=== PATIENT | male | born 1955 | race Two or more races ===

== ENCOUNTER 2016-07-30 01:27 | Inpatient (IN) | payer OTHER ==
[2016-07-30] VITALS (27 sets, daily range): BP systolic 75–140; BP diastolic 45–80
[~2016-07-30] VITALS: Ht 172.7 cm; Wt 68.0 kg
[~2016-07-30 01:27] MED LIST: ACIDOPHILUS1 EAC4 GT; ALBUTEROL2.5 MG/3 M INH; AMANTADINE100 M2 ORAL; AMANTADINE50 MG/5 ML GT; ARTIFICIAL TEAR15 M7 BOTH EYES; ARTIFICIAL TEAR15 ML BOTH EYES; ASCORBIC ACID500 MG GT; ASPIR 8181 MG ORAL; ATROVENT HFA12.9 GM HHN; BISACODYL5 MG ORAL; BISACODYL5 MG RECTAL; COLACE100 MG GT; COLISTIN150 MG INH; DOCUSATE SODIU250 MG GT; DULCOLAX10 MG RC; DUONEB 0.5-3(2.53 ML HHN; FAMOTIDINE20 MG GT; FOLIC ACID1 MG GT; HUMALOG100 UNIT/4 SUBQ; HYDRALAZINE HCL10 MG GT; IMODIUM2 MG GT; INSULIN; INVANZ1 GM IVPB; LACTINEX CHEWA1 EACH GT; LOVENOX10 M4 SUBQ; MEROPENEM500 MG IV; METFORMIN HCL500 M1 GT; MIDODRINE HCL10 MG GT; MILK OF MA400 MG/51 GT; MILK OF MA400 MG/51 ORAL; MIRALAX17 G2 GT; MIRALAX17 GM ORAL; MULTI-DELYN237 ML GT; MYLANTA30 M1 GT; NORCO 10-325 T1 EACH GT; NORCO 10/3251 EA ORAL; NORVASC5 MG GT; NOVOLOG100 UNITS1 SUBQ; OMEPRAZOLE20 M3 GT; OSTERA TABLET1 EACH GT; PERIDEX 0.12% O16 OZ MT; POTASSIUM CHLO20 ME3 GT; PREDNISONE20 MG GT; RESTORIL15 MG ORAL; SIMVASTATIN40 MG GT; TRAMADOL HCL50 MG GT; TYLENOL EXTRA500 MG GT; TYLENOL325 MG GT; TYLENOL650 MG/20. ORAL; UTI-STAT L3875 MG/31 GT; VANCOMYCIN1 GM/2502 IVPB; VANCOMYCIN250 MG/5 M ORAL; VITAMIN B-1100 MG GT; VITAMIN C500 M1 GT; VITAMIN C500 M1 ORAL; VITAMIN D1000 UNI1 GT; ZANTAC150 MG GT; ZINC SULFATE220 M1 GT; ZOVIRAX400 MG ORAL
[2016-07-30] MEDS ORDERED: LORAZEPAM2 MG ORAL (01:40)
[2016-07-30] MEDS ORDERED: ASPIR 8181 MG ORAL (01:40)
[2016-07-30] MEDS ORDERED: POTASSIUM30 MEQ/22. GT (01:40)
[2016-07-30] MEDS ORDERED: SIMVASTATIN40 MG ORAL (01:40)
[2016-07-30] MEDS ORDERED: ZOFRAN4 M3 ORAL (01:40)
[2016-07-30] MEDS ORDERED: NS 1000ml 1,600 ML IVLG ONE (01:45)
[2016-07-30] MEDS ORDERED: Aztreonam Inj 1 GM in NS 55 ML IV ONE (01:45)
[2016-07-30 02:10] LABS: MEAN CORPUSCULAR HEMOGLOBIN 27.8 PG (27.0-31.0); MEAN CORPUSCULAR HGB CONC 31.9 G/DL (32.0-36.0); MEAN CORPUSCULAR VOLUME 87 FL (80-99); MEAN PLATELET VOLUME 10.2 FL (6.5-10.1); PLATELET COUNT 319 K/UL (150-450); RED BLOOD COUNT 4.39 M/UL (4.70-6.10); RED CELL DISTRIBUTION WIDTH 14.2 % (11.6-14.8)
[2016-07-30 02:16] LABS: WHITE BLOOD COUNT 32.2 K/UL (4.8-10.8)
[2016-07-30 02:17] LABS: INR 1.5 (0.9-1.1); PROTHROMBIN TIME 15.7 SEC (9.30-11.50)
[2016-07-30 02:23] LABS: ALANINE AMINOTRANSFERASE 28 U/L (3-41); ALBUMIN/GLOBULIN RATIO 0.6 (1.0-2.7); ANION GAP 22 (5-15); ASPARTATE AMINO TRANSFERASE 42 U/L (5-40); CALCIUM 8.7 mg/dL (8.6-10.2); CARBON DIOXIDE 20 mEQ/L (20-30); CHLORIDE 93 mEQ/L (98-107); CREATININE 0.9 mg/dL (0.7-1.2); GLOMERULAR FILTRATION RATE > 60 mL/min (>60); HEMOLYSIS 3; LIPASE 24 U/L (< 60); POTASSIUM 2.8 mEQ/L (3.4-4.9); SODIUM 135 mEQ/L (135-145); TOTAL PROTEIN 7.2 g/dL (6.6-8.7)
[2016-07-30 02:28] LABS: REFLEX LACTIC ACID YES OR NO YES
[2016-07-30 02:38] LABS: TROPONIN I < 0.30 ng/mL (<=0.30)
[2016-07-30 03:14] LABS: APPEARANCE,URINE CLEAR; KETONES,URINE NEGATIVE (NEGATIVE); LEUKOCYTE ESTERASE ,URINE 1+ (NEGATIVE); NITRITE,URINE NEGATIVE (NEGATIVE); PH,URINE 7 (4.5-8.0); PROTEIN,URINE NEGATIVE (NEGATIVE); UROBILINOGEN,URINE NORMAL MG/DL (0.0-1.0)
[2016-07-30 03:20] LABS: BACTERIA,URINE MODERATE /HPF; CALCIUM OXALATE CRYSTALS,UR MODERATE /LPF; SQUAMOUS EPITHELIAL CELL,UR MODERATE /LPF (NONE/OCC)
[2016-07-30 03:25] LABS: BAND NEUTROPHILS % (MANUAL) 29 % (0-8); LYMPHOCYTES % (MANUAL) 11 % (20-45); NEUTROPHILS % (MANUAL) 58 % (45-75); TOTAL CELLS COUNTED 100
[2016-07-30 03:26] LABS: BASOPHILS % (MANUAL) 0 % (0-2); EOSINOPHILS % (MANUAL) 0 % (0-3); PLATELET ESTIMATE ADEQUATE; PLATELET MORPHOLOGY NORMAL
[2016-07-30] MEDS ORDERED: DOPamine 400mg/250ml 250 ML IV SCH (03:45)
[2016-07-30 04:07] LABS: CKMB 1.4 ng/mL (< 6.7)
--- NOTE | 2016-07-30 04:10 | Emergency Room Report ---
History of Present Illness General Chief Complaint: Fever Source: Medical Record, EMS Present Illness HPI Patient presents from nursing facility with complaints of cough And abnormal workup In route they received a phone call that the patient had become more hypotensive and appeared to be in respiratory distress Patient has multiple comorbidities, is on a tracheostomy and vent dependent At this time the patient is not verbal History of present illness is significantly limited No reports of any vomiting or diarrhea patient appears to have reports of abnormal chest x-ray in the file Unknown regarding fever Unknown regarding vomiting or diarrhea Allergies: Coded Allergies: OXYTETRACYCLINE (Unverified Allergy, Unknown, 09/05/13) PENICILLINS (Unverified Allergy, Unknown, 09/05/13) Uncoded Allergies: PLASTIC TAPE (Allergy, Mild, ITCHINESS, 08/08/15) Patient History Limited by: medical condition Past Medical History: see triage record Pertinent Family History: unable to obtain Reviewed Nursing Documentation: PMH: Agreed, PSxH: Agreed Nursing Documentation-PMH Past Medical History: No History, Except For Hx Hypertension: Yes Hx COPD: Yes - Trach, Vent dependent Hx Diabetes: Yes - DM2, foot ulcers Hx Cancer: No Hx Gastrointestinal Problems: Yes - GERD Hx Dialysis: No - ESRD Hx Transient Ischemic Attacks: Yes Hx Dementia: Yes Hx Parkinson's Disease: Yes Review of Systems All Other Systems: negative except mentioned in HPI Physical Exam Vital Signs Date Time Temp Pulse Resp B/P Pulse Ox O2 Delivery O2 Flow Rate FiO2 07/30/16 01:13 100.0 113 12 65/43 92 Mechanical Ventilator 07/30/16 01:30 60 Sp02 EP Interpretation: reviewed, abnormal - 92% is a low oxygenation, on 100% FiO2 the patient is saturating at 98% which is normal General Appearance: mild distress Head: normocephalic, atraumatic Eyes: bilateral eye PERRL ENT: dry mucus membranes Neck: supple, other - Tracheostomy in place no crepitus Respiratory: crackles - Crackles diffusely mild retractions are noted, Cardiovascular #1: tachycardia Gastrointestinal: soft, no mass, other - Feeding tube in place Musculoskeletal: other - Patient is contracted, muscle exam is difficult to obtain Neurologic: other - Patient is responsive to physical stimuli otherwise nonverbal not following commands, Skin: other - Rash in both inguinal areas, also he rash noted Lymphatic: no adenopathy Procedures Central Line Central Line : Consent: Emergent Central Line Lumen: triple Maximal Sterile Barrier Tech: yes cap, yes mask, yes sterile gown, yes sterile gloves, yes large sterile sheet, yes hand hygiene, yes chlorhexidine prep Central Line Postion: femoral (R) Anesthesia: Lidocaine cc's of anesthesia: 2 Complications: none Central Line Post Position: sutured Attempts: One Patient Tolerated: Well Complications: None Medical Decision Making Diagnostic Impression: Primary Impression: Severe sepsis Additional Impressions: UTI (urinary tract infection) Pneumonia ER Course Patient has findings of fever, hypotension and high white blood cell count meeting criteria for severe sepsis Aggressive IV hydration with antibiotic coverage is performed Patient required central line placement please refer to her know that At this time patient remains critical chest x-ray does show significant infiltrate on the left side And patient admitted in critical condition to the ICU Admitting physician was notified upon arrival Labs Test 07/30/16 01:50 07/30/16 02:58 07/30/16 03:10 White Blood Count 32.2 K/UL (4.8-10.8) Red Blood Count 4.39 M/UL (4.70-6.10) Hemoglobin 12.2 G/DL (14.2-18.0) Hematocrit 38.3 % (42.0-52.0) Mean Corpuscular Volume 87 FL (80-99) Mean Corpuscular Hemoglobin 27.8 PG (27.0-31.0) Mean Corpuscular Hemoglobin Concent 31.9 G/DL (32.0-36.0) Red Cell Distribution Width 14.2 % (11.6-14.8) Platelet Count 319 K/UL (150-450) Mean Platelet Volume 10.2 FL (6.5-10.1) Neutrophils (%) (Auto) % (45.0-75.0) Lymphocytes (%) (Auto) % (20.0-45.0) Monocytes (%) (Auto) % (1.0-10.0) Eosinophils (%) (Auto) % (0.0-3.0) Basophils (%) (Auto) % (0.0-2.0) Differential Total Cells Counted 100 Neutrophils % (Manual) 58 % (45-75) Lymphocytes % (Manual) 11 % (20-45) Monocytes % (Manual) 2 % (1-10) Eosinophils % (Manual) 0 % (0-3) Basophils % (Manual) 0 % (0-2) Band Neutrophils 29 % (0-8) Platelet Estimate Adequate Platelet Morphology Normal Red Blood Cell Morphology Normal Prothrombin Time 15.7 SEC (9.30-11.50) Prothromb Time International Ratio 1.5 (0.9-1.1) Activated Partial Thromboplast Time 34 SEC (23-33) Sodium Level 135 mEQ/L (135-145) Potassium Level 2.8 mEQ/L (3.4-4.9) Chloride Level 93 mEQ/L (98-107) Carbon Dioxide Level 20 mEQ/L (20-30) Anion Gap 22 (5-15) Blood Urea Nitrogen 16 mg/dL (7-23) Creatinine 0.9 mg/dL (0.7-1.2) Estimat Glomerular Filtration Rate > 60 mL/min (>60) Glucose Level 137 mg/dL (74-106) Lactic Acid Level 5.00 mmol/L (0.66-2.22) 3.40 mmol/L (0.66-2.22) Calcium Level 8.7 mg/dL (8.6-10.2) Total Bilirubin 0.6 mg/dL (0.0-1.2) Aspartate Amino Transf (AST/SGOT) 42 U/L (5-40) Alanine Aminotransferase (ALT/SGPT) 28 U/L (3-41) Alkaline Phosphatase 415 U/L (40-129) Total Creatine Kinase 39 U/L (38-174) Creatine Kinase MB 1.4 ng/mL (< 6.7) Creatine Kinase MB Relative Index 3.5 Troponin I < 0.30 ng/mL (<=0.30) Pro-B-Type Natriuretic Peptide 1187 pg/mL (0-125) Total Protein 7.2 g/dL (6.6-8.7) Albumin 2.9 g/dL (3.5-5.2) Globulin 4.3 g/dL Albumin/Globulin Ratio 0.6 (1.0-2.7) Lipase 24 U/L (< 60) Urine Color Pale yellow Urine Appearance Clear Urine pH 7 (4.5-8.0) Urine Specific [place] 1.005 (1.005-1.035) Urine Protein Negative (NEGATIVE) Urine Glucose (UA) Negative (NEGATIVE) Urine Ketones Negative (NEGATIVE) Urine Occult Blood 2+ (NEGATIVE) Urine Nitrite Negative (NEGATIVE) Urine Bilirubin Negative (NEGATIVE) Urine Urobilinogen Normal MG/DL (0.0-1.0) Urine Leukocyte Esterase 1+ (NEGATIVE) Urine RBC 2-4 /HPF (0 - 0) Urine WBC 2-4 /HPF (0 - 0) Urine Squamous Epithelial Cells Moderate /LPF (NONE/OCC) Urine Calcium Oxalate Crystals Moderate /LPF (NONE) Urine Bacteria Moderate /HPF (NONE) Rhythm Strip Diag. Results EP Interpretation: yes Rate: 88 Rhythm: NSR, no PVC's, no ectopy Chest X-Ray Diagnostic Results EP Interpretation: Yes Findings: no pneumothorax, other - Left-sided infiltrate, heart size normal Number of Views: 1 Last Vital Signs Date Time Temp Pulse Resp B/P Pulse Ox O2 Delivery O2 Flow Rate FiO2 07/30/16 03:45 92/55 07/30/16 02:43 100.0 89 19 99 Mechanical Ventilator 60 Status: improved Disposition: ADMITTED INPATIENT Condition: Critical Referrals: ESTEFANY RUBI (PCP) KAVITA BARNES D.O. July 30, 2016 04:10
[2016-07-30] MEDS ORDERED: Vancomycin 1 GM in D5W 275 ML IVPB SCH ×2 (06:45→10:45)
[2016-07-30] MEDS ORDERED: Albuterol ud Inhalation HHN PRN (07:30)
[2016-07-30] MEDS ORDERED: Vancomycin 750mg/D5W 275ml IVPB ONE ×2 (08:00)
[2016-07-30 08:04] LABS: MEAN CORPUSCULAR HEMOGLOBIN 28.3 PG (27.0-31.0); MEAN CORPUSCULAR HGB CONC 32.3 G/DL (32.0-36.0); MEAN CORPUSCULAR VOLUME 88 FL (80-99); MEAN PLATELET VOLUME 8.2 FL (6.5-10.1); PLATELET COUNT 245 K/UL (150-450); RED BLOOD COUNT 3.87 M/UL (4.70-6.10)
[2016-07-30 08:08] LABS: WHITE BLOOD COUNT 29.4 K/UL (4.8-10.8)
[2016-07-30 08:16] LABS: ALANINE AMINOTRANSFERASE 23 U/L (3-41); ALBUMIN/GLOBULIN RATIO 0.7 (1.0-2.7); ANION GAP 16 (5-15); ASPARTATE AMINO TRANSFERASE 36 U/L (5-40); CALCIUM 7.5 mg/dL (8.6-10.2); CARBON DIOXIDE 20 mEQ/L (20-30); CHLORIDE 107 mEQ/L (98-107); CREATININE 0.7 mg/dL (0.7-1.2); GLOMERULAR FILTRATION RATE > 60 mL/min (>60); HEMOLYSIS 15; POTASSIUM 2.9 mEQ/L (3.4-4.9); SODIUM 143 mEQ/L (135-145); TOTAL PROTEIN 5.7 g/dL (6.6-8.7)
[2016-07-30 08:23] LABS: THYROID STIMULATING HORMONE 0.601 uIU/mL (0.300-4.500)
[2016-07-30] MEDS ORDERED: Amantadine 100mg cap ORAL ONE (08:30)
[2016-07-30] MEDS: KCl 10% 40mEq/30ml liquid GT SCH (08:45)
[2016-07-30] MEDS: Midodrine 10mg tab GT SCH ×3 (08:45→17:34)
[2016-07-30] MEDS: D5 1/2NS 1,000 ML IV SCH ×2 (08:52→17:47)
[2016-07-30] MEDS ORDERED: Aspirin Baby 81mg ORAL SCH (09:00)
[2016-07-30] MEDS ORDERED: Docusate 100mg cap ORAL SCH (09:00)
[2016-07-30] MEDS ORDERED: Aspirin Baby 81mg GT SCH (09:22)
[2016-07-30] MEDS: Docusate 100mg/10ml Liq GT SCH (09:30)
[2016-07-30] MEDS ORDERED: LORazepam 1mg tab GT ONE (09:30)
[2016-07-30] MEDS ORDERED: Milk of Magnesia 30ml Ud GT ONE (09:30)
[2016-07-30] MEDS ORDERED: LORazepam 1mg tab ORAL PRN (10:15)
[2016-07-30 10:22] LABS: BAND NEUTROPHILS % (MANUAL) 13 % (0-8); BASOPHILS % (MANUAL) 0 % (0-2); EOSINOPHILS % (MANUAL) 0 % (0-3); LYMPHOCYTES % (MANUAL) 5 % (20-45); NEUTROPHILS % (MANUAL) 79 % (45-75); PLATELET ESTIMATE ADEQUATE; PLATELET MORPHOLOGY NORMAL; TOTAL CELLS COUNTED 100
[2016-07-30] MEDS: Thiamine 100mg tab GT SCH (10:37)
[2016-07-30] MEDS ORDERED: Amikacin Rx to dose MISC PRN (10:45)
--- NOTE | 2016-07-30 10:53 | Pulmonolgy Critical Care Note ---
Critical Care - Asmt/Plan Problems: (1) Respiratory failure, acute and chronic (2) Pneumonia (3) Feeding by G-tube (4) Tracheostomy in place (5) History of CVA (cerebrovascular accident) Respiratory: monitor respiratory rate, adjust FIO2, CXR Cardiac: continue to monitor HR/BP Renal: F/U I&O Infectious Disease: check cultures, continue antibiotics Gastrointestinal: continue feedings/current rate Endocrine: monitor blood sugar, continue sliding scale insulin Hematologic: monitor H/H, transfuse if hgb<8.5 Neurologic: PRN Ativan, PRN Morphine, keep patient comfortable Affect: PRN ativan Prophylaxis: Protonix, Heparin Notes Reviewed: pinion and wheel truer, cardio, renal Discussed with: nurses, consultants, showcase trimmershopping centre manager - Objective Last 24 Hour Vital Signs Date Time Temp Pulse Resp B/P Pulse Ox O2 Delivery O2 Flow Rate FiO2 07/30/16 10:15 76 14 96/68 99 Endotracheal Tube 40 07/30/16 10:00 74 15 95/66 99 Endotracheal Tube 40 07/30/16 09:45 72 14 95/66 99 Endotracheal Tube 40 07/30/16 09:30 74 14 93/60 98 Endotracheal Tube 40 07/30/16 09:15 76 13 76/54 96 Endotracheal Tube 40 07/30/16 09:00 79 45 87/58 98 Endotracheal Tube 40 07/30/16 08:45 80 14 90/45 97 Endotracheal Tube 40 07/30/16 08:38 97.4 87 25 110/65 100 Mechanical Ventilator 40 07/30/16 08:30 84 20 88/60 98 Endotracheal Tube 40 07/30/16 08:30 91 18 40 07/30/16 08:15 97.1 92 20 95/57 Endotracheal Tube 40 07/30/16 08:00 40 07/30/16 08:00 83 07/30/16 06:38 88 17 40 07/30/16 05:13 90 27 40 07/30/16 05:07 97.4 87 18 107/64 100 Mechanical Ventilator 40 07/30/16 03:45 92/55 07/30/16 03:45 92/55 07/30/16 03:30 75/53 07/30/16 03:30 92 30 60 07/30/16 02:43 100.0 89 19 88/56 99 Mechanical Ventilator 60 07/30/16 01:46 112 34 35 5/10/17 01:30 100.0 101 22 76/55 95 Mechanical Ventilator 60 07/30/16 01:30 60 07/30/16 01:13 100.0 113 12 65/43 92 Mechanical Ventilator Status: awake Condition: critical Neck: full ROM Lungs: clear Heart: HR/BP stable, HR/BP unstable, regular Abdomen: non-tender, feeding tube Extremities: no C/C/E, edema Accucheck: 120 Critical Care - Subjective ROS Limited/Unobtainable: Yes ICU Day: 1 Intubation Day: 1 Interval Events: 61 year old male with hx of chronic trach/vent/peg presented from nursing facility with complaints of cough and fever. His cxr showed LLL infiltrate. His wbc was high as well. FI02: 40 Vent Support Breath Rate: 12 Vent Support Mode: AC Vent Tidal Volume: 600 Sputum Amount: Scant PIP: 34 I&O: Intake and Output 07/29/16 07/30/16 19:00 07:00 Intake Total 1655 ml Balance 1655 ml Intake Oral 0 ml IV Total 1655 ml CXR: LLL infiltrate Labs: Laboratory Tests Test 07/30/16 01:50 07/30/16 02:58 07/30/16 03:10 07/30/16 05:00 White Blood Count 32.2 K/UL (4.8-10.8) *H Red Blood Count 4.39 M/UL (4.70-6.10) L Hemoglobin 12.2 G/DL (14.2-18.0) L Hematocrit 38.3 % (42.0-52.0) L Mean Corpuscular Volume 87 FL (80-99) Mean Corpuscular Hemoglobin 27.8 PG (27.0-31.0) Mean Corpuscular Hemoglobin Concent 31.9 G/DL (32.0-36.0) L Red Cell Distribution Width 14.2 % (11.6-14.8) Platelet Count 319 K/UL (150-450) Mean Platelet Volume 10.2 FL (6.5-10.1) H Neutrophils (%) (Auto) % (45.0-75.0) Lymphocytes (%) (Auto) % (20.0-45.0) Monocytes (%) (Auto) % (1.0-10.0) Eosinophils (%) (Auto) % (0.0-3.0) Basophils (%) (Auto) % (0.0-2.0) Differential Total Cells Counted 100 Neutrophils % (Manual) 58 % (45-75) Lymphocytes % (Manual) 11 % (20-45) L Monocytes % (Manual) 2 % (1-10) Eosinophils % (Manual) 0 % (0-3) Basophils % (Manual) 0 % (0-2) Band Neutrophils 29 % (0-8) H Platelet Estimate Adequate Platelet Morphology Normal Red Blood Cell Morphology Normal Prothrombin Time 15.7 SEC (9.30-11.50) H Prothromb Time International Ratio 1.5 (0.9-1.1) H Activated Partial Thromboplast Time 34 SEC (23-33) H Sodium Level 135 mEQ/L (135-145) Potassium Level 2.8 mEQ/L (3.4-4.9) L Chloride Level 93 mEQ/L (98-107) L Carbon Dioxide Level 20 mEQ/L (20-30) Anion Gap 22 (5-15) H Blood Urea Nitrogen 16 mg/dL (7-23) Creatinine 0.9 mg/dL (0.7-1.2) Estimat Glomerular Filtration Rate > 60 mL/min (>60) Glucose Level 137 mg/dL (74-106) H Lactic Acid Level 5.00 mmol/L (0.66-2.22) H 3.40 mmol/L (0.66-2.22) H 1.90 mmol/L (0.66-2.22) Calcium Level 8.7 mg/dL (8.6-10.2) Total Bilirubin 0.6 mg/dL (0.0-1.2) Aspartate Amino Transf (AST/SGOT) 42 U/L (5-40) H Alanine Aminotransferase (ALT/SGPT) 28 U/L (3-41) Alkaline Phosphatase 415 U/L (40-129) H Total Creatine Kinase 39 U/L (38-174) Creatine Kinase MB 1.4 ng/mL (< 6.7) Creatine Kinase MB Relative Index 3.5 Troponin I < 0.30 ng/mL (<=0.30) Pro-B-Type Natriuretic Peptide 1187 pg/mL (0-125) H Total Protein 7.2 g/dL (6.6-8.7) Albumin 2.9 g/dL (3.5-5.2) L Globulin 4.3 g/dL Albumin/Globulin Ratio 0.6 (1.0-2.7) L Lipase 24 U/L (< 60) Urine Color Pale yellow Urine Appearance Clear Urine pH 7 (4.5-8.0) Urine Specific [place] 1.005 (1.005-1.035) Urine Protein Negative (NEGATIVE) Urine Glucose (UA) Negative (NEGATIVE) Urine Ketones Negative (NEGATIVE) Urine Occult Blood 2+ (NEGATIVE) H Urine Nitrite Negative (NEGATIVE) Urine Bilirubin Negative (NEGATIVE) Urine Urobilinogen Normal MG/DL (0.0-1.0) Urine Leukocyte Esterase 1+ (NEGATIVE) H Urine RBC 2-4 /HPF (0 - 0) H Urine WBC 2-4 /HPF (0 - 0) Urine Squamous Epithelial Cells Moderate /LPF (NONE/OCC) H Urine Calcium Oxalate Crystals Moderate /LPF (NONE) Urine Bacteria Moderate /HPF (NONE) H Test 07/30/16 06:31 07/30/16 07:58 White Blood Count 29.4 K/UL (4.8-10.8) *H Red Blood Count 3.87 M/UL (4.70-6.10) L Hemoglobin 11.0 G/DL (14.2-18.0) L Hematocrit 33.9 % (42.0-52.0) L Mean Corpuscular Volume 88 FL (80-99) Mean Corpuscular Hemoglobin 28.3 PG (27.0-31.0) Mean Corpuscular Hemoglobin Concent 32.3 G/DL (32.0-36.0) Red Cell Distribution Width 14.0 % (11.6-14.8) Platelet Count 245 K/UL (150-450) Mean Platelet Volume 8.2 FL (6.5-10.1) Neutrophils (%) (Auto) % (45.0-75.0) Lymphocytes (%) (Auto) % (20.0-45.0) Monocytes (%) (Auto) % (1.0-10.0) Eosinophils (%) (Auto) % (0.0-3.0) Basophils (%) (Auto) % (0.0-2.0) Differential Total Cells Counted 100 Neutrophils % (Manual) 79 % (45-75) H Lymphocytes % (Manual) 5 % (20-45) L Monocytes % (Manual) 3 % (1-10) Eosinophils % (Manual) 0 % (0-3) Basophils % (Manual) 0 % (0-2) Band Neutrophils 13 % (0-8) H Platelet Estimate Adequate Platelet Morphology Normal Red Blood Cell Morphology Normal Sodium Level 143 mEQ/L (135-145) Potassium Level 2.9 mEQ/L (3.4-4.9) L Chloride Level 107 mEQ/L (98-107) Carbon Dioxide Level 20 mEQ/L (20-30) Anion Gap 16 (5-15) H Blood Urea Nitrogen 14 mg/dL (7-23) Creatinine 0.7 mg/dL (0.7-1.2) Estimat Glomerular Filtration Rate > 60 mL/min (>60) Glucose Level 116 mg/dL (74-106) H Calcium Level 7.5 mg/dL (8.6-10.2) L Total Bilirubin 0.4 mg/dL (0.0-1.2) Aspartate Amino Transf (AST/SGOT) 36 U/L (5-40) Alanine Aminotransferase (ALT/SGPT) 23 U/L (3-41) Alkaline Phosphatase 337 U/L (40-129) H Total Protein 5.7 g/dL (6.6-8.7) L Albumin 2.4 g/dL (3.5-5.2) L Globulin 3.3 g/dL Albumin/Globulin Ratio 0.7 (1.0-2.7) L Thyroid Stimulating Hormone (TSH) 0.601 uIU/mL (0.300-4.500) Free Thyroxine 1.31 ng/dL (0.86-1.85) ALBANIA CRAMER July 30, 2016 10:53
--- NOTE | 2016-07-30 11:11 | Diagnostic Imaging Report ---
Indication: Chest Pain Comparison: 11/18/15 A single view chest radiograph was obtained. Findings: There is infiltrate at the left lung base. Heart is normal in size. Lung volumes are low. Tracheostomy noted. Dilated bowel noted within the upper abdomen which was noted previously also. Impression: Suspicion of pneumonia at the left lung base
[2016-07-30] MEDS: Pantoprazole Inj IVP SCH (11:33)
[2016-07-30] MEDS ORDERED: Amikacin 1,000 MG in NS 110 ML IV SCH (13:00)
[2016-07-30] MEDS: DOPamine 400mg/250ml 250 ML IV SCH (13:30)
[2016-07-30] MEDS: Aztreonam Inj 1 GM in NS 55 ML IVPB SCH ×2 (15:01→22:44)
--- NOTE | 2016-07-30 16:37 | Wound Care Consultation ---
Wound Assessment Wound Assessment #1: Wound Present on Admission: Yes New Wound: No Status Change of Wound: No Wound Location Body Site Modif: mid Wound Type: pressure ulcer Abhishek Test: Does not Abhishek Pressure Ulcer Stage: deep tissue injury - and full thickness scar tissue Wound Thickness: Full Thickness Wound Length: 6.5 Wound Width: 6.5 Wound Depth: utd Percent of Wound [place]/Red: 40 Percent of Wound Purple/Maroon: 60 Wound Drainage Amount: None Wound Drainage Odor: None/Absent Tissue Surrounding Wound: Erythemic Wound General Appearance: Reddened Wound Assessment #2: Wound Number: #2 Wound Present on Admission: Yes New Wound: No Status Change of Wound: No Wound Location Body Site: perineal area Wound Type: chemical burn Abhishek Test: Does not Abhishek Percent of Wound [place]/Red: 100 Wound Drainage Amount: None Wound Drainage Odor: None/Absent Tissue Surrounding Wound: Erythemic Wound General Appearance: Reddened Wound Comment #1 Sacral DTI with full thickness scar tissue pressure ulcer #2 Perineal chemical burn Recommendation -Keep clean and dry -Turn and reposition -Local wound care per protocol for DTI and chemical burn -Optimize nutrition -Offload both heels -Heel protector on both heels -Low air loss overlay mattress -Assess and f/u accordingly for any changes SCOOBY FIORE RN July 30, 2016 16:37
--- NOTE | 2016-07-30 17:08 | Cardiology Report ---
APPROVED REPORT EKG Measurement Heart [id number] Normal sinus rhythm Inferior infarct, age undetermined Abnormal ECG
[2016-07-30] MEDS: Vancomycin 1 GM in D5W 275 ML IVPB SCH (17:34)
[2016-07-30] MEDS ORDERED: Vancomycin 500mg/D5W 110ml IVPB SCH ×2 (20:00)
[2016-07-30] MEDS: Heparin 5000 units/ml inj SUBQ SCH (21:14)
--- NOTE | 2016-07-30 22:13 | Consultation ---
MARCELLA MA M.D. July 30, 2016 22:13
--- NOTE | 2016-07-30 22:39 | History and Physical Report ---
DATE OF ADMISSION: 07/30/2016 This is one of several admissions to [facility] of this 61-year-old patient because of sepsis. HISTORY OF PRESENT ILLNESS: The patient is a resident of an extended care facility subacute unit where he has been in stable condition over the last several months. He is known to have several chronic medical syndromes that will be described in the following paragraph, but has been stable on his current medications. He developed fever, tachycardia, congestion, and malaise and was treated with ceftriaxone 1 g IV piggyback q.24 hours. His condition deteriorated. He was transferred to [facility] emergency room where he was found to have in addition to fever, a left lower lobe pneumonia and 32,000 WBC and the patient was admitted. PAST MEDICAL HISTORY: Several years ago, the patient had cerebral hemorrhage following which he developed respiratory failure. He had to be intubated and placed on mechanical ventilation. He failed to be weaned, underwent tracheostomy and gastrostomy, and sent to [facility] where he has been in the last several years. MEDICATIONS: The patient is on heparin sodium 5000 units subcutaneously and clotrimazole cream to the groin area. He is on pantoprazole 40 mg IV push q.24 hours. He is on lorazepam 2 mg b.i.d. to q.i.d. p.r.n. for agitation. He is on multiple motility disorder laxatives that includes magnesium hydroxide, docusate sodium, Dulcolax, Fleet enema, and polyethylene glycol. He is on thiamine 100 mg daily, aspirin 81 mg daily, midodrine 10 mg t.i.d. p.r.n., potassium chloride 40 mg via G-tube daily, amantadine 100 mg daily, and albuterol sulfate ipratropium bromide inhalation therapy every four hours, and ondansetron 4 mg IV push q.4 hours p.r.n. for nausea and vomiting. ALLERGIES: The patient is allergic to tetracycline, penicillin, and plastic tape. SOCIAL HISTORY: He is . He was born in [place]. He has been in [place] for many years. 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 HABITS: The patient does not smoke, drink, or use illicit drugs. FAMILY HISTORY: Noncontributory. REVIEW OF SYSTEMS: The patient is not able to give any information regarding his state of health. PHYSICAL EXAMINATION: VITAL SIGNS: Blood pressure was 98/56, pulse was 89, respiration rate 19, and temperature was 100 degrees. HEENT: Eyes were normal. Pupils were round, equal, and reactive to light. Sclerae was white. Conjunctiva was pale. Extraocular movement could not be assessed. Temporal arteries were palpable bilaterally. There was bilateral temporal wasting. Visual donaldson to confrontation. Neglect sign could not be assessed. ENT, mucous membranes were not dehydrated. Auditory canals were clear and tympanic membranes could not be visualized. Nasal cavity was not congested. Nasal septum was intact. Soft palate. Pharynx and uvula could not be visualized. Tongue was dry, midline, and normally papillated. NECK: Supple. There was no goiter. No mass. No lymphadenopathy. There was no jugular venous distention. No bruits. Carotid upstroke was 2+. LUNGS: Reveals bilateral rhonchi at both bases, more on the left than on the right. HEART: PMI was in the fourth left intercostal space in midclavicular line. There was normal S1 and normal S2. There was no murmur. No arrhythmia. No S3. No S4. No pericardial rub. ABDOMEN: Soft and nontender without organomegaly. There were no masses palpable. Normal bowel sounds without bruits. There was no guarding. No rebound tenderness. No ascites. No hernia. No CVA tenderness. Liver span was 8 cm, smooth, and nontender. EXTREMITIES: No cyanosis, no clubbing, and no edema. Extremities were warm. NEUROLOGIC: Reflexes in biceps, triceps, and brachioradialis were present. Patellar retinaculum were present. Plantar were in extension bilaterally. Cranial nerves from II through XII were symmetric and equal. Cerebellar function, there was no tremor. No nystagmus. Extrapyramidal rigidity was difficult to assess because of the patient contraction and stiffness. Sensory exam to pinprick, cotton touch, position, and motor strength could not be assessed as well because of the patient's clinical status. LABORATORY DATA: Hemoglobin is 12.2, hematocrit 38.3 with MCV of 87, WBC of 32.2, and platelets of 319,000. His BUN and creatinine is 14 and 0.7 respectively. Sodium is 143, potassium 3.9, chloride 107, and CO2 is 20. His lactic acid was 1.9. SGOT and SGPT were normal. Alkaline phosphatase was 337. Albumin was 2.4. Total protein is 5.7. Troponin was undetected. TSH and T4 were normal. His urinalysis showed negative nitrite and 1+ leukocyte esterase. Urine RBC was 2 to 4 per high-power field. Urine WBC was 2 to 4. Bacteria were moderate. Chest x-ray showed left lower lobe infiltrate. IMPRESSION AND PLAN: The patient's condition deteriorated and the patient was transferred to the intensive care unit. Because of drop in blood pressure, he was placed on dopamine drip. Pulmonary domestic travel consultant has seen the patient already. The patient was placed on vancomycin 1 g IV piggyback q.12, aztreonam 1 g IV piggyback q.8, amikacin 5 mg/kg q.24 hours, and levofloxacin 750 mg IV piggyback q.24 hours. Repeat laboratory tests will be done in the morning. Boris Arevalo M.D. DR: CAMILLE JOB#: [id number] CC:
--- NOTE | 2016-07-30 23:42 | Consultation ---
Consult Note Assessment/Plan ID Dic # [id number] ASSESSMENT: 61 y/o male with: // Leukocytosis // Low grade fever // Hx of Pneumotosis intestinalis // HCAP / VAP // Sacral decubitis ulcer POA, not grossly infected // Severe sepsis // Elevated AlkPh ( Chronic ) // Chronic VDRF s/p trach, PEG // Hx of CT evidence of prior granulomatous disease // MDRO colonized // Negative HIV, hepatitis panel // PCN, TCA allergies - tolerated carbapenems // Full Code PLAN: - continue empiric IV Vanco , Cefepime, Amikacin d# 2 - f/u cultures, ( Bl, Ur ,Sp ) - monitor CBC - monitor CMP - C Diff - vent support, trach care, aspiration precautions - contact isolation thank you MARCELLA MA M.D. July 30, 2016 23:42
[2016-07-31] VITALS (24 sets, daily range): BP systolic 103–156; BP diastolic 69–92
--- NOTE | 2016-07-31 03:48 | Consultation ---
DATE OF CONSULTATION: INFECTIOUS DISEASES CONSULTATION CONSULTING PHYSICIAN: Avni Castillo M.D. REFERRING PHYSICIAN: Sagar Rudd M.D. REASON FOR CONSULTATION: Evaluation of the patient for sepsis and antibiotic management. HISTORY OF PRESENT ILLNESS: The patient is a 61-year-old male with multiple medical problems, who has been admitted to this medical center due to sepsis, cough, probable pneumonia, and respiratory distress. The patient currently has been admitted in the ICU, and Infectious Disease consultation has been requested for further evaluation of the patient and antibiotic management. PAST MEDICAL HISTORY: Significant for: 1. History of pneumatosis intestinalis. 2. History of recurrent UTI. 3. History of multiple drug-resistant organism bacteremia. 4. Sacral decubitus. 5. Transaminitis. 6. History of ventilator-dependent respiratory failure. 7. Status post PEG and trach placements. ALLERGIES: Penicillin and plastic tape. MEDICATIONS: Vancomycin, , and amikacin. FAMILY HISTORY: Not contributory. REVIEW OF SYSTEMS: Unobtainable. PHYSICAL EXAMINATION: VITAL SIGNS: Temperature 98, blood pressure 140/80, pulse 82, respiratory rate 18, and T-max 100. HEENT: Mild pale conjunctiva. No icterus. NECK: No lymphadenopathy. CHEST: Coarse breathing sounds. HEART: S1 and S2. ABDOMEN: Soft. EXTREMITIES: No cyanosis at this time. NEUROLOGIC: Nonverbal. LABORATORY AND DIAGNOSTIC DATA: White blood cells 29, hemoglobin 11, and platelets 245,000. UA, 2 to 4 white blood cells. Blood type is from the last year negative. HIV test as of two years ago negative. BUN 4 and creatinine 0.6. ALT and AST are unremarkable. Alkaline phosphatase 337 (chronic). Chest x-, left lung base pneumonia. ASSESSMENT: The patient is a 61-year-old male with multiple medical problems, who has been admitted to this medical center for sepsis, possible left lung infiltrate, and ventilator associated pneumonia. The patient has elevated white blood cells possibility of . PLAN: 1. We will continue the patient on IV vancomycin, cefepime, and amikacin on day #1. 2. Monitor CBC. 3. Monitor BNP. 4. Monitor cultures (sputum, urine, and blood). 5. Stool for C. diff. 6. Monitor chest x-ray. 7. Continue ventilator support. Based on the patient's clinical course and labs, we will do further recommendations. Thank you, Dr. Rudd, for this consultation. I will follow the patient with you during this hospitalization. Avni Castillo M.D. DR: THOMAS JOB#: [id number] CC:
[2016-07-31 04:54] LABS: BASOPHILS % (AUTO) 0.5 % (0.0-2.0); LYMPHOCYTES % (AUTO) 17.1 % (20.0-45.0); MEAN CORPUSCULAR VOLUME 88 FL (80-99); MEAN PLATELET VOLUME 9.2 FL (6.5-10.1); MONOCYTES % (AUTO) 5.5 % (1.0-10.0); PLATELET COUNT 257 K/UL (150-450); RED BLOOD COUNT 3.92 M/UL (4.70-6.10); RED CELL DISTRIBUTION WIDTH 14.2 % (11.6-14.8); WHITE BLOOD COUNT 13.6 K/UL (4.8-10.8)
[2016-07-31 05:37] LABS: ALANINE AMINOTRANSFERASE 23 U/L (3-41); ALBUMIN/GLOBULIN RATIO 0.6 (1.0-2.7); ANION GAP 14 (5-15); ASPARTATE AMINO TRANSFERASE 29 U/L (5-40); CALCIUM 8.8 mg/dL (8.6-10.2); CARBON DIOXIDE 25 mEQ/L (20-30); CHLORIDE 102 mEQ/L (98-107); CREATININE 0.6 mg/dL (0.7-1.2); GLOMERULAR FILTRATION RATE > 60 mL/min (>60); HEMOLYSIS 2; MAGNESIUM 1.8 mg/dL (1.7-2.5); PHOSPHORUS 2.1 mg/dL (2.5-4.8); SODIUM 141 mEQ/L (135-145); TOTAL PROTEIN 6.4 g/dL (6.6-8.7)
[2016-07-31] MEDS: D5 1/2NS 1,000 ML IV SCH (05:50)
[2016-07-31] MEDS: Vancomycin 1 GM in D5W 275 ML IVPB SCH (05:50)
[2016-07-31] MEDS: Aztreonam Inj 1 GM in NS 55 ML IVPB SCH ×3 (05:50→22:01)
[2016-07-31] MEDS: Midodrine 10mg tab GT SCH ×3 (08:50→17:56)
[2016-07-31] MEDS: Pantoprazole Inj IVP SCH (08:50)
[2016-07-31] MEDS: Thiamine 100mg tab GT SCH (08:50)
[2016-07-31] MEDS: KCl 10% 40mEq/30ml liquid GT SCH (08:50)
[2016-07-31] MEDS: Docusate 100mg/10ml Liq GT SCH (08:52)
[2016-07-31] MEDS: Heparin 5000 units/ml inj SUBQ SCH ×2 (08:53→21:07)
[2016-07-31] MEDS ORDERED: Tubing IV Secondary IV ONE (09:30)
[2016-07-31] MEDS ORDERED: D5 1/2NS 1000ml IV ONE (09:30)
[2016-07-31 09:59] LABS: ABG ALLEN TEST POSITIVE; ABG BASE EXCESS 0.06
--- NOTE | 2016-07-31 10:10 | Pulmonolgy Critical Care Note ---
Critical Care - Asmt/Plan Problems: (1) Respiratory failure, acute and chronic (2) Pneumonia (3) Feeding by G-tube (4) Tracheostomy in place (5) History of CVA (cerebrovascular accident) Respiratory: monitor respiratory rate, adjust FIO2, CXR Cardiac: continue to monitor HR/BP Renal: F/U I&O, decrease IV fluid, check electrolytes, other - K and phos supplement Infectious Disease: check cultures, continue antibiotics Gastrointestinal: continue feedings/current rate Endocrine: monitor blood sugar, start insulin drip, continue sliding scale insulin Hematologic: monitor H/H, transfuse if hgb<8.5 Neurologic: PRN Ativan, PRN Morphine Affect: PRN ativan Prophylaxis: Protonix Disposition: keep in ICU Notes Reviewed: bushing and broach operator, cardio, renal Discussed with: nurses, consultants, clinical case managerfood concession manager - Objective Last 24 Hour Vital Signs Date Time Temp Pulse Resp B/P Pulse Ox O2 Delivery O2 Flow Rate FiO2 07/31/16 10:00 73 14 138/82 96 Mechanical Ventilator 40 07/31/16 09:00 80 18 123/80 97 Mechanical Ventilator 40 07/31/16 08:54 84 20 40 07/31/16 08:00 98.8 85 20 130/79 97 Mechanical Ventilator 40 07/31/16 08:00 68 07/31/16 08:00 40 07/31/16 07:02 79 18 40 07/31/16 07:00 79 17 116/75 97 Mechanical Ventilator 40 07/31/16 06:00 70 17 103/69 97 Mechanical Ventilator 40 07/31/16 05:10 76 18 40 07/31/16 05:00 68 14 114/71 97 Mechanical Ventilator 40 07/31/16 04:00 83 07/31/16 04:00 99.0 83 22 131/83 96 Mechanical Ventilator 40 07/31/16 04:00 40 07/31/16 03:07 70 13 40 07/31/16 03:00 79 22 122/74 99 Mechanical Ventilator 40 07/31/16 02:00 74 14 126/79 97 Mechanical Ventilator 40 07/31/16 01:00 76 15 120/78 96 Mechanical Ventilator 40 07/31/16 00:55 77 14 40 07/31/16 00:00 40 07/31/16 00:00 73 07/31/16 00:00 98.9 73 13 128/77 98 Mechanical Ventilator 40 07/30/16 23:00 74 14 124/76 97 Mechanical Ventilator 40 07/30/16 22:40 77 15 40 07/30/16 22:00 77 20 107/72 98 Mechanical Ventilator 40 07/30/16 21:00 69 13 132/74 98 Mechanical Ventilator 40 07/30/16 20:47 84 21 40 07/30/16 20:00 68 07/30/16 20:00 40 07/30/16 20:00 98.7 68 13 121/78 98 Mechanical Ventilator 40 07/30/16 19:00 84 13 140/80 96 Endotracheal Tube 40 07/30/16 19:00 82 17 40 07/30/16 18:00 66 13 116/71 98 Endotracheal Tube 40 07/30/16 17:06 82 25 40 07/30/16 17:00 73 15 116/71 98 Endotracheal Tube 40 07/30/16 16:05 78 14 40 07/30/16 16:00 96 07/30/16 16:00 98.2 76 14 93/65 95 Endotracheal Tube 40 07/30/16 16:00 40 07/30/16 15:00 93 19 139/73 94 Endotracheal Tube 40 07/30/16 14:00 71 15 92/62 99 Endotracheal Tube 40 07/30/16 13:30 95/66 07/30/16 13:04 70 14 40 07/30/16 13:00 72 16 94/68 99 Endotracheal Tube 40 07/30/16 12:00 71 07/30/16 12:00 40 07/30/16 12:00 97.3 76 15 94/67 99 Endotracheal Tube 40 07/30/16 11:00 71 17 104/69 99 Endotracheal Tube 40 07/30/16 10:35 85 20 40 07/30/16 10:15 76 14 96/68 99 Endotracheal Tube 40 Status: obtunded Condition: critical HEENT: atraumatic Neck: full ROM Lungs: rales, rhonchi Heart: HR/BP stable Abdomen: soft, non-tender, feeding tube Extremities: no C/C/E, edema Micro: Microbiology Date/Time Source Procedure Growth Status 07/30/16 01:50 Blood Blood Culture - Preliminary NO GROWTH AFTER 24 HOURS Resulted 07/30/16 01:35 Blood Blood Culture - Preliminary NO GROWTH AFTER 24 HOURS Resulted Accucheck: 120 Critical Care - Subjective ROS Limited/Unobtainable: Yes ICU Day: 3 Condition: critical, improving EKG Rhythm: Sinus Rhythm FI02: 40 Vent Support Breath Rate: 12 Vent Support Mode: AC Vent Tidal Volume: 600 Sputum Amount: Moderate PIP: 20 Fluids: d5 1/2 ns 100 cc.hour Tube Feeding Amount: 55 I&O: Intake and Output 07/30/16 07/31/16 19:00 07:00 Intake Total 1714 ml 1995 ml Output Total 660 ml 500 ml Balance 1054 ml 1495 ml Free Water 100 ml 100 ml IV Total 1444 ml 1310 ml Tube Feeding 80 ml 585 ml Other 90 ml Output Urine Total 660 ml 500 ml # Bowel Movements 3 CXR: LLL infiltrate Labs: Laboratory Tests Test 07/31/16 01:00 07/31/16 04:00 07/31/16 09:45 Random Amikacin Level 2.2 ug/mL White Blood Count 13.6 K/UL (4.8-10.8) #H Red Blood Count 3.92 M/UL (4.70-6.10) L Hemoglobin 11.0 G/DL (14.2-18.0) L Hematocrit 34.3 % (42.0-52.0) L Mean Corpuscular Volume 88 FL (80-99) Mean Corpuscular Hemoglobin 28.0 PG (27.0-31.0) Mean Corpuscular Hemoglobin Concent 32.0 G/DL (32.0-36.0) Red Cell Distribution Width 14.2 % (11.6-14.8) Platelet Count 257 K/UL (150-450) Mean Platelet Volume 9.2 FL (6.5-10.1) Neutrophils (%) (Auto) 75.0 % (45.0-75.0) Lymphocytes (%) (Auto) 17.1 % (20.0-45.0) L Monocytes (%) (Auto) 5.5 % (1.0-10.0) Eosinophils (%) (Auto) 2.0 % (0.0-3.0) Basophils (%) (Auto) 0.5 % (0.0-2.0) Sodium Level 141 mEQ/L (135-145) Potassium Level 3.0 mEQ/L (3.4-4.9) L Chloride Level 102 mEQ/L (98-107) Carbon Dioxide Level 25 mEQ/L (20-30) Anion Gap 14 (5-15) Blood Urea Nitrogen 10 mg/dL (7-23) Creatinine 0.6 mg/dL (0.7-1.2) L Estimat Glomerular Filtration Rate > 60 mL/min (>60) Glucose Level 125 mg/dL (74-106) H Calcium Level 8.8 mg/dL (8.6-10.2) Phosphorus Level 2.1 mg/dL (2.5-4.8) L Magnesium Level 1.8 mg/dL (1.7-2.5) Total Bilirubin 0.4 mg/dL (0.0-1.2) Aspartate Amino Transf (AST/SGOT) 29 U/L (5-40) Alanine Aminotransferase (ALT/SGPT) 23 U/L (3-41) Alkaline Phosphatase 328 U/L (40-129) H Total Protein 6.4 g/dL (6.6-8.7) L Albumin 2.6 g/dL (3.5-5.2) L Globulin 3.8 g/dL Albumin/Globulin Ratio 0.6 (1.0-2.7) L Arterial Blood pH 7.470 (7.350-7.450) Arterial Blood Partial Pressure CO2 34.0 mmHg (35.0-45.0) L Arterial Blood Partial Pressure O2 80.0 mmHg (75.0-100.0) Arterial Blood HCO3 24.0 mmol/L (22.0-26.0) Arterial Blood Oxygen Saturation 96.0 % (92.0-98.0) Arterial Blood Base Excess 0.06 Melvin Test Positive [place] CRAMER July 31, 2016 10:10
[2016-07-31] MEDS ORDERED: Sodium Phosphate 30 MM in NS 275 ML IV ONE (11:30)
--- NOTE | 2016-07-31 12:48 | Infectious Diseases Prog Note ---
Assessment/Plan Assessment/Plan ASSESSMENT: 61 y/o male with: // Leukocytosis improving // Low grade feve, SP r // Hx of Pneumotosis intestinalis // HCAP / VAP // Sacral decubitis ulcer POA, not grossly infected // Severe sepsis , off of pressors // Elevated AlkPh ( Chronic ) // Chronic VDRF s/p trach, PEG // Hx of CT evidence of prior granulomatous disease // MDRO colonized // Negative HIV, hepatitis panel // PCN, TCA allergies - tolerated carbapenems // Full Code PLAN: - continue empiric IV Vanco , Azactam , Levaquin , DC Amikacin d# 2 - f/u cultures, ( Bl, Ur ,Sp ) - monitor CBC - monitor CMP - C Diff : P - vent support, trach care, aspiration precautions - contact isolation Subjective Allergies: Coded Allergies: OXYTETRACYCLINE (Unverified Allergy, Unknown, 09/05/13) PENICILLINS (Unverified Allergy, Unknown, 09/05/13) Uncoded Allergies: PLASTIC TAPE (Allergy, Mild, ITCHINESS, 08/08/15) Subjective non verbal Objective Vital Signs Last 24 Hour Vital Signs Date Time Temp Pulse Resp B/P Pulse Ox O2 Delivery O2 Flow Rate FiO2 07/31/16 12:00 98.1 68 16 141/87 96 Mechanical Ventilator 40 07/31/16 12:00 84 07/31/16 12:00 40 07/31/16 11:00 79 19 147/87 98 Mechanical Ventilator 40 07/31/16 10:40 95 28 40 07/31/16 10:00 73 14 138/82 96 Mechanical Ventilator 40 07/31/16 09:00 80 18 123/80 97 Mechanical Ventilator 40 07/31/16 08:54 84 20 40 07/31/16 08:00 98.8 85 20 130/79 97 Mechanical Ventilator 40 07/31/16 08:00 68 07/31/16 08:00 40 07/31/16 07:02 79 18 40 07/31/16 07:00 79 17 116/75 97 Mechanical Ventilator 40 07/31/16 06:00 70 17 103/69 97 Mechanical Ventilator 40 07/31/16 05:10 76 18 40 07/31/16 05:00 68 14 114/71 97 Mechanical Ventilator 40 07/31/16 04:00 83 07/31/16 04:00 99.0 83 22 131/83 96 Mechanical Ventilator 40 07/31/16 04:00 40 07/31/16 03:07 70 13 40 07/31/16 03:00 79 22 122/74 99 Mechanical Ventilator 40 07/31/16 02:00 74 14 126/79 97 Mechanical Ventilator 40 07/31/16 01:00 76 15 120/78 96 Mechanical Ventilator 40 07/31/16 00:55 77 14 40 07/31/16 00:00 40 07/31/16 00:00 73 07/31/16 00:00 98.9 73 13 128/77 98 Mechanical Ventilator 40 07/30/16 23:00 74 14 124/76 97 Mechanical Ventilator 40 07/30/16 22:40 77 15 40 07/30/16 22:00 77 20 107/72 98 Mechanical Ventilator 40 07/30/16 21:00 69 13 132/74 98 Mechanical Ventilator 40 07/30/16 20:47 84 21 40 07/30/16 20:00 68 07/30/16 20:00 40 07/30/16 20:00 98.7 68 13 121/78 98 Mechanical Ventilator 40 07/30/16 19:00 84 13 140/80 96 Endotracheal Tube 40 07/30/16 19:00 82 17 40 07/30/16 18:00 66 13 116/71 98 Endotracheal Tube 40 07/30/16 17:06 82 25 40 07/30/16 17:00 73 15 116/71 98 Endotracheal Tube 40 07/30/16 16:05 78 14 40 07/30/16 16:00 96 07/30/16 16:00 98.2 76 14 93/65 95 Endotracheal Tube 40 07/30/16 16:00 40 07/30/16 15:00 93 19 139/73 94 Endotracheal Tube 40 07/30/16 14:00 71 15 92/62 99 Endotracheal Tube 40 07/30/16 13:30 95/66 07/30/16 13:04 70 14 40 07/30/16 13:00 72 16 94/68 99 Endotracheal Tube 40 Height (Feet): 5 Height (Inches): 8.00 Weight (Pounds): 150 HEENT: anicteric Respiratory/Chest: no respiratory distress Cardiovascular: regular rhythm Abdomen: no organomegaly Microbiology Date/Time Source Procedure Growth Status 07/30/16 01:50 Blood Blood Culture - Preliminary NO GROWTH AFTER 24 HOURS Resulted 07/30/16 01:35 Blood Blood Culture - Preliminary NO GROWTH AFTER 24 HOURS Resulted 07/30/16 11:00 Sputum Gram Stain - Final Resulted 07/30/16 11:00 Sputum Sputum Culture Pending Resulted 07/30/16 02:58 Urine,Clean Catch Urine Culture - Preliminary Resulted Laboratory Tests Test 07/31/16 01:00 07/31/16 04:00 07/31/16 09:45 Random Amikacin Level 2.2 ug/mL White Blood Count 13.6 K/UL (4.8-10.8) #H Red Blood Count 3.92 M/UL (4.70-6.10) L Hemoglobin 11.0 G/DL (14.2-18.0) L Hematocrit 34.3 % (42.0-52.0) L Mean Corpuscular Volume 88 FL (80-99) Mean Corpuscular Hemoglobin 28.0 PG (27.0-31.0) Mean Corpuscular Hemoglobin Concent 32.0 G/DL (32.0-36.0) Red Cell Distribution Width 14.2 % (11.6-14.8) Platelet Count 257 K/UL (150-450) Mean Platelet Volume 9.2 FL (6.5-10.1) Neutrophils (%) (Auto) 75.0 % (45.0-75.0) Lymphocytes (%) (Auto) 17.1 % (20.0-45.0) L Monocytes (%) (Auto) 5.5 % (1.0-10.0) Eosinophils (%) (Auto) 2.0 % (0.0-3.0) Basophils (%) (Auto) 0.5 % (0.0-2.0) Sodium Level 141 mEQ/L (135-145) Potassium Level 3.0 mEQ/L (3.4-4.9) L Chloride Level 102 mEQ/L (98-107) Carbon Dioxide Level 25 mEQ/L (20-30) Anion Gap 14 (5-15) Blood Urea Nitrogen 10 mg/dL (7-23) Creatinine 0.6 mg/dL (0.7-1.2) L Estimat Glomerular Filtration Rate > 60 mL/min (>60) Glucose Level 125 mg/dL (74-106) H Calcium Level 8.8 mg/dL (8.6-10.2) Phosphorus Level 2.1 mg/dL (2.5-4.8) L Magnesium Level 1.8 mg/dL (1.7-2.5) Total Bilirubin 0.4 mg/dL (0.0-1.2) Aspartate Amino Transf (AST/SGOT) 29 U/L (5-40) Alanine Aminotransferase (ALT/SGPT) 23 U/L (3-41) Alkaline Phosphatase 328 U/L (40-129) H Total Protein 6.4 g/dL (6.6-8.7) L Albumin 2.6 g/dL (3.5-5.2) L Globulin 3.8 g/dL Albumin/Globulin Ratio 0.6 (1.0-2.7) L Arterial Blood pH 7.470 (7.350-7.450) Arterial Blood Partial Pressure CO2 34.0 mmHg (35.0-45.0) L Arterial Blood Partial Pressure O2 80.0 mmHg (75.0-100.0) Arterial Blood HCO3 24.0 mmol/L (22.0-26.0) Arterial Blood Oxygen Saturation 96.0 % (92.0-98.0) Arterial Blood Base Excess 0.06 Melvin Test Positive Current Medications Medications (Trade) Dose Ordered Sig/Sima Route PRN Reason Start Time Stop Time Status Last Admin Dose Admin Albuterol Sulfate (Proventil) 2.5 mg Q3H PRN HHN Shortness of Breath 07/30/16 07:30 08/04/16 07:29 Amikacin Protocol 1 ea 1 ea DAILY PRN MISC Per rx protocol 07/30/16 10:45 08/29/16 10:44 Amikacin Sulfate 1000 mg/Sodium Chloride 114 ml @ 220 mls/hr Q24H IV 07/30/16 13:00 08/06/16 12:59 07/30/16 13:40 Aztreonam 1 gm/ Sodium Chloride 55 ml @ 110 mls/hr EVERY 8 HOURS IVPB 07/30/16 14:00 08/06/16 13:59 07/31/16 05:50 Clotrimazole 1 applic 1 applic EVERY 12 HOURS TOPIC 07/30/16 21:00 08/29/16 20:59 07/31/16 08:52 Docusate Sodium (Colace) 100 mg DAILY GT 07/30/16 09:30 08/29/16 09:29 Dopamine HCl/ Dextrose (DOPamine 400mg/ 250ml) 250 ml @ 0 mls/hr Q24H IV 07/30/16 13:30 08/29/16 13:29 Heparin Sodium (Porcine) (Heparin 5000 units/ml) 5,000 units EVERY 12 HOURS SUBQ 07/30/16 21:00 08/29/16 20:59 07/31/16 08:53 Levofloxacin (Levaquin) 100 ml @ 100 mls/hr Q24H IVPB 07/30/16 12:00 08/06/16 11:59 07/31/16 11:42 Lorazepam (Ativan) 2 mg QIDPRN PRN ORAL For Anxiety 07/30/16 10:15 08/06/16 10:14 Midodrine (Pro-Amatine) 10 mg THREE TIMES A DAY GT 07/30/16 09:00 08/29/16 08:59 07/31/16 08:50 Ondansetron HCl (Zofran) 4 mg Q6H PRN IVP Nausea & Vomiting 07/30/16 07:30 08/29/16 07:29 Pantoprazole (Protonix) 40 mg DAILY IVP 07/30/16 11:30 08/29/16 11:29 07/31/16 08:50 Potassium Chloride (KCl 10% 40mEq Oral solution) 40 meq DAILY GT 07/30/16 09:00 08/29/16 08:59 07/31/16 08:50 Potassium Chloride (KCl 20mEq/100ml Premix) 100 ml @ 50 mls/hr ONCE ONCE IVPB 07/31/16 11:00 07/31/16 12:59 07/31/16 10:27 Sodium Phosphate 30 mm/Sodium Chloride 285 ml @ 47.5 mls/hr ONCE ONCE IV 07/31/16 11:30 07/31/16 17:29 07/31/16 11:42 Vancomycin HCl 1 ea 1 ea DAILY PRN MISC . 07/30/16 10:45 08/29/16 10:44 Vancomycin HCl 1 gm/Dextrose 275 ml @ 183.333 mls/hr Q12HR@0600,1800 IVPB 07/30/16 18:00 08/04/16 17:59 07/31/16 05:50 MARCELLA MA M.D. July 31, 2016 12:48
[2016-07-31] MEDS: DOPamine 400mg/250ml 250 ML IV SCH (13:20)
--- NOTE | 2016-07-31 14:15 | Diagnostic Imaging Report ---
Indication: Dyspnea Comparison: 1017 A single view chest radiograph was obtained. Findings: Basilar densities again demonstrated, particularly on the left side. Small effusions may be present. Heart size remains normal. Tracheostomy again noted. Impression: Infiltrate suspected at the left lung base. Possible small bilateral pleural effusions.
[2016-07-31] MEDS: Vancomycin 1.25 GM in D5W 275 ML IVPB SCH (21:05)
[2016-08-01] VITALS (25 sets, daily range): BP systolic 111–144; BP diastolic 79–96
--- NOTE | 2016-08-01 05:08 | Progress Note ---
DATE: 07/31/2016 SUBJECTIVE: The patient is awake. Eyes are open. There is no eye contact. obtunded. His respiratory rate 20 to 25. PHYSICAL EXAMINATION: VITAL SIGNS: Blood pressure 141/91, pulse 98, respiration now 24, and temperature 98.6 degrees. Repeat temperature was 99.3 degrees. HEENT: Eyes were normal. ENT, mucous membranes were moist and intact. NECK: Supple. No JVD without lymph nodes. Tracheostomy site is clean. LUNGS: Clear without rhonchi, rales, or wheezing. Secretions are small, thin, and hilton. HEART: Normal sounds with regular beats. There is no S3, S4, or pericardial rub. ABDOMEN: Soft and nontender with normal bowel sounds. Gastrostomy site is clean. EXTREMITIES: Warm without cyanosis, clubbing, or edema. LABORATORY AND DIAGNOSTIC DATA: His hemoglobin is 11.0, hematocrit 34.3, MCV 88, WBC 13.6, and platelet 257,000. His WBC yesterday was 29.4000. His BUN and creatinine is 10 and 0.6 respectively. Sodium is 141, potassium 3.0, chloride 102, CO2 25, and glucose 125. His calcium is 8.8. His alkaline phosphatase is 329. His BNP 1041. His albumin is 2.3. His total protein is 6.4. His glucose is 125. Chest x-ray suspect left lower lobe infiltrate and small bilateral pleural effusion. IMPRESSION: The patient has been off Levophed now for more than 14 hours. He has a low-grade fever, but hemodynamically stable. Stool for C. diff negative. Sputum culture is pending. Urine culture was not available and blood cultures are negative as well. The patient currently is on vancomycin mg IV piggyback q.12 hours. He is on aztreonam 1 g IV piggyback q.8 hours. His amikacin sulfate 1 g IV piggyback q.24 hours has been discontinued. levofloxacin 500 mg IV piggyback q. 24 hours. Repeat laboratory tests will be done in the a.m. Boris Arevalo M.D. DR: Merlin JOB#: [id number] CC:
[2016-08-01 05:31] LABS: BASOPHILS % (AUTO) 0.7 % (0.0-2.0); EOSINOPHILS % (AUTO) 3.1 % (0.0-3.0); LYMPHOCYTES % (AUTO) 18.7 % (20.0-45.0); MEAN CORPUSCULAR HEMOGLOBIN 28.5 PG (27.0-31.0); MEAN CORPUSCULAR HGB CONC 33.3 G/DL (32.0-36.0); MEAN CORPUSCULAR VOLUME 86 FL (80-99); MEAN PLATELET VOLUME 9.5 FL (6.5-10.1); MONOCYTES % (AUTO) 6.1 % (1.0-10.0); NEUTROPHILS % (AUTO) 71.4 % (45.0-75.0); PLATELET COUNT 275 K/UL (150-450); RED BLOOD COUNT 4.04 M/UL (4.70-6.10); RED CELL DISTRIBUTION WIDTH 13.9 % (11.6-14.8)
[2016-08-01 05:49] LABS: ALANINE AMINOTRANSFERASE 35 U/L (3-41); ALBUMIN/GLOBULIN RATIO 0.6 (1.0-2.7); ANION GAP 15 (5-15); ASPARTATE AMINO TRANSFERASE 56 U/L (5-40); CALCIUM 8.9 mg/dL (8.6-10.2); CARBON DIOXIDE 26 mEQ/L (20-30); CHLORIDE 100 mEQ/L (98-107); CREATININE 0.6 mg/dL (0.7-1.2); GLOMERULAR FILTRATION RATE > 60 mL/min (>60); HEMOLYSIS 1; MAGNESIUM 1.8 mg/dL (1.7-2.5); PHOSPHORUS 3.8 mg/dL (2.5-4.8); SODIUM 141 mEQ/L (135-145); TOTAL PROTEIN 7.2 g/dL (6.6-8.7)
[2016-08-01] MEDS: Aztreonam Inj 1 GM in NS 55 ML IVPB SCH ×3 (05:57→22:28)
[2016-08-01] MEDS: KCl 10% 40mEq/30ml liquid GT SCH (08:50)
[2016-08-01] MEDS: Pantoprazole Inj IVP SCH (08:50)
[2016-08-01] MEDS: Midodrine 10mg tab GT SCH ×3 (08:51→18:00)
[2016-08-01] MEDS: Vancomycin 1.25 GM in D5W 275 ML IVPB SCH ×2 (08:51→21:00)
[2016-08-01] MEDS: Docusate 100mg/10ml Liq GT SCH (08:51)
[2016-08-01] MEDS: Heparin 5000 units/ml inj SUBQ SCH ×2 (08:56→21:02)
--- NOTE | 2016-08-01 10:34 | Pulmonolgy Critical Care Note ---
Critical Care - Asmt/Plan Problems: (1) Respiratory failure, acute and chronic (2) Pneumonia (3) Feeding by G-tube (4) Tracheostomy in place (5) History of CVA (cerebrovascular accident) Respiratory: monitor respiratory rate, adjust FIO2, CXR Cardiac: continue to monitor HR/BP Renal: F/U I&O, keep IV fluid, check electrolytes Infectious Disease: check cultures Gastrointestinal: continue feedings/current rate Endocrine: monitor blood sugar, check TSH, continue sliding scale insulin Hematologic: transfuse if hgb<8.5 Neurologic: PRN Ativan, PRN Morphine, keep patient comfortable Affect: PRN ativan Prophylaxis: Protonix Notes Reviewed: metal machine operator, cardio Discussed with: nurses, consultants, major case detectivecredit risk manager - Objective Last 24 Hour Vital Signs Date Time Temp Pulse Resp B/P Pulse Ox O2 Delivery O2 Flow Rate FiO2 08/01/16 09:05 98 23 40 08/01/16 09:00 91 20 143/85 97 Mechanical Ventilator 40 08/01/16 08:00 90 08/01/16 08:00 40 08/01/16 08:00 99.2 88 17 126/86 97 Mechanical Ventilator 40 08/01/16 07:05 88 18 40 08/01/16 07:00 90 17 124/84 98 Mechanical Ventilator 40 08/01/16 06:00 88 17 123/85 98 Mechanical Ventilator 40 08/01/16 05:22 89 15 40 08/01/16 05:00 99 19 124/82 100 Mechanical Ventilator 40 08/01/16 04:00 89 08/01/16 04:00 40 08/01/16 04:00 98.8 89 22 135/91 97 Mechanical Ventilator 40 08/01/16 03:00 88 19 142/92 98 Mechanical Ventilator 40 08/01/16 02:38 89 23 40 08/01/16 02:00 88 19 144/90 98 Mechanical Ventilator 40 08/01/16 01:29 90 19 40 08/01/16 01:00 90 19 141/92 95 Mechanical Ventilator 40 08/01/16 00:00 92 08/01/16 00:00 40 08/01/16 00:00 98.9 92 22 144/93 97 Mechanical Ventilator 40 07/31/16 23:00 98 24 141/91 97 Mechanical Ventilator 40 07/31/16 22:39 92 23 40 07/31/16 22:00 88 21 156/92 98 Mechanical Ventilator 40 07/31/16 21:00 98.8 87 22 146/89 98 Mechanical Ventilator 40 07/31/16 20:46 88 22 40 07/31/16 20:00 40 07/31/16 20:00 99.3 90 19 139/90 97 Mechanical Ventilator 40 07/31/16 20:00 90 07/31/16 19:19 88 22 40 07/31/16 19:00 88 22 142/92 97 Mechanical Ventilator 40 07/31/16 18:00 88 22 145/87 97 Mechanical Ventilator 40 07/31/16 17:00 87 18 143/86 97 Mechanical Ventilator 40 07/31/16 16:44 90 21 40 07/31/16 16:00 40 07/31/16 16:00 98.8 84 19 146/84 97 Mechanical Ventilator 40 07/31/16 16:00 84 07/31/16 15:03 84 18 40 07/31/16 15:00 83 18 143/86 96 Mechanical Ventilator 40 07/31/16 14:00 83 19 133/83 96 Mechanical Ventilator 40 07/31/16 13:20 146/85 07/31/16 13:01 77 15 40 07/31/16 13:00 77 17 146/85 96 Mechanical Ventilator 40 07/31/16 12:00 98.1 68 16 141/87 96 Mechanical Ventilator 40 07/31/16 12:00 84 07/31/16 12:00 40 07/31/16 11:00 79 19 147/87 98 Mechanical Ventilator 40 07/31/16 10:40 95 28 40 Status: awake Condition: critical HEENT: atraumatic Neck: full ROM Lungs: chest wall tender Heart: HR/BP stable, HR/BP unstable Abdomen: soft, non-tender Extremities: edema Decubiti: location Micro: Microbiology Date/Time Source Procedure Growth Status 07/30/16 01:50 Blood Blood Culture - Preliminary NO GROWTH AFTER 48 HOURS Resulted 07/30/16 01:35 Blood Blood Culture - Preliminary NO GROWTH AFTER 48 HOURS Resulted 07/30/16 11:00 Sputum Gram Stain - Final Resulted 07/30/16 11:00 Sputum Sputum Culture Pending Resulted 07/30/16 02:00 Nasal Nares MRSA Culture - Final NO METHICILLIN RESISTANT STAPH AUREUS... Complete 07/30/16 19:00 Stool Clostridium difficile Toxin Assay - Final Complete 07/30/16 02:58 Urine,Clean Catch Urine Culture - Final Mixed Urogenital Contaminants Complete 07/30/16 02:00 Rectum VRE Culture - Final Enterococcus Faecalis - Vre Complete Accucheck: 120 Critical Care - Subjective ROS Limited/Unobtainable: Yes ICU Day: 3 Condition: critical EKG Rhythm: Sinus Rhythm FI02: 40 Vent Support Breath Rate: 12 Vent Support Mode: AC Vent Tidal Volume: 600 Sputum Amount: Moderate PIP: 22 Tube Feeding Amount: 55 I&O: Intake and Output 07/31/16 08/01/16 19:00 07:00 Intake Total 1730.0 ml 1045.000 ml Output Total 75 ml 1615 ml Balance 1655.0 ml -570.000 ml Free Water 200 ml IV Total 845.0 ml 385.000 ml Tube Feeding 660 ml 660 ml Other 25 ml Output Urine Total 75 ml 1615 ml # Voids 1 # Bowel Movements 2 1 CXR: bilateral infiltrate Labs: Laboratory Tests Test 07/31/16 16:52 08/01/16 04:00 Vancomycin Level Trough 13.0 ug/mL (5.0-12.0) H White Blood Count 12.0 K/UL (4.8-10.8) H Red Blood Count 4.04 M/UL (4.70-6.10) L Hemoglobin 11.5 G/DL (14.2-18.0) L Hematocrit 34.6 % (42.0-52.0) L Mean Corpuscular Volume 86 FL (80-99) Mean Corpuscular Hemoglobin 28.5 PG (27.0-31.0) Mean Corpuscular Hemoglobin Concent 33.3 G/DL (32.0-36.0) Red Cell Distribution Width 13.9 % (11.6-14.8) Platelet Count 275 K/UL (150-450) Mean Platelet Volume 9.5 FL (6.5-10.1) Neutrophils (%) (Auto) 71.4 % (45.0-75.0) Lymphocytes (%) (Auto) 18.7 % (20.0-45.0) L Monocytes (%) (Auto) 6.1 % (1.0-10.0) Eosinophils (%) (Auto) 3.1 % (0.0-3.0) H Basophils (%) (Auto) 0.7 % (0.0-2.0) Sodium Level 141 mEQ/L (135-145) Potassium Level 3.0 mEQ/L (3.4-4.9) L Chloride Level 100 mEQ/L (98-107) Carbon Dioxide Level 26 mEQ/L (20-30) Anion Gap 15 (5-15) Blood Urea Nitrogen 9 mg/dL (7-23) Creatinine 0.6 mg/dL (0.7-1.2) L Estimat Glomerular Filtration Rate > 60 mL/min (>60) Glucose Level 122 mg/dL (74-106) H Calcium Level 8.9 mg/dL (8.6-10.2) Phosphorus Level 3.8 mg/dL (2.5-4.8) Magnesium Level 1.8 mg/dL (1.7-2.5) Total Bilirubin 0.3 mg/dL (0.0-1.2) Aspartate Amino Transf (AST/SGOT) 56 U/L (5-40) H Alanine Aminotransferase (ALT/SGPT) 35 U/L (3-41) Alkaline Phosphatase 393 U/L (40-129) H Total Protein 7.2 g/dL (6.6-8.7) Albumin 2.9 g/dL (3.5-5.2) L Globulin 4.3 g/dL Albumin/Globulin Ratio 0.6 (1.0-2.7) L [place] CRAMER August 01, 2016 10:34
[2016-08-01] MEDS ORDERED: KCl 10% 40mEq/30ml liquid NG ONE (11:00)
[2016-08-01] MEDS: DOPamine 400mg/250ml 250 ML IV SCH (13:30)
--- NOTE | 2016-08-01 14:18 | Infectious Diseases Prog Note ---
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 Possible small bilateral pleural effusions. // Diarrhea - negative C.difficile - h/o pneumotosis intestinalis // Sacral decubitis ulcer POA, not grossly infected // Severe sepsis SP - off pressors // Leukocytosis - improving // Low grade fever - resolved // Elevated AlkPh ( Chronic ) // Chronic VDRF s/p trach, PEG // Hx of CT evidence of prior granulomatous disease // MDRO colonized // Negative HIV, hepatitis panel // PCN, TCA allergies - tolerated carbapenems // Full Code PLAN: - continue empiric IV Vanco, levaquin, Azactam d# 3 / 5-7 ( 07/31 SP Amikacin d# 2 - f/u cultures, ( Bl, Ur ,Sp ) - monitor CBC - monitor CMP - vent support, trach care, aspiration precautions - contact isolation Subjective Allergies: Coded Allergies: OXYTETRACYCLINE (Unverified Allergy, Unknown, 09/05/13) PENICILLINS (Unverified Allergy, Unknown, 09/05/13) Uncoded Allergies: PLASTIC TAPE (Allergy, Mild, ITCHINESS, 08/08/15) Subjective fevers resolved diarrhea improved Objective Vital Signs Last 24 Hour Vital Signs Date Time Temp Pulse Resp B/P Pulse Ox O2 Delivery O2 Flow Rate FiO2 08/01/16 13:30 118/80 08/01/16 13:00 95 20 118/80 97 Mechanical Ventilator 40 08/01/16 12:00 40 08/01/16 12:00 99.4 94 19 111/79 98 Mechanical Ventilator 40 08/01/16 12:00 92 08/01/16 11:00 93 20 119/84 95 Mechanical Ventilator 40 08/01/16 10:53 95 22 40 08/01/16 10:00 84 21 124/83 97 Mechanical Ventilator 40 08/01/16 09:05 98 23 40 08/01/16 09:00 91 20 143/85 97 Mechanical Ventilator 40 08/01/16 08:00 90 08/01/16 08:00 40 08/01/16 08:00 99.2 88 17 126/86 97 Mechanical Ventilator 40 08/01/16 07:05 88 18 40 08/01/16 07:00 90 17 124/84 98 Mechanical Ventilator 40 08/01/16 06:00 88 17 123/85 98 Mechanical Ventilator 40 08/01/16 05:22 89 15 40 08/01/16 05:00 99 19 124/82 100 Mechanical Ventilator 40 08/01/16 04:00 89 08/01/16 04:00 40 08/01/16 04:00 98.8 89 22 135/91 97 Mechanical Ventilator 40 08/01/16 03:00 88 19 142/92 98 Mechanical Ventilator 40 08/01/16 02:38 89 23 40 08/01/16 02:00 88 19 144/90 98 Mechanical Ventilator 40 08/01/16 01:29 90 19 40 08/01/16 01:00 90 19 141/92 95 Mechanical Ventilator 40 08/01/16 00:00 92 08/01/16 00:00 40 08/01/16 00:00 98.9 92 22 144/93 97 Mechanical Ventilator 40 07/31/16 23:00 98 24 141/91 97 Mechanical Ventilator 40 07/31/16 22:39 92 23 40 07/31/16 22:00 88 21 156/92 98 Mechanical Ventilator 40 07/31/16 21:00 98.8 87 22 146/89 98 Mechanical Ventilator 40 07/31/16 20:46 88 22 40 07/31/16 20:00 40 07/31/16 20:00 99.3 90 19 139/90 97 Mechanical Ventilator 40 07/31/16 20:00 90 07/31/16 19:19 88 22 40 07/31/16 19:00 88 22 142/92 97 Mechanical Ventilator 40 07/31/16 18:00 88 22 145/87 97 Mechanical Ventilator 40 07/31/16 17:00 87 18 143/86 97 Mechanical Ventilator 40 07/31/16 16:44 90 21 40 07/31/16 16:00 40 07/31/16 16:00 98.8 84 19 146/84 97 Mechanical Ventilator 40 07/31/16 16:00 84 07/31/16 15:03 84 18 40 07/31/16 15:00 83 18 143/86 96 Mechanical Ventilator 40 Height (Feet): 5 Height (Inches): 8.00 Weight (Pounds): 150 General Appearance: no acute distress Respiratory/Chest: no respiratory distress Cardiovascular: normal rate, regular rhythm Abdomen: normal bowel sounds, soft, non tender, non distended Microbiology Date/Time Source Procedure Growth Status 07/30/16 01:50 Blood Blood Culture - Preliminary NO GROWTH AFTER 48 HOURS Resulted 07/30/16 01:35 Blood Blood Culture - Preliminary NO GROWTH AFTER 48 HOURS Resulted 07/30/16 11:00 Sputum Gram Stain - Final Resulted 07/30/16 11:00 Sputum Sputum Culture Pending Resulted 07/30/16 02:00 Nasal Nares MRSA Culture - Final NO METHICILLIN RESISTANT STAPH AUREUS... Complete 07/30/16 19:00 Stool Clostridium difficile Toxin Assay - Final Complete 07/30/16 02:58 Urine,Clean Catch Urine Culture - Final Mixed Urogenital Contaminants Complete 07/30/16 02:00 Rectum VRE Culture - Final Enterococcus Faecalis - Vre Complete Laboratory Tests Test 07/31/16 16:52 08/01/16 04:00 Vancomycin Level Trough 13.0 ug/mL (5.0-12.0) H White Blood Count 12.0 K/UL (4.8-10.8) H Red Blood Count 4.04 M/UL (4.70-6.10) L Hemoglobin 11.5 G/DL (14.2-18.0) L Hematocrit 34.6 % (42.0-52.0) L Mean Corpuscular Volume 86 FL (80-99) Mean Corpuscular Hemoglobin 28.5 PG (27.0-31.0) Mean Corpuscular Hemoglobin Concent 33.3 G/DL (32.0-36.0) Red Cell Distribution Width 13.9 % (11.6-14.8) Platelet Count 275 K/UL (150-450) Mean Platelet Volume 9.5 FL (6.5-10.1) Neutrophils (%) (Auto) 71.4 % (45.0-75.0) Lymphocytes (%) (Auto) 18.7 % (20.0-45.0) L Monocytes (%) (Auto) 6.1 % (1.0-10.0) Eosinophils (%) (Auto) 3.1 % (0.0-3.0) H Basophils (%) (Auto) 0.7 % (0.0-2.0) Sodium Level 141 mEQ/L (135-145) Potassium Level 3.0 mEQ/L (3.4-4.9) L Chloride Level 100 mEQ/L (98-107) Carbon Dioxide Level 26 mEQ/L (20-30) Anion Gap 15 (5-15) Blood Urea Nitrogen 9 mg/dL (7-23) Creatinine 0.6 mg/dL (0.7-1.2) L Estimat Glomerular Filtration Rate > 60 mL/min (>60) Glucose Level 122 mg/dL (74-106) H Calcium Level 8.9 mg/dL (8.6-10.2) Phosphorus Level 3.8 mg/dL (2.5-4.8) Magnesium Level 1.8 mg/dL (1.7-2.5) Total Bilirubin 0.3 mg/dL (0.0-1.2) Aspartate Amino Transf (AST/SGOT) 56 U/L (5-40) H Alanine Aminotransferase (ALT/SGPT) 35 U/L (3-41) Alkaline Phosphatase 393 U/L (40-129) H Total Protein 7.2 g/dL (6.6-8.7) Albumin 2.9 g/dL (3.5-5.2) L Globulin 4.3 g/dL Albumin/Globulin Ratio 0.6 (1.0-2.7) L Current Medications Medications (Trade) Dose Ordered Sig/Sima Route PRN Reason Start Time Stop Time Status Last Admin Dose Admin Albuterol Sulfate (Proventil) 2.5 mg Q3H PRN HHN Shortness of Breath 07/30/16 07:30 08/04/16 07:29 Aztreonam 1 gm/ Sodium Chloride 55 ml @ 110 mls/hr EVERY 8 HOURS IVPB 07/30/16 14:00 08/06/16 13:59 08/01/16 05:57 Clotrimazole 1 applic 1 applic EVERY 12 HOURS TOPIC 07/30/16 21:00 08/29/16 20:59 08/01/16 08:51 Docusate Sodium (Colace) 100 mg DAILY GT 07/30/16 09:30 08/29/16 09:29 Dopamine HCl/ Dextrose (DOPamine 400mg/ 250ml) 250 ml @ 0 mls/hr Q24H IV 07/30/16 13:30 08/29/16 13:29 Heparin Sodium (Porcine) (Heparin 5000 units/ml) 5,000 units EVERY 12 HOURS SUBQ 07/30/16 21:00 08/29/16 20:59 08/01/16 08:56 Levofloxacin 100 ml @ 100 mls/hr Q24H IVPB 07/30/16 12:00 08/06/16 11:59 08/01/16 12:27 Lorazepam (Ativan) 2 mg QIDPRN PRN ORAL For Anxiety 07/30/16 10:15 08/06/16 10:14 Midodrine (Pro-Amatine) 10 mg THREE TIMES A DAY GT 07/30/16 09:00 08/29/16 08:59 07/31/16 08:50 Ondansetron HCl (Zofran) 4 mg Q6H PRN IVP Nausea & Vomiting 07/30/16 07:30 08/29/16 07:29 Pantoprazole (Protonix) 40 mg DAILY IVP 07/30/16 11:30 08/29/16 11:29 08/01/16 08:50 Potassium Chloride (KCl 10% 40mEq Oral solution) 40 meq DAILY GT 07/30/16 09:00 08/29/16 08:59 08/01/16 08:50 Vancomycin HCl 1 ea 1 ea DAILY PRN MISC . 07/30/16 10:45 08/29/16 10:44 Vancomycin HCl/ Dextrose (Vancomycin/D5W) 275 ml @ 183.333 mls/hr Q12HR IVPB 07/31/16 21:00 08/05/16 20:59 08/01/16 08:51 NALINI LUNA August 01, 2016 14:18
[2016-08-01] MEDS ORDERED: NS 275ml ONE (19:03)
[2016-08-01] MEDS ORDERED: Tubing IV Secondary IV ONE (19:03)
--- NOTE | 2016-08-02 00:59 | Progress Note ---
DATE: 08/01/2016 SUBJECTIVE: The patient is awake, eyes are open, no eye contact. flexed elbow and wrist express any acute distress. PHYSICAL EXAMINATION: VITAL SIGNS: Blood pressure 137/82, his pulse is 94, respirations were 18, and temperature is 99.4. HEENT: Eyes were normal. ENT, mucous membranes were moist and intact. NECK: Supple with no JVD without lymph nodes. Tracheostomy site is clean. LUNGS: Clear without rhonchi, rales, or wheezing. Secretions are small, thin, and [place]. HEART: Normal sounds with regular beats. There is no S3, S4, or pericardial rub. There is no tachycardia at rest. However, the heart rate is persistently in between 90 and 100. ABDOMEN: Soft and nontender with normal bowel sounds. Gastrostomy site is clean. EXTREMITIES: Warm without cyanosis, clubbing, or edema. LABORATORY AND DIAGNOSTIC DATA: Hemoglobin 11.5, hematocrit is 34.6, MCV of 86, WBC of 12.0, and platelets 275,000. WBC was 13.6 yesterday. His BUN and creatinine is 9 and 0.6 respectively. Sodium is 141, potassium 3.0 chloride 100, CO2 is 26. His calcium is 8.9, phosphorus 3.8, and magnesium is 1.8. SGOT is 56, SGPT is 35, and alkaline phosphatase is 393. His albumin is 2.9. His total protein is 7.2. increased over the last 48 hours as well his total protein. There are no imaging studies available at the time of this dictation. IMPRESSION: The patient's condition has improved off Levophed. He does have low-grade fever and leukocytosis and borderline tachycardia. PLAN: The patient will be transferred to the [facility] unit. Repeat laboratory tests will be done in the a.m. Currently, the patient received already 40 mEq of KCl via G-tube. He is on vancomycin mg IV piggyback q.12 hours. He is on mg IV piggyback q.8 hours. He is on levofloxacin 500 mg IV piggyback every 24 hours. Repeat laboratory tests will be done in the a.m. Boris Arevalo M.D. DR: KAUSHIK JOB#: [id number] CC:
[2016-08-02] MEDS ORDERED: Albuterol ud Inhalation HHN PRN (01:30)
[2016-08-02 04:00] VITALS: BP 125/84
[2016-08-02] MEDS: Aztreonam Inj 1 GM in NS 55 ML IVPB SCH ×3 (05:17→21:55)
[2016-08-02 06:29] LABS: APPEARANCE,URINE CLEAR; KETONES,URINE NEGATIVE (NEGATIVE); LEUKOCYTE ESTERASE ,URINE NEGATIVE (NEGATIVE); NITRITE,URINE NEGATIVE (NEGATIVE); PH,URINE 7 (4.5-8.0); PROTEIN,URINE NEGATIVE (NEGATIVE); UROBILINOGEN,URINE NORMAL MG/DL (0.0-1.0)
[2016-08-02 06:33] LABS: ALANINE AMINOTRANSFERASE 34 U/L (3-41); ALBUMIN/GLOBULIN RATIO 0.6 (1.0-2.7); ANION GAP 13 (5-15); ASPARTATE AMINO TRANSFERASE 49 U/L (5-40); CALCIUM 8.7 mg/dL (8.6-10.2); CARBON DIOXIDE 26 mEQ/L (20-30); CHLORIDE 96 mEQ/L (98-107); CREATININE 0.5 mg/dL (0.7-1.2); GLOMERULAR FILTRATION RATE > 60 mL/min (>60); HEMOLYSIS 0; POTASSIUM 3.4 mEQ/L (3.4-4.9); SODIUM 135 mEQ/L (135-145); TOTAL PROTEIN 7.3 g/dL (6.6-8.7)
[2016-08-02 08:00] VITALS: BP 137/95
[2016-08-02] MEDS ORDERED: Pantoprazole Inj IVP SCH (09:00)
[2016-08-02 09:36] LABS: BACTERIA,URINE OCCASIONAL /HPF; RBC,URINE 0 /HPF (0 - 0); SQUAMOUS EPITHELIAL CELL,UR OCCASIONAL /LPF (NONE/OCC); WBC,URINE 0-2 /HPF (0 - 0)
[2016-08-02 09:43] LABS: BASOPHILS % (AUTO) 0.6 % (0.0-2.0); EOSINOPHILS % (AUTO) 2.7 % (0.0-3.0); MEAN CORPUSCULAR HEMOGLOBIN 27.6 PG (27.0-31.0); MEAN CORPUSCULAR VOLUME 86 FL (80-99); MEAN PLATELET VOLUME 8.4 FL (6.5-10.1); NEUTROPHILS % (AUTO) 64.8 % (45.0-75.0); PLATELET COUNT 298 K/UL (150-450); RED BLOOD COUNT 4.26 M/UL (4.70-6.10); RED CELL DISTRIBUTION WIDTH 13.9 % (11.6-14.8); WHITE BLOOD COUNT 10.4 K/UL (4.8-10.8)
[2016-08-02] MEDS: Vancomycin 1.25 GM in D5W 275 ML IVPB SCH ×2 (10:10→21:51)
[2016-08-02] MEDS: KCl 10% 40mEq/30ml liquid GT SCH (10:10)
[2016-08-02] MEDS: Midodrine 10mg tab GT SCH ×3 (10:11→18:37)
[2016-08-02] MEDS: Docusate 100mg/10ml Liq GT SCH (10:11)
[2016-08-02] MEDS ORDERED: LORazepam 1mg tab ORAL PRN (10:15)
[2016-08-02] MEDS: Heparin 5000 units/ml inj SUBQ SCH ×2 (10:21→21:53)
[2016-08-02 12:00] VITALS: BP 119/75
--- NOTE | 2016-08-02 12:57 | Pulmonology Progress Note ---
Assessment/Plan Problems: (1) Respiratory failure, acute and chronic (2) Severe sepsis (3) Fever (4) Pneumonia (5) Pleural effusion (6) Feeding by G-tube (7) History of CVA (cerebrovascular accident) Respiratory: monitor respiratory rate, adjust FIO2 Cardiac: continue to monitor HR/BP Renal: F/U I&O, keep IV fluid Infectious Disease: check cultures Gastrointestinal: continue feedings/current rate, hold feedings Endocrine: monitor blood sugar Hematologic: monitor H/H Neurologic: PRN Ativan, PRN Morphine Affect: PRN ativan Prophylaxis: Protonix, Heparin Notes Reviewed: centerpuncher, cardio Discussed with: nurses, consultants, case supervisor Subjective ROS Limited/Unobtainable: No Constitutional: Reports: no symptoms HEENT: Repors: no symptoms Respiratory: Reports: no symptoms Allergies: Coded Allergies: OXYTETRACYCLINE (Unverified Allergy, Unknown, 09/05/13) PENICILLINS (Unverified Allergy, Unknown, 09/05/13) Uncoded Allergies: PLASTIC TAPE (Allergy, Mild, ITCHINESS, 08/08/15) Objective Last 24 Hour Vital Signs Date Time Temp Pulse Resp B/P Pulse Ox O2 Delivery O2 Flow Rate FiO2 08/02/16 10:11 82 18 40 08/02/16 08:56 81 18 40 08/02/16 08:00 40 08/02/16 08:00 93 08/02/16 08:00 98.4 81 16 137/95 96 Mechanical Ventilator 40 08/02/16 07:24 80 19 40 08/02/16 05:11 82 17 40 08/02/16 04:00 97.5 86 19 125/84 94 Trach Collar 08/02/16 04:00 40 08/02/16 03:35 86 08/02/16 02:58 89 18 40 08/02/16 01:04 82 17 40 08/02/16 00:00 84 08/02/16 00:00 40 08/01/16 23:11 89 18 40 08/01/16 23:00 98.1 91 17 136/88 98 Mechanical Ventilator 40 08/01/16 22:00 98.1 102 17 130/88 98 Mechanical Ventilator 40 08/01/16 21:28 94 19 40 08/01/16 21:27 98.1 92 17 134/90 98 Mechanical Ventilator 40 08/01/16 21:00 98.0 94 22 135/88 98 Mechanical Ventilator 40 08/01/16 20:00 90 08/01/16 20:00 98.0 96 22 135/85 98 Mechanical Ventilator 40 08/01/16 20:00 40 08/01/16 19:00 96 22 139/96 98 Mechanical Ventilator 40 08/01/16 18:44 95 19 40 08/01/16 18:00 90 21 138/92 99 Mechanical Ventilator 40 08/01/16 17:20 92 19 40 08/01/16 17:00 92 21 143/91 98 Mechanical Ventilator 40 08/01/16 16:00 40 08/01/16 16:00 92 08/01/16 16:00 99.5 95 20 133/89 97 Mechanical Ventilator 40 08/01/16 15:20 94 17 40 08/01/16 15:00 94 18 127/82 97 Mechanical Ventilator 40 08/01/16 14:00 93 19 120/84 98 Mechanical Ventilator 40 08/01/16 13:30 118/80 08/01/16 13:20 96 20 40 08/01/16 13:00 95 20 118/80 97 Mechanical Ventilator 40 Intake and Output 08/01/16 08/02/16 19:00 07:00 Intake Total 1265.00 ml 550 ml Output Total 985 ml 1310 ml Balance 280.00 ml -760 ml Free Water 200 ml IV Total 430.00 ml Tube Feeding 605 ml 550 ml Other 30 ml Output Urine Total 985 ml 1310 ml # Bowel Movements 2 General Appearance: cachetic HEENT: normocephalic, atraumatic Respiratory/Chest: chest wall non-tender, normal breath sounds Cardiovascular: normal peripheral pulses, normal rate Abdomen: normal bowel sounds, no organomegaly Genitourinary: normal external genitalia Extremities: no clubbing Neurologic/Psychiatric: title camera operator II-XII grossly normal, no motor/sensory deficits Lymphatic: no neck adenopathy Microbiology Date/Time Source Procedure Growth Status 07/30/16 19:00 Stool Clostridium difficile Toxin Assay - Final Complete Laboratory Tests 08/02/16 04:00: White Blood Count 10.4, Red Blood Count 4.26L, Hemoglobin 11.8L, Hematocrit 36.8L, Mean Corpuscular Volume 86, Mean Corpuscular Hemoglobin 27.6, Mean Corpuscular Hemoglobin Concent 32.0, Red Cell Distribution Width 13.9, Platelet Count 298, Mean Platelet Volume 8.4, Neutrophils (%) (Auto) 64.8, Lymphocytes (% ) (Auto) 25.0, Monocytes (%) (Auto) 7.0, Eosinophils (%) (Auto) 2.7, Basophils ( %) (Auto) 0.6, Urine Color Yellow, Urine Appearance Clear, Urine pH 7, Urine Specific [place] 1.010, Urine Protein Negative, Urine Glucose (UA) Negative, Urine Ketones Negative, Urine Occult Blood Negative, Urine Nitrite Negative, Urine Bilirubin Negative, Urine Urobilinogen Normal, Urine Leukocyte Esterase Negative, Urine RBC 0, Urine WBC 0-2, Urine Squamous Epithelial Cells Occasional , Urine Bacteria Occasional, Sodium Level 135, Potassium Level 3.4, Chloride Level 96L, Carbon Dioxide Level 26, Anion Gap 13, Blood Urea Nitrogen 12, Creatinine 0.5L, Estimat Glomerular Filtration Rate > 60, Glucose Level 117H, Calcium Level 8.7, Total Bilirubin 0.4, Aspartate Amino Transf (AST/SGOT) 49H, Alanine Aminotransferase (ALT/SGPT) 34, Alkaline Phosphatase 404H, Total Protein 7.3, Albumin 3.0L, Globulin 4.3, Albumin/Globulin Ratio 0.6L Current Medications Medications (Trade) Dose Ordered Sig/Sima Route PRN Reason Start Time Stop Time Status Last Admin Dose Admin Albuterol Sulfate (Proventil) 2.5 mg Q3H PRN HHN Shortness of Breath 08/02/16 01:30 08/07/16 01:29 Aztreonam 1 gm/ Sodium Chloride 55 ml @ 110 mls/hr EVERY 8 HOURS IVPB 08/02/16 06:00 08/06/16 13:59 08/02/16 05:17 Clotrimazole (Lotrimin) 1 applic EVERY 12 HOURS TOPIC 08/02/16 09:00 09/01/16 08:59 08/02/16 09:00 Docusate Sodium (Colace) 100 mg DAILY GT 08/02/16 09:00 09/01/16 08:59 08/02/16 10:11 Heparin Sodium (Porcine) (Heparin 5000 units/ml) 5,000 units EVERY 12 HOURS SUBQ 08/02/16 09:00 09/01/16 08:59 08/02/16 10:21 Levofloxacin 100 ml @ 100 mls/hr Q24H IVPB 08/02/16 12:00 08/06/16 11:59 08/02/16 12:34 Lorazepam (Ativan) 2 mg QIDPRN PRN ORAL For Anxiety 08/02/16 10:15 08/09/16 10:14 Midodrine (Pro-Amatine) 10 mg THREE TIMES A DAY GT 08/02/16 09:00 09/01/16 08:59 08/02/16 10:11 Ondansetron HCl (Zofran) 4 mg Q6H PRN IVP Nausea & Vomiting 08/02/16 01:30 09/01/16 01:29 Pantoprazole (Protonix) 40 mg DAILY IVP 08/02/16 09:00 09/01/16 08:59 08/02/16 10:11 Potassium Chloride (KCl 10% 40mEq Oral solution) 40 meq DAILY GT 08/02/16 09:00 09/01/16 08:59 08/02/16 10:10 Vancomycin HCl (Vanco rx to dose) 1 ea DAILY PRN MISC . 08/02/16 09:00 09/01/16 08:59 Vancomycin HCl/ Dextrose (Vancomycin/D5W) 275 ml @ 183.333 mls/hr Q12HR IVPB 08/02/16 09:00 08/05/16 20:59 08/02/16 10:10 ALBANIA CRAMER August 02, 2016 12:57
[2016-08-02 16:00] VITALS: BP 138/91
--- NOTE | 2016-08-02 19:35 | Infectious Diseases Prog Note ---
Assessment/Plan Assessment/Plan ASSESSMENT: 61 y/o male with: // Probable recurrent HCAP / VAP - SCx GNR - CXR 08/01: Infiltrate suspected at the left lung base. Possible small bilateral pleural effusions. // Diarrhea - negative C.difficile - h/o pneumotosis intestinalis // Sacral decubitis ulcer POA, not grossly infected // Severe sepsis SP - off pressors // Leukocytosis - resolved // Low grade fever - resolved // Elevated AlkPh ( Chronic ) // Chronic VDRF s/p trach, PEG // Hx of CT evidence of prior granulomatous disease // MDRO colonized // Negative HIV, hepatitis panel // PCN, TCA allergies - tolerated carbapenems // Full Code PLAN: - continue empiric IV Vanco, levaquin, Azactam d# 4 / 5-7 ( 07/31 SP Amikacin d# 2 - f/u cultures, ( Bl, Ur ,Sp ) - monitor CBC - monitor CMP - vent support, trach care, aspiration precautions - contact isolation Subjective Allergies: Coded Allergies: OXYTETRACYCLINE (Unverified Allergy, Unknown, 09/05/13) PENICILLINS (Unverified Allergy, Unknown, 09/05/13) Uncoded Allergies: PLASTIC TAPE (Allergy, Mild, ITCHINESS, 08/08/15) Subjective fevers resolved diarrhea improved Objective Vital Signs Last 24 Hour Vital Signs Date Time Temp Pulse Resp B/P Pulse Ox O2 Delivery O2 Flow Rate FiO2 08/02/16 19:23 80 19 40 08/02/16 16:31 87 19 40 08/02/16 16:00 40 08/02/16 16:00 97.9 71 16 138/91 95 Mechanical Ventilator 40 08/02/16 16:00 72 08/02/16 15:12 86 17 40 08/02/16 12:48 81 20 40 08/02/16 12:00 97.9 65 18 119/75 96 Mechanical Ventilator 40 08/02/16 12:00 40 08/02/16 12:00 75 08/02/16 10:11 82 18 40 08/02/16 08:56 81 18 40 08/02/16 08:00 40 08/02/16 08:00 93 08/02/16 08:00 98.4 81 16 137/95 96 Mechanical Ventilator 40 08/02/16 07:24 80 19 40 08/02/16 05:11 82 17 40 08/02/16 04:00 97.5 86 19 125/84 94 Trach Collar 08/02/16 04:00 40 08/02/16 03:35 86 08/02/16 02:58 89 18 40 08/02/16 01:04 82 17 40 08/02/16 00:00 84 08/02/16 00:00 40 08/01/16 23:11 89 18 40 08/01/16 23:00 98.1 91 17 136/88 98 Mechanical Ventilator 40 08/01/16 22:00 98.1 102 17 130/88 98 Mechanical Ventilator 40 08/01/16 21:28 94 19 40 08/01/16 21:27 98.1 92 17 134/90 98 Mechanical Ventilator 40 08/01/16 21:00 98.0 94 22 135/88 98 Mechanical Ventilator 40 08/01/16 20:00 90 08/01/16 20:00 98.0 96 22 135/85 98 Mechanical Ventilator 40 08/01/16 20:00 40 Height (Feet): 5 Height (Inches): 8.00 Weight (Pounds): 150 General Appearance: no acute distress Respiratory/Chest: no respiratory distress Cardiovascular: normal rate, regular rhythm Abdomen: normal bowel sounds, soft, non tender, non distended Laboratory Tests Test 08/02/16 04:00 White Blood Count 10.4 K/UL (4.8-10.8) Red Blood Count 4.26 M/UL (4.70-6.10) L Hemoglobin 11.8 G/DL (14.2-18.0) L Hematocrit 36.8 % (42.0-52.0) L Mean Corpuscular Volume 86 FL (80-99) Mean Corpuscular Hemoglobin 27.6 PG (27.0-31.0) Mean Corpuscular Hemoglobin Concent 32.0 G/DL (32.0-36.0) Red Cell Distribution Width 13.9 % (11.6-14.8) Platelet Count 298 K/UL (150-450) Mean Platelet Volume 8.4 FL (6.5-10.1) Neutrophils (%) (Auto) 64.8 % (45.0-75.0) Lymphocytes (%) (Auto) 25.0 % (20.0-45.0) Monocytes (%) (Auto) 7.0 % (1.0-10.0) Eosinophils (%) (Auto) 2.7 % (0.0-3.0) Basophils (%) (Auto) 0.6 % (0.0-2.0) Urine Color Yellow Urine Appearance Clear Urine pH 7 (4.5-8.0) Urine Specific [place] 1.010 (1.005-1.035) Urine Protein Negative (NEGATIVE) Urine Glucose (UA) Negative (NEGATIVE) Urine Ketones Negative (NEGATIVE) Urine Occult Blood Negative (NEGATIVE) Urine Nitrite Negative (NEGATIVE) Urine Bilirubin Negative (NEGATIVE) Urine Urobilinogen Normal MG/DL (0.0-1.0) Urine Leukocyte Esterase Negative (NEGATIVE) Urine RBC 0 /HPF (0 - 0) Urine WBC 0-2 /HPF (0 - 0) Urine Squamous Epithelial Cells Occasional /LPF Urine Bacteria Occasional /HPF (NONE) Sodium Level 135 mEQ/L (135-145) Potassium Level 3.4 mEQ/L (3.4-4.9) Chloride Level 96 mEQ/L (98-107) L Carbon Dioxide Level 26 mEQ/L (20-30) Anion Gap 13 (5-15) Blood Urea Nitrogen 12 mg/dL (7-23) Creatinine 0.5 mg/dL (0.7-1.2) L Estimat Glomerular Filtration Rate > 60 mL/min (>60) Glucose Level 117 mg/dL (74-106) H Calcium Level 8.7 mg/dL (8.6-10.2) Total Bilirubin 0.4 mg/dL (0.0-1.2) Aspartate Amino Transf (AST/SGOT) 49 U/L (5-40) H Alanine Aminotransferase (ALT/SGPT) 34 U/L (3-41) Alkaline Phosphatase 404 U/L (40-129) H Total Protein 7.3 g/dL (6.6-8.7) Albumin 3.0 g/dL (3.5-5.2) L Globulin 4.3 g/dL Albumin/Globulin Ratio 0.6 (1.0-2.7) L Current Medications Medications (Trade) Dose Ordered Sig/Sima Route PRN Reason Start Time Stop Time Status Last Admin Dose Admin Albuterol Sulfate (Proventil) 2.5 mg Q3H PRN HHN Shortness of Breath 5/13/17 01:30 08/07/16 01:29 Aztreonam 1 gm/ Sodium Chloride 55 ml @ 110 mls/hr EVERY 8 HOURS IVPB 08/02/16 06:00 08/06/16 13:59 08/02/16 14:00 Clotrimazole (Lotrimin) 1 applic EVERY 12 HOURS TOPIC 08/02/16 09:00 09/01/16 08:59 08/02/16 09:00 Docusate Sodium (Colace) 100 mg DAILY GT 08/02/16 09:00 09/01/16 08:59 08/02/16 10:11 Heparin Sodium (Porcine) (Heparin 5000 units/ml) 5,000 units EVERY 12 HOURS SUBQ 08/02/16 09:00 09/01/16 08:59 08/02/16 10:21 Lansoprazole (Prevacid) 30 mg DAILY GT 08/03/16 09:00 09/02/16 08:59 Levofloxacin 100 ml @ 100 mls/hr Q24H IVPB 08/02/16 12:00 08/06/16 11:59 08/02/16 12:34 Lorazepam (Ativan) 2 mg QIDPRN PRN ORAL For Anxiety 08/02/16 10:15 08/09/16 10:14 Midodrine (Pro-Amatine) 10 mg THREE TIMES A DAY GT 08/02/16 09:00 09/01/16 08:59 08/02/16 18:37 Ondansetron HCl (Zofran) 4 mg Q6H PRN IVP Nausea & Vomiting 08/02/16 01:30 09/01/16 01:29 Potassium Chloride (KCl 10% 40mEq Oral solution) 40 meq DAILY GT 08/02/16 09:00 09/01/16 08:59 08/02/16 10:10 Vancomycin HCl (Vanco rx to dose) 1 ea DAILY PRN MISC . 08/02/16 09:00 09/01/16 08:59 Vancomycin HCl/ Dextrose (Vancomycin/D5W) 275 ml @ 183.333 mls/hr Q12HR IVPB 08/02/16 09:00 08/05/16 20:59 08/02/16 10:10 NALINI LUNA August 02, 2016 19:35
[2016-08-02 20:00] VITALS: BP 129/90
--- NOTE | 2016-08-02 21:59 | Progress Note ---
DATE: 08/02/2016 SUBJECTIVE: The patient is awake. Eyes open. Afebrile. Hemodynamically stable. He was transferred from the intensive care unit to cardiac observation unit. PHYSICAL EXAMINATION: VITAL SIGNS: Blood pressure 119/75, pulse 65, respirations 18, and temperature 97.9 degrees. HEENT: Eyes were normal. ENT, mucous membranes were moist and intact. NECK: Supple with no JVD without lymph nodes. Tracheostomy site is clean. LUNGS: Clear without rhonchi, rales, or wheezing. Secretions are small, thin, and pale yellow. HEART: Normal sounds with regular beats. There is no S3, S4, or pericardial rub. ABDOMEN: Soft and nontender with normal bowel sounds. Gastrostomy site is clean. EXTREMITIES: Warm without cyanosis, clubbing, or edema. LABORATORY DATA: Hemoglobin 11.8, hematocrit 36.8 with MCV of 86, WBC of 10.4, and platelet is 298,000. His BUN and creatinine is 12 and 0.5 respectively. Sodium is 135, potassium 3.4, chloride 96, and CO2 26. SGOT is 49 and SGPT 34. Alkaline phosphatase is 44. Albumin is 3.0. Total protein is 7.3. Imaging study was taken today. IMPRESSION: The patient has gram-negative rods. Sputum culture Enterococcus . Chest x-ray showed left lower lobe infiltrate with bilateral pleural effusion. Repeat laboratory tests will be done in the a.m. Repeat chest x-ray be done in the morning. We will continue with current IV antibiotics that include levofloxacin 750 mg IV piggyback every 24 hours, vancomycin mg IV piggyback q.12 hours, and aztreonam 1 g IV piggyback q.8 hours. Boris Arevalo M.D. DR: Merlin JOB#: [id number] CC:
[2016-08-03] VITALS: BP 151/81
[2016-08-03 04:00] VITALS: BP 110/68
[2016-08-03] MEDS: Aztreonam Inj 1 GM in NS 55 ML IVPB SCH ×2 (06:37→13:39)
[2016-08-03 08:00] VITALS: BP 121/84
[2016-08-03] MEDS: Vancomycin 1.25 GM in D5W 275 ML IVPB SCH (09:12)
[2016-08-03 09:13] LABS: ALANINE AMINOTRANSFERASE 39 U/L (3-41); ALBUMIN/GLOBULIN RATIO 0.7 (1.0-2.7); ANION GAP 14 (5-15); ASPARTATE AMINO TRANSFERASE 64 U/L (5-40); CALCIUM 9.1 mg/dL (8.6-10.2); CARBON DIOXIDE 25 mEQ/L (20-30); CHLORIDE 99 mEQ/L (98-107); CREATININE 0.6 mg/dL (0.7-1.2); GLOMERULAR FILTRATION RATE > 60 mL/min (>60); HEMOLYSIS 3; POTASSIUM 3.7 mEQ/L (3.4-4.9); SODIUM 138 mEQ/L (135-145); TOTAL PROTEIN 7.6 g/dL (6.6-8.7)
[2016-08-03 09:22] LABS: BASOPHILS % (AUTO) 1.1 % (0.0-2.0); EOSINOPHILS % (AUTO) 3.6 % (0.0-3.0); LYMPHOCYTES % (AUTO) 19.1 % (20.0-45.0); MEAN CORPUSCULAR HEMOGLOBIN 27.4 PG (27.0-31.0); MEAN CORPUSCULAR HGB CONC 31.8 G/DL (32.0-36.0); MEAN CORPUSCULAR VOLUME 86 FL (80-99); MEAN PLATELET VOLUME 9.5 FL (6.5-10.1); MONOCYTES % (AUTO) 8.7 % (1.0-10.0); NEUTROPHILS % (AUTO) 67.6 % (45.0-75.0); PLATELET COUNT 301 K/UL (150-450); RED BLOOD COUNT 4.49 M/UL (4.70-6.10); RED CELL DISTRIBUTION WIDTH 14.4 % (11.6-14.8); WHITE BLOOD COUNT 11.6 K/UL (4.8-10.8)
[2016-08-03] MEDS: Docusate 100mg/10ml Liq GT SCH (10:19)
[2016-08-03] MEDS: Midodrine 10mg tab GT SCH ×3 (10:20→18:05)
[2016-08-03] MEDS: KCl 10% 40mEq/30ml liquid GT SCH (10:20)
[2016-08-03] MEDS: Heparin 5000 units/ml inj SUBQ SCH ×2 (10:27→20:54)
--- NOTE | 2016-08-03 10:41 | Diagnostic Imaging Report ---
Indication: Dyspnea Technique: XRAY CHEST 1 V Comparison: 08/02/16 Findings: Tracheostomy is unchanged. Cardiomediastinal silhouette is stable. Mild bilateral interstitial prominence persists. Linear and hazy opacities of the lung bases are again noted with slight improved aeration in the right base. There is gaseous distention in the upper abdomen. Impression: Slight improved aeration in the right base with persistent linear and hazy atelectasis/infiltrate in the lung bases. Gaseous distention in the upper abdomen. Further evaluation recommended as indicated.
[2016-08-03 12:00] VITALS: BP 98/66
--- NOTE | 2016-08-03 12:57 | Pulmonology Progress Note ---
Assessment/Plan Problems: (1) Respiratory failure, acute and chronic (2) Severe sepsis (3) Fever (4) Pneumonia (5) Pleural effusion (6) Feeding by G-tube (7) History of CVA (cerebrovascular accident) Assessment/Plan improving wbc decreasing tolerating feeding - continue empiric IV Vanco, levaquin, Azactam d# 5 / 5-7 check labs, including AST in am dc to skilled nursing if labs become better. dvt prophylaxis Subjective ROS Limited/Unobtainable: No Constitutional: Reports: no symptoms HEENT: Repors: no symptoms Respiratory: Reports: no symptoms Allergies: Coded Allergies: OXYTETRACYCLINE (Unverified Allergy, Unknown, 09/05/13) PENICILLINS (Unverified Allergy, Unknown, 09/05/13) Uncoded Allergies: PLASTIC TAPE (Allergy, Mild, ITCHINESS, 08/08/15) Objective Last 24 Hour Vital Signs Date Time Temp Pulse Resp B/P Pulse Ox O2 Delivery O2 Flow Rate FiO2 08/03/16 10:49 78 12 40 08/03/16 08:33 79 12 40 08/03/16 08:00 40 08/03/16 08:00 97.5 69 12 121/84 97 Mechanical Ventilator 40 08/03/16 06:42 77 12 40 08/03/16 05:19 82 12 40 08/03/16 04:00 40 08/03/16 04:00 97.5 73 20 110/68 96 Mechanical Ventilator 08/03/16 04:00 73 08/03/16 03:28 73 12 40 08/03/16 01:42 88 19 40 08/03/16 00:00 98.2 85 20 151/81 98 Mechanical Ventilator 08/03/16 00:00 76 08/03/16 00:00 40 08/02/16 23:21 100 20 40 08/02/16 21:08 99 20 40 08/02/16 21:00 40 08/02/16 20:00 97.4 81 20 129/90 93 Mechanical Ventilator 08/02/16 20:00 72 08/02/16 19:23 80 19 40 08/02/16 16:31 87 19 40 08/02/16 16:00 40 08/02/16 16:00 97.9 71 16 138/91 95 Mechanical Ventilator 40 08/02/16 16:00 72 08/02/16 15:12 86 17 40 Intake and Output 08/02/16 08/03/16 19:00 07:00 Intake Total 1636.666 ml 979.333 ml Output Total 750 ml 620 ml Balance 886.666 ml 359.333 ml Free Water 400 ml 60 ml IV Total 521.666 ml 314.333 ml Tube Feeding 715 ml 605 ml Output Urine Total 750 ml 620 ml # Voids 2 # Bowel Movements 2 General Appearance: WD/WN Respiratory/Chest: chest wall non-tender, normal breath sounds Cardiovascular: normal peripheral pulses, normal rate Abdomen: normal bowel sounds, no organomegaly, no scars Genitourinary: normal external genitalia Skin: no rash, no ulcers Neurologic/Psychiatric: smasher II-XII grossly normal Laboratory Tests 08/03/16 07:20: White Blood Count 11.6H, Red Blood Count 4.49L, Hemoglobin 12.3L, Hematocrit 38.6L, Mean Corpuscular Volume 86, Mean Corpuscular Hemoglobin 27.4, Mean Corpuscular Hemoglobin Concent 31.8L, Red Cell Distribution Width 14.4, Platelet Count 301, Mean Platelet Volume 9.5, Neutrophils (%) (Auto) 67.6, Lymphocytes (%) (Auto) 19.1L, Monocytes (%) (Auto) 8.7, Eosinophils (%) (Auto) 3.6H, Basophils (%) (Auto) 1.1, Sodium Level 138, Potassium Level 3.7, Chloride Level 99, Carbon Dioxide Level 25, Anion Gap 14, Blood Urea Nitrogen 17, Creatinine 0.6L, Estimat Glomerular Filtration Rate > 60, Glucose Level 112H, Calcium Level 9.1, Total Bilirubin 0.3, Aspartate Amino Transf (AST/SGOT) 64H, Alanine Aminotransferase (ALT/SGPT) 39, Alkaline Phosphatase 409H, Total Protein 7.6, Albumin 3.3L, Globulin 4.3, Albumin/Globulin Ratio 0.7L Current Medications Medications (Trade) Dose Ordered Sig/Sima Route PRN Reason Start Time Stop Time Status Last Admin Dose Admin Albuterol Sulfate (Proventil) 2.5 mg Q3H PRN HHN Shortness of Breath 08/02/16 01:30 08/07/16 01:29 Aztreonam 1 gm/ Sodium Chloride 55 ml @ 110 mls/hr EVERY 8 HOURS IVPB 08/02/16 06:00 08/06/16 13:59 08/03/16 06:37 Clotrimazole (Lotrimin) 1 applic EVERY 12 HOURS TOPIC 08/02/16 09:00 09/01/16 08:59 08/03/16 09:00 Docusate Sodium (Colace) 100 mg DAILY GT 08/02/16 09:00 09/01/16 08:59 08/03/16 10:19 Heparin Sodium (Porcine) (Heparin 5000 units/ml) 5,000 units EVERY 12 HOURS SUBQ 08/02/16 09:00 09/01/16 08:59 08/03/16 10:27 Lansoprazole (Prevacid) 30 mg DAILY GT 08/03/16 09:00 09/02/16 08:59 08/03/16 10:20 Levofloxacin 100 ml @ 100 mls/hr Q24H IVPB 08/02/16 12:00 08/06/16 11:59 08/03/16 12:35 Lorazepam (Ativan) 2 mg QIDPRN PRN ORAL For Anxiety 08/02/16 10:15 08/09/16 10:14 Midodrine (Pro-Amatine) 10 mg THREE TIMES A DAY GT 08/02/16 09:00 09/01/16 08:59 08/03/16 10:20 Ondansetron HCl (Zofran) 4 mg Q6H PRN IVP Nausea & Vomiting 08/02/16 01:30 09/01/16 01:29 Potassium Chloride (KCl 10% 40mEq Oral solution) 40 meq DAILY GT 08/02/16 09:00 09/01/16 08:59 08/03/16 10:20 Vancomycin HCl (Vanco rx to dose) 1 ea DAILY PRN MISC . 08/02/16 09:00 09/01/16 08:59 Vancomycin HCl/ Dextrose (Vancomycin/D5W) 275 ml @ 183.333 mls/hr Q12HR IVPB 08/02/16 09:00 08/05/16 20:59 08/03/16 09:12 ALBANIA CRAMER August 03, 2016 12:57
[2016-08-03 16:00] VITALS: BP 102/67
--- NOTE | 2016-08-03 18:22 | Infectious Diseases Prog Note ---
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 // Diarrhea - negative C.difficile - h/o pneumotosis intestinalis // Sacral decubitis ulcer POA, not grossly infected // Severe sepsis SP - off pressors // Leukocytosis - recurrent, mild // Low grade fever - resolved // Elevated AlkPh ( Chronic ) // Chronic VDRF s/p trach, PEG // Hx of CT evidence of prior granulomatous disease // MDRO colonized // Negative HIV, hepatitis panel // PCN, TCA allergies - tolerated carbapenems // Full Code PLAN: - change IV Vanco, levaquin, Azactam d# 5 to invanz d# 1 / 5-7 based on cultures ( 07/31 SP Amikacin d# 2 ) - f/u cultures, ( Bl, Ur ,Sp ) - monitor CBC - monitor CMP - vent support, trach care, aspiration precautions - contact isolation Subjective Allergies: Coded Allergies: OXYTETRACYCLINE (Unverified Allergy, Unknown, 09/05/13) PENICILLINS (Unverified Allergy, Unknown, 09/05/13) Uncoded Allergies: PLASTIC TAPE (Allergy, Mild, ITCHINESS, 08/08/15) Subjective fevers resolved cultures noted Objective Vital Signs Last 24 Hour Vital Signs Date Time Temp Pulse Resp B/P Pulse Ox O2 Delivery O2 Flow Rate FiO2 08/03/16 16:55 83 13 40 08/03/16 16:00 89 08/03/16 16:00 40 08/03/16 14:31 86 20 40 08/03/16 12:58 94 19 40 08/03/16 12:00 96 08/03/16 12:00 98.2 94 26 98/66 98 Mechanical Ventilator 40 08/03/16 12:00 40 08/03/16 10:49 78 12 40 08/03/16 08:33 79 12 40 08/03/16 08:00 40 08/03/16 08:00 78 08/03/16 08:00 97.5 69 12 121/84 97 Mechanical Ventilator 40 08/03/16 06:42 77 12 40 5/14/17 05:19 82 12 40 08/03/16 04:00 40 08/03/16 04:00 97.5 73 20 110/68 96 Mechanical Ventilator 08/03/16 04:00 73 08/03/16 03:28 73 12 40 08/03/16 01:42 88 19 40 08/03/16 00:00 98.2 85 20 151/81 98 Mechanical Ventilator 08/03/16 00:00 76 08/03/16 00:00 40 08/02/16 23:21 100 20 40 08/02/16 21:08 99 20 40 08/02/16 21:00 40 08/02/16 20:00 97.4 81 20 129/90 93 Mechanical Ventilator 08/02/16 20:00 72 08/02/16 19:23 80 19 40 Height (Feet): 5 Height (Inches): 8.00 Weight (Pounds): 150 General Appearance: no acute distress HEENT: status post trach Respiratory/Chest: decreased breath sounds Cardiovascular: normal rate, regular rhythm Abdomen: normal bowel sounds, soft, non tender, non distended Laboratory Tests Test 08/03/16 07:20 White Blood Count 11.6 K/UL (4.8-10.8) H Red Blood Count 4.49 M/UL (4.70-6.10) L Hemoglobin 12.3 G/DL (14.2-18.0) L Hematocrit 38.6 % (42.0-52.0) L Mean Corpuscular Volume 86 FL (80-99) Mean Corpuscular Hemoglobin 27.4 PG (27.0-31.0) Mean Corpuscular Hemoglobin Concent 31.8 G/DL (32.0-36.0) L Red Cell Distribution Width 14.4 % (11.6-14.8) Platelet Count 301 K/UL (150-450) Mean Platelet Volume 9.5 FL (6.5-10.1) Neutrophils (%) (Auto) 67.6 % (45.0-75.0) Lymphocytes (%) (Auto) 19.1 % (20.0-45.0) L Monocytes (%) (Auto) 8.7 % (1.0-10.0) Eosinophils (%) (Auto) 3.6 % (0.0-3.0) H Basophils (%) (Auto) 1.1 % (0.0-2.0) Sodium Level 138 mEQ/L (135-145) Potassium Level 3.7 mEQ/L (3.4-4.9) Chloride Level 99 mEQ/L (98-107) Carbon Dioxide Level 25 mEQ/L (20-30) Anion Gap 14 (5-15) Blood Urea Nitrogen 17 mg/dL (7-23) Creatinine 0.6 mg/dL (0.7-1.2) L Estimat Glomerular Filtration Rate > 60 mL/min (>60) Glucose Level 112 mg/dL (74-106) H Calcium Level 9.1 mg/dL (8.6-10.2) Total Bilirubin 0.3 mg/dL (0.0-1.2) Aspartate Amino Transf (AST/SGOT) 64 U/L (5-40) H Alanine Aminotransferase (ALT/SGPT) 39 U/L (3-41) Alkaline Phosphatase 409 U/L (40-129) H Total Protein 7.6 g/dL (6.6-8.7) Albumin 3.3 g/dL (3.5-5.2) L Globulin 4.3 g/dL Albumin/Globulin Ratio 0.7 (1.0-2.7) L Current Medications Medications (Trade) Dose Ordered Sig/Sima Route PRN Reason Start Time Stop Time Status Last Admin Dose Admin Albuterol Sulfate (Proventil) 2.5 mg Q3H PRN HHN Shortness of Breath 08/02/16 01:30 08/07/16 01:29 Aztreonam 1 gm/ Sodium Chloride 55 ml @ 110 mls/hr EVERY 8 HOURS IVPB 08/02/16 06:00 08/06/16 13:59 08/03/16 13:39 Clotrimazole (Lotrimin) 1 applic EVERY 12 HOURS TOPIC 08/02/16 09:00 09/01/16 08:59 08/03/16 09:00 Docusate Sodium (Colace) 100 mg DAILY GT 08/02/16 09:00 09/01/16 08:59 08/03/16 10:19 Heparin Sodium (Porcine) (Heparin 5000 units/ml) 5,000 units EVERY 12 HOURS SUBQ 08/02/16 09:00 09/01/16 08:59 08/03/16 10:27 Lansoprazole (Prevacid) 30 mg DAILY GT 08/03/16 09:00 09/02/16 08:59 08/03/16 10:20 Levofloxacin 100 ml @ 100 mls/hr Q24H IVPB 08/02/16 12:00 08/06/16 11:59 08/03/16 12:35 Lorazepam (Ativan) 2 mg QIDPRN PRN ORAL For Anxiety 08/02/16 10:15 08/09/16 10:14 Midodrine (Pro-Amatine) 10 mg THREE TIMES A DAY GT 08/02/16 09:00 09/01/16 08:59 08/03/16 18:05 Ondansetron HCl (Zofran) 4 mg Q6H PRN IVP Nausea & Vomiting 08/02/16 01:30 09/01/16 01:29 Potassium Chloride (KCl 10% 40mEq Oral solution) 40 meq DAILY GT 08/02/16 09:00 09/01/16 08:59 08/03/16 10:20 Vancomycin HCl (Vanco rx to dose) 1 ea DAILY PRN MISC . 08/02/16 09:00 09/01/16 08:59 Vancomycin HCl/ Dextrose (Vancomycin/D5W) 275 ml @ 183.333 mls/hr Q12HR IVPB 08/02/16 09:00 08/05/16 20:59 08/03/16 09:12 NALINI LUNA August 03, 2016 18:22
[2016-08-03 20:00] VITALS: BP 116/70
[2016-08-03] MEDS ORDERED: Ertapenem 1 GM in NS 55 ML IVPB SCH (20:00)
[2016-08-04] VITALS: BP 119/81
--- NOTE | 2016-08-04 00:19 | Progress Note ---
DATE: 08/03/2016 SUBJECTIVE: The patient is awake, alert, afebrile, and hemodynamically stable. PHYSICAL EXAMINATION: VITAL SIGNS: Blood pressure 121/84, pulse 69, respirations 12, and temperature 97.5. HEENT: Eyes are normal. ENT, mucous membranes are moist and intact. NECK: Supple. No JVD. Without lymph nodes. Tracheostomy site is clean. LUNGS: Clear without rhonchi, rales, or wheezes. Secretions are small, thin, and clayton. HEART: Normal sounds with regular beats. There is no S3, S4, or pericardial rub. ABDOMEN: Soft and nontender with normal bowel sounds. Gastrostomy site is clean. EXTREMITIES: Warm without cyanosis, clubbing, or edema. severe flexion contractions of elbow, wrists, hips, and knees. LABORATORY AND DIAGNOSTIC DATA: His hemoglobin is 12.3 and hematocrit is 38.6 with MCV of 86, WBC of 11.6, and platelets of 301,000. His BUN and creatinine are 17 and 0.6 respectively. His sodium is 138, potassium 3.7, chloride 99, and CO2 is 25. SGOT has progressively increased from 29 from 07/31/2016 to 64 on 08/03/2016. The same can be said of the alkaline phosphatase. His albumin is 3.3 and total protein is 7.6. The patient will require, as a result of it, an abdominal and pelvic ultrasound as multiple liver function tests are increasing a suspicion of possible obstruction of common bile duct. He is now . His BUN and creatinine are 17 and 0.6. Chest x-ray done today revealed slight improvement in right lower lobe pneumonia, consistent with atelectasis and gaseous distention in the upper abdomen indicating right upper quadrant pathology that needs to be elaborated by abdominal ultrasound. IMPRESSION AND PLAN: The patient is progressively improving with right lower lobe pneumonia and bilateral opacities. There is no mention of pleural effusions in this x-ray. Therefore, I am not being imperative of this as well . The case will be discussed with the customer relations specialist. Repeat laboratory tests will be done in the a.m. Assa Irina, M.D. DR: XAVIER JOB#: [id number] CC:
[2016-08-04 04:00] VITALS: BP 98/66
[2016-08-04 05:51] LABS: BASOPHILS % (AUTO) 0.8 % (0.0-2.0); EOSINOPHILS % (AUTO) 2.5 % (0.0-3.0); LYMPHOCYTES % (AUTO) 17.9 % (20.0-45.0); MEAN CORPUSCULAR HEMOGLOBIN 28.2 PG (27.0-31.0); MEAN CORPUSCULAR HGB CONC 32.7 G/DL (32.0-36.0); MEAN CORPUSCULAR VOLUME 86 FL (80-99); MEAN PLATELET VOLUME 8.7 FL (6.5-10.1); MONOCYTES % (AUTO) 7.2 % (1.0-10.0); NEUTROPHILS % (AUTO) 71.6 % (45.0-75.0); PLATELET COUNT 307 K/UL (150-450); RED BLOOD COUNT 4.37 M/UL (4.70-6.10); RED CELL DISTRIBUTION WIDTH 14.6 % (11.6-14.8); WHITE BLOOD COUNT 16.1 K/UL (4.8-10.8)
[2016-08-04 06:10] LABS: ALANINE AMINOTRANSFERASE 36 U/L (3-41); ALBUMIN/GLOBULIN RATIO 0.7 (1.0-2.7); ANION GAP 15 (5-15); ASPARTATE AMINO TRANSFERASE 46 U/L (5-40); CARBON DIOXIDE 24 mEQ/L (20-30); CHLORIDE 100 mEQ/L (98-107); CREATININE 0.7 mg/dL (0.7-1.2); GLOMERULAR FILTRATION RATE > 60 mL/min (>60); HEMOLYSIS 1; POTASSIUM 3.3 mEQ/L (3.4-4.9); SODIUM 139 mEQ/L (135-145); TOTAL PROTEIN 7.7 g/dL (6.6-8.7)
[2016-08-04 08:00] VITALS: BP 100/68
--- NOTE | 2016-08-04 08:48 | Diagnostic Imaging Report ---
Indications: DYSPNEA Technique: Portable AP chest Findings: Comparison: 07/31/16 Bilateral interstitial infiltrates, patchy consolidative opacities in the lung bases, right and possible left pleural effusions, left retrocardiac opacification persists, unchanged. Gaseous distention of bowel in the upper abdomen has increased. No other change. IMPRESSION: Stable bilateral congestive changes Stable bibasal atelectasis. Superimposed pneumonia not excludable, unchanged Increase in gaseous distention of bowel may represent worsening ileus or developing obstruction
[2016-08-04] MEDS: KCl 10% 40mEq/30ml liquid GT SCH (09:09)
[2016-08-04] MEDS: Docusate 100mg/10ml Liq GT SCH (09:09)
[2016-08-04] MEDS: Midodrine 10mg tab GT SCH ×3 (09:09→18:00)
[2016-08-04] MEDS: Heparin 5000 units/ml inj SUBQ SCH (09:10)
[2016-08-04] MEDS ORDERED: NS 275ml ONE (10:07)
--- NOTE | 2016-08-04 10:17 | Infectious Diseases Prog Note ---
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 // Diarrhea - negative C.difficile - h/o pneumotosis intestinalis // Sacral decubitis ulcer POA, not grossly infected // Severe sepsis SP - off pressors // Leukocytosis - increased // Low grade fever - resolved // Elevated AlkPh ( Chronic ) // Chronic VDRF s/p trach, PEG // Hx of CT evidence of prior granulomatous disease // MDRO colonized // Negative HIV, hepatitis panel // PCN, TCA allergies - tolerated carbapenems // Full Code PLAN: - cont Invanz d# 2 / 5-7 ( 07/31 SP Amikacin d# 2 ) - f/u cultures, ( Bl, Ur ) - monitor CBC - monitor CMP - vent support, trach care, aspiration precautions - contact isolation Subjective Allergies: Coded Allergies: OXYTETRACYCLINE (Unverified Allergy, Unknown, 09/05/13) PENICILLINS (Unverified Allergy, Unknown, 09/05/13) Uncoded Allergies: PLASTIC TAPE (Allergy, Mild, ITCHINESS, 08/08/15) Subjective afebrile Objective Vital Signs Last 24 Hour Vital Signs Date Time Temp Pulse Resp B/P Pulse Ox O2 Delivery O2 Flow Rate FiO2 08/04/16 08:52 89 22 40 08/04/16 08:00 99.1 86 15 100/68 95 Mechanical Ventilator 40 08/04/16 08:00 40 08/04/16 07:06 95 18 40 08/04/16 07:01 89 08/04/16 05:30 83 12 40 08/04/16 04:00 40 08/04/16 04:00 97.9 83 20 98/66 95 Room Air 08/04/16 02:48 87 15 40 08/04/16 01:06 88 21 40 08/04/16 00:00 40 08/04/16 00:00 76 08/04/16 00:00 99.0 85 20 119/81 96 Room Air 08/03/16 22:36 78 15 40 08/03/16 20:47 71 14 40 08/03/16 20:00 98.0 72 18 116/70 96 Room Air 08/03/16 20:00 40 08/03/16 20:00 74 08/03/16 18:57 69 16 40 08/03/16 16:55 83 13 40 08/03/16 16:00 89 08/03/16 16:00 98.1 87 18 102/67 96 Mechanical Ventilator 40 08/03/16 16:00 40 08/03/16 14:31 86 20 40 08/03/16 12:58 94 19 40 08/03/16 12:00 96 08/03/16 12:00 98.2 94 26 98/66 98 Mechanical Ventilator 40 08/03/16 12:00 40 08/03/16 10:49 78 12 40 Height (Feet): 5 Height (Inches): 8.00 Weight (Pounds): 150 HEENT: anicteric Respiratory/Chest: respiratory distress Cardiovascular: regularly irregular Abdomen: no organomegaly Laboratory Tests Test 08/04/16 04:00 White Blood Count 16.1 K/UL (4.8-10.8) H Red Blood Count 4.37 M/UL (4.70-6.10) L Hemoglobin 12.3 G/DL (14.2-18.0) L Hematocrit 37.7 % (42.0-52.0) L Mean Corpuscular Volume 86 FL (80-99) Mean Corpuscular Hemoglobin 28.2 PG (27.0-31.0) Mean Corpuscular Hemoglobin Concent 32.7 G/DL (32.0-36.0) Red Cell Distribution Width 14.6 % (11.6-14.8) Platelet Count 307 K/UL (150-450) Mean Platelet Volume 8.7 FL (6.5-10.1) Neutrophils (%) (Auto) 71.6 % (45.0-75.0) Lymphocytes (%) (Auto) 17.9 % (20.0-45.0) L Monocytes (%) (Auto) 7.2 % (1.0-10.0) Eosinophils (%) (Auto) 2.5 % (0.0-3.0) Basophils (%) (Auto) 0.8 % (0.0-2.0) Sodium Level 139 mEQ/L (135-145) Potassium Level 3.3 mEQ/L (3.4-4.9) L Chloride Level 100 mEQ/L (98-107) Carbon Dioxide Level 24 mEQ/L (20-30) Anion Gap 15 (5-15) Blood Urea Nitrogen 16 mg/dL (7-23) Creatinine 0.7 mg/dL (0.7-1.2) Estimat Glomerular Filtration Rate > 60 mL/min (>60) Glucose Level 89 mg/dL (74-106) Calcium Level 9.0 mg/dL (8.6-10.2) Total Bilirubin 0.4 mg/dL (0.0-1.2) Aspartate Amino Transf (AST/SGOT) 46 U/L (5-40) H Alanine Aminotransferase (ALT/SGPT) 36 U/L (3-41) Alkaline Phosphatase 405 U/L (40-129) H Total Protein 7.7 g/dL (6.6-8.7) Albumin 3.2 g/dL (3.5-5.2) L Globulin 4.5 g/dL Albumin/Globulin Ratio 0.7 (1.0-2.7) L Current Medications Medications (Trade) Dose Ordered Sig/Sima Route PRN Reason Start Time Stop Time Status Last Admin Dose Admin Albuterol Sulfate (Proventil) 2.5 mg Q3H PRN HHN Shortness of Breath 08/02/16 01:30 08/07/16 01:29 Clotrimazole (Lotrimin) 1 applic EVERY 12 HOURS TOPIC 08/02/16 09:00 09/01/16 08:59 08/04/16 09:09 Docusate Sodium (Colace) 100 mg DAILY GT 08/02/16 09:00 09/01/16 08:59 08/04/16 09:09 Ertapenem/Sodium Chloride (INVanz/Sodium Chloride) 55 ml @ 110 mls/hr Q24H IVPB 08/03/16 20:00 08/08/16 19:59 08/03/16 20:52 Heparin Sodium (Porcine) (Heparin 5000 units/ml) 5,000 units EVERY 12 HOURS SUBQ 08/02/16 09:00 09/01/16 08:59 08/04/16 09:10 Lansoprazole 30 mg 30 mg DAILY GT 08/03/16 09:00 09/02/16 08:59 08/04/16 09:09 Lorazepam (Ativan) 2 mg QIDPRN PRN ORAL For Anxiety 08/02/16 10:15 08/09/16 10:14 Midodrine (Pro-Amatine) 10 mg THREE TIMES A DAY GT 08/02/16 09:00 09/01/16 08:59 08/04/16 09:09 Ondansetron HCl (Zofran) 4 mg Q6H PRN IVP Nausea & Vomiting 08/02/16 01:30 09/01/16 01:29 Potassium Chloride (KCl 10% 40mEq Oral solution) 40 meq DAILY GT 08/02/16 09:00 09/01/16 08:59 08/04/16 09:09 MARCELLA MA M.D. August 04, 2016 10:17
[2016-08-04 12:00] VITALS: BP 96/70
--- NOTE | 2016-08-04 12:47 | Pulmonology Progress Note ---
Assessment/Plan Problems: (1) Respiratory failure, acute and chronic (2) Severe sepsis (3) Fever (4) Pneumonia (5) Pleural effusion (6) Feeding by G-tube (7) History of CVA (cerebrovascular accident) Assessment/Plan improving wbc went back up tolerating feeding - continue empiric IV Vanco, levaquin, Azactam \ check labs, including AST in [facility] dc to [facility] if labs become better. dvt prophylaxis Subjective ROS Limited/Unobtainable: No Interval Events: looks comfortable HEENT: Repors: no symptoms Respiratory: Reports: other Allergies: Coded Allergies: OXYTETRACYCLINE (Unverified Allergy, Unknown, 09/05/13) PENICILLINS (Unverified Allergy, Unknown, 09/05/13) Uncoded Allergies: PLASTIC TAPE (Allergy, Mild, ITCHINESS, 08/08/15) All Systems: reviewed and negative except above Objective Last 24 Hour Vital Signs Date Time Temp Pulse Resp B/P Pulse Ox O2 Delivery O2 Flow Rate FiO2 08/04/16 12:00 99.0 81 12 96/70 96 Mechanical Ventilator 40 08/04/16 12:00 40 08/04/16 12:00 87 08/04/16 11:01 70 12 40 08/04/16 08:52 89 22 40 08/04/16 08:00 99.1 86 15 100/68 95 Mechanical Ventilator 40 08/04/16 08:00 40 08/04/16 08:00 78 08/04/16 07:06 95 18 40 08/04/16 07:01 89 08/04/16 05:30 83 12 40 08/04/16 04:00 40 08/04/16 04:00 97.9 83 20 98/66 95 Room Air 08/04/16 02:48 87 15 40 08/04/16 01:06 88 21 40 08/04/16 00:00 40 08/04/16 00:00 76 08/04/16 00:00 99.0 85 20 119/81 96 Room Air 08/03/16 22:36 78 15 40 08/03/16 20:47 71 14 40 08/03/16 20:00 98.0 72 18 116/70 96 Room Air 08/03/16 20:00 40 08/03/16 20:00 74 08/03/16 18:57 69 16 40 08/03/16 16:55 83 13 40 08/03/16 16:00 89 08/03/16 16:00 98.1 87 18 102/67 96 Mechanical Ventilator 40 08/03/16 16:00 40 08/03/16 14:31 86 20 40 08/03/16 12:58 94 19 40 Intake and Output 08/03/16 08/04/16 19:00 07:00 Intake Total 1536.666 ml 280 ml Output Total 650 ml Balance 886.666 ml 280 ml Free Water 300 ml 60 ml IV Total 521.666 ml Tube Feeding 715 ml 220 ml Output Urine Total 650 ml # Bowel Movements 5 General Appearance: WD/WN HEENT: normocephalic, atraumatic Respiratory/Chest: chest wall non-tender, lungs clear Cardiovascular: normal peripheral pulses, normal rate, regular rhythm Abdomen: normal bowel sounds, soft, non tender Genitourinary: normal external genitalia Extremities: no cyanosis Skin: no rash Neurologic/Psychiatric: 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 normal Lymphatic: no neck adenopathy Laboratory Tests 08/04/16 04:00: White Blood Count 16.1H, Red Blood Count 4.37L, Hemoglobin 12.3L, Hematocrit 37.7L, Mean Corpuscular Volume 86, Mean Corpuscular Hemoglobin 28.2, Mean Corpuscular Hemoglobin Concent 32.7, Red Cell Distribution Width 14.6, Platelet Count 307, Mean Platelet Volume 8.7, Neutrophils (%) (Auto) 71.6, Lymphocytes (% ) (Auto) 17.9L, Monocytes (%) (Auto) 7.2, Eosinophils (%) (Auto) 2.5, Basophils (%) (Auto) 0.8, Sodium Level 139, Potassium Level 3.3L, Chloride Level 100, Carbon Dioxide Level 24, Anion Gap 15, Blood Urea Nitrogen 16, Creatinine 0.7, Estimat Glomerular Filtration Rate > 60, Glucose Level 89, Calcium Level 9.0, Total Bilirubin 0.4, Aspartate Amino Transf (AST/SGOT) 46H, Alanine Aminotransferase (ALT/SGPT) 36, Alkaline Phosphatase 405H, Total Protein 7.7, Albumin 3.2L, Globulin 4.5, Albumin/Globulin Ratio 0.7L Current Medications Medications (Trade) Dose Ordered Sig/Sima Route PRN Reason Start Time Stop Time Status Last Admin Dose Admin Albuterol Sulfate (Proventil) 2.5 mg Q3H PRN HHN Shortness of Breath 08/02/16 01:30 08/07/16 01:29 Clotrimazole (Lotrimin) 1 applic EVERY 12 HOURS TOPIC 08/02/16 09:00 09/01/16 08:59 08/04/16 09:09 Docusate Sodium (Colace) 100 mg DAILY GT 08/02/16 09:00 09/01/16 08:59 08/04/16 09:09 Ertapenem/Sodium Chloride (INVanz/Sodium Chloride) 55 ml @ 110 mls/hr Q24H IVPB 08/03/16 20:00 08/08/16 19:59 08/03/16 20:52 Heparin Sodium (Porcine) (Heparin 5000 units/ml) 5,000 units EVERY 12 HOURS SUBQ 08/02/16 09:00 09/01/16 08:59 08/04/16 09:10 Lansoprazole 30 mg 30 mg DAILY GT 08/03/16 09:00 09/02/16 08:59 08/04/16 09:09 Lorazepam (Ativan) 2 mg QIDPRN PRN ORAL For Anxiety 08/02/16 10:15 08/09/16 10:14 Midodrine (Pro-Amatine) 10 mg THREE TIMES A DAY GT 08/02/16 09:00 09/01/16 08:59 08/04/16 09:09 Ondansetron HCl (Zofran) 4 mg Q6H PRN IVP Nausea & Vomiting 08/02/16 01:30 09/01/16 01:29 Potassium Chloride (KCl 10% 40mEq Oral solution) 40 meq DAILY GT 08/02/16 09:00 09/01/16 08:59 08/04/16 09:09 ALBANIA CRAMER August 04, 2016 12:47
--- NOTE | 2016-08-04 13:01 | Diagnostic Imaging Report ---
Indication:Abdominal pain Technique: Grayscale and duplex Doppler imaging of the abdomen performed. Comparison: None Findings: The study is very limited because of body habitus and bowel gas. Portions of anatomy are obscured including portions of the liver, the pancreas, aorta, kidneys. Gallstones are present. Sonographic Morris's is negative per technologist. CBD is 3 m. There is no obvious abnormality of the spleen which appears normal in size. Impression: Cholelithiasis. Very limited exam as discussed
[2016-08-04] MEDS ORDERED: KCl 10% 40mEq/30ml liquid NG ONE (13:30)
[2016-08-04] MEDS ORDERED: LORazepam 1mg tab GT PRN (15:58)
[2016-08-04 16:00] VITALS: BP 100/68
--- NOTE | 2016-08-05 11:04 | Discharge Summary ---
Discharge Summary Hospital Course Date of Admission July 30, 2016 at 02:00 Date of Discharge August 04, 2016 at 19:20 Admitting Diagnosis SEVERE SEPSIS KIZZY Mike is a 61 year old male who was admitted on July 30, 2016 at 02:00 for Severe Sepsis Hospital Course dc summary #[id number] Discharge Discharge Disposition Patient was discharged to SNF/Subacute Facility(03) Discharge Diagnoses: Discharge Instructions Discharge Instructions Special Instructions I have been assigned to complete a D/C Summary on this account. I was not involved in the patient management Taylor Bernard NP ([place]) August 05, 2016 11:04
--- NOTE | 2016-08-06 07:02 | Discharge Summary 2 SIG ---
DATE OF ADMISSION: 07/30/2016 DATE OF DISCHARGE: 08/04/2016 REASON FOR ADMISSION: The patient is a 61-year-old male, chronically ventilator-dependent with tracheostomy, history of the cerebral hemorrhage, dysphagia, G-tube, who presented with respiratory distress and hypotension. The patient by himself was unable to provide any information. Workup in the emergency room revealed low-grade fever of 100, tachycardia 113, blood pressure 65/43, lactic acid 5, WBC 32.2, and potassium 2.8. Chest x-ray revealed left base infiltrate. Urinalysis revealed moderate bacteria, but no pyuria and no nitrates. Central line was placed. The patient was admitted to ICU for further management. ADMITTING DIAGNOSES: 1. Severe sepsis. 2. Urinary tract infection. 3. Pneumonia. 4. Acute on chronic respiratory failure. 5. Ventilator-dependent respiratory failure, tracheostomy status. 6. History of cerebral hemorrhage. 7. Hypokalemia. HOSPITAL STAY: The patient was initially admitted to the ICU and required short time pressors. Shortly, he was able to be weaned off the pressor. Blood pressure was stable. Septic workup was initiated in the emergency room. Fluid resuscitation provided. The patient was pancultured and started on empiric antibiotics. ID consult was requested. Antibiotic regimen was optimized as per ID, based on sensitivity. Blood culture were negative. Urine culture revealed mixed urogenital contaminants. Sputum culture revealed Klebsiella ESBL, Morganella, and Proteus. Stool for C. difficile was negative. Abdominal ultrasound revealed cholelithiasis. Ventilator and tracheostomy care was provided. Ventilator settings were optimized based on ABG readings. Patient on 40% FiO2 with stable pulse oximetry. Strict aspiration precaution were maintained. The patient was able to tolerate G-tube feeding. Potassium was replaced and stable. Blood pressure was stable. Still with leukocytosis, but no fever. Continue antibiotics at the group home facility as per ID recommendation. Sacral decubitus present on admission not grossly infected. Wound care nurse evaluation was requested. Wound care was provided as per the wound care nurse recommendation. The patient was stable for transfer back to the subacute facility. DISCHARGE DIAGNOSES: 1. Severe sepsis. 2. Pneumonia. 3. Acute on chronic respiratory failure. 4. Ventilator associated pneumonia/Healthcare associated pneumonia. 5. Klebsiella, Morganella and Proteus pneumonia. 6. History of cerebral hemorrhage. 7. Dysphagia, gastrostomy tube. 8. Hypokalemia. 9. Sacral decubitus, present on admission. Of note, DISCHARGE MEDICATIONS: A list of medication was sent to the group home facility. Per ID, he needs Invanz for three to five more days in subacute facility. 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 The patient was discharged to subacute group home facility. Boris Arevalo M.D. I have been assigned to dictate discharge summary on this account and I was not involved in the patient's management. Taylor UriosteguiBellevue HospitalIzaiah N.PSammie DR: CARLOTTA JOB#: [id number] CC: ANI
== END 2016-08-04 19:20 | DRG 720 ==
LOC: EDBD 01:27 → EMR 01:43 → ICU 02:00 → EDBEDREQ 03:20 → 2W 08-01 21:34
PROC: 5A1955Z Respiratory Ventilation, Greater than 96 Consecutive Hours (ICD-10-PCS; principal; 2016-07-30)
DX: A41.9 Sepsis, unspecified organism (principal); J96.20 Acute and chronic respiratory failure, unspecified whether with hypoxia or hypercapnia; Z99.11 Dependence on respirator [ventilator] status; J15.0 Pneumonia due to Klebsiella pneumoniae; J15.6 Pneumonia due to other Gram-negative bacteria; Z43.0 Encounter for attention to tracheostomy; R13.10 Dysphagia, unspecified; L89.150 Pressure ulcer of sacral region, unstageable; R65.20 Severe sepsis without septic shock; N39.0 Urinary tract infection, site not specified; Z43.1 Encounter for attention to gastrostomy; B96.4 Proteus (mirabilis) (morganii) as the cause of diseases classified elsewhere; Z16.12 Extended spectrum beta lactamase (ESBL) resistance; E87.6 Hypokalemia; Z88.0 Allergy status to penicillin; Z86.73 Personal history of transient ischemic attack (TIA), and cerebral infarction without residual deficits
CPT/HCPCS: 36415; 36600; 71010; 76700; 80053; 80150; 80202; 81001; 81003; 82550; 82553; 82803; 82962; 83605; 83690; 83735; 83880; 84100; 84439; 84443; 84484; 85007; 85025; 85610; 85730; 87040; 87070; 87081; 87086; 87181; 87205; 87324; 93005; 94002; 94003; J8499

== ENCOUNTER 2016-10-05 09:54 | Inpatient (IN) | payer OTHER ==
[2016-10-05] VITALS (7 sets, daily range): BP systolic 92–113; BP diastolic 57–80
[~2016-10-05] VITALS: Ht 175.3 cm; Wt 66.5 kg
[~2016-10-05 09:54] MED LIST changes: +LORAZEPAM2 MG GT; -PERIDEX 0.12% O16 OZ MT; +PERIDEX 0.12% O16 OZ ORAL; +POTASSIUM30 MEQ/22. GT; +SIMVASTATIN40 MG ORAL; +ZOFRAN4 M3 ORAL
[2016-10-05] MEDS ORDERED: HEPARIN SO5000 UNIT2 SUBQ (10:52)
[2016-10-05] MEDS ORDERED: UTI-STAT L3875 MG/31 GT (10:54)
[2016-10-05] MEDS ORDERED: VITAMIN C500 M1 GT (10:54)
[2016-10-05] MEDS ORDERED: Vancomycin 1.5gm/D5W 250ml 250 ML IVPB ONE (11:30)
[2016-10-05] MEDS ORDERED: Acetaminophen 650mg/20.3ml GT ONE (11:30)
[2016-10-05] MEDS ORDERED: Clindamycin 900mg 50 ML IVPB ONE (11:30)
[2016-10-05] MEDS ORDERED: Pantoprazole Inj IVP ONE (11:45)
[2016-10-05] MEDS ORDERED: Pantoprazole 80 MG in NS 250 ML IV ONE (11:45)
[2016-10-05 12:11] LABS: MEAN CORPUSCULAR HEMOGLOBIN 28.5 PG (27.0-31.0); MEAN CORPUSCULAR HGB CONC 31.7 G/DL (32.0-36.0); MEAN CORPUSCULAR VOLUME 90 FL (80-99); MEAN PLATELET VOLUME 10.2 FL (6.5-10.1); PLATELET COUNT 277 K/UL (150-450); RED BLOOD COUNT 5.86 M/UL (4.70-6.10); RED CELL DISTRIBUTION WIDTH 14.1 % (11.6-14.8); WHITE BLOOD COUNT 21.5 K/UL (4.8-10.8)
[2016-10-05 12:23] LABS: INR 1.2 (0.9-1.1); PROTHROMBIN TIME 12.4 SEC (9.30-11.50)
[2016-10-05 12:28] LABS: TROPONIN I < 0.30 ng/mL (<=0.30)
[2016-10-05 12:32] LABS: ALANINE AMINOTRANSFERASE 60 U/L (3-41); ALBUMIN/GLOBULIN RATIO 0.7 (1.0-2.7); ANION GAP 17 (5-15); ASPARTATE AMINO TRANSFERASE 59 U/L (5-40); CARBON DIOXIDE 23 mEQ/L (20-30); CHLORIDE 93 mEQ/L (98-107); CREATININE 0.7 mg/dL (0.7-1.2); GLOMERULAR FILTRATION RATE > 60 mL/min (>60); HEMOLYSIS 115; LIPASE 43 U/L (< 60); POTASSIUM 3.7 mEQ/L (3.4-4.9); SODIUM 133 mEQ/L (135-145); TOTAL PROTEIN 8.4 g/dL (6.6-8.7)
[2016-10-05 12:35] LABS: REFLEX LACTIC ACID YES OR NO YES
[2016-10-05 12:36] LABS: ANISOCYTOSIS 1+; BAND NEUTROPHILS % (MANUAL) 3 % (0-8); BASOPHILS % (MANUAL) 0 % (0-2); EOSINOPHILS % (MANUAL) 0 % (0-3); LYMPHOCYTES % (MANUAL) 5 % (20-45); NEUTROPHILS % (MANUAL) 84 % (45-75); PLATELET ESTIMATE ADEQUATE; PLATELET MORPHOLOGY NORMAL; TOTAL CELLS COUNTED 100
[2016-10-05] MEDS ORDERED: Miralax 17gm pkt ORAL PRN (13:30)
[2016-10-05] MEDS ORDERED: Nitroglycerin Subl 0.4mg tab (Bottle Of 25) SL PRN (13:30)
[2016-10-05] MEDS ORDERED: Morphine Sulfate 2mg/ml Inj IVP PRN (13:30)
[2016-10-05] MEDS ORDERED: Mylanta II UD 30ml ORAL PRN (13:30)
[2016-10-05] MEDS: Midodrine 10mg tab GT SCH ×2 (16:12→22:33)
--- NOTE | 2016-10-05 16:30 | Emergency Room Report ---
History of Present Illness General Chief Complaint: Vomiting Source: Medical Record Present Illness HPI [id number] sent from SNF with alleged coffee-ground emesis today. No other info from SNF, EMS, family members Patient aphasic, trach/vent Allergies: Coded Allergies: OXYTETRACYCLINE (Unverified Allergy, Unknown, 09/05/13) PENICILLINS (Unverified Allergy, Unknown, 09/05/13) Uncoded Allergies: PLASTIC TAPE (Allergy, Mild, ITCHINESS, 08/08/15) Patient History Past Medical History: see triage record, old chart reviewed Past Surgical History: unable to obtain Pertinent Family History: unable to obtain Social History: Denies: alcohol use, drug use, smoking Immunizations: UTD Reviewed Nursing Documentation: PMH: Agreed, PSxH: Agreed Nursing Documentation-PMH Past Medical History: No History, Except For Hx Hypertension: Yes Hx COPD: Yes - Trach, Vent dependent Hx Diabetes: Yes - DM2, foot ulcers Hx Cancer: No Hx Gastrointestinal Problems: Yes - GERD Hx Dialysis: No - ESRD Hx Transient Ischemic Attacks: Yes Hx Dementia: Yes Hx Parkinson's Disease: Yes Review of Systems All Other Systems: limited - patient aphasic Physical Exam Vital Signs Date Time Temp Pulse Resp B/P Pulse Ox O2 Delivery O2 Flow Rate FiO2 10/05/16 09:50 100.4 120 16 113/80 97 Mechanical Ventilator 40 10/05/16 10:00 5.0 Sp02 EP Interpretation: reviewed, abnormal General Appearance: normal inspection, well appearing, no apparent distress, mild distress, obese, other - Bilateral upper extremity contractures Head: normocephalic Eyes: bilateral eye EOMI, bilateral eye PERRL ENT: normal ENT inspection, normal pharynx Neck: normal inspection, full range of motion, supple, no bony tend Respiratory: normal inspection, lungs clear, normal breath sounds, no respiratory distress, no retraction, no wheezing Cardiovascular #1: regular rate, rhythm, no edema Gastrointestinal: normal inspection, normal bowel sounds, soft, no hernia, distended Genitourinary: no CVA tenderness Musculoskeletal: normal inspection, back normal, normal range of motion, Milton' s Sign negative Neurologic: normal inspection, alert, responsive, shoes hand sewer III-XII nml as tested, speech normal Psychiatric: normal inspection, judgement/insight normal, mood/affect normal Skin: normal inspection, normal color, no rash Medical Decision Making Diagnostic Impression: Primary Impression: Sepsis Qualified Codes: A41.9 - Sepsis, unspecified organism Additional Impressions: Coffee ground emesis Abdominal distension Peritonitis ER Course Coffee-ground emesis - Likely from obstruction from volvulus - Associated sepsis, elevated Lactate, shock liver - Empiric Abx given - CTAP: Read as gas in colon 7-8cm dilated. No SBO. no free air. No pneumotosis intestinalis. However, clinically very distended and with elevated leuks, lactate Concern for peritoneal abdomen, ischemic bowel. ?sigmoid volvulus GenSurg consulted, Dr Barrett 445pm. Endorsed to Dr Rudd for tele admigt at 4pm EKG Diagnostic Results Rate: normal Rhythm: NSR ST Segments: no acute changes ASA given to the pt in ED: No Rhythm Strip Diag. Results EP Interpretation: yes Rate: 80 Rhythm: NSR, no PVC's, no ectopy Last Vital Signs Date Time Temp Pulse Resp B/P Pulse Ox O2 Delivery O2 Flow Rate FiO2 10/05/16 16:00 93 24 111/72 97 T-piece 5.0 40 10/05/16 14:15 98.6 Status: improved Disposition: ADMITTED INPATIENT Condition: Critical Referrals: ESTEFANY RUBI (PCP) KADEEM PRIETO M.D. Oct 05, 2016 16:30
[2016-10-05] MEDS: D5 1/2NS 1,000 ML IV SCH (20:38)
[2016-10-05] MEDS: Heparin 5000 units/ml inj SUBQ SCH (20:57)
[2016-10-05] MEDS ORDERED: Piperacillin/Tazobactam 3.375 GM in NS 110 ML IVPB SCH (21:30)
[2016-10-05] MEDS: Aztreonam 1gm in D5W 55ml IVPB SCH (22:33)
[2016-10-06] VITALS (8 sets, daily range): BP systolic 88–141; BP diastolic 54–74
--- NOTE | 2016-10-06 03:15 | Consultation ---
DATE OF CONSULTATION: 10/05/2016 SURGICAL CONSULTATION REASON FOR CONSULTATION: Abdominal distention and sigmoid volvulus. HISTORY OF PRESENT ILLNESS: This is a 61-year-old male, who is a resident of an extended care facility, who was admitted with abdominal distention as well as coffee-ground emesis. The patient is ventilator dependent and has a tracheostomy and gastrostomy tube. PAST MEDICAL HISTORY: Significant for a cerebral hemorrhage followed by respiratory failure. He required mechanical ventilation and had to undergo a tracheostomy. He also underwent a gastrostomy tube because of inability to swallow. MEDICATIONS: Include pantoprazole 40 mg per day, lorazepam 2 mg b.i.d. for agitation. He is on multiple colonic laxatives including magnesium hydroxide, docusate sodium, Dulcolax, and polyethylene glycol. He is also on thiamine 100 mg daily, aspirin 81 mg daily, midodrine 100 mg t.i.d., potassium chloride 40 mEq via G-tube, amantadine 100 mg daily, albuterol sulfate, ipratropium bromide inhalation therapy every four hours. ALLERGIES: To tetracycline and penicillin. SOCIAL HISTORY: Tobacco, none. Alcohol, none. FAMILY HISTORY: Noncontributory. REVIEW OF SYSTEMS: Unobtainable. PHYSICAL EXAMINATION: GENERAL: Reveals a bedridden and pale male with abdominal distention. HEENT: Normocephalic. Pupils are equal and reactive to light. There was no scleral icterus. NECK: Supple without adenopathy. LUNGS: Clear. HEART: Showed a regular rhythm. ABDOMEN: Abdomen was distended. There is a gastrostomy tube in place. EXTREMITIES: Showed flexion contractures in both lower extremities. LABORATORY AND DIAGNOSTIC STUDIES: CBC showed a white blood count of 21,500, hemoglobin 15.7 grams percent, hematocrit 52.7%, and platelet count 277,000. Serum electrolytes showed a sodium of 133, potassium 3.7, chloride 93, bicarbonate 23, BUN 21, creatinine 0.7, glucose 152. Total bilirubin 0.8, SGOT elevated to 60, SGPT elevated to 69, alkaline phosphatase 453. Lipase normal at 43. Prothrombin time 12.4 seconds with an INR of 1.2 and PTT [address] scan of the abdomen and pelvis showed gaseous distention of the colon with a sigmoid distended to 8 cm in caliber. A transverse colon was also distended to 7 cm. The right colon was normal in caliber. There was no cecal distention there was no small bowel obstruction. There was no pneumatosis intestinalis or portal venous gas. A CT scan also showed cholelithiasis. The patient underwent placement of a rectal tube in the emergency room. There was some decompression of the colon. A KUB showed the rectal tube in the pelvis. There was still some persistent dilatation of the proximal sigmoid and transverse colon. IMPRESSION: Sigmoid volvulus. PLAN: The patient should be seen by the crossband layer for a possible decompressive colonoscopy. Neptali Barrett M.D. DR: Colleen JOB#: [id number] CC:
[2016-10-06 05:23] LABS: BASOPHILS % (AUTO) 0.8 % (0.0-2.0); EOSINOPHILS % (AUTO) 2.9 % (0.0-3.0); LYMPHOCYTES % (AUTO) 17.5 % (20.0-45.0); MEAN CORPUSCULAR HEMOGLOBIN 30.2 PG (27.0-31.0); MEAN CORPUSCULAR HGB CONC 33.5 G/DL (32.0-36.0); MEAN CORPUSCULAR VOLUME 90 FL (80-99); MEAN PLATELET VOLUME 11.2 FL (6.5-10.1); NEUTROPHILS % (AUTO) 72.8 % (45.0-75.0); PLATELET COUNT 215 K/UL (150-450); WHITE BLOOD COUNT 11.9 K/UL (4.8-10.8)
[2016-10-06] MEDS: Aztreonam 1gm in D5W 55ml IVPB SCH ×2 (05:39→15:43)
[2016-10-06] MEDS: Midodrine 10mg tab GT SCH ×3 (05:39→21:42)
[2016-10-06] MEDS: D5 1/2NS 1,000 ML IV SCH ×3 (06:13→21:50)
[2016-10-06 06:17] LABS: ALANINE AMINOTRANSFERASE 37 U/L (3-41); ALBUMIN/GLOBULIN RATIO 0.7 (1.0-2.7); AMYLASE 42 U/L (10-110); ANION GAP 13 (5-15); ASPARTATE AMINO TRANSFERASE 29 U/L (5-40); CALCIUM 8.6 mg/dL (8.6-10.2); CARBON DIOXIDE 23 mEQ/L (20-30); CHLORIDE 103 mEQ/L (98-107); CREATININE 0.6 mg/dL (0.7-1.2); GLOMERULAR FILTRATION RATE > 60 mL/min (>60); HEMOLYSIS 32; LIPASE 36 U/L (< 60); SODIUM 139 mEQ/L (135-145); TOTAL PROTEIN 6.4 g/dL (6.6-8.7)
[2016-10-06 06:24] LABS: POTASSIUM 2.7 mEQ/L (3.4-4.9)
--- NOTE | 2016-10-06 09:18 | Diagnostic Imaging Report ---
Indication: Abdominal pain Technique: Continuous helical transaxial imaging of the abdomen and pelvis was obtained from the lung bases to the pubic symphysis during intravenous contrast administration. Coronal 2-D reformats were also obtained. Study obtained in a Siemens sensation [address] Total Dose length Product (DLP): [address] Dose Index Volume (CTDIvol): 19 mGy Comparison: None Findings: There is basilar consolidation with air bronchograms bilaterally. There is breathing motion artifact present. The right hemidiaphragm is elevated. There is interposition of the hepatic flexure between the diaphragm and liver. Hiatal hernia noted. Gastrostomy noted. The gallbladder is contracted and densely calcified. In addition there may be intraluminal stones. There is a suggestion of small stones within both kidneys at the level of the calyces. There is no hydronephrosis demonstrated. There are small stones within the urinary bladder. The appendix is normal. Arterial vascular calcifications are present. Spleen and pancreas are unremarkable. There is moderate distention of aerated:. There is a complex stool within the rectal vault. Please correlate clinically for diarrhea and gastroenteritis. Bones are osteopenic. There is an anterolisthesis of L5 on S1 and bilateral pars interarticularis defects at L5. There is a focus of metal artifact just anterior to the sacrococcygeal junction and posterior to the rectum. This might be in the rectum are possibly in the wall or just outside of it. There is moderate streak artifact associated with the metal focus. Impression: Posterior basilar consolidation. Pneumonia suspected. Please correlate clinically. Multiple urinary tract stones including nonobstructive calyceal stones and multiple bladder stones. Contracted porcelain gallbladder. Gallstones may be present as well. Distention of the rectum with liquefied stool. Correlate for diarrhea. Atherosclerotic disease. L5 spondylolysis. Grade 1 spondylolisthesis L5 on S1. Interposition of the hepatic flexure between the diaphragm and liver. This is a normal variant. Gastrostomy. [facility] has communicated the preliminary results to the Emergency Department. Their findings are largely concordant with this report. The CT scanner at [facility] is accredited by the [employer] and the scans are performed using dose optimization techniques as appropriate to a performed exam including Automatic Exposure control.
[2016-10-06] MEDS: Pantoprazole Inj IVP SCH (09:21)
[2016-10-06] MEDS: Heparin 5000 units/ml inj SUBQ SCH ×2 (09:23→21:44)
--- NOTE | 2016-10-06 10:30 | History and Physical ---
History of Present Illness General Date patient seen: Oct 06, 2016 Reason for Hospitalization: Vomiting Present Illness HPI 61-year-old male, with hx of cerebral hemorrhage followed by respiratory failure on mechanical ventilation s/p tracheostomy resident of an extended care facility, who was admitted with abdominal distention as well as coffee-ground emesis. He had a CT abdomen already showing Volvolus, surgery and GI consult are called already. Allergies: Coded Allergies: OXYTETRACYCLINE (Unverified Allergy, Unknown, 09/05/13) PENICILLINS (Unverified Allergy, Unknown, 09/05/13) Uncoded Allergies: PLASTIC TAPE (Allergy, Mild, ITCHINESS, 08/08/15) Medication History Scheduled Acetaminophen (Tylenol), 650 MG GT DAILY, (Reported) Acidophilus/Bulgaricus (Lactinex Chewable Tablet), 1 EACH GT TID, (Reported) Albuterol Sulfate* (Albuterol Sulfate Hhn*), 3 ML INH Q6H, (Reported) Amantadine Hcl* (Amantadine*), 100 MG ORAL DAILY, (Reported) Ascorbic Acid* (Vitamin C*), 500 MG ORAL DAILY, (Reported) Ascorbic Acid* (Vitamin C*), 500 MG GT DAILY, (Reported) Aspirin* (Aspir 81*), 81 MG ORAL DAILY, (Reported) Aspirin* (Aspir 81*), 81 MG ORAL DAILY, (Reported) Bisacodyl* (Dulcolax*), 10 MG ORAL DAILY, (Reported) Bisacodyl* (Dulcolax*), 10 MG RECTAL ONCE, (Reported) Chlorhexidine Gluconate (Chlorhexidine Gluconate), 15 ML ORAL TWICE A DAY, ( Reported) Cholecalciferol (Vitamin D3)* (Vitamin D*), 5,000 UNIT GT DAILY, (Reported) Cran/Vitc/Mannose/Inulin/Brom (Uti-Stat Liquid), 30 ML GT BID, (Reported) Cran/Vitc/Mannose/Inulin/Brom (Uti-Stat Liquid), 30 ML GT TWICE A DAY, (Reported ) Dextran 70/Hypromellose (Artificial Tears Eye Drops), 1 DROP BOTH EYES BID, ( Reported) Docusate Sodium* (Docusate Sodium*), 100 MG GT TWICE A DAY, (Reported) Docusate Sodium* (Colace*), 100 MG GT TWICE A DAY, (Reported) Enoxaparin* (Lovenox*), 40 MG SUBQ DAILY, (Reported) Famotidine (Famotidine), 20 MG GT DAILY, (Reported) Folic Acid* (Folic Acid*), 1 MG GT DAILY, (Reported) Heparin Sod (Porcine) (Heparin Sodium*), 5,000 UNITS SUBQ EVERY 12 HOURS, ( Reported) Ipratropium [place] (Atrovent Hfa), 0.5 MG HHN Q6HR, (Reported) Magnesium Hydroxide* (Milk Of Magnesia*), 30 ML ORAL DAILY, (Reported) Midodrine* (Proamatine*), 10 MG GT Q8HR, (Reported) Multivitamin Liquid* (Multi-Delyn*), 5 ML GT DAILY, (Reported) Omeprazole (Omeprazole), 20 MG GT DAILY, (Reported) Polyethylene Glycol 3350* (Miralax*), 17 GM GT DAILY, (Reported) Potassium Chloride (Potassium Chloride), 40 MEQ GT DAILY, (Reported) Simvastatin (Zocor), 40 MG GT BEDTIME, (Reported) Simvastatin (Zocor), 40 MG ORAL BEDTIME, (Reported) Thiamine Hcl* (Vitamin B-1*), 100 MG GT DAILY, (Reported) Zinc Sulfate (Zinc Sulfate*), 220 MG GT DAILY, (Reported) Scheduled PRN Acetaminophen (Acetaminophen), 650 MG ORAL Q4HR PRN for Prn Headache/Temp > 101, (Reported) Acetaminophen (Tylenol), 325 MG GT Q6H PRN for For Pain, (Reported) Acetaminophen* (Tylenol Extra Strength*), 650 MG GT Q6H PRN for Mild Pain/Temp > 100.5, (Reported) Albuterol Sulfate* (Albuterol Sulfate Hhn*), 3 ML INH Q3HR PRN for Shortness of Breath, (Reported) Hydrocodone Bit/Acetaminophen 10-325* ([place] 10-325*), 1 TAB GT Q12HR PRN for For Pain, (Reported) Hydrocodone/Acetaminophen (Hydrocodon-Acetaminophn 10-325), 1 TAB ORAL EVERY 12 HOURS PRN for For Pain, (Reported) Lorazepam* (Lorazepam*), 0.5 MG GT Q6HR PRN for For Anxiety, (Reported) Magnesium Hydroxide* (Milk Of Magnesia*), 30 ML GT DAILY PRN for Constipation, ( Reported) Ondansetron* (Zofran*), 4 MG ORAL Q6H PRN for Nausea & Vomiting, (Reported) Tramadol Hcl* (Ultram*), 50 MG GT Q12HR PRN for For Pain, (Reported) Miscellaneous Medications Al Hydroxide/mg Hydroxide (Mag-Al Liquid), 30 ML GT, (Reported) Insulin Lispro (Humalog), 0 SUBQ, (Reported) Patient History Healthcare decision maker Resuscitation status Full Code Advanced Directive on File Past Medical/Surgical History Past Medical/Surgical History: (1) Tracheostomy in place (2) senior living resident (3) Chronic respiratory failure (4) History of CVA (cerebrovascular accident) (5) Feeding by G-tube Review of Systems All Other Systems: negative except mentioned in HPI Physical Exam General Appearance: WD/WN Lines, tubes and drains: trach, gtube HEENT: normocephalic, atraumatic Neck: non-tender, normal alignment Respiratory/Chest: chest wall non-tender, lungs clear, normal breath sounds Cardiovascular/Chest: normal peripheral pulses, regular rhythm Abdomen: normal bowel sounds, non tender, distended Genitourinary/Rectal: normal genital exam Extremities: normal range of motion Last 24 Hour Vital Signs Date Time Temp Pulse Resp B/P Pulse Ox O2 Delivery O2 Flow Rate FiO2 10/06/16 08:53 79 18 40 10/06/16 08:00 98.4 72 18 92/59 96 Mechanical Ventilator 40 10/06/16 08:00 76 10/06/16 08:00 40 10/06/16 07:09 78 14 40 10/06/16 05:05 76 12 40 10/06/16 04:00 40 10/06/16 04:00 98.5 76 18 89/54 98 Mechanical Ventilator 40 10/06/16 04:00 76 10/06/16 03:05 83 16 40 10/06/16 01:15 81 16 40 10/06/16 00:00 98.4 80 18 88/59 98 Mechanical Ventilator 40 10/06/16 00:00 69 10/06/16 00:00 40 10/05/16 23:18 70 12 40 10/05/16 21:08 83 21 40 10/05/16 20:30 97.5 75 16 92/59 97 Mechanical Ventilator 40 10/05/16 20:30 75 10/05/16 20:30 40 10/05/16 20:15 40 10/05/16 19:30 98.9 77 13 95/57 97 Mechanical Ventilator 40 10/05/16 18:37 74 13 40 10/05/16 18:00 77 18 95/57 97 Mechanical Ventilator 40 10/05/16 17:30 98.9 93 16 102/66 97 Mechanical Ventilator 40 10/05/16 17:10 79 14 40 10/05/16 16:00 93 20 111/72 97 Mechanical Ventilator 97 10/05/16 15:20 93 22 40 10/05/16 14:15 98 18 106/58 97 Mechanical Ventilator 40 10/05/16 12:56 101.1 10/05/16 12:50 115 17 40 10/05/16 11:00 117 17 40 10/05/16 11:00 117 17 Mechanical Ventilator 40 Intake and Output 10/05/16 10/06/16 19:00 07:00 Intake Total 300 ml 912 ml Output Total 30 ml 1050 ml Balance 270 ml -138 ml Intake IV Total 300 ml 812 ml Other 100 ml Output Urine Total 700 ml Stool Total 350 ml Emesis 30 ml # Bowel Movements 4 Laboratory Tests Test 10/05/16 11:15 10/05/16 16:50 10/06/16 04:25 White Blood Count 21.5 K/UL (4.8-10.8) H 11.9 K/UL (4.8-10.8) H Red Blood Count 5.86 M/UL (4.70-6.10) 4.20 M/UL (4.70-6.10) L Hemoglobin 16.7 G/DL (14.2-18.0) 12.7 G/DL (14.2-18.0) L Hematocrit 52.7 % (42.0-52.0) H 37.9 % (42.0-52.0) L Mean Corpuscular Volume 90 FL (80-99) 90 FL (80-99) Mean Corpuscular Hemoglobin 28.5 PG (27.0-31.0) 30.2 PG (27.0-31.0) Mean Corpuscular Hemoglobin Concent 31.7 G/DL (32.0-36.0) L 33.5 G/DL (32.0-36.0) Red Cell Distribution Width 14.1 % (11.6-14.8) 14.0 % (11.6-14.8) Platelet Count 277 K/UL (150-450) 215 K/UL (150-450) Mean Platelet Volume 10.2 FL (6.5-10.1) H 11.2 FL (6.5-10.1) H Neutrophils (%) (Auto) % (45.0-75.0) 72.8 % (45.0-75.0) Lymphocytes (%) (Auto) % (20.0-45.0) 17.5 % (20.0-45.0) L Monocytes (%) (Auto) % (1.0-10.0) 6.0 % (1.0-10.0) Eosinophils (%) (Auto) % (0.0-3.0) 2.9 % (0.0-3.0) Basophils (%) (Auto) % (0.0-2.0) 0.8 % (0.0-2.0) Differential Total Cells Counted 100 Neutrophils % (Manual) 84 % (45-75) H Lymphocytes % (Manual) 5 % (20-45) L Monocytes % (Manual) 8 % (1-10) Eosinophils % (Manual) 0 % (0-3) Basophils % (Manual) 0 % (0-2) Band Neutrophils 3 % (0-8) Platelet Estimate Adequate Platelet Morphology Normal Anisocytosis 1+ Prothrombin Time 12.4 SEC (9.30-11.50) H Prothromb Time International Ratio 1.2 (0.9-1.1) H Activated Partial Thromboplast Time 28 SEC (23-33) 34 SEC (23-33) H Sodium Level 133 mEQ/L (135-145) L 139 mEQ/L (135-145) Potassium Level 3.7 mEQ/L (3.4-4.9) 2.7 mEQ/L (3.4-4.9) *L Chloride Level 93 mEQ/L (98-107) L 103 mEQ/L (98-107) Carbon Dioxide Level 23 mEQ/L (20-30) 23 mEQ/L (20-30) Anion Gap 17 (5-15) H 13 (5-15) Blood Urea Nitrogen 21 mg/dL (7-23) 14 mg/dL (7-23) Creatinine 0.7 mg/dL (0.7-1.2) 0.6 mg/dL (0.7-1.2) L Estimat Glomerular Filtration Rate > 60 mL/min (>60) > 60 mL/min (>60) Glucose Level 152 mg/dL (74-106) H 133 mg/dL (74-106) H Lactic Acid Level 3.20 mmol/L (0.66-2.22) H 1.70 mmol/L (0.66-2.22) Calcium Level 10.0 mg/dL (8.6-10.2) 8.6 mg/dL (8.6-10.2) Total Bilirubin 0.8 mg/dL (0.0-1.2) 0.5 mg/dL (0.0-1.2) Aspartate Amino Transf (AST/SGOT) 59 U/L (5-40) H 29 U/L (5-40) Alanine Aminotransferase (ALT/SGPT) 60 U/L (3-41) H 37 U/L (3-41) Alkaline Phosphatase 453 U/L (40-129) H 317 U/L (40-129) H Total Creatine Kinase 53 U/L (38-174) Creatine Kinase MB 2.0 ng/mL (< 6.7) Creatine Kinase MB Relative Index 3.7 Troponin I < 0.30 ng/mL (<=0.30) Total Protein 8.4 g/dL (6.6-8.7) 6.4 g/dL (6.6-8.7) L Albumin 3.5 g/dL (3.5-5.2) 2.8 g/dL (3.5-5.2) L Globulin 4.9 g/dL 3.6 g/dL Albumin/Globulin Ratio 0.7 (1.0-2.7) L 0.7 (1.0-2.7) L Lipase 43 U/L (< 60) 36 U/L (< 60) Amylase Level 42 U/L (10-110) Height (Feet): 5 Height (Inches): 9.00 Weight (Pounds): 146 Medications Current Medications Medications (Trade) Dose Ordered Sig/Sima Route PRN Reason Start Time Stop Time Status Last Admin Dose Admin Acetaminophen (Tylenol) 650 mg Q4H PRN ORAL fever 10/05/16 13:30 11/04/16 13:29 Al Hydroxide/Mg Hydroxide (Mylanta II) 30 ml Q6H PRN ORAL dyspepsia 10/05/16 13:30 11/04/16 13:29 Aztreonam 1 gm/ Dextrose 55 ml @ 110 mls/hr Q8HR IVPB 10/05/16 23:00 10/12/16 22:59 10/06/16 05:39 Dextrose (Dextrose 50%) STAT PRN IV Hypoglycemia 10/05/16 13:30 11/04/16 13:29 Dextrose/Sodium Chloride (D5 0.45% NS) 1,000 ml @ 75 mls/hr [id number] IV 10/05/16 15:45 11/04/16 15:44 10/06/16 06:13 Diphenhydramine HCl (Benadryl) 25 mg Q6H PRN ORAL Itching/Pruritis 10/05/16 13:30 11/04/16 13:29 Heparin Sodium (Porcine) (Heparin 5000 units/ml) 5,000 units EVERY 12 HOURS SUBQ 10/05/16 21:00 11/04/16 20:59 10/06/16 09:23 Midodrine 10 mg 10 mg Q8HR GT 10/05/16 15:45 11/04/16 15:44 10/06/16 05:39 Morphine Sulfate (Morphine Sulfate) 2 mg Q4H PRN IVP severe Pain (Pain Scale 7-10) 10/05/16 13:30 10/12/16 13:29 Nitroglycerin (Ntg) 0.4 mg Q5M X 3 DOSES PRN SL Prn Chest Pain 10/05/16 13:30 11/04/16 13:29 Ondansetron HCl (Zofran) 4 mg Q6H PRN IVP Nausea & Vomiting 10/05/16 13:30 11/04/16 13:29 Pantoprazole 40 mg 40 mg DAILY IVP 10/06/16 09:00 11/05/16 08:59 10/06/16 09:21 Polyethylene Glycol (Miralax) 17 gm HSPRN PRN ORAL Constipation 10/05/16 13:30 11/04/16 13:29 Potassium Chloride (KCl 10mEq/100ml Premix) 100 ml @ 100 mls/hr Q1H IVPB 10/06/16 09:00 10/06/16 12:59 10/06/16 10:14 Temazepam (Restoril) 15 mg HSPRN PRN ORAL Insomnia 10/05/16 13:30 10/12/16 13:29 Assessment/Plan Problem List: (1) Respiratory failure, acute and chronic ICD Codes: J96.20 - Respiratory failure, acute and chronic SNOMED: 30447931 (2) Coffee ground emesis ICD Codes: K92.0 - Hematemesis SNOMED: 036077123, 25803507 (3) Severe sepsis ICD Codes: A41.9 - Sepsis, unspecified organism; R65.20 - Severe sepsis without septic shock SNOMED: 67572001 (4) senior living resident ICD Codes: Z59.3 - Problems related to living in residential institution SNOMED: 782101136 (5) History of CVA (cerebrovascular accident) ICD Codes: Z86.73 - History of CVA (cerebrovascular accident) SNOMED: 044654200 (6) Feeding by G-tube ICD Codes: Z93.1 - Feeding by G-tube SNOMED: 661315449 Assessment/Plan NPO IV fluids titrate vent setting GI /surgery evaluation mims culture IV antibiotics check electrolytes dvt prophylaxis. ALBAN[place] CRAMER Oct 06, 2016 10:30
[2016-10-06] MEDS ORDERED: KCl 10% 20 mEq/15ml liquid NG ONE (10:45)
--- NOTE | 2016-10-06 12:07 | Consultation ---
Consult Note Consult Note ID DIC # [id number] MARCELLA MA M.D. Oct 06, 2016 12:07
--- NOTE | 2016-10-06 12:15 | Consultation ---
DATE OF CONSULTATION: 10/06/2016 CHIEF COMPLAINT: Coffee-grounds emesis. HISTORY OF PRESENT ILLNESS: Most of the history per chart. The patient is on a vent and PEG, unable to give any history. Lives in a half-way, was transferred with possible coffee-ground emesis and sepsis. PAST MEDICAL HISTORY: 1. Dysphagia. 2. Status post G-tube placement. 3. Chronic respiratory failure, on the trach and vent. 4. History of diabetes. 5. Anemia. 6. Parkinson disease. 7. Hypertension. 8. Pneumonia. 9. Kidney stones. PAST SURGICAL HISTORY: Tracheostomy. ALLERGIES: 1. Oxytetracyclines. 2. Penicillin. 3. Plastic . FAMILY HISTORY: Noncontributory. SOCIAL HISTORY: Currently lives in the half-way. No recent history of tobacco, alcohol, or illicit drug abuse. REVIEW OF SYSTEMS: Unable to obtain. PHYSICAL EXAMINATION: VITAL SIGNS: Temperature 98.4 degrees, pulse 72, respirations 18, and blood pressure is 92/59. HEENT: Normocephalic and atraumatic. Sclerae anicteric. NECK: Supple. No lymphadenopathy. CARDIOVASCULAR: Tachy. Regular rate. Plus S1 and S2. LUNGS: Decreased breath sounds bilaterally, especially right compared to left. ABDOMEN: Soft. G-tube in place. Bowel sounds are hypoactive. Abdomen is mildly distended. Mildly tympanic to percussion. No rebound. No guarding. No peritoneal signs. EXTREMITIES: No cyanosis. No clubbing. No edema. LABORATORY DATA: Sodium 139, potassium 3.7, BUN is 14, and creatinine 0.6. White count 11.9, hemoglobin 12.7, hematocrit 37.9, and platelets are 215,000. ASSESSMENT AND PLAN: This is a 61-year-old male with history of anemia and dysphagia. I reviewed the CT scan with the radiologist. There is no obvious ileus. Colon mildly distended throughout maybe minimum colonic ileus but there is no obvious . Plan to resume tube feeding. Given the stable H and H, continue on PPI twice a day. DVT prophylaxis. Bowel regimen. The patient currently has a rectal tube. We will monitor. I want to thank, Dr. Rudd, for this kind referral. Gaurav Quintin Rosas DR: DES JOB#: [id number] CC: Sagar Rudd M.D.; Fax#: [phone]
--- NOTE | 2016-10-06 12:16 | Diagnostic Imaging Report ---
Indication: Abdominal pain Comparison: None Single view of the abdomen obtained There is a catheter projected over the pelvis. Bowel gas pattern is nonspecific as visualized. There is contrast within portions of large and small bowel. There is contrast in the bladder. Impression: Catheter projected over the pelvis presumably a rectal tube.
--- NOTE | 2016-10-06 12:42 | Diagnostic Imaging Report ---
Indication: Dyspnea Comparison: 08/03/16 A single view chest radiograph was obtained. Findings: Left perihilar infiltrate suspected. Heart size is normal. Aorta is moderately enlarged. Tracheostomy and generalized osteopenia noted. Dilated bowel noted in the visualized upper abdomen. Impression: Left perihilar infiltrate suspected. Please correlate clinically.
--- NOTE | 2016-10-06 13:52 | Wound Care Consultation ---
Wound Assessment Wound Assessment #1: Wound Number: #1 Wound Present on Admission: Yes New Wound: No Status Change of Wound: No Wound Location Body Site Modif: left Wound Location Body Site: ischial tuberosity Wound Type: pressure ulcer Abhishek Test: Does not Abhishek Pressure Ulcer Stage: deep tissue injury - suspected Wound Thickness: Full Thickness Wound Length: 7.0 Wound Width: 5.0 Wound Depth: utd Percent of Wound Harcourt/Red: 50 Percent of Wound Purple/Maroon: 50 Wound Drainage Amount: None Wound Drainage Odor: None/Absent Tissue Surrounding Wound: Intact - erythemic Wound General Appearance: Reddened Wound Assessment #2: Wound Number: #2 Wound Present on Admission: Yes New Wound: No Status Change of Wound: No Wound Location Body Site Modif: mid Wound Location Body Site: sacral Wound Type: pressure ulcer Abhishek Test: Does not Abhishek Pressure Ulcer Stage: IV/unstageable - unstageable. Wound Thickness: Full Thickness Wound Length: 2.0 Wound Width: 2.0 Wound Depth: utd Percent of Wound Harcourt/Red: 10 Percent of Wound Bed Yellow/Wh: 90 Other Colors Identified: noted marroon deep tissue injury to surrounding sacral 10.0 cm x 8.0cmxdti Wound Drainage Description: Serosanguineous Wound Drainage Amount: Moderate Wound Drainage Odor: None/Absent Tissue Surrounding Wound: Macerated Wound General Appearance: Reddened, Necrotic Wound Comment #1 Left ischial tuberosity suspected deep tissue injury. #2 Mid Sacral unstageable pressure ulcer. #3 Mid sacral deep tissue injury noted to surrounding unstageable pressure ulcer. Recommendation. - Local wound care as ordered. - Apply low air loss p200 mattress. -Keep clean and dry. -Optimize nutrition. - Turn and reposition. - Heel protectors. -Avoid shear and friction. -Assess and notify MD for any change of condition noted to skin. ZHANG HUFFMAN Oct 06, 2016 13:52
[2016-10-06] MEDS: metroNIDAZOLE 500mg 100 ML IVPB SCH ×2 (13:57→21:42)
[2016-10-06] MEDS: Vancomycin 1250mg/D5W 250ml IVPB SCH (13:57)
[2016-10-06] MEDS ORDERED: D5 1/2NS 1000ml IV ONE (14:41)
[2016-10-06] MEDS ORDERED: Tubing IV Secondary IV ONE (14:41)
--- NOTE | 2016-10-06 17:45 | Consultation ---
DATE OF CONSULTATION: INFECTIOUS DISEASE CONSULTATION CONSULTING PHYSICIAN: Avni Castillo M.D. REFERRING PHYSICIAN: Sagar Rudd M.D. REASON FOR CONSULTATION: Evaluation of the patient for sepsis, leukocytosis, and antibiotic management. HISTORY OF PRESENT ILLNESS: The patient is a 61-year-old male with multiple medical problem, who is known to our service from prior admission, who came to the hospital due to coffee-ground emesis and the patient was found to have leukocytosis. Infectious Disease consultation has been requested for further evaluation of the patient's antibiotic management. PAST MEDICAL HISTORY: 1. History of recurrent ventilatory associated pneumonia due to ESBL Klebsiella, Proteus mirabilis, and Morganella. 2. History of sacral decubitus (not infected). 3. History of chronically elevated alkaline phosphatase. 4. Ventilatory-dependent respiratory failure. 5. History of trach and PEG placement. 6. History of COPD. 7. History of esophagitis. 8. Diabetes. 9. Anxiety. 10. Anemia. MEDICATIONS: IV aztreonam. ALLERGIES: Penicillin. FAMILY HISTORY: Not available. REVIEW OF SYSTEMS: Unobtainable. PHYSICAL EXAMINATION: VITAL SIGNS: Temperature 98.4 degrees, pulse 86, respiratory rate 18, and T-max 101.1. HEENT: Mild pale conjunctivae. No icterus. Head, normocephalic. NECK: No lymphadenopathy. Trachea in place. CHEST: Coarse breathing sounds. HEART: S1 and S2. ABDOMEN: Soft. PEG tube in place. EXTREMITIES: No cyanosis. NEUROLOGIC: Nonverbal. LABORATORY AND DIAGNOSTIC DATA: White blood cells 11.1, hemoglobin 12, and platelets 215,000. UA is unremarkable. BUN 14 and creatinine 0.6. ALT and AST unremarkable. Alkaline phosphatase 317. Blood culture is growing gram-positive cocci in 1 out of two sets. CT scan of the abdomen possible basilar pneumonia in bilateral lungs. stones. ASSESSMENT: The patient is a 61-year-old male with multiple medical problems who has: 1. Leukocytosis. 2. Fever. 3. Aspiration pneumonia. 4. Positive blood culture, gram-positive cocci ? contaminant. PLAN: 1. We will continue the patient on Azactam, add Flagyl, and IV vancomycin. 2. Monitor CBC. 3. Monitor BMP. 4. Monitor cultures (sputum and blood). 5. Monitor chest x-ray. 6. Monitor repeat blood culture. 7. Based on the patient's labs, we will do further recommendation. Thank you, Dr. Rudd, for allowing me to participate in the care of this patient. I will follow the patient with you during this hospitalization. Avni Castillo M.D. DR: DILIP JOB#: [id number] CC:
[2016-10-07] MEDS: Aztreonam 1gm in D5W 55ml IVPB SCH ×4 (02:07→23:31)
[2016-10-07] MEDS: Vancomycin 1250mg/D5W 250ml IVPB SCH ×2 (02:08→15:38)
[2016-10-07 03:37] VITALS: BP 130/76
[2016-10-07] MEDS: metroNIDAZOLE 500mg 100 ML IVPB SCH ×3 (05:04→21:20)
[2016-10-07] MEDS: Midodrine 10mg tab GT SCH ×3 (05:05→21:20)
[2016-10-07 05:37] LABS: BASOPHILS % (AUTO) 0.9 % (0.0-2.0); EOSINOPHILS % (AUTO) 3.6 % (0.0-3.0); LYMPHOCYTES % (AUTO) 20.7 % (20.0-45.0); MEAN CORPUSCULAR HGB CONC 34.2 G/DL (32.0-36.0); MEAN CORPUSCULAR VOLUME 91 FL (80-99); MEAN PLATELET VOLUME 10.3 FL (6.5-10.1); MONOCYTES % (AUTO) 7.4 % (1.0-10.0); NEUTROPHILS % (AUTO) 67.4 % (45.0-75.0); PLATELET COUNT 222 K/UL (150-450); RED BLOOD COUNT 4.44 M/UL (4.70-6.10); RED CELL DISTRIBUTION WIDTH 14.2 % (11.6-14.8); WHITE BLOOD COUNT 10.3 K/UL (4.8-10.8)
[2016-10-07 06:07] LABS: ALANINE AMINOTRANSFERASE 40 U/L (3-41); ALBUMIN/GLOBULIN RATIO 0.6 (1.0-2.7); ANION GAP 18 (5-15); ASPARTATE AMINO TRANSFERASE 43 U/L (5-40); CALCIUM 9.1 mg/dL (8.6-10.2); CARBON DIOXIDE 21 mEQ/L (20-30); CHLORIDE 101 mEQ/L (98-107); CREATININE 0.5 mg/dL (0.7-1.2); GLOMERULAR FILTRATION RATE > 60 mL/min (>60); HEMOLYSIS 11; MAGNESIUM 1.6 mg/dL (1.7-2.5); PHOSPHORUS 2.5 mg/dL (2.5-4.8); SODIUM 140 mEQ/L (135-145); TOTAL PROTEIN 7.1 g/dL (6.6-8.7)
[2016-10-07 08:00] VITALS: BP 138/74
[2016-10-07] MEDS: Pantoprazole Inj IVP SCH (09:05)
[2016-10-07] MEDS: Heparin 5000 units/ml inj SUBQ SCH ×2 (09:21→21:23)
[2016-10-07 10:00] LABS: ABG ALLEN TEST POSITIVE; ABG BASE EXCESS 0; ABG PCO2 36.9 mmHg (35.0-45.0)
[2016-10-07 12:00] VITALS: BP 131/69
[2016-10-07] MEDS: D5 1/2NS 1,000 ML IV SCH (12:13)
--- NOTE | 2016-10-07 12:22 | Infectious Diseases Prog Note ---
Assessment/Plan Assessment/Plan ASSESSMENT: The patient is a 61-year-old male with multiple medical problems who has: Leukocytosis improving Fever improving Aspiration pneumonia CT scan : abdomen possible basilar pneumonia in bilateral lungs Positive blood culture, CoNs 1/2 : contaminant History of chronically elevated alkaline phosphatase History of recurrent ventilatory associated pneumonia due to ESBL Klebsiella, Proteus mirabilis, and Morganella History of sacral decubitus (not infected) Ventilatory-dependent respiratory failure History of trach and PEG placement History of COPD History of esophagitis Diabetes Anxiety Anemia PLAN: cont patient on Azactam, add Flagyl, and IV vancomycin d# 2 / 7 Monitor CBC Monitor BMP. Monitor cultures (sputum and blood) Monitor chest x-ray Subjective Constitutional: Denies: anorexia, chills, drenching sweats, fatigue, fever, no symptoms, other Allergies: Coded Allergies: OXYTETRACYCLINE (Unverified Allergy, Unknown, 09/05/13) PENICILLINS (Unverified Allergy, Unknown, 09/05/13) Uncoded Allergies: PLASTIC TAPE (Allergy, Mild, ITCHINESS, 08/08/15) Objective Vital Signs Last 24 Hour Vital Signs Date Time Temp Pulse Resp B/P Pulse Ox O2 Delivery O2 Flow Rate FiO2 10/07/16 11:25 92 25 40 10/07/16 09:25 85 27 40 10/07/16 08:00 81 10/07/16 08:00 40 10/07/16 08:00 99.2 83 19 138/74 96 Mechanical Ventilator 40 10/07/16 07:25 98 25 40 10/07/16 05:12 89 18 40 10/07/16 04:00 40 10/07/16 04:00 81 10/07/16 03:37 98.1 82 16 130/76 96 Mechanical Ventilator 10/07/16 02:56 90 16 40 10/07/16 01:17 72 17 40 10/07/16 00:00 40 10/07/16 00:00 85 10/06/16 23:09 77 16 40 10/06/16 23:03 97.7 79 16 141/71 96 Mechanical Ventilator 10/06/16 21:10 80 16 40 10/06/16 20:00 72 10/06/16 20:00 40 10/06/16 19:30 96.3 80 18 121/71 98 Mechanical Ventilator 7/17/17 17:06 86 17 40 10/06/16 16:14 40 10/06/16 16:13 89 10/06/16 16:00 97.5 78 19 130/74 97 Mechanical Ventilator 5.0 40 10/06/16 15:07 90 20 40 10/06/16 12:46 96 22 40 Height (Feet): 5 Height (Inches): 9.00 Weight (Pounds): 146 HEENT: anicteric Respiratory/Chest: no respiratory distress Cardiovascular: regularly irregular Abdomen: no organomegaly, distended Microbiology Date/Time Source Procedure Growth Status 10/05/16 11:45 Blood Blood Culture - Preliminary Staphylococcus Sp Coag Neg Resulted 10/05/16 11:35 Blood Blood Culture - Preliminary NO GROWTH AFTER 24 HOURS Resulted 10/06/16 14:20 Stool Clostridium difficile Toxin Assay - Final Complete Laboratory Tests Test 10/07/16 04:00 10/07/16 09:30 White Blood Count 10.3 K/UL (4.8-10.8) Red Blood Count 4.44 M/UL (4.70-6.10) L Hemoglobin 13.8 G/DL (14.2-18.0) L Hematocrit 40.2 % (42.0-52.0) L Mean Corpuscular Volume 91 FL (80-99) Mean Corpuscular Hemoglobin 31.0 PG (27.0-31.0) Mean Corpuscular Hemoglobin Concent 34.2 G/DL (32.0-36.0) Red Cell Distribution Width 14.2 % (11.6-14.8) Platelet Count 222 K/UL (150-450) Mean Platelet Volume 10.3 FL (6.5-10.1) H Neutrophils (%) (Auto) 67.4 % (45.0-75.0) Lymphocytes (%) (Auto) 20.7 % (20.0-45.0) Monocytes (%) (Auto) 7.4 % (1.0-10.0) Eosinophils (%) (Auto) 3.6 % (0.0-3.0) H Basophils (%) (Auto) 0.9 % (0.0-2.0) Sodium Level 140 mEQ/L (135-145) Potassium Level 3.0 mEQ/L (3.4-4.9) L Chloride Level 101 mEQ/L (98-107) Carbon Dioxide Level 21 mEQ/L (20-30) Anion Gap 18 (5-15) H Blood Urea Nitrogen 9 mg/dL (7-23) Creatinine 0.5 mg/dL (0.7-1.2) L Estimat Glomerular Filtration Rate > 60 mL/min (>60) Glucose Level 128 mg/dL (74-106) H Calcium Level 9.1 mg/dL (8.6-10.2) Phosphorus Level 2.5 mg/dL (2.5-4.8) Magnesium Level 1.6 mg/dL (1.7-2.5) L Total Bilirubin 0.4 mg/dL (0.0-1.2) Aspartate Amino Transf (AST/SGOT) 43 U/L (5-40) H Alanine Aminotransferase (ALT/SGPT) 40 U/L (3-41) Alkaline Phosphatase 419 U/L (40-129) H Total Protein 7.1 g/dL (6.6-8.7) Albumin 2.9 g/dL (3.5-5.2) L Globulin 4.2 g/dL Albumin/Globulin Ratio 0.6 (1.0-2.7) L Arterial Blood pH 7.430 (7.350-7.450) Arterial Blood Partial Pressure CO2 36.9 mmHg (35.0-45.0) Arterial Blood Partial Pressure O2 72.9 mmHg (75.0-100.0) L Arterial Blood HCO3 23.9 mmol/L (22.0-26.0) Arterial Blood Oxygen Saturation 94.6 % (92.0-98.0) Arterial Blood Base Excess 0 Melvin Test Positive Current Medications Medications (Trade) Dose Ordered Sig/Sima Route PRN Reason Start Time Stop Time Status Last Admin Dose Admin Acetaminophen (Tylenol) 650 mg Q4H PRN ORAL fever 10/05/16 13:30 11/04/16 13:29 Al Hydroxide/Mg Hydroxide (Mylanta II) 30 ml Q6H PRN ORAL dyspepsia 10/05/16 13:30 11/04/16 13:29 Aztreonam/Dextrose (Azactam/D5W) 55 ml @ 110 mls/hr Q8HR@0000,0800,1600 IVPB 10/06/16 16:00 10/13/16 15:59 10/07/16 08:00 Dextrose (Dextrose 50%) STAT PRN IV Hypoglycemia 10/05/16 13:30 11/04/16 13:29 Dextrose/Sodium Chloride (D5 0.45% NS) 1,000 ml @ 75 mls/hr [id number] IV 10/05/16 15:45 11/04/16 15:44 10/06/16 21:50 Diphenhydramine HCl (Benadryl) 25 mg Q6H PRN ORAL Itching/Pruritis 10/05/16 13:30 11/04/16 13:29 Heparin Sodium (Porcine) (Heparin 5000 units/ml) 5,000 units EVERY 12 HOURS SUBQ 10/05/16 21:00 11/04/16 20:59 10/07/16 09:21 Metronidazole 100 ml @ 100 mls/hr Q8HR IVPB 10/06/16 14:00 10/13/16 13:59 10/07/16 05:04 Midodrine 10 mg 10 mg Q8HR GT 10/05/16 15:45 11/04/16 15:44 10/07/16 05:05 Morphine Sulfate (Morphine Sulfate) 2 mg Q4H PRN IVP severe Pain (Pain Scale 7-10) 10/05/16 13:30 10/12/16 13:29 Nitroglycerin (Ntg) 0.4 mg Q5M X 3 DOSES PRN SL Prn Chest Pain 10/05/16 13:30 11/04/16 13:29 Ondansetron HCl (Zofran) 4 mg Q6H PRN IVP Nausea & Vomiting 10/05/16 13:30 11/04/16 13:29 Pantoprazole (Protonix) 40 mg DAILY IVP 10/06/16 09:00 11/05/16 08:59 10/07/16 09:05 Polyethylene Glycol (Miralax) 17 gm HSPRN PRN ORAL Constipation 10/05/16 13:30 11/04/16 13:29 Temazepam (Restoril) 15 mg HSPRN PRN ORAL Insomnia 10/05/16 13:30 10/12/16 13:29 Vancomycin HCl 1 ea 1 ea DAILY PRN MISC Per rx protocol 10/06/16 12:15 11/05/16 12:14 Vancomycin HCl/ Dextrose 250 ml @ 166.667 mls/hr Q12HR@0200,1400 IVPB 10/06/16 14:00 10/11/16 13:59 10/07/16 02:08 MARCELLA MA M.D. Oct 07, 2016 12:21
--- NOTE | 2016-10-07 12:53 | Diagnostic Imaging Report ---
Indication: Dyspnea Comparison: 10/05/16 A single view chest radiograph was obtained. Findings: Bilateral basilar infiltrates suspected. Please correlate clinically. Similar findings noted previously. Lung volumes remain low. In addition there is a hazy opacity silhouetting out the left hemidiaphragm. This is probably a small pleural effusion. Some degree of interstitial edema is not excluded. Heart size remains normal. There is a tracheostomy present. Impression: No significant change. Suspected basilar infiltrates and a small left pleural effusion.
[2016-10-07 16:00] VITALS: BP 147/85
--- NOTE | 2016-10-07 16:04 | General Progress Note ---
Progress Note Progress Note Surgery: No acute events. doing okay. Afebrile HD stable, leukocytosis resolved. Exam benign. No acute surgical intervention necessary feeds as tolerated will follow. Jimmy Tang Oct 07, 2016 16:04
--- NOTE | 2016-10-07 16:13 | GI Progress Note ---
Assessment/Plan Problems: (1) Feeding by G-tube ICD Codes: Z93.1 - Feeding by G-tube SNOMED: 650806478 (2) GI bleed ICD Codes: K92.2 - Gastrointestinal hemorrhage, unspecified SNOMED: 92282510 (3) Coffee ground emesis ICD Codes: K92.0 - Hematemesis SNOMED: 363214756, 11871975 (4) Abdominal distension ICD Codes: R14.0 - Abdominal distension (gaseous) SNOMED: 56256539 (5) Malfunction of gastrostomy tube ICD Codes: K94.23 - Gastrostomy malfunction SNOMED: 432179675 Status: stable Status Narrative Discussed with Dr. Rosas. Assessment/Plan APCT reviewed >> no obvious ileus resume GTF's per dietary prn blood transfusion ppi BID bowel regime >> on rectal tube fu labs Subjective Subjective limited Objective Last 24 Hour Vital Signs Date Time Temp Pulse Resp B/P Pulse Ox O2 Delivery O2 Flow Rate FiO2 10/07/16 14:40 87 21 40 10/07/16 12:39 84 17 40 10/07/16 12:00 10/07/16 12:00 40 10/07/16 12:00 98.5 81 19 131/69 97 Mechanical Ventilator 40 10/07/16 12:00 81 10/07/16 11:25 92 25 40 10/07/16 09:25 85 27 40 10/07/16 08:00 81 10/07/16 08:00 40 10/07/16 08:00 99.2 83 19 138/74 96 Mechanical Ventilator 40 10/07/16 07:25 98 25 40 10/07/16 05:12 89 18 40 10/07/16 04:00 40 10/07/16 04:00 81 10/07/16 03:37 98.1 82 16 130/76 96 Mechanical Ventilator 10/07/16 02:56 90 16 40 10/07/16 01:17 72 17 40 10/07/16 00:00 40 10/07/16 00:00 85 10/06/16 23:09 77 16 40 10/06/16 23:03 97.7 79 16 141/71 96 Mechanical Ventilator 10/06/16 21:10 80 16 40 10/06/16 20:00 72 10/06/16 20:00 40 10/06/16 19:30 96.3 80 18 121/71 98 Mechanical Ventilator 10/06/16 17:06 86 17 40 10/06/16 16:14 40 10/06/16 16:13 89 Intake and Output 10/06/16 10/07/16 19:00 07:00 Intake Total 1381.7 ml 2007.877 ml Output Total 950 ml 2200 ml Balance 431.7 ml -192.123 ml Intake Free Water 130 ml 160 ml IV Total 1146.7 ml 1487.877 ml Tube Feeding 105 ml 360 ml Output Urine Total 700 ml 2100 ml Stool Total 250 ml 100 ml # Bowel Movements 3 Laboratory Tests Test 10/07/16 04:00 10/07/16 09:30 White Blood Count 10.3 K/UL (4.8-10.8) Red Blood Count 4.44 M/UL (4.70-6.10) L Hemoglobin 13.8 G/DL (14.2-18.0) L Hematocrit 40.2 % (42.0-52.0) L Mean Corpuscular Volume 91 FL (80-99) Mean Corpuscular Hemoglobin 31.0 PG (27.0-31.0) Mean Corpuscular Hemoglobin Concent 34.2 G/DL (32.0-36.0) Red Cell Distribution Width 14.2 % (11.6-14.8) Platelet Count 222 K/UL (150-450) Mean Platelet Volume 10.3 FL (6.5-10.1) H Neutrophils (%) (Auto) 67.4 % (45.0-75.0) Lymphocytes (%) (Auto) 20.7 % (20.0-45.0) Monocytes (%) (Auto) 7.4 % (1.0-10.0) Eosinophils (%) (Auto) 3.6 % (0.0-3.0) H Basophils (%) (Auto) 0.9 % (0.0-2.0) Sodium Level 140 mEQ/L (135-145) Potassium Level 3.0 mEQ/L (3.4-4.9) L Chloride Level 101 mEQ/L (98-107) Carbon Dioxide Level 21 mEQ/L (20-30) Anion Gap 18 (5-15) H Blood Urea Nitrogen 9 mg/dL (7-23) Creatinine 0.5 mg/dL (0.7-1.2) L Estimat Glomerular Filtration Rate > 60 mL/min (>60) Glucose Level 128 mg/dL (74-106) H Calcium Level 9.1 mg/dL (8.6-10.2) Phosphorus Level 2.5 mg/dL (2.5-4.8) Magnesium Level 1.6 mg/dL (1.7-2.5) L Total Bilirubin 0.4 mg/dL (0.0-1.2) Aspartate Amino Transf (AST/SGOT) 43 U/L (5-40) H Alanine Aminotransferase (ALT/SGPT) 40 U/L (3-41) Alkaline Phosphatase 419 U/L (40-129) H Total Protein 7.1 g/dL (6.6-8.7) Albumin 2.9 g/dL (3.5-5.2) L Globulin 4.2 g/dL Albumin/Globulin Ratio 0.6 (1.0-2.7) L Arterial Blood pH 7.430 (7.350-7.450) Arterial Blood Partial Pressure CO2 36.9 mmHg (35.0-45.0) Arterial Blood Partial Pressure O2 72.9 mmHg (75.0-100.0) L Arterial Blood HCO3 23.9 mmol/L (22.0-26.0) Arterial Blood Oxygen Saturation 94.6 % (92.0-98.0) Arterial Blood Base Excess 0 Melvin Test Positive Height (Feet): 5 Height (Inches): 9.00 Weight (Pounds): 146 General Appearance: no apparent distress, alert Cardiovascular: normal rate Respiratory/Chest: other - mech vent Abdominal Exam: GT site - c/d/i Katina Garcia NRenato Oct 07, 2016 16:13
[2016-10-07 20:00] VITALS: BP 137/75
[2016-10-08] VITALS: BP 146/77
[2016-10-08] MEDS: Vancomycin 1250mg/D5W 250ml IVPB SCH ×2 (01:38→14:24)
[2016-10-08 02:06] LABS: BASOPHILS % (AUTO) 1.4 % (0.0-2.0); EOSINOPHILS % (AUTO) 4.7 % (0.0-3.0); LYMPHOCYTES % (AUTO) 23.8 % (20.0-45.0); MEAN CORPUSCULAR HEMOGLOBIN 30.8 PG (27.0-31.0); MEAN CORPUSCULAR HGB CONC 34.1 G/DL (32.0-36.0); MEAN CORPUSCULAR VOLUME 90 FL (80-99); MEAN PLATELET VOLUME 9.7 FL (6.5-10.1); MONOCYTES % (AUTO) 7.8 % (1.0-10.0); NEUTROPHILS % (AUTO) 62.3 % (45.0-75.0); PLATELET COUNT 234 K/UL (150-450)
[2016-10-08 02:30] LABS: ANION GAP 29 (5-15); CALCIUM 9.2 mg/dL (8.6-10.2); CARBON DIOXIDE 13 mEQ/L (20-30); CHLORIDE 99 mEQ/L (98-107); CREATININE 0.6 mg/dL (0.7-1.2); GLOMERULAR FILTRATION RATE > 60 mL/min (>60); HEMOLYSIS 41; MAGNESIUM 1.7 mg/dL (1.7-2.5); PHOSPHORUS 2.9 mg/dL (2.5-4.8); POTASSIUM 3.4 mEQ/L (3.4-4.9); SODIUM 141 mEQ/L (135-145)
[2016-10-08 04:00] VITALS: BP 148/84
[2016-10-08] MEDS: Midodrine 10mg tab GT SCH ×3 (05:13→21:30)
[2016-10-08] MEDS: metroNIDAZOLE 500mg 100 ML IVPB SCH ×3 (05:13→21:30)
[2016-10-08] MEDS: D5 1/2NS 1,000 ML IV SCH ×2 (05:19→21:30)
[2016-10-08 08:00] VITALS: BP 144/75
[2016-10-08] MEDS: Aztreonam 1gm in D5W 55ml IVPB SCH ×3 (08:31→23:52)
[2016-10-08] MEDS: Heparin 5000 units/ml inj SUBQ SCH ×2 (08:31→20:34)
[2016-10-08] MEDS: Pantoprazole Inj IVP SCH (08:32)
--- NOTE | 2016-10-08 08:40 | Cardiology Report ---
APPROVED REPORT EKG Measurement Heart [id number] Sinus tachycardia Otherwise normal ECG
--- NOTE | 2016-10-08 11:08 | GI Progress Note ---
Assessment/Plan Problems: (1) Feeding by G-tube ICD Codes: Z93.1 - Feeding by G-tube SNOMED: 113125889 (2) GI bleed ICD Codes: K92.2 - Gastrointestinal hemorrhage, unspecified SNOMED: 80793745 (3) Coffee ground emesis ICD Codes: K92.0 - Hematemesis SNOMED: 795218649, 81435753 (4) Abdominal distension ICD Codes: R14.0 - Abdominal distension (gaseous) SNOMED: 24667415 (5) Malfunction of gastrostomy tube ICD Codes: K94.23 - Gastrostomy malfunction SNOMED: 073669113 Status: unchanged Status Narrative Discussed with Dr. Rosas. Assessment/Plan APCT reviewed >> no obvious ileus resume GTF's per dietary prn blood transfusion ppi BID bowel regime >> on rectal tube fu labs Subjective Subjective limited Objective Last 24 Hour Vital Signs Date Time Temp Pulse Resp B/P Pulse Ox O2 Delivery O2 Flow Rate FiO2 10/08/16 09:29 95 28 40 10/08/16 08:00 40 10/08/16 08:00 71 10/08/16 08:00 98.9 72 18 144/75 97 Mechanical Ventilator 40 10/08/16 07:29 74 20 40 10/08/16 05:03 75 18 40 10/08/16 04:00 99.0 74 17 148/84 98 Mechanical Ventilator 40 10/08/16 04:00 40 10/08/16 04:00 72 10/08/16 02:46 74 17 40 10/08/16 01:11 75 20 40 10/08/16 00:00 40 10/08/16 00:00 98.9 71 21 146/77 97 Mechanical Ventilator 40 10/08/16 00:00 68 10/07/16 23:00 68 19 40 10/07/16 20:46 71 18 40 10/07/16 20:00 75 10/07/16 20:00 98.8 75 21 137/75 97 Mechanical Ventilator 40 10/07/16 20:00 40 10/07/16 19:14 80 17 40 10/07/16 16:42 73 15 40 10/07/16 16:00 40 10/07/16 16:00 98.6 78 19 147/85 97 Mechanical Ventilator 40 10/07/16 16:00 68 10/07/16 14:40 87 21 40 10/07/16 12:39 84 17 40 10/07/16 12:00 10/07/16 12:00 40 10/07/16 12:00 98.5 81 19 131/69 97 Mechanical Ventilator 40 10/07/16 12:00 81 10/07/16 11:25 92 25 40 Intake and Output 10/07/16 10/08/16 19:00 07:00 Intake Total 2071.667 ml 2765.511 ml Output Total 2500 ml Balance 2071.667 ml 265.511 ml Intake Free Water 350 ml 150 ml IV Total 1231.667 ml 1945.511 ml Tube Feeding 490 ml 670 ml Output Urine Total 2500 ml Laboratory Tests Test 10/08/16 01:25 White Blood Count 9.0 K/UL (4.8-10.8) Red Blood Count 4.50 M/UL (4.70-6.10) L Hemoglobin 13.9 G/DL (14.2-18.0) L Hematocrit 40.7 % (42.0-52.0) L Mean Corpuscular Volume 90 FL (80-99) Mean Corpuscular Hemoglobin 30.8 PG (27.0-31.0) Mean Corpuscular Hemoglobin Concent 34.1 G/DL (32.0-36.0) Red Cell Distribution Width 14.0 % (11.6-14.8) Platelet Count 234 K/UL (150-450) Mean Platelet Volume 9.7 FL (6.5-10.1) Neutrophils (%) (Auto) 62.3 % (45.0-75.0) Lymphocytes (%) (Auto) 23.8 % (20.0-45.0) Monocytes (%) (Auto) 7.8 % (1.0-10.0) Eosinophils (%) (Auto) 4.7 % (0.0-3.0) H Basophils (%) (Auto) 1.4 % (0.0-2.0) Sodium Level 141 mEQ/L (135-145) Potassium Level 3.4 mEQ/L (3.4-4.9) Chloride Level 99 mEQ/L (98-107) Carbon Dioxide Level 13 mEQ/L (20-30) L Anion Gap 29 (5-15) H Blood Urea Nitrogen 10 mg/dL (7-23) Creatinine 0.6 mg/dL (0.7-1.2) L Estimat Glomerular Filtration Rate > 60 mL/min (>60) Glucose Level 106 mg/dL (74-106) Calcium Level 9.2 mg/dL (8.6-10.2) Phosphorus Level 2.9 mg/dL (2.5-4.8) Magnesium Level 1.7 mg/dL (1.7-2.5) Vancomycin Level Trough 15.0 ug/mL (5.0-12.0) H Height (Feet): 5 Height (Inches): 9.00 Weight (Pounds): 146 General Appearance: no apparent distress Cardiovascular: normal rate Respiratory/Chest: other - mech vent Abdominal Exam: GT site - c/d/i Katina Garcia N.P. Oct 08, 2016 11:08
--- NOTE | 2016-10-08 11:15 | Pulmonolgy Critical Care Note ---
Critical Care - Asmt/Plan Problems: (1) GI bleed (2) Pneumonia (3) Sepsis (4) Chronic respiratory failure (5) Tracheostomy in place (6) History of CVA (cerebrovascular accident) Respiratory: monitor respiratory rate, adjust FIO2, CXR Cardiac: continue to monitor HR/BP Renal: F/U I&O, keep IV fluid, check electrolytes Infectious Disease: check cultures Gastrointestinal: hold feedings Endocrine: monitor blood sugar, check HgA1C, continue sliding scale insulin Hematologic: monitor H/H, transfuse if hgb<8.5 Neurologic: PRN Ativan, keep patient comfortable Affect: PRN ativan Prophylaxis: Protonix Notes Reviewed: business systems lead, cardio, renal Discussed with: nurses, consultants, case management associatecardiac cath lab manager - Objective Last 24 Hour Vital Signs Date Time Temp Pulse Resp B/P Pulse Ox O2 Delivery O2 Flow Rate FiO2 10/08/16 09:29 95 28 40 10/08/16 08:00 40 10/08/16 08:00 71 10/08/16 08:00 98.9 72 18 144/75 97 Mechanical Ventilator 40 10/08/16 07:29 74 20 40 10/08/16 05:03 75 18 40 10/08/16 04:00 99.0 74 17 148/84 98 Mechanical Ventilator 40 10/08/16 04:00 40 10/08/16 04:00 72 10/08/16 02:46 74 17 40 10/08/16 01:11 75 20 40 10/08/16 00:00 40 10/08/16 00:00 98.9 71 21 146/77 97 Mechanical Ventilator 40 10/08/16 00:00 68 10/07/16 23:00 68 19 40 10/07/16 20:46 71 18 40 10/07/16 20:00 75 10/07/16 20:00 98.8 75 21 137/75 97 Mechanical Ventilator 40 10/07/16 20:00 40 10/07/16 19:14 80 17 40 10/07/16 16:42 73 15 40 10/07/16 16:00 40 10/07/16 16:00 98.6 78 19 147/85 97 Mechanical Ventilator 40 10/07/16 16:00 68 10/07/16 14:40 87 21 40 10/07/16 12:39 84 17 40 10/07/16 12:00 10/07/16 12:00 40 10/07/16 12:00 98.5 81 19 131/69 97 Mechanical Ventilator 40 10/07/16 12:00 81 10/07/16 11:25 92 25 40 Status: somnolent Condition: critical HEENT: atraumatic Neck: full ROM Lungs: chest wall tender Heart: HR/BP stable, HR/BP unstable Abdomen: soft, non-tender, feeding tube Extremities: edema Decubiti: stage Micro: Microbiology Date/Time Source Procedure Growth Status 10/06/16 19:40 Blood Blood Culture - Preliminary NO GROWTH AFTER 24 HOURS Resulted 10/06/16 19:25 Blood Blood Culture - Preliminary NO GROWTH AFTER 24 HOURS Resulted 10/05/16 11:45 Blood Blood Culture - Final Staphylococcus Sp Coag Neg Complete 10/05/16 11:35 Blood Blood Culture - Preliminary NO GROWTH AFTER 48 HOURS Resulted 10/06/16 13:00 Sputum Gram Stain - Final Resulted 10/06/16 13:00 Sputum Sputum Culture - Preliminary Resulted 10/06/16 14:20 Stool Clostridium difficile Toxin Assay - Final Complete Accucheck: 120 Critical Care - Subjective ROS Limited/Unobtainable: Yes ICU Day: 2 Intubation Day: chronic trach Interval Events: late note for 10/07 Condition: critical, improving FI02: 40 Vent Support Breath Rate: 12 Vent Support Mode: AC Vent Tidal Volume: 600 Sputum Amount: Small PIP: 15 I&O: Intake and Output 10/07/16 10/08/16 19:00 07:00 Intake Total 2071.667 ml 2765.511 ml Output Total 2500 ml Balance 2071.667 ml 265.511 ml Intake Free Water 350 ml 150 ml IV Total 1231.667 ml 1945.511 ml Tube Feeding 490 ml 670 ml Output Urine Total 2500 ml CXR: LLL infiltrate AL[place] CRAMER Oct 08, 2016 11:15
--- NOTE | 2016-10-08 11:20 | Pulmonology Progress Note ---
Assessment/Plan Problems: (1) Respiratory failure, acute and chronic (2) Coffee ground emesis (3) Severe sepsis (4) alf resident (5) History of CVA (cerebrovascular accident) (6) Feeding by G-tube Respiratory: monitor respiratory rate, adjust FIO2, CXR Cardiac: continue to monitor HR/BP Renal: decrease IV fluid, check electrolytes Infectious Disease: check cultures, continue antibiotics Gastrointestinal: continue feedings/current rate Endocrine: monitor blood sugar, check TSH Neurologic: PRN Ativan, PRN Morphine Prophylaxis: Protonix Notes Reviewed: cardio, renal, ID Discussed with: nurses, consultants Subjective ROS Limited/Unobtainable: No Constitutional: Reports: no symptoms HEENT: Repors: no symptoms Allergies: Coded Allergies: OXYTETRACYCLINE (Unverified Allergy, Unknown, 09/05/13) PENICILLINS (Unverified Allergy, Unknown, 09/05/13) Uncoded Allergies: PLASTIC TAPE (Allergy, Mild, ITCHINESS, 08/08/15) Objective Last 24 Hour Vital Signs Date Time Temp Pulse Resp B/P Pulse Ox O2 Delivery O2 Flow Rate FiO2 10/08/16 09:29 95 28 40 10/08/16 08:00 40 10/08/16 08:00 71 10/08/16 08:00 98.9 72 18 144/75 97 Mechanical Ventilator 40 10/08/16 07:29 74 20 40 10/08/16 05:03 75 18 40 10/08/16 04:00 99.0 74 17 148/84 98 Mechanical Ventilator 40 10/08/16 04:00 40 10/08/16 04:00 72 10/08/16 02:46 74 17 40 10/08/16 01:11 75 20 40 10/08/16 00:00 40 10/08/16 00:00 98.9 71 21 146/77 97 Mechanical Ventilator 40 10/08/16 00:00 68 10/07/16 23:00 68 19 40 10/07/16 20:46 71 18 40 10/07/16 20:00 75 10/07/16 20:00 98.8 75 21 137/75 97 Mechanical Ventilator 40 10/07/16 20:00 40 10/07/16 19:14 80 17 40 10/07/16 16:42 73 15 40 10/07/16 16:00 40 10/07/16 16:00 98.6 78 19 147/85 97 Mechanical Ventilator 40 10/07/16 16:00 68 10/07/16 14:40 87 21 40 10/07/16 12:39 84 17 40 10/07/16 12:00 10/07/16 12:00 40 10/07/16 12:00 98.5 81 19 131/69 97 Mechanical Ventilator 40 10/07/16 12:00 81 10/07/16 11:25 92 25 40 Intake and Output 10/07/16 10/08/16 19:00 07:00 Intake Total 2071.667 ml 2765.511 ml Output Total 2500 ml Balance 2071.667 ml 265.511 ml Intake Free Water 350 ml 150 ml IV Total 1231.667 ml 1945.511 ml Tube Feeding 490 ml 670 ml Output Urine Total 2500 ml General Appearance: WD/WN HEENT: normocephalic, atraumatic Respiratory/Chest: chest wall non-tender, lungs clear Cardiovascular: normal peripheral pulses, normal rate Abdomen: normal bowel sounds, soft, non tender Genitourinary: normal external genitalia Extremities: no cyanosis, no clubbing Skin: no rash Neurologic/Psychiatric: molded rubber goods cutter II-XII grossly normal, no motor/sensory deficits Lymphatic: no neck adenopathy Microbiology Date/Time Source Procedure Growth Status 10/06/16 19:40 Blood Blood Culture - Preliminary NO GROWTH AFTER 24 HOURS Resulted 10/06/16 19:25 Blood Blood Culture - Preliminary NO GROWTH AFTER 24 HOURS Resulted 10/05/16 11:45 Blood Blood Culture - Final Staphylococcus Sp Coag Neg Complete 10/05/16 11:35 Blood Blood Culture - Preliminary NO GROWTH AFTER 48 HOURS Resulted 10/06/16 13:00 Sputum Gram Stain - Final Resulted 10/06/16 13:00 Sputum Sputum Culture - Preliminary Resulted 10/06/16 14:20 Stool Clostridium difficile Toxin Assay - Final Complete Laboratory Tests 10/08/16 01:25: White Blood Count 9.0, Red Blood Count 4.50L, Hemoglobin 13.9L, Hematocrit 40.7L , Mean Corpuscular Volume 90, Mean Corpuscular Hemoglobin 30.8, Mean Corpuscular Hemoglobin Concent 34.1, Red Cell Distribution Width 14.0, Platelet Count 234, Mean Platelet Volume 9.7, Neutrophils (%) (Auto) 62.3, Lymphocytes (% ) (Auto) 23.8, Monocytes (%) (Auto) 7.8, Eosinophils (%) (Auto) 4.7H, Basophils (%) (Auto) 1.4, Sodium Level 141, Potassium Level 3.4, Chloride Level 99, Carbon Dioxide Level 13L, Anion Gap 29H, Blood Urea Nitrogen 10, Creatinine 0.6L , Estimat Glomerular Filtration Rate > 60, Glucose Level 106, Calcium Level 9.2 , Phosphorus Level 2.9, Magnesium Level 1.7, Vancomycin Level Trough 15.0H Current Medications Medications (Trade) Dose Ordered Sig/Sima Route PRN Reason Start Time Stop Time Status Last Admin Dose Admin Acetaminophen (Tylenol) 650 mg Q4H PRN ORAL fever 10/05/16 13:30 11/04/16 13:29 Al Hydroxide/Mg Hydroxide (Mylanta II) 30 ml Q6H PRN ORAL dyspepsia 10/05/16 13:30 11/04/16 13:29 Aztreonam/Dextrose (Azactam/D5W) 55 ml @ 110 mls/hr Q8HR@0000,0800,1600 IVPB 10/06/16 16:00 10/13/16 15:59 10/08/16 08:31 Dextrose (Dextrose 50%) STAT PRN IV Hypoglycemia 10/05/16 13:30 11/04/16 13:29 Dextrose/Sodium Chloride (D5 0.45% NS) 1,000 ml @ 75 mls/hr [id number] IV 10/05/16 15:45 11/04/16 15:44 10/08/16 05:19 Diphenhydramine HCl (Benadryl) 25 mg Q6H PRN ORAL Itching/Pruritis 10/05/16 13:30 11/04/16 13:29 Heparin Sodium (Porcine) (Heparin 5000 units/ml) 5,000 units EVERY 12 HOURS SUBQ 10/05/16 21:00 11/04/16 20:59 10/08/16 08:31 Metronidazole 100 ml @ 100 mls/hr Q8HR IVPB 10/06/16 14:00 10/13/16 13:59 10/08/16 05:13 Midodrine 10 mg 10 mg Q8HR GT 10/05/16 15:45 11/04/16 15:44 10/08/16 05:13 Morphine Sulfate (Morphine Sulfate) 2 mg Q4H PRN IVP severe Pain (Pain Scale 7-10) 10/05/16 13:30 10/12/16 13:29 Nitroglycerin (Ntg) 0.4 mg Q5M X 3 DOSES PRN SL Prn Chest Pain 10/05/16 13:30 11/04/16 13:29 Ondansetron HCl (Zofran) 4 mg Q6H PRN IVP Nausea & Vomiting 10/05/16 13:30 11/04/16 13:29 Pantoprazole (Protonix) 40 mg DAILY IVP 10/06/16 09:00 11/05/16 08:59 10/08/16 08:32 Polyethylene Glycol (Miralax) 17 gm HSPRN PRN ORAL Constipation 10/05/16 13:30 11/04/16 13:29 Temazepam (Restoril) 15 mg HSPRN PRN ORAL Insomnia 10/05/16 13:30 10/12/16 13:29 Vancomycin HCl 1 ea 1 ea DAILY PRN MISC Per rx protocol 10/06/16 12:15 11/05/16 12:14 Vancomycin HCl/ Dextrose 250 ml @ 166.667 mls/hr Q12HR@0200,1400 IVPB 10/06/16 14:00 10/11/16 13:59 10/08/16 01:38 ALBAN[place] CRAMER Oct 08, 2016 11:20
[2016-10-08 12:00] VITALS: BP 133/82
[2016-10-08] MEDS ORDERED: Miralax 17gm pkt GT PRN (14:20)
[2016-10-08] MEDS ORDERED: Mylanta II UD 30ml GT PRN (14:20)
[2016-10-08 16:00] VITALS: BP 134/86
--- NOTE | 2016-10-08 17:29 | Infectious Diseases Prog Note ---
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 Monitor cultures (sputum and blood) Monitor chest x-ray Subjective Allergies: Coded Allergies: OXYTETRACYCLINE (Unverified Allergy, Unknown, 09/05/13) PENICILLINS (Unverified Allergy, Unknown, 09/05/13) Uncoded Allergies: PLASTIC TAPE (Allergy, Mild, ITCHINESS, 08/08/15) Subjective afebrile Objective Vital Signs Last 24 Hour Vital Signs Date Time Temp Pulse Resp B/P Pulse Ox O2 Delivery O2 Flow Rate FiO2 10/08/16 17:00 63 15 40 10/08/16 16:00 98.6 79 13 134/86 98 Mechanical Ventilator 40 10/08/16 16:00 40 10/08/16 15:08 84 20 40 10/08/16 12:43 76 23 40 10/08/16 12:00 98.7 79 21 133/82 100 Mechanical Ventilator 40 10/08/16 12:00 73 10/08/16 12:00 40 10/08/16 11:26 76 20 40 10/08/16 09:29 95 28 40 10/08/16 08:00 40 10/08/16 08:00 71 10/08/16 08:00 98.9 72 18 144/75 97 Mechanical Ventilator 40 10/08/16 07:29 74 20 40 10/08/16 05:03 75 18 40 10/08/16 04:00 99.0 74 17 148/84 98 Mechanical Ventilator 40 10/08/16 04:00 40 10/08/16 04:00 72 10/08/16 02:46 74 17 40 10/08/16 01:11 75 20 40 10/08/16 00:00 40 10/08/16 00:00 98.9 71 21 146/77 97 Mechanical Ventilator 40 10/08/16 00:00 68 10/07/16 23:00 68 19 40 10/07/16 20:46 71 18 40 10/07/16 20:00 75 10/07/16 20:00 98.8 75 21 137/75 97 Mechanical Ventilator 40 10/07/16 20:00 40 10/07/16 19:14 80 17 40 Height (Feet): 5 Height (Inches): 9.00 Weight (Pounds): 146 HEENT: mucous membranes moist Respiratory/Chest: no respiratory distress Cardiovascular: regularly irregular Abdomen: no organomegaly Microbiology Date/Time Source Procedure Growth Status 10/06/16 19:40 Blood Blood Culture - Preliminary NO GROWTH AFTER 24 HOURS Resulted 10/06/16 19:25 Blood Blood Culture - Preliminary NO GROWTH AFTER 24 HOURS Resulted 10/06/16 13:00 Sputum Gram Stain - Final Resulted 10/06/16 13:00 Sputum Sputum Culture - Preliminary Resulted 10/06/16 14:20 Stool Clostridium difficile Toxin Assay - Final Complete Laboratory Tests Test 10/08/16 01:25 White Blood Count 9.0 K/UL (4.8-10.8) Red Blood Count 4.50 M/UL (4.70-6.10) L Hemoglobin 13.9 G/DL (14.2-18.0) L Hematocrit 40.7 % (42.0-52.0) L Mean Corpuscular Volume 90 FL (80-99) Mean Corpuscular Hemoglobin 30.8 PG (27.0-31.0) Mean Corpuscular Hemoglobin Concent 34.1 G/DL (32.0-36.0) Red Cell Distribution Width 14.0 % (11.6-14.8) Platelet Count 234 K/UL (150-450) Mean Platelet Volume 9.7 FL (6.5-10.1) Neutrophils (%) (Auto) 62.3 % (45.0-75.0) Lymphocytes (%) (Auto) 23.8 % (20.0-45.0) Monocytes (%) (Auto) 7.8 % (1.0-10.0) Eosinophils (%) (Auto) 4.7 % (0.0-3.0) H Basophils (%) (Auto) 1.4 % (0.0-2.0) Sodium Level 141 mEQ/L (135-145) Potassium Level 3.4 mEQ/L (3.4-4.9) Chloride Level 99 mEQ/L (98-107) Carbon Dioxide Level 13 mEQ/L (20-30) L Anion Gap 29 (5-15) H Blood Urea Nitrogen 10 mg/dL (7-23) Creatinine 0.6 mg/dL (0.7-1.2) L Estimat Glomerular Filtration Rate > 60 mL/min (>60) Glucose Level 106 mg/dL (74-106) Calcium Level 9.2 mg/dL (8.6-10.2) Phosphorus Level 2.9 mg/dL (2.5-4.8) Magnesium Level 1.7 mg/dL (1.7-2.5) Vancomycin Level Trough 15.0 ug/mL (5.0-12.0) H Current Medications Medications (Trade) Dose Ordered Sig/Sima Route PRN Reason Start Time Stop Time Status Last Admin Dose Admin Acetaminophen (Tylenol) 650 mg Q4H PRN ORAL fever 10/05/16 13:30 11/04/16 13:29 Al Hydroxide/Mg Hydroxide (Mylanta II) 30 ml Q6H PRN GT dyspepsia 10/08/16 14:20 11/04/16 13:29 Aztreonam/Dextrose (Azactam/D5W) 55 ml @ 110 mls/hr Q8HR@0000,0800,1600 IVPB 10/06/16 16:00 10/13/16 15:59 10/08/16 16:12 Dextrose (Dextrose 50%) STAT PRN IV Hypoglycemia 10/05/16 13:30 11/04/16 13:29 Dextrose/Sodium Chloride (D5 0.45% NS) 1,000 ml @ 75 mls/hr [id number] IV 10/05/16 15:45 11/04/16 15:44 10/08/16 05:19 Diphenhydramine HCl (Benadryl) 25 mg Q6H PRN ORAL Itching/Pruritis 10/05/16 13:30 11/04/16 13:29 Heparin Sodium (Porcine) (Heparin 5000 units/ml) 5,000 units EVERY 12 HOURS SUBQ 10/05/16 21:00 11/04/16 20:59 10/08/16 08:31 Metronidazole 100 ml @ 100 mls/hr Q8HR IVPB 10/06/16 14:00 10/13/16 13:59 10/08/16 14:24 Midodrine 10 mg 10 mg Q8HR GT 10/05/16 15:45 11/04/16 15:44 10/08/16 14:24 Morphine Sulfate (Morphine Sulfate) 2 mg Q4H PRN IVP severe Pain (Pain Scale 7-10) 10/05/16 13:30 10/12/16 13:29 Nitroglycerin (Ntg) 0.4 mg Q5M X 3 DOSES PRN SL Prn Chest Pain 10/05/16 13:30 11/04/16 13:29 Ondansetron HCl (Zofran) 4 mg Q6H PRN IVP Nausea & Vomiting 10/05/16 13:30 11/04/16 13:29 Pantoprazole (Protonix) 40 mg DAILY IVP 10/06/16 09:00 11/05/16 08:59 10/08/16 08:32 Polyethylene Glycol (Miralax) 17 gm HSPRN PRN GT Constipation 10/08/16 14:20 11/04/16 13:29 Temazepam (Restoril) 15 mg HSPRN PRN GT Insomnia 10/08/16 14:21 10/12/16 13:29 Vancomycin HCl 1 ea 1 ea DAILY PRN MISC Per rx protocol 10/06/16 12:15 11/05/16 12:14 Vancomycin HCl/ Dextrose 250 ml @ 166.667 mls/hr Q12HR@0200,1400 IVPB 10/06/16 14:00 10/11/16 13:59 10/08/16 14:24 MARCELLA MA M.D. Oct 08, 2016 17:29
[2016-10-08 20:07] VITALS: BP 133/75
[2016-10-09 00:31] VITALS: BP 126/73
[2016-10-09 04:00] VITALS: BP 128/75
[2016-10-09] MEDS: Midodrine 10mg tab GT SCH ×3 (05:30→22:00)
[2016-10-09] MEDS: metroNIDAZOLE 500mg 100 ML IVPB SCH ×3 (05:30→22:00)
[2016-10-09 08:00] VITALS: BP 146/74
[2016-10-09] MEDS: Aztreonam 1gm in D5W 55ml IVPB SCH ×2 (08:42→16:20)
[2016-10-09] MEDS: Pantoprazole Inj IVP SCH (08:43)
[2016-10-09] MEDS: Heparin 5000 units/ml inj SUBQ SCH ×2 (08:44→21:14)
[2016-10-09 09:19] LABS: MEAN CORPUSCULAR HEMOGLOBIN 29.6 PG (27.0-31.0); MEAN CORPUSCULAR HGB CONC 33.4 G/DL (32.0-36.0); MEAN CORPUSCULAR VOLUME 88 FL (80-99); MEAN PLATELET VOLUME 9.1 FL (6.5-10.1); PLATELET COUNT 240 K/UL (150-450); RED BLOOD COUNT 4.88 M/UL (4.70-6.10); RED CELL DISTRIBUTION WIDTH 14.4 % (11.6-14.8); WHITE BLOOD COUNT 18.1 K/UL (4.8-10.8)
[2016-10-09 09:32] LABS: CRP QUANT 3.8 mg/dL (< 0.5); MAGNESIUM 1.8 mg/dL (1.7-2.5); PHOSPHORUS 2.9 mg/dL (2.5-4.8)
[2016-10-09 09:33] LABS: ALANINE AMINOTRANSFERASE 37 U/L (3-41); ALBUMIN/GLOBULIN RATIO 1.1 (1.0-2.7); ANION GAP 12 (5-15); ASPARTATE AMINO TRANSFERASE 38 U/L (5-40); CALCIUM 8.5 mg/dL (8.6-10.2); CARBON DIOXIDE 24 mEQ/L (20-30); CHLORIDE 103 mEQ/L (98-107); CREATININE 0.6 mg/dL (0.7-1.2); GLOMERULAR FILTRATION RATE > 60 mL/min (>60); HEMOLYSIS 18; POTASSIUM 3.1 mEQ/L (3.4-4.9); SODIUM 139 mEQ/L (135-145); TOTAL PROTEIN 6.1 g/dL (6.6-8.7)
--- NOTE | 2016-10-09 10:51 | Pulmonology Progress Note ---
Assessment/Plan Problems: (1) Respiratory failure, acute and chronic (2) Coffee ground emesis (3) Severe sepsis (4) snf resident (5) History of CVA (cerebrovascular accident) (6) Feeding by G-tube Respiratory: monitor respiratory rate, adjust FIO2, CXR Cardiac: continue to monitor HR/BP Renal: F/U I&O Infectious Disease: check cultures Gastrointestinal: continue feedings/current rate Endocrine: monitor blood sugar, continue sliding scale insulin Hematologic: monitor H/H, transfuse if hgb<8.5 Neurologic: PRN Ativan, keep patient comfortable Affect: PRN ativan Prophylaxis: Protonix Notes Reviewed: cardio Discussed with: nurses, consultants, nurse outreach case manager Subjective Constitutional: Reports: no symptoms HEENT: Repors: no symptoms Respiratory: Reports: no symptoms Cardiovascular: Reports: no symptoms Gastrointestinal/Abdominal: Reports: no symptoms Allergies: Coded Allergies: OXYTETRACYCLINE (Unverified Allergy, Unknown, 09/05/13) PENICILLINS (Unverified Allergy, Unknown, 09/05/13) Uncoded Allergies: PLASTIC TAPE (Allergy, Mild, ITCHINESS, 08/08/15) Objective Last 24 Hour Vital Signs Date Time Temp Pulse Resp B/P Pulse Ox O2 Delivery O2 Flow Rate FiO2 10/09/16 09:06 79 18 40 10/09/16 08:00 98.6 86 20 146/74 99 Mechanical Ventilator 40 10/09/16 08:00 65 10/09/16 08:00 81 10/09/16 07:53 85 18 40 10/09/16 05:26 91 24 40 10/09/16 04:00 92 10/09/16 04:00 65 10/09/16 04:00 97.5 92 19 128/75 95 Mechanical Ventilator 65 10/09/16 03:00 89 20 65 10/09/16 01:12 95 20 65 10/09/16 00:31 98.1 83 18 126/73 Mechanical Ventilator 10/09/16 00:00 65 10/09/16 00:00 92 10/08/16 23:14 93 20 65 10/08/16 21:52 79 19 40 10/08/16 20:07 97.9 82 17 133/75 97 Mechanical Ventilator 10/08/16 20:00 85 10/08/16 20:00 40 10/08/16 19:00 83 24 40 10/08/16 17:00 63 15 40 10/08/16 16:00 74 10/08/16 16:00 98.6 79 13 134/86 98 Mechanical Ventilator 40 10/08/16 16:00 40 10/08/16 15:08 84 20 40 10/08/16 12:43 76 23 40 10/08/16 12:00 98.7 79 21 133/82 100 Mechanical Ventilator 40 10/08/16 12:00 73 10/08/16 12:00 40 10/08/16 11:26 76 20 40 Intake and Output 10/08/16 10/09/16 19:00 07:00 Intake Total 2305.0 ml 2011.25 ml Output Total 1750 ml 1025 ml Balance 555.0 ml 986.25 ml Intake Free Water 300 ml 300 ml IV Total 1285.0 ml 941.25 ml Tube Feeding 720 ml 720 ml Other 50 ml Output Urine Total 1750 ml 850 ml Stool Total 175 ml # Bowel Movements 1 General Appearance: WD/WN, no acute distress HEENT: atraumatic Respiratory/Chest: chest wall non-tender, lungs clear Cardiovascular: normal peripheral pulses, regular rhythm Abdomen: normal bowel sounds, soft, non tender Genitourinary: normal external genitalia Extremities: no clubbing Skin: no rash, no ulcers Microbiology Date/Time Source Procedure Growth Status 10/06/16 19:40 Blood Blood Culture - Preliminary NO GROWTH AFTER 48 HOURS Resulted 10/06/16 19:25 Blood Blood Culture - Preliminary NO GROWTH AFTER 48 HOURS Resulted 10/06/16 13:00 Sputum Gram Stain - Final Resulted 10/06/16 13:00 Sputum Culture - Preliminary Gram Negative Bacillus 1 Gram Negative Bacillus 2 Gram Negative Bacillus 3 Usual Upper Respiratory Helen Resulted 10/06/16 14:20 Stool Clostridium difficile Toxin Assay - Final Complete Laboratory Tests 10/09/16 08:55: White Blood Count 18.1#H, Red Blood Count 4.88, Hemoglobin 14.4, Hematocrit 43.1 , Mean Corpuscular Volume 88, Mean Corpuscular Hemoglobin 29.6, Mean Corpuscular Hemoglobin Concent 33.4, Red Cell Distribution Width 14.4, Platelet Count 240, Mean Platelet Volume 9.1, Neutrophils (%) (Auto) , Lymphocytes (%) ( Auto) , Monocytes (%) (Auto) , Eosinophils (%) (Auto) , Basophils (%) (Auto) , Neutrophils % (Manual) [Pending], Lymphocytes % (Manual) [Pending], Platelet Estimate [Pending], Platelet Morphology [Pending], Erythrocyte Sedimentation Rate 54H, Sodium Level 139, Potassium Level 3.1L, Chloride Level 103, Carbon Dioxide Level 24, Anion Gap 12, Blood Urea Nitrogen 11, Creatinine 0.6L, Estimat Glomerular Filtration Rate > 60, Glucose Level 151H, Calcium Level 8.5L , Phosphorus Level 2.9, Magnesium Level 1.8, Total Bilirubin 0.3, Aspartate Amino Transf (AST/SGOT) 38, Alanine Aminotransferase (ALT/SGPT) 37, Alkaline Phosphatase 421H, C-Reactive Protein, Quantitative 3.8H, Total Protein 6.1L, Albumin 3.3L, Globulin 2.8, Albumin/Globulin Ratio 1.1 Current Medications Medications (Trade) Dose Ordered Sig/Sima Route PRN Reason Start Time Stop Time Status Last Admin Dose Admin Acetaminophen (Tylenol) 650 mg Q4H PRN ORAL fever 10/05/16 13:30 11/04/16 13:29 Al Hydroxide/Mg Hydroxide (Mylanta II) 30 ml Q6H PRN GT dyspepsia 10/08/16 14:20 11/04/16 13:29 Aztreonam/Dextrose (Azactam/D5W) 55 ml @ 110 mls/hr Q8HR@0000,0800,1600 IVPB 10/06/16 16:00 10/13/16 15:59 10/09/16 08:42 Dextrose (Dextrose 50%) STAT PRN IV Hypoglycemia 10/05/16 13:30 11/04/16 13:29 Dextrose/Sodium Chloride (D5 0.45% NS) 1,000 ml @ 75 mls/hr [id number] IV 10/05/16 15:45 11/04/16 15:44 10/08/16 21:30 Diphenhydramine HCl (Benadryl) 25 mg Q6H PRN ORAL Itching/Pruritis 10/05/16 13:30 11/04/16 13:29 Heparin Sodium (Porcine) (Heparin 5000 units/ml) 5,000 units EVERY 12 HOURS SUBQ 10/05/16 21:00 11/04/16 20:59 10/09/16 08:44 Metronidazole 100 ml @ 100 mls/hr Q8HR IVPB 10/06/16 14:00 10/13/16 13:59 10/09/16 05:30 Midodrine 10 mg 10 mg Q8HR GT 10/05/16 15:45 11/04/16 15:44 10/09/16 05:30 Morphine Sulfate (Morphine Sulfate) 2 mg Q4H PRN IVP severe Pain (Pain Scale 7-10) 10/05/16 13:30 10/12/16 13:29 Nitroglycerin (Ntg) 0.4 mg Q5M X 3 DOSES PRN SL Prn Chest Pain 10/05/16 13:30 11/04/16 13:29 Ondansetron HCl (Zofran) 4 mg Q6H PRN IVP Nausea & Vomiting 10/05/16 13:30 11/04/16 13:29 Pantoprazole 40 mg 40 mg DAILY IVP 10/06/16 09:00 11/05/16 08:59 10/09/16 08:43 Polyethylene Glycol (Miralax) 17 gm HSPRN PRN GT Constipation 10/08/16 14:20 11/04/16 13:29 Temazepam (Restoril) 15 mg HSPRN PRN GT Insomnia 10/08/16 14:21 10/12/16 13:29 AL[place] CRAMER Oct 09, 2016 10:51
[2016-10-09] MEDS ORDERED: KCl 10% 40mEq/30ml liquid NG ONE (11:00)
[2016-10-09 11:04] LABS: BAND NEUTROPHILS % (MANUAL) 1 % (0-8); BASOPHILS % (MANUAL) 0 % (0-2); EOSINOPHILS % (MANUAL) 4 % (0-3); LYMPHOCYTES % (MANUAL) 9 % (20-45); NEUTROPHILS % (MANUAL) 83 % (45-75); PLATELET ESTIMATE ADEQUATE; PLATELET MORPHOLOGY NORMAL; TOTAL CELLS COUNTED 100
[2016-10-09] MEDS ORDERED: D5 1/2NS 1000ml IV ONE (11:42)
[2016-10-09] MEDS ORDERED: Tubing IV Secondary IV ONE (11:42)
[2016-10-09] MEDS ORDERED: NS 275ml ONE (11:42)
--- NOTE | 2016-10-09 11:42 | GI Progress Note ---
Assessment/Plan Problems: (1) Feeding by G-tube ICD Codes: Z93.1 - Feeding by G-tube SNOMED: 646025637 (2) GI bleed ICD Codes: K92.2 - Gastrointestinal hemorrhage, unspecified SNOMED: 10684003 (3) Coffee ground emesis ICD Codes: K92.0 - Hematemesis SNOMED: 376148539, 25215644 (4) Abdominal distension ICD Codes: R14.0 - Abdominal distension (gaseous) SNOMED: 89496055 (5) Malfunction of gastrostomy tube ICD Codes: K94.23 - Gastrostomy malfunction SNOMED: 876923453 Status: unchanged Status Narrative Discussed with Dr. Rosas. Assessment/Plan APCT reviewed >> no obvious ileus resume GTF's per dietary prn blood transfusion ppi BID bowel regime >> on rectal tube fu labs Subjective Subjective limited Objective Last 24 Hour Vital Signs Date Time Temp Pulse Resp B/P Pulse Ox O2 Delivery O2 Flow Rate FiO2 10/09/16 09:06 79 18 40 10/09/16 08:00 98.6 86 20 146/74 99 Mechanical Ventilator 40 10/09/16 08:00 65 10/09/16 08:00 81 10/09/16 07:53 85 18 40 10/09/16 05:26 91 24 40 10/09/16 04:00 92 10/09/16 04:00 65 10/09/16 04:00 97.5 92 19 128/75 95 Mechanical Ventilator 65 10/09/16 03:00 89 20 65 10/09/16 01:12 95 20 65 10/09/16 00:31 98.1 83 18 126/73 Mechanical Ventilator 10/09/16 00:00 65 10/09/16 00:00 92 10/08/16 23:14 93 20 65 10/08/16 21:52 79 19 40 10/08/16 20:07 97.9 82 17 133/75 97 Mechanical Ventilator 10/08/16 20:00 85 10/08/16 20:00 40 10/08/16 19:00 83 24 40 10/08/16 17:00 63 15 40 10/08/16 16:00 74 10/08/16 16:00 98.6 79 13 134/86 98 Mechanical Ventilator 40 10/08/16 16:00 40 10/08/16 15:08 84 20 40 10/08/16 12:43 76 23 40 10/08/16 12:00 98.7 79 21 133/82 100 Mechanical Ventilator 40 10/08/16 12:00 73 10/08/16 12:00 40 Intake and Output 10/08/16 10/09/16 19:00 07:00 Intake Total 2305.0 ml 2011.25 ml Output Total 1750 ml 1025 ml Balance 555.0 ml 986.25 ml Intake Free Water 300 ml 300 ml IV Total 1285.0 ml 941.25 ml Tube Feeding 720 ml 720 ml Other 50 ml Output Urine Total 1750 ml 850 ml Stool Total 175 ml # Bowel Movements 1 Laboratory Tests Test 10/09/16 08:55 White Blood Count 18.1 K/UL (4.8-10.8) #H Red Blood Count 4.88 M/UL (4.70-6.10) Hemoglobin 14.4 G/DL (14.2-18.0) Hematocrit 43.1 % (42.0-52.0) Mean Corpuscular Volume 88 FL (80-99) Mean Corpuscular Hemoglobin 29.6 PG (27.0-31.0) Mean Corpuscular Hemoglobin Concent 33.4 G/DL (32.0-36.0) Red Cell Distribution Width 14.4 % (11.6-14.8) Platelet Count 240 K/UL (150-450) Mean Platelet Volume 9.1 FL (6.5-10.1) Neutrophils (%) (Auto) % (45.0-75.0) Lymphocytes (%) (Auto) % (20.0-45.0) Monocytes (%) (Auto) % (1.0-10.0) Eosinophils (%) (Auto) % (0.0-3.0) Basophils (%) (Auto) % (0.0-2.0) Differential Total Cells Counted 100 Neutrophils % (Manual) 83 % (45-75) H Lymphocytes % (Manual) 9 % (20-45) L Monocytes % (Manual) 3 % (1-10) Eosinophils % (Manual) 4 % (0-3) H Basophils % (Manual) 0 % (0-2) Band Neutrophils 1 % (0-8) Platelet Estimate Adequate Platelet Morphology Normal Red Blood Cell Morphology Normal Erythrocyte Sedimentation Rate 54 MM/HR (0-20) H Sodium Level 139 mEQ/L (135-145) Potassium Level 3.1 mEQ/L (3.4-4.9) L Chloride Level 103 mEQ/L (98-107) Carbon Dioxide Level 24 mEQ/L (20-30) Anion Gap 12 (5-15) Blood Urea Nitrogen 11 mg/dL (7-23) Creatinine 0.6 mg/dL (0.7-1.2) L Estimat Glomerular Filtration Rate > 60 mL/min (>60) Glucose Level 151 mg/dL (74-106) H Calcium Level 8.5 mg/dL (8.6-10.2) L Phosphorus Level 2.9 mg/dL (2.5-4.8) Magnesium Level 1.8 mg/dL (1.7-2.5) Total Bilirubin 0.3 mg/dL (0.0-1.2) Aspartate Amino Transf (AST/SGOT) 38 U/L (5-40) Alanine Aminotransferase (ALT/SGPT) 37 U/L (3-41) Alkaline Phosphatase 421 U/L (40-129) H C-Reactive Protein, Quantitative 3.8 mg/dL (< 0.5) H Total Protein 6.1 g/dL (6.6-8.7) L Albumin 3.3 g/dL (3.5-5.2) L Globulin 2.8 g/dL Albumin/Globulin Ratio 1.1 (1.0-2.7) Height (Feet): 5 Height (Inches): 9.00 Weight (Pounds): 146 General Appearance: no apparent distress, alert Cardiovascular: normal rate Respiratory/Chest: normal breath sounds, other - mech vent Abdominal Exam: GT site - c/d/i Katina Garcia N.P. Oct 09, 2016 11:42
[2016-10-09 12:00] VITALS: BP 109/61
--- NOTE | 2016-10-09 12:14 | Infectious Diseases Prog Note ---
Assessment/Plan Assessment/Plan ASSESSMENT: The patient is a 61-year-old male with multiple medical problems who has: Leukocytosis ? 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 Monitor cultures (sputum and blood) Monitor chest x-ray Subjective Allergies: Coded Allergies: OXYTETRACYCLINE (Unverified Allergy, Unknown, 09/05/13) PENICILLINS (Unverified Allergy, Unknown, 09/05/13) Uncoded Allergies: PLASTIC TAPE (Allergy, Mild, ITCHINESS, 08/08/15) Subjective afebrile WBC increased Objective Vital Signs Last 24 Hour Vital Signs Date Time Temp Pulse Resp B/P Pulse Ox O2 Delivery O2 Flow Rate FiO2 10/09/16 12:00 65 10/09/16 11:55 80 17 40 10/09/16 08:00 98.6 86 20 146/74 99 Mechanical Ventilator 40 10/09/16 08:00 65 10/09/16 08:00 81 10/09/16 07:53 85 18 40 10/09/16 05:26 91 24 40 10/09/16 04:00 92 10/09/16 04:00 65 10/09/16 04:00 97.5 92 19 128/75 95 Mechanical Ventilator 65 10/09/16 03:00 89 20 65 10/09/16 01:12 95 20 65 10/09/16 00:31 98.1 83 18 126/73 Mechanical Ventilator 10/09/16 00:00 65 10/09/16 00:00 92 10/08/16 23:14 93 20 65 10/08/16 21:52 79 19 40 10/08/16 20:07 97.9 82 17 133/75 97 Mechanical Ventilator 10/08/16 20:00 85 10/08/16 20:00 40 10/08/16 19:00 83 24 40 10/08/16 17:00 63 15 40 10/08/16 16:00 74 10/08/16 16:00 98.6 79 13 134/86 98 Mechanical Ventilator 40 10/08/16 16:00 40 10/08/16 15:08 84 20 40 10/08/16 12:43 76 23 40 Height (Feet): 5 Height (Inches): 9.00 Weight (Pounds): 146 HEENT: atraumatic Respiratory/Chest: no respiratory distress Cardiovascular: regularly irregular Abdomen: non distended Microbiology Date/Time Source Procedure Growth Status 10/06/16 19:40 Blood Blood Culture - Preliminary NO GROWTH AFTER 48 HOURS Resulted 10/06/16 19:25 Blood Blood Culture - Preliminary NO GROWTH AFTER 48 HOURS Resulted 10/06/16 13:00 Sputum Gram Stain - Final Resulted 10/06/16 13:00 Sputum Culture - Preliminary Gram Negative Bacillus 1 Gram Negative Bacillus 2 Gram Negative Bacillus 3 Usual Upper Respiratory Helen Resulted 10/06/16 14:20 Stool Clostridium difficile Toxin Assay - Final Complete Laboratory Tests Test 10/09/16 08:55 White Blood Count 18.1 K/UL (4.8-10.8) #H Red Blood Count 4.88 M/UL (4.70-6.10) Hemoglobin 14.4 G/DL (14.2-18.0) Hematocrit 43.1 % (42.0-52.0) Mean Corpuscular Volume 88 FL (80-99) Mean Corpuscular Hemoglobin 29.6 PG (27.0-31.0) Mean Corpuscular Hemoglobin Concent 33.4 G/DL (32.0-36.0) Red Cell Distribution Width 14.4 % (11.6-14.8) Platelet Count 240 K/UL (150-450) Mean Platelet Volume 9.1 FL (6.5-10.1) Neutrophils (%) (Auto) % (45.0-75.0) Lymphocytes (%) (Auto) % (20.0-45.0) Monocytes (%) (Auto) % (1.0-10.0) Eosinophils (%) (Auto) % (0.0-3.0) Basophils (%) (Auto) % (0.0-2.0) Differential Total Cells Counted 100 Neutrophils % (Manual) 83 % (45-75) H Lymphocytes % (Manual) 9 % (20-45) L Monocytes % (Manual) 3 % (1-10) Eosinophils % (Manual) 4 % (0-3) H Basophils % (Manual) 0 % (0-2) Band Neutrophils 1 % (0-8) Platelet Estimate Adequate Platelet Morphology Normal Red Blood Cell Morphology Normal Erythrocyte Sedimentation Rate 54 MM/HR (0-20) H Sodium Level 139 mEQ/L (135-145) Potassium Level 3.1 mEQ/L (3.4-4.9) L Chloride Level 103 mEQ/L (98-107) Carbon Dioxide Level 24 mEQ/L (20-30) Anion Gap 12 (5-15) Blood Urea Nitrogen 11 mg/dL (7-23) Creatinine 0.6 mg/dL (0.7-1.2) L Estimat Glomerular Filtration Rate > 60 mL/min (>60) Glucose Level 151 mg/dL (74-106) H Calcium Level 8.5 mg/dL (8.6-10.2) L Phosphorus Level 2.9 mg/dL (2.5-4.8) Magnesium Level 1.8 mg/dL (1.7-2.5) Total Bilirubin 0.3 mg/dL (0.0-1.2) Aspartate Amino Transf (AST/SGOT) 38 U/L (5-40) Alanine Aminotransferase (ALT/SGPT) 37 U/L (3-41) Alkaline Phosphatase 421 U/L (40-129) H C-Reactive Protein, Quantitative 3.8 mg/dL (< 0.5) H Total Protein 6.1 g/dL (6.6-8.7) L Albumin 3.3 g/dL (3.5-5.2) L Globulin 2.8 g/dL Albumin/Globulin Ratio 1.1 (1.0-2.7) Current Medications Medications (Trade) Dose Ordered Sig/Sima Route PRN Reason Start Time Stop Time Status Last Admin Dose Admin Acetaminophen (Tylenol) 650 mg Q4H PRN ORAL fever 10/05/16 13:30 11/04/16 13:29 Al Hydroxide/Mg Hydroxide (Mylanta II) 30 ml Q6H PRN GT dyspepsia 10/08/16 14:20 11/04/16 13:29 Aztreonam/Dextrose (Azactam/D5W) 55 ml @ 110 mls/hr Q8HR@0000,0800,1600 IVPB 10/06/16 16:00 10/13/16 15:59 10/09/16 08:42 Dextrose (Dextrose 50%) STAT PRN IV Hypoglycemia 10/05/16 13:30 11/04/16 13:29 Dextrose/Sodium Chloride (D5 0.45% NS) 1,000 ml @ 75 mls/hr [id number] IV 10/05/16 15:45 11/04/16 15:44 10/08/16 21:30 Diphenhydramine HCl (Benadryl) 25 mg Q6H PRN ORAL Itching/Pruritis 10/05/16 13:30 11/04/16 13:29 Heparin Sodium (Porcine) (Heparin 5000 units/ml) 5,000 units EVERY 12 HOURS SUBQ 10/05/16 21:00 11/04/16 20:59 10/09/16 08:44 Metronidazole 100 ml @ 100 mls/hr Q8HR IVPB 10/06/16 14:00 10/13/16 13:59 10/09/16 05:30 Midodrine 10 mg 10 mg Q8HR GT 10/05/16 15:45 11/04/16 15:44 10/09/16 05:30 Morphine Sulfate (Morphine Sulfate) 2 mg Q4H PRN IVP severe Pain (Pain Scale 7-10) 10/05/16 13:30 10/12/16 13:29 Nitroglycerin (Ntg) 0.4 mg Q5M X 3 DOSES PRN SL Prn Chest Pain 10/05/16 13:30 11/04/16 13:29 Ondansetron HCl (Zofran) 4 mg Q6H PRN IVP Nausea & Vomiting 10/05/16 13:30 11/04/16 13:29 Pantoprazole 40 mg 40 mg DAILY IVP 10/06/16 09:00 11/05/16 08:59 10/09/16 08:43 Polyethylene Glycol (Miralax) 17 gm HSPRN PRN GT Constipation 10/08/16 14:20 11/04/16 13:29 Temazepam (Restoril) 15 mg HSPRN PRN GT Insomnia 10/08/16 14:21 10/12/16 13:29 MARCELLA MA M.D. Oct 09, 2016 12:14
[2016-10-09 12:31] LABS: MEAN CORPUSCULAR HEMOGLOBIN 29.4 PG (27.0-31.0); MEAN CORPUSCULAR HGB CONC 32.7 G/DL (32.0-36.0); MEAN CORPUSCULAR VOLUME 90 FL (80-99); PLATELET COUNT 264 K/UL (150-450); RED BLOOD COUNT 4.47 M/UL (4.70-6.10); RED CELL DISTRIBUTION WIDTH 14.1 % (11.6-14.8); WHITE BLOOD COUNT 18.8 K/UL (4.8-10.8)
[2016-10-09 13:36] LABS: BAND NEUTROPHILS % (MANUAL) 1 % (0-8); EOSINOPHILS % (MANUAL) 2 % (0-3); LYMPHOCYTES % (MANUAL) 16 % (20-45); NEUTROPHILS % (MANUAL) 75 % (45-75); TOTAL CELLS COUNTED 100
[2016-10-09 13:37] LABS: BASOPHILS % (MANUAL) 0 % (0-2); PLATELET ESTIMATE ADEQUATE; PLATELET MORPHOLOGY NORMAL
--- NOTE | 2016-10-09 13:38 | Diagnostic Imaging Report ---
Indication: DYSPNEA Technique: One view of the chest Comparison: 10/07/2016 Findings: There is decrease infiltrate at the left lung base. There is some residual bilateral basilar atelectasis and possible mild interstitial congestion. Tracheostomy remains. New or increased pleural effusion on the right. There is suggestion of decreased pleural fluid on the left. A calcified granuloma is seen in the left mid to lower lung. Impression: Improved left basilar infiltrate and pleural fluid, over 2 days New or increased small right pleural effusion Mild interstitial congestion
[2016-10-09] MEDS: D5 1/2NS 1,000 ML IV SCH (14:08)
[2016-10-09 16:00] VITALS: BP 110/69
[2016-10-09 20:00] VITALS: BP 132/78
[2016-10-10] VITALS: BP 132/78
[2016-10-10] MEDS: D5 1/2NS 1,000 ML IV SCH (03:00)
[2016-10-10 04:00] VITALS: BP 142/78
[2016-10-10] MEDS: Midodrine 10mg tab GT SCH (05:58)
[2016-10-10] MEDS: metroNIDAZOLE 500mg 100 ML IVPB SCH (06:00)
[2016-10-10 06:36] LABS: EOSINOPHILS % (AUTO) 8.4 % (0.0-3.0); LYMPHOCYTES % (AUTO) 25.8 % (20.0-45.0); MEAN CORPUSCULAR HEMOGLOBIN 30.9 PG (27.0-31.0); MEAN CORPUSCULAR HGB CONC 34.2 G/DL (32.0-36.0); MEAN CORPUSCULAR VOLUME 90 FL (80-99); MEAN PLATELET VOLUME 9.3 FL (6.5-10.1); MONOCYTES % (AUTO) 7.6 % (1.0-10.0); NEUTROPHILS % (AUTO) 57.2 % (45.0-75.0); PLATELET COUNT 241 K/UL (150-450); RED BLOOD COUNT 4.56 M/UL (4.70-6.10); RED CELL DISTRIBUTION WIDTH 14.6 % (11.6-14.8)
[2016-10-10 07:01] LABS: ALANINE AMINOTRANSFERASE 29 U/L (3-41); ALBUMIN/GLOBULIN RATIO 0.8 (1.0-2.7); ANION GAP 11 (5-15); ASPARTATE AMINO TRANSFERASE 27 U/L (5-40); CALCIUM 8.9 mg/dL (8.6-10.2); CARBON DIOXIDE 25 mEQ/L (20-30); CHLORIDE 103 mEQ/L (98-107); CREATININE 0.5 mg/dL (0.7-1.2); CRP QUANT 5.5 mg/dL (< 0.5); GLOMERULAR FILTRATION RATE > 60 mL/min (>60); HEMOLYSIS 5; MAGNESIUM 1.9 mg/dL (1.7-2.5); PHOSPHORUS 2.6 mg/dL (2.5-4.8); POTASSIUM 3.2 mEQ/L (3.4-4.9); SODIUM 139 mEQ/L (135-145); TOTAL PROTEIN 6.7 g/dL (6.6-8.7)
[2016-10-10 08:00] VITALS: BP 125/83
[2016-10-10] MEDS ORDERED: KCl 10% 40mEq/30ml liquid GT ONE (08:00)
[2016-10-10] MEDS: Aztreonam 1gm in D5W 55ml IVPB SCH ×3 (08:03)
[2016-10-10] MEDS: Pantoprazole Inj IVP SCH (08:03)
[2016-10-10] MEDS: Heparin 5000 units/ml inj SUBQ SCH (08:04)
[2016-10-10 08:11] LABS: ERYTHROCYTE SEDIMENTATION RATE 58 MM/HR (0-20)
[2016-10-10] MEDS ORDERED: AZACTAM1 GM IJ (11:29)
--- NOTE | 2016-10-10 11:31 | Pulmonology Progress Note ---
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 Discussed with: nurses, consultants, wrapper caser Subjective ROS Limited/Unobtainable: No Constitutional: Reports: no symptoms HEENT: Repors: no symptoms Respiratory: Reports: no symptoms Allergies: Coded Allergies: OXYTETRACYCLINE (Unverified Allergy, Unknown, 09/05/13) PENICILLINS (Unverified Allergy, Unknown, 09/05/13) Uncoded Allergies: PLASTIC TAPE (Allergy, Mild, ITCHINESS, 08/08/15) Objective Last 24 Hour Vital Signs Date Time Temp Pulse Resp B/P Pulse Ox O2 Delivery O2 Flow Rate FiO2 10/10/16 11:04 81 23 Mechanical Ventilator 40 10/10/16 11:04 81 23 40 10/10/16 08:36 81 24 40 10/10/16 08:00 97.7 74 20 125/83 99 Mechanical Ventilator 40 10/10/16 08:00 40 10/10/16 08:00 68 10/10/16 07:20 69 16 40 10/10/16 05:20 78 13 40 10/10/16 04:00 74 10/10/16 04:00 40 10/10/16 04:00 98.6 79 20 142/78 99 Mechanical Ventilator 40 10/10/16 03:05 71 17 40 10/10/16 01:02 69 16 40 10/10/16 00:00 68 10/10/16 00:00 98.4 84 27 132/78 99 Mechanical Ventilator 40 10/10/16 00:00 40 10/09/16 23:01 69 19 40 10/09/16 21:11 75 18 40 10/09/16 20:00 98.4 84 27 132/78 99 Mechanical Ventilator 40 10/09/16 20:00 40 10/09/16 20:00 76 10/09/16 19:11 75 18 40 10/09/16 16:46 81 25 40 10/09/16 16:01 65 10/09/16 16:00 78 10/09/16 16:00 98.2 75 18 110/69 99 Mechanical Ventilator 10/09/16 15:30 79 20 40 10/09/16 13:13 94 23 40 10/09/16 12:00 83 10/09/16 12:00 65 10/09/16 12:00 98.2 82 25 109/61 100 Mechanical Ventilator 40 10/09/16 11:55 80 17 40 Intake and Output 10/09/16 10/10/16 19:00 07:00 Intake Total 1830 ml 2100 ml Output Total 800 ml 1200 ml Balance 1030 ml 900 ml Intake Free Water 300 ml 300 ml IV Total 810 ml 1080 ml Tube Feeding 720 ml 720 ml Output Urine Total 750 ml 800 ml Stool Total 50 ml 400 ml General Appearance: WD/WN HEENT: normocephalic, atraumatic Respiratory/Chest: chest wall non-tender, lungs clear Cardiovascular: normal peripheral pulses, normal rate Abdomen: normal bowel sounds, no organomegaly Extremities: no cyanosis, no clubbing Skin: no rash Neurologic/Psychiatric: supervisor 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 II-XII grossly normal, abnormal gait Laboratory Tests 10/09/16 12:00: White Blood Count 18.8H, Red Blood Count 4.47L, Hemoglobin 13.2L, Hematocrit 40.3L, Mean Corpuscular Volume 90, Mean Corpuscular Hemoglobin 29.4, Mean Corpuscular Hemoglobin Concent 32.7, Red Cell Distribution Width 14.1, Platelet Count 264, Mean Platelet Volume 9.0, Neutrophils (%) (Auto) , Lymphocytes (%) ( Auto) , Monocytes (%) (Auto) , Eosinophils (%) (Auto) , Basophils (%) (Auto) , Differential Total Cells Counted 100, Neutrophils % (Manual) 75, Lymphocytes % ( Manual) 16L, Monocytes % (Manual) 6, Eosinophils % (Manual) 2, Basophils % ( Manual) 0, Band Neutrophils 1, Platelet Estimate Adequate, Platelet Morphology Normal, Red Blood Cell Morphology Normal 10/10/16 05:50: White Blood Count 9.0#, Red Blood Count 4.56L, Hemoglobin 14.1L, Hematocrit 41.2L, Mean Corpuscular Volume 90, Mean Corpuscular Hemoglobin 30.9, Mean Corpuscular Hemoglobin Concent 34.2, Red Cell Distribution Width 14.6, Platelet Count 241, Mean Platelet Volume 9.3, Neutrophils (%) (Auto) 57.2, Lymphocytes (% ) (Auto) 25.8, Monocytes (%) (Auto) 7.6, Eosinophils (%) (Auto) 8.4H, Basophils (%) (Auto) 1.0, Erythrocyte Sedimentation Rate 58H, Sodium Level 139, Potassium Level 3.2L, Chloride Level 103, Carbon Dioxide Level 25, Anion Gap 11, Blood Urea Nitrogen 11, Creatinine 0.5L, Estimat Glomerular Filtration Rate > 60, Glucose Level 127H, Calcium Level 8.9, Phosphorus Level 2.6, Magnesium Level 1.9 , Total Bilirubin 0.3, Aspartate Amino Transf (AST/SGOT) 27, Alanine Aminotransferase (ALT/SGPT) 29, Alkaline Phosphatase 357H, C-Reactive Protein, Quantitative 5.5H, Total Protein 6.7, Albumin 3.1L, Globulin 3.6, Albumin/ Globulin Ratio 0.8L Current Medications Medications (Trade) Dose Ordered Sig/Sima Route PRN Reason Start Time Stop Time Status Last Admin Dose Admin Acetaminophen (Tylenol) 650 mg Q4H PRN ORAL fever 10/05/16 13:30 11/04/16 13:29 Al Hydroxide/Mg Hydroxide (Mylanta II) 30 ml Q6H PRN GT dyspepsia 10/08/16 14:20 11/04/16 13:29 Aztreonam/Dextrose (Azactam/D5W) 55 ml @ 110 mls/hr Q8HR@0000,0800,1600 IVPB 10/06/16 16:00 10/13/16 15:59 10/10/16 08:03 Dextrose (Dextrose 50%) STAT PRN IV Hypoglycemia 10/05/16 13:30 11/04/16 13:29 Dextrose/Sodium Chloride (D5 0.45% NS) 1,000 ml @ 75 mls/hr [id number] IV 10/05/16 15:45 11/04/16 15:44 10/10/16 03:00 Diphenhydramine HCl (Benadryl) 25 mg Q6H PRN ORAL Itching/Pruritis 10/05/16 13:30 11/04/16 13:29 Heparin Sodium (Porcine) (Heparin 5000 units/ml) 5,000 units EVERY 12 HOURS SUBQ 10/05/16 21:00 11/04/16 20:59 10/10/16 08:04 Metronidazole 100 ml @ 100 mls/hr Q8HR IVPB 10/06/16 14:00 10/13/16 13:59 10/10/16 06:00 Midodrine 10 mg 10 mg Q8HR GT 10/05/16 15:45 11/04/16 15:44 10/10/16 05:58 Morphine Sulfate (Morphine Sulfate) 2 mg Q4H PRN IVP severe Pain (Pain Scale 7-10) 10/05/16 13:30 10/12/16 13:29 Nitroglycerin (Ntg) 0.4 mg Q5M X 3 DOSES PRN SL Prn Chest Pain 10/05/16 13:30 11/04/16 13:29 Ondansetron HCl (Zofran) 4 mg Q6H PRN IVP Nausea & Vomiting 10/05/16 13:30 11/04/16 13:29 Pantoprazole 40 mg 40 mg DAILY IVP 10/06/16 09:00 11/05/16 08:59 10/10/16 08:03 Polyethylene Glycol (Miralax) 17 gm HSPRN PRN GT Constipation 10/08/16 14:20 11/04/16 13:29 Temazepam (Restoril) 15 mg HSPRN PRN GT Insomnia 10/08/16 14:21 10/12/16 13:29 [place] CRAMER Oct 10, 2016 11:31
[2016-10-10 12:00] VITALS: BP 116/80
[2016-10-10] MEDS ORDERED: D5 1/2NS 1000ml IV ONE (12:59)
--- NOTE | 2016-10-10 13:50 | GI Progress Note ---
Assessment/Plan Problems: (1) Feeding by G-tube ICD Codes: Z93.1 - Feeding by G-tube SNOMED: 205603982 (2) GI bleed ICD Codes: K92.2 - Gastrointestinal hemorrhage, unspecified SNOMED: 57036929 (3) Coffee ground emesis ICD Codes: K92.0 - Hematemesis SNOMED: 922011852, 30674805 (4) Abdominal distension ICD Codes: R14.0 - Abdominal distension (gaseous) SNOMED: 47823913 (5) Malfunction of gastrostomy tube ICD Codes: K94.23 - Gastrostomy malfunction SNOMED: 959595130 Status: stable, unchanged Status Narrative Discussed with Dr. Rosas. Assessment/Plan APCT reviewed >> no obvious ileus resume GTF's per dietary prn blood transfusion ppi BID bowel regime >> on rectal tube fu labs Subjective Subjective limited Objective Last 24 Hour Vital Signs Date Time Temp Pulse Resp B/P Pulse Ox O2 Delivery O2 Flow Rate FiO2 10/10/16 12:00 98.1 71 18 116/80 96 Mechanical Ventilator 40 10/10/16 12:00 75 10/10/16 12:00 40 10/10/16 11:04 81 23 Mechanical Ventilator 40 10/10/16 11:04 81 23 40 10/10/16 08:36 81 24 40 10/10/16 08:00 97.7 74 20 125/83 99 Mechanical Ventilator 40 10/10/16 08:00 40 10/10/16 08:00 68 10/10/16 07:20 69 16 40 10/10/16 05:20 78 13 40 10/10/16 04:00 74 10/10/16 04:00 40 10/10/16 04:00 98.6 79 20 142/78 99 Mechanical Ventilator 40 10/10/16 03:05 71 17 40 10/10/16 01:02 69 16 40 10/10/16 00:00 68 10/10/16 00:00 98.4 84 27 132/78 99 Mechanical Ventilator 40 10/10/16 00:00 40 10/09/16 23:01 69 19 40 10/09/16 21:11 75 18 40 10/09/16 20:00 98.4 84 27 132/78 99 Mechanical Ventilator 40 10/09/16 20:00 40 10/09/16 20:00 76 10/09/16 19:11 75 18 40 10/09/16 16:46 81 25 40 10/09/16 16:01 65 10/09/16 16:00 78 10/09/16 16:00 98.2 75 18 110/69 99 Mechanical Ventilator 10/09/16 15:30 79 20 40 Intake and Output 10/09/16 10/10/16 19:00 07:00 Intake Total 1830 ml 2100 ml Output Total 800 ml 1200 ml Balance 1030 ml 900 ml Intake Free Water 300 ml 300 ml IV Total 810 ml 1080 ml Tube Feeding 720 ml 720 ml Output Urine Total 750 ml 800 ml Stool Total 50 ml 400 ml Laboratory Tests Test 10/10/16 05:50 White Blood Count 9.0 K/UL (4.8-10.8) # Red Blood Count 4.56 M/UL (4.70-6.10) L Hemoglobin 14.1 G/DL (14.2-18.0) L Hematocrit 41.2 % (42.0-52.0) L Mean Corpuscular Volume 90 FL (80-99) Mean Corpuscular Hemoglobin 30.9 PG (27.0-31.0) Mean Corpuscular Hemoglobin Concent 34.2 G/DL (32.0-36.0) Red Cell Distribution Width 14.6 % (11.6-14.8) Platelet Count 241 K/UL (150-450) Mean Platelet Volume 9.3 FL (6.5-10.1) Neutrophils (%) (Auto) 57.2 % (45.0-75.0) Lymphocytes (%) (Auto) 25.8 % (20.0-45.0) Monocytes (%) (Auto) 7.6 % (1.0-10.0) Eosinophils (%) (Auto) 8.4 % (0.0-3.0) H Basophils (%) (Auto) 1.0 % (0.0-2.0) Erythrocyte Sedimentation Rate 58 MM/HR (0-20) H Sodium Level 139 mEQ/L (135-145) Potassium Level 3.2 mEQ/L (3.4-4.9) L Chloride Level 103 mEQ/L (98-107) Carbon Dioxide Level 25 mEQ/L (20-30) Anion Gap 11 (5-15) Blood Urea Nitrogen 11 mg/dL (7-23) Creatinine 0.5 mg/dL (0.7-1.2) L Estimat Glomerular Filtration Rate > 60 mL/min (>60) Glucose Level 127 mg/dL (74-106) H Calcium Level 8.9 mg/dL (8.6-10.2) Phosphorus Level 2.6 mg/dL (2.5-4.8) Magnesium Level 1.9 mg/dL (1.7-2.5) Total Bilirubin 0.3 mg/dL (0.0-1.2) Aspartate Amino Transf (AST/SGOT) 27 U/L (5-40) Alanine Aminotransferase (ALT/SGPT) 29 U/L (3-41) Alkaline Phosphatase 357 U/L (40-129) H C-Reactive Protein, Quantitative 5.5 mg/dL (< 0.5) H Total Protein 6.7 g/dL (6.6-8.7) Albumin 3.1 g/dL (3.5-5.2) L Globulin 3.6 g/dL Albumin/Globulin Ratio 0.8 (1.0-2.7) L Height (Feet): 5 Height (Inches): 9.00 Weight (Pounds): 146 General Appearance: no apparent distress, alert Cardiovascular: normal rate Respiratory/Chest: normal breath sounds, no respiratory distress, other - mech vent Abdominal Exam: GT site - c/d/i Katina Garcia N.P. Oct 10, 2016 13:50
--- NOTE | 2016-10-13 09:24 | Discharge Summary ---
Discharge Summary Hospital Course Date of Admission Oct 05, 2016 at 12:24 Date of Discharge Oct 10, 2016 at 13:00 Admitting Diagnosis UPPER GI BLEED KIZZY Mike is a 61 year old male who was admitted on Oct 05, 2016 at 12:24 for Upper Gi Bleed Hospital Course dc summary #[id number] Discharge Medications New Medications: Aztreonam (Azactam) 1 Gm Vial 1 GM IJ EVERY 8 HOURS for 3 Days, VIAL Continued Medications: Acetaminophen (Tylenol) 325 Mg Tab 650 MG GT DAILY, #30 TAB 0 Refills Albuterol Sulfate* (Albuterol Sulfate Hhn*) 2.5 Mg/3 Ml Vial.neb 3 ML INH Q6H for Shortness of Breath, #30 EA 0 Refills Enoxaparin* (Lovenox*) 40 Mg/0.4 Ml Inj 40 MG SUBQ DAILY Famotidine (Famotidine) 20 Mg Tablet 20 MG GT DAILY, #30 TAB 0 Refills Hydrocodone Bit/Acetaminophen 10-325* ([place] 10-325*) 1 Each Tablet 1 TAB GT Q12HR PRN for For Pain, #10 TAB 0 Refills PRN PAIN Insulin Lispro (Humalog) 100 Unit/1 Ml Cartridge 0 SUBQ, #1 UNITS 0 Refills Midodrine* (Proamatine*) 10 Mg Tablet 10 MG GT Q8HR, TAB Ondansetron* (Zofran*) 4 Mg Tablet 4 MG ORAL Q6H PRN for Nausea & Vomiting, TAB Discharge Condition Upon Discharge: stable Discharge Disposition Patient was discharged to SNF/Subacute Facility(03) Discharge Diagnoses: Discharge Instructions Discharge Instructions Special Instructions I have been assigned to complete a D/C Summary on this account. I was not involved in the patient management Taylor Bernard NP ([place]) Oct 13, 2016 09:24
--- NOTE | 2016-10-13 23:46 | Discharge Summary 2 SIG ---
DATE OF ADMISSION: 10/05/2016 DATE OF DISCHARGE: 10/10/2016 REASON FOR ADMISSION: The patient is a 61-year-old male with a history of cerebral hemorrhage following by respiratory failure on mechanical ventilation status post tracheostomy, percutaneous endoscopic gastrostomy, renal failure, and dementia, presented to the emergency department with abdominal distention and coffee-ground emesis. CT of the abdomen shows possible sigmoid volvulus. Surgery and GI consult requested immediately. WBC 21.5. Elevated AST and ALT. Lipase stable. Lactic acid 3.2. Troponin negative. The patient was admitted for further management. The patient was febrile with highest temperature in the ER of 101.1. Chest x-ray revealed left perihilar infiltrate and CT of the abdomen and pelvis in addition to possible volvulus revealed findings suspicious for pneumonia. ADMITTING DIAGNOSES: 1. Severe sepsis. 2. Acute on chronic ventilator-dependent respiratory failure tracheostomy. 3. Aspiration pneumonia. 4. Abdominal distention, possible sigmoid volvulus. 5. Upper gastrointestinal bleeding. 6. Dysphagia gastrostomy tube. 7. Elevated liver function tests likely shock liver. HOSPITAL STAY: The patient was admitted to [facility]. Ventilator support and pulmonary toilet was provided. ABG was stable on current setting. Settings kept as is. Surgeon and GI consult requested immediately. Per surgeon who has seen and evaluated the patient and reviewed personally CT of the abdomen. CT of the abdomen and pelvis revealed gaseous distention of the colon with sigmoid distended to 8 cm in caliber. Transverse colon was also distended to 7 cm. The right colon was normal in caliber. There was no cecal distention. There was no small bowel obstruction. There was no pneumatosis intestinalis or portal venous gas. CT of the scan also revealed cholelithiasis. The patient underwent placement of rectal tube in the emergency department with some decompression of colon. KUB confirmed placement of rectal tube. There was still persistent dilatation of the proximal sigmoid and transverse colon. Per surgeon, recommended GI evaluation with colonoscopy for possible decompressive colonoscopy. GI seen and evaluated the patient. GI specialist personally revealed a CT of the abdomen and pelvis. There was no obvious ileus. Colon mildly distended throughout may be minimum colonic ileus, but no obvious volvulus. He slowly resumed tube feeding with continued rectal tube. Bowel regimen was provided. GI specialist closely followed. The patient was able to tolerate tube feeding. Feeding increased to desire trait. Rectal tube was later discontinued. The patient had bowel movement. PPI provided. The patient's LFTs were trending down. Electrolytes replaced as needed. Hemoglobin and hematocrit were closely monitored. Surgery closely followed. Per surgeon who has seen the patient the next day, there was no acute event. The patient was afebrile and hemodynamically stable. Leukocytosis resolved and abdomen was benign. Surgeon concluded no acute surgical interventions were necessary and continue tube feeding. Hemoglobin and hematocrit were closely monitored. They were stable. No need for transfusion. ID closely followed. Blood culture revealed Staph coag-negative likely contamination. The patient was treated empirically for aspiration pneumonia. Sputum was not collected. Final chest x-ray prior to discharge revealed improved left base infiltrate. Leukocytosis resolved. ABG stable on current setting. Strict aspiration precautions were maintained. The patient was able to tolerate G-tube feeding. DVT and GI prophylaxis provided. Leukocytosis resolved. Electrolytes replaced and stable. Potassium was replaced prior to discharge one additional time. Magnesium stable. LFT down to normal. The patient was stable to be discharged back to halfway facility subacute unit. DISCHARGE DIAGNOSES: 1. Upper gastrointestinal bleeding. 2. Abdominal distention possible sigmoid volvulus. 3. Severe sepsis. 4. Acute on chronic ventilator-dependent respiratory failure likely due to aspiration pneumonia. 5. Aspiration pneumonia. 6. Tracheostomy status. 7. Dysphagia gastrostomy tube. 8. Elevated transaminitis, resolved. 9. Hypokalemia. 10. Shock liver. 11. Elevated liver function test. DISCHARGE MEDICATIONS: See medication reconciliation list. DISCHARGE INSTRUCTIONS: The patient was discharged to subacute halfway facility. FOLLOWUP: Follow up with medical doctor and operations liaison at the facility. Sagar Rudd M.D. I have been assigned to dictate discharge summary on this account and I was not involved in the patient's management. Taylor Bernard (vanchtein) NRenato DR: [place] JOB#: [id number] CC:
== END 2016-10-10 13:00 | DRG 720 ==
LOC: EDBD 09:54 → EDBEDREQ 10:05 → EMR 10:18 → EDBEDREQ 11:30 → 2E 12:24 → EDBEDREQ 18:25 → ICU 19:02 → 2W 10-06 15:12
PROC: 5A1955Z Respiratory Ventilation, Greater than 96 Consecutive Hours (ICD-10-PCS; principal; 2016-10-05)
DX: A41.9 Sepsis, unspecified organism (principal); J96.20 Acute and chronic respiratory failure, unspecified whether with hypoxia or hypercapnia; K72.00 Acute and subacute hepatic failure without coma; J69.0 Pneumonitis due to inhalation of food and vomit; K56.2 Volvulus; Z99.11 Dependence on respirator [ventilator] status; L89.150 Pressure ulcer of sacral region, unstageable; Z43.0 Encounter for attention to tracheostomy; K92.2 Gastrointestinal hemorrhage, unspecified; R13.10 Dysphagia, unspecified; Z86.73 Personal history of transient ischemic attack (TIA), and cerebral infarction without residual deficits; Z43.1 Encounter for attention to gastrostomy; Z88.0 Allergy status to penicillin; Z88.8 Allergy status to other drugs, medicaments and biological substances; I69.198 Other sequelae of nontraumatic intracerebral hemorrhage; E11.9 Type 2 diabetes mellitus without complications; F41.9 Anxiety disorder, unspecified; R65.20 Severe sepsis without septic shock; R14.0 Abdominal distension (gaseous); E87.6 Hypokalemia; F03.90 Unspecified dementia, unspecified severity, without behavioral disturbance, psychotic disturbance, mood disturbance, and anxiety
CPT/HCPCS: 36415; 36600; 71010; 74000; 74177; 80048; 80053; 80202; 82150; 82550; 82553; 82803; 82962; 83605; 83690; 83735; 84100; 84484; 85007; 85025; 85610; 85651; 85730; 86140; 86850; 86900; 86901; 87040; 87070; 87181; 87205; 87324; 93005; 94002; 94003; 94664; J2405; S0077

== ENCOUNTER 2016-12-10 11:19 | Emergency (ER) | payer OTHER ==
[~2016-12-10] VITALS: Ht 177.8 cm; Wt 81.6 kg
[~2016-12-10 11:19] MED LIST changes: +AZACTAM1 GM IJ; +HEPARIN SO5000 UNIT2 SUBQ
[2016-12-10 11:41] VITALS: BP 106/76
[2016-12-10 12:57] VITALS: BP 98/50
--- NOTE | 2016-12-10 13:14 | Diagnostic Imaging Report ---
Indication: TUBE PLCMT Technique: Supine view of the abdomen after injection of water-soluble contrast into gastrostomy Comparison: 10/05/2016 Findings: Contrast opacifies the stomach. No contrast extravasation is demonstrated. The bowel gas pattern is unremarkable. As previously, the sigmoid is somewhat distended by gas. Impression: Satisfactory position of gastrostomy tube
--- NOTE | 2016-12-10 13:47 | Emergency Room Report ---
History of Present Illness General Chief Complaint: Malfunctioning Gastric Tube Source: Patient Present Illness HPI Patient is a 61-year-old male who presented after a accidentally removing his G- tube. The patient a Brooks catheter subsequently placed. Patient noted be tracheostomy vent dependent. Per EMS patient was not noted be having any fever. The patient had prior history of allergies to tape Allergies: Coded Allergies: OXYTETRACYCLINE (Unverified Allergy, Unknown, 09/05/13) PENICILLINS (Unverified Allergy, Unknown, 09/05/13) Uncoded Allergies: PLASTIC TAPE (Allergy, Mild, ITCHINESS, 08/08/15) MEDICAL TAPE (Allergy, Unknown, 12/10/16) Patient History Past Medical History: see triage record Reviewed Nursing Documentation: PMH: Agreed, PSxH: Agreed Nursing Documentation-PMH Hx Cardiac Problems: Yes Hx Hypertension: Yes Hx COPD: Yes Hx Diabetes: Yes Hx Cancer: No Hx Gastrointestinal Problems: Yes Hx Dialysis: No - ESRD Hx Neurological Problems: Yes - anoxic brain Hx Cerebrovascular Accident: Yes Hx Transient Ischemic Attacks: Yes Hx Dementia: Yes Hx Parkinson's Disease: Yes Hx Memory Loss: Yes Hx Concentration Difficulty: Yes Hx Speech Problem: Yes Hx Dysphasia: Yes Review of Systems All Other Systems: limited - by mental status Physical Exam Vital Signs Date Time Temp Pulse Resp B/P (MAP) Pulse Ox O2 Delivery O2 Flow Rate FiO2 12/10/16 11:19 97.0 102 12 106/76 98 Trach Collar 5.0 12/10/16 11:35 40 Sp02 EP Interpretation: reviewed, normal General Appearance: no apparent distress, Chronically Ill Head: atraumatic ENT: normal ENT inspection, hearing grossly normal, normal voice Neck: normal inspection, full range of motion, supple, no bony tend Respiratory: normal inspection, no respiratory distress, no retraction, no wheezing Cardiovascular #1: regular rate, rhythm, no edema Gastrointestinal: normal inspection, normal bowel sounds, non tender, soft, no guarding, no hernia Genitourinary: no CVA tenderness Musculoskeletal: normal inspection, back normal, normal range of motion Neurologic: normal inspection, alert, responsive, speech normal Psychiatric: normal inspection, judgement/insight normal, mood/affect normal Skin: no rash, other - slight erythema to abdominal wall, no discharge from gtube stoma Medical Decision Making Diagnostic Impression: Primary Impression: Malfunction of percutaneous endoscopic gastrostomy (PEG) tube ER Course Patient presented for G-tube replacement. Gastrostomy tube was replaced with sterile technique. Post procedure x-ray showed adequate gastrostomy tube placement. Patient tolerated well without complications. The patient was discharged back to senior care. The patient G-tube site appears to be mildly erythematous which is likely due to tape allergy Patient was return for fever persistent vomiting, other concerns.The patient was sent home via ambulance Last Vital Signs Date Time Temp Pulse Resp B/P (MAP) Pulse Ox O2 Delivery O2 Flow Rate FiO2 12/10/16 12:57 98.0 90 13 98/50 33 Mechanical Ventilator 5.0 40 Status: improved Disposition: XFER SNF Condition: Stable Referrals: ESTEFANY RUBI (PCP) Patient Instructions: Gastrostomy Tube Home Guide, Adult Margarito Fitzgerald Dec 10, 2016 13:47
[2016-12-10 15:49] VITALS: BP 100/71
== END 2016-12-10 15:50 ==
LOC: EDUNIT# 11:19 → EDBD 11:19 → EMR 11:35
DX: K94.23 Gastrostomy malfunction (principal); Z99.11 Dependence on respirator [ventilator] status; Z88.0 Allergy status to penicillin; Z86.79 Personal history of other diseases of the circulatory system; I10 Essential (primary) hypertension; J44.9 Chronic obstructive pulmonary disease, unspecified; E11.9 Type 2 diabetes mellitus without complications; I12.0 Hypertensive chronic kidney disease with stage 5 chronic kidney disease or end stage renal disease; N18.6 End stage renal disease; G93.1 Anoxic brain damage, not elsewhere classified; Z86.73 Personal history of transient ischemic attack (TIA), and cerebral infarction without residual deficits; G20 Parkinson's disease; F02.80 Dementia in other diseases classified elsewhere, unspecified severity, without behavioral disturbance, psychotic disturbance, mood disturbance, and anxiety; R41.3 Other amnesia; R47.02 Dysphasia
CPT/HCPCS: 43760; 74000; 94002; 94003; 99284; Q9963

== ENCOUNTER 2017-01-21 10:34 | Inpatient (IN) | payer OTHER ==
[2017-01-21] VITALS (7 sets, daily range): BP systolic 9–143; BP diastolic 70–97
[~2017-01-21] VITALS: Ht 162.6 cm; Wt 71.7 kg
[2017-01-21] MEDS ORDERED: AMANTADINE100 M2 GT (10:43)
[2017-01-21] MEDS ORDERED: COUMADIN5 MG GT (10:43)
[2017-01-21] MEDS ORDERED: DOCUSATE SODIU100 MG GT (10:43)
[2017-01-21] MEDS ORDERED: ATORVASTATIN CA20 MG GT (10:43)
[2017-01-21] MEDS ORDERED: Pantoprazole Inj IVP ONE (10:45)
--- NOTE | 2017-01-21 11:43 | Emergency Room Report ---
History of Present Illness General Chief Complaint: Gastrointestinal Bleed Source: Medical Record, EMS Present Illness HPI 61-year-old male coming from the longterm, history of respiratory failure, ventilator dependent, tracheostomy, diabetes, COPD, PEG tube, bedbound, nonverbal, full code, presenting with coffee-ground emesis. Nursing stated that he had a few episodes of coffee-ground emesis, blood pressure was normal. Patient noted to be on Coumadin for history of DVTs. Patient last admitted and discharged in March for coffee-ground emesis, at that time patient was noted to have ileus. Per notes, there was a possibility of sigmoid volvulus, however imaging was reviewed by gastroenterology and noted that it is just ileus, patient had a rectal tube placed, and slowly improved At that admission there is no endoscopy or colonoscopy performed Allergies: Coded Allergies: OXYTETRACYCLINE (Unverified Allergy, Unknown, 09/05/13) PENICILLINS (Unverified Allergy, Unknown, 09/05/13) Uncoded Allergies: PLASTIC TAPE (Allergy, Mild, ITCHINESS, 08/08/15) MEDICAL TAPE (Allergy, Unknown, 12/10/16) Patient History Past Medical History: see triage record Past Surgical History: unable to obtain Pertinent Family History: unable to obtain Reviewed Nursing Documentation: PMH: Agreed, PSxH: Agreed Nursing Documentation-PMH Past Medical History: No History, Except For Hx Cardiac Problems: Yes Hx Hypertension: Yes Hx COPD: Yes Hx Diabetes: Yes Hx Cancer: No Hx Gastrointestinal Problems: Yes Hx Dialysis: No - ESRD Hx Neurological Problems: Yes - anoxic brain Hx Cerebrovascular Accident: Yes Hx Transient Ischemic Attacks: Yes Hx Dementia: Yes Hx Parkinson's Disease: Yes Hx Memory Loss: Yes Hx Concentration Difficulty: Yes Hx Speech Problem: Yes Hx Dysphasia: Yes Review of Systems All Other Systems: limited - nonverbal Physical Exam Vital Signs Date Time Temp Pulse Resp B/P (MAP) Pulse Ox O2 Delivery O2 Flow Rate FiO2 01/21/17 10:31 97.7 114 12 116/82 98 Mechanical Ventilator 40 Sp02 EP Interpretation: reviewed, abnormal - vented General Appearance: other - Thin, chronically ill-appearing male, eyes open however not responsive Head: normocephalic, atraumatic Eyes: bilateral eye normal inspection, bilateral eye PERRL, bilateral eye EOMI ENT: normal pharynx, moist mucus membranes, other - +trached Neck: normal inspection, full range of motion Respiratory: other - trached, mech vent sounds bl, chest symmetrical Cardiovascular #1: normal inspection, regular rate, rhythm, no edema, normal capillary refill Cardiovascular #2: 2+ radial (R), 2+ radial (L) Gastrointestinal: other - peg tube, mild distension, no grimace to deep palpation Musculoskeletal: other - contracted lower ext Neurologic: other - nonverbal Skin: normal inspection, normal color, no rash, warm/dry, well hydrated, normal turgor Procedures Critical Care Time Critical Care Time 40 minutes of CC time 61-year-old male, coffee-ground emesis, on Coumadin VS: Normal Patient is trach tube to ventilator PLAN: IV access, labs, lactate, Blood/Urine Cx, Abx, Protonix Anticipate admission to [facility] CC time also includes review of labs, review of EMR, discussion with family and paperwork from SNF, d/w hospitalist CC could include dosing of pressors, additional Abx CC time does not include procedures Medical Decision Making Diagnostic Impression: Primary Impression: Coffee ground emesis Additional Impressions: Respiratory failure Tracheostomy dependence ER Course 61-year-old male, bedbound nonverbal, on Coumadin, episode of coffee-ground emesis DDX: Upper GI bleed,, gastric ulcer gastritis, AV malformation No history of alcohol abuse reported by Snf nurse for worry of esophageal varices Plan: Obtain labs, ua, EKG, CXR, type and screen, coags, Protonix ER course: Patient has been monitored during ED stay, HD stable No further episodes of coffee-ground emesis in the emergency room protonix given INR 2.0 CT performed as had dilated loops of bowel on CXR CT abdo pelvis performed - no mech obstruction +UTI, IV abx given Disposition: Patient is to be admitted to [facility] D/W hospitalist Dr Rudd who has accepted patient for admission Please note that this Emergency Department Report was dictated using [employer] technology software, occasionally this can lead to erroneous entry secondary to interpretation by the dictation equipment. EKG Diagnostic Results EP Interpretation: Yes Rate: Tachycardic Rhythm: NSR ST Segments: No acute changes ASA given to patient: No Rhythm Strip EP Interpretation: Yes Rate: 100 Rhythm: NSR, no PVCs, no ectopy Chest X-ray CXR: Ordered: Yes 1 view Indication: Shortness of breath EP interpretation: Yes Interpretation: Dilated loops of bowel Impression: Dilated loops of bowel Electronically signed by Terrence Solano MD Laboratory Tests Test 01/21/17 12:05 01/21/17 12:30 Urine Color Yellow Urine Appearance Slightly cloudy Urine pH 6 (4.5-8.0) Urine Specific [place] 1.020 (1.005-1.035) Urine Protein 1+ (NEGATIVE) H Urine Glucose (UA) Negative (NEGATIVE) Urine Ketones Negative (NEGATIVE) Urine Occult Blood 4+ (NEGATIVE) H Urine Nitrite Positive (NEGATIVE) H Urine Bilirubin Negative (NEGATIVE) Urine Urobilinogen Normal MG/DL (0.0-1.0) Urine Leukocyte Esterase 2+ (NEGATIVE) H Urine RBC 0-2 /HPF (0 - 0) H Urine WBC 2-4 /HPF (0 - 0) Urine Squamous Epithelial Cells Occasional /LPF Urine Bacteria Moderate /HPF (NONE) H White Blood Count 13.4 K/UL (4.8-10.8) H Red Blood Count 5.10 M/UL (4.70-6.10) Hemoglobin 15.6 G/DL (14.2-18.0) Hematocrit 46.6 % (42.0-52.0) Mean Corpuscular Volume 91 FL (80-99) Mean Corpuscular Hemoglobin 30.7 PG (27.0-31.0) Mean Corpuscular Hemoglobin Concent 33.5 G/DL (32.0-36.0) Red Cell Distribution Width 12.9 % (11.6-14.8) Platelet Count 265 K/UL (150-450) Mean Platelet Volume 11.6 FL (6.5-10.1) H Neutrophils (%) (Auto) 80.0 % (45.0-75.0) H Lymphocytes (%) (Auto) 12.6 % (20.0-45.0) L Monocytes (%) (Auto) 5.5 % (1.0-10.0) Eosinophils (%) (Auto) 1.3 % (0.0-3.0) Basophils (%) (Auto) 0.7 % (0.0-2.0) Prothrombin Time 20.7 SEC (9.30-11.50) H Prothrombin Time INR 2.0 (0.9-1.1) H PTT 41 SEC (23-33) H Sodium Level 142 MMOL/L (136-145) Potassium Level 4.1 MMOL/L (3.5-5.1) Chloride Level 106 MMOL/L (98-107) Carbon Dioxide Level 26 MMOL/L (21-32) Anion Gap 10 mmol/L (5-15) Blood Urea Nitrogen 21 mg/dL (7-18) H Creatinine 0.7 MG/DL (0.55-1.30) Estimate Glomerular Filtration Rate > 60 mL/min (>60) Glucose Level 124 MG/DL (74-106) H Lactic Acid Level 1.30 mmol/L (0.66-2.22) Calcium Level 10.0 MG/DL (8.5-10.1) Iron Level Pending Unsaturated Iron Binding Pending Total Bilirubin 0.7 MG/DL (0.2-1.0) Aspartate Amino Transferase (AST) 73 U/L (15-37) H Alanine Aminotransferase (ALT) 90 U/L (12-78) H Alkaline Phosphatase 711 U/L (46-116) H Total Creatine Kinase 51 U/L (26-308) Creatine Kinase MB 1.1 NG/ML (0.0-3.6) Creatine Kinase MB Relative Index 2.1 Troponin I 0.000 ng/mL (0.000-0.056) Pro-B-Type Natriuretic Peptide 239 pg/mL (0-125) H Total Protein 8.6 G/DL (6.4-8.2) H Albumin 3.0 G/DL (3.4-5.0) L Globulin 5.6 g/dL Albumin/Globulin Ratio 0.5 (1.0-2.7) L Lipase 334 U/L (73-393) CT/MRI/US Diagnostic Results CT/MRI/US Diagnostic Results : Imaging Test Ordered: CT abdo pelvis Impression Impression: Gaseous distention of the transverse colon and sigmoid. No evident obstructive lesion related to these. Distention is slightly decreased from the previous study. Suspect functional in nature, baseline for this patient Gastric distention, uncertain significance as no downstream gastric obstruction is evident Previously demonstrated rectal wall foreign body is no longer evident Bilateral basilar pulmonary atelectasis and/or consolidation Gastrostomy, position satisfactory and -- unchanged . Cholelithiasis, also previously described Nonobstructive bilateral intrarenal calculi Multiple bladder calculi, larger and/or more numerous than on the previous exam Minimal retrosacral decubitus changes Subcentimeter low-attenuation left renal lesions, too small to characterize, most likely small benign simple cortical cysts. No further followup necessary Other findings as noted, including small sliding type hiatal hernia, tiny fat-containing the level hernia, left hepatic lobe granulomatous calcification, prostatic calcifications, bilateral L5 spondylolysis and associated spondylolisthesis Last Vital Signs Date Time Temp Pulse Resp B/P (MAP) Pulse Ox O2 Delivery O2 Flow Rate FiO2 01/21/17 10:54 103 12 Mechanical Ventilator 01/21/17 10:49 40 01/21/17 10:41 98.5 100 Disposition: ADMITTED INPATIENT Condition: Critical Referrals: ESTEFANY RUBI (PCP) Terrence Solano M.D. Jan 21, 2017 11:43
--- NOTE | 2017-01-21 11:47 | Diagnostic Imaging Report ---
Indication: SOB Technique: One view of the chest Comparison: 10/09/2016 Findings: There is elevation right hemidiaphragm and some atelectasis at the right lung base. The lungs and pleural spaces are otherwise clear. Previously demonstrated basilar consolidation and congestion are no longer evident. Previously demonstrated calcified granuloma in the left lower lung is unchanged. There is a tracheostomy. There is a gastrostomy. Considerable gas is seen in the colon. Impression: Bibasilar atelectasis. No definite acute pulmonary process otherwise Considerable colon gas, nonspecific Other findings as noted
[2017-01-21] MEDS ORDERED: Albuterol/Ipratropium 3ml neb HHN PRN (12:45)
[2017-01-21] MEDS ORDERED: Miralax 17gm pkt ORAL PRN (12:45)
[2017-01-21] MEDS ORDERED: LORazepam Inj 2mg/ml 1ml IV PRN (12:45)
[2017-01-21] MEDS ORDERED: Morphine Sulfate 4mg/ml Inj IVP PRN (12:45)
[2017-01-21 12:50] LABS: BASOPHILS % (AUTO) 0.7 % (0.0-2.0); EOSINOPHILS % (AUTO) 1.3 % (0.0-3.0); HEMATOCRIT 46.6 % (42.0-52.0); HEMOGLOBIN 15.6 G/DL (14.2-18.0); LYMPHOCYTES % (AUTO) 12.6 % (20.0-45.0); MEAN CORPUSCULAR VOLUME 91 FL (80-99); MONOCYTES % (AUTO) 5.5 % (1.0-10.0); PLATELET COUNT 265 K/UL (150-450); RED CELL DISTRIBUTION WIDTH 12.9 % (11.6-14.8); WHITE BLOOD COUNT 13.4 K/UL (4.8-10.8)
[2017-01-21 12:51] LABS: BILIRUBIN, URINE NEGATIVE (NEGATIVE); GLUCOSE, URINE (UA) NEGATIVE (NEGATIVE); KETONES,URINE NEGATIVE (NEGATIVE); LEUKOCYTE ESTERASE ,URINE 2+ (NEGATIVE); NITRITE,URINE POSITIVE (NEGATIVE); PH,URINE 6 (4.5-8.0); PROTEIN,URINE 1+ (NEGATIVE); UROBILINOGEN,URINE NORMAL MG/DL (0.0-1.0)
[2017-01-21 12:53] LABS: APPEARANCE,URINE SLIGHTLY CLOUDY; COLOR,URINE YELLOW
[2017-01-21] MEDS ORDERED: Aztreonam Inj 2 GM in NS 110 ML IVPB ONE (13:15)
[2017-01-21] MEDS ORDERED: Cefepime HCl 2 GM in D5W 110 ML IVPB ONE (13:15)
[2017-01-21] MEDS ORDERED: Vancomycin 1.5gm/D5W 250ml 250 ML IVPB ONE (13:15)
[2017-01-21 13:38] LABS: % IRON SATURATION 36 % (15-50); IRON 86 ug/dL (50-175); TOTAL IRON BINDING CAPACITY 240 ug/dL (250-450)
[2017-01-21 13:49] LABS: ALANINE AMINOTRANSFERASE 90 U/L (12-78); ALBUMIN/GLOBULIN RATIO 0.5 (1.0-2.7); ALKALINE PHOSPHATASE 711 U/L (46-116); ANION GAP 10 mmol/L (5-15); ASPARTATE AMINO TRANSFERASE 73 U/L (15-37); BILIRUBIN,TOTAL 0.7 MG/DL (0.2-1.0); BLOOD UREA NITROGEN 21 mg/dL (7-18); CARBON DIOXIDE 26 MMOL/L (21-32); CHLORIDE 106 MMOL/L (98-107); CKMB 1.1 NG/ML (0.0-3.6); CREATINE KINASE 51 U/L (26-308); CREATININE 0.7 MG/DL (0.55-1.30); POTASSIUM 4.1 MMOL/L (3.5-5.1); SODIUM 142 MMOL/L (136-145)
--- NOTE | 2017-01-21 15:20 | Diagnostic Imaging Report ---
Clinical Indication: 61-year-old male from senior care, history of coffee-ground emesis, abdominal pain Technique: Patient given oral contrast. IV administration nonionic contrast. Venous phase spiral acquisition obtained through the abdomen and pelvis. Multiplanar reconstructions were generated. Total dose length product 970 mGycm. CTDIvol(s) 16 mGy. Dose reduction achieved using automated exposure control Comparison: 10/05/2016 Findings: Again demonstrated is dilatation of the sigmoid colon, with tapering to normal caliber distally but no evidence of stricture or or other obstructive process. A metallic foreign body in or near the rectal wall seen previously is not evident on this exam. The transverse colon is also dilated, tapers gradually to normal caliber at the level of the proximal descending colon, without evidence of obstructive mass or stricture. The degree of distention of the sigmoid and the transverse colon is slightly decreased from the prior exam normal caliber ascending colon. Normal appendix. Contrast is seen throughout the entirety of the small bowel, and a small amount of contrast does reach the cecum. No small bowel distention or small bowel wall thickening. Again demonstrated is a gastrostomy tube, appearing in good position. The stomach is distended, more so than on the prior exam, but no gastric obstructing lesion is demonstrated. Small hiatal hernia demonstrated, and there is some slight distention of the distal esophagus. Hepatic colonic interposition is again noted. No free or loculated intraperitoneal air or fluid is evident. There is a tiny fat-containing umbilical hernia. Some edema of the presacral fat is again demonstrated, appears unchanged. Again demonstrated are numerous gallstones within the gallbladder, which is nondistended. A calcification is seen within the left hepatic lobe. No other focal hepatic abnormalities. There is prominence of the central intrahepatic bile ducts, unchanged. No extrahepatic biliary ductal dilatation is, although the common bile duct is upper limits of normal in caliber. The pancreas is unremarkable. The spleen is unremarkable. The adrenals are unremarkable. The right kidney again demonstrates a 7 mm nonobstructive calculus in the upper pole collecting system. The left kidney demonstrates a 2 mm upper pole collecting system calculus. Both of these were evident previously. The right kidney demonstrates an interpolar region subcentimeter low-attenuation lesion which is too small to characterize. Left kidney demonstrates 2 tiny similar lesions. No evidence of ureteral calculus, hydronephrosis, or hydroureter. Multiple calculi are seen layering dependently in the bladder. These appear larger and/or more numerous than on the previous study. The prostate is somewhat prominent, contains calcifications. The included lung bases demonstrate considerable lower lobe atelectatic change and possibly some consolidation. This is less extensive than seen previously, however. Granulomatous calcification is seen at the left lung base. The bones demonstrate degenerative spondylosis changes. There are bilateral L5 pars defects and resultant grade 1 spondylolisthesis of L5 on S1. These findings are unchanged. Slight decubitus changes are seen in the retro-sacral subcutaneous soft tissue, manifested by slight skin thickening and thickening of the subcutaneous fat. No pearl ulceration or bony abnormalities demonstrated. Impression: Gaseous distention of the transverse colon and sigmoid. No evident obstructive lesion related to these. Distention is slightly decreased from the previous study. Suspect functional in nature, baseline for this patient Gastric distention, uncertain significance as no downstream gastric obstruction is evident Previously demonstrated rectal wall foreign body is no longer evident Bilateral basilar pulmonary atelectasis and/or consolidation Gastrostomy, position satisfactory and -- unchanged . Cholelithiasis, also previously described Nonobstructive bilateral intrarenal calculi Multiple bladder calculi, larger and/or more numerous than on the previous exam Minimal retrosacral decubitus changes Subcentimeter low-attenuation left renal lesions, too small to characterize, most likely small benign simple cortical cysts. No further followup necessary Other findings as noted, including small sliding type hiatal hernia, tiny fat-containing the level hernia, left hepatic lobe granulomatous calcification, prostatic calcifications, bilateral L5 spondylolysis and associated spondylolisthesis The CT scanner at [facility] is accredited by the [employer] [place] and the scans are performed using protocols designed to limit radiation exposure to as low as reasonably achievable to attain images of sufficient resolution adequate for diagnostic evaluation.
--- NOTE | 2017-01-21 16:59 | History and Physical ---
History of Present Illness General Date patient seen: Jan 21, 2017 Reason for Hospitalization: Acute Gastrointestinal Bleed Present Illness HPI Patient is a 62 yo gentleman with pmhx respiratory failure status post tracheostomy and chronic ventilatory dependence, HTN, dyslipidemia, half-way resident who presents to [facility] after the patients nurses reported the presence of copious amounts of blood per stool. The patient is being admitted to the hospital and a full gastroenterological examination and specialist evaluation is pending. Allergies: Coded Allergies: OXYTETRACYCLINE (Unverified Allergy, Unknown, 09/05/13) PENICILLINS (Unverified Allergy, Unknown, 09/05/13) Uncoded Allergies: PLASTIC TAPE (Allergy, Mild, ITCHINESS, 08/08/15) MEDICAL TAPE (Allergy, Unknown, 12/10/16) Medication History Scheduled Acetaminophen (Tylenol), 650 MG GT DAILY, (Reported) Acidophilus/Bulgaricus (Lactinex Chewable Tablet), 1 EACH GT TID, (Reported) Albuterol Sulfate* (Albuterol Sulfate Hhn*), 3 ML INH Q6H, (Reported) Amantadine Hcl* (Amantadine*), 100 MG ORAL DAILY, (Reported) Amantadine Hcl* (Amantadine*), 100 MG GT DAILY, (Reported) Ascorbic Acid* (Vitamin C*), 500 MG ORAL DAILY, (Reported) Ascorbic Acid* (Vitamin C*), 500 MG GT DAILY, (Reported) Aspirin* (Aspir 81*), 81 MG ORAL DAILY, (Reported) Aspirin* (Aspir 81*), 81 MG ORAL DAILY, (Reported) Atorvastatin Calcium* (Atorvastatin Calcium*), 10 MG GT BEDTIME, (Reported) Aztreonam (Azactam), 1 GM IJ EVERY 8 HOURS Bisacodyl* (Dulcolax*), 10 MG ORAL DAILY, (Reported) Bisacodyl* (Dulcolax*), 10 MG RECTAL ONCE, (Reported) Chlorhexidine Gluconate (Chlorhexidine Gluconate), 15 ML ORAL TWICE A DAY, ( Reported) Cholecalciferol (Vitamin D3)* (Vitamin D*), 5,000 UNIT GT DAILY, (Reported) Cran/Vitc/Mannose/Inulin/Brom (Uti-Stat Liquid), 30 ML GT BID, (Reported) Cran/Vitc/Mannose/Inulin/Brom (Uti-Stat Liquid), 30 ML GT TWICE A DAY, (Reported ) Dextran 70/Hypromellose (Artificial Tears Eye Drops), 1 DROP BOTH EYES BID, ( Reported) Docusate Sodium* (Docusate Sodium*), 100 MG GT TWICE A DAY, (Reported) Docusate Sodium* (Colace*), 100 MG GT TWICE A DAY, (Reported) Docusate Sodium* (Docusate Sodium*), 100 MG GT DAILY, (Reported) Enoxaparin* (Lovenox*), 40 MG SUBQ DAILY, (Reported) Famotidine (Famotidine), 20 MG GT DAILY, (Reported) Fluconazole* (Diflucan*), 200 MG ORAL DAILY@1800 Folic Acid* (Folic Acid*), 1 MG GT DAILY, (Reported) Heparin Sod (Porcine) (Heparin Sodium*), 5,000 UNITS SUBQ EVERY 12 HOURS, ( Reported) Ipratropium [place] (Atrovent Hfa), 0.5 MG HHN Q6HR, (Reported) Linezolid* (Zyvox*), 600 MG ORAL Q12HR Magnesium Hydroxide* (Milk Of Magnesia*), 30 ML ORAL DAILY, (Reported) Midodrine (Midodrine HCl), 10 MG GT Q8HR Multivitamin Liquid* (Multi-Delyn*), 5 ML GT DAILY, (Reported) Omeprazole (Omeprazole), 20 MG GT DAILY, (Reported) Polyethylene Glycol 3350* (Miralax*), 17 GM GT DAILY, (Reported) Potassium Chloride (Potassium Chloride), 40 MEQ GT DAILY, (Reported) Simvastatin (Zocor), 40 MG GT BEDTIME, (Reported) Simvastatin (Zocor), 40 MG ORAL BEDTIME, (Reported) Thiamine Hcl* (Vitamin B-1*), 100 MG GT DAILY, (Reported) Warfarin Sod* (Coumadin*), 5 MG GT DAILY, (Reported) Zinc Sulfate (Zinc Sulfate*), 220 MG GT DAILY, (Reported) Scheduled PRN Acetaminophen (Acetaminophen), 650 MG ORAL Q4HR PRN for Prn Headache/Temp > 101, (Reported) Acetaminophen (Tylenol), 325 MG GT Q6H PRN for For Pain, (Reported) Acetaminophen* (Tylenol Extra Strength*), 650 MG GT Q6H PRN for Mild Pain/Temp > 100.5, (Reported) Albuterol Sulfate* (Albuterol Sulfate Hhn*), 3 ML INH Q3HR PRN for Shortness of Breath, (Reported) Hydrocodone Bit/Acetaminophen 10-325* ([place] 10-325*), 1 TAB GT Q12HR PRN for For Pain, (Reported) Hydrocodone/Acetaminophen (Hydrocodon-Acetaminophn 10-325), 1 TAB ORAL EVERY 12 HOURS PRN for For Pain, (Reported) Lorazepam* (Lorazepam*), 0.5 MG GT Q6HR PRN for For Anxiety, (Reported) Magnesium Hydroxide* (Milk Of Magnesia*), 30 ML GT DAILY PRN for Constipation, ( Reported) Ondansetron* (Zofran*), 4 MG ORAL Q6H PRN for Nausea & Vomiting, (Reported) Tramadol Hcl* (Ultram*), 50 MG GT Q12HR PRN for For Pain, (Reported) Miscellaneous Medications Al Hydroxide/mg Hydroxide (Mag-Al Liquid), 30 ML GT, (Reported) Insulin Lispro (Humalog), 0 SUBQ, (Reported) Discontinued Medications Midodrine* (Proamatine*), 10 MG GT Q8HR, (Reported) Discontinued Reason: Medication dose changed Patient History Healthcare decision maker Resuscitation status Advanced Directive on File Past Medical/Surgical History Past Medical/Surgical History: (1) Collapse of right lung (2) Free intraperitoneal air (3) Hematuria (4) Fever (5) Sepsis (6) Hiatal hernia (7) Cholelithiasis (8) Pleural effusion (9) Pneumonia (10) Hematuria (11) Intractable abdominal pain (12) Sepsis (13) Hematuria (14) Bowel obstruction (15) Acute and chronic respiratory failure (16) Alkaline phosphatase elevation (17) Elevated LFTs (18) Malfunction of percutaneous endoscopic gastrostomy (PEG) tube (19) Hydronephrosis (20) UTI (urinary tract infection) (21) Obstructive uropathy (22) Pneumonia (23) Gram-negative bacteremia (24) Sepsis (25) Septic shock (26) Severe sepsis (27) Malfunction of gastrostomy tube (28) Hemoptysis (29) Respiratory failure, acute and chronic (30) Abdominal distension (31) Hypokalemia (32) Chronic respiratory failure (33) Feeding by G-tube (34) GI bleed (35) Diarrhea (36) Gastrointestinal hemorrhage (37) Vomiting (38) Fever (39) Fungemia (40) Pneumonia (41) Pneumonia (42) Pleural effusion (43) History of CVA (cerebrovascular accident) (44) Sepsis (45) Chronic respiratory failure Review of Systems Constitutional: Reports: malaise, weakness Gastrointestinal: Reports: melena Physical Exam General Appearance: moderate distress Lines, tubes and drains: peripheral, trach HEENT: normocephalic, atraumatic, PERRL, status post trach Neck: non-tender, normal alignment, supple Respiratory/Chest: chest wall non-tender, accessory muscle use, rhonchi - bilaterally Breasts: no masses Cardiovascular/Chest: normal peripheral pulses, normal rate, regular rhythm, no JVD Abdomen: normal bowel sounds, non tender, soft, no organomegaly, feeding tube Genitourinary/Rectal: normal genital exam, normal rectal exam Extremities: no calf tenderness, normal capillary refill, trace edema Skin Exam: normal pigmentation, warm/dry Neurologic: unresponsiveness Musculoskeletal: atrophy Last 24 Hour Vital Signs Date Time Temp Pulse Resp B/P (MAP) Pulse Ox O2 Delivery O2 Flow Rate FiO2 01/21/17 14:51 101 18 40 01/21/17 14:44 98.0 108 24 118/91 100 Mechanical Ventilator 40 01/21/17 13:10 97.6 95 15 132/97 100 Mechanical Ventilator 40 01/21/17 12:18 104 15 40 01/21/17 12:00 89 15 134/93 100 Mechanical Ventilator 40 01/21/17 10:54 103 12 Mechanical Ventilator 01/21/17 10:49 104 12 40 01/21/17 10:41 98.5 105 14 119/89 100 Mechanical Ventilator 40 01/21/17 10:41 40 01/21/17 10:31 97.7 114 12 116/82 98 Mechanical Ventilator 40 Laboratory Tests Test 01/21/17 12:05 01/21/17 12:30 Urine Color Yellow Urine Appearance Slightly cloudy Urine pH 6 (4.5-8.0) Urine Specific [place] 1.020 (1.005-1.035) Urine Protein 1+ (NEGATIVE) H Urine Glucose (UA) Negative (NEGATIVE) Urine Ketones Negative (NEGATIVE) Urine Occult Blood 4+ (NEGATIVE) H Urine Nitrite Positive (NEGATIVE) H Urine Bilirubin Negative (NEGATIVE) Urine Urobilinogen Normal MG/DL (0.0-1.0) Urine Leukocyte Esterase 2+ (NEGATIVE) H Urine RBC 0-2 /HPF (0 - 0) H Urine WBC 2-4 /HPF (0 - 0) Urine Squamous Epithelial Cells Occasional /LPF Urine Bacteria Moderate /HPF (NONE) H White Blood Count 13.4 K/UL (4.8-10.8) H Red Blood Count 5.10 M/UL (4.70-6.10) Hemoglobin 15.6 G/DL (14.2-18.0) Hematocrit 46.6 % (42.0-52.0) Mean Corpuscular Volume 91 FL (80-99) Mean Corpuscular Hemoglobin 30.7 PG (27.0-31.0) Mean Corpuscular Hemoglobin Concent 33.5 G/DL (32.0-36.0) Red Cell Distribution Width 12.9 % (11.6-14.8) Platelet Count 265 K/UL (150-450) Mean Platelet Volume 11.6 FL (6.5-10.1) H Neutrophils (%) (Auto) 80.0 % (45.0-75.0) H Lymphocytes (%) (Auto) 12.6 % (20.0-45.0) L Monocytes (%) (Auto) 5.5 % (1.0-10.0) Eosinophils (%) (Auto) 1.3 % (0.0-3.0) Basophils (%) (Auto) 0.7 % (0.0-2.0) Prothrombin Time 20.7 SEC (9.30-11.50) H Prothromb Time International Ratio 2.0 (0.9-1.1) H Activated Partial Thromboplast Time 41 SEC (23-33) H Sodium Level 142 MMOL/L (136-145) Potassium Level 4.1 MMOL/L (3.5-5.1) Chloride Level 106 MMOL/L (98-107) Carbon Dioxide Level 26 MMOL/L (21-32) Anion Gap 10 mmol/L (5-15) Blood Urea Nitrogen 21 mg/dL (7-18) H Creatinine 0.7 MG/DL (0.55-1.30) Estimat Glomerular Filtration Rate > 60 mL/min (>60) Glucose Level 124 MG/DL (74-106) H Lactic Acid Level 1.30 mmol/L (0.66-2.22) Calcium Level 10.0 MG/DL (8.5-10.1) Iron Level 86 ug/dL (50-175) Total Iron Binding Capacity 240 ug/dL (250-450) L Percent Iron Saturation 36 % (15-50) Unsaturated Iron Binding 154 ug/dL (112-346) Total Bilirubin 0.7 MG/DL (0.2-1.0) Aspartate Amino Transf (AST/SGOT) 73 U/L (15-37) H Alanine Aminotransferase (ALT/SGPT) 90 U/L (12-78) H Alkaline Phosphatase 711 U/L (46-116) H Total Creatine Kinase 51 U/L (26-308) Creatine Kinase MB 1.1 NG/ML (0.0-3.6) Creatine Kinase MB Relative Index 2.1 Troponin I 0.000 ng/mL (0.000-0.056) Pro-B-Type Natriuretic Peptide 239 pg/mL (0-125) H Total Protein 8.6 G/DL (6.4-8.2) H Albumin 3.0 G/DL (3.4-5.0) L Globulin 5.6 g/dL Albumin/Globulin Ratio 0.5 (1.0-2.7) L Lipase 334 U/L (73-393) Height (Feet): 5 Height (Inches): 6.00 Weight (Pounds): 160 Medications Current Medications Medications (Trade) Dose Ordered Sig/Sima Route PRN Reason Start Time Stop Time Status Last Admin Dose Admin Acetaminophen (Tylenol) 650 mg Q4H PRN ORAL FEVER 01/21/17 12:45 02/20/17 12:44 Albuterol/ Ipratropium (Albuterol/ Ipratropium) 3 ml EVERY 4 HOURS PRN HHN Shortness of Breath 01/21/17 12:45 01/26/17 12:44 Dextrose (Dextrose 50%) STAT PRN IV Hypoglycemia 01/21/17 12:45 02/20/17 12:44 Lorazepam (Ativan 2mg/ml 1ml) 2 mg EVERY 2 HOURS PRN IV For Anxiety 01/21/17 12:45 01/28/17 12:44 Morphine Sulfate (Morphine Sulfate) 4 mg EVERY 4 HOURS PRN IVP Severe Pain (Pain Scale 7-10) 01/21/17 12:45 01/28/17 12:44 Ondansetron HCl (Zofran) 4 mg Q6H PRN IVP Nausea & Vomiting 01/21/17 12:45 02/20/17 12:44 Polyethylene Glycol (Miralax) 17 gm DAILYPRN PRN ORAL Constipation 01/21/17 12:45 02/20/17 12:44 Sodium Chloride 1,000 ml @ 75 mls/hr [id number] IV 01/21/17 15:00 02/20/17 14:59 Vancomycin HCl 1 gm/Dextrose 275 ml @ 183.3 mls/ hr Q12H IVPB 01/22/17 05:00 01/27/17 04:59 Assessment/Plan Status: stable, progressing Assessment/Plan Acute melena Acute GI bleed Sepsis Chronic respiratory failure Feeding by G-tube [facility] resident Tracheostomy in place Plan Monitor respiratory rate, adjust FIO2, CXR F/U I&O, keep IV fluid, check electrolytes Check cultures, continue antibiotics Hold feedings, abdominal imaging Monitor blood sugar, continue sliding scale insulin Monitor H/H, transfuse if hgb<8.5 PRN Ativan, PRN Morphine, keep patient comfortable PRN ativan Admit to [place] [facility] Jan 21, 2017 16:59
[2017-01-22] VITALS: BP 123/87
[2017-01-22 04:00] VITALS: BP 98/71
[2017-01-22] MEDS: Vancomycin 1 GM in D5W 275 ML IVPB SCH ×2 (04:39→16:26)
[2017-01-22 05:02] LABS: BASOPHILS % (AUTO) 1.3 % (0.0-2.0); EOSINOPHILS % (AUTO) 3.2 % (0.0-3.0); HEMATOCRIT 37.6 % (42.0-52.0); HEMOGLOBIN 12.8 G/DL (14.2-18.0); LYMPHOCYTES % (AUTO) 19.6 % (20.0-45.0); MEAN CORPUSCULAR VOLUME 90 FL (80-99); MONOCYTES % (AUTO) 10.1 % (1.0-10.0); NEUTROPHILS % (AUTO) 65.8 % (45.0-75.0); PLATELET COUNT 246 K/UL (150-450); RED BLOOD COUNT 4.17 M/UL (4.70-6.10); RED CELL DISTRIBUTION WIDTH 12.9 % (11.6-14.8); WHITE BLOOD COUNT 8.8 K/UL (4.8-10.8)
[2017-01-22 05:14] LABS: ALBUMIN 2.8 G/DL (3.4-5.0); ANION GAP 7 mmol/L (5-15); BLOOD UREA NITROGEN 21 mg/dL (7-18); CALCIUM 9.3 MG/DL (8.5-10.1); CARBON DIOXIDE 26 MMOL/L (21-32); CHLORIDE 102 MMOL/L (98-107); CREATININE 0.7 MG/DL (0.55-1.30); PHOSPHORUS 2.9 MG/DL (2.5-4.9); POTASSIUM 3.5 MMOL/L (3.5-5.1); SODIUM 135 MMOL/L (136-145)
[2017-01-22] MEDS ORDERED: Heparin 2000 units/Ns 1000ml INJ ONE (07:30)
[2017-01-22] MEDS ORDERED: Lidocaine 1% Plain 30 ml INJ ONE (07:30)
[2017-01-22 08:00] VITALS: BP 130/89
--- NOTE | 2017-01-22 10:48 | GI Initial Consult Note ---
History of Present Illness General Date patient seen: Jan 22, 2017 Time patient seen: 10:28 Reason for Hospitalization: Gastrointestinal Bleed Referring physician: ALBANIA MARTEL Reason for Consultation: UGIB Present Illness HPI 61-year-old male coming from the skilled nursing, history of respiratory failure, ventilator dependent, tracheostomy, diabetes, COPD, PEG tube, bedbound, nonverbal, full code, presenting with coffee-ground emesis. Nursing stated that he had a few episodes of coffee-ground emesis, blood pressure was normal. Patient noted to be on Coumadin for history of DVTs. Patient last admitted and discharged in March for coffee-ground emesis, at that time patient was noted to have ileus. Per notes, there was a possibility of sigmoid volvulus, however imaging was reviewed by gastroenterology and noted that it is just ileus, patient had a rectal tube placed, and slowly improved At that admission there is no endoscopy or colonoscopy performed. GI consulted for GI bleed. HPI as noted above. ROS limited, patient seen on floor, awake alert NAD currently trach to vent with GT present, c/d/i. He presents today with reports of coffee ground emesis. Note patient is on Coumadin for hx of DVT. Labs show INR elevation, mild anemia, transaminitis with elevated alkaline phos and hypoalbuminemia. Hx of EGD/PEG [address] AP shows gaseous distention of the transverse colon and sigmoid. No evident obstructive lesion related to these. Distention is slightly decreased from the previous study. Suspect functional in nature, baseline for this patient. Gastric distention, uncertain significance as no downstream gastric obstruction is evident. Endoscopy Procedure Note Indication for Procedure: dysphagia Procedures Performed: EGD, PEG LISA OCONNELL- Apr 26, 2014 10:28 Home Meds Active Scripts Aztreonam (AZACTAM) 1 Gm Vial, 1 GM IJ EVERY 8 HOURS for 3 Days, VIAL Prov:ALBANIA CRAMER 10/10/16 Reported Medications Warfarin Sod* (COUMADIN*) 5 Mg Tablet, 5 MG GT DAILY, TAB 01/21/17 Docusate Sodium* (DOCUSATE SODIUM*) 100 Mg Capsule, 100 MG GT DAILY, CAP 01/21/17 Atorvastatin Calcium* (ATORVASTATIN CALCIUM*) 20 Mg Tablet, 10 MG GT BEDTIME, TAB 01/21/17 Amantadine Hcl* (AMANTADINE*) 100 Mg Tablet, 100 MG GT DAILY, TAB 01/21/17 Ascorbic Acid* (VITAMIN C*) 500 Mg Tablet, 500 MG GT DAILY, #30 TAB 0 Refills 10/05/16 Cran/Vitc/Mannose/Inulin/Brom (UTI-STAT LIQUID) 3,875 Mg/30 Ml Liquid, 30 ML GT TWICE A DAY, ML 10/05/16 Heparin Sod (Porcine) (HEPARIN SODIUM*) 5 000/1 Ml Vial, 5000 UNITS SUBQ EVERY 12 HOURS, VIAL 10/05/16 Ondansetron* (ZOFRAN*) 4 Mg Tablet, 4 MG ORAL Q6H Y for Nausea & Vomiting, TAB 07/30/16 Simvastatin (ZOCOR) 40 Mg Tablet, 40 MG ORAL BEDTIME, TAB 07/30/16 Potassium Chloride (Potassium Chloride) 20 Meq/15 Ml Liquid, 40 MEQ GT DAILY, ML 07/30/16 Lorazepam* (LORAZEPAM*) 2 Mg Tablet, 0.5 MG GT Q6HR Y for For Anxiety, TAB 07/30/16 Aspirin* (ASPIR 81*) 81 Mg Tablet.dr, 81 MG ORAL DAILY, TAB 07/30/16 Midodrine* (PROAMATINE*) 10 Mg Tablet, 10 MG GT Q8HR, TAB 10/27/15 Enoxaparin* (LOVENOX*) 40 Mg/0.4 Ml Inj, 40 MG SUBQ DAILY 10/27/15 Famotidine (FAMOTIDINE) 20 Mg Tablet, 20 MG GT DAILY, #30 TAB 0 Refills 10/27/15 Aspirin* (ASPIR 81*) 81 Mg Tablet.dr, 81 MG ORAL DAILY, TAB 10/27/15 Acetaminophen* (TYLENOL EXTRA STRENGTH*) 500 Mg Tablet, 650 MG GT Q6H Y for Mild Pain/Temp > 100.5, TAB 0 Refills 09/06/15 Hydrocodone Bit/Acetaminophen 10-325* (NORCO 10-325*) 1 Each Tablet, 1 TAB GT Q12HR Y for For Pain, #10 TAB 0 Refills PRN PAIN 09/06/15 Magnesium Hydroxide* (MILK OF MAGNESIA*) 400 Mg/5 Ml Oral.susp, 30 ML GT DAILY Y for Constipation, ML 09/06/15 Bisacodyl* (DULCOLAX*) 5 Mg Tablet.dr, 10 MG RECTAL ONCE, #4 TAB 0 Refills 09/06/15 Docusate Sodium* (COLACE*) 100 Mg Capsule, 100 MG GT TWICE A DAY, CAP 09/06/15 Acetaminophen (Tylenol) 325 Mg Tab, 325 MG GT Q6H Y for For Pain, #30 TAB 0 Refills 08/07/15 Hydrocodone/Acetaminophen (Hydrocodon-Acetaminophn 10-325) 1 Ea Tab, 1 TAB ORAL EVERY 12 HOURS Y for For Pain, #30 TAB 0 Refills 08/07/15 Al Hydroxide/mg Hydroxide (Mag-Al Liquid) 30 Ml Susp, 30 ML GT 08/07/15 Multivitamin Liquid* (MULTI-DELYN*) 237 Ml Liquid, 5 ML GT DAILY, ML 08/07/15 Magnesium Hydroxide* (MILK OF MAGNESIA*) 400 Mg/5 Ml Oral.susp, 30 ML ORAL DAILY , ML 08/07/15 Bisacodyl* (DULCOLAX*) 5 Mg Tablet.dr, 10 MG ORAL DAILY, #10 TAB 0 Refills 08/07/15 Chlorhexidine Gluconate (Chlorhexidine Gluconate) 16 Oz Soln, 15 ML ORAL TWICE A DAY, ML 08/07/15 Ipratropium [place] (ATROVENT HFA) 12.9 Gm Hfa.aer.ad, 0.5 MG HHN Q6HR 11/06/14 Insulin Lispro (HUMALOG) 100 Unit/1 Ml Cartridge, 0 SUBQ, #1 UNITS 0 Refills 08/25/14 Ascorbic Acid* (VITAMIN C*) 500 Mg Tablet, 500 MG ORAL DAILY, #30 TAB 0 Refills 08/25/14 Cholecalciferol (Vitamin D3)* (VITAMIN D*) 1,000 Unit Tablet, 5000 UNIT GT DAILY , #30 TAB 08/25/14 Cran/Vitc/Mannose/Inulin/Brom (UTI-STAT LIQUID) 3,875 Mg/30 Ml Liquid, 30 ML GT BID, ML 08/25/14 Acetaminophen (Acetaminophen) 650 Mg/20.3 Ml Soln, 650 MG ORAL Q4HR Y for Prn Headache/Temp > 101, ML 0 Refills 08/25/14 Acetaminophen (Tylenol) 325 Mg Tab, 650 MG GT DAILY, #30 TAB 0 Refills 08/25/14 Polyethylene Glycol 3350* (MIRALAX*) 17 Gm Powd.pack, 17 GM GT DAILY, PACKET 08/25/14 Acidophilus/Bulgaricus (LACTINEX CHEWABLE TABLET) 1 Each Tab.chew, 1 EACH GT TID , TAB 08/25/14 Docusate Sodium* (DOCUSATE SODIUM*) 250 Mg Capsule, 100 MG GT TWICE A DAY, CAP 08/25/14 Dextran 70/Hypromellose (ARTIFICIAL TEARS EYE DROPS) 15 Ml Drops, 1 DROP BOTH EYES BID, ML 08/25/14 Amantadine Hcl* (AMANTADINE*) 100 Mg Tablet, 100 MG ORAL DAILY, TAB 08/25/14 Albuterol Sulfate* (ALBUTEROL SULFATE HHN*) 2.5 Mg/3 Ml Vial.neb, 3 ML INH Q3HR Y for Shortness of Breath, EA 08/25/14 Albuterol Sulfate* (ALBUTEROL SULFATE HHN*) 2.5 Mg/3 Ml Vial.neb, 3 ML INH Q6H for Shortness of Breath, #30 EA 0 Refills 08/25/14 Tramadol Hcl* (ULTRAM*) 50 Mg Tablet, 50 MG GT Q12HR Y for For Pain, #30 TAB 0 Refills 04/21/14 Simvastatin (ZOCOR) 40 Mg Tablet, 40 MG GT BEDTIME, TAB 04/21/14 Omeprazole (OMEPRAZOLE) 20 Mg Tablet.dr, 20 MG GT DAILY, TAB 04/21/14 Folic Acid* (FOLIC ACID*) 1 Mg Tablet, 1 MG GT DAILY, TAB 09/05/13 Thiamine Hcl* (VITAMIN B-1*) 100 Mg Tablet, 100 MG GT DAILY, TAB 0 Refills 09/05/13 Zinc Sulfate (ZINC SULFATE*) 220 Mg Capsule, 220 MG GT DAILY, CAP 0 Refills 09/05/13 Med list reviewed/reconciled: Yes Allergies: Coded Allergies: OXYTETRACYCLINE (Unverified Allergy, Unknown, 09/05/13) PENICILLINS (Unverified Allergy, Unknown, 09/05/13) Uncoded Allergies: PLASTIC TAPE (Allergy, Mild, ITCHINESS, 08/08/15) MEDICAL TAPE (Allergy, Unknown, 12/10/16) Patient History Limited by: medical condition History Provided By: Medical Record PMH Narrative Past Medical History: see triage record Past Surgical History: unable to obtain Pertinent Family History: unable to obtain Reviewed Nursing Documentation: PMH: Agreed, PSxH: Agreed Nursing Documentation-PMH Past Medical History: No History, Except For Hx Cardiac Problems: Yes Hx Hypertension: Yes Hx COPD: Yes Hx Diabetes: Yes Hx Cancer: No Hx Gastrointestinal Problems: Yes Hx Dialysis: No - ESRD Hx Neurological Problems: Yes - anoxic brain Hx Cerebrovascular Accident: Yes Hx Transient Ischemic Attacks: Yes Hx Dementia: Yes Hx Parkinson's Disease: Yes Hx Memory Loss: Yes Hx Concentration Difficulty: Yes Hx Speech Problem: Yes Hx Dysphasia: Yes Social History: Denies: smoking, alcohol use, drug use, other Review of Systems All Other Systems: limited Physical Exam Vital Signs Date Time Temp Pulse Resp B/P (MAP) Pulse Ox O2 Delivery O2 Flow Rate FiO2 01/21/17 10:31 97.7 114 12 116/82 98 Mechanical Ventilator 40 Sp02 EP Interpretation: reviewed Labs Laboratory Tests Test 01/21/17 12:05 01/21/17 12:30 01/22/17 03:11 01/22/17 08:10 Urine Color Yellow Urine Appearance Slightly cloudy Urine pH 6 (4.5-8.0) Urine Specific [place] 1.020 (1.005-1.035) Urine Protein 1+ (NEGATIVE) H Urine Glucose (UA) Negative (NEGATIVE) Urine Ketones Negative (NEGATIVE) Urine Occult Blood 4+ (NEGATIVE) H Urine Nitrite Positive (NEGATIVE) H Urine Bilirubin Negative (NEGATIVE) Urine Urobilinogen Normal MG/DL (0.0-1.0) Urine Leukocyte Esterase 2+ (NEGATIVE) H Urine RBC 0-2 /HPF (0 - 0) H Urine WBC 2-4 /HPF (0 - 0) Urine Squamous Epithelial Cells Occasional /LPF Urine Bacteria Moderate /HPF (NONE) H White Blood Count 13.4 K/UL (4.8-10.8) H 8.8 K/UL (4.8-10.8) Red Blood Count 5.10 M/UL (4.70-6.10) 4.17 M/UL (4.70-6.10) L Hemoglobin 15.6 G/DL (14.2-18.0) 12.8 G/DL (14.2-18.0) L Hematocrit 46.6 % (42.0-52.0) 37.6 % (42.0-52.0) L Mean Corpuscular Volume 91 FL (80-99) 90 FL (80-99) Mean Corpuscular Hemoglobin 30.7 PG (27.0-31.0) 30.7 PG (27.0-31.0) Mean Corpuscular Hemoglobin Concent 33.5 G/DL (32.0-36.0) 34.0 G/DL (32.0-36.0) Red Cell Distribution Width 12.9 % (11.6-14.8) 12.9 % (11.6-14.8) Platelet Count 265 K/UL (150-450) 246 K/UL (150-450) Mean Platelet Volume 11.6 FL (6.5-10.1) H 11.3 FL (6.5-10.1) H Neutrophils (%) (Auto) 80.0 % (45.0-75.0) H 65.8 % (45.0-75.0) Lymphocytes (%) (Auto) 12.6 % (20.0-45.0) L 19.6 % (20.0-45.0) L Monocytes (%) (Auto) 5.5 % (1.0-10.0) 10.1 % (1.0-10.0) H Eosinophils (%) (Auto) 1.3 % (0.0-3.0) 3.2 % (0.0-3.0) H Basophils (%) (Auto) 0.7 % (0.0-2.0) 1.3 % (0.0-2.0) Prothrombin Time 20.7 SEC (9.30-11.50) H Prothromb Time International Ratio 2.0 (0.9-1.1) H Activated Partial Thromboplast Time 41 SEC (23-33) H Sodium Level 142 MMOL/L (136-145) 135 MMOL/L (136-145) L Potassium Level 4.1 MMOL/L (3.5-5.1) 3.5 MMOL/L (3.5-5.1) Chloride Level 106 MMOL/L (98-107) 102 MMOL/L (98-107) Carbon Dioxide Level 26 MMOL/L (21-32) 26 MMOL/L (21-32) Anion Gap 10 mmol/L (5-15) 7 mmol/L (5-15) Blood Urea Nitrogen 21 mg/dL (7-18) H 21 mg/dL (7-18) H Creatinine 0.7 MG/DL (0.55-1.30) 0.7 MG/DL (0.55-1.30) Estimat Glomerular Filtration Rate > 60 mL/min (>60) > 60 mL/min (>60) Glucose Level 124 MG/DL (74-106) H 113 MG/DL (74-106) H Lactic Acid Level 1.30 mmol/L (0.66-2.22) Calcium Level 10.0 MG/DL (8.5-10.1) 9.3 MG/DL (8.5-10.1) Iron Level 86 ug/dL (50-175) Total Iron Binding Capacity 240 ug/dL (250-450) L Percent Iron Saturation 36 % (15-50) Unsaturated Iron Binding 154 ug/dL (112-346) Total Bilirubin 0.7 MG/DL (0.2-1.0) Aspartate Amino Transf (AST/SGOT) 73 U/L (15-37) H Alanine Aminotransferase (ALT/SGPT) 90 U/L (12-78) H Alkaline Phosphatase 711 U/L (46-116) H Total Creatine Kinase 51 U/L (26-308) Creatine Kinase MB 1.1 NG/ML (0.0-3.6) Creatine Kinase MB Relative Index 2.1 Troponin I 0.000 ng/mL (0.000-0.056) Pro-B-Type Natriuretic Peptide 239 pg/mL (0-125) H Total Protein 8.6 G/DL (6.4-8.2) H Albumin 3.0 G/DL (3.4-5.0) L 2.8 G/DL (3.4-5.0) L Globulin 5.6 g/dL Albumin/Globulin Ratio 0.5 (1.0-2.7) L Lipase 334 U/L (73-393) Phosphorus Level 2.9 MG/DL (2.5-4.9) Stool Occult Blood Pending General Appearance: no apparent distress Head: normocephalic EENT: PERRL/EOMI Neck: supple Respiratory: other - trach to vent Cardiovascular: normal rate Gastrointestinal: non tender, soft Genitourinary: no CVA tenderness Neurologic: alert Skin: normal inspection, normal color, no rash, warm/dry Lymphatic: normal inspection, no adenopathy Current Medications Current Medications Medications (Trade) Dose Ordered Sig/Sima Route PRN Reason Start Time Stop Time Status Last Admin Dose Admin Acetaminophen (Tylenol) 650 mg Q4H PRN ORAL FEVER 01/21/17 12:45 02/20/17 12:44 Albuterol/ Ipratropium (Albuterol/ Ipratropium) 3 ml EVERY 4 HOURS PRN HHN Shortness of Breath 01/21/17 12:45 01/26/17 12:44 Chlorhexidine Gluconate (Paulina-Hex 2%) 1 applic DAILY@2000 TOPIC 01/22/17 20:00 02/21/17 19:59 Dextrose (Dextrose 50%) STAT PRN IV Hypoglycemia 01/21/17 12:45 02/20/17 12:44 Lorazepam (Ativan 2mg/ml 1ml) 2 mg EVERY 2 HOURS PRN IV For Anxiety 01/21/17 12:45 01/28/17 12:44 Morphine Sulfate (Morphine Sulfate) 4 mg EVERY 4 HOURS PRN IVP Severe Pain (Pain Scale 7-10) 01/21/17 12:45 01/28/17 12:44 Ondansetron HCl (Zofran) 4 mg Q6H PRN IVP Nausea & Vomiting 01/21/17 12:45 02/20/17 12:44 Polyethylene Glycol (Miralax) 17 gm DAILYPRN PRN ORAL Constipation 01/21/17 12:45 02/20/17 12:44 Sodium Chloride 1,000 ml @ 75 mls/hr [id number] IV 01/21/17 15:00 02/20/17 14:59 01/21/17 17:55 Vancomycin HCl 1 gm/Dextrose 275 ml @ 183.3 mls/ hr Q12H IVPB 01/22/17 05:00 01/27/17 04:59 01/22/17 04:39 GI: Plan Problems: (1) History of CVA (cerebrovascular accident) (2) Tracheostomy dependence (3) Coffee ground emesis (4) Feeding by G-tube (5) Vomiting (6) GI bleed Plan CT AP reviewed >> see full report. - Gaseous distention of the transverse colon and sigmoid. No evident obstructive lesion related to these. Distention is slightly decreased from the previous study. Suspect functional in nature, baseline for this patient. - Gastric distention, uncertain significance as no downstream gastric obstruction is evident - Previously demonstrated rectal wall foreign body is no longer evident OB stool positive EGD scheduled tomorrow >> Coumadin must be held min 48 hours prior any GI procedures. - CLD, NPO @ [place] + IVFs - hold all blood thinners will consider colonic decompression > GoLytely 1L flush ppi monitor H&H, prn transfusion fu cdiff fu labs Discussed with Dr. Oconnell. Thank you for this patient referral, we will follow. Katina Garcia N.P. Jan 22, 2017 10:48
[2017-01-22 12:00] VITALS: BP 133/79
--- NOTE | 2017-01-22 14:03 | Consultation ---
Consult Note Consult Note ASSESSMENT: The patient is a 61-year-old male with multiple medical problems who has: Leukocytosis ? Etio repeat CBC :P Fever iSP Aspiration pneumonia Scx : GNR x 3 Cxray : Suspected basilar infiltrates and a small left pleural effusion CT scan : abdomen possible basilar pneumonia in bilateral lungs Positive blood culture, CoNs 03/26 : contaminant History of chronically elevated alkaline phosphatase History of recurrent ventilatory associated pneumonia due to ESBL Klebsiella, Proteus mirabilis, and Morganella History of sacral decubitus (not infected) Ventilatory-dependent respiratory failure History of trach and PEG placement History of COPD History of esophagitis Diabetes Anxiety Anemia PLAN: cont patient on Azactam, add Flagy d# 4 / 7 10/08 SP IV vancomycin d# 3 Monitor CBC repeat CBC :P Monitor BMP. Monitor cultures (sputum and blood) Monitor chest x-ray MARCELLA MA M.D. Jan 22, 2017 14:03
--- NOTE | 2017-01-22 14:09 | Consultation ---
Consult Note Consult Note ID DIC # [id number] MARCELLA MA M.D. Jan 22, 2017 14:09
--- NOTE | 2017-01-22 14:09 | Consultation ---
Consult Note Consult Note ID DIC # [id number] MARCELLA MA M.D. Jan 22, 2017 14:09
--- NOTE | 2017-01-22 14:09 | Consultation ---
Consult Note Consult Note ID DIC # [id number] MARCELLA MA M.D. Jan 22, 2017 14:09
--- NOTE | 2017-01-22 14:12 | Pulmonology Progress Note ---
Assessment/Plan Problems: (1) GI bleed (2) Sepsis (3) Chronic respiratory failure (4) Feeding by G-tube (5) [facility] resident (6) Tracheostomy in place Respiratory: monitor respiratory rate, adjust FIO2, CXR Renal: F/U I&O, keep IV fluid, check electrolytes Infectious Disease: check cultures, continue antibiotics Gastrointestinal: hold feedings, abdominal imaging Endocrine: monitor blood sugar, continue sliding scale insulin Hematologic: monitor H/H, transfuse if hgb<8.5 Neurologic: PRN Ativan, PRN Morphine, keep patient comfortable Affect: PRN ativan Notes Reviewed: carpenter rough, renal Discussed with: nurses, consultants, case investigator Subjective ROS Limited/Unobtainable: No Constitutional: Reports: no symptoms HEENT: Repors: no symptoms Allergies: Coded Allergies: OXYTETRACYCLINE (Unverified Allergy, Unknown, 09/05/13) PENICILLINS (Unverified Allergy, Unknown, 09/05/13) Uncoded Allergies: PLASTIC TAPE (Allergy, Mild, ITCHINESS, 08/08/15) MEDICAL TAPE (Allergy, Unknown, 12/10/16) Objective Last 24 Hour Vital Signs Date Time Temp Pulse Resp B/P (MAP) Pulse Ox O2 Delivery O2 Flow Rate FiO2 01/22/17 12:33 81 14 35 01/22/17 12:00 92 01/22/17 12:00 97.5 91 16 133/79 99 Mechanical Ventilator 35 01/22/17 12:00 35 01/22/17 11:31 78 14 35 01/22/17 08:33 81 14 35 01/22/17 08:00 96.8 83 16 130/89 99 Mechanical Ventilator 35 01/22/17 08:00 35 01/22/17 08:00 110 01/22/17 06:41 88 22 35 01/22/17 05:15 108 19 40 01/22/17 04:00 40 01/22/17 04:00 102 01/22/17 04:00 97.7 88 14 98/71 99 Mechanical Ventilator 40 01/22/17 03:25 102 14 40 01/22/17 01:01 92 14 40 01/22/17 00:00 40 01/22/17 00:00 97.2 88 16 123/87 100 Mechanical Ventilator 40 01/22/17 00:00 106 01/21/17 22:58 104 14 40 01/21/17 20:56 90 14 40 01/21/17 20:00 40 01/21/17 20:00 97.7 102 22 143/95 100 Mechanical Ventilator 40 01/21/17 20:00 88 01/21/17 19:06 92 20 40 01/21/17 18:00 98.2 85 19 122/70 100 Mechanical Ventilator 40 01/21/17 17:47 94 12 40 01/21/17 16:45 98.5 105 17 118/91 100 Mechanical Ventilator 40 01/21/17 16:45 105 17 118/91 100 Mechanical Ventilator 40 01/21/17 14:51 101 18 40 01/21/17 14:44 98.0 108 24 118/91 100 Mechanical Ventilator 40 Intake and Output 01/22/17 01/23/17 19:00 07:00 Intake Total 375 ml Balance 375 ml Intake IV Total 375 ml General Appearance: WD/WN HEENT: normocephalic, atraumatic Respiratory/Chest: chest wall non-tender, lungs clear Cardiovascular: normal peripheral pulses, normal rate Abdomen: normal bowel sounds, soft, non tender Extremities: no clubbing Neurologic/Psychiatric: grade tamper II-XII grossly normal, abnormal gait Microbiology Date/Time Source Procedure Growth Status 01/22/17 04:00 Sputum Gram Stain - Final Resulted 01/22/17 04:00 Sputum Sputum Culture Pending Resulted 01/21/17 12:05 Urine,Clean Catch Urine Culture - Preliminary Gram Negative Bacillus 1 Resulted Laboratory Tests 01/22/17 03:11: White Blood Count 8.8, Red Blood Count 4.17L, Hemoglobin 12.8L, Hematocrit 37.6L , Mean Corpuscular Volume 90, Mean Corpuscular Hemoglobin 30.7, Mean Corpuscular Hemoglobin Concent 34.0, Red Cell Distribution Width 12.9, Platelet Count 246, Mean Platelet Volume 11.3H, Neutrophils (%) (Auto) 65.8, Lymphocytes (%) (Auto) 19.6L, Monocytes (%) (Auto) 10.1H, Eosinophils (%) (Auto) 3.2H, Basophils (%) (Auto) 1.3, Sodium Level 135L, Potassium Level 3.5, Chloride Level 102, Carbon Dioxide Level 26, Anion Gap 7, Blood Urea Nitrogen 21H, Creatinine 0.7, Estimat Glomerular Filtration Rate > 60, Glucose Level 113H, Calcium Level 9.3, Phosphorus Level 2.9, Albumin 2.8L 01/22/17 08:10: Stool Occult Blood Positive Current Medications Medications (Trade) Dose Ordered Sig/Sima Route PRN Reason Start Time Stop Time Status Last Admin Dose Admin Acetaminophen (Tylenol) 650 mg Q4H PRN ORAL FEVER 01/21/17 12:45 02/20/17 12:44 Albuterol/ Ipratropium (Albuterol/ Ipratropium) 3 ml EVERY 4 HOURS PRN HHN Shortness of Breath 01/21/17 12:45 01/26/17 12:44 Chlorhexidine Gluconate (Paulina-Hex 2%) 1 applic DAILY@2000 TOPIC 01/22/17 20:00 02/21/17 19:59 Dextrose (Dextrose 50%) STAT PRN IV Hypoglycemia 01/21/17 12:45 02/20/17 12:44 Lorazepam (Ativan 2mg/ml 1ml) 2 mg EVERY 2 HOURS PRN IV For Anxiety 01/21/17 12:45 01/28/17 12:44 Morphine Sulfate (Morphine Sulfate) 4 mg EVERY 4 HOURS PRN IVP Severe Pain (Pain Scale 7-10) 01/21/17 12:45 01/28/17 12:44 Ondansetron HCl (Zofran) 4 mg Q6H PRN IVP Nausea & Vomiting 01/21/17 12:45 02/20/17 12:44 Polyethylene Glycol (Miralax) 17 gm DAILYPRN PRN ORAL Constipation 01/21/17 12:45 02/20/17 12:44 Sodium Chloride 1,000 ml @ 75 mls/hr [id number] IV 01/21/17 15:00 02/20/17 14:59 01/22/17 12:00 Vancomycin HCl 1 gm/Dextrose 275 ml @ 183.3 mls/ hr Q12H IVPB 01/22/17 05:00 01/27/17 04:59 01/22/17 04:39 ALBANIA CRAMER Jan 22, 2017 14:12
--- NOTE | 2017-01-22 14:12 | Pulmonology Progress Note ---
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, 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 Discussed with: nurses, consultants, protective services case worker Subjective ROS Limited/Unobtainable: No Constitutional: Reports: no symptoms HEENT: Repors: no symptoms Allergies: Coded Allergies: OXYTETRACYCLINE (Unverified Allergy, Unknown, 09/05/13) PENICILLINS (Unverified Allergy, Unknown, 09/05/13) Uncoded Allergies: PLASTIC TAPE (Allergy, Mild, ITCHINESS, 08/08/15) MEDICAL TAPE (Allergy, Unknown, 12/10/16) Objective Last 24 Hour Vital Signs Date Time Temp Pulse Resp B/P (MAP) Pulse Ox O2 Delivery O2 Flow Rate FiO2 01/22/17 12:33 81 14 35 01/22/17 12:00 92 01/22/17 12:00 97.5 91 16 133/79 99 Mechanical Ventilator 35 01/22/17 12:00 35 01/22/17 11:31 78 14 35 01/22/17 08:33 81 14 35 01/22/17 08:00 96.8 83 16 130/89 99 Mechanical Ventilator 35 01/22/17 08:00 35 01/22/17 08:00 110 01/22/17 06:41 88 22 35 01/22/17 05:15 108 19 40 01/22/17 04:00 40 01/22/17 04:00 102 01/22/17 04:00 97.7 88 14 98/71 99 Mechanical Ventilator 40 01/22/17 03:25 102 14 40 01/22/17 01:01 92 14 40 01/22/17 00:00 40 01/22/17 00:00 97.2 88 16 123/87 100 Mechanical Ventilator 40 01/22/17 00:00 106 01/21/17 22:58 104 14 40 01/21/17 20:56 90 14 40 01/21/17 20:00 40 01/21/17 20:00 97.7 102 22 143/95 100 Mechanical Ventilator 40 01/21/17 20:00 88 01/21/17 19:06 92 20 40 01/21/17 18:00 98.2 85 19 122/70 100 Mechanical Ventilator 40 01/21/17 17:47 94 12 40 01/21/17 16:45 98.5 105 17 118/91 100 Mechanical Ventilator 40 01/21/17 16:45 105 17 118/91 100 Mechanical Ventilator 40 01/21/17 14:51 101 18 40 01/21/17 14:44 98.0 108 24 118/91 100 Mechanical Ventilator 40 Intake and Output 01/22/17 01/23/17 19:00 07:00 Intake Total 375 ml Balance 375 ml Intake IV Total 375 ml General Appearance: WD/WN HEENT: normocephalic, atraumatic Respiratory/Chest: chest wall non-tender, lungs clear Cardiovascular: normal peripheral pulses, normal rate Abdomen: normal bowel sounds, soft, non tender Extremities: no clubbing 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, abnormal gait Microbiology Date/Time Source Procedure Growth Status 01/22/17 04:00 Sputum Gram Stain - Final Resulted 01/22/17 04:00 Sputum Sputum Culture Pending Resulted 01/21/17 12:05 Urine,Clean Catch Urine Culture - Preliminary Gram Negative Bacillus 1 Resulted Laboratory Tests 01/22/17 03:11: White Blood Count 8.8, Red Blood Count 4.17L, Hemoglobin 12.8L, Hematocrit 37.6L , Mean Corpuscular Volume 90, Mean Corpuscular Hemoglobin 30.7, Mean Corpuscular Hemoglobin Concent 34.0, Red Cell Distribution Width 12.9, Platelet Count 246, Mean Platelet Volume 11.3H, Neutrophils (%) (Auto) 65.8, Lymphocytes (%) (Auto) 19.6L, Monocytes (%) (Auto) 10.1H, Eosinophils (%) (Auto) 3.2H, Basophils (%) (Auto) 1.3, Sodium Level 135L, Potassium Level 3.5, Chloride Level 102, Carbon Dioxide Level 26, Anion Gap 7, Blood Urea Nitrogen 21H, Creatinine 0.7, Estimat Glomerular Filtration Rate > 60, Glucose Level 113H, Calcium Level 9.3, Phosphorus Level 2.9, Albumin 2.8L 01/22/17 08:10: Stool Occult Blood Positive Current Medications Medications (Trade) Dose Ordered Sig/Sima Route PRN Reason Start Time Stop Time Status Last Admin Dose Admin Acetaminophen (Tylenol) 650 mg Q4H PRN ORAL FEVER 01/21/17 12:45 02/20/17 12:44 Albuterol/ Ipratropium (Albuterol/ Ipratropium) 3 ml EVERY 4 HOURS PRN HHN Shortness of Breath 01/21/17 12:45 01/26/17 12:44 Chlorhexidine Gluconate (Paulina-Hex 2%) 1 applic DAILY@2000 TOPIC 01/22/17 20:00 02/21/17 19:59 Dextrose (Dextrose 50%) STAT PRN IV Hypoglycemia 01/21/17 12:45 02/20/17 12:44 Lorazepam (Ativan 2mg/ml 1ml) 2 mg EVERY 2 HOURS PRN IV For Anxiety 01/21/17 12:45 01/28/17 12:44 Morphine Sulfate (Morphine Sulfate) 4 mg EVERY 4 HOURS PRN IVP Severe Pain (Pain Scale 7-10) 01/21/17 12:45 01/28/17 12:44 Ondansetron HCl (Zofran) 4 mg Q6H PRN IVP Nausea & Vomiting 01/21/17 12:45 02/20/17 12:44 Polyethylene Glycol (Miralax) 17 gm DAILYPRN PRN ORAL Constipation 01/21/17 12:45 02/20/17 12:44 Sodium Chloride 1,000 ml @ 75 mls/hr [id number] IV 01/21/17 15:00 02/20/17 14:59 01/22/17 12:00 Vancomycin HCl 1 gm/Dextrose 275 ml @ 183.3 mls/ hr Q12H IVPB 01/22/17 05:00 01/27/17 04:59 01/22/17 04:39 ALBANIA CRAMER Jan 22, 2017 14:12
--- NOTE | 2017-01-22 14:12 | Pulmonology Progress Note ---
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, 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 Discussed with: nurses, consultants, case loader operator Subjective ROS Limited/Unobtainable: No Constitutional: Reports: no symptoms HEENT: Repors: no symptoms Allergies: Coded Allergies: OXYTETRACYCLINE (Unverified Allergy, Unknown, 09/05/13) PENICILLINS (Unverified Allergy, Unknown, 09/05/13) Uncoded Allergies: PLASTIC TAPE (Allergy, Mild, ITCHINESS, 08/08/15) MEDICAL TAPE (Allergy, Unknown, 12/10/16) Objective Last 24 Hour Vital Signs Date Time Temp Pulse Resp B/P (MAP) Pulse Ox O2 Delivery O2 Flow Rate FiO2 01/22/17 12:33 81 14 35 01/22/17 12:00 92 01/22/17 12:00 97.5 91 16 133/79 99 Mechanical Ventilator 35 01/22/17 12:00 35 01/22/17 11:31 78 14 35 01/22/17 08:33 81 14 35 01/22/17 08:00 96.8 83 16 130/89 99 Mechanical Ventilator 35 01/22/17 08:00 35 01/22/17 08:00 110 01/22/17 06:41 88 22 35 01/22/17 05:15 108 19 40 01/22/17 04:00 40 01/22/17 04:00 102 01/22/17 04:00 97.7 88 14 98/71 99 Mechanical Ventilator 40 01/22/17 03:25 102 14 40 01/22/17 01:01 92 14 40 01/22/17 00:00 40 01/22/17 00:00 97.2 88 16 123/87 100 Mechanical Ventilator 40 01/22/17 00:00 106 01/21/17 22:58 104 14 40 01/21/17 20:56 90 14 40 01/21/17 20:00 40 01/21/17 20:00 97.7 102 22 143/95 100 Mechanical Ventilator 40 01/21/17 20:00 88 01/21/17 19:06 92 20 40 01/21/17 18:00 98.2 85 19 122/70 100 Mechanical Ventilator 40 01/21/17 17:47 94 12 40 01/21/17 16:45 98.5 105 17 118/91 100 Mechanical Ventilator 40 01/21/17 16:45 105 17 118/91 100 Mechanical Ventilator 40 01/21/17 14:51 101 18 40 01/21/17 14:44 98.0 108 24 118/91 100 Mechanical Ventilator 40 Intake and Output 01/22/17 01/23/17 19:00 07:00 Intake Total 375 ml Balance 375 ml Intake IV Total 375 ml General Appearance: WD/WN HEENT: normocephalic, atraumatic Respiratory/Chest: chest wall non-tender, lungs clear Cardiovascular: normal peripheral pulses, normal rate Abdomen: normal bowel sounds, soft, non tender Extremities: no clubbing 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 normal, abnormal gait Microbiology Date/Time Source Procedure Growth Status 01/22/17 04:00 Sputum Gram Stain - Final Resulted 01/22/17 04:00 Sputum Sputum Culture Pending Resulted 01/21/17 12:05 Urine,Clean Catch Urine Culture - Preliminary Gram Negative Bacillus 1 Resulted Laboratory Tests 01/22/17 03:11: White Blood Count 8.8, Red Blood Count 4.17L, Hemoglobin 12.8L, Hematocrit 37.6L , Mean Corpuscular Volume 90, Mean Corpuscular Hemoglobin 30.7, Mean Corpuscular Hemoglobin Concent 34.0, Red Cell Distribution Width 12.9, Platelet Count 246, Mean Platelet Volume 11.3H, Neutrophils (%) (Auto) 65.8, Lymphocytes (%) (Auto) 19.6L, Monocytes (%) (Auto) 10.1H, Eosinophils (%) (Auto) 3.2H, Basophils (%) (Auto) 1.3, Sodium Level 135L, Potassium Level 3.5, Chloride Level 102, Carbon Dioxide Level 26, Anion Gap 7, Blood Urea Nitrogen 21H, Creatinine 0.7, Estimat Glomerular Filtration Rate > 60, Glucose Level 113H, Calcium Level 9.3, Phosphorus Level 2.9, Albumin 2.8L 01/22/17 08:10: Stool Occult Blood Positive Current Medications Medications (Trade) Dose Ordered Sig/Sima Route PRN Reason Start Time Stop Time Status Last Admin Dose Admin Acetaminophen (Tylenol) 650 mg Q4H PRN ORAL FEVER 01/21/17 12:45 02/20/17 12:44 Albuterol/ Ipratropium (Albuterol/ Ipratropium) 3 ml EVERY 4 HOURS PRN HHN Shortness of Breath 01/21/17 12:45 01/26/17 12:44 Chlorhexidine Gluconate (Paulina-Hex 2%) 1 applic DAILY@2000 TOPIC 01/22/17 20:00 02/21/17 19:59 Dextrose (Dextrose 50%) STAT PRN IV Hypoglycemia 01/21/17 12:45 02/20/17 12:44 Lorazepam (Ativan 2mg/ml 1ml) 2 mg EVERY 2 HOURS PRN IV For Anxiety 01/21/17 12:45 01/28/17 12:44 Morphine Sulfate (Morphine Sulfate) 4 mg EVERY 4 HOURS PRN IVP Severe Pain (Pain Scale 7-10) 01/21/17 12:45 01/28/17 12:44 Ondansetron HCl (Zofran) 4 mg Q6H PRN IVP Nausea & Vomiting 01/21/17 12:45 02/20/17 12:44 Polyethylene Glycol (Miralax) 17 gm DAILYPRN PRN ORAL Constipation 01/21/17 12:45 02/20/17 12:44 Sodium Chloride 1,000 ml @ 75 mls/hr [id number] IV 01/21/17 15:00 02/20/17 14:59 01/22/17 12:00 Vancomycin HCl 1 gm/Dextrose 275 ml @ 183.3 mls/ hr Q12H IVPB 01/22/17 05:00 01/27/17 04:59 01/22/17 04:39 ALBANIA CRAMER Jan 22, 2017 14:12
--- NOTE | 2017-01-22 15:33 | Diagnostic Imaging Report ---
Indications: Needs long-term IV access Technique: Procedure performed at bedside. Procedural timeout performed. Ultrasound confirms patent compressible right basilic vein. Total sterile technique, including sterile probe cover and sterile gel, sterile gloves, hand hygiene, hat, mask,, sterile gown, large sterile drape, and preparation with 2% chlorhexidine utilized. Local anesthesia with 1% lidocaine. Under real-time ultrasound guidance, puncture basilic vein using 21-gauge needle, passage 0.018 guidewire, exchange for 5 Chinese peel-away sheath. 5 Chinese Bard dual-lumen power PICC cut to 39 cm. It was inserted through the peel-away sheath. Peel-away sheath and guidewire removed. Catheter fixed to the skin. Both catheter ports aspirated and flushed. Patient tolerated procedure well, without immediate complication. Followup chest x-ray obtained, documents catheter tip position at the high right atrium Impression: Successful bedside placement of right arm PICC under sonographic guidance, as described above.
--- NOTE | 2017-01-22 15:33 | Diagnostic Imaging Report ---
Indications: Needs long-term IV access Technique: Procedure performed at bedside. Procedural timeout performed. Ultrasound confirms patent compressible right basilic vein. Total sterile technique, including sterile probe cover and sterile gel, sterile gloves, hand hygiene, hat, mask,, sterile gown, large sterile drape, and preparation with 2% chlorhexidine utilized. Local anesthesia with 1% lidocaine. Under real-time ultrasound guidance, puncture basilic vein using 21-gauge needle, passage 0.018 guidewire, exchange for 5 [place] peel-away sheath. 5 [place] Bard dual-lumen power PICC cut to 39 cm. It was inserted through the peel-away sheath. Peel-away sheath and guidewire removed. Catheter fixed to the skin. Both catheter ports aspirated and flushed. Patient tolerated procedure well, without immediate complication. Followup chest x-ray obtained, documents catheter tip position at the high right atrium Impression: Successful bedside placement of right arm PICC under sonographic guidance, as described above.
[2017-01-22 16:00] VITALS: BP 144/93
[2017-01-22] MEDS: Aztreonam 1gm/D5W 55ml IVPB SCH ×2 (18:12)
[2017-01-22 20:00] VITALS: BP 142/93
[2017-01-22] MEDS: Miralax 17gm pkt GT SCH (20:42)
[2017-01-22] MEDS: Dyna-Hex 2% Top Sol 2oz TOPIC SCH (20:42)
[2017-01-23] VITALS: BP 151/97
--- NOTE | 2017-01-23 00:30 | Consultation ---
DATE OF CONSULTATION: 01/22/2017 INFECTIOUS DISEASES CONSULTATION CONSULTING PHYSICIAN: Avni Castillo MD REFERRING PHYSICIAN: Sagar Rudd MD REASON FOR CONSULTATION: Evaluation of the patient for possible sepsis, pneumonia, and antibiotic management. HISTORY OF PRESENT ILLNESS: The patient is a 61-year-old male with multiple medical problems, who was admitted to this medical center due to coffee-ground emesis. The patient was found to have leukocytosis and this has improved. The patient is still on IV antibiotics for possible sepsis and urinary tract infection. Infectious Disease consultation is requested for further followup on the treatment. PAST MEDICAL HISTORY: 1. History of aspiration pneumonia. 2. History of chronically elevated alkaline phosphatase. 3. Sacral decubitus. 4. Ventilator-dependent respiratory failure. 5. History of trach and PEG placement. 6. COPD. 7. Esophagitis. 8. Diabetes. 9. Anxiety. 10. Anemia. ALLERGIES: Penicillin. FAMILY HISTORY: Noncontributory. REVIEW OF SYSTEMS: Unobtainable. PHYSICAL EXAMINATION: VITAL SIGNS: Temperature 132/79, pulse 86, respiratory rate 18, and temperature 97.5. HEENT: No pale conjunctivae. No icterus. NECK: No lymphadenopathy. CHEST: Coarse breathing sounds. HEART: S1 and S2. ABDOMEN: Soft. PEG tube in place. EXTREMITIES: Contracted. NEUROLOGIC: Nonverbal. LABORATORY AND DIAGNOSTIC DATA: White blood cells 13.4, hemoglobin 13.6, platelets 265. UA unremarkable. BUN 7 and creatinine 0.6. AST 73, ALT 90, alkaline phosphatase 711. Urine culture is growing gram-negative rods. Sputum culture is pending. CT of the abdomen, no areas of obstruction or abscess, cholelithiasis, bilateral intrarenal calculi. ASSESSMENT: The patient is a 61-year-old male with: 1. Possible sepsis. 2. Leukocytosis due to gastrointestinal bleed, acute stress, also possible urinary tract infection. 3. Chest x-ray. There is no evidence of infiltrate or pneumonia, unremarkable. 4. Rule out bacteremia. PLAN: 1. We will hold vancomycin and start the the patient on IV cefepime and then we will start the patient on Azactam. 2. Monitor CBC. 3. Monitor BMP. 4. Monitor cultures (sputum, urine, and blood). 5. Monitor chest x-ray. 6. Continue vent support. 7. Based on the patient's clinical course and labs, we will do further recommendation. Thank you, Dr. Rudd, for allowing me to participate in the care of this patient. I will follow the patient with you during this hospitalization. Avni Castillo M.D. DR: Maricarmen JOB#: [id number] CC:
[2017-01-23 04:00] VITALS: BP 134/91
[2017-01-23 06:14] LABS: BASOPHILS % (AUTO) 1.2 % (0.0-2.0); EOSINOPHILS % (AUTO) 5.6 % (0.0-3.0); HEMATOCRIT 41.2 % (42.0-52.0); HEMOGLOBIN 13.4 G/DL (14.2-18.0); LYMPHOCYTES % (AUTO) 22.3 % (20.0-45.0); MEAN CORPUSCULAR VOLUME 90 FL (80-99); MONOCYTES % (AUTO) 9.1 % (1.0-10.0); NEUTROPHILS % (AUTO) 61.9 % (45.0-75.0); PLATELET COUNT 255 K/UL (150-450); RED BLOOD COUNT 4.56 M/UL (4.70-6.10); RED CELL DISTRIBUTION WIDTH 12.8 % (11.6-14.8); WHITE BLOOD COUNT 7.9 K/UL (4.8-10.8)
[2017-01-23] MEDS: Aztreonam 1gm/D5W 55ml IVPB SCH ×6 (06:23→21:25)
[2017-01-23 06:31] LABS: INR 1.6 (0.9-1.1)
[2017-01-23] MEDS: Vancomycin 1 GM in D5W 275 ML IVPB SCH ×2 (06:59→17:35)
[2017-01-23 07:43] LABS: ALANINE AMINOTRANSFERASE 72 U/L (12-78); ALBUMIN 2.8 G/DL (3.4-5.0); ALBUMIN/GLOBULIN RATIO 0.6 (1.0-2.7); ALKALINE PHOSPHATASE 537 U/L (46-116); ANION GAP 15 mmol/L (5-15); ASPARTATE AMINO TRANSFERASE 66 U/L (15-37); BILIRUBIN,TOTAL 0.7 MG/DL (0.2-1.0); BLOOD UREA NITROGEN 12 mg/dL (7-18); CALCIUM 9.4 MG/DL (8.5-10.1); CARBON DIOXIDE 20 MMOL/L (21-32); CHLORIDE 104 MMOL/L (98-107); CREATININE 0.6 MG/DL (0.55-1.30); PHOSPHORUS 3.4 MG/DL (2.5-4.9); POTASSIUM 3.1 MMOL/L (3.5-5.1); SODIUM 139 MMOL/L (136-145)
[2017-01-23 08:00] VITALS: BP 144/91
--- NOTE | 2017-01-23 11:42 | Anethesia Preoperative Eval ---
Anesthesia Pre-op PMH/ROS General Date of Evaluation: Jan 23, 2017 Time of Evaluation: 11:37 Anesthesiologist: ely ASA Score: ASA 4 Mallampati Score Class I : Soft palate, uvula, fauces, pillars visible Class II: Soft palate, uvula, fauces visible Class III: Soft palate, base of uvula visible Class IV: Only hard plate visible Mallampati Classification: Class II Surgeon: nati Diagnosis: ugib Surgical Procedure: egd Anesthesia History: none Family History: no anesthesia problems Allergies: Coded Allergies: OXYTETRACYCLINE (Unverified Allergy, Unknown, 09/05/13) PENICILLINS (Unverified Allergy, Unknown, 09/05/13) Uncoded Allergies: PLASTIC TAPE (Allergy, Mild, ITCHINESS, 08/08/15) MEDICAL TAPE (Allergy, Unknown, 12/10/16) Medications: see eMAR Past Medical History Cardiovascular: Reports: HTN Pulmonary: Reports: COPD Gastrointestinal/Genitourinary: Reports: GERD, ESRD Neurologic/Psychiatric: Reports: dementia, CVA Hematology/Immune: Reports: anemia Anesthesia Pre-op Phys. Exam Physician Exam Last Vital Signs Date Time Temp Pulse Resp B/P (MAP) Pulse Ox O2 Delivery O2 Flow Rate FiO2 01/23/17 10:57 89 14 35 01/23/17 08:00 98.3 144/91 97 Mechanical Ventilator Constitutional: NAD Neurologic: other Respiratory: other - tracheostomy on mechanical ventilator Gastrointestinal: other - peg Airway Exam Mallampati Score: Class II MO: limited Neck: tracheostomy TMD: 2fb ROM: limited - contractures Anesthesia Pre-op A/P Labs Hematology Test 01/23/17 04:00 White Blood Count 7.9 K/UL (4.8-10.8) Red Blood Count 4.56 M/UL (4.70-6.10) L Hemoglobin 13.4 G/DL (14.2-18.0) L Hematocrit 41.2 % (42.0-52.0) L Mean Corpuscular Volume 90 FL (80-99) Mean Corpuscular Hemoglobin 29.3 PG (27.0-31.0) Mean Corpuscular Hemoglobin Concent 32.4 G/DL (32.0-36.0) Red Cell Distribution Width 12.8 % (11.6-14.8) Platelet Count 255 K/UL (150-450) Mean Platelet Volume 10.7 FL (6.5-10.1) H Neutrophils (%) (Auto) 61.9 % (45.0-75.0) Lymphocytes (%) (Auto) 22.3 % (20.0-45.0) Monocytes (%) (Auto) 9.1 % (1.0-10.0) Eosinophils (%) (Auto) 5.6 % (0.0-3.0) H Basophils (%) (Auto) 1.2 % (0.0-2.0) Coagulation Test 01/23/17 04:00 Prothrombin Time 16.6 SEC (9.30-11.50) H Prothromb Time International Ratio 1.6 (0.9-1.1) H Activated Partial Thromboplast Time 38 SEC (23-33) H Chemistry Test 01/23/17 04:00 Sodium Level 139 MMOL/L (136-145) Potassium Level 3.1 MMOL/L (3.5-5.1) L Chloride Level 104 MMOL/L (98-107) Carbon Dioxide Level 20 MMOL/L (21-32) L Anion Gap 15 mmol/L (5-15) Blood Urea Nitrogen 12 mg/dL (7-18) Creatinine 0.6 MG/DL (0.55-1.30) Estimat Glomerular Filtration Rate > 60 mL/min (>60) Glucose Level 99 MG/DL (74-106) Calcium Level 9.4 MG/DL (8.5-10.1) Phosphorus Level 3.4 MG/DL (2.5-4.9) Magnesium Level 1.9 MG/DL (1.8-2.4) Total Bilirubin 0.7 MG/DL (0.2-1.0) Aspartate Amino Transf (AST/SGOT) 66 U/L (15-37) H Alanine Aminotransferase (ALT/SGPT) 72 U/L (12-78) Alkaline Phosphatase 537 U/L (46-116) H Total Protein 7.8 G/DL (6.4-8.2) Albumin 2.8 G/DL (3.4-5.0) L Globulin 5.0 g/dL Albumin/Globulin Ratio 0.6 (1.0-2.7) L Risk Assessment & Plan Assessment: asa4 Plan: mac Status Change Before Surgery: No Pre-Antibiotics Drug: MASSIMO Escudero Jan 23, 2017 11:42
--- NOTE | 2017-01-23 11:54 | Pre-Procedure Note/Attestation ---
Pre-Procedure Note/Attestation Complete Prior to Procedure Planned Procedure: not applicable Procedure Narrative: egd Indications for Procedure Pre-Operative Diagnosis: GIB Attestation I attest that I discussed the nature of the procedure; its benefits; risks and complications; and alternatives (and the risks and benefits of such alternatives ), prior to the procedure, with the patient (or the patient's legal patient portal representative). I attest that, if there was a reasonable possibility of needing a blood transfusion, the patient (or the patient's legal patient portal representative) was given the [facility] standardized written summary, pursuant to the Rodriguez Norma Blood Safety Act ([place] Health and Safety Code # 1645, as amended). I attest that I re-evaluated the patient just prior to the surgery and that there has been no change in the patient's H&P, except as documented below: LISA OCONNELL Jan 23, 2017 11:54
--- NOTE | 2017-01-23 11:54 | Pre-Procedure Note/Attestation ---
Pre-Procedure Note/Attestation Complete Prior to Procedure Planned Procedure: not applicable Procedure Narrative: egd Indications for Procedure Pre-Operative Diagnosis: GIB Attestation I attest that I discussed the nature of the procedure; its benefits; risks and complications; and alternatives (and the risks and benefits of such alternatives ), prior to the procedure, with the patient (or the patient's legal equal opportunity representative). I attest that, if there was a reasonable possibility of needing a blood transfusion, the patient (or the patient's legal equal opportunity representative) was given the [facility] standardized written summary, pursuant to the Rodriguez Norma Blood Safety Act ([place] Health and Safety Code # 1645, as amended). I attest that I re-evaluated the patient just prior to the surgery and that there has been no change in the patient's H&P, except as documented below: LISA OCONNELL Jan 23, 2017 11:54
--- NOTE | 2017-01-23 11:54 | Pre-Procedure Note/Attestation ---
Pre-Procedure Note/Attestation Complete Prior to Procedure Planned Procedure: not applicable Procedure Narrative: egd Indications for Procedure Pre-Operative Diagnosis: GIB Attestation I attest that I discussed the nature of the procedure; its benefits; risks and complications; and alternatives (and the risks and benefits of such alternatives ), prior to the procedure, with the patient (or the patient's legal service support representative). I attest that, if there was a reasonable possibility of needing a blood transfusion, the patient (or the patient's legal service support representative) was given the [facility] standardized written summary, pursuant to the Rodriguez Norma Blood Safety Act ([place] Health and Safety Code # 1645, as amended). I attest that I re-evaluated the patient just prior to the surgery and that there has been no change in the patient's H&P, except as documented below: LISA OCONNELL Jan 23, 2017 11:54
[2017-01-23 12:00] VITALS: BP 152/96
[2017-01-23] MEDS ORDERED: Lidocaine 1% MPF 10mg/ml 5ml ONE (12:00)
[2017-01-23] MEDS ORDERED: Propofol 200mg/20ml IV ONE (12:00)
--- NOTE | 2017-01-23 12:13 | Infectious Diseases Prog Note ---
Assessment/Plan Assessment/Plan ASSESSMENT: The patient is a 61-year-old male with: UTI Providencia Possible sepsis. Leukocytosis due to gastrointestinal bleed, acute stress, also possible urinary tract infection. doubt PNA SCx: GNR ( colonizer ) Chest x-ray. There is no evidence of infiltrate or pneumonia, unremarkable. blood Cx : CoNS and GPC ? contaminant History of aspiration pneumonia History of chronically elevated alkaline phosphatase PICC 01/22 Sacral decubitus. Ventilator-dependent respiratory failure. History of trach and PEG placement. COPD. Esophagitis, Hx Diabetes. Anxiety. Anemia. PLAN: pt on IV Azactam and IV Vanco D# 2 Monitor CBC. Monitor BMP. Monitor cultures (sputum, and blood). repeat blood Cx P Monitor chest x-ray. Continue vent support. EGD : P Subjective Constitutional: Denies: no symptoms, fever, chills, fatigue, anorexia, drenching sweats, other Allergies: Coded Allergies: OXYTETRACYCLINE (Unverified Allergy, Unknown, 09/05/13) PENICILLINS (Unverified Allergy, Unknown, 09/05/13) Uncoded Allergies: PLASTIC TAPE (Allergy, Mild, ITCHINESS, 08/08/15) MEDICAL TAPE (Allergy, Unknown, 12/10/16) Objective Vital Signs Last 24 Hour Vital Signs Date Time Temp Pulse Resp B/P (MAP) Pulse Ox O2 Delivery O2 Flow Rate FiO2 01/23/17 10:57 89 14 35 01/23/17 09:09 95 15 35 01/23/17 08:00 98.3 99 14 144/91 97 Mechanical Ventilator 35 01/23/17 08:00 99 01/23/17 08:00 35 01/23/17 07:21 96 17 35 01/23/17 05:14 95 14 35 01/23/17 04:00 35 01/23/17 04:00 99 01/23/17 04:00 98.3 103 14 134/91 97 Mechanical Ventilator 35 01/23/17 02:48 95 14 35 01/23/17 00:46 99 17 35 01/23/17 00:00 95 01/23/17 00:00 35 01/23/17 00:00 98.2 98 14 151/97 98 Mechanical Ventilator 35 01/22/17 23:35 98 15 35 01/22/17 22:47 89 01/22/17 21:00 93 16 35 01/22/17 20:00 98.8 90 14 142/93 99 Mechanical Ventilator 35 01/22/17 20:00 35 01/22/17 20:00 92 01/22/17 19:45 97 16 35 01/22/17 16:43 84 22 35 01/22/17 16:00 97.7 89 16 144/93 99 Mechanical Ventilator 35 01/22/17 16:00 92 01/22/17 16:00 35 01/22/17 14:42 92 14 35 01/22/17 12:33 81 14 35 Height (Feet): 5 Height (Inches): 4.00 Weight (Pounds): 158 HEENT: anicteric Respiratory/Chest: no accessory muscle use Cardiovascular: regularly irregular Abdomen: no organomegaly Microbiology Date/Time Source Procedure Growth Status 01/21/17 12:30 Blood Blood Culture - Preliminary Staphylococcus Sp Coag Neg Resulted 01/21/17 12:20 Blood Blood Culture - Preliminary Resulted 01/22/17 04:00 Sputum Gram Stain - Final Resulted 01/22/17 04:00 Sputum Culture - Preliminary Gram Negative Bacillus 1 Resulted 01/21/17 11:25 Nasal Nares MRSA Culture - Final NO METHICILLIN RESISTANT STAPH AUREUS... Complete 01/22/17 08:10 Stool Clostridium difficile Toxin Assay - Final Complete 01/21/17 12:05 Urine,Clean Catch Urine Culture - Final Providencia Stuartii Complete 01/21/17 11:25 Rectum VRE Culture - Final Enterococcus Faecalis - Vre Complete Laboratory Tests Test 01/23/17 04:00 White Blood Count 7.9 K/UL (4.8-10.8) Red Blood Count 4.56 M/UL (4.70-6.10) L Hemoglobin 13.4 G/DL (14.2-18.0) L Hematocrit 41.2 % (42.0-52.0) L Mean Corpuscular Volume 90 FL (80-99) Mean Corpuscular Hemoglobin 29.3 PG (27.0-31.0) Mean Corpuscular Hemoglobin Concent 32.4 G/DL (32.0-36.0) Red Cell Distribution Width 12.8 % (11.6-14.8) Platelet Count 255 K/UL (150-450) Mean Platelet Volume 10.7 FL (6.5-10.1) H Neutrophils (%) (Auto) 61.9 % (45.0-75.0) Lymphocytes (%) (Auto) 22.3 % (20.0-45.0) Monocytes (%) (Auto) 9.1 % (1.0-10.0) Eosinophils (%) (Auto) 5.6 % (0.0-3.0) H Basophils (%) (Auto) 1.2 % (0.0-2.0) Prothrombin Time 16.6 SEC (9.30-11.50) H Prothromb Time International Ratio 1.6 (0.9-1.1) H Activated Partial Thromboplast Time 38 SEC (23-33) H Sodium Level 139 MMOL/L (136-145) Potassium Level 3.1 MMOL/L (3.5-5.1) L Chloride Level 104 MMOL/L (98-107) Carbon Dioxide Level 20 MMOL/L (21-32) L Anion Gap 15 mmol/L (5-15) Blood Urea Nitrogen 12 mg/dL (7-18) Creatinine 0.6 MG/DL (0.55-1.30) Estimat Glomerular Filtration Rate > 60 mL/min (>60) Glucose Level 99 MG/DL (74-106) Calcium Level 9.4 MG/DL (8.5-10.1) Phosphorus Level 3.4 MG/DL (2.5-4.9) Magnesium Level 1.9 MG/DL (1.8-2.4) Total Bilirubin 0.7 MG/DL (0.2-1.0) Aspartate Amino Transf (AST/SGOT) 66 U/L (15-37) H Alanine Aminotransferase (ALT/SGPT) 72 U/L (12-78) Alkaline Phosphatase 537 U/L (46-116) H Total Protein 7.8 G/DL (6.4-8.2) Albumin 2.8 G/DL (3.4-5.0) L Globulin 5.0 g/dL Albumin/Globulin Ratio 0.6 (1.0-2.7) L Vancomycin Level Trough 12.3 ug/mL (5.0-12.0) H Current Medications Medications (Trade) Dose Ordered Sig/Sima Route PRN Reason Start Time Stop Time Status Last Admin Dose Admin Acetaminophen (Tylenol) 650 mg Q4H PRN ORAL FEVER 01/21/17 12:45 02/20/17 12:44 Albuterol/ Ipratropium (Albuterol/ Ipratropium) 3 ml EVERY 4 HOURS PRN HHN Shortness of Breath 01/21/17 12:45 01/26/17 12:44 Aztreonam 1 gm/ Dextrose 55 ml @ 110 mls/hr EVERY 8 HOURS IVPB 01/22/17 18:00 01/29/17 17:59 01/23/17 06:23 Chlorhexidine Gluconate (Paulina-Hex 2%) 1 applic DAILY@2000 TOPIC 01/22/17 20:00 02/21/17 19:59 01/22/17 20:42 Dextrose (Dextrose 50%) STAT PRN IV Hypoglycemia 01/21/17 12:45 02/20/17 12:44 Lorazepam (Ativan 2mg/ml 1ml) 2 mg EVERY 2 HOURS PRN IV For Anxiety 01/21/17 12:45 01/28/17 12:44 Morphine Sulfate (Morphine Sulfate) 4 mg EVERY 4 HOURS PRN IVP Severe Pain (Pain Scale 7-10) 01/21/17 12:45 01/28/17 12:44 Ondansetron HCl (Zofran) 4 mg Q6H PRN IVP Nausea & Vomiting 01/21/17 12:45 02/20/17 12:44 Polyethylene Glycol (Miralax) 17 gm BEDTIME GT 01/22/17 21:00 02/21/17 20:59 Polyethylene Glycol (Miralax) 17 gm DAILYPRN PRN ORAL Constipation 01/21/17 12:45 02/20/17 12:44 Potassium Chloride 100 ml @ 50 mls/hr Q2H IVPB 01/23/17 11:15 01/23/17 15:14 01/23/17 11:13 Sodium Chloride 1,000 ml @ 75 mls/hr [id number] IV 01/21/17 15:00 02/20/17 14:59 01/23/17 01:42 Vancomycin HCl (Vanco rx to dose) 1 ea DAILY PRN MISC . 01/22/17 16:15 02/21/17 16:14 Vancomycin HCl 1 gm/Dextrose 275 ml @ 183.3 mls/ hr Q12H IVPB 01/22/17 05:00 11/7/17 04:59 01/23/17 06:59 MARCELLA MA M.D. Jan 23, 2017 12:13
--- NOTE | 2017-01-23 12:29 | Endoscopy Procedure Note ---
Endoscopy Procedure Note Indication for Procedure: gib Procedures Performed: EGD Operative Findings/Diagnosis: gastritis Specimen: yes Pt Tolerated Procedure Well: Yes Estimated Blood Loss: none Anesthesiologist: denys Anesthesia: MAC Implant(s) used?: No 50 yrs or older w/o bx or poly: Not Applicable 10yrs. F/U not recommended: Not Applicable LISA OCONNELL Jan 23, 2017 12:29
--- NOTE | 2017-01-23 12:29 | Diagnostic Imaging Report ---
APPROVED REPORT CPT Code: 30137 Present Symptoms Shortness of breath Comments: Technically difficult study (patient has BLE contractures of the hip and knee). Risk Factors Bed Rest BILATERAL: Imaging reveals a patent deep venous system bilaterally. There is no evidence of thrombus within the femoral, popliteal or tibial segments. The greater saphenous veins are also within normal limits. Doppler indicates normal spontaneous flow within these segments.
--- NOTE | 2017-01-23 12:29 | Diagnostic Imaging Report ---
APPROVED REPORT CPT Code: 79840 Present Symptoms Shortness of breath Comments: Technically difficult study (patient has BLE contractures of the hip and knee). Risk Factors Bed Rest BILATERAL: Imaging reveals a patent deep venous system bilaterally. There is no evidence of thrombus within the femoral, popliteal or tibial segments. The greater saphenous veins are also within normal limits. Doppler indicates normal spontaneous flow within these segments.
--- NOTE | 2017-01-23 12:29 | Diagnostic Imaging Report ---
APPROVED REPORT CPT Code: 43642 Present Symptoms Shortness of breath Comments: Technically difficult study (patient has BLE contractures of the hip and knee). Risk Factors Bed Rest BILATERAL: Imaging reveals a patent deep venous system bilaterally. There is no evidence of thrombus within the femoral, popliteal or tibial segments. The greater saphenous veins are also within normal limits. Doppler indicates normal spontaneous flow within these segments.
--- NOTE | 2017-01-23 13:28 | Pulmonology Progress Note ---
Assessment/Plan Problems: (1) GI bleed (2) Sepsis (3) Chronic respiratory failure (4) Feeding by G-tube (5) jail resident (6) Tracheostomy in place Respiratory: monitor respiratory rate Cardiac: continue to monitor HR/BP Renal: F/U I&O, keep IV fluid Infectious Disease: continue antibiotics Gastrointestinal: continue feedings/current rate, hold feedings Endocrine: monitor blood sugar, check HgA1C, continue sliding scale insulin Hematologic: transfuse if hgb<8.5 Neurologic: PRN Ativan, PRN Morphine, keep patient comfortable Affect: PRN ativan Time Spent (Minutes): 40 Notes Reviewed: emergency medicine, cardio Discussed with: nurses, consultants, mattress spring encaser Subjective ROS Limited/Unobtainable: No Constitutional: Reports: no symptoms HEENT: Repors: no symptoms Respiratory: Reports: no symptoms Allergies: Coded Allergies: OXYTETRACYCLINE (Unverified Allergy, Unknown, 09/05/13) PENICILLINS (Unverified Allergy, Unknown, 09/05/13) Uncoded Allergies: PLASTIC TAPE (Allergy, Mild, ITCHINESS, 08/08/15) MEDICAL TAPE (Allergy, Unknown, 12/10/16) Objective Last 24 Hour Vital Signs Date Time Temp Pulse Resp B/P (MAP) Pulse Ox O2 Delivery O2 Flow Rate FiO2 01/23/17 12:00 35 01/23/17 12:00 97.7 98 14 152/96 97 Mechanical Ventilator 35 01/23/17 12:00 94 01/23/17 10:57 89 14 35 01/23/17 09:09 95 15 35 01/23/17 08:00 98.3 99 14 144/91 97 Mechanical Ventilator 35 01/23/17 08:00 99 01/23/17 08:00 35 01/23/17 07:21 96 17 35 01/23/17 05:14 95 14 35 01/23/17 04:00 35 01/23/17 04:00 99 01/23/17 04:00 98.3 103 14 134/91 97 Mechanical Ventilator 35 01/23/17 02:48 95 14 35 01/23/17 00:46 99 17 35 01/23/17 00:00 95 01/23/17 00:00 35 01/23/17 00:00 98.2 98 14 151/97 98 Mechanical Ventilator 35 01/22/17 23:35 98 15 35 01/22/17 22:47 89 01/22/17 21:00 93 16 35 01/22/17 20:00 98.8 90 14 142/93 99 Mechanical Ventilator 35 01/22/17 20:00 35 01/22/17 20:00 92 01/22/17 19:45 97 16 35 01/22/17 16:43 84 22 35 01/22/17 16:00 97.7 89 16 144/93 99 Mechanical Ventilator 35 01/22/17 16:00 92 01/22/17 16:00 35 01/22/17 14:42 92 14 35 Intake and Output 01/23/17 01/24/17 19:00 07:00 Intake Total 566.7 ml Balance 566.7 ml Intake IV Total 566.7 ml # Bowel Movements 2 General Appearance: WD/WN HEENT: normocephalic, atraumatic, anicteric, mucous membranes moist Respiratory/Chest: chest wall non-tender, normal breath sounds Cardiovascular: normal peripheral pulses Abdomen: normal bowel sounds, soft, non tender Extremities: no cyanosis Neurologic/Psychiatric: financial developer II-XII grossly normal, no motor/sensory deficits Lymphatic: no neck adenopathy Microbiology Date/Time Source Procedure Growth Status 01/21/17 12:30 Blood Blood Culture - Preliminary Staphylococcus Sp Coag Neg Resulted 01/21/17 12:20 Blood Blood Culture - Preliminary Resulted 01/22/17 04:00 Sputum Gram Stain - Final Resulted 01/22/17 04:00 Sputum Culture - Preliminary Gram Negative Bacillus 1 Resulted 01/21/17 11:25 Nasal Nares MRSA Culture - Final NO METHICILLIN RESISTANT STAPH AUREUS... Complete 01/22/17 08:10 Stool Clostridium difficile Toxin Assay - Final Complete 01/21/17 12:05 Urine,Clean Catch Urine Culture - Final Providencia Stuartii Complete 01/21/17 11:25 Rectum VRE Culture - Final Enterococcus Faecalis - Vre Complete Laboratory Tests 01/23/17 04:00: White Blood Count 7.9, Red Blood Count 4.56L, Hemoglobin 13.4L, Hematocrit 41.2L , Mean Corpuscular Volume 90, Mean Corpuscular Hemoglobin 29.3, Mean Corpuscular Hemoglobin Concent 32.4, Red Cell Distribution Width 12.8, Platelet Count 255, Mean Platelet Volume 10.7H, Neutrophils (%) (Auto) 61.9, Lymphocytes (%) (Auto) 22.3, Monocytes (%) (Auto) 9.1, Eosinophils (%) (Auto) 5.6H, Basophils (%) (Auto) 1.2, Prothrombin Time 16.6H, Prothromb Time International Ratio 1.6H, Activated Partial Thromboplast Time 38H, Sodium Level 139, Potassium Level 3.1L, Chloride Level 104, Carbon Dioxide Level 20L, Anion Gap 15 , Blood Urea Nitrogen 12, Creatinine 0.6, Estimat Glomerular Filtration Rate > 60, Glucose Level 99, Calcium Level 9.4, Phosphorus Level 3.4, Magnesium Level 1.9, Total Bilirubin 0.7, Aspartate Amino Transf (AST/SGOT) 66H, Alanine Aminotransferase (ALT/SGPT) 72, Alkaline Phosphatase 537H, Total Protein 7.8, Albumin 2.8L, Globulin 5.0, Albumin/Globulin Ratio 0.6L, Vancomycin Level Trough 12.3H Current Medications Medications (Trade) Dose Ordered Sig/Sima Route PRN Reason Start Time Stop Time Status Last Admin Dose Admin Acetaminophen (Tylenol) 650 mg Q4H PRN ORAL FEVER 01/21/17 12:45 02/20/17 12:44 Albuterol/ Ipratropium (Albuterol/ Ipratropium) 3 ml EVERY 4 HOURS PRN HHN Shortness of Breath 01/21/17 12:45 01/26/17 12:44 Aztreonam 1 gm/ Dextrose 55 ml @ 110 mls/hr EVERY 8 HOURS IVPB 01/22/17 18:00 01/29/17 17:59 01/23/17 06:23 Chlorhexidine Gluconate (Paulina-Hex 2%) 1 applic DAILY@2000 TOPIC 01/22/17 20:00 02/21/17 19:59 01/22/17 20:42 Dextrose (Dextrose 50%) STAT PRN IV Hypoglycemia 01/21/17 12:45 02/20/17 12:44 Lorazepam (Ativan 2mg/ml 1ml) 2 mg EVERY 2 HOURS PRN IV For Anxiety 01/21/17 12:45 01/28/17 12:44 Morphine Sulfate (Morphine Sulfate) 4 mg EVERY 4 HOURS PRN IVP Severe Pain (Pain Scale 7-10) 01/21/17 12:45 01/28/17 12:44 Ondansetron HCl (Zofran) 4 mg Q6H PRN IVP Nausea & Vomiting 01/21/17 12:45 02/20/17 12:44 Polyethylene Glycol (Miralax) 17 gm BEDTIME GT 01/22/17 21:00 02/21/17 20:59 Polyethylene Glycol (Miralax) 17 gm DAILYPRN PRN ORAL Constipation 01/21/17 12:45 02/20/17 12:44 Potassium Chloride 100 ml @ 50 mls/hr Q2H IVPB 01/23/17 11:15 01/23/17 15:14 01/23/17 12:47 Sodium Chloride 1,000 ml @ 75 mls/hr [id number] IV 01/21/17 15:00 02/20/17 14:59 01/23/17 01:42 Vancomycin HCl (Vanco rx to dose) 1 ea DAILY PRN MISC . 01/22/17 16:15 02/21/17 16:14 Vancomycin HCl 1 gm/Dextrose 275 ml @ 183.3 mls/ hr Q12H IVPB 01/22/17 05:00 01/27/17 04:59 01/23/17 06:59 ALBANIA CRAMER Jan 23, 2017 13:28
--- NOTE | 2017-01-23 13:28 | Pulmonology Progress Note ---
Assessment/Plan Problems: (1) GI bleed (2) Sepsis (3) Chronic respiratory failure (4) Feeding by G-tube (5) group home resident (6) Tracheostomy in place Respiratory: monitor respiratory rate Cardiac: continue to monitor HR/BP Renal: F/U I&O, keep IV fluid Infectious Disease: continue antibiotics Gastrointestinal: continue feedings/current rate, hold feedings Endocrine: monitor blood sugar, check HgA1C, continue sliding scale insulin Hematologic: transfuse if hgb<8.5 Neurologic: PRN Ativan, PRN Morphine, keep patient comfortable Affect: PRN ativan Time Spent (Minutes): 40 Notes Reviewed: fence erector, cardio Discussed with: nurses, consultants, caseworker protective services Subjective ROS Limited/Unobtainable: No Constitutional: Reports: no symptoms HEENT: Repors: no symptoms Respiratory: Reports: no symptoms Allergies: Coded Allergies: OXYTETRACYCLINE (Unverified Allergy, Unknown, 09/05/13) PENICILLINS (Unverified Allergy, Unknown, 09/05/13) Uncoded Allergies: PLASTIC TAPE (Allergy, Mild, ITCHINESS, 08/08/15) MEDICAL TAPE (Allergy, Unknown, 12/10/16) Objective Last 24 Hour Vital Signs Date Time Temp Pulse Resp B/P (MAP) Pulse Ox O2 Delivery O2 Flow Rate FiO2 01/23/17 12:00 35 01/23/17 12:00 97.7 98 14 152/96 97 Mechanical Ventilator 35 01/23/17 12:00 94 01/23/17 10:57 89 14 35 01/23/17 09:09 95 15 35 01/23/17 08:00 98.3 99 14 144/91 97 Mechanical Ventilator 35 01/23/17 08:00 99 01/23/17 08:00 35 01/23/17 07:21 96 17 35 01/23/17 05:14 95 14 35 01/23/17 04:00 35 01/23/17 04:00 99 01/23/17 04:00 98.3 103 14 134/91 97 Mechanical Ventilator 35 01/23/17 02:48 95 14 35 01/23/17 00:46 99 17 35 01/23/17 00:00 95 01/23/17 00:00 35 01/23/17 00:00 98.2 98 14 151/97 98 Mechanical Ventilator 35 01/22/17 23:35 98 15 35 01/22/17 22:47 89 01/22/17 21:00 93 16 35 01/22/17 20:00 98.8 90 14 142/93 99 Mechanical Ventilator 35 01/22/17 20:00 35 01/22/17 20:00 92 01/22/17 19:45 97 16 35 01/22/17 16:43 84 22 35 01/22/17 16:00 97.7 89 16 144/93 99 Mechanical Ventilator 35 01/22/17 16:00 92 01/22/17 16:00 35 01/22/17 14:42 92 14 35 Intake and Output 01/23/17 01/24/17 19:00 07:00 Intake Total 566.7 ml Balance 566.7 ml Intake IV Total 566.7 ml # Bowel Movements 2 General Appearance: WD/WN HEENT: normocephalic, atraumatic, anicteric, mucous membranes moist Respiratory/Chest: chest wall non-tender, normal breath sounds Cardiovascular: normal peripheral pulses Abdomen: normal bowel sounds, soft, non tender Extremities: no cyanosis Neurologic/Psychiatric: medical hospital 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 Complete 01/22/17 08:10 Stool Clostridium difficile Toxin Assay - Final Complete 01/21/17 12:05 Urine,Clean Catch Urine Culture - Final Providencia Stuartii Complete 01/21/17 11:25 Rectum VRE Culture - Final Enterococcus Faecalis - Vre Complete Laboratory Tests 01/23/17 04:00: White Blood Count 7.9, Red Blood Count 4.56L, Hemoglobin 13.4L, Hematocrit 41.2L , Mean Corpuscular Volume 90, Mean Corpuscular Hemoglobin 29.3, Mean Corpuscular Hemoglobin Concent 32.4, Red Cell Distribution Width 12.8, Platelet Count 255, Mean Platelet Volume 10.7H, Neutrophils (%) (Auto) 61.9, Lymphocytes (%) (Auto) 22.3, Monocytes (%) (Auto) 9.1, Eosinophils (%) (Auto) 5.6H, Basophils (%) (Auto) 1.2, Prothrombin Time 16.6H, Prothromb Time International Ratio 1.6H, Activated Partial Thromboplast Time 38H, Sodium Level 139, Potassium Level 3.1L, Chloride Level 104, Carbon Dioxide Level 20L, Anion Gap 15 , Blood Urea Nitrogen 12, Creatinine 0.6, Estimat Glomerular Filtration Rate > 60, Glucose Level 99, Calcium Level 9.4, Phosphorus Level 3.4, Magnesium Level 1.9, Total Bilirubin 0.7, Aspartate Amino Transf (AST/SGOT) 66H, Alanine Aminotransferase (ALT/SGPT) 72, Alkaline Phosphatase 537H, Total Protein 7.8, Albumin 2.8L, Globulin 5.0, Albumin/Globulin Ratio 0.6L, Vancomycin Level Trough 12.3H Current Medications Medications (Trade) Dose Ordered Sig/Sima Route PRN Reason Start Time Stop Time Status Last Admin Dose Admin Acetaminophen (Tylenol) 650 mg Q4H PRN ORAL FEVER 01/21/17 12:45 02/20/17 12:44 Albuterol/ Ipratropium (Albuterol/ Ipratropium) 3 ml EVERY 4 HOURS PRN HHN Shortness of Breath 01/21/17 12:45 01/26/17 12:44 Aztreonam 1 gm/ Dextrose 55 ml @ 110 mls/hr EVERY 8 HOURS IVPB 01/22/17 18:00 01/29/17 17:59 01/23/17 06:23 Chlorhexidine Gluconate (Paulina-Hex 2%) 1 applic DAILY@2000 TOPIC 01/22/17 20:00 02/21/17 19:59 01/22/17 20:42 Dextrose (Dextrose 50%) STAT PRN IV Hypoglycemia 01/21/17 12:45 02/20/17 12:44 Lorazepam (Ativan 2mg/ml 1ml) 2 mg EVERY 2 HOURS PRN IV For Anxiety 01/21/17 12:45 01/28/17 12:44 Morphine Sulfate (Morphine Sulfate) 4 mg EVERY 4 HOURS PRN IVP Severe Pain (Pain Scale 7-10) 01/21/17 12:45 01/28/17 12:44 Ondansetron HCl (Zofran) 4 mg Q6H PRN IVP Nausea & Vomiting 01/21/17 12:45 02/20/17 12:44 Polyethylene Glycol (Miralax) 17 gm BEDTIME GT 01/22/17 21:00 02/21/17 20:59 Polyethylene Glycol (Miralax) 17 gm DAILYPRN PRN ORAL Constipation 01/21/17 12:45 02/20/17 12:44 Potassium Chloride 100 ml @ 50 mls/hr Q2H IVPB 01/23/17 11:15 01/23/17 15:14 01/23/17 12:47 Sodium Chloride 1,000 ml @ 75 mls/hr [id number] IV 01/21/17 15:00 02/20/17 14:59 01/23/17 01:42 Vancomycin HCl (Vanco rx to dose) 1 ea DAILY PRN MISC . 01/22/17 16:15 02/21/17 16:14 Vancomycin HCl 1 gm/Dextrose 275 ml @ 183.3 mls/ hr Q12H IVPB 01/22/17 05:00 01/27/17 04:59 01/23/17 06:59 ALBANIA CRAMER Jan 23, 2017 13:28
--- NOTE | 2017-01-23 13:28 | Pulmonology Progress Note ---
Assessment/Plan Problems: (1) GI bleed (2) Sepsis (3) Chronic respiratory failure (4) Feeding by G-tube (5) [facility] resident (6) Tracheostomy in place Respiratory: monitor respiratory rate Cardiac: continue to monitor HR/BP Renal: F/U I&O, keep IV fluid Infectious Disease: continue antibiotics Gastrointestinal: continue feedings/current rate, hold feedings Endocrine: monitor blood sugar, check HgA1C, continue sliding scale insulin Hematologic: transfuse if hgb<8.5 Neurologic: PRN Ativan, PRN Morphine, keep patient comfortable Affect: PRN ativan Time Spent (Minutes): 40 Notes Reviewed: coremaker pipe, cardio Discussed with: nurses, consultants, case management rn Subjective ROS Limited/Unobtainable: No Constitutional: Reports: no symptoms HEENT: Repors: no symptoms Respiratory: Reports: no symptoms Allergies: Coded Allergies: OXYTETRACYCLINE (Unverified Allergy, Unknown, 09/05/13) PENICILLINS (Unverified Allergy, Unknown, 09/05/13) Uncoded Allergies: PLASTIC TAPE (Allergy, Mild, ITCHINESS, 08/08/15) MEDICAL TAPE (Allergy, Unknown, 12/10/16) Objective Last 24 Hour Vital Signs Date Time Temp Pulse Resp B/P (MAP) Pulse Ox O2 Delivery O2 Flow Rate FiO2 01/23/17 12:00 35 01/23/17 12:00 97.7 98 14 152/96 97 Mechanical Ventilator 35 01/23/17 12:00 94 01/23/17 10:57 89 14 35 01/23/17 09:09 95 15 35 01/23/17 08:00 98.3 99 14 144/91 97 Mechanical Ventilator 35 01/23/17 08:00 99 01/23/17 08:00 35 01/23/17 07:21 96 17 35 01/23/17 05:14 95 14 35 01/23/17 04:00 35 01/23/17 04:00 99 01/23/17 04:00 98.3 103 14 134/91 97 Mechanical Ventilator 35 01/23/17 02:48 95 14 35 01/23/17 00:46 99 17 35 01/23/17 00:00 95 01/23/17 00:00 35 01/23/17 00:00 98.2 98 14 151/97 98 Mechanical Ventilator 35 01/22/17 23:35 98 15 35 01/22/17 22:47 89 01/22/17 21:00 93 16 35 01/22/17 20:00 98.8 90 14 142/93 99 Mechanical Ventilator 35 01/22/17 20:00 35 01/22/17 20:00 92 01/22/17 19:45 97 16 35 01/22/17 16:43 84 22 35 01/22/17 16:00 97.7 89 16 144/93 99 Mechanical Ventilator 35 01/22/17 16:00 92 01/22/17 16:00 35 01/22/17 14:42 92 14 35 Intake and Output 01/23/17 01/24/17 19:00 07:00 Intake Total 566.7 ml Balance 566.7 ml Intake IV Total 566.7 ml # Bowel Movements 2 General Appearance: WD/WN HEENT: normocephalic, atraumatic, anicteric, mucous membranes moist Respiratory/Chest: chest wall non-tender, normal breath sounds Cardiovascular: normal peripheral pulses Abdomen: normal bowel sounds, soft, non tender Extremities: no cyanosis 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 Complete 01/22/17 08:10 Stool Clostridium difficile Toxin Assay - Final Complete 01/21/17 12:05 Urine,Clean Catch Urine Culture - Final Providencia Stuartii Complete 01/21/17 11:25 Rectum VRE Culture - Final Enterococcus Faecalis - Vre Complete Laboratory Tests 01/23/17 04:00: White Blood Count 7.9, Red Blood Count 4.56L, Hemoglobin 13.4L, Hematocrit 41.2L , Mean Corpuscular Volume 90, Mean Corpuscular Hemoglobin 29.3, Mean Corpuscular Hemoglobin Concent 32.4, Red Cell Distribution Width 12.8, Platelet Count 255, Mean Platelet Volume 10.7H, Neutrophils (%) (Auto) 61.9, Lymphocytes (%) (Auto) 22.3, Monocytes (%) (Auto) 9.1, Eosinophils (%) (Auto) 5.6H, Basophils (%) (Auto) 1.2, Prothrombin Time 16.6H, Prothromb Time International Ratio 1.6H, Activated Partial Thromboplast Time 38H, Sodium Level 139, Potassium Level 3.1L, Chloride Level 104, Carbon Dioxide Level 20L, Anion Gap 15 , Blood Urea Nitrogen 12, Creatinine 0.6, Estimat Glomerular Filtration Rate > 60, Glucose Level 99, Calcium Level 9.4, Phosphorus Level 3.4, Magnesium Level 1.9, Total Bilirubin 0.7, Aspartate Amino Transf (AST/SGOT) 66H, Alanine Aminotransferase (ALT/SGPT) 72, Alkaline Phosphatase 537H, Total Protein 7.8, Albumin 2.8L, Globulin 5.0, Albumin/Globulin Ratio 0.6L, Vancomycin Level Trough 12.3H Current Medications Medications (Trade) Dose Ordered Sig/Sima Route PRN Reason Start Time Stop Time Status Last Admin Dose Admin Acetaminophen (Tylenol) 650 mg Q4H PRN ORAL FEVER 01/21/17 12:45 02/20/17 12:44 Albuterol/ Ipratropium (Albuterol/ Ipratropium) 3 ml EVERY 4 HOURS PRN HHN Shortness of Breath 01/21/17 12:45 01/26/17 12:44 Aztreonam 1 gm/ Dextrose 55 ml @ 110 mls/hr EVERY 8 HOURS IVPB 01/22/17 18:00 01/29/17 17:59 01/23/17 06:23 Chlorhexidine Gluconate (Paulina-Hex 2%) 1 applic DAILY@2000 TOPIC 01/22/17 20:00 02/21/17 19:59 01/22/17 20:42 Dextrose (Dextrose 50%) STAT PRN IV Hypoglycemia 01/21/17 12:45 02/20/17 12:44 Lorazepam (Ativan 2mg/ml 1ml) 2 mg EVERY 2 HOURS PRN IV For Anxiety 01/21/17 12:45 01/28/17 12:44 Morphine Sulfate (Morphine Sulfate) 4 mg EVERY 4 HOURS PRN IVP Severe Pain (Pain Scale 7-10) 01/21/17 12:45 01/28/17 12:44 Ondansetron HCl (Zofran) 4 mg Q6H PRN IVP Nausea & Vomiting 01/21/17 12:45 02/20/17 12:44 Polyethylene Glycol (Miralax) 17 gm BEDTIME GT 01/22/17 21:00 02/21/17 20:59 Polyethylene Glycol (Miralax) 17 gm DAILYPRN PRN ORAL Constipation 01/21/17 12:45 02/20/17 12:44 Potassium Chloride 100 ml @ 50 mls/hr Q2H IVPB 01/23/17 11:15 01/23/17 15:14 01/23/17 12:47 Sodium Chloride 1,000 ml @ 75 mls/hr [id number] IV 01/21/17 15:00 02/20/17 14:59 01/23/17 01:42 Vancomycin HCl (Vanco rx to dose) 1 ea DAILY PRN MISC . 01/22/17 16:15 02/21/17 16:14 Vancomycin HCl 1 gm/Dextrose 275 ml @ 183.3 mls/ hr Q12H IVPB 01/22/17 05:00 01/27/17 04:59 01/23/17 06:59 ALBANIA CRAMER Jan 23, 2017 13:28
--- NOTE | 2017-01-23 13:32 | Cardiology Report ---
APPROVED REPORT EKG Measurement Heart [id number] 150P56 [id number] Sinus tachycardia Otherwise normal ECG
--- NOTE | 2017-01-23 13:32 | Cardiology Report ---
APPROVED REPORT EKG Measurement Heart [id number] 150P56 [id number] Sinus tachycardia Otherwise normal ECG
--- NOTE | 2017-01-23 13:32 | Cardiology Report ---
APPROVED REPORT EKG Measurement Heart [id number] PA 150P56 [id number] Sinus tachycardia Otherwise normal ECG
[2017-01-23] MEDS ORDERED: 1/2 NS 1000ml IV ONE (15:27)
[2017-01-23] MEDS ORDERED: Tubing IV Secondary IV ONE (15:27)
[2017-01-23 16:00] VITALS: BP 140/90
--- NOTE | 2017-01-23 17:14 | Diagnostic Imaging Report ---
Indication: Abdominal pain Technique: Cantor-scale and duplex images of the upper abdomen were obtained Comparison: 08/04/2016, reference also to abdomen pelvis CT 01/21/2017 Findings: Exam is limited due to bowel gas Gallbladder demonstrates multiple gallstones Common bile duct measures 5 mm in diameter. No intrahepatic biliary ductal dilatation. Liver demonstrates normal echogenicity, no focal abnormality. It is somewhat enlarged . Note that the left lobe is not well visualized Portal vein and hepatic veins are patent. Pancreas is obscured by bowel gas. The spleen is enlarged, measuring 13.8 cm long axis dimension Left kidney measures 11.3 cm in length. Right kidney measures 11.6 cm length. Both kidneys demonstrate normal echogenicity. There is no hydronephrosis. A calcification is seen in the left kidney. Right renal calcifications seen on recent CT scan is not visible sonographically. Abdominal aorta is obscured by bowel gas . A gastrostomy tube is noted Impression: Cholelithiasis, also previously described. Negative for dilated ducts Hepatosplenomegaly Limited exam, as described Gastrostomy Nonobstructive left renal calculi, also seen on recent CT. Note that the right renal calcification seen on recent CT are not visible on this exam
[2017-01-23 20:00] VITALS: BP 152/95
[2017-01-23] MEDS: Dyna-Hex 2% Top Sol 2oz TOPIC SCH (21:24)
[2017-01-23] MEDS: Miralax 17gm pkt GT SCH (21:24)
[2017-01-24] VITALS: BP 154/94
--- NOTE | 2017-01-24 | Procedure Note ---
DATE OF PROCEDURE: 01/23/2017 SURGEON: Gaurav Rosas M.D. PROCEDURE: Upper endoscopy with biopsy. ANESTHESIA: Per Dr. Boston. INSTRUMENT: Olympus adult flexible upper endoscope. INDICATION: GI bleeding. The procedure, risks, benefits, and possible consequences, including hemorrhage, aspiration, perforation and infection, and alternative treatments, were explained to the patient/legal guardian by Dr. Gaurav Rosas and the patient/legal guardian understood and accepted these risks. DESCRIPTION OF PROCEDURE: After informed consent was obtained and the patient was adequately sedated, Olympus upper endoscope was advanced from mouth into the second portion of the duodenum and retroflexion was performed in the stomach. GE junction was found to be at about 38 cm from the incisors. The patient had minimal distal esophagitis. He does not have any obvious bleeding at this time. The stomach revealed diffuse atrophic gastritis. Random biopsy from body and antrum was obtained to rule out H. pylori infection. Then, the G-tube was pushed in to look at under the G-tube looking for source of bleeding. There was no obvious ulceration or any other problem under the G-tube. There is no active upper GI bleeding at this time. The patient tolerated the procedure well without any complication. SUMMARY OF FINDINGS: 1. Minimum distal esophagitis. 2. Gastritis, status post biopsy. RECOMMENDATIONS: 1. Resume tube feedings. 2. Monitor labs. 3. Transfuse as needed. 4. Colonoscopy only if needed. I want to thank, Dr. Rudd, for this kind referral. Gaurav Rosas M.D. DR: ROSA JOB#: [id number] CC: Sagar Rudd M.D.; Fax#: [phone]
[2017-01-24 04:00] VITALS: BP 147/97
[2017-01-24 04:45] LABS: BASOPHILS % (AUTO) 1.6 % (0.0-2.0); EOSINOPHILS % (AUTO) 4.1 % (0.0-3.0); HEMATOCRIT 38.4 % (42.0-52.0); HEMOGLOBIN 12.9 G/DL (14.2-18.0); LYMPHOCYTES % (AUTO) 21.1 % (20.0-45.0); MEAN CORPUSCULAR VOLUME 89 FL (80-99); MONOCYTES % (AUTO) 12.1 % (1.0-10.0); NEUTROPHILS % (AUTO) 61.1 % (45.0-75.0); PLATELET COUNT 248 K/UL (150-450); RED BLOOD COUNT 4.32 M/UL (4.70-6.10); RED CELL DISTRIBUTION WIDTH 12.3 % (11.6-14.8); WHITE BLOOD COUNT 8.5 K/UL (4.8-10.8)
[2017-01-24] MEDS: Vancomycin 1 GM in D5W 275 ML IVPB SCH (05:00)
[2017-01-24 05:17] LABS: ALANINE AMINOTRANSFERASE 64 U/L (12-78); ALBUMIN 2.8 G/DL (3.4-5.0); ALBUMIN/GLOBULIN RATIO 0.6 (1.0-2.7); ALKALINE PHOSPHATASE 523 U/L (46-116); ANION GAP 10 mmol/L (5-15); ASPARTATE AMINO TRANSFERASE 51 U/L (15-37); BILIRUBIN,TOTAL 0.5 MG/DL (0.2-1.0); BLOOD UREA NITROGEN 9 mg/dL (7-18); CALCIUM 9.2 MG/DL (8.5-10.1); CARBON DIOXIDE 25 MMOL/L (21-32); CHLORIDE 105 MMOL/L (98-107); CREATININE 0.6 MG/DL (0.55-1.30); SODIUM 140 MMOL/L (136-145)
[2017-01-24 05:30] LABS: POTASSIUM 2.6 MMOL/L (3.5-5.1)
[2017-01-24] MEDS: Aztreonam 1gm/D5W 55ml IVPB SCH ×6 (06:04→21:27)
[2017-01-24 06:17] LABS: PHOSPHORUS 3.5 MG/DL (2.5-4.9)
--- NOTE | 2017-01-24 07:55 | Immediate Post-Op Evaluation ---
Immediate Post-Op Evalulation Immediate Post-Op Evalulation Procedure: egd Date of Evaluation: Jan 23, 2017 Time of Evaluation: 12:47 IV Fluids: 15ml 0.9ns Blood Products: none Estimated Blood Loss: negligible Blood Pressure Systolic: 109 Blood Pressure Diastolic: 79 Pulse Rate: 106 Respiratory Rate: 14 O2 Sat by Pulse Oximetry: 99 Temperature (Fahrenheit): 97.7 Pain Score (1-10): 0 Nausea: No Vomiting: No Complications none Patient Status: awake, reacts, ventilated Hydration Status: adequate Drug: MASSIMO Escudero Jan 24, 2017 07:55
[2017-01-24 08:00] VITALS: BP 159/97
--- NOTE | 2017-01-24 08:11 | 48 Hour Post Anesthesia Eval ---
Post Anesthesia Evaluation Procedure: egd Date of Evaluation: Jan 23, 2017 Time of Evaluation: 12:50 Blood Pressure Systolic: 110 0: 77 Pulse Rate: 104 Respiratory Rate: 14 Temperature (Fahrenheit): 97.7 O2 Sat by Pulse Oximetry: 99 Airway: other - vt600,ac14,fio2 0.35, Nausea: No Vomiting: No Pain Intensity: 0 Hydration Status: adequate Cardiopulmonary Status: stable Mental Status/LOC: patient returned to baseline Post-Anesthesia Complications: none Follow-up care needed: N/A MASSIMO BRAXTON Jan 24, 2017 08:11
[2017-01-24] MEDS: Pantoprazole Inj IVP SCH (08:40)
[2017-01-24 12:00] VITALS: BP 132/90
--- NOTE | 2017-01-24 13:58 | Infectious Diseases Prog Note ---
Assessment/Plan Assessment/Plan ASSESSMENT: The patient is a 61-year-old male with: UTI Providencia Possible sepsis Leukocytosis due to gastrointestinal bleed, acute stress, also possible urinary tract infection. doubt PNA SCx: GNR and ACB ( colonizer ) Chest x-ray. There is no evidence of infiltrate or pneumonia, unremarkable. blood Cx : CoNS contaminant repeat blood cx :P History of aspiration pneumonia History of chronically elevated alkaline phosphatase PICC 01/22 Sacral decubitus. Ventilator-dependent respiratory failure. History of trach and PEG placement. COPD. Esophagitis, Hx EGD : . Minimum distal esophagitis. Gastritis, status post biopsy. 01/23 Diabetes. Anxiety. Anemia. PLAN: pt on IV Azactam and DC IV Vanco D# 3 Monitor CBC. Monitor BMP. Monitor cultures (sputum, and blood). Monitor chest x-ray. Continue vent support. Subjective Allergies: Coded Allergies: OXYTETRACYCLINE (Unverified Allergy, Unknown, 09/05/13) PENICILLINS (Unverified Allergy, Unknown, 09/05/13) Uncoded Allergies: PLASTIC TAPE (Allergy, Mild, ITCHINESS, 08/08/15) MEDICAL TAPE (Allergy, Unknown, 12/10/16) Subjective afebrile Objective Vital Signs Last 24 Hour Vital Signs Date Time Temp Pulse Resp B/P (MAP) Pulse Ox O2 Delivery O2 Flow Rate FiO2 01/24/17 13:20 78 14 35 01/24/17 12:20 81 01/24/17 12:00 35 01/24/17 12:00 97.5 90 14 132/90 96 Mechanical Ventilator 35 01/24/17 11:20 75 14 35 01/24/17 09:20 80 14 35 01/24/17 08:11 104 14 99 01/24/17 08:00 97.9 94 16 159/97 99 Mechanical Ventilator 99 01/24/17 08:00 35 01/24/17 08:00 74 01/24/17 07:55 106 14 99 01/24/17 07:24 76 14 35 01/24/17 05:18 79 14 35 01/24/17 04:00 35 01/24/17 04:00 98.2 84 17 147/97 100 Mechanical Ventilator 84 01/24/17 04:00 98.2 84 14 147/97 100 Mechanical Ventilator 84 01/24/17 03:51 86 01/24/17 02:48 89 17 35 01/24/17 01:03 91 18 35 01/24/17 00:00 97.3 89 17 154/94 98 Mechanical Ventilator 89 01/24/17 00:00 93 01/24/17 00:00 35 01/23/17 22:42 93 18 35 01/23/17 21:10 92 16 35 01/23/17 20:00 98.6 90 16 152/95 100 Mechanical Ventilator 90 01/23/17 20:00 92 01/23/17 20:00 35 01/23/17 18:55 91 17 35 01/23/17 17:17 91 14 35 01/23/17 16:00 98.1 99 14 140/90 97 Mechanical Ventilator 35 01/23/17 16:00 98 01/23/17 16:00 35 01/23/17 15:58 96 14 35 Height (Feet): 5 Height (Inches): 4.00 Weight (Pounds): 158 HEENT: anicteric Respiratory/Chest: no respiratory distress Cardiovascular: regularly irregular Abdomen: non distended Skin: no lesions Microbiology Date/Time Source Procedure Growth Status 01/22/17 04:00 Sputum Gram Stain - Final Resulted 01/22/17 04:00 Sputum Culture - Preliminary Acinetobacter Baumannii Complx Gram Negative Bacillus 2 Resulted 01/22/17 08:10 Stool Clostridium difficile Toxin Assay - Final Complete Laboratory Tests Test 01/24/17 04:00 White Blood Count 8.5 K/UL (4.8-10.8) Red Blood Count 4.32 M/UL (4.70-6.10) L Hemoglobin 12.9 G/DL (14.2-18.0) L Hematocrit 38.4 % (42.0-52.0) L Mean Corpuscular Volume 89 FL (80-99) Mean Corpuscular Hemoglobin 29.9 PG (27.0-31.0) Mean Corpuscular Hemoglobin Concent 33.6 G/DL (32.0-36.0) Red Cell Distribution Width 12.3 % (11.6-14.8) Platelet Count 248 K/UL (150-450) Mean Platelet Volume 10.9 FL (6.5-10.1) H Neutrophils (%) (Auto) 61.1 % (45.0-75.0) Lymphocytes (%) (Auto) 21.1 % (20.0-45.0) Monocytes (%) (Auto) 12.1 % (1.0-10.0) H Eosinophils (%) (Auto) 4.1 % (0.0-3.0) H Basophils (%) (Auto) 1.6 % (0.0-2.0) Sodium Level 140 MMOL/L (136-145) Potassium Level 2.6 MMOL/L (3.5-5.1) *L Chloride Level 105 MMOL/L (98-107) Carbon Dioxide Level 25 MMOL/L (21-32) Anion Gap 10 mmol/L (5-15) Blood Urea Nitrogen 9 mg/dL (7-18) Creatinine 0.6 MG/DL (0.55-1.30) Estimat Glomerular Filtration Rate > 60 mL/min (>60) Glucose Level 109 MG/DL (74-106) H Calcium Level 9.2 MG/DL (8.5-10.1) Phosphorus Level 3.5 MG/DL (2.5-4.9) Magnesium Level 1.6 MG/DL (1.8-2.4) L Total Bilirubin 0.5 MG/DL (0.2-1.0) Aspartate Amino Transf (AST/SGOT) 51 U/L (15-37) H Alanine Aminotransferase (ALT/SGPT) 64 U/L (12-78) Alkaline Phosphatase 523 U/L (46-116) H Total Protein 7.5 G/DL (6.4-8.2) Albumin 2.8 G/DL (3.4-5.0) L Globulin 4.7 g/dL Albumin/Globulin Ratio 0.6 (1.0-2.7) L Current Medications Medications (Trade) Dose Ordered Sig/Sima Route PRN Reason Start Time Stop Time Status Last Admin Dose Admin Acetaminophen (Tylenol) 650 mg Q4H PRN ORAL FEVER 01/21/17 12:45 02/20/17 12:44 Albuterol/ Ipratropium (Albuterol/ Ipratropium) 3 ml EVERY 4 HOURS PRN HHN Shortness of Breath 01/21/17 12:45 01/26/17 12:44 Aztreonam 1 gm/ Dextrose 55 ml @ 110 mls/hr EVERY 8 HOURS IVPB 01/22/17 18:00 11/9/17 17:59 01/24/17 06:04 Chlorhexidine Gluconate (Paulina-Hex 2%) 1 applic DAILY@2000 TOPIC 01/22/17 20:00 02/21/17 19:59 01/23/17 21:24 Dextrose (Dextrose 50%) STAT PRN IV Hypoglycemia 01/21/17 12:45 02/20/17 12:44 Lorazepam (Ativan 2mg/ml 1ml) 2 mg EVERY 2 HOURS PRN IV For Anxiety 01/21/17 12:45 01/28/17 12:44 Magnesium Sulfate 100 ml @ 100 mls/hr ONCE ONCE IVPB 01/24/17 15:00 01/24/17 15:59 Morphine Sulfate (Morphine Sulfate) 4 mg EVERY 4 HOURS PRN IVP Severe Pain (Pain Scale 7-10) 01/21/17 12:45 01/28/17 12:44 Ondansetron HCl (Zofran) 4 mg Q6H PRN IVP Nausea & Vomiting 01/21/17 12:45 02/20/17 12:44 Pantoprazole (Protonix) 40 mg DAILY IVP 01/24/17 09:00 02/23/17 08:59 01/24/17 08:40 Polyethylene Glycol (Miralax) 17 gm BEDTIME GT 01/22/17 21:00 02/21/17 20:59 01/23/17 21:24 Polyethylene Glycol (Miralax) 17 gm DAILYPRN PRN ORAL Constipation 01/21/17 12:45 02/20/17 12:44 Potassium Chloride 100 ml @ 50 mls/hr ONCE ONCE IVPB 01/24/17 12:30 01/24/17 14:29 01/24/17 12:58 Sodium Chloride 1,000 ml @ 75 mls/hr [id number] IV 01/21/17 15:00 02/20/17 14:59 01/24/17 09:01 Vancomycin HCl (Vanco rx to dose) 1 ea DAILY PRN MISC . 01/22/17 16:15 02/21/17 16:14 Vancomycin HCl 1 gm/Dextrose 275 ml @ 183.3 mls/ hr Q12H IVPB 01/22/17 05:00 01/27/17 04:59 01/24/17 05:00 MARCELLA MA M.D. Jan 24, 2017 13:58
--- NOTE | 2017-01-24 15:45 | General Progress Note ---
Assessment/Plan Assessment/Plan Assessment (1) History of CVA (cerebrovascular accident) (2) Tracheostomy dependence (3) Coffee ground emesis - gastritis and gerd (4) Feeding by G-tube (5) Vomiting (6) GI bleed Plan CT AP reviewed >> see full report. - Gaseous distention of the transverse colon and sigmoid. No evident obstructive lesion related to these. Distention is slightly decreased from the previous study. Suspect functional in nature, baseline for this patient. - Gastric distention, uncertain significance as no downstream gastric obstruction is evident - Previously demonstrated rectal wall foreign body is no longer evident OB stool positive will consider colonic decompression > GoLytely 1L flush ppi monitor H&H, prn transfusion fu cdiff fu labs Subjective Allergies: Coded Allergies: OXYTETRACYCLINE (Unverified Allergy, Unknown, 09/05/13) PENICILLINS (Unverified Allergy, Unknown, 09/05/13) Uncoded Allergies: PLASTIC TAPE (Allergy, Mild, ITCHINESS, 08/08/15) MEDICAL TAPE (Allergy, Unknown, 12/10/16) Subjective awake but not interactive s/p EGD --> gastritis, esophagitis Objective Last 24 Hour Vital Signs Date Time Temp Pulse Resp B/P (MAP) Pulse Ox O2 Delivery O2 Flow Rate FiO2 01/24/17 15:20 82 17 35 01/24/17 13:20 78 14 35 01/24/17 12:20 81 01/24/17 12:00 35 01/24/17 12:00 97.5 90 14 132/90 96 Mechanical Ventilator 35 01/24/17 11:20 75 14 35 01/24/17 09:20 80 14 35 01/24/17 08:11 104 14 99 01/24/17 08:00 97.9 94 16 159/97 99 Mechanical Ventilator 99 01/24/17 08:00 35 01/24/17 08:00 74 01/24/17 07:55 106 14 99 01/24/17 07:24 76 14 35 01/24/17 05:18 79 14 35 01/24/17 04:00 35 01/24/17 04:00 98.2 84 17 147/97 100 Mechanical Ventilator 84 01/24/17 04:00 98.2 84 14 147/97 100 Mechanical Ventilator 84 01/24/17 03:51 86 01/24/17 02:48 89 17 35 01/24/17 01:03 91 18 35 01/24/17 00:00 97.3 89 17 154/94 98 Mechanical Ventilator 89 01/24/17 00:00 93 01/24/17 00:00 35 01/23/17 22:42 93 18 35 01/23/17 21:10 92 16 35 01/23/17 20:00 98.6 90 16 152/95 100 Mechanical Ventilator 90 01/23/17 20:00 92 01/23/17 20:00 35 01/23/17 18:55 91 17 35 01/23/17 17:17 91 14 35 01/23/17 16:00 98.1 99 14 140/90 97 Mechanical Ventilator 35 01/23/17 16:00 98 01/23/17 16:00 35 01/23/17 15:58 96 14 35 Intake and Output 01/24/17 01/25/17 19:00 07:00 Intake Total 1168.333 ml Balance 1168.333 ml IV Total 988.333 ml Tube Feeding 180 ml Laboratory Tests 01/24/17 04:00: White Blood Count 8.5, Red Blood Count 4.32L, Hemoglobin 12.9L, Hematocrit 38.4L , Mean Corpuscular Volume 89, Mean Corpuscular Hemoglobin 29.9, Mean Corpuscular Hemoglobin Concent 33.6, Red Cell Distribution Width 12.3, Platelet Count 248, Mean Platelet Volume 10.9H, Neutrophils (%) (Auto) 61.1, Lymphocytes (%) (Auto) 21.1, Monocytes (%) (Auto) 12.1H, Eosinophils (%) (Auto) 4.1H, Basophils (%) (Auto) 1.6, Sodium Level 140, Potassium Level 2.6*L, Chloride Level 105, Carbon Dioxide Level 25, Anion Gap 10, Blood Urea Nitrogen 9, Creatinine 0.6, Estimat Glomerular Filtration Rate > 60, Glucose Level 109H, Calcium Level 9.2, Phosphorus Level 3.5, Magnesium Level 1.6L, Total Bilirubin 0.5, Aspartate Amino Transf (AST/SGOT) 51H, Alanine Aminotransferase (ALT/SGPT) 64, Alkaline Phosphatase 523H, Total Protein 7.5, Albumin 2.8L, Globulin 4.7, Albumin/Globulin Ratio 0.6L Height (Feet): 5 Height (Inches): 4.00 Weight (Pounds): 158 Objective Debilitated NCAT (+) trach coarse ronchi RR soft ND NT, (+) GT no edema contracted ANDRA MATHIS Jan 24, 2017 15:45
[2017-01-24 16:00] VITALS: BP 117/78
[2017-01-24] MEDS ORDERED: Albuterol/Ipratropium 3ml neb HHN PRN (16:45)
--- NOTE | 2017-01-24 16:51 | Pulmonology Progress Note ---
Assessment/Plan Assessment/Plan ASSESSMENT GI bleeding probably sepsis UTI with Providencia VDRF/trach dysphagia, G tube gastritis esophagitis COPD sacral decub POA chronically elevated alkaline phosphatase cholelithiasis mild anemia PLAN OF CARE PERCY abx ID follows urine cx + Providencia blood cx + SCON, contaminant as per ID, repeated blood cx pending sputum cx -colonized as per ID stool C dif negative vent trach care pulmonary oielt baseline ABG and titrate settings as needed fup with CXR GI follows s/p EGD with findings of gastritis, s/p biopsy, esophagitis fup with biopsy results TF resumed, monitor tolerance strict aspiration precautions, GI prophylaxis CT A/P noted abdominal US no dilated ducts , + cholelithiasis, + HSM monitor HH, stool OB+, iron panel with fei iron wound care as per wound nurse recommendation case discussed and evaluated by supervising physician Subjective Allergies: Coded Allergies: OXYTETRACYCLINE (Unverified Allergy, Unknown, 09/05/13) PENICILLINS (Unverified Allergy, Unknown, 09/05/13) Uncoded Allergies: PLASTIC TAPE (Allergy, Mild, ITCHINESS, 08/08/15) MEDICAL TAPE (Allergy, Unknown, 12/10/16) Subjective afebrile, no leukocytosis, no signs of respiratory distress on current settings Objective Last 24 Hour Vital Signs Date Time Temp Pulse Resp B/P (MAP) Pulse Ox O2 Delivery O2 Flow Rate FiO2 01/24/17 16:00 35 01/24/17 15:20 82 17 35 01/24/17 13:20 78 14 35 01/24/17 12:20 81 01/24/17 12:00 35 01/24/17 12:00 97.5 90 14 132/90 96 Mechanical Ventilator 35 01/24/17 11:20 75 14 35 01/24/17 09:20 80 14 35 01/24/17 08:11 104 14 99 01/24/17 08:00 97.9 94 16 159/97 99 Mechanical Ventilator 99 01/24/17 08:00 35 01/24/17 08:00 74 01/24/17 07:55 106 14 99 01/24/17 07:24 76 14 35 01/24/17 05:18 79 14 35 01/24/17 04:00 35 01/24/17 04:00 98.2 84 17 147/97 100 Mechanical Ventilator 84 01/24/17 04:00 98.2 84 14 147/97 100 Mechanical Ventilator 84 01/24/17 03:51 86 01/24/17 02:48 89 17 35 01/24/17 01:03 91 18 35 01/24/17 00:00 97.3 89 17 154/94 98 Mechanical Ventilator 89 01/24/17 00:00 93 01/24/17 00:00 35 01/23/17 22:42 93 18 35 01/23/17 21:10 92 16 35 01/23/17 20:00 98.6 90 16 152/95 100 Mechanical Ventilator 90 01/23/17 20:00 92 01/23/17 20:00 35 01/23/17 18:55 91 17 35 01/23/17 17:17 91 14 35 Intake and Output 01/24/17 01/25/17 19:00 07:00 Intake Total 1379.583 ml Balance 1379.583 ml IV Total 1199.583 ml Tube Feeding 180 ml General Appearance: other - bedridden, vent dependent male in NAD vent AC 600- 14-35% HEENT: normocephalic, atraumatic, status post trach - Portex #7, secretions scant, yellow, thick Respiratory/Chest: lungs clear Cardiovascular: normal rate, regular rhythm - SR on tele , other - RUE PICC intact Abdomen: normal bowel sounds, soft, non tender, other - G tube Extremities: no edema Neurologic/Psychiatric: abnormal gait - bedridden , other - spastic Musculoskeletal: atrophy - BLE Microbiology Date/Time Source Procedure Growth Status 01/22/17 04:00 Sputum Gram Stain - Final Resulted 01/22/17 04:00 Sputum Culture - Preliminary Acinetobacter Baumannii Complx Gram Negative Bacillus 2 Resulted 01/22/17 08:10 Stool Clostridium difficile Toxin Assay - Final Complete Laboratory Tests 01/24/17 04:00: White Blood Count 8.5, Red Blood Count 4.32L, Hemoglobin 12.9L, Hematocrit 38.4L , Mean Corpuscular Volume 89, Mean Corpuscular Hemoglobin 29.9, Mean Corpuscular Hemoglobin Concent 33.6, Red Cell Distribution Width 12.3, Platelet Count 248, Mean Platelet Volume 10.9H, Neutrophils (%) (Auto) 61.1, Lymphocytes (%) (Auto) 21.1, Monocytes (%) (Auto) 12.1H, Eosinophils (%) (Auto) 4.1H, Basophils (%) (Auto) 1.6, Sodium Level 140, Potassium Level 2.6*L, Chloride Level 105, Carbon Dioxide Level 25, Anion Gap 10, Blood Urea Nitrogen 9, Creatinine 0.6, Estimat Glomerular Filtration Rate > 60, Glucose Level 109H, Calcium Level 9.2, Phosphorus Level 3.5, Magnesium Level 1.6L, Total Bilirubin 0.5, Aspartate Amino Transf (AST/SGOT) 51H, Alanine Aminotransferase (ALT/SGPT) 64, Alkaline Phosphatase 523H, Total Protein 7.5, Albumin 2.8L, Globulin 4.7, Albumin/Globulin Ratio 0.6L Current Medications Medications (Trade) Dose Ordered Sig/Sima Route PRN Reason Start Time Stop Time Status Last Admin Dose Admin Acetaminophen (Tylenol) 650 mg Q4H PRN ORAL FEVER 01/21/17 12:45 02/20/17 12:44 Albuterol/ Ipratropium (Albuterol/ Ipratropium) 3 ml EVERY 4 HOURS PRN HHN Shortness of Breath 01/21/17 12:45 01/26/17 12:44 Aztreonam 1 gm/ Dextrose 55 ml @ 110 mls/hr EVERY 8 HOURS IVPB 01/22/17 18:00 01/29/17 17:59 01/24/17 14:01 Chlorhexidine Gluconate (Paulina-Hex 2%) 1 applic DAILY@2000 TOPIC 01/22/17 20:00 02/21/17 19:59 01/23/17 21:24 Dextrose (Dextrose 50%) STAT PRN IV Hypoglycemia 01/21/17 12:45 02/20/17 12:44 Lorazepam (Ativan 2mg/ml 1ml) 2 mg EVERY 2 HOURS PRN IV For Anxiety 01/21/17 12:45 01/28/17 12:44 Morphine Sulfate (Morphine Sulfate) 4 mg EVERY 4 HOURS PRN IVP Severe Pain (Pain Scale 7-10) 01/21/17 12:45 01/28/17 12:44 Ondansetron HCl (Zofran) 4 mg Q6H PRN IVP Nausea & Vomiting 01/21/17 12:45 02/20/17 12:44 Pantoprazole (Protonix) 40 mg DAILY IVP 01/24/17 09:00 02/23/17 08:59 01/24/17 08:40 Polyethylene Glycol (Miralax) 17 gm BEDTIME GT 01/22/17 21:00 02/21/17 20:59 01/23/17 21:24 Polyethylene Glycol (Miralax) 17 gm DAILYPRN PRN ORAL Constipation 01/21/17 12:45 02/20/17 12:44 Sodium Chloride 1,000 ml @ 75 mls/hr [id number] IV 01/21/17 15:00 02/20/17 14:59 01/24/17 09:01 Marco Antonio ([facility])Taylor NP Jan 24, 2017 16:51
[2017-01-24] MEDS ORDERED: Tubing IV Secondary IV ONE (17:43)
[2017-01-24] MEDS ORDERED: 1/2 NS 1000ml IV ONE (17:43)
[2017-01-24] MEDS ORDERED: NS 275ml ONE (17:43)
[2017-01-24 20:00] VITALS: BP 148/85
[2017-01-24] MEDS: Dyna-Hex 2% Top Sol 2oz TOPIC SCH (20:32)
[2017-01-24] MEDS: Miralax 17gm pkt GT SCH ×3 (20:32→21:00)
[2017-01-25] VITALS (7 sets, daily range): BP systolic 100–148; BP diastolic 64–90
[2017-01-25] MEDS: Aztreonam 1gm/D5W 55ml IVPB SCH ×6 (05:49→20:46)
--- NOTE | 2017-01-25 07:28 | Infectious Diseases Prog Note ---
Assessment/Plan Assessment/Plan A: Sepsis/ SIRS UTI VRE colonization VDRF Esophagitis Hypokalemia P: Continue Azactam Subjective ROS Limited/Unobtainable: Yes Allergies: Coded Allergies: OXYTETRACYCLINE (Unverified Allergy, Unknown, 09/05/13) PENICILLINS (Unverified Allergy, Unknown, 09/05/13) Uncoded Allergies: PLASTIC TAPE (Allergy, Mild, ITCHINESS, 08/08/15) MEDICAL TAPE (Allergy, Unknown, 12/10/16) Objective Vital Signs Last 24 Hour Vital Signs Date Time Temp Pulse Resp B/P (MAP) Pulse Ox O2 Delivery O2 Flow Rate FiO2 01/25/17 06:13 98.0 82 14 100/64 99 Mechanical Ventilator 35 01/25/17 05:25 90 23 35 01/25/17 04:00 82 01/25/17 04:00 98.8 106 22 148/85 99 Mechanical Ventilator 35 01/25/17 04:00 35 01/25/17 03:26 79 14 35 01/25/17 01:17 88 14 35 01/25/17 00:00 35 01/25/17 00:00 87 01/25/17 00:00 98.6 87 14 107/72 98 Mechanical Ventilator 35 01/24/17 23:30 88 14 35 01/24/17 21:30 91 16 35 01/24/17 20:00 98.8 106 22 148/85 99 Mechanical Ventilator 35 01/24/17 20:00 90 01/24/17 20:00 35 01/24/17 19:30 88 14 35 01/24/17 16:58 87 14 35 01/24/17 16:00 35 01/24/17 16:00 88 01/24/17 16:00 98.1 94 14 117/78 97 Mechanical Ventilator 35 01/24/17 15:20 82 17 35 01/24/17 13:20 78 14 35 01/24/17 12:20 81 01/24/17 12:00 35 01/24/17 12:00 97.5 90 14 132/90 96 Mechanical Ventilator 35 01/24/17 11:20 75 14 35 01/24/17 09:20 80 14 35 01/24/17 08:11 104 14 99 01/24/17 08:00 97.9 94 16 159/97 99 Mechanical Ventilator 99 01/24/17 08:00 35 01/24/17 08:00 74 01/24/17 07:55 106 14 99 Height (Feet): 5 Height (Inches): 4.00 Weight (Pounds): 158 HEENT: status post trach Respiratory/Chest: lungs clear, other - on ventilator Cardiovascular: normal rate Abdomen: soft, non tender, other - GT & rectal tube, diarrhea Extremities: other - Right arm PICC line Neurologic/Psychiatric: other - opens eyes only Microbiology Date/Time Source Procedure Growth Status 01/23/17 15:00 Blood Blood Culture - Preliminary NO GROWTH AFTER 24 HOURS Resulted 01/23/17 15:00 Blood Blood Culture - Preliminary NO GROWTH AFTER 24 HOURS Resulted 01/22/17 08:10 Stool Clostridium difficile Toxin Assay - Final Complete Current Medications Medications (Trade) Dose Ordered Sig/Sima Route PRN Reason Start Time Stop Time Status Last Admin Dose Admin Acetaminophen (Tylenol) 650 mg Q4H PRN ORAL FEVER 01/21/17 12:45 02/20/17 12:44 Albuterol/ Ipratropium (Albuterol/ Ipratropium) 3 ml Q4H PRN HHN Shortness of Breath 01/24/17 16:45 01/29/17 16:44 Aztreonam 1 gm/ Dextrose 55 ml @ 110 mls/hr EVERY 8 HOURS IVPB 01/22/17 18:00 01/29/17 17:59 01/25/17 05:49 Chlorhexidine Gluconate (Paulina-Hex 2%) 1 applic DAILY@2000 TOPIC 01/22/17 20:00 02/21/17 19:59 01/24/17 20:32 Dextrose (Dextrose 50%) STAT PRN IV Hypoglycemia 01/21/17 12:45 02/20/17 12:44 Lorazepam (Ativan 2mg/ml 1ml) 2 mg EVERY 2 HOURS PRN IV For Anxiety 01/21/17 12:45 01/28/17 12:44 Morphine Sulfate (Morphine Sulfate) 4 mg EVERY 4 HOURS PRN IVP Severe Pain (Pain Scale 7-10) 01/21/17 12:45 01/28/17 12:44 Ondansetron HCl (Zofran) 4 mg Q6H PRN IVP Nausea & Vomiting 01/21/17 12:45 02/20/17 12:44 Pantoprazole (Protonix) 40 mg DAILY IVP 01/24/17 09:00 02/23/17 08:59 01/24/17 08:40 Polyethylene Glycol (Miralax) 17 gm BEDTIME GT 01/22/17 21:00 02/21/17 20:59 01/23/17 21:24 Polyethylene Glycol (Miralax) 17 gm DAILYPRN PRN ORAL Constipation 01/21/17 12:45 02/20/17 12:44 Sodium Chloride 1,000 ml @ 75 mls/hr [id number] IV 01/21/17 15:00 02/20/17 14:59 01/24/17 23:00 GLORIA COVARRUBIAS Jan 25, 2017 07:28
--- NOTE | 2017-01-25 08:03 | Pulmonology Progress Note ---
Assessment/Plan Assessment/Plan ASSESSMENT GI bleeding probably sepsis UTI with Providencia VDRF/trach dysphagia, G tube gastritis esophagitis COPD sacral decub POA chronically elevated alkaline phosphatase cholelithiasis mild anemia e/lyte abnormalities ( hypo K, hypo mg0 PLAN OF CARE PERCY abx ID follows urine cx + Providencia blood cx + SCON, contaminant as per ID, repeated blood cx pending sputum cx -colonized as per ID stool C dif negative vent /trach care pulmonary toielt baseline ABG stable on current settings, keep as is and titrate settings as needed fup with CXR today GI follows s/p EGD with findings of gastritis, s/p biopsy, esophagitis fup with biopsy results TF resumed, monitor tolerance strict aspiration precautions, GI prophylaxis CT A/P noted abdominal US no dilated ducts , + cholelithiasis, + HSM monitor HH, stool OB+, iron panel with fei iron replace K, check level in am wound care as per wound nurse recommendation case discussed and evaluated by supervising physician Subjective Allergies: Coded Allergies: OXYTETRACYCLINE (Unverified Allergy, Unknown, 09/05/13) PENICILLINS (Unverified Allergy, Unknown, 09/05/13) Uncoded Allergies: PLASTIC TAPE (Allergy, Mild, ITCHINESS, 08/08/15) MEDICAL TAPE (Allergy, Unknown, 12/10/16) Subjective afebrile, no signs of respiratory distress on current settings HH at baseline, small trend down no evidence of bleeding K still low-3.2 Objective Last 24 Hour Vital Signs Date Time Temp Pulse Resp B/P (MAP) Pulse Ox O2 Delivery O2 Flow Rate FiO2 01/25/17 07:15 75 14 35 01/25/17 06:13 98.0 82 14 100/64 99 Mechanical Ventilator 35 01/25/17 05:25 90 23 35 01/25/17 04:00 82 01/25/17 04:00 98.8 106 22 148/85 99 Mechanical Ventilator 35 01/25/17 04:00 35 01/25/17 03:26 79 14 35 01/25/17 01:17 88 14 35 01/25/17 00:00 35 01/25/17 00:00 87 01/25/17 00:00 98.6 87 14 107/72 98 Mechanical Ventilator 35 01/24/17 23:30 88 14 35 01/24/17 21:30 91 16 35 01/24/17 20:00 98.8 106 22 148/85 99 Mechanical Ventilator 35 01/24/17 20:00 90 01/24/17 20:00 35 01/24/17 19:30 88 14 35 01/24/17 16:58 87 14 35 01/24/17 16:00 35 01/24/17 16:00 88 01/24/17 16:00 98.1 94 14 117/78 97 Mechanical Ventilator 35 01/24/17 15:20 82 17 35 01/24/17 13:20 78 14 35 01/24/17 12:20 81 01/24/17 12:00 35 01/24/17 12:00 97.5 90 14 132/90 96 Mechanical Ventilator 35 01/24/17 11:20 75 14 35 01/24/17 09:20 80 14 35 01/24/17 08:11 104 14 99 Objective General Appearance: other - bedridden, vent dependent male in NAD vent AC 600- 14-35% HEENT: normocephalic, atraumatic, status post trach - Portex #7, secretions scant, yellow, thick Respiratory/Chest: lungs clear Cardiovascular: normal rate, regular rhythm - SR on tele , RUE PICC intact Abdomen: normal bowel sounds, soft, non tender, G tube Extremities: no edema Neurologic/Psychiatric: abnormal gait - bedridden , spastic Musculoskeletal: atrophy - BLE Microbiology Date/Time Source Procedure Growth Status 01/23/17 15:00 Blood Blood Culture - Preliminary NO GROWTH AFTER 24 HOURS Resulted 01/23/17 15:00 Blood Blood Culture - Preliminary NO GROWTH AFTER 24 HOURS Resulted 01/22/17 08:10 Stool Clostridium difficile Toxin Assay - Final Complete Current Medications Medications (Trade) Dose Ordered Sig/Sima Route PRN Reason Start Time Stop Time Status Last Admin Dose Admin Acetaminophen (Tylenol) 650 mg Q4H PRN ORAL FEVER 01/21/17 12:45 02/20/17 12:44 Albuterol/ Ipratropium (Albuterol/ Ipratropium) 3 ml Q4H PRN HHN Shortness of Breath 01/24/17 16:45 01/29/17 16:44 Aztreonam 1 gm/ Dextrose 55 ml @ 110 mls/hr EVERY 8 HOURS IVPB 01/22/17 18:00 01/29/17 17:59 01/25/17 05:49 Chlorhexidine Gluconate (Paulina-Hex 2%) 1 applic DAILY@2000 TOPIC 01/22/17 20:00 02/21/17 19:59 01/24/17 20:32 Dextrose (Dextrose 50%) STAT PRN IV Hypoglycemia 01/21/17 12:45 02/20/17 12:44 Lorazepam (Ativan 2mg/ml 1ml) 2 mg EVERY 2 HOURS PRN IV For Anxiety 01/21/17 12:45 01/28/17 12:44 Morphine Sulfate (Morphine Sulfate) 4 mg EVERY 4 HOURS PRN IVP Severe Pain (Pain Scale 7-10) 01/21/17 12:45 01/28/17 12:44 Ondansetron HCl (Zofran) 4 mg Q6H PRN IVP Nausea & Vomiting 01/21/17 12:45 02/20/17 12:44 Pantoprazole (Protonix) 40 mg DAILY IVP 01/24/17 09:00 02/23/17 08:59 01/24/17 08:40 Polyethylene Glycol (Miralax) 17 gm BEDTIME GT 01/22/17 21:00 02/21/17 20:59 01/23/17 21:24 Polyethylene Glycol (Miralax) 17 gm DAILYPRN PRN ORAL Constipation 01/21/17 12:45 02/20/17 12:44 Sodium Chloride 1,000 ml @ 75 mls/hr [id number] IV 01/21/17 15:00 02/20/17 14:59 01/24/17 23:00 Taylor Bernard NP ([facility]) Jan 25, 2017 08:03
[2017-01-25 08:10] LABS: BASOPHILS % (AUTO) 1.4 % (0.0-2.0); EOSINOPHILS % (AUTO) 6.3 % (0.0-3.0); HEMATOCRIT 37.1 % (42.0-52.0); HEMOGLOBIN 11.9 G/DL (14.2-18.0); MEAN CORPUSCULAR VOLUME 90 FL (80-99); MONOCYTES % (AUTO) 10.7 % (1.0-10.0); NEUTROPHILS % (AUTO) 54.6 % (45.0-75.0); PLATELET COUNT 229 K/UL (150-450); RED BLOOD COUNT 4.11 M/UL (4.70-6.10); RED CELL DISTRIBUTION WIDTH 12.4 % (11.6-14.8); WHITE BLOOD COUNT 7.3 K/UL (4.8-10.8)
[2017-01-25 08:22] LABS: ANION GAP 8 mmol/L (5-15); BLOOD UREA NITROGEN 13 mg/dL (7-18); CALCIUM 8.8 MG/DL (8.5-10.1); CARBON DIOXIDE 26 MMOL/L (21-32); CHLORIDE 105 MMOL/L (98-107); CREATININE 0.6 MG/DL (0.55-1.30); POTASSIUM 3.2 MMOL/L (3.5-5.1); SODIUM 138 MMOL/L (136-145)
[2017-01-25] MEDS: Pantoprazole Inj IVP SCH (09:00)
[2017-01-25] MEDS ORDERED: KCl 10% 40mEq/30ml liquid GT ONE (10:30)
--- NOTE | 2017-01-25 11:09 | Diagnostic Imaging Report ---
Indication: SOB Technique: CHEST 1 VIEW Comparison:01/21/2017 Findings: Compared to previous study the left costophrenic angle has been cut off the film. The cardiomediastinal silhouette is unchanged. There is increasing opacification of the bases obscuring the diaphragms. Tracheostomy remains. Right arm PICC line is now in place with the tip in good position. Impression: Increasing basilar infiltrate or atelectasis. PICC line now in place. There are no other change.
[2017-01-25] MEDS ORDERED: Vancomycin 1250mg/D5W 250ml IVPB ONE ×2 (14:00→14:30)
--- NOTE | 2017-01-25 16:44 | General Progress Note ---
Assessment/Plan Assessment/Plan Assessment (1) History of CVA (cerebrovascular accident) (2) Tracheostomy dependence (3) Coffee ground emesis - gastritis and gerd (4) Feeding by G-tube (5) Vomiting (6) GI bleed Plan CT AP reviewed >> see full report. - Gaseous distention of the transverse colon and sigmoid. No evident obstructive lesion related to these. Distention is slightly decreased from the previous study. Suspect functional in nature, baseline for this patient. - Gastric distention, uncertain significance as no downstream gastric obstruction is evident - Previously demonstrated rectal wall foreign body is no longer evident OB stool positive will consider colonic decompression > GoLytely 1L flush ppi monitor H&H, prn transfusion fu cdiff fu labs Subjective Allergies: Coded Allergies: OXYTETRACYCLINE (Unverified Allergy, Unknown, 09/05/13) PENICILLINS (Unverified Allergy, Unknown, 09/05/13) Uncoded Allergies: PLASTIC TAPE (Allergy, Mild, ITCHINESS, 08/08/15) MEDICAL TAPE (Allergy, Unknown, 12/10/16) Subjective awake but not interactive s/p EGD --> gastritis, esophagitis Objective Last 24 Hour Vital Signs Date Time Temp Pulse Resp B/P (MAP) Pulse Ox O2 Delivery O2 Flow Rate FiO2 01/25/17 16:10 98.5 81 18 130/68 100 Mechanical Ventilator 35 01/25/17 15:19 78 01/25/17 15:19 35 01/25/17 14:58 69 14 35 01/25/17 13:01 75 14 35 01/25/17 12:00 98.8 75 15 126/76 99 Mechanical Ventilator 35 01/25/17 11:20 82 01/25/17 11:20 35 01/25/17 10:46 74 14 35 01/25/17 08:50 76 14 35 01/25/17 08:00 97.8 75 14 137/89 100 Mechanical Ventilator 35 01/25/17 08:00 35 01/25/17 08:00 87 01/25/17 07:15 75 14 35 01/25/17 06:13 98.0 82 14 100/64 99 Mechanical Ventilator 35 01/25/17 05:25 90 23 35 01/25/17 04:00 82 01/25/17 04:00 98.8 106 22 148/85 99 Mechanical Ventilator 35 01/25/17 04:00 35 11/5/17 03:26 79 14 35 01/25/17 01:17 88 14 35 01/25/17 00:00 35 01/25/17 00:00 87 01/25/17 00:00 98.6 87 14 107/72 98 Mechanical Ventilator 35 01/24/17 23:30 88 14 35 01/24/17 21:30 91 16 35 01/24/17 20:00 98.8 106 22 148/85 99 Mechanical Ventilator 35 01/24/17 20:00 90 01/24/17 20:00 35 01/24/17 19:30 88 14 35 01/24/17 16:58 87 14 35 Intake and Output 01/25/17 01/26/17 19:00 07:00 Intake Total 600 ml Balance 600 ml IV Total 600 ml Laboratory Tests 01/25/17 07:00: White Blood Count 7.3, Red Blood Count 4.11L, Hemoglobin 11.9L, Hematocrit 37.1L , Mean Corpuscular Volume 90, Mean Corpuscular Hemoglobin 29.0, Mean Corpuscular Hemoglobin Concent 32.2, Red Cell Distribution Width 12.4, Platelet Count 229, Mean Platelet Volume 10.4H, Neutrophils (%) (Auto) 54.6, Lymphocytes (%) (Auto) 27.0, Monocytes (%) (Auto) 10.7H, Eosinophils (%) (Auto) 6.3H, Basophils (%) (Auto) 1.4, Sodium Level 138, Potassium Level 3.2L, Chloride Level 105, Carbon Dioxide Level 26, Anion Gap 8, Blood Urea Nitrogen 13, Creatinine 0.6, Estimat Glomerular Filtration Rate > 60, Glucose Level 115H, Calcium Level 8.8 01/25/17 08:50: Arterial Blood pH 7.437, Arterial Blood Partial Pressure CO2 35.1, Arterial Blood Partial Pressure O2 125.7H, Arterial Blood HCO3 23.1, Arterial Blood Oxygen Saturation 98.4H, Arterial Blood Base Excess -0.6, Melvin Test Positive Height (Feet): 5 Height (Inches): 4.00 Weight (Pounds): 158 Objective Debilitated NCAT (+) trach coarse ronchi RR soft ND NT, (+) GT no edema contracted ANDRA MATHIS Jan 25, 2017 16:44
[2017-01-25] MEDS: Dyna-Hex 2% Top Sol 2oz TOPIC SCH (20:44)
[2017-01-25] MEDS: Miralax 17gm pkt GT SCH (20:45)
[2017-01-26] VITALS: BP 153/91
[2017-01-26] MEDS: Vancomycin 1gm/D5W 275ml IVPB SCH ×4 (02:50→14:16)
[2017-01-26 04:00] VITALS: BP 140/90
[2017-01-26 05:58] LABS: BASOPHILS % (AUTO) 1.6 % (0.0-2.0); EOSINOPHILS % (AUTO) 6.7 % (0.0-3.0); HEMATOCRIT 36.5 % (42.0-52.0); HEMOGLOBIN 12.4 G/DL (14.2-18.0); LYMPHOCYTES % (AUTO) 20.3 % (20.0-45.0); MEAN CORPUSCULAR VOLUME 90 FL (80-99); MONOCYTES % (AUTO) 11.8 % (1.0-10.0); NEUTROPHILS % (AUTO) 59.6 % (45.0-75.0); PLATELET COUNT 236 K/UL (150-450); RED BLOOD COUNT 4.04 M/UL (4.70-6.10); WHITE BLOOD COUNT 8.5 K/UL (4.8-10.8)
[2017-01-26 06:10] LABS: ANION GAP 7 mmol/L (5-15); BLOOD UREA NITROGEN 11 mg/dL (7-18); CALCIUM 8.8 MG/DL (8.5-10.1); CARBON DIOXIDE 27 MMOL/L (21-32); CHLORIDE 105 MMOL/L (98-107); CREATININE 0.6 MG/DL (0.55-1.30); POTASSIUM 3.4 MMOL/L (3.5-5.1); SODIUM 139 MMOL/L (136-145)
[2017-01-26] MEDS: Aztreonam 1gm/D5W 55ml IVPB SCH ×6 (06:27→22:44)
[2017-01-26 08:00] VITALS: BP 125/77
[2017-01-26] MEDS: Pantoprazole Inj IVP SCH (08:48)
[2017-01-26] MEDS ORDERED: Tubing IV Secondary IV ONE (10:34)
[2017-01-26] MEDS ORDERED: NS 275ml ONE (10:34)
[2017-01-26] MEDS ORDERED: 1/2 NS 1000ml IV ONE (10:34)
--- NOTE | 2017-01-26 10:38 | Infectious Diseases Prog Note ---
Assessment/Plan Assessment/Plan ASSESSMENT: The patient is a 61-year-old male with: UTI Providencia Possible sepsis Leukocytosis due to gastrointestinal bleed, acute stress, also possible urinary tract infection. doubt PNA SCx: GNR and ACB ( colonizer ) Chest x-ray. increasing basilar infiltrate or atelectasis. blood Cx : CoNS / History of aspiration pneumonia History of chronically elevated alkaline phosphatase PICC 01/22 Sacral decubitus. Ventilator-dependent respiratory failure. History of trach and PEG placement. COPD. Esophagitis, Hx EGD : . Minimum distal esophagitis. Gastritis, status post biopsy. 01/23 Diabetes. Anxiety. Anemia. PLAN: pt on IV Azactam d# and IV Vanco D# 5 / Monitor CBC. Monitor BMP. Monitor cultures ( blood). , repeat Monitor chest x-ray. Continue vent support. 2D Echo rjo VEg Subjective Allergies: Coded Allergies: OXYTETRACYCLINE (Unverified Allergy, Unknown, 09/05/13) PENICILLINS (Unverified Allergy, Unknown, 09/05/13) Uncoded Allergies: PLASTIC TAPE (Allergy, Mild, ITCHINESS, 08/08/15) MEDICAL TAPE (Allergy, Unknown, 12/10/16) Subjective afebrile no new acute event Objective Vital Signs Last 24 Hour Vital Signs Date Time Temp Pulse Resp B/P (MAP) Pulse Ox O2 Delivery O2 Flow Rate FiO2 01/26/17 08:31 81 14 35 01/26/17 08:00 98.0 85 14 125/77 98 Mechanical Ventilator 35 01/26/17 07:40 82 01/26/17 07:40 35 01/26/17 06:31 80 14 35 01/26/17 05:14 82 14 35 01/26/17 04:58 83 01/26/17 04:00 97.5 81 14 140/90 99 Mechanical Ventilator 35 01/26/17 04:00 35 01/26/17 03:30 82 15 35 01/26/17 01:30 77 14 35 01/26/17 00:00 35 01/26/17 00:00 81 01/26/17 00:00 97.9 84 14 153/91 96 Mechanical Ventilator 35 01/25/17 23:30 79 14 35 01/25/17 21:30 76 14 35 01/25/17 20:00 86 01/25/17 20:00 97.5 78 14 146/90 97 Mechanical Ventilator 35 01/25/17 20:00 35 01/25/17 19:30 82 15 35 01/25/17 16:54 76 14 35 01/25/17 16:10 98.5 81 18 130/68 100 Mechanical Ventilator 35 01/25/17 15:19 78 01/25/17 15:19 35 01/25/17 14:58 69 14 35 01/25/17 13:01 75 14 35 01/25/17 12:00 98.8 75 15 126/76 99 Mechanical Ventilator 35 01/25/17 11:20 82 01/25/17 11:20 35 01/25/17 10:46 74 14 35 Height (Feet): 5 Height (Inches): 4.00 Weight (Pounds): 158 HEENT: mucous membranes moist Respiratory/Chest: no respiratory distress Cardiovascular: regular rhythm Abdomen: non distended Microbiology Date/Time Source Procedure Growth Status 01/23/17 15:00 Blood Blood Culture - Preliminary Staphylococcus Sp Coag Neg Resulted 01/23/17 15:00 Blood Blood Culture - Preliminary NO GROWTH AFTER 48 HOURS Resulted Laboratory Tests Test 01/26/17 05:00 White Blood Count 8.5 K/UL (4.8-10.8) Red Blood Count 4.04 M/UL (4.70-6.10) L Hemoglobin 12.4 G/DL (14.2-18.0) L Hematocrit 36.5 % (42.0-52.0) L Mean Corpuscular Volume 90 FL (80-99) Mean Corpuscular Hemoglobin 30.7 PG (27.0-31.0) Mean Corpuscular Hemoglobin Concent 33.9 G/DL (32.0-36.0) Red Cell Distribution Width 13.0 % (11.6-14.8) Platelet Count 236 K/UL (150-450) Mean Platelet Volume 10.7 FL (6.5-10.1) H Neutrophils (%) (Auto) 59.6 % (45.0-75.0) Lymphocytes (%) (Auto) 20.3 % (20.0-45.0) Monocytes (%) (Auto) 11.8 % (1.0-10.0) H Eosinophils (%) (Auto) 6.7 % (0.0-3.0) H Basophils (%) (Auto) 1.6 % (0.0-2.0) Sodium Level 139 MMOL/L (136-145) Potassium Level 3.4 MMOL/L (3.5-5.1) L Chloride Level 105 MMOL/L (98-107) Carbon Dioxide Level 27 MMOL/L (21-32) Anion Gap 7 mmol/L (5-15) Blood Urea Nitrogen 11 mg/dL (7-18) Creatinine 0.6 MG/DL (0.55-1.30) Estimat Glomerular Filtration Rate > 60 mL/min (>60) Glucose Level 138 MG/DL (74-106) H Calcium Level 8.8 MG/DL (8.5-10.1) Magnesium Level 1.8 MG/DL (1.8-2.4) Current Medications Medications (Trade) Dose Ordered Sig/Sima Route PRN Reason Start Time Stop Time Status Last Admin Dose Admin Acetaminophen (Tylenol) 650 mg Q4H PRN ORAL FEVER 01/21/17 12:45 02/20/17 12:44 Albuterol/ Ipratropium (Albuterol/ Ipratropium) 3 ml Q4H PRN HHN Shortness of Breath 01/24/17 16:45 01/29/17 16:44 Aztreonam 1 gm/ Dextrose 55 ml @ 110 mls/hr EVERY 8 HOURS IVPB 01/22/17 18:00 01/29/17 17:59 01/26/17 06:27 Chlorhexidine Gluconate (Paulina-Hex 2%) 1 applic DAILY@2000 TOPIC 01/22/17 20:00 02/21/17 19:59 01/25/17 20:44 Dextrose (Dextrose 50%) STAT PRN IV Hypoglycemia 01/21/17 12:45 02/20/17 12:44 Lorazepam (Ativan 2mg/ml 1ml) 2 mg EVERY 2 HOURS PRN IV For Anxiety 01/21/17 12:45 01/28/17 12:44 Morphine Sulfate (Morphine Sulfate) 4 mg EVERY 4 HOURS PRN IVP Severe Pain (Pain Scale 7-10) 01/21/17 12:45 01/28/17 12:44 Ondansetron HCl (Zofran) 4 mg Q6H PRN IVP Nausea & Vomiting 01/21/17 12:45 02/20/17 12:44 Pantoprazole (Protonix) 40 mg DAILY IVP 01/24/17 09:00 02/23/17 08:59 01/26/17 08:48 Polyethylene Glycol (Miralax) 17 gm BEDTIME GT 01/22/17 21:00 02/21/17 20:59 01/25/17 20:45 Polyethylene Glycol (Miralax) 17 gm DAILYPRN PRN ORAL Constipation 01/21/17 12:45 02/20/17 12:44 Sodium Chloride 1,000 ml @ 75 mls/hr [id number] IV 01/21/17 15:00 02/20/17 14:59 01/26/17 02:07 Vancomycin HCl (Vanco rx to dose) 1 ea DAILY PRN MISC Per rx protocol 01/25/17 12:30 02/24/17 12:29 Vancomycin HCl 1 gm/Dextrose 275 ml @ 183.708 mls/hr Q12HR@0230,1430 IVPB 01/26/17 02:30 01/31/17 02:29 01/26/17 02:50 MARCELLA MA M.D. Jan 26, 2017 10:38
--- NOTE | 2017-01-26 11:20 | GI Progress Note ---
Assessment/Plan Problems: (1) Tracheostomy in place ICD Codes: Z93.0 - Tracheostomy in place SNOMED: 713687813 (2) History of CVA (cerebrovascular accident) ICD Codes: Z86.73 - History of CVA (cerebrovascular accident) SNOMED: 856193227 (3) Feeding by G-tube ICD Codes: Z93.1 - Feeding by G-tube SNOMED: 276205735 (4) GI bleed ICD Codes: K92.2 - Gastrointestinal hemorrhage, unspecified SNOMED: 46084411 (5) Vomiting ICD Codes: R11.10 - Vomiting, unspecified SNOMED: 651774775 (6) Coffee ground emesis ICD Codes: K92.0 - Hematemesis SNOMED: 873486375, 29283982 Status: unchanged Status Narrative Discussed with Dr. Rosas. Assessment/Plan CT AP reviewed >> see full report. - Gaseous distention of the transverse colon and sigmoid. No evident obstructive lesion related to these. Distention is slightly decreased from the previous study. Suspect functional in nature, baseline for this patient. - Gastric distention, uncertain significance as no downstream gastric obstruction is evident - Previously demonstrated rectal wall foreign body is no longer evident OB stool positive, stable H&H GTFs per dietary will consider colonic decompression if no BM > GoLytely 1L flush ppi monitor H&H, prn transfusion fu cdiff fu labs Subjective Subjective limited Objective Last 24 Hour Vital Signs Date Time Temp Pulse Resp B/P (MAP) Pulse Ox O2 Delivery O2 Flow Rate FiO2 01/26/17 10:56 75 15 Mechanical Ventilator 35 01/26/17 10:56 74 14 35 01/26/17 08:31 81 14 35 01/26/17 08:00 98.0 85 14 125/77 98 Mechanical Ventilator 35 01/26/17 07:40 82 01/26/17 07:40 35 01/26/17 06:31 80 14 35 01/26/17 05:14 82 14 35 01/26/17 04:58 83 01/26/17 04:00 97.5 81 14 140/90 99 Mechanical Ventilator 35 01/26/17 04:00 35 01/26/17 03:30 82 15 35 01/26/17 01:30 77 14 35 01/26/17 00:00 35 01/26/17 00:00 81 01/26/17 00:00 97.9 84 14 153/91 96 Mechanical Ventilator 35 01/25/17 23:30 79 14 35 01/25/17 21:30 76 14 35 01/25/17 20:00 86 01/25/17 20:00 97.5 78 14 146/90 97 Mechanical Ventilator 35 01/25/17 20:00 35 01/25/17 19:30 82 15 35 01/25/17 16:54 76 14 35 01/25/17 16:10 98.5 81 18 130/68 100 Mechanical Ventilator 35 01/25/17 15:19 78 01/25/17 15:19 35 01/25/17 14:58 69 14 35 01/25/17 13:01 75 14 35 01/25/17 12:00 98.8 75 15 126/76 99 Mechanical Ventilator 35 01/25/17 11:20 82 01/25/17 11:20 35 Laboratory Tests Test 01/26/17 05:00 White Blood Count 8.5 K/UL (4.8-10.8) Red Blood Count 4.04 M/UL (4.70-6.10) L Hemoglobin 12.4 G/DL (14.2-18.0) L Hematocrit 36.5 % (42.0-52.0) L Mean Corpuscular Volume 90 FL (80-99) Mean Corpuscular Hemoglobin 30.7 PG (27.0-31.0) Mean Corpuscular Hemoglobin Concent 33.9 G/DL (32.0-36.0) Red Cell Distribution Width 13.0 % (11.6-14.8) Platelet Count 236 K/UL (150-450) Mean Platelet Volume 10.7 FL (6.5-10.1) H Neutrophils (%) (Auto) 59.6 % (45.0-75.0) Lymphocytes (%) (Auto) 20.3 % (20.0-45.0) Monocytes (%) (Auto) 11.8 % (1.0-10.0) H Eosinophils (%) (Auto) 6.7 % (0.0-3.0) H Basophils (%) (Auto) 1.6 % (0.0-2.0) Sodium Level 139 MMOL/L (136-145) Potassium Level 3.4 MMOL/L (3.5-5.1) L Chloride Level 105 MMOL/L (98-107) Carbon Dioxide Level 27 MMOL/L (21-32) Anion Gap 7 mmol/L (5-15) Blood Urea Nitrogen 11 mg/dL (7-18) Creatinine 0.6 MG/DL (0.55-1.30) Estimat Glomerular Filtration Rate > 60 mL/min (>60) Glucose Level 138 MG/DL (74-106) H Calcium Level 8.8 MG/DL (8.5-10.1) Magnesium Level 1.8 MG/DL (1.8-2.4) Height (Feet): 5 Height (Inches): 4.00 Weight (Pounds): 158 General Appearance: no apparent distress, alert Cardiovascular: normal rate Respiratory/Chest: other - mech vent Abdominal Exam: GT site - c/d/i Katina Garcia N.P. Jan 26, 2017 11:20
--- NOTE | 2017-01-26 11:20 | GI Progress Note ---
Assessment/Plan Problems: (1) Tracheostomy in place ICD Codes: Z93.0 - Tracheostomy in place SNOMED: 064066904 (2) History of CVA (cerebrovascular accident) ICD Codes: Z86.73 - History of CVA (cerebrovascular accident) SNOMED: 348997371 (3) Feeding by G-tube ICD Codes: Z93.1 - Feeding by G-tube SNOMED: 195097190 (4) GI bleed ICD Codes: K92.2 - Gastrointestinal hemorrhage, unspecified SNOMED: 27730299 (5) Vomiting ICD Codes: R11.10 - Vomiting, unspecified SNOMED: 123530511 (6) Coffee ground emesis ICD Codes: K92.0 - Hematemesis SNOMED: 279933207, 38129162 Status: unchanged Status Narrative Discussed with Dr. Rosas. Assessment/Plan CT AP reviewed >> see full report. - Gaseous distention of the transverse colon and sigmoid. No evident obstructive lesion related to these. Distention is slightly decreased from the previous study. Suspect functional in nature, baseline for this patient. - Gastric distention, uncertain significance as no downstream gastric obstruction is evident - Previously demonstrated rectal wall foreign body is no longer evident OB stool positive, stable H&H GTFs per dietary will consider colonic decompression if no BM > GoLytely 1L flush ppi monitor H&H, prn transfusion fu cdiff fu labs Subjective Subjective limited Objective Last 24 Hour Vital Signs Date Time Temp Pulse Resp B/P (MAP) Pulse Ox O2 Delivery O2 Flow Rate FiO2 01/26/17 10:56 75 15 Mechanical Ventilator 35 01/26/17 10:56 74 14 35 01/26/17 08:31 81 14 35 01/26/17 08:00 98.0 85 14 125/77 98 Mechanical Ventilator 35 01/26/17 07:40 82 01/26/17 07:40 35 01/26/17 06:31 80 14 35 01/26/17 05:14 82 14 35 01/26/17 04:58 83 01/26/17 04:00 97.5 81 14 140/90 99 Mechanical Ventilator 35 01/26/17 04:00 35 01/26/17 03:30 82 15 35 01/26/17 01:30 77 14 35 01/26/17 00:00 35 01/26/17 00:00 81 01/26/17 00:00 97.9 84 14 153/91 96 Mechanical Ventilator 35 01/25/17 23:30 79 14 35 01/25/17 21:30 76 14 35 01/25/17 20:00 86 01/25/17 20:00 97.5 78 14 146/90 97 Mechanical Ventilator 35 01/25/17 20:00 35 01/25/17 19:30 82 15 35 01/25/17 16:54 76 14 35 01/25/17 16:10 98.5 81 18 130/68 100 Mechanical Ventilator 35 01/25/17 15:19 78 01/25/17 15:19 35 01/25/17 14:58 69 14 35 01/25/17 13:01 75 14 35 01/25/17 12:00 98.8 75 15 126/76 99 Mechanical Ventilator 35 01/25/17 11:20 82 01/25/17 11:20 35 Laboratory Tests Test 01/26/17 05:00 White Blood Count 8.5 K/UL (4.8-10.8) Red Blood Count 4.04 M/UL (4.70-6.10) L Hemoglobin 12.4 G/DL (14.2-18.0) L Hematocrit 36.5 % (42.0-52.0) L Mean Corpuscular Volume 90 FL (80-99) Mean Corpuscular Hemoglobin 30.7 PG (27.0-31.0) Mean Corpuscular Hemoglobin Concent 33.9 G/DL (32.0-36.0) Red Cell Distribution Width 13.0 % (11.6-14.8) Platelet Count 236 K/UL (150-450) Mean Platelet Volume 10.7 FL (6.5-10.1) H Neutrophils (%) (Auto) 59.6 % (45.0-75.0) Lymphocytes (%) (Auto) 20.3 % (20.0-45.0) Monocytes (%) (Auto) 11.8 % (1.0-10.0) H Eosinophils (%) (Auto) 6.7 % (0.0-3.0) H Basophils (%) (Auto) 1.6 % (0.0-2.0) Sodium Level 139 MMOL/L (136-145) Potassium Level 3.4 MMOL/L (3.5-5.1) L Chloride Level 105 MMOL/L (98-107) Carbon Dioxide Level 27 MMOL/L (21-32) Anion Gap 7 mmol/L (5-15) Blood Urea Nitrogen 11 mg/dL (7-18) Creatinine 0.6 MG/DL (0.55-1.30) Estimat Glomerular Filtration Rate > 60 mL/min (>60) Glucose Level 138 MG/DL (74-106) H Calcium Level 8.8 MG/DL (8.5-10.1) Magnesium Level 1.8 MG/DL (1.8-2.4) Height (Feet): 5 Height (Inches): 4.00 Weight (Pounds): 158 General Appearance: no apparent distress, alert Cardiovascular: normal rate Respiratory/Chest: other - mech vent Abdominal Exam: GT site - c/d/i Katina Garcia N.P. Jan 26, 2017 11:20
--- NOTE | 2017-01-26 11:20 | GI Progress Note ---
Assessment/Plan Problems: (1) Tracheostomy in place ICD Codes: Z93.0 - Tracheostomy in place SNOMED: 459926633 (2) History of CVA (cerebrovascular accident) ICD Codes: Z86.73 - History of CVA (cerebrovascular accident) SNOMED: 427708947 (3) Feeding by G-tube ICD Codes: Z93.1 - Feeding by G-tube SNOMED: 387062422 (4) GI bleed ICD Codes: K92.2 - Gastrointestinal hemorrhage, unspecified SNOMED: 74505854 (5) Vomiting ICD Codes: R11.10 - Vomiting, unspecified SNOMED: 284657862 (6) Coffee ground emesis ICD Codes: K92.0 - Hematemesis SNOMED: 491122882, 94617253 Status: unchanged Status Narrative Discussed with Dr. Rosas. Assessment/Plan CT AP reviewed >> see full report. - Gaseous distention of the transverse colon and sigmoid. No evident obstructive lesion related to these. Distention is slightly decreased from the previous study. Suspect functional in nature, baseline for this patient. - Gastric distention, uncertain significance as no downstream gastric obstruction is evident - Previously demonstrated rectal wall foreign body is no longer evident OB stool positive, stable H&H GTFs per dietary will consider colonic decompression if no BM > GoLytely 1L flush ppi monitor H&H, prn transfusion fu cdiff fu labs Subjective Subjective limited Objective Last 24 Hour Vital Signs Date Time Temp Pulse Resp B/P (MAP) Pulse Ox O2 Delivery O2 Flow Rate FiO2 01/26/17 10:56 75 15 Mechanical Ventilator 35 01/26/17 10:56 74 14 35 01/26/17 08:31 81 14 35 01/26/17 08:00 98.0 85 14 125/77 98 Mechanical Ventilator 35 01/26/17 07:40 82 01/26/17 07:40 35 01/26/17 06:31 80 14 35 01/26/17 05:14 82 14 35 01/26/17 04:58 83 01/26/17 04:00 97.5 81 14 140/90 99 Mechanical Ventilator 35 01/26/17 04:00 35 01/26/17 03:30 82 15 35 01/26/17 01:30 77 14 35 01/26/17 00:00 35 01/26/17 00:00 81 01/26/17 00:00 97.9 84 14 153/91 96 Mechanical Ventilator 35 01/25/17 23:30 79 14 35 01/25/17 21:30 76 14 35 01/25/17 20:00 86 01/25/17 20:00 97.5 78 14 146/90 97 Mechanical Ventilator 35 01/25/17 20:00 35 01/25/17 19:30 82 15 35 01/25/17 16:54 76 14 35 01/25/17 16:10 98.5 81 18 130/68 100 Mechanical Ventilator 35 01/25/17 15:19 78 01/25/17 15:19 35 01/25/17 14:58 69 14 35 01/25/17 13:01 75 14 35 01/25/17 12:00 98.8 75 15 126/76 99 Mechanical Ventilator 35 01/25/17 11:20 82 01/25/17 11:20 35 Laboratory Tests Test 01/26/17 05:00 White Blood Count 8.5 K/UL (4.8-10.8) Red Blood Count 4.04 M/UL (4.70-6.10) L Hemoglobin 12.4 G/DL (14.2-18.0) L Hematocrit 36.5 % (42.0-52.0) L Mean Corpuscular Volume 90 FL (80-99) Mean Corpuscular Hemoglobin 30.7 PG (27.0-31.0) Mean Corpuscular Hemoglobin Concent 33.9 G/DL (32.0-36.0) Red Cell Distribution Width 13.0 % (11.6-14.8) Platelet Count 236 K/UL (150-450) Mean Platelet Volume 10.7 FL (6.5-10.1) H Neutrophils (%) (Auto) 59.6 % (45.0-75.0) Lymphocytes (%) (Auto) 20.3 % (20.0-45.0) Monocytes (%) (Auto) 11.8 % (1.0-10.0) H Eosinophils (%) (Auto) 6.7 % (0.0-3.0) H Basophils (%) (Auto) 1.6 % (0.0-2.0) Sodium Level 139 MMOL/L (136-145) Potassium Level 3.4 MMOL/L (3.5-5.1) L Chloride Level 105 MMOL/L (98-107) Carbon Dioxide Level 27 MMOL/L (21-32) Anion Gap 7 mmol/L (5-15) Blood Urea Nitrogen 11 mg/dL (7-18) Creatinine 0.6 MG/DL (0.55-1.30) Estimat Glomerular Filtration Rate > 60 mL/min (>60) Glucose Level 138 MG/DL (74-106) H Calcium Level 8.8 MG/DL (8.5-10.1) Magnesium Level 1.8 MG/DL (1.8-2.4) Height (Feet): 5 Height (Inches): 4.00 Weight (Pounds): 158 General Appearance: no apparent distress, alert Cardiovascular: normal rate Respiratory/Chest: other - mech vent Abdominal Exam: GT site - c/d/i Katina Garcia N.P. Jan 26, 2017 11:20
[2017-01-26 12:00] VITALS: BP 115/78
--- NOTE | 2017-01-26 12:54 | Pulmonology Progress Note ---
Assessment/Plan Problems: (1) GI bleed (2) Sepsis (3) Chronic respiratory failure (4) Feeding by G-tube (5) detention resident (6) Tracheostomy in place Respiratory: monitor respiratory rate Cardiac: continue pressors, continue to monitor HR/BP Renal: F/U I&O Infectious Disease: check cultures, continue antibiotics Gastrointestinal: continue feedings/current rate Endocrine: check TSH Neurologic: PRN Morphine Prophylaxis: Protonix Notes Reviewed: sign language translator, renal Discussed with: nurses, rehabilitation caseworker Subjective ROS Limited/Unobtainable: No Constitutional: Reports: no symptoms HEENT: Repors: no symptoms Respiratory: Reports: no symptoms Allergies: Coded Allergies: OXYTETRACYCLINE (Unverified Allergy, Unknown, 09/05/13) PENICILLINS (Unverified Allergy, Unknown, 09/05/13) Uncoded Allergies: PLASTIC TAPE (Allergy, Mild, ITCHINESS, 08/08/15) MEDICAL TAPE (Allergy, Unknown, 12/10/16) Objective Last 24 Hour Vital Signs Date Time Temp Pulse Resp B/P (MAP) Pulse Ox O2 Delivery O2 Flow Rate FiO2 01/26/17 12:00 35 01/26/17 12:00 97.3 89 14 115/78 97 Mechanical Ventilator 35 01/26/17 10:56 75 15 Mechanical Ventilator 35 01/26/17 10:56 74 14 35 01/26/17 08:31 81 14 35 01/26/17 08:00 98.0 85 14 125/77 98 Mechanical Ventilator 35 01/26/17 07:40 82 01/26/17 07:40 35 01/26/17 06:31 80 14 35 01/26/17 05:14 82 14 35 01/26/17 04:58 83 01/26/17 04:00 97.5 81 14 140/90 99 Mechanical Ventilator 35 01/26/17 04:00 35 01/26/17 03:30 82 15 35 01/26/17 01:30 77 14 35 01/26/17 00:00 35 01/26/17 00:00 81 01/26/17 00:00 97.9 84 14 153/91 96 Mechanical Ventilator 35 01/25/17 23:30 79 14 35 01/25/17 21:30 76 14 35 01/25/17 20:00 86 01/25/17 20:00 97.5 78 14 146/90 97 Mechanical Ventilator 35 01/25/17 20:00 35 01/25/17 19:30 82 15 35 01/25/17 16:54 76 14 35 01/25/17 16:10 98.5 81 18 130/68 100 Mechanical Ventilator 35 01/25/17 15:19 78 01/25/17 15:19 35 01/25/17 14:58 69 14 35 01/25/17 13:01 75 14 35 General Appearance: WD/WN HEENT: normocephalic Respiratory/Chest: chest wall non-tender, lungs clear Cardiovascular: normal peripheral pulses, normal rate Abdomen: normal bowel sounds, soft, non tender Genitourinary: normal external genitalia Extremities: no cyanosis 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, abnormal gait Lymphatic: no neck adenopathy Microbiology Date/Time Source Procedure Growth Status 01/23/17 15:00 Blood Blood Culture - Preliminary Staphylococcus Sp Coag Neg Resulted 01/23/17 15:00 Blood Blood Culture - Preliminary NO GROWTH AFTER 48 HOURS Resulted Laboratory Tests 01/26/17 05:00: White Blood Count 8.5, Red Blood Count 4.04L, Hemoglobin 12.4L, Hematocrit 36.5L , Mean Corpuscular Volume 90, Mean Corpuscular Hemoglobin 30.7, Mean Corpuscular Hemoglobin Concent 33.9, Red Cell Distribution Width 13.0, Platelet Count 236, Mean Platelet Volume 10.7H, Neutrophils (%) (Auto) 59.6, Lymphocytes (%) (Auto) 20.3, Monocytes (%) (Auto) 11.8H, Eosinophils (%) (Auto) 6.7H, Basophils (%) (Auto) 1.6, Sodium Level 139, Potassium Level 3.4L, Chloride Level 105, Carbon Dioxide Level 27, Anion Gap 7, Blood Urea Nitrogen 11, Creatinine 0.6, Estimat Glomerular Filtration Rate > 60, Glucose Level 138H, Calcium Level 8.8, Magnesium Level 1.8 Current Medications Medications (Trade) Dose Ordered Sig/Sima Route PRN Reason Start Time Stop Time Status Last Admin Dose Admin Acetaminophen (Tylenol) 650 mg Q4H PRN ORAL FEVER 01/21/17 12:45 02/20/17 12:44 Albuterol/ Ipratropium (Albuterol/ Ipratropium) 3 ml Q4H PRN HHN Shortness of Breath 01/24/17 16:45 01/29/17 16:44 Aztreonam 1 gm/ Dextrose 55 ml @ 110 mls/hr EVERY 8 HOURS IVPB 01/22/17 18:00 01/29/17 17:59 01/26/17 06:27 Chlorhexidine Gluconate (Paulina-Hex 2%) 1 applic DAILY@2000 TOPIC 01/22/17 20:00 02/21/17 19:59 01/25/17 20:44 Dextrose (Dextrose 50%) STAT PRN IV Hypoglycemia 01/21/17 12:45 02/20/17 12:44 Lorazepam (Ativan 2mg/ml 1ml) 2 mg EVERY 2 HOURS PRN IV For Anxiety 01/21/17 12:45 01/28/17 12:44 Morphine Sulfate (Morphine Sulfate) 4 mg EVERY 4 HOURS PRN IVP Severe Pain (Pain Scale 7-10) 01/21/17 12:45 01/28/17 12:44 Ondansetron HCl (Zofran) 4 mg Q6H PRN IVP Nausea & Vomiting 01/21/17 12:45 02/20/17 12:44 Pantoprazole (Protonix) 40 mg DAILY IVP 01/24/17 09:00 02/23/17 08:59 01/26/17 08:48 Polyethylene Glycol (Miralax) 17 gm BEDTIME GT 01/22/17 21:00 02/21/17 20:59 01/25/17 20:45 Polyethylene Glycol (Miralax) 17 gm DAILYPRN PRN ORAL Constipation 01/21/17 12:45 02/20/17 12:44 Sodium Chloride 1,000 ml @ 75 mls/hr [id number] IV 01/21/17 15:00 02/20/17 14:59 01/26/17 02:07 Vancomycin HCl (Vanco rx to dose) 1 ea DAILY PRN MISC Per rx protocol 01/25/17 12:30 02/24/17 12:29 Vancomycin HCl 1 gm/Dextrose 275 ml @ 183.708 mls/hr Q12HR@0230,1430 IVPB 01/26/17 02:30 01/31/17 02:29 01/26/17 02:50 ALBANIA CRAMER Jan 26, 2017 12:54
--- NOTE | 2017-01-26 12:54 | Pulmonology Progress Note ---
Assessment/Plan Problems: (1) GI bleed (2) Sepsis (3) Chronic respiratory failure (4) Feeding by G-tube (5) jail resident (6) Tracheostomy in place Respiratory: monitor respiratory rate Cardiac: continue pressors, continue to monitor HR/BP Renal: F/U I&O Infectious Disease: check cultures, continue antibiotics Gastrointestinal: continue feedings/current rate Endocrine: check TSH Neurologic: PRN Morphine Prophylaxis: Protonix Notes Reviewed: endoscopy support specialist, renal Discussed with: nurses, behavioral health case manager Subjective ROS Limited/Unobtainable: No Constitutional: Reports: no symptoms HEENT: Repors: no symptoms Respiratory: Reports: no symptoms Allergies: Coded Allergies: OXYTETRACYCLINE (Unverified Allergy, Unknown, 09/05/13) PENICILLINS (Unverified Allergy, Unknown, 09/05/13) Uncoded Allergies: PLASTIC TAPE (Allergy, Mild, ITCHINESS, 08/08/15) MEDICAL TAPE (Allergy, Unknown, 12/10/16) Objective Last 24 Hour Vital Signs Date Time Temp Pulse Resp B/P (MAP) Pulse Ox O2 Delivery O2 Flow Rate FiO2 01/26/17 12:00 35 01/26/17 12:00 97.3 89 14 115/78 97 Mechanical Ventilator 35 01/26/17 10:56 75 15 Mechanical Ventilator 35 01/26/17 10:56 74 14 35 01/26/17 08:31 81 14 35 01/26/17 08:00 98.0 85 14 125/77 98 Mechanical Ventilator 35 01/26/17 07:40 82 01/26/17 07:40 35 01/26/17 06:31 80 14 35 01/26/17 05:14 82 14 35 01/26/17 04:58 83 01/26/17 04:00 97.5 81 14 140/90 99 Mechanical Ventilator 35 01/26/17 04:00 35 01/26/17 03:30 82 15 35 01/26/17 01:30 77 14 35 01/26/17 00:00 35 01/26/17 00:00 81 01/26/17 00:00 97.9 84 14 153/91 96 Mechanical Ventilator 35 01/25/17 23:30 79 14 35 01/25/17 21:30 76 14 35 01/25/17 20:00 86 01/25/17 20:00 97.5 78 14 146/90 97 Mechanical Ventilator 35 01/25/17 20:00 35 01/25/17 19:30 82 15 35 01/25/17 16:54 76 14 35 01/25/17 16:10 98.5 81 18 130/68 100 Mechanical Ventilator 35 01/25/17 15:19 78 01/25/17 15:19 35 01/25/17 14:58 69 14 35 01/25/17 13:01 75 14 35 General Appearance: WD/WN HEENT: normocephalic Respiratory/Chest: chest wall non-tender, lungs clear Cardiovascular: normal peripheral pulses, normal rate Abdomen: normal bowel sounds, soft, non tender Genitourinary: normal external genitalia Extremities: no cyanosis 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, abnormal gait Lymphatic: no neck adenopathy Microbiology Date/Time Source Procedure Growth Status 01/23/17 15:00 Blood Blood Culture - Preliminary Staphylococcus Sp Coag Neg Resulted 01/23/17 15:00 Blood Blood Culture - Preliminary NO GROWTH AFTER 48 HOURS Resulted Laboratory Tests 01/26/17 05:00: White Blood Count 8.5, Red Blood Count 4.04L, Hemoglobin 12.4L, Hematocrit 36.5L , Mean Corpuscular Volume 90, Mean Corpuscular Hemoglobin 30.7, Mean Corpuscular Hemoglobin Concent 33.9, Red Cell Distribution Width 13.0, Platelet Count 236, Mean Platelet Volume 10.7H, Neutrophils (%) (Auto) 59.6, Lymphocytes (%) (Auto) 20.3, Monocytes (%) (Auto) 11.8H, Eosinophils (%) (Auto) 6.7H, Basophils (%) (Auto) 1.6, Sodium Level 139, Potassium Level 3.4L, Chloride Level 105, Carbon Dioxide Level 27, Anion Gap 7, Blood Urea Nitrogen 11, Creatinine 0.6, Estimat Glomerular Filtration Rate > 60, Glucose Level 138H, Calcium Level 8.8, Magnesium Level 1.8 Current Medications Medications (Trade) Dose Ordered Sig/Sima Route PRN Reason Start Time Stop Time Status Last Admin Dose Admin Acetaminophen (Tylenol) 650 mg Q4H PRN ORAL FEVER 01/21/17 12:45 02/20/17 12:44 Albuterol/ Ipratropium (Albuterol/ Ipratropium) 3 ml Q4H PRN HHN Shortness of Breath 01/24/17 16:45 01/29/17 16:44 Aztreonam 1 gm/ Dextrose 55 ml @ 110 mls/hr EVERY 8 HOURS IVPB 01/22/17 18:00 01/29/17 17:59 01/26/17 06:27 Chlorhexidine Gluconate (Paulina-Hex 2%) 1 applic DAILY@2000 TOPIC 01/22/17 20:00 02/21/17 19:59 01/25/17 20:44 Dextrose (Dextrose 50%) STAT PRN IV Hypoglycemia 01/21/17 12:45 02/20/17 12:44 Lorazepam (Ativan 2mg/ml 1ml) 2 mg EVERY 2 HOURS PRN IV For Anxiety 01/21/17 12:45 01/28/17 12:44 Morphine Sulfate (Morphine Sulfate) 4 mg EVERY 4 HOURS PRN IVP Severe Pain (Pain Scale 7-10) 01/21/17 12:45 01/28/17 12:44 Ondansetron HCl (Zofran) 4 mg Q6H PRN IVP Nausea & Vomiting 01/21/17 12:45 02/20/17 12:44 Pantoprazole (Protonix) 40 mg DAILY IVP 01/24/17 09:00 02/23/17 08:59 01/26/17 08:48 Polyethylene Glycol (Miralax) 17 gm BEDTIME GT 01/22/17 21:00 02/21/17 20:59 01/25/17 20:45 Polyethylene Glycol (Miralax) 17 gm DAILYPRN PRN ORAL Constipation 01/21/17 12:45 02/20/17 12:44 Sodium Chloride 1,000 ml @ 75 mls/hr [id number] IV 01/21/17 15:00 02/20/17 14:59 01/26/17 02:07 Vancomycin HCl (Vanco rx to dose) 1 ea DAILY PRN MISC Per rx protocol 01/25/17 12:30 02/24/17 12:29 Vancomycin HCl 1 gm/Dextrose 275 ml @ 183.708 mls/hr Q12HR@0230,1430 IVPB 01/26/17 02:30 01/31/17 02:29 01/26/17 02:50 ALBAN[place] CRAMER Jan 26, 2017 12:54
--- NOTE | 2017-01-26 12:54 | Pulmonology Progress Note ---
Assessment/Plan Problems: (1) GI bleed (2) Sepsis (3) Chronic respiratory failure (4) Feeding by G-tube (5) longterm resident (6) Tracheostomy in place Respiratory: monitor respiratory rate Cardiac: continue pressors, continue to monitor HR/BP Renal: F/U I&O Infectious Disease: check cultures, continue antibiotics Gastrointestinal: continue feedings/current rate Endocrine: check TSH Neurologic: PRN Morphine Prophylaxis: Protonix Notes Reviewed: sprinkler fitter helper, renal Discussed with: nurses, casework supervisor Subjective ROS Limited/Unobtainable: No Constitutional: Reports: no symptoms HEENT: Repors: no symptoms Respiratory: Reports: no symptoms Allergies: Coded Allergies: OXYTETRACYCLINE (Unverified Allergy, Unknown, 09/05/13) PENICILLINS (Unverified Allergy, Unknown, 09/05/13) Uncoded Allergies: PLASTIC TAPE (Allergy, Mild, ITCHINESS, 08/08/15) MEDICAL TAPE (Allergy, Unknown, 12/10/16) Objective Last 24 Hour Vital Signs Date Time Temp Pulse Resp B/P (MAP) Pulse Ox O2 Delivery O2 Flow Rate FiO2 01/26/17 12:00 35 01/26/17 12:00 97.3 89 14 115/78 97 Mechanical Ventilator 35 01/26/17 10:56 75 15 Mechanical Ventilator 35 01/26/17 10:56 74 14 35 01/26/17 08:31 81 14 35 01/26/17 08:00 98.0 85 14 125/77 98 Mechanical Ventilator 35 01/26/17 07:40 82 01/26/17 07:40 35 01/26/17 06:31 80 14 35 01/26/17 05:14 82 14 35 01/26/17 04:58 83 01/26/17 04:00 97.5 81 14 140/90 99 Mechanical Ventilator 35 01/26/17 04:00 35 01/26/17 03:30 82 15 35 01/26/17 01:30 77 14 35 01/26/17 00:00 35 01/26/17 00:00 81 01/26/17 00:00 97.9 84 14 153/91 96 Mechanical Ventilator 35 01/25/17 23:30 79 14 35 01/25/17 21:30 76 14 35 01/25/17 20:00 86 01/25/17 20:00 97.5 78 14 146/90 97 Mechanical Ventilator 35 01/25/17 20:00 35 01/25/17 19:30 82 15 35 01/25/17 16:54 76 14 35 01/25/17 16:10 98.5 81 18 130/68 100 Mechanical Ventilator 35 01/25/17 15:19 78 01/25/17 15:19 35 01/25/17 14:58 69 14 35 01/25/17 13:01 75 14 35 General Appearance: WD/WN HEENT: normocephalic Respiratory/Chest: chest wall non-tender, lungs clear Cardiovascular: normal peripheral pulses, normal rate Abdomen: normal bowel sounds, soft, non tender Genitourinary: normal external genitalia Extremities: no cyanosis Neurologic/Psychiatric: proof sorter II-XII grossly normal, abnormal gait Lymphatic: no neck adenopathy Microbiology Date/Time Source Procedure Growth Status 01/23/17 15:00 Blood Blood Culture - Preliminary Staphylococcus Sp Coag Neg Resulted 01/23/17 15:00 Blood Blood Culture - Preliminary NO GROWTH AFTER 48 HOURS Resulted Laboratory Tests 01/26/17 05:00: White Blood Count 8.5, Red Blood Count 4.04L, Hemoglobin 12.4L, Hematocrit 36.5L , Mean Corpuscular Volume 90, Mean Corpuscular Hemoglobin 30.7, Mean Corpuscular Hemoglobin Concent 33.9, Red Cell Distribution Width 13.0, Platelet Count 236, Mean Platelet Volume 10.7H, Neutrophils (%) (Auto) 59.6, Lymphocytes (%) (Auto) 20.3, Monocytes (%) (Auto) 11.8H, Eosinophils (%) (Auto) 6.7H, Basophils (%) (Auto) 1.6, Sodium Level 139, Potassium Level 3.4L, Chloride Level 105, Carbon Dioxide Level 27, Anion Gap 7, Blood Urea Nitrogen 11, Creatinine 0.6, Estimat Glomerular Filtration Rate > 60, Glucose Level 138H, Calcium Level 8.8, Magnesium Level 1.8 Current Medications Medications (Trade) Dose Ordered Sig/Sima Route PRN Reason Start Time Stop Time Status Last Admin Dose Admin Acetaminophen (Tylenol) 650 mg Q4H PRN ORAL FEVER 01/21/17 12:45 02/20/17 12:44 Albuterol/ Ipratropium (Albuterol/ Ipratropium) 3 ml Q4H PRN HHN Shortness of Breath 01/24/17 16:45 01/29/17 16:44 Aztreonam 1 gm/ Dextrose 55 ml @ 110 mls/hr EVERY 8 HOURS IVPB 01/22/17 18:00 01/29/17 17:59 01/26/17 06:27 Chlorhexidine Gluconate (Paulina-Hex 2%) 1 applic DAILY@2000 TOPIC 01/22/17 20:00 02/21/17 19:59 01/25/17 20:44 Dextrose (Dextrose 50%) STAT PRN IV Hypoglycemia 01/21/17 12:45 02/20/17 12:44 Lorazepam (Ativan 2mg/ml 1ml) 2 mg EVERY 2 HOURS PRN IV For Anxiety 01/21/17 12:45 01/28/17 12:44 Morphine Sulfate (Morphine Sulfate) 4 mg EVERY 4 HOURS PRN IVP Severe Pain (Pain Scale 7-10) 01/21/17 12:45 01/28/17 12:44 Ondansetron HCl (Zofran) 4 mg Q6H PRN IVP Nausea & Vomiting 01/21/17 12:45 02/20/17 12:44 Pantoprazole (Protonix) 40 mg DAILY IVP 01/24/17 09:00 02/23/17 08:59 01/26/17 08:48 Polyethylene Glycol (Miralax) 17 gm BEDTIME GT 01/22/17 21:00 02/21/17 20:59 01/25/17 20:45 Polyethylene Glycol (Miralax) 17 gm DAILYPRN PRN ORAL Constipation 01/21/17 12:45 02/20/17 12:44 Sodium Chloride 1,000 ml @ 75 mls/hr [id number] IV 01/21/17 15:00 02/20/17 14:59 01/26/17 02:07 Vancomycin HCl (Vanco rx to dose) 1 ea DAILY PRN MISC Per rx protocol 01/25/17 12:30 02/24/17 12:29 Vancomycin HCl 1 gm/Dextrose 275 ml @ 183.708 mls/hr Q12HR@0230,1430 IVPB 01/26/17 02:30 01/31/17 02:29 01/26/17 02:50 ALBANIA CRAMER Jan 26, 2017 12:54
[2017-01-26 16:00] VITALS: BP 130/85
[2017-01-26] MEDS ORDERED: KCl 10% 40mEq/30ml liquid PEG ONE (17:00)
--- NOTE | 2017-01-26 19:30 | Cardiology Report ---
APPROVED REPORT EXAM: Two-dimensional and M-mode echocardiogram with Doppler and color Doppler. INDICATION Endocarditis Other Information Technically limited study due to poor acoustic windows Technically difficult and limited study due to very poor acoustical windows. Subcostal views only with G-Tube blocking scan area. Study quality precludes accurate assessment of regional wall motion. M-mode measurements of left ventricle not obtainable due to cardiac position (angle) Normal left ventricular chamber size, systolic function and wall motion to extent visualized. Left ventricular ejection fraction estimated to be grossly normal. Mild left atrial enlargement. Right cardiac chamber sizes are within normal limits.
[2017-01-26 20:00] VITALS: BP 138/88
[2017-01-26] MEDS: Dyna-Hex 2% Top Sol 2oz TOPIC SCH (22:43)
[2017-01-26] MEDS: Miralax 17gm pkt GT SCH (22:43)
[2017-01-27] VITALS: BP 140/89
[2017-01-27] MEDS: Vancomycin 1gm/D5W 275ml IVPB SCH ×4 (01:44→15:06)
[2017-01-27 02:26] LABS: BASOPHILS % (AUTO) 1.3 % (0.0-2.0); EOSINOPHILS % (AUTO) 7.7 % (0.0-3.0); HEMOGLOBIN 12.6 G/DL (14.2-18.0); LYMPHOCYTES % (AUTO) 26.5 % (20.0-45.0); MEAN CORPUSCULAR VOLUME 92 FL (80-99); MONOCYTES % (AUTO) 9.9 % (1.0-10.0); NEUTROPHILS % (AUTO) 54.6 % (45.0-75.0); PLATELET COUNT 242 K/UL (150-450); RED BLOOD COUNT 4.26 M/UL (4.70-6.10); WHITE BLOOD COUNT 7.8 K/UL (4.8-10.8)
[2017-01-27 03:03] LABS: ANION GAP 9 mmol/L (5-15); BLOOD UREA NITROGEN 12 mg/dL (7-18); CARBON DIOXIDE 26 MMOL/L (21-32); CHLORIDE 106 MMOL/L (98-107); CREATININE 0.6 MG/DL (0.55-1.30); POTASSIUM 3.7 MMOL/L (3.5-5.1); SODIUM 141 MMOL/L (136-145)
[2017-01-27 04:00] VITALS: BP 152/98
[2017-01-27] MEDS: Aztreonam 1gm/D5W 55ml IVPB SCH ×4 (05:50→13:15)
[2017-01-27 08:00] VITALS: BP 120/76
--- NOTE | 2017-01-27 08:18 | Pulmonology Progress Note ---
Assessment/Plan Problems: (1) GI bleed (2) Sepsis (3) Chronic respiratory failure (4) Feeding by G-tube (5) [facility] resident (6) Tracheostomy in place Respiratory: monitor respiratory rate, CXR Cardiac: continue to monitor HR/BP Renal: F/U I&O, keep IV fluid, check electrolytes Infectious Disease: check cultures Gastrointestinal: continue feedings/current rate Endocrine: monitor blood sugar, check HgA1C Hematologic: monitor H/H, transfuse if hgb<8.5 Neurologic: PRN Ativan, keep patient comfortable Affect: PRN ativan Prophylaxis: Protonix, Heparin Time Spent (Minutes): 40 Notes Reviewed: cardio Discussed with: nurses, consultants, field case manager Subjective ROS Limited/Unobtainable: No Constitutional: Reports: no symptoms HEENT: Repors: no symptoms Respiratory: Reports: no symptoms Allergies: Coded Allergies: OXYTETRACYCLINE (Unverified Allergy, Unknown, 09/05/13) PENICILLINS (Unverified Allergy, Unknown, 09/05/13) Uncoded Allergies: PLASTIC TAPE (Allergy, Mild, ITCHINESS, 08/08/15) MEDICAL TAPE (Allergy, Unknown, 12/10/16) Objective Last 24 Hour Vital Signs Date Time Temp Pulse Resp B/P (MAP) Pulse Ox O2 Delivery O2 Flow Rate FiO2 01/27/17 08:00 97.7 74 15 120/76 98 Mechanical Ventilator 35 01/27/17 08:00 35 01/27/17 07:24 67 14 35 01/27/17 05:25 77 15 35 01/27/17 04:00 97.5 78 14 152/98 96 Mechanical Ventilator 35 01/27/17 04:00 79 01/27/17 04:00 35 01/27/17 03:23 91 17 35 01/27/17 01:30 75 14 35 01/27/17 00:00 77 01/27/17 00:00 98.0 76 14 140/89 99 Mechanical Ventilator 35 01/27/17 00:00 35 01/26/17 23:17 75 14 35 01/26/17 21:30 80 14 35 01/26/17 20:00 35 01/26/17 20:00 98.4 74 14 138/88 99 Mechanical Ventilator 35 01/26/17 20:00 75 01/26/17 19:30 72 14 35 01/26/17 16:33 72 14 35 01/26/17 16:00 35 01/26/17 16:00 74 01/26/17 16:00 97.3 75 14 130/85 99 Mechanical Ventilator 35 01/26/17 14:46 79 14 35 01/26/17 12:41 76 14 35 01/26/17 12:00 35 01/26/17 12:00 78 01/26/17 12:00 97.3 89 14 115/78 97 Mechanical Ventilator 35 01/26/17 10:56 75 15 Mechanical Ventilator 35 01/26/17 10:56 74 14 35 01/26/17 08:31 81 14 35 General Appearance: WD/WN, cachetic HEENT: normocephalic, atraumatic, PERRL Respiratory/Chest: lungs clear Cardiovascular: normal peripheral pulses, normal rate Abdomen: normal bowel sounds, no organomegaly Genitourinary: normal external genitalia Extremities: no clubbing Neurologic/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: 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 normal Lymphatic: no neck adenopathy Laboratory Tests 01/27/17 02:00: White Blood Count 7.8, Red Blood Count 4.26L, Hemoglobin 12.6L, Hematocrit 39.0L , Mean Corpuscular Volume 92, Mean Corpuscular Hemoglobin 29.6, Mean Corpuscular Hemoglobin Concent 32.3, Red Cell Distribution Width 13.0, Platelet Count 242, Mean Platelet Volume 10.3H, Neutrophils (%) (Auto) 54.6, Lymphocytes (%) (Auto) 26.5, Monocytes (%) (Auto) 9.9, Eosinophils (%) (Auto) 7.7H, Basophils (%) (Auto) 1.3, Sodium Level 141, Potassium Level 3.7, Chloride Level 106, Carbon Dioxide Level 26, Anion Gap 9, Blood Urea Nitrogen 12, Creatinine 0.6, Estimat Glomerular Filtration Rate > 60, Glucose Level 128H, Calcium Level 9.0, Vancomycin Level Trough 14.4H Current Medications Medications (Trade) Dose Ordered Sig/Sima Route PRN Reason Start Time Stop Time Status Last Admin Dose Admin Acetaminophen (Tylenol) 650 mg Q4H PRN ORAL FEVER 01/21/17 12:45 02/20/17 12:44 Albuterol/ Ipratropium (Albuterol/ Ipratropium) 3 ml Q4H PRN HHN Shortness of Breath 01/24/17 16:45 01/29/17 16:44 Aztreonam 1 gm/ Dextrose 55 ml @ 110 mls/hr EVERY 8 HOURS IVPB 01/22/17 18:00 01/29/17 17:59 01/27/17 05:50 Chlorhexidine Gluconate (Paulina-Hex 2%) 1 applic DAILY@2000 TOPIC 01/22/17 20:00 02/21/17 19:59 01/26/17 22:43 Dextrose (Dextrose 50%) STAT PRN IV Hypoglycemia 01/21/17 12:45 02/20/17 12:44 Lorazepam (Ativan 2mg/ml 1ml) 2 mg EVERY 2 HOURS PRN IV For Anxiety 01/21/17 12:45 01/28/17 12:44 Morphine Sulfate (Morphine Sulfate) 4 mg EVERY 4 HOURS PRN IVP Severe Pain (Pain Scale 7-10) 01/21/17 12:45 01/28/17 12:44 Ondansetron HCl (Zofran) 4 mg Q6H PRN IVP Nausea & Vomiting 01/21/17 12:45 02/20/17 12:44 Pantoprazole (Protonix) 40 mg DAILY IVP 01/24/17 09:00 02/23/17 08:59 01/26/17 08:48 Polyethylene Glycol (Miralax) 17 gm BEDTIME GT 01/22/17 21:00 02/21/17 20:59 01/26/17 22:43 Polyethylene Glycol (Miralax) 17 gm DAILYPRN PRN ORAL Constipation 01/21/17 12:45 02/20/17 12:44 Sodium Chloride 1,000 ml @ 75 mls/hr [id number] IV 01/21/17 15:00 02/20/17 14:59 01/27/17 03:50 Vancomycin HCl (Vanco rx to dose) 1 ea DAILY PRN MISC Per rx protocol 01/25/17 12:30 02/24/17 12:29 Vancomycin HCl 1 gm/Dextrose 275 ml @ 183.708 mls/hr Q12HR@0230,1430 IVPB 01/26/17 02:30 01/31/17 02:29 01/27/17 01:44 ALB[place] CRAMER Jan 27, 2017 08:18
--- NOTE | 2017-01-27 08:18 | Pulmonology Progress Note ---
Assessment/Plan Problems: (1) GI bleed (2) Sepsis (3) Chronic respiratory failure (4) Feeding by G-tube (5) [facility] resident (6) Tracheostomy in place Respiratory: monitor respiratory rate, CXR Cardiac: continue to monitor HR/BP Renal: F/U I&O, keep IV fluid, check electrolytes Infectious Disease: check cultures Gastrointestinal: continue feedings/current rate Endocrine: monitor blood sugar, check HgA1C Hematologic: monitor H/H, transfuse if hgb<8.5 Neurologic: PRN Ativan, keep patient comfortable Affect: PRN ativan Prophylaxis: Protonix, Heparin Time Spent (Minutes): 40 Notes Reviewed: cardio Discussed with: nurses, consultants, rn case mgr Subjective ROS Limited/Unobtainable: No Constitutional: Reports: no symptoms HEENT: Repors: no symptoms Respiratory: Reports: no symptoms Allergies: Coded Allergies: OXYTETRACYCLINE (Unverified Allergy, Unknown, 09/05/13) PENICILLINS (Unverified Allergy, Unknown, 09/05/13) Uncoded Allergies: PLASTIC TAPE (Allergy, Mild, ITCHINESS, 08/08/15) MEDICAL TAPE (Allergy, Unknown, 12/10/16) Objective Last 24 Hour Vital Signs Date Time Temp Pulse Resp B/P (MAP) Pulse Ox O2 Delivery O2 Flow Rate FiO2 01/27/17 08:00 97.7 74 15 120/76 98 Mechanical Ventilator 35 01/27/17 08:00 35 01/27/17 07:24 67 14 35 01/27/17 05:25 77 15 35 01/27/17 04:00 97.5 78 14 152/98 96 Mechanical Ventilator 35 01/27/17 04:00 79 01/27/17 04:00 35 01/27/17 03:23 91 17 35 01/27/17 01:30 75 14 35 01/27/17 00:00 77 01/27/17 00:00 98.0 76 14 140/89 99 Mechanical Ventilator 35 01/27/17 00:00 35 01/26/17 23:17 75 14 35 01/26/17 21:30 80 14 35 01/26/17 20:00 35 01/26/17 20:00 98.4 74 14 138/88 99 Mechanical Ventilator 35 01/26/17 20:00 75 01/26/17 19:30 72 14 35 01/26/17 16:33 72 14 35 01/26/17 16:00 35 01/26/17 16:00 74 01/26/17 16:00 97.3 75 14 130/85 99 Mechanical Ventilator 35 01/26/17 14:46 79 14 35 01/26/17 12:41 76 14 35 01/26/17 12:00 35 01/26/17 12:00 78 01/26/17 12:00 97.3 89 14 115/78 97 Mechanical Ventilator 35 01/26/17 10:56 75 15 Mechanical Ventilator 35 01/26/17 10:56 74 14 35 01/26/17 08:31 81 14 35 General Appearance: WD/WN, cachetic HEENT: normocephalic, atraumatic, PERRL Respiratory/Chest: lungs clear Cardiovascular: normal peripheral pulses, normal rate Abdomen: normal bowel sounds, no organomegaly Genitourinary: normal external genitalia Extremities: no clubbing Neurologic/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 Lymphatic: no neck adenopathy Laboratory Tests 01/27/17 02:00: White Blood Count 7.8, Red Blood Count 4.26L, Hemoglobin 12.6L, Hematocrit 39.0L , Mean Corpuscular Volume 92, Mean Corpuscular Hemoglobin 29.6, Mean Corpuscular Hemoglobin Concent 32.3, Red Cell Distribution Width 13.0, Platelet Count 242, Mean Platelet Volume 10.3H, Neutrophils (%) (Auto) 54.6, Lymphocytes (%) (Auto) 26.5, Monocytes (%) (Auto) 9.9, Eosinophils (%) (Auto) 7.7H, Basophils (%) (Auto) 1.3, Sodium Level 141, Potassium Level 3.7, Chloride Level 106, Carbon Dioxide Level 26, Anion Gap 9, Blood Urea Nitrogen 12, Creatinine 0.6, Estimat Glomerular Filtration Rate > 60, Glucose Level 128H, Calcium Level 9.0, Vancomycin Level Trough 14.4H Current Medications Medications (Trade) Dose Ordered Sig/Sima Route PRN Reason Start Time Stop Time Status Last Admin Dose Admin Acetaminophen (Tylenol) 650 mg Q4H PRN ORAL FEVER 01/21/17 12:45 02/20/17 12:44 Albuterol/ Ipratropium (Albuterol/ Ipratropium) 3 ml Q4H PRN HHN Shortness of Breath 01/24/17 16:45 01/29/17 16:44 Aztreonam 1 gm/ Dextrose 55 ml @ 110 mls/hr EVERY 8 HOURS IVPB 01/22/17 18:00 01/29/17 17:59 01/27/17 05:50 Chlorhexidine Gluconate (Paulina-Hex 2%) 1 applic DAILY@2000 TOPIC 01/22/17 20:00 02/21/17 19:59 01/26/17 22:43 Dextrose (Dextrose 50%) STAT PRN IV Hypoglycemia 01/21/17 12:45 02/20/17 12:44 Lorazepam (Ativan 2mg/ml 1ml) 2 mg EVERY 2 HOURS PRN IV For Anxiety 01/21/17 12:45 01/28/17 12:44 Morphine Sulfate (Morphine Sulfate) 4 mg EVERY 4 HOURS PRN IVP Severe Pain (Pain Scale 7-10) 01/21/17 12:45 01/28/17 12:44 Ondansetron HCl (Zofran) 4 mg Q6H PRN IVP Nausea & Vomiting 01/21/17 12:45 02/20/17 12:44 Pantoprazole (Protonix) 40 mg DAILY IVP 01/24/17 09:00 02/23/17 08:59 01/26/17 08:48 Polyethylene Glycol (Miralax) 17 gm BEDTIME GT 01/22/17 21:00 02/21/17 20:59 01/26/17 22:43 Polyethylene Glycol (Miralax) 17 gm DAILYPRN PRN ORAL Constipation 01/21/17 12:45 02/20/17 12:44 Sodium Chloride 1,000 ml @ 75 mls/hr [id number] IV 01/21/17 15:00 02/20/17 14:59 01/27/17 03:50 Vancomycin HCl (Vanco rx to dose) 1 ea DAILY PRN MISC Per rx protocol 01/25/17 12:30 02/24/17 12:29 Vancomycin HCl 1 gm/Dextrose 275 ml @ 183.708 mls/hr Q12HR@0230,1430 IVPB 01/26/17 02:30 01/31/17 02:29 01/27/17 01:44 ALB[place] CRAMER Jan 27, 2017 08:18
[2017-01-27] MEDS: Pantoprazole Inj IVP SCH (09:04)
[2017-01-27] MEDS ORDERED: NS 275ml ONE (09:34)
[2017-01-27] MEDS ORDERED: 1/2 NS 1000ml IV ONE ×2 (09:34→17:59)
[2017-01-27 12:00] VITALS: BP 117/76
--- NOTE | 2017-01-27 12:41 | GI Progress Note ---
Assessment/Plan Problems: (1) Tracheostomy in place ICD Codes: Z93.0 - Tracheostomy in place SNOMED: 236229899 (2) History of CVA (cerebrovascular accident) ICD Codes: Z86.73 - History of CVA (cerebrovascular accident) SNOMED: 900240834 (3) Feeding by G-tube ICD Codes: Z93.1 - Feeding by G-tube SNOMED: 185068606 (4) GI bleed ICD Codes: K92.2 - Gastrointestinal hemorrhage, unspecified SNOMED: 64104957 (5) Vomiting ICD Codes: R11.10 - Vomiting, unspecified SNOMED: 035222454 (6) Coffee ground emesis ICD Codes: K92.0 - Hematemesis SNOMED: 123119721, 97507666 Status: unchanged Status Narrative Discussed with Dr. Rosas. Assessment/Plan CT AP reviewed >> see full report. - Gaseous distention of the transverse colon and sigmoid. No evident obstructive lesion related to these. Distention is slightly decreased from the previous study. Suspect functional in nature, baseline for this patient. - Gastric distention, uncertain significance as no downstream gastric obstruction is evident - Previously demonstrated rectal wall foreign body is no longer evident OB stool positive, stable H&H cdiff negative GTFs per dietary cont bowel regime ppi monitor H&H, prn transfusion fu labs Subjective Subjective limited Objective Last 24 Hour Vital Signs Date Time Temp Pulse Resp B/P (MAP) Pulse Ox O2 Delivery O2 Flow Rate FiO2 01/27/17 12:01 77 01/27/17 12:00 35 01/27/17 12:00 97.7 87 14 117/76 98 Mechanical Ventilator 35 01/27/17 11:12 85 14 35 01/27/17 09:23 86 14 35 01/27/17 08:00 97.7 74 15 120/76 98 Mechanical Ventilator 35 01/27/17 08:00 35 01/27/17 08:00 78 01/27/17 07:24 67 14 35 01/27/17 05:25 77 15 35 01/27/17 04:00 97.5 78 14 152/98 96 Mechanical Ventilator 35 01/27/17 04:00 79 01/27/17 04:00 35 01/27/17 03:23 91 17 35 01/27/17 01:30 75 14 35 01/27/17 00:00 77 01/27/17 00:00 98.0 76 14 140/89 99 Mechanical Ventilator 35 01/27/17 00:00 35 01/26/17 23:17 75 14 35 01/26/17 21:30 80 14 35 01/26/17 20:00 35 01/26/17 20:00 98.4 74 14 138/88 99 Mechanical Ventilator 35 01/26/17 20:00 75 01/26/17 19:30 72 14 35 01/26/17 16:33 72 14 35 01/26/17 16:00 35 01/26/17 16:00 74 01/26/17 16:00 97.3 75 14 130/85 99 Mechanical Ventilator 35 01/26/17 14:46 79 14 35 01/26/17 12:41 76 14 35 Intake and Output 01/27/17 01/28/17 19:00 07:00 Intake Total 735 ml Output Total 850 ml Balance -115 ml Intake Free Water 60 ml IV Total 375 ml Tube Feeding 300 ml Output Urine Total 750 ml Stool Total 100 ml Laboratory Tests Test 01/27/17 02:00 White Blood Count 7.8 K/UL (4.8-10.8) Red Blood Count 4.26 M/UL (4.70-6.10) L Hemoglobin 12.6 G/DL (14.2-18.0) L Hematocrit 39.0 % (42.0-52.0) L Mean Corpuscular Volume 92 FL (80-99) Mean Corpuscular Hemoglobin 29.6 PG (27.0-31.0) Mean Corpuscular Hemoglobin Concent 32.3 G/DL (32.0-36.0) Red Cell Distribution Width 13.0 % (11.6-14.8) Platelet Count 242 K/UL (150-450) Mean Platelet Volume 10.3 FL (6.5-10.1) H Neutrophils (%) (Auto) 54.6 % (45.0-75.0) Lymphocytes (%) (Auto) 26.5 % (20.0-45.0) Monocytes (%) (Auto) 9.9 % (1.0-10.0) Eosinophils (%) (Auto) 7.7 % (0.0-3.0) H Basophils (%) (Auto) 1.3 % (0.0-2.0) Sodium Level 141 MMOL/L (136-145) Potassium Level 3.7 MMOL/L (3.5-5.1) Chloride Level 106 MMOL/L (98-107) Carbon Dioxide Level 26 MMOL/L (21-32) Anion Gap 9 mmol/L (5-15) Blood Urea Nitrogen 12 mg/dL (7-18) Creatinine 0.6 MG/DL (0.55-1.30) Estimat Glomerular Filtration Rate > 60 mL/min (>60) Glucose Level 128 MG/DL (74-106) H Calcium Level 9.0 MG/DL (8.5-10.1) Vancomycin Level Trough 14.4 ug/mL (5.0-12.0) H Height (Feet): 5 Height (Inches): 4.00 Weight (Pounds): 158 General Appearance: no apparent distress Cardiovascular: normal rate Respiratory/Chest: normal breath sounds, no respiratory distress, other - mech vent Abdominal Exam: normal bowel sounds, non tender, soft, GT site - c/d/i Extremities: non-tender Katina Garcia N.P. Jan 27, 2017 12:41
--- NOTE | 2017-01-27 12:41 | GI Progress Note ---
Assessment/Plan Problems: (1) Tracheostomy in place ICD Codes: Z93.0 - Tracheostomy in place SNOMED: 462669880 (2) History of CVA (cerebrovascular accident) ICD Codes: Z86.73 - History of CVA (cerebrovascular accident) SNOMED: 230940250 (3) Feeding by G-tube ICD Codes: Z93.1 - Feeding by G-tube SNOMED: 871260882 (4) GI bleed ICD Codes: K92.2 - Gastrointestinal hemorrhage, unspecified SNOMED: 86205718 (5) Vomiting ICD Codes: R11.10 - Vomiting, unspecified SNOMED: 089493908 (6) Coffee ground emesis ICD Codes: K92.0 - Hematemesis SNOMED: 842613743, 82563817 Status: unchanged Status Narrative Discussed with Dr. Rosas. Assessment/Plan CT AP reviewed >> see full report. - Gaseous distention of the transverse colon and sigmoid. No evident obstructive lesion related to these. Distention is slightly decreased from the previous study. Suspect functional in nature, baseline for this patient. - Gastric distention, uncertain significance as no downstream gastric obstruction is evident - Previously demonstrated rectal wall foreign body is no longer evident OB stool positive, stable H&H cdiff negative GTFs per dietary cont bowel regime ppi monitor H&H, prn transfusion fu labs Subjective Subjective limited Objective Last 24 Hour Vital Signs Date Time Temp Pulse Resp B/P (MAP) Pulse Ox O2 Delivery O2 Flow Rate FiO2 01/27/17 12:01 77 01/27/17 12:00 35 01/27/17 12:00 97.7 87 14 117/76 98 Mechanical Ventilator 35 01/27/17 11:12 85 14 35 01/27/17 09:23 86 14 35 01/27/17 08:00 97.7 74 15 120/76 98 Mechanical Ventilator 35 01/27/17 08:00 35 01/27/17 08:00 78 01/27/17 07:24 67 14 35 01/27/17 05:25 77 15 35 01/27/17 04:00 97.5 78 14 152/98 96 Mechanical Ventilator 35 01/27/17 04:00 79 01/27/17 04:00 35 01/27/17 03:23 91 17 35 01/27/17 01:30 75 14 35 01/27/17 00:00 77 01/27/17 00:00 98.0 76 14 140/89 99 Mechanical Ventilator 35 01/27/17 00:00 35 01/26/17 23:17 75 14 35 01/26/17 21:30 80 14 35 01/26/17 20:00 35 01/26/17 20:00 98.4 74 14 138/88 99 Mechanical Ventilator 35 01/26/17 20:00 75 01/26/17 19:30 72 14 35 01/26/17 16:33 72 14 35 01/26/17 16:00 35 01/26/17 16:00 74 01/26/17 16:00 97.3 75 14 130/85 99 Mechanical Ventilator 35 01/26/17 14:46 79 14 35 01/26/17 12:41 76 14 35 Intake and Output 01/27/17 01/28/17 19:00 07:00 Intake Total 735 ml Output Total 850 ml Balance -115 ml Intake Free Water 60 ml IV Total 375 ml Tube Feeding 300 ml Output Urine Total 750 ml Stool Total 100 ml Laboratory Tests Test 01/27/17 02:00 White Blood Count 7.8 K/UL (4.8-10.8) Red Blood Count 4.26 M/UL (4.70-6.10) L Hemoglobin 12.6 G/DL (14.2-18.0) L Hematocrit 39.0 % (42.0-52.0) L Mean Corpuscular Volume 92 FL (80-99) Mean Corpuscular Hemoglobin 29.6 PG (27.0-31.0) Mean Corpuscular Hemoglobin Concent 32.3 G/DL (32.0-36.0) Red Cell Distribution Width 13.0 % (11.6-14.8) Platelet Count 242 K/UL (150-450) Mean Platelet Volume 10.3 FL (6.5-10.1) H Neutrophils (%) (Auto) 54.6 % (45.0-75.0) Lymphocytes (%) (Auto) 26.5 % (20.0-45.0) Monocytes (%) (Auto) 9.9 % (1.0-10.0) Eosinophils (%) (Auto) 7.7 % (0.0-3.0) H Basophils (%) (Auto) 1.3 % (0.0-2.0) Sodium Level 141 MMOL/L (136-145) Potassium Level 3.7 MMOL/L (3.5-5.1) Chloride Level 106 MMOL/L (98-107) Carbon Dioxide Level 26 MMOL/L (21-32) Anion Gap 9 mmol/L (5-15) Blood Urea Nitrogen 12 mg/dL (7-18) Creatinine 0.6 MG/DL (0.55-1.30) Estimat Glomerular Filtration Rate > 60 mL/min (>60) Glucose Level 128 MG/DL (74-106) H Calcium Level 9.0 MG/DL (8.5-10.1) Vancomycin Level Trough 14.4 ug/mL (5.0-12.0) H Height (Feet): 5 Height (Inches): 4.00 Weight (Pounds): 158 General Appearance: no apparent distress Cardiovascular: normal rate Respiratory/Chest: normal breath sounds, no respiratory distress, other - mech vent Abdominal Exam: normal bowel sounds, non tender, soft, GT site - c/d/i Extremities: non-tender Katina Garcia N.P. Jan 27, 2017 12:41
--- NOTE | 2017-01-27 12:41 | GI Progress Note ---
Assessment/Plan Problems: (1) Tracheostomy in place ICD Codes: Z93.0 - Tracheostomy in place SNOMED: 130523046 (2) History of CVA (cerebrovascular accident) ICD Codes: Z86.73 - History of CVA (cerebrovascular accident) SNOMED: 071021530 (3) Feeding by G-tube ICD Codes: Z93.1 - Feeding by G-tube SNOMED: 734012395 (4) GI bleed ICD Codes: K92.2 - Gastrointestinal hemorrhage, unspecified SNOMED: 87890538 (5) Vomiting ICD Codes: R11.10 - Vomiting, unspecified SNOMED: 902545166 (6) Coffee ground emesis ICD Codes: K92.0 - Hematemesis SNOMED: 331993305, 40769806 Status: unchanged Status Narrative Discussed with Dr. Rosas. Assessment/Plan CT AP reviewed >> see full report. - Gaseous distention of the transverse colon and sigmoid. No evident obstructive lesion related to these. Distention is slightly decreased from the previous study. Suspect functional in nature, baseline for this patient. - Gastric distention, uncertain significance as no downstream gastric obstruction is evident - Previously demonstrated rectal wall foreign body is no longer evident OB stool positive, stable H&H cdiff negative GTFs per dietary cont bowel regime ppi monitor H&H, prn transfusion fu labs Subjective Subjective limited Objective Last 24 Hour Vital Signs Date Time Temp Pulse Resp B/P (MAP) Pulse Ox O2 Delivery O2 Flow Rate FiO2 01/27/17 12:01 77 01/27/17 12:00 35 01/27/17 12:00 97.7 87 14 117/76 98 Mechanical Ventilator 35 01/27/17 11:12 85 14 35 01/27/17 09:23 86 14 35 01/27/17 08:00 97.7 74 15 120/76 98 Mechanical Ventilator 35 01/27/17 08:00 35 01/27/17 08:00 78 01/27/17 07:24 67 14 35 01/27/17 05:25 77 15 35 01/27/17 04:00 97.5 78 14 152/98 96 Mechanical Ventilator 35 01/27/17 04:00 79 01/27/17 04:00 35 01/27/17 03:23 91 17 35 01/27/17 01:30 75 14 35 01/27/17 00:00 77 01/27/17 00:00 98.0 76 14 140/89 99 Mechanical Ventilator 35 01/27/17 00:00 35 01/26/17 23:17 75 14 35 01/26/17 21:30 80 14 35 01/26/17 20:00 35 01/26/17 20:00 98.4 74 14 138/88 99 Mechanical Ventilator 35 01/26/17 20:00 75 01/26/17 19:30 72 14 35 01/26/17 16:33 72 14 35 01/26/17 16:00 35 01/26/17 16:00 74 01/26/17 16:00 97.3 75 14 130/85 99 Mechanical Ventilator 35 01/26/17 14:46 79 14 35 01/26/17 12:41 76 14 35 Intake and Output 01/27/17 01/28/17 19:00 07:00 Intake Total 735 ml Output Total 850 ml Balance -115 ml Intake Free Water 60 ml IV Total 375 ml Tube Feeding 300 ml Output Urine Total 750 ml Stool Total 100 ml Laboratory Tests Test 01/27/17 02:00 White Blood Count 7.8 K/UL (4.8-10.8) Red Blood Count 4.26 M/UL (4.70-6.10) L Hemoglobin 12.6 G/DL (14.2-18.0) L Hematocrit 39.0 % (42.0-52.0) L Mean Corpuscular Volume 92 FL (80-99) Mean Corpuscular Hemoglobin 29.6 PG (27.0-31.0) Mean Corpuscular Hemoglobin Concent 32.3 G/DL (32.0-36.0) Red Cell Distribution Width 13.0 % (11.6-14.8) Platelet Count 242 K/UL (150-450) Mean Platelet Volume 10.3 FL (6.5-10.1) H Neutrophils (%) (Auto) 54.6 % (45.0-75.0) Lymphocytes (%) (Auto) 26.5 % (20.0-45.0) Monocytes (%) (Auto) 9.9 % (1.0-10.0) Eosinophils (%) (Auto) 7.7 % (0.0-3.0) H Basophils (%) (Auto) 1.3 % (0.0-2.0) Sodium Level 141 MMOL/L (136-145) Potassium Level 3.7 MMOL/L (3.5-5.1) Chloride Level 106 MMOL/L (98-107) Carbon Dioxide Level 26 MMOL/L (21-32) Anion Gap 9 mmol/L (5-15) Blood Urea Nitrogen 12 mg/dL (7-18) Creatinine 0.6 MG/DL (0.55-1.30) Estimat Glomerular Filtration Rate > 60 mL/min (>60) Glucose Level 128 MG/DL (74-106) H Calcium Level 9.0 MG/DL (8.5-10.1) Vancomycin Level Trough 14.4 ug/mL (5.0-12.0) H Height (Feet): 5 Height (Inches): 4.00 Weight (Pounds): 158 General Appearance: no apparent distress Cardiovascular: normal rate Respiratory/Chest: normal breath sounds, no respiratory distress, other - mech vent Abdominal Exam: normal bowel sounds, non tender, soft, GT site - c/d/i Extremities: non-tender Katina Garcia N.P. Jan 27, 2017 12:41
[2017-01-27 16:00] VITALS: BP 115/86
--- NOTE | 2017-01-27 17:00 | Infectious Diseases Prog Note ---
Assessment/Plan Assessment/Plan ASSESSMENT: The patient is a 61-year-old male with: UTI Providencia Possible sepsis Leukocytosis due to gastrointestinal bleed, acute stress, also possible urinary tract infection. doubt PNA SCx: GNR and ACB ( colonizer ) Chest x-ray. increasing basilar infiltrate or atelectasis. blood Cx : CoNS 05/24 History of aspiration pneumonia History of chronically elevated alkaline phosphatase PICC 01/22 Sacral decubitus. Ventilator-dependent respiratory failure. History of trach and PEG placement. COPD. Esophagitis, Hx EGD : . Minimum distal esophagitis. Gastritis, status post biopsy. 01/23 Diabetes. Anxiety. Anemia. PLAN: pt on IV Azactam d# and IV Vanco D# Monitor CBC. Monitor BMP. Monitor cultures ( blood). , repeat Monitor chest x-ray. Continue vent support. 2D Echo limited no Veg, difficult to do HUONG , will cont pt on prolong AB Rx ( Dw PCP ) Subjective Constitutional: Denies: no symptoms, fever, chills, fatigue, anorexia, drenching sweats, other Allergies: Coded Allergies: OXYTETRACYCLINE (Unverified Allergy, Unknown, 09/05/13) PENICILLINS (Unverified Allergy, Unknown, 09/05/13) Uncoded Allergies: PLASTIC TAPE (Allergy, Mild, ITCHINESS, 08/08/15) MEDICAL TAPE (Allergy, Unknown, 12/10/16) Subjective + ve blood cx again Objective Vital Signs Last 24 Hour Vital Signs Date Time Temp Pulse Resp B/P (MAP) Pulse Ox O2 Delivery O2 Flow Rate FiO2 01/27/17 16:45 77 14 35 01/27/17 16:00 35 01/27/17 16:00 97.7 87 17 115/86 98 Mechanical Ventilator 35 01/27/17 14:33 64 14 35 01/27/17 13:06 81 14 35 01/27/17 12:01 77 01/27/17 12:00 35 01/27/17 12:00 97.7 87 14 117/76 98 Mechanical Ventilator 35 01/27/17 11:12 85 14 35 01/27/17 09:23 86 14 35 01/27/17 08:00 97.7 74 15 120/76 98 Mechanical Ventilator 35 01/27/17 08:00 35 01/27/17 08:00 78 01/27/17 07:24 67 14 35 01/27/17 05:25 77 15 35 01/27/17 04:00 97.5 78 14 152/98 96 Mechanical Ventilator 35 01/27/17 04:00 79 01/27/17 04:00 35 01/27/17 03:23 91 17 35 01/27/17 01:30 75 14 35 01/27/17 00:00 77 01/27/17 00:00 98.0 76 14 140/89 99 Mechanical Ventilator 35 01/27/17 00:00 35 01/26/17 23:17 75 14 35 01/26/17 21:30 80 14 35 01/26/17 20:00 35 01/26/17 20:00 98.4 74 14 138/88 99 Mechanical Ventilator 35 01/26/17 20:00 75 01/26/17 19:30 72 14 35 Height (Feet): 5 Height (Inches): 4.00 Weight (Pounds): 158 HEENT: anicteric Respiratory/Chest: normal breath sounds Cardiovascular: regular rhythm Abdomen: non distended Microbiology Date/Time Source Procedure Growth Status 01/26/17 12:15 Blood Blood Culture - Preliminary Resulted Laboratory Tests Test 01/27/17 02:00 White Blood Count 7.8 K/UL (4.8-10.8) Red Blood Count 4.26 M/UL (4.70-6.10) L Hemoglobin 12.6 G/DL (14.2-18.0) L Hematocrit 39.0 % (42.0-52.0) L Mean Corpuscular Volume 92 FL (80-99) Mean Corpuscular Hemoglobin 29.6 PG (27.0-31.0) Mean Corpuscular Hemoglobin Concent 32.3 G/DL (32.0-36.0) Red Cell Distribution Width 13.0 % (11.6-14.8) Platelet Count 242 K/UL (150-450) Mean Platelet Volume 10.3 FL (6.5-10.1) H Neutrophils (%) (Auto) 54.6 % (45.0-75.0) Lymphocytes (%) (Auto) 26.5 % (20.0-45.0) Monocytes (%) (Auto) 9.9 % (1.0-10.0) Eosinophils (%) (Auto) 7.7 % (0.0-3.0) H Basophils (%) (Auto) 1.3 % (0.0-2.0) Sodium Level 141 MMOL/L (136-145) Potassium Level 3.7 MMOL/L (3.5-5.1) Chloride Level 106 MMOL/L (98-107) Carbon Dioxide Level 26 MMOL/L (21-32) Anion Gap 9 mmol/L (5-15) Blood Urea Nitrogen 12 mg/dL (7-18) Creatinine 0.6 MG/DL (0.55-1.30) Estimat Glomerular Filtration Rate > 60 mL/min (>60) Glucose Level 128 MG/DL (74-106) H Calcium Level 9.0 MG/DL (8.5-10.1) Vancomycin Level Trough 14.4 ug/mL (5.0-12.0) H Current Medications Medications (Trade) Dose Ordered Sig/Sima Route PRN Reason Start Time Stop Time Status Last Admin Dose Admin Acetaminophen (Tylenol) 650 mg Q4H PRN ORAL FEVER 01/21/17 12:45 02/20/17 12:44 Albuterol/ Ipratropium (Albuterol/ Ipratropium) 3 ml Q4H PRN HHN Shortness of Breath 01/24/17 16:45 01/29/17 16:44 Aztreonam 1 gm/ Dextrose 55 ml @ 110 mls/hr EVERY 8 HOURS IVPB 01/22/17 18:00 01/29/17 17:59 01/27/17 13:15 Chlorhexidine Gluconate (Paulina-Hex 2%) 1 applic DAILY@1999 TOPIC 01/22/17 20:00 02/21/17 19:59 01/26/17 22:43 Dextrose (Dextrose 50%) STAT PRN IV Hypoglycemia 01/21/17 12:45 02/20/17 12:44 Lorazepam (Ativan 2mg/ml 1ml) 2 mg EVERY 2 HOURS PRN IV For Anxiety 01/21/17 12:45 01/28/17 12:44 Morphine Sulfate (Morphine Sulfate) 4 mg EVERY 4 HOURS PRN IVP Severe Pain (Pain Scale 7-10) 01/21/17 12:45 01/28/17 12:44 Ondansetron HCl (Zofran) 4 mg Q6H PRN IVP Nausea & Vomiting 01/21/17 12:45 02/20/17 12:44 Pantoprazole (Protonix) 40 mg DAILY IVP 01/24/17 09:00 02/23/17 08:59 01/27/17 09:04 Polyethylene Glycol (Miralax) 17 gm BEDTIME GT 01/22/17 21:00 02/21/17 20:59 01/26/17 22:43 Polyethylene Glycol (Miralax) 17 gm DAILYPRN PRN ORAL Constipation 01/21/17 12:45 02/20/17 12:44 Sodium Chloride 1,000 ml @ 75 mls/hr [id number] IV 01/21/17 15:00 02/20/17 14:59 01/27/17 03:50 Vancomycin HCl (Vanco rx to dose) 1 ea DAILY PRN MISC Per rx protocol 01/25/17 12:30 02/24/17 12:29 Vancomycin HCl 1 gm/Dextrose 275 ml @ 183.708 mls/hr Q12HR@0230,1430 IVPB 01/26/17 02:30 01/31/17 02:29 01/27/17 15:06 MARCELLA MA M.D. Jan 27, 2017 17:00
--- NOTE | 2017-01-29 15:06 | Discharge Summary ---
Discharge Summary Hospital Course Date of Admission Jan 21, 2017 at 11:56 Date of Discharge Jan 27, 2017 at 18:00 Admitting Diagnosis GI bleed KIZZY Mike is a 61 year old male who was admitted on Jan 21, 2017 at 11:56 for Gastro Intestinal Bleed Hospital Course [id number] Discharge Discharge Disposition Patient was discharged to [facility] Discharge Diagnoses: Marga Aldana NP Jan 29, 2017 15:06
--- NOTE | 2017-01-29 15:06 | Discharge Summary ---
Discharge Summary Hospital Course Date of Admission Jan 21, 2017 at 11:56 Date of Discharge Jan 27, 2017 at 18:00 Admitting Diagnosis GI bleed KIZZY Mike is a 61 year old male who was admitted on Jan 21, 2017 at 11:56 for Gastro Intestinal Bleed Hospital Course [id number] Discharge Discharge Disposition Patient was discharged to [facility] Discharge Diagnoses: Marga Aldana NP Jan 29, 2017 15:06
--- NOTE | 2017-01-29 15:06 | Discharge Summary ---
Discharge Summary Hospital Course Date of Admission Jan 21, 2017 at 11:56 Date of Discharge Jan 27, 2017 at 18:00 Admitting Diagnosis GI bleed KIZZY Mike is a 61 year old male who was admitted on Jan 21, 2017 at 11:56 for Gastro Intestinal Bleed Hospital Course [id number] Discharge Discharge Disposition Patient was discharged to [facility] Discharge Diagnoses: Marga Aldana NP Jan 29, 2017 15:06
--- NOTE | 2017-01-30 00:45 | Discharge Summary 2 SIG ---
DATE OF ADMISSION: 01/21/2017 DATE OF DISCHARGE: 01/27/2017 CONSULTANTS: 1. Avni Castillo M.D. 2. Gaurav Rosas M.D. BRIEF HOSPITAL COURSE: The patient is a 61-year-old male from retirement with history of respiratory failure with trach, PEG, and vent dependence, history of diabetes, bedbound, and nonverbal, presented to ED due to coffee-ground emesis. He has been on Coumadin for history of DVT. He was last admitted in March for coffee-grounds emesis and at that time was noted to have ileus. On evaluation at ED, INR was 2.0. There was no further episode of coffee-ground emesis in the emergency room. He was given proton pump inhibitor. Abdominal and pelvic CT showed gaseous distention of the transverse colon and sigmoid. No evident obstructive lesion. There was no downstream gastric obstruction evident. He had leukocytosis, possible aspiration pneumonia. Sputum culture showed growth of gram-negative rods. CT scan of the abdomen showed possible basilar pneumonia in bilateral lungs. Chest x-ray showed basilar infiltrates and small left pleural effusion. He was initially placed on vancomycin and was switched to Azactam and was given Flagyl. He was placed on NPO. Coumadin was stopped. On 01/23/2017, he underwent EGD with findings of gastritis and minimal distal esophagitis. Tube feeding was resumed. Urine culture showed growth of Providencia. Blood culture with coagulase negative Staph, possible contaminant. Echocardiogram showed no vegetations and unable to do transesophageal echocardiogram. The patient will need to continue with prolonged IV antibiotics. He had a PICC line inserted on 01/22/2017. Ultrasound of the kidney showed cholelithiasis. Gastric biopsy showed no H. pylori. No intestinal metaplasia or dysplasia. He was eventually discharged back to SNF to continue IV antibiotics. FINAL DIAGNOSES: 1. Urinary tract infection,with Providencia. 2. Possible sepsis. 3. Leukocytosis due to gastrointestinal bleed and stress. 4. Possible pneumonia. 5. Acute gastrointestinal bleed. 6. Feeding via gastrostomy tube. 7. Chronic respiratory failure, tracheostomy dependent. 8. Old cerebrovascular accident. 9. Gastritis. 10. Esophagitis. 11. Chronically elevated alkaline phosphatase. 12. Cholelithiasis. 13. Anemia. 14. Hypokalemia. 15. Hypomagnesemia. 16. Status post esophagogastroduodenoscopy by Dr. Rosas on 01/23/2017. 17. Sacral decubitus ulcer, present on admission. 18. Bedbound status/ functional quadriplegia. DISPOSITION: The patient was discharged to [facility]. DISCHARGE MEDICATIONS: Refer to medication list. Sagar Rudd M.D. I have been assigned to dictate discharge summary on this account and I was not involved in the patient's management. Marga Aldana N.P. DR: LUISANA JOB#: [id number] CC: ANI
== END 2017-01-27 18:00 | DRG 720 ==
LOC: EDBD 10:34 → EMR 11:10 → 2W 11:56 → EDBEDREQ 12:33 → 2W 01-24 16:38
PROC: 5A1955Z Respiratory Ventilation, Greater than 96 Consecutive Hours (ICD-10-PCS; principal; 2017-01-21)
PROC: 02HV33Z Insertion of Infusion Device into Superior Vena Cava, Percutaneous Approach (ICD-10-PCS; 2017-01-22)
PROC: B548ZZA Ultrasonography of Superior Vena Cava, Guidance (ICD-10-PCS; 2017-01-22)
PROC: 0DB68ZX Excision of Stomach, Via Natural or Artificial Opening Endoscopic, Diagnostic (ICD-10-PCS; 2017-01-23)
DX: A41.9 Sepsis, unspecified organism (principal); Z99.11 Dependence on respirator [ventilator] status; J96.10 Chronic respiratory failure, unspecified whether with hypoxia or hypercapnia; K92.0 Hematemesis; L89.159 Pressure ulcer of sacral region, unspecified stage; Z93.0 Tracheostomy status; J44.9 Chronic obstructive pulmonary disease, unspecified; Z93.1 Gastrostomy status; F41.9 Anxiety disorder, unspecified; D64.9 Anemia, unspecified; Z74.01 Bed confinement status; K20.9 Esophagitis, unspecified; K29.70 Gastritis, unspecified, without bleeding; Z86.73 Personal history of transient ischemic attack (TIA), and cerebral infarction without residual deficits
CPT/HCPCS: 36415; 36569; 36600; 71010; 74177; 76700; 76937; 80048; 80053; 80069; 80202; 81003; 82270; 82550; 82553; 82803; 82962; 83540; 83550; 83605; 83690; 83735; 83880; 84100; 84484; 85025; 85610; 85730; 86850; 86900; 86901; 87040; 87070; 87081; 87086; 87181; 87205; 87324; 93005; 93306; 93970; 94002; 94003; 94150; 94664

== ENCOUNTER 2017-02-27 21:51 | Inpatient (IN) | payer OTHER ==
[~2017-02-27] VITALS: Ht 167.6 cm; Wt 66.7 kg
[~2017-02-27 21:51] MED LIST changes: +AMANTADINE100 M2 GT; +ATORVASTATIN CA20 MG GT; +COUMADIN5 MG GT; +DOCUSATE SODIU100 MG GT
[2017-02-27 22:05] VITALS: BP 150/98
--- NOTE | 2017-02-27 22:06 | Emergency Room Report ---
History of Present Illness General Chief Complaint: Gastrointestinal Bleed Source: Medical Record Present Illness HPI 62-year-old male sent from [facility] for alleged episodes of coffee-ground emesis History otherwise limited, patient on vent/trach, nonverbal at baseline All information from review of EMR and [facility] notes recently admitted January 21- for similar issue Endoscopy showed gastritis, was on Coumadin for DVT Was also admitted in March for similar There were no episodes of coffee-ground emesis in the ER during that visit, nor are there any today He also had urinary tract infection, with Providencia, possible pneumonia Was discharged back to SNF for IV antibiotics Allergies: Coded Allergies: OXYTETRACYCLINE (Unverified Allergy, Unknown, 09/05/13) PENICILLINS (Unverified Allergy, Unknown, 09/05/13) Uncoded Allergies: PLASTIC TAPE (Allergy, Mild, ITCHINESS, 08/08/15) MEDICAL TAPE (Allergy, Unknown, 12/10/16) Patient History Past Medical History: see triage record, old chart reviewed, unable to obtain Past Surgical History: unable to obtain Pertinent Family History: unable to obtain Social History: Denies: smoking, alcohol use, drug use Immunizations: UTD Reviewed Nursing Documentation: PMH: Agreed, PSxH: Agreed Nursing Documentation-PMH Past Medical History: No History, Except For Hx Cardiac Problems: Yes - Anemia, Hypotension, hypokalemia, PVD Hx Hypertension: Yes Hx COPD: Yes - Resp. failure, Vent. dependent, Dysphagia, PNA Hx Diabetes: Yes - Type 2 Hx Cancer: No Hx Gastrointestinal Problems: Yes - GERD, GI bleed Hx Dialysis: No - ESRD Hx Neurological Problems: Yes - anoxic brain Hx Cerebrovascular Accident: Yes - TIA AND CERBRAL INFARCT Hx Transient Ischemic Attacks: Yes Hx Dementia: Yes Hx Parkinson's Disease: Yes Hx Seizures: No - Pressure ulcers right and left buttocks (2 on each side) Hx Memory Loss: Yes Hx Concentration Difficulty: Yes Hx Speech Problem: Yes Hx Dysphasia: Yes Review of Systems All Other Systems: limited - nonverbal Physical Exam Vital Signs Date Time Temp Pulse Resp B/P (MAP) Pulse Ox O2 Delivery O2 Flow Rate FiO2 02/27/17 21:55 97.9 114 16 150/98 97 Mechanical Ventilator Sp02 EP Interpretation: reviewed, normal General Appearance: normal inspection, well appearing, no apparent distress, alert, non-toxic Head: atraumatic Eyes: bilateral eye PERRL, bilateral eye EOMI ENT: normal ENT inspection, hearing grossly normal, normal voice Neck: normal inspection, full range of motion, supple, no bony tend, tracheotomy Respiratory: normal inspection, lungs clear, normal breath sounds, no respiratory distress, no retraction, no wheezing Cardiovascular #1: regular rate, rhythm, no edema Gastrointestinal: normal inspection, normal bowel sounds, non tender, soft, no guarding, no hernia Genitourinary: no CVA tenderness Musculoskeletal: normal inspection, back normal, normal range of motion, Milton' s Sign negative Neurologic: normal inspection, alert, responsive, gl accountant III-XII nml as tested, speech normal Psychiatric: normal inspection, judgement/insight normal, mood/affect normal Skin: normal inspection, normal color, no rash Medical Decision Making Diagnostic Impression: Primary Impression: Sepsis Qualified Codes: A41.9 - Sepsis, unspecified organism Additional Impressions: Abdominal distension Coffee ground emesis Hypokalemia Ileus Pneumonia Qualified Codes: J18.9 - Pneumonia, unspecified organism ER Course 62-year-old male with multiple medical problems No additional coffee-ground emesis here - H&H is stable. Acute elevation in leukocytosis, 18,000. Chest x-ray and abdomen CT showed continued bibasilar consolidation, possible source of infection, sepsis. Gave patient antibiotics that he was receiving on previous admission per ID reccomendation Blood Cx pending chest x-rays showed worsening gas bubble below right diaphragm so CT was done again, fluid and gas-distended colon likely ileus, unchanged from previous CT on last admission. No obstructutive process Also had hypoK which was repleted in ED, likely caused by ileus Endorsed to Dr Rudd for [facility] admission at 1130pm EKG Diagnostic Results Rate: tachycardiac Rhythm: NSR ST Segments: no acute changes ASA given to the pt in ED: No Rhythm Strip Diag. Results EP Interpretation: yes Rate: 100 Rhythm: NSR, no PVC's, no ectopy Last Vital Signs Date Time Temp Pulse Resp B/P (MAP) Pulse Ox O2 Delivery O2 Flow Rate FiO2 02/27/17 21:55 97.9 114 16 150/98 97 Mechanical Ventilator Status: improved - and a for an and Disposition: ADMITTED INPATIENT Condition: Serious KADEEM PRIETO M.D. Feb 27, 2017 22:06
[2017-02-27 22:33] LABS: HEMATOCRIT 36.6 % (42.0-52.0); HEMOGLOBIN 12.1 G/DL (14.2-18.0); MEAN CORPUSCULAR VOLUME 90 FL (80-99); PLATELET COUNT 284 K/UL (150-450); RED BLOOD COUNT 4.09 M/UL (4.70-6.10); RED CELL DISTRIBUTION WIDTH 12.7 % (11.6-14.8); WHITE BLOOD COUNT 18.8 K/UL (4.8-10.8)
[2017-02-27 22:35] LABS: BASOPHILS % (AUTO) 0.6 % (0.0-2.0); EOSINOPHILS % (AUTO) 0.7 % (0.0-3.0); LYMPHOCYTES % (AUTO) 3.8 % (20.0-45.0); MONOCYTES % (AUTO) 4.6 % (1.0-10.0); NEUTROPHILS % (AUTO) 90.3 % (45.0-75.0)
[2017-02-27 22:39] LABS: INR 1.4 (0.9-1.1)
[2017-02-27 22:42] LABS: ALANINE AMINOTRANSFERASE 46 U/L (12-78); ALBUMIN 2.6 G/DL (3.4-5.0); ALBUMIN/GLOBULIN RATIO 0.6 (1.0-2.7); ALKALINE PHOSPHATASE 497 U/L (46-116); ANION GAP 9 mmol/L (5-15); ASPARTATE AMINO TRANSFERASE 45 U/L (15-37); BILIRUBIN,TOTAL 0.5 MG/DL (0.2-1.0); BLOOD UREA NITROGEN 13 mg/dL (7-18); CALCIUM 9.3 MG/DL (8.5-10.1); CARBON DIOXIDE 27 MMOL/L (21-32); CHLORIDE 103 MMOL/L (98-107); CREATININE 0.8 MG/DL (0.55-1.30); SODIUM 138 MMOL/L (136-145)
[2017-02-27] MEDS ORDERED: Vancomycin 1 GM in D5W 275 ML IVPB STA (22:46)
[2017-02-27 22:51] LABS: POTASSIUM 2.3 MMOL/L (3.5-5.1)
[2017-02-27] MEDS ORDERED: Aztreonam Inj 1 GM in NS 55 ML IVPB ONE (23:00)
[2017-02-27] MEDS ORDERED: traMADol 50mg tab GT PRN (23:30)
[2017-02-27] MEDS ORDERED: Vancomycin 1gm inj IVPB ONE (23:40)
[2017-02-27] MEDS ORDERED: NS 275 ML ONE (23:42)
[2017-02-27] MEDS ORDERED: Albuterol/Ipratropium 3ml neb HHN PRN (23:45)
[2017-02-27] MEDS ORDERED: LORazepam Inj 2mg/ml 1ml IV PRN (23:45)
[2017-02-27] MEDS ORDERED: Miralax 17gm pkt ORAL PRN (23:45)
[2017-02-27] MEDS ORDERED: Morphine Sulfate 4mg/ml Inj IVP PRN (23:45)
[2017-02-28] VITALS (7 sets, daily range): BP systolic 130–156; BP diastolic 73–96
[2017-02-28 05:56] LABS: HEMATOCRIT 36.6 % (42.0-52.0); HEMOGLOBIN 12.2 G/DL (14.2-18.0); MEAN CORPUSCULAR VOLUME 89 FL (80-99); PLATELET COUNT 263 K/UL (150-450); RED BLOOD COUNT 4.11 M/UL (4.70-6.10); RED CELL DISTRIBUTION WIDTH 12.6 % (11.6-14.8); WHITE BLOOD COUNT 17.6 K/UL (4.8-10.8)
[2017-02-28] MEDS: Midodrine 10mg tab GT SCH ×3 (06:00→20:43)
[2017-02-28 06:40] LABS: % IRON SATURATION 21 % (15-50); IRON 54 ug/dL (50-175); TOTAL IRON BINDING CAPACITY 256 ug/dL (250-450)
[2017-02-28 06:41] LABS: ALBUMIN 1.6 G/DL (3.4-5.0); ANION GAP 8 mmol/L (5-15); BLOOD UREA NITROGEN 12 mg/dL (7-18); CALCIUM 8.7 MG/DL (8.5-10.1); CARBON DIOXIDE 24 MMOL/L (21-32); CHLORIDE 105 MMOL/L (98-107); CREATININE 0.4 MG/DL (0.55-1.30); POTASSIUM 4.9 MMOL/L (3.5-5.1); SODIUM 137 MMOL/L (136-145)
--- NOTE | 2017-02-28 09:47 | Diagnostic Imaging Report ---
Indication: Abdominal distention/pain Technique: CT scan of the abdomen and pelvis utilizing automated exposure control without intravenous or oral contrast. Axial, sagittal and coronal images were obtained. CT dose: Total DLP 1230 mGycm; CTDI vol 18.4 mGy Comparison: 09/06/15 Findings: Evaluation of the solid organs is limited without intravenous contrast material. Atelectasis/consolidations are noted in the bilateral lower lobes. There is a calcified granuloma in the left lower lobe. There is a 4 mm nodule in the right lower lobe series 5 image 28. There is a small hiatal hernia. The esophagus is mildly distended with fluid. Gallbladder is full stones. The adrenal glands, spleen and pancreas are unremarkable. Nonobstructive calculi are seen of the bilateral kidneys measuring up to 5 mm. There is no hydronephrosis or ureteral calculi. The appendix is normal. Gastrostomy is seen within the stomach. The small bowel loops are normal in caliber. The colon is markedly distended with air and fluid. Prostate calcifications are noted. There is calcification in the right posterior bladder measuring 1.9 cm. Degenerative changes of the spine are seen. There is anterolisthesis of L5 on S1 with L5 pars defects. Atherosclerotic changes are seen. Impression: Markedly distended colon with fluid and gas. Findings could represent nonspecific enteritis or may be functional/ileus. Clinical correlation recommended with followup/further evaluation as indicated. Cholelithiasis. Bilateral lower lobe atelectasis and consolidations. Aspiration or pneumonia not excluded. Nonobstructive renal calculi. No hydronephrosis. Gastrostomy within the stomach. Small hiatal hernia. Mild distention of the esophagus with fluid may suggest reflux. Calcified granuloma in the left lower lobe. Calcification in the right posterior bladder. Clinical correlation recommended. Other findings as above. The CT scanner at [facility] is accredited by the [employer] and the scans are performed using protocols designed to limit radiation exposure to as low as reasonably achievable to attain images of sufficient resolution adequate for diagnostic evaluation.
--- NOTE | 2017-02-28 09:48 | Diagnostic Imaging Report ---
Indication: Shortness of breath Technique: XRAY CHEST 1 V Comparison: 01/25/17 Findings: Cardiomediastinal silhouette is grossly stable. Atelectasis/consolidations are seen in the bilateral lower lobes. There is a calcified granuloma in the left lower lobe. Right PICC line and tracheostomy are present. There is diffuse gaseous distention of the colon. Impression: Bilateral lower lobe atelectasis/consolidations. Pneumonia or aspiration not excluded. Clinical correlation/followup recommended. Calcified granuloma in the left lower lobe. Right PICC line and tracheostomy. Gaseous distention of the colon.
[2017-02-28] MEDS: Ascorbic Acid 500mg tab GT SCH (09:50)
[2017-02-28] MEDS: Amantadine 100mg cap GT SCH (09:50)
--- NOTE | 2017-02-28 10:15 | Consultation ---
History of Present Illness General Date patient seen: Feb 28, 2017 Time patient seen: 09:44 Chief Complaint: Gastrointestinal Bleed Present Illness HPI 62 y/o M with with hx of DM2, GERD, PVD, COPD, Dementia, PNA, CVA/TIA with resultant anoxic brain injury and VDRF and dysphagia s/p GT, GIB, sacral decub ulcers, SNF resident presents to ED on 02/27 with episodes of coffee ground emesis at [facility]. No episodes here. Afebrile, leukocytosis up to 18, now improving. Of note, patient recently admitted here 01/21-01/27 for coffee ground emesis s/p EGD which showed gastritis and patient was on coumadin for DVT. Also was found to have UTI providence s/p 14 day of Aztreonam and persitent low grade CONS bacteremia with difficult TTE and treated empirically for endocarditis with plan for 6 weeks of IV Vancomycin , currently Allergies: Coded Allergies: OXYTETRACYCLINE (Unverified Allergy, Unknown, 09/05/13) PENICILLINS (Unverified Allergy, Unknown, 09/05/13) Uncoded Allergies: PLASTIC TAPE (Allergy, Mild, ITCHINESS, 08/08/15) MEDICAL TAPE (Allergy, Unknown, 12/10/16) Medication History Scheduled Acetaminophen (Tylenol), 650 MG GT DAILY, (Reported) Acidophilus/Bulgaricus (Lactinex Chewable Tablet), 1 EACH GT TID, (Reported) Albuterol Sulfate* (Albuterol Sulfate Hhn*), 3 ML INH Q6H, (Reported) Amantadine Hcl* (Amantadine*), 100 MG ORAL DAILY, (Reported) Amantadine Hcl* (Amantadine*), 100 MG GT DAILY, (Reported) Ascorbic Acid* (Vitamin C*), 500 MG ORAL DAILY, (Reported) Ascorbic Acid* (Vitamin C*), 500 MG GT DAILY, (Reported) Aspirin* (Aspir 81*), 81 MG ORAL DAILY, (Reported) Aspirin* (Aspir 81*), 81 MG ORAL DAILY, (Reported) Atorvastatin Calcium* (Atorvastatin Calcium*), 10 MG GT BEDTIME, (Reported) Aztreonam (Azactam), 1 GM IJ EVERY 8 HOURS Bisacodyl* (Dulcolax*), 10 MG ORAL DAILY, (Reported) Bisacodyl* (Dulcolax*), 10 MG RECTAL ONCE, (Reported) Chlorhexidine Gluconate (Chlorhexidine Gluconate), 15 ML ORAL TWICE A DAY, ( Reported) Cholecalciferol (Vitamin D3)* (Vitamin D*), 5,000 UNIT GT DAILY, (Reported) Cran/Vitc/Mannose/Inulin/Brom (Uti-Stat Liquid), 30 ML GT BID, (Reported) Cran/Vitc/Mannose/Inulin/Brom (Uti-Stat Liquid), 30 ML GT TWICE A DAY, (Reported ) Dextran 70/Hypromellose (Artificial Tears Eye Drops), 1 DROP BOTH EYES BID, ( Reported) Docusate Sodium* (Docusate Sodium*), 100 MG GT TWICE A DAY, (Reported) Docusate Sodium* (Colace*), 100 MG GT TWICE A DAY, (Reported) Docusate Sodium* (Docusate Sodium*), 100 MG GT DAILY, (Reported) Enoxaparin* (Lovenox*), 40 MG SUBQ DAILY, (Reported) Famotidine (Famotidine), 20 MG GT DAILY, (Reported) Folic Acid* (Folic Acid*), 1 MG GT DAILY, (Reported) Heparin Sod (Porcine) (Heparin Sodium*), 5,000 UNITS SUBQ EVERY 12 HOURS, ( Reported) Ipratropium [place] (Atrovent Hfa), 0.5 MG HHN Q6HR, (Reported) Magnesium Hydroxide* (Milk Of Magnesia*), 30 ML ORAL DAILY, (Reported) Midodrine* (Proamatine*), 10 MG GT Q8HR, (Reported) Multivitamin Liquid* (Multi-Delyn*), 5 ML GT DAILY, (Reported) Omeprazole (Omeprazole), 20 MG GT DAILY, (Reported) Polyethylene Glycol 3350* (Miralax*), 17 GM GT DAILY, (Reported) Potassium Chloride (Potassium Chloride), 40 MEQ GT DAILY, (Reported) Simvastatin (Zocor), 40 MG GT BEDTIME, (Reported) Simvastatin (Zocor), 40 MG ORAL BEDTIME, (Reported) Thiamine Hcl* (Vitamin B-1*), 100 MG GT DAILY, (Reported) Warfarin Sod* (Coumadin*), 5 MG GT DAILY, (Reported) Zinc Sulfate (Zinc Sulfate*), 220 MG GT DAILY, (Reported) Scheduled PRN Acetaminophen (Acetaminophen), 650 MG ORAL Q4HR PRN for Prn Headache/Temp > 101, (Reported) Acetaminophen (Tylenol), 325 MG GT Q6H PRN for For Pain, (Reported) Acetaminophen* (Tylenol Extra Strength*), 650 MG GT Q6H PRN for Mild Pain/Temp > 100.5, (Reported) Albuterol Sulfate* (Albuterol Sulfate Hhn*), 3 ML INH Q3HR PRN for Shortness of Breath, (Reported) Hydrocodone Bit/Acetaminophen 10-325* ([place] 10-325*), 1 TAB GT Q12HR PRN for For Pain, (Reported) Hydrocodone/Acetaminophen (Hydrocodon-Acetaminophn 10-325), 1 TAB ORAL EVERY 12 HOURS PRN for For Pain, (Reported) Lorazepam* (Lorazepam*), 0.5 MG GT Q6HR PRN for For Anxiety, (Reported) Magnesium Hydroxide* (Milk Of Magnesia*), 30 ML GT DAILY PRN for Constipation, ( Reported) Ondansetron* (Zofran*), 4 MG ORAL Q6H PRN for Nausea & Vomiting, (Reported) Tramadol Hcl* (Ultram*), 50 MG GT Q12HR PRN for For Pain, (Reported) Miscellaneous Medications Al Hydroxide/mg Hydroxide (Mag-Al Liquid), 30 ML GT, (Reported) Insulin Lispro (Humalog), 0 SUBQ, (Reported) Patient History Healthcare decision maker Resuscitation status Full Code Advanced Directive on File Yes Patient History Narrative PMhx: as above SHx: Denies: smoking, alcohol use, drug use Fhx: non contributory Review of Systems ROS Narrative unable to obtain Physical Exam Physical Exam Narrative General Appearance: normal inspection, well appearing, no apparent distress, alert, non-toxic HEENT: bilateral eye PERRL, bilateral eye EOMI normal ENT inspection, Neck: normal inspection, full range of motion, supple, no bony tend, tracheotomy Respiratory: normal inspection, lungs clear, normal breath sounds, no respiratory distress, no retraction, no wheezing Cardiovascular regular rate, rhythm, no edema Gastrointestinal: normal inspection, normal bowel sounds, non tender, soft, no guarding, no hernia Genitourinary: no CVA tenderness Musculoskeletal: normal inspection, back normal, normal range of motion Skin: normal inspection, normal color, no rash Last 24 Hour Vital Signs Date Time Temp Pulse Resp B/P (MAP) Pulse Ox O2 Delivery O2 Flow Rate FiO2 02/28/17 08:55 94 25 40 02/28/17 08:00 40 02/28/17 07:12 94 25 40 02/28/17 05:05 103 25 40 02/28/17 04:00 98.0 100 23 156/96 100 Mechanical Ventilator 40 02/28/17 04:00 40 02/28/17 03:55 101 02/28/17 03:38 90 02/28/17 03:21 96 14 40 02/28/17 01:45 111 02/28/17 01:20 97.9 86 17 140/74 100 Mechanical Ventilator 40 02/28/17 01:17 97.9 86 17 140/74 100 Mechanical Ventilator 40 02/28/17 00:30 98 14 40 02/28/17 00:05 97.9 101 17 144/73 100 Mechanical Ventilator 40 02/27/17 23:20 104 14 40 02/27/17 22:25 40 02/27/17 22:16 113 21 40 02/27/17 22:16 113 21 Mechanical Ventilator 40 02/27/17 22:05 97.9 114 16 150/98 97 Mechanical Ventilator 40 02/27/17 21:55 97.9 114 16 150/98 97 Mechanical Ventilator Laboratory Tests Test 02/27/17 22:10 02/28/17 01:30 02/28/17 04:35 White Blood Count 18.8 K/UL (4.8-10.8) H 17.6 K/UL (4.8-10.8) H Red Blood Count 4.09 M/UL (4.70-6.10) L 4.11 M/UL (4.70-6.10) L Hemoglobin 12.1 G/DL (14.2-18.0) L 12.2 G/DL (14.2-18.0) L Hematocrit 36.6 % (42.0-52.0) L 36.6 % (42.0-52.0) L Mean Corpuscular Volume 90 FL (80-99) 89 FL (80-99) Mean Corpuscular Hemoglobin 29.6 PG (27.0-31.0) 29.7 PG (27.0-31.0) Mean Corpuscular Hemoglobin Concent 33.1 G/DL (32.0-36.0) 33.3 G/DL (32.0-36.0) Red Cell Distribution Width 12.7 % (11.6-14.8) 12.6 % (11.6-14.8) Platelet Count 284 K/UL (150-450) 263 K/UL (150-450) Mean Platelet Volume 8.9 FL (6.5-10.1) 9.0 FL (6.5-10.1) Neutrophils (%) (Auto) 90.3 % (45.0-75.0) H % (45.0-75.0) Lymphocytes (%) (Auto) 3.8 % (20.0-45.0) L % (20.0-45.0) Monocytes (%) (Auto) 4.6 % (1.0-10.0) % (1.0-10.0) Eosinophils (%) (Auto) 0.7 % (0.0-3.0) % (0.0-3.0) Basophils (%) (Auto) 0.6 % (0.0-2.0) % (0.0-2.0) Prothrombin Time 14.7 SEC (9.30-11.50) H Prothromb Time International Ratio 1.4 (0.9-1.1) H Sodium Level 138 MMOL/L (136-145) 137 MMOL/L (136-145) Potassium Level 2.3 MMOL/L (3.5-5.1) *L 4.9 MMOL/L (3.5-5.1) # Chloride Level 103 MMOL/L (98-107) 105 MMOL/L (98-107) Carbon Dioxide Level 27 MMOL/L (21-32) 24 MMOL/L (21-32) Anion Gap 9 mmol/L (5-15) 8 mmol/L (5-15) Blood Urea Nitrogen 13 mg/dL (7-18) 12 mg/dL (7-18) Creatinine 0.8 MG/DL (0.55-1.30) 0.4 MG/DL (0.55-1.30) L Estimat Glomerular Filtration Rate > 60 mL/min (>60) > 60 mL/min (>60) Glucose Level 164 MG/DL (74-106) H 103 MG/DL (74-106) Calcium Level 9.3 MG/DL (8.5-10.1) 8.7 MG/DL (8.5-10.1) Total Bilirubin 0.5 MG/DL (0.2-1.0) Aspartate Amino Transf (AST/SGOT) 45 U/L (15-37) H Alanine Aminotransferase (ALT/SGPT) 46 U/L (12-78) Alkaline Phosphatase 497 U/L (46-116) H Total Protein 7.3 G/DL (6.4-8.2) Albumin 2.6 G/DL (3.4-5.0) L 1.6 G/DL (3.4-5.0) L Globulin 4.7 g/dL Albumin/Globulin Ratio 0.6 (1.0-2.7) L Stool Occult Blood Pending Neutrophils % (Manual) Pending Lymphocytes % (Manual) Pending Platelet Estimate Pending Platelet Morphology Pending Phosphorus Level 3.0 MG/DL (2.5-4.9) Iron Level 54 ug/dL (50-175) Total Iron Binding Capacity 256 ug/dL (250-450) Percent Iron Saturation 21 % (15-50) Unsaturated Iron Binding 202 ug/dL (112-346) Height (Feet): 5 Height (Inches): 6.00 Weight (Pounds): 147 Medications Current Medications Medications (Trade) Dose Ordered Sig/Sima Route PRN Reason Start Time Stop Time Status Last Admin Dose Admin Acetaminophen (Tylenol) 650 mg Q4H PRN ORAL FEVER 02/27/17 23:45 03/29/17 23:44 Albuterol/ Ipratropium (Albuterol/ Ipratropium) 3 ml EVERY 4 HOURS PRN HHN Shortness of Breath 02/27/17 23:45 03/04/17 23:44 Amantadine HCl (Symmetrel) 100 mg DAILY GT 02/28/17 09:00 03/30/17 08:59 Ascorbic Acid (Vitamin C) 500 mg DAILY GT 02/28/17 09:00 03/30/17 08:59 Atorvastatin Calcium (Lipitor) 10 mg BEDTIME GT 02/28/17 21:00 03/30/17 20:59 Chlorhexidine Gluconate (Paulina-Hex 2%) 1 applic DAILY@2000 TOPIC 02/28/17 20:00 03/30/17 19:59 Dextrose (Dextrose 50%) STAT PRN IV Hypoglycemia 02/27/17 23:45 03/29/17 23:44 Lorazepam (Ativan 2mg/ml 1ml) 2 mg EVERY 2 HOURS PRN IV For Anxiety 02/27/17 23:45 03/06/17 23:44 Midodrine (Pro-Amatine) 10 mg Q8HR GT 02/28/17 06:00 03/30/17 05:59 Morphine Sulfate (Morphine Sulfate) 4 mg EVERY 4 HOURS PRN IVP Severe Pain (Pain Scale 7-10) 02/27/17 23:45 03/06/17 23:44 Ondansetron HCl (Zofran) 4 mg Q6H PRN IVP Nausea & Vomiting 02/27/17 23:45 03/29/17 23:44 Pantoprazole (Protonix) 40 mg EVERY 12 HOURS ORAL 02/28/17 09:00 03/30/17 08:59 Sodium Chloride 1,000 ml @ 75 mls/hr [id number] IV 02/27/17 22:50 03/29/17 22:49 02/28/17 02:21 Tramadol HCl (Ultram) 50 mg Q12HR PRN GT For Pain 02/27/17 23:30 03/06/17 23:29 Vancomycin HCl 1 gm/Dextrose 275 ml @ 183.3 mls/ hr Q12H IVPB 02/28/17 11:00 03/05/17 10:59 Assessment/Plan Assessment/Plan Abx: IV Vancomycin ([employer]- ) IV Aztreonam 02/27 Assessment: Coffee ground emesis- r/o UGIB Leukocytosis- ?reactive to UGIB vs possible due to PNA or combination -CT abd/p -per my review- infiltrates/consolidation bibasilar (report pending) -CXR p, sp cx p -Bcx p -Afebrile Hypokalemia Recent persistent low grade CONS bacteremia- being treated for presumed endocarditis/endovascular source -Bcx 01/21 2/4 CONS, 3 + 1/4, 01/26, +14 -TTE very limited, no vegetations seen. HUONG could not be done Recent [place] UTI s/p 14d Aztreonam Hx of PNA - hx sp cx ACB ( colonizer ) Recent coffee ground emesis -EGD 01/2017: gastritis; on coumadin History of chronically elevated alkaline phosphatase PICC 01/22 CVA with anoxic brain injury Sacral decubitus. Ventilator-dependent respiratory failure. History of trach and PEG placement. COPD. Esophagitis, Hx EGD : . Minimum distal esophagitis. Gastritis, status post biopsy. 01/23 Diabetes. Anxiety. Anemia. Plan: -Continue IV Vancomycin per prior duration for possible endocarditis, #38/42 -Continue IV aztreonam #2 pending CXR, sputum cx, u/a for possible PNA, r/o UTI -f/u cx -Monitor CBC/BMP, temperatures -trach/peg care -aspiration precautions -wound care Thank you for this consultation. Will continue to follow along with you. Discussed with Nanci Singh M.D. Feb 28, 2017 10:15
[2017-02-28 11:42] LABS: APPEARANCE,URINE SLIGHTLY CLOUDY; BILIRUBIN, URINE NEGATIVE (NEGATIVE); GLUCOSE, URINE (UA) NEGATIVE (NEGATIVE); KETONES,URINE 1+ (NEGATIVE); LEUKOCYTE ESTERASE ,URINE 3+ (NEGATIVE); NITRITE,URINE NEGATIVE (NEGATIVE); PH,URINE 6 (4.5-8.0); PROTEIN,URINE 1+ (NEGATIVE); UROBILINOGEN,URINE NORMAL MG/DL (0.0-1.0)
[2017-02-28] MEDS: Aztreonam Inj 1 GM in D5W 55 ML IVPB SCH ×2 (11:43→22:00)
[2017-02-28 11:46] LABS: COLOR,URINE YELLOW
--- NOTE | 2017-02-28 11:46 | History and Physical ---
History of Present Illness General Date patient seen: Feb 28, 2017 Reason for Hospitalization: Gastrointestinal Bleed Present Illness HPI 62-year-old male with extensive PMHx of chronic respiratory failure, trach, peg , sent from [place] [facility] for alleged episodes of coffee-ground emesis History otherwise limited, patient on vent/trach, nonverbal at baseline. Pt is admitted to [facility] for GI bleeding Allergies: Coded Allergies: OXYTETRACYCLINE (Unverified Allergy, Unknown, 09/05/13) PENICILLINS (Unverified Allergy, Unknown, 09/05/13) Uncoded Allergies: PLASTIC TAPE (Allergy, Mild, ITCHINESS, 08/08/15) MEDICAL TAPE (Allergy, Unknown, 12/10/16) Medication History Scheduled Acetaminophen (Tylenol), 650 MG GT DAILY, (Reported) Acidophilus/Bulgaricus (Lactinex Chewable Tablet), 1 EACH GT TID, (Reported) Albuterol Sulfate* (Albuterol Sulfate Hhn*), 3 ML INH Q6H, (Reported) Amantadine Hcl* (Amantadine*), 100 MG ORAL DAILY, (Reported) Amantadine Hcl* (Amantadine*), 100 MG GT DAILY, (Reported) Ascorbic Acid* (Vitamin C*), 500 MG ORAL DAILY, (Reported) Ascorbic Acid* (Vitamin C*), 500 MG GT DAILY, (Reported) Aspirin* (Aspir 81*), 81 MG ORAL DAILY, (Reported) Aspirin* (Aspir 81*), 81 MG ORAL DAILY, (Reported) Atorvastatin Calcium* (Atorvastatin Calcium*), 10 MG GT BEDTIME, (Reported) Aztreonam (Azactam), 1 GM IJ EVERY 8 HOURS Bisacodyl* (Dulcolax*), 10 MG ORAL DAILY, (Reported) Bisacodyl* (Dulcolax*), 10 MG RECTAL ONCE, (Reported) Chlorhexidine Gluconate (Chlorhexidine Gluconate), 15 ML ORAL TWICE A DAY, ( Reported) Cholecalciferol (Vitamin D3)* (Vitamin D*), 5,000 UNIT GT DAILY, (Reported) Cran/Vitc/Mannose/Inulin/Brom (Uti-Stat Liquid), 30 ML GT BID, (Reported) Cran/Vitc/Mannose/Inulin/Brom (Uti-Stat Liquid), 30 ML GT TWICE A DAY, (Reported ) Dextran 70/Hypromellose (Artificial Tears Eye Drops), 1 DROP BOTH EYES BID, ( Reported) Docusate Sodium* (Docusate Sodium*), 100 MG GT TWICE A DAY, (Reported) Docusate Sodium* (Colace*), 100 MG GT TWICE A DAY, (Reported) Docusate Sodium* (Docusate Sodium*), 100 MG GT DAILY, (Reported) Enoxaparin* (Lovenox*), 40 MG SUBQ DAILY, (Reported) Famotidine (Famotidine), 20 MG GT DAILY, (Reported) Folic Acid* (Folic Acid*), 1 MG GT DAILY, (Reported) Heparin Sod (Porcine) (Heparin Sodium*), 5,000 UNITS SUBQ EVERY 12 HOURS, ( Reported) Ipratropium [place] (Atrovent Hfa), 0.5 MG HHN Q6HR, (Reported) Magnesium Hydroxide* (Milk Of Magnesia*), 30 ML ORAL DAILY, (Reported) Midodrine* (Proamatine*), 10 MG GT Q8HR, (Reported) Multivitamin Liquid* (Multi-Delyn*), 5 ML GT DAILY, (Reported) Omeprazole (Omeprazole), 20 MG GT DAILY, (Reported) Polyethylene Glycol 3350* (Miralax*), 17 GM GT DAILY, (Reported) Potassium Chloride (Potassium Chloride), 40 MEQ GT DAILY, (Reported) Simvastatin (Zocor), 40 MG GT BEDTIME, (Reported) Simvastatin (Zocor), 40 MG ORAL BEDTIME, (Reported) Thiamine Hcl* (Vitamin B-1*), 100 MG GT DAILY, (Reported) Warfarin Sod* (Coumadin*), 5 MG GT DAILY, (Reported) Zinc Sulfate (Zinc Sulfate*), 220 MG GT DAILY, (Reported) Scheduled PRN Acetaminophen (Acetaminophen), 650 MG ORAL Q4HR PRN for Prn Headache/Temp > 101, (Reported) Acetaminophen (Tylenol), 325 MG GT Q6H PRN for For Pain, (Reported) Acetaminophen* (Tylenol Extra Strength*), 650 MG GT Q6H PRN for Mild Pain/Temp > 100.5, (Reported) Albuterol Sulfate* (Albuterol Sulfate Hhn*), 3 ML INH Q3HR PRN for Shortness of Breath, (Reported) Hydrocodone Bit/Acetaminophen 10-325* ([place] 10-325*), 1 TAB GT Q12HR PRN for For Pain, (Reported) Hydrocodone/Acetaminophen (Hydrocodon-Acetaminophn 10-325), 1 TAB ORAL EVERY 12 HOURS PRN for For Pain, (Reported) Lorazepam* (Lorazepam*), 0.5 MG GT Q6HR PRN for For Anxiety, (Reported) Magnesium Hydroxide* (Milk Of Magnesia*), 30 ML GT DAILY PRN for Constipation, ( Reported) Ondansetron* (Zofran*), 4 MG ORAL Q6H PRN for Nausea & Vomiting, (Reported) Tramadol Hcl* (Ultram*), 50 MG GT Q12HR PRN for For Pain, (Reported) Miscellaneous Medications Al Hydroxide/mg Hydroxide (Mag-Al Liquid), 30 ML GT, (Reported) Insulin Lispro (Humalog), 0 SUBQ, (Reported) Patient History Healthcare decision maker Resuscitation status Full Code Advanced Directive on File Yes Past Medical/Surgical History Past Medical/Surgical History: (1) Chronic respiratory failure (2) Feeding by G-tube (3) History of CVA (cerebrovascular accident) (4) Tracheostomy in place Review of Systems All Other Systems: negative except mentioned in HPI Physical Exam General Appearance: cachetic Lines, tubes and drains: peripheral HEENT: normocephalic, atraumatic Neck: non-tender, normal alignment Respiratory/Chest: chest wall non-tender, lungs clear Cardiovascular/Chest: normal peripheral pulses, no gallop/murmur Abdomen: normal bowel sounds Genitourinary/Rectal: normal genital exam Last 24 Hour Vital Signs Date Time Temp Pulse Resp B/P (MAP) Pulse Ox O2 Delivery O2 Flow Rate FiO2 02/28/17 10:47 94 14 40 02/28/17 08:55 94 25 40 02/28/17 08:00 40 02/28/17 08:00 97.3 92 15 136/90 100 Mechanical Ventilator 40 02/28/17 08:00 92 02/28/17 07:12 94 25 40 02/28/17 05:05 103 25 40 02/28/17 04:00 98.0 100 23 156/96 100 Mechanical Ventilator 40 02/28/17 04:00 40 02/28/17 03:55 101 02/28/17 03:38 90 12/9/17 03:21 96 14 40 02/28/17 01:45 111 02/28/17 01:20 97.9 86 17 140/74 100 Mechanical Ventilator 40 02/28/17 01:17 97.9 86 17 140/74 100 Mechanical Ventilator 40 02/28/17 00:30 98 14 40 02/28/17 00:05 97.9 101 17 144/73 100 Mechanical Ventilator 40 02/27/17 23:20 104 14 40 02/27/17 22:25 40 02/27/17 22:16 113 21 40 02/27/17 22:16 113 21 Mechanical Ventilator 40 02/27/17 22:05 97.9 114 16 150/98 97 Mechanical Ventilator 40 02/27/17 21:55 97.9 114 16 150/98 97 Mechanical Ventilator Laboratory Tests Test 02/27/17 22:10 02/28/17 01:30 02/28/17 04:35 02/28/17 10:15 White Blood Count 18.8 K/UL (4.8-10.8) H 17.6 K/UL (4.8-10.8) H Red Blood Count 4.09 M/UL (4.70-6.10) L 4.11 M/UL (4.70-6.10) L Hemoglobin 12.1 G/DL (14.2-18.0) L 12.2 G/DL (14.2-18.0) L Hematocrit 36.6 % (42.0-52.0) L 36.6 % (42.0-52.0) L Mean Corpuscular Volume 90 FL (80-99) 89 FL (80-99) Mean Corpuscular Hemoglobin 29.6 PG (27.0-31.0) 29.7 PG (27.0-31.0) Mean Corpuscular Hemoglobin Concent 33.1 G/DL (32.0-36.0) 33.3 G/DL (32.0-36.0) Red Cell Distribution Width 12.7 % (11.6-14.8) 12.6 % (11.6-14.8) Platelet Count 284 K/UL (150-450) 263 K/UL (150-450) Mean Platelet Volume 8.9 FL (6.5-10.1) 9.0 FL (6.5-10.1) Neutrophils (%) (Auto) 90.3 % (45.0-75.0) H % (45.0-75.0) Lymphocytes (%) (Auto) 3.8 % (20.0-45.0) L % (20.0-45.0) Monocytes (%) (Auto) 4.6 % (1.0-10.0) % (1.0-10.0) Eosinophils (%) (Auto) 0.7 % (0.0-3.0) % (0.0-3.0) Basophils (%) (Auto) 0.6 % (0.0-2.0) % (0.0-2.0) Prothrombin Time 14.7 SEC (9.30-11.50) H Prothromb Time International Ratio 1.4 (0.9-1.1) H Sodium Level 138 MMOL/L (136-145) 137 MMOL/L (136-145) Potassium Level 2.3 MMOL/L (3.5-5.1) *L 4.9 MMOL/L (3.5-5.1) # Chloride Level 103 MMOL/L (98-107) 105 MMOL/L (98-107) Carbon Dioxide Level 27 MMOL/L (21-32) 24 MMOL/L (21-32) Anion Gap 9 mmol/L (5-15) 8 mmol/L (5-15) Blood Urea Nitrogen 13 mg/dL (7-18) 12 mg/dL (7-18) Creatinine 0.8 MG/DL (0.55-1.30) 0.4 MG/DL (0.55-1.30) L Estimat Glomerular Filtration Rate > 60 mL/min (>60) > 60 mL/min (>60) Glucose Level 164 MG/DL (74-106) H 103 MG/DL (74-106) Calcium Level 9.3 MG/DL (8.5-10.1) 8.7 MG/DL (8.5-10.1) Total Bilirubin 0.5 MG/DL (0.2-1.0) Aspartate Amino Transf (AST/SGOT) 45 U/L (15-37) H Alanine Aminotransferase (ALT/SGPT) 46 U/L (12-78) Alkaline Phosphatase 497 U/L (46-116) H Total Protein 7.3 G/DL (6.4-8.2) Albumin 2.6 G/DL (3.4-5.0) L 1.6 G/DL (3.4-5.0) L Globulin 4.7 g/dL Albumin/Globulin Ratio 0.6 (1.0-2.7) L Stool Occult Blood Pending Differential Total Cells Counted 100 Neutrophils % (Manual) 89 % (45-75) H Lymphocytes % (Manual) 6 % (20-45) L Monocytes % (Manual) 4 % (1-10) Eosinophils % (Manual) 0 % (0-3) Basophils % (Manual) 1 % (0-2) Band Neutrophils 0 % (0-8) Platelet Estimate Adequate Platelet Morphology Normal Red Blood Cell Morphology Normal Phosphorus Level 3.0 MG/DL (2.5-4.9) Iron Level 54 ug/dL (50-175) Total Iron Binding Capacity 256 ug/dL (250-450) Percent Iron Saturation 21 % (15-50) Unsaturated Iron Binding 202 ug/dL (112-346) Urine Color Pending Urine Appearance Pending Urine pH Pending Urine Specific [place] Pending Urine Protein Pending Urine Glucose (UA) Pending Urine Ketones Pending Urine Occult Blood Pending Urine Nitrite Pending Urine Bilirubin Pending Urine Urobilinogen Pending Urine Leukocyte Esterase Pending Height (Feet): 5 Height (Inches): 6.00 Weight (Pounds): 147 Medications Current Medications Medications (Trade) Dose Ordered Sig/Sima Route PRN Reason Start Time Stop Time Status Last Admin Dose Admin Acetaminophen (Tylenol) 650 mg Q4H PRN ORAL FEVER 02/27/17 23:45 03/29/17 23:44 Albuterol/ Ipratropium (Albuterol/ Ipratropium) 3 ml EVERY 4 HOURS PRN HHN Shortness of Breath 02/27/17 23:45 03/04/17 23:44 Amantadine HCl (Symmetrel) 100 mg DAILY GT 02/28/17 09:00 03/30/17 08:59 02/28/17 09:50 Ascorbic Acid (Vitamin C) 500 mg DAILY GT 02/28/17 09:00 03/30/17 08:59 02/28/17 09:50 Atorvastatin Calcium (Lipitor) 10 mg BEDTIME GT 02/28/17 21:00 03/30/17 20:59 Aztreonam 1 gm/ Dextrose 55 ml @ 110 mls/hr Q8HR IVPB 02/28/17 11:15 03/07/17 11:14 Chlorhexidine Gluconate (Paulina-Hex 2%) 1 applic DAILY@2000 TOPIC 02/28/17 20:00 03/30/17 19:59 Dextrose (Dextrose 50%) STAT PRN IV Hypoglycemia 02/27/17 23:45 03/29/17 23:44 Lorazepam (Ativan 2mg/ml 1ml) 2 mg EVERY 2 HOURS PRN IV For Anxiety 02/27/17 23:45 03/06/17 23:44 Midodrine (Pro-Amatine) 10 mg Q8HR GT 02/28/17 06:00 03/30/17 05:59 Morphine Sulfate (Morphine Sulfate) 4 mg EVERY 4 HOURS PRN IVP Severe Pain (Pain Scale 7-10) 02/27/17 23:45 03/06/17 23:44 Ondansetron HCl (Zofran) 4 mg Q6H PRN IVP Nausea & Vomiting 02/27/17 23:45 03/29/17 23:44 Pantoprazole (Protonix) 40 mg EVERY 12 HOURS ORAL 02/28/17 09:00 03/30/17 08:59 02/28/17 09:50 Sodium Chloride 1,000 ml @ 75 mls/hr [id number] IV 02/27/17 22:50 03/29/17 22:49 02/28/17 02:21 Tramadol HCl (Ultram) 50 mg Q12HR PRN GT For Pain 02/27/17 23:30 03/06/17 23:29 Vancomycin HCl (Vanco rx to dose) 1 ea DAILY PRN MISC . 02/28/17 10:30 03/30/17 10:29 Vancomycin HCl 1 gm/Dextrose 275 ml @ 183.3 mls/ hr Q12H IVPB 02/28/17 11:00 03/05/17 10:59 Assessment/Plan Problem List: (1) GI bleed ICD Codes: K92.2 - Gastrointestinal hemorrhage, unspecified SNOMED: 58579833 (2) Chronic respiratory failure ICD Codes: J96.10 - Chronic respiratory failure SNOMED: 48149054 (3) Sepsis ICD Codes: A41.9 - Sepsis SNOMED: 24275621 (4) History of CVA (cerebrovascular accident) ICD Codes: Z86.73 - History of CVA (cerebrovascular accident) SNOMED: 081448525 (5) Feeding by G-tube ICD Codes: Z93.1 - Feeding by G-tube SNOMED: 652232828 Assessment/Plan NPO GI evaluation protonix IV check h/h transfuse prn check cultures ID evaluation [place] CRAMER Feb 28, 2017 11:46
[2017-02-28] MEDS: Vancomycin 1 GM in D5W 275 ML IVPB SCH ×2 (12:16→23:00)
--- NOTE | 2017-02-28 19:30 | Consultation ---
DATE OF CONSULTATION: 02/28/2017 CONSULTING PHYSICIAN: Gaurav Rosas M.D. CHIEF COMPLAINT: Coffee-ground emesis. HISTORY OF PRESENT ILLNESS: Most of the history per chart. The patient is intubated. This is a 62-year-old patient admitted to the hospital with coffee-ground emesis, diarrhea, and abdominal distention. The patient is known to me from last admission. The patient has chronic abdominal distention from chronic ileus. The patient has dysphagia requiring G-tube placement. The patient is status post with trach, chronic vent, and currently hemoglobin is at 12. PAST MEDICAL HISTORY: 1. Respiratory failure. 2. CVA. 3. Tracheostomy. 4. Chronic colonic distention. 5. Dysphagia with G-tube. ALLERGIES: No known drug allergies. MEDICATIONS: Please see medication reconciliation list. SOCIAL HISTORY: The patient currently lives in a [facility]. No history of tobacco, alcohol, or drug abuse. FAMILY HISTORY: Noncontributory. REVIEW OF SYSTEMS: Unable to obtain. PHYSICAL EXAMINATION: VITAL SIGNS: Temperature is 98 degrees, pulse is 103, respirations 25, and blood pressure is 156/96. HEENT: Normocephalic and atraumatic. Sclerae anicteric. NECK: Supple. There is a trach in place. LUNGS: Decreased breath sounds bilaterally. CARDIOVASCULAR: Regular rate and rhythm. Plus S1 and S2. ABDOMEN: Soft and mildly distended. Mildly tympanic to percussion. G-tube is in place. No rebound. No guarding. No peritoneal sign. EXTREMITIES: No cyanosis. No clubbing. No edema. LABORATORY DATA: White count is 17.6, hemoglobin 12, hematocrit 36, and platelet count is 263,000. Chem-7, sodium 137, potassium 4.9, BUN is 12, and creatinine is 0.4. ASSESSMENT: A 62-year-old male, admitted to the hospital with coffee-ground emesis. Hemoglobin is stable at 12. The patient has had profound diarrhea suspicious for Clostridium difficile. PLAN: Hold the tube feeding for today. Discontinue MiraLAX. Start Protonix 40 mg p.o. per G-tube b.i.d. Abdominal x-ray for evaluation of chronic ileus. Send the stool for C. difficile and we will follow tomorrow. Gaurav Rosas M.D. DR: ELEANOR JOB#: [id number] CC:
[2017-02-28] MEDS: Dyna-Hex 2% Top Sol 2oz TOPIC SCH (20:19)
[2017-03-01] VITALS: BP 120/80
[2017-03-01 04:00] VITALS: BP 127/81
[2017-03-01] MEDS: Aztreonam Inj 1 GM in D5W 55 ML IVPB SCH ×3 (06:00→21:30)
[2017-03-01] MEDS: Midodrine 10mg tab GT SCH ×3 (06:00→21:36)
[2017-03-01 07:05] LABS: BASOPHILS % (AUTO) 1.1 % (0.0-2.0); EOSINOPHILS % (AUTO) 2.9 % (0.0-3.0); HEMATOCRIT 33.7 % (42.0-52.0); HEMOGLOBIN 11.6 G/DL (14.2-18.0); LYMPHOCYTES % (AUTO) 19.9 % (20.0-45.0); MEAN CORPUSCULAR VOLUME 88 FL (80-99); MONOCYTES % (AUTO) 8.1 % (1.0-10.0); PLATELET COUNT 251 K/UL (150-450); RED BLOOD COUNT 3.81 M/UL (4.70-6.10); RED CELL DISTRIBUTION WIDTH 12.8 % (11.6-14.8); WHITE BLOOD COUNT 9.1 K/UL (4.8-10.8)
[2017-03-01 07:10] LABS: ALANINE AMINOTRANSFERASE 27 U/L (12-78); ALBUMIN 2.4 G/DL (3.4-5.0); ALBUMIN/GLOBULIN RATIO 0.5 (1.0-2.7); ALKALINE PHOSPHATASE 407 U/L (46-116); ANION GAP 9 mmol/L (5-15); ASPARTATE AMINO TRANSFERASE 27 U/L (15-37); BILIRUBIN,TOTAL 0.5 MG/DL (0.2-1.0); BLOOD UREA NITROGEN 6 mg/dL (7-18); CALCIUM 8.6 MG/DL (8.5-10.1); CARBON DIOXIDE 26 MMOL/L (21-32); CHLORIDE 105 MMOL/L (98-107); CREATININE 0.7 MG/DL (0.55-1.30); SODIUM 140 MMOL/L (136-145)
[2017-03-01 07:18] LABS: POTASSIUM 2.2 MMOL/L (3.5-5.1)
[2017-03-01 08:00] VITALS: BP 140/89
--- NOTE | 2017-03-01 08:06 | General Progress Note ---
Assessment/Plan Problem List: (1) Diarrhea ICD Codes: R19.7 - Diarrhea, unspecified SNOMED: 21445830 (2) Tracheostomy in place ICD Codes: Z93.0 - Tracheostomy in place SNOMED: 717806225 (3) group home resident ICD Codes: Z59.3 - Problems related to living in residential institution SNOMED: 056160137 (4) Chronic respiratory failure ICD Codes: J96.10 - Chronic respiratory failure SNOMED: 73890476 (5) History of CVA (cerebrovascular accident) ICD Codes: Z86.73 - History of CVA (cerebrovascular accident) SNOMED: 321370168 (6) GI bleed ICD Codes: K92.2 - Gastrointestinal hemorrhage, unspecified SNOMED: 04271417 (7) Feeding by G-tube ICD Codes: Z93.1 - Feeding by G-tube SNOMED: 388300149 (8) Coffee ground emesis ICD Codes: K92.0 - Hematemesis SNOMED: 103624884, 65798975 Assessment/Plan ppi fu H&H fu stool C.diff start GTF hold EGD fo now Subjective ROS Limited/Unobtainable: No Allergies: Coded Allergies: OXYTETRACYCLINE (Unverified Allergy, Unknown, 09/05/13) PENICILLINS (Unverified Allergy, Unknown, 09/05/13) Uncoded Allergies: PLASTIC TAPE (Allergy, Mild, ITCHINESS, 08/08/15) MEDICAL TAPE (Allergy, Unknown, 12/10/16) Objective Last 24 Hour Vital Signs Date Time Temp Pulse Resp B/P (MAP) Pulse Ox O2 Delivery O2 Flow Rate FiO2 03/01/17 07:30 87 14 40 03/01/17 05:14 88 17 40 03/01/17 04:00 40 03/01/17 04:00 98.1 90 15 127/81 98 Mechanical Ventilator 40 03/01/17 04:00 85 03/01/17 03:15 84 14 40 03/01/17 00:55 85 14 40 03/01/17 00:00 97.9 90 16 120/80 92 Mechanical Ventilator 02/28/17 23:34 91 02/28/17 23:15 92 15 40 02/28/17 20:58 90 14 40 02/28/17 20:00 97.9 92 16 130/88 92 Mechanical Ventilator 02/28/17 20:00 40 02/28/17 19:23 92 02/28/17 19:11 91 14 40 02/28/17 16:52 95 15 40 02/28/17 16:00 40 02/28/17 16:00 98 02/28/17 16:00 98.6 99 21 136/94 99 Mechanical Ventilator 40 02/28/17 15:34 96 14 40 02/28/17 12:43 93 14 40 02/28/17 12:00 40 02/28/17 12:00 96 02/28/17 12:00 98.1 95 16 136/88 99 Mechanical Ventilator 40 02/28/17 10:47 94 14 40 02/28/17 08:55 94 25 40 Laboratory Tests 02/28/17 10:15: Urine Color Yellow, Urine Appearance Slightly cloudy, Urine pH 6, Urine Specific [place] 1.015, Urine Protein 1+H, Urine Glucose (UA) Negative, Urine Ketones 1+H, Urine Occult Blood 1+H, Urine Nitrite Negative, Urine Bilirubin Negative, Urine Urobilinogen Normal, Urine Leukocyte Esterase 3+H, Urine RBC 10- 15H, Urine WBC 40-60H, Urine Squamous Epithelial Cells Few, Urine Bacteria ModerateH 03/01/17 06:15: White Blood Count 9.1, Red Blood Count 3.81L, Hemoglobin 11.6L, Hematocrit 33.7L , Mean Corpuscular Volume 88, Mean Corpuscular Hemoglobin 30.5, Mean Corpuscular Hemoglobin Concent 34.5, Red Cell Distribution Width 12.8, Platelet Count 251, Mean Platelet Volume 9.6, Neutrophils (%) (Auto) 68.0, Lymphocytes (% ) (Auto) 19.9L, Monocytes (%) (Auto) 8.1, Eosinophils (%) (Auto) 2.9, Basophils (%) (Auto) 1.1, Sodium Level 140, Potassium Level 2.2#*L, Chloride Level 105, Carbon Dioxide Level 26, Anion Gap 9, Blood Urea Nitrogen 6L, Creatinine 0.7#, Estimat Glomerular Filtration Rate > 60, Glucose Level 134H, Calcium Level 8.6, Total Bilirubin 0.5, Aspartate Amino Transf (AST/SGOT) 27, Alanine Aminotransferase (ALT/SGPT) 27, Alkaline Phosphatase 407H, Total Protein 6.9, Albumin 2.4L, Globulin 4.5, Albumin/Globulin Ratio 0.5L Height (Feet): 5 Height (Inches): 6.00 Weight (Pounds): 147 General Appearance: lethargic EENT: normal ENT inspection Neck: supple Cardiovascular: normal rate Respiratory/Chest: decreased breath sounds Abdomen: normal bowel sounds, non tender, soft Extremities: non-tender LISA OCONNELL Mar 01, 2017 08:06
[2017-03-01] MEDS: Ascorbic Acid 500mg tab GT SCH (09:36)
[2017-03-01] MEDS: Amantadine 100mg cap GT SCH (09:37)
--- NOTE | 2017-03-01 10:27 | Diagnostic Imaging Report ---
Indication: Abdominal distention Technique: XRAY ABDOMEN 1VIEW/KUB Comparison: 12/10/2016. Findings: Gastrostomy tube is again seen in the left upper quadrant. There is gaseous distention of the colon. Air is noted throughout small bowel. Air is seen through the sigmoid colon. Osseous structures are unremarkable. Impression: Nonspecific gaseous distention of the colon. Air throughout the small bowel. These loops are not dilated. Gastrostomy tube.
--- NOTE | 2017-03-01 10:43 | Pulmonology Progress Note ---
Assessment/Plan Problems: (1) GI bleed (2) Chronic respiratory failure (3) Sepsis (4) History of CVA (cerebrovascular accident) (5) Feeding by G-tube Respiratory: adjust tidal volume, adjust FIO2 Cardiac: d/c cardiac monitor technician Renal: F/U I&O, keep IV fluid Infectious Disease: continue antibiotics Gastrointestinal: hold feedings Endocrine: check TSH Neurologic: PRN Ativan Discussed with: nurses, consultants Subjective Constitutional: Reports: no symptoms HEENT: Repors: no symptoms Respiratory: Reports: no symptoms Allergies: Coded Allergies: OXYTETRACYCLINE (Unverified Allergy, Unknown, 09/05/13) PENICILLINS (Unverified Allergy, Unknown, 09/05/13) Uncoded Allergies: PLASTIC TAPE (Allergy, Mild, ITCHINESS, 08/08/15) MEDICAL TAPE (Allergy, Unknown, 12/10/16) Objective Last 24 Hour Vital Signs Date Time Temp Pulse Resp B/P (MAP) Pulse Ox O2 Delivery O2 Flow Rate FiO2 03/01/17 08:57 84 14 40 03/01/17 08:00 40 03/01/17 08:00 80 03/01/17 08:00 97.7 86 14 140/89 99 Mechanical Ventilator 40 03/01/17 07:30 87 14 40 03/01/17 05:14 88 17 40 03/01/17 04:00 40 03/01/17 04:00 98.1 90 15 127/81 98 Mechanical Ventilator 40 03/01/17 04:00 85 03/01/17 03:15 84 14 40 03/01/17 00:55 85 14 40 03/01/17 00:00 97.9 90 16 120/80 92 Mechanical Ventilator 02/28/17 23:34 91 02/28/17 23:15 92 15 40 02/28/17 20:58 90 14 40 02/28/17 20:00 97.9 92 16 130/88 92 Mechanical Ventilator 02/28/17 20:00 40 02/28/17 19:23 92 02/28/17 19:11 91 14 40 02/28/17 16:52 95 15 40 02/28/17 16:00 40 02/28/17 16:00 98 02/28/17 16:00 98.6 99 21 136/94 99 Mechanical Ventilator 40 02/28/17 15:34 96 14 40 02/28/17 12:43 93 14 40 02/28/17 12:00 40 02/28/17 12:00 96 02/28/17 12:00 98.1 95 16 136/88 99 Mechanical Ventilator 40 02/28/17 10:47 94 14 40 Intake and Output 03/01/17 03/02/17 19:00 07:00 # Bowel Movements 1 Objective General Appearance: WD/WN HEENT: normocephalic, trach intact Respiratory/Chest: chest wall non-tender, lungs clear Cardiovascular: normal peripheral pulses, normal rate Genitourinary: normal external genitalia Extremities: no cyanosis Skin: no lesions Neurologic/Psychiatric: tiler II-XII grossly normal, abnormal gait Lymphatic: no neck adenopathy Microbiology Date/Time Source Procedure Growth Status 02/27/17 22:55 Blood Blood Culture - Preliminary Resulted 02/27/17 22:40 Blood Blood Culture - Preliminary Resulted Laboratory Tests 03/01/17 06:15: White Blood Count 9.1, Red Blood Count 3.81L, Hemoglobin 11.6L, Hematocrit 33.7L , Mean Corpuscular Volume 88, Mean Corpuscular Hemoglobin 30.5, Mean Corpuscular Hemoglobin Concent 34.5, Red Cell Distribution Width 12.8, Platelet Count 251, Mean Platelet Volume 9.6, Neutrophils (%) (Auto) 68.0, Lymphocytes (% ) (Auto) 19.9L, Monocytes (%) (Auto) 8.1, Eosinophils (%) (Auto) 2.9, Basophils (%) (Auto) 1.1, Sodium Level 140, Potassium Level 2.2#*L, Chloride Level 105, Carbon Dioxide Level 26, Anion Gap 9, Blood Urea Nitrogen 6L, Creatinine 0.7#, Estimat Glomerular Filtration Rate > 60, Glucose Level 134H, Calcium Level 8.6, Total Bilirubin 0.5, Aspartate Amino Transf (AST/SGOT) 27, Alanine Aminotransferase (ALT/SGPT) 27, Alkaline Phosphatase 407H, Total Protein 6.9, Albumin 2.4L, Globulin 4.5, Albumin/Globulin Ratio 0.5L Current Medications Medications (Trade) Dose Ordered Sig/Sima Route PRN Reason Start Time Stop Time Status Last Admin Dose Admin Acetaminophen (Tylenol) 650 mg Q4H PRN ORAL FEVER 02/27/17 23:45 03/29/17 23:44 Albuterol/ Ipratropium (Albuterol/ Ipratropium) 3 ml EVERY 4 HOURS PRN HHN Shortness of Breath 02/27/17 23:45 03/04/17 23:44 Amantadine HCl (Symmetrel) 100 mg DAILY GT 02/28/17 09:00 03/30/17 08:59 03/01/17 09:37 Ascorbic Acid (Vitamin C) 500 mg DAILY GT 02/28/17 09:00 03/30/17 08:59 03/01/17 09:36 Atorvastatin Calcium (Lipitor) 10 mg BEDTIME GT 02/28/17 21:00 03/30/17 20:59 02/28/17 20:43 Aztreonam 1 gm/ Dextrose 55 ml @ 110 mls/hr Q8HR IVPB 02/28/17 11:15 03/07/17 11:14 03/01/17 06:00 Chlorhexidine Gluconate (Paulina-Hex 2%) 1 applic DAILY@2000 TOPIC 02/28/17 20:00 03/30/17 19:59 02/28/17 20:19 Dextrose (Dextrose 50%) STAT PRN IV Hypoglycemia 02/27/17 23:45 03/29/17 23:44 Lansoprazole (Prevacid) 30 mg Q12HR GT 02/28/17 21:00 03/30/17 20:59 03/01/17 09:37 Lorazepam (Ativan 2mg/ml 1ml) 2 mg EVERY 2 HOURS PRN IV For Anxiety 02/27/17 23:45 03/06/17 23:44 Micafungin Sodium 100 mg/Sodium Chloride 110 ml @ 110 mls/hr Q24H IVPB 03/01/17 16:00 03/08/17 15:59 Midodrine (Pro-Amatine) 10 mg Q8HR GT 02/28/17 06:00 03/30/17 05:59 Morphine Sulfate (Morphine Sulfate) 4 mg EVERY 4 HOURS PRN IVP Severe Pain (Pain Scale 7-10) 02/27/17 23:45 03/06/17 23:44 Ondansetron HCl (Zofran) 4 mg Q6H PRN IVP Nausea & Vomiting 02/27/17 23:45 03/29/17 23:44 Potassium Chloride 100 ml @ 50 mls/hr ONCE ONCE IVPB 03/01/17 09:15 03/01/17 11:14 03/01/17 09:40 Potassium Chloride 100 ml @ 50 mls/hr ONCE ONCE IVPB 03/01/17 12:00 03/01/17 13:59 Potassium Chloride (K-Dur) 40 meq Q4H NG 03/01/17 10:45 03/01/17 18:46 UNV Tramadol HCl (Ultram) 50 mg Q12HR PRN GT For Pain 02/27/17 23:30 03/06/17 23:29 Vancomycin HCl (Vanco rx to dose) 1 ea DAILY PRN MISC . 02/28/17 10:30 03/30/17 10:29 Vancomycin HCl 1 gm/Dextrose 275 ml @ 183.3 mls/ hr Q12H IVPB 02/28/17 11:00 03/05/17 10:59 02/28/17 23:00 ALBANIA CRAMER Mar 01, 2017 10:43
[2017-03-01 12:00] VITALS: BP 144/91
[2017-03-01] MEDS: Vancomycin 1 GM in D5W 275 ML IVPB SCH (14:15)
--- NOTE | 2017-03-01 14:59 | Wound Care Consultation ---
Wound Assessment Wound Assessment #1: Wound Number: 1 Wound Present on Admission: Yes New Wound: No Status Change of Wound: No Wound Location Body Site: perineal area Wound Type: erosion Abhishek Test: Does not Abhishek Rashes: Shelli/Yeast Wound Thickness: Partial Thickness Percent of Wound [place]/Red: 100 Wound Drainage Amount: None Wound Drainage Odor: None/Absent Tissue Surrounding Wound: Erythemic Wound General Appearance: Reddened Wound Assessment #2: Wound Number: 2 Wound Present on Admission: Yes New Wound: No Status Change of Wound: No Wound Location Body Site Modif: mid Wound Location Body Site: coccyx Wound Type: pressure ulcer Abhishek Test: Does not Abhishek Pressure Ulcer Stage: II Wound Thickness: Partial Thickness Wound Length: 2.0 Wound Width: 1.5 Wound Depth: less than 0.1 Percent of Wound [place]/Red: 100 Wound Drainage Description: Serosanguineous Wound Drainage Amount: Moderate Wound Drainage Odor: None/Absent Tissue Surrounding Wound: extensive full thickness scar tissue up to sacral area L 4.0 x W 5.5 Wound General Appearance: Reddened, Draining Wound Assessment #3: Wound Number: 3 Wound Present on Admission: Yes New Wound: No Status Change of Wound: No Wound Location Body Site Modif: left Wound Location Body Site: buttocks Wound Type: pressure ulcer Abhishek Test: Does not Abhishek Pressure Ulcer Stage: Deep Tissue Injury - SDTI Wound Thickness: Full Thickness Wound Length: 2.5 Wound Width: 2.0 Wound Depth: utd Percent of Wound Purple/Maroon: 100 Wound Drainage Amount: None Wound Drainage Odor: None/Absent Tissue Surrounding Wound: Intact Wound General Appearance: Reddened - purple Wound Assessment #4: Wound Number: 4 Wound Present on Admission: Yes New Wound: No Status Change of Wound: No Wound Location Body Site Modif: lower Wound Location Body Site: back Wound Type: rash Abhishek Test: Does not Abhishek Rashes: Shelli/Yeast Percent of Wound [place]/Red: 100 Wound Drainage Amount: None Wound Drainage Odor: None/Absent Tissue Surrounding Wound: Erythemic Wound General Appearance: Reddened Wound Comment #1 Coccyx area stage II pressure ulcer #2 Perineal area erosion secondary to shelli rashes #3 Shelli Rashes on lower back area #4 Left buttock SDTI pressure ulcer #5 Sacrococcygeal full thickness scar tissue Recommendation -Local wound care per protocol -Keep clean and dry -Turn and reposition -Optimize nutrition -Offload both heels -Heel protector on both heels -Low air loss mattress -Assess and f/u accordingly for any changes SCOOBY FIORE RN Mar 01, 2017 14:59
[2017-03-01 16:00] VITALS: BP 135/90
[2017-03-01] MEDS: Micafungin 100 MG in NS 110 ML IVPB SCH (16:56)
[2017-03-01] MEDS: Vancomycin 750mg/NS 250ml IVPB SCH (18:36)
[2017-03-01 20:00] VITALS: BP 144/93
[2017-03-01] MEDS: Dyna-Hex 2% Top Sol 2oz TOPIC SCH (20:33)
[2017-03-02] VITALS: BP 142/92
[2017-03-02 04:00] VITALS: BP 139/90
[2017-03-02] MEDS: Midodrine 10mg tab GT SCH ×3 (05:00→21:47)
[2017-03-02] MEDS: Vancomycin 750mg/NS 250ml IVPB SCH ×2 (05:28→20:04)
[2017-03-02] MEDS: Aztreonam Inj 1 GM in D5W 55 ML IVPB SCH ×3 (07:08→21:47)
[2017-03-02 08:00] VITALS: BP 119/78
--- NOTE | 2017-03-02 08:15 | Consultation ---
DATE OF CONSULTATION: 03/01/2017 REASON FOR CONSULTATION: I was asked by Dr. Rudd to assist in 62-year-old patient upon his admission to [facility] because of upper gastrointestinal bleed and diarrhea. HISTORY OF PRESENT ILLNESS: The patient is a resident of an extended care facility subacute unit where he has been in relatively stable condition over the last several days. He also had a long history of chronic medical syndrome, but he has been stable on current medication. He developed vomiting several days prior to the present admission. He was placed NPO and was given intravenous fluid. The nausea and vomiting subsided and the patient resumed feeding. Few hours after the feeding was resumed, the patient developed multiple episodes of fresh red blood and coffee-ground material vomiting. He was then referred to [facility] ER and was admitted. PAST MEDICAL HISTORY: Several years ago, the patient had cardiac arrest, developed anoxic encephalopathy, respiratory failure, had to be intubated and placed on mechanical ventilation. He failed to be weaned and underwent tracheostomy and gastrostomy and referred to subacute unit. Medically, he is known to have in addition hyperlipidemia, hypervitaminosis D, of parkinsonism. ALLERGIES: No known drug allergies. MEDICATIONS: The patient currently is on pantoprazole 40 mg via G-tube daily. He is on aztreonam 1 g q.8. Because of the patient allergy, he is on vancomycin 1 g IV piggyback q.8. He is on ranitidine 100 mg daily, ascorbic acid 5 mg daily, midodrine 10 mg q.8 hours p.r.n. for blood pressure below 90. He is on ondansetron 4 mg IV push q.4 h. p.r.n. and morphine sulfate 4 mg IV push q.4 h. p.r.n. for pain. FAMILY HISTORY: Family history of his parents is unknown. He has one daughter in good health. SOCIAL HISTORY: He is . He was born in [place]. He lived in [place] most of his life. 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 HABITS: The patient did not smoke, drink, or use illicit drugs. REVIEW OF SYSTEMS: The patient is unable to give any information regarding state of health. PHYSICAL EXAMINATION: VITAL SIGNS: Blood pressure is 136/94, pulse 99, respirations 21, and temperature 98.6. HEENT: Eyes were normal. Pupils were round, equal, and reactive to light. Sclerae was white. Conjunctiva was pink. Extraocular movements were normal. Temporal arteries were palpable bilaterally. There was bilateral temporal wasting. Visual donaldson to confrontation. Neglect sign could not be assessed. ENT, mucous membranes were not dehydrated. Auditory canals were clear and tympanic membranes could not be visualized. Nasal cavity was not congested. Nasal septum was intact. Soft palate. Phalanx and uvula could not be visualized. Tongue was moist, midline, and normally papillated. NECK: Supple. There was no goiter. No mass. No lymphadenopathy. No jugular venous distention. No bruits. Carotid upstroke was 2+. Tracheostomy site is clean. LUNGS: Clear without rhonchi, rales, or wheezing. Secretions are small, thin, and pale yellow. HEART: Normal sounds with regular beats. There is no S3, S4, or pericardial rub. ABDOMEN: Soft and nontender without organomegaly. There are no masses palpable. Normal bowel sounds without bruits. There was no guarding. No rebound tenderness. No ascites. No hernia. No CVA tenderness. Liver span was 8 cm, mostly nontender. EXTREMITIES: No cyanosis, no clubbing, and no edema. Extremities were warm. NEUROLOGICAL: Reflexes in biceps, triceps, and brachioradialis were symmetric and equal. Patellar retinaculum were present. Plantars were in extension bilaterally. Cranial nerves II through XII were symmetric and equal. Cerebellar function, there was no tremor. No nystagmus. No extrapyramidal rigidity. is also seen. Flexion contraction of both wrists and moderate flexion contraction of lower extremities. LABORATORY AND DIAGNOSTIC DATA: His hemoglobin is 12.1, hematocrit 36.8 with MCV of 90, WBC of 18.8, and platelets is 284. His BUN and creatinine is 13 and 0.8 respectively. His sodium is 138, potassium 3.6, chloride 103, and CO2 is 27. SGOT was 45 and alkaline phosphatase is 490. Serum albumin is 2.3 and total protein was 7.3. Chest x-ray showed bilateral atelectasis of both lower lobes. CT scan of the abdomen and pelvis revealed markedly distended colon, the nature of this is not exactly clear. In addition, there is a gallbladder stone, bilateral lower lobe atelectasis, nonobstructive renal calculi without hydronephrosis. There is small hiatal hernia, calcified granuloma in the left lower lobe. ASSESSMENT AND PLAN: Multiple consultants were called to assist in the management of this case. The patient was started on vancomycin for sepsis. Gastroenterology will see the patient as well. The patient will be seen by the hay stacker as well. Boris Arevalo M.D. DR: CAMILLE JOB#: [id number] CC:
[2017-03-02 08:35] LABS: EOSINOPHILS % (AUTO) 4.8 % (0.0-3.0); HEMATOCRIT 38.6 % (42.0-52.0); HEMOGLOBIN 13.3 G/DL (14.2-18.0); LYMPHOCYTES % (AUTO) 19.5 % (20.0-45.0); MEAN CORPUSCULAR VOLUME 89 FL (80-99); MONOCYTES % (AUTO) 7.2 % (1.0-10.0); NEUTROPHILS % (AUTO) 67.4 % (45.0-75.0); PLATELET COUNT 291 K/UL (150-450); RED BLOOD COUNT 4.34 M/UL (4.70-6.10); RED CELL DISTRIBUTION WIDTH 12.7 % (11.6-14.8); WHITE BLOOD COUNT 9.9 K/UL (4.8-10.8)
[2017-03-02 09:13] LABS: ALANINE AMINOTRANSFERASE 29 U/L (12-78); ALBUMIN 2.5 G/DL (3.4-5.0); ALBUMIN/GLOBULIN RATIO 0.6 (1.0-2.7); ALKALINE PHOSPHATASE 421 U/L (46-116); ANION GAP 9 mmol/L (5-15); ASPARTATE AMINO TRANSFERASE 35 U/L (15-37); BILIRUBIN,TOTAL 0.5 MG/DL (0.2-1.0); BLOOD UREA NITROGEN 11 mg/dL (7-18); CALCIUM 8.7 MG/DL (8.5-10.1); CARBON DIOXIDE 25 MMOL/L (21-32); CHLORIDE 108 MMOL/L (98-107); CREATININE 0.8 MG/DL (0.55-1.30); PHOSPHORUS 3.1 MG/DL (2.5-4.9); POTASSIUM 2.6 MMOL/L (3.5-5.1); SODIUM 142 MMOL/L (136-145)
[2017-03-02] MEDS: Ascorbic Acid 500mg tab GT SCH (10:42)
[2017-03-02] MEDS: Amantadine 100mg cap GT SCH (10:43)
--- NOTE | 2017-03-02 10:43 | GI Progress Note ---
Assessment/Plan Problems: (1) Feeding by G-tube ICD Codes: Z93.1 - Feeding by G-tube SNOMED: 036235386 (2) Coffee ground emesis ICD Codes: K92.0 - Hematemesis SNOMED: 328024531, 76161213 (3) Ileus ICD Codes: K56.7 - Ileus, unspecified SNOMED: 545998976 (4) Vomiting ICD Codes: R11.10 - Vomiting, unspecified SNOMED: 862958073 (5) Gastrointestinal hemorrhage ICD Codes: K92.2 - Gastrointestinal hemorrhage, unspecified SNOMED: 57275616 Status: unchanged Status Narrative Discussed with Dr. Rosas. Assessment/Plan OB stool positive KUB reviewed >> negative for ileus hold EGD fo now ppi fu H&H fu stool C.diff start GTF Subjective Subjective limited Objective Last 24 Hour Vital Signs Date Time Temp Pulse Resp B/P (MAP) Pulse Ox O2 Delivery O2 Flow Rate FiO2 03/02/17 09:10 96 15 40 03/02/17 08:00 87 03/02/17 08:00 97.7 87 18 119/78 99 Mechanical Ventilator 40 03/02/17 07:29 100 17 40 03/02/17 05:12 82 15 40 03/02/17 04:07 89 14 40 03/02/17 04:00 98.6 89 16 139/90 100 Mechanical Ventilator 40 03/02/17 04:00 40 03/02/17 04:00 89 03/02/17 01:35 80 15 40 03/02/17 00:00 98.1 84 16 142/92 100 Mechanical Ventilator 40 03/01/17 23:52 83 03/01/17 21:39 84 16 40 03/01/17 20:00 98.5 95 16 144/93 99 Mechanical Ventilator 40 03/01/17 20:00 40 03/01/17 19:19 86 16 40 03/01/17 19:08 85 03/01/17 16:59 88 17 40 03/01/17 16:00 97.5 85 16 135/90 98 Mechanical Ventilator 40 03/01/17 16:00 40 03/01/17 15:53 83 03/01/17 15:05 88 17 40 03/01/17 13:03 85 16 40 03/01/17 12:00 97.9 84 16 144/91 100 Mechanical Ventilator 40 03/01/17 12:00 40 03/01/17 11:50 84 03/01/17 10:56 88 16 40 Intake and Output 03/02/17 03/03/17 19:00 07:00 Intake Total 83.333 ml Balance 83.333 ml IV Total 83.333 ml Laboratory Tests Test 03/01/17 12:25 03/02/17 07:45 Vancomycin Level Trough 19.7 ug/mL (5.0-12.0) H White Blood Count 9.9 K/UL (4.8-10.8) Red Blood Count 4.34 M/UL (4.70-6.10) L Hemoglobin 13.3 G/DL (14.2-18.0) L Hematocrit 38.6 % (42.0-52.0) L Mean Corpuscular Volume 89 FL (80-99) Mean Corpuscular Hemoglobin 30.6 PG (27.0-31.0) Mean Corpuscular Hemoglobin Concent 34.4 G/DL (32.0-36.0) Red Cell Distribution Width 12.7 % (11.6-14.8) Platelet Count 291 K/UL (150-450) Mean Platelet Volume 9.5 FL (6.5-10.1) Neutrophils (%) (Auto) 67.4 % (45.0-75.0) Lymphocytes (%) (Auto) 19.5 % (20.0-45.0) L Monocytes (%) (Auto) 7.2 % (1.0-10.0) Eosinophils (%) (Auto) 4.8 % (0.0-3.0) H Basophils (%) (Auto) 1.0 % (0.0-2.0) Sodium Level 142 MMOL/L (136-145) Potassium Level 2.6 MMOL/L (3.5-5.1) *L Chloride Level 108 MMOL/L (98-107) H Carbon Dioxide Level 25 MMOL/L (21-32) Anion Gap 9 mmol/L (5-15) Blood Urea Nitrogen 11 mg/dL (7-18) Creatinine 0.8 MG/DL (0.55-1.30) Estimat Glomerular Filtration Rate > 60 mL/min (>60) Glucose Level 138 MG/DL (74-106) H Calcium Level 8.7 MG/DL (8.5-10.1) Phosphorus Level 3.1 MG/DL (2.5-4.9) Magnesium Level 1.7 MG/DL (1.8-2.4) L Total Bilirubin 0.5 MG/DL (0.2-1.0) Aspartate Amino Transf (AST/SGOT) 35 U/L (15-37) Alanine Aminotransferase (ALT/SGPT) 29 U/L (12-78) Alkaline Phosphatase 421 U/L (46-116) H Total Protein 7.0 G/DL (6.4-8.2) Albumin 2.5 G/DL (3.4-5.0) L Globulin 4.5 g/dL Albumin/Globulin Ratio 0.6 (1.0-2.7) L Height (Feet): 5 Height (Inches): 6.00 Weight (Pounds): 147 General Appearance: no apparent distress Cardiovascular: normal rate Respiratory[facility]: [facility] Ab[facility] Exam: GT site - c/d/i Katina Garcia N.P. Mar 02, 2017 10:43
[2017-03-02 12:00] VITALS: BP 131/87
[2017-03-02] MEDS ORDERED: SODIUM CHLORIDE IVPB ONE (12:00)
[2017-03-02] MEDS ORDERED: POTASSIUM CHLORIDE IVPB ONE (12:00)
--- NOTE | 2017-03-02 12:12 | Pulmonology Progress Note ---
Assessment/Plan Problems: (1) GI bleed (2) Chronic respiratory failure (3) Sepsis (4) History of CVA (cerebrovascular accident) (5) Feeding by G-tube Assessment/Plan continue abx on Micafungin check h/h f/u GI recommendations Hem stool positiove tolerating diet K supplement dvt prophylaxis. Subjective ROS Limited/Unobtainable: No Constitutional: Reports: no symptoms HEENT: Repors: no symptoms Respiratory: Reports: no symptoms Allergies: Coded Allergies: OXYTETRACYCLINE (Unverified Allergy, Unknown, 09/05/13) PENICILLINS (Unverified Allergy, Unknown, 09/05/13) Uncoded Allergies: PLASTIC TAPE (Allergy, Mild, ITCHINESS, 08/08/15) MEDICAL TAPE (Allergy, Unknown, 12/10/16) Objective Last 24 Hour Vital Signs Date Time Temp Pulse Resp B/P (MAP) Pulse Ox O2 Delivery O2 Flow Rate FiO2 03/02/17 11:22 81 14 40 03/02/17 09:10 96 15 40 03/02/17 08:00 87 03/02/17 08:00 97.7 87 18 119/78 99 Mechanical Ventilator 40 03/02/17 08:00 40 03/02/17 07:29 100 17 40 03/02/17 05:12 82 15 40 03/02/17 04:07 89 14 40 03/02/17 04:00 98.6 89 16 139/90 100 Mechanical Ventilator 40 03/02/17 04:00 40 03/02/17 04:00 89 03/02/17 01:35 80 15 40 03/02/17 00:00 98.1 84 16 142/92 100 Mechanical Ventilator 40 03/01/17 23:52 83 03/01/17 21:39 84 16 40 03/01/17 20:00 98.5 95 16 144/93 99 Mechanical Ventilator 40 03/01/17 20:00 40 03/01/17 19:19 86 16 40 03/01/17 19:08 85 03/01/17 16:59 88 17 40 03/01/17 16:00 97.5 85 16 135/90 98 Mechanical Ventilator 40 03/01/17 16:00 40 03/01/17 15:53 83 03/01/17 15:05 88 17 40 03/01/17 13:03 85 16 40 Intake and Output 03/02/17 03/03/17 19:00 07:00 Intake Total 83.333 ml Balance 83.333 ml IV Total 83.333 ml # Bowel Movements 1 Objective General Appearance: WD/WN HEENT: normocephalic, trach intact Respiratory/Chest: chest wall non-tender, lungs clear Cardiovascular: normal peripheral pulses, normal rate Genitourinary: normal external genitalia Extremities: no cyanosis Skin: no lesions 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 Complete 02/28/17 10:15 Urine,Clean Catch Urine Culture - Preliminary Gram Negative Bacillus 1 Resulted 02/28/17 01:00 Rectum VRE Culture - Final Enterococcus Faecalis - Vre Complete Laboratory Tests 03/01/17 12:25: Vancomycin Level Trough 19.7H 03/02/17 07:45: White Blood Count 9.9, Red Blood Count 4.34L, Hemoglobin 13.3L, Hematocrit 38.6L , Mean Corpuscular Volume 89, Mean Corpuscular Hemoglobin 30.6, Mean Corpuscular Hemoglobin Concent 34.4, Red Cell Distribution Width 12.7, Platelet Count 291, Mean Platelet Volume 9.5, Neutrophils (%) (Auto) 67.4, Lymphocytes (% ) (Auto) 19.5L, Monocytes (%) (Auto) 7.2, Eosinophils (%) (Auto) 4.8H, Basophils (%) (Auto) 1.0, Sodium Level 142, Potassium Level 2.6*L, Chloride Level 108H, Carbon Dioxide Level 25, Anion Gap 9, Blood Urea Nitrogen 11, Creatinine 0.8, Estimat Glomerular Filtration Rate > 60, Glucose Level 138H, Calcium Level 8.7, Phosphorus Level 3.1, Magnesium Level 1.7L, Total Bilirubin 0.5, Aspartate Amino Transf (AST/SGOT) 35, Alanine Aminotransferase (ALT/SGPT) 29, Alkaline Phosphatase 421H, Total Protein 7.0, Albumin 2.5L, Globulin 4.5, Albumin/Globulin Ratio 0.6L Current Medications Medications (Trade) Dose Ordered Sig/Sima Route PRN Reason Start Time Stop Time Status Last Admin Dose Admin Acetaminophen (Tylenol) 650 mg Q4H PRN ORAL FEVER 02/27/17 23:45 03/29/17 23:44 Albuterol/ Ipratropium (Albuterol/ Ipratropium) 3 ml EVERY 4 HOURS PRN HHN Shortness of Breath 02/27/17 23:45 03/04/17 23:44 Amantadine HCl (Symmetrel) 100 mg DAILY GT 02/28/17 09:00 03/30/17 08:59 03/02/17 10:43 Ascorbic Acid (Vitamin C) 500 mg DAILY GT 02/28/17 09:00 03/30/17 08:59 03/02/17 10:42 Atorvastatin Calcium (Lipitor) 10 mg BEDTIME GT 02/28/17 21:00 03/30/17 20:59 03/01/17 20:34 Aztreonam 1 gm/ Dextrose 55 ml @ 110 mls/hr Q8HR IVPB 02/28/17 11:15 03/07/17 11:14 03/02/17 07:08 Clotrimazole (Lotrimin) 1 applic EVERY 12 HOURS TOPIC 03/01/17 21:00 03/31/17 20:59 03/02/17 10:43 Dextrose (Dextrose 50%) STAT PRN IV Hypoglycemia 02/27/17 23:45 03/29/17 23:44 Lansoprazole (Prevacid) 30 mg Q12HR GT 02/28/17 21:00 03/30/17 20:59 03/02/17 10:42 Lorazepam (Ativan 2mg/ml 1ml) 2 mg EVERY 2 HOURS PRN IV For Anxiety 02/27/17 23:45 03/06/17 23:44 Micafungin Sodium 100 mg/Sodium Chloride 110 ml @ 110 mls/hr Q24H IVPB 03/01/17 16:00 03/08/17 15:59 03/01/17 16:56 Midodrine (Pro-Amatine) 10 mg Q8HR GT 02/28/17 06:00 03/30/17 05:59 Morphine Sulfate (Morphine Sulfate) 4 mg EVERY 4 HOURS PRN IVP Severe Pain (Pain Scale 7-10) 02/27/17 23:45 03/06/17 23:44 Ondansetron HCl (Zofran) 4 mg Q6H PRN IVP Nausea & Vomiting 02/27/17 23:45 03/29/17 23:44 Potassium Chloride 60 meq/ Sodium Chloride 580 ml @ 96.667 mls/ hr ONCE ONCE IVPB 03/02/17 12:00 03/02/17 17:59 Tramadol HCl (Ultram) 50 mg Q12HR PRN GT For Pain 02/27/17 23:30 03/06/17 23:29 Vancomycin HCl (Vanco rx to dose) 1 ea DAILY PRN MISC . 02/28/17 10:30 03/30/17 10:29 Vancomycin/Sodium Chloride 250 ml @ 166.667 mls/hr Q12HR@0500,1700 IVPB 03/01/17 17:00 03/06/17 16:59 03/02/17 05:28 ALBANIA CRAMER Mar 02, 2017 12:12
--- NOTE | 2017-03-02 14:13 | Infectious Diseases Prog Note ---
Assessment/Plan Assessment/Plan Assessment: Fungemia Probable PICC( 01/22) infection Leukocytosis- , improved -CT abd/p -per my review- infiltrates/consolidation bibasilar (report pending) -Afebrile Recent persistent low grade CONS bacteremia- being treated for presumed endocarditis/endovascular source -Bcx 01/21 2/ CONS, 01/23 + 1/4, 01/26, +/4 -TTE very limited, no vegetations seen. HUONG could not be done Recent Providencia UTI s/p 14d Aztreonam Hx of PNA - hx sp cx ACB ( colonizer ) Recent coffee ground emesis -EGD 01/2017: gastritis; on coumadin History of chronically elevated alkaline phosphatase CVA with anoxic brain injury Sacral decubitus. Ventilator-dependent respiratory failure. History of trach and PEG placement. COPD. Esophagitis, Hx EGD : . Minimum distal esophagitis. Gastritis, status post biopsy. 01/23 Diabetes. Anxiety. Anemia. Plan: - Cont Mycamine d# 2 -Continue IV Vancomycin per prior duration for possible endocarditis, # 40 /42 -Continue IV aztreonam # 4 / 7 pending CXR, sputum cx, u/a for possible PNA, r /o UTI -f/u cx( b. Ur, Sp ) -Monitor CBC/BMP, temperatures -trach/peg care -aspiration precautions -wound care - PICC removal Subjective Constitutional: Denies: no symptoms, fever, chills, fatigue, anorexia, drenching sweats, other Allergies: Coded Allergies: OXYTETRACYCLINE (Unverified Allergy, Unknown, 09/05/13) PENICILLINS (Unverified Allergy, Unknown, 09/05/13) Uncoded Allergies: PLASTIC TAPE (Allergy, Mild, ITCHINESS, 08/08/15) MEDICAL TAPE (Allergy, Unknown, 12/10/16) Objective Vital Signs Last 24 Hour Vital Signs Date Time Temp Pulse Resp B/P (MAP) Pulse Ox O2 Delivery O2 Flow Rate FiO2 03/02/17 12:34 85 20 40 03/02/17 12:00 40 03/02/17 12:00 72 03/02/17 12:00 98.1 82 16 131/87 99 Mechanical Ventilator 40 03/02/17 11:22 81 14 40 03/02/17 09:10 96 15 40 03/02/17 08:00 87 12/11/17 08:00 97.7 87 18 119/78 99 Mechanical Ventilator 40 03/02/17 08:00 40 03/02/17 07:29 100 17 40 03/02/17 05:12 82 15 40 03/02/17 04:07 89 14 40 03/02/17 04:00 98.6 89 16 139/90 100 Mechanical Ventilator 40 03/02/17 04:00 40 03/02/17 04:00 89 03/02/17 01:35 80 15 40 03/02/17 00:00 98.1 84 16 142/92 100 Mechanical Ventilator 40 03/01/17 23:52 83 03/01/17 21:39 84 16 40 03/01/17 20:00 98.5 95 16 144/93 99 Mechanical Ventilator 40 03/01/17 20:00 40 03/01/17 19:19 86 16 40 03/01/17 19:08 85 03/01/17 16:59 88 17 40 03/01/17 16:00 97.5 85 16 135/90 98 Mechanical Ventilator 40 03/01/17 16:00 40 03/01/17 15:53 83 03/01/17 15:05 88 17 40 Height (Feet): 5 Height (Inches): 6.00 Weight (Pounds): 147 HEENT: anicteric Respiratory/Chest: no respiratory distress Cardiovascular: normal rate Abdomen: soft, non tender Skin: no rash Microbiology Date/Time Source Procedure Growth Status 02/27/17 22:55 Blood Blood Culture - Preliminary YEAST Resulted 02/27/17 22:40 Blood Blood Culture - Preliminary YEAST Resulted 02/28/17 01:00 Nasal Nares MRSA Culture - Final NO METHICILLIN RESISTANT STAPH AUREUS... Complete 02/28/17 10:15 Urine,Clean Catch Urine Culture - Preliminary Gram Negative Bacillus 1 Resulted 02/28/17 01:00 Rectum VRE Culture - Final Enterococcus Faecalis - Vre Complete Laboratory Tests Test 03/02/17 07:45 White Blood Count 9.9 K/UL (4.8-10.8) Red Blood Count 4.34 M/UL (4.70-6.10) L Hemoglobin 13.3 G/DL (14.2-18.0) L Hematocrit 38.6 % (42.0-52.0) L Mean Corpuscular Volume 89 FL (80-99) Mean Corpuscular Hemoglobin 30.6 PG (27.0-31.0) Mean Corpuscular Hemoglobin Concent 34.4 G/DL (32.0-36.0) Red Cell Distribution Width 12.7 % (11.6-14.8) Platelet Count 291 K/UL (150-450) Mean Platelet Volume 9.5 FL (6.5-10.1) Neutrophils (%) (Auto) 67.4 % (45.0-75.0) Lymphocytes (%) (Auto) 19.5 % (20.0-45.0) L Monocytes (%) (Auto) 7.2 % (1.0-10.0) Eosinophils (%) (Auto) 4.8 % (0.0-3.0) H Basophils (%) (Auto) 1.0 % (0.0-2.0) Sodium Level 142 MMOL/L (136-145) Potassium Level 2.6 MMOL/L (3.5-5.1) *L Chloride Level 108 MMOL/L (98-107) H Carbon Dioxide Level 25 MMOL/L (21-32) Anion Gap 9 mmol/L (5-15) Blood Urea Nitrogen 11 mg/dL (7-18) Creatinine 0.8 MG/DL (0.55-1.30) Estimat Glomerular Filtration Rate > 60 mL/min (>60) Glucose Level 138 MG/DL (74-106) H Calcium Level 8.7 MG/DL (8.5-10.1) Phosphorus Level 3.1 MG/DL (2.5-4.9) Magnesium Level 1.7 MG/DL (1.8-2.4) L Total Bilirubin 0.5 MG/DL (0.2-1.0) Aspartate Amino Transf (AST/SGOT) 35 U/L (15-37) Alanine Aminotransferase (ALT/SGPT) 29 U/L (12-78) Alkaline Phosphatase 421 U/L (46-116) H Total Protein 7.0 G/DL (6.4-8.2) Albumin 2.5 G/DL (3.4-5.0) L Globulin 4.5 g/dL Albumin/Globulin Ratio 0.6 (1.0-2.7) L Current Medications Medications (Trade) Dose Ordered Sig/Sima Route PRN Reason Start Time Stop Time Status Last Admin Dose Admin Acetaminophen (Tylenol) 650 mg Q4H PRN ORAL FEVER 02/27/17 23:45 03/29/17 23:44 Albuterol/ Ipratropium (Albuterol/ Ipratropium) 3 ml EVERY 4 HOURS PRN HHN Shortness of Breath 02/27/17 23:45 03/04/17 23:44 Amantadine HCl (Symmetrel) 100 mg DAILY GT 02/28/17 09:00 03/30/17 08:59 03/02/17 10:43 Ascorbic Acid (Vitamin C) 500 mg DAILY GT 02/28/17 09:00 03/30/17 08:59 03/02/17 10:42 Atorvastatin Calcium (Lipitor) 10 mg BEDTIME GT 02/28/17 21:00 03/30/17 20:59 03/01/17 20:34 Aztreonam 1 gm/ Dextrose 55 ml @ 110 mls/hr Q8HR IVPB 02/28/17 11:15 03/07/17 11:14 03/02/17 07:08 Clotrimazole (Lotrimin) 1 applic EVERY 12 HOURS TOPIC 03/01/17 21:00 03/31/17 20:59 03/02/17 10:43 Dextrose (Dextrose 50%) STAT PRN IV Hypoglycemia 02/27/17 23:45 03/29/17 23:44 Lansoprazole (Prevacid) 30 mg Q12HR GT 02/28/17 21:00 03/30/17 20:59 03/02/17 10:42 Lorazepam (Ativan 2mg/ml 1ml) 2 mg EVERY 2 HOURS PRN IV For Anxiety 02/27/17 23:45 03/06/17 23:44 Micafungin Sodium 100 mg/Sodium Chloride 110 ml @ 110 mls/hr Q24H IVPB 03/01/17 16:00 03/08/17 15:59 03/01/17 16:56 Midodrine (Pro-Amatine) 10 mg Q8HR GT 02/28/17 06:00 03/30/17 05:59 Morphine Sulfate (Morphine Sulfate) 4 mg EVERY 4 HOURS PRN IVP Severe Pain (Pain Scale 7-10) 02/27/17 23:45 03/06/17 23:44 Ondansetron HCl (Zofran) 4 mg Q6H PRN IVP Nausea & Vomiting 02/27/17 23:45 03/29/17 23:44 Potassium Chloride 60 meq/ Sodium Chloride 580 ml @ 96.667 mls/ hr ONCE ONCE IVPB 03/02/17 12:00 03/02/17 17:59 03/02/17 12:58 Tramadol HCl (Ultram) 50 mg Q12HR PRN GT For Pain 02/27/17 23:30 03/06/17 23:29 Vancomycin HCl (Vanco rx to dose) 1 ea DAILY PRN MISC . 02/28/17 10:30 03/30/17 10:29 Vancomycin/Sodium Chloride 250 ml @ 166.667 mls/hr Q12HR@0500,1700 IVPB 03/01/17 17:00 03/06/17 16:59 03/02/17 05:28 MARCELLA MA M.D. Mar 02, 2017 14:13
[2017-03-02] MEDS ORDERED: Heparin 2000 units/Ns 1000ml INJ ONE (15:30)
[2017-03-02] MEDS ORDERED: Lidocaine 1% Plain 30 ml INJ ONE (15:30)
[2017-03-02 16:00] VITALS: BP 135/89
[2017-03-02] MEDS ORDERED: NS 500ML ONE (17:47)
[2017-03-02] MEDS ORDERED: 1/2 NS 1000ml IV ONE (17:47)
[2017-03-02] MEDS: Micafungin 100 MG in NS 110 ML IVPB SCH (18:05)
[2017-03-02 20:00] VITALS: BP 140/99
[2017-03-02] MEDS: Dyna-Hex 2% Top Sol 2oz TOPIC SCH (20:00)
[2017-03-03] VITALS: BP 143/92
[2017-03-03 04:00] VITALS: BP 137/90
[2017-03-03 05:08] LABS: BASOPHILS % (AUTO) 0.7 % (0.0-2.0); EOSINOPHILS % (AUTO) 6.3 % (0.0-3.0); HEMATOCRIT 32.3 % (42.0-52.0); HEMOGLOBIN 11.5 G/DL (14.2-18.0); LYMPHOCYTES % (AUTO) 19.4 % (20.0-45.0); MEAN CORPUSCULAR VOLUME 89 FL (80-99); MONOCYTES % (AUTO) 7.5 % (1.0-10.0); NEUTROPHILS % (AUTO) 66.1 % (45.0-75.0); PLATELET COUNT 248 K/UL (150-450); RED BLOOD COUNT 3.63 M/UL (4.70-6.10); RED CELL DISTRIBUTION WIDTH 12.7 % (11.6-14.8); WHITE BLOOD COUNT 10.8 K/UL (4.8-10.8)
[2017-03-03] MEDS: Vancomycin 750mg/NS 250ml IVPB SCH ×2 (05:38→17:48)
[2017-03-03 05:44] LABS: ALANINE AMINOTRANSFERASE 27 U/L (12-78); ALBUMIN 2.3 G/DL (3.4-5.0); ALBUMIN/GLOBULIN RATIO 0.5 (1.0-2.7); ALKALINE PHOSPHATASE 394 U/L (46-116); ANION GAP 10 mmol/L (5-15); ASPARTATE AMINO TRANSFERASE 29 U/L (15-37); BILIRUBIN,TOTAL 0.4 MG/DL (0.2-1.0); BLOOD UREA NITROGEN 15 mg/dL (7-18); CALCIUM 8.7 MG/DL (8.5-10.1); CARBON DIOXIDE 24 MMOL/L (21-32); CHLORIDE 109 MMOL/L (98-107); CREATININE 0.7 MG/DL (0.55-1.30); PHOSPHORUS 2.2 MG/DL (2.5-4.9); POTASSIUM 2.8 MMOL/L (3.5-5.1); SODIUM 142 MMOL/L (136-145)
[2017-03-03] MEDS: Midodrine 10mg tab GT SCH ×3 (06:00→21:09)
[2017-03-03] MEDS: Aztreonam Inj 1 GM in D5W 55 ML IVPB SCH ×3 (06:33→21:18)
[2017-03-03 08:00] VITALS: BP 138/84
[2017-03-03] MEDS: Ascorbic Acid 500mg tab GT SCH (10:13)
[2017-03-03] MEDS: Amantadine 100mg cap GT SCH (10:13)
[2017-03-03 12:00] VITALS: BP 140/87
--- NOTE | 2017-03-03 12:28 | Pulmonology Progress Note ---
Assessment/Plan Problems: (1) GI bleed (2) Chronic respiratory failure (3) Sepsis (4) History of CVA (cerebrovascular accident) (5) Feeding by G-tube Assessment/Plan getting a picc line continue abx on Micafungin check h/h f/u GI recommendations Hem stool positive tolerating diet K supplement, Phos supplement dvt prophylaxis. Subjective ROS Limited/Unobtainable: No Constitutional: Reports: no symptoms Respiratory: Reports: no symptoms Allergies: Coded Allergies: OXYTETRACYCLINE (Unverified Allergy, Unknown, 09/05/13) PENICILLINS (Unverified Allergy, Unknown, 09/05/13) Uncoded Allergies: PLASTIC TAPE (Allergy, Mild, ITCHINESS, 08/08/15) MEDICAL TAPE (Allergy, Unknown, 12/10/16) Objective Last 24 Hour Vital Signs Date Time Temp Pulse Resp B/P (MAP) Pulse Ox O2 Delivery O2 Flow Rate FiO2 03/03/17 12:00 98.1 73 15 140/87 99 Mechanical Ventilator 40 03/03/17 12:00 40 03/03/17 12:00 69 03/03/17 10:45 84 16 50 03/03/17 09:10 77 16 50 03/03/17 08:00 40 03/03/17 08:00 99.7 73 16 138/84 97 Mechanical Ventilator 40 03/03/17 08:00 69 03/03/17 06:40 76 20 50 03/03/17 04:47 75 16 50 03/03/17 04:00 80 03/03/17 04:00 97.9 78 20 137/90 100 Mechanical Ventilator 40 03/03/17 04:00 77 15 50 03/03/17 04:00 40 03/03/17 00:57 77 16 40 03/03/17 00:00 81 03/03/17 00:00 98.1 81 20 143/92 100 Mechanical Ventilator 40 03/02/17 23:15 85 16 40 03/02/17 21:37 85 16 40 03/02/17 20:00 98.2 88 20 140/99 92 Mechanical Ventilator 03/02/17 20:00 40 03/02/17 19:39 90 16 40 03/02/17 19:08 85 03/02/17 16:59 81 17 40 03/02/17 16:00 78 03/02/17 16:00 98.2 79 16 135/89 99 Mechanical Ventilator 40 03/02/17 16:00 40 03/02/17 15:28 88 19 40 03/02/17 12:34 85 20 40 Intake and Output 03/03/17 03/04/17 19:00 07:00 # Bowel Movements 2 Objective General Appearance: WD/WN HEENT: normocephalic, trach intact Respiratory/Chest: chest wall non-tender, lungs clear Cardiovascular: normal peripheral pulses, normal rate Genitourinary: normal external genitalia Extremities: no cyanosis Skin: no lesions 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, abnormal gait Lymphatic: no neck adenopathy Microbiology Date/Time Source Procedure Growth Status 03/01/17 12:30 Blood Blood Culture - Preliminary NO GROWTH AFTER 24 HOURS Resulted 03/01/17 12:25 Blood Blood Culture - Preliminary NO GROWTH AFTER 24 HOURS Resulted Laboratory Tests 03/03/17 04:15: White Blood Count 10.8, Red Blood Count 3.63L, Hemoglobin 11.5L, Hematocrit 32.3L, Mean Corpuscular Volume 89, Mean Corpuscular Hemoglobin 31.7H, Mean Corpuscular Hemoglobin Concent 35.7, Red Cell Distribution Width 12.7, Platelet Count 248, Mean Platelet Volume 9.1, Neutrophils (%) (Auto) 66.1, Lymphocytes (% ) (Auto) 19.4L, Monocytes (%) (Auto) 7.5, Eosinophils (%) (Auto) 6.3H, Basophils (%) (Auto) 0.7, Erythrocyte Sedimentation Rate 70H, Sodium Level 142, Potassium Level 2.8L, Chloride Level 109H, Carbon Dioxide Level 24, Anion Gap 10 , Blood Urea Nitrogen 15, Creatinine 0.7, Estimat Glomerular Filtration Rate > 60, Glucose Level 140H, Calcium Level 8.7, Phosphorus Level 2.2L, Magnesium Level 1.7L, Total Bilirubin 0.4, Aspartate Amino Transf (AST/SGOT) 29, Alanine Aminotransferase (ALT/SGPT) 27, Alkaline Phosphatase 394H, Total Protein 6.6, Albumin 2.3L, Globulin 4.3, Albumin/Globulin Ratio 0.5L Current Medications Medications (Trade) Dose Ordered Sig/Sima Route PRN Reason Start Time Stop Time Status Last Admin Dose Admin Acetaminophen (Tylenol) 650 mg Q4H PRN ORAL FEVER 02/27/17 23:45 03/29/17 23:44 Albuterol/ Ipratropium (Albuterol/ Ipratropium) 3 ml EVERY 4 HOURS PRN HHN Shortness of Breath 02/27/17 23:45 03/04/17 23:44 Amantadine HCl (Symmetrel) 100 mg DAILY GT 02/28/17 09:00 03/30/17 08:59 03/03/17 10:13 Ascorbic Acid (Vitamin C) 500 mg DAILY GT 02/28/17 09:00 03/30/17 08:59 03/03/17 10:13 Atorvastatin Calcium (Lipitor) 10 mg BEDTIME GT 02/28/17 21:00 03/30/17 20:59 03/02/17 21:46 Aztreonam 1 gm/ Dextrose 55 ml @ 110 mls/hr Q8HR IVPB 02/28/17 11:15 03/07/17 11:14 03/03/17 06:33 Chlorhexidine Gluconate (Paulina-Hex 2%) 1 applic DAILY@1999 TOPIC 03/02/17 20:00 04/01/17 19:59 Clotrimazole (Lotrimin) 1 applic EVERY 12 HOURS TOPIC 03/01/17 21:00 03/31/17 20:59 03/03/17 10:15 Dextrose (Dextrose 50%) STAT PRN IV Hypoglycemia 02/27/17 23:45 03/29/17 23:44 Lansoprazole (Prevacid) 30 mg Q12HR GT 02/28/17 21:00 03/30/17 20:59 03/03/17 10:13 Lorazepam (Ativan 2mg/ml 1ml) 2 mg EVERY 2 HOURS PRN IV For Anxiety 02/27/17 23:45 03/06/17 23:44 Magnesium Sulfate 100 ml @ 100 mls/hr Q1H IVPB 03/03/17 12:00 03/03/17 13:59 UNV Micafungin Sodium 100 mg/Sodium Chloride 110 ml @ 110 mls/hr Q24H IVPB 03/01/17 16:00 03/08/17 15:59 03/02/17 18:05 Midodrine (Pro-Amatine) 10 mg Q8HR GT 02/28/17 06:00 03/30/17 05:59 Morphine Sulfate (Morphine Sulfate) 4 mg EVERY 4 HOURS PRN IVP Severe Pain (Pain Scale 7-10) 02/27/17 23:45 03/06/17 23:44 Ondansetron HCl (Zofran) 4 mg Q6H PRN IVP Nausea & Vomiting 02/27/17 23:45 03/29/17 23:44 Potassium Phosphate 30 mm/ Sodium Chloride 285 ml @ 47.5 mls/hr ONCE ONCE IVPB 03/03/17 12:00 03/03/17 17:59 UNV Potassium Chloride (K-Dur) 80 meq ONCE ONCE GT 03/03/17 12:00 03/03/17 12:01 UNV Tramadol HCl (Ultram) 50 mg Q12HR PRN GT For Pain 02/27/17 23:30 03/06/17 23:29 Vancomycin HCl (Vanco rx to dose) 1 ea DAILY PRN MISC . 02/28/17 10:30 03/30/17 10:29 Vancomycin/Sodium Chloride 250 ml @ 166.667 mls/hr Q12HR@0500,1700 IVPB 03/01/17 17:00 03/06/17 16:59 03/03/17 05:38 ALBANIA CRAMER Mar 03, 2017 12:28
[2017-03-03] MEDS ORDERED: Potassium Phosphate 30 MM in NS 275 ML IV ONE (14:00)
--- NOTE | 2017-03-03 14:10 | GI Progress Note ---
Assessment/Plan Problems: (1) Feeding by G-tube ICD Codes: Z93.1 - Feeding by G-tube SNOMED: 517572846 (2) Coffee ground emesis ICD Codes: K92.0 - Hematemesis SNOMED: 323151599, 25121149 (3) Ileus ICD Codes: K56.7 - Ileus, unspecified SNOMED: 009343660 (4) Vomiting ICD Codes: R11.10 - Vomiting, unspecified SNOMED: 139940464 (5) Gastrointestinal hemorrhage ICD Codes: K92.2 - Gastrointestinal hemorrhage, unspecified SNOMED: 31245947 Status: unchanged Status Narrative Discussed with Dr. Rosas. Assessment/Plan OB stool positive KUB reviewed >> negative for ileus hold EGD for now monitor H&H, prn transfusions ppi electrolyte correction fu stool C.diff GTFs per dietary fu labs Subjective Subjective limited Objective Last 24 Hour Vital Signs Date Time Temp Pulse Resp B/P (MAP) Pulse Ox O2 Delivery O2 Flow Rate FiO2 03/03/17 12:43 73 16 50 03/03/17 12:00 98.1 73 15 140/87 99 Mechanical Ventilator 40 03/03/17 12:00 40 03/03/17 12:00 69 03/03/17 10:45 84 16 50 03/03/17 09:10 77 16 50 03/03/17 08:00 40 03/03/17 08:00 99.7 73 16 138/84 97 Mechanical Ventilator 40 03/03/17 08:00 69 03/03/17 06:40 76 20 50 03/03/17 04:47 75 16 50 03/03/17 04:00 80 03/03/17 04:00 97.9 78 20 137/90 100 Mechanical Ventilator 40 03/03/17 04:00 77 15 50 03/03/17 04:00 40 03/03/17 00:57 77 16 40 03/03/17 00:00 81 03/03/17 00:00 98.1 81 20 143/92 100 Mechanical Ventilator 40 03/02/17 23:15 85 16 40 03/02/17 21:37 85 16 40 03/02/17 20:00 98.2 88 20 140/99 92 Mechanical Ventilator 03/02/17 20:00 40 03/02/17 19:39 90 16 40 03/02/17 19:08 85 03/02/17 16:59 81 17 40 03/02/17 16:00 78 03/02/17 16:00 98.2 79 16 135/89 99 Mechanical Ventilator 40 03/02/17 16:00 40 03/02/17 15:28 88 19 40 Intake and Output 03/03/17 03/04/17 19:00 07:00 # Bowel Movements 2 Laboratory Tests Test 03/03/17 04:15 White Blood Count 10.8 K/UL (4.8-10.8) Red Blood Count 3.63 M/UL (4.70-6.10) L Hemoglobin 11.5 G/DL (14.2-18.0) L Hematocrit 32.3 % (42.0-52.0) L Mean Corpuscular Volume 89 FL (80-99) Mean Corpuscular Hemoglobin 31.7 PG (27.0-31.0) H Mean Corpuscular Hemoglobin Concent 35.7 G/DL (32.0-36.0) Red Cell Distribution Width 12.7 % (11.6-14.8) Platelet Count 248 K/UL (150-450) Mean Platelet Volume 9.1 FL (6.5-10.1) Neutrophils (%) (Auto) 66.1 % (45.0-75.0) Lymphocytes (%) (Auto) 19.4 % (20.0-45.0) L Monocytes (%) (Auto) 7.5 % (1.0-10.0) Eosinophils (%) (Auto) 6.3 % (0.0-3.0) H Basophils (%) (Auto) 0.7 % (0.0-2.0) Erythrocyte Sedimentation Rate 70 MM/HR (0-20) H Sodium Level 142 MMOL/L (136-145) Potassium Level 2.8 MMOL/L (3.5-5.1) L Chloride Level 109 MMOL/L (98-107) H Carbon Dioxide Level 24 MMOL/L (21-32) Anion Gap 10 mmol/L (5-15) Blood Urea Nitrogen 15 mg/dL (7-18) Creatinine 0.7 MG/DL (0.55-1.30) Estimat Glomerular Filtration Rate > 60 mL/min (>60) Glucose Level 140 MG/DL (74-106) H Calcium Level 8.7 MG/DL (8.5-10.1) Phosphorus Level 2.2 MG/DL (2.5-4.9) L Magnesium Level 1.7 MG/DL (1.8-2.4) L Total Bilirubin 0.4 MG/DL (0.2-1.0) Aspartate Amino Transf (AST/SGOT) 29 U/L (15-37) Alanine Aminotransferase (ALT/SGPT) 27 U/L (12-78) Alkaline Phosphatase 394 U/L (46-116) H Total Protein 6.6 G/DL (6.4-8.2) Albumin 2.3 G/DL (3.4-5.0) L Globulin 4.3 g/dL Albumin/Globulin Ratio 0.5 (1.0-2.7) L Height (Feet): 5 Height (Inches): 6.00 Weight (Pounds): 147 General Appearance: no apparent distress Cardiovascular: normal rate Respiratory/Chest: normal breath sounds, no respiratory distress, other - mech vent Abdominal Exam: normal bowel sounds, non tender, soft, GT site - c/d/i Extremities: non-tender Katina Garcia N.P. Mar 03, 2017 14:10
--- NOTE | 2017-03-03 15:40 | Diagnostic Imaging Report ---
Indications: Needs long-term IV access Technique: Procedure performed at bedside. Procedural timeout performed. Ultrasound confirms patent compressible brachial vein. Total sterile technique, including sterile probe cover and sterile gel, sterile gloves, hand hygiene, hat, mask,, sterile gown, large sterile drape, and preparation with 2% chlorhexidine utilized. Local anesthesia with 1% lidocaine. Under real-time ultrasound guidance, puncture brachial vein using 21-gauge needle, passage 0.018 guidewire, exchange for 5 [place] peel-away sheath. 5 [place] Bard dual-lumen power PICC cut to 44 cm. It was inserted through the peel-away sheath. Peel-away sheath and guidewire removed. Catheter fixed to the skin. Both catheter ports aspirated and flushed. Patient tolerated procedure well, without immediate complication. Followup chest x-ray obtained, documents catheter tip position at the cavoatrial junction Impression: Successful bedside placement of left arm PICC under sonographic guidance, as described above.
[2017-03-03 16:00] VITALS: BP 138/88
[2017-03-03] MEDS ORDERED: Tubing IV Secondary IV ONE (16:17)
[2017-03-03] MEDS ORDERED: NS 500ML ONE (16:17)
[2017-03-03] MEDS: Micafungin 100 MG in NS 110 ML IVPB SCH (16:32)
--- NOTE | 2017-03-03 16:44 | Infectious Diseases Prog Note ---
Assessment/Plan Assessment/Plan Assessment: Fungemia Shelli tropicalis Probable PICC( 01/22) infection removed on 03/02 Leukocytosis- , improved -CT abd/p -per my review- infiltrates/consolidation bibasilar (report pending) -Afebrile Recent persistent low grade CONS bacteremia- being treated for presumed endocarditis/endovascular source -Bcx 01/21 2/4 CONS, 01/23 + 1/, 01/26, +/ -TTE very limited, no vegetations seen. HUONG could not be done Recent Providencia UTI s/p 14d Aztreonam Hx of PNA - hx sp cx ACB ( colonizer ) Recent coffee ground emesis -EGD 01/2017: gastritis; on coumadin History of chronically elevated alkaline phosphatase CVA with anoxic brain injury Sacral decubitus. Ventilator-dependent respiratory failure. History of trach and PEG placement. COPD. Esophagitis, Hx EGD : . Minimum distal esophagitis. Gastritis, status post biopsy. 01/23 Diabetes. Anxiety. Anemia. Plan: - Cont Mycamine d# 3 , change to Diflucan d# 1 -Continue IV Vancomycin per prior duration for possible endocarditis, # 41 /42 -Continue IV aztreonam # 5 / 7 pending CXR, sputum cx, u/a for possible PNA, r/o UTI -f/u cx( bl ) -Monitor CBC/BMP, temperatures -trach/peg care -aspiration precautions -wound care Subjective Allergies: Coded Allergies: OXYTETRACYCLINE (Unverified Allergy, Unknown, 09/05/13) PENICILLINS (Unverified Allergy, Unknown, 09/05/13) Uncoded Allergies: PLASTIC TAPE (Allergy, Mild, ITCHINESS, 08/08/15) MEDICAL TAPE (Allergy, Unknown, 12/10/16) Subjective afebrile , comfortable on vent Objective Vital Signs Last 24 Hour Vital Signs Date Time Temp Pulse Resp B/P (MAP) Pulse Ox O2 Delivery O2 Flow Rate FiO2 03/03/17 16:00 40 03/03/17 14:56 77 16 50 03/03/17 12:43 73 16 50 03/03/17 12:00 98.1 73 15 140/87 99 Mechanical Ventilator 40 03/03/17 12:00 40 03/03/17 12:00 69 03/03/17 10:45 84 16 50 03/03/17 09:10 77 16 50 03/03/17 08:00 40 03/03/17 08:00 99.7 73 16 138/84 97 Mechanical Ventilator 40 03/03/17 08:00 69 03/03/17 06:40 76 20 50 03/03/17 04:47 75 16 50 03/03/17 04:00 80 03/03/17 04:00 97.9 78 20 137/90 100 Mechanical Ventilator 40 03/03/17 04:00 77 15 50 03/03/17 04:00 40 03/03/17 00:57 77 16 40 03/03/17 00:00 81 03/03/17 00:00 98.1 81 20 143/92 100 Mechanical Ventilator 40 03/02/17 23:15 85 16 40 03/02/17 21:37 85 16 40 03/02/17 20:00 98.2 88 20 140/99 92 Mechanical Ventilator 03/02/17 20:00 40 03/02/17 19:39 90 16 40 03/02/17 19:08 85 03/02/17 16:59 81 17 40 Height (Feet): 5 Height (Inches): 6.00 Weight (Pounds): 147 HEENT: mucous membranes moist Respiratory/Chest: no accessory muscle use Cardiovascular: regularly irregular Abdomen: soft, non tender Microbiology Date/Time Source Procedure Growth Status 03/01/17 12:30 Blood Blood Culture - Preliminary NO GROWTH AFTER 24 HOURS Resulted 03/01/17 12:25 Blood Blood Culture - Preliminary NO GROWTH AFTER 24 HOURS Resulted Laboratory Tests Test 03/03/17 04:15 White Blood Count 10.8 K/UL (4.8-10.8) Red Blood Count 3.63 M/UL (4.70-6.10) L Hemoglobin 11.5 G/DL (14.2-18.0) L Hematocrit 32.3 % (42.0-52.0) L Mean Corpuscular Volume 89 FL (80-99) Mean Corpuscular Hemoglobin 31.7 PG (27.0-31.0) H Mean Corpuscular Hemoglobin Concent 35.7 G/DL (32.0-36.0) Red Cell Distribution Width 12.7 % (11.6-14.8) Platelet Count 248 K/UL (150-450) Mean Platelet Volume 9.1 FL (6.5-10.1) Neutrophils (%) (Auto) 66.1 % (45.0-75.0) Lymphocytes (%) (Auto) 19.4 % (20.0-45.0) L Monocytes (%) (Auto) 7.5 % (1.0-10.0) Eosinophils (%) (Auto) 6.3 % (0.0-3.0) H Basophils (%) (Auto) 0.7 % (0.0-2.0) Erythrocyte Sedimentation Rate 70 MM/HR (0-20) H Sodium Level 142 MMOL/L (136-145) Potassium Level 2.8 MMOL/L (3.5-5.1) L Chloride Level 109 MMOL/L (98-107) H Carbon Dioxide Level 24 MMOL/L (21-32) Anion Gap 10 mmol/L (5-15) Blood Urea Nitrogen 15 mg/dL (7-18) Creatinine 0.7 MG/DL (0.55-1.30) Estimat Glomerular Filtration Rate > 60 mL/min (>60) Glucose Level 140 MG/DL (74-106) H Calcium Level 8.7 MG/DL (8.5-10.1) Phosphorus Level 2.2 MG/DL (2.5-4.9) L Magnesium Level 1.7 MG/DL (1.8-2.4) L Total Bilirubin 0.4 MG/DL (0.2-1.0) Aspartate Amino Transf (AST/SGOT) 29 U/L (15-37) Alanine Aminotransferase (ALT/SGPT) 27 U/L (12-78) Alkaline Phosphatase 394 U/L (46-116) H Total Protein 6.6 G/DL (6.4-8.2) Albumin 2.3 G/DL (3.4-5.0) L Globulin 4.3 g/dL Albumin/Globulin Ratio 0.5 (1.0-2.7) L Current Medications Medications (Trade) Dose Ordered Sig/Sima Route PRN Reason Start Time Stop Time Status Last Admin Dose Admin Acetaminophen (Tylenol) 650 mg Q4H PRN ORAL FEVER 02/27/17 23:45 03/29/17 23:44 Albuterol/ Ipratropium (Albuterol/ Ipratropium) 3 ml EVERY 4 HOURS PRN HHN Shortness of Breath 02/27/17 23:45 03/04/17 23:44 Amantadine HCl (Symmetrel) 100 mg DAILY GT 02/28/17 09:00 03/30/17 08:59 03/03/17 10:13 Ascorbic Acid (Vitamin C) 500 mg DAILY GT 02/28/17 09:00 03/30/17 08:59 03/03/17 10:13 Atorvastatin Calcium (Lipitor) 10 mg BEDTIME GT 02/28/17 21:00 03/30/17 20:59 03/02/17 21:46 Aztreonam 1 gm/ Dextrose 55 ml @ 110 mls/hr Q8HR IVPB 02/28/17 11:15 03/07/17 11:14 03/03/17 15:55 Chlorhexidine Gluconate (Paulina-Hex 2%) 1 applic DAILY@1999 TOPIC 03/02/17 20:00 04/01/17 19:59 Clotrimazole (Lotrimin) 1 applic EVERY 12 HOURS TOPIC 03/01/17 21:00 03/31/17 20:59 03/03/17 10:15 Dextrose (Dextrose 50%) STAT PRN IV Hypoglycemia 02/27/17 23:45 03/29/17 23:44 Lansoprazole (Prevacid) 30 mg Q12HR GT 02/28/17 21:00 03/30/17 20:59 03/03/17 10:13 Lorazepam (Ativan 2mg/ml 1ml) 2 mg EVERY 2 HOURS PRN IV For Anxiety 02/27/17 23:45 03/06/17 23:44 Micafungin Sodium 100 mg/Sodium Chloride 110 ml @ 110 mls/hr Q24H IVPB 03/01/17 16:00 03/08/17 15:59 03/03/17 16:32 Midodrine (Pro-Amatine) 10 mg Q8HR GT 02/28/17 06:00 03/30/17 05:59 Morphine Sulfate (Morphine Sulfate) 4 mg EVERY 4 HOURS PRN IVP Severe Pain (Pain Scale 7-10) 02/27/17 23:45 03/06/17 23:44 Ondansetron HCl (Zofran) 4 mg Q6H PRN IVP Nausea & Vomiting 02/27/17 23:45 03/29/17 23:44 Potassium Phosphate 30 mm/ Sodium Chloride 285 ml @ 47.5 mls/hr ONCE ONCE IV 03/03/17 14:00 03/03/17 19:59 03/03/17 15:45 Tramadol HCl (Ultram) 50 mg Q12HR PRN GT For Pain 02/27/17 23:30 03/06/17 23:29 Vancomycin HCl (Vanco rx to dose) 1 ea DAILY PRN MISC . 02/28/17 10:30 03/30/17 10:29 Vancomycin/Sodium Chloride 250 ml @ 166.667 mls/hr Q12HR@0500,1700 IVPB 03/01/17 17:00 03/06/17 16:59 03/03/17 05:38 MARCELLA MA M.D. Mar 03, 2017 16:44
[2017-03-03 20:00] VITALS: BP 163/93
[2017-03-03] MEDS: Dyna-Hex 2% Top Sol 2oz TOPIC SCH (21:08)
[2017-03-04] VITALS: BP 154/88
[2017-03-04 04:00] VITALS: BP 133/87
[2017-03-04] MEDS: Vancomycin 750mg/NS 250ml IVPB SCH (05:17)
[2017-03-04 05:20] LABS: BASOPHILS % (AUTO) 0.5 % (0.0-2.0); HEMATOCRIT 33.4 % (42.0-52.0); HEMOGLOBIN 11.4 G/DL (14.2-18.0); LYMPHOCYTES % (AUTO) 12.1 % (20.0-45.0); MEAN CORPUSCULAR VOLUME 90 FL (80-99); MONOCYTES % (AUTO) 5.9 % (1.0-10.0); NEUTROPHILS % (AUTO) 77.6 % (45.0-75.0); PLATELET COUNT 245 K/UL (150-450); RED BLOOD COUNT 3.72 M/UL (4.70-6.10); RED CELL DISTRIBUTION WIDTH 13.2 % (11.6-14.8); WHITE BLOOD COUNT 14.1 K/UL (4.8-10.8)
[2017-03-04] MEDS: Midodrine 10mg tab GT SCH ×3 (05:57→21:49)
[2017-03-04] MEDS: Aztreonam Inj 1 GM in D5W 55 ML IVPB SCH ×3 (06:02→23:50)
[2017-03-04 06:04] LABS: ALANINE AMINOTRANSFERASE 30 U/L (12-78); ALBUMIN 2.5 G/DL (3.4-5.0); ALBUMIN/GLOBULIN RATIO 0.6 (1.0-2.7); ALKALINE PHOSPHATASE 399 U/L (46-116); ANION GAP 10 mmol/L (5-15); ASPARTATE AMINO TRANSFERASE 34 U/L (15-37); BILIRUBIN,TOTAL 0.3 MG/DL (0.2-1.0); BLOOD UREA NITROGEN 14 mg/dL (7-18); CALCIUM 8.5 MG/DL (8.5-10.1); CARBON DIOXIDE 26 MMOL/L (21-32); CHLORIDE 108 MMOL/L (98-107); CREATININE 0.7 MG/DL (0.55-1.30); PHOSPHORUS 2.7 MG/DL (2.5-4.9); POTASSIUM 3.2 MMOL/L (3.5-5.1); SODIUM 143 MMOL/L (136-145)
[2017-03-04 08:00] VITALS: BP 127/91
--- NOTE | 2017-03-04 08:30 | Progress Note ---
DATE: 03/02/2017 NOTE: POOR AUDIO QUALITY SUBJECTIVE: The patient is awake, obtunded, afebrile, and hemodynamically stable. PHYSICAL EXAMINATION: VITAL SIGNS: Blood pressure is 140/99, pulse is 92, respirations 20, and temperature is 98.2. HEENT: Eyes were normal. ENT, mucous membranes were moist and intact. NECK: Supple with no JVD without lymph nodes. Tracheostomy site is clean. LUNGS: Clear. There is bibasilar rhonchi at both bases and laterally. ABDOMEN: Soft and nontender with normal bowel sounds. Gastrostomy site is clean. EXTREMITIES: Warm without cyanosis, clubbing, or edema. LABORATORY AND DIAGNOSTIC DATA: Hemoglobin is 13.3, hematocrit 38.3 with MCV of 89, WBC of 9.9, and platelets 291,000. His BUN and creatinine is 11 and 0.8 respectively. His sodium is 142, potassium 2.3, chloride 108, and CO2 is 25. SGOT and SGPT are normal and alkaline phosphatase is 429. Albumin is 2.5 and total protein is 7. Abdominal ultrasound revealed nonspecific gas pattern dilated loop. IMPRESSION AND PLAN: The patient has complex history of infection. Recurrent leukocytosis with today. He had transthoracic echocardiogram transesophageal echocardiogram could not be done. He has sacral decubitus. The patient has been on aztreonam for seven days and is now also on vancomycin for endocarditis for the other days. The patient's leukocytosis has improved. Discontinue vancomycin, aztreonam, and micafungin. Repeat laboratory tests will be done in the a.m. Boris Arevalo M.D. DR: BIB JOB#: [id number] CC:
[2017-03-04] MEDS: Ascorbic Acid 500mg tab GT SCH (09:12)
[2017-03-04] MEDS: Amantadine 100mg cap GT SCH (09:12)
--- NOTE | 2017-03-04 10:24 | Infectious Diseases Prog Note ---
Assessment/Plan Assessment/Plan Assessment: Fungemia Shelli tropicalis Probable PICC( 01/22) infection removed on 03/02 Leukocytosis- , -CT abd/p -per my review- infiltrates/consolidation bibasilar (report pending) -Afebrile Recent persistent low grade CONS bacteremia- being treated for presumed endocarditis/endovascular source -Bcx 01/21 2/4 CONS, 01/23 + 1/, 01/26, +/ -TTE very limited, no vegetations seen. HUONG could not be done Recent Providencia UTI s/p 14d Aztreonam repeat UCx : VRE and Provid. Hx of PNA - hx sp cx ACB ( colonizer ) Recent coffee ground emesis -EGD 01/2017: gastritis; on coumadin History of chronically elevated alkaline phosphatase CVA with anoxic brain injury Sacral decubitus. Ventilator-dependent respiratory failure. History of trach and PEG placement. COPD. Esophagitis, Hx EGD : . Minimum distal esophagitis. Gastritis, status post biopsy. 01/23 Diabetes. Anxiety. Anemia. Plan: - Cont Diflucan d# 2/ , add Zyvox d# 1 - DC IV Vancomycin per prior duration for possible endocarditis, # 42 /42 -Continue IV aztreonam # 6 / 7 pending CXR, sputum cx, u/a for possible PNA, r /o UTI 03/03 SP Mycamine d# 3 -f/u cx( bl ) -Monitor CBC/BMP, temperatures -trach/peg care -aspiration precautions -wound care Subjective Allergies: Coded Allergies: OXYTETRACYCLINE (Unverified Allergy, Unknown, 09/05/13) PENICILLINS (Unverified Allergy, Unknown, 09/05/13) Uncoded Allergies: PLASTIC TAPE (Allergy, Mild, ITCHINESS, 08/08/15) MEDICAL TAPE (Allergy, Unknown, 12/10/16) Subjective leukocytosis Objective Vital Signs Last 24 Hour Vital Signs Date Time Temp Pulse Resp B/P (MAP) Pulse Ox O2 Delivery O2 Flow Rate FiO2 03/04/17 09:03 69 14 50 03/04/17 08:00 71 03/04/17 08:00 40 03/04/17 08:00 97.7 69 14 127/91 99 Mechanical Ventilator 40 03/04/17 07:10 68 14 50 03/04/17 05:36 71 14 50 03/04/17 04:00 99.1 76 15 133/87 99 Mechanical Ventilator 40 03/04/17 04:00 70 03/04/17 04:00 40 03/04/17 03:30 74 14 50 03/04/17 01:00 71 17 50 03/04/17 00:00 72 03/04/17 00:00 99.1 72 16 154/88 100 Mechanical Ventilator 40 03/03/17 23:21 72 17 50 03/03/17 21:41 75 16 50 03/03/17 20:00 98.2 71 20 163/93 100 Mechanical Ventilator 40 03/03/17 20:00 71 03/03/17 20:00 40 03/03/17 19:16 72 19 50 03/03/17 16:44 82 16 50 03/03/17 16:00 76 03/03/17 16:00 40 03/03/17 16:00 98.4 76 16 138/88 100 Mechanical Ventilator 40 03/03/17 14:56 77 16 50 03/03/17 12:43 73 16 50 03/03/17 12:00 98.1 73 15 140/87 99 Mechanical Ventilator 40 03/03/17 12:00 40 03/03/17 12:00 69 03/03/17 10:45 84 16 50 Height (Feet): 5 Height (Inches): 6.00 Weight (Pounds): 147 HEENT: mucous membranes moist Respiratory/Chest: no respiratory distress Microbiology Date/Time Source Procedure Growth Status 03/01/17 12:30 Blood Blood Culture - Preliminary NO GROWTH AFTER 48 HOURS Resulted 03/01/17 12:25 Blood Blood Culture - Preliminary NO GROWTH AFTER 48 HOURS Resulted Laboratory Tests Test 03/04/17 03:40 White Blood Count 14.1 K/UL (4.8-10.8) H Red Blood Count 3.72 M/UL (4.70-6.10) L Hemoglobin 11.4 G/DL (14.2-18.0) L Hematocrit 33.4 % (42.0-52.0) L Mean Corpuscular Volume 90 FL (80-99) Mean Corpuscular Hemoglobin 30.6 PG (27.0-31.0) Mean Corpuscular Hemoglobin Concent 34.0 G/DL (32.0-36.0) Red Cell Distribution Width 13.2 % (11.6-14.8) Platelet Count 245 K/UL (150-450) Mean Platelet Volume 10.3 FL (6.5-10.1) H Neutrophils (%) (Auto) 77.6 % (45.0-75.0) H Lymphocytes (%) (Auto) 12.1 % (20.0-45.0) L Monocytes (%) (Auto) 5.9 % (1.0-10.0) Eosinophils (%) (Auto) 4.0 % (0.0-3.0) H Basophils (%) (Auto) 0.5 % (0.0-2.0) Sodium Level 143 MMOL/L (136-145) Potassium Level 3.2 MMOL/L (3.5-5.1) L Chloride Level 108 MMOL/L (98-107) H Carbon Dioxide Level 26 MMOL/L (21-32) Anion Gap 10 mmol/L (5-15) Blood Urea Nitrogen 14 mg/dL (7-18) Creatinine 0.7 MG/DL (0.55-1.30) Estimat Glomerular Filtration Rate > 60 mL/min (>60) Glucose Level 130 MG/DL (74-106) H Calcium Level 8.5 MG/DL (8.5-10.1) Phosphorus Level 2.7 MG/DL (2.5-4.9) Magnesium Level 2.0 MG/DL (1.8-2.4) Total Bilirubin 0.3 MG/DL (0.2-1.0) Aspartate Amino Transf (AST/SGOT) 34 U/L (15-37) Alanine Aminotransferase (ALT/SGPT) 30 U/L (12-78) Alkaline Phosphatase 399 U/L (46-116) H Total Protein 6.8 G/DL (6.4-8.2) Albumin 2.5 G/DL (3.4-5.0) L Globulin 4.3 g/dL Albumin/Globulin Ratio 0.6 (1.0-2.7) L Current Medications Medications (Trade) Dose Ordered Sig/Sima Route PRN Reason Start Time Stop Time Status Last Admin Dose Admin Acetaminophen (Tylenol) 650 mg Q4H PRN ORAL FEVER 02/27/17 23:45 03/29/17 23:44 Albuterol/ Ipratropium (Albuterol/ Ipratropium) 3 ml EVERY 4 HOURS PRN HHN Shortness of Breath 02/27/17 23:45 03/04/17 23:44 Amantadine HCl (Symmetrel) 100 mg DAILY GT 02/28/17 09:00 03/30/17 08:59 03/04/17 09:12 Ascorbic Acid (Vitamin C) 500 mg DAILY GT 02/28/17 09:00 03/30/17 08:59 03/04/17 09:12 Atorvastatin Calcium (Lipitor) 10 mg BEDTIME GT 02/28/17 21:00 03/30/17 20:59 03/03/17 21:08 Aztreonam 1 gm/ Dextrose 55 ml @ 110 mls/hr Q8HR IVPB 02/28/17 11:15 03/07/17 11:14 03/04/17 06:02 Chlorhexidine Gluconate (Paulina-Hex 2%) 1 applic DAILY@1999 TOPIC 03/02/17 20:00 04/01/17 19:59 03/03/17 21:08 Clotrimazole (Lotrimin) 1 applic EVERY 12 HOURS TOPIC 03/01/17 21:00 03/31/17 20:59 03/04/17 09:11 Dextrose (Dextrose 50%) STAT PRN IV Hypoglycemia 02/27/17 23:45 03/29/17 23:44 Fluconazole/ Sodium Chloride 200 ml @ 100 mls/hr Q24H IV 03/03/17 18:00 03/10/17 17:59 03/03/17 17:50 Lansoprazole (Prevacid) 30 mg Q12HR GT 02/28/17 21:00 03/30/17 20:59 03/04/17 09:12 Lorazepam (Ativan 2mg/ml 1ml) 2 mg EVERY 2 HOURS PRN IV For Anxiety 02/27/17 23:45 03/06/17 23:44 Midodrine (Pro-Amatine) 10 mg Q8HR GT 02/28/17 06:00 03/30/17 05:59 Morphine Sulfate (Morphine Sulfate) 4 mg EVERY 4 HOURS PRN IVP Severe Pain (Pain Scale 7-10) 02/27/17 23:45 03/06/17 23:44 Ondansetron HCl (Zofran) 4 mg Q6H PRN IVP Nausea & Vomiting 02/27/17 23:45 03/29/17 23:44 Tramadol HCl (Ultram) 50 mg Q12HR PRN GT For Pain 02/27/17 23:30 03/06/17 23:29 Vancomycin HCl (Vanco rx to dose) 1 ea DAILY PRN MISC . 02/28/17 10:30 03/30/17 10:29 Vancomycin/Sodium Chloride 250 ml @ 166.667 mls/hr Q12HR@0500,1700 IVPB 03/01/17 17:00 03/06/17 16:59 03/04/17 05:17 MARCELLA MA M.D. Mar 04, 2017 10:24
--- NOTE | 2017-03-04 10:40 | GI Progress Note ---
Assessment/Plan Problems: (1) Feeding by G-tube ICD Codes: Z93.1 - Feeding by G-tube SNOMED: 950040293 (2) Coffee ground emesis ICD Codes: K92.0 - Hematemesis SNOMED: 582878157, 09520462 (3) Ileus ICD Codes: K56.7 - Ileus, unspecified SNOMED: 922344785 (4) Vomiting ICD Codes: R11.10 - Vomiting, unspecified SNOMED: 992315772 (5) Gastrointestinal hemorrhage ICD Codes: K92.2 - Gastrointestinal hemorrhage, unspecified SNOMED: 54965314 Status: stable Status Narrative Discussed with Dr. Rosas. Assessment/Plan OB stool positive KUB reviewed >> negative for ileus stable H&H hold EGD for now prn transfusions ppi electrolyte correction fu stool C.diff GTFs per dietary fu labs Subjective Subjective limited Objective Last 24 Hour Vital Signs Date Time Temp Pulse Resp B/P (MAP) Pulse Ox O2 Delivery O2 Flow Rate FiO2 03/04/17 09:03 69 14 50 03/04/17 08:00 71 03/04/17 08:00 40 03/04/17 08:00 97.7 69 14 127/91 99 Mechanical Ventilator 40 03/04/17 07:10 68 14 50 03/04/17 05:36 71 14 50 03/04/17 04:00 99.1 76 15 133/87 99 Mechanical Ventilator 40 03/04/17 04:00 70 03/04/17 04:00 40 03/04/17 03:30 74 14 50 03/04/17 01:00 71 17 50 03/04/17 00:00 72 03/04/17 00:00 99.1 72 16 154/88 100 Mechanical Ventilator 40 03/03/17 23:21 72 17 50 03/03/17 21:41 75 16 50 03/03/17 20:00 98.2 71 20 163/93 100 Mechanical Ventilator 40 03/03/17 20:00 71 03/03/17 20:00 40 03/03/17 19:16 72 19 50 03/03/17 16:44 82 16 50 03/03/17 16:00 76 03/03/17 16:00 40 03/03/17 16:00 98.4 76 16 138/88 100 Mechanical Ventilator 40 12/12/17 14:56 77 16 50 03/03/17 12:43 73 16 50 03/03/17 12:00 98.1 73 15 140/87 99 Mechanical Ventilator 40 03/03/17 12:00 40 03/03/17 12:00 69 03/03/17 10:45 84 16 50 Intake and Output 03/04/17 03/05/17 19:00 07:00 # Bowel Movements 1 Laboratory Tests Test 03/04/17 03:40 White Blood Count 14.1 K/UL (4.8-10.8) H Red Blood Count 3.72 M/UL (4.70-6.10) L Hemoglobin 11.4 G/DL (14.2-18.0) L Hematocrit 33.4 % (42.0-52.0) L Mean Corpuscular Volume 90 FL (80-99) Mean Corpuscular Hemoglobin 30.6 PG (27.0-31.0) Mean Corpuscular Hemoglobin Concent 34.0 G/DL (32.0-36.0) Red Cell Distribution Width 13.2 % (11.6-14.8) Platelet Count 245 K/UL (150-450) Mean Platelet Volume 10.3 FL (6.5-10.1) H Neutrophils (%) (Auto) 77.6 % (45.0-75.0) H Lymphocytes (%) (Auto) 12.1 % (20.0-45.0) L Monocytes (%) (Auto) 5.9 % (1.0-10.0) Eosinophils (%) (Auto) 4.0 % (0.0-3.0) H Basophils (%) (Auto) 0.5 % (0.0-2.0) Sodium Level 143 MMOL/L (136-145) Potassium Level 3.2 MMOL/L (3.5-5.1) L Chloride Level 108 MMOL/L (98-107) H Carbon Dioxide Level 26 MMOL/L (21-32) Anion Gap 10 mmol/L (5-15) Blood Urea Nitrogen 14 mg/dL (7-18) Creatinine 0.7 MG/DL (0.55-1.30) Estimat Glomerular Filtration Rate > 60 mL/min (>60) Glucose Level 130 MG/DL (74-106) H Calcium Level 8.5 MG/DL (8.5-10.1) Phosphorus Level 2.7 MG/DL (2.5-4.9) Magnesium Level 2.0 MG/DL (1.8-2.4) Total Bilirubin 0.3 MG/DL (0.2-1.0) Aspartate Amino Transf (AST/SGOT) 34 U/L (15-37) Alanine Aminotransferase (ALT/SGPT) 30 U/L (12-78) Alkaline Phosphatase 399 U/L (46-116) H Total Protein 6.8 G/DL (6.4-8.2) Albumin 2.5 G/DL (3.4-5.0) L Globulin 4.3 g/dL Albumin/Globulin Ratio 0.6 (1.0-2.7) L Height (Feet): 5 Height (Inches): 6.00 Weight (Pounds): 147 General Appearance: no apparent distress, lethargic Cardiovascular: normal rate Respiratory/Chest: no respiratory distress Abdominal Exam: soft, GT site - c/d/i Katina Garcia N.P. Mar 04, 2017 10:40
[2017-03-04] MEDS ORDERED: Potassium Chloride 40 MEQ in Sodium Chloride 500ML 550 ML IVPB ONE (10:45)
[2017-03-04 10:52] LABS: BASOPHILS % (AUTO) 0.6 % (0.0-2.0); EOSINOPHILS % (AUTO) 4.8 % (0.0-3.0); HEMATOCRIT 34.7 % (42.0-52.0); HEMOGLOBIN 10.8 G/DL (14.2-18.0); LYMPHOCYTES % (AUTO) 15.8 % (20.0-45.0); MEAN CORPUSCULAR VOLUME 91 FL (80-99); MONOCYTES % (AUTO) 4.9 % (1.0-10.0); NEUTROPHILS % (AUTO) 73.9 % (45.0-75.0); PLATELET COUNT 250 K/UL (150-450); RED BLOOD COUNT 3.83 M/UL (4.70-6.10); RED CELL DISTRIBUTION WIDTH 13.5 % (11.6-14.8); WHITE BLOOD COUNT 15.2 K/UL (4.8-10.8)
--- NOTE | 2017-03-04 11:58 | Pulmonology Progress Note ---
Assessment/Plan Problems: (1) GI bleed (2) Chronic respiratory failure (3) Sepsis (4) History of CVA (cerebrovascular accident) (5) Feeding by G-tube Assessment/Plan wbc still high continue abx on Micafungin check h/h f/u GI recommendations Hem stool positive tolerating diet K supplement, Phos supplement dvt prophylaxis. f/u ID recommendations Subjective ROS Limited/Unobtainable: No Constitutional: Reports: no symptoms HEENT: Repors: no symptoms Respiratory: Reports: no symptoms Allergies: Coded Allergies: OXYTETRACYCLINE (Unverified Allergy, Unknown, 09/05/13) PENICILLINS (Unverified Allergy, Unknown, 09/05/13) Uncoded Allergies: PLASTIC TAPE (Allergy, Mild, ITCHINESS, 08/08/15) MEDICAL TAPE (Allergy, Unknown, 12/10/16) Objective Last 24 Hour Vital Signs Date Time Temp Pulse Resp B/P (MAP) Pulse Ox O2 Delivery O2 Flow Rate FiO2 03/04/17 10:49 72 16 50 03/04/17 09:03 69 14 50 03/04/17 08:00 71 03/04/17 08:00 40 03/04/17 08:00 97.7 69 14 127/91 99 Mechanical Ventilator 40 03/04/17 07:10 68 14 50 03/04/17 05:36 71 14 50 03/04/17 04:00 99.1 76 15 133/87 99 Mechanical Ventilator 40 03/04/17 04:00 70 03/04/17 04:00 40 03/04/17 03:30 74 14 50 03/04/17 01:00 71 17 50 03/04/17 00:00 72 03/04/17 00:00 99.1 72 16 154/88 100 Mechanical Ventilator 40 03/03/17 23:21 72 17 50 03/03/17 21:41 75 16 50 03/03/17 20:00 98.2 71 20 163/93 100 Mechanical Ventilator 40 03/03/17 20:00 71 03/03/17 20:00 40 03/03/17 19:16 72 19 50 03/03/17 16:44 82 16 50 03/03/17 16:00 76 03/03/17 16:00 40 03/03/17 16:00 98.4 76 16 138/88 100 Mechanical Ventilator 40 03/03/17 14:56 77 16 50 03/03/17 12:43 73 16 50 03/03/17 12:00 98.1 73 15 140/87 99 Mechanical Ventilator 40 03/03/17 12:00 40 03/03/17 12:00 69 Intake and Output 03/04/17 03/05/17 19:00 07:00 # Bowel Movements 1 Objective General Appearance: WD/WN HEENT: normocephalic, trach intact Respiratory/Chest: chest wall non-tender, lungs clear Cardiovascular: normal peripheral pulses, normal rate Genitourinary: normal external genitalia Extremities: no cyanosis Skin: no lesions Neurologic/Psychiatric: 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 grossly normal, abnormal gait Lymphatic: no neck adenopathy Microbiology Date/Time Source Procedure Growth Status 03/01/17 12:30 Blood Blood Culture - Preliminary NO GROWTH AFTER 48 HOURS Resulted 03/01/17 12:25 Blood Blood Culture - Preliminary NO GROWTH AFTER 48 HOURS Resulted Laboratory Tests 03/04/17 03:40: White Blood Count 14.1H, Red Blood Count 3.72L, Hemoglobin 11.4L, Hematocrit 33.4L, Mean Corpuscular Volume 90, Mean Corpuscular Hemoglobin 30.6, Mean Corpuscular Hemoglobin Concent 34.0, Red Cell Distribution Width 13.2, Platelet Count 245, Mean Platelet Volume 10.3H, Neutrophils (%) (Auto) 77.6H, Lymphocytes (%) (Auto) 12.1L, Monocytes (%) (Auto) 5.9, Eosinophils (%) (Auto) 4.0H, Basophils (%) (Auto) 0.5, Sodium Level 143, Potassium Level 3.2L, Chloride Level 108H, Carbon Dioxide Level 26, Anion Gap 10, Blood Urea Nitrogen 14, Creatinine 0.7, Estimat Glomerular Filtration Rate > 60, Glucose Level 130H , Calcium Level 8.5, Phosphorus Level 2.7, Magnesium Level 2.0, Total Bilirubin 0.3, Aspartate Amino Transf (AST/SGOT) 34, Alanine Aminotransferase (ALT/SGPT) 30, Alkaline Phosphatase 399H, Total Protein 6.8, Albumin 2.5L, Globulin 4.3, Albumin/Globulin Ratio 0.6L 03/04/17 09:18: White Blood Count 15.2H, Red Blood Count 3.83L, Hemoglobin 10.8L, Hematocrit 34.7L, Mean Corpuscular Volume 91, Mean Corpuscular Hemoglobin 28.1, Mean Corpuscular Hemoglobin Concent 31.1L, Red Cell Distribution Width 13.5, Platelet Count 250, Mean Platelet Volume 8.8, Neutrophils (%) (Auto) 73.9, Lymphocytes (%) (Auto) 15.8L, Monocytes (%) (Auto) 4.9, Eosinophils (%) (Auto) 4.8H, Basophils (%) (Auto) 0.6 Current Medications Medications (Trade) Dose Ordered Sig/Sima Route PRN Reason Start Time Stop Time Status Last Admin Dose Admin Acetaminophen (Tylenol) 650 mg Q4H PRN ORAL FEVER 02/27/17 23:45 03/29/17 23:44 Albuterol/ Ipratropium (Albuterol/ Ipratropium) 3 ml EVERY 4 HOURS PRN HHN Shortness of Breath 02/27/17 23:45 03/04/17 23:44 Amantadine HCl (Symmetrel) 100 mg DAILY GT 02/28/17 09:00 03/30/17 08:59 03/04/17 09:12 Ascorbic Acid (Vitamin C) 500 mg DAILY GT 02/28/17 09:00 03/30/17 08:59 03/04/17 09:12 Atorvastatin Calcium (Lipitor) 10 mg BEDTIME GT 02/28/17 21:00 03/30/17 20:59 03/03/17 21:08 Aztreonam 1 gm/ Dextrose 55 ml @ 110 mls/hr Q8HR IVPB 02/28/17 11:15 03/07/17 11:14 03/04/17 06:02 Chlorhexidine Gluconate (Paulina-Hex 2%) 1 applic DAILY@2000 TOPIC 03/02/17 20:00 04/01/17 19:59 03/03/17 21:08 Clotrimazole (Lotrimin) 1 applic EVERY 12 HOURS TOPIC 03/01/17 21:00 03/31/17 20:59 03/04/17 09:11 Dextrose (Dextrose 50%) STAT PRN IV Hypoglycemia 02/27/17 23:45 03/29/17 23:44 Fluconazole/ Sodium Chloride 200 ml @ 100 mls/hr Q24H IV 03/03/17 18:00 03/10/17 17:59 03/03/17 17:50 Lansoprazole (Prevacid) 30 mg Q12HR GT 02/28/17 21:00 03/30/17 20:59 03/04/17 09:12 Linezolid 300 ml @ 300 mls/hr Q12HR IVPB 03/04/17 11:30 03/11/17 11:29 03/04/17 11:02 Lorazepam (Ativan 2mg/ml 1ml) 2 mg EVERY 2 HOURS PRN IV For Anxiety 02/27/17 23:45 03/06/17 23:44 Midodrine (Pro-Amatine) 10 mg Q8HR GT 02/28/17 06:00 03/30/17 05:59 Morphine Sulfate (Morphine Sulfate) 4 mg EVERY 4 HOURS PRN IVP Severe Pain (Pain Scale 7-10) 02/27/17 23:45 03/06/17 23:44 Ondansetron HCl (Zofran) 4 mg Q6H PRN IVP Nausea & Vomiting 02/27/17 23:45 03/29/17 23:44 Potassium Chloride 100 ml @ 50 mls/hr Q2H IVPB 03/04/17 11:00 03/04/17 14:59 03/04/17 11:02 [place] CRAMER Mar 04, 2017 11:58
[2017-03-04 12:00] VITALS: BP 145/98
[2017-03-04 16:00] VITALS: BP 140/97
[2017-03-04 20:00] VITALS: BP 144/94
[2017-03-04] MEDS: Dyna-Hex 2% Top Sol 2oz TOPIC SCH (21:49)
[2017-03-05] VITALS: BP 148/87
[2017-03-05 04:00] VITALS: BP 140/81
[2017-03-05 05:27] LABS: BASOPHILS % (AUTO) 0.8 % (0.0-2.0); EOSINOPHILS % (AUTO) 7.3 % (0.0-3.0); HEMATOCRIT 34.7 % (42.0-52.0); HEMOGLOBIN 11.6 G/DL (14.2-18.0); LYMPHOCYTES % (AUTO) 18.9 % (20.0-45.0); MEAN CORPUSCULAR VOLUME 90 FL (80-99); MONOCYTES % (AUTO) 6.7 % (1.0-10.0); NEUTROPHILS % (AUTO) 66.2 % (45.0-75.0); PLATELET COUNT 266 K/UL (150-450); RED BLOOD COUNT 3.85 M/UL (4.70-6.10); RED CELL DISTRIBUTION WIDTH 12.9 % (11.6-14.8); WHITE BLOOD COUNT 13.5 K/UL (4.8-10.8)
[2017-03-05] MEDS: Aztreonam Inj 1 GM in D5W 55 ML IVPB SCH (05:45)
[2017-03-05 06:00] LABS: ANION GAP 6 mmol/L (5-15); BLOOD UREA NITROGEN 16 mg/dL (7-18); CALCIUM 8.7 MG/DL (8.5-10.1); CARBON DIOXIDE 30 MMOL/L (21-32); CHLORIDE 104 MMOL/L (98-107); CREATININE 0.7 MG/DL (0.55-1.30); SODIUM 140 MMOL/L (136-145)
[2017-03-05] MEDS: Midodrine 10mg tab GT SCH ×3 (06:00→21:00)
[2017-03-05 08:00] VITALS: BP 120/73
[2017-03-05] MEDS: Amantadine 100mg cap GT SCH (09:34)
[2017-03-05] MEDS: Ascorbic Acid 500mg tab GT SCH (09:35)
--- NOTE | 2017-03-05 11:01 | Diagnostic Imaging Report ---
APPROVED REPORT CPT Code: 43605 Present Symptoms Comments: R/O DVT BILATERAL: Imaging reveals a patent deep venous system bilaterally. There is no evidence of thrombus within the femoral, popliteal or tibial segments. The greater saphenous veins are also within normal limits. Doppler indicates normal spontaneous flow within these segments.
--- NOTE | 2017-03-05 11:02 | Pulmonology Progress Note ---
Assessment/Plan Problems: (1) GI bleed (2) Chronic respiratory failure (3) Sepsis (4) History of CVA (cerebrovascular accident) (5) Feeding by G-tube Assessment/Plan still diarrhea, wbc still high continue abx on Micafungin check h/h f/u GI recommendations Hem stool positive tolerating diet K supplement, Phos supplement dvt prophylaxis. f/u ID recommendations Subjective ROS Limited/Unobtainable: Yes Constitutional: Reports: no symptoms HEENT: Repors: no symptoms Respiratory: Reports: no symptoms Allergies: Coded Allergies: OXYTETRACYCLINE (Unverified Allergy, Unknown, 09/05/13) PENICILLINS (Unverified Allergy, Unknown, 09/05/13) Uncoded Allergies: PLASTIC TAPE (Allergy, Mild, ITCHINESS, 08/08/15) MEDICAL TAPE (Allergy, Unknown, 12/10/16) Objective Last 24 Hour Vital Signs Date Time Temp Pulse Resp B/P (MAP) Pulse Ox O2 Delivery O2 Flow Rate FiO2 03/05/17 08:50 65 15 50 03/05/17 08:00 50 03/05/17 08:00 99.9 72 15 120/73 99 Mechanical Ventilator 50 03/05/17 07:30 65 03/05/17 07:10 70 15 50 03/05/17 04:45 81 15 50 03/05/17 04:00 85 03/05/17 04:00 40 03/05/17 04:00 98.7 86 21 140/81 98 Mechanical Ventilator 03/05/17 02:56 77 16 50 03/05/17 00:59 79 16 50 03/05/17 00:00 75 03/05/17 00:00 98.2 80 21 148/87 98 Mechanical Ventilator 03/05/17 00:00 40 03/04/17 23:13 73 16 Mechanical Ventilator 50 03/04/17 23:12 73 16 50 03/04/17 20:56 77 18 50 03/04/17 20:00 40 03/04/17 20:00 97.7 72 18 144/94 96 Mechanical Ventilator 03/04/17 20:00 70 03/04/17 18:54 69 18 50 03/04/17 17:00 73 16 50 03/04/17 16:00 71 03/04/17 16:00 98.4 72 20 140/97 93 Mechanical Ventilator 40 03/04/17 16:00 40 03/04/17 15:05 74 16 50 03/04/17 12:55 72 16 50 03/04/17 12:00 40 03/04/17 12:00 71 03/04/17 12:00 98.2 74 16 145/98 100 Mechanical Ventilator 40 Intake and Output 03/05/17 03/06/17 19:00 07:00 # Bowel Movements 1 Objective General Appearance: WD/WN HEENT: normocephalic, trach intact Respiratory/Chest: chest wall non-tender, lungs clear Cardiovascular: normal peripheral pulses, normal rate Genitourinary: normal external genitalia Extremities: no cyanosis Skin: no lesions 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 grossly normal, abnormal gait Lymphatic: no neck adenopathy Laboratory Tests 03/05/17 04:00: White Blood Count 13.5H, Red Blood Count 3.85L, Hemoglobin 11.6L, Hematocrit 34.7L, Mean Corpuscular Volume 90, Mean Corpuscular Hemoglobin 30.2, Mean Corpuscular Hemoglobin Concent 33.6, Red Cell Distribution Width 12.9, Platelet Count 266, Mean Platelet Volume 9.4, Neutrophils (%) (Auto) 66.2, Lymphocytes (% ) (Auto) 18.9L, Monocytes (%) (Auto) 6.7, Eosinophils (%) (Auto) 7.3H, Basophils (%) (Auto) 0.8, Sodium Level 140, Potassium Level 3.0L, Chloride Level 104, Carbon Dioxide Level 30, Anion Gap 6, Blood Urea Nitrogen 16, Creatinine 0.7, Estimat Glomerular Filtration Rate > 60, Glucose Level 119H, Calcium Level 8.7 Current Medications Medications (Trade) Dose Ordered Sig/Sima Route PRN Reason Start Time Stop Time Status Last Admin Dose Admin Acetaminophen (Tylenol) 650 mg Q4H PRN ORAL FEVER 02/27/17 23:45 03/29/17 23:44 Amantadine HCl (Symmetrel) 100 mg DAILY GT 02/28/17 09:00 03/30/17 08:59 03/05/17 09:34 Ascorbic Acid (Vitamin C) 500 mg DAILY GT 02/28/17 09:00 03/30/17 08:59 03/05/17 09:35 Atorvastatin Calcium (Lipitor) 10 mg BEDTIME GT 02/28/17 21:00 03/30/17 20:59 03/04/17 21:50 Aztreonam 1 gm/ Dextrose 55 ml @ 110 mls/hr Q8HR IVPB 02/28/17 11:15 03/07/17 11:14 03/05/17 05:45 Chlorhexidine Gluconate (Paulina-Hex 2%) 1 applic DAILY@2000 TOPIC 03/02/17 20:00 04/01/17 19:59 03/04/17 21:49 Clotrimazole (Lotrimin) 1 applic EVERY 12 HOURS TOPIC 03/01/17 21:00 03/31/17 20:59 03/05/17 09:35 Dextrose (Dextrose 50%) STAT PRN IV Hypoglycemia 02/27/17 23:45 03/29/17 23:44 Fluconazole/ Sodium Chloride 200 ml @ 100 mls/hr Q24H IV 03/03/17 18:00 03/10/17 17:59 03/04/17 17:09 Lansoprazole (Prevacid) 30 mg Q12HR GT 02/28/17 21:00 03/30/17 20:59 03/05/17 09:35 Linezolid 300 ml @ 300 mls/hr Q12HR IVPB 03/04/17 11:30 03/11/17 11:29 03/05/17 09:34 Lorazepam (Ativan 2mg/ml 1ml) 2 mg EVERY 2 HOURS PRN IV For Anxiety 02/27/17 23:45 03/06/17 23:44 Midodrine (Pro-Amatine) 10 mg Q8HR GT 02/28/17 06:00 03/30/17 05:59 03/04/17 21:49 Morphine Sulfate (Morphine Sulfate) 4 mg EVERY 4 HOURS PRN IVP Severe Pain (Pain Scale 7-10) 02/27/17 23:45 03/06/17 23:44 Ondansetron HCl (Zofran) 4 mg Q6H PRN IVP Nausea & Vomiting 02/27/17 23:45 03/29/17 23:44 ALBANIA CRAMER Mar 05, 2017 11:02
--- NOTE | 2017-03-05 11:04 | Cardiology Report ---
APPROVED REPORT EKG Measurement Heart [id number] [id number] Sinus tachycardia Inferior infarct, age undetermined Abnormal ECG
[2017-03-05 12:00] VITALS: BP 100/59
--- NOTE | 2017-03-05 12:00 | Progress Note ---
SUBJECTIVE: The patient is afebrile, hemodynamically stable. PHYSICAL EXAMINATION: VITAL SIGNS: Blood pressure 144/94, pulse 72, respirations were 18, and temperature 97.7. HEENT: Eyes were normal. ENT, mucous membranes were moist and intact. NECK: Supple with no JVD without lymph nodes. Tracheostomy site is clean. LUNGS: Clear without rhonchi, rales, or wheezing. Secretions are small, thin, and hilton. HEART: Normal sounds with regular heart beat. There is no S3, S4, or pericardial rub. ABDOMEN: Soft and nontender with normal bowel sounds. Gastrostomy site is clean. EXTREMITIES: Warm without cyanosis, clubbing, or edema. LABORATORY AND DIAGNOSTIC DATA: His hemoglobin is 10.8, hematocrit 34.7, MCV of , WBC of 15.2, and platelets are 215,000. WBC yesterday was 14.1 and 10.8 on 03/03/2017. His BUN and creatinine are 14 and 0.7 respectively. His sodium is 143, potassium 3.2, chloride 108, and CO2 is 26. SGOT and SGPT are normal. Alkaline phosphatase elevated to 400 level. Albumin is 2.5. Total protein is 6.8. No imaging study. ASSESSMENT AND PLAN: The patient of lower extremity antibiotic has been changed. He is now on linezolid 600 mg intravenous piggyback q.12 and fluconazole 200 mg intravenous piggyback q.24 hours. He is on clotrimazole cream q.12 hours for skin rash. His pain management is now morphine 4 mg push q.4 h as needed. Repeat laboratory tests will be done in the a.m. Boris Arevalo M.D. DR: KAUSHIK JOB#: [id number] CC:
--- NOTE | 2017-03-05 12:14 | GI Progress Note ---
Assessment/Plan Problems: (1) Feeding by G-tube ICD Codes: Z93.1 - Feeding by G-tube SNOMED: 096340711 (2) Coffee ground emesis ICD Codes: K92.0 - Hematemesis SNOMED: 039319042, 31459912 (3) Ileus ICD Codes: K56.7 - Ileus, unspecified SNOMED: 876862292 (4) Vomiting ICD Codes: R11.10 - Vomiting, unspecified SNOMED: 250443449 (5) Gastrointestinal hemorrhage ICD Codes: K92.2 - Gastrointestinal hemorrhage, unspecified SNOMED: 39067818 Status: unchanged Status Narrative Discussed with Dr. Rosas. Assessment/Plan OB stool positive KUB reviewed >> negative for ileus stable H&H hold EGD for now prn transfusions ppi electrolyte correction fu stool C.diff GTFs per dietary fu labs Subjective Subjective limited Objective Last 24 Hour Vital Signs Date Time Temp Pulse Resp B/P (MAP) Pulse Ox O2 Delivery O2 Flow Rate FiO2 03/05/17 10:45 65 15 50 03/05/17 08:50 65 15 50 03/05/17 08:00 50 03/05/17 08:00 99.9 72 15 120/73 99 Mechanical Ventilator 50 03/05/17 07:30 65 03/05/17 07:10 70 15 50 03/05/17 04:45 81 15 50 03/05/17 04:00 85 03/05/17 04:00 40 03/05/17 04:00 98.7 86 21 140/81 98 Mechanical Ventilator 03/05/17 02:56 77 16 50 03/05/17 00:59 79 16 50 03/05/17 00:00 75 03/05/17 00:00 98.2 80 21 148/87 98 Mechanical Ventilator 03/05/17 00:00 40 03/04/17 23:13 73 16 Mechanical Ventilator 50 03/04/17 23:12 73 16 50 03/04/17 20:56 77 18 50 03/04/17 20:00 40 03/04/17 20:00 97.7 72 18 144/94 96 Mechanical Ventilator 03/04/17 20:00 70 03/04/17 18:54 69 18 50 03/04/17 17:00 73 16 50 03/04/17 16:00 71 03/04/17 16:00 98.4 72 20 140/97 93 Mechanical Ventilator 40 03/04/17 16:00 40 03/04/17 15:05 74 16 50 03/04/17 12:55 72 16 50 Intake and Output 03/05/17 03/06/17 19:00 07:00 # Bowel Movements 1 Laboratory Tests Test 03/05/17 04:00 White Blood Count 13.5 K/UL (4.8-10.8) H Red Blood Count 3.85 M/UL (4.70-6.10) L Hemoglobin 11.6 G/DL (14.2-18.0) L Hematocrit 34.7 % (42.0-52.0) L Mean Corpuscular Volume 90 FL (80-99) Mean Corpuscular Hemoglobin 30.2 PG (27.0-31.0) Mean Corpuscular Hemoglobin Concent 33.6 G/DL (32.0-36.0) Red Cell Distribution Width 12.9 % (11.6-14.8) Platelet Count 266 K/UL (150-450) Mean Platelet Volume 9.4 FL (6.5-10.1) Neutrophils (%) (Auto) 66.2 % (45.0-75.0) Lymphocytes (%) (Auto) 18.9 % (20.0-45.0) L Monocytes (%) (Auto) 6.7 % (1.0-10.0) Eosinophils (%) (Auto) 7.3 % (0.0-3.0) H Basophils (%) (Auto) 0.8 % (0.0-2.0) Sodium Level 140 MMOL/L (136-145) Potassium Level 3.0 MMOL/L (3.5-5.1) L Chloride Level 104 MMOL/L (98-107) Carbon Dioxide Level 30 MMOL/L (21-32) Anion Gap 6 mmol/L (5-15) Blood Urea Nitrogen 16 mg/dL (7-18) Creatinine 0.7 MG/DL (0.55-1.30) Estimat Glomerular Filtration Rate > 60 mL/min (>60) Glucose Level 119 MG/DL (74-106) H Calcium Level 8.7 MG/DL (8.5-10.1) Height (Feet): 5 Height (Inches): 6.00 Weight (Pounds): 147 General Appearance: no apparent distress, alert Cardiovascular: normal rate Respiratory/Chest: normal breath sounds, no respiratory distress, other - mech vent Abdominal Exam: normal bowel sounds, non tender, soft, GT site - c/d/i Extremities: non-tender Katina Garcia N.P. Mar 05, 2017 12:13
--- NOTE | 2017-03-05 13:56 | Infectious Diseases Prog Note ---
Assessment/Plan Assessment/Plan Assessment: Fungemia Shelli tropicalis Probable PICC( 01/22) infection removed on 03/02 Leukocytosis- , improving -CT abd/p -per my review- infiltrates/consolidation bibasilar (report pending) -Afebrile Recent persistent low grade CONS bacteremia- being treated for presumed endocarditis/endovascular source -Bcx 01/21 2/4 CONS, 01/23 + /, 01/26, +03/26 -TTE very limited, no vegetations seen. HUONG could not be done Recent Providencia UTI s/p 14d Aztreonam repeat UCx : VRE and Provid. Hx of PNA - hx sp cx ACB ( colonizer ) Recent coffee ground emesis -EGD 01/2017: gastritis; on coumadin History of chronically elevated alkaline phosphatase CVA with anoxic brain injury Sacral decubitus. Ventilator-dependent respiratory failure. History of trach and PEG placement. COPD. Esophagitis, Hx EGD : . Minimum distal esophagitis. Gastritis, status post biopsy. 01/23 Diabetes. Anxiety. Anemia. Plan: - Cont Diflucan d# 3 / , add Zyvox d# 2 - DC IV Vancomycin per prior duration for possible endocarditis, # 42 /42 -Continue IV aztreonam # 6 / 7 pending CXR, sputum cx, u/a for possible PNA, r /o UTI 03/03 SP Mycamine d# 3 -f/u cx( bl ) -Monitor CBC/BMP, temperatures -trach/peg care -aspiration precautions -wound care Subjective Constitutional: Denies: no symptoms, fever, chills, fatigue, anorexia, drenching sweats, other Allergies: Coded Allergies: OXYTETRACYCLINE (Unverified Allergy, Unknown, 09/05/13) PENICILLINS (Unverified Allergy, Unknown, 09/05/13) Uncoded Allergies: PLASTIC TAPE (Allergy, Mild, ITCHINESS, 08/08/15) MEDICAL TAPE (Allergy, Unknown, 12/10/16) Subjective leukocytosis improving Objective Vital Signs Last 24 Hour Vital Signs Date Time Temp Pulse Resp B/P (MAP) Pulse Ox O2 Delivery O2 Flow Rate FiO2 03/05/17 13:03 64 15 50 03/05/17 12:00 50 03/05/17 12:00 99.1 68 18 100/59 99 Mechanical Ventilator 50 03/05/17 11:42 63 03/05/17 10:45 65 15 50 03/05/17 08:50 65 15 50 03/05/17 08:00 50 03/05/17 08:00 99.9 72 15 120/73 99 Mechanical Ventilator 50 03/05/17 07:30 65 03/05/17 07:10 70 15 50 03/05/17 04:45 81 15 50 03/05/17 04:00 85 03/05/17 04:00 40 03/05/17 04:00 98.7 86 21 140/81 98 Mechanical Ventilator 03/05/17 02:56 77 16 50 03/05/17 00:59 79 16 50 03/05/17 00:00 75 03/05/17 00:00 98.2 80 21 148/87 98 Mechanical Ventilator 03/05/17 00:00 40 03/04/17 23:13 73 16 Mechanical Ventilator 50 03/04/17 23:12 73 16 50 03/04/17 20:56 77 18 50 03/04/17 20:00 40 03/04/17 20:00 97.7 72 18 144/94 96 Mechanical Ventilator 03/04/17 20:00 70 03/04/17 18:54 69 18 50 03/04/17 17:00 73 16 50 03/04/17 16:00 71 03/04/17 16:00 98.4 72 20 140/97 93 Mechanical Ventilator 40 03/04/17 16:00 40 03/04/17 15:05 74 16 50 Height (Feet): 5 Height (Inches): 6.00 Weight (Pounds): 147 HEENT: mucous membranes moist Respiratory/Chest: normal breath sounds Cardiovascular: regular rhythm Abdomen: non distended Laboratory Tests Test 03/05/17 04:00 White Blood Count 13.5 K/UL (4.8-10.8) H Red Blood Count 3.85 M/UL (4.70-6.10) L Hemoglobin 11.6 G/DL (14.2-18.0) L Hematocrit 34.7 % (42.0-52.0) L Mean Corpuscular Volume 90 FL (80-99) Mean Corpuscular Hemoglobin 30.2 PG (27.0-31.0) Mean Corpuscular Hemoglobin Concent 33.6 G/DL (32.0-36.0) Red Cell Distribution Width 12.9 % (11.6-14.8) Platelet Count 266 K/UL (150-450) Mean Platelet Volume 9.4 FL (6.5-10.1) Neutrophils (%) (Auto) 66.2 % (45.0-75.0) Lymphocytes (%) (Auto) 18.9 % (20.0-45.0) L Monocytes (%) (Auto) 6.7 % (1.0-10.0) Eosinophils (%) (Auto) 7.3 % (0.0-3.0) H Basophils (%) (Auto) 0.8 % (0.0-2.0) Sodium Level 140 MMOL/L (136-145) Potassium Level 3.0 MMOL/L (3.5-5.1) L Chloride Level 104 MMOL/L (98-107) Carbon Dioxide Level 30 MMOL/L (21-32) Anion Gap 6 mmol/L (5-15) Blood Urea Nitrogen 16 mg/dL (7-18) Creatinine 0.7 MG/DL (0.55-1.30) Estimat Glomerular Filtration Rate > 60 mL/min (>60) Glucose Level 119 MG/DL (74-106) H Calcium Level 8.7 MG/DL (8.5-10.1) Current Medications Medications (Trade) Dose Ordered Sig/Sima Route PRN Reason Start Time Stop Time Status Last Admin Dose Admin Acetaminophen (Tylenol) 650 mg Q4H PRN ORAL FEVER 02/27/17 23:45 03/29/17 23:44 Amantadine HCl (Symmetrel) 100 mg DAILY GT 02/28/17 09:00 03/30/17 08:59 03/05/17 09:34 Ascorbic Acid (Vitamin C) 500 mg DAILY GT 02/28/17 09:00 03/30/17 08:59 03/05/17 09:35 Atorvastatin Calcium (Lipitor) 10 mg BEDTIME GT 02/28/17 21:00 03/30/17 20:59 03/04/17 21:50 Aztreonam 1 gm/ Dextrose 55 ml @ 110 mls/hr Q8HR IVPB 02/28/17 11:15 03/07/17 11:14 03/05/17 05:45 Chlorhexidine Gluconate (Paulina-Hex 2%) 1 applic DAILY@1999 TOPIC 03/02/17 20:00 04/01/17 19:59 03/04/17 21:49 Clotrimazole (Lotrimin) 1 applic EVERY 12 HOURS TOPIC 03/01/17 21:00 03/31/17 20:59 03/05/17 09:35 Dextrose (Dextrose 50%) STAT PRN IV Hypoglycemia 02/27/17 23:45 03/29/17 23:44 Fluconazole/ Sodium Chloride 200 ml @ 100 mls/hr Q24H IV 03/03/17 18:00 03/10/17 17:59 03/04/17 17:09 Lansoprazole (Prevacid) 30 mg Q12HR GT 02/28/17 21:00 03/30/17 20:59 03/05/17 09:35 Linezolid 300 ml @ 300 mls/hr Q12HR IVPB 03/04/17 11:30 03/11/17 11:29 03/05/17 09:34 Lorazepam (Ativan 2mg/ml 1ml) 2 mg EVERY 2 HOURS PRN IV For Anxiety 02/27/17 23:45 03/06/17 23:44 Midodrine (Pro-Amatine) 10 mg Q8HR GT 02/28/17 06:00 03/30/17 05:59 03/04/17 21:49 Morphine Sulfate (Morphine Sulfate) 4 mg EVERY 4 HOURS PRN IVP Severe Pain (Pain Scale 7-10) 02/27/17 23:45 03/06/17 23:44 Ondansetron HCl (Zofran) 4 mg Q6H PRN IVP Nausea & Vomiting 02/27/17 23:45 03/29/17 23:44 MARCELLA MA M.D. Mar 05, 2017 13:56
[2017-03-05 16:00] VITALS: BP 149/88
[2017-03-05] MEDS ORDERED: NS 500ML ONE (17:20)
[2017-03-05] MEDS ORDERED: Tubing IV Secondary IV ONE (17:20)
[2017-03-05 20:00] VITALS: BP 118/80
[2017-03-05] MEDS: Dyna-Hex 2% Top Sol 2oz TOPIC SCH (21:00)
[2017-03-06] VITALS (7 sets, daily range): BP systolic 101–150; BP diastolic 69–90
[2017-03-06] MEDS: Midodrine 10mg tab GT SCH ×3 (06:00→21:52)
[2017-03-06 06:13] LABS: BASOPHILS % (AUTO) 0.6 % (0.0-2.0); EOSINOPHILS % (AUTO) 5.2 % (0.0-3.0); HEMOGLOBIN 11.8 G/DL (14.2-18.0); MEAN CORPUSCULAR VOLUME 90 FL (80-99); MONOCYTES % (AUTO) 7.1 % (1.0-10.0); NEUTROPHILS % (AUTO) 72.1 % (45.0-75.0); PLATELET COUNT 289 K/UL (150-450); RED BLOOD COUNT 3.87 M/UL (4.70-6.10); RED CELL DISTRIBUTION WIDTH 13.4 % (11.6-14.8); WHITE BLOOD COUNT 15.2 K/UL (4.8-10.8)
[2017-03-06 06:42] LABS: ANION GAP 7 mmol/L (5-15); BLOOD UREA NITROGEN 15 mg/dL (7-18); CARBON DIOXIDE 28 MMOL/L (21-32); CHLORIDE 104 MMOL/L (98-107); CREATININE 0.7 MG/DL (0.55-1.30); POTASSIUM 3.3 MMOL/L (3.5-5.1); SODIUM 139 MMOL/L (136-145)
--- NOTE | 2017-03-06 07:42 | Pulmonology Progress Note ---
Assessment/Plan Assessment/Plan ASSESSMENT GI bleeding Sepsis with Shelli fungemia UTI with Providencia, VRE possible ileus probable enteritis possible endocarditis Dysphagia, G tube VDRF with tracheostomy status Hypokalemia diarrhea anemia Hx of CVA with anoxic encephalopathy coccyx decub ulcer st 2 POA PLAN OF CARE PERCY status vent support trach care pulmonary toilet baseline AG and titrate settings as needed Fup with CXR abx and antifungal, ID follows blood cx + Shelli, repeated negative, stool cx negative urine cxz + Providencia, VRE per ID fungemia likely due to PICC line infection ( left UE PICC dc and new RUE PICC inserted) continue Midodrine, BP remains stable with Midodrine Aspiration precautions, GT feeding, monitor tolerance CT A/P noted, possible ileus vs enteritis KUB noted, no ileus, GI follows a/emetic prn GI prophylaxis monitor HH , transfuse with goal to keep Hgb above 7.5, anemia w/up with stable iron stool OB + correct lytes as needed, monitor closely pain management stool for C dif negative rectal tube wound care as per wound nurse recommendations dc plan case discussed and evaluated by supervising physician Subjective Allergies: Coded Allergies: OXYTETRACYCLINE (Unverified Allergy, Unknown, 09/05/13) PENICILLINS (Unverified Allergy, Unknown, 09/05/13) Uncoded Allergies: PLASTIC TAPE (Allergy, Mild, ITCHINESS, 08/08/15) MEDICAL TAPE (Allergy, Unknown, 12/10/16) Subjective still with leukocytosis, afebrile stool C dif negative rectal tube inserted no episodes of hematemesis Objective Last 24 Hour Vital Signs Date Time Temp Pulse Resp B/P (MAP) Pulse Ox O2 Delivery O2 Flow Rate FiO2 03/06/17 06:51 80 20 50 03/06/17 05:19 80 14 50 03/06/17 04:00 74 03/06/17 04:00 98.8 80 16 125/90 100 Mechanical Ventilator 50 03/06/17 04:00 50 03/06/17 03:07 79 14 50 03/06/17 01:01 83 15 50 03/06/17 00:00 98.6 75 16 125/78 100 Mechanical Ventilator 50 03/06/17 00:00 50 03/06/17 00:00 75 03/05/17 22:35 71 16 50 03/05/17 21:23 78 16 50 03/05/17 20:00 50 03/05/17 20:00 99.2 76 16 118/80 100 Mechanical Ventilator 50 03/05/17 20:00 77 03/05/17 19:24 77 16 50 03/05/17 17:00 74 16 50 03/05/17 16:00 50 03/05/17 16:00 98.7 76 17 149/88 100 Mechanical Ventilator 50 03/05/17 16:00 72 03/05/17 15:10 72 16 50 03/05/17 13:03 64 15 50 03/05/17 12:00 50 03/05/17 12:00 99.1 68 18 100/59 99 Mechanical Ventilator 50 03/05/17 11:42 63 03/05/17 10:45 65 15 50 03/05/17 08:50 65 15 50 03/05/17 08:00 50 03/05/17 08:00 99.9 72 15 120/73 99 Mechanical Ventilator 50 General Appearance: no acute distress, other - bedridden, chronically ill poorly responsive male on vent AC 600-50-14 HEENT: normocephalic, atraumatic, anicteric, status post trach - Portex#7, secretions small, white, thin Respiratory/Chest: lungs clear Cardiovascular: normal rate, regular rhythm - SR on tele , other - LUE PICC Abdomen: other - G tube Extremities: no edema, pedal pulses normal Neurologic/Psychiatric: abnormal gait - bedridden , other - contracted , poorly responsive to tactile stimuli only Laboratory Tests 03/06/17 04:00: White Blood Count 15.2H, Red Blood Count 3.87L, Hemoglobin 11.8L, Hematocrit 35.0L, Mean Corpuscular Volume 90, Mean Corpuscular Hemoglobin 30.4, Mean Corpuscular Hemoglobin Concent 33.6, Red Cell Distribution Width 13.4, Platelet Count 289, Mean Platelet Volume 10.6H, Neutrophils (%) (Auto) 72.1, Lymphocytes (%) (Auto) 15.0L, Monocytes (%) (Auto) 7.1, Eosinophils (%) (Auto) 5.2H, Basophils (%) (Auto) 0.6, Erythrocyte Sedimentation Rate 53H, Sodium Level 139, Potassium Level 3.3L, Chloride Level 104, Carbon Dioxide Level 28, Anion Gap 7, Blood Urea Nitrogen 15, Creatinine 0.7, Estimat Glomerular Filtration Rate > 60 , Glucose Level 117H, Calcium Level 9.0 Current Medications Medications (Trade) Dose Ordered Sig/Sima Route PRN Reason Start Time Stop Time Status Last Admin Dose Admin Acetaminophen (Tylenol) 650 mg Q4H PRN ORAL FEVER 02/27/17 23:45 03/29/17 23:44 Amantadine HCl (Symmetrel) 100 mg DAILY GT 02/28/17 09:00 03/30/17 08:59 03/05/17 09:34 Ascorbic Acid (Vitamin C) 500 mg DAILY GT 02/28/17 09:00 03/30/17 08:59 03/05/17 09:35 Atorvastatin Calcium (Lipitor) 10 mg BEDTIME GT 02/28/17 21:00 03/30/17 20:59 03/05/17 21:01 Chlorhexidine Gluconate (Paulina-Hex 2%) 1 applic DAILY@2000 TOPIC 03/02/17 20:00 04/01/17 19:59 03/05/17 21:00 Clotrimazole (Lotrimin) 1 applic EVERY 12 HOURS TOPIC 03/01/17 21:00 03/31/17 20:59 03/05/17 21:03 Dextrose (Dextrose 50%) STAT PRN IV Hypoglycemia 02/27/17 23:45 03/29/17 23:44 Fluconazole/ Sodium Chloride 200 ml @ 100 mls/hr Q24H IV 03/03/17 18:00 03/10/17 17:59 03/05/17 17:53 Lansoprazole (Prevacid) 30 mg Q12HR GT 02/28/17 21:00 03/30/17 20:59 03/05/17 21:01 Linezolid 300 ml @ 300 mls/hr Q12HR IVPB 03/04/17 11:30 03/11/17 11:29 03/05/17 21:00 Lorazepam (Ativan 2mg/ml 1ml) 2 mg EVERY 2 HOURS PRN IV For Anxiety 02/27/17 23:45 03/06/17 23:44 Midodrine (Pro-Amatine) 10 mg Q8HR GT 02/28/17 06:00 03/30/17 05:59 03/05/17 21:00 Morphine Sulfate (Morphine Sulfate) 4 mg EVERY 4 HOURS PRN IVP Severe Pain (Pain Scale 7-10) 02/27/17 23:45 03/06/17 23:44 Ondansetron HCl (Zofran) 4 mg Q6H PRN IVP Nausea & Vomiting 02/27/17 23:45 03/29/17 23:44 Potassium Chloride 40 meq/ Sodium Chloride 570 ml @ 142.5 mls/ hr ONCE ONCE IVPB 03/06/17 08:00 03/06/17 11:59 Marco Antonio RiveraTaylor salmeron NP Mar 06, 2017 07:42
[2017-03-06] MEDS ORDERED: Potassium Chloride 40 MEQ in Sodium Chloride 500ML 550 ML IVPB ONE ×2 (08:00→11:30)
[2017-03-06] MEDS: Amantadine 100mg cap GT SCH (09:23)
[2017-03-06] MEDS: Ascorbic Acid 500mg tab GT SCH (09:23)
--- NOTE | 2017-03-06 10:30 | Infectious Diseases Prog Note ---
Assessment/Plan Assessment/Plan Assessment: Fungemia Shelli tropicalis Probable PICC( 01/22) infection removed on 03/02 Leukocytosis- , -CT abd/p -02/27 Bilateral lower lobe atelectasis and consolidation -Afebrile Recent persistent low grade CONS bacteremia- being treated for presumed endocarditis/endovascular source -Bcx 01/21 2/4 CONS, 01/23 + 1/4, 01/26, +1/4 -TTE very limited, no vegetations seen. HUONG could not be done Recent Providencia UTI s/p 14d Aztreonam repeat UCx : VRE and Provid. Hx of PNA - sp cx ACB Recent coffee ground emesis -EGD 01/2017: gastritis; on coumadin History of chronically elevated alkaline phosphatase CVA with anoxic brain injury Sacral decubitus. Ventilator-dependent respiratory failure. History of trach and PEG placement. COPD. Esophagitis, Hx EGD : . Minimum distal esophagitis. Gastritis, status post biopsy. 01/23 Diabetes. Anxiety. Anemia. Plan: - Cont Diflucan d# , add Zyvox d# 3 - SP IV aztreonam # 7 and IV Vancomycin for endocarditis # 42 / 42 03/03 SP Mycamine d# 3 -f/u cx( bl and Sp ) -Monitor CBC/BMP, temperatures -trach/peg care -aspiration precautions -wound care Subjective Constitutional: Denies: no symptoms, fever, chills, fatigue, anorexia, drenching sweats, other Allergies: Coded Allergies: OXYTETRACYCLINE (Unverified Allergy, Unknown, 09/05/13) PENICILLINS (Unverified Allergy, Unknown, 09/05/13) Uncoded Allergies: PLASTIC TAPE (Allergy, Mild, ITCHINESS, 08/08/15) MEDICAL TAPE (Allergy, Unknown, 12/10/16) Subjective afebrile Objective Vital Signs Last 24 Hour Vital Signs Date Time Temp Pulse Resp B/P (MAP) Pulse Ox O2 Delivery O2 Flow Rate FiO2 03/06/17 08:45 80 14 50 03/06/17 06:51 80 20 50 03/06/17 05:19 80 14 50 03/06/17 04:00 74 03/06/17 04:00 98.8 80 16 125/90 100 Mechanical Ventilator 50 03/06/17 04:00 50 03/06/17 03:07 79 14 50 03/06/17 01:01 83 15 50 03/06/17 00:00 98.6 75 16 125/78 100 Mechanical Ventilator 50 03/06/17 00:00 50 03/06/17 00:00 75 03/05/17 22:35 71 16 50 03/05/17 21:23 78 16 50 03/05/17 20:00 50 03/05/17 20:00 99.2 76 16 118/80 100 Mechanical Ventilator 50 03/05/17 20:00 77 03/05/17 19:24 77 16 50 03/05/17 17:00 74 16 50 03/05/17 16:00 50 03/05/17 16:00 98.7 76 17 149/88 100 Mechanical Ventilator 50 03/05/17 16:00 72 03/05/17 15:10 72 16 50 03/05/17 13:03 64 15 50 03/05/17 12:00 50 03/05/17 12:00 99.1 68 18 100/59 99 Mechanical Ventilator 50 03/05/17 11:42 63 03/05/17 10:45 65 15 50 Height (Feet): 5 Height (Inches): 6.00 Weight (Pounds): 147 HEENT: atraumatic Respiratory/Chest: no respiratory distress Cardiovascular: regularly irregular Abdomen: no organomegaly Extremities: no clubbing Microbiology Date/Time Source Procedure Growth Status 03/05/17 22:00 Stool Clostridium difficile Toxin Assay - Final Complete Laboratory Tests Test 03/06/17 04:00 White Blood Count 15.2 K/UL (4.8-10.8) H Red Blood Count 3.87 M/UL (4.70-6.10) L Hemoglobin 11.8 G/DL (14.2-18.0) L Hematocrit 35.0 % (42.0-52.0) L Mean Corpuscular Volume 90 FL (80-99) Mean Corpuscular Hemoglobin 30.4 PG (27.0-31.0) Mean Corpuscular Hemoglobin Concent 33.6 G/DL (32.0-36.0) Red Cell Distribution Width 13.4 % (11.6-14.8) Platelet Count 289 K/UL (150-450) Mean Platelet Volume 10.6 FL (6.5-10.1) H Neutrophils (%) (Auto) 72.1 % (45.0-75.0) Lymphocytes (%) (Auto) 15.0 % (20.0-45.0) L Monocytes (%) (Auto) 7.1 % (1.0-10.0) Eosinophils (%) (Auto) 5.2 % (0.0-3.0) H Basophils (%) (Auto) 0.6 % (0.0-2.0) Erythrocyte Sedimentation Rate 53 MM/HR (0-20) H Sodium Level 139 MMOL/L (136-145) Potassium Level 3.3 MMOL/L (3.5-5.1) L Chloride Level 104 MMOL/L (98-107) Carbon Dioxide Level 28 MMOL/L (21-32) Anion Gap 7 mmol/L (5-15) Blood Urea Nitrogen 15 mg/dL (7-18) Creatinine 0.7 MG/DL (0.55-1.30) Estimat Glomerular Filtration Rate > 60 mL/min (>60) Glucose Level 117 MG/DL (74-106) H Calcium Level 9.0 MG/DL (8.5-10.1) Current Medications Medications (Trade) Dose Ordered Sig/Sima Route PRN Reason Start Time Stop Time Status Last Admin Dose Admin Acetaminophen (Tylenol) 650 mg Q4H PRN ORAL FEVER 02/27/17 23:45 03/29/17 23:44 Amantadine HCl (Symmetrel) 100 mg DAILY GT 02/28/17 09:00 03/30/17 08:59 03/06/17 09:23 Ascorbic Acid (Vitamin C) 500 mg DAILY GT 02/28/17 09:00 03/30/17 08:59 03/06/17 09:23 Atorvastatin Calcium (Lipitor) 10 mg BEDTIME GT 02/28/17 21:00 03/30/17 20:59 03/05/17 21:01 Chlorhexidine Gluconate (Paulina-Hex 2%) 1 applic DAILY@1999 TOPIC 03/02/17 20:00 04/01/17 19:59 03/05/17 21:00 Clotrimazole (Lotrimin) 1 applic EVERY 12 HOURS TOPIC 03/01/17 21:00 03/31/17 20:59 03/06/17 09:24 Dextrose (Dextrose 50%) STAT PRN IV Hypoglycemia 02/27/17 23:45 03/29/17 23:44 Fluconazole/ Sodium Chloride 200 ml @ 100 mls/hr Q24H IV 03/03/17 18:00 03/10/17 17:59 03/05/17 17:53 Lansoprazole (Prevacid) 30 mg Q12HR GT 02/28/17 21:00 03/30/17 20:59 03/06/17 09:23 Linezolid 300 ml @ 300 mls/hr Q12HR IVPB 03/04/17 11:30 03/11/17 11:29 03/06/17 09:24 Lorazepam (Ativan 2mg/ml 1ml) 2 mg EVERY 2 HOURS PRN IV For Anxiety 02/27/17 23:45 03/06/17 23:44 Midodrine (Pro-Amatine) 10 mg Q8HR GT 02/28/17 06:00 03/30/17 05:59 03/05/17 21:00 Morphine Sulfate (Morphine Sulfate) 4 mg EVERY 4 HOURS PRN IVP Severe Pain (Pain Scale 7-10) 02/27/17 23:45 03/06/17 23:44 Ondansetron HCl (Zofran) 4 mg Q6H PRN IVP Nausea & Vomiting 02/27/17 23:45 03/29/17 23:44 Potassium Chloride 40 meq/ Sodium Chloride 570 ml @ 142.5 mls/ hr ONCE ONCE IVPB 03/06/17 08:00 03/06/17 11:59 MARCELLA MA M.D. Mar 06, 2017 10:30
--- NOTE | 2017-03-06 11:11 | GI Progress Note ---
Assessment/Plan Problems: (1) Feeding by G-tube ICD Codes: Z93.1 - Feeding by G-tube SNOMED: 143002682 (2) Coffee ground emesis ICD Codes: K92.0 - Hematemesis SNOMED: 805820770, 34388980 (3) Ileus ICD Codes: K56.7 - Ileus, unspecified SNOMED: 210243335 (4) Vomiting ICD Codes: R11.10 - Vomiting, unspecified SNOMED: 427986162 (5) Gastrointestinal hemorrhage ICD Codes: K92.2 - Gastrointestinal hemorrhage, unspecified SNOMED: 49441406 Status: stable, unchanged Status Narrative Discussed with Dr. Rosas. Assessment/Plan OB stool positive KUB reviewed >> negative for ileus stable H&H hold EGD for now, supportive care prn transfusions ppi electrolyte correction fu stool C.diff GTFs per dietary fu labs Subjective Subjective limited Objective Last 24 Hour Vital Signs Date Time Temp Pulse Resp B/P (MAP) Pulse Ox O2 Delivery O2 Flow Rate FiO2 03/06/17 10:51 64 14 50 03/06/17 08:45 70 14 50 03/06/17 06:51 80 20 50 03/06/17 05:19 80 14 50 03/06/17 04:00 74 03/06/17 04:00 98.8 80 16 125/90 100 Mechanical Ventilator 50 03/06/17 04:00 50 03/06/17 03:07 79 14 50 03/06/17 01:01 83 15 50 03/06/17 00:00 98.6 75 16 125/78 100 Mechanical Ventilator 50 03/06/17 00:00 50 03/06/17 00:00 75 03/05/17 22:35 71 16 50 03/05/17 21:23 78 16 50 03/05/17 20:00 50 03/05/17 20:00 99.2 76 16 118/80 100 Mechanical Ventilator 50 03/05/17 20:00 77 03/05/17 19:24 77 16 50 03/05/17 17:00 74 16 50 03/05/17 16:00 50 03/05/17 16:00 98.7 76 17 149/88 100 Mechanical Ventilator 50 03/05/17 16:00 72 03/05/17 15:10 72 16 50 03/05/17 13:03 64 15 50 03/05/17 12:00 50 03/05/17 12:00 99.1 68 18 100/59 99 Mechanical Ventilator 50 03/05/17 11:42 63 Laboratory Tests Test 03/06/17 04:00 03/06/17 10:42 White Blood Count 15.2 K/UL (4.8-10.8) H Red Blood Count 3.87 M/UL (4.70-6.10) L Hemoglobin 11.8 G/DL (14.2-18.0) L Hematocrit 35.0 % (42.0-52.0) L Mean Corpuscular Volume 90 FL (80-99) Mean Corpuscular Hemoglobin 30.4 PG (27.0-31.0) Mean Corpuscular Hemoglobin Concent 33.6 G/DL (32.0-36.0) Red Cell Distribution Width 13.4 % (11.6-14.8) Platelet Count 289 K/UL (150-450) Mean Platelet Volume 10.6 FL (6.5-10.1) H Neutrophils (%) (Auto) 72.1 % (45.0-75.0) Lymphocytes (%) (Auto) 15.0 % (20.0-45.0) L Monocytes (%) (Auto) 7.1 % (1.0-10.0) Eosinophils (%) (Auto) 5.2 % (0.0-3.0) H Basophils (%) (Auto) 0.6 % (0.0-2.0) Erythrocyte Sedimentation Rate 53 MM/HR (0-20) H Sodium Level 139 MMOL/L (136-145) Potassium Level 3.3 MMOL/L (3.5-5.1) L Chloride Level 104 MMOL/L (98-107) Carbon Dioxide Level 28 MMOL/L (21-32) Anion Gap 7 mmol/L (5-15) Blood Urea Nitrogen 15 mg/dL (7-18) Creatinine 0.7 MG/DL (0.55-1.30) Estimat Glomerular Filtration Rate > 60 mL/min (>60) Glucose Level 117 MG/DL (74-106) H Calcium Level 9.0 MG/DL (8.5-10.1) Arterial Blood pH 7.476 (7.350-7.450) Arterial Blood Partial Pressure CO2 34.0 mmHg (35.0-45.0) L Arterial Blood Partial Pressure O2 192.1 mmHg (75.0-100.0) H Arterial Blood HCO3 24.5 mmol/L (22.0-26.0) Arterial Blood Oxygen Saturation 99.1 % (92.0-98.0) H Arterial Blood Base Excess 1.4 Melvin Test Positive Microbiology Date/Time Source Procedure Growth Status 03/05/17 22:00 Stool Clostridium difficile Toxin Assay - Final Complete Height (Feet): 5 Height (Inches): 6.00 Weight (Pounds): 147 General Appearance: no apparent distress, alert Cardiovascular: normal rate Respiratory/Chest: normal breath sounds, no respiratory distress Abdominal Exam: normal bowel sounds, non tender, soft, GT site - c/d/i Extremities: non-tender Katina Garcia N.P. Mar 06, 2017 11:11
--- NOTE | 2017-03-06 11:31 | Progress Note ---
DATE: 03/05/2017 SUBJECTIVE: The patient has low-grade fever without tachycardia. PHYSICAL EXAMINATION: VITAL SIGNS: Blood pressure 118/80, pulse is 76, respirations were 16, and temperature 99.2. HEENT: Eyes were normal. ENT, mucous membranes were moist and intact. NECK: Supple with no JVD, without lymph nodes. Tracheostomy site is clean. LUNGS: Clear without rhonchi, rales, or wheezing. Secretions are small, thin, and hilton. HEART: Normal sounds with irregular beats. There is no tachycardia at rest. ABDOMEN: Soft and nontender with normal bowel sounds. Gastrostomy site is clean. EXTREMITIES: Warm without cyanosis, clubbing, or edema. LABORATORY AND DIAGNOSTIC DATA: His hemoglobin is 11.6, hematocrit 34.7, MCV of 90, WBC of 13.5, and platelet is 266,000. His BUN and creatinine are 16 and 0.7 respectively. Sodium was 140, potassium 3.0, chloride 104, and CO2 is 30. There is no imaging study available. His two blood cultures from 03/01/2017, are both negative. Urine SGOT. Wound culture was negative. Blood culture from 02/27/2017 was . IMPRESSION AND PLAN: The patient appeared to be hemodynamically stable, however, he is currently on linezolid 600 mg intravenous piggyback q.12 and fluconazole 200 mg intravenous piggyback q.24 hours and clotrimazole one application every 12 hours and . Repeat laboratory tests will be done in the morning. Boris Arevalo M.D. DR: XAVIER JOB#: [id number] CC:
--- NOTE | 2017-03-06 12:30 | Diagnostic Imaging Report ---
Indication: Reason For Exam: SOB Technique: One view of the chest Comparison: 03/03/2017 post PICC image Findings: Obscured right hemidiaphragm, right basilar atelectasis persists. Calcified granuloma in the left lower lung persists. Left arm PICC, tracheostomy remain. Findings are overall unchanged Impression: Possible right pleural effusion Right basilar atelectasis No significant recoverer 3 days
[2017-03-06] MEDS: Dyna-Hex 2% Top Sol 2oz TOPIC SCH (21:51)
[2017-03-07] VITALS: BP 102/76
[2017-03-07 04:00] VITALS: BP 109/70
[2017-03-07 05:21] LABS: BASOPHILS % (AUTO) 1.1 % (0.0-2.0); EOSINOPHILS % (AUTO) 4.8 % (0.0-3.0); HEMATOCRIT 34.3 % (42.0-52.0); HEMOGLOBIN 11.4 G/DL (14.2-18.0); LYMPHOCYTES % (AUTO) 19.2 % (20.0-45.0); MEAN CORPUSCULAR VOLUME 91 FL (80-99); MONOCYTES % (AUTO) 9.9 % (1.0-10.0); PLATELET COUNT 242 K/UL (150-450); RED BLOOD COUNT 3.77 M/UL (4.70-6.10); RED CELL DISTRIBUTION WIDTH 13.6 % (11.6-14.8); WHITE BLOOD COUNT 11.9 K/UL (4.8-10.8)
[2017-03-07 05:41] LABS: ANION GAP 8 mmol/L (5-15); BLOOD UREA NITROGEN 16 mg/dL (7-18); CALCIUM 9.1 MG/DL (8.5-10.1); CARBON DIOXIDE 27 MMOL/L (21-32); CHLORIDE 105 MMOL/L (98-107); CREATININE 0.6 MG/DL (0.55-1.30); POTASSIUM 3.1 MMOL/L (3.5-5.1); SODIUM 140 MMOL/L (136-145)
[2017-03-07] MEDS: Midodrine 10mg tab GT SCH ×3 (06:36→21:26)
[2017-03-07 08:00] VITALS: BP 126/76
[2017-03-07] MEDS: Ascorbic Acid 500mg tab GT SCH (08:47)
[2017-03-07] MEDS: Amantadine 100mg cap GT SCH (08:47)
--- NOTE | 2017-03-07 09:47 | Pulmonology Progress Note ---
Assessment/Plan Assessment/Plan ASSESSMENT upper GI bleeding -resolved Sepsis with Shelli fungemia UTI with Providencia, VRE possible endocarditis possible ileus probable enteritis Dysphagia, G tube VDRF with tracheostomy status Hypokalemia diarrhea anemia Hx of CVA with anoxic encephalopathy coccyx decub ulcer st 2 POA severe protein calorie malnutrition PLAN OF CARE PERCY status vent support trach care pulmonary toilet baseline ABG stable, titrate FiO2 to keep sat above 92% and titrate settings as needed Fup with CXR on Thursday abx and antifungal, ID follows blood cx + Shelli, repeated negative, stool cx negative, stool C dif negative Recent Providencia UTI s/p 14d Aztreonam repeat UCx : VRE and Provid. per ID fungemia likely due to PICC line infection ( left UE PICC dc and new RUE PICC inserted) TTE very limited, no vegetations seen. HUONG could not be done per ID being treated for presumed endocarditis continue Midodrine, BP remains stable with Midodrine Aspiration precautions, GT feeding, monitor tolerance CT A/P noted, possible ileus vs enteritis KUB noted, no ileus, GI follows a/emetic prn GI prophylaxis monitor HH , transfuse with goal to keep Hgb above 7.5, anemia w/up with stable iron stool OB + correct lytes as needed, monitor closely, replace K today pain management stool for C dif negative rectal tube dietary eval re TF change possibly contributing to diarrhea and low albumin with evidence of severe protein calorie malnutrition wound care as per wound nurse recommendations dc plan case discussed and evaluated by supervising physician Subjective Allergies: Coded Allergies: OXYTETRACYCLINE (Unverified Allergy, Unknown, 09/05/13) PENICILLINS (Unverified Allergy, Unknown, 09/05/13) Uncoded Allergies: PLASTIC TAPE (Allergy, Mild, ITCHINESS, 08/08/15) MEDICAL TAPE (Allergy, Unknown, 12/10/16) Subjective still with leukocytosis, but with trend down afebrile stool C dif negative still diarrhea K-3.1 no episodes of hematemesis, HH stable Objective Last 24 Hour Vital Signs Date Time Temp Pulse Resp B/P (MAP) Pulse Ox O2 Delivery O2 Flow Rate FiO2 03/07/17 08:57 67 17 35 03/07/17 08:00 99.2 67 14 126/76 100 Mechanical Ventilator 35 03/07/17 07:34 69 14 35 03/07/17 05:05 69 14 35 03/07/17 04:00 35 03/07/17 04:00 74 03/07/17 04:00 98.9 80 14 109/70 100 Mechanical Ventilator 35 03/07/17 03:02 75 14 35 03/07/17 00:44 75 14 35 03/07/17 00:00 35 03/07/17 00:00 99.0 70 14 102/76 100 Mechanical Ventilator 35 03/07/17 00:00 74 03/06/17 22:44 72 14 35 03/06/17 20:58 75 17 35 03/06/17 20:00 35 03/06/17 20:00 69 03/06/17 20:00 99.1 73 15 133/79 100 Mechanical Ventilator 35 03/06/17 19:04 89 14 35 03/06/17 17:19 76 40 03/06/17 17:10 64 14 50 03/06/17 16:00 98.2 63 17 150/80 100 Mechanical Ventilator 50 03/06/17 16:00 63 03/06/17 16:00 50 03/06/17 14:41 69 16 50 03/06/17 12:52 71 15 50 03/06/17 12:36 74 03/06/17 12:00 98.2 70 22 101/69 100 Mechanical Ventilator 50 03/06/17 12:00 50 03/06/17 10:51 64 14 50 Objective General Appearance: no acute distress, bedridden, chronically ill poorly responsive male on vent AC 600-50-14 HEENT: normocephalic, atraumatic, anicteric, status post trach - Portex#7, secretions small, white, thin Respiratory/Chest: lungs clear Cardiovascular: normal rate, regular rhythm - SR on tele , LUE PICC Abdomen: G tube Extremities: no edema, pedal pulses normal Neurologic/Psychiatric: abnormal gait - bedridden , contractedx4 , poorly responsive to tactile stimuli only Microbiology Date/Time Source Procedure Growth Status 03/05/17 22:00 Stool Clostridium difficile Toxin Assay - Final Complete Laboratory Tests 03/06/17 10:42: Arterial Blood pH 7.476H, Arterial Blood Partial Pressure CO2 34.0L, Arterial Blood Partial Pressure O2 192.1H, Arterial Blood HCO3 24.5, Arterial Blood Oxygen Saturation 99.1H, Arterial Blood Base Excess 1.4, Melvin Test Positive 03/07/17 04:00: White Blood Count 11.9H, Red Blood Count 3.77L, Hemoglobin 11.4L, Hematocrit 34.3L, Mean Corpuscular Volume 91, Mean Corpuscular Hemoglobin 30.2, Mean Corpuscular Hemoglobin Concent 33.3, Red Cell Distribution Width 13.6, Platelet Count 242, Mean Platelet Volume 10.7H, Neutrophils (%) (Auto) 65.0, Lymphocytes (%) (Auto) 19.2L, Monocytes (%) (Auto) 9.9, Eosinophils (%) (Auto) 4.8H, Basophils (%) (Auto) 1.1, Sodium Level 140, Potassium Level 3.1L, Chloride Level 105, Carbon Dioxide Level 27, Anion Gap 8, Blood Urea Nitrogen 16, Creatinine 0.6, Estimat Glomerular Filtration Rate > 60, Glucose Level 114H, Calcium Level 9.1 Current Medications Medications (Trade) Dose Ordered Sig/Sima Route PRN Reason Start Time Stop Time Status Last Admin Dose Admin Acetaminophen (Tylenol) 650 mg Q4H PRN ORAL FEVER 02/27/17 23:45 03/29/17 23:44 Amantadine HCl (Symmetrel) 100 mg DAILY GT 02/28/17 09:00 03/30/17 08:59 03/07/17 08:47 Ascorbic Acid (Vitamin C) 500 mg DAILY GT 02/28/17 09:00 03/30/17 08:59 03/07/17 08:47 Atorvastatin Calcium (Lipitor) 10 mg BEDTIME GT 02/28/17 21:00 03/30/17 20:59 03/06/17 21:51 Chlorhexidine Gluconate (Paulina-Hex 2%) 1 applic DAILY@1999 TOPIC 03/02/17 20:00 04/01/17 19:59 03/06/17 21:51 Clotrimazole (Lotrimin) 1 applic EVERY 12 HOURS TOPIC 03/01/17 21:00 03/31/17 20:59 03/07/17 08:48 Dextrose (Dextrose 50%) STAT PRN IV Hypoglycemia 02/27/17 23:45 03/29/17 23:44 Fluconazole/ Sodium Chloride 200 ml @ 100 mls/hr Q24H IV 03/03/17 18:00 03/10/17 17:59 03/06/17 18:26 Lansoprazole (Prevacid) 30 mg Q12HR GT 02/28/17 21:00 03/30/17 20:59 03/07/17 08:47 Linezolid 300 ml @ 300 mls/hr Q12HR IVPB 03/04/17 11:30 03/11/17 11:29 03/07/17 08:47 Midodrine (Pro-Amatine) 10 mg Q8HR GT 02/28/17 06:00 03/30/17 05:59 03/07/17 06:36 Ondansetron HCl (Zofran) 4 mg Q6H PRN IVP Nausea & Vomiting 02/27/17 23:45 03/29/17 23:44 Potassium Chloride (K-Dur) 40 meq ONCE ONCE NG 03/07/17 09:45 03/07/17 09:46 ELSI Bernard ([facility])Taylor NP Mar 07, 2017 09:47
[2017-03-07 12:00] VITALS: BP 120/83
--- NOTE | 2017-03-07 14:16 | Infectious Diseases Prog Note ---
Assessment/Plan Assessment/Plan Assessment: Fungemia Shelli tropicalis repeat Bc: 03/01 : Neg Probable PICC( 01/22) infection removed on 03/02 Leukocytosis- , mild -CT abd/p -02/27 Bilateral lower lobe atelectasis and consolidation Afebrile Recent persistent low grade CONS bacteremia- SP Rx for presumed endocarditis/ endovascular source -Bcx 01/21 2/4 CONS, 01/23 + 1/4, 01/26, +1/4 -TTE very limited, no vegetations seen. HUONG could not be done Recent Providencia UTI s/p 14d Aztreonam repeat UCx : VRE and Provid. Hx of PNA - sp cx ACB Recent coffee ground emesis -EGD 01/2017: gastritis; on coumadin History of chronically elevated alkaline phosphatase CVA with anoxic brain injury Sacral decubitus. Ventilator-dependent respiratory failure. History of trach and PEG placement. COPD. Esophagitis, Hx EGD : . Minimum distal esophagitis. Gastritis, status post biopsy. 01/23 Diabetes. Anxiety. Anemia. Plan: - Cont Diflucan d# / , add Zyvox d#4 ( VRE UTI ) - SP IV aztreonam # 7 and IV Vancomycin for endocarditis # 42 / 42 03/03 SP Mycamine d# 3 -f/u cx( bl ) repeat in AM -Monitor CBC/BMP, temperatures -trach/peg care -aspiration precautions -wound care Subjective Constitutional: Denies: no symptoms, fever, chills, fatigue, anorexia, drenching sweats, other Allergies: Coded Allergies: OXYTETRACYCLINE (Unverified Allergy, Unknown, 09/05/13) PENICILLINS (Unverified Allergy, Unknown, 09/05/13) Uncoded Allergies: PLASTIC TAPE (Allergy, Mild, ITCHINESS, 08/08/15) MEDICAL TAPE (Allergy, Unknown, 12/10/16) Subjective afebrile Objective Vital Signs Last 24 Hour Vital Signs Date Time Temp Pulse Resp B/P (MAP) Pulse Ox O2 Delivery O2 Flow Rate FiO2 03/07/17 12:55 63 14 35 03/07/17 10:49 62 14 35 03/07/17 08:57 67 17 35 03/07/17 08:00 35 03/07/17 08:00 99.2 67 14 126/76 100 Mechanical Ventilator 35 03/07/17 08:00 58 03/07/17 07:34 69 14 35 03/07/17 05:05 69 14 35 03/07/17 04:00 35 03/07/17 04:00 74 03/07/17 04:00 98.9 80 14 109/70 100 Mechanical Ventilator 35 03/07/17 03:02 75 14 35 03/07/17 00:44 75 14 35 03/07/17 00:00 35 03/07/17 00:00 99.0 70 14 102/76 100 Mechanical Ventilator 35 03/07/17 00:00 74 03/06/17 22:44 72 14 35 03/06/17 20:58 75 17 35 03/06/17 20:00 35 03/06/17 20:00 69 03/06/17 20:00 99.1 73 15 133/79 100 Mechanical Ventilator 35 03/06/17 19:04 89 14 35 03/06/17 17:19 76 40 03/06/17 17:10 64 14 50 03/06/17 16:00 98.2 63 17 150/80 100 Mechanical Ventilator 50 03/06/17 16:00 63 03/06/17 16:00 50 03/06/17 14:41 69 16 50 Height (Feet): 5 Height (Inches): 6.00 Weight (Pounds): 147 HEENT: anicteric Respiratory/Chest: normal breath sounds Cardiovascular: no gallop/murmur Genitourinary: normal external genitalia Microbiology Date/Time Source Procedure Growth Status 03/05/17 22:00 Stool Clostridium difficile Toxin Assay - Final Complete Laboratory Tests Test 03/07/17 04:00 White Blood Count 11.9 K/UL (4.8-10.8) H Red Blood Count 3.77 M/UL (4.70-6.10) L Hemoglobin 11.4 G/DL (14.2-18.0) L Hematocrit 34.3 % (42.0-52.0) L Mean Corpuscular Volume 91 FL (80-99) Mean Corpuscular Hemoglobin 30.2 PG (27.0-31.0) Mean Corpuscular Hemoglobin Concent 33.3 G/DL (32.0-36.0) Red Cell Distribution Width 13.6 % (11.6-14.8) Platelet Count 242 K/UL (150-450) Mean Platelet Volume 10.7 FL (6.5-10.1) H Neutrophils (%) (Auto) 65.0 % (45.0-75.0) Lymphocytes (%) (Auto) 19.2 % (20.0-45.0) L Monocytes (%) (Auto) 9.9 % (1.0-10.0) Eosinophils (%) (Auto) 4.8 % (0.0-3.0) H Basophils (%) (Auto) 1.1 % (0.0-2.0) Sodium Level 140 MMOL/L (136-145) Potassium Level 3.1 MMOL/L (3.5-5.1) L Chloride Level 105 MMOL/L (98-107) Carbon Dioxide Level 27 MMOL/L (21-32) Anion Gap 8 mmol/L (5-15) Blood Urea Nitrogen 16 mg/dL (7-18) Creatinine 0.6 MG/DL (0.55-1.30) Estimat Glomerular Filtration Rate > 60 mL/min (>60) Glucose Level 114 MG/DL (74-106) H Calcium Level 9.1 MG/DL (8.5-10.1) Current Medications Medications (Trade) Dose Ordered Sig/Sima Route PRN Reason Start Time Stop Time Status Last Admin Dose Admin Acetaminophen (Tylenol) 650 mg Q4H PRN ORAL FEVER 02/27/17 23:45 03/29/17 23:44 Amantadine HCl (Symmetrel) 100 mg DAILY GT 02/28/17 09:00 03/30/17 08:59 03/07/17 08:47 Ascorbic Acid (Vitamin C) 500 mg DAILY GT 02/28/17 09:00 03/30/17 08:59 03/07/17 08:47 Atorvastatin Calcium (Lipitor) 10 mg BEDTIME GT 02/28/17 21:00 03/30/17 20:59 03/06/17 21:51 Chlorhexidine Gluconate (Paulina-Hex 2%) 1 applic DAILY@1999 TOPIC 03/02/17 20:00 04/01/17 19:59 03/06/17 21:51 Clotrimazole (Lotrimin) 1 applic EVERY 12 HOURS TOPIC 03/01/17 21:00 03/31/17 20:59 03/07/17 08:48 Dextrose (Dextrose 50%) STAT PRN IV Hypoglycemia 02/27/17 23:45 03/29/17 23:44 Fluconazole/ Sodium Chloride 200 ml @ 100 mls/hr Q24H IV 03/03/17 18:00 03/10/17 17:59 03/06/17 18:26 Lansoprazole (Prevacid) 30 mg Q12HR GT 02/28/17 21:00 03/30/17 20:59 03/07/17 08:47 Linezolid 300 ml @ 300 mls/hr Q12HR IVPB 03/04/17 11:30 03/11/17 11:29 03/07/17 08:47 Midodrine (Pro-Amatine) 10 mg Q8HR GT 02/28/17 06:00 03/30/17 05:59 03/07/17 06:36 Ondansetron HCl (Zofran) 4 mg Q6H PRN IVP Nausea & Vomiting 02/27/17 23:45 03/29/17 23:44 MARCELLA MA M.D. Mar 07, 2017 14:16
[2017-03-07 16:00] VITALS: BP 153/83
[2017-03-07] MEDS ORDERED: Tubing IV Secondary IV ONE (16:19)
[2017-03-07] MEDS ORDERED: NS 500ML ONE (16:19)
--- NOTE | 2017-03-07 16:23 | General Progress Note ---
Assessment/Plan Assessment/Plan (1) Feeding by G-tube ICD Codes: Z93.1 - Feeding by G-tube SNOMED: 750697974 (2) Coffee ground emesis ICD Codes: K92.0 - Hematemesis SNOMED: 632904297, 50732258 (3) Ileus ICD Codes: K56.7 - Ileus, unspecified SNOMED: 326970953 (4) Vomiting ICD Codes: R11.10 - Vomiting, unspecified SNOMED: 142482623 (5) Gastrointestinal hemorrhage ICD Codes: K92.2 - Gastrointestinal hemorrhage, unspecified SNOMED: 97641582 Status: stable, unchanged Assessment/Plan OB stool positive KUB reviewed >> negative for ileus stable H&H hold EGD for now, supportive care prn transfusions ppi electrolyte correction fu stool C.diff GTFs per dietary fu labs Subjective Allergies: Coded Allergies: OXYTETRACYCLINE (Unverified Allergy, Unknown, 09/05/13) PENICILLINS (Unverified Allergy, Unknown, 09/05/13) Uncoded Allergies: PLASTIC TAPE (Allergy, Mild, ITCHINESS, 08/08/15) MEDICAL TAPE (Allergy, Unknown, 12/10/16) Subjective non communicative tolerating TF at 50 /hr Objective Last 24 Hour Vital Signs Date Time Temp Pulse Resp B/P (MAP) Pulse Ox O2 Delivery O2 Flow Rate FiO2 03/07/17 15:20 63 15 35 03/07/17 12:55 63 14 35 03/07/17 12:00 99.0 80 17 120/83 100 Mechanical Ventilator 35 03/07/17 12:00 35 03/07/17 12:00 79 03/07/17 10:49 62 14 35 03/07/17 08:57 67 17 35 03/07/17 08:00 35 03/07/17 08:00 99.2 67 14 126/76 100 Mechanical Ventilator 35 03/07/17 08:00 58 03/07/17 07:34 69 14 35 03/07/17 05:05 69 14 35 03/07/17 04:00 35 03/07/17 04:00 74 03/07/17 04:00 98.9 80 14 109/70 100 Mechanical Ventilator 35 03/07/17 03:02 75 14 35 03/07/17 00:44 75 14 35 03/07/17 00:00 35 03/07/17 00:00 99.0 70 14 102/76 100 Mechanical Ventilator 35 03/07/17 00:00 74 03/06/17 22:44 72 14 35 03/06/17 20:58 75 17 35 03/06/17 20:00 35 03/06/17 20:00 69 03/06/17 20:00 99.1 73 15 133/79 100 Mechanical Ventilator 35 03/06/17 19:04 89 14 35 03/06/17 17:19 76 40 03/06/17 17:10 64 14 50 Intake and Output 03/07/17 03/08/17 19:00 07:00 Intake Total 690 ml Balance 690 ml Free Water 100 ml Tube Feeding 350 ml Other 240 ml Laboratory Tests 03/07/17 04:00: White Blood Count 11.9H, Red Blood Count 3.77L, Hemoglobin 11.4L, Hematocrit 34.3L, Mean Corpuscular Volume 91, Mean Corpuscular Hemoglobin 30.2, Mean Corpuscular Hemoglobin Concent 33.3, Red Cell Distribution Width 13.6, Platelet Count 242, Mean Platelet Volume 10.7H, Neutrophils (%) (Auto) 65.0, Lymphocytes (%) (Auto) 19.2L, Monocytes (%) (Auto) 9.9, Eosinophils (%) (Auto) 4.8H, Basophils (%) (Auto) 1.1, Sodium Level 140, Potassium Level 3.1L, Chloride Level 105, Carbon Dioxide Level 27, Anion Gap 8, Blood Urea Nitrogen 16, Creatinine 0.6, Estimat Glomerular Filtration Rate > 60, Glucose Level 114H, Calcium Level 9.1 Height (Feet): 5 Height (Inches): 6.00 Weight (Pounds): 147 Objective Debilitated man NCAT (+) trach coarse BS RR soft NT ND , (+) PEG no edema (+) contracted ANDRA MATHIS Mar 07, 2017 16:23
[2017-03-07 20:00] VITALS: BP 141/84
[2017-03-07] MEDS: Dyna-Hex 2% Top Sol 2oz TOPIC SCH (21:25)
[2017-03-08] VITALS: BP 120/79
[2017-03-08 04:00] VITALS: BP 108/77
[2017-03-08 05:55] LABS: BASOPHILS % (AUTO) 1.2 % (0.0-2.0); EOSINOPHILS % (AUTO) 5.3 % (0.0-3.0); HEMATOCRIT 35.5 % (42.0-52.0); HEMOGLOBIN 11.7 G/DL (14.2-18.0); LYMPHOCYTES % (AUTO) 18.1 % (20.0-45.0); MEAN CORPUSCULAR VOLUME 91 FL (80-99); MONOCYTES % (AUTO) 8.2 % (1.0-10.0); NEUTROPHILS % (AUTO) 67.2 % (45.0-75.0); PLATELET COUNT 269 K/UL (150-450); RED BLOOD COUNT 3.92 M/UL (4.70-6.10); RED CELL DISTRIBUTION WIDTH 13.2 % (11.6-14.8); WHITE BLOOD COUNT 12.1 K/UL (4.8-10.8)
[2017-03-08] MEDS: Midodrine 10mg tab GT SCH ×3 (06:11→21:06)
[2017-03-08 06:25] LABS: ANION GAP 9 mmol/L (5-15); BLOOD UREA NITROGEN 15 mg/dL (7-18); CALCIUM 9.3 MG/DL (8.5-10.1); CARBON DIOXIDE 27 MMOL/L (21-32); CHLORIDE 103 MMOL/L (98-107); CREATININE 0.7 MG/DL (0.55-1.30); POTASSIUM 3.6 MMOL/L (3.5-5.1); SODIUM 139 MMOL/L (136-145)
[2017-03-08 08:00] VITALS: BP 120/80
--- NOTE | 2017-03-08 08:07 | Pulmonology Progress Note ---
Assessment/Plan Assessment/Plan ASSESSMENT upper GI bleeding- resolved Sepsis with Shelli fungemia UTI with Providencia, VRE possible endocarditis possible ileus probable enteritis Dysphagia, G tube VDRF with tracheostomy status Hypokalemia diarrhea anemia Hx of CVA with anoxic encephalopathy coccyx decub ulcer st 2 POA severe protein calorie malnutrition PLAN OF CARE PERCY status vent support trach care pulmonary toilet baseline ABG stable, titrate FiO2 to keep sat above 92% and titrate settings as needed Fup with CXR on Thursday abx and antifungal, ID follows blood cx + Shelli, repeated negative, stool cx negative, stool C dif negative Recent Providencia UTI s/p 14d Aztreonam repeat UCx : VRE and Provid. per ID fungemia likely due to PICC line infection ( left UE PICC dc and new RUE PICC inserted) TTE very limited, no vegetation seen. HUONG could not be done ; per ID being treated for presumed endocarditis continue Midodrine, BP remains stable with Midodrine Aspiration precautions, GT feeding, monitor tolerance CT A/P noted, possible ileus vs enteritis KUB noted, no ileus, GI follows a/emetic prn GI prophylaxis monitor HH , transfuse with goal to keep Hgb above 7.5, anemia w/up with stable iron stool OB + correct lytes as needed, monitor closely, replace K today pain management stool for C dif negative rectal tube dietary eval re TF change possibly contributing to diarrhea and low albumin with evidence of severe protein calorie malnutrition wound care as per wound nurse recommendations dc plan ID to specify duration of abx upon dc case discussed and evaluated by supervising physician Subjective Allergies: Coded Allergies: OXYTETRACYCLINE (Unverified Allergy, Unknown, 09/05/13) PENICILLINS (Unverified Allergy, Unknown, 09/05/13) Uncoded Allergies: PLASTIC TAPE (Allergy, Mild, ITCHINESS, 08/08/15) MEDICAL TAPE (Allergy, Unknown, 12/10/16) Subjective still with leukocytosis, afebrile stool C dif negative still diarrhea , but less K stable after replacement no epsilons of upper GI bleeding, no hematemesis, stable HH Objective Last 24 Hour Vital Signs Date Time Temp Pulse Resp B/P (MAP) Pulse Ox O2 Delivery O2 Flow Rate FiO2 03/08/17 06:50 70 15 35 03/08/17 05:24 81 15 35 03/08/17 04:00 35 03/08/17 04:00 98.9 77 14 108/77 100 Mechanical Ventilator 35 03/08/17 03:37 72 03/08/17 02:59 74 14 35 03/08/17 01:06 69 15 35 03/08/17 00:00 99.1 73 15 120/79 100 Mechanical Ventilator 35 03/08/17 00:00 72 03/08/17 00:00 35 03/07/17 22:40 69 15 35 03/07/17 21:19 70 15 35 03/07/17 20:00 35 03/07/17 20:00 98.1 67 14 141/84 99 Mechanical Ventilator 35 03/07/17 19:42 69 03/07/17 17:10 68 15 35 03/07/17 16:00 67 03/07/17 16:00 98.6 80 15 153/83 100 Mechanical Ventilator 35 03/07/17 16:00 35 03/07/17 15:20 63 15 35 03/07/17 12:55 63 14 35 03/07/17 12:00 99.0 80 17 120/83 100 Mechanical Ventilator 35 03/07/17 12:00 35 03/07/17 12:00 79 03/07/17 10:49 62 14 35 03/07/17 08:57 67 17 35 Intake and Output 03/08/17 03/09/17 19:00 07:00 Intake Total 50 ml Balance 50 ml Tube Feeding 50 ml Objective General Appearance: no acute distress, bedridden, chronically ill poorly responsive male on vent AC 600-50-14 HEENT: normocephalic, atraumatic, anicteric, status post trach - Portex#7, secretions small, white, thin Respiratory/Chest: lungs clear Cardiovascular: normal rate, regular rhythm - SR on tele , LUE PICC Abdomen: G tube, rectal tube, + BS abdomen soft Extremities: no edema, pedal pulses normal Neurologic/Psychiatric: abnormal gait - bedridden , contractedx4 , poorly responsive , open eyes spontaneously today Microbiology Date/Time Source Procedure Growth Status 03/05/17 22:00 Stool Clostridium difficile Toxin Assay - Final Complete Laboratory Tests 03/08/17 04:30: White Blood Count 12.1H, Red Blood Count 3.92L, Hemoglobin 11.7L, Hematocrit 35.5L, Mean Corpuscular Volume 91, Mean Corpuscular Hemoglobin 30.0, Mean Corpuscular Hemoglobin Concent 33.1, Red Cell Distribution Width 13.2, Platelet Count 269, Mean Platelet Volume 9.8, Neutrophils (%) (Auto) 67.2, Lymphocytes (% ) (Auto) 18.1L, Monocytes (%) (Auto) 8.2, Eosinophils (%) (Auto) 5.3H, Basophils (%) (Auto) 1.2, Sodium Level 139, Potassium Level 3.6, Chloride Level 103, Carbon Dioxide Level 27, Anion Gap 9, Blood Urea Nitrogen 15, Creatinine 0.7, Estimat Glomerular Filtration Rate > 60, Glucose Level 114H, Calcium Level 9.3, Magnesium Level 1.9 Current Medications Medications (Trade) Dose Ordered Sig/Sima Route PRN Reason Start Time Stop Time Status Last Admin Dose Admin Acetaminophen (Tylenol) 650 mg Q4H PRN ORAL FEVER 02/27/17 23:45 03/29/17 23:44 Amantadine HCl (Symmetrel) 100 mg DAILY GT 02/28/17 09:00 03/30/17 08:59 03/07/17 08:47 Ascorbic Acid (Vitamin C) 500 mg DAILY GT 02/28/17 09:00 03/30/17 08:59 03/07/17 08:47 Atorvastatin Calcium (Lipitor) 10 mg BEDTIME GT 02/28/17 21:00 03/30/17 20:59 03/07/17 21:25 Chlorhexidine Gluconate (Paulina-Hex 2%) 1 applic DAILY@1999 TOPIC 03/02/17 20:00 04/01/17 19:59 03/07/17 21:25 Clotrimazole (Lotrimin) 1 applic EVERY 12 HOURS TOPIC 03/01/17 21:00 03/31/17 20:59 03/07/17 21:26 Dextrose (Dextrose 50%) STAT PRN IV Hypoglycemia 02/27/17 23:45 03/29/17 23:44 Fluconazole/ Sodium Chloride 200 ml @ 100 mls/hr Q24H IV 03/03/17 18:00 03/10/17 17:59 03/07/17 18:14 Lansoprazole (Prevacid) 30 mg Q12HR GT 02/28/17 21:00 03/30/17 20:59 12/16/17 21:25 Linezolid 300 ml @ 300 mls/hr Q12HR IVPB 03/04/17 11:30 03/11/17 11:29 03/07/17 21:26 Midodrine (Pro-Amatine) 10 mg Q8HR GT 02/28/17 06:00 03/30/17 05:59 03/08/17 06:11 Ondansetron HCl (Zofran) 4 mg Q6H PRN IVP Nausea & Vomiting 02/27/17 23:45 03/29/17 23:44 Marco Antonio ([facility])Taylor NP Mar 08, 2017 08:07
[2017-03-08] MEDS: Ascorbic Acid 500mg tab GT SCH (08:19)
[2017-03-08] MEDS: Amantadine 100mg cap GT SCH (08:19)
[2017-03-08 12:00] VITALS: BP 121/85
--- NOTE | 2017-03-08 13:48 | General Progress Note ---
Assessment/Plan Assessment/Plan (1) Feeding by G-tube ICD Codes: Z93.1 - Feeding by G-tube SNOMED: 537856646 (2) Coffee ground emesis ICD Codes: K92.0 - Hematemesis SNOMED: 834442464, 58412386 (3) Ileus ICD Codes: K56.7 - Ileus, unspecified SNOMED: 269941912 (4) Vomiting ICD Codes: R11.10 - Vomiting, unspecified SNOMED: 819761675 (5) Gastrointestinal hemorrhage ICD Codes: K92.2 - Gastrointestinal hemorrhage, unspecified SNOMED: 29393217 Status: stable, unchanged Assessment/Plan OB stool positive KUB reviewed >> negative for ileus stable H&H hold EGD for now, supportive care prn transfusions ppi electrolyte correction fu stool C.diff GTFs per dietary fu labs Subjective Allergies: Coded Allergies: OXYTETRACYCLINE (Unverified Allergy, Unknown, 09/05/13) PENICILLINS (Unverified Allergy, Unknown, 09/05/13) Uncoded Allergies: PLASTIC TAPE (Allergy, Mild, ITCHINESS, 08/08/15) MEDICAL TAPE (Allergy, Unknown, 12/10/16) Subjective non communicative tolerating TF at 50 /hr Objective Last 24 Hour Vital Signs Date Time Temp Pulse Resp B/P (MAP) Pulse Ox O2 Delivery O2 Flow Rate FiO2 03/08/17 12:51 73 14 35 03/08/17 12:00 35 03/08/17 10:57 71 14 35 03/08/17 08:33 71 14 35 03/08/17 08:00 35 03/08/17 08:00 97.9 70 14 120/80 99 Mechanical Ventilator 35 03/08/17 08:00 70 03/08/17 06:50 70 15 35 03/08/17 05:24 81 15 35 03/08/17 04:00 35 03/08/17 04:00 98.9 77 14 108/77 100 Mechanical Ventilator 35 03/08/17 03:37 72 03/08/17 02:59 74 14 35 03/08/17 01:06 69 15 35 03/08/17 00:00 99.1 73 15 120/79 100 Mechanical Ventilator 35 03/08/17 00:00 72 03/08/17 00:00 35 03/07/17 22:40 69 15 35 03/07/17 21:19 70 15 35 03/07/17 20:00 35 03/07/17 20:00 98.1 67 14 141/84 99 Mechanical Ventilator 35 03/07/17 19:42 69 03/07/17 17:10 68 15 35 03/07/17 16:00 67 03/07/17 16:00 98.6 80 15 153/83 100 Mechanical Ventilator 35 03/07/17 16:00 35 03/07/17 15:20 63 15 35 Intake and Output 03/08/17 03/09/17 19:00 07:00 Intake Total 610 ml Balance 610 ml Free Water 30 ml IV Total 300 ml Tube Feeding 250 ml Other 30 ml Laboratory Tests 03/08/17 04:30: White Blood Count 12.1H, Red Blood Count 3.92L, Hemoglobin 11.7L, Hematocrit 35.5L, Mean Corpuscular Volume 91, Mean Corpuscular Hemoglobin 30.0, Mean Corpuscular Hemoglobin Concent 33.1, Red Cell Distribution Width 13.2, Platelet Count 269, Mean Platelet Volume 9.8, Neutrophils (%) (Auto) 67.2, Lymphocytes (% ) (Auto) 18.1L, Monocytes (%) (Auto) 8.2, Eosinophils (%) (Auto) 5.3H, Basophils (%) (Auto) 1.2, Sodium Level 139, Potassium Level 3.6, Chloride Level 103, Carbon Dioxide Level 27, Anion Gap 9, Blood Urea Nitrogen 15, Creatinine 0.7, Estimat Glomerular Filtration Rate > 60, Glucose Level 114H, Calcium Level 9.3, Magnesium Level 1.9 Height (Feet): 5 Height (Inches): 6.00 Weight (Pounds): 147 Objective Debilitated man NCAT (+) trach coarse BS RR soft NT ND , (+) PEG no edema (+) contracted ANDRA MATHIS Mar 08, 2017 13:48
[2017-03-08 16:00] VITALS: BP 117/84
[2017-03-08] MEDS: Fluconazole 100mg tab ORAL SCH (17:15)
[2017-03-08] MEDS ORDERED: NS 500ML ONE (17:32)
[2017-03-08] MEDS ORDERED: Tubing IV Secondary IV ONE (17:32)
[2017-03-08 20:00] VITALS: BP 110/77
[2017-03-08] MEDS: Dyna-Hex 2% Top Sol 2oz TOPIC SCH (20:56)
--- NOTE | 2017-03-08 22:30 | Wound Care Consultation ---
Wound Assessment Wound Assessment #1: Wound Present on Admission: Yes New Wound: No Status Change of Wound: No Wound Location Body Site: perineal area Wound Type: erosion - on scrotum area Abhishek Test: Does not Abhishek Wound Thickness: Partial Thickness Percent of Wound [place]/Red: 100 Wound Drainage Amount: None Wound Drainage Odor: None/Absent Tissue Surrounding Wound: Erythemic Wound General Appearance: Reddened Wound Assessment #2: Wound Number: 2 Wound Present on Admission: Yes New Wound: No Status Change of Wound: No Wound Location Body Site Modif: left Wound Location Body Site: buttocks Wound Type: pressure ulcer Abhishek Test: Does not Abhishek Pressure Ulcer Stage: Deep Tissue Injury - SDTI Wound Thickness: Full Thickness Wound Length: 2.5 Wound Width: 2.0 Wound Depth: utd Percent of Wound Purple/Maroon: 100 Wound Drainage Amount: None Wound Drainage Odor: None/Absent Tissue Surrounding Wound: Erythemic Wound General Appearance: Reddened - purple Wound Comment #1 Coccyx area stage II pressure ulcer. RESOLVED. #2 Perineal area erosion secondary to shelli rashes. Good progress noted. Will change treatment to skin barrier cream. #3 Shelli Rashes on lower back area. RESOLVED. #4 Left buttock SDTI pressure ulcer. Skin still intact. #5 Sacrococcygeal full thickness scar tissue. Skin still intact. Reassessed This Pt. Good progress noted. Will cont to monitor and follow treatment recommendations. Recommendation -Local wound care per protocol -Keep clean and dry -Turn and reposition -Optimize nutrition -Offload both heels -Heel protector on both heels -Low air loss mattress -Assess and f/u accordingly for any changes SCOOBY FIORE RN Mar 08, 2017 22:30
[2017-03-09 04:00] VITALS: BP 118/76
--- NOTE | 2017-03-09 04:15 | Progress Note ---
DATE: 03/07/2017 SUBJECTIVE: The patient is awake and alert, afebrile, hemodynamically stable. PHYSICAL EXAMINATION: VITAL SIGNS: Blood pressure 141/84, his pulse is 67, respirations 14, and temperature 98.1 degrees. HEENT: Eyes were normal. ENT, mucous membranes were moist and intact. NECK: Supple with no JVD without lymph nodes. Tracheostomy site is clean. LUNGS: Clear without rhonchi, rales, or wheezing. Secretions are small, thin, and [place]. HEART: Normal sounds with regular heart beat. There is no S3, S4, or pericardial rub. ABDOMEN: Soft and nontender with normal bowel sounds. Gastrostomy site is clean. EXTREMITIES: Warm without cyanosis, clubbing, or edema. LABORATORY AND DIAGNOSTIC DATA: His hemoglobin is 11.4, hematocrit 24.3 with MCV of 91, WBC of 11.9, and platelets is 242. His WBC was 15.2 yesterday. His BUN and creatinine are 15 and 0.6 respectively. His sodium is 140, potassium 3.1, chloride 105, and CO2 is 27. His chest x-ray showed no change for the last several days in right pleural effusion. His stool for C. diff is negative. His blood culture showed no growth after 5 days. IMPRESSION: The patient's general condition is improving. He is afebrile, hemodynamically stable without tachycardia, and possibly declining leukocytosis. We will continue to follow the patient. Urine grew Providencia stuartii and Enterococcus faecalis. His initial blood culture was positive for Shelli tropicalis on 2 different occasions. Currently, blood culture is negative. C. difficile is negative. The patient is afebrile and his WBC is declining. Repeat laboratory tests will be done in the morning. Boris Arevalo M.D. DR: Camila JOB#: [id number] CC:
[2017-03-09] MEDS: Midodrine 10mg tab GT SCH ×2 (05:46→14:16)
[2017-03-09 06:11] LABS: BASOPHILS % (AUTO) 1.3 % (0.0-2.0); EOSINOPHILS % (AUTO) 4.3 % (0.0-3.0); HEMATOCRIT 42.1 % (42.0-52.0); HEMOGLOBIN 13.8 G/DL (14.2-18.0); LYMPHOCYTES % (AUTO) 17.5 % (20.0-45.0); MEAN CORPUSCULAR VOLUME 90 FL (80-99); MONOCYTES % (AUTO) 5.9 % (1.0-10.0); PLATELET COUNT 318 K/UL (150-450); RED BLOOD COUNT 4.66 M/UL (4.70-6.10); RED CELL DISTRIBUTION WIDTH 13.4 % (11.6-14.8)
[2017-03-09 08:00] VITALS: BP 127/88
--- NOTE | 2017-03-09 08:12 | General Progress Note ---
Assessment/Plan Status: stable Assessment/Plan (1) Feeding by G-tube ICD Codes: Z93.1 - Feeding by G-tube SNOMED: 494662480 (2) Coffee ground emesis ICD Codes: K92.0 - Hematemesis SNOMED: 056293304, 72679218 (3) Ileus ICD Codes: K56.7 - Ileus, unspecified SNOMED: 377807082 (4) Vomiting ICD Codes: R11.10 - Vomiting, unspecified SNOMED: 011366007 (5) Gastrointestinal hemorrhage ICD Codes: K92.2 - Gastrointestinal hemorrhage, unspecified SNOMED: 63730692 Status: stable, unchanged Plan: DC pending GI clearance Subjective ROS Limited/Unobtainable: Yes Allergies: Coded Allergies: OXYTETRACYCLINE (Unverified Allergy, Unknown, 09/05/13) PENICILLINS (Unverified Allergy, Unknown, 09/05/13) Uncoded Allergies: PLASTIC TAPE (Allergy, Mild, ITCHINESS, 08/08/15) MEDICAL TAPE (Allergy, Unknown, 12/10/16) Objective Last 24 Hour Vital Signs Date Time Temp Pulse Resp B/P (MAP) Pulse Ox O2 Delivery O2 Flow Rate FiO2 03/09/17 08:00 35 03/09/17 07:28 92 17 35 03/09/17 05:28 94 14 35 03/09/17 04:00 98.7 89 16 118/76 100 Mechanical Ventilator 35 03/09/17 04:00 35 03/09/17 04:00 92 03/09/17 03:31 91 15 35 03/09/17 02:08 98.1 03/09/17 01:49 98.1 03/09/17 01:25 75 14 35 03/09/17 01:00 99.6 03/09/17 00:00 35 03/09/17 00:00 74 03/08/17 23:46 75 14 35 03/08/17 20:32 83 14 35 03/08/17 20:00 83 03/08/17 20:00 35 03/08/17 20:00 98.7 78 14 110/77 100 Mechanical Ventilator 35 03/08/17 19:35 79 14 35 03/08/17 17:05 76 14 35 03/08/17 16:00 98.2 76 14 117/84 100 Mechanical Ventilator 35 03/08/17 16:00 80 12/17/17 16:00 35 03/08/17 15:29 76 14 35 03/08/17 14:56 78 14 35 03/08/17 12:51 73 14 35 03/08/17 12:00 98.2 80 16 121/85 100 Mechanical Ventilator 35 03/08/17 12:00 77 03/08/17 12:00 35 03/08/17 10:57 71 14 35 03/08/17 08:33 71 14 35 Laboratory Tests 03/09/17 05:50: White Blood Count 13.0H, Red Blood Count 4.66L, Hemoglobin 13.8L, Hematocrit 42.1, Mean Corpuscular Volume 90, Mean Corpuscular Hemoglobin 29.6, Mean Corpuscular Hemoglobin Concent 32.8, Red Cell Distribution Width 13.4, Platelet Count 318, Mean Platelet Volume 10.5H, Neutrophils (%) (Auto) 71.0, Lymphocytes (%) (Auto) 17.5L, Monocytes (%) (Auto) 5.9, Eosinophils (%) (Auto) 4.3H, Basophils (%) (Auto) 1.3 Height (Feet): 5 Height (Inches): 6.00 Weight (Pounds): 147 General Appearance: no apparent distress EENT: other - not following the commands Neck: supple Cardiovascular: normal rate Respiratory/Chest: rhonchi - bilaterally Abdomen: soft Extremities: other - limtied eval. atrophied musculature Neurologic: disoriented Mirna Enamorado MD Mar 09, 2017 08:12
[2017-03-09] MEDS ORDERED: DIFLUCAN100 MG ORAL (08:13)
[2017-03-09] MEDS ORDERED: PRO-AMATINE10 MG GT (08:13)
[2017-03-09] MEDS ORDERED: ZYVOX600 MG ORAL (08:13)
[2017-03-09] MEDS: Ascorbic Acid 500mg tab GT SCH (09:13)
[2017-03-09] MEDS: Amantadine 100mg cap GT SCH (09:13)
--- NOTE | 2017-03-09 10:11 | Pulmonology Progress Note ---
Assessment/Plan Problems: (1) Fungemia (2) Chronic respiratory failure (3) Fever (4) Pneumonia (5) GI bleed (6) Diarrhea (7) History of CVA (cerebrovascular accident) Assessment/Plan -Optimize pulmonary hygiene/mobilize as tolerated -Continue ventilatory support/settings reviewed -Titrate down Fio2 to keep SaO2 > 90% -PRN HHN's -Abx and Flucon per ID -TF's as tolerated -F/U GI recs -DVT Px: SCD's -Dispo planning -FC Subjective ROS Limited/Unobtainable: Yes Interval Events: Tm 99.6 VSS, stable on vent, O2 needs stable, no sig secretions Allergies: Coded Allergies: OXYTETRACYCLINE (Unverified Allergy, Unknown, 09/05/13) PENICILLINS (Unverified Allergy, Unknown, 09/05/13) Uncoded Allergies: PLASTIC TAPE (Allergy, Mild, ITCHINESS, 08/08/15) MEDICAL TAPE (Allergy, Unknown, 12/10/16) Objective Last 24 Hour Vital Signs Date Time Temp Pulse Resp B/P (MAP) Pulse Ox O2 Delivery O2 Flow Rate FiO2 03/09/17 08:36 91 16 35 03/09/17 08:00 35 03/09/17 07:28 92 17 35 03/09/17 05:28 94 14 35 03/09/17 04:00 98.7 89 16 118/76 100 Mechanical Ventilator 35 03/09/17 04:00 35 03/09/17 04:00 92 03/09/17 03:31 91 15 35 03/09/17 02:08 98.1 03/09/17 01:49 98.1 03/09/17 01:25 75 14 35 03/09/17 01:00 99.6 03/09/17 00:00 35 03/09/17 00:00 74 03/08/17 23:46 75 14 35 03/08/17 20:32 83 14 35 03/08/17 20:00 83 03/08/17 20:00 35 03/08/17 20:00 98.7 78 14 110/77 100 Mechanical Ventilator 35 03/08/17 19:35 79 14 35 03/08/17 17:05 76 14 35 03/08/17 16:00 98.2 76 14 117/84 100 Mechanical Ventilator 35 03/08/17 16:00 80 03/08/17 16:00 35 03/08/17 15:29 76 14 35 03/08/17 14:56 78 14 35 03/08/17 12:51 73 14 35 03/08/17 12:00 98.2 80 16 121/85 100 Mechanical Ventilator 35 03/08/17 12:00 77 03/08/17 12:00 35 03/08/17 10:57 71 14 35 General Appearance: no acute distress HEENT: status post trach Respiratory/Chest: lungs clear Cardiovascular: normal peripheral pulses, normal rate, regular rhythm Abdomen: normal bowel sounds, soft, non tender, no organomegaly, other - GT Extremities: no cyanosis, no clubbing, no edema Laboratory Tests 03/09/17 05:50: White Blood Count 13.0H, Red Blood Count 4.66L, Hemoglobin 13.8L, Hematocrit 42.1, Mean Corpuscular Volume 90, Mean Corpuscular Hemoglobin 29.6, Mean Corpuscular Hemoglobin Concent 32.8, Red Cell Distribution Width 13.4, Platelet Count 318, Mean Platelet Volume 10.5H, Neutrophils (%) (Auto) 71.0, Lymphocytes (%) (Auto) 17.5L, Monocytes (%) (Auto) 5.9, Eosinophils (%) (Auto) 4.3H, Basophils (%) (Auto) 1.3 Current Medications Medications (Trade) Dose Ordered Sig/Sima Route PRN Reason Start Time Stop Time Status Last Admin Dose Admin Acetaminophen (Tylenol) 650 mg Q4H PRN ORAL FEVER 02/27/17 23:45 03/29/17 23:44 03/09/17 01:09 Amantadine HCl (Symmetrel) 100 mg DAILY GT 02/28/17 09:00 03/30/17 08:59 03/09/17 09:13 Ascorbic Acid (Vitamin C) 500 mg DAILY GT 02/28/17 09:00 03/30/17 08:59 03/09/17 09:13 Atorvastatin Calcium (Lipitor) 10 mg BEDTIME GT 02/28/17 21:00 03/30/17 20:59 03/08/17 20:56 Chlorhexidine Gluconate (Paulina-Hex 2%) 1 applic DAILY@1999 TOPIC 03/02/17 20:00 04/01/17 19:59 03/08/17 20:56 Dextrose (Dextrose 50%) STAT PRN IV Hypoglycemia 02/27/17 23:45 03/29/17 23:44 Fluconazole (Diflucan) 200 mg DAILY@1800 ORAL 03/08/17 18:00 03/10/17 17:59 03/08/17 17:15 Lansoprazole (Prevacid) 30 mg Q12HR GT 02/28/17 21:00 03/30/17 20:59 03/09/17 09:13 Linezolid (Zyvox) 600 mg Q12HR ORAL 03/08/17 21:00 03/13/17 20:59 03/09/17 09:13 Midodrine (Pro-Amatine) 10 mg Q8HR GT 02/28/17 06:00 03/30/17 05:59 03/09/17 05:46 Ondansetron HCl (Zofran) 4 mg Q6H PRN IVP Nausea & Vomiting 02/27/17 23:45 03/29/17 23:44 KARSTEN PIZANO M.D. Mar 09, 2017 10:11
--- NOTE | 2017-03-09 10:53 | Infectious Diseases Prog Note ---
Assessment/Plan Assessment/Plan Assessment: Fungemia Shelli tropicalis repeat Bc: 03/01 : Neg Probable PICC( 01/22) infection removed on 03/02 Leukocytosis- , mild -CT abd/p -02/27 Bilateral lower lobe atelectasis and consolidation Afebrile Recent persistent low grade CONS bacteremia- SP Rx for presumed endocarditis/ endovascular source -Bcx 01/21 2/4 CONS, 01/23 + 1/4, 01/26, +1/4 -TTE very limited, no vegetations seen. HUONG could not be done Recent Providencia UTI s/p 14d Aztreonam repeat UCx : VRE and Provid. Hx of PNA - sp cx ACB Recent coffee ground emesis -EGD 01/2017: gastritis; on coumadin History of chronically elevated alkaline phosphatase CVA with anoxic brain injury Sacral decubitus. Ventilator-dependent respiratory failure. History of trach and PEG placement. COPD. Esophagitis, Hx EGD : . Minimum distal esophagitis. Gastritis, status post biopsy. 01/23 Diabetes. Anxiety. Anemia. Plan: - Cont Diflucan d# / , add Zyvox d# / ( VRE UTI ) ,. ok to DC pt on oral AB Rx to complete the course - SP IV aztreonam # 7 and IV Vancomycin for endocarditis # 42 / 42 03/03 SP Mycamine d# 3 -f/u cx( bl ) -Monitor CBC/BMP, temperatures -trach/peg care -aspiration precautions -wound care Subjective Constitutional: Denies: no symptoms, fever, chills, fatigue, anorexia, drenching sweats, other Allergies: Coded Allergies: OXYTETRACYCLINE (Unverified Allergy, Unknown, 09/05/13) PENICILLINS (Unverified Allergy, Unknown, 09/05/13) Uncoded Allergies: PLASTIC TAPE (Allergy, Mild, ITCHINESS, 08/08/15) MEDICAL TAPE (Allergy, Unknown, 12/10/16) Subjective afebrile Objective Vital Signs Last 24 Hour Vital Signs Date Time Temp Pulse Resp B/P (MAP) Pulse Ox O2 Delivery O2 Flow Rate FiO2 03/09/17 10:32 92 16 35 03/09/17 08:36 91 16 35 03/09/17 08:00 35 03/09/17 08:00 94 03/09/17 07:28 92 17 35 12/18/17 05:28 94 14 35 03/09/17 04:00 98.7 89 16 118/76 100 Mechanical Ventilator 35 03/09/17 04:00 35 03/09/17 04:00 92 03/09/17 03:31 91 15 35 03/09/17 02:08 98.1 03/09/17 01:49 98.1 03/09/17 01:25 75 14 35 03/09/17 01:00 99.6 03/09/17 00:00 35 03/09/17 00:00 74 03/08/17 23:46 75 14 35 03/08/17 20:32 83 14 35 03/08/17 20:00 83 03/08/17 20:00 35 03/08/17 20:00 98.7 78 14 110/77 100 Mechanical Ventilator 35 03/08/17 19:35 79 14 35 03/08/17 17:05 76 14 35 03/08/17 16:00 98.2 76 14 117/84 100 Mechanical Ventilator 35 03/08/17 16:00 80 03/08/17 16:00 35 03/08/17 15:29 76 14 35 03/08/17 14:56 78 14 35 03/08/17 12:51 73 14 35 03/08/17 12:00 98.2 80 16 121/85 100 Mechanical Ventilator 35 03/08/17 12:00 77 03/08/17 12:00 35 03/08/17 10:57 71 14 35 Height (Feet): 5 Height (Inches): 6.00 Weight (Pounds): 147 HEENT: anicteric Respiratory/Chest: normal breath sounds Abdomen: non distended Laboratory Tests Test 03/09/17 05:50 White Blood Count 13.0 K/UL (4.8-10.8) H Red Blood Count 4.66 M/UL (4.70-6.10) L Hemoglobin 13.8 G/DL (14.2-18.0) L Hematocrit 42.1 % (42.0-52.0) Mean Corpuscular Volume 90 FL (80-99) Mean Corpuscular Hemoglobin 29.6 PG (27.0-31.0) Mean Corpuscular Hemoglobin Concent 32.8 G/DL (32.0-36.0) Red Cell Distribution Width 13.4 % (11.6-14.8) Platelet Count 318 K/UL (150-450) Mean Platelet Volume 10.5 FL (6.5-10.1) H Neutrophils (%) (Auto) 71.0 % (45.0-75.0) Lymphocytes (%) (Auto) 17.5 % (20.0-45.0) L Monocytes (%) (Auto) 5.9 % (1.0-10.0) Eosinophils (%) (Auto) 4.3 % (0.0-3.0) H Basophils (%) (Auto) 1.3 % (0.0-2.0) Current Medications Medications (Trade) Dose Ordered Sig/Sima Route PRN Reason Start Time Stop Time Status Last Admin Dose Admin Acetaminophen (Tylenol) 650 mg Q4H PRN ORAL FEVER 02/27/17 23:45 03/29/17 23:44 03/09/17 01:09 Amantadine HCl (Symmetrel) 100 mg DAILY GT 02/28/17 09:00 03/30/17 08:59 03/09/17 09:13 Ascorbic Acid (Vitamin C) 500 mg DAILY GT 02/28/17 09:00 03/30/17 08:59 03/09/17 09:13 Atorvastatin Calcium (Lipitor) 10 mg BEDTIME GT 02/28/17 21:00 03/30/17 20:59 03/08/17 20:56 Chlorhexidine Gluconate (Paulina-Hex 2%) 1 applic DAILY@2000 TOPIC 03/02/17 20:00 04/01/17 19:59 03/08/17 20:56 Dextrose (Dextrose 50%) STAT PRN IV Hypoglycemia 02/27/17 23:45 03/29/17 23:44 Fluconazole (Diflucan) 200 mg DAILY@1800 ORAL 03/08/17 18:00 03/10/17 17:59 03/08/17 17:15 Lansoprazole (Prevacid) 30 mg Q12HR GT 02/28/17 21:00 03/30/17 20:59 03/09/17 09:13 Linezolid (Zyvox) 600 mg Q12HR ORAL 03/08/17 21:00 03/13/17 20:59 03/09/17 09:13 Midodrine (Pro-Amatine) 10 mg Q8HR GT 02/28/17 06:00 03/30/17 05:59 03/09/17 05:46 Ondansetron HCl (Zofran) 4 mg Q6H PRN IVP Nausea & Vomiting 02/27/17 23:45 03/29/17 23:44 MARCELLA MA M.D. Mar 09, 2017 10:53
--- NOTE | 2017-03-09 11:28 | GI Progress Note ---
Assessment/Plan Problems: (1) Feeding by G-tube ICD Codes: Z93.1 - Feeding by G-tube SNOMED: 758376030 (2) Coffee ground emesis ICD Codes: K92.0 - Hematemesis SNOMED: 293568731, 40735518 (3) Ileus ICD Codes: K56.7 - Ileus, unspecified SNOMED: 040036114 (4) Vomiting ICD Codes: R11.10 - Vomiting, unspecified SNOMED: 152528546 (5) Gastrointestinal hemorrhage ICD Codes: K92.2 - Gastrointestinal hemorrhage, unspecified SNOMED: 23609641 Status: stable, unchanged Status Narrative Discussed with Dr. Rosas. Assessment/Plan OB stool positive KUB reviewed >> negative for ileus stable H&H defer EGD, supportive care prn transfusions ppi electrolyte correction fu stool C.diff GTFs per dietary fu labs Subjective Subjective limited Objective Last 24 Hour Vital Signs Date Time Temp Pulse Resp B/P (MAP) Pulse Ox O2 Delivery O2 Flow Rate FiO2 03/09/17 10:32 92 16 35 03/09/17 08:36 91 16 35 03/09/17 08:00 35 03/09/17 08:00 94 03/09/17 07:28 92 17 35 03/09/17 05:28 94 14 35 03/09/17 04:00 98.7 89 16 118/76 100 Mechanical Ventilator 35 03/09/17 04:00 35 03/09/17 04:00 92 03/09/17 03:31 91 15 35 03/09/17 02:08 98.1 03/09/17 01:49 98.1 03/09/17 01:25 75 14 35 03/09/17 01:00 99.6 03/09/17 00:00 35 03/09/17 00:00 74 03/08/17 23:46 75 14 35 03/08/17 20:32 83 14 35 03/08/17 20:00 83 03/08/17 20:00 35 03/08/17 20:00 98.7 78 14 110/77 100 Mechanical Ventilator 35 03/08/17 19:35 79 14 35 03/08/17 17:05 76 14 35 03/08/17 16:00 98.2 76 14 117/84 100 Mechanical Ventilator 35 03/08/17 16:00 80 03/08/17 16:00 35 03/08/17 15:29 76 14 35 03/08/17 14:56 78 14 35 03/08/17 12:51 73 14 35 03/08/17 12:00 98.2 80 16 121/85 100 Mechanical Ventilator 35 03/08/17 12:00 77 03/08/17 12:00 35 Laboratory Tests Test 03/09/17 05:50 White Blood Count 13.0 K/UL (4.8-10.8) H Red Blood Count 4.66 M/UL (4.70-6.10) L Hemoglobin 13.8 G/DL (14.2-18.0) L Hematocrit 42.1 % (42.0-52.0) Mean Corpuscular Volume 90 FL (80-99) Mean Corpuscular Hemoglobin 29.6 PG (27.0-31.0) Mean Corpuscular Hemoglobin Concent 32.8 G/DL (32.0-36.0) Red Cell Distribution Width 13.4 % (11.6-14.8) Platelet Count 318 K/UL (150-450) Mean Platelet Volume 10.5 FL (6.5-10.1) H Neutrophils (%) (Auto) 71.0 % (45.0-75.0) Lymphocytes (%) (Auto) 17.5 % (20.0-45.0) L Monocytes (%) (Auto) 5.9 % (1.0-10.0) Eosinophils (%) (Auto) 4.3 % (0.0-3.0) H Basophils (%) (Auto) 1.3 % (0.0-2.0) Height (Feet): 5 Height (Inches): 6.00 Weight (Pounds): 147 General Appearance: no apparent distress Cardiovascular: normal rate Respiratory/Chest: normal breath sounds, no respiratory distress, other - mech vent Abdominal Exam: normal bowel sounds, non tender, soft, GT site - c/d/i Extremities: non-tender Katina Garcia N.PSammie Mar 09, 2017 11:28
[2017-03-09 12:00] VITALS: BP 105/79
--- NOTE | 2017-03-09 14:13 | Diagnostic Imaging Report ---
Indication: Dyspnea Comparison: 03/06/2017 A single view chest radiograph was obtained. Findings: Tubes and lines are stable. Lung volumes are low. Heart size is normal. IMPRESSION: No acute disease
[2017-03-09 16:00] VITALS: BP 144/96
[2017-03-09] MEDS: Fluconazole 100mg tab ORAL SCH (18:11)
[2017-03-09 20:00] VITALS: BP 115/79
[2017-03-09] MEDS: Dyna-Hex 2% Top Sol 2oz TOPIC SCH (20:00)
[2017-03-09] MEDS ORDERED: NS 500ML ONE (21:29)
--- NOTE | 2017-03-11 08:02 | Discharge Summary ---
Discharge Summary Hospital Course Date of Admission Feb 27, 2017 at 22:50 Date of Discharge Mar 09, 2017 at 21:30 Admitting Diagnosis upper GI bleed KIZZY Mike is a 62 year old male who was admitted on Feb 27, 2017 at 22:50 for Upper Gi Bleed Hospital Course dc summary #[id number] Discharge Medications New Medications: Fluconazole* (Diflucan*) 100 Mg Tablet 200 MG ORAL DAILY@1800 for 7 Days, #7 TAB Linezolid* (Zyvox*) 600 Mg Tablet 600 MG ORAL Q12HR for 7 Days, #14 TAB Midodrine (Midodrine HCl) 10 Mg Tablet 10 MG GT Q8HR, #30 TAB Continued Medications: Acetaminophen (Acetaminophen) 650 Mg/20.3 Ml Soln 650 MG ORAL Q4HR PRN for Prn Headache/Temp > 101, ML 0 Refills Acidophilus/Bulgaricus (Lactinex Chewable Tablet) 1 Each Tab.chew 1 EACH GT TID, TAB Al Hydroxide/mg Hydroxide (Mag-Al Liquid) 30 Ml Susp 30 ML GT Albuterol Sulfate* (Albuterol Sulfate Hhn*) 2.5 Mg/3 Ml Vial.neb 3 ML INH Q6H for Shortness of Breath, #30 EA 0 Refills Amantadine Hcl* (Amantadine*) 100 Mg Tablet 100 MG GT DAILY, TAB Ascorbic Acid* (Vitamin C*) 500 Mg Tablet 500 MG GT DAILY, #30 TAB 0 Refills Aspirin* (Aspir 81*) 81 Mg Tablet. 81 MG ORAL DAILY, TAB Aspirin* (Aspir 81*) 81 Mg Tablet. 81 MG ORAL DAILY, TAB Atorvastatin Calcium* (Atorvastatin Calcium*) 20 Mg Tablet 10 MG GT BEDTIME, TAB Cran/Vitc/Mannose/Inulin/Brom (Uti-Stat Liquid) 3,875 Mg/30 Ml Liquid 30 ML GT BID, ML Dextran 70/Hypromellose (Artificial Tears Eye Drops) 15 Ml Drops 1 DROP BOTH EYES BID, ML Enoxaparin* (Lovenox*) 40 Mg/0.4 Ml Inj 40 MG SUBQ DAILY Folic Acid* (Folic Acid*) 1 Mg Tablet 1 MG GT DAILY, TAB Ipratropium [place] (Atrovent Hfa) 12.9 Gm Hfa.aer.ad 0.5 MG HHN Q6HR Magnesium Hydroxide* (Milk Of Magnesia*) 400 Mg/5 Ml Oral.susp 30 ML ORAL DAILY, ML Omeprazole (Omeprazole) 20 Mg Tablet.dr 20 MG GT DAILY, TAB Ondansetron* (Zofran*) 4 Mg Tablet 4 MG ORAL Q6H PRN for Nausea & Vomiting, TAB Polyethylene Glycol 3350* (Miralax*) 17 Gm Powd.pack 17 GM GT DAILY, PACKET Zinc Sulfate (Zinc Sulfate*) 220 Mg Capsule 220 MG GT DAILY, CAP 0 Refills Discontinued Medications: Midodrine* (Proamatine*) 10 Mg Tablet 10 MG GT Q8HR, TAB Discharge Condition Upon Discharge: stable Discharge Disposition Patient was discharged to SNF/Subacute Facility(03) Discharge Diagnoses: Marco Antonio ([facility])Taylor NP Mar 11, 2017 08:02
--- NOTE | 2017-03-12 04:15 | Discharge Summary 2 SIG ---
DATE OF ADMISSION: 02/27/2017 DATE OF DISCHARGE: 03/09/2017 REASON FOR ADMISSION: 62-year-old male with history of ventilator-dependent respiratory failure, tracheostomy, dysphagia, G-tube, history of CVA, bedridden, was sent from the snf facility for alleged episode of coffee-ground emesis. The patient had a recent admission in January for the similar issue. Endoscopy at that time revealed gastritis. The patient was on Coumadin for DVT which was stopped. The patient also had a recent episode of UTI with Providencia and possible pneumonia. Upon evaluation in emergency room, the patient was tachycardic with heart rate -114, pulse oximetry was stable on current ventilator settings , the patient was afebrile. Leukocytosis, WBC -18.8, mild anemia, hemoglobin -12.1, hematocrit -36.6. Potassium -2.3. AST slightly elevated- 45. Stable renal parameters. Chest x-ray revealed bilateral lower lobe atelectasis/consolidation, pneumonia or aspiration was not excluded. CT of the abdomen and pelvis revealed markedly distended colon with fluid and gas, possibly nonspecific enteritis or functional ileus; bilateral lower lobe atelectasis, and consolidation. Aspiration pneumonia was not excluded. The patient was admitted with diagnoses of sepsis, upper GI bleeding, hypokalemia, possible ileus, possible pneumonia. HOSPITAL COURSE: The patient admitted to [facility]. GI consult was requested. GI closely followed. Stool OB was positive. KUB revealed ileus. Bowel regimen instituted. Hemoglobin and hematocrit remained stable. Anemia workup revealed stable iron. GI deferred EGD at this time since stable hemoglobin and hematocrit and no further evidence of hematemesis Supportive care provided. Initially NPO, on the IV fluid. G-tube feeding slowly started as per dietary recommendation and increased to goal as recommended. Aspiration/reflux precautions were maintained. PPI provided. Stool for C. difficile was negative. Stool culture was negative. The patient initially started on empiric antibiotics. Blood culture initially revealed Shelli. Repeated blood cultures were negative. Stool culture was negative. Stool for C. difficile was negative. The patient with recent history of Providencia UTI, status post 14 days of aztreonam. Repeated urine culture revealed VRE and Providencia with small colony count of 30-40. Per infectious disease doctor, fungemia was likely due to the PICC line infection. Left upper extremity PICC was discontinued and new right upper extremity PICC line was inserted. 2D echo was limited but no vegetation was seen. The patient however was on vancomycin for possible endocarditis, as per ID recommendations. HUONG could not be done. Diarrhea subsided. Infectious diseases cleared for discharge on oral antibiotics, fluconazole and Zyvox for additional seven days. Supervisor Shipping Room closely followed. Ventilator support and pulmonary toilet provided as needed. Baseline ABG was stable on current settings. Settings were kept as is and FiO2 titrated as needed to keep saturation above 92%. Followup chest x-ray revealed no acute disease. Blood pressure was initially low, and was supported with midodrine. Midodrine to be continued at SNF. Blood pressure stable with Midodrine. The patient had diarrhea. Rectal tube was placed in. Diarrhea subsided. Electrolyte imbalances were corrected as needed. Hemoglobin and hematocrit closely monitored and remained stable. Wound care provided as per wound care nurse recommendation for coccyx decubitus stage II, present on admission. Dietary recommendation implemented regarding protein supplement due to the severe protein-calorie malnutrition. The patient was stable for discharge back to snf facility on oral antibiotics for additional seven days. FINAL DIAGNOSES: 1. Upper gastrointestinal bleeding, resolved. 2. Sepsis with Shelli fungemia. 3. Urinary tract infection with vancomycin-resistant Enterococcus and Providencia. 4. Possible endocarditis. 5. Possible ileus. 6. Probable enteritis. 7. Dysphagia, gastrostomy tube. 8. Ventilator-dependent respiratory failure with tracheostomy status. 9. Hypokalemia, resolved. 10. Diarrhea, improved. 11. Anemia, stable. 12. History of cerebrovascular accident with anoxic encephalopathy. 13. Coccyx decubitus ulcer stage II, present on admission. 14. Severe protein-calorie malnutrition. DISCHARGE MEDICATIONS: See medication reconciliation list. DISCHARGE INSTRUCTIONS: The patient was discharged to snf facility to subacute unit. Follow up with medical doctor and reduction furnace operator at the facility.[id number] the course of antibiotics. Closely monitor for any evidence if hematemesis. Sagar Rudd M.D. Taylor Bernard N.P. ([place]) DR: Evelio JOB#: [id number] CC: ANI
--- NOTE | 2017-03-24 18:19 | Physician Query ---
PLEASE COMPLETE THE QUESTION BEFORE SIGNING Dear Dr. ALBANIA CRAMER Date: 03/24/2016 Bioinformatics Engineer/CDS Name: MICHELLE LE CCS Exercise your independent professional judgment when responding to the query. Questions asked do not imply a particular answer is desired or expected. We greatly appreciate your clarification on this issue. CLINICAL DOCUMENTATION STATES: The patient initially started on empiric antibiotics. Blood culture initially revealed Shelli. Repeated blood cultures were negative. Stool culture was negative. Stool for C. difficile was negative. The patient with recent history of Providencia UTI, status post 14 days of aztreonam. Repeated urine culture revealed VRE and Providencia with small colony count of 30-40. Per infectious disease doctor, fungemia was likely due to the PICC line infection. Left upper extremity PICC was discontinued and new right upper extremity PICC line was inserted. CLINICAL FINDINGS SHOW: BLOOD CULTURE SHELLI TROPICALIS Please respond to the following question: Is there a causal relationship between the PICC LINE AND SEPSIS ? PHYSICIAN RESPONSE: [] YES [] NO Condition Present on admission [x] Yes [] No []Clinically Undeterminable Please also document in your Progress Notes and/or Discharge summary and indicate if the condition was present on admission. Quintin MCGOVERN
== END 2017-03-09 21:30 | DRG 721 ==
LOC: EDBD 21:51 → EMR 22:39 → 2W 22:50 → EDBEDREQ 23:42 → 2W 03-01 01:03
PROC: 5A1955Z Respiratory Ventilation, Greater than 96 Consecutive Hours (ICD-10-PCS; principal; 2017-02-27)
PROC: 02HV33Z Insertion of Infusion Device into Superior Vena Cava, Percutaneous Approach (ICD-10-PCS; 2017-03-03)
PROC: B548ZZA Ultrasonography of Superior Vena Cava, Guidance (ICD-10-PCS; 2017-03-03)
DX: T80.211A Bloodstream infection due to central venous catheter, initial encounter (principal); J18.9 Pneumonia, unspecified organism; E43 Unspecified severe protein-calorie malnutrition; G93.1 Anoxic brain damage, not elsewhere classified; K92.0 Hematemesis; B49 Unspecified mycosis; J96.10 Chronic respiratory failure, unspecified whether with hypoxia or hypercapnia; I38 Endocarditis, valve unspecified; L89.152 Pressure ulcer of sacral region, stage 2; Z93.0 Tracheostomy status; R13.10 Dysphagia, unspecified; Z93.1 Gastrostomy status; I69.998 Other sequelae following unspecified cerebrovascular disease; Z68.23 Body mass index [BMI] 23.0-23.9, adult; K56.7 Ileus, unspecified; E11.9 Type 2 diabetes mellitus without complications; J44.9 Chronic obstructive pulmonary disease, unspecified; E87.6 Hypokalemia; G20 Parkinson's disease; E78.5 Hyperlipidemia, unspecified; N39.0 Urinary tract infection, site not specified; D64.9 Anemia, unspecified; F41.9 Anxiety disorder, unspecified; B95.2 Enterococcus as the cause of diseases classified elsewhere; B96.89 Other specified bacterial agents as the cause of diseases classified elsewhere; K52.89 Other specified noninfective gastroenteritis and colitis
CPT/HCPCS: 36415; 36569; 36600; 71010; 74000; 74176; 76937; 80048; 80053; 80069; 80202; 81003; 82270; 82803; 83540; 83550; 83735; 84100; 85007; 85025; 85610; 85651; 86850; 86900; 86901; 87040; 87045; 87081; 87086; 87181; 87324; 93005; 93970; 94002; 94003; 94664; 97802; 99285; J8499

== ENCOUNTER 2018-05-15 17:48 | Inpatient (IN) | payer OTHER ==
[~2018-05-15] VITALS: Ht 167.6 cm; Wt 69.9 kg
[~2018-05-15 17:48] MED LIST changes: -AMANTADINE100 M2 ORAL; +ASPIR 8181 MG GT; +DIFLUCAN100 MG ORAL; +PERIDEX 0.12% O16 OZ GT; -PERIDEX 0.12% O16 OZ ORAL; +PRO-AMATINE10 MG GT; +ZYVOX600 MG ORAL
[2018-05-15 17:50] VITALS: BP 127/67
--- NOTE | 2018-05-15 17:50 | NUR ---
ED Nurse Note: PAtient biba from [facility] c/o coffee ground emesis. patient is diaphoretic and is contracted, patients rectal temperature was 97.0, Blood sugar was 102. Patient is awake however is not alert and oriented, patient is able to open eyes and withdraws from pain.
--- NOTE | 2018-05-15 18:00 | NUR ---
ED Nurse Note: Patient does have 3 wounds total one is located on the patient's right foot, that is about 3 inches in diameter, one is on the bottom of the patient's left foot, along with the big toe of the left foot. placed a dressing on wound.
--- NOTE | 2018-05-15 18:30 | NUR ---
[facility] called- is tube station attendant- left message to call us back.
--- NOTE | 2018-05-15 18:30 | Emergency Room Report ---
History of Present Illness General Chief Complaint: Gastrointestinal Bleed Source: EMS Present Illness HPI Patient presents to the emergency room with reports of coffee-ground emesis Patient does have a feeding tube in place Patient himself is chronically debilitated nonverbal History of present illness is significantly limited There was no reports of diarrhea Patient is responsive to some physical stimuli however significantly decreased GCS Allergies: Coded Allergies: OXYTETRACYCLINE (Unverified Allergy, Unknown, 09/05/13) PENICILLINS (Unverified Allergy, Unknown, 06/11/17) Tolerated one dose of Cefepime 06/07/17 Tolerated Cefdinir 06/10/17 Uncoded Allergies: PLASTIC TAPE (Allergy, Mild, ITCHINESS, 08/08/15) MEDICAL TAPE (Allergy, Unknown, 12/10/16) Patient History Limited by: medical condition Past Medical History: see triage record Pertinent Family History: none Reviewed Nursing Documentation: PMH: Agreed; PSxH: Agreed Nursing Documentation-PMH Past Medical History: No History, Except For Hx COPD: Yes - vent dependent/respiratory failure Hx Diabetes: Yes Hx Cancer: No Hx Gastrointestinal Problems: Yes - ABD hernia Hx Cerebrovascular Accident: Yes Hx Transient Ischemic Attacks: Yes Hx Dementia: Yes Hx Parkinson's Disease: Yes Hx Seizures: No - Pressure ulcers right and left buttocks (2 on each side) Hx Memory Loss: Yes Hx Concentration Difficulty: Yes Hx Speech Problem: Yes Hx Dysphasia: Yes Review of Systems All Other Systems: limited - Other than the ones mentioned in the history of present illness all others are reviewed however they do stay limited due to the patient's mental status Physical Exam Vital Signs Date Time Temp Pulse Resp B/P (MAP) Pulse Ox O2 Delivery O2 Flow Rate FiO2 05/15/18 17:35 103 15 118/76 100 Mechanical Ventilator 05/15/18 17:52 40 05/15/18 17:57 60.0 Sp02 EP Interpretation: reviewed, normal General Appearance: no apparent distress Head: normocephalic, atraumatic Eyes: bilateral eye PERRL ENT: dry mucus membranes Neck: supple, other - Tracheostomy in place no crepitus Respiratory: no retraction, no accessory muscle use, crackles - Bilaterally Cardiovascular #1: regular rate, rhythm Gastrointestinal: non tender, soft Musculoskeletal: other - Patient chronically debilitated, Contracted in upper and lower extremity Neurologic: responsive - To physical stimuli Skin: other - Multiple skin breakdowns Lymphatic: no adenopathy Medical Decision Making Diagnostic Impression: Primary Impression: Gastrointestinal hemorrhage ER Course Patient is a fairly complex patient with multiple differential to consideration including but not limited to cardiac cardiopulmonary and vascular emergencies Given the complaints acute gastrointestinal pathology also entertained At this time patient remains hemodynamically stable Acute intervention was not required however patient will require further EP H&H and GI consultation Labs Test 05/15/18 18:00 White Blood Count 12.5 K/UL (4.8-10.8) Red Blood Count 6.11 M/UL (4.70-6.10) Hemoglobin 17.4 G/DL (14.2-18.0) Hematocrit 53.2 % (42.0-52.0) Mean Corpuscular Volume 87 FL (80-99) Mean Corpuscular Hemoglobin 28.5 PG (27.0-31.0) Mean Corpuscular Hemoglobin Concent 32.7 G/DL (32.0-36.0) Red Cell Distribution Width 14.1 % (11.6-14.8) Platelet Count 259 K/UL (150-450) Mean Platelet Volume 11.2 FL (6.5-10.1) Neutrophils (%) (Auto) 64.9 % (45.0-75.0) Lymphocytes (%) (Auto) 21.4 % (20.0-45.0) Monocytes (%) (Auto) 5.2 % (1.0-10.0) Eosinophils (%) (Auto) 7.4 % (0.0-3.0) Basophils (%) (Auto) 1.1 % (0.0-2.0) Prothrombin Time 13.5 SEC (9.30-11.50) Prothromb Time International Ratio 1.3 (0.9-1.1) Activated Partial Thromboplast Time 38 SEC (23-33) Sodium Level 138 MMOL/L (136-145) Potassium Level 4.4 MMOL/L (3.5-5.1) Chloride Level 104 MMOL/L (98-107) Carbon Dioxide Level 27 MMOL/L (21-32) Anion Gap 7 mmol/L (5-15) Blood Urea Nitrogen 24 mg/dL (7-18) Creatinine 0.8 MG/DL (0.55-1.30) Estimat Glomerular Filtration Rate > 60 mL/min (>60) Glucose Level 109 MG/DL (74-106) Calcium Level 9.8 MG/DL (8.5-10.1) Total Bilirubin 0.6 MG/DL (0.2-1.0) Aspartate Amino Transf (AST/SGOT) 89 U/L (15-37) Alanine Aminotransferase (ALT/SGPT) 75 U/L (12-78) Alkaline Phosphatase 525 U/L (46-116) Total Creatine Kinase 174 U/L (26-308) Creatine Kinase MB 2.0 NG/ML (0.0-3.6) Creatine Kinase MB Relative Index 1.1 Troponin I 0.000 ng/mL (0.000-0.056) Total Protein 9.3 G/DL (6.4-8.2) Albumin 3.2 G/DL (3.4-5.0) Globulin 6.1 g/dL Albumin/Globulin Ratio 0.5 (1.0-2.7) Rhythm Strip Diag. Results EP Interpretation: yes Rate: 80 Rhythm: NSR, no PVC's, no ectopy Chest X-Ray Diagnostic Results Chest X-Ray Diagnostic Results : Chest X-Ray Ordered: Yes # of Views/Limited/Complete: 1 View Indication: Chest Pain EP Interpretation: Yes Interpretation: no consolidation, no pneumothorax, other - Bilateral atelectasis, mild congestion Impression: Other - Bilateral atelectasis, mild congestion Electronically Signed by: Jacob Garrett DO Last Vital Signs Date Time Temp Pulse Resp B/P (MAP) Pulse Ox O2 Delivery O2 Flow Rate FiO2 05/15/18 17:57 105 26 Mechanical Ventilator 60.0 40 05/15/18 17:35 118/76 100 Status: improved Disposition: ADMITTED INPATIENT Condition: Serious Jacob Garrett DO May 15, 2018 18:30
[2018-05-15 18:42] LABS: ANION GAP 7 mmol/L (5-15); BLOOD UREA NITROGEN 24 mg/dL (7-18); CALCIUM 9.8 MG/DL (8.5-10.1); CARBON DIOXIDE 27 MMOL/L (21-32); CHLORIDE 104 MMOL/L (98-107); CREATININE 0.8 MG/DL (0.55-1.30); POTASSIUM 4.4 MMOL/L (3.5-5.1); SODIUM 138 MMOL/L (136-145)
[2018-05-15 18:43] LABS: BASOPHILS % (AUTO) 1.1 % (0.0-2.0); EOSINOPHILS % (AUTO) 7.4 % (0.0-3.0); HEMATOCRIT 53.2 % (42.0-52.0); HEMOGLOBIN 17.4 G/DL (14.2-18.0); LYMPHOCYTES % (AUTO) 21.4 % (20.0-45.0); MEAN CORPUSCULAR VOLUME 87 FL (80-99); MONOCYTES % (AUTO) 5.2 % (1.0-10.0); NEUTROPHILS % (AUTO) 64.9 % (45.0-75.0); PLATELET COUNT 259 K/UL (150-450); RED BLOOD COUNT 6.11 M/UL (4.70-6.10); RED CELL DISTRIBUTION WIDTH 14.1 % (11.6-14.8); WHITE BLOOD COUNT 12.5 K/UL (4.8-10.8)
[2018-05-15 18:47] LABS: INR 1.3 (0.9-1.1)
--- NOTE | 2018-05-15 18:52 | Diagnostic Imaging Report ---
EXAM: XR Chest, 1 View CLINICAL HISTORY: CP TECHNIQUE: Frontal view of the chest. COMPARISON: No relevant prior studies available. FINDINGS: Lungs: Bibasilar opacities. Findings may be inflammatory or infectious. Pleural space: Unremarkable. No pneumothorax. Heart: Unremarkable. No cardiomegaly. Mediastinum: Unremarkable. Bones/joints: Unremarkable. Tubes, lines and devices: Tracheostomy cannula within the thoracic inlet. Upper abdomen: Dilated loops of gas-filled bowel within the upper abdomen, which are nonspecific. Findings may represent bowel obstruction or ileus. IMPRESSION: Bibasilar opacities. Findings may be inflammatory or infectious.
[2018-05-15 18:55] LABS: ALANINE AMINOTRANSFERASE 75 U/L (12-78); ALBUMIN 3.2 G/DL (3.4-5.0); ALBUMIN/GLOBULIN RATIO 0.5 (1.0-2.7); ALKALINE PHOSPHATASE 525 U/L (46-116); ASPARTATE AMINO TRANSFERASE 89 U/L (15-37); BILIRUBIN,TOTAL 0.6 MG/DL (0.2-1.0); CREATINE KINASE 174 U/L (26-308)
[2018-05-15] MEDS ORDERED: ATORVASTATIN CA20 MG GT (18:55)
[2018-05-15] MEDS ORDERED: KLONOPIN0.5 MG GT (18:55)
[2018-05-15] MEDS ORDERED: TYLENOL325 MG GT (18:59)
[2018-05-15] MEDS ORDERED: ALDACTAZIDE 251 EACH GT (18:59)
[2018-05-15] MEDS ORDERED: NORCO 10-325 T1 EACH GT (18:59)
[2018-05-15] MEDS ORDERED: VITAMIN C500 M7 GT (19:01)
[2018-05-15] MEDS ORDERED: ZOFRAN4 M1 GT (19:01)
[2018-05-15] MEDS ORDERED: FOLGARD TABLET1 EAC1 GT (19:01)
--- NOTE | 2018-05-15 19:09 | NUR ---
ED Nurse Note: report received from GEOVANNA Mora
[2018-05-15 19:50] VITALS: BP 114/78
[2018-05-15 20:57] VITALS: BP 118/73
--- NOTE | 2018-05-15 21:20 | NUR ---
ED Nurse Note: PT WAS TRANSFERRED TO OTHER UNIT WITH DAYCARE PROVIDER, ACCOMPANIED BY SINGH, RN, CAN, EMT., AND RT. PT VSS, PT IS BEING VENTILLATED DURING TRANSFER, ALL BELONGINGS TAKEN.
[2018-05-15 21:30] VITALS: BP 124/78
--- NOTE | 2018-05-15 21:30 | NUR ---
NURSE NOTES: Received report from Jazmín Sosa RN (Morgan). Patient arrived in unit at 2130. Patient is obtunded, arousable to shaking and light pain. Sinus rhythm on email campaign specialist. No s/s of acute distress noted at this time. Saturating well on trach-vent settings: Port[place] 7, AC 16, Vt 600, FiO2 40%, PEEP 5. GT in place, auscultated. Left forearm 20g IV saline lock, intact and patent. Bed locked in lowest position with side rails up x3. Call light left within reach. Will continue to monitor.
[2018-05-15] MEDS ORDERED: Mylanta II UD 30ml ORAL PRN (22:30)
[2018-05-15] MEDS ORDERED: Miralax 17gm pkt ORAL PRN (22:30)
[2018-05-15] MEDS ORDERED: HYDROcodone/Acetamin 10/325 tab GT PRN (22:30)
[2018-05-15] MEDS ORDERED: Nitroglycerin Subl 0.4mg tab SL PRN (22:30)
[2018-05-15] MEDS ORDERED: Morphine Sulfate 2mg/ml Inj(IV/IM USE ONLY) IVP PRN (22:30)
--- NOTE | 2018-05-15 22:30 | NUR ---
NURSE NOTES: New orders received from Dr. Blaire MD. Noted and carried out.
[2018-05-15] MEDS: D5 1/2NS 1,000 ML IV SCH (23:00)
[2018-05-16 04:00] VITALS: BP 114/65
--- NOTE | 2018-05-16 04:33 | NUR ---
RESPIRATORY NOTE: PT. REMAINED STABLE ON CMV WITH CURRENT SETTINGS. SXN'D PRN WITHOUT ADVERSE REACTIONS. VENT CIRCUIT SECURE AND OUT OF THE WAY. NO S/S OF RESPIRATORY DISTRESS NOTED AT THIS TIME.
[2018-05-16 04:50] LABS: BASOPHILS % (AUTO) 0.8 % (0.0-2.0); EOSINOPHILS % (AUTO) 5.8 % (0.0-3.0); HEMATOCRIT 46.8 % (42.0-52.0); HEMOGLOBIN 15.5 G/DL (14.2-18.0); LYMPHOCYTES % (AUTO) 21.3 % (20.0-45.0); MEAN CORPUSCULAR VOLUME 87 FL (80-99); MONOCYTES % (AUTO) 5.7 % (1.0-10.0); NEUTROPHILS % (AUTO) 66.4 % (45.0-75.0); PLATELET COUNT 259 K/UL (150-450); RED CELL DISTRIBUTION WIDTH 14.1 % (11.6-14.8); WHITE BLOOD COUNT 12.1 K/UL (4.8-10.8)
[2018-05-16 05:00] LABS: INR 1.3 (0.9-1.1)
[2018-05-16 05:06] LABS: ALANINE AMINOTRANSFERASE 67 U/L (12-78); ALBUMIN 3.1 G/DL (3.4-5.0); ALBUMIN/GLOBULIN RATIO 0.6 (1.0-2.7); ALKALINE PHOSPHATASE 467 U/L (46-116); ANION GAP 8 mmol/L (5-15); ASPARTATE AMINO TRANSFERASE 67 U/L (15-37); BILIRUBIN,TOTAL 0.7 MG/DL (0.2-1.0); BLOOD UREA NITROGEN 23 mg/dL (7-18); CALCIUM 9.5 MG/DL (8.5-10.1); CARBON DIOXIDE 27 MMOL/L (21-32); CHLORIDE 105 MMOL/L (98-107); CREATININE 0.9 MG/DL (0.55-1.30); POTASSIUM 3.3 MMOL/L (3.5-5.1); SODIUM 140 MMOL/L (136-145)
--- NOTE | 2018-05-16 05:36 | NUR ---
NURSE NOTES: Left message for Dr. Blaire MD regarding patient's potassium 3.3 and no urine output during my shift. Awaiting response. Patient remains without s/s of acute distress. Will continue to monitor.
--- NOTE | 2018-05-16 06:01 | NUR ---
NURSE NOTES: Patient had 200cc urine output from condom catheter. Still awaiting response from MD regarding potassium.
[2018-05-16] MEDS: Albuterol/Ipratropium 3ml neb HHN SCH ×2 (07:08→15:10)
--- NOTE | 2018-05-16 07:15 | NUR ---
HAND-OFF: Report given to Cortney Rios RN and Cortney Salinas RN.
--- NOTE | 2018-05-16 07:16 | NUR ---
NURSE NOTES: Pt received from Ros Rodriguez RN. Pt is obtunded. No cardiorespiratory distress noted. Pt is trach to vent. Portex 7 ac 14 TV 600 FiO2 35% Peep 5. Pt is currently NPO. Condom catheter noted draining urine. L 20g forearm IV noted running fluids at 75 cc/Hr. Skin alterations noted. GT noted clamped at the moment. Bed in lowest position. Side rails up x 3. Call light within reach. Will continue to monitor pt.
[2018-05-16 08:00] VITALS: BP 107/68
[2018-05-16 12:00] VITALS: BP 116/93
--- NOTE | 2018-05-16 13:39 | NUR ---
CASE MANAGEMENT: REVIEW 63/M BIBA FROM [facility] CC: COFFEE GROUND EMESIS SI: GI BLEED . T 97.0 HR 105 RR 26 BP 127/67 SAT 100% MECH VENT FIO2 40 WBC 12.5 H/H 17.4/53.2 BUN 24 ALK PHOS 525 IS: KCl IVF X1 PATIENT ADMITTED TO STEP DOWN UNIT 05/15/2018 DCP: PATIENT IS FROM [facility]
[2018-05-16] MEDS: D5 1/2NS 1,000 ML IV SCH (13:47)
[2018-05-16 16:00] VITALS: BP 111/69
--- NOTE | 2018-05-16 18:36 | Consultation ---
History of Present Illness General Date patient seen: May 16, 2018 Chief Complaint: Gastrointestinal Bleed Present Illness Allergies: Coded Allergies: OXYTETRACYCLINE (Unverified Allergy, Unknown, 09/05/13) PENICILLINS (Unverified Allergy, Unknown, 06/11/17) Tolerated one dose of Cefepime 06/07/17 Tolerated Cefdinir 06/10/17 Uncoded Allergies: PLASTIC TAPE (Allergy, Mild, ITCHINESS, 08/08/15) MEDICAL TAPE (Allergy, Unknown, 12/10/16) Medication History Scheduled Albuterol Sulfate* (Albuterol Sulfate Hhn*), 3 ML INH Q6H, (Reported) Amantadine Hcl* (Amantadine*), 100 MG GT DAILY, (Reported) Ascorbic Acid* (Vitamin C*), 500 MG ORAL DAILY, (Reported) Aspirin* (Aspir 81*), 81 MG GT DAILY, (Reported) Atorvastatin Calcium* (Atorvastatin Calcium*), 10 MG GT BEDTIME, (Reported) Bisacodyl* (Dulcolax*), 10 MG RECTAL ONCE, (Reported) Chlorhexidine Gluconate (Chlorhexidine Gluconate), 15 ML GT TWICE A DAY, ( Reported) Cholecalciferol (Vitamin D3)* (Vitamin D*), 5,000 UNIT GT DAILY, (Reported) Clonazepam* (Klonopin*), 0.5 MG GT DAILY, (Reported) Docusate Sodium* (Docusate Sodium*), 100 MG GT DAILY, (Reported) Folic Acid* (Folic Acid*), 1 MG GT DAILY, (Reported) Heparin Sod (Porcine) (Heparin Sodium*), 5,000 UNITS SUBQ EVERY 12 HOURS, ( Reported) Midodrine (Midodrine HCl), 10 MG GT Q8HR Multivitamin Liquid* (Multi-Delyn*), 5 ML GT DAILY, (Reported) Omeprazole (Omeprazole), 20 MG GT DAILY, (Reported) Polyethylene Glycol 3350* (Miralax*), 17 GM GT DAILY, (Reported) Potassium Chloride (Potassium Chloride), 40 MEQ GT DAILY, (Reported) Spironolact/Hydrochlorothiazid (Aldactazide 25-25 Tablet), 1 TAB GT DAILY, ( Reported) Warfarin Sod* (Coumadin*), 5 MG GT DAILY, (Reported) Zinc Sulfate (Zinc Sulfate*), 220 MG GT DAILY, (Reported) Scheduled PRN Acetaminophen (Acetaminophen), 650 MG ORAL Q4HR PRN for Prn Headache/Temp > 101, (Reported) Acetaminophen (Tylenol), 325 MG GT Q4HR PRN for fever, (Reported) Hydrocodone Bit/Acetaminophen 10-325* (Amanda 10-325*), 1 TAB GT Q12HR PRN for For Pain, (Reported) Hydrocodone/Acetaminophen (Hydrocodon-Acetaminophn 10-325), 1 TAB ORAL EVERY 12 HOURS PRN for For Pain, (Reported) Lorazepam* (Lorazepam*), 0.5 MG GT Q6HR PRN for For Anxiety, (Reported) Ondansetron (Zofran), 4 MG GT Q6H PRN for Nausea & Vomiting, (Reported) Miscellaneous Medications Ascorbate Calcium (Vitamin C), 500 MG GT, (Reported) Insulin Lispro (Humalog), 0 SUBQ, (Reported) Vit D3/Folic Acid/B2/B6/B12 (Folgard Tablet), 1 EACH GT, (Reported) Patient History Healthcare decision maker Resuscitation status Full Code Advanced Directive on File Physical Exam Last 24 Hour Vital Signs Date Time Temp Pulse Resp B/P (MAP) Pulse Ox O2 Delivery O2 Flow Rate FiO2 05/16/18 16:55 83 14 35 05/16/18 16:00 35 05/16/18 16:00 98.1 14 111/69 (83) 99 05/16/18 16:00 Mechanical Ventilator 35.0 05/16/18 16:00 87 05/16/18 15:11 35 05/16/18 15:11 81 14 81 Mechanical Ventilator 35 05/16/18 15:10 81 15 35 05/16/18 13:16 84 15 35 05/16/18 12:00 35 05/16/18 12:00 97.7 87 14 116/93 (101) 100 05/16/18 12:00 87 05/16/18 12:00 Mechanical Ventilator 35.0 05/16/18 11:05 88 15 35 05/16/18 08:45 86 15 35 05/16/18 08:00 97.2 83 14 107/68 (81) 100 05/16/18 08:00 35 05/16/18 08:00 Mechanical Ventilator 35.0 05/16/18 08:00 84 05/16/18 07:30 84 14 100 Mechanical Ventilator 35 05/16/18 07:08 35 05/16/18 07:08 96 15 35 05/16/18 07:08 96 14 99 Mechanical Ventilator 35 05/16/18 04:33 102 15 35 05/16/18 04:00 98.1 104 14 114/65 (81) 98 05/16/18 04:00 35 05/16/18 04:00 103 05/16/18 04:00 Mechanical Ventilator 35.0 05/16/18 02:57 102 12 35 05/16/18 00:50 104 13 35 05/16/18 00:00 35 05/16/18 00:00 Mechanical Ventilator 35.0 05/15/18 23:41 96 05/15/18 23:27 90 05/15/18 22:39 95 16 40 05/15/18 21:30 97.9 101 17 124/78 (93) 100 05/15/18 21:30 Mechanical Ventilator 40.0 05/15/18 21:20 97.1 91 14 118/73 100 Mechanical Ventilator 60.0 40 05/15/18 21:17 93 16 40 05/15/18 20:57 97.1 91 14 118/73 100 Mechanical Ventilator 40 05/15/18 19:50 97.0 94 16 114/78 100 Mechanical Ventilator 40 05/15/18 19:25 105 14 40 Intake and Output 05/15/18 05/16/18 19:00 07:00 Intake Total 0 ml 450 ml Output Total 250 ml Balance 0 ml 200 ml Intake Oral 0 ml IV Total 450 ml Output Urine Total 250 ml Laboratory Tests Test 05/16/18 04:20 White Blood Count 12.1 K/UL (4.8-10.8) H Red Blood Count 5.40 M/UL (4.70-6.10) Hemoglobin 15.5 G/DL (14.2-18.0) Hematocrit 46.8 % (42.0-52.0) Mean Corpuscular Volume 87 FL (80-99) Mean Corpuscular Hemoglobin 28.7 PG (27.0-31.0) Mean Corpuscular Hemoglobin Concent 33.1 G/DL (32.0-36.0) Red Cell Distribution Width 14.1 % (11.6-14.8) Platelet Count 259 K/UL (150-450) Mean Platelet Volume 9.7 FL (6.5-10.1) Neutrophils (%) (Auto) 66.4 % (45.0-75.0) Lymphocytes (%) (Auto) 21.3 % (20.0-45.0) Monocytes (%) (Auto) 5.7 % (1.0-10.0) Eosinophils (%) (Auto) 5.8 % (0.0-3.0) H Basophils (%) (Auto) 0.8 % (0.0-2.0) Prothrombin Time 13.8 SEC (9.30-11.50) H Prothromb Time International Ratio 1.3 (0.9-1.1) H Activated Partial Thromboplast Time 35 SEC (23-33) H Sodium Level 140 MMOL/L (136-145) Potassium Level 3.3 MMOL/L (3.5-5.1) L Chloride Level 105 MMOL/L (98-107) Carbon Dioxide Level 27 MMOL/L (21-32) Anion Gap 8 mmol/L (5-15) Blood Urea Nitrogen 23 mg/dL (7-18) H Creatinine 0.9 MG/DL (0.55-1.30) Estimat Glomerular Filtration Rate > 60 mL/min (>60) Glucose Level 144 MG/DL (74-106) H Calcium Level 9.5 MG/DL (8.5-10.1) Total Bilirubin 0.7 MG/DL (0.2-1.0) Aspartate Amino Transf (AST/SGOT) 67 U/L (15-37) H Alanine Aminotransferase (ALT/SGPT) 67 U/L (12-78) Alkaline Phosphatase 467 U/L (46-116) H Total Protein 8.6 G/DL (6.4-8.2) H Albumin 3.1 G/DL (3.4-5.0) L Globulin 5.5 g/dL Albumin/Globulin Ratio 0.6 (1.0-2.7) L Microbiology Date/Time Source Procedure Growth Status 05/15/18 21:00 Rectum Received Height (Feet): 5 Height (Inches): 8.00 Weight (Pounds): 130 Medications Current Medications Medications (Trade) Dose Ordered Sig/Sima Route PRN Reason Start Time Stop Time Status Last Admin Dose Admin Acetaminophen (Tylenol) 650 mg Q4H PRN ORAL fever 05/15/18 22:30 06/14/18 22:29 Acetaminophen/ Hydrocodone Bitart (Amanda 10325) 1 tab Q12HR PRN GT For Pain 05/15/18 22:30 05/22/18 22:29 Al Hydroxide/Mg Hydroxide (Mylanta II) 30 ml Q6H PRN ORAL dyspepsia 05/15/18 22:30 06/14/18 22:29 Albuterol/ Ipratropium (Albuterol/ Ipratropium) 3 ml Q8HRT HHN 05/16/18 07:00 05/21/18 06:59 05/16/18 15:10 Atorvastatin Calcium (Lipitor) 10 mg BEDTIME GT 05/16/18 21:00 06/15/18 20:59 Dextrose (Dextrose 50%) STAT PRN IV Hypoglycemia 05/15/18 22:30 06/14/18 22:29 Dextrose/Sodium Chloride 1,000 ml @ 75 mls/hr [id number] IV 05/15/18 22:19 06/14/18 22:18 05/16/18 13:47 Diphenhydramine HCl (Benadryl) 25 mg Q6H PRN ORAL Itching/Pruritis 05/15/18 22:30 06/14/18 22:29 Lansoprazole (Prevacid) 30 mg DAILY@1800 GT 05/16/18 18:00 06/15/18 17:59 05/16/18 18:33 Morphine Sulfate (Morphine Sulfate) 2 mg EVERY 4 HOURS PRN IVP severe Pain (Pain Scale 7-10) 05/15/18 22:30 05/22/18 22:29 Nitroglycerin (Ntg) 0.4 mg Q5M X 3 DOSES PRN SL Prn Chest Pain 05/15/18 22:30 06/14/18 22:29 Ondansetron HCl (Zofran) 4 mg Q6H PRN IVP Nausea & Vomiting 05/15/18 22:30 06/14/18 22:29 Polyethylene Glycol (Miralax) 17 gm HSPRN PRN ORAL Constipation 05/15/18 22:30 06/14/18 22:29 Assessment/Plan Assessment/Plan Hematology Consultation REQ : Boris Arevalo DOS: 05/16/18 RFC: Anemia and leukocytosis ID [id number] old male presents to the emergency room with reports of coffee-ground emesis Patient does have a feeding tube in place, I have seen him on prior admissions Patient himself is chronically debilitated nonverbal History of present illness is significantly limited There was no reports of diarrhea Patient is responsive to some physical stimuli however significantly decreased GCS P/w gi bleed and heme consulted Coded Allergies: OXYTETRACYCLINE (Unverified Allergy, Unknown, 09/05/13) PENICILLINS (Unverified Allergy, Unknown, 06/11/17) Tolerated one dose of Cefepime 06/07/17 Tolerated Cefdinir 06/10/17 Uncoded Allergies: PLASTIC TAPE (Allergy, Mild, ITCHINESS, 08/08/15) MEDICAL TAPE (Allergy, Unknown, 12/10/16) Limited by: medical condition Past Medical History: see triage record Pertinent Family History: none Reviewed Nursing Documentation: PMH: Agreed; PSxH: Agreed Past Medical History: No History, Except For Hx COPD: Yes - vent dependent/respiratory failure Hx Diabetes: Yes Hx Cancer: No Hx Gastrointestinal Problems: Yes - ABD hernia Hx Cerebrovascular Accident: Yes Hx Transient Ischemic Attacks: Yes Hx Dementia: Yes Hx Parkinson's Disease: Yes Hx Seizures: No - Pressure ulcers right and left buttocks (2 on each side) Hx Memory Loss: Yes Hx Concentration Difficulty: Yes Hx Speech Problem: Yes Hx Dysphasia: Yes ROS All Other Systems: limited - Other than the ones mentioned in the history of present illness all others are reviewed however they do stay limited due to the patient's mental status PE Vital Signs Date Time Temp Pulse Resp B/P (MAP) Pulse Ox O2 Delivery O2 Flow Rate FiO2 05/15/18 17:35 103 15 118/76 100 Mechanical Ventilator 05/15/18 17:52 40 05/15/18 17:57 60.0 Sp02 EP Interpretation: reviewed General Appearance: no apparent distress Head: normocephalic, atraumatic Eyes: bilateral eye PERRL ENT: dry mucus membranes Neck: supple, other - Tracheostomy in place no crepitus Respiratory: no retraction, no accessory muscle use, crackles - Bilaterally Cardiovascular: regular rate, rhythm Gastrointestinal: non tender, soft Musculoskeletal: other - Patient chronically debilitated, Contracted in upper and lower extremity Neurologic: responsive Skin: other - Multiple skin breakdowns Lymphatic: no adenopathy Assessment and recs # Anemia likely due to gastrointestinal hemorrhage --> at this time the h/h is stable --> obtain anemia panel as needed --> low threshold for gi eval --> Dr. Rudd on board, currently patient in sdu # Leukocytosis is likely related to reactive process from aneia --> trend as needed currently impriving --> low threshold for starting abx # Probable HCAP vs Asp PNA - CXR: Patchy bibasilar airspace opacities, left greater than right, most concerning for infiltrate/pneumonia. --> in the past received abx, low threshold for id eval, abx # SOB - cultures currently ngtd # Elevated LFts ==> trend, as per gi # HARDEEP, resolved # Chronic resp failure on trach/vent # Dysphagia s/p GT # Recent Fungemia Shelli tropicalis 02/2017, S/p Rx # Hx of persistent low grade CONS bacteremia 01/2017- SP Rx for presumed endocarditis/endovascular source --> Bcx 01/21 04/26 CONS, 01/23 + 03/26, 01/26, +03/26 --> TTE very limited, no vegetations seen. HUONG could not be done last admission Labs Test 05/15/18 18:00 White Blood Count 12.5 K/UL (4.8-10.8) Red Blood Count 6.11 M/UL (4.70-6.10) Hemoglobin 17.4 G/DL (14.2-18.0) Hematocrit 53.2 % (42.0-52.0) Mean Corpuscular Volume 87 FL (80-99) Mean Corpuscular Hemoglobin 28.5 PG (27.0-31.0) Mean Corpuscular Hemoglobin Concent 32.7 G/DL (32.0-36.0) Red Cell Distribution Width 14.1 % (11.6-14.8) Platelet Count 259 K/UL (150-450) Mean Platelet Volume 11.2 FL (6.5-10.1) Neutrophils (%) (Auto) 64.9 % (45.0-75.0) Lymphocytes (%) (Auto) 21.4 % (20.0-45.0) Monocytes (%) (Auto) 5.2 % (1.0-10.0) Eosinophils (%) (Auto) 7.4 % (0.0-3.0) Basophils (%) (Auto) 1.1 % (0.0-2.0) Prothrombin Time 13.5 SEC (9.30-11.50) Prothromb Time International Ratio 1.3 (0.9-1.1) Activated Partial Thromboplast Time 38 SEC (23-33) Sodium Level 138 MMOL/L (136-145) Potassium Level 4.4 MMOL/L (3.5-5.1) Chloride Level 104 MMOL/L (98-107) Carbon Dioxide Level 27 MMOL/L (21-32) Anion Gap 7 mmol/L (5-15) Blood Urea Nitrogen 24 mg/dL (7-18) Creatinine 0.8 MG/DL (0.55-1.30) Estimat Glomerular Filtration Rate > 60 mL/min (>60) Glucose Level 109 MG/DL (74-106) Calcium Level 9.8 MG/DL (8.5-10.1) Total Bilirubin 0.6 MG/DL (0.2-1.0) Aspartate Amino Transf (AST/SGOT) 89 U/L (15-37) Alanine Aminotransferase (ALT/SGPT) 75 U/L (12-78) Alkaline Phosphatase 525 U/L (46-116) Total Creatine Kinase 174 U/L (26-308) Creatine Kinase MB 2.0 NG/ML (0.0-3.6) Creatine Kinase MB Relative Index 1.1 Troponin I 0.000 ng/mL (0.000-0.056) Total Protein 9.3 G/DL (6.4-8.2) Albumin 3.2 G/DL (3.4-5.0) Globulin 6.1 g/dL Albumin/Globulin Ratio 0.5 (1.0-2.7) Alexi Bazan MD May 16, 2018 18:36
--- NOTE | 2018-05-16 19:00 | NUR ---
NURSE NOTES: Noted 50 cc condom catheter output. GEOVNANA Tatum performed bladder scan and noted 533 cc of retained urine. Dr. Rudd notified. Awaiting call back. Will endorse to anglesmith helper RN. Pt stable. Bed in lowest position. Call light within reach.
--- NOTE | 2018-05-16 19:37 | NUR ---
HAND-OFF: Report given to Gertrudis Green. Pt in stable condition. No cardiopulmonary distress noted. Pt cleaned and repositioned. Oral care performed. Bed in lowest position. Call light within reach. Side rails up x 3.
--- NOTE | 2018-05-16 19:40 | NUR ---
NURSE NOTES: Received Pt is sleeping on the bed and obtunded. Trach to Vent dependent setting with AC: 14, T: 600, P; 5, FiO2: 35% with SaO2 99-100%. Given tracheal and oral suction. Provided oral care. On rectal tubed and dark greenish color liquid BM noted. Iv site intact and no sign of infiltration noted. On running with D5W1/2NS @ 75cc/hr. Pt has g-tube and keep NPO as ordered. On Tele monitor with SR. No sign of active bleeding. Dressing os clean and dry on wound area. Changed position. On condom cath and still no urination noted. Didn't call back from and awaiting call back. Placed fall precaution. Will continue to care plan.
[2018-05-16] MEDS ORDERED: Phytonadione 10 mg/mL 1ml amp SUBQ SCH (19:45)
[2018-05-16 20:00] VITALS: BP 100/77
[2018-05-16 20:19] LABS: % IRON SATURATION 22 % (15-50); IRON 51 ug/dL (50-175); TOTAL IRON BINDING CAPACITY 233 ug/dL (250-450)
[2018-05-16 20:32] LABS: FERRITIN 63 NG/ML (8-388)
--- NOTE | 2018-05-16 21:30 | NUR ---
NURSE NOTES: Pt is sleeping on the bed. Noted 350cc urine output via condom cath. No bladder distension noted. Get call back from Dr. Rudd and new order received. Will continue to monitor any change of condition.
[2018-05-17] VITALS: BP 116/82
[2018-05-17] MEDS: Albuterol/Ipratropium 3ml neb HHN SCH ×4 (00:15→23:17)
[2018-05-17] MEDS: D5 1/2NS 1,000 ML IV SCH ×2 (02:26→15:30)
[2018-05-17 04:00] VITALS: BP 114/84
--- NOTE | 2018-05-17 07:05 | NUR ---
HAND-OFF: Report given to GEOVANNA fuller. Pt is sleeping on the bed and no sign of acute distress noted.
--- NOTE | 2018-05-17 07:06 | NUR ---
NURSE NOTES: RECEIVE PATIENT FROM Go ABEBE RN. PATIENT IS LYING IN BED, ABLE TO OPEN EYES. HOOKED TO STATION SUPERINTENDENT. TRACH TO VENT. PORTEX 7. VENT SETTINGS AC 14, TV 600, FIO2 35%, PEEP 5. NO SIGNS OF DISTRESS. WITH G TUBE, DRY AND INTACT. STILL ON NPO. NOTED SKIN ALTERATION. WITH ORDER TO INSERT RAMOS BUT CHIEF YEOMAN NURSE COULDN'T INSERT ONE. STILL ON CONDOM CATH. ABLE TO URINATE. RECTAL TUBE NOTED. IV ON L FA G20, RUNNING IVF D5 1/2 NS AT 75CC/HR. CALL LIGHT WITHIN REACH. BED AT LOWEST POSITION. WILL CONTINUE TO MONITOR.
[2018-05-17 08:00] VITALS: BP 110/79
[2018-05-17 08:33] LABS: BASOPHILS % (AUTO) 0.9 % (0.0-2.0); EOSINOPHILS % (AUTO) 6.8 % (0.0-3.0); HEMATOCRIT 41.6 % (42.0-52.0); HEMOGLOBIN 13.5 G/DL (14.2-18.0); LYMPHOCYTES % (AUTO) 20.2 % (20.0-45.0); MEAN CORPUSCULAR VOLUME 87 FL (80-99); MONOCYTES % (AUTO) 4.7 % (1.0-10.0); NEUTROPHILS % (AUTO) 67.3 % (45.0-75.0); PLATELET COUNT 213 K/UL (150-450); RED BLOOD COUNT 4.81 M/UL (4.70-6.10); RED CELL DISTRIBUTION WIDTH 13.8 % (11.6-14.8); WHITE BLOOD COUNT 12.7 K/UL (4.8-10.8)
[2018-05-17 08:53] LABS: ALANINE AMINOTRANSFERASE 53 U/L (12-78); ALBUMIN 2.6 G/DL (3.4-5.0); ALBUMIN/GLOBULIN RATIO 0.5 (1.0-2.7); ALKALINE PHOSPHATASE 392 U/L (46-116); ANION GAP 11 mmol/L (5-15); ASPARTATE AMINO TRANSFERASE 59 U/L (15-37); BILIRUBIN,TOTAL 0.6 MG/DL (0.2-1.0); BLOOD UREA NITROGEN 16 mg/dL (7-18); CALCIUM 8.8 MG/DL (8.5-10.1); CARBON DIOXIDE 23 MMOL/L (21-32); CHLORIDE 106 MMOL/L (98-107); CREATININE 0.8 MG/DL (0.55-1.30); SODIUM 140 MMOL/L (136-145)
--- NOTE | 2018-05-17 11:15 | NUR ---
RD ASSESSMENT & RECOMMENDATIONS SEE CARE ACTIVITY FOR COMPLETE ASSESSMENT DAILY ESTIMATED NEEDS: Needs based on Critical care, wound 64.5kg 22-30 kcals/kg [id number] total kcals 1.25-2 g protein/kg 86-138 g total protein 25-30 mL/kg 0395-1857 total fluid mLs NUTRITION DIAGNOSIS: 1) Swallowing difficulty R/T respiratory status as evidenced by pt vent dep via trach, PEG dep, NPO at thsi time. 2) Increased kcal/prot needs R/T wound healing as evidenced by pt admitted w/ lt great toe and lt heel wounds per photo, pending eval. CURRENT TF:NPO ENTERAL NUTRITION RECOMMENDATIONS: Glucerna 1.2 @55ml x24 hrs + Prosource x1 to provide 1320ml, 1584kcal, 79g prot + 11g prot, 1063ml free H20 - When medically appropriate, initiate TF of Glucerna 1.2 @ 25ml/hr x 6 hrs. - Advance 10ml q 4-6 hrs as tolerated to goal rate. - Ad Prosource 1 pack daily to meet est prot needs - HOB >30 degrees/ water flushes per MD ADDITIONAL RECOMMENDATIONS: 1) Per SNF: ht=65", hk=771krm (wt obtained on 04/27/18) -> Txr pt w/ bed w/ BEDSCALE, obtain calibrated bedscale wt 2) Wound healing: Darryl 1pkt BID, f/up w/ wound eval 3) Monitor lytes, replete as needed 4) Monitor BGs, need for accucheck s/ SSI- h/o DM
--- NOTE | 2018-05-17 11:24 | Pulmonolgy Critical Care Note ---
Critical Care - Asmt/Plan Problems: (1) Gastrointestinal hemorrhage (2) Sepsis (3) Chronic respiratory failure (4) Feeding by G-tube (5) History of CVA (cerebrovascular accident) Respiratory: monitor respiratory rate, adjust FIO2, CXR Cardiac: continue to monitor HR/BP Renal: F/U I&O, keep IV fluid Infectious Disease: check cultures, continue antibiotics Gastrointestinal: hold feedings Endocrine: monitor blood sugar Hematologic: monitor H/H Affect: PRN ativan Prophylaxis: Heparin Time Spent (Minutes): 40 Notes Reviewed: cardio, renal Discussed with: nurses, consultants, immigration case workermanager personnel selection - Objective Last 24 Hour Vital Signs Date Time Temp Pulse Resp B/P (MAP) Pulse Ox O2 Delivery O2 Flow Rate FiO2 05/17/18 11:14 92 14 35 05/17/18 09:20 107 16 35 05/17/18 08:00 99.5 102 15 110/79 (89) 99 05/17/18 08:00 35 05/17/18 08:00 Mechanical Ventilator 05/17/18 07:13 94 16 100 Mechanical Ventilator 35 05/17/18 07:10 96 16 35 05/17/18 07:08 96 16 97 Mechanical Ventilator 35 05/17/18 05:30 98 15 35 05/17/18 04:00 35 05/17/18 04:00 98.2 95 14 114/84 (94) 98 05/17/18 04:00 93 05/17/18 04:00 Mechanical Ventilator 05/17/18 03:30 82 16 35 05/17/18 01:29 86 15 35 05/17/18 00:00 83 05/17/18 00:00 97.9 84 14 116/82 (93) 99 05/17/18 00:00 35 05/17/18 00:00 Mechanical Ventilator 05/16/18 23:40 90 16 100 Mechanical Ventilator 35 05/16/18 23:30 88 16 99 Mechanical Ventilator 35 05/16/18 23:18 88 16 35 05/16/18 21:27 84 14 35 05/16/18 20:00 97.9 86 14 100/77 (85) 99 05/16/18 20:00 84 05/16/18 20:00 35 05/16/18 20:00 Mechanical Ventilator 05/16/18 19:30 85 14 35 05/16/18 16:55 83 14 35 05/16/18 16:00 35 05/16/18 16:00 98.1 14 111/69 (83) 99 05/16/18 16:00 Mechanical Ventilator 35.0 05/16/18 16:00 87 05/16/18 15:11 35 05/16/18 15:11 81 14 81 Mechanical Ventilator 35 05/16/18 15:10 81 15 35 05/16/18 13:16 84 15 35 05/16/18 12:00 35 05/16/18 12:00 97.7 87 14 116/93 (101) 100 05/16/18 12:00 87 05/16/18 12:00 Mechanical Ventilator 35.0 Status: obtunded Condition: critical HEENT: atraumatic Lungs: chest wall tender Heart: HR/BP unstable Abdomen: soft, active bowel sounds Extremities: no C/C/E Micro: Microbiology Date/Time Source Procedure Growth Status 05/16/18 16:00 Stool Clostridium difficile Toxin Assay - Final Complete 05/15/18 21:00 Rectum Received Critical Care - Subjective ROS Limited/Unobtainable: Yes Condition: critical EKG Rhythm: Sinus Rhythm FI02: 35 Vent Support Breath Rate: 14 Vent Support Mode: AC Vent Tidal Volume: 600 Sputum Amount: Small PEEP: 5.0 PIP: 22 I&O: Intake and Output 05/16/18 05/17/18 19:00 07:00 Intake Total 1291.2 ml 867 ml Output Total 100 ml 750 ml Balance 1191.2 ml 117 ml Free Water 100 ml IV Total 1191.2 ml 867 ml Output Urine Total 600 ml Stool Total 100 ml 150 ml # Bowel Movements 3 2 CXR: lawrence Labs: Laboratory Tests Test 05/16/18 19:35 05/17/18 08:05 Iron Level 51 ug/dL (50-175) Total Iron Binding Capacity 233 ug/dL (250-450) L Percent Iron Saturation 22 % (15-50) Unsaturated Iron Binding 182 ug/dL (112-346) Ferritin 63 NG/ML (8-388) White Blood Count 12.7 K/UL (4.8-10.8) H Red Blood Count 4.81 M/UL (4.70-6.10) Hemoglobin 13.5 G/DL (14.2-18.0) L Hematocrit 41.6 % (42.0-52.0) L Mean Corpuscular Volume 87 FL (80-99) Mean Corpuscular Hemoglobin 28.1 PG (27.0-31.0) Mean Corpuscular Hemoglobin Concent 32.5 G/DL (32.0-36.0) Red Cell Distribution Width 13.8 % (11.6-14.8) Platelet Count 213 K/UL (150-450) Mean Platelet Volume 9.5 FL (6.5-10.1) Neutrophils (%) (Auto) 67.3 % (45.0-75.0) Lymphocytes (%) (Auto) 20.2 % (20.0-45.0) Monocytes (%) (Auto) 4.7 % (1.0-10.0) Eosinophils (%) (Auto) 6.8 % (0.0-3.0) H Basophils (%) (Auto) 0.9 % (0.0-2.0) Sodium Level 140 MMOL/L (136-145) Potassium Level 3.0 MMOL/L (3.5-5.1) L Chloride Level 106 MMOL/L (98-107) Carbon Dioxide Level 23 MMOL/L (21-32) Anion Gap 11 mmol/L (5-15) Blood Urea Nitrogen 16 mg/dL (7-18) Creatinine 0.8 MG/DL (0.55-1.30) Estimat Glomerular Filtration Rate > 60 mL/min (>60) Glucose Level 132 MG/DL (74-106) H Calcium Level 8.8 MG/DL (8.5-10.1) Total Bilirubin 0.6 MG/DL (0.2-1.0) Aspartate Amino Transf (AST/SGOT) 59 U/L (15-37) H Alanine Aminotransferase (ALT/SGPT) 53 U/L (12-78) Alkaline Phosphatase 392 U/L (46-116) H Total Protein 7.7 G/DL (6.4-8.2) Albumin 2.6 G/DL (3.4-5.0) L Globulin 5.1 g/dL Albumin/Globulin Ratio 0.5 (1.0-2.7) L Sagar Rudd MD May 17, 2018 11:24
[2018-05-17 12:00] VITALS: BP 109/76
--- NOTE | 2018-05-17 13:32 | Consultation ---
History of Present Illness General Date patient seen: May 17, 2018 Chief Complaint: Gastrointestinal Bleed Present Illness HPI 63 y/o M with hx of chronic resp failure trach/vent dependant, TIA, HCAP MDR PsA , dysphagia s/p PEG, aspiration PNA, gastritis/coffee ground emesis, C. tropicalis fungemia 01/2017 (PICC line infection vs GI translocation), persistent CONS bacteremia (s/p 6 weeks IV abx 01/2017), sacral decubitus, COPD , Dm2, Anxiety, anemia presents to ED on 05/15 with coffee-ground emesis No report of diarrhea Last admitted here last year (05/2017) for HCAP/asp PNA. Sp cx MDR PsA 06/11/17 Assessment: Probable HCAP vs Asp PNA- -CXR: Patchy bibasilar airspace opacities, left greater than right, most concerning for infiltrate/pneumonia. Component of atelectasis may also be likely.Clinical correlation and follow-up exam recommended. -sp cx MDR PsA (S amikacin, gentamicin), K.pna (S cipro, bactrim, Zosyn; R Ceftazidiem), Group G Strep -influenza sc neg SOB Fever/leukocytosis, resolved -Bcx NTD Elevated LFts HARDEEP, resolved Chronic resp failure on trach/vent Dysphagia s/p GT Recent Fungemia Shelli tropicalis 02/2017, S/p Rx repeat Bc: 03/01 : Neg Probable PICC( 01/22) infection removed on 03/02 Hx of persistent low grade CONS bacteremia 01/2017- SP Rx for presumed endocarditis/endovascular source -Bcx 01/21 2/4 CONS, 01/23 + 1/, 01/26, +03/26 -TTE very limited, no vegetations seen. HUONG could not be done Hx of Providencia UTI -s/p 14d Aztreonam repeat UCx 02/2017 : VRE and Provid. Hx of PNA - sp cx ACB Recent coffee ground emesis 02/2017 -EGD 01/2017: gastritis; on coumadin History of chronically elevated alkaline phosphatase CVA with anoxic brain injury Sacral decubitus. Ventilator-dependent respiratory failure. History of trach and PEG placement. COPD. Esophagitis, Hx EGD : . Minimum distal esophagitis. Gastritis, status post biopsy. 01/23 Diabetes. Anxiety. Anemia. Plan: -Continue PO Cefdinir abx d#5/10 for Group G strep -Switch Aztreonam #5/10 to PO Cipro for K.pna -Continue INH Tobramycin #2/10 for MDR PsA -06/10 SP IV Vancomycin #4 -06/09 SP Tamiflu #2 -06/08 SP Cefepime x1 -f/u cx -Monitor CBC/CMP, temperatures -PEG/Trach care -aspiration precautions Thank you for this consultation. Will continue to follow along with you. Discussed with RN and insurance case manager Allergies: Coded Allergies: OXYTETRACYCLINE (Unverified Allergy, Unknown, 09/05/13) PENICILLINS (Unverified Allergy, Unknown, 06/11/17) Tolerated one dose of Cefepime 06/07/17 Tolerated Cefdinir 06/10/17 Uncoded Allergies: PLASTIC TAPE (Allergy, Mild, ITCHINESS, 08/08/15) MEDICAL TAPE (Allergy, Unknown, 12/10/16) Medication History Scheduled Albuterol Sulfate* (Albuterol Sulfate Hhn*), 3 ML INH Q6H, (Reported) Amantadine Hcl* (Amantadine*), 100 MG GT DAILY, (Reported) Ascorbic Acid* (Vitamin C*), 500 MG ORAL DAILY, (Reported) Aspirin* (Aspir 81*), 81 MG GT DAILY, (Reported) Atorvastatin Calcium* (Atorvastatin Calcium*), 10 MG GT BEDTIME, (Reported) Bisacodyl* (Dulcolax*), 10 MG RECTAL ONCE, (Reported) Chlorhexidine Gluconate (Chlorhexidine Gluconate), 15 ML GT TWICE A DAY, ( Reported) Cholecalciferol (Vitamin D3)* (Vitamin D*), 5,000 UNIT GT DAILY, (Reported) Clonazepam* (Klonopin*), 0.5 MG GT DAILY, (Reported) Docusate Sodium* (Docusate Sodium*), 100 MG GT DAILY, (Reported) Folic Acid* (Folic Acid*), 1 MG GT DAILY, (Reported) Heparin Sod (Porcine) (Heparin Sodium*), 5,000 UNITS SUBQ EVERY 12 HOURS, ( Reported) Midodrine (Midodrine HCl), 10 MG GT Q8HR Multivitamin Liquid* (Multi-Delyn*), 5 ML GT DAILY, (Reported) Omeprazole (Omeprazole), 20 MG GT DAILY, (Reported) Polyethylene Glycol 3350* (Miralax*), 17 GM GT DAILY, (Reported) Potassium Chloride (Potassium Chloride), 40 MEQ GT DAILY, (Reported) Spironolact/Hydrochlorothiazid (Aldactazide 25-25 Tablet), 1 TAB GT DAILY, ( Reported) Warfarin Sod* (Coumadin*), 5 MG GT DAILY, (Reported) Zinc Sulfate (Zinc Sulfate*), 220 MG GT DAILY, (Reported) Scheduled PRN Acetaminophen (Acetaminophen), 650 MG ORAL Q4HR PRN for Prn Headache/Temp > 101, (Reported) Acetaminophen (Tylenol), 325 MG GT Q4HR PRN for fever, (Reported) Hydrocodone Bit/Acetaminophen 10-325* (Floyd 10-325*), 1 TAB GT Q12HR PRN for For Pain, (Reported) Hydrocodone/Acetaminophen (Hydrocodon-Acetaminophn 10-325), 1 TAB ORAL EVERY 12 HOURS PRN for For Pain, (Reported) Lorazepam* (Lorazepam*), 0.5 MG GT Q6HR PRN for For Anxiety, (Reported) Ondansetron (Zofran), 4 MG GT Q6H PRN for Nausea & Vomiting, (Reported) Miscellaneous Medications Ascorbate Calcium (Vitamin C), 500 MG GT, (Reported) Insulin Lispro (Humalog), 0 SUBQ, (Reported) Vit D3/Folic Acid/B2/B6/B12 (Folgard Tablet), 1 EACH GT, (Reported) Patient History Healthcare decision maker Resuscitation status Full Code Advanced Directive on File No Patient History Narrative Pmhx: as above Shx: reviewed Fhx: non contributory Review of Systems All Other Systems: negative except mentioned in HPI Physical Exam Physical Exam Narrative Status: obtunded Condition: critical HEENT: atraumatic Lungs: chest wall tender Heart: HR/BP unstable Abdomen: soft, active bowel sounds Extremities: no C/C/E Last 24 Hour Vital Signs Date Time Temp Pulse Resp B/P (MAP) Pulse Ox O2 Delivery O2 Flow Rate FiO2 05/17/18 12:41 93 14 35 05/17/18 12:00 Mechanical Ventilator 05/17/18 11:14 92 14 35 05/17/18 09:20 107 16 35 05/17/18 08:00 99.5 102 15 110/79 (89) 99 05/17/18 08:00 35 05/17/18 08:00 Mechanical Ventilator 05/17/18 07:13 94 16 100 Mechanical Ventilator 35 05/17/18 07:10 96 16 35 05/17/18 07:08 96 16 97 Mechanical Ventilator 35 05/17/18 05:30 98 15 35 05/17/18 04:00 35 05/17/18 04:00 98.2 95 14 114/84 (94) 98 05/17/18 04:00 93 05/17/18 04:00 Mechanical Ventilator 05/17/18 03:30 82 16 35 05/17/18 01:29 86 15 35 05/17/18 00:00 83 05/17/18 00:00 97.9 84 14 116/82 (93) 99 05/17/18 00:00 35 05/17/18 00:00 Mechanical Ventilator 05/16/18 23:40 90 16 100 Mechanical Ventilator 35 05/16/18 23:30 88 16 99 Mechanical Ventilator 35 05/16/18 23:18 88 16 35 05/16/18 21:27 84 14 35 05/16/18 20:00 97.9 86 14 100/77 (85) 99 05/16/18 20:00 84 05/16/18 20:00 35 05/16/18 20:00 Mechanical Ventilator 05/16/18 19:30 85 14 35 05/16/18 16:55 83 14 35 05/16/18 16:00 35 05/16/18 16:00 98.1 14 111/69 (83) 99 05/16/18 16:00 Mechanical Ventilator 35.0 05/16/18 16:00 87 05/16/18 15:11 35 05/16/18 15:11 81 14 81 Mechanical Ventilator 35 05/16/18 15:10 81 15 35 05/16/18 13:16 84 15 35 Intake and Output 05/16/18 05/17/18 19:00 07:00 Intake Total 1291.2 ml 867 ml Output Total 100 ml 750 ml Balance 1191.2 ml 117 ml Free Water 100 ml IV Total 1191.2 ml 867 ml Output Urine Total 600 ml Stool Total 100 ml 150 ml # Bowel Movements 3 2 Laboratory Tests Test 05/16/18 19:35 05/17/18 08:05 Iron Level 51 ug/dL (50-175) Total Iron Binding Capacity 233 ug/dL (250-450) L Percent Iron Saturation 22 % (15-50) Unsaturated Iron Binding 182 ug/dL (112-346) Ferritin 63 NG/ML (8-388) White Blood Count 12.7 K/UL (4.8-10.8) H Red Blood Count 4.81 M/UL (4.70-6.10) Hemoglobin 13.5 G/DL (14.2-18.0) L Hematocrit 41.6 % (42.0-52.0) L Mean Corpuscular Volume 87 FL (80-99) Mean Corpuscular Hemoglobin 28.1 PG (27.0-31.0) Mean Corpuscular Hemoglobin Concent 32.5 G/DL (32.0-36.0) Red Cell Distribution Width 13.8 % (11.6-14.8) Platelet Count 213 K/UL (150-450) Mean Platelet Volume 9.5 FL (6.5-10.1) Neutrophils (%) (Auto) 67.3 % (45.0-75.0) Lymphocytes (%) (Auto) 20.2 % (20.0-45.0) Monocytes (%) (Auto) 4.7 % (1.0-10.0) Eosinophils (%) (Auto) 6.8 % (0.0-3.0) H Basophils (%) (Auto) 0.9 % (0.0-2.0) Sodium Level 140 MMOL/L (136-145) Potassium Level 3.0 MMOL/L (3.5-5.1) L Chloride Level 106 MMOL/L (98-107) Carbon Dioxide Level 23 MMOL/L (21-32) Anion Gap 11 mmol/L (5-15) Blood Urea Nitrogen 16 mg/dL (7-18) Creatinine 0.8 MG/DL (0.55-1.30) Estimat Glomerular Filtration Rate > 60 mL/min (>60) Glucose Level 132 MG/DL (74-106) H Calcium Level 8.8 MG/DL (8.5-10.1) Total Bilirubin 0.6 MG/DL (0.2-1.0) Aspartate Amino Transf (AST/SGOT) 59 U/L (15-37) H Alanine Aminotransferase (ALT/SGPT) 53 U/L (12-78) Alkaline Phosphatase 392 U/L (46-116) H Total Protein 7.7 G/DL (6.4-8.2) Albumin 2.6 G/DL (3.4-5.0) L Globulin 5.1 g/dL Albumin/Globulin Ratio 0.5 (1.0-2.7) L Microbiology Date/Time Source Procedure Growth Status 05/16/18 16:00 Stool Clostridium difficile Toxin Assay - Final Complete Height (Feet): 5 Height (Inches): 8.00 Weight (Pounds): 130 Medications Current Medications Medications (Trade) Dose Ordered Sig/Sima Route PRN Reason Start Time Stop Time Status Last Admin Dose Admin Acetaminophen (Tylenol) 650 mg Q4H PRN ORAL fever 05/15/18 22:30 06/14/18 22:29 Acetaminophen/ Hydrocodone Bitart (Floyd 10/325) 1 tab Q12HR PRN GT For Pain 05/15/18 22:30 05/22/18 22:29 Al Hydroxide/Mg Hydroxide (Mylanta II) 30 ml Q6H PRN ORAL dyspepsia 05/15/18 22:30 06/14/18 22:29 Albuterol/ Ipratropium (Albuterol/ Ipratropium) 3 ml Q8HRT HHN 05/16/18 07:00 05/21/18 06:59 05/17/18 07:08 Atorvastatin Calcium (Lipitor) 10 mg BEDTIME GT 05/16/18 21:00 06/15/18 20:59 05/16/18 20:46 Dextrose (Dextrose 50%) STAT PRN IV Hypoglycemia 05/15/18 22:30 06/14/18 22:29 Dextrose/Sodium Chloride 1,000 ml @ 75 mls/hr [id number] IV 05/15/18 22:19 06/14/18 22:18 05/17/18 02:26 Diphenhydramine HCl (Benadryl) 25 mg Q6H PRN ORAL Itching/Pruritis 05/15/18 22:30 06/14/18 22:29 Lansoprazole (Prevacid) 30 mg DAILY@1800 GT 05/16/18 18:00 06/15/18 17:59 05/16/18 18:33 Morphine Sulfate (Morphine Sulfate) 2 mg EVERY 4 HOURS PRN IVP severe Pain (Pain Scale 7-10) 05/15/18 22:30 05/22/18 22:29 Nitroglycerin (Ntg) 0.4 mg Q5M X 3 DOSES PRN SL Prn Chest Pain 05/15/18 22:30 06/14/18 22:29 Ondansetron HCl (Zofran) 4 mg Q6H PRN IVP Nausea & Vomiting 05/15/18 22:30 06/14/18 22:29 Polyethylene Glycol (Miralax) 17 gm HSPRN PRN ORAL Constipation 05/15/18 22:30 06/14/18 22:29 Assessment/Plan Assessment/Plan Abx: None Assessment: Recurrent coffee ground emesis -hx on 02/2017 -EGD 01/2017: gastritis; on coumadin Mild Leukocytosis- suspect reactive to above Afebrile r/o probable pNA -CXR: Bibasilar opacities. Findings may be inflammatory or infectious. hx Fungemia Shelli tropicalis 02/2017, S/p Rx repeat Bc: 03/01 : Neg Probable PICC( 01/22) infection removed on 03/02 Hx of HCAP -hx of MDR PsA (05/2017) - sp cx ACB Hx of UTI 02/2017 -ucx Providencia, VRE Hx of persistent low grade CONS bacteremia 01/2017- SP Rx for presumed endocarditis/endovascular source -Bcx 01/21 2/4 CONS, 01/23 + /, 01/26, +1/4 -TTE very limited, no vegetations seen. HUONG could not be done History of chronically elevated alkaline phosphatase CVA with anoxic brain injury Sacral decubitus. Ventilator-dependent respiratory failure. History of trach and PEG placement. COPD. Esophagitis, Hx EGD : . Minimum distal esophagitis. Gastritis, status post biopsy. 01/23 Diabetes. Anxiety. Anemia. Plan: -Continue to monitor off abx unless febrile, rising WBC, an/d or worsening rep status -f/u cx -Monitor CBC/CMP, temperatures Thank you for this consultation. Will continue to follow along with you. Discussed with Nanci Singh M.D. May 17, 2018 13:32
--- NOTE | 2018-05-17 14:04 | GI Initial Consult Note ---
History of Present Illness General Date patient seen: May 17, 2018 Time patient seen: 14:29 Reason for Hospitalization: Gastrointestinal Bleed Referring physician: ALBANIA MARTEL Reason for Consultation: GI BLEED Present Illness HPI Patient presents to the emergency room with reports of coffee-ground emesis Patient does have a feeding tube in place Patient himself is chronically debilitated nonverbal History of present illness is significantly limited There was no reports of diarrhea Patient is responsive to some physical stimuli however significantly decreased GCS GI consulted for reported coffee-ground emesis. ROS limited, patient nonverbal with tracheostomy. Patient is G-tube dependent.Patient has a history of endoscopic procedure back in January 2017, noted with gastritis. Labs reviewed ; presents today with a normocytic anemia, Mild leukocytosis and elevated AST and elevated alkaline phosphatase levels. Home Meds Active Scripts Midodrine (Midodrine HCl) 10 Mg Tablet, 10 MG GT Q8HR, #30 TAB Prov:Taylor Bernard [employer] 03/09/17 Reported Medications Ondansetron (Zofran) 4 Mg Tablet, 4 MG GT Q6H PRN for Nausea & Vomiting, TAB 05/15/18 Vit D3/Folic Acid/B2/B6/B12 (FOLGARD TABLET) 1 Each Tablet, 1 EACH GT, TAB 05/15/18 Ascorbate Calcium (VITAMIN C) 500 Mg Tablet, 500 MG GT, TAB 05/15/18 Acetaminophen (Tylenol) 325 Mg Tablet, 325 MG GT Q4HR PRN for fever, #30 TAB 0 Refills 05/15/18 Spironolact/Hydrochlorothiazid (ALDACTAZIDE 25-25 TABLET) 1 Each Tablet, 1 TAB GT DAILY for hypokalemia, TAB 05/15/18 Hydrocodone Bit/Acetaminophen 10-325* (NORCO 10-325*) 1 Each Tablet, 1 TAB GT Q12HR PRN for For Pain, TAB 0 Refills PRN PAIN 05/15/18 Clonazepam* (KLONOPIN*) 0.5 Mg Tablet, 0.5 MG GT DAILY, #15 TAB 0 Refills 05/15/18 Atorvastatin Calcium* (ATORVASTATIN CALCIUM*) 20 Mg Tablet, 10 MG GT BEDTIME, TAB 05/15/18 Warfarin Sod* (COUMADIN*) 5 Mg Tablet, 5 MG GT DAILY, TAB 01/21/17 Docusate Sodium* (DOCUSATE SODIUM*) 100 Mg Capsule, 100 MG GT DAILY, CAP 01/21/17 Heparin Sod (Porcine) (HEPARIN SODIUM*) 5 000/1 Ml Vial, 5000 UNITS SUBQ EVERY 12 HOURS, VIAL 10/05/16 Potassium Chloride (Potassium Chloride) 20 Meq/15 Ml Liquid, 40 MEQ GT DAILY, ML 07/30/16 Lorazepam* (LORAZEPAM*) 2 Mg Tablet, 0.5 MG GT Q6HR PRN for For Anxiety, TAB 07/30/16 Aspirin* (ASPIR 81*) 81 Mg Tablet.dr, 81 MG GT DAILY, TAB 10/27/15 Bisacodyl* (DULCOLAX*) 5 Mg Tablet.dr, 10 MG RECTAL ONCE, #4 TAB 0 Refills 09/06/15 Hydrocodone/Acetaminophen (Hydrocodon-Acetaminophn 10-325) 1 Ea Tab, 1 TAB ORAL EVERY 12 HOURS PRN for For Pain, #30 TAB 0 Refills 08/07/15 Multivitamin Liquid* (MULTI-DELYN*) 237 Ml Liquid, 5 ML GT DAILY, ML 08/07/15 Chlorhexidine Gluconate (Chlorhexidine Gluconate) 16 Oz Soln, 15 ML GT TWICE A DAY, ML 08/07/15 Insulin Lispro (HUMALOG) 100 Unit/1 Ml Cartridge, 0 SUBQ, #1 UNITS 0 Refills 08/25/14 Ascorbic Acid* (VITAMIN C*) 500 Mg Tablet, 500 MG ORAL DAILY, #30 TAB 0 Refills 08/25/14 Cholecalciferol (Vitamin D3)* (VITAMIN D*) 1,000 Unit Tablet, 5000 UNIT GT DAILY , #30 TAB 08/25/14 Acetaminophen (Acetaminophen) 650 Mg/20.3 Ml Soln, 650 MG ORAL Q4HR PRN for Prn Headache/Temp > 101, ML 0 Refills 08/25/14 Polyethylene Glycol 3350* (MIRALAX*) 17 Gm Powd.pack, 17 GM GT DAILY, PACKET 08/25/14 Amantadine Hcl* (AMANTADINE*) 100 Mg Tablet, 100 MG GT DAILY, TAB 08/25/14 Albuterol Sulfate* (ALBUTEROL SULFATE HHN*) 2.5 Mg/3 Ml Vial.neb, 3 ML INH Q6H for Shortness of Breath, #30 EA 0 Refills 08/25/14 Omeprazole (OMEPRAZOLE) 20 Mg Tablet.dr, 20 MG GT DAILY, TAB 04/21/14 Folic Acid* (FOLIC ACID*) 1 Mg Tablet, 1 MG GT DAILY, TAB 09/05/13 Zinc Sulfate (ZINC SULFATE*) 220 Mg Capsule, 220 MG GT DAILY, CAP 0 Refills 09/05/13 Med list reviewed/reconciled: Yes Allergies: Coded Allergies: OXYTETRACYCLINE (Unverified Allergy, Unknown, 09/05/13) PENICILLINS (Unverified Allergy, Unknown, 06/11/17) Tolerated one dose of Cefepime 06/07/17 Tolerated Cefdinir 06/10/17 Uncoded Allergies: PLASTIC TAPE (Allergy, Mild, ITCHINESS, 08/08/15) MEDICAL TAPE (Allergy, Unknown, 12/10/16) Patient History Limited by: medical condition History Provided By: Medical Record PMH Narrative Allergies: Coded Allergies: Limited by: medical condition Past Medical History: see triage record Pertinent Family History: none Reviewed Nursing Documentation: PMH: Agreed; PSxH: Agreed Nursing Documentation-PMH Past Medical History: No History, Except For Hx COPD: Yes - vent dependent/respiratory failure Hx Diabetes: Yes Hx Cancer: No Hx Gastrointestinal Problems: Yes - ABD hernia Hx Cerebrovascular Accident: Yes Hx Transient Ischemic Attacks: Yes Hx Dementia: Yes Hx Parkinson's Disease: Yes Hx Seizures: No - Pressure ulcers right and left buttocks (2 on each side) Hx Memory Loss: Yes Hx Concentration Difficulty: Yes Hx Speech Problem: Yes Hx Dysphasia: Yes Review of Systems All Other Systems: limited Physical Exam Vital Signs Date Time Temp Pulse Resp B/P (MAP) Pulse Ox O2 Delivery O2 Flow Rate FiO2 05/15/18 17:35 103 15 118/76 100 Mechanical Ventilator 05/15/18 17:50 97.0 05/15/18 17:52 40 05/15/18 17:57 60.0 Sp02 EP Interpretation: reviewed, normal Labs Laboratory Tests Test 05/16/18 19:35 05/17/18 08:05 Iron Level 51 ug/dL (50-175) Total Iron Binding Capacity 233 ug/dL (250-450) L Percent Iron Saturation 22 % (15-50) Unsaturated Iron Binding 182 ug/dL (112-346) Ferritin 63 NG/ML (8-388) White Blood Count 12.7 K/UL (4.8-10.8) H Red Blood Count 4.81 M/UL (4.70-6.10) Hemoglobin 13.5 G/DL (14.2-18.0) L Hematocrit 41.6 % (42.0-52.0) L Mean Corpuscular Volume 87 FL (80-99) Mean Corpuscular Hemoglobin 28.1 PG (27.0-31.0) Mean Corpuscular Hemoglobin Concent 32.5 G/DL (32.0-36.0) Red Cell Distribution Width 13.8 % (11.6-14.8) Platelet Count 213 K/UL (150-450) Mean Platelet Volume 9.5 FL (6.5-10.1) Neutrophils (%) (Auto) 67.3 % (45.0-75.0) Lymphocytes (%) (Auto) 20.2 % (20.0-45.0) Monocytes (%) (Auto) 4.7 % (1.0-10.0) Eosinophils (%) (Auto) 6.8 % (0.0-3.0) H Basophils (%) (Auto) 0.9 % (0.0-2.0) Sodium Level 140 MMOL/L (136-145) Potassium Level 3.0 MMOL/L (3.5-5.1) L Chloride Level 106 MMOL/L (98-107) Carbon Dioxide Level 23 MMOL/L (21-32) Anion Gap 11 mmol/L (5-15) Blood Urea Nitrogen 16 mg/dL (7-18) Creatinine 0.8 MG/DL (0.55-1.30) Estimat Glomerular Filtration Rate > 60 mL/min (>60) Glucose Level 132 MG/DL (74-106) H Calcium Level 8.8 MG/DL (8.5-10.1) Total Bilirubin 0.6 MG/DL (0.2-1.0) Aspartate Amino Transf (AST/SGOT) 59 U/L (15-37) H Alanine Aminotransferase (ALT/SGPT) 53 U/L (12-78) Alkaline Phosphatase 392 U/L (46-116) H Total Protein 7.7 G/DL (6.4-8.2) Albumin 2.6 G/DL (3.4-5.0) L Globulin 5.1 g/dL Albumin/Globulin Ratio 0.5 (1.0-2.7) L General Appearance: well appearing, no apparent distress, alert Head: normocephalic EENT: PERRL/EOMI, normal ENT inspection Neck: supple Respiratory: normal breath sounds, no respiratory distress, other - Mechanical ventilator Cardiovascular: normal rate Gastrointestinal: normal inspection, non tender, soft, normal bowel sounds, non -distended, gt Rectal: deferred Genitourinary: deferred Musculoskeletal: normal inspection, back normal Neurologic: normal inspection, alert, oriented x3, responsive Skin: normal inspection, normal color, no rash, warm/dry, palpation normal, well hydrated Lymphatic: normal inspection, no adenopathy Current Medications Current Medications Medications (Trade) Dose Ordered Sig/Sima Route PRN Reason Start Time Stop Time Status Last Admin Dose Admin Acetaminophen (Tylenol) 650 mg Q4H PRN ORAL fever 05/15/18 22:30 06/14/18 22:29 Acetaminophen/ Hydrocodone Bitart ([employer] 10/325) 1 tab Q12HR PRN GT For Pain 05/15/18 22:30 05/22/18 22:29 Al Hydroxide/Mg Hydroxide (Mylanta II) 30 ml Q6H PRN ORAL dyspepsia 05/15/18 22:30 06/14/18 22:29 Albuterol/ Ipratropium (Albuterol/ Ipratropium) 3 ml Q8HRT HHN 05/16/18 07:00 05/21/18 06:59 05/17/18 07:08 Atorvastatin Calcium (Lipitor) 10 mg BEDTIME GT 05/16/18 21:00 06/15/18 20:59 05/16/18 20:46 Dextrose (Dextrose 50%) STAT PRN IV Hypoglycemia 05/15/18 22:30 06/14/18 22:29 Dextrose/Sodium Chloride 1,000 ml @ 75 mls/hr [id number] IV 05/15/18 22:19 06/14/18 22:18 05/17/18 02:26 Diphenhydramine HCl (Benadryl) 25 mg Q6H PRN ORAL Itching/Pruritis 05/15/18 22:30 06/14/18 22:29 Lansoprazole (Prevacid) 30 mg DAILY@1800 GT 05/16/18 18:00 06/15/18 17:59 05/16/18 18:33 Morphine Sulfate (Morphine Sulfate) 2 mg EVERY 4 HOURS PRN IVP severe Pain (Pain Scale 7-10) 05/15/18 22:30 05/22/18 22:29 Nitroglycerin (Ntg) 0.4 mg Q5M X 3 DOSES PRN SL Prn Chest Pain 05/15/18 22:30 06/14/18 22:29 Ondansetron HCl (Zofran) 4 mg Q6H PRN IVP Nausea & Vomiting 05/15/18 22:30 06/14/18 22:29 Polyethylene Glycol (Miralax) 17 gm HSPRN PRN ORAL Constipation 05/15/18 22:30 06/14/18 22:29 GI: Plan Problems: (1) Coffee ground emesis (2) Upper GI bleed (3) Gastrointestinal hemorrhage (4) Tracheostomy in place (5) Feeding by G-tube (6) Malfunction of gastrostomy tube Plan EGD scheduled for Thursday. Maintain n.p.o. with IV fluids 500 cc gastric lavage anemia work up OB stool r/o GI bleed monitor H&H, prn transfusions bowel regime ppi BID fu labs, trend LFTs We will follow with additional recommendations postprocedure Discussed with Dr. Rosas. Thank you for this patient referral, we will follow. The patient was seen and examined at bedside and all new and available data was reviewed in the patients chart. I agree with the above findings, impression and plan. (Patient seen earlier today. Signature stamp does not reflect patient encounter time.). - MD Radha Stevens,[facility] [employer] May 17, 2018 14:04
[2018-05-17 16:00] VITALS: BP 96/73
--- NOTE | 2018-05-17 16:03 | NUR ---
NURSE NOTES:WOUND CARE NOTES:Pt presented on admission with multiple pressure injuries. Partial thickness wound noted to medial /dorsal L foot (L)3.7cm x (W)2.6cm. Base of wound moist -viable, edges adherent(+) maceration .No odor or exudate noted .Periwound skin is dry and intact. Blood filled blister noted to L 1st metatarsal .(L)1.8cm x (W)1.6cm. Non-blanchable erythema noted to sacrococcygeal area. Periwound skin is intact and dry .(L)2cm x (W)3cm. Non-blanchable erythema noted to lumbar area. Periwound without induration or elevation in skin temp. Recommendations: Apply Moisture Barrier to Sacrum .Cover with Optifoam drsg .Change every 3 days and prn. Apply Cavilon Skin Barrier to Lumabr area .Cover with Optifoam drsg .Change every 7 days and prn. Please follow-up with Podiatry for wound care orders for feet. KARLEE/RENETTA telles. Addendum: 05/17/18 at 1613 by Ian Koehler LVN Recommendations:Reposition at least every 2hours or as tolerated. Off-load heels with pillow.
--- NOTE | 2018-05-17 18:58 | NUR ---
NURSE NOTES: CONSENT TAKEN FROM THE FOR PROCEDURE. GASTRIC LAVAGE DONE. NOTED CLEAR OUTPUT. CALLED AND SPOKE WITH MAGGIE OF THE OUTPUT. ORDER MADE. NO SIGNS OF DISTRESS. WILL CONTINUE TO MONITOR.
--- NOTE | 2018-05-17 19:17 | NUR ---
HAND-OFF: Report given to Go [employer] RN.
--- NOTE | 2018-05-17 19:30 | NUR ---
NURSE NOTES: Received Pt is sleeping on the bed and obtunded. Trach to Vent dependent setting with AC: 14, T: 600, P; 5, FiO2: 35% with SaO2 99-100%. Given tracheal and oral suction. Provided oral care. On rectal tubed and dark greenish color liquid BM noted. pervious nurse given Imodium. IV site intact and no sign of infiltration noted. On running with D5W1/2NS @ 75cc/hr. Pt has g-tube and keep NPO as ordered. Tomorrow scheduled EGD. On Tele monitor with SR. No sign of active bleeding. Dressing is clean and dry on wound area. Changed position. On condom cath and urinated well. Changed position. Placed fall precaution. Will continue to care plan.
--- NOTE | 2018-05-17 19:34 | NUR ---
CASE MANAGEMENT: REVIEW SI: GI BLEED . T 99.5 HR 107 RR 14 BP 96/73 SAT 100% MECH VENT FIO2 35 WBC 12.7 K 3.0 AST 59 IS: K-DUR PO QD D5 1/2 IVF @75ML/HR LIPITOR GT QHS STEP DOWN STATUS DCP: PATIENT IS FROM [facility] PLAN: EGD SCHEDULED FOR THURSDAY
--- NOTE | 2018-05-17 19:39 | History & Physical ---
History and Physical History & Physicial Dictated for Int Med-Dr oliveira no. [id number] Samuel Caballero MD May 17, 2018 19:39
[2018-05-17 20:00] VITALS: BP 116/76
--- NOTE | 2018-05-17 23:12 | General Progress Note ---
Assessment/Plan Assessment/Plan Assessment and recs # Anemia likely due to gastrointestinal hemorrhage --> at this time the h/h is stable --> obtain anemia panel as needed --> low threshold for gi eval --> Dr. Rudd on board, currently patient in sdu # Leukocytosis is likely related to reactive process from aneia --> trend as needed currently impriving --> low threshold for starting abx # Probable HCAP vs Asp PNA - CXR: Patchy bibasilar airspace opacities, left greater than right, most concerning for infiltrate/pneumonia. --> in the past received abx, low threshold for id eval, abx # SOB - cultures currently ngtd # Elevated LFts ==> trend, as per gi # HARDEEP, resolved # Chronic resp failure on trach/vent # Dysphagia s/p GT # Recent Fungemia Shelli tropicalis 02/2017, S/p Rx # Hx of persistent low grade CONS bacteremia 01/2017- SP Rx for presumed endocarditis/endovascular source --> Bcx 01/21 04/26 CONS, 01/23 + 03/26, 01/26, +03/26 --> TTE very limited, no vegetations seen. HUONG could not be done last admission Subjective ROS Limited/Unobtainable: Yes Allergies: Coded Allergies: OXYTETRACYCLINE (Unverified Allergy, Unknown, 09/05/13) PENICILLINS (Unverified Allergy, Unknown, 06/11/17) Tolerated one dose of Cefepime 06/07/17 Tolerated Cefdinir 06/10/17 Uncoded Allergies: PLASTIC TAPE (Allergy, Mild, ITCHINESS, 08/08/15) MEDICAL TAPE (Allergy, Unknown, 12/10/16) Subjective 05/17: seen by bedside, Trach to Vent dependent, on g-tube, scheduled EGD tomorrow,no events, cbc reviewed. Objective Last 24 Hour Vital Signs Date Time Temp Pulse Resp B/P (MAP) Pulse Ox O2 Delivery O2 Flow Rate FiO2 05/17/18 20:47 77 14 35 05/17/18 20:00 Mechanical Ventilator 05/17/18 20:00 77 05/17/18 20:00 35 05/17/18 20:00 98.2 76 14 116/76 (89) 100 05/17/18 19:17 78 14 35 05/17/18 16:45 84 18 35 05/17/18 16:00 35 05/17/18 16:00 78 05/17/18 16:00 Mechanical Ventilator 05/17/18 16:00 98.6 78 14 96/73 (81) 100 05/17/18 15:29 90 14 100 Mechanical Ventilator 35 05/17/18 15:20 81 14 35 05/17/18 15:20 82 14 98 Mechanical Ventilator 35 05/17/18 12:41 93 14 35 05/17/18 12:00 35 05/17/18 12:00 Mechanical Ventilator 05/17/18 12:00 98.7 102 15 109/76 (87) 99 05/17/18 12:00 92 05/17/18 11:14 92 14 35 05/17/18 09:20 107 16 35 05/17/18 08:00 101 05/17/18 08:00 99.5 102 15 110/79 (89) 99 05/17/18 08:00 35 05/17/18 08:00 Mechanical Ventilator 05/17/18 07:13 94 16 100 Mechanical Ventilator 35 05/17/18 07:10 96 16 35 05/17/18 07:08 96 16 97 Mechanical Ventilator 35 05/17/18 05:30 98 15 35 05/17/18 04:00 35 05/17/18 04:00 98.2 95 14 114/84 (94) 98 05/17/18 04:00 93 05/17/18 04:00 Mechanical Ventilator 05/17/18 03:30 82 16 35 05/17/18 01:29 86 15 35 05/17/18 00:00 83 05/17/18 00:00 97.9 84 14 116/82 (93) 99 05/17/18 00:00 35 05/17/18 00:00 Mechanical Ventilator 05/16/18 23:40 90 16 100 Mechanical Ventilator 35 05/16/18 23:30 88 16 99 Mechanical Ventilator 35 05/16/18 23:18 88 16 35 Intake and Output 05/16/18 05/17/18 19:00 07:00 Intake Total 1291.2 ml 867 ml Output Total 100 ml 750 ml Balance 1191.2 ml 117 ml Free Water 100 ml IV Total 1191.2 ml 867 ml Output Urine Total 600 ml Stool Total 100 ml 150 ml # Bowel Movements 3 2 Laboratory Tests 05/17/18 08:05: White Blood Count 12.7H, Red Blood Count 4.81, Hemoglobin 13.5L, Hematocrit 41.6L, Mean Corpuscular Volume 87, Mean Corpuscular Hemoglobin 28.1, Mean Corpuscular Hemoglobin Concent 32.5, Red Cell Distribution Width 13.8, Platelet Count 213, Mean Platelet Volume 9.5, Neutrophils (%) (Auto) 67.3, Lymphocytes (% ) (Auto) 20.2, Monocytes (%) (Auto) 4.7, Eosinophils (%) (Auto) 6.8H, Basophils (%) (Auto) 0.9, Sodium Level 140, Potassium Level 3.0L, Chloride Level 106, Carbon Dioxide Level 23, Anion Gap 11, Blood Urea Nitrogen 16, Creatinine 0.8, Estimat Glomerular Filtration Rate > 60, Glucose Level 132H, Calcium Level 8.8, Total Bilirubin 0.6, Aspartate Amino Transf (AST/SGOT) 59H, Alanine Aminotransferase (ALT/SGPT) 53, Alkaline Phosphatase 392H, Total Protein 7.7, Albumin 2.6L, Globulin 5.1, Albumin/Globulin Ratio 0.5L Height (Feet): 5 Height (Inches): 8.00 Weight (Pounds): 130 Objective Sp02 EP Interpretation: reviewed General Appearance: no apparent distress Head: normocephalic, atraumatic Eyes: bilateral eye PERRL ENT: dry mucus membranes Neck: supple, other - Tracheostomy in place no crepitus Respiratory: no retraction, no accessory muscle use, crackles - Bilaterally Cardiovascular: regular rate, rhythm Gastrointestinal: non tender, soft Musculoskeletal: other - Patient chronically debilitated, Contracted in upper and lower extremity Neurologic: responsive Alexi Bazan MD May 17, 2018 23:12
[2018-05-18] VITALS: BP 127/87
[2018-05-18 04:00] VITALS: BP 127/87
[2018-05-18] MEDS: D5 1/2NS 1,000 ML IV SCH ×2 (04:27→16:59)
[2018-05-18 07:20] LABS: BASOPHILS % (AUTO) 0.3 % (0.0-2.0); EOSINOPHILS % (AUTO) 4.9 % (0.0-3.0); HEMOGLOBIN 12.8 G/DL (14.2-18.0); LYMPHOCYTES % (AUTO) 13.6 % (20.0-45.0); MEAN CORPUSCULAR VOLUME 87 FL (80-99); MONOCYTES % (AUTO) 4.2 % (1.0-10.0); PLATELET COUNT 181 K/UL (150-450); RED BLOOD COUNT 4.48 M/UL (4.70-6.10); RED CELL DISTRIBUTION WIDTH 13.7 % (11.6-14.8); WHITE BLOOD COUNT 14.2 K/UL (4.8-10.8)
--- NOTE | 2018-05-18 07:20 | NUR ---
NURSE NOTES: Received report from GEOVANNA Caba. Patient is resting in bed, in stable condition. No s/sx of SOB, breathing is even and unlabored. Vent settings are as ordered. Observed no presence of pain or discomfort at this time. Bed is in lowest position, brakes engaged. Call light is kept within easy reach. Will continue to monitor patient.
--- NOTE | 2018-05-18 07:40 | NUR ---
HAND-OFF: Report given to GEOVANNA Hagen. Pt is resting on the bed and no sign of acute distress noted. Tolerated well with curretn Vent setting.
[2018-05-18 07:43] LABS: ALANINE AMINOTRANSFERASE 54 U/L (12-78); ALBUMIN 2.5 G/DL (3.4-5.0); ALBUMIN/GLOBULIN RATIO 0.5 (1.0-2.7); ALKALINE PHOSPHATASE 409 U/L (46-116); ANION GAP 10 mmol/L (5-15); ASPARTATE AMINO TRANSFERASE 75 U/L (15-37); BILIRUBIN,TOTAL 0.7 MG/DL (0.2-1.0); BLOOD UREA NITROGEN 11 mg/dL (7-18); CALCIUM 8.7 MG/DL (8.5-10.1); CARBON DIOXIDE 22 MMOL/L (21-32); CHLORIDE 107 MMOL/L (98-107); CREATININE 0.7 MG/DL (0.55-1.30); POTASSIUM 3.7 MMOL/L (3.5-5.1); SODIUM 139 MMOL/L (136-145)
[2018-05-18] MEDS: Albuterol/Ipratropium 3ml neb HHN SCH ×3 (07:45→23:12)
[2018-05-18 08:00] VITALS: BP 97/69
[2018-05-18] MEDS ORDERED: fentaNYL 100 mcg/2 mL IV PRN (08:15)
[2018-05-18] MEDS ORDERED: Atropine Inj 1mg/10ml Syr IV PRN (08:15)
[2018-05-18] MEDS ORDERED: Midazolam 2mg/2ml Inj IVP PRN (08:15)
[2018-05-18] MEDS ORDERED: DiphenhydrAMINE 50mg/ml Inj IVP PRN (08:15)
--- NOTE | 2018-05-18 08:17 | Anethesia Preoperative Eval ---
Anesthesia Pre-op PMH/ROS General Date of Evaluation: May 19, 2018 Time of Evaluation: 07:24 Anesthesiologist: ely ASA Score: ASA 4 Mallampati Score Class I : Soft palate, uvula, fauces, pillars visible Class II: Soft palate, uvula, fauces visible Class III: Soft palate, base of uvula visible Class IV: Only hard plate visible Mallampati Classification: Class II Surgeon: nati Diagnosis: gi bleed Surgical Procedure: egd Anesthesia History: none Social History: smoking - former smoker Family History: no anesthesia problems Allergies: Coded Allergies: OXYTETRACYCLINE (Unverified Allergy, Unknown, 09/05/13) PENICILLINS (Unverified Allergy, Unknown, 06/11/17) Tolerated one dose of Cefepime 06/07/17 Tolerated Cefdinir 06/10/17 Uncoded Allergies: PLASTIC TAPE (Allergy, Mild, ITCHINESS, 08/08/15) MEDICAL TAPE (Allergy, Unknown, 12/10/16) Medications: see eMAR Patient NPO?: Yes Past Medical History Cardiovascular: Reports: HTN, other - pvd,pacemaker, hypercholesterolemia, Pulmonary: Reports: asthma, COPD, other - collapsed lung, respiratory failre, tracheostomy, ventilator dependent, hemoptysis Gastrointestinal/Genitourinary: Reports: ESRD - on hemodialysis, other - coffee ground emesis, cholelithiasis, malfunctioning g-tube, hematuria, obstructive uropathy, Neurologic/Psychiatric: Reports: CVA, depression/anxiety, TIA, other - dysphagia, parkinson's dz, seizures, Endocrine: Reports: DM Hematology/Immune: Reports: anemia, other Musculoskeletal/Integumentary: Reports: other - fibromyalgia, contracturs Anesthesia Pre-op Phys. Exam Physician Exam Last Vital Signs Date Time Temp Pulse Resp B/P (MAP) Pulse Ox O2 Delivery O2 Flow Rate FiO2 05/18/18 07:54 88 14 100 Mechanical Ventilator 35 05/18/18 04:00 98.6 127/87 (100) 05/16/18 16:00 35.0 Constitutional: NAD Neurologic: CN 2-12 intact Cardiovascular: other - tracheostomy Respiratory: other - tracheostomy Gastrointestinal: other - gtube Airway Exam Mallampati Score: Class II MO: limited Neck: tracheostomy TMD: 2fb ROM: limited Teeth: missing, broken Anesthesia Pre-op A/P Labs Hematology Test 05/18/18 04:50 White Blood Count 14.2 K/UL (4.8-10.8) H Red Blood Count 4.48 M/UL (4.70-6.10) L Hemoglobin 12.8 G/DL (14.2-18.0) L Hematocrit 39.0 % (42.0-52.0) L Mean Corpuscular Volume 87 FL (80-99) Mean Corpuscular Hemoglobin 28.6 PG (27.0-31.0) Mean Corpuscular Hemoglobin Concent 32.8 G/DL (32.0-36.0) Red Cell Distribution Width 13.7 % (11.6-14.8) Platelet Count 181 K/UL (150-450) Mean Platelet Volume 8.9 FL (6.5-10.1) Neutrophils (%) (Auto) 77.0 % (45.0-75.0) H Lymphocytes (%) (Auto) 13.6 % (20.0-45.0) L Monocytes (%) (Auto) 4.2 % (1.0-10.0) Eosinophils (%) (Auto) 4.9 % (0.0-3.0) H Basophils (%) (Auto) 0.3 % (0.0-2.0) Chemistry Test 05/18/18 04:50 Sodium Level 139 MMOL/L (136-145) Potassium Level 3.7 MMOL/L (3.5-5.1) Chloride Level 107 MMOL/L (98-107) Carbon Dioxide Level 22 MMOL/L (21-32) Anion Gap 10 mmol/L (5-15) Blood Urea Nitrogen 11 mg/dL (7-18) Creatinine 0.7 MG/DL (0.55-1.30) Estimat Glomerular Filtration Rate > 60 mL/min (>60) Glucose Level 101 MG/DL (74-106) Calcium Level 8.7 MG/DL (8.5-10.1) Total Bilirubin 0.7 MG/DL (0.2-1.0) Aspartate Amino Transf (AST/SGOT) 75 U/L (15-37) H Alanine Aminotransferase (ALT/SGPT) 54 U/L (12-78) Alkaline Phosphatase 409 U/L (46-116) H Pro-B-Type Natriuretic Peptide 267 pg/mL (0-125) H Total Protein 7.5 G/DL (6.4-8.2) Albumin 2.5 G/DL (3.4-5.0) L Globulin 5.0 g/dL Albumin/Globulin Ratio 0.5 (1.0-2.7) L Risk Assessment & Plan Assessment: asa4 Plan: mac Status Change Before Surgery: No Pre-Antibiotics Drug: Sangita Davenport MD May 18, 2018 08:17
--- NOTE | 2018-05-18 10:30 | Pulmonolgy Critical Care Note ---
Critical Care - Asmt/Plan Problems: (1) Gastrointestinal hemorrhage (2) Sepsis (3) Chronic respiratory failure (4) Feeding by G-tube (5) History of CVA (cerebrovascular accident) Respiratory: monitor respiratory rate, adjust FIO2, CXR Cardiac: continue to monitor HR/BP Renal: F/U I&O, keep IV fluid Infectious Disease: check cultures, continue antibiotics Gastrointestinal: hold feedings, other - for EGD on Thursday Endocrine: continue sliding scale insulin Hematologic: monitor H/H, transfuse if hgb<8.5 Neurologic: PRN Ativan, PRN Morphine, keep patient comfortable Affect: PRN ativan Disposition: keep in ICU Notes Reviewed: wig comber, ID, GI Discussed with: nurses, consultants, patient case coordinatorbiodiesel division manager - Objective Last 24 Hour Vital Signs Date Time Temp Pulse Resp B/P (MAP) Pulse Ox O2 Delivery O2 Flow Rate FiO2 05/18/18 09:00 72 14 35 05/18/18 08:00 99.9 86 14 97/69 (78) 99 05/18/18 08:00 35 05/18/18 08:00 Mechanical Ventilator 05/18/18 07:54 88 14 100 Mechanical Ventilator 35 05/18/18 07:44 82 14 99 Mechanical Ventilator 35 05/18/18 07:15 82 14 35 05/18/18 05:02 87 14 35 05/18/18 04:00 98.6 85 14 127/87 (100) 100 05/18/18 04:00 91 05/18/18 04:00 Mechanical Ventilator 05/18/18 04:00 35 05/18/18 02:55 88 14 35 05/18/18 01:02 85 14 35 05/18/18 00:00 Mechanical Ventilator 05/18/18 00:00 88 05/18/18 00:00 98.6 85 14 127/87 (100) 100 05/17/18 23:27 84 14 100 Mechanical Ventilator 35 05/17/18 23:17 81 14 100 Mechanical Ventilator 35 05/17/18 23:09 81 14 35 05/17/18 20:47 77 14 35 05/17/18 20:00 Mechanical Ventilator 05/17/18 20:00 77 05/17/18 20:00 35 05/17/18 20:00 98.2 76 14 116/76 (89) 100 05/17/18 19:17 78 14 35 05/17/18 16:45 84 18 35 05/17/18 16:00 35 05/17/18 16:00 78 05/17/18 16:00 Mechanical Ventilator 05/17/18 16:00 98.6 78 14 96/73 (81) 100 05/17/18 15:29 90 14 100 Mechanical Ventilator 35 05/17/18 15:20 81 14 35 05/17/18 15:20 82 14 98 Mechanical Ventilator 35 05/17/18 12:41 93 14 35 05/17/18 12:00 35 05/17/18 12:00 Mechanical Ventilator 05/17/18 12:00 98.7 102 15 109/76 (87) 99 05/17/18 12:00 92 05/17/18 11:14 92 14 35 Status: awake Condition: critical Neck: full ROM Lungs: clear Heart: HR/BP stable Abdomen: soft, non-tender, feeding tube Extremities: no C/C/E, edema Decubiti: location Micro: Microbiology Date/Time Source Procedure Growth Status 05/15/18 21:00 Nasal Nares MRSA Culture - Final NO METHICILLIN RESISTANT STAPH AUREUS... Complete 05/16/18 16:00 Stool Clostridium difficile Toxin Assay - Final Complete 05/16/18 07:00 Rectum VRE Culture - Final NO VANCOMYCIN RESISTANT ENTEROCOCCUS ... Complete 05/15/18 21:00 Rectum - Final NO CARBAPENEM-RESISTANT ENTEROBACTERI... Complete Critical Care - Subjective ROS Limited/Unobtainable: Yes Condition: critical EKG Rhythm: Sinus Rhythm FI02: 35 Vent Support Breath Rate: 14 Vent Support Mode: AC Vent Tidal Volume: 600 Sputum Amount: Moderate PEEP: 5.0 PIP: 19 I&O: Intake and Output 05/17/18 05/18/18 19:00 07:00 Intake Total 862.5 ml 865 ml Output Total 400 ml 700 ml Balance 462.5 ml 165 ml IV Total 862.5 ml 865 ml Output Urine Total 200 ml 500 ml Stool Total 200 ml 200 ml # Voids 2 CXR: RYAN Labs: Laboratory Tests Test 05/18/18 04:50 White Blood Count 14.2 K/UL (4.8-10.8) H Red Blood Count 4.48 M/UL (4.70-6.10) L Hemoglobin 12.8 G/DL (14.2-18.0) L Hematocrit 39.0 % (42.0-52.0) L Mean Corpuscular Volume 87 FL (80-99) Mean Corpuscular Hemoglobin 28.6 PG (27.0-31.0) Mean Corpuscular Hemoglobin Concent 32.8 G/DL (32.0-36.0) Red Cell Distribution Width 13.7 % (11.6-14.8) Platelet Count 181 K/UL (150-450) Mean Platelet Volume 8.9 FL (6.5-10.1) Neutrophils (%) (Auto) 77.0 % (45.0-75.0) H Lymphocytes (%) (Auto) 13.6 % (20.0-45.0) L Monocytes (%) (Auto) 4.2 % (1.0-10.0) Eosinophils (%) (Auto) 4.9 % (0.0-3.0) H Basophils (%) (Auto) 0.3 % (0.0-2.0) Sodium Level 139 MMOL/L (136-145) Potassium Level 3.7 MMOL/L (3.5-5.1) Chloride Level 107 MMOL/L (98-107) Carbon Dioxide Level 22 MMOL/L (21-32) Anion Gap 10 mmol/L (5-15) Blood Urea Nitrogen 11 mg/dL (7-18) Creatinine 0.7 MG/DL (0.55-1.30) Estimat Glomerular Filtration Rate > 60 mL/min (>60) Glucose Level 101 MG/DL (74-106) Calcium Level 8.7 MG/DL (8.5-10.1) Total Bilirubin 0.7 MG/DL (0.2-1.0) Aspartate Amino Transf (AST/SGOT) 75 U/L (15-37) H Alanine Aminotransferase (ALT/SGPT) 54 U/L (12-78) Alkaline Phosphatase 409 U/L (46-116) H Pro-B-Type Natriuretic Peptide 267 pg/mL (0-125) H Total Protein 7.5 G/DL (6.4-8.2) Albumin 2.5 G/DL (3.4-5.0) L Globulin 5.0 g/dL Albumin/Globulin Ratio 0.5 (1.0-2.7) L Sagar Rudd MD May 18, 2018 10:30
--- NOTE | 2018-05-18 10:56 | NUR ---
RADIOLOGY DEPT CHEST X-RAY DONE.-P.DYE
--- NOTE | 2018-05-18 11:20 | Diagnostic Imaging Report ---
Indication: Dyspnea Technique: One view of the chest Comparison: 05/15/2018 Findings: There is increasing left basilar opacity, likely reflecting increased pleural fluid, possibly with some underlying atelectasis or consolidation as well. Generalized mild interstitial congestive changes are stable. Tracheostomy remains Impression: Suspect increasing pleural and parenchymal disease at the left lung base, over 3 days Other stable findings as described
[2018-05-18 12:00] VITALS: BP 97/69
--- NOTE | 2018-05-18 12:47 | Infectious Diseases Prog Note ---
Assessment/Plan Assessment/Plan Abx: None Assessment: Recurrent coffee ground emesis -hx on 02/2017 -EGD 01/2017: gastritis; on coumadin Mild Leukocytosis- increasing Afebrile Probable Asp PNA -05/17 CXR: There is increasing left basilar opacity, likely reflecting increased pleural fluid, possibly with some underlying atelectasis or consolidation as well. -CXR: Bibasilar opacities. Findings may be inflammatory or infectious. 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 HUONG could not be done History of chronically elevated alkaline phosphatase CVA with anoxic brain injury Sacral decubitus. Ventilator-dependent respiratory failure. History of trach and PEG placement. COPD. Esophagitis, Hx EGD : . Minimum distal esophagitis. Gastritis, status post biopsy. 01/23 Diabetes. Anxiety. Anemia. Plan: -Start empiric Cefepime and Flagyl to cover for aspiration PNA -f/u cx -Monitor CBC/CMP, temperatures -sp cx Thank you for this consultation. Will continue to follow along with you. Discussed with RN. Subjective Allergies: Coded Allergies: OXYTETRACYCLINE (Unverified Allergy, Unknown, 09/05/13) PENICILLINS (Unverified Allergy, Unknown, 06/11/17) Tolerated one dose of Cefepime 06/07/17 Tolerated Cefdinir 06/10/17 Uncoded Allergies: PLASTIC TAPE (Allergy, Mild, ITCHINESS, 08/08/15) MEDICAL TAPE (Allergy, Unknown, 12/10/16) Subjective afebrile wbc increased Objective Vital Signs Last 24 Hour Vital Signs Date Time Temp Pulse Resp B/P (MAP) Pulse Ox O2 Delivery O2 Flow Rate FiO2 05/18/18 11:07 70 14 35 05/18/18 09:00 72 14 35 05/18/18 08:00 99.9 86 14 97/69 (78) 99 05/18/18 08:00 35 05/18/18 08:00 Mechanical Ventilator 05/18/18 07:54 88 14 100 Mechanical Ventilator 35 05/18/18 07:44 82 14 99 Mechanical Ventilator 35 05/18/18 07:40 80 05/18/18 07:15 82 14 35 05/18/18 05:02 87 14 35 05/18/18 04:00 98.6 85 14 127/87 (100) 100 05/18/18 04:00 91 05/18/18 04:00 Mechanical Ventilator 05/18/18 04:00 35 05/18/18 02:55 88 14 35 05/18/18 01:02 85 14 35 05/18/18 00:00 Mechanical Ventilator 05/18/18 00:00 88 05/18/18 00:00 98.6 85 14 127/87 (100) 100 05/17/18 23:27 84 14 100 Mechanical Ventilator 35 05/17/18 23:17 81 14 100 Mechanical Ventilator 35 05/17/18 23:09 81 14 35 05/17/18 20:47 77 14 35 05/17/18 20:00 Mechanical Ventilator 05/17/18 20:00 77 05/17/18 20:00 35 05/17/18 20:00 98.2 76 14 116/76 (89) 100 05/17/18 19:17 78 14 35 05/17/18 16:45 84 18 35 05/17/18 16:00 35 05/17/18 16:00 78 05/17/18 16:00 Mechanical Ventilator 05/17/18 16:00 98.6 78 14 96/73 (81) 100 05/17/18 15:29 90 14 100 Mechanical Ventilator 35 05/17/18 15:20 81 14 35 05/17/18 15:20 82 14 98 Mechanical Ventilator 35 Height (Feet): 5 Height (Inches): 6.00 Weight (Pounds): 152 Objective Status: obtunded Condition: critical HEENT: atraumatic Lungs: chest wall tender Heart: HR/BP unstable Abdomen: soft, active bowel sounds Extremities: no C/C/E Microbiology Date/Time Source Procedure Growth Status 05/15/18 21:00 Nasal Nares MRSA Culture - Final NO METHICILLIN RESISTANT STAPH AUREUS... Complete 05/16/18 16:00 Stool Clostridium difficile Toxin Assay - Final Complete 05/16/18 07:00 Rectum VRE Culture - Final NO VANCOMYCIN RESISTANT ENTEROCOCCUS ... Complete 05/15/18 21:00 Rectum - Final NO CARBAPENEM-RESISTANT ENTEROBACTERI... Complete Laboratory Tests Test 05/18/18 04:50 White Blood Count 14.2 K/UL (4.8-10.8) H Red Blood Count 4.48 M/UL (4.70-6.10) L Hemoglobin 12.8 G/DL (14.2-18.0) L Hematocrit 39.0 % (42.0-52.0) L Mean Corpuscular Volume 87 FL (80-99) Mean Corpuscular Hemoglobin 28.6 PG (27.0-31.0) Mean Corpuscular Hemoglobin Concent 32.8 G/DL (32.0-36.0) Red Cell Distribution Width 13.7 % (11.6-14.8) Platelet Count 181 K/UL (150-450) Mean Platelet Volume 8.9 FL (6.5-10.1) Neutrophils (%) (Auto) 77.0 % (45.0-75.0) H Lymphocytes (%) (Auto) 13.6 % (20.0-45.0) L Monocytes (%) (Auto) 4.2 % (1.0-10.0) Eosinophils (%) (Auto) 4.9 % (0.0-3.0) H Basophils (%) (Auto) 0.3 % (0.0-2.0) Sodium Level 139 MMOL/L (136-145) Potassium Level 3.7 MMOL/L (3.5-5.1) Chloride Level 107 MMOL/L (98-107) Carbon Dioxide Level 22 MMOL/L (21-32) Anion Gap 10 mmol/L (5-15) Blood Urea Nitrogen 11 mg/dL (7-18) Creatinine 0.7 MG/DL (0.55-1.30) Estimat Glomerular Filtration Rate > 60 mL/min (>60) Glucose Level 101 MG/DL (74-106) Calcium Level 8.7 MG/DL (8.5-10.1) Total Bilirubin 0.7 MG/DL (0.2-1.0) Aspartate Amino Transf (AST/SGOT) 75 U/L (15-37) H Alanine Aminotransferase (ALT/SGPT) 54 U/L (12-78) Alkaline Phosphatase 409 U/L (46-116) H Pro-B-Type Natriuretic Peptide 267 pg/mL (0-125) H Total Protein 7.5 G/DL (6.4-8.2) Albumin 2.5 G/DL (3.4-5.0) L Globulin 5.0 g/dL Albumin/Globulin Ratio 0.5 (1.0-2.7) L Current Medications Medications (Trade) Dose Ordered Sig/Sima Route PRN Reason Start Time Stop Time Status Last Admin Dose Admin Acetaminophen (Tylenol) 650 mg Q4H PRN ORAL fever 05/15/18 22:30 06/14/18 22:29 Acetaminophen/ Hydrocodone Bitart (Street 10/325) 1 tab Q12HR PRN GT For Pain 05/15/18 22:30 05/22/18 22:29 Al Hydroxide/Mg Hydroxide (Mylanta II) 30 ml Q6H PRN ORAL dyspepsia 05/15/18 22:30 06/14/18 22:29 Al Hydroxide/Mg Hydroxide (Mylanta) 15 ml Q1H PRN ORAL gi upset 05/18/18 08:15 05/18/18 14:00 Albuterol/ Ipratropium (Albuterol/ Ipratropium) 3 ml Q8HRT HHN 05/16/18 07:00 05/21/18 06:59 05/18/18 07:45 Atorvastatin Calcium (Lipitor) 10 mg BEDTIME GT 05/16/18 21:00 06/15/18 20:59 05/17/18 20:37 Atropine Sulfate (Atropine) 0.5 mg Q5M PRN IV bpm less than 45 05/18/18 08:15 05/18/18 14:00 Dextrose (Dextrose 50%) STAT PRN IV Hypoglycemia 05/15/18 22:30 06/14/18 22:29 Dextrose/Sodium Chloride 1,000 ml @ 75 mls/hr [id number] IV 05/15/18 22:19 06/14/18 22:18 05/18/18 04:27 Diphenhydramine HCl (Benadryl) 25 mg Q15M PRN IVP Itching 05/18/18 08:15 05/18/18 14:00 Diphenhydramine HCl (Benadryl) 25 mg Q6H PRN ORAL Itching/Pruritis 05/15/18 22:30 06/14/18 22:29 Fentanyl Citrate (Sublimaze 100 mcg/2 mL) 25 mcg Q10M PRN IV Moderate Pain (Pain Scale 4-6) 05/18/18 08:15 05/18/18 14:00 Hydralazine HCl (Apresoline) 5 mg Q30M PRN IV SBP>160 OR___/DBP>90 OR___ 05/18/18 08:15 05/18/18 14:00 Lansoprazole (Prevacid) 30 mg BID GT 05/17/18 18:00 06/15/18 17:59 05/18/18 08:03 Loperamide HCl (Imodium) 2 mg Q6H PRN GT Diarrhea 05/17/18 19:00 06/16/18 18:59 05/17/18 19:19 Midazolam HCl (Versed 2mg/2ml vial) 1 mg Q15M PRN IVP For Anxiety 05/18/18 08:15 05/18/18 14:00 Morphine Sulfate (Morphine Sulfate) 2 mg EVERY 4 HOURS PRN IVP severe Pain (Pain Scale 7-10) 05/15/18 22:30 05/22/18 22:29 Nitroglycerin (Ntg) 0.4 mg Q5M X 3 DOSES PRN SL Prn Chest Pain 05/15/18 22:30 06/14/18 22:29 Ondansetron HCl (Zofran) 4 mg Q1H PRN IVP Nausea & Vomiting 05/18/18 08:15 05/18/18 14:00 Ondansetron HCl (Zofran) 4 mg Q6H PRN IVP Nausea & Vomiting 05/15/18 22:30 06/14/18 22:29 Polyethylene Glycol (Miralax) 17 gm HSPRN PRN ORAL Constipation 05/15/18 22:30 06/14/18 22:29 Sodium Chloride 1,000 ml @ 10 mls/hr Q24H IVLG 05/18/18 08:04 05/18/18 14:00 Nanci Kline M.D. May 18, 2018 12:47
--- NOTE | 2018-05-18 13:25 | GI Progress Note ---
Assessment/Plan Problems: (1) Upper GI bleed ICD Codes: K92.2 - Gastrointestinal hemorrhage, unspecified SNOMED: 65963292 (2) Coffee ground emesis ICD Codes: K92.0 - Hematemesis SNOMED: 71031305 (3) Gastrointestinal hemorrhage ICD Codes: K92.2 - Gastrointestinal hemorrhage, unspecified SNOMED: 98925505 (4) Severe sepsis ICD Codes: A41.9 - Sepsis, unspecified organism; R65.20 - Severe sepsis without septic shock SNOMED: 30198359 (5) Feeding by G-tube ICD Codes: Z93.1 - Feeding by G-tube SNOMED: 846227356 Status: unchanged Status Narrative Discussed with Dr. Rosas. Assessment/Plan EGD rescheduled until tomorrow. - NPO @ MN. 500 cc gastric lavage evaluate for active UGIB, negative anemia work up OB stool r/o GI bleed monitor H&H, prn transfusions bowel regime ppi BID fu labs, trend LFTs We will follow with additional recommendations postprocedure The patient was seen and examined at bedside and all new and available data was reviewed in the patients chart. I agree with the above findings, impression and plan. (Patient seen earlier today. Signature stamp does not reflect patient encounter time.). - Gaurav Rosas MD Subjective Subjective limited Objective Last 24 Hour Vital Signs Date Time Temp Pulse Resp B/P (MAP) Pulse Ox O2 Delivery O2 Flow Rate FiO2 05/18/18 12:00 98.8 77 14 97/69 (78) 99 05/18/18 12:00 Mechanical Ventilator 05/18/18 12:00 35 05/18/18 11:07 70 14 35 05/18/18 09:00 72 14 35 05/18/18 08:00 99.9 86 14 97/69 (78) 99 05/18/18 08:00 35 05/18/18 08:00 Mechanical Ventilator 05/18/18 07:54 88 14 100 Mechanical Ventilator 35 05/18/18 07:44 82 14 99 Mechanical Ventilator 35 05/18/18 07:40 80 05/18/18 07:15 82 14 35 05/18/18 05:02 87 14 35 05/18/18 04:00 98.6 85 14 127/87 (100) 100 05/18/18 04:00 91 05/18/18 04:00 Mechanical Ventilator 05/18/18 04:00 35 05/18/18 02:55 88 14 35 05/18/18 01:02 85 14 35 05/18/18 00:00 Mechanical Ventilator 05/18/18 00:00 88 05/18/18 00:00 98.6 85 14 127/87 (100) 100 05/17/18 23:27 84 14 100 Mechanical Ventilator 35 05/17/18 23:17 81 14 100 Mechanical Ventilator 35 05/17/18 23:09 81 14 35 05/17/18 20:47 77 14 35 05/17/18 20:00 Mechanical Ventilator 05/17/18 20:00 77 05/17/18 20:00 35 05/17/18 20:00 98.2 76 14 116/76 (89) 100 05/17/18 19:17 78 14 35 05/17/18 16:45 84 18 35 05/17/18 16:00 35 05/17/18 16:00 78 05/17/18 16:00 Mechanical Ventilator 05/17/18 16:00 98.6 78 14 96/73 (81) 100 05/17/18 15:29 90 14 100 Mechanical Ventilator 35 05/17/18 15:20 81 14 35 05/17/18 15:20 82 14 98 Mechanical Ventilator 35 Intake and Output 05/17/18 05/18/18 19:00 07:00 Intake Total 862.5 ml 865 ml Output Total 400 ml 700 ml Balance 462.5 ml 165 ml IV Total 862.5 ml 865 ml Output Urine Total 200 ml 500 ml Stool Total 200 ml 200 ml # Voids 2 Laboratory Tests Test 05/18/18 04:50 White Blood Count 14.2 K/UL (4.8-10.8) H Red Blood Count 4.48 M/UL (4.70-6.10) L Hemoglobin 12.8 G/DL (14.2-18.0) L Hematocrit 39.0 % (42.0-52.0) L Mean Corpuscular Volume 87 FL (80-99) Mean Corpuscular Hemoglobin 28.6 PG (27.0-31.0) Mean Corpuscular Hemoglobin Concent 32.8 G/DL (32.0-36.0) Red Cell Distribution Width 13.7 % (11.6-14.8) Platelet Count 181 K/UL (150-450) Mean Platelet Volume 8.9 FL (6.5-10.1) Neutrophils (%) (Auto) 77.0 % (45.0-75.0) H Lymphocytes (%) (Auto) 13.6 % (20.0-45.0) L Monocytes (%) (Auto) 4.2 % (1.0-10.0) Eosinophils (%) (Auto) 4.9 % (0.0-3.0) H Basophils (%) (Auto) 0.3 % (0.0-2.0) Sodium Level 139 MMOL/L (136-145) Potassium Level 3.7 MMOL/L (3.5-5.1) Chloride Level 107 MMOL/L (98-107) Carbon Dioxide Level 22 MMOL/L (21-32) Anion Gap 10 mmol/L (5-15) Blood Urea Nitrogen 11 mg/dL (7-18) Creatinine 0.7 MG/DL (0.55-1.30) Estimat Glomerular Filtration Rate > 60 mL/min (>60) Glucose Level 101 MG/DL (74-106) Calcium Level 8.7 MG/DL (8.5-10.1) Total Bilirubin 0.7 MG/DL (0.2-1.0) Aspartate Amino Transf (AST/SGOT) 75 U/L (15-37) H Alanine Aminotransferase (ALT/SGPT) 54 U/L (12-78) Alkaline Phosphatase 409 U/L (46-116) H Pro-B-Type Natriuretic Peptide 267 pg/mL (0-125) H Total Protein 7.5 G/DL (6.4-8.2) Albumin 2.5 G/DL (3.4-5.0) L Globulin 5.0 g/dL Albumin/Globulin Ratio 0.5 (1.0-2.7) L Height (Feet): 5 Height (Inches): 6.00 Weight (Pounds): 152 General Appearance: no apparent distress Cardiovascular: normal rate Respiratory/Chest: normal breath sounds, no respiratory distress Abdominal Exam: normal bowel sounds, non tender, soft, GT site - c/d/i Extremities: non-tender Good Garcia PROGRESS[facility]ARE [facility]IT REGISTERED NURSE May 18, 2018 13:25
--- NOTE | 2018-05-18 14:00 | NUR ---
NURSE NOTES: Per CRYSTAL Evans, ordered to restart tube feeding, NPO at midnight; EGD has been rescheduled. Orders entered, noted, and carried out. Will continue to monitor patient.
[2018-05-18] MEDS: metroNIDAZOLE 500mg tab ORAL SCH ×2 (14:30→21:22)
[2018-05-18] MEDS: Cefepime HCl 1 GM in D5W 55 ML IVPB SCH (14:31)
[2018-05-18 16:00] VITALS: BP 97/70
--- NOTE | 2018-05-18 17:00 | NUR ---
NURSE NOTES: Dr. Scales called nurse station via telephone and ordered wound treatment. Per Dr. Scales ordered "Apply betadine on Left heel of foot, Right malleolus of right foot, and subcute of right foot." Orders entered, noted, and carried out. Will continue to monitor patient.
--- NOTE | 2018-05-18 17:22 | NUR ---
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 98.8 HR 77 RR 14 B/P 97/69 AC 14 TV 600 FIO2 35% PEEP 5 WBC 14.2 AST 75 ALK PHOS 409 BNP 237 CXR= INCREASING PLEURAL AND PARENCHYMAL DISEASE @ LEFT LUNG BASE IS: CEFEPIME IV FLAGYL IV IVF D5NS @ 75ML/HR ALB HHN STEP DOWN STATUS
--- NOTE | 2018-05-18 18:34 | NUR ---
NURSE NOTES: Per CRYSTAL Evans, ordered to continue4 Glucerna 1.2 and novolog sliding scale Q6hr in hospital. Order entered, noted, and carried out. Will continue to monitor patient.
--- NOTE | 2018-05-18 19:25 | NUR ---
HAND-OFF: Report given to GEOVANNA Sandoval.
--- NOTE | 2018-05-18 19:26 | Internal Med Progress Note ---
Subjective Date of Service: May 18, 2018 Physician Name Samuel Caballero Attending Physician Boris Arevalo MD Current Medications Medications (Trade) Dose Ordered Sig/Sima Route PRN Reason Start Time Stop Time Status Last Admin Dose Admin Acetaminophen (Tylenol) 650 mg Q4H PRN ORAL fever 05/15/18 22:30 06/14/18 22:29 Acetaminophen/ Hydrocodone Bitart ([place] 10/325) 1 tab Q12HR PRN GT For Pain 05/15/18 22:30 05/22/18 22:29 Al Hydroxide/Mg Hydroxide (Mylanta II) 30 ml Q6H PRN ORAL dyspepsia 05/15/18 22:30 06/14/18 22:29 Albuterol/ Ipratropium (Albuterol/ Ipratropium) 3 ml Q8HRT HHN 05/16/18 07:00 05/21/18 06:59 05/18/18 15:22 Atorvastatin Calcium (Lipitor) 10 mg BEDTIME GT 05/16/18 21:00 06/15/18 20:59 05/17/18 20:37 Cefepime HCl 1 gm/ Dextrose 55 ml @ 110 mls/hr Q12H IVPB 05/18/18 14:00 05/25/18 13:59 05/18/18 14:31 Dextrose (Dextrose 50%) 25 ml Q30M PRN IV Hypoglycemia 05/18/18 18:45 06/17/18 18:44 Dextrose (Dextrose 50%) 50 ml Q30M PRN IV Hypoglycemia 05/18/18 18:45 06/17/18 18:44 Dextrose/Sodium Chloride 1,000 ml @ 75 mls/hr [id number] IV 05/15/18 22:19 06/14/18 22:18 05/18/18 16:59 Diphenhydramine HCl (Benadryl) 25 mg Q6H PRN ORAL Itching/Pruritis 05/15/18 22:30 06/14/18 22:29 Insulin Aspart (NovoLOG) Q6HR SUBQ 05/19/18 00:00 06/18/18 00:00 Lansoprazole (Prevacid) 30 mg BID GT 05/17/18 18:00 06/15/18 17:59 05/18/18 17:56 Loperamide HCl (Imodium) 2 mg Q6H PRN GT Diarrhea 05/17/18 19:00 06/16/18 18:59 05/17/18 19:19 Metronidazole (Flagyl) 500 mg Q8HR ORAL 05/18/18 14:00 05/25/18 13:59 05/18/18 14:30 Morphine Sulfate (Morphine Sulfate) 2 mg EVERY 4 HOURS PRN IVP severe Pain (Pain Scale 7-10) 05/15/18 22:30 05/22/18 22:29 Nitroglycerin (Ntg) 0.4 mg Q5M X 3 DOSES PRN SL Prn Chest Pain 05/15/18 22:30 06/14/18 22:29 Ondansetron HCl (Zofran) 4 mg Q6H PRN IVP Nausea & Vomiting 05/15/18 22:30 06/14/18 22:29 Polyethylene Glycol (Miralax) 17 gm HSPRN PRN ORAL Constipation 05/15/18 22:30 06/14/18 22:29 Allergies: Coded Allergies: OXYTETRACYCLINE (Unverified Allergy, Unknown, 09/05/13) PENICILLINS (Unverified Allergy, Unknown, 06/11/17) Tolerated one dose of Cefepime 06/07/17 Tolerated Cefdinir 06/10/17 Uncoded Allergies: PLASTIC TAPE (Allergy, Mild, ITCHINESS, 08/08/15) MEDICAL TAPE (Allergy, Unknown, 12/10/16) ROS Limited/Unobtainable: Yes Subjective 63 YO M admitted with coffee grounds emesis. Now pneumonia. Cover for Int Yuri- DR Peña. PERCY Objective Last Vital Signs Date Time Temp Pulse Resp B/P (MAP) Pulse Ox O2 Delivery O2 Flow Rate FiO2 05/18/18 19:12 65 14 35 05/18/18 16:00 Mechanical Ventilator 05/18/18 16:00 99.0 97/70 (79) 99 05/16/18 16:00 35.0 General Appearance: WD/WN, no apparent distress, lethargic EENT: PERRL/EOMI, normal ENT inspection Neck: non-tender, normal alignment, supple, normal inspection Cardiovascular: normal peripheral pulses, normal rate, regular rhythm, no gallop/murmur, no JVD Respiratory/Chest: chest wall non-tender, respiratory distress, crackles/rales , rhonchi - bilaterally, expiratory wheezing Abdomen: normal bowel sounds, non tender, soft, no organomegaly, no mass Extremities: normal range of motion Edema: trace edema Neurologic: unresponsiveness Skin: normal pigmentation, warm/dry Laboratory Tests Test 05/18/18 04:50 White Blood Count 14.2 K/UL (4.8-10.8) H Red Blood Count 4.48 M/UL (4.70-6.10) L Hemoglobin 12.8 G/DL (14.2-18.0) L Hematocrit 39.0 % (42.0-52.0) L Mean Corpuscular Volume 87 FL (80-99) Mean Corpuscular Hemoglobin 28.6 PG (27.0-31.0) Mean Corpuscular Hemoglobin Concent 32.8 G/DL (32.0-36.0) Red Cell Distribution Width 13.7 % (11.6-14.8) Platelet Count 181 K/UL (150-450) Mean Platelet Volume 8.9 FL (6.5-10.1) Neutrophils (%) (Auto) 77.0 % (45.0-75.0) H Lymphocytes (%) (Auto) 13.6 % (20.0-45.0) L Monocytes (%) (Auto) 4.2 % (1.0-10.0) Eosinophils (%) (Auto) 4.9 % (0.0-3.0) H Basophils (%) (Auto) 0.3 % (0.0-2.0) Sodium Level 139 MMOL/L (136-145) Potassium Level 3.7 MMOL/L (3.5-5.1) Chloride Level 107 MMOL/L (98-107) Carbon Dioxide Level 22 MMOL/L (21-32) Anion Gap 10 mmol/L (5-15) Blood Urea Nitrogen 11 mg/dL (7-18) Creatinine 0.7 MG/DL (0.55-1.30) Estimat Glomerular Filtration Rate > 60 mL/min (>60) Glucose Level 101 MG/DL (74-106) Calcium Level 8.7 MG/DL (8.5-10.1) Total Bilirubin 0.7 MG/DL (0.2-1.0) Aspartate Amino Transf (AST/SGOT) 75 U/L (15-37) H Alanine Aminotransferase (ALT/SGPT) 54 U/L (12-78) Alkaline Phosphatase 409 U/L (46-116) H Pro-B-Type Natriuretic Peptide 267 pg/mL (0-125) H Total Protein 7.5 G/DL (6.4-8.2) Albumin 2.5 G/DL (3.4-5.0) L Globulin 5.0 g/dL Albumin/Globulin Ratio 0.5 (1.0-2.7) L Microbiology Date/Time Source Procedure Growth Status 05/15/18 21:00 Nasal Nares MRSA Culture - Final NO METHICILLIN RESISTANT STAPH AUREUS... Complete 05/16/18 16:00 Stool Clostridium difficile Toxin Assay - Final Complete 05/16/18 07:00 Rectum VRE Culture - Final NO VANCOMYCIN RESISTANT ENTEROCOCCUS ... Complete 05/15/18 21:00 Rectum - Final NO CARBAPENEM-RESISTANT ENTEROBACTERI... Complete Intake and Output 05/17/18 05/18/18 18:59 06:59 Intake Total 862.5 ml 865 ml Output Total 400 ml 700 ml Balance 462.5 ml 165 ml IV Total 862.5 ml 865 ml Output Urine Total 200 ml 500 ml Stool Total 200 ml 200 ml # Voids 2 Assessment/Plan Problem List: (1) Coffee ground emesis (2) Tracheostomy care (3) Ventilator dependence Assessment & Plan: Follow pulmonary recs (4) Gastrointestinal hemorrhage Assessment & Plan: Endoscopy scheduled for 05/19/18-see GI note (5) Chronic respiratory failure (6) Dysphagia (7) HTN (hypertension) (8) Cerebral vascular disease (9) Vegetative state (10) Feeding by G-tube (11) Pneumonia Assessment & Plan: Continue cefepime and flagyl for possible aspiration pneumonia. See ID note. Samuel Caballero MD May 18, 2018 19:26
--- NOTE | 2018-05-18 19:26 | NUR ---
NURSE NOTES: Received patient from GEOVANNA Hagen. Patient is obtunded. On trach Portex 7 to vent with settings of AC:14, TV:600, PEEP:5 FiO2:35% and showing no signs and symptoms of pain and/or distress. Patient will be NPO at midnight. Will continue plan of care.
--- NOTE | 2018-05-18 19:45 | Consultation ---
DATE OF CONSULTATION: 05/18/2018 CONSULTING PHYSICIAN: Boris Arevalo M.D. REASON FOR CONSULTATION: Bilateral foot ulceration. HISTORY OF PRESENT ILLNESS: This is a 63-year-old admitted to [facility] for gastrointestinal bleeding and possible sepsis. The patient is being followed and managed by Dr. Arevalo. The patient is bedbound and cannot relay history of present illness. PAST MEDICAL HISTORY: CVA, sepsis, diabetes, chronic obstructive pulmonary disease, contraction, gastrointestinal bleeding, peripheral vascular disease, and bilateral heel ulceration. PODIATRY EXAMINATION: VASCULAR: Dorsalis pedis and posterior tibial artery are nonpalpable. Capillary filling time was about 3 seconds. Both feet are warm to touch. NEUROLOGICAL: Cannot be assessed at this time due to the patient's bed-bound mental status. MUSCULOSKELETAL: Contraction is noted both at the hips and knees thus applying pressure on the heels bilaterally. Contracted digits are noted 2 through 5 bilaterally at the PIPJ consistent with hammertoes. Range of motion and muscle strength cannot be assessed at this time. DERMATOLOGICAL: Superficial skin abrasion and dermal layer contusion noted to the right sub fifth met head, stable. No sign of drainage, discharge, or purulence. No cellulitis noted. Attention was directed to the dorsal medial aspect of the right foot where is a superficial skin tear with erythema. No cellulitis, drainage, or discharge. Granulating healing tissue is noted. Attention was directed to the left heel where there is a dry black scab eschar distal to the plantar heel sub anterior calcaneal process area. The scalp was palpated and it is intact. There is no opening. No drainage, discharge, or purulence. No blistering. No cellulitis. No sign of infection is noted. ASSESSMENT AND PLAN: Diabetic patient with contraction to bilateral knees and hip presenting with bilateral foot ulceration. It is recommended to continue wound care orders, applying Betadine to the areas to keep it from infection. All operation sites noted to be stable. Ramses Scales D.P.M DR: BHARGAVI JOB#: [id number] CC:
[2018-05-18 20:00] VITALS: BP 102/74
--- NOTE | 2018-05-18 21:15 | General Progress Note ---
Assessment/Plan Assessment/Plan Assessment and recs # Anemia likely due to gastrointestinal hemorrhage --> at this time the h/h is stable --> anemia panel reviewed, pt has acd --> low threshold for gi eval --> Dr. Rudd on board, currently patient in sdu # Leukocytosis is likely related to reactive process from anmeia --> trend as needed currently impriving --> low threshold for starting abx # Probable HCAP vs Asp PNA - CXR: Patchy bibasilar airspace opacities, left greater than right, most concerning for infiltrate/pneumonia. --> in the past received abx, low threshold for id eval, abx # SOB - cultures currently ngtd # Elevated LFts ==> trend, as per gi # HARDEEP, resolved # Chronic resp failure on trach/vent # Dysphagia s/p GT # Recent Fungemia Shelli tropicalis 02/2017, S/p Rx # Hx of persistent low grade CONS bacteremia 01/2017- SP Rx for presumed endocarditis/endovascular source --> Bcx 01/21 04/26 CONS, 01/23 + 03/26, 01/26, +03/26 --> TTE very limited, no vegetations seen. HUONG could not be done last admission Subjective Constitutional: Denies: no symptoms, chills, diaphoresis, fever, malaise, weakness, other HEENT: Denies: no symptoms, eye pain, blurred vision, tearing, double vision, ear pain, ear discharge, nose pain, nose congestion, throat pain, throat swelling, mouth pain, mouth swelling, other Respiratory: Denies: no symptoms, cough, orthopnea, shortness of breath, SOB with excertion, SOB at rest, sputum, stridor, wheezing, other Gastrointestinal/Abdominal: Denies: no symptoms, abdomen distended, abdominal pain, black stools, tarry stools, blood in stool, constipated, diarrhea, difficulty swallowing, nausea, poor appetite, poor fluid intake, rectal bleeding , vomiting, other Genitourinary: Denies: no symptoms, burning, discharge, frequency, flank pain, hematuria, incontinence, pain, urgency, other Neurologic/Psychiatric: Denies: no symptoms, anxiety, depressed, emotional problems, headache, numbness, paresthesia, pre-existing deficit, seizure, tingling, tremors, weakness, other Endocrine: Denies: no symptoms, excessive sweating, flushing, intolerance to cold, intolerance to heat, increased hunger, increased thirst, increased urine, unexplained weight gain, unexplained weight loss, other Hematologic/Lymphatic: Denies: no symptoms, anemia, easy bleeding, easy bruising, other Allergies: Coded Allergies: OXYTETRACYCLINE (Unverified Allergy, Unknown, 09/05/13) PENICILLINS (Unverified Allergy, Unknown, 06/11/17) Tolerated one dose of Cefepime 06/07/17 Tolerated Cefdinir 06/10/17 Uncoded Allergies: PLASTIC TAPE (Allergy, Mild, ITCHINESS, 08/08/15) MEDICAL TAPE (Allergy, Unknown, 12/10/16) Subjective 05/17: seen by bedside, Trach to Vent dependent, on g-tube, scheduled EGD tomorrow,no events, cbc reviewed. 05/18: EGD rescheduled until tomorrow,wbc 14 Objective Last 24 Hour Vital Signs Date Time Temp Pulse Resp B/P (MAP) Pulse Ox O2 Delivery O2 Flow Rate FiO2 05/18/18 20:53 68 14 35 05/18/18 20:00 35 05/18/18 20:00 Mechanical Ventilator 05/18/18 20:00 98.7 64 14 102/74 (83) 100 05/18/18 19:12 65 14 35 05/18/18 17:20 80 16 35 05/18/18 16:00 66 05/18/18 16:00 Mechanical Ventilator 05/18/18 16:00 35 05/18/18 16:00 99.0 70 14 97/70 (79) 99 05/18/18 15:27 69 14 100 Mechanical Ventilator 35 05/18/18 15:17 76 16 99 Mechanical Ventilator 35 05/18/18 15:17 76 16 35 05/18/18 13:24 69 14 35 05/18/18 12:00 98.8 77 14 97/69 (78) 99 05/18/18 12:00 Mechanical Ventilator 05/18/18 12:00 35 05/18/18 11:40 71 05/18/18 11:07 70 14 35 05/18/18 09:00 72 14 35 05/18/18 08:00 99.9 86 14 97/69 (78) 99 05/18/18 08:00 35 05/18/18 08:00 Mechanical Ventilator 05/18/18 07:54 88 14 100 Mechanical Ventilator 35 05/18/18 07:44 82 14 99 Mechanical Ventilator 35 05/18/18 07:40 80 05/18/18 07:15 82 14 35 05/18/18 05:02 87 14 35 05/18/18 04:00 98.6 85 14 127/87 (100) 100 05/18/18 04:00 91 05/18/18 04:00 Mechanical Ventilator 05/18/18 04:00 35 05/18/18 02:55 88 14 35 05/18/18 01:02 85 14 35 05/18/18 00:00 Mechanical Ventilator 05/18/18 00:00 88 05/18/18 00:00 98.6 85 14 127/87 (100) 100 05/17/18 23:27 84 14 100 Mechanical Ventilator 35 05/17/18 23:17 81 14 100 Mechanical Ventilator 35 05/17/18 23:09 81 14 35 Intake and Output 05/17/18 05/18/18 18:59 06:59 Intake Total 862.5 ml 865 ml Output Total 400 ml 700 ml Balance 462.5 ml 165 ml IV Total 862.5 ml 865 ml Output Urine Total 200 ml 500 ml Stool Total 200 ml 200 ml # Voids 2 Laboratory Tests 05/18/18 04:50: White Blood Count 14.2H, Red Blood Count 4.48L, Hemoglobin 12.8L, Hematocrit 39.0L, Mean Corpuscular Volume 87, Mean Corpuscular Hemoglobin 28.6, Mean Corpuscular Hemoglobin Concent 32.8, Red Cell Distribution Width 13.7, Platelet Count 181, Mean Platelet Volume 8.9, Neutrophils (%) (Auto) 77.0H, Lymphocytes ( %) (Auto) 13.6L, Monocytes (%) (Auto) 4.2, Eosinophils (%) (Auto) 4.9H, Basophils (%) (Auto) 0.3, Sodium Level 139, Potassium Level 3.7, Chloride Level 107, Carbon Dioxide Level 22, Anion Gap 10, Blood Urea Nitrogen 11, Creatinine 0.7, Estimat Glomerular Filtration Rate > 60, Glucose Level 101, Calcium Level 8.7, Total Bilirubin 0.7, Aspartate Amino Transf (AST/SGOT) 75H, Alanine Aminotransferase (ALT/SGPT) 54, Alkaline Phosphatase 409H, Pro-B-Type Natriuretic Peptide 267H, Total Protein 7.5, Albumin 2.5L, Globulin 5.0, Albumin /Globulin Ratio 0.5L Height (Feet): 5 Height (Inches): 6.00 Weight (Pounds): 152 Objective Sp02 EP Interpretation: reviewed General Appearance: no apparent distress Head: normocephalic, atraumatic Eyes: bilateral eye PERRL ENT: dry mucus membranes Neck: supple, other - Tracheostomy in place no crepitus Respiratory: no retraction, no accessory muscle use, crackles - Bilaterally Cardiovascular: regular rate, rhythm Gastrointestinal: non tender, soft Musculoskeletal: other - Patient chronically debilitated, Contracted in upper and lower extremity Neurologic: responsive Alexi Bazan MD May 18, 2018 21:15
[2018-05-18] MEDS: NovoLOG Insulin Flexpen SUBQ SCH (23:17)
[2018-05-19] VITALS: BP 106/73
[2018-05-19] MEDS: Cefepime HCl 1 GM in D5W 55 ML IVPB SCH ×2 (01:28→15:42)
[2018-05-19 03:52] LABS: BILIRUBIN, URINE NEGATIVE (NEGATIVE); GLUCOSE, URINE (UA) NEGATIVE (NEGATIVE); KETONES,URINE NEGATIVE (NEGATIVE); LEUKOCYTE ESTERASE ,URINE 3+ (NEGATIVE); NITRITE,URINE NEGATIVE (NEGATIVE); PH,URINE 7 (4.5-8.0); PROTEIN,URINE 2+ (NEGATIVE); UROBILINOGEN,URINE 4 MG/DL (0.0-1.0)
[2018-05-19 04:00] VITALS: BP 115/82
[2018-05-19 04:40] LABS: APPEARANCE,URINE SLIGHTLY CLOUDY; COLOR,URINE YELLOW
[2018-05-19] MEDS: NovoLOG Insulin Flexpen SUBQ SCH ×4 (05:30→23:26)
[2018-05-19] MEDS: metroNIDAZOLE 500mg tab ORAL SCH (05:30)
[2018-05-19] MEDS: D5 1/2NS 1,000 ML IV SCH ×2 (06:00→21:08)
[2018-05-19 06:18] LABS: BASOPHILS % (AUTO) 1.3 % (0.0-2.0); EOSINOPHILS % (AUTO) 12.6 % (0.0-3.0); HEMATOCRIT 38.4 % (42.0-52.0); HEMOGLOBIN 12.6 G/DL (14.2-18.0); LYMPHOCYTES % (AUTO) 26.8 % (20.0-45.0); MEAN CORPUSCULAR VOLUME 87 FL (80-99); MONOCYTES % (AUTO) 7.4 % (1.0-10.0); PLATELET COUNT 170 K/UL (150-450); RED BLOOD COUNT 4.39 M/UL (4.70-6.10); RED CELL DISTRIBUTION WIDTH 13.8 % (11.6-14.8); WHITE BLOOD COUNT 7.9 K/UL (4.8-10.8)
[2018-05-19 06:28] LABS: INR 1.3 (0.9-1.1)
[2018-05-19 06:48] LABS: ALANINE AMINOTRANSFERASE 51 U/L (12-78); ALBUMIN 2.4 G/DL (3.4-5.0); ALBUMIN/GLOBULIN RATIO 0.5 (1.0-2.7); ALKALINE PHOSPHATASE 416 U/L (46-116); ANION GAP 11 mmol/L (5-15); ASPARTATE AMINO TRANSFERASE 63 U/L (15-37); BILIRUBIN,TOTAL 0.7 MG/DL (0.2-1.0); BLOOD UREA NITROGEN 8 mg/dL (7-18); CALCIUM 8.5 MG/DL (8.5-10.1); CARBON DIOXIDE 20 MMOL/L (21-32); CHLORIDE 109 MMOL/L (98-107); CREATININE 0.6 MG/DL (0.55-1.30); PHOSPHORUS 2.7 MG/DL (2.5-4.9); POTASSIUM 3.2 MMOL/L (3.5-5.1); SODIUM 140 MMOL/L (136-145)
--- NOTE | 2018-05-19 06:56 | NUR ---
NURSE NOTES: Informed Dr. Rudd regarding patients Potassium of 3.2 and Albumin of 2.4 this AM. Awaiting new orders or further instructions. Will endorse to incoming nurse.
[2018-05-19] MEDS: Albuterol/Ipratropium 3ml neb HHN SCH ×3 (07:06→22:49)
--- NOTE | 2018-05-19 07:27 | NUR ---
HAND-OFF: Report given to GEOVANNA Tatum. Patient is stable.
--- NOTE | 2018-05-19 07:28 | NUR ---
NURSE NOTES: RECEIVE PATIENT FROM Chet WICK RN. PATIENT IS LYING IN BED, ABLE TO OPEN EYES. HOOKED TO SENIOR PATROL AGENT. TRACH TO VENT. PORTEX 7. VENT SETTINGS AC 14, TV 600, FIO2 35%, PEEP 5. NO SIGNS OF DISTRESS. WITH G TUBE, DRY AND INTACT. NPO FOR PROCEDURE TODAY. NOTED SKIN ALTERATION. WITH ORDER TO INSERT ONCE RETAINING URINE. STILL ON CONDOM CATH. RECTAL TUBE NOTED. IV ON L FA G20, RUNNING IVF D5 1/2 NS AT 75CC/HR. CALL LIGHT WITHIN REACH. BED AT LOWEST POSITION. WILL CONTINUE TO MONITOR.
[2018-05-19 08:00] VITALS: BP 127/80
[2018-05-19] MEDS ORDERED: Propofol 200mg/20ml IV ONE (09:00)
[2018-05-19] MEDS ORDERED: Lidocaine 1% MPF 10mg/ml 5ml ONE (09:00)
--- NOTE | 2018-05-19 09:25 | Pre-Procedure Note/Attestation ---
Pre-Procedure Note/Attestation Complete Prior to Procedure Planned Procedure: not applicable Procedure Narrative: egd Indications for Procedure Pre-Operative Diagnosis: gib Attestation I attest that I discussed the nature of the procedure; its benefits; risks and complications; and alternatives (and the risks and benefits of such alternatives ), prior to the procedure, with the patient (or the patient's legal marketing sales representative). I attest that, if there was a reasonable possibility of needing a blood transfusion, the patient (or the patient's legal marketing sales representative) was given the [facility] standardized written summary, pursuant to the [place] Norma Blood Safety Act ([place] Health and Safety Code # 1645, as amended). I attest that I re-evaluated the patient just prior to the surgery and that there has been no change in the patient's H&P, except as documented below: Gaurav Rosas MD May 19, 2018 09:25
--- NOTE | 2018-05-19 09:25 | NUR ---
RADIOLOGY DEPT CHEST X-RAY DONE.-P.DYE
--- NOTE | 2018-05-19 09:39 | Endoscopy Procedure Note ---
Endoscopy Procedure Note General Indication for Procedure: gib Procedures Performed: EGD Operative Findings/Diagnosis: gastritis Specimen: yes Pt Tolerated Procedure Well: Yes Estimated Blood Loss: none Anesthesia Anesthesiologist: ely Anesthesia: MAC Inserted Devices Implant(s) used?: No GI Core Measures 50 yrs or older w/o bx or poly: Not Applicable 10yrs. F/U not recommended: Not Applicable Gaurav Rosas MD May 19, 2018 09:39
--- NOTE | 2018-05-19 10:25 | Immediate Post-Op Evaluation ---
Immediate Post-Op Evalulation Immediate Post-Op Evalulation Procedure: egd w/bx, gtube adjustment Date of Evaluation: May 19, 2018 Time of Evaluation: 09:52 IV Fluids: 150ml 0.9ns Blood Products: none Estimated Blood Loss: negligible Blood Pressure Systolic: 106 Blood Pressure Diastolic: 69 Pulse Rate: 69 Respiratory Rate: 14 O2 Sat by Pulse Oximetry: 99 Temperature (Fahrenheit): 97.7 Pain Score (1-10): 0 Nausea: No Vomiting: No Complications none Patient Status: awake, reacts, patent, ventilated Hydration Status: adequate Drug: Sangita Davenport MD May 19, 2018 10:24
--- NOTE | 2018-05-19 10:29 | 48 Hour Post Anesthesia Eval ---
Post Anesthesia Evaluation Procedure: egd w/bx, gtube adjustment Date of Evaluation: May 19, 2018 Time of Evaluation: 09:54 Blood Pressure Systolic: 107 0: 67 Pulse Rate: 68 Respiratory Rate: 14 Temperature (Fahrenheit): 97.7 O2 Sat by Pulse Oximetry: 100 Airway: patent Nausea: No Vomiting: No Pain Intensity: 0 Hydration Status: adequate Cardiopulmonary Status: stable Mental Status/LOC: patient returned to baseline Post-Anesthesia Complications: none Follow-up care needed: N/A Sangita Vigil MD May 19, 2018 10:29
--- NOTE | 2018-05-19 11:08 | Diagnostic Imaging Report ---
Indication: Dyspnea Comparison: 05/18/2018 A single view chest radiograph was obtained. Findings: Tracheostomy is again noted. Pulmonary vascularity and interstitium appear more prominent today. Basilar lung disease and parenchymal opacities noted unchanged. IMPRESSION: Slightly worsening interstitial edema. Persistent basilar parenchymal densities. Pneumonia and other possibilities suggested
--- NOTE | 2018-05-19 11:45 | Infectious Diseases Prog Note ---
Assessment/Plan Assessment/Plan Abx: None Assessment: Recurrent coffee ground emesis -hx on 02/2017 -EGD 01/2017: gastritis; on coumadin Mild Leukocytosis- SP Afebrile Probable Asp PNA -05/19 CXR: Slightly worsening interstitial edema.Persistent basilar parenchymal densities. Pneumonia and other possibilities suggested -05/17 CXR: There is increasing left basilar opacity, likely reflecting increased pleural fluid, possibly with some underlying atelectasis or consolidation as well. -CXR: Bibasilar opacities. Findings may be inflammatory or infectious. 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 HUONG could not be done History of chronically elevated alkaline phosphatase CVA with anoxic brain injury Sacral decubitus. Ventilator-dependent respiratory failure. History of trach and PEG placement. COPD. Esophagitis, Hx EGD : . Minimum distal esophagitis. Gastritis, status post biopsy. 01/23 Diabetes. Anxiety. Anemia. Plan: -Cont empiric Cefepime and Flagyl #2 to cover for aspiration PNA -f/u cx -Monitor CBC/CMP, temperatures Thank you for this consultation. Will continue to follow along with you. Discussed with RN. Subjective Allergies: Coded Allergies: OXYTETRACYCLINE (Unverified Allergy, Unknown, 09/05/13) PENICILLINS (Unverified Allergy, Unknown, 06/11/17) Tolerated one dose of Cefepime 06/07/17 Tolerated Cefdinir 06/10/17 Uncoded Allergies: PLASTIC TAPE (Allergy, Mild, ITCHINESS, 08/08/15) MEDICAL TAPE (Allergy, Unknown, 12/10/16) Subjective afebrile leukocytosis resolved Objective Vital Signs Last 24 Hour Vital Signs Date Time Temp Pulse Resp B/P (MAP) Pulse Ox O2 Delivery O2 Flow Rate FiO2 05/19/18 10:48 84 24 35 05/19/18 10:29 68 14 100 05/19/18 10:24 69 14 99 05/19/18 09:10 92 14 35 05/19/18 08:00 97.7 65 14 127/80 (96) 100 05/19/18 08:00 63 05/19/18 08:00 35 05/19/18 08:00 Mechanical Ventilator 05/19/18 07:22 62 14 100 Mechanical Ventilator 35 05/19/18 07:06 60 15 35 05/19/18 07:05 60 14 100 Mechanical Ventilator 35 05/19/18 05:08 62 14 35 05/19/18 04:00 35 05/19/18 04:00 98.4 59 14 115/82 (93) 100 05/19/18 04:00 Mechanical Ventilator 05/19/18 03:25 65 05/19/18 03:13 61 14 35 05/19/18 01:03 67 14 35 05/19/18 00:00 Mechanical Ventilator 05/19/18 00:00 98.6 67 14 106/73 (84) 99 05/18/18 23:30 67 05/18/18 23:26 70 14 100 Mechanical Ventilator 35 05/18/18 23:13 64 14 35 05/18/18 23:12 64 14 100 Mechanical Ventilator 35 05/18/18 20:53 68 14 35 05/18/18 20:10 66 05/18/18 20:00 35 05/18/18 20:00 Mechanical Ventilator 05/18/18 20:00 98.7 64 14 102/74 (83) 100 05/18/18 19:12 65 14 35 05/18/18 17:20 80 16 35 05/18/18 16:00 66 05/18/18 16:00 Mechanical Ventilator 05/18/18 16:00 35 05/18/18 16:00 99.0 70 14 97/70 (79) 99 05/18/18 15:27 69 14 100 Mechanical Ventilator 35 05/18/18 15:17 76 16 99 Mechanical Ventilator 35 05/18/18 15:17 76 16 35 05/18/18 13:24 69 14 35 05/18/18 12:00 98.8 77 14 97/69 (78) 99 2/26/19 12:00 Mechanical Ventilator 05/18/18 12:00 35 Height (Feet): 5 Height (Inches): 6.00 Weight (Pounds): 155 Objective Status: obtunded Condition: critical HEENT: atraumatic Lungs: chest wall tender Heart: HR/BP unstable Abdomen: soft, active bowel sounds Extremities: no C/C/E Microbiology Date/Time Source Procedure Growth Status 05/16/18 16:00 Stool Clostridium difficile Toxin Assay - Final Complete Laboratory Tests Test 05/19/18 00:11 05/19/18 04:20 Urine Color Yellow Urine Appearance Slightly cloudy Urine pH 7 (4.5-8.0) Urine Specific [place] 1.010 (1.005-1.035) Urine Protein 2+ (NEGATIVE) H Urine Glucose (UA) Negative (NEGATIVE) Urine Ketones Negative (NEGATIVE) Urine Blood 2+ (NEGATIVE) H Urine Nitrite Negative (NEGATIVE) Urine Bilirubin Negative (NEGATIVE) Urine Urobilinogen 4 MG/DL (0.0-1.0) H Urine Leukocyte Esterase 3+ (NEGATIVE) H Urine RBC 0-2 /HPF (0 - 0) H Urine WBC 40-60 /HPF (0 - 0) H Urine Squamous Epithelial Cells None /LPF (NONE/OCC) Urine Bacteria Many /HPF (NONE) H White Blood Count 7.9 K/UL (4.8-10.8) Red Blood Count 4.39 M/UL (4.70-6.10) L Hemoglobin 12.6 G/DL (14.2-18.0) L Hematocrit 38.4 % (42.0-52.0) L Mean Corpuscular Volume 87 FL (80-99) Mean Corpuscular Hemoglobin 28.7 PG (27.0-31.0) Mean Corpuscular Hemoglobin Concent 32.9 G/DL (32.0-36.0) Red Cell Distribution Width 13.8 % (11.6-14.8) Platelet Count 170 K/UL (150-450) Mean Platelet Volume 9.3 FL (6.5-10.1) Neutrophils (%) (Auto) 52.0 % (45.0-75.0) Lymphocytes (%) (Auto) 26.8 % (20.0-45.0) Monocytes (%) (Auto) 7.4 % (1.0-10.0) Eosinophils (%) (Auto) 12.6 % (0.0-3.0) H Basophils (%) (Auto) 1.3 % (0.0-2.0) Prothrombin Time 14.0 SEC (9.30-11.50) H Prothromb Time International Ratio 1.3 (0.9-1.1) H Activated Partial Thromboplast Time 35 SEC (23-33) H Sodium Level 140 MMOL/L (136-145) Potassium Level 3.2 MMOL/L (3.5-5.1) L Chloride Level 109 MMOL/L (98-107) H Carbon Dioxide Level 20 MMOL/L (21-32) L Anion Gap 11 mmol/L (5-15) Blood Urea Nitrogen 8 mg/dL (7-18) Creatinine 0.6 MG/DL (0.55-1.30) Estimat Glomerular Filtration Rate > 60 mL/min (>60) Glucose Level 102 MG/DL (74-106) Calcium Level 8.5 MG/DL (8.5-10.1) Phosphorus Level 2.7 MG/DL (2.5-4.9) Magnesium Level 1.8 MG/DL (1.8-2.4) Total Bilirubin 0.7 MG/DL (0.2-1.0) Aspartate Amino Transf (AST/SGOT) 63 U/L (15-37) H Alanine Aminotransferase (ALT/SGPT) 51 U/L (12-78) Alkaline Phosphatase 416 U/L (46-116) H Pro-B-Type Natriuretic Peptide 422 pg/mL (0-125) H Total Protein 7.3 G/DL (6.4-8.2) Albumin 2.4 G/DL (3.4-5.0) L Globulin 4.9 g/dL Albumin/Globulin Ratio 0.5 (1.0-2.7) L Current Medications Medications (Trade) Dose Ordered Sig/Sima Route PRN Reason Start Time Stop Time Status Last Admin Dose Admin Acetaminophen (Tylenol) 650 mg Q4H PRN ORAL fever 05/15/18 22:30 06/14/18 22:29 Acetaminophen/ Hydrocodone Bitart ([place] 10/325) 1 tab Q12HR PRN GT For Pain 05/15/18 22:30 05/22/18 22:29 Al Hydroxide/Mg Hydroxide (Mylanta II) 30 ml Q6H PRN ORAL dyspepsia 05/15/18 22:30 06/14/18 22:29 Albuterol/ Ipratropium (Albuterol/ Ipratropium) 3 ml Q8HRT HHN 05/16/18 07:00 05/21/18 06:59 05/19/18 07:06 Atorvastatin Calcium (Lipitor) 10 mg BEDTIME GT 05/16/18 21:00 06/15/18 20:59 05/18/18 21:22 Cefepime HCl 1 gm/ Dextrose 55 ml @ 110 mls/hr Q12H IVPB 05/18/18 14:00 05/25/18 13:59 05/19/18 01:28 Dextrose (Dextrose 50%) 25 ml Q30M PRN IV Hypoglycemia 05/18/18 18:45 06/17/18 18:44 Dextrose (Dextrose 50%) 50 ml Q30M PRN IV Hypoglycemia 05/18/18 18:45 06/17/18 18:44 Dextrose/Sodium Chloride 1,000 ml @ 75 mls/hr [id number] IV 05/15/18 22:19 06/14/18 22:18 05/19/18 06:00 Diphenhydramine HCl (Benadryl) 25 mg Q6H PRN ORAL Itching/Pruritis 05/15/18 22:30 06/14/18 22:29 Insulin Aspart (NovoLOG) Q6HR SUBQ 05/19/18 00:00 06/18/18 00:00 Lansoprazole (Prevacid) 30 mg BID GT 05/17/18 18:00 06/15/18 17:59 05/19/18 08:39 Loperamide HCl (Imodium) 2 mg Q6H PRN GT Diarrhea 05/17/18 19:00 06/16/18 18:59 05/17/18 19:19 Metronidazole (Flagyl) 500 mg Q8HR ORAL 05/18/18 14:00 05/25/18 13:59 05/18/18 21:22 Morphine Sulfate (Morphine Sulfate) 2 mg EVERY 4 HOURS PRN IVP severe Pain (Pain Scale 7-10) 05/15/18 22:30 05/22/18 22:29 Nitroglycerin (Ntg) 0.4 mg Q5M X 3 DOSES PRN SL Prn Chest Pain 05/15/18 22:30 06/14/18 22:29 Ondansetron HCl (Zofran) 4 mg Q6H PRN IVP Nausea & Vomiting 05/15/18 22:30 06/14/18 22:29 Polyethylene Glycol (Miralax) 17 gm HSPRN PRN ORAL Constipation 05/15/18 22:30 06/14/18 22:29 Potassium Chloride 100 ml @ 100 mls/hr Q1HR IVPB 05/19/18 11:00 05/19/18 13:59 05/19/18 11:04 Nanci Kline M.D. May 19, 2018 11:45
--- NOTE | 2018-05-19 11:47 | Pulmonolgy Critical Care Note ---
Critical Care - Asmt/Plan Problems: (1) Gastrointestinal hemorrhage (2) Sepsis (3) Chronic respiratory failure (4) Feeding by G-tube (5) History of CVA (cerebrovascular accident) Respiratory: monitor respiratory rate, adjust FIO2, CXR Cardiac: d/c site monitor Renal: F/U I&O, keep IV fluid Infectious Disease: check cultures, continue antibiotics Gastrointestinal: continue feedings/current rate, hold feedings Endocrine: check HgA1C, continue sliding scale insulin Hematologic: monitor H/H, transfuse if hgb<8.5 Neurologic: keep patient comfortable Prophylaxis: Protonix Notes Reviewed: powerhouse mechanic, renal Discussed with: nurses, behavioral health case managerequipment manager - Objective Last 24 Hour Vital Signs Date Time Temp Pulse Resp B/P (MAP) Pulse Ox O2 Delivery O2 Flow Rate FiO2 05/19/18 10:48 84 24 35 05/19/18 10:29 68 14 100 05/19/18 10:24 69 14 99 05/19/18 09:10 92 14 35 05/19/18 08:00 97.7 65 14 127/80 (96) 100 05/19/18 08:00 63 05/19/18 08:00 35 05/19/18 08:00 Mechanical Ventilator 05/19/18 07:22 62 14 100 Mechanical Ventilator 35 05/19/18 07:06 60 15 35 05/19/18 07:05 60 14 100 Mechanical Ventilator 35 05/19/18 05:08 62 14 35 05/19/18 04:00 35 05/19/18 04:00 98.4 59 14 115/82 (93) 100 05/19/18 04:00 Mechanical Ventilator 05/19/18 03:25 65 05/19/18 03:13 61 14 35 05/19/18 01:03 67 14 35 05/19/18 00:00 Mechanical Ventilator 05/19/18 00:00 98.6 67 14 106/73 (84) 99 05/18/18 23:30 67 05/18/18 23:26 70 14 100 Mechanical Ventilator 35 05/18/18 23:13 64 14 35 05/18/18 23:12 64 14 100 Mechanical Ventilator 35 05/18/18 20:53 68 14 35 05/18/18 20:10 66 05/18/18 20:00 35 05/18/18 20:00 Mechanical Ventilator 05/18/18 20:00 98.7 64 14 102/74 (83) 100 05/18/18 19:12 65 14 35 05/18/18 17:20 80 16 35 05/18/18 16:00 66 05/18/18 16:00 Mechanical Ventilator 05/18/18 16:00 35 05/18/18 16:00 99.0 70 14 97/70 (79) 99 05/18/18 15:27 69 14 100 Mechanical Ventilator 35 05/18/18 15:17 76 16 99 Mechanical Ventilator 35 05/18/18 15:17 76 16 35 05/18/18 13:24 69 14 35 05/18/18 12:00 98.8 77 14 97/69 (78) 99 05/18/18 12:00 Mechanical Ventilator 05/18/18 12:00 35 Status: awake Condition: critical HEENT: atraumatic Lungs: clear Heart: HR/BP stable, HR/BP unstable Abdomen: soft, active bowel sounds Extremities: edema Decubiti: location Micro: Microbiology Date/Time Source Procedure Growth Status 05/16/18 16:00 Stool Clostridium difficile Toxin Assay - Final Complete Accucheck: 87 Critical Care - Subjective ROS Limited/Unobtainable: Yes Condition: critical EKG Rhythm: Sinus Rhythm FI02: 35 Vent Support Breath Rate: 14 Vent Support Mode: AC Vent Tidal Volume: 600 Sputum Amount: Small PEEP: 5.0 PIP: 19 Fluids: d5 1/2 NS 75 cc/hour Tube Feeding Amount: 25 I&O: Intake and Output 05/18/18 05/19/18 19:00 07:00 Intake Total 1040 ml Output Total 300 ml 650 ml Balance -300 ml 390 ml IV Total 880 ml Tube Feeding 100 ml Other 60 ml Output Urine Total 300 ml 650 ml # Voids 1 CXR: RYAN Labs: Laboratory Tests Test 05/19/18 00:11 05/19/18 04:20 Urine Color Yellow Urine Appearance Slightly cloudy Urine pH 7 (4.5-8.0) Urine Specific [place] 1.010 (1.005-1.035) Urine Protein 2+ (NEGATIVE) H Urine Glucose (UA) Negative (NEGATIVE) Urine Ketones Negative (NEGATIVE) Urine Blood 2+ (NEGATIVE) H Urine Nitrite Negative (NEGATIVE) Urine Bilirubin Negative (NEGATIVE) Urine Urobilinogen 4 MG/DL (0.0-1.0) H Urine Leukocyte Esterase 3+ (NEGATIVE) H Urine RBC 0-2 /HPF (0 - 0) H Urine WBC 40-60 /HPF (0 - 0) H Urine Squamous Epithelial Cells None /LPF (NONE/OCC) Urine Bacteria Many /HPF (NONE) H White Blood Count 7.9 K/UL (4.8-10.8) Red Blood Count 4.39 M/UL (4.70-6.10) L Hemoglobin 12.6 G/DL (14.2-18.0) L Hematocrit 38.4 % (42.0-52.0) L Mean Corpuscular Volume 87 FL (80-99) Mean Corpuscular Hemoglobin 28.7 PG (27.0-31.0) Mean Corpuscular Hemoglobin Concent 32.9 G/DL (32.0-36.0) Red Cell Distribution Width 13.8 % (11.6-14.8) Platelet Count 170 K/UL (150-450) Mean Platelet Volume 9.3 FL (6.5-10.1) Neutrophils (%) (Auto) 52.0 % (45.0-75.0) Lymphocytes (%) (Auto) 26.8 % (20.0-45.0) Monocytes (%) (Auto) 7.4 % (1.0-10.0) Eosinophils (%) (Auto) 12.6 % (0.0-3.0) H Basophils (%) (Auto) 1.3 % (0.0-2.0) Prothrombin Time 14.0 SEC (9.30-11.50) H Prothromb Time International Ratio 1.3 (0.9-1.1) H Activated Partial Thromboplast Time 35 SEC (23-33) H Sodium Level 140 MMOL/L (136-145) Potassium Level 3.2 MMOL/L (3.5-5.1) L Chloride Level 109 MMOL/L (98-107) H Carbon Dioxide Level 20 MMOL/L (21-32) L Anion Gap 11 mmol/L (5-15) Blood Urea Nitrogen 8 mg/dL (7-18) Creatinine 0.6 MG/DL (0.55-1.30) Estimat Glomerular Filtration Rate > 60 mL/min (>60) Glucose Level 102 MG/DL (74-106) Calcium Level 8.5 MG/DL (8.5-10.1) Phosphorus Level 2.7 MG/DL (2.5-4.9) Magnesium Level 1.8 MG/DL (1.8-2.4) Total Bilirubin 0.7 MG/DL (0.2-1.0) Aspartate Amino Transf (AST/SGOT) 63 U/L (15-37) H Alanine Aminotransferase (ALT/SGPT) 51 U/L (12-78) Alkaline Phosphatase 416 U/L (46-116) H Pro-B-Type Natriuretic Peptide 422 pg/mL (0-125) H Total Protein 7.3 G/DL (6.4-8.2) Albumin 2.4 G/DL (3.4-5.0) L Globulin 4.9 g/dL Albumin/Globulin Ratio 0.5 (1.0-2.7) L Sagar Rudd MD May 19, 2018 11:47
[2018-05-19 12:00] VITALS: BP 103/69
--- NOTE | 2018-05-19 12:00 | NUR ---
NURSE NOTES: EGD DONE. VSS. TOLERATED PROCEDURE WELL. TUBE FEEDING STARTED. TOLERATED FEEDING. NO RESIDUAL NOTED. NO SIGNS OF DISTRESS. WILL CONTINUE TO MONITOR.
--- NOTE | 2018-05-19 13:09 | Internal Med Progress Note ---
Subjective Date of Service: May 19, 2018 Physician Name Samuel Caballero Attending Physician Boris Arevalo MD Current Medications Medications (Trade) Dose Ordered Sig/Sima Route PRN Reason Start Time Stop Time Status Last Admin Dose Admin Acetaminophen (Tylenol) 650 mg Q4H PRN ORAL fever 05/15/18 22:30 06/14/18 22:29 Acetaminophen/ Hydrocodone Bitart ([place] 10/325) 1 tab Q12HR PRN GT For Pain 05/15/18 22:30 05/22/18 22:29 Al Hydroxide/Mg Hydroxide (Mylanta II) 30 ml Q6H PRN ORAL dyspepsia 05/15/18 22:30 06/14/18 22:29 Albuterol/ Ipratropium (Albuterol/ Ipratropium) 3 ml Q8HRT HHN 05/16/18 07:00 05/21/18 06:59 05/19/18 07:06 Atorvastatin Calcium (Lipitor) 10 mg BEDTIME GT 05/16/18 21:00 06/15/18 20:59 05/18/18 21:22 Cefepime HCl 1 gm/ Dextrose 55 ml @ 110 mls/hr Q12H IVPB 05/18/18 14:00 05/25/18 13:59 05/19/18 01:28 Dextrose (Dextrose 50%) 25 ml Q30M PRN IV Hypoglycemia 05/18/18 18:45 06/17/18 18:44 Dextrose (Dextrose 50%) 50 ml Q30M PRN IV Hypoglycemia 05/18/18 18:45 06/17/18 18:44 Dextrose/Sodium Chloride 1,000 ml @ 75 mls/hr [id number] IV 05/15/18 22:19 06/14/18 22:18 05/19/18 06:00 Diphenhydramine HCl (Benadryl) 25 mg Q6H PRN ORAL Itching/Pruritis 05/15/18 22:30 06/14/18 22:29 Insulin Aspart (NovoLOG) Q6HR SUBQ 05/19/18 00:00 06/18/18 00:00 Lansoprazole (Prevacid) 30 mg BID GT 05/17/18 18:00 06/15/18 17:59 05/19/18 08:39 Loperamide HCl (Imodium) 2 mg Q6H PRN GT Diarrhea 05/17/18 19:00 06/16/18 18:59 05/17/18 19:19 Metronidazole 100 ml @ 100 mls/hr Q8HR IVPB 05/19/18 14:00 05/26/18 13:59 Morphine Sulfate (Morphine Sulfate) 2 mg EVERY 4 HOURS PRN IVP severe Pain (Pain Scale 7-10) 05/15/18 22:30 05/22/18 22:29 Nitroglycerin (Ntg) 0.4 mg Q5M X 3 DOSES PRN SL Prn Chest Pain 05/15/18 22:30 06/14/18 22:29 Ondansetron HCl (Zofran) 4 mg Q6H PRN IVP Nausea & Vomiting 05/15/18 22:30 06/14/18 22:29 Polyethylene Glycol (Miralax) 17 gm HSPRN PRN ORAL Constipation 05/15/18 22:30 06/14/18 22:29 Potassium Chloride 100 ml @ 100 mls/hr Q1HR IVPB 05/19/18 11:00 05/19/18 13:59 05/19/18 12:26 Allergies: Coded Allergies: OXYTETRACYCLINE (Unverified Allergy, Unknown, 09/05/13) PENICILLINS (Unverified Allergy, Unknown, 06/11/17) Tolerated one dose of Cefepime 06/07/17 Tolerated Cefdinir 06/10/17 Uncoded Allergies: PLASTIC TAPE (Allergy, Mild, ITCHINESS, 08/08/15) MEDICAL TAPE (Allergy, Unknown, 12/10/16) ROS Limited/Unobtainable: Yes Subjective 63 YO M admitted with coffee grounds emesis. Now pneumonia. Cover for Int Med- DR Peña. [place] Objective Last Vital Signs Date Time Temp Pulse Resp B/P (MAP) Pulse Ox O2 Delivery O2 Flow Rate FiO2 05/19/18 10:48 84 24 35 05/19/18 10:29 100 05/19/18 08:00 97.7 127/80 (96) 05/19/18 08:00 Mechanical Ventilator 05/16/18 16:00 35.0 Laboratory Tests Test 05/19/18 00:11 05/19/18 04:20 Urine Color Yellow Urine Appearance Slightly cloudy Urine pH 7 (4.5-8.0) Urine Specific [place] 1.010 (1.005-1.035) Urine Protein 2+ (NEGATIVE) H Urine Glucose (UA) Negative (NEGATIVE) Urine Ketones Negative (NEGATIVE) Urine Blood 2+ (NEGATIVE) H Urine Nitrite Negative (NEGATIVE) Urine Bilirubin Negative (NEGATIVE) Urine Urobilinogen 4 MG/DL (0.0-1.0) H Urine Leukocyte Esterase 3+ (NEGATIVE) H Urine RBC 0-2 /HPF (0 - 0) H Urine WBC 40-60 /HPF (0 - 0) H Urine Squamous Epithelial Cells None /LPF (NONE/OCC) Urine Bacteria Many /HPF (NONE) H White Blood Count 7.9 K/UL (4.8-10.8) Red Blood Count 4.39 M/UL (4.70-6.10) L Hemoglobin 12.6 G/DL (14.2-18.0) L Hematocrit 38.4 % (42.0-52.0) L Mean Corpuscular Volume 87 FL (80-99) Mean Corpuscular Hemoglobin 28.7 PG (27.0-31.0) Mean Corpuscular Hemoglobin Concent 32.9 G/DL (32.0-36.0) Red Cell Distribution Width 13.8 % (11.6-14.8) Platelet Count 170 K/UL (150-450) Mean Platelet Volume 9.3 FL (6.5-10.1) Neutrophils (%) (Auto) 52.0 % (45.0-75.0) Lymphocytes (%) (Auto) 26.8 % (20.0-45.0) Monocytes (%) (Auto) 7.4 % (1.0-10.0) Eosinophils (%) (Auto) 12.6 % (0.0-3.0) H Basophils (%) (Auto) 1.3 % (0.0-2.0) Prothrombin Time 14.0 SEC (9.30-11.50) H Prothromb Time International Ratio 1.3 (0.9-1.1) H Activated Partial Thromboplast Time 35 SEC (23-33) H Sodium Level 140 MMOL/L (136-145) Potassium Level 3.2 MMOL/L (3.5-5.1) L Chloride Level 109 MMOL/L (98-107) H Carbon Dioxide Level 20 MMOL/L (21-32) L Anion Gap 11 mmol/L (5-15) Blood Urea Nitrogen 8 mg/dL (7-18) Creatinine 0.6 MG/DL (0.55-1.30) Estimat Glomerular Filtration Rate > 60 mL/min (>60) Glucose Level 102 MG/DL (74-106) Calcium Level 8.5 MG/DL (8.5-10.1) Phosphorus Level 2.7 MG/DL (2.5-4.9) Magnesium Level 1.8 MG/DL (1.8-2.4) Total Bilirubin 0.7 MG/DL (0.2-1.0) Aspartate Amino Transf (AST/SGOT) 63 U/L (15-37) H Alanine Aminotransferase (ALT/SGPT) 51 U/L (12-78) Alkaline Phosphatase 416 U/L (46-116) H Pro-B-Type Natriuretic Peptide 422 pg/mL (0-125) H Total Protein 7.3 G/DL (6.4-8.2) Albumin 2.4 G/DL (3.4-5.0) L Globulin 4.9 g/dL Albumin/Globulin Ratio 0.5 (1.0-2.7) L Microbiology Date/Time Source Procedure Growth Status 05/16/18 16:00 Stool Clostridium difficile Toxin Assay - Final Complete Intake and Output 05/18/18 05/19/18 19:00 07:00 Intake Total 1040 ml Output Total 300 ml 650 ml Balance -300 ml 390 ml IV Total 880 ml Tube Feeding 100 ml Other 60 ml Output Urine Total 300 ml 650 ml # Voids 1 Objective General Appearance: WD/WN, no apparent distress, lethargic EENT: PERRL/EOMI, normal ENT inspection Neck: non-tender, normal alignment, supple, normal inspection Cardiovascular: normal peripheral pulses, normal rate, regular rhythm, no gallop/murmur, no JVD Respiratory/Chest: chest wall non-tender, respiratory distress, crackles/rales , rhonchi - bilaterally, expiratory wheezing Abdomen: normal bowel sounds, non tender, soft, no organomegaly, no mass Extremities: normal range of motion Edema: trace edema Neurologic: unresponsiveness Skin: normal pigmentation, warm/dry Assessment/Plan Problem List: (1) Coffee ground emesis Assessment & Plan: See GI note (2) Tracheostomy care (3) Ventilator dependence Assessment & Plan: Follow pulmonary recs (4) Gastrointestinal hemorrhage Assessment & Plan: Endoscopy scheduled for 05/19/18-see GI note (5) Chronic respiratory failure (6) Dysphagia (7) HTN (hypertension) (8) Cerebral vascular disease (9) Vegetative state (10) Feeding by G-tube (11) Pneumonia Assessment & Plan: Continue cefepime and flagyl for possible aspiration pneumonia. See ID note. Status: not improved Samuel aCballero MD May 19, 2018 13:09
--- NOTE | 2018-05-19 14:22 | NUR ---
RD ASSESSMENT & RECOMMENDATIONS SEE CARE ACTIVITY FOR COMPLETE ASSESSMENT DAILY ESTIMATED NEEDS: Needs based on Critical care, wound 64.5kg 22-30 kcals/kg 3345-6829 total kcals 1.25-2 g protein/kg 86-138 g total protein 25-30 mL/kg 3132-5562 total fluid mLs NUTRITION DIAGNOSIS: 1) Swallowing difficulty R/T respiratory status as evidenced by pt vent dep via trach, PEG dep, on TF. 2) Increased kcal/prot needs R/T wound healing as evidenced by pt admitted w/ multiple wounds, including partial thickness wound to medial /dorsal L foot, nonblanchable erythema to sacrococcygeal area and lumbar area, blood filled blister at L 1st metatarsal . CURRENT TF:Vital AF 1.2 @ 55ml/hr x 24 hrs ENTERAL NUTRITION RECOMMENDATIONS: Glucerna 1.2 @55ml x24 hrs + Prosource x1 to provide 1320ml, 1584kcal, 79g prot + 11g prot, 1063ml free H20 * Rec TF change to Glucerna 1.2: [employer] TF, h/o DM, elemental formula of Vital AF is not indicated. * Initiate Glucerna 1.2 @ 35ml/hr x 6 hrs, advance 10ml q 4-6 hrs as tolerated to goal rate. * Add Prosource 1 pack daily to meet est prot needs * HOB >30 degrees/ water flushes per MD ADDITIONAL RECOMMENDATIONS: 1) Per SNF: ht=65", db=729kab (wt obtained on 04/27/18) Rec to RECALIBRATE bedscale: w/ added P200 mattress 2) Wound healing: add Darryl 1pkt BID 3) Monitor lytes, replete as needed .
--- NOTE | 2018-05-19 15:45 | History and Physical Report ---
DATE OF ADMISSION: 05/17/2018 CHIEF COMPLAINT: The patient is a 63-year-old male who presents with chief complaint of coffee-ground emesis. HISTORY OF PRESENT ILLNESS: The patient is a resident of [facility]. The patient is in a persistent vegetative state and tracheostomy dependent. According to staff at [facility], the patient had coffee-grounds emesis on 05/15/2018. The patient was transported to [facility] emergency room for evaluation. The patient is admitted with gastrointestinal hemorrhage. REVIEW OF SYSTEMS: Unable to assess secondary to the patient's mental status. PAST MEDICAL HISTORY: Significant for: 1. Respiratory failure. 2. Chronic vent dependence. 3. Persistent vegetative state. PAST SURGICAL HISTORY: Significant for tracheostomy. CURRENT MEDICATIONS: 1. Tylenol 650 mg p.o. q.4 hours p.r.n. 2. Amantadine 100 mg per G-tube daily. 3. Vitamin C 500 mg per G-tube daily. 4. Aspirin 81 mg per G-tube daily. 5. Atorvastatin 20 mg per G-tube at bedtime. 6. Vitamin D 5000 units per G-tube daily. 7. Klonopin 0.5 mg per G-tube p.r.n. 8. Folic acid 1 mg per G-tube daily. 9. [place] 10/325 mg 1 tablet per G-tube twice daily p.r.n. 10. Lispro sliding scale. 11. Lorazepam 0.5 mg per G-tube q.6 hours p.r.n. 12. Midodrine 10 mg per G-tube q.8 hours. 13. Multivitamin per G-tube daily. 14. Omeprazole 20 mg per G-tube daily. 15. Zofran 4 mg per G-tube q.6 hours p.r.n. 16. Potassium chloride 40 mEq per G-tube daily. 17. Spironolactone/hydrochlorothiazide 25/25 per 1 tablet per G-tube daily. ALLERGIES: To surgical tape, oxytetracycline, penicillin. SOCIAL HISTORY: The patient is . The patient is a resident of [facility] as above. The patient denies tobacco or alcohol use. PHYSICAL EXAMINATION: VITAL SIGNS: Temperature 97.9, respirations 14, pulse 86, blood pressure 100/77. GENERAL: The patient is thin appearing, male, who is nonverbal. HEENT: Eyes, pupils equal and responsive to light and accommodation. Extraocular movements are intact. NECK: With tracheostomy in place. CHEST: Diffuse wheezes bilaterally with crackles on bilateral bases. ABDOMEN: Soft, nontender, nondistended. Positive bowel sounds. No evidence of hepatosplenomegaly. Currently, no rebound or guarding. CARDIOVASCULAR: Regular rhythm. Regular rate. S1 and S2 are normal without murmurs, rubs, or gallops. EXTREMITIES: Negative for clubbing, cyanosis, or edema. NEUROLOGICAL: Unable to assess. LABORATORY STUDIES: WBC 12.5, hemoglobin 17.5, hematocrit 53.2, platelets 259,000. Sodium 138, potassium 4.4, chloride 104, CO2 27, BUN 24, creatinine 0.8, glucose 109. Troponin 0.0. ASSESSMENT: This is a 63-year-old male. 1. Gastrointestinal hemorrhage. 2. Respiratory failure. 3. Chronic vent dependence. 4. Tracheostomy in situ. 5. Persistent vegetative state. 6. Hypertension. 7. Dysphagia. TREATMENT: 1. Gastrointestinal hemorrhage. A Gastroenterology consultation has been obtained with Dr. Gaurav Rosas. We will follow recommendations of Gastroenterology. 2. Respiratory failure/vent dependence. A Pulmonary consultation has been obtained with Dr. Sagar Rudd. 3. Tracheostomy care. 4. Persistent vegetative state. 5. Hypertension. Continue spironolactone/hydrochlorothiazide as above. 6. Dysphagia. The patient is status post G-tube placement. Samuel Caballero M.D. DR: IMANI JOB#: [id number] CC:
--- NOTE | 2018-05-19 15:45 | Procedure Note ---
DATE OF PROCEDURE: 05/19/2018 SURGEON: Gaurav Rosas M.D. PROCEDURE: Upper endoscopy with biopsy. ANESTHESIA: Per Dr. [place]. INSTRUMENT: Olympus adult flexible upper endoscope. INDICATION: GI bleeding. REASON FOR PROCEDURE: The procedure, risks, benefits, and possible consequences, including hemorrhage, aspiration, perforation and infection, and alternative treatments, were explained to the patient/legal guardian by Dr. Gaurav Rosas and the patient/legal guardian understood and accepted these risks. DESCRIPTION OF PROCEDURE: After informed consent was obtained and the patient was adequately sedated, the Olympus upper endoscope was advanced from mouth into the second portion of the duodenum and retroflexion was performed in the stomach. The patient has evidence of G-tube in place. We pushed the G-tube in to see if there is any source of ulceration or bleeding from the G-tube site, which was none. The patient had evidence of diffuse gastritis. Random biopsy from gastric biopsy was obtained to rule out H. pylori infection. There was no evidence of any active upper GI bleeding at this time. No evidence of any esophagitis or esophageal varices. No evidence of any gastric ulceration. No obvious duodenal ulceration. At this time, the upper endoscope was retrieved and the procedure was terminated. SUMMARY OF FINDINGS: Gastritis, otherwise normal upper endoscopic examination and no evidence of any acute upper GI bleeding at this time. PLAN: 1. Resume tube feeding. 2. Monitor H and H, transfuse as needed. 3. Continue to monitor H and H and if there is any signs or symptoms of GI bleeding, we will recommend colonoscopy. I want to thank, Dr. Boris Arevalo, for this kind referral. Gaurav Rosas M.D. DR: JB JOB#: [id number] CC: Linsey Arevalo M.D.; Fax#: [phone]
[2018-05-19] MEDS ORDERED: D5 1/2NS 1000ml IV ONE ×2 (15:51→18:13)
[2018-05-19] MEDS ORDERED: NS Irrig 1000ml ONE (15:51)
[2018-05-19] MEDS ORDERED: Sterile Water Irrig 1000ml IRRIG ONE (15:51)
[2018-05-19 16:00] VITALS: BP 108/78
--- NOTE | 2018-05-19 17:34 | NUR ---
CASE MANAGEMENT: REVIEW 05/19/2018 SI: ACUTE GI BLEED. T 97.9 HR 74 RR 20 B/P 103/69 SATS 100% ON MECH VENT FiO2 35 K 3.2 CL 109 CO2 20 AST 63 ALP 416 IS: K-DUR PO QD D5 1/2 IVF @75ML/HR LIPITOR GT QHS CEFEPIME IV Q12H FLAGYL IV Q8H STEP DOWN STATUS DCP: PATIENT IS FROM [facility] PLAN: EGD SUMMARY OF FINDINGS: Gastritis, otherwise normal upper endoscopic examination and no evidence of any acute upper GI bleeding at this time.
--- NOTE | 2018-05-19 18:00 | NUR ---
NURSE NOTES: PATIENT KEPT CLEAN AND DRY. NO SIGNS OF DISTRESS. WILL CONTINUE TO MONITOR.
[2018-05-19] MEDS ORDERED: Tubing IV Secondary IV ONE (18:13)
--- NOTE | 2018-05-19 19:20 | NUR ---
NURSE NOTES: Pt report received from Deepti AUSTIN. pt was found in room comfortably sleeping. No respiratory distress noted. Reported vent setting are; Portex 7, vent settings Ac 14, Tidal Vol 600, Fio2 35%, Peep 5. O2 percentage is 99%. Cardiac parameters is within normal limits. S1, S2 noted. G tube is patented (residual is noted) and flushing. Feeding pump was increased to 40ML/HR. condom cath is intact and draining. bed in in lowest position. bed alarm is active. will continue plan of care.
--- NOTE | 2018-05-19 19:23 | NUR ---
HAND-OFF: Report given to Chet Fuentes RN.
--- NOTE | 2018-05-19 19:55 | General Progress Note ---
Assessment/Plan Assessment/Plan Assessment and recs # Anemia likely due to gastrointestinal hemorrhage --> at this time the h/h is stable --> anemia panel reviewed, pt has acd --> low threshold for gi eval --> Dr. Rudd on board, currently patient in sdu # Leukocytosis is likely related to reactive process from anmeia --> trend as needed currently improving --> low threshold for starting abx # Probable HCAP vs Asp PNA - CXR: Patchy bibasilar airspace opacities, left greater than right, most concerning for infiltrate/pneumonia. --> in the past received abx, low threshold for id eval, abx # SOB - cultures currently ngtd # Elevated LFts ==> trend, as per gi # HARDEEP, resolved # Chronic resp failure on trach/vent # Dysphagia s/p GT # Recent Fungemia Shelli tropicalis 02/2017, S/p Rx # Hx of persistent low grade CONS bacteremia 01/2017- SP Rx for presumed endocarditis/endovascular source --> Bcx 01/21 04/26 CONS, 01/23 + 03/26, 01/26, +03/26 --> TTE very limited, no vegetations seen. HUONG could not be done last admission Subjective Constitutional: Denies: no symptoms, chills, diaphoresis, fever, malaise, weakness, other HEENT: Denies: no symptoms, eye pain, blurred vision, tearing, double vision, ear pain, ear discharge, nose pain, nose congestion, throat pain, throat swelling, mouth pain, mouth swelling, other Cardiovascular: Denies: no symptoms, chest pain, edema, irregular heart rate, lightheadedness, palpitations, syncope, other Respiratory: Denies: no symptoms, cough, orthopnea, shortness of breath, SOB with excertion, SOB at rest, sputum, stridor, wheezing, other Gastrointestinal/Abdominal: Denies: no symptoms, abdomen distended, abdominal pain, black stools, tarry stools, blood in stool, constipated, diarrhea, difficulty swallowing, nausea, poor appetite, poor fluid intake, rectal bleeding , vomiting, other Genitourinary: Denies: no symptoms, burning, discharge, frequency, flank pain, hematuria, incontinence, pain, urgency, other Neurologic/Psychiatric: Denies: no symptoms, anxiety, depressed, emotional problems, headache, numbness, paresthesia, pre-existing deficit, seizure, tingling, tremors, weakness, other Endocrine: Denies: no symptoms, excessive sweating, flushing, intolerance to cold, intolerance to heat, increased hunger, increased thirst, increased urine, unexplained weight gain, unexplained weight loss, other Hematologic/Lymphatic: Denies: no symptoms, anemia, easy bleeding, easy bruising, other Allergies: Coded Allergies: OXYTETRACYCLINE (Unverified Allergy, Unknown, 09/05/13) PENICILLINS (Unverified Allergy, Unknown, 06/11/17) Tolerated one dose of Cefepime 06/07/17 Tolerated Cefdinir 06/10/17 Uncoded Allergies: PLASTIC TAPE (Allergy, Mild, ITCHINESS, 08/08/15) MEDICAL TAPE (Allergy, Unknown, 12/10/16) Subjective 05/17: seen by bedside, Trach to Vent dependent, on g-tube, scheduled EGD tomorrow,no events, cbc reviewed. 05/18: EGD rescheduled until tomorrow,wbc 14 05/19: egd w/bx, gtube adjustment done today, no events Objective Last 24 Hour Vital Signs Date Time Temp Pulse Resp B/P (MAP) Pulse Ox O2 Delivery O2 Flow Rate FiO2 05/19/18 19:05 75 15 35 05/19/18 17:00 58 14 35 05/19/18 16:00 35 05/19/18 16:00 63 05/19/18 16:00 98.1 62 14 108/78 (88) 99 05/19/18 16:00 Mechanical Ventilator 05/19/18 15:33 67 14 100 Mechanical Ventilator 35 05/19/18 15:24 70 14 35 05/19/18 15:23 70 14 100 Mechanical Ventilator 35 05/19/18 13:15 65 14 35 05/19/18 12:00 35 05/19/18 12:00 97.9 74 20 103/69 (80) 100 05/19/18 12:00 Mechanical Ventilator 05/19/18 11:27 70 05/19/18 10:48 84 24 35 05/19/18 10:29 68 14 100 05/19/18 10:24 69 14 99 05/19/18 09:10 92 14 35 05/19/18 08:00 97.7 65 14 127/80 (96) 100 05/19/18 08:00 63 05/19/18 08:00 35 05/19/18 08:00 Mechanical Ventilator 05/19/18 07:22 62 14 100 Mechanical Ventilator 35 05/19/18 07:06 60 15 35 05/19/18 07:05 60 14 100 Mechanical Ventilator 35 05/19/18 05:08 62 14 35 05/19/18 04:00 35 05/19/18 04:00 98.4 59 14 115/82 (93) 100 05/19/18 04:00 Mechanical Ventilator 05/19/18 03:25 65 05/19/18 03:13 61 14 35 05/19/18 01:03 67 14 35 05/19/18 00:00 Mechanical Ventilator 05/19/18 00:00 98.6 67 14 106/73 (84) 99 05/18/18 23:30 67 05/18/18 23:26 70 14 100 Mechanical Ventilator 35 05/18/18 23:13 64 14 35 05/18/18 23:12 64 14 100 Mechanical Ventilator 35 05/18/18 20:53 68 14 35 05/18/18 20:10 66 05/18/18 20:00 35 05/18/18 20:00 Mechanical Ventilator 05/18/18 20:00 98.7 64 14 102/74 (83) 100 Intake and Output 05/18/18 05/19/18 18:59 06:59 Intake Total 75 ml 965 ml Output Total 300 ml 650 ml Balance -225 ml 315 ml IV Total 75 ml 805 ml Tube Feeding 100 ml Other 60 ml Output Urine Total 300 ml 650 ml # Voids 1 Laboratory Tests 05/19/18 00:11: Urine Color Yellow, Urine Appearance Slightly cloudy, Urine pH 7, Urine Specific [place] 1.010, Urine Protein 2+H, Urine Glucose (UA) Negative, Urine Ketones Negative, Urine Blood 2+H, Urine Nitrite Negative, Urine Bilirubin Negative, Urine Urobilinogen 4H, Urine Leukocyte Esterase 3+H, Urine RBC 0-2H, Urine WBC 40-60H, Urine Squamous Epithelial Cells None, Urine Bacteria ManyH 05/19/18 04:20: White Blood Count 7.9, Red Blood Count 4.39L, Hemoglobin 12.6L, Hematocrit 38.4L , Mean Corpuscular Volume 87, Mean Corpuscular Hemoglobin 28.7, Mean Corpuscular Hemoglobin Concent 32.9, Red Cell Distribution Width 13.8, Platelet Count 170, Mean Platelet Volume 9.3, Neutrophils (%) (Auto) 52.0, Lymphocytes (% ) (Auto) 26.8, Monocytes (%) (Auto) 7.4, Eosinophils (%) (Auto) 12.6H, Basophils (%) (Auto) 1.3, Prothrombin Time 14.0H, Prothromb Time International Ratio 1.3H, Activated Partial Thromboplast Time 35H, Sodium Level 140, Potassium Level 3.2L, Chloride Level 109H, Carbon Dioxide Level 20L, Anion Gap 11, Blood Urea Nitrogen 8, Creatinine 0.6, Estimat Glomerular Filtration Rate > 60, Glucose Level 102, Calcium Level 8.5, Phosphorus Level 2.7, Magnesium Level 1.8, Total Bilirubin 0.7, Aspartate Amino Transf (AST/SGOT) 63H, Alanine Aminotransferase (ALT/SGPT) 51, Alkaline Phosphatase 416H, Pro-B-Type Natriuretic Peptide 422H, Total Protein 7.3, Albumin 2.4L, Globulin 4.9, Albumin /Globulin Ratio 0.5L Height (Feet): 5 Height (Inches): 6.00 Weight (Pounds): 155 Objective Sp02 EP Interpretation: reviewed General Appearance: no apparent distress Head: normocephalic, atraumatic Eyes: bilateral eye PERRL ENT: dry mucus membranes Neck: supple, other - Tracheostomy in place no crepitus Respiratory: no retraction, no accessory muscle use, crackles - Bilaterally Cardiovascular: regular rate, rhythm Gastrointestinal: non tender, soft Musculoskeletal: other - Patient chronically debilitated, Contracted in upper and lower extremity Neurologic: responsive Alexi Bazan MD May 19, 2018 19:55
[2018-05-19 20:00] VITALS: BP 114/82
[2018-05-20] VITALS: BP 111/75
[2018-05-20] MEDS: Cefepime HCl 1 GM in D5W 55 ML IVPB SCH ×2 (01:58→14:00)
--- NOTE | 2018-05-20 03:00 | NUR ---
NURSE NOTES: Pt reassessment done at this time. Pt bed bath completed. no respiratory distress noted at this time. Feeding rate increased to 50mL/Hr. no residuals from GT noted.
[2018-05-20 04:00] VITALS: BP 135/85
[2018-05-20 04:58] LABS: EOSINOPHILS % (AUTO) 13.2 % (0.0-3.0); HEMATOCRIT 43.1 % (42.0-52.0); HEMOGLOBIN 14.2 G/DL (14.2-18.0); LYMPHOCYTES % (AUTO) 25.9 % (20.0-45.0); MEAN CORPUSCULAR VOLUME 87 FL (80-99); MONOCYTES % (AUTO) 7.9 % (1.0-10.0); PLATELET COUNT 184 K/UL (150-450); RED BLOOD COUNT 4.96 M/UL (4.70-6.10); RED CELL DISTRIBUTION WIDTH 13.6 % (11.6-14.8); WHITE BLOOD COUNT 6.9 K/UL (4.8-10.8)
[2018-05-20 05:09] LABS: INR 1.4 (0.9-1.1)
[2018-05-20 05:13] LABS: PHOSPHORUS 2.8 MG/DL (2.5-4.9)
[2018-05-20 05:25] LABS: ALANINE AMINOTRANSFERASE 55 U/L (12-78); ALBUMIN 2.6 G/DL (3.4-5.0); ALBUMIN/GLOBULIN RATIO 0.5 (1.0-2.7); ALKALINE PHOSPHATASE 475 U/L (46-116); ANION GAP 10 mmol/L (5-15); ASPARTATE AMINO TRANSFERASE 59 U/L (15-37); BILIRUBIN,TOTAL 0.5 MG/DL (0.2-1.0); BLOOD UREA NITROGEN 10 mg/dL (7-18); CARBON DIOXIDE 21 MMOL/L (21-32); CHLORIDE 108 MMOL/L (98-107); CREATININE 0.7 MG/DL (0.55-1.30); POTASSIUM 3.4 MMOL/L (3.5-5.1); SODIUM 139 MMOL/L (136-145)
[2018-05-20] MEDS: NovoLOG Insulin Flexpen SUBQ SCH ×3 (06:20→17:53)
[2018-05-20] MEDS: Albuterol/Ipratropium 3ml neb HHN SCH ×3 (06:51→22:58)
--- NOTE | 2018-05-20 07:16 | NUR ---
NURSE NOTES: Left message for Dr. Rudd regarding patient's Potassium this AM resulted back to 3.4. Awaiting call back.
--- NOTE | 2018-05-20 07:18 | NUR ---
HAND-OFF: Report given to GEOVANNA Tatum. Patient is stable.
--- NOTE | 2018-05-20 07:19 | NUR ---
NURSE NOTES: RECEIVE PATIENT FROM Chet WICK RN. PATIENT IS LYING IN BED, ABLE TO OPEN EYES. HOOKED TO CLINICAL SOCIAL WORK THERAPIST. TRACH TO VENT. PORTEX 7. VENT SETTINGS AC 14, TV 600, FIO2 35%, PEEP 5. NO SIGNS OF DISTRESS. WITH G TUBE, DRY AND INTACT. TUBE FEEDING VITAL AF 1.2 AT 55CC/HR. NOTED SKIN ALTERATION. RECTAL TUBE ON. STILL ON CONDOM CATH. RECTAL TUBE NOTED. IV ON L FA G20, RUNNING IVF D5 1/2 NS AT 75CC/HR. CALL LIGHT WITHIN REACH. BED AT LOWEST POSITION. WILL CONTINUE TO MONITOR.
[2018-05-20 08:00] VITALS: BP 136/92
[2018-05-20] MEDS: D5 1/2NS 1,000 ML IV SCH ×2 (08:36→21:21)
--- NOTE | 2018-05-20 09:58 | Pulmonolgy Critical Care Note ---
Critical Care - Asmt/Plan Problems: (1) Gastrointestinal hemorrhage (2) Sepsis (3) Chronic respiratory failure (4) Feeding by G-tube (5) History of CVA (cerebrovascular accident) Respiratory: monitor respiratory rate, adjust FIO2 Cardiac: continue to monitor HR/BP Renal: F/U I&O Infectious Disease: check cultures Gastrointestinal: continue feedings/current rate Endocrine: check TSH Neurologic: PRN Ativan Disposition: keep in ICU Notes Reviewed: curriculum director Discussed with: nurses, consultants Critical Care - Objective Last 24 Hour Vital Signs Date Time Temp Pulse Resp B/P (MAP) Pulse Ox O2 Delivery O2 Flow Rate FiO2 05/20/18 09:27 112 18 35 05/20/18 08:00 98.2 107 16 136/92 (107) 99 05/20/18 07:03 102 17 100 Mechanical Ventilator 35 05/20/18 06:51 101 17 35 05/20/18 06:51 101 17 99 Mechanical Ventilator 35 05/20/18 04:51 101 20 35 05/20/18 04:00 Mechanical Ventilator 05/20/18 04:00 98.8 101 20 135/85 (102) 97 05/20/18 04:00 35 05/20/18 03:38 83 05/20/18 03:15 76 16 35 05/20/18 01:26 68 14 35 05/20/18 00:00 Mechanical Ventilator 05/20/18 00:00 98.8 69 14 111/75 (87) 100 05/19/18 23:30 67 05/19/18 23:06 65 14 100 Mechanical Ventilator 35 05/19/18 22:49 60 14 100 Mechanical Ventilator 35 05/19/18 22:49 60 14 35 05/19/18 21:00 85 15 35 05/19/18 20:00 97.9 59 14 114/82 (93) 100 05/19/18 20:00 Mechanical Ventilator 05/19/18 20:00 35 05/19/18 19:05 75 15 35 05/19/18 19:01 59 05/19/18 17:00 58 14 35 05/19/18 16:00 35 05/19/18 16:00 63 05/19/18 16:00 98.1 62 14 108/78 (88) 99 05/19/18 16:00 Mechanical Ventilator 05/19/18 15:33 67 14 100 Mechanical Ventilator 35 05/19/18 15:24 70 14 35 05/19/18 15:23 70 14 100 Mechanical Ventilator 35 05/19/18 13:15 65 14 35 05/19/18 12:00 35 05/19/18 12:00 97.9 74 20 103/69 (80) 100 05/19/18 12:00 Mechanical Ventilator 05/19/18 11:27 70 05/19/18 10:48 84 24 35 05/19/18 10:29 68 14 100 05/19/18 10:24 69 14 99 Status: obtunded Condition: critical HEENT: atraumatic Heart: HR/BP stable Abdomen: soft, non-tender, active bowel sounds Extremities: no C/C/E Decubiti: location Micro: Microbiology Date/Time Source Procedure Growth Status 05/19/18 00:11 Urine,Clean Catch Urine Culture - Preliminary Gram Negative Bacillus 1 Resulted Accucheck: 125 Critical Care - Subjective ROS Limited/Unobtainable: Yes Condition: critical FI02: 35 Vent Support Breath Rate: 14 Vent Support Mode: AC Vent Tidal Volume: 600 Sputum Amount: Small PEEP: 5.0 PIP: 24 Tube Feeding Amount: 55 I&O: Intake and Output 05/19/18 05/20/18 19:00 07:00 Intake Total 1700 ml 1535 ml Output Total 250 ml 700 ml Balance 1450 ml 835 ml Free Water 100 ml IV Total 1500 ml 895 ml Tube Feeding 100 ml 540 ml Other 100 ml Output Urine Total 250 ml 650 ml Stool Total 50 ml Labs: Laboratory Tests Test 05/20/18 03:00 White Blood Count 6.9 K/UL (4.8-10.8) Red Blood Count 4.96 M/UL (4.70-6.10) Hemoglobin 14.2 G/DL (14.2-18.0) Hematocrit 43.1 % (42.0-52.0) Mean Corpuscular Volume 87 FL (80-99) Mean Corpuscular Hemoglobin 28.6 PG (27.0-31.0) Mean Corpuscular Hemoglobin Concent 32.9 G/DL (32.0-36.0) Red Cell Distribution Width 13.6 % (11.6-14.8) Platelet Count 184 K/UL (150-450) Mean Platelet Volume 9.7 FL (6.5-10.1) Neutrophils (%) (Auto) 52.0 % (45.0-75.0) Lymphocytes (%) (Auto) 25.9 % (20.0-45.0) Monocytes (%) (Auto) 7.9 % (1.0-10.0) Eosinophils (%) (Auto) 13.2 % (0.0-3.0) H Basophils (%) (Auto) 1.0 % (0.0-2.0) Prothrombin Time 14.2 SEC (9.30-11.50) H Prothromb Time International Ratio 1.4 (0.9-1.1) H Activated Partial Thromboplast Time 37 SEC (23-33) H Sodium Level 139 MMOL/L (136-145) Potassium Level 3.4 MMOL/L (3.5-5.1) L Chloride Level 108 MMOL/L (98-107) H Carbon Dioxide Level 21 MMOL/L (21-32) Anion Gap 10 mmol/L (5-15) Blood Urea Nitrogen 10 mg/dL (7-18) Creatinine 0.7 MG/DL (0.55-1.30) Estimat Glomerular Filtration Rate > 60 mL/min (>60) Glucose Level 100 MG/DL (74-106) Calcium Level 9.0 MG/DL (8.5-10.1) Phosphorus Level 2.8 MG/DL (2.5-4.9) Magnesium Level 2.0 MG/DL (1.8-2.4) Total Bilirubin 0.5 MG/DL (0.2-1.0) Aspartate Amino Transf (AST/SGOT) 59 U/L (15-37) H Alanine Aminotransferase (ALT/SGPT) 55 U/L (12-78) Alkaline Phosphatase 475 U/L (46-116) H Total Protein 7.8 G/DL (6.4-8.2) Albumin 2.6 G/DL (3.4-5.0) L Globulin 5.2 g/dL Albumin/Globulin Ratio 0.5 (1.0-2.7) L Sagar Rudd MD May 20, 2018 09:58
--- NOTE | 2018-05-20 11:21 | NUR ---
*-* INSURANCE *-* ALL CLINICALS,REVIEWS AND INTERQUAL HAVE BEEN FAAXED TO: JJ SANCHEZ: TOM [phone] [phone]....REVIEW/CLINICAL
[2018-05-20 12:00] VITALS: BP 129/94
--- NOTE | 2018-05-20 12:01 | GI Progress Note ---
Assessment/Plan Problems: (1) Upper GI bleed ICD Codes: K92.2 - Gastrointestinal hemorrhage, unspecified SNOMED: 27555443 (2) Coffee ground emesis ICD Codes: K92.0 - Hematemesis SNOMED: 56079932 (3) Gastrointestinal hemorrhage ICD Codes: K92.2 - Gastrointestinal hemorrhage, unspecified SNOMED: 32176916 (4) Severe sepsis ICD Codes: A41.9 - Sepsis, unspecified organism; R65.20 - Severe sepsis without septic shock SNOMED: 81162517 (5) Feeding by G-tube ICD Codes: Z93.1 - Feeding by G-tube SNOMED: 116434855 Status: stable Status Narrative Discussed with Dr. Rosas. Assessment/Plan SUMMARY OF FINDINGS: Gastritis, otherwise normal upper endoscopic examination and no evidence of any acute upper GI bleeding at this time. PLAN: 1. Resume tube feeding. 2. Monitor H and H, transfuse as needed. 3. Continue to monitor H and H and if there is any signs or symptoms of GI bleeding, we will recommend colonoscopy. monitor H&H, prn transfusions bowel regime ppi BID fu labs, trend LFTs The patient was seen and examined at bedside and all new and available data was reviewed in the patients chart. I agree with the above findings, impression and plan. (Patient seen earlier today. Signature stamp does not reflect patient encounter time.). - Gaurav Rosas MD Subjective Subjective limited Objective Last 24 Hour Vital Signs Date Time Temp Pulse Resp B/P (MAP) Pulse Ox O2 Delivery O2 Flow Rate FiO2 05/20/18 10:37 119 19 35 05/20/18 09:27 112 18 35 05/20/18 08:00 98.2 107 16 136/92 (107) 99 05/20/18 08:00 Mechanical Ventilator 05/20/18 08:00 108 05/20/18 08:00 35 05/20/18 07:03 102 17 100 Mechanical Ventilator 35 05/20/18 06:51 101 17 35 05/20/18 06:51 101 17 99 Mechanical Ventilator 35 05/20/18 04:51 101 20 35 05/20/18 04:00 Mechanical Ventilator 05/20/18 04:00 98.8 101 20 135/85 (102) 97 05/20/18 04:00 35 05/20/18 03:38 83 05/20/18 03:15 76 16 35 05/20/18 01:26 68 14 35 05/20/18 00:00 Mechanical Ventilator 05/20/18 00:00 98.8 69 14 111/75 (87) 100 05/19/18 23:30 67 05/19/18 23:06 65 14 100 Mechanical Ventilator 35 05/19/18 22:49 60 14 100 Mechanical Ventilator 35 05/19/18 22:49 60 14 35 05/19/18 21:00 85 15 35 05/19/18 20:00 97.9 59 14 114/82 (93) 100 05/19/18 20:00 Mechanical Ventilator 05/19/18 20:00 35 05/19/18 19:05 75 15 35 05/19/18 19:01 59 05/19/18 17:00 58 14 35 05/19/18 16:00 35 05/19/18 16:00 63 05/19/18 16:00 98.1 62 14 108/78 (88) 99 05/19/18 16:00 Mechanical Ventilator 05/19/18 15:33 67 14 100 Mechanical Ventilator 35 05/19/18 15:24 70 14 35 05/19/18 15:23 70 14 100 Mechanical Ventilator 35 05/19/18 13:15 65 14 35 Intake and Output 05/19/18 05/20/18 19:00 07:00 Intake Total 1700 ml 1535 ml Output Total 250 ml 700 ml Balance 1450 ml 835 ml Free Water 100 ml IV Total 1500 ml 895 ml Tube Feeding 100 ml 540 ml Other 100 ml Output Urine Total 250 ml 650 ml Stool Total 50 ml Laboratory Tests Test 05/20/18 03:00 White Blood Count 6.9 K/UL (4.8-10.8) Red Blood Count 4.96 M/UL (4.70-6.10) Hemoglobin 14.2 G/DL (14.2-18.0) Hematocrit 43.1 % (42.0-52.0) Mean Corpuscular Volume 87 FL (80-99) Mean Corpuscular Hemoglobin 28.6 PG (27.0-31.0) Mean Corpuscular Hemoglobin Concent 32.9 G/DL (32.0-36.0) Red Cell Distribution Width 13.6 % (11.6-14.8) Platelet Count 184 K/UL (150-450) Mean Platelet Volume 9.7 FL (6.5-10.1) Neutrophils (%) (Auto) 52.0 % (45.0-75.0) Lymphocytes (%) (Auto) 25.9 % (20.0-45.0) Monocytes (%) (Auto) 7.9 % (1.0-10.0) Eosinophils (%) (Auto) 13.2 % (0.0-3.0) H Basophils (%) (Auto) 1.0 % (0.0-2.0) Prothrombin Time 14.2 SEC (9.30-11.50) H Prothromb Time International Ratio 1.4 (0.9-1.1) H Activated Partial Thromboplast Time 37 SEC (23-33) H Sodium Level 139 MMOL/L (136-145) Potassium Level 3.4 MMOL/L (3.5-5.1) L Chloride Level 108 MMOL/L (98-107) H Carbon Dioxide Level 21 MMOL/L (21-32) Anion Gap 10 mmol/L (5-15) Blood Urea Nitrogen 10 mg/dL (7-18) Creatinine 0.7 MG/DL (0.55-1.30) Estimat Glomerular Filtration Rate > 60 mL/min (>60) Glucose Level 100 MG/DL (74-106) Calcium Level 9.0 MG/DL (8.5-10.1) Phosphorus Level 2.8 MG/DL (2.5-4.9) Magnesium Level 2.0 MG/DL (1.8-2.4) Total Bilirubin 0.5 MG/DL (0.2-1.0) Aspartate Amino Transf (AST/SGOT) 59 U/L (15-37) H Alanine Aminotransferase (ALT/SGPT) 55 U/L (12-78) Alkaline Phosphatase 475 U/L (46-116) H Total Protein 7.8 G/DL (6.4-8.2) Albumin 2.6 G/DL (3.4-5.0) L Globulin 5.2 g/dL Albumin/Globulin Ratio 0.5 (1.0-2.7) L Height (Feet): 5 Height (Inches): 6.00 Weight (Pounds): 154 General Appearance: WD/WN, no apparent distress, alert Cardiovascular: normal rate Respiratory/Chest: normal breath sounds, no respiratory distress Abdominal Exam: normal bowel sounds, non tender, soft, GT site - c/d/i Extremities: non-tender Good Garcia NP May 20, 2018 12:01
--- NOTE | 2018-05-20 13:36 | NUR ---
NURSE NOTES: INFORMED DR CRAMER RE INCREASED TEMP. ORDERED TO HOLD DC AND INFORM DR MA. DR MA MADE AWARE OF THE TEMP. AWAITING FOR CALL BACK. WILL CONTINUE TO MONITOR.
--- NOTE | 2018-05-20 14:02 | NUR ---
*-* DISCHARGE PLANNING *-* PATIENT HAS BEEN REFERRED TO THE FOLLOWING FACILITIES: 1. [facility]) p:[phone] f:[phone] 2. [facility] P:[phone] F:[phone] 3. [facility] P;[phone] F:[phone]
--- NOTE | 2018-05-20 14:36 | Infectious Diseases Prog Note ---
Assessment/Plan Assessment/Plan Abx: None Assessment: Recurrent coffee ground emesis -hx on 02/2017 -EGD 01/2017: gastritis; on coumadin Mild Leukocytosis- SP Afebrile Probable Asp PNA -05/19 CXR: Slightly worsening interstitial edema.Persistent basilar parenchymal densities. Pneumonia and other possibilities suggested -05/17 CXR: There is increasing left basilar opacity, likely reflecting increased pleural fluid, possibly with some underlying atelectasis or consolidation as well. -CXR: Bibasilar opacities. Findings may be inflammatory or infectious. -sp cx -r/o probable UTI -u/a wbc 40-60, nit neg, leuk +3; ucx >100K GNR hx Fungemia Shelli tropicalis 02/2017, S/p Rx repeat Bc: 03/01 : Neg Probable PICC( 01/22) infection removed on 03/02 Hx of HCAP -hx of MDR PsA (05/2017) - sp cx ACB Hx of UTI 02/2017 -ucx Providencia, VRE Hx of persistent low grade CONS bacteremia 01/2017- SP Rx for presumed endocarditis/endovascular source -Bcx 01/21 2 CONS, 01/23 + 03/26, 01/26, +03/26 -TTE very limited, no vegetations seen. HUONG could not be done History of chronically elevated alkaline phosphatase CVA with anoxic brain injury Sacral decubitus. Ventilator-dependent respiratory failure. History of trach and PEG placement. COPD. Esophagitis, Hx EGD : . Minimum distal esophagitis. Gastritis, status post biopsy. 01/23 Diabetes. Anxiety. Anemia. Plan: -Cont empiric Cefepime and Flagyl #3/7 to cover for aspiration PNA -can be discharge on above regimen -f/u pending cultures -f/u cx -Monitor CBC/CMP, temperatures Thank you for this consultation. Will continue to follow along with you. Discussed with RN. Subjective Allergies: Coded Allergies: OXYTETRACYCLINE (Unverified Allergy, Unknown, 09/05/13) PENICILLINS (Unverified Allergy, Unknown, 06/11/17) Tolerated one dose of Cefepime 06/07/17 Tolerated Cefdinir 06/10/17 Uncoded Allergies: PLASTIC TAPE (Allergy, Mild, ITCHINESS, 08/08/15) MEDICAL TAPE (Allergy, Unknown, 12/10/16) Subjective afebrile no leukocytosis Objective Vital Signs Last 24 Hour Vital Signs Date Time Temp Pulse Resp B/P (MAP) Pulse Ox O2 Delivery O2 Flow Rate FiO2 05/20/18 13:53 108 17 35 05/20/18 12:27 98.2 05/20/18 12:00 Mechanical Ventilator 05/20/18 12:00 112 05/20/18 12:00 35 05/20/18 12:00 99.5 111 16 129/94 (106) 99 05/20/18 10:37 119 19 35 05/20/18 09:27 112 18 35 05/20/18 08:00 98.2 107 16 136/92 (107) 99 05/20/18 08:00 Mechanical Ventilator 05/20/18 08:00 108 05/20/18 08:00 35 05/20/18 07:03 102 17 100 Mechanical Ventilator 35 05/20/18 06:51 101 17 35 05/20/18 06:51 101 17 99 Mechanical Ventilator 35 05/20/18 04:51 101 20 35 05/20/18 04:00 Mechanical Ventilator 05/20/18 04:00 98.8 101 20 135/85 (102) 97 05/20/18 04:00 35 05/20/18 03:38 83 05/20/18 03:15 76 16 35 05/20/18 01:26 68 14 35 05/20/18 00:00 Mechanical Ventilator 05/20/18 00:00 98.8 69 14 111/75 (87) 100 05/19/18 23:30 67 05/19/18 23:06 65 14 100 Mechanical Ventilator 35 05/19/18 22:49 60 14 100 Mechanical Ventilator 35 05/19/18 22:49 60 14 35 05/19/18 21:00 85 15 35 05/19/18 20:00 97.9 59 14 114/82 (93) 100 05/19/18 20:00 Mechanical Ventilator 05/19/18 20:00 35 05/19/18 19:05 75 15 35 05/19/18 19:01 59 05/19/18 17:00 58 14 35 05/19/18 16:00 35 05/19/18 16:00 63 05/19/18 16:00 98.1 62 14 108/78 (88) 99 05/19/18 16:00 Mechanical Ventilator 05/19/18 15:33 67 14 100 Mechanical Ventilator 35 05/19/18 15:24 70 14 35 05/19/18 15:23 70 14 100 Mechanical Ventilator 35 Height (Feet): 5 Height (Inches): 6.00 Weight (Pounds): 154 Objective Status: obtunded Condition: critical HEENT: atraumatic Lungs: chest wall tender Heart: HR/BP unstable Abdomen: soft, active bowel sounds Extremities: no C/C/E Microbiology Date/Time Source Procedure Growth Status 05/19/18 00:11 Urine,Clean Catch Urine Culture - Preliminary Gram Negative Bacillus 1 Resulted Laboratory Tests Test 05/20/18 03:00 White Blood Count 6.9 K/UL (4.8-10.8) Red Blood Count 4.96 M/UL (4.70-6.10) Hemoglobin 14.2 G/DL (14.2-18.0) Hematocrit 43.1 % (42.0-52.0) Mean Corpuscular Volume 87 FL (80-99) Mean Corpuscular Hemoglobin 28.6 PG (27.0-31.0) Mean Corpuscular Hemoglobin Concent 32.9 G/DL (32.0-36.0) Red Cell Distribution Width 13.6 % (11.6-14.8) Platelet Count 184 K/UL (150-450) Mean Platelet Volume 9.7 FL (6.5-10.1) Neutrophils (%) (Auto) 52.0 % (45.0-75.0) Lymphocytes (%) (Auto) 25.9 % (20.0-45.0) Monocytes (%) (Auto) 7.9 % (1.0-10.0) Eosinophils (%) (Auto) 13.2 % (0.0-3.0) H Basophils (%) (Auto) 1.0 % (0.0-2.0) Prothrombin Time 14.2 SEC (9.30-11.50) H Prothromb Time International Ratio 1.4 (0.9-1.1) H Activated Partial Thromboplast Time 37 SEC (23-33) H Sodium Level 139 MMOL/L (136-145) Potassium Level 3.4 MMOL/L (3.5-5.1) L Chloride Level 108 MMOL/L (98-107) H Carbon Dioxide Level 21 MMOL/L (21-32) Anion Gap 10 mmol/L (5-15) Blood Urea Nitrogen 10 mg/dL (7-18) Creatinine 0.7 MG/DL (0.55-1.30) Estimat Glomerular Filtration Rate > 60 mL/min (>60) Glucose Level 100 MG/DL (74-106) Calcium Level 9.0 MG/DL (8.5-10.1) Phosphorus Level 2.8 MG/DL (2.5-4.9) Magnesium Level 2.0 MG/DL (1.8-2.4) Total Bilirubin 0.5 MG/DL (0.2-1.0) Aspartate Amino Transf (AST/SGOT) 59 U/L (15-37) H Alanine Aminotransferase (ALT/SGPT) 55 U/L (12-78) Alkaline Phosphatase 475 U/L (46-116) H Total Protein 7.8 G/DL (6.4-8.2) Albumin 2.6 G/DL (3.4-5.0) L Globulin 5.2 g/dL Albumin/Globulin Ratio 0.5 (1.0-2.7) L Current Medications Medications (Trade) Dose Ordered Sig/Sima Route PRN Reason Start Time Stop Time Status Last Admin Dose Admin Acetaminophen (Tylenol) 650 mg Q4H PRN ORAL fever 05/15/18 22:30 06/14/18 22:29 05/20/18 11:57 Acetaminophen/ Hydrocodone Bitart ([place] 10/325) 1 tab Q12HR PRN GT For Pain 05/15/18 22:30 05/22/18 22:29 Al Hydroxide/Mg Hydroxide (Mylanta II) 30 ml Q6H PRN ORAL dyspepsia 05/15/18 22:30 06/14/18 22:29 Albuterol/ Ipratropium (Albuterol/ Ipratropium) 3 ml Q8HRT HHN 05/16/18 07:00 05/21/18 06:59 05/20/18 06:51 Atorvastatin Calcium (Lipitor) 10 mg BEDTIME GT 05/16/18 21:00 06/15/18 20:59 05/19/18 21:09 Cefepime HCl 1 gm/ Dextrose 55 ml @ 110 mls/hr Q12H IVPB 05/18/18 14:00 3/5/19 13:59 05/20/18 01:58 Dextrose (Dextrose 50%) 25 ml Q30M PRN IV Hypoglycemia 05/18/18 18:45 06/17/18 18:44 Dextrose (Dextrose 50%) 50 ml Q30M PRN IV Hypoglycemia 05/18/18 18:45 06/17/18 18:44 Dextrose/Sodium Chloride 1,000 ml @ 75 mls/hr [id number] IV 05/15/18 22:19 06/14/18 22:18 05/20/18 08:36 Diphenhydramine HCl (Benadryl) 25 mg Q6H PRN ORAL Itching/Pruritis 05/15/18 22:30 06/14/18 22:29 Insulin Aspart (NovoLOG) Q6HR SUBQ 05/19/18 00:00 06/18/18 00:00 05/20/18 11:56 Lansoprazole (Prevacid) 30 mg BID GT 05/17/18 18:00 06/15/18 17:59 05/20/18 08:35 Loperamide HCl (Imodium) 2 mg Q6H PRN GT Diarrhea 05/17/18 19:00 06/16/18 18:59 05/17/18 19:19 Metronidazole 100 ml @ 100 mls/hr Q8HR IVPB 05/19/18 14:00 05/26/18 13:59 05/20/18 13:23 Morphine Sulfate (Morphine Sulfate) 2 mg EVERY 4 HOURS PRN IVP severe Pain (Pain Scale 7-10) 05/15/18 22:30 05/22/18 22:29 Nitroglycerin (Ntg) 0.4 mg Q5M X 3 DOSES PRN SL Prn Chest Pain 05/15/18 22:30 06/14/18 22:29 Ondansetron HCl (Zofran) 4 mg Q6H PRN IVP Nausea & Vomiting 05/15/18 22:30 06/14/18 22:29 Polyethylene Glycol (Miralax) 17 gm HSPRN PRN ORAL Constipation 05/15/18 22:30 06/14/18 22:29 Nanci Kline M.D. May 20, 2018 14:36
--- NOTE | 2018-05-20 15:34 | NUR ---
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 98.1 HR 111 RR 16 B/P 129/94 AC 14 TV 600 FIO2 35% PEEP 5 IS: FLAGYL IV CEFAZOLIN IV ALB HHN STEP DOWN STATUS
[2018-05-20 16:00] VITALS: BP 117/75
--- NOTE | 2018-05-20 17:21 | Internal Med Progress Note ---
Subjective Date of Service: May 20, 2018 Physician Name Samuel Caballero Attending Physician Boris Arevalo MD Current Medications Medications (Trade) Dose Ordered Sig/Sima Route PRN Reason Start Time Stop Time Status Last Admin Dose Admin Acetaminophen (Tylenol) 650 mg Q4H PRN ORAL fever 05/15/18 22:30 06/14/18 22:29 05/20/18 11:57 Acetaminophen/ Hydrocodone Bitart ([place] 10/325) 1 tab Q12HR PRN GT For Pain 05/15/18 22:30 05/22/18 22:29 Al Hydroxide/Mg Hydroxide (Mylanta II) 30 ml Q6H PRN ORAL dyspepsia 05/15/18 22:30 06/14/18 22:29 Albuterol/ Ipratropium (Albuterol/ Ipratropium) 3 ml Q8HRT HHN 05/16/18 07:00 05/21/18 06:59 05/20/18 14:51 Atorvastatin Calcium (Lipitor) 10 mg BEDTIME GT 05/16/18 21:00 06/15/18 20:59 05/19/18 21:09 Cefepime HCl 1 gm/ Dextrose 55 ml @ 110 mls/hr Q12H IVPB 05/18/18 14:00 05/25/18 13:59 05/20/18 14:00 Dextrose (Dextrose 50%) 25 ml Q30M PRN IV Hypoglycemia 05/18/18 18:45 06/17/18 18:44 Dextrose (Dextrose 50%) 50 ml Q30M PRN IV Hypoglycemia 05/18/18 18:45 06/17/18 18:44 Dextrose/Sodium Chloride 1,000 ml @ 75 mls/hr [id number] IV 05/15/18 22:19 06/14/18 22:18 05/20/18 08:36 Diphenhydramine HCl (Benadryl) 25 mg Q6H PRN ORAL Itching/Pruritis 05/15/18 22:30 06/14/18 22:29 Insulin Aspart (NovoLOG) Q6HR SUBQ 05/19/18 00:00 06/18/18 00:00 05/20/18 11:56 Lansoprazole (Prevacid) 30 mg BID GT 05/17/18 18:00 06/15/18 17:59 05/20/18 08:35 Loperamide HCl (Imodium) 2 mg Q6H PRN GT Diarrhea 05/17/18 19:00 06/16/18 18:59 05/17/18 19:19 Metronidazole 100 ml @ 100 mls/hr Q8HR IVPB 05/19/18 14:00 05/26/18 13:59 05/20/18 13:23 Morphine Sulfate (Morphine Sulfate) 2 mg EVERY 4 HOURS PRN IVP severe Pain (Pain Scale 7-10) 05/15/18 22:30 05/22/18 22:29 Nitroglycerin (Ntg) 0.4 mg Q5M X 3 DOSES PRN SL Prn Chest Pain 05/15/18 22:30 06/14/18 22:29 Ondansetron HCl (Zofran) 4 mg Q6H PRN IVP Nausea & Vomiting 05/15/18 22:30 06/14/18 22:29 Polyethylene Glycol (Miralax) 17 gm HSPRN PRN ORAL Constipation 05/15/18 22:30 06/14/18 22:29 Allergies: Coded Allergies: OXYTETRACYCLINE (Unverified Allergy, Unknown, 09/05/13) PENICILLINS (Unverified Allergy, Unknown, 06/11/17) Tolerated one dose of Cefepime 06/07/17 Tolerated Cefdinir 06/10/17 Uncoded Allergies: PLASTIC TAPE (Allergy, Mild, ITCHINESS, 08/08/15) MEDICAL TAPE (Allergy, Unknown, 12/10/16) ROS Limited/Unobtainable: Yes Subjective 63 YO M admitted with coffee grounds emesis. Now pneumonia. Cover for Int Med- DR Peña. PERCY. Continues on [facility] vent. Objective Last Vital Signs Date Time Temp Pulse Resp B/P (MAP) Pulse Ox O2 Delivery O2 Flow Rate FiO2 05/20/18 17:02 99 18 35 05/20/18 16:00 Mechanical Ventilator 05/20/18 14:59 100 05/20/18 12:27 98.2 05/20/18 12:00 129/94 (106) 05/16/18 16:00 35.0 Laboratory Tests Test 05/20/18 03:00 White Blood Count 6.9 K/UL (4.8-10.8) Red Blood Count 4.96 M/UL (4.70-6.10) Hemoglobin 14.2 G/DL (14.2-18.0) Hematocrit 43.1 % (42.0-52.0) Mean Corpuscular Volume 87 FL (80-99) Mean Corpuscular Hemoglobin 28.6 PG (27.0-31.0) Mean Corpuscular Hemoglobin Concent 32.9 G/DL (32.0-36.0) Red Cell Distribution Width 13.6 % (11.6-14.8) Platelet Count 184 K/UL (150-450) Mean Platelet Volume 9.7 FL (6.5-10.1) Neutrophils (%) (Auto) 52.0 % (45.0-75.0) Lymphocytes (%) (Auto) 25.9 % (20.0-45.0) Monocytes (%) (Auto) 7.9 % (1.0-10.0) Eosinophils (%) (Auto) 13.2 % (0.0-3.0) H Basophils (%) (Auto) 1.0 % (0.0-2.0) Prothrombin Time 14.2 SEC (9.30-11.50) H Prothromb Time International Ratio 1.4 (0.9-1.1) H Activated Partial Thromboplast Time 37 SEC (23-33) H Sodium Level 139 MMOL/L (136-145) Potassium Level 3.4 MMOL/L (3.5-5.1) L Chloride Level 108 MMOL/L (98-107) H Carbon Dioxide Level 21 MMOL/L (21-32) Anion Gap 10 mmol/L (5-15) Blood Urea Nitrogen 10 mg/dL (7-18) Creatinine 0.7 MG/DL (0.55-1.30) Estimat Glomerular Filtration Rate > 60 mL/min (>60) Glucose Level 100 MG/DL (74-106) Calcium Level 9.0 MG/DL (8.5-10.1) Phosphorus Level 2.8 MG/DL (2.5-4.9) Magnesium Level 2.0 MG/DL (1.8-2.4) Total Bilirubin 0.5 MG/DL (0.2-1.0) Aspartate Amino Transf (AST/SGOT) 59 U/L (15-37) H Alanine Aminotransferase (ALT/SGPT) 55 U/L (12-78) Alkaline Phosphatase 475 U/L (46-116) H Total Protein 7.8 G/DL (6.4-8.2) Albumin 2.6 G/DL (3.4-5.0) L Globulin 5.2 g/dL Albumin/Globulin Ratio 0.5 (1.0-2.7) L Microbiology Date/Time Source Procedure Growth Status 05/19/18 00:11 Urine,Clean Catch Urine Culture - Preliminary Gram Negative Bacillus 1 Resulted Intake and Output 05/19/18 05/20/18 19:00 07:00 Intake Total 1700 ml 1535 ml Output Total 250 ml 700 ml Balance 1450 ml 835 ml Free Water 100 ml IV Total 1500 ml 895 ml Tube Feeding 100 ml 540 ml Other 100 ml Output Urine Total 250 ml 650 ml Stool Total 50 ml Objective General Appearance: WD/WN, no apparent distress, lethargic EENT: PERRL/EOMI, normal ENT inspection Neck: non-tender, normal alignment, supple, normal inspection Cardiovascular: normal peripheral pulses, normal rate, regular rhythm, no gallop/murmur, no JVD Respiratory/Chest: Mech vent; chest wall non-tender, respiratory distress, crackles/rales, rhonchi - bilaterally, expiratory wheezing Abdomen: normal bowel sounds, non tender, soft, no organomegaly, no mass Extremities: normal range of motion Edema: trace edema Neurologic: unresponsiveness Skin: normal pigmentation, warm/dry Assessment/Plan Problem List: (1) Coffee ground emesis Assessment & Plan: See GI note (2) Tracheostomy care (3) Ventilator dependence Assessment & Plan: Follow pulmonary recs (4) Gastrointestinal hemorrhage Assessment & Plan: Endoscopy scheduled for 05/19/18-see GI note (5) Chronic respiratory failure (6) Dysphagia (7) HTN (hypertension) (8) Cerebral vascular disease (9) Vegetative state (10) Feeding by G-tube (11) Pneumonia Assessment & Plan: Continue cefepime and flagyl for possible aspiration pneumonia. See ID note. Samuel Caballero MD May 20, 2018 17:21
--- NOTE | 2018-05-20 19:03 | NUR ---
RESPIRATORY NOTE: Received pt on AC 14, 600VT, 35%, PEEP +5. Pt is trach-dependent w/ a cuffed, Portex 7 tube. Pt asleep/disoriented. B/S del. rhonchi, sxn small to moderate amounts of thick, pale-yellow secretions. Vent plugged into red outlet, ambubag & spare trach kit at bedside. Pt in no apparent distress at this time. Will continue plan of care.
--- NOTE | 2018-05-20 19:10 | NUR ---
NURSE NOTES: Pt report given from Deepti AUSTIN. pt appears to be sleeping comfortably with no respiratory depression noted. vent settings are as per MD order. (portex 7, AC 14, TV 600, FIO2 35% PEEP 5) pt is SR. pt pupils are round and reactive to light and accommodating. pt is non verbal. vital signs are steady. Pt is able to open eyes with no physical contact. will continue plan of care.
--- NOTE | 2018-05-20 19:20 | NUR ---
HAND-OFF: Report given to Chet Fuentes RN.
[2018-05-20 20:00] VITALS: BP 117/82
--- NOTE | 2018-05-20 21:05 | General Progress Note ---
Assessment/Plan Assessment/Plan Assessment and recs # Anemia likely due to gastrointestinal hemorrhage --> at this time the h/h is stable --> anemia panel reviewed, pt has acd --> low threshold for gi eval --> Dr. Rudd on board, currently patient in sdu # Leukocytosis is likely related to reactive process from anmeia --> trend as needed currently improving --> low threshold for starting abx # Probable HCAP vs Asp PNA - CXR: Patchy bibasilar airspace opacities, left greater than right, most concerning for infiltrate/pneumonia. --> in the past received abx, low threshold for id eval, abx # SOB - cultures currently ngtd # Elevated LFts ==> trend, as per gi # HARDEEP, resolved # Chronic resp failure on trach/vent # Dysphagia s/p GT # Recent Fungemia Shelli tropicalis 02/2017, S/p Rx # Hx of persistent low grade CONS bacteremia 01/2017- SP Rx for presumed endocarditis/endovascular source --> Bcx 01/21 04/26 CONS, 01/23 + 03/26, 01/26, +03/26 --> TTE very limited, no vegetations seen. HUONG could not be done last admission Subjective ROS Limited/Unobtainable: Yes Allergies: Coded Allergies: OXYTETRACYCLINE (Unverified Allergy, Unknown, 09/05/13) PENICILLINS (Unverified Allergy, Unknown, 06/11/17) Tolerated one dose of Cefepime 06/07/17 Tolerated Cefdinir 06/10/17 Uncoded Allergies: PLASTIC TAPE (Allergy, Mild, ITCHINESS, 08/08/15) MEDICAL TAPE (Allergy, Unknown, 12/10/16) Subjective 05/17: seen by bedside, Trach to Vent dependent, on g-tube, scheduled EGD tomorrow,no events, cbc reviewed. 05/18: EGD rescheduled until tomorrow,wbc 14 05/19: egd w/bx, gtube adjustment done today, no events 05/20: Pt is seen by bedside, awake, comfortable, no acute distress. Objective Last 24 Hour Vital Signs Date Time Temp Pulse Resp B/P (MAP) Pulse Ox O2 Delivery O2 Flow Rate FiO2 05/20/18 20:46 89 14 35 05/20/18 19:02 95 15 Mechanical Ventilator 35 05/20/18 19:01 95 15 35 05/20/18 17:02 99 18 35 05/20/18 16:00 98.1 96 14 117/75 (89) 99 05/20/18 16:00 100 05/20/18 16:00 Mechanical Ventilator 05/20/18 16:00 35 05/20/18 14:59 104 16 100 Mechanical Ventilator 35 05/20/18 14:52 103 18 99 Mechanical Ventilator 35 05/20/18 14:51 104 19 35 05/20/18 13:53 108 17 35 05/20/18 12:27 98.2 05/20/18 12:00 Mechanical Ventilator 05/20/18 12:00 112 05/20/18 12:00 35 05/20/18 12:00 99.5 111 16 129/94 (106) 99 05/20/18 10:37 119 19 35 05/20/18 09:27 112 18 35 05/20/18 08:00 98.2 107 16 136/92 (107) 99 05/20/18 08:00 Mechanical Ventilator 05/20/18 08:00 108 05/20/18 08:00 35 05/20/18 07:03 102 17 100 Mechanical Ventilator 35 05/20/18 06:51 101 17 35 05/20/18 06:51 101 17 99 Mechanical Ventilator 35 05/20/18 04:51 101 20 35 05/20/18 04:00 Mechanical Ventilator 05/20/18 04:00 98.8 101 20 135/85 (102) 97 05/20/18 04:00 35 05/20/18 03:38 83 05/20/18 03:15 76 16 35 05/20/18 01:26 68 14 35 05/20/18 00:00 Mechanical Ventilator 05/20/18 00:00 98.8 69 14 111/75 (87) 100 05/19/18 23:30 67 05/19/18 23:06 65 14 100 Mechanical Ventilator 35 05/19/18 22:49 60 14 100 Mechanical Ventilator 35 05/19/18 22:49 60 14 35 Intake and Output 05/19/18 05/20/18 19:00 07:00 Intake Total 1700 ml 1535 ml Output Total 250 ml 700 ml Balance 1450 ml 835 ml Free Water 100 ml IV Total 1500 ml 895 ml Tube Feeding 100 ml 540 ml Other 100 ml Output Urine Total 250 ml 650 ml Stool Total 50 ml Laboratory Tests 05/20/18 03:00: White Blood Count 6.9, Red Blood Count 4.96, Hemoglobin 14.2, Hematocrit 43.1, Mean Corpuscular Volume 87, Mean Corpuscular Hemoglobin 28.6, Mean Corpuscular Hemoglobin Concent 32.9, Red Cell Distribution Width 13.6, Platelet Count 184, Mean Platelet Volume 9.7, Neutrophils (%) (Auto) 52.0, Lymphocytes (%) (Auto) 25.9, Monocytes (%) (Auto) 7.9, Eosinophils (%) (Auto) 13.2H, Basophils (%) ( Auto) 1.0, Prothrombin Time 14.2H, Prothromb Time International Ratio 1.4H, Activated Partial Thromboplast Time 37H, Sodium Level 139, Potassium Level 3.4L , Chloride Level 108H, Carbon Dioxide Level 21, Anion Gap 10, Blood Urea Nitrogen 10, Creatinine 0.7, Estimat Glomerular Filtration Rate > 60, Glucose Level 100, Calcium Level 9.0, Phosphorus Level 2.8, Magnesium Level 2.0, Total Bilirubin 0.5, Aspartate Amino Transf (AST/SGOT) 59H, Alanine Aminotransferase ( ALT/SGPT) 55, Alkaline Phosphatase 475H, Total Protein 7.8, Albumin 2.6L, Globulin 5.2, Albumin/Globulin Ratio 0.5L Height (Feet): 5 Height (Inches): 6.00 Weight (Pounds): 154 Objective Sp02 EP Interpretation: reviewed General Appearance: no apparent distress Head: normocephalic, atraumatic Eyes: bilateral eye PERRL ENT: dry mucus membranes Neck: supple, other - Tracheostomy in place no crepitus Respiratory: no retraction, no accessory muscle use, crackles - Bilaterally Cardiovascular: regular rate, rhythm Gastrointestinal: non tender, soft Musculoskeletal: other - Patient chronically debilitated, Contracted in upper and lower extremity Neurologic: responsive Alexi Bazan MD May 20, 2018 21:05
[2018-05-21] VITALS: BP 122/86
[2018-05-21] MEDS: NovoLOG Insulin Flexpen SUBQ SCH ×2 (00:10→06:03)
[2018-05-21] MEDS: Cefepime HCl 1 GM in D5W 55 ML IVPB SCH (01:08)
--- NOTE | 2018-05-21 02:15 | Progress Note ---
DATE: 05/20/2018 SUBJECTIVE: The patient was admitted five days ago because of acute respiratory failure. For the purpose of this visit, the patient was examined in detail. All progress notes since admission have been reviewed as well as laboratory tests and imaging studies and the case was discussed with the treatment team. PHYSICAL EXAMINATION: VITAL SIGNS: Blood pressure 117/75, pulse is 96, respirations of 14, and temperature 98.1. HEENT: Eyes were normal. ENT, mucous membranes were moist and intact. NECK: Supple with no JVD without lymph nodes. Tracheostomy site is clean. HEART: Normal sounds with regular beats. He has tachycardia at rest. ABDOMEN: Soft and nontender with normal bowel sounds. Gastrostomy site is clean. EXTREMITIES: Warm without cyanosis, clubbing, or edema. There is flexion contracture of elbows and wrists and is slightly on hips and knees. LABORATORY AND DIAGNOSTIC DATA: His hemoglobin is 14.2, hematocrit 43.1 with MCV of 87, WBC of 6.9, and platelets 184,000. His BUN and creatinine 10 and 0.7 respectively. Sodium is 139, potassium 3.4, chloride 106, and CO2 is 21. His phosphorus is 2.8. His magnesium is 2.0. His SGOT is 69 and SGPT is 59. His alkaline phosphatase is 475. His proBNP is 422. His albumin is 2.6 and total protein is 7.8. His chest x-ray, persistent infiltrate and worsening interstitial edema. IMPRESSION AND PLAN: The patient has respiratory failure, is ventilation dependent through tracheostomy and fed via gastrostomy tube. He is status post severe anoxic encephalopathy with cerebral hemorrhage with flexion contracture of the upper extremities. He has high blood pressure and diabetes mellitus. He is on cefepime I g IV piggyback q.12 h. Repeat laboratory tests will be done in the a.m. Boris Arevalo M.D. DR: ALYSSA JOB#: [id number] CC:
[2018-05-21 04:00] VITALS: BP 116/85
[2018-05-21 06:31] LABS: BASOPHILS % (AUTO) 0.8 % (0.0-2.0); EOSINOPHILS % (AUTO) 11.5 % (0.0-3.0); HEMATOCRIT 42.6 % (42.0-52.0); HEMOGLOBIN 14.1 G/DL (14.2-18.0); LYMPHOCYTES % (AUTO) 22.1 % (20.0-45.0); MEAN CORPUSCULAR VOLUME 88 FL (80-99); MONOCYTES % (AUTO) 6.7 % (1.0-10.0); PLATELET COUNT 193 K/UL (150-450); RED BLOOD COUNT 4.83 M/UL (4.70-6.10); WHITE BLOOD COUNT 7.7 K/UL (4.8-10.8)
[2018-05-21 06:40] LABS: INR 1.4 (0.9-1.1)
[2018-05-21] MEDS: Albuterol/Ipratropium 3ml neb HHN SCH (06:52)
--- NOTE | 2018-05-21 07:14 | NUR ---
NURSE NOTES: Received report GEOVANNA Sandoval/Heiu patient eyes close on ventilator,head elevated,observe aspiration precaution, breathing easy,on Special mattress P200,G tube feeding,IV fluids infusing,observe contact isolation,patient contracted,condom catheter Addendum: 05/21/18 at 1439 by Kostas JO RN G tube feeding Vital AF 1.2 at 55 ml/hr,IV D51/2 NS at 75 ml/hr
[2018-05-21 07:15] LABS: ALANINE AMINOTRANSFERASE 42 U/L (12-78); ALBUMIN 2.5 G/DL (3.4-5.0); ALBUMIN/GLOBULIN RATIO 0.5 (1.0-2.7); ALKALINE PHOSPHATASE 424 U/L (46-116); ANION GAP 11 mmol/L (5-15); ASPARTATE AMINO TRANSFERASE 43 U/L (15-37); BILIRUBIN,TOTAL 0.4 MG/DL (0.2-1.0); BLOOD UREA NITROGEN 11 mg/dL (7-18); CALCIUM 8.6 MG/DL (8.5-10.1); CARBON DIOXIDE 19 MMOL/L (21-32); CHLORIDE 109 MMOL/L (98-107); CREATININE 0.7 MG/DL (0.55-1.30); PHOSPHORUS 1.9 MG/DL (2.5-4.9); POTASSIUM 4.3 MMOL/L (3.5-5.1); SODIUM 139 MMOL/L (136-145)
--- NOTE | 2018-05-21 07:35 | NUR ---
HAND-OFF: Report given to Jacqueline AUSTIN.
[2018-05-21 08:30] VITALS: BP 104/81
--- NOTE | 2018-05-21 11:00 | NUR ---
NURSE NOTES: Patient for discharge,family notified by charge nurse Milana RN oral care skin care done,incontinent urine only cleaned apply skin moisture cream, change condom catheter,trache dressing done,G tube dressing done stoma dry,sacral dressing change for protection ,apply skin barrier cream-triad,cover with optifoam dressing,keep head elevated 30 degrees,aspiration precaution,temp 98.8-99 Dr. Kline has been aware OK to discharge,continue antibiotics
--- NOTE | 2018-05-21 11:16 | NUR ---
Social Service Note Follow up call placed to the following: [facility] [phone], declined acceptance [facility] [phone], declined acceptance [facility] [phone], no available beds Addendum: 05/21/18 at 1138 by TONYA CONRAD Patient accepted at [place] [phone], [facility] care to room [facility]A. Patient will dc [facility].
--- NOTE | 2018-05-21 11:38 | GI Progress Note ---
Assessment/Plan Problems: (1) Upper GI bleed ICD Codes: K92.2 - Gastrointestinal hemorrhage, unspecified SNOMED: 90730525 (2) Coffee ground emesis ICD Codes: K92.0 - Hematemesis SNOMED: 89812990 (3) Gastrointestinal hemorrhage ICD Codes: K92.2 - Gastrointestinal hemorrhage, unspecified SNOMED: 99548775 (4) Severe sepsis ICD Codes: A41.9 - Sepsis, unspecified organism; R65.20 - Severe sepsis without septic shock SNOMED: 48163470 (5) Feeding by G-tube ICD Codes: Z93.1 - Feeding by G-tube SNOMED: 987109268 Status: stable Status Narrative Discussed with Dr. Rosas. Assessment/Plan SUMMARY OF FINDINGS: Gastritis, otherwise normal upper endoscopic examination and no evidence of any acute upper GI bleeding at this time. PLAN: 1. Resume tube feeding. 2. Monitor H and H, transfuse as needed. 3. Continue to monitor H and H and if there is any signs or symptoms of GI bleeding, we will recommend colonoscopy. monitor H&H, prn transfusions bowel regime ppi BID fu labs, trend LFTs The patient was seen and examined at bedside and all new and available data was reviewed in the patients chart. I agree with the above findings, impression and plan. (Patient seen earlier today. Signature stamp does not reflect patient encounter time.). - Gaurav Rosas MD Subjective Subjective limited Objective Last 24 Hour Vital Signs Date Time Temp Pulse Resp B/P (MAP) Pulse Ox O2 Delivery O2 Flow Rate FiO2 05/21/18 09:10 96 17 35 05/21/18 08:30 98.8 89 16 104/81 (89) 100 05/21/18 08:00 35 05/21/18 08:00 Mechanical Ventilator 05/21/18 07:39 95 05/21/18 07:01 91 14 100 Mechanical Ventilator 35 05/21/18 06:53 88 14 100 Mechanical Ventilator 35 05/21/18 06:53 88 14 35 05/21/18 04:54 93 18 35 05/21/18 04:00 35 05/21/18 04:00 Mechanical Ventilator 05/21/18 04:00 98.7 91 14 116/85 (95) 99 05/21/18 03:40 92 18 35 05/21/18 03:37 91 05/21/18 01:05 89 16 35 05/21/18 00:00 Mechanical Ventilator 05/21/18 00:00 98.1 92 17 122/86 (98) 99 05/20/18 23:45 93 05/20/18 23:08 106 22 100 Mechanical Ventilator 35 05/20/18 22:58 104 23 98 Mechanical Ventilator 35 05/20/18 22:57 104 23 35 05/20/18 20:46 89 14 35 05/20/18 20:00 Mechanical Ventilator 05/20/18 20:00 98.8 98 20 117/82 (94) 99 05/20/18 20:00 35 05/20/18 19:02 90 05/20/18 19:02 95 15 Mechanical Ventilator 35 05/20/18 19:01 95 15 35 05/20/18 17:02 99 18 35 05/20/18 16:00 98.1 96 14 117/75 (89) 99 05/20/18 16:00 100 05/20/18 16:00 Mechanical Ventilator 05/20/18 16:00 35 05/20/18 14:59 104 16 100 Mechanical Ventilator 35 05/20/18 14:52 103 18 99 Mechanical Ventilator 35 05/20/18 14:51 104 19 35 05/20/18 13:53 108 17 35 05/20/18 12:27 98.2 05/20/18 12:00 Mechanical Ventilator 05/20/18 12:00 112 05/20/18 12:00 35 05/20/18 12:00 99.5 111 16 129/94 (106) 99 Intake and Output 05/20/18 05/21/18 19:00 07:00 Intake Total 1957.5 ml 1788.75 ml Output Total 2100 ml 500 ml Balance -142.5 ml 1288.75 ml Free Water 200 ml 100 ml IV Total 1097.5 ml 878.75 ml Tube Feeding 660 ml 660 ml Other 150 ml Output Urine Total 600 ml 500 ml Hemodialysis UF 1500 ml # Bowel Movements 2 2 Laboratory Tests Test 05/21/18 03:15 White Blood Count 7.7 K/UL (4.8-10.8) Red Blood Count 4.83 M/UL (4.70-6.10) Hemoglobin 14.1 G/DL (14.2-18.0) L Hematocrit 42.6 % (42.0-52.0) Mean Corpuscular Volume 88 FL (80-99) Mean Corpuscular Hemoglobin 29.3 PG (27.0-31.0) Mean Corpuscular Hemoglobin Concent 33.2 G/DL (32.0-36.0) Red Cell Distribution Width 14.0 % (11.6-14.8) Platelet Count 193 K/UL (150-450) Mean Platelet Volume 8.1 FL (6.5-10.1) Neutrophils (%) (Auto) 59.0 % (45.0-75.0) Lymphocytes (%) (Auto) 22.1 % (20.0-45.0) Monocytes (%) (Auto) 6.7 % (1.0-10.0) Eosinophils (%) (Auto) 11.5 % (0.0-3.0) H Basophils (%) (Auto) 0.8 % (0.0-2.0) Prothrombin Time 14.8 SEC (9.30-11.50) H Prothromb Time International Ratio 1.4 (0.9-1.1) H Activated Partial Thromboplast Time 32 SEC (23-33) Sodium Level 139 MMOL/L (136-145) Potassium Level 4.3 MMOL/L (3.5-5.1) Chloride Level 109 MMOL/L (98-107) H Carbon Dioxide Level 19 MMOL/L (21-32) L Anion Gap 11 mmol/L (5-15) Blood Urea Nitrogen 11 mg/dL (7-18) Creatinine 0.7 MG/DL (0.55-1.30) Estimat Glomerular Filtration Rate > 60 mL/min (>60) Glucose Level 128 MG/DL (74-106) H Calcium Level 8.6 MG/DL (8.5-10.1) Phosphorus Level 1.9 MG/DL (2.5-4.9) L Magnesium Level 1.8 MG/DL (1.8-2.4) Total Bilirubin 0.4 MG/DL (0.2-1.0) Aspartate Amino Transf (AST/SGOT) 43 U/L (15-37) H Alanine Aminotransferase (ALT/SGPT) 42 U/L (12-78) Alkaline Phosphatase 424 U/L (46-116) H Total Protein 7.7 G/DL (6.4-8.2) Albumin 2.5 G/DL (3.4-5.0) L Globulin 5.2 g/dL Albumin/Globulin Ratio 0.5 (1.0-2.7) L Height (Feet): 5 Height (Inches): 6.00 Weight (Pounds): 154 General Appearance: no apparent distress Cardiovascular: normal rate Respiratory/Chest: normal breath sounds, no respiratory distress, other - trach Abdominal Exam: normal bowel sounds, non tender, soft, GT site - c/d/i Extremities: non-tender Good Garcia NP May 21, 2018 11:37
--- NOTE | 2018-05-21 11:56 | NUR ---
NURSE NOTES: Report given to GEOVANNA kearns
[2018-05-21 12:18] VITALS: BP 104/80
--- NOTE | 2018-05-21 12:53 | NUR ---
*-* DISCHARGE PLANNED *-* PATIENT IS DISCHARGED BACK TO: [facility] ROOM# 15-A ALF T:[phone] FOR NURSE TO NURSE REPORT [facility] HAS BEEN ARRANGED FOR [facility] [facility] AT 1245 PER NICHO SET UP BY PÉREZ
--- NOTE | 2018-05-21 13:05 | NUR ---
NURSE NOTES: Picked up by ambulance ACLS with respiratory therapist,patient on ventilator,with G tube clamp,no distress,stable Addendum: 05/21/18 at 1440 by Kostas JO RN IV to heplock,dressing was changed site clear
[2018-05-21] MEDS ORDERED: Tubing IV Secondary IV ONE (13:29)
[2018-05-21] MEDS ORDERED: NS 275ml ONE (13:29)
--- NOTE | 2018-05-21 15:05 | Internal Med Progress Note ---
Subjective Physician Name Aron Peña Attending Physician Boris Arevalo MD Allergies: Coded Allergies: OXYTETRACYCLINE (Unverified Allergy, Unknown, 09/05/13) PENICILLINS (Unverified Allergy, Unknown, 06/11/17) Tolerated one dose of Cefepime 06/07/17 Tolerated Cefdinir 06/10/17 Uncoded Allergies: PLASTIC TAPE (Allergy, Mild, ITCHINESS, 08/08/15) MEDICAL TAPE (Allergy, Unknown, 12/10/16) Subjective on vent, not verbal Objective Last Vital Signs Date Time Temp Pulse Resp B/P (MAP) Pulse Ox O2 Delivery O2 Flow Rate FiO2 05/21/18 12:18 99.0 92 16 104/80 (88) 100 05/21/18 12:00 35 05/21/18 12:00 Mechanical Ventilator 05/16/18 16:00 35.0 Laboratory Tests Test 05/21/18 03:15 White Blood Count 7.7 K/UL (4.8-10.8) Red Blood Count 4.83 M/UL (4.70-6.10) Hemoglobin 14.1 G/DL (14.2-18.0) L Hematocrit 42.6 % (42.0-52.0) Mean Corpuscular Volume 88 FL (80-99) Mean Corpuscular Hemoglobin 29.3 PG (27.0-31.0) Mean Corpuscular Hemoglobin Concent 33.2 G/DL (32.0-36.0) Red Cell Distribution Width 14.0 % (11.6-14.8) Platelet Count 193 K/UL (150-450) Mean Platelet Volume 8.1 FL (6.5-10.1) Neutrophils (%) (Auto) 59.0 % (45.0-75.0) Lymphocytes (%) (Auto) 22.1 % (20.0-45.0) Monocytes (%) (Auto) 6.7 % (1.0-10.0) Eosinophils (%) (Auto) 11.5 % (0.0-3.0) H Basophils (%) (Auto) 0.8 % (0.0-2.0) Prothrombin Time 14.8 SEC (9.30-11.50) H Prothromb Time International Ratio 1.4 (0.9-1.1) H Activated Partial Thromboplast Time 32 SEC (23-33) Sodium Level 139 MMOL/L (136-145) Potassium Level 4.3 MMOL/L (3.5-5.1) Chloride Level 109 MMOL/L (98-107) H Carbon Dioxide Level 19 MMOL/L (21-32) L Anion Gap 11 mmol/L (5-15) Blood Urea Nitrogen 11 mg/dL (7-18) Creatinine 0.7 MG/DL (0.55-1.30) Estimat Glomerular Filtration Rate > 60 mL/min (>60) Glucose Level 128 MG/DL (74-106) H Calcium Level 8.6 MG/DL (8.5-10.1) Phosphorus Level 1.9 MG/DL (2.5-4.9) L Magnesium Level 1.8 MG/DL (1.8-2.4) Total Bilirubin 0.4 MG/DL (0.2-1.0) Aspartate Amino Transf (AST/SGOT) 43 U/L (15-37) H Alanine Aminotransferase (ALT/SGPT) 42 U/L (12-78) Alkaline Phosphatase 424 U/L (46-116) H Total Protein 7.7 G/DL (6.4-8.2) Albumin 2.5 G/DL (3.4-5.0) L Globulin 5.2 g/dL Albumin/Globulin Ratio 0.5 (1.0-2.7) L Microbiology Date/Time Source Procedure Growth Status 05/19/18 00:11 Urine,Clean Catch Urine Culture - Preliminary Escherichia Coli Gram Negative Bacillus 2 Resulted Intake and Output 05/20/18 05/21/18 19:00 07:00 Intake Total 1957.5 ml 1788.75 ml Output Total 2100 ml 500 ml Balance -142.5 ml 1288.75 ml Free Water 200 ml 100 ml IV Total 1097.5 ml 878.75 ml Tube Feeding 660 ml 660 ml Other 150 ml Output Urine Total 600 ml 500 ml Hemodialysis UF 1500 ml # Bowel Movements 2 2 Objective General: No acute distress, on Vent HEENT: NCAT, sclera anicteric, PERRL, Neck: Supple,Trach Lungs: mechanical breath sound, clear to auscultation bilaterally, no Wheeze or Rales. Heart: Regular rate and rhythm, normal S1/S2, no murmur Abdomen: soft, nontender, nondistended. PEG Extremities: No Cyanosis , clubbing or edema. Neuro: Limited due to his status, minimal movement. Assessment/Plan Assessment/Plan (1) Coffee ground emesis Assessment & Plan: See GI note (2) Tracheostomy care (3) Ventilator dependence Assessment & Plan: Follow pulmonary recs (4) Gastrointestinal hemorrhage Assessment & Plan: Endoscopy scheduled for 05/19/18-see GI note (5) Chronic respiratory failure (6) Dysphagia (7) HTN (hypertension) (8) Cerebral vascular disease (9) Vegetative state (10) Feeding by G-tube (11) Pneumonia Assessment & Plan: Continue cefepime and flagyl for possible aspiration pneumonia. Plan: DC to SNF today. Aron Peña MD May 21, 2018 15:05
--- NOTE | 2018-05-22 00:09 | General Progress Note ---
Assessment/Plan Assessment/Plan Assessment and recs # Anemia likely due to gastrointestinal hemorrhage --> at this time the h/h is stable --> anemia panel reviewed, pt has acd --> low threshold for gi eval --> Dr. Rudd on board, currently patient in sdu # Leukocytosis is likely related to reactive process from anmeia --> trend as needed currently improving --> low threshold for starting abx # Probable HCAP vs Asp PNA - CXR: Patchy bibasilar airspace opacities, left greater than right, most concerning for infiltrate/pneumonia. --> in the past received abx, low threshold for id eval, abx # SOB - cultures currently ngtd # Elevated LFts ==> trend, as per gi # HARDEEP, resolved # Chronic resp failure on trach/vent # Dysphagia s/p GT # Recent Fungemia Shelli tropicalis 02/2017, S/p Rx # Hx of persistent low grade CONS bacteremia 01/2017- SP Rx for presumed endocarditis/endovascular source --> Bcx 01/21 04/26 CONS, 01/23 + 03/26, 01/26, +03/26 --> TTE very limited, no vegetations seen. HUONG could not be done last admission Subjective ROS Limited/Unobtainable: Yes Allergies: Coded Allergies: OXYTETRACYCLINE (Unverified Allergy, Unknown, 09/05/13) PENICILLINS (Unverified Allergy, Unknown, 06/11/17) Tolerated one dose of Cefepime 06/07/17 Tolerated Cefdinir 06/10/17 Uncoded Allergies: PLASTIC TAPE (Allergy, Mild, ITCHINESS, 08/08/15) MEDICAL TAPE (Allergy, Unknown, 12/10/16) Subjective 05/17: seen by bedside, Trach to Vent dependent, on g-tube, scheduled EGD tomorrow,no events, cbc reviewed. 05/18: EGD rescheduled until tomorrow,wbc 14 05/19: egd w/bx, gtube adjustment done today, no events 05/20: Pt is seen by bedside, awake, comfortable, no acute distress. 05/21: seen by bedside, no acute distress. Objective Last 24 Hour Vital Signs Date Time Temp Pulse Resp B/P (MAP) Pulse Ox O2 Delivery O2 Flow Rate FiO2 05/21/18 12:18 99.0 92 16 104/80 (88) 100 05/21/18 12:00 35 05/21/18 12:00 Mechanical Ventilator 05/21/18 11:00 97 17 35 05/21/18 09:10 96 17 35 05/21/18 08:30 98.8 89 16 104/81 (89) 100 05/21/18 08:00 35 05/21/18 08:00 Mechanical Ventilator 05/21/18 07:39 95 05/21/18 07:01 91 14 100 Mechanical Ventilator 35 05/21/18 06:53 88 14 100 Mechanical Ventilator 35 05/21/18 06:53 88 14 35 05/21/18 04:54 93 18 35 05/21/18 04:00 35 05/21/18 04:00 Mechanical Ventilator 05/21/18 04:00 98.7 91 14 116/85 (95) 99 05/21/18 03:40 92 18 35 05/21/18 03:37 91 05/21/18 01:05 89 16 35 Intake and Output 05/21/18 05/22/18 19:00 07:00 Intake Total 100 ml Balance 100 ml IV Total 100 ml Laboratory Tests 05/21/18 03:15: White Blood Count 7.7, Red Blood Count 4.83, Hemoglobin 14.1L, Hematocrit 42.6, Mean Corpuscular Volume 88, Mean Corpuscular Hemoglobin 29.3, Mean Corpuscular Hemoglobin Concent 33.2, Red Cell Distribution Width 14.0, Platelet Count 193, Mean Platelet Volume 8.1, Neutrophils (%) (Auto) 59.0, Lymphocytes (%) (Auto) 22.1, Monocytes (%) (Auto) 6.7, Eosinophils (%) (Auto) 11.5H, Basophils (%) ( Auto) 0.8, Prothrombin Time 14.8H, Prothromb Time International Ratio 1.4H, Activated Partial Thromboplast Time 32, Sodium Level 139, Potassium Level 4.3, Chloride Level 109H, Carbon Dioxide Level 19L, Anion Gap 11, Blood Urea Nitrogen 11, Creatinine 0.7, Estimat Glomerular Filtration Rate > 60, Glucose Level 128H, Calcium Level 8.6, Phosphorus Level 1.9L, Magnesium Level 1.8, Total Bilirubin 0.4, Aspartate Amino Transf (AST/SGOT) 43H, Alanine Aminotransferase (ALT/SGPT) 42, Alkaline Phosphatase 424H, Total Protein 7.7, Albumin 2.5L, Globulin 5.2, Albumin/Globulin Ratio 0.5L Height (Feet): 5 Height (Inches): 6.00 Weight (Pounds): 154 Objective Sp02 EP Interpretation: reviewed General Appearance: no apparent distress Head: normocephalic, atraumatic Eyes: bilateral eye PERRL ENT: dry mucus membranes Neck: supple, other - Tracheostomy in place no crepitus Respiratory: on ventilator Cardiovascular: regular rate, rhythm Gastrointestinal: non tender, soft Musculoskeletal: other - Patient chronically debilitated, Contracted in upper and lower extremity Neurologic: responsive Alexi Bazan MD May 22, 2018 00:09
--- NOTE | 2018-05-22 20:14 | Cardiology Report ---
APPROVED REPORT EKG Measurement Heart [id number] Normal sinus rhythm Normal ECG
--- NOTE | 2018-05-24 12:45 | Discharge Summary ---
Discharge Summary Discharge Summary _ DATE OF ADMISSION: 05/15/2018 DATE OF DISCHARGE: 05/21/2018 DISCHARGED BY: Dr. Peña REASON FOR ADMISSION: 63 years old male with past medical history of ventilator dependent respiratory failure, tracheostomy status, dysphagia, G-tube, status post cerebral hemorrhage, seizure disorder, hypertension, COPD, diabetes mellitus, depression , was sent from the [facility] for evaluation due to episode of coffee-ground emesis. Upon evaluation in ED patient was afebrile , but tachycardic. Laboratory workup revealed leukocytosis Urinalysis revealed evidence of UTI. Chest x-ray revealed bibasilar opacities. Hemoglobin and hematocrit were stable. Patient was admitted for further workup and management. CONSULTANTS: pulmonary Dr. Rudd ID specialist Dr. Castillo GI specialist Dr. Rosas behavioral health professional/oncologist Dr. Bazan wrapping checker Dr. Scales [facility]SE: Patient was admitted to [facility]. GI specialist closely followed. Patient had a history of GI procedure in 2017 , which revealed gastritis. Patient was initially kept n.p.o. with IV fluids. 500 cc of gastric lavage was done. Anemia workup was initiated. Patient started on PPI twice a day. Patient subsequently undergone upper endoscopy with biopsy on 05/19 , which revealed gastritis , otherwise normal upper endoscopic examination. No evidence of any acute upper GI bleeding at this time. Biopsy of stomach revealed mild to moderate chronic gastritis. No evidence of Helicobacter infection. Tube feeding was resumed. Hemoglobin and hematocrit closely monitored with goal to keep hemoglobin above 7. GI recommended to monitor for any signs and symptoms of GI bleeding and if recurrence, recommended to consider colonoscopy. Hemoglobin and hematocrit remained stable, no further evidence of GI bleeding. Liver enzymes were closely monitored and trending down ID specialist followed. Stool for C. difficile was negative. Sputum Gram stain revealed many white blood cells, few gram-positive cocci and many gram-negative rods. Urine culture revealed E. coli and Providencia stuartii. Antibiotic provided as per ID specialist recommendation. Patient was followed-up with chest x-ray. Ventilator support and pulmonary toilet provided. Baseline ABG was done and setting titrated as needed. Per ID specialist, patient probably had aspiration pneumonia. Follow-up chest x-ray showed persistent basilar parenchymal density. Pneumonia and other possibilities were suggested. P Patient was on empiric antibiotic to cover for aspiration pneumonia. Patient was closely monitored Leukocytosis resolved, patient remained afebrile. Patient also had a history of persistent low-grade coagulase negative staph bacteremia. 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 TTE was very limited, no vegetation was seen. HUONG was unable to be done. Renal parameters and electrolytes were closely monitored. Electrolytes corrected as needed. Nephrotoxins were avoided. Acute kidney injury resolved. Personnel Specialist followed. Patient had anemia likely due to gastrointestinal hemorrhage. Anemia workup revealed evidence of anemia of chronic disease. Hemoglobin and hematocrit remained at baseline, no need for transfusion. Prior to discharge hemoglobin 14.1 hematocrit 42.6. Blood sugar was managed with sliding scale of insulin. Blood pressure was closely monitored remained stable. GI prophylaxis continue. Pain management was addressed Bowel regimen instituted. Supportive care provided. Upholsterer Inside seen and evaluated patient for bilateral diabetic foot ulcers. Wound care provided as per wrapping checker recommendation. Continue wound care at the [facility] facility. Patient clinically stabilized and was ready for transfer back to [facility] for continuation of care FINAL DIAGNOSES: Sepsis Probably aspiration pneumonia Probably UTI Chronic respiratory failure with ventilator dependency Tracheostomy status Upper GI bleeding GI hemorrhage Dysphagia , feeding by G-tube Anemia likely due to gastrointestinal hemorrhage s/p EGD with finding of gastritis Acute kidney injury- resolved Elevated LFT Cerebrovascular disease with history of history of cerebral hemorrhage Diabetes mellitus Hypertension Vegetative state Bilateral diabetic foot ulcer DISCHARGE MEDICATIONS: See Medication Reconciliation list. DISCHARGE INSTRUCTIONS: Patient was discharged to the [facility] facility. Follow up with medical doctor at the facility. I have been assigned to dictate discharge summary for this account. I was not involved in the patient's management. Taylor Bernard NP May 24, 2018 12:45
== END 2018-05-21 13:30 | DRG 720 ==
LOC: EDBD 17:48 → EMR 18:28 → EDBEDREQSVC 19:53 → 2W 20:00 → EDBEDREQ 20:12
PROC: 5A1955Z Respiratory Ventilation, Greater than 96 Consecutive Hours (ICD-10-PCS; principal; 2018-05-15)
PROC: 0DB68ZX Excision of Stomach, Via Natural or Artificial Opening Endoscopic, Diagnostic (ICD-10-PCS; 2018-05-19)
DX: A41.9 Sepsis, unspecified organism (principal); J69.0 Pneumonitis due to inhalation of food and vomit; G93.1 Anoxic brain damage, not elsewhere classified; Z99.11 Dependence on respirator [ventilator] status; R40.3 Persistent vegetative state; J96.10 Chronic respiratory failure, unspecified whether with hypoxia or hypercapnia; N17.9 Acute kidney failure, unspecified; Z43.0 Encounter for attention to tracheostomy; K92.2 Gastrointestinal hemorrhage, unspecified; R13.10 Dysphagia, unspecified; N39.0 Urinary tract infection, site not specified; B95.2 Enterococcus as the cause of diseases classified elsewhere; Z43.1 Encounter for attention to gastrostomy; D50.0 Iron deficiency anemia secondary to blood loss (chronic); I69.398 Other sequelae of cerebral infarction; R79.89 Other specified abnormal findings of blood chemistry; E11.621 Type 2 diabetes mellitus with foot ulcer; L97.529 Non-pressure chronic ulcer of other part of left foot with unspecified severity; L97.519 Non-pressure chronic ulcer of other part of right foot with unspecified severity; I10 Essential (primary) hypertension; K29.70 Gastritis, unspecified, without bleeding; Z88.0 Allergy status to penicillin; Z88.8 Allergy status to other drugs, medicaments and biological substances; J44.9 Chronic obstructive pulmonary disease, unspecified; M24.50 Contracture, unspecified joint
CPT/HCPCS: 36415; 71045; 80053; 81001; 82550; 82553; 82728; 82962; 83540; 83550; 83735; 83880; 84100; 84484; 85025; 85610; 85730; 87070; 87081; 87086; 87181; 87205; 87324; 93005; 94002; 94003; 94150; 94640; 94664; 99285; J1815; J7620; J8499

== ENCOUNTER 2019-01-22 01:43 | Inpatient (IN) | payer OTHER ==
[~2019-01-22] VITALS: Ht 167.6 cm; Wt 95.3 kg
[2019-01-22] VITALS (62 sets, daily range): BP systolic 63–112; BP diastolic 43–75
[~2019-01-22 01:43] MED LIST changes: +ALDACTAZIDE 251 EACH GT; +FOLGARD TABLET1 EAC1 GT; +KLONOPIN0.5 MG GT; +VITAMIN C500 M7 GT; +ZOFRAN4 M1 GT
--- NOTE | 2019-01-22 02:10 | NUR ---
ED Nurse Note: Patient was BIBA from [facility], due to SOB, and ALOC more then usual. Patient presented nonresponsive, BP 64/35, HR 115. Patient has tracheostomy, vent settings for this patient are: RR 16, Tidal vol 500, PEEP +5, FiO2 40%. Patient has preassure ulcers on his right AC, left foot, and sacral area, all pictures were taken and uploaded in to the computer.
[2019-01-22] MEDS ORDERED: Acetaminophen 650 MG SUPP RECTAL ONE (02:15)
[2019-01-22] MEDS ORDERED: Sodium Chloride 2,600 ML IVLG ONE (02:15)
--- NOTE | 2019-01-22 02:23 | Emergency Room Report ---
History of Present Illness General Chief Complaint: Altered Mental Status Source: Medical Record, EMS Present Illness HPI This is an unfortunate 63-year-old male prison patient who is trach and has a feeding tube. He is also very contracted. He has multiple medical problem. He presents with chief complaint of hypotension and respiratory distress. Onset was tonight. Per prison, he had a fever and then was hypotensive and in respiratory distress. 911 was called. EMS was bagging him. Unable get any history from him. EMS said at baseline is able to open his eyes but is not doing that per nursing staff. Allergies: Coded Allergies: OXYTETRACYCLINE (Unverified Allergy, Unknown, 09/05/13) PENICILLINS (Unverified Allergy, Unknown, 06/11/17) Tolerated one dose of Cefepime 06/07/17 Tolerated Cefdinir 06/10/17 Uncoded Allergies: PLASTIC TAPE (Allergy, Mild, ITCHINESS, 08/08/15) MEDICAL TAPE (Allergy, Unknown, 12/10/16) Patient History Past Medical History: see triage record, old chart reviewed Past Surgical History: other Pertinent Family History: none Social History: Denies: smoking Immunizations: other Reviewed Nursing Documentation: PMH: Agreed; PSxH: Agreed Nursing Documentation-PMH Past Medical History: No History, Except For Hx Cardiac Problems: Yes Hx COPD: Yes - vent dependent/respiratory failure Hx Diabetes: Yes Hx Cancer: No Hx Gastrointestinal Problems: Yes - ABD hernia Hx Cerebrovascular Accident: Yes Hx Transient Ischemic Attacks: Yes Hx Dementia: Yes Hx Parkinson's Disease: Yes Hx Seizures: No - Pressure ulcers right and left buttocks (2 on each side) Hx Memory Loss: Yes Hx Concentration Difficulty: Yes Hx Speech Problem: Yes Hx Dysphasia: Yes Review of Systems Constitutional: Reports: fever, weakness Respiratory: Reports: shortness of breath All Other Systems: limited - secondary to patient's condition Physical Exam Vital Signs Date Time Temp Pulse Resp B/P (MAP) Pulse Ox O2 Delivery O2 Flow Rate FiO2 01/22/19 01:45 130 24 72/51 (58) 100 Mechanical Ventilator 01/22/19 01:57 40 01/22/19 02:05 45.0 Vitals with hypotension Sp02 EP Interpretation: reviewed, normal General Appearance: severe distress, Chronically Ill Head: normocephalic, atraumatic Eyes: bilateral eye PERRL, bilateral eye EOMI ENT: dry mucus membranes Neck: other - Is chronically stiff, tracheotomy Respiratory: chest non-tender, respiratory distress, decreased breath sounds, accessory muscle use, rhonchi Cardiovascular #1: regular rate, rhythm, no murmur, tachycardia Gastrointestinal: normal bowel sounds, non tender, no mass, no organomegaly, no bruit, non-distended, other - G-tube Musculoskeletal: other - All 4 extremities severely contracted Neurologic: other - extremities contracted. grimace to pain Procedures Critical Care Time Critical Care Time Critical care is mandated in this patient who presented with septic shock from pneumonia. Patient require my urgent intervention to attenuate the risks of metabolic collapse which may lead to cardiovascular collapse and . Critical care time is 35 minutes excluding any reportable procedure. Critical care time included evaluation, multiple reevaluation, looking at old charts, interpreting laboratory and diagnostic data, discussing case with patient and family and consultants, and charting. Central Line Central Line : Consent: Emergent Central Line Lumen: triple Maximal Sterile Barrier Tech: yes cap, yes mask, yes sterile gown, yes sterile gloves, yes large sterile sheet, yes hand hygiene, yes chlorhexidine prep Central Line Postion: internal jugular (R) Complications: none Central Line Post Position: sutured, good blood return Attempts: One Patient Tolerated: Well Complications: None Progress Patient was very contracted. Because of blood pressure was very low, I placed a central line. A right IJ central line was placed using ultrasound as a guide. This was done under sterile condition with maximal active barrier. Triple-lumen placed without any difficulty. X-ray showed no pneumothorax. Medical Decision Making Diagnostic Impression: Primary Impression: Septic shock Additional Impressions: HCAP (healthcare-associated pneumonia) Respiratory failure, acute and chronic Qualified Codes: J96.21 - Acute and chronic respiratory failure with hypoxia Acute metabolic encephalopathy HARDEEP (acute kidney injury) Hyponatremia ER Course Patient presents with septic shock. This is clear from pneumonia. Possible aspiration pneumonia. He required a central line for IV access and possible pressors. With IV fluid and antibiotics, he is more awake. Opening his eyes. This appeared to be his baseline. He is very contracted. Unable to pass a Brooks because they seem to be stenosis just past the head of the penis. In the past he grew out multidrug-resistant Pseudomonas in the sputum. Sensitive to gentamicin. He also grew out E. coli in his urine which is sensitive to Levaquin. Also grew out over dementia and the urine is sensitive to imipenem. Antibiotics given to cover for these bugs. I discussed case with Dr. Arevalo who accepted pt for admission. Sepsis reevaluation: Vital signs showed decreased tachycardia. Blood pressure improved but still hypotensive General appearance: More awake. Opening eyes. Lungs: Good air movement from ventilator. Cardiovascular: HR improved. Abd: soft Ext: contracted Cap refill: less 2 sec. EKG Diagnostic Results Rate: tachycardiac Rhythm: NSR ST Segments: no acute changes Rhythm Strip Diag. Results EP Interpretation: yes Rate: 105 Rhythm: NSR, no PVC's, no ectopy Chest X-Ray Diagnostic Results Chest X-Ray Diagnostic Results : Chest X-Ray Ordered: Yes # of Views/Limited/Complete: 1 View Indication: Shortness of Breath EP Interpretation: Yes Interpretation: no effusion, no pneumothorax, other - TLC in good position. no ptx. b/l infiltrates Impression: Other - b/l infiltrates. TLC Electronically Signed by: Brooks Garcia MD Last Vital Signs Date Time Temp Pulse Resp B/P (MAP) Pulse Ox O2 Delivery O2 Flow Rate FiO2 01/22/19 02:05 80 16 100 Mechanical Ventilator 45.0 40 01/22/19 01:45 72/51 (58) Status: improved Disposition: ADMITTED INPATIENT Condition: Critical Referrals: Boris Arevalo MD (PCP) Brooks Garcia MD Jan 22, 2019 02:23
[2019-01-22 02:30] LABS: HEMATOCRIT 36.2 % (42.0-52.0); HEMOGLOBIN 12.6 G/DL (14.2-18.0); MEAN CORPUSCULAR VOLUME 86 FL (80-99); PLATELET COUNT 236 K/UL (150-450); RED BLOOD COUNT 4.22 M/UL (4.70-6.10); RED CELL DISTRIBUTION WIDTH 14.1 % (11.6-14.8)
[2019-01-22] MEDS ORDERED: Albuterol ud Inhalation HHN ONE (02:30)
[2019-01-22 02:38] LABS: ANION GAP 8 mmol/L (5-15); BLOOD UREA NITROGEN 79 mg/dL (7-18); CALCIUM 9.2 MG/DL (8.5-10.1); CARBON DIOXIDE 26 MMOL/L (21-32); CHLORIDE 93 MMOL/L (98-107); CREATININE 1.4 MG/DL (0.55-1.30); INR 1.2 (0.9-1.1); POTASSIUM 5.2 MMOL/L (3.5-5.1); SODIUM 127 MMOL/L (136-145)
--- NOTE | 2019-01-22 02:40 | NUR ---
ED Nurse Note: Interna jagular tripple lumen IV line was placed by Dr. Garcia, patient tolerated procedure well.
[2019-01-22 02:43] LABS: ALANINE AMINOTRANSFERASE 31 U/L (12-78); ALBUMIN 1.6 G/DL (3.4-5.0); ALBUMIN/GLOBULIN RATIO 0.3 (1.0-2.7); ALKALINE PHOSPHATASE 252 U/L (46-116); ASPARTATE AMINO TRANSFERASE 34 U/L (15-37); BILIRUBIN,TOTAL 0.4 MG/DL (0.2-1.0)
[2019-01-22 02:46] LABS: WHITE BLOOD COUNT 25.2 K/UL (4.8-10.8)
[2019-01-22] MEDS ORDERED: Meropenem 1 GM in NS 110 ML IV SCH (03:00)
--- NOTE | 2019-01-22 03:24 | NUR ---
ED Nurse Note: After all medications and fluids, patient become more responsive, open his eyes.
--- NOTE | 2019-01-22 03:26 | Diagnostic Imaging Report ---
EXAM: XR Chest, 1 View CLINICAL HISTORY: SOB TECHNIQUE: Frontal view of the chest. COMPARISON: 05 19 18 FINDINGS: Lungs: There appears to be some consolidation in the right lung base no evidence for effusions. There is some consolidation in the left lung base with blunting of the costophrenic angle. Pleural space: Unremarkable. No pneumothorax. Heart: Unremarkable. No cardiomegaly. Mediastinum: Unremarkable. Bones joints: Unremarkable. IMPRESSION: Bibasilar infiltrates
--- NOTE | 2019-01-22 03:45 | NUR ---
ED Nurse Note: Norepinephrine was started at rate 2 mcg/min which is 7.5 mL/hr.
--- NOTE | 2019-01-22 04:45 | NUR ---
ED Nurse Note: Patient was admited to ICU due to sepdid, ALOC, more than usual, SOB. Patient was transfered to the unit via gurney by ACLS protocol, pt has no belongings. Patient was transfered with Norepinephrine on running at rate 24 mcg/min. AAO x0, BP 112/62, other VSS at this time.
--- NOTE | 2019-01-22 05:15 | NUR ---
NURSE NOTES: Received patient with eyes closed. Sinus tach on the monitor with HR 115. trach to vent Portex 7 on AC 16, Vt 500, peep 5, fio2 40%. Right IJ TLC running Levophed at 18 mcg/min. Patient noted to have multiple wounds and contracted. Condom cath draining. Wound care provided at this time. Bed in lowest position, side rails upx3. Will Call MD Arevalo for admission orders.
[2019-01-22 05:30] LABS: APPEARANCE,URINE CLEAR; BILIRUBIN, URINE NEGATIVE (NEGATIVE); GLUCOSE, URINE (UA) NEGATIVE (NEGATIVE); KETONES,URINE NEGATIVE (NEGATIVE); LEUKOCYTE ESTERASE ,URINE 2+ (NEGATIVE); NITRITE,URINE NEGATIVE (NEGATIVE); PH,URINE 5 (4.5-8.0); PROTEIN,URINE 2+ (NEGATIVE); UROBILINOGEN,URINE NORMAL MG/DL (0.0-1.0)
--- NOTE | 2019-01-22 05:30 | NUR ---
NURSE NOTES: Dr Arevalo called back, new orders noted and carried out. Will continue to monitor.
[2019-01-22 05:44] LABS: COLOR,URINE YELLOW
[2019-01-22] MEDS ORDERED: HYDROcodone/Acetamin 10/325 tab ORAL PRN (06:15)
[2019-01-22] MEDS ORDERED: Acetaminophen 650mg/20.3ml GT PRN (06:15)
[2019-01-22] MEDS ORDERED: Docusate 100mg/10ml Liq NG PRN (06:15)
[2019-01-22] MEDS ORDERED: NovoLOG Insulin Flexpen SUBQ SCH (06:30)
[2019-01-22] MEDS ORDERED: Vancomycin 1.5gm/NS Premix IVPB ONE (07:30)
--- NOTE | 2019-01-22 07:30 | NUR ---
HAND-OFF: Report given to GEOVANNA Ordonez.
--- NOTE | 2019-01-22 07:30 | NUR ---
NURSE NOTES: Received report from GEOVANNA Zhong. Patient is obtunded. Portex 7 with vent setting AC 16, VT 500, Peep 5 adn FiO2 40%. Gtube intact and NPO. Condom cath intact and draining with yellow urine. Multiple wound noted. Right IJ TLC intact with dry blood and running with levophed 24mcg/min. Kept dry, clean, comfortable and HOB>30. Call light placed in easy reach. Will continue plan of care.
--- NOTE | 2019-01-22 07:59 | Pulmonolgy Critical Care Note ---
Critical Care - Asmt/Plan Problems: (1) Septic shock (2) HCAP (healthcare-associated pneumonia) (3) Chronic respiratory failure (4) Ventilator dependence (5) Vegetative state (6) HARDEEP (acute kidney injury) (7) History of CVA (cerebrovascular accident) (8) Feeding by G-tube (9) HTN (hypertension) (10) Cerebral vascular disease Respiratory: monitor respiratory rate, adjust FIO2, CXR Cardiac: continue to monitor HR/BP Renal: F/U I&O, check electrolytes Infectious Disease: check cultures Gastrointestinal: hold feedings Endocrine: monitor blood sugar Hematologic: transfuse if hgb<8.5 Neurologic: PRN Ativan, PRN Morphine, keep patient comfortable Affect: PRN ativan Prophylaxis: Protonix, Heparin Notes Reviewed: nylon winder, cardio Discussed with: nurses, consultants, rn case managementsystems development manager - Objective Last 24 Hour Vital Signs Date Time Temp Pulse Resp B/P (MAP) Pulse Ox O2 Delivery O2 Flow Rate FiO2 01/22/19 07:00 87/60 01/22/19 06:38 40 01/22/19 06:02 Mechanical Ventilator 01/22/19 05:20 90 22 40 01/22/19 04:45 99.8 105 16 112/62 100 Mechanical Ventilator 40 01/22/19 04:45 99.8 101 16 112/62 100 Mechanical Ventilator 45.0 40 01/22/19 04:40 112/62 01/22/19 04:35 99/56 01/22/19 04:30 107/67 01/22/19 04:25 88/58 01/22/19 04:20 88/59 01/22/19 04:15 87/67 01/22/19 04:10 85/65 01/22/19 04:05 89/60 01/22/19 04:00 85/55 01/22/19 03:55 83/51 01/22/19 03:50 99.8 101 24 82/51 100 Mechanical Ventilator 45.0 40 01/22/19 03:50 82/51 01/22/19 03:45 76/43 01/22/19 02:59 99.8 01/22/19 02:50 99.9 101 24 67/45 100 Mechanical Ventilator 45.0 40 01/22/19 02:42 114 26 40 01/22/19 02:35 116 26 100 Mechanical Ventilator 45.0 40 117 26 100 01/22/19 02:05 80 16 100 Mechanical Ventilator 45.0 40 01/22/19 01:57 78 16 40 01/22/19 01:50 109 24 Mechanical Ventilator 01/22/19 01:50 102.1 109 24 63/43 100 Mechanical Ventilator 01/22/19 01:45 130 24 72/51 (58) 100 Mechanical Ventilator Status: obtunded Condition: critical HEENT: atraumatic Neck: full ROM Lungs: clear Heart: HR/BP stable Abdomen: soft, non-tender Extremities: no C/C/E Micro: Microbiology Date/Time Source Procedure Growth Status 01/22/19 02:10 Rectum Received Critical Care - Subjective ROS Limited/Unobtainable: Yes Condition: critical EKG Rhythm: Sinus Rhythm FI02: 40 Vent Support Breath Rate: 16 Vent Support Mode: AC Vent Tidal Volume: 500 Sputum Amount: Small PEEP: 5.0 PIP: 22 I&O: Intake and Output 01/21/19 01/22/19 19:00 07:00 Intake Total 0 ml Output Total 200 ml Balance -200 ml Intake Oral 0 ml Output Urine Total 200 ml CXR: trach intact, LLL infiltrate Labs: Laboratory Tests Test 01/22/19 02:10 01/22/19 02:26 01/22/19 04:11 01/22/19 04:45 White Blood Count 25.2 K/UL (4.8-10.8) *H Red Blood Count 4.22 M/UL (4.70-6.10) L Hemoglobin 12.6 G/DL (14.2-18.0) L Hematocrit 36.2 % (42.0-52.0) L Mean Corpuscular Volume 86 FL (80-99) Mean Corpuscular Hemoglobin 29.9 PG (27.0-31.0) Mean Corpuscular Hemoglobin Concent 34.8 G/DL (32.0-36.0) Red Cell Distribution Width 14.1 % (11.6-14.8) Platelet Count 236 K/UL (150-450) Mean Platelet Volume 9.6 FL (6.5-10.1) Neutrophils (%) (Auto) % (45.0-75.0) Lymphocytes (%) (Auto) % (20.0-45.0) Monocytes (%) (Auto) % (1.0-10.0) Eosinophils (%) (Auto) % (0.0-3.0) Basophils (%) (Auto) % (0.0-2.0) Differential Total Cells Counted 100 Neutrophils % (Manual) 63 % (45-75) Lymphocytes % (Manual) 9 % (20-45) L Monocytes % (Manual) 14 % (1-10) H Eosinophils % (Manual) 2 % (0-3) Basophils % (Manual) 1 % (0-2) Band Neutrophils 11 % (0-8) H Platelet Estimate Adequate Platelet Morphology Normal Red Blood Cell Morphology Normal Prothrombin Time 13.0 SEC (9.30-11.50) H Prothromb Time International Ratio 1.2 (0.9-1.1) H Activated Partial Thromboplast Time 33 SEC (23-33) Sodium Level 127 MMOL/L (136-145) L Potassium Level 5.2 MMOL/L (3.5-5.1) H Chloride Level 93 MMOL/L (98-107) L Carbon Dioxide Level 26 MMOL/L (21-32) Anion Gap 8 mmol/L (5-15) Blood Urea Nitrogen 79 mg/dL (7-18) H Creatinine 1.4 MG/DL (0.55-1.30) H Estimat Glomerular Filtration Rate 51.5 mL/min (>60) Glucose Level 160 MG/DL (74-106) H Lactic Acid Level 3.30 mmol/L (0.4-2.0) H 2.70 mmol/L (0.66-2.22) H Calcium Level 9.2 MG/DL (8.5-10.1) Total Bilirubin 0.4 MG/DL (0.2-1.0) Aspartate Amino Transf (AST/SGOT) 34 U/L (15-37) Alanine Aminotransferase (ALT/SGPT) 31 U/L (12-78) Alkaline Phosphatase 252 U/L (46-116) H Troponin I 0.000 ng/mL (0.000-0.056) Total Protein 6.9 G/DL (6.4-8.2) Albumin 1.6 G/DL (3.4-5.0) L Globulin 5.3 g/dL Albumin/Globulin Ratio 0.3 (1.0-2.7) L Arterial Blood pH 7.453 (7.350-7.450) Arterial Blood Partial Pressure CO2 31.4 mmHg (35.0-45.0) L Arterial Blood Partial Pressure O2 92.2 mmHg (75.0-100.0) Arterial Blood HCO3 21.5 mmol/L (22.0-26.0) L Arterial Blood Oxygen Saturation 97.1 % (95-100) Arterial Blood Base Excess -1.6 (-2-2) Melvin Test Positive Urine Color Yellow Urine Appearance Clear Urine pH 5 (4.5-8.0) Urine Specific Preston 1.015 (1.005-1.035) Urine Protein 2+ (NEGATIVE) H Urine Glucose (UA) Negative (NEGATIVE) Urine Ketones Negative (NEGATIVE) Urine Blood 4+ (NEGATIVE) H Urine Nitrite Negative (NEGATIVE) Urine Bilirubin Negative (NEGATIVE) Urine Urobilinogen Normal MG/DL (0.0-1.0) Urine Leukocyte Esterase 2+ (NEGATIVE) H Urine RBC 5-10 /HPF (0 - 0) H Urine WBC 15-20 /HPF (0 - 0) H Urine Squamous Epithelial Cells Occasional /LPF Urine Bacteria Moderate /HPF (NONE) H Test 01/22/19 07:25 Arterial Blood pH 7.369 (7.350-7.450) Arterial Blood Partial Pressure CO2 34.0 mmHg (35.0-45.0) L Arterial Blood Partial Pressure O2 96.3 mmHg (75.0-100.0) Arterial Blood HCO3 19.2 mmol/L (22.0-26.0) L Arterial Blood Oxygen Saturation 97.1 % (95-100) Arterial Blood Base Excess -5.3 (-2-2) L Melvin Test Positive Sagar Rudd MD Jan 22, 2019 07:59
[2019-01-22] MEDS: NovoLOG Insulin Flexpen SUBQ SCH ×4 (08:02→20:58)
[2019-01-22] MEDS: Albuterol ud Inhalation HHN SCH ×3 (08:04→20:38)
--- NOTE | 2019-01-22 08:09 | NUR ---
RESPIRATORY NOTE: received pt on current vent settings. tracheostomy size portex 8, secured via trach tie/guard. pt in no apparent resp distress. morning ABG taken and resulted. alarms are set appropriately with ambu bag at bedside. will cont to monitor.
--- NOTE | 2019-01-22 08:20 | NUR ---
NURSE NOTES: Seen by Dr. Rudd and assessed patient.
[2019-01-22] MEDS: Vitamin D 1000 IU Tab GT SCH (09:03)
[2019-01-22] MEDS: Pantoprazole Inj IVP SCH ×2 (09:04→20:55)
[2019-01-22] MEDS: Heparin 5000 units/ml inj SUBQ SCH ×2 (09:05→20:57)
--- NOTE | 2019-01-22 09:10 | NUR ---
NURSE NOTES: Seen by Dr. Rivera and informed that unable to insert hernández catheter d/t obstruction of urethral and urinary retension 190ml per US renal. He said he will order flomax and he will review. Put condom cath on. Will continue plan of care.
[2019-01-22 09:23] LABS: CHOLESTEROL < 50 MG/DL (< 200); HDL CHOLESTEROL 8 MG/DL (40-60); TRIGLYCERIDES 107 MG/DL (30-150)
[2019-01-22 09:36] LABS: CREATINE KINASE 91 U/L (26-308)
--- NOTE | 2019-01-22 10:08 | Consultation ---
Consult Note Consult Note asked to eval for renal failure and electrolyte imbalance patient seen examined discussed with SEAM FINISHER: This is an unfortunate 63-year-old male half-way patient who is trach and has a feeding tube. He is also very contracted. He has multiple medical problem. He presents with chief complaint of hypotension and respiratory distress. Onset was tonight. Per half-way, he had a fever and then was hypotensive and in respiratory distress. 911 was called. EMS was bagging him. Unable get any history from him. EMS said at baseline is able to open his eyes but is not doing that per nursing staff. Allergies: OXYTETRACYCLINE (Unverified Allergy, Unknown, 09/05/13) PENICILLINS (Unverified Allergy, Unknown, 06/11/17) Tolerated one dose of Cefepime 06/07/17 Tolerated Cefdinir 06/10/17 Uncoded Allergies: PLASTIC TAPE (Allergy, Mild, ITCHINESS, 08/08/15) MEDICAL TAPE (Allergy, Unknown, 12/10/16) Past Medical History: No History, Except For Hx Cardiac Problems: Yes Hx COPD: Yes - vent dependent/respiratory failure Hx Diabetes: Yes Hx Gastrointestinal Problems: Yes - ABD hernia Hx Cerebrovascular Accident: Yes Hx Transient Ischemic Attacks: Yes Hx Dementia: Yes Hx Parkinson's Disease: Yes Hx Seizures: No - Pressure ulcers right and left buttocks (2 on each side) Hx Memory Loss: Yes Hx Concentration Difficulty: Yes Hx Speech Problem: Yes Hx Dysphasia: Yes . Assessment/Plan HARDEEP (acute kidney injury) HypoNatremia Septic shock Others: HCAP (healthcare-associated pneumonia) Chronic respiratory failure Ventilator dependence Vegetative state History of CVA (cerebrovascular accident) Feeding by G-tube HTN (hypertension) Cerebral vascular disease Plan: Hydrate monitor renal parameters Midodrine Antibiotics Avoid nephrotoxics Brooks could not be put in due to resistance start flomax per order Sergey Rivera MD Jan 22, 2019 10:08
[2019-01-22] MEDS: Tamsulosin 0.4mg cap ORAL SCH ×2 (10:12→17:20)
[2019-01-22] MEDS: D5NS 1,000 ML IV SCH ×2 (10:12→19:57)
[2019-01-22 10:21] LABS: APPEARANCE,URINE CLEAR; BILIRUBIN, URINE NEGATIVE (NEGATIVE); GLUCOSE, URINE (UA) NEGATIVE (NEGATIVE); KETONES,URINE NEGATIVE (NEGATIVE); LEUKOCYTE ESTERASE ,URINE 1+ (NEGATIVE); NITRITE,URINE NEGATIVE (NEGATIVE); PH,URINE 5 (4.5-8.0); PROTEIN,URINE 2+ (NEGATIVE); UROBILINOGEN,URINE NORMAL MG/DL (0.0-1.0)
[2019-01-22 10:33] LABS: COLOR,URINE YELLOW
[2019-01-22 10:49] LABS: HEMATOCRIT 40.2 % (42.0-52.0); MEAN CORPUSCULAR VOLUME 89 FL (80-99); PLATELET COUNT 232 K/UL (150-450); RED BLOOD COUNT 4.49 M/UL (4.70-6.10); RED CELL DISTRIBUTION WIDTH 14.7 % (11.6-14.8)
[2019-01-22 10:51] LABS: WHITE BLOOD COUNT 30.7 K/UL (4.8-10.8)
--- NOTE | 2019-01-22 10:54 | Consultation ---
History of Present Illness General Date patient seen: Jan 22, 2019 Chief Complaint: Altered Mental Status Reason for Consultation: Sepsis Present Illness HPI Mr. Mike is a 63 yo male who was sent to the ED on 01/21/19 for hypotension, fever and respiratory distress. He is not following at this time so hitory obtained from the charts. His baseline per reports is to open his eyes. In the ED he was Febrile to 102 and had leukocytosis. His CXR showed B/L Opacities. he was started on Broad spectrum abx and sent to the [facility]. ID was consulted for Sepsis PMHx/PSHx DM COPD CVA Dementia Parkinsons Cardiac issues Vent dependent with trach G tube SocHx Unable to obtain FamHx Unable to obtain Allergies: Coded Allergies: OXYTETRACYCLINE (Unverified Allergy, Unknown, 09/05/13) PENICILLINS (Unverified Allergy, Unknown, 06/11/17) Tolerated one dose of Cefepime 06/07/17 Tolerated Cefdinir 06/10/17 Uncoded Allergies: PLASTIC TAPE (Allergy, Mild, ITCHINESS, 08/08/15) MEDICAL TAPE (Allergy, Unknown, 12/10/16) Medication History Scheduled Albuterol Sulfate* (Albuterol Sulfate Hhn*), 3 ML INH Q6H, (Reported) Atorvastatin Calcium* (Atorvastatin Calcium*), 10 MG GT BEDTIME, (Reported) Cholecalciferol (Vitamin D3)* (Vitamin D*), 5,000 UNIT GT DAILY, (Reported) Docusate Sodium* (Docusate Sodium*), 100 MG GT DAILY, (Reported) Heparin Sod (Porcine) (Heparin Sodium*), 5,000 UNITS SUBQ EVERY 12 HOURS, ( Reported) Polyethylene Glycol 3350* (Miralax*), 17 GM GT DAILY, (Reported) Scheduled PRN Acetaminophen (Acetaminophen), 650 MG ORAL Q4HR PRN for Prn Headache/Temp > 101, (Reported) Hydrocodone/Acetaminophen (Hydrocodon-Acetaminophn 10-325), 1 TAB ORAL EVERY 12 HOURS PRN for For Pain, (Reported) Ondansetron (Zofran), 4 MG GT Q6H PRN for Nausea & Vomiting, (Reported) Miscellaneous Medications Insulin Lispro (Humalog), 0 SUBQ, (Reported) Vit D3/Folic Acid/B2/B6/B12 (Folgard Tablet), 1 EACH GT, (Reported) Discontinued Medications Acetaminophen (Tylenol), 325 MG GT Q4HR PRN for fever, (Reported) Discontinued Reason: Pt stopped taking med Amantadine Hcl* (Amantadine*), 100 MG GT DAILY, (Reported) Discontinued Reason: MD discontinued med Ascorbate Calcium (Vitamin C), 500 MG GT, (Reported) Discontinued Reason: MD discontinued med Ascorbic Acid* (Vitamin C*), 500 MG ORAL DAILY, (Reported) Discontinued Reason: MD discontinued med Aspirin* (Aspir 81*), 81 MG GT DAILY, (Reported) Discontinued Reason: MD discontinued med Bisacodyl* (Dulcolax*), 10 MG RECTAL ONCE, (Reported) Discontinued Reason: MD discontinued med Chlorhexidine Gluconate (Chlorhexidine Gluconate), 15 ML GT TWICE A DAY, ( Reported) Discontinued Reason: MD discontinued med Clonazepam* (Klonopin*), 0.5 MG GT DAILY, (Reported) Discontinued Reason: MD discontinued med Folic Acid* (Folic Acid*), 1 MG GT DAILY, (Reported) Discontinued Reason: MD discontinued med Hydrocodone Bit/Acetaminophen 10-325* ([place] 10-325*), 1 TAB GT Q12HR PRN for For Pain, (Reported) Discontinued Reason: Pt stopped taking med Lorazepam* (Lorazepam*), 0.5 MG GT Q6HR PRN for For Anxiety, (Reported) Discontinued Reason: MD discontinued med Midodrine (Midodrine HCl), 10 MG GT Q8HR Discontinued Reason: MD discontinued med Multivitamin Liquid* (Multi-Delyn*), 5 ML GT DAILY, (Reported) Discontinued Reason: MD discontinued med Omeprazole (Omeprazole), 20 MG GT DAILY, (Reported) Discontinued Reason: MD discontinued med Potassium Chloride (Potassium Chloride), 40 MEQ GT DAILY, (Reported) Discontinued Reason: MD discontinued med Spironolact/Hydrochlorothiazid (Aldactazide 25-25 Tablet), 1 TAB GT DAILY, ( Reported) Discontinued Reason: MD discontinued med Warfarin Sod* (Coumadin*), 5 MG GT DAILY, (Reported) Discontinued Reason: MD discontinued med Zinc Sulfate (Zinc Sulfate*), 220 MG GT DAILY, (Reported) Discontinued Reason: MD discontinued med Patient History Healthcare decision maker Chantel Mike - Resuscitation status Advanced Directive on File Review of Systems ROS Narrative Unable to obtain Physical Exam Last 24 Hour Vital Signs Date Time Temp Pulse Resp B/P (MAP) Pulse Ox O2 Delivery O2 Flow Rate FiO2 01/22/19 10:00 103 23 94/65 (75) 100 01/22/19 09:45 104 24 94/65 (75) 100 01/22/19 09:44 97/69 01/22/19 09:30 105 25 97/69 (78) 100 01/22/19 09:15 106 24 97/69 (78) 100 01/22/19 09:14 106 24 40 01/22/19 09:00 106 21 97/69 (78) 100 01/22/19 08:45 104 21 94/60 (71) 100 01/22/19 08:30 106 22 94/60 (71) 100 01/22/19 08:15 104 21 94/60 (71) 100 01/22/19 08:04 106 18 100 Mechanical Ventilator 40 106 16 40 01/22/19 08:00 106 01/22/19 08:00 98.2 106 19 94/60 (71) 100 01/22/19 08:00 Trach Collar 01/22/19 07:45 104 19 94/60 (71) 100 01/22/19 07:30 104 18 94/60 (71) 100 01/22/19 07:15 103 18 89/59 (69) 100 01/22/19 07:00 106 19 89/59 (69) 100 01/22/19 07:00 87/60 01/22/19 06:38 40 01/22/19 06:02 Mechanical Ventilator 01/22/19 05:20 90 22 40 01/22/19 04:45 99.8 105 16 112/62 100 Mechanical Ventilator 40 01/22/19 04:45 99.8 101 16 112/62 100 Mechanical Ventilator 45.0 40 01/22/19 04:40 112/62 01/22/19 04:35 99/56 01/22/19 04:30 107/67 01/22/19 04:25 88/58 01/22/19 04:20 88/59 01/22/19 04:15 87/67 01/22/19 04:10 85/65 01/22/19 04:05 89/60 01/22/19 04:00 85/55 01/22/19 03:55 83/51 01/22/19 03:50 99.8 101 24 82/51 100 Mechanical Ventilator 45.0 40 01/22/19 03:50 82/51 01/22/19 03:45 76/43 01/22/19 02:59 99.8 01/22/19 02:50 99.9 101 24 67/45 100 Mechanical Ventilator 45.0 40 01/22/19 02:42 114 26 40 01/22/19 02:35 116 26 100 Mechanical Ventilator 45.0 40 117 26 100 01/22/19 02:05 80 16 100 Mechanical Ventilator 45.0 40 01/22/19 01:57 78 16 40 01/22/19 01:50 109 24 Mechanical Ventilator 01/22/19 01:50 102.1 109 24 63/43 100 Mechanical Ventilator 01/22/19 01:45 130 24 72/51 (58) 100 Mechanical Ventilator Intake and Output 01/21/19 01/22/19 19:00 07:00 Intake Total 0 ml Output Total 200 ml Balance -200 ml Intake Oral 0 ml Output Urine Total 200 ml Laboratory Tests Test 01/22/19 02:10 01/22/19 02:26 01/22/19 04:11 01/22/19 04:45 White Blood Count 25.2 K/UL (4.8-10.8) *H Red Blood Count 4.22 M/UL (4.70-6.10) L Hemoglobin 12.6 G/DL (14.2-18.0) L Hematocrit 36.2 % (42.0-52.0) L Mean Corpuscular Volume 86 FL (80-99) Mean Corpuscular Hemoglobin 29.9 PG (27.0-31.0) Mean Corpuscular Hemoglobin Concent 34.8 G/DL (32.0-36.0) Red Cell Distribution Width 14.1 % (11.6-14.8) Platelet Count 236 K/UL (150-450) Mean Platelet Volume 9.6 FL (6.5-10.1) Neutrophils (%) (Auto) % (45.0-75.0) Lymphocytes (%) (Auto) % (20.0-45.0) Monocytes (%) (Auto) % (1.0-10.0) Eosinophils (%) (Auto) % (0.0-3.0) Basophils (%) (Auto) % (0.0-2.0) Differential Total Cells Counted 100 Neutrophils % (Manual) 63 % (45-75) Lymphocytes % (Manual) 9 % (20-45) L Monocytes % (Manual) 14 % (1-10) H Eosinophils % (Manual) 2 % (0-3) Basophils % (Manual) 1 % (0-2) Band Neutrophils 11 % (0-8) H Platelet Estimate Adequate Platelet Morphology Normal Red Blood Cell Morphology Normal Prothrombin Time 13.0 SEC (9.30-11.50) H Prothromb Time International Ratio 1.2 (0.9-1.1) H Activated Partial Thromboplast Time 33 SEC (23-33) Sodium Level 127 MMOL/L (136-145) L Potassium Level 5.2 MMOL/L (3.5-5.1) H Chloride Level 93 MMOL/L (98-107) L Carbon Dioxide Level 26 MMOL/L (21-32) Anion Gap 8 mmol/L (5-15) Blood Urea Nitrogen 79 mg/dL (7-18) H Creatinine 1.4 MG/DL (0.55-1.30) H Estimat Glomerular Filtration Rate 51.5 mL/min (>60) Glucose Level 160 MG/DL (74-106) H Osmolality 305 mOsm/kg (297-317) Lactic Acid Level 3.30 mmol/L (0.4-2.0) H 2.70 mmol/L (0.66-2.22) H Uric Acid 6.5 MG/DL (2.6-7.2) Calcium Level 9.2 MG/DL (8.5-10.1) Total Bilirubin 0.4 MG/DL (0.2-1.0) Aspartate Amino Transf (AST/SGOT) 34 U/L (15-37) Alanine Aminotransferase (ALT/SGPT) 31 U/L (12-78) Alkaline Phosphatase 252 U/L (46-116) H Total Creatine Kinase 91 U/L (26-308) Troponin I 0.000 ng/mL (0.000-0.056) Total Protein 6.9 G/DL (6.4-8.2) Albumin 1.6 G/DL (3.4-5.0) L Globulin 5.3 g/dL Albumin/Globulin Ratio 0.3 (1.0-2.7) L Triglycerides Level 107 MG/DL (30-150) Cholesterol Level < 50 MG/DL (< 200) LDL Cholesterol 14 mg/dL (<100) HDL Cholesterol 8 MG/DL (40-60) L Cholesterol/HDL Ratio 6.3 (3.3-4.4) H Thyroid Stimulating Hormone (TSH) 1.200 uiU/mL (0.358-3.740) Arterial Blood pH 7.453 (7.350-7.450) Arterial Blood Partial Pressure CO2 31.4 mmHg (35.0-45.0) L Arterial Blood Partial Pressure O2 92.2 mmHg (75.0-100.0) Arterial Blood HCO3 21.5 mmol/L (22.0-26.0) L Arterial Blood Oxygen Saturation 97.1 % (95-100) Arterial Blood Base Excess -1.6 (-2-2) Melvin Test Positive Urine Color Yellow Urine Appearance Clear Urine pH 5 (4.5-8.0) Urine Specific [place] 1.015 (1.005-1.035) Urine Protein 2+ (NEGATIVE) H Urine Glucose (UA) Negative (NEGATIVE) Urine Ketones Negative (NEGATIVE) Urine Blood 4+ (NEGATIVE) H Urine Nitrite Negative (NEGATIVE) Urine Bilirubin Negative (NEGATIVE) Urine Urobilinogen Normal MG/DL (0.0-1.0) Urine Leukocyte Esterase 2+ (NEGATIVE) H Urine RBC 5-10 /HPF (0 - 0) H Urine WBC 15-20 /HPF (0 - 0) H Urine Squamous Epithelial Cells Occasional /LPF Urine Bacteria Moderate /HPF (NONE) H Test 01/22/19 07:25 01/22/19 10:00 01/22/19 10:37 Arterial Blood pH 7.369 (7.350-7.450) Arterial Blood Partial Pressure CO2 34.0 mmHg (35.0-45.0) L Arterial Blood Partial Pressure O2 96.3 mmHg (75.0-100.0) Arterial Blood HCO3 19.2 mmol/L (22.0-26.0) L Arterial Blood Oxygen Saturation 97.1 % (95-100) Arterial Blood Base Excess -5.3 (-2-2) L Melvin Test Positive Urine Color Yellow Urine Appearance Clear Urine pH 5 (4.5-8.0) Urine Specific [place] 1.010 (1.005-1.035) Urine Protein 2+ (NEGATIVE) H Urine Glucose (UA) Negative (NEGATIVE) Urine Ketones Negative (NEGATIVE) Urine Blood 2+ (NEGATIVE) H Urine Nitrite Negative (NEGATIVE) Urine Bilirubin Negative (NEGATIVE) Urine Urobilinogen Normal MG/DL (0.0-1.0) Urine Leukocyte Esterase 1+ (NEGATIVE) H Urine RBC 5-10 /HPF (0 - 0) H Urine WBC 2-4 /HPF (0 - 0) Urine Squamous Epithelial Cells Occasional /LPF Urine Bacteria Few /HPF (NONE) Urine Osmolality 413 mOsm/kg (429-449) L Urine Random Sodium < 20 mmol/L (20-110) L White Blood Count Pending Red Blood Count Pending Hemoglobin Pending Hematocrit Pending Mean Corpuscular Volume Pending Mean Corpuscular Hemoglobin Pending Mean Corpuscular Hemoglobin Concent Pending Red Cell Distribution Width Pending Platelet Count Pending Mean Platelet Volume Pending Neutrophils (%) (Auto) Pending Lymphocytes (%) (Auto) Pending Monocytes (%) (Auto) Pending Eosinophils (%) (Auto) Pending Basophils (%) (Auto) Pending Sodium Level Pending Potassium Level Pending Chloride Level Pending Carbon Dioxide Level Pending Blood Urea Nitrogen Pending Creatinine Pending Estimat Glomerular Filtration Rate Pending Glucose Level Pending Hemoglobin A1c Pending Lactic Acid Level Pending Calcium Level Pending Magnesium Level Pending Total Bilirubin Pending Aspartate Amino Transf (AST/SGOT) Pending Alanine Aminotransferase (ALT/SGPT) Pending Alkaline Phosphatase Pending Total Protein Pending Albumin Pending Globulin Pending Microbiology Date/Time Source Procedure Growth Status 01/22/19 02:10 Rectum Received Height (Feet): 5 Height (Inches): 6.00 Weight (Pounds): 190 Medications Current Medications Medications (Trade) Dose Ordered Sig/Sima Route PRN Reason Start Time Stop Time Status Last Admin Dose Admin Acetaminophen (Tylenol) 650 mg Q4H PRN GT Mild Pain/Temp > 100.5 01/22/19 06:15 02/21/19 06:14 Acetaminophen/ Hydrocodone Bitart ([place] 10/325) 1 tab Q4H PRN ORAL For Pain 01/22/19 06:15 01/29/19 06:14 Albumin Human 500 ml @ 0 mls/hr Q0M IV 01/22/19 10:00 01/22/19 12:00 Albuterol Sulfate (Proventil) 2.5 mg Q6HRT HHN 01/22/19 07:00 01/27/19 06:59 01/22/19 08:04 Chlorhexidine Gluconate (Paulina-Hex 2%) 1 applic DAILY@2000 TOPIC 01/22/19 20:00 02/21/19 19:59 Dextrose (Dextrose 50%) 25 ml Q30M PRN IV Hypoglycemia 01/22/19 06:30 02/21/19 06:29 Dextrose (Dextrose 50%) 50 ml Q30M PRN IV Hypoglycemia 01/22/19 06:30 02/21/19 06:29 Dextrose/Sodium Chloride 1,000 ml @ 100 mls/hr Q10H IV 01/22/19 10:00 02/21/19 09:59 01/22/19 10:12 Docusate Sodium (Colace) 100 mg DAILY PRN NG constipation 01/22/19 06:15 02/21/19 06:14 Heparin Sodium (Porcine) (Heparin 5000 units/ml) 5,000 units EVERY 12 HOURS SUBQ 01/22/19 09:00 02/21/19 08:59 01/22/19 09:05 Insulin Aspart (NovoLOG) BEFORE MEALS AND HS SUBQ 01/22/19 07:30 02/21/19 07:29 01/22/19 08:02 Meropenem 1 gm/ Sodium Chloride 55 ml @ 110 mls/hr Q12HR@0300,1500 IVPB 01/22/19 15:00 01/23/19 23:59 Midodrine (Pro-Amatine) 2.5 mg THREE TIMES A DAY ORAL 01/22/19 13:00 02/21/19 12:59 Norepinephrine Bitartrate 4 mg/ Dextrose 250 ml @ 0 mls/hr Q24H IV 01/22/19 06:15 02/21/19 06:14 01/22/19 09:44 Pantoprazole (Protonix) 40 mg EVERY 12 HOURS IVP 01/22/19 09:00 02/21/19 08:59 01/22/19 09:04 Polyethylene Glycol (Miralax) 17 gm BEDTIME ORAL 01/22/19 21:00 02/21/19 20:59 Tamsulosin HCl (Flomax) 0.4 mg BID ORAL 01/22/19 10:00 02/21/19 09:59 01/22/19 10:12 Vancomycin HCl (Vanco rx to dose) 1 ea DAILY PRN MISC Per rx protocol 01/22/19 06:15 02/21/19 06:14 Vancomycin HCl 750 mg/Sodium Chloride 275 ml @ 183.333 mls/hr Q12HR@0800,2000 IVPB 01/22/19 20:00 01/27/19 19:59 Vitamin D (Vitamin D) 5,000 intlu DAILY GT 01/22/19 09:00 02/21/19 08:59 01/22/19 09:03 Objective Narrative Gen: On Vent, Trached HEENT: NCAT, MMM, PERRL NECK: supple, No LAD, No JVD LUNGS: Coarse B/L CARDS: RRR, S1, S2, No M/R/G, ABD: Soft, NT, ND, No R/G, + BS, No HSM, No Masses, G tube : Deferred Ext: No C/C/E, Pulses 2+ B/L (DP, Rad): NEURO: A/O x 0, Not following SKIN: Warm/dry, No rashes, Sacral uclers Assessment/Plan Assessment/Plan: 63 yo male who was sent to the ED on 01/21/19 for hypotension, fever and respiratory distress. Sepsis PNA vs other CXR B/L Opacities UA (+) Leukocytosis Fever DM COPD CVA Dementia Parkinsons Cardiac issues Vent dependent with trach G tube PLAN - Conitnue Vancomycin #1 and Meropenem #1 - f/u cultures - Monitor CBC and Temps - CXR in am Thank you for this consult. [facility] will continue to follow the patient with you during this hospitalization. Ramses Rodriguez MD Jan 22, 2019 10:54
--- NOTE | 2019-01-22 11:08 | NUR ---
NURSE NOTES: Seen by Dr. Rodriguez and notified WBC level.
[2019-01-22 11:18] LABS: ALANINE AMINOTRANSFERASE 30 U/L (12-78); ALBUMIN 1.4 G/DL (3.4-5.0); ALBUMIN/GLOBULIN RATIO 0.3 (1.0-2.7); ALKALINE PHOSPHATASE 226 U/L (46-116); ANION GAP 8 mmol/L (5-15); ASPARTATE AMINO TRANSFERASE 51 U/L (15-37); BILIRUBIN,TOTAL 0.8 MG/DL (0.2-1.0); BLOOD UREA NITROGEN 55 mg/dL (7-18); CARBON DIOXIDE 21 MMOL/L (21-32); CHLORIDE 101 MMOL/L (98-107); CREATININE 0.9 MG/DL (0.55-1.30); POTASSIUM 4.8 MMOL/L (3.5-5.1); SODIUM 130 MMOL/L (136-145)
--- NOTE | 2019-01-22 11:23 | NUR ---
CASE MANAGEMENT: REVIEW 63Y/MALE BIBA FROM [facility] CC: AMS SI: SEPSIS . PNA . RESP FAILURE . TRACH/VENT DEPENDENT T 102.1 HR 130 RR 24 BP 63/43 SAT 100% MECH VENT FIO2 40 WBC 30.7 H/H 12.6/36.2 IS: LEVOPHED IV ACETAMINOPHEN RECTAL X1 NS IVF BOLUS X1 ALBUTEROL HHN X1 LEVOFLOXACIN IV X1 PATIENT ADMITTED TO ICU 01/20/2019 DCP: PATIENT IS FROM [facility]
--- NOTE | 2019-01-22 12:05 | NUR ---
NURSE NOTES: Repositioned patient and provided oral care.
--- NOTE | 2019-01-22 12:25 | NUR ---
NURSE NOTES: Seen by Dr. Tang and assessed patient.
[2019-01-22] MEDS ORDERED: Levophed 4mg/4mL Inj IV ONE (12:59)
[2019-01-22] MEDS ORDERED: D5W 275ml ONE ×2 (13:49→16:21)
--- NOTE | 2019-01-22 14:20 | NUR ---
NURSE NOTES: Repositioned patient and provided oral care.
--- NOTE | 2019-01-22 14:46 | Consultation ---
History of Present Illness General Date patient seen: Jan 22, 2019 Reason for Hospitalization: Altered Mental Status Present Illness HPI This is a unfortunate 63 year old male care dependant with multiple medical comorbidities, trach dependant on vent, g tube dependant on feeds, who presented from care facility with hypotension, leukocytosis, lactic acidosis, abnormal labs, that has been admitted to the ICU for care and management. Patient with worsening lactic acidosis and leukocytosis on pressors. Patient last admitted in 04/2018 where he was noted to have DTI and wounds. Now presents with multiple large open wounds requiring care and management. Surgery called to evaluate and assist with care. patient seen, chart reviewed, patient examined. patient non verbal at baseline and does not follow commands. Allergies: Coded Allergies: OXYTETRACYCLINE (Unverified Allergy, Unknown, 09/05/13) PENICILLINS (Unverified Allergy, Unknown, 06/11/17) Tolerated one dose of Cefepime 06/07/17 Tolerated Cefdinir 06/10/17 Uncoded Allergies: PLASTIC TAPE (Allergy, Mild, ITCHINESS, 08/08/15) MEDICAL TAPE (Allergy, Unknown, 12/10/16) Medication History Scheduled Albuterol Sulfate* (Albuterol Sulfate Hhn*), 3 ML INH Q6H, (Reported) Atorvastatin Calcium* (Atorvastatin Calcium*), 10 MG GT BEDTIME, (Reported) Cholecalciferol (Vitamin D3)* (Vitamin D*), 5,000 UNIT GT DAILY, (Reported) Docusate Sodium* (Docusate Sodium*), 100 MG GT DAILY, (Reported) Heparin Sod (Porcine) (Heparin Sodium*), 5,000 UNITS SUBQ EVERY 12 HOURS, ( Reported) Polyethylene Glycol 3350* (Miralax*), 17 GM GT DAILY, (Reported) Scheduled PRN Acetaminophen (Acetaminophen), 650 MG ORAL Q4HR PRN for Prn Headache/Temp > 101, (Reported) Hydrocodone/Acetaminophen (Hydrocodon-Acetaminophn 10-325), 1 TAB ORAL EVERY 12 HOURS PRN for For Pain, (Reported) Ondansetron (Zofran), 4 MG GT Q6H PRN for Nausea & Vomiting, (Reported) Miscellaneous Medications Insulin Lispro (Humalog), 0 SUBQ, (Reported) Vit D3/Folic Acid/B2/B6/B12 (Folgard Tablet), 1 EACH GT, (Reported) Discontinued Medications Acetaminophen (Tylenol), 325 MG GT Q4HR PRN for fever, (Reported) Discontinued Reason: Pt stopped taking med Amantadine Hcl* (Amantadine*), 100 MG GT DAILY, (Reported) Discontinued Reason: MD discontinued med Ascorbate Calcium (Vitamin C), 500 MG GT, (Reported) Discontinued Reason: MD discontinued med Ascorbic Acid* (Vitamin C*), 500 MG ORAL DAILY, (Reported) Discontinued Reason: MD discontinued med Aspirin* (Aspir 81*), 81 MG GT DAILY, (Reported) Discontinued Reason: MD discontinued med Bisacodyl* (Dulcolax*), 10 MG RECTAL ONCE, (Reported) Discontinued Reason: MD discontinued med Chlorhexidine Gluconate (Chlorhexidine Gluconate), 15 ML GT TWICE A DAY, ( Reported) Discontinued Reason: MD discontinued med Clonazepam* (Klonopin*), 0.5 MG GT DAILY, (Reported) Discontinued Reason: MD discontinued med Folic Acid* (Folic Acid*), 1 MG GT DAILY, (Reported) Discontinued Reason: MD discontinued med Hydrocodone Bit/Acetaminophen 10-325* ([place] 10-325*), 1 TAB GT Q12HR PRN for For Pain, (Reported) Discontinued Reason: Pt stopped taking med Lorazepam* (Lorazepam*), 0.5 MG GT Q6HR PRN for For Anxiety, (Reported) Discontinued Reason: MD discontinued med Midodrine (Midodrine HCl), 10 MG GT Q8HR Discontinued Reason: MD discontinued med Multivitamin Liquid* (Multi-Delyn*), 5 ML GT DAILY, (Reported) Discontinued Reason: MD discontinued med Omeprazole (Omeprazole), 20 MG GT DAILY, (Reported) Discontinued Reason: MD discontinued med Potassium Chloride (Potassium Chloride), 40 MEQ GT DAILY, (Reported) Discontinued Reason: MD discontinued med Spironolact/Hydrochlorothiazid (Aldactazide 25-25 Tablet), 1 TAB GT DAILY, ( Reported) Discontinued Reason: MD discontinued med Warfarin Sod* (Coumadin*), 5 MG GT DAILY, (Reported) Discontinued Reason: MD discontinued med Zinc Sulfate (Zinc Sulfate*), 220 MG GT DAILY, (Reported) Discontinued Reason: MD discontinued med Patient History Limited by: medical condition History Provided By: Medical Record, PMD Healthcare decision maker Chantel Mike - Resuscitation status Advanced Directive on File Past Medical/Surgical History Past Medical/Surgical History: (1) Upper GI bleed (2) Coffee ground emesis (3) Tracheostomy care (4) Dysphagia (5) Hyponatremia (6) Respiratory failure, acute and chronic (7) HCAP (healthcare-associated pneumonia) (8) Acute metabolic encephalopathy (9) HARDEEP (acute kidney injury) (10) Vegetative state (11) Pneumonia (12) HTN (hypertension) (13) Ventilator dependence (14) Cerebral vascular disease (15) Pleural effusion (16) History of CVA (cerebrovascular accident) (17) Sepsis (18) Chronic respiratory failure (19) Cholelithiasis (20) Hemoptysis (21) Hematuria (22) Diarrhea (23) Bowel obstruction (24) Fungemia (25) Obstructive uropathy (26) Gram-negative bacteremia (27) Collapse of right lung (28) Malfunction of gastrostomy tube (29) Hypokalemia (30) Acute and chronic respiratory failure (31) Chronic respiratory failure (32) Feeding by G-tube (33) UTI (urinary tract infection) (34) Septic shock (35) Severe sepsis (36) Gastrointestinal hemorrhage Review of Systems Review of Symptoms cannot obtain given baseline medical condition and status Physical Exam Physical Exam General appearance: eyes open, non responsive and does not follow commands Head: Normocephalic, without obvious abnormality, atraumatic Eyes: conjunctivae/corneas clear. PERRL, EOM's intact. Fundi benign Throat: Lips, mucosa, and tongue normal. \ Neck: supple, symmetrical, trachea midline, no adenopathy, trach on vent Lungs: decreased breathsounds Heart: tachy hypo Abdomen: soft, feeding tube, feeds on hold. Bowel sounds decreased. No masses, no organomegaly Extremities: extremities with multiple wounds Pulses: decreased symmetric Skin: Skin with multiple wounds asbelow Neurologic: unresponsive Last 24 Hour Vital Signs Date Time Temp Pulse Resp B/P (MAP) Pulse Ox O2 Delivery O2 Flow Rate FiO2 01/22/19 13:35 114 27 100 Mechanical Ventilator 30 112 16 30 01/22/19 13:30 96/62 01/22/19 13:12 121/56 01/22/19 12:30 98/60 01/22/19 12:00 Trach Collar 01/22/19 12:00 94/67 01/22/19 12:00 106 01/22/19 11:30 98/69 01/22/19 11:03 106 23 30 01/22/19 11:00 107 24 98/70 (79) 01/22/19 11:00 103/71 01/22/19 11:00 30 01/22/19 10:45 106 24 94/67 (76) 01/22/19 10:30 105 23 100/66 (77) 96 01/22/19 10:30 94/67 01/22/19 10:15 103 23 96/64 (75) 100 01/22/19 10:00 103 23 94/65 (75) 100 01/22/19 10:00 96/64 01/22/19 09:45 104 24 94/65 (75) 100 01/22/19 09:44 97/69 01/22/19 09:43 94/65 01/22/19 09:30 105 25 97/69 (78) 100 01/22/19 09:30 94/65 01/22/19 09:15 106 24 97/69 (78) 100 01/22/19 09:14 106 24 40 01/22/19 09:00 106 21 97/69 (78) 100 01/22/19 09:00 95/66 01/22/19 08:45 104 21 94/60 (71) 100 01/22/19 08:30 106 22 94/60 (71) 100 01/22/19 08:30 97/69 01/22/19 08:15 104 21 94/60 (71) 100 01/22/19 08:04 106 18 100 Mechanical Ventilator 40 106 16 40 01/22/19 08:00 106 01/22/19 08:00 98.2 106 19 94/60 (71) 100 01/22/19 08:00 90/56 01/22/19 08:00 Trach Collar 01/22/19 07:45 104 19 94/60 (71) 100 01/22/19 07:30 104 18 94/60 (71) 100 01/22/19 07:30 94/60 01/22/19 07:15 103 18 89/59 (69) 100 01/22/19 07:00 106 19 89/59 (69) 100 01/22/19 07:00 87/60 01/22/19 06:38 40 01/22/19 06:02 Mechanical Ventilator 01/22/19 05:20 90 22 40 01/22/19 04:45 99.8 105 16 112/62 100 Mechanical Ventilator 40 01/22/19 04:45 99.8 101 16 112/62 100 Mechanical Ventilator 45.0 40 01/22/19 04:40 112/01/22/19 04:35 99/56 01/22/19 04:30 107/67 01/22/19 04:25 88/58 01/22/19 04:20 88/01/22/19 04:15 8701/22/19 04:10 85/01/22/19 04:05 01/22/19 04:00 85/01/22/19 03:55 83/51 01/22/19 03:50 99.8 101 24 82/51 100 Mechanical Ventilator 45.0 40 01/22/19 03:50 82/51 01/22/19 03:45 76/43 01/22/19 02:59 99.8 01/22/19 02:50 99.9 101 24 67/45 100 Mechanical Ventilator 45.0 40 01/22/19 02:42 114 26 40 01/22/19 02:35 116 26 100 Mechanical Ventilator 45.0 40 117 26 100 01/22/19 02:05 80 16 100 Mechanical Ventilator 45.0 40 01/22/19 01:57 78 16 40 01/22/19 01:50 109 24 Mechanical Ventilator 01/22/19 01:50 102.1 109 24 63/43 100 Mechanical Ventilator 01/22/19 01:45 130 24 72/51 (58) 100 Mechanical Ventilator Intake and Output 01/21/19 01/22/19 19:00 07:00 Intake Total 0 ml Output Total 200 ml Balance -200 ml Intake Oral 0 ml Output Urine Total 200 ml Laboratory Tests Test 01/22/19 02:10 01/22/19 02:26 01/22/19 04:11 01/22/19 04:45 White Blood Count 25.2 K/UL (4.8-10.8) *H Red Blood Count 4.22 M/UL (4.70-6.10) L Hemoglobin 12.6 G/DL (14.2-18.0) L Hematocrit 36.2 % (42.0-52.0) L Mean Corpuscular Volume 86 FL (80-99) Mean Corpuscular Hemoglobin 29.9 PG (27.0-31.0) Mean Corpuscular Hemoglobin Concent 34.8 G/DL (32.0-36.0) Red Cell Distribution Width 14.1 % (11.6-14.8) Platelet Count 236 K/UL (150-450) Mean Platelet Volume 9.6 FL (6.5-10.1) Neutrophils (%) (Auto) % (45.0-75.0) Lymphocytes (%) (Auto) % (20.0-45.0) Monocytes (%) (Auto) % (1.0-10.0) Eosinophils (%) (Auto) % (0.0-3.0) Basophils (%) (Auto) % (0.0-2.0) Differential Total Cells Counted 100 Neutrophils % (Manual) 63 % (45-75) Lymphocytes % (Manual) 9 % (20-45) L Monocytes % (Manual) 14 % (1-10) H Eosinophils % (Manual) 2 % (0-3) Basophils % (Manual) 1 % (0-2) Band Neutrophils 11 % (0-8) H Platelet Estimate Adequate Platelet Morphology Normal Red Blood Cell Morphology Normal Prothrombin Time 13.0 SEC (9.30-11.50) H Prothromb Time International Ratio 1.2 (0.9-1.1) H Activated Partial Thromboplast Time 33 SEC (23-33) Sodium Level 127 MMOL/L (136-145) L Potassium Level 5.2 MMOL/L (3.5-5.1) H Chloride Level 93 MMOL/L (98-107) L Carbon Dioxide Level 26 MMOL/L (21-32) Anion Gap 8 mmol/L (5-15) Blood Urea Nitrogen 79 mg/dL (7-18) H Creatinine 1.4 MG/DL (0.55-1.30) H Estimat Glomerular Filtration Rate 51.5 mL/min (>60) Glucose Level 160 MG/DL (74-106) H Osmolality 305 mOsm/kg (297-317) Lactic Acid Level 3.30 mmol/L (0.4-2.0) H 2.70 mmol/L (0.66-2.22) H Uric Acid 6.5 MG/DL (2.6-7.2) Calcium Level 9.2 MG/DL (8.5-10.1) Total Bilirubin 0.4 MG/DL (0.2-1.0) Aspartate Amino Transf (AST/SGOT) 34 U/L (15-37) Alanine Aminotransferase (ALT/SGPT) 31 U/L (12-78) Alkaline Phosphatase 252 U/L (46-116) H Total Creatine Kinase 91 U/L (26-308) Troponin I 0.000 ng/mL (0.000-0.056) Total Protein 6.9 G/DL (6.4-8.2) Albumin 1.6 G/DL (3.4-5.0) L Globulin 5.3 g/dL Albumin/Globulin Ratio 0.3 (1.0-2.7) L Triglycerides Level 107 MG/DL (30-150) Cholesterol Level < 50 MG/DL (< 200) LDL Cholesterol 14 mg/dL (<100) HDL Cholesterol 8 MG/DL (40-60) L Cholesterol/HDL Ratio 6.3 (3.3-4.4) H Thyroid Stimulating Hormone (TSH) 1.200 uiU/mL (0.358-3.740) Arterial Blood pH 7.453 (7.350-7.450) Arterial Blood Partial Pressure CO2 31.4 mmHg (35.0-45.0) L Arterial Blood Partial Pressure O2 92.2 mmHg (75.0-100.0) Arterial Blood HCO3 21.5 mmol/L (22.0-26.0) L Arterial Blood Oxygen Saturation 97.1 % (95-100) Arterial Blood Base Excess -1.6 (-2-2) Melvin Test Positive Urine Color Yellow Urine Appearance Clear Urine pH 5 (4.5-8.0) Urine Specific [place] 1.015 (1.005-1.035) Urine Protein 2+ (NEGATIVE) H Urine Glucose (UA) Negative (NEGATIVE) Urine Ketones Negative (NEGATIVE) Urine Blood 4+ (NEGATIVE) H Urine Nitrite Negative (NEGATIVE) Urine Bilirubin Negative (NEGATIVE) Urine Urobilinogen Normal MG/DL (0.0-1.0) Urine Leukocyte Esterase 2+ (NEGATIVE) H Urine RBC 5-10 /HPF (0 - 0) H Urine WBC 15-20 /HPF (0 - 0) H Urine Squamous Epithelial Cells Occasional /LPF Urine Bacteria Moderate /HPF (NONE) H Test 01/22/19 07:25 01/22/19 10:00 01/22/19 10:37 Arterial Blood pH 7.369 (7.350-7.450) Arterial Blood Partial Pressure CO2 34.0 mmHg (35.0-45.0) L Arterial Blood Partial Pressure O2 96.3 mmHg (75.0-100.0) Arterial Blood HCO3 19.2 mmol/L (22.0-26.0) L Arterial Blood Oxygen Saturation 97.1 % (95-100) Arterial Blood Base Excess -5.3 (-2-2) L Melvin Test Positive Urine Color Yellow Urine Appearance Clear Urine pH 5 (4.5-8.0) Urine Specific [place] 1.010 (1.005-1.035) Urine Protein 2+ (NEGATIVE) H Urine Glucose (UA) Negative (NEGATIVE) Urine Ketones Negative (NEGATIVE) Urine Blood 2+ (NEGATIVE) H Urine Nitrite Negative (NEGATIVE) Urine Bilirubin Negative (NEGATIVE) Urine Urobilinogen Normal MG/DL (0.0-1.0) Urine Leukocyte Esterase 1+ (NEGATIVE) H Urine RBC 5-10 /HPF (0 - 0) H Urine WBC 2-4 /HPF (0 - 0) Urine Squamous Epithelial Cells Occasional /LPF Urine Bacteria Few /HPF (NONE) Urine Osmolality 413 mOsm/kg (429-449) L Urine Random Sodium < 20 mmol/L (20-110) L White Blood Count 30.7 K/UL (4.8-10.8) *H Red Blood Count 4.49 M/UL (4.70-6.10) L Hemoglobin 13.0 G/DL (14.2-18.0) L Hematocrit 40.2 % (42.0-52.0) L Mean Corpuscular Volume 89 FL (80-99) Mean Corpuscular Hemoglobin 29.0 PG (27.0-31.0) Mean Corpuscular Hemoglobin Concent 32.3 G/DL (32.0-36.0) Red Cell Distribution Width 14.7 % (11.6-14.8) Platelet Count 232 K/UL (150-450) Mean Platelet Volume 8.4 FL (6.5-10.1) Neutrophils (%) (Auto) % (45.0-75.0) Lymphocytes (%) (Auto) % (20.0-45.0) Monocytes (%) (Auto) % (1.0-10.0) Eosinophils (%) (Auto) % (0.0-3.0) Basophils (%) (Auto) % (0.0-2.0) Differential Total Cells Counted 100 Neutrophils % (Manual) 66 % (45-75) Lymphocytes % (Manual) 10 % (20-45) L Monocytes % (Manual) 5 % (1-10) Eosinophils % (Manual) 1 % (0-3) Basophils % (Manual) 0 % (0-2) Band Neutrophils 18 % (0-8) H Platelet Estimate Adequate Platelet Morphology Normal Anisocytosis 1+ Sodium Level 130 MMOL/L (136-145) L Potassium Level 4.8 MMOL/L (3.5-5.1) Chloride Level 101 MMOL/L (98-107) Carbon Dioxide Level 21 MMOL/L (21-32) Anion Gap 8 mmol/L (5-15) Blood Urea Nitrogen 55 mg/dL (7-18) H Creatinine 0.9 MG/DL (0.55-1.30) Estimat Glomerular Filtration Rate > 60 mL/min (>60) Glucose Level 234 MG/DL (74-106) H Hemoglobin A1c 6.4 % (4.3-6.0) H Lactic Acid Level 3.80 mmol/L (0.4-2.0) H Calcium Level 8.0 MG/DL (8.5-10.1) L Magnesium Level 1.9 MG/DL (1.8-2.4) Total Bilirubin 0.8 MG/DL (0.2-1.0) Aspartate Amino Transf (AST/SGOT) 51 U/L (15-37) H Alanine Aminotransferase (ALT/SGPT) 30 U/L (12-78) Alkaline Phosphatase 226 U/L (46-116) H Total Protein 6.3 G/DL (6.4-8.2) L Albumin 1.4 G/DL (3.4-5.0) L Globulin 4.9 g/dL Albumin/Globulin Ratio 0.3 (1.0-2.7) L Microbiology Date/Time Source Procedure Growth Status 01/22/19 02:10 Rectum Received Height (Feet): 5 Height (Inches): 6.00 Weight (Pounds): 190 Medications Current Medications Medications (Trade) Dose Ordered Sig/Sima Route PRN Reason Start Time Stop Time Status Last Admin Dose Admin Acetaminophen (Tylenol) 650 mg Q4H PRN GT Mild Pain/Temp > 100.5 01/22/19 06:15 02/21/19 06:14 Acetaminophen/ Hydrocodone Bitart ([place] 10/325) 1 tab Q4H PRN ORAL For Pain 01/22/19 06:15 01/29/19 06:14 Albuterol Sulfate (Proventil) 2.5 mg Q6HRT HHN 01/22/19 07:00 01/27/19 06:59 01/22/19 13:56 Chlorhexidine Gluconate (Paulina-Hex 2%) 1 applic DAILY@2000 TOPIC 01/22/19 20:00 02/21/19 19:59 Dextrose (Dextrose 50%) 25 ml Q30M PRN IV Hypoglycemia 01/22/19 06:30 02/21/19 06:29 Dextrose (Dextrose 50%) 50 ml Q30M PRN IV Hypoglycemia 01/22/19 06:30 02/21/19 06:29 Dextrose/Sodium Chloride 1,000 ml @ 100 mls/hr Q10H IV 01/22/19 10:00 02/21/19 09:59 01/22/19 10:12 Docusate Sodium (Colace) 100 mg DAILY PRN NG constipation 01/22/19 06:15 02/21/19 06:14 Heparin Sodium (Porcine) (Heparin 5000 units/ml) 5,000 units EVERY 12 HOURS SUBQ 01/22/19 09:00 02/21/19 08:59 01/22/19 09:05 Insulin Aspart (NovoLOG) BEFORE MEALS AND HS SUBQ 01/22/19 07:30 02/21/19 07:29 01/22/19 11:30 Meropenem 1 gm/ Sodium Chloride 55 ml @ 110 mls/hr Q12HR@0300,1500 IVPB 01/22/19 15:00 01/23/19 23:59 Midodrine (Pro-Amatine) 2.5 mg THREE TIMES A DAY ORAL 01/22/19 13:00 02/21/19 12:59 01/22/19 12:19 Norepinephrine Bitartrate 4 mg/ Dextrose 250 ml @ 0 mls/hr Q24H IV 01/22/19 06:15 02/21/19 06:14 01/22/19 13:12 Pantoprazole (Protonix) 40 mg EVERY 12 HOURS IVP 01/22/19 09:00 02/21/19 08:59 01/22/19 09:04 Polyethylene Glycol (Miralax) 17 gm BEDTIME ORAL 01/22/19 21:00 02/21/19 20:59 Tamsulosin HCl (Flomax) 0.4 mg BID ORAL 01/22/19 10:00 02/21/19 09:59 01/22/19 10:12 Vancomycin HCl (Vanco rx to dose) 1 ea DAILY PRN MISC Per rx protocol 01/22/19 06:15 02/21/19 06:14 Vancomycin HCl 750 mg/Sodium Chloride 275 ml @ 183.333 mls/hr Q12HR@0800,2000 IVPB 01/22/19 20:00 01/27/19 19:59 Vitamin D (Vitamin D) 5,000 intlu DAILY GT 01/22/19 09:00 02/21/19 08:59 01/22/19 09:03 Assessment/Plan Problem List: (1) Decubitus skin ulcer Assessment & Plan: Patient presented with multiple decubitus skin ulcers requiring care and management last was admitted in 04/2018 and DTI but no open sacral wounds 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 no signs of active infection, granulation tissue, no necrotic tissue, no drainage. periwound intact with some maceration right great toe deep ulcer with necrotic center and exposed, no drainage, no signs of active infection DTI to medical aspect for 1st metatarsal head multiple scattered <1-2cm areas of partial thickness skin abrasions noted on legs no signs of active infection from wounds which are seemingly chronic. Treatment Plan Wash sacral and buttock wounds daily with NS, apply therahoney to wound bed and gauze, apply foam dressing. change daily and prn saturation Monitor for incontinence and change as per unit protocol Betadine great toe ulceration and apply foam dressing change q3 days apply skin protectant and foam dressings to skin abrasions off load heels with pillows turn every two hours air soft mattress to be ordered nutritional optimization. nutrition consult placed ICD Codes: L89.90 - Pressure ulcer of unspecified site, unspecified stage SNOMED: 981071219 (2) Septic shock Assessment & Plan: Leukocytosis worsening Lactic acidosis worsening on Pressors levophed 24 on IV fluids Hold tube feeds for now Rx as written ICU care and management will follow with recs thank you ICD Codes: A41.9 - Sepsis, unspecified organism; R65.21 - Severe sepsis with septic shock SNOMED: 79679351 (3) Feeding by G-tube Assessment & Plan: hold tube feeds for now will consider resuming once stabilized prognosis guarded ICD Codes: Z93.1 - Feeding by G-tube SNOMED: 113980644 (4) Vegetative state ICD Codes: R40.3 - Persistent vegetative state SNOMED: 73765155 Jimmy Tang Jan 22, 2019 14:45
[2019-01-22] MEDS: Meropenem 1 GM in NS 55 ML IVPB SCH (14:47)
--- NOTE | 2019-01-22 14:55 | NUR ---
NURSE NOTES: Condom cath was fell off. Put on new condom cath.
[2019-01-22] MEDS ORDERED: D5NS 1000ml IV ONE (16:21)
[2019-01-22] MEDS ORDERED: NS 275ml ONE (16:21)
[2019-01-22] MEDS ORDERED: Tubing IV Secondary IV ONE (16:21)
--- NOTE | 2019-01-22 16:45 | NUR ---
NURSE NOTES: Apply P200 mattress and provided bed bath. Liquid moderate BM noted, brown color with foul odor. Collected stool for c.diff. Will continue plan of care.
--- NOTE | 2019-01-22 18:30 | NUR ---
NURSE NOTES: Condom catheter was pulled out. Replace condom cath.
--- NOTE | 2019-01-22 19:18 | NUR ---
HAND-OFF: Report given to GEOVANNA Lopez. Endorsed plan of care.
--- NOTE | 2019-01-22 19:19 | NUR ---
NURSE NOTES: Endorsement received from GEOVANNA Arnold. Patient obtunded. Opens eyes to pain, does not track. Withdraws to pain. Portex 7.0. AC 16 500 PEEP 5 30%. GT clamped, patent and intact. Right IJ TLC. On D5 NS 100ml/hr, levophed 20mcg/min. Condom catheter on place. Bilateral upper and lower extremities contracted. Wound dressings dry and intact. Head of bed elevated. Bed locked and in low position. Bed alarm on. Call light within reach. On P200 mattress.
--- NOTE | 2019-01-22 19:40 | NUR ---
NURSE NOTES: Patient seen and examined by Dr. Arevalo. With new order for A1C tomorrow morning.
[2019-01-22] MEDS: Dyna-Hex 2% Top Sol 2oz TOPIC SCH (19:57)
[2019-01-22] MEDS: Vancomycin 750mg/NS 275ml IVPB SCH ×2 (19:57)
[2019-01-22] MEDS: Miralax 17gm pkt ORAL SCH (20:56)
[2019-01-22] MEDS: Norepinephrine Bitartrate 8 MG in D5W 500ml 492 ML IV SCH (20:58)
--- NOTE | 2019-01-22 22:00 | NUR ---
NURSE NOTES: Still sinus tach on the monitor. Afebrile.
[2019-01-23] VITALS (58 sets, daily range): BP systolic 86–124; BP diastolic 51–82
--- NOTE | 2019-01-23 | NUR ---
NURSE NOTES: Patient appears comfortable, no sign of pain or discomfort. Levophed currently at 14 mcg/min. called and updated of current status.
[2019-01-23] MEDS: Albuterol ud Inhalation HHN SCH ×4 (01:04→19:25)
--- NOTE | 2019-01-23 02:00 | NUR ---
NURSE NOTES: Patient with eyes closed. Afebrile. Repostioned.
[2019-01-23] MEDS: Meropenem 1 GM in NS 55 ML IVPB SCH ×2 (03:21→15:30)
--- NOTE | 2019-01-23 04:00 | NUR ---
NURSE NOTES: Patient continues to have diarrhea, brown in color. Rectal tube inserted.
--- NOTE | 2019-01-23 05:00 | NUR ---
NURSE NOTES: Bed bath, oral care, change of linens done. Change of dressings at sacral site done. Condom catheter replaced with urine pouch. Noted with coffee ground output from the GT. Aspirated [address] Rudd, awaiting for return call.
--- NOTE | 2019-01-23 05:15 | History and Physical Report ---
DATE OF ADMISSION: 01/22/2019 REASON FOR ADMISSION: This is one of several admissions to [facility] of this 63-year-old patient because of septic shock. HISTORY OF PRESENT ILLNESS: The patient is a resident of an extended care facility subacute unit where he has been in stable condition for the last several months. He is known to have several chronic medical syndrome that will be detailed in the following paragraphs, but he has been stable on his current medication. On the day of admission, he developed fever, tachycardia, and hypotension. He did not respond to conservative therapy, respiratory therapy and pressure support and oral medications . He was transferred to [facility] ER where he was found to be in septic shock. The patient was started on p.o. antibiotic and was admitted. PAST MEDICAL HISTORY: More than 10 years ago, the patient had intracerebral hemorrhage which put the patient in severe encephalopathy and Whit coma scale 6 associated with respiratory failure. He was placed on mechanical ventilation. underwent tracheostomy and gastrostomy and referred to subacute clinic medically in order to deformity. ALLERGIES: No known drug allergies. MEDICATIONS: The patient is on metformin 500 mg b.i.d., benazepril 5 mg daily, vitamin D 5000 daily, atorvastatin 10 mg daily, metoprolol 50 mg daily, aspirin 81 mg daily, multiple medications p.r.n. for motility disorder. He had decubiti in the toe evaluated by wound team as well as . FAMILY HISTORY: Noncontributory. SOCIAL HISTORY: He is . He was born in [place]. . The patient did not smoke. He did not use illicit drugs. REVIEW OF SYSTEMS: The patient is unable to give any information regarding his state of health. PHYSICAL EXAMINATION: VITAL SIGNS: His blood pressure now is 121/90, pulse is 125, respirations 29, and temperature is unavailable. HEENT: Eyes were normal. Pupils were round, equal, and reactive to light. Sclerae were white. Conjunctivae were pink. Extraocular movements could not be assessed. Temporal arteries were palpable bilaterally. There was bilateral temporal wasting. Visual donaldson to confrontation and neglect sign could not be assessed. ENT, mucous membranes were not dehydrated. Auditory canals were clear and tympanic membranes could not be visualized. Nasal cavity was not congested. Nasal septum was intact. Soft palate and uvula could not be visualized. Tongue was moist, midline, and normally papillated. NECK: Supple. There was no goiter. No mass. No lymphadenopathy. There was no JVD. No bruits. Carotid upstroke was 1+. Tracheostomy site is clean. LUNGS: There were bilateral rhonchi at both bases. The upper lobes were clear. HEART: PMI was in the fifth left intercostal space in midclavicular line and difficult to locate. There was sinus tachycardia on monitor. No S3, S4, or pericardial rub. ABDOMEN: Soft and nontender without organomegaly. There were no masses palpable. Normal bowel sounds without bruits. There was no guarding. No rebound tenderness. No ascites. No hernia. No CVA tenderness. Liver span was 8 cm, mostly nontender. EXTREMITIES: No cyanosis, no clubbing, and no edema. Extremities were warm. There was flexion contraction deformity of hip, knee, elbows, and wrists. NEUROLOGICAL: Reflexes in biceps, triceps, and brachioradialis were difficult to obtain. Patellar retinaculum were present. Plantars were in extension bilaterally. Cranial nerves from II through XII were symmetric and equal. Cerebellar function, there was no tremor. No nystagmus. No extrapyramidal rigidity. Sensory exam to pinprick, cotton touch, and position and motor strength could not be assessed because of the patient's coma. LABORATORY AND DIAGNOSTIC DATA: His hemoglobin 13.0, hematocrit 40.2 with MCV of 89, WBC of 30.7, and platelets of 272,000. His WBC in ER was 25.2. His bands were 18% neutrophils. His BUN and creatinine is 55 and 0.9 respectively. His sodium is 130, potassium 4.8, chloride 101, and CO2 is 21. His lactic acid was 6.5 on admission, repeat was 2.7 on admission, 3.8 at 10 a.m. and 3.9 at 4 p.m. SGOT was 51 and SGPT was 30. His glucose was 234. His INR is 1.2 and PTT was 33. His urinalysis show RBCs was 5 to 10, WBC was 24. He has 2+ blood and 2+ protein. Urine sodium was less than 20 and urine osmolality was 413. left pleural effusion, left lower lobe infiltrate, and possible elevation of the left hemidiaphragm. IMPRESSION: The patient is in septic shock. He is on 20 mcg/min of Levophed. Pulmonary consult, infectious disease consult, and nephrology consult were called to assist in the management of this case. The patient is now on meropenem and vancomycin. Repeat laboratory tests will be done in the a.m. Boris Arevalo M.D. DR: HEATHER JOB#: [id number] CC:
[2019-01-23] MEDS: D5NS 1,000 ML IV SCH ×2 (05:36→16:28)
[2019-01-23] MEDS: NovoLOG Insulin Flexpen SUBQ SCH ×4 (05:38→20:57)
[2019-01-23 06:32] LABS: HEMATOCRIT 35.3 % (42.0-52.0); HEMOGLOBIN 11.7 G/DL (14.2-18.0); MEAN CORPUSCULAR VOLUME 89 FL (80-99); PLATELET COUNT 224 K/UL (150-450); RED BLOOD COUNT 3.99 M/UL (4.70-6.10); RED CELL DISTRIBUTION WIDTH 14.2 % (11.6-14.8)
--- NOTE | 2019-01-23 06:51 | NUR ---
NURSE NOTES: SBP 86 mmHg. Levophed increased back to 4 mcg/min. Received new order from Dr. Rudd to connect Gtube to low intermittent suction, D/C heparin and inform Dr. Rosas. Noted and carried out.
[2019-01-23 07:01] LABS: WHITE BLOOD COUNT 25.3 K/UL (4.8-10.8)
--- NOTE | 2019-01-23 07:16 | NUR ---
HAND-OFF: WBC 25.3, MD not informed due to result in expected trend. Report given to GEOVANNA Arnold.
--- NOTE | 2019-01-23 07:17 | NUR ---
NURSE NOTES: Received report from GEOVANNA Lopez. Patient is obtunded. Portex 7 with vent setting AC 16, VT 500, Peep 5 and FiO2 30%. Rectal tube intact and draining brown liquid stool. Gtube intact and connected to suction with low intermittent, noted with coffee ground color drainage 300ml in canister. Right IJ TLC intact, clean and running with levophed 4mcg/min and D5NS 100ml/hr. No distress/SOB noted noted. Kept dry, clean, comfortable and HOB>30. Will continue plan of care.
[2019-01-23 07:23] LABS: AMMONIA 33 umol/L (11-32)
[2019-01-23 07:28] LABS: CREATINE KINASE 91 U/L (26-308); GAMMA GLUTAMYL TRANSPEPTIDASE 58 U/L (5-85)
--- NOTE | 2019-01-23 07:33 | NUR ---
RESPIRATORY NOTE: received pt on current vent settings, no resp distres but slightly tachypneic. elevated HR and spo2 100%. pt is trached with portex 7; secured via trach tie/guard. slight redness around stoma. no skin tears visible. alarms are set appropriately with ambu bag at bedside. will cont to monitor.
--- NOTE | 2019-01-23 07:46 | Pulmonolgy Critical Care Note ---
Critical Care - Asmt/Plan Problems: (1) Septic shock (2) HCAP (healthcare-associated pneumonia) (3) Chronic respiratory failure (4) Ventilator dependence (5) Vegetative state (6) HARDEEP (acute kidney injury) (7) History of CVA (cerebrovascular accident) (8) Feeding by G-tube (9) HTN (hypertension) (10) Cerebral vascular disease Respiratory: monitor respiratory rate, adjust FIO2, CXR Cardiac: continue to monitor HR/BP Renal: F/U I&O, keep IV fluid Infectious Disease: check cultures, continue antibiotics Gastrointestinal: hold feedings Endocrine: monitor blood sugar Hematologic: monitor H/H, transfuse if hgb<8.5 Neurologic: keep patient comfortable Prophylaxis: Protonix, Heparin Notes Reviewed: emergency services director, cardio, renal Discussed with: consultants, pillowcase sewerconsulting manager - Objective Last 24 Hour Vital Signs Date Time Temp Pulse Resp B/P (MAP) Pulse Ox O2 Delivery O2 Flow Rate FiO2 01/23/19 07:00 132 25 89/68 (75) 99 01/23/19 07:00 89/68 01/23/19 06:45 133 25 86/63 (71) 99 01/23/19 06:30 134 24 86/62 (70) 99 01/23/19 06:15 133 24 93/64 (74) 98 01/23/19 06:00 89/64 01/23/19 06:00 132 25 89/64 (72) 98 01/23/19 05:45 133 24 94/70 (78) 98 01/23/19 05:30 133 24 90/60 (70) 98 01/23/19 05:15 133 24 89/59 (69) 98 01/23/19 05:11 133 27 30 01/23/19 05:00 133 24 93/66 (75) 100 01/23/19 05:00 93/66 01/23/19 04:45 98.1 134 24 102/64 (77) 99 01/23/19 04:30 139 25 86/70 (75) 97 01/23/19 04:15 137 27 121/68 (85) 96 01/23/19 04:00 Mechanical Ventilator 01/23/19 04:00 30 01/23/19 04:00 136 26 109/59 (76) 100 01/23/19 04:00 109/59 01/23/19 04:00 132 01/23/19 03:45 137 25 121/63 (82) 100 01/23/19 03:30 135 25 124/79 (94) 100 01/23/19 03:15 132 27 120/64 (82) 100 01/23/19 03:01 132 28 30 01/23/19 03:00 132 26 102/80 (87) 100 01/23/19 03:00 102/80 01/23/19 02:45 133 26 102/72 (82) 100 01/23/19 02:30 131 26 105/74 (84) 100 01/23/19 02:15 131 25 103/68 (80) 100 01/23/19 02:00 105/63 01/23/19 02:00 132 27 105/63 (77) 100 01/23/19 01:45 131 27 97/66 (76) 100 01/23/19 01:30 129 27 110/62 (78) 100 01/23/19 01:15 130 25 112/61 (78) 100 01/23/19 01:14 130 26 101/71 (81) 100 01/23/19 01:04 129 26 100 Mechanical Ventilator 30 122 30 30 01/23/19 01:00 130 25 101/68 (79) 100 01/23/19 01:00 101/68 01/23/19 00:45 128 25 99/65 (76) 100 01/23/19 00:30 129 27 103/51 (68) 100 01/23/19 00:15 127 24 108/65 (79) 100 01/23/19 00:00 Trach Collar 01/23/19 00:00 126 01/23/19 00:00 30 01/23/19 00:00 103/61 01/23/19 00:00 98.2 129 26 103/61 (75) 100 01/22/19 23:45 128 25 105/63 (77) 100 01/22/19 23:30 127 25 101/67 (78) 100 01/22/19 23:29 128 28 30 01/22/19 23:15 127 25 100/66 (77) 100 01/22/19 23:00 105/65 01/22/19 23:00 126 25 105/65 (78) 100 01/22/19 22:45 126 25 110/55 (73) 100 01/22/19 22:30 126 25 105/66 (79) 100 01/22/19 22:15 126 25 112/67 (82) 100 01/22/19 22:00 96/64 01/22/19 22:00 127 25 96/64 (75) 100 01/22/19 21:45 126 24 97/55 (69) 100 01/22/19 21:30 126 26 98/59 (72) 100 01/22/19 21:15 126 24 99/61 (74) 100 01/22/19 21:11 126 26 30 01/22/19 21:00 125 26 98/66 (77) 100 01/22/19 21:00 98/66 01/22/19 20:58 110/72 01/22/19 20:45 122 22 110/72 (85) 100 01/22/19 20:30 124 27 104/65 (78) 100 01/22/19 20:15 124 28 105/70 (82) 100 01/22/19 20:00 124 28 109/69 (82) 100 01/22/19 20:00 Trach Collar 01/22/19 20:00 120 01/22/19 20:00 109/69 01/22/19 20:00 30 01/22/19 19:45 121 27 101/69 (80) 100 01/22/19 19:30 120 28 103/68 (80) 100 01/22/19 19:15 119 28 108/71 (83) 100 01/22/19 19:00 98.0 120 28 103/55 (71) 100 01/22/19 19:00 103/55 01/22/19 18:46 114/58 01/22/19 18:45 103/55 01/22/19 18:45 122 30 100 Mechanical Ventilator 30 122 30 30 01/22/19 18:30 114/58 01/22/19 18:00 97/59 01/22/19 17:30 95/62 01/22/19 17:28 121 28 30 01/22/19 17:00 96/53 01/22/19 16:30 102/72 01/22/19 16:00 30 01/22/19 16:00 116 01/22/19 16:00 90/64 11/2/19 16:00 Trach Collar 01/22/19 15:42 107/75 01/22/19 15:41 106/61 01/22/19 15:30 96/64 01/22/19 15:00 95/54 01/22/19 14:50 117 29 30 01/22/19 14:30 97/68 01/22/19 14:00 111/65 01/22/19 13:35 114 27 100 Mechanical Ventilator 30 112 16 30 01/22/19 13:30 96/62 01/22/19 13:12 121/56 01/22/19 12:30 98/60 01/22/19 12:00 Trach Collar 01/22/19 12:00 94/67 01/22/19 12:00 106 01/22/19 11:30 98/69 01/22/19 11:03 106 23 30 01/22/19 11:00 107 24 98/70 (79) 01/22/19 11:00 103/71 01/22/19 11:00 30 01/22/19 10:45 106 24 94/67 (76) 01/22/19 10:30 105 23 100/66 (77) 96 01/22/19 10:30 94/67 01/22/19 10:15 103 23 96/64 (75) 100 01/22/19 10:00 103 23 94/65 (75) 100 01/22/19 10:00 96/64 01/22/19 09:45 104 24 94/65 (75) 100 01/22/19 09:44 97/69 01/22/19 09:43 94/65 01/22/19 09:30 105 25 97/69 (78) 100 01/22/19 09:30 94/65 01/22/19 09:15 106 24 97/69 (78) 100 01/22/19 09:14 106 24 40 01/22/19 09:00 106 21 97/69 (78) 100 01/22/19 09:00 95/66 01/22/19 08:45 104 21 94/60 (71) 100 01/22/19 08:30 106 22 94/60 (71) 100 01/22/19 08:30 97/69 01/22/19 08:15 104 21 94/60 (71) 100 01/22/19 08:04 106 18 100 Mechanical Ventilator 40 106 16 40 01/22/19 08:00 106 01/22/19 08:00 98.2 106 19 94/60 (71) 100 01/22/19 08:00 90/56 01/22/19 08:00 Trach Collar Status: awake Condition: critical HEENT: atraumatic Neck: full ROM Lungs: chest wall tender Heart: HR/BP stable Abdomen: soft, active bowel sounds Extremities: no C/C/E, edema Decubiti: location Micro: Microbiology Date/Time Source Procedure Growth Status 01/22/19 02:10 Blood Blood Culture - Preliminary NO GROWTH AFTER 24 HOURS Resulted 01/22/19 02:00 Blood Blood Culture - Preliminary NO GROWTH AFTER 24 HOURS Resulted 01/22/19 02:10 Rectum Received Accucheck: 212 Critical Care - Subjective ROS Limited/Unobtainable: No Condition: critical EKG Rhythm: Sinus Rhythm FI02: 30 Vent Support Breath Rate: 16 Vent Support Mode: AC Vent Tidal Volume: 500 Sputum Amount: Scant PEEP: 5.0 PIP: 17 I&O: Intake and Output 01/22/19 01/23/19 19:00 07:00 Intake Total 4419.95 ml 1957.500 ml Output Total 1130 ml 1100 ml Balance 3289.95 ml 857.500 ml IV Total 4419.95 ml 1957.500 ml Output Urine Total 1130 ml 600 ml Stool Total 200 ml Gastric Drainage Total 300 ml # Bowel Movements 2 2 Labs: Laboratory Tests Test 01/22/19 10:00 01/22/19 10:37 01/22/19 16:40 01/22/19 21:03 Urine Color Yellow Urine Appearance Clear Urine pH 5 (4.5-8.0) Urine Specific [place] 1.010 (1.005-1.035) Urine Protein 2+ (NEGATIVE) H Urine Glucose (UA) Negative (NEGATIVE) Urine Ketones Negative (NEGATIVE) Urine Blood 2+ (NEGATIVE) H Urine Nitrite Negative (NEGATIVE) Urine Bilirubin Negative (NEGATIVE) Urine Urobilinogen Normal MG/DL (0.0-1.0) Urine Leukocyte Esterase 1+ (NEGATIVE) H Urine RBC 5-10 /HPF (0 - 0) H Urine WBC 2-4 /HPF (0 - 0) Urine Squamous Epithelial Cells Occasional /LPF Urine Bacteria Few /HPF (NONE) Urine Osmolality 413 mOsm/kg (429-449) L Urine Random Sodium < 20 mmol/L (20-110) L White Blood Count 30.7 K/UL (4.8-10.8) *H Red Blood Count 4.49 M/UL (4.70-6.10) L Hemoglobin 13.0 G/DL (14.2-18.0) L Hematocrit 40.2 % (42.0-52.0) L Mean Corpuscular Volume 89 FL (80-99) Mean Corpuscular Hemoglobin 29.0 PG (27.0-31.0) Mean Corpuscular Hemoglobin Concent 32.3 G/DL (32.0-36.0) Red Cell Distribution Width 14.7 % (11.6-14.8) Platelet Count 232 K/UL (150-450) Mean Platelet Volume 8.4 FL (6.5-10.1) Neutrophils (%) (Auto) % (45.0-75.0) Lymphocytes (%) (Auto) % (20.0-45.0) Monocytes (%) (Auto) % (1.0-10.0) Eosinophils (%) (Auto) % (0.0-3.0) Basophils (%) (Auto) % (0.0-2.0) Differential Total Cells Counted 100 Neutrophils % (Manual) 66 % (45-75) Lymphocytes % (Manual) 10 % (20-45) L Monocytes % (Manual) 5 % (1-10) Eosinophils % (Manual) 1 % (0-3) Basophils % (Manual) 0 % (0-2) Band Neutrophils 18 % (0-8) H Platelet Estimate Adequate Platelet Morphology Normal Anisocytosis 1+ Sodium Level 130 MMOL/L (136-145) L Potassium Level 4.8 MMOL/L (3.5-5.1) Chloride Level 101 MMOL/L (98-107) Carbon Dioxide Level 21 MMOL/L (21-32) Anion Gap 8 mmol/L (5-15) Blood Urea Nitrogen 55 mg/dL (7-18) H Creatinine 0.9 MG/DL (0.55-1.30) Estimat Glomerular Filtration Rate > 60 mL/min (>60) Glucose Level 234 MG/DL (74-106) H Hemoglobin A1c 6.4 % (4.3-6.0) H Lactic Acid Level 3.80 mmol/L (0.4-2.0) H 3.90 mmol/L (0.4-2.0) H 2.70 mmol/L (0.66-2.22) H Calcium Level 8.0 MG/DL (8.5-10.1) L Magnesium Level 1.9 MG/DL (1.8-2.4) Total Bilirubin 0.8 MG/DL (0.2-1.0) Aspartate Amino Transf (AST/SGOT) 51 U/L (15-37) H Alanine Aminotransferase (ALT/SGPT) 30 U/L (12-78) Alkaline Phosphatase 226 U/L (46-116) H Total Protein 6.3 G/DL (6.4-8.2) L Albumin 1.4 G/DL (3.4-5.0) L Globulin 4.9 g/dL Albumin/Globulin Ratio 0.3 (1.0-2.7) L Test 01/23/19 05:15 01/23/19 05:30 White Blood Count 25.3 K/UL (4.8-10.8) *H Red Blood Count 3.99 M/UL (4.70-6.10) L Hemoglobin 11.7 G/DL (14.2-18.0) L Hematocrit 35.3 % (42.0-52.0) L Mean Corpuscular Volume 89 FL (80-99) Mean Corpuscular Hemoglobin 29.3 PG (27.0-31.0) Mean Corpuscular Hemoglobin Concent 33.1 G/DL (32.0-36.0) Red Cell Distribution Width 14.2 % (11.6-14.8) Platelet Count 224 K/UL (150-450) Mean Platelet Volume 8.5 FL (6.5-10.1) Neutrophils (%) (Auto) % (45.0-75.0) Lymphocytes (%) (Auto) % (20.0-45.0) Monocytes (%) (Auto) % (1.0-10.0) Eosinophils (%) (Auto) % (0.0-3.0) Basophils (%) (Auto) % (0.0-2.0) Neutrophils % (Manual) Pending Lymphocytes % (Manual) Pending Platelet Estimate Pending Platelet Morphology Pending Sodium Level Pending Potassium Level Pending Chloride Level Pending Carbon Dioxide Level Pending Blood Urea Nitrogen Pending Creatinine Pending Estimat Glomerular Filtration Rate Pending Glucose Level Pending Calcium Level Pending Phosphorus Level Pending Magnesium Level Pending Total Bilirubin Pending Aspartate Amino Transf (AST/SGOT) Pending Alanine Aminotransferase (ALT/SGPT) Pending Alkaline Phosphatase Pending Total Protein Pending Albumin Pending Globulin Pending Hemoglobin A1c 5.3 % (4.3-6.0) Lactic Acid Level 0.90 mmol/L (0.4-2.0) Uric Acid 1.0 MG/DL (2.6-7.2) L Gamma Glutamyl Transpeptidase 58 U/L (5-85) Ammonia 33 umol/L (11-32) H Total Creatine Kinase 91 U/L (26-308) Troponin I 0.000 ng/mL (0.000-0.056) C-Reactive Protein, Quantitative > 70.0 mg/dL (0.00-0.90) H Pro-B-Type Natriuretic Peptide 110 pg/mL (0-125) Cortisol AM Sample Pending Sagar Rudd MD Jan 23, 2019 07:46
[2019-01-23 07:49] LABS: ALANINE AMINOTRANSFERASE 32 U/L (12-78); ALBUMIN 1.3 G/DL (3.4-5.0); ALBUMIN/GLOBULIN RATIO 0.3 (1.0-2.7); ALKALINE PHOSPHATASE 222 U/L (46-116); ANION GAP 11 mmol/L (5-15); ASPARTATE AMINO TRANSFERASE 46 U/L (15-37); BILIRUBIN,TOTAL 0.4 MG/DL (0.2-1.0); BLOOD UREA NITROGEN 29 mg/dL (7-18); CALCIUM 7.7 MG/DL (8.5-10.1); CARBON DIOXIDE 19 MMOL/L (21-32); CHLORIDE 102 MMOL/L (98-107); CREATININE 0.8 MG/DL (0.55-1.30); PHOSPHORUS 1.6 MG/DL (2.5-4.9); POTASSIUM 3.1 MMOL/L (3.5-5.1); SODIUM 132 MMOL/L (136-145)
[2019-01-23] MEDS: Vancomycin 750mg/NS 275ml IVPB SCH ×2 (08:16)
[2019-01-23] MEDS: Vitamin D 1000 IU Tab GT SCH (08:17)
[2019-01-23] MEDS: Tamsulosin 0.4mg cap ORAL SCH ×2 (08:17→17:22)
[2019-01-23] MEDS: Pantoprazole Inj IVP SCH ×2 (08:18→20:56)
--- NOTE | 2019-01-23 08:20 | NUR ---
NURSE NOTES: Provided oral care and repositioned patient.
--- NOTE | 2019-01-23 09:00 | NUR ---
NURSE NOTES: BP is stable. Titrate down levophed from 4mcg/min to 2mcg/min. Will continue to monitor.
--- NOTE | 2019-01-23 09:06 | NUR ---
RD ASSESSMENT & RECOMMENDATIONS SEE CARE ACTIVITY FOR COMPLETE ASSESSMENT DAILY ESTIMATED NEEDS: Needs based on Critical care, wound 68kg 22-30 kcals/kg 3467-7570 total kcals 1.25-2 g protein/kg 85-136 g total protein 25-30 mL/kg 1488-5206 total fluid mLs NUTRITION DIAGNOSIS: 1) Swallowing difficulty R/T respiratory status as evidenced by pt vent dep via trach, PEG dep, on TF. 2) Increased kcal/prot needs R/T wound healing as evidenced by pt admitted w/ multiple wounds, including open sacral wound, eval pending. ENTERAL NUTRITION RECOMMENDATIONS: Vital AF 1.2 @55ml x24 hrs to provide 1320ml, 1584kcal, 99g prot, 1071ml free H20 * As medically appropriate w/ hemodynamic stability, rec elemental formula of Vital for GI tolerance. * Initiate VITAL 1.2 @ 15ml/hr x 6 hrs, advance 10ml q 4-6 hrs as tolerated to goal rate. * HOB >30 degrees/ water flushes per MD ADDITIONAL RECOMMENDATIONS: 1) Maintain calibrated bed scale wts 2) Wound healing: add Darryl 1pkt BID w/ TF order Add Vit C 250mg daily (f/up w/ WC eval) 3) F/up w/ H&P 4) Lytes daily, replete as needed
--- NOTE | 2019-01-23 09:34 | NUR ---
NURSE NOTES: Lab called that pt is positive for c.diff. Called Dr. schmidt and new order carried out.
[2019-01-23] MEDS ORDERED: D5NS 1000ml IV ONE (09:55)
[2019-01-23] MEDS ORDERED: Tubing IV Secondary IV ONE (09:55)
[2019-01-23] MEDS ORDERED: NS 275ml ONE (09:55)
--- NOTE | 2019-01-23 10:02 | NUR ---
NURSE NOTES: Seen by Dr. Santamaria and informed coffee ground color drainage 300ml from Gtube since last night. No new order at this time. Will continue plan of care.
--- NOTE | 2019-01-23 10:34 | General Progress Note ---
Assessment/Plan Assessment/Plan: GI CONSULT ATSP for UGIB Full note dictated Will discuss with family - message left on VM Thank you Jimmy Toledo MD Subjective Allergies: Coded Allergies: OXYTETRACYCLINE (Unverified Allergy, Unknown, 09/05/13) PENICILLINS (Unverified Allergy, Unknown, 06/11/17) Tolerated one dose of Cefepime 06/07/17 Tolerated Cefdinir 06/10/17 Uncoded Allergies: PLASTIC TAPE (Allergy, Mild, ITCHINESS, 08/08/15) MEDICAL TAPE (Allergy, Unknown, 12/10/16) Objective Last 24 Hour Vital Signs Date Time Temp Pulse Resp B/P (MAP) Pulse Ox O2 Delivery O2 Flow Rate FiO2 01/23/19 09:00 133 24 95/65 (75) 100 01/23/19 08:42 132 28 30 01/23/19 08:30 137 22 100/63 (75) 99 01/23/19 08:00 Mechanical Ventilator 01/23/19 08:00 97.2 137 23 99/65 (76) 99 01/23/19 08:00 30 01/23/19 07:33 135 28 100 Mechanical Ventilator 30 131 30 30 01/23/19 07:30 135 26 94/68 (77) 99 01/23/19 07:00 132 25 89/68 (75) 99 01/23/19 07:00 89/68 01/23/19 06:45 133 25 86/63 (71) 99 01/23/19 06:30 134 24 86/62 (70) 99 01/23/19 06:15 133 24 93/64 (74) 98 01/23/19 06:00 89/64 01/23/19 06:00 132 25 89/64 (72) 98 01/23/19 05:45 133 24 94/70 (78) 98 01/23/19 05:30 133 24 90/60 (70) 98 01/23/19 05:15 133 24 89/59 (69) 98 01/23/19 05:11 133 27 30 01/23/19 05:00 133 24 93/66 (75) 100 01/23/19 05:00 93/66 01/23/19 04:45 98.1 134 24 102/64 (77) 99 01/23/19 04:30 139 25 86/70 (75) 97 01/23/19 04:15 137 27 121/68 (85) 96 01/23/19 04:00 Mechanical Ventilator 01/23/19 04:00 30 01/23/19 04:00 136 26 109/59 (76) 100 01/23/19 04:00 109/59 01/23/19 04:00 132 01/23/19 03:45 137 25 121/63 (82) 100 01/23/19 03:30 135 25 124/79 (94) 100 01/23/19 03:15 132 27 120/64 (82) 100 01/23/19 03:01 132 28 30 01/23/19 03:00 132 26 102/80 (87) 100 01/23/19 03:00 102/80 01/23/19 02:45 133 26 102/72 (82) 100 01/23/19 02:30 131 26 105/74 (84) 100 01/23/19 02:15 131 25 103/68 (80) 100 01/23/19 02:00 105/63 01/23/19 02:00 132 27 105/63 (77) 100 01/23/19 01:45 131 27 97/66 (76) 100 01/23/19 01:30 129 27 110/62 (78) 100 01/23/19 01:15 130 25 112/61 (78) 100 01/23/19 01:14 130 26 101/71 (81) 100 01/23/19 01:04 129 26 100 Mechanical Ventilator 30 122 30 30 01/23/19 01:00 130 25 101/68 (79) 100 01/23/19 01:00 101/68 01/23/19 00:45 128 25 99/65 (76) 100 01/23/19 00:30 129 27 103/51 (68) 100 01/23/19 00:15 127 24 108/65 (79) 100 01/23/19 00:00 Trach Collar 01/23/19 00:00 126 01/23/19 00:00 30 01/23/19 00:00 103/61 01/23/19 00:00 98.2 129 26 103/61 (75) 100 01/22/19 23:45 128 25 105/63 (77) 100 01/22/19 23:30 127 25 101/67 (78) 100 01/22/19 23:29 128 28 30 01/22/19 23:15 127 25 100/66 (77) 100 01/22/19 23:00 105/65 01/22/19 23:00 126 25 105/65 (78) 100 01/22/19 22:45 126 25 110/55 (73) 100 01/22/19 22:30 126 25 105/66 (79) 100 01/22/19 22:15 126 25 112/67 (82) 100 01/22/19 22:00 96/64 01/22/19 22:00 127 25 96/64 (75) 100 01/22/19 21:45 126 24 97/55 (69) 100 01/22/19 21:30 126 26 98/59 (72) 100 01/22/19 21:15 126 24 99/61 (74) 100 01/22/19 21:11 126 26 30 01/22/19 21:00 125 26 98/66 (77) 100 01/22/19 21:00 98/66 01/22/19 20:58 110/72 01/22/19 20:45 122 22 110/72 (85) 100 01/22/19 20:30 124 27 104/65 (78) 100 01/22/19 20:15 124 28 105/70 (82) 100 01/22/19 20:00 124 28 109/69 (82) 100 01/22/19 20:00 Trach Collar 01/22/19 20:00 120 01/22/19 20:00 109/69 01/22/19 20:00 30 01/22/19 19:45 121 27 101/69 (80) 100 01/22/19 19:30 120 28 103/68 (80) 100 01/22/19 19:15 119 28 108/71 (83) 100 01/22/19 19:00 98.0 120 28 103/55 (71) 100 01/22/19 19:00 103/55 01/22/19 18:46 114/58 01/22/19 18:45 103/55 01/22/19 18:45 122 30 100 Mechanical Ventilator 30 122 30 30 01/22/19 18:30 119 29 100 01/22/19 18:30 114/58 01/22/19 18:00 121 26 101/60 (74) 11/2/19 18:00 97/59 01/22/19 17:30 120 25 100/49 (66) 100 01/22/19 17:30 95/62 01/22/19 17:28 121 28 30 01/22/19 17:00 124 29 103/71 (82) 100 01/22/19 17:00 96/53 01/22/19 16:30 102/72 01/22/19 16:30 115 27 102/66 (78) 95 01/22/19 16:00 98.0 116 30 106/61 (76) 100 01/22/19 16:00 30 01/22/19 16:00 116 01/22/19 16:00 90/64 01/22/19 16:00 Trach Collar 01/22/19 15:42 107/75 01/22/19 15:41 106/61 01/22/19 15:30 115 31 107/75 (86) 100 01/22/19 15:30 96/64 01/22/19 15:00 95/54 01/22/19 15:00 116 29 110/63 (79) 100 01/22/19 14:50 117 29 30 01/22/19 14:30 97/68 01/22/19 14:30 115 28 98/53 (68) 100 01/22/19 14:00 111 28 94/66 (75) 01/22/19 14:00 111/65 01/22/19 13:35 114 27 100 Mechanical Ventilator 30 112 16 30 01/22/19 13:30 115 27 97/67 (77) 01/22/19 13:30 96/62 01/22/19 13:12 121/56 01/22/19 13:00 121 27 79/55 (63) 100 01/22/19 12:30 98/60 01/22/19 12:30 110 24 91/62 (72) 100 01/22/19 12:00 97.5 108 22 95/69 (78) 100 01/22/19 12:00 Trach Collar 01/22/19 12:00 94/67 01/22/19 12:00 106 01/22/19 11:30 98/69 01/22/19 11:30 107 23 100/72 (81) 100 11/2/19 11:03 106 23 30 01/22/19 11:00 107 24 98/70 (79) 01/22/19 11:00 103/71 01/22/19 11:00 30 01/22/19 10:45 106 24 94/67 (76) Intake and Output 01/22/19 01/23/19 19:00 07:00 Intake Total 4419.95 ml 1957.500 ml Output Total 1130 ml 1100 ml Balance 3289.95 ml 857.500 ml IV Total 4419.95 ml 1957.500 ml Output Urine Total 1130 ml 600 ml Stool Total 200 ml Gastric Drainage Total 300 ml # Bowel Movements 2 2 Laboratory Tests 01/22/19 10:37: White Blood Count 30.7*H, Red Blood Count 4.49L, Hemoglobin 13.0L, Hematocrit 40.2L, Mean Corpuscular Volume 89, Mean Corpuscular Hemoglobin 29.0, Mean Corpuscular Hemoglobin Concent 32.3, Red Cell Distribution Width 14.7, Platelet Count 232, Mean Platelet Volume 8.4, Neutrophils (%) (Auto) , Lymphocytes (%) ( Auto) , Monocytes (%) (Auto) , Eosinophils (%) (Auto) , Basophils (%) (Auto) , Differential Total Cells Counted 100, Neutrophils % (Manual) 66, Lymphocytes % ( Manual) 10L, Monocytes % (Manual) 5, Eosinophils % (Manual) 1, Basophils % ( Manual) 0, Band Neutrophils 18H, Platelet Estimate Adequate, Platelet Morphology Normal, Anisocytosis 1+, Sodium Level 130L, Potassium Level 4.8, Chloride Level 101, Carbon Dioxide Level 21, Anion Gap 8, Blood Urea Nitrogen 55H, Creatinine 0.9, Estimat Glomerular Filtration Rate > 60, Glucose Level 234H , Hemoglobin A1c 6.4H, Lactic Acid Level 3.80H, Calcium Level 8.0L, Magnesium Level 1.9, Total Bilirubin 0.8, Aspartate Amino Transf (AST/SGOT) 51H, Alanine Aminotransferase (ALT/SGPT) 30, Alkaline Phosphatase 226H, Total Protein 6.3L, Albumin 1.4L, Globulin 4.9, Albumin/Globulin Ratio 0.3L 01/22/19 16:40: Lactic Acid Level 3.90H 01/22/19 21:03: Lactic Acid Level 2.70H 01/23/19 05:15: White Blood Count 25.3*H, Red Blood Count 3.99L, Hemoglobin 11.7L, Hematocrit 35.3L, Mean Corpuscular Volume 89, Mean Corpuscular Hemoglobin 29.3, Mean Corpuscular Hemoglobin Concent 33.1, Red Cell Distribution Width 14.2, Platelet Count 224, Mean Platelet Volume 8.5, Neutrophils (%) (Auto) , Lymphocytes (%) ( Auto) , Monocytes (%) (Auto) , Eosinophils (%) (Auto) , Basophils (%) (Auto) , Differential Total Cells Counted 100, Neutrophils % (Manual) 72, Lymphocytes % ( Manual) 4L, Monocytes % (Manual) 6, Eosinophils % (Manual) 0, Basophils % ( Manual) 0, Band Neutrophils 18H, Platelet Estimate Adequate, Platelet Morphology Normal, Anisocytosis 1+, Sodium Level 132L, Potassium Level 3.1L, Chloride Level 102, Carbon Dioxide Level 19L, Anion Gap 11, Blood Urea Nitrogen 29H, Creatinine 0.8, Estimat Glomerular Filtration Rate > 60, Glucose Level 234H , Calcium Level 7.7L, Magnesium Level 1.6L, Total Bilirubin 0.4, Aspartate Amino Transf (AST/SGOT) 46H, Alanine Aminotransferase (ALT/SGPT) 32, Alkaline Phosphatase 222H, Total Protein 5.9L, Albumin 1.3L, Globulin 4.6, Albumin/ Globulin Ratio 0.3L, Phosphorus Level 1.6L 01/23/19 05:30: Hemoglobin A1c 5.3, Lactic Acid Level 0.90, Uric Acid 1.0L, Gamma Glutamyl Transpeptidase 58, Ammonia 33H, Total Creatine Kinase 91, Troponin I 0.000, C- Reactive Protein, Quantitative > 70.0H, Pro-B-Type Natriuretic Peptide 110, Cortisol AM Sample [Pending] 01/23/19 08:50: Arterial Blood pH 7.439, Arterial Blood Partial Pressure CO2 25.1L, Arterial Blood Partial Pressure O2 96.4, Arterial Blood HCO3 16.6*L, Arterial Blood Oxygen Saturation 97.6, Arterial Blood Base Excess -5.9L, Melvin Test Positive Height (Feet): 5 Height (Inches): 6.00 Weight (Pounds): 150 Jimmy Santamaria MD Jan 23, 2019 10:34
--- NOTE | 2019-01-23 11:00 | NUR ---
NURSE NOTES: BP 105/68 on the monitor. Hold levophed for now. Will closely monitor.
--- NOTE | 2019-01-23 11:31 | Diagnostic Imaging Report ---
RENAL ULTRASOUND - COMPLETE INDICATION: Elevated creatinine. TECHNIQUE: Multiplanar ultrasound examination of the abdomen with greyscale and doppler imaging. COMPARISON: CT abdomen pelvis dated 02/27/2017 FINDINGS: Limited examination due to difficulty with patient positioning and body habitus. Right kidney: The right kidney measures 10.7 cm. Echogenicity is increased. There is no hydronephrosis. Echogenic focus measuring 8 mm in the lower pole likely represents a nonobstructing calculus. Left kidney: The left kidney measures 11.5 cm. Left kidney is incompletely evaluated. Bladder: Brooks catheter in situ. There is approximately 190 cc of residual urine. Other findings: Visualized aorta is unremarkable. IMPRESSION: Limited examination. 1. Increased echogenicity of the right kidney, which can be seen in medical renal disease. 2. Nonobstructing right nephrolithiasis, which is seen on comparison CT from 2017. 3. Residual urine in bladder catheterized with Brooks. Clinical correlation is recommended.
--- NOTE | 2019-01-23 12:15 | NUR ---
NURSE NOTES: Notified Dr. Rodriguez for blood culture results. No new orders at this time.
--- NOTE | 2019-01-23 12:29 | Diagnostic Imaging Report ---
Indication: Reason For Exam: DYSPNEA Technique: Single AP view of the chest. Comparison: Chest radiograph dated 01/22/2019 Findings: The cardiomediastinal silhouette is unchanged. Redemonstration of bibasilar patchy airspace opacities. Unchanged pulmonary vascular congestion. No pneumothorax. Stable small left pleural effusion. Unchanged right approach central venous catheter and cannulated tracheostomy. IMPRESSION: No significant change from prior examination.
--- NOTE | 2019-01-23 12:50 | NUR ---
NURSE NOTES: Seen by Dr. Arevalo and assessed patient.
[2019-01-23] MEDS: Vancomycin oral 125mg/2.5ml GT SCH ×3 (13:16→20:56)
--- NOTE | 2019-01-23 13:20 | NUR ---
NURSE NOTES: Seen by Dr. Rivera with new orders for electrolytes.
--- NOTE | 2019-01-23 13:30 | Surgery Progress Note ---
Surgery Progress Note Subjective Additional Comments Patient seen and examined bedside. Off pressors. Tachycardic. Blood pressure improved. Labs as below. At bedside care plan discussed with Dr. Arevalo. I expressed to him the changes in finding as compared to April of this year. Objective Last 24 Hour Vital Signs Date Time Temp Pulse Resp B/P (MAP) Pulse Ox O2 Delivery O2 Flow Rate FiO2 01/23/19 13:07 130 26 100 Mechanical Ventilator 30 128 29 30 01/23/19 12:00 30 01/23/19 11:00 105/68 01/23/19 10:57 131 26 30 01/23/19 10:30 132 26 93/68 (76) 100 01/23/19 10:00 130 25 92/64 (73) 100 01/23/19 10:00 92/64 01/23/19 09:30 132 25 92/67 (75) 100 01/23/19 09:00 133 24 95/65 (75) 100 01/23/19 09:00 95/65 01/23/19 08:42 132 28 30 01/23/19 08:30 137 22 100/63 (75) 99 01/23/19 08:00 Mechanical Ventilator 01/23/19 08:00 135 01/23/19 08:00 97.2 137 23 99/65 (76) 99 01/23/19 08:00 99/65 01/23/19 08:00 30 01/23/19 07:33 135 28 100 Mechanical Ventilator 30 131 30 30 01/23/19 07:30 135 26 94/68 (77) 99 01/23/19 07:00 132 25 89/68 (75) 99 01/23/19 07:00 89/68 01/23/19 06:45 133 25 86/63 (71) 99 01/23/19 06:30 134 24 86/62 (70) 99 01/23/19 06:15 133 24 93/64 (74) 98 01/23/19 06:00 89/64 01/23/19 06:00 132 25 89/64 (72) 98 01/23/19 05:45 133 24 94/70 (78) 98 01/23/19 05:30 133 24 90/60 (70) 98 01/23/19 05:15 133 24 89/59 (69) 98 01/23/19 05:11 133 27 30 11/3/19 05:00 133 24 93/66 (75) 100 01/23/19 05:00 93/66 01/23/19 04:45 98.1 134 24 102/64 (77) 99 01/23/19 04:30 139 25 86/70 (75) 97 01/23/19 04:15 137 27 121/68 (85) 96 01/23/19 04:00 Mechanical Ventilator 01/23/19 04:00 30 01/23/19 04:00 136 26 109/59 (76) 100 01/23/19 04:00 109/59 01/23/19 04:00 132 01/23/19 03:45 137 25 121/63 (82) 100 01/23/19 03:30 135 25 124/79 (94) 100 01/23/19 03:15 132 27 120/64 (82) 100 01/23/19 03:01 132 28 30 01/23/19 03:00 132 26 102/80 (87) 100 01/23/19 03:00 102/80 01/23/19 02:45 133 26 102/72 (82) 100 01/23/19 02:30 131 26 105/74 (84) 100 01/23/19 02:15 131 25 103/68 (80) 100 01/23/19 02:00 105/63 01/23/19 02:00 132 27 105/63 (77) 100 01/23/19 01:45 131 27 97/66 (76) 100 01/23/19 01:30 129 27 110/62 (78) 100 01/23/19 01:15 130 25 112/61 (78) 100 01/23/19 01:14 130 26 101/71 (81) 100 01/23/19 01:04 129 26 100 Mechanical Ventilator 30 122 30 30 01/23/19 01:00 130 25 101/68 (79) 100 01/23/19 01:00 101/68 01/23/19 00:45 128 25 99/65 (76) 100 01/23/19 00:30 129 27 103/51 (68) 100 01/23/19 00:15 127 24 108/65 (79) 100 01/23/19 00:00 Trach Collar 01/23/19 00:00 126 01/23/19 00:00 30 01/23/19 00:00 103/61 01/23/19 00:00 98.2 129 26 103/61 (75) 100 01/22/19 23:45 128 25 105/63 (77) 100 01/22/19 23:30 127 25 101/67 (78) 100 01/22/19 23:29 128 28 30 01/22/19 23:15 127 25 100/66 (77) 100 01/22/19 23:00 105/65 01/22/19 23:00 126 25 105/65 (78) 100 01/22/19 22:45 126 25 110/55 (73) 100 01/22/19 22:30 126 25 105/66 (79) 100 01/22/19 22:15 126 25 112/67 (82) 100 01/22/19 22:00 96/64 01/22/19 22:00 127 25 96/64 (75) 100 01/22/19 21:45 126 24 97/55 (69) 100 01/22/19 21:30 126 26 98/59 (72) 100 01/22/19 21:15 126 24 99/61 (74) 100 01/22/19 21:11 126 26 30 01/22/19 21:00 125 26 98/66 (77) 100 01/22/19 21:00 98/66 01/22/19 20:58 110/72 01/22/19 20:45 122 22 110/72 (85) 100 01/22/19 20:30 124 27 104/65 (78) 100 01/22/19 20:15 124 28 105/70 (82) 100 01/22/19 20:00 124 28 109/69 (82) 100 01/22/19 20:00 Trach Collar 01/22/19 20:00 120 01/22/19 20:00 109/69 01/22/19 20:00 30 01/22/19 19:45 121 27 101/69 (80) 100 01/22/19 19:30 120 28 103/68 (80) 100 01/22/19 19:15 119 28 108/71 (83) 100 01/22/19 19:00 98.0 120 28 103/55 (71) 100 01/22/19 19:00 103/55 01/22/19 18:46 114/58 11/2/19 18:45 103/55 01/22/19 18:45 122 30 100 Mechanical Ventilator 30 122 30 30 01/22/19 18:30 119 29 100 01/22/19 18:30 114/58 01/22/19 18:00 121 26 101/60 (74) 01/22/19 18:00 97/59 01/22/19 17:30 120 25 100/49 (66) 100 01/22/19 17:30 95/62 01/22/19 17:28 121 28 30 01/22/19 17:00 124 29 103/71 (82) 100 01/22/19 17:00 96/53 01/22/19 16:30 102/72 01/22/19 16:30 115 27 102/66 (78) 95 01/22/19 16:00 98.0 116 30 106/61 (76) 100 01/22/19 16:00 30 01/22/19 16:00 116 01/22/19 16:00 90/64 01/22/19 16:00 Trach Collar 01/22/19 15:42 107/75 01/22/19 15:41 106/61 01/22/19 15:30 115 31 107/75 (86) 100 01/22/19 15:30 96/64 01/22/19 15:00 95/54 01/22/19 15:00 116 29 110/63 (79) 100 01/22/19 14:50 117 29 30 01/22/19 14:30 97/68 01/22/19 14:30 115 28 98/53 (68) 100 01/22/19 14:00 111 28 94/66 (75) 01/22/19 14:00 111/65 01/22/19 13:35 114 27 100 Mechanical Ventilator 30 112 16 30 01/22/19 13:30 115 27 97/67 (77) 01/22/19 13:30 96/62 I&O Intake and Output 01/22/19 01/23/19 19:00 07:00 Intake Total 4419.95 ml 1957.500 ml Output Total 1130 ml 1100 ml Balance 3289.95 ml 857.500 ml IV Total 4419.95 ml 1957.500 ml Output Urine Total 1130 ml 600 ml Stool Total 200 ml Gastric Drainage Total 300 ml # Bowel Movements 2 2 Dressing: saturated Wound: other Drains: other Cardiovascular: RSR Respiratory: decreased breath sounds Abdomen: soft, present bowel sounds, non-distended Extremities: edema, cyanosis, other Laboratory Tests Test 01/22/19 16:40 01/22/19 21:03 01/23/19 05:15 01/23/19 05:30 Lactic Acid Level 3.90 mmol/L (0.4-2.0) H 2.70 mmol/L (0.66-2.22) H 0.90 mmol/L (0.4-2.0) White Blood Count 25.3 K/UL (4.8-10.8) *H Red Blood Count 3.99 M/UL (4.70-6.10) L Hemoglobin 11.7 G/DL (14.2-18.0) L Hematocrit 35.3 % (42.0-52.0) L Mean Corpuscular Volume 89 FL (80-99) Mean Corpuscular Hemoglobin 29.3 PG (27.0-31.0) Mean Corpuscular Hemoglobin Concent 33.1 G/DL (32.0-36.0) Red Cell Distribution Width 14.2 % (11.6-14.8) Platelet Count 224 K/UL (150-450) Mean Platelet Volume 8.5 FL (6.5-10.1) Neutrophils (%) (Auto) % (45.0-75.0) Lymphocytes (%) (Auto) % (20.0-45.0) Monocytes (%) (Auto) % (1.0-10.0) Eosinophils (%) (Auto) % (0.0-3.0) Basophils (%) (Auto) % (0.0-2.0) Differential Total Cells Counted 100 Neutrophils % (Manual) 72 % (45-75) Lymphocytes % (Manual) 4 % (20-45) L Monocytes % (Manual) 6 % (1-10) Eosinophils % (Manual) 0 % (0-3) Basophils % (Manual) 0 % (0-2) Band Neutrophils 18 % (0-8) H Platelet Estimate Adequate Platelet Morphology Normal Anisocytosis 1+ Sodium Level 132 MMOL/L (136-145) L Potassium Level 3.1 MMOL/L (3.5-5.1) L Chloride Level 102 MMOL/L (98-107) Carbon Dioxide Level 19 MMOL/L (21-32) L Anion Gap 11 mmol/L (5-15) Blood Urea Nitrogen 29 mg/dL (7-18) H Creatinine 0.8 MG/DL (0.55-1.30) Estimat Glomerular Filtration Rate > 60 mL/min (>60) Glucose Level 234 MG/DL (74-106) H Calcium Level 7.7 MG/DL (8.5-10.1) L Phosphorus Level 1.6 MG/DL (2.5-4.9) L Magnesium Level 1.6 MG/DL (1.8-2.4) L Total Bilirubin 0.4 MG/DL (0.2-1.0) Aspartate Amino Transf (AST/SGOT) 46 U/L (15-37) H Alanine Aminotransferase (ALT/SGPT) 32 U/L (12-78) Alkaline Phosphatase 222 U/L (46-116) H Total Protein 5.9 G/DL (6.4-8.2) L Albumin 1.3 G/DL (3.4-5.0) L Globulin 4.6 g/dL Albumin/Globulin Ratio 0.3 (1.0-2.7) L Hemoglobin A1c 5.3 % (4.3-6.0) Uric Acid 1.0 MG/DL (2.6-7.2) L Gamma Glutamyl Transpeptidase 58 U/L (5-85) Ammonia 33 umol/L (11-32) H Total Creatine Kinase 91 U/L (26-308) Troponin I 0.000 ng/mL (0.000-0.056) C-Reactive Protein, Quantitative > 70.0 mg/dL (0.00-0.90) H Pro-B-Type Natriuretic Peptide 110 pg/mL (0-125) Cortisol AM Sample Pending Test 01/23/19 08:50 Arterial Blood pH 7.439 (7.350-7.450) Arterial Blood Partial Pressure CO2 25.1 mmHg (35.0-45.0) L Arterial Blood Partial Pressure O2 96.4 mmHg (75.0-100.0) Arterial Blood HCO3 16.6 mmol/L (22.0-26.0) *L Arterial Blood Oxygen Saturation 97.6 % (95-100) Arterial Blood Base Excess -5.9 (-2-2) L Melvin Test Positive Plan Problems: (1) Decubitus skin ulcer Assessment & Plan: Patient presented with multiple decubitus skin ulcers requiring care and management last was admitted in 04/2018 and DTI but no open sacral wounds 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 no signs of active infection, granulation tissue, no necrotic tissue, no drainage. periwound intact with some maceration right great toe deep ulcer with necrotic center and exposed, no drainage, no signs of active infection DTI to medical aspect for 1st metatarsal head multiple scattered <1-2cm areas of partial thickness skin abrasions noted on legs no signs of active infection from wounds which are seemingly chronic. Treatment Plan Wash sacral and buttock wounds daily with NS, apply therahoney to wound bed and gauze, apply foam dressing. change daily and prn saturation Monitor for incontinence and change as per unit protocol Betadine great toe ulceration and apply foam dressing change q3 days apply skin protectant and foam dressings to skin abrasions off load heels with pillows turn every two hours air soft mattress to be ordered nutritional optimization. nutrition consult placed (2) Septic shock Assessment & Plan: Leukocytosis trending down Lactic acidosis resolved off pressors on IV fluids Hold tube feeds for now Rx as written ICU care and management will follow with recs thank you (3) Feeding by G-tube Assessment & Plan: hold tube feeds for now will consider resuming once stabilized prognosis guarded (4) Vegetative state Jimmy Tang Jan 23, 2019 13:30
--- NOTE | 2019-01-23 13:33 | NUR ---
NURSE NOTES: Called Dr. Pierre. He said he will call back.
--- NOTE | 2019-01-23 13:53 | NUR ---
NURSE NOTES: Talked with Dr. Pierre and he will come to see him. Bladder scan done and noted 391ml. Will continue plan of care.
--- NOTE | 2019-01-23 15:12 | Nephrology Progress Note ---
Assessment/Plan Problem List: (1) HARDEEP (acute kidney injury) (2) Sepsis (3) Hyponatremia Assessment HARDEEP (acute kidney injury) HypoNatremia Septic shock Others: HCAP (healthcare-associated pneumonia) Chronic respiratory failure Ventilator dependence Vegetative state History of CVA (cerebrovascular accident) Feeding by G-tube HTN (hypertension) Cerebral vascular disease Plan Hydrate monitor renal parameters Midodrine Antibiotics Avoid nephrotoxics Brooks could not be put in due to resistance start flomax per order Objective Objective Last 24 Hour Vital Signs Date Time Temp Pulse Resp B/P (MAP) Pulse Ox O2 Delivery O2 Flow Rate FiO2 01/23/19 15:00 128 28 30 01/23/19 13:30 131 24 91/57 (68) 100 01/23/19 13:07 130 26 100 Mechanical Ventilator 30 128 29 30 01/23/19 13:00 129 26 103/68 (80) 100 01/23/19 12:30 130 28 95/60 (72) 100 01/23/19 12:00 30 01/23/19 12:00 Mechanical Ventilator 01/23/19 12:00 99.2 130 24 89/68 (75) 100 01/23/19 11:30 132 24 100/65 (77) 100 01/23/19 11:00 131 26 105/68 (80) 100 01/23/19 11:00 105/68 01/23/19 10:57 131 26 30 01/23/19 10:30 132 26 93/68 (76) 100 01/23/19 10:00 130 25 92/64 (73) 100 01/23/19 10:00 92/64 01/23/19 09:30 132 25 92/67 (75) 100 01/23/19 09:00 133 24 95/65 (75) 100 01/23/19 09:00 95/65 01/23/19 08:42 132 28 30 01/23/19 08:30 137 22 100/63 (75) 99 01/23/19 08:00 Mechanical Ventilator 01/23/19 08:00 135 01/23/19 08:00 97.2 137 23 99/65 (76) 99 01/23/19 08:00 99/65 01/23/19 08:00 30 01/23/19 07:33 135 28 100 Mechanical Ventilator 30 131 30 30 01/23/19 07:30 135 26 94/68 (77) 99 01/23/19 07:00 132 25 89/68 (75) 99 01/23/19 07:00 89/68 01/23/19 06:45 133 25 86/63 (71) 99 01/23/19 06:30 134 24 86/62 (70) 99 01/23/19 06:15 133 24 93/64 (74) 98 01/23/19 06:00 89/64 01/23/19 06:00 132 25 89/64 (72) 98 01/23/19 05:45 133 24 94/70 (78) 98 01/23/19 05:30 133 24 90/60 (70) 98 01/23/19 05:15 133 24 89/59 (69) 98 01/23/19 05:11 133 27 30 01/23/19 05:00 133 24 93/66 (75) 100 01/23/19 05:00 93/66 01/23/19 04:45 98.1 134 24 102/64 (77) 99 01/23/19 04:30 139 25 86/70 (75) 97 01/23/19 04:15 137 27 121/68 (85) 96 01/23/19 04:00 Mechanical Ventilator 01/23/19 04:00 30 01/23/19 04:00 136 26 109/59 (76) 100 01/23/19 04:00 109/59 01/23/19 04:00 132 01/23/19 03:45 137 25 121/63 (82) 100 01/23/19 03:30 135 25 124/79 (94) 100 01/23/19 03:15 132 27 120/64 (82) 100 01/23/19 03:01 132 28 30 01/23/19 03:00 132 26 102/80 (87) 100 01/23/19 03:00 102/80 01/23/19 02:45 133 26 102/72 (82) 100 01/23/19 02:30 131 26 105/74 (84) 100 01/23/19 02:15 131 25 103/68 (80) 100 01/23/19 02:00 105/63 01/23/19 02:00 132 27 105/63 (77) 100 01/23/19 01:45 131 27 97/66 (76) 100 01/23/19 01:30 129 27 110/62 (78) 100 01/23/19 01:15 130 25 112/61 (78) 100 01/23/19 01:14 130 26 101/71 (81) 100 01/23/19 01:04 129 26 100 Mechanical Ventilator 30 122 30 30 01/23/19 01:00 130 25 101/68 (79) 100 01/23/19 01:00 101/68 01/23/19 00:45 128 25 99/65 (76) 100 01/23/19 00:30 129 27 103/51 (68) 100 01/23/19 00:15 127 24 108/65 (79) 100 01/23/19 00:00 Trach Collar 01/23/19 00:00 126 01/23/19 00:00 30 01/23/19 00:00 103/61 01/23/19 00:00 98.2 129 26 103/61 (75) 100 01/22/19 23:45 128 25 105/63 (77) 100 01/22/19 23:30 127 25 101/67 (78) 100 01/22/19 23:29 128 28 30 01/22/19 23:15 127 25 100/66 (77) 100 01/22/19 23:00 105/65 01/22/19 23:00 126 25 105/65 (78) 100 01/22/19 22:45 126 25 110/55 (73) 100 01/22/19 22:30 126 25 105/66 (79) 100 01/22/19 22:15 126 25 112/67 (82) 100 01/22/19 22:00 96/64 01/22/19 22:00 127 25 96/64 (75) 100 01/22/19 21:45 126 24 97/55 (69) 100 01/22/19 21:30 126 26 98/59 (72) 100 01/22/19 21:15 126 24 99/61 (74) 100 01/22/19 21:11 126 26 30 01/22/19 21:00 125 26 98/66 (77) 100 01/22/19 21:00 98/66 01/22/19 20:58 110/72 01/22/19 20:45 122 22 110/72 (85) 100 01/22/19 20:30 124 27 104/65 (78) 100 01/22/19 20:15 124 28 105/70 (82) 100 01/22/19 20:00 124 28 109/69 (82) 100 01/22/19 20:00 Trach Collar 01/22/19 20:00 120 01/22/19 20:00 109/69 01/22/19 20:00 30 01/22/19 19:45 121 27 101/69 (80) 100 01/22/19 19:30 120 28 103/68 (80) 100 01/22/19 19:15 119 28 108/71 (83) 100 01/22/19 19:00 98.0 120 28 103/55 (71) 100 01/22/19 19:00 103/55 01/22/19 18:46 114/58 01/22/19 18:45 103/55 01/22/19 18:45 122 30 100 Mechanical Ventilator 30 122 30 30 01/22/19 18:30 119 29 100 01/22/19 18:30 114/58 01/22/19 18:00 121 26 101/60 (74) 01/22/19 18:00 97/59 01/22/19 17:30 120 25 100/49 (66) 100 01/22/19 17:30 95/62 01/22/19 17:28 121 28 30 01/22/19 17:00 124 29 103/71 (82) 100 01/22/19 17:00 96/53 01/22/19 16:30 102/72 01/22/19 16:30 115 27 102/66 (78) 95 01/22/19 16:00 98.0 116 30 106/61 (76) 100 01/22/19 16:00 30 01/22/19 16:00 116 01/22/19 16:00 90/64 01/22/19 16:00 Trach Collar 01/22/19 15:42 107/75 01/22/19 15:41 106/61 01/22/19 15:30 115 31 107/75 (86) 100 01/22/19 15:30 96/64 Intake and Output 01/22/19 01/23/19 19:00 07:00 Intake Total 4419.95 ml 1957.500 ml Output Total 1130 ml 1100 ml Balance 3289.95 ml 857.500 ml IV Total 4419.95 ml 1957.500 ml Output Urine Total 1130 ml 600 ml Stool Total 200 ml Gastric Drainage Total 300 ml # Bowel Movements 2 2 Laboratory Tests 01/22/19 16:40: Lactic Acid Level 3.90H 01/22/19 21:03: Lactic Acid Level 2.70H 01/23/19 05:15: White Blood Count 25.3*H, Red Blood Count 3.99L, Hemoglobin 11.7L, Hematocrit 35.3L, Mean Corpuscular Volume 89, Mean Corpuscular Hemoglobin 29.3, Mean Corpuscular Hemoglobin Concent 33.1, Red Cell Distribution Width 14.2, Platelet Count 224, Mean Platelet Volume 8.5, Neutrophils (%) (Auto) , Lymphocytes (%) ( Auto) , Monocytes (%) (Auto) , Eosinophils (%) (Auto) , Basophils (%) (Auto) , Differential Total Cells Counted 100, Neutrophils % (Manual) 72, Lymphocytes % ( Manual) 4L, Monocytes % (Manual) 6, Eosinophils % (Manual) 0, Basophils % ( Manual) 0, Band Neutrophils 18H, Platelet Estimate Adequate, Platelet Morphology Normal, Anisocytosis 1+, Sodium Level 132L, Potassium Level 3.1L, Chloride Level 102, Carbon Dioxide Level 19L, Anion Gap 11, Blood Urea Nitrogen 29H, Creatinine 0.8, Estimat Glomerular Filtration Rate > 60, Glucose Level 234H , Calcium Level 7.7L, Phosphorus Level 1.6L, Magnesium Level 1.6L, Total Bilirubin 0.4, Aspartate Amino Transf (AST/SGOT) 46H, Alanine Aminotransferase ( ALT/SGPT) 32, Alkaline Phosphatase 222H, Total Protein 5.9L, Albumin 1.3L, Globulin 4.6, Albumin/Globulin Ratio 0.3L 01/23/19 05:30: Lactic Acid Level 0.90, Hemoglobin A1c 5.3, Uric Acid 1.0L, Gamma Glutamyl Transpeptidase 58, Ammonia 33H, Total Creatine Kinase 91, Troponin I 0.000, C- Reactive Protein, Quantitative > 70.0H, Pro-B-Type Natriuretic Peptide 110, Cortisol AM Sample [Pending] 01/23/19 08:50: Arterial Blood pH 7.439, Arterial Blood Partial Pressure CO2 25.1L, Arterial Blood Partial Pressure O2 96.4, Arterial Blood HCO3 16.6*L, Arterial Blood Oxygen Saturation 97.6, Arterial Blood Base Excess -5.9L, Melvin Test Positive Height (Feet): 5 Height (Inches): 6.00 Weight (Pounds): 150 Sergey Rivera MD Jan 23, 2019 15:12
[2019-01-23] MEDS ORDERED: Potassium Phosphate 30 MM in NS 275 ML IV ONE (15:30)
--- NOTE | 2019-01-23 16:19 | NUR ---
NURSE NOTES: Dr. Pierre came and inserted hernández catheter 14Fr/10ml. Yellow color urine draining to urinary bag. Scant blood noted on meatal area. Will continue plan of care.
--- NOTE | 2019-01-23 18:00 | NUR ---
NURSE NOTES: Brooks patent and draining well with dark abhay color urine. VSS.
--- NOTE | 2019-01-23 18:15 | Consultation ---
DATE OF CONSULTATION: 01/23/2019 GASTROENTEROLOGY CONSULTATION REPORT CHIEF COMPLAINT: I was asked to see this patient by Dr. Boris Arevalo for evaluation of gastrointestinal bleeding. HISTORY OF PRESENT ILLNESS: The patient is a debilitated 63-year-old man, who is in the ICU with multiple medical problems. He was admitted with hypotension and respiratory distress. He has just been diagnosed with Clostridium difficile colitis and history of diarrhea and rectal tube and is being treated for that as well. This morning, the nurse aspirated about approximately 300 mL of what appeared to be coffee-ground material from the patient's gastrostomy tube. The patient was unable to provide any additional history. Most of the information is only available from the chart. The patient has a tracheostomy and gastrostomy and requires long-term around the clock care. He is nonverbal. PAST MEDICAL HISTORY: History of respiratory failure, status post tracheostomy, history of dysphagia status gastrostomy, history of hyponatremia, history of pneumonia, encephalopathy, renal failure, hypertension, decubitus ulcerations, cholelithiasis, and history of obstructive uropathy. FAMILY HISTORY: Unavailable. SOCIAL HISTORY: The patient is from a [facility] and requires [id number] care. There is no family at bedside. REVIEW OF SYSTEMS: Unobtainable. PHYSICAL EXAMINATION: GENERAL: Debilitated man, seen in the ICU with the nurse there by. HEENT: Normocephalic and atraumatic. Tracheostomy was in place. CHEST: Reveals coarse breath sounds. CARDIOVASCULAR: Revealed regular rate. ABDOMEN: Obese and soft with gastrostomy tube. EXTREMITIES: Revealed contracture deformities. LABORATORY DATA: Noted. ASSESSMENT: This patient has multiple medical problems and this morning he was found to have some coffee-ground drainage from his gastrostomy tube. However, his stools are normal brown color and they did not show melena. His hematocrit has not shown a significant drop compared to the prior measurements. He may require an endoscopy and would have to speak to the power of research attorney, but for the time being, he had lactic acidosis, abnormal liver tests, and significant leukocytosis, and needs to be optimized for the procedure. I would hold the feeding and continue antibiotics for the blood pressure support. The decision for endoscopy was made once the patient's parameters have been stabilized. Aim for hemoglobin greater than 7. RECOMMENDATIONS: 1. Hold tube feeding. 2. Proton pump inhibitor. 3. Elevate head of bed. 4. Serial CBC. 5. Follow laboratory parameters and exam. 6. Discussion with family. 7. Upper endoscopy this week. Thank you for asking me to participate in the care of this patient. Jimmy Santamaria M.D. DR: Jesus JOB#: [id number] CC: ANI
[2019-01-23] MEDS: Dyna-Hex 2% Top Sol 2oz TOPIC SCH (19:15)
--- NOTE | 2019-01-23 19:35 | NUR ---
HAND-OFF: Report given to GEOVANNA Lopez. Endorsed plan of care.
--- NOTE | 2019-01-23 19:36 | NUR ---
NURSE NOTES: Endorsement received from GEOVANNA Arnold. Opens eyes to light pain however, does not track. Non verbal. Withdraws to pain. Portex 7.0. AC 16 500 PEEP 5 30%. Right IJ TLC. On D5 NS 100ml/hr, and ongoing K phos bag 1 of 1. GT connected to low intermittent suction, noted with greenish output at the tubing. Brooks catheter connected to urimeter, secured with silk tape against the leg. With rectal tube draining per gravity. Bilateral upper and lower extremities contracted. Wound dressings dry and intact. Head of bed elevated. Bed locked and in low position. Bed alarm on. Call light within reach. On P200 mattress. On contact isolation for active C diff.
[2019-01-23] MEDS: Miralax 17gm pkt ORAL SCH (21:00)
--- NOTE | 2019-01-23 21:00 | NUR ---
NURSE NOTES: Vanco trough result still pending. Vancomycin not yet given at this time. Spoke with Pharmacist Carlie, as per her it's ok to give the due vancomycin per GT. Vancomycin given, intermittent suction turned off afterwards for 1 hour.
[2019-01-23] MEDS: Norepinephrine Bitartrate 8 MG in D5W 500ml 492 ML IV SCH (21:15)
[2019-01-23] MEDS: Vancomycin 1.25gm/NS Premix IVPB SCH (21:42)
--- NOTE | 2019-01-23 21:45 | Consultation ---
DATE OF CONSULTATION: 01/23/2019 CONSULTING PHYSICIAN: Jake Pierre M.D. REFERRING PHYSICIAN: Boris Arevalo M.D. REASON FOR CONSULTATION: Evaluation for difficult catheterization. HISTORY OF PRESENT ILLNESS: This is a 63-year-old male, resident of a alf, who was admitted because of altered mental status, and sepsis. He is currently in the intensive care unit. He has significant leukocytosis. He has been incontinent of urine, initial attempt to place a Brooks was unsuccessful. Urology evaluation requested. Most of the history was obtained from the chart. PAST MEDICAL HISTORY: Significant for history of COPD, diabetes, history of CVA, dementia. The patient is vent dependent. PAST SURGICAL HISTORY: He has had a trach and G-tube, other surgeries are unknown. MEDICATIONS: Current medication list in the hospital was reviewed. ALLERGIES: Multiple. Please refer to chart. SOCIAL HISTORY: Resident of a alf. REVIEW OF SYSTEMS: Unable to obtain. PHYSICAL EXAMINATION: GENERAL: An elderly male, trach, vent, nonverbal, contracted. VITAL SIGNS: Temperature is 99.2, blood pressure is 91/57, pulse 120, respirations 28. HEENT: Trach is in place. ABDOMEN: G-tube is in place. The patient is severely contracted. LABORATORY DATA: White count is 25.3, hemoglobin 11.7, and platelets are 224. His BUN is 29, creatinine 0.8, potassium 3.1. INR is 1.2. UA showed 2+ protein, 5 to 10 rbc's, 15-20 wbc's, moderate bacteria. Urine culture so far is pending. DIAGNOSTIC IMAGING STUDIES: The patient had a renal ultrasound, result is pending. He did have abdomen and pelvic CT scan back in 2017 and at that time there was mention of nonobstructive renal calculi. Procedure the bedside, I attempted to place a Brooks and there was resistance just proximal to the meatus and I believe he had a bad stricture. It was a tight stricture. I did pass a filiform and I was able to dilate the stricture with followers, but again it was very tight. I was not able to pass a 16-Mauritian Belpre tip catheter and the largest catheter I could pass was a 14-Mauritian and I was able to get into the bladder and it irrigated well. Urine was yellowish abhay. This was attached to the patient's leg. The patient did have some paraphimosis, which I also reduced. IMPRESSION: 1. Sepsis. 2. Incontinence. 3. Neurogenic bladder. 4. Proteinuria. 5. Hematuria. 6. Pyuria. 7. History of nephrolithiasis. 8. Urethral stricture. PLAN AND DISCUSSION: Again, the patient did have a severe tight distal urethral stricture which was dilated with filiform and followers. A A 14-Mauritian Brooks catheter has been placed. The catheter should remain indwelling. I have asked the nursing staff not to remove the catheter, which can be irrigated on a p.r.n. basis. He is to continue with antibiotics as ordered and will follow up on the results of the cultures and go from there. The patient is currently on Flomax also. Thank you for this consultation. Jake Pierre M.D. DR: Velasquez JOB#: [id number] CC: Boris Arevalo M.D.; Fax#: [phone] Ramses Rodriguez M.D. Jimmy Tang M.D. Sergey Rivera M.D.
--- NOTE | 2019-01-23 22:00 | Progress Note ---
DATE: 01/23/2019 SUBJECTIVE: The patient is awake, alert, afebrile, and hemodynamically improved. PHYSICAL EXAMINATION: VITAL SIGNS: Blood pressure is 93/68, pulse 130, respirations of 26, and temperature 97.2. HEENT: Eyes were normal. ENT, mucous membranes were moist and intact. NECK: Supple with no JVD without lymph nodes. Tracheostomy site is clean. LUNGS: Clear without rhonchi, rales, or wheezing. Secretions are small, thin, and hilton. HEART: Normal sounds with regular beats. There is no S3, S4, or pericardial rub. There is tachycardia at rest. Sinus tachycardia on monitor. ABDOMEN: Soft and nontender with normal bowel sounds. Gastrostomy site is clean. EXTREMITIES: Warm without cyanosis, clubbing, or edema. LABORATORY AND DIAGNOSTIC DATA: Hemoglobin is 11.7, hematocrit 35.3 with MCV of 89, WBC of 25.3, and platelets 224. His WBC was 30.7 yesterday. His BUN and creatinine are 29 and 0.8 respectively. His sodium is 132, potassium 3.1, chloride 102, CO2 19. His phosphorus is 1.6 and magnesium is 1.5. His alkaline phosphatase 222. Albumin is 1.3 and total protein is 5.9. Chest x-ray done today, results cardiomegaly, left pleural effusion. His lactic acid is 0.9, it was 3.9 yesterday. His troponin is undetected. His CRP is more than 70. ProBNP is 110. IMPRESSION: The patient improved since yesterday. In regard to his WBC, lactic acid, hemodynamics, the patient is now off pressor support. Repeat labs tests will be done in the morning. The patient has hypokalemia, hypophosphatemia, hypomagnesemia. All of them have been corrected by the manufacturing machine operator. Boris Arevalo M.D. DR: Day JOB#: [id number] CC:
--- NOTE | 2019-01-23 23:00 | NUR ---
NURSE NOTES: Oral care done. Patient afebrile. On GT connected to low intermittent suction.
[2019-01-24] VITALS (18 sets, daily range): BP systolic 93–118; BP diastolic 62–76
--- NOTE | 2019-01-24 01:00 | NUR ---
NURSE NOTES: Appears comfortable, no sign of pain. Maintains BP without any pressors.
[2019-01-24] MEDS: Albuterol ud Inhalation HHN SCH ×4 (01:22→19:00)
[2019-01-24] MEDS: Meropenem 1 GM in NS 55 ML IVPB SCH ×2 (02:30→17:30)
[2019-01-24] MEDS: D5NS 1,000 ML IV SCH ×2 (02:30→17:08)
--- NOTE | 2019-01-24 03:00 | NUR ---
NURSE NOTES: Patient asleep. Vital signs stable.
[2019-01-24 04:59] LABS: HEMATOCRIT 33.1 % (42.0-52.0); HEMOGLOBIN 10.9 G/DL (14.2-18.0); MEAN CORPUSCULAR VOLUME 88 FL (80-99); PLATELET COUNT 222 K/UL (150-450); RED BLOOD COUNT 3.75 M/UL (4.70-6.10); RED CELL DISTRIBUTION WIDTH 14.3 % (11.6-14.8)
--- NOTE | 2019-01-24 05:00 | NUR ---
NURSE NOTES: Bed bath, oral care, change of linens done.
[2019-01-24 05:11] LABS: WHITE BLOOD COUNT 31.8 K/UL (4.8-10.8)
[2019-01-24 05:29] LABS: ALANINE AMINOTRANSFERASE 33 U/L (12-78); ALBUMIN 1.1 G/DL (3.4-5.0); ALBUMIN/GLOBULIN RATIO 0.3 (1.0-2.7); ALKALINE PHOSPHATASE 241 U/L (46-116); ANION GAP 9 mmol/L (5-15); ASPARTATE AMINO TRANSFERASE 40 U/L (15-37); BILIRUBIN,TOTAL 0.5 MG/DL (0.2-1.0); BLOOD UREA NITROGEN 18 mg/dL (7-18); CALCIUM 7.7 MG/DL (8.5-10.1); CARBON DIOXIDE 20 MMOL/L (21-32); CHLORIDE 109 MMOL/L (98-107); CREATININE 0.7 MG/DL (0.55-1.30); PHOSPHORUS 1.6 MG/DL (2.5-4.9); POTASSIUM 2.8 MMOL/L (3.5-5.1); SODIUM 138 MMOL/L (136-145)
[2019-01-24] MEDS: NovoLOG Insulin Flexpen SUBQ SCH ×4 (05:59→20:33)
--- NOTE | 2019-01-24 06:36 | NUR ---
NURSE NOTES: Called Dr. Castillo for WBC of 31.8. Left a message, awaiting for return call.
--- NOTE | 2019-01-24 07:00 | NUR ---
RESPIRATORY NOTES: Received Patient on Vent settings ACVC RR 16, VT 500, Fio2 30% PEEP +5. Patient has Cuffed Portex 7 tracheostomy tube, secured with tracheostomy ties. Suctioned a small amount of dias, white, thin secretions. Patient lying on bed obtundent. Bilateral rhonchi heart throughout both lung donaldson. Vent plugged into red outlet. Alarms are on and audible. Will continue to monitor patient throughout the day.
--- NOTE | 2019-01-24 07:09 | NUR ---
HAND-OFF: Report given to GEOVANNA oRmeo.
--- NOTE | 2019-01-24 07:10 | NUR ---
NURSE NOTES: Late entry: PT and report received from GEOVANNA Lopez; PT received on trach to vent portex 7; ac 16; tv 500; peep 5; 30%; saturating at 100%; no S/S of respiratory distress noted; PT is obtunded, opens eyes no tracking during morning rounds; HR on monitor showed ST @ 113; PT NPO w/ intermittent suction; received with rectal tube and hernández intact and draining; PT has R-IJ TLC infusing D5 NS @ 100cc/hr; received without any pressors infusing. Reported from lab that PT blood culture showed gram(-) rods @ 01/23 and gram(+) cocci today. Will continue with plan of care for PT.
--- NOTE | 2019-01-24 07:30 | NUR ---
NURSE NOTES: Report received from GEOVANNA Khan. Opens eyes to light pain, does not track. Non verbal. Withdraws to pain. Portex 7.0. AC 16 500 PEEP 5 30%. Right IJ TLC. On D5 NS 50ml/hr. GT with tube feeding ongoing. Brooks catheter secured with silk tape against the leg. With rectal tube draining per gravity. Bilateral upper and lower extremities contracted. Wound dressings dry and intact. Head of bed elevated. Bed locked and in low position. Bed alarm on. Call light within reach. On P200 mattress. On contact isolation for active C .diff. Addendum: 01/24/19 at 2245 by CONCHA BURROWS RN RN NURSE NOTES: 1929 Report received from GEOVANNA Khan. Opens eyes to light pain, does not track. Non verbal. Withdraws to pain. Portex 7.0. AC 16 500 PEEP 5 30%. Right IJ TLC. On D5 NS 50ml/hr. GT with tube feeding ongoing. Brooks catheter secured with silk tape against the leg. With rectal tube draining per gravity. Bilateral upper and lower extremities contracted. Wound dressings dry and intact. Head of bed elevated. Bed locked and in low position. Bed alarm on. Call light within reach. On P200 mattress. On contact isolation for active C .diff.
[2019-01-24] MEDS: Pantoprazole Inj IVP SCH (08:26)
[2019-01-24] MEDS: Vancomycin oral 125mg/2.5ml GT SCH ×4 (08:26→20:33)
[2019-01-24] MEDS: Tamsulosin 0.4mg cap ORAL SCH ×2 (08:26→18:35)
[2019-01-24] MEDS: Vancomycin 1.25gm/NS Premix IVPB SCH (08:38)
[2019-01-24] MEDS ORDERED: Potassium Phosphate 30 MM in NS 275 ML IV ONE (09:30)
--- NOTE | 2019-01-24 09:50 | NUR ---
*-* NO INSURANCE INFORMATION IN THE BAR UNABLE TO SEND CLINICALS OR REVIEWS *-*
[2019-01-24] MEDS ORDERED: D5NS 1,000 ML IV SCH (10:00)
--- NOTE | 2019-01-24 10:30 | Urology Progress Note ---
Assessment/Plan Assessment/Plan: 1. Sepsis. 2. Incontinence. 3. Neurogenic bladder. 4. Proteinuria. 5. Hematuria. 6. Pyuria. 7. History of nephrolithiasis. 8. Urethral stricture. maintain hernández, do not remove hand irrigated and do PRN f/u on cx's abx as ordered Subjective Allergies: Coded Allergies: OXYTETRACYCLINE (Unverified Allergy, Unknown, 09/05/13) PENICILLINS (Unverified Allergy, Unknown, 06/11/17) Tolerated one dose of Cefepime 06/07/17 Tolerated Cefdinir 06/10/17 Uncoded Allergies: PLASTIC TAPE (Allergy, Mild, ITCHINESS, 08/08/15) MEDICAL TAPE (Allergy, Unknown, 12/10/16) Subjective all noted Objective Last 24 Hour Vital Signs Date Time Temp Pulse Resp B/P (MAP) Pulse Ox O2 Delivery O2 Flow Rate FiO2 01/24/19 08:00 112 20 93/68 (76) 100 01/24/19 08:00 30 01/24/19 07:09 119 35 30 01/24/19 07:00 98.3 113 21 96/70 (79) 100 01/24/19 06:00 114 23 102/72 (82) 100 01/24/19 05:06 115 29 30 01/24/19 05:00 116 23 100/65 (77) 100 01/24/19 04:00 Mechanical Ventilator 01/24/19 04:00 119 01/24/19 04:00 98.8 122 28 107/62 (77) 100 01/24/19 04:00 30 01/24/19 03:01 121 24 30 01/24/19 03:00 120 24 103/75 (84) 99 01/24/19 02:00 121 21 96/68 (77) 99 01/24/19 01:31 121 24 100 Mechanical Ventilator 30 01/24/19 01:21 122 29 100 Mechanical Ventilator 30 122 29 30 01/24/19 01:00 122 24 93/72 (79) 99 01/24/19 00:00 Mechanical Ventilator 01/24/19 00:00 30 01/24/19 00:00 98.7 124 23 103/69 (80) 100 01/24/19 00:00 123 01/23/19 23:07 125 26 30 01/23/19 23:00 126 21 105/70 (82) 100 01/23/19 22:00 127 24 97/73 (81) 99 01/23/19 21:15 106/76 01/23/19 21:08 127 31 30 01/23/19 21:00 128 22 106/76 (86) 100 01/23/19 20:00 127 24 99/82 (88) 100 01/23/19 20:00 30 01/23/19 20:00 127 01/23/19 20:00 Mechanical Ventilator 01/23/19 19:35 126 26 100 Mechanical Ventilator 30 01/23/19 19:25 125 31 100 Mechanical Ventilator 30 125 31 30 01/23/19 19:00 98.8 127 23 103/65 (78) 99 01/23/19 18:30 126 23 96/73 (81) 99 01/23/19 18:00 125 23 105/67 (80) 100 01/23/19 17:30 125 22 90/63 (72) 100 01/23/19 17:00 125 22 93/70 (78) 100 01/23/19 16:46 126 26 30 01/23/19 16:30 126 22 94/69 (77) 100 01/23/19 16:00 128 23 110/71 (84) 100 01/23/19 16:00 30 01/23/19 16:00 127 01/23/19 16:00 Mechanical Ventilator 01/23/19 15:30 127 25 111/76 (88) 100 01/23/19 15:00 128 28 30 01/23/19 15:00 128 25 99/67 (78) 100 01/23/19 14:30 127 27 101/67 (78) 100 01/23/19 14:00 128 26 98/64 (75) 100 01/23/19 13:30 131 24 91/57 (68) 100 01/23/19 13:07 130 26 100 Mechanical Ventilator 30 128 29 30 01/23/19 13:00 129 26 103/68 (80) 100 01/23/19 12:30 130 28 95/60 (72) 100 01/23/19 12:00 30 01/23/19 12:00 Mechanical Ventilator 01/23/19 12:00 130 01/23/19 12:00 99.2 130 24 89/68 (75) 100 01/23/19 11:30 132 24 100/65 (77) 100 01/23/19 11:00 131 26 105/68 (80) 100 01/23/19 11:00 105/68 01/23/19 10:57 131 26 30 Intake and Output 01/23/19 01/24/19 19:00 07:00 Intake Total 1991.200 ml 1355 ml Output Total 990 ml 745 ml Balance 1002.200 ml 610 ml IV Total 1991.200 ml 1355 ml Output Urine Total 840 ml 470 ml Stool Total 150 ml 200 ml Gastric Drainage Total 75 ml Microbiology Date/Time Source Procedure Growth Status 01/22/19 02:10 Blood Blood Culture - Preliminary Gram Negative Bacillus 1 Resulted 01/22/19 02:10 Nasal Nares MRSA Culture - Final NO METHICILLIN RESISTANT STAPH AUREUS... Complete 01/22/19 17:23 Stool Clostridium difficile Toxin Assay - Final Complete 01/22/19 04:45 Urine,Clean Catch Urine Culture - Preliminary Streptococcus Species Resulted 01/22/19 02:10 Rectum VRE Culture - Final Enterococcus Faecalis - Vre Complete Current Medications Medications (Trade) Dose Ordered Sig/Sima Route PRN Reason Start Time Stop Time Status Last Admin Dose Admin Acetaminophen (Tylenol) 650 mg Q4H PRN GT Mild Pain/Temp > 100.5 01/22/19 06:15 02/21/19 06:14 Acetaminophen/ Hydrocodone Bitart ([place] 10/325) 1 tab Q4H PRN ORAL For Pain 01/22/19 06:15 01/29/19 06:14 Albuterol Sulfate (Proventil) 2.5 mg Q6HRT HHN 01/22/19 07:00 01/27/19 06:59 01/24/19 01:22 Chlorhexidine Gluconate (Paulina-Hex 2%) 1 applic DAILY@2000 TOPIC 01/22/19 20:00 02/21/19 19:59 01/23/19 19:15 Dextrose (Dextrose 50%) 25 ml Q30M PRN IV Hypoglycemia 01/22/19 06:30 02/21/19 06:29 Dextrose (Dextrose 50%) 50 ml Q30M PRN IV Hypoglycemia 01/22/19 06:30 02/21/19 06:29 Dextrose/Sodium Chloride 1,000 ml @ 50 mls/hr Q20H IV 01/24/19 10:00 02/21/19 09:59 01/24/19 10:10 Docusate Sodium (Colace) 100 mg DAILY PRN NG constipation 01/22/19 06:15 02/21/19 06:14 Insulin Aspart (NovoLOG) BEFORE MEALS AND HS SUBQ 01/22/19 07:30 02/21/19 07:29 01/24/19 05:59 Meropenem 1 gm/ Sodium Chloride 55 ml @ 110 mls/hr Q12HR@0300,1500 IVPB 01/22/19 15:00 01/27/19 14:59 01/24/19 02:30 Midodrine (Pro-Amatine) 2.5 mg THREE TIMES A DAY ORAL 01/22/19 13:00 02/21/19 12:59 01/24/19 08:27 Norepinephrine Bitartrate 8 mg/ Dextrose 500 ml @ 0 mls/hr Q24H IV 01/22/19 21:30 02/21/19 21:29 01/22/19 20:58 Pantoprazole (Protonix) 40 mg EVERY 12 HOURS IVP 01/22/19 09:00 02/21/19 08:59 01/24/19 08:26 Polyethylene Glycol (Miralax) 17 gm BEDTIME ORAL 01/22/19 21:00 02/21/19 20:59 Potassium Phosphate 30 mm/ Sodium Chloride 285 ml @ 47.5 mls/hr ONCE ONCE IV 01/24/19 09:30 01/24/19 15:29 01/24/19 09:31 Potassium Chloride 100 ml @ 100 mls/hr Q1HR IVPB 01/24/19 08:00 01/24/19 13:59 01/24/19 09:32 Tamsulosin HCl (Flomax) 0.4 mg BID ORAL 01/22/19 10:00 02/21/19 09:59 01/24/19 08:26 Vancomycin HCl (Firvanq) 125 mg FOUR TIMES A DAY GT 01/23/19 13:00 02/02/19 09:01 01/24/19 08:26 Vancomycin HCl (Vanco rx to dose) 1 ea DAILY PRN MISC Per rx protocol 01/22/19 06:15 02/21/19 06:14 Vancomycin/Sodium Chloride 275 ml @ 183.333 mls/hr Q12HR IVPB 01/23/19 22:00 01/28/19 21:59 01/24/19 08:38 Laboratory Tests 01/23/19 19:25: Vancomycin Level Trough 10.5 01/24/19 04:00: White Blood Count 31.8*H, Red Blood Count 3.75L, Hemoglobin 10.9L, Hematocrit 33.1L, Mean Corpuscular Volume 88, Mean Corpuscular Hemoglobin 29.0, Mean Corpuscular Hemoglobin Concent 32.9, Red Cell Distribution Width 14.3, Platelet Count 222, Mean Platelet Volume 8.0, Neutrophils (%) (Auto) , Lymphocytes (%) ( Auto) , Monocytes (%) (Auto) , Eosinophils (%) (Auto) , Basophils (%) (Auto) , Differential Total Cells Counted 100, Neutrophils % (Manual) 88H, Lymphocytes % (Manual) 5L, Monocytes % (Manual) 6, Eosinophils % (Manual) 1, Basophils % ( Manual) 0, Band Neutrophils 0, Platelet Estimate Adequate, Platelet Morphology Normal, Sodium Level 138, Potassium Level 2.8L, Chloride Level 109H, Carbon Dioxide Level 20L, Anion Gap 9, Blood Urea Nitrogen 18, Creatinine 0.7, Estimat Glomerular Filtration Rate > 60, Glucose Level 225H, Calcium Level 7.7L, Phosphorus Level 1.6L, Magnesium Level 2.1, Total Bilirubin 0.5, Aspartate Amino Transf (AST/SGOT) 40H, Alanine Aminotransferase (ALT/SGPT) 33, Alkaline Phosphatase 241H, Total Protein 5.2L, Albumin 1.1L, Globulin 4.1, Albumin/ Globulin Ratio 0.3L Height (Feet): 5 Height (Inches): 6.00 Weight (Pounds): 150 Objective exam stable hernández indwelling, urine yellow/abhay no active bleeding at meatus renal u/s (01/23) noted Jake Pierre MD Jan 24, 2019 10:30
--- NOTE | 2019-01-24 10:30 | NUR ---
NURSE NOTES: Late entry: PT wound care done with wound care nurse, MD Clyde made rounds, updates given in regards to PT, feeding orders to be placed by .
--- NOTE | 2019-01-24 10:31 | Pulmonolgy Critical Care Note ---
Critical Care - Asmt/Plan Problems: (1) Septic shock (2) HCAP (healthcare-associated pneumonia) (3) Chronic respiratory failure (4) Ventilator dependence (5) Vegetative state (6) HARDEEP (acute kidney injury) (7) History of CVA (cerebrovascular accident) (8) Feeding by G-tube (9) HTN (hypertension) (10) Cerebral vascular disease Respiratory: monitor respiratory rate, adjust FIO2, CXR Cardiac: continue pressors, continue to monitor HR/BP Renal: F/U I&O, keep IV fluid, check electrolytes, other - Phos and K supplement Infectious Disease: check cultures Gastrointestinal: continue feedings/current rate Endocrine: monitor blood sugar Hematologic: monitor H/H, transfuse if hgb<8.5 Neurologic: PRN Morphine, keep patient comfortable Affect: PRN ativan Prophylaxis: Protonix Notes Reviewed: renal Discussed with: consultants Critical Care - Objective Last 24 Hour Vital Signs Date Time Temp Pulse Resp B/P (MAP) Pulse Ox O2 Delivery O2 Flow Rate FiO2 01/24/19 08:00 112 20 93/68 (76) 100 01/24/19 08:00 30 01/24/19 07:09 119 35 30 01/24/19 07:00 98.3 113 21 96/70 (79) 100 01/24/19 06:00 114 23 102/72 (82) 100 01/24/19 05:06 115 29 30 01/24/19 05:00 116 23 100/65 (77) 100 01/24/19 04:00 Mechanical Ventilator 01/24/19 04:00 119 01/24/19 04:00 98.8 122 28 107/62 (77) 100 01/24/19 04:00 30 01/24/19 03:01 121 24 30 01/24/19 03:00 120 24 103/75 (84) 99 01/24/19 02:00 121 21 96/68 (77) 99 01/24/19 01:31 121 24 100 Mechanical Ventilator 30 01/24/19 01:21 122 29 100 Mechanical Ventilator 30 122 29 30 01/24/19 01:00 122 24 93/72 (79) 99 01/24/19 00:00 Mechanical Ventilator 01/24/19 00:00 30 01/24/19 00:00 98.7 124 23 103/69 (80) 100 01/24/19 00:00 123 01/23/19 23:07 125 26 30 01/23/19 23:00 126 21 105/70 (82) 100 01/23/19 22:00 127 24 97/73 (81) 99 01/23/19 21:15 106/76 01/23/19 21:08 127 31 30 01/23/19 21:00 128 22 106/76 (86) 100 01/23/19 20:00 127 24 99/82 (88) 100 01/23/19 20:00 30 01/23/19 20:00 127 01/23/19 20:00 Mechanical Ventilator 01/23/19 19:35 126 26 100 Mechanical Ventilator 30 01/23/19 19:25 125 31 100 Mechanical Ventilator 30 125 31 30 01/23/19 19:00 98.8 127 23 103/65 (78) 99 01/23/19 18:30 126 23 96/73 (81) 99 01/23/19 18:00 125 23 105/67 (80) 100 01/23/19 17:30 125 22 90/63 (72) 100 01/23/19 17:00 125 22 93/70 (78) 100 01/23/19 16:46 126 26 30 01/23/19 16:30 126 22 94/69 (77) 100 01/23/19 16:00 128 23 110/71 (84) 100 01/23/19 16:00 30 01/23/19 16:00 127 01/23/19 16:00 Mechanical Ventilator 01/23/19 15:30 127 25 111/76 (88) 100 01/23/19 15:00 128 28 30 01/23/19 15:00 128 25 99/67 (78) 100 01/23/19 14:30 127 27 101/67 (78) 100 01/23/19 14:00 128 26 98/64 (75) 100 01/23/19 13:30 131 24 91/57 (68) 100 01/23/19 13:07 130 26 100 Mechanical Ventilator 30 128 29 30 01/23/19 13:00 129 26 103/68 (80) 100 01/23/19 12:30 130 28 95/60 (72) 100 01/23/19 12:00 30 01/23/19 12:00 Mechanical Ventilator 01/23/19 12:00 130 01/23/19 12:00 99.2 130 24 89/68 (75) 100 01/23/19 11:30 132 24 100/65 (77) 100 01/23/19 11:00 131 26 105/68 (80) 100 01/23/19 11:00 105/68 01/23/19 10:57 131 26 30 Status: obtunded Condition: critical, grave HEENT: atraumatic Neck: full ROM Lungs: rales, rhonchi Heart: HR/BP stable Abdomen: soft, active bowel sounds Extremities: no C/C/E Decubiti: location Micro: Microbiology Date/Time Source Procedure Growth Status 01/22/19 02:10 Blood Blood Culture - Preliminary Gram Negative Bacillus 1 Resulted 01/22/19 02:00 Blood Blood Culture - Preliminary Gram Negative Bacillus 1 Resulted 01/22/19 02:10 Nasal Nares MRSA Culture - Final NO METHICILLIN RESISTANT STAPH AUREUS... Complete 01/22/19 17:23 Stool Clostridium difficile Toxin Assay - Final Complete 01/22/19 04:45 Urine,Clean Catch Urine Culture - Preliminary Streptococcus Species Resulted 01/22/19 02:10 Rectum VRE Culture - Final Enterococcus Faecalis - Vre Complete Accucheck: 213 Critical Care - Subjective ROS Limited/Unobtainable: Yes Condition: critical EKG Rhythm: Sinus Rhythm FI02: 30 Vent Support Breath Rate: 16 Vent Support Mode: AC Vent Tidal Volume: 500 Sputum Amount: Small PEEP: 5.0 PIP: 20 I&O: Intake and Output 01/23/19 01/24/19 19:00 07:00 Intake Total 1992.200 ml 1355 ml Output Total 990 ml 745 ml Balance 1002.200 ml 610 ml IV Total 1992.200 ml 1355 ml Output Urine Total 840 ml 470 ml Stool Total 150 ml 200 ml Gastric Drainage Total 75 ml CXR: no change Labs: Laboratory Tests Test 01/23/19 19:25 01/24/19 04:00 Vancomycin Level Trough 10.5 ug/mL (5.0-12.0) White Blood Count 31.8 K/UL (4.8-10.8) *H Red Blood Count 3.75 M/UL (4.70-6.10) L Hemoglobin 10.9 G/DL (14.2-18.0) L Hematocrit 33.1 % (42.0-52.0) L Mean Corpuscular Volume 88 FL (80-99) Mean Corpuscular Hemoglobin 29.0 PG (27.0-31.0) Mean Corpuscular Hemoglobin Concent 32.9 G/DL (32.0-36.0) Red Cell Distribution Width 14.3 % (11.6-14.8) Platelet Count 222 K/UL (150-450) Mean Platelet Volume 8.0 FL (6.5-10.1) Neutrophils (%) (Auto) % (45.0-75.0) Lymphocytes (%) (Auto) % (20.0-45.0) Monocytes (%) (Auto) % (1.0-10.0) Eosinophils (%) (Auto) % (0.0-3.0) Basophils (%) (Auto) % (0.0-2.0) Differential Total Cells Counted 100 Neutrophils % (Manual) 88 % (45-75) H Lymphocytes % (Manual) 5 % (20-45) L Monocytes % (Manual) 6 % (1-10) Eosinophils % (Manual) 1 % (0-3) Basophils % (Manual) 0 % (0-2) Band Neutrophils 0 % (0-8) Platelet Estimate Adequate Platelet Morphology Normal Sodium Level 138 MMOL/L (136-145) Potassium Level 2.8 MMOL/L (3.5-5.1) L Chloride Level 109 MMOL/L (98-107) H Carbon Dioxide Level 20 MMOL/L (21-32) L Anion Gap 9 mmol/L (5-15) Blood Urea Nitrogen 18 mg/dL (7-18) Creatinine 0.7 MG/DL (0.55-1.30) Estimat Glomerular Filtration Rate > 60 mL/min (>60) Glucose Level 225 MG/DL (74-106) H Calcium Level 7.7 MG/DL (8.5-10.1) L Phosphorus Level 1.6 MG/DL (2.5-4.9) L Magnesium Level 2.1 MG/DL (1.8-2.4) Total Bilirubin 0.5 MG/DL (0.2-1.0) Aspartate Amino Transf (AST/SGOT) 40 U/L (15-37) H Alanine Aminotransferase (ALT/SGPT) 33 U/L (12-78) Alkaline Phosphatase 241 U/L (46-116) H Total Protein 5.2 G/DL (6.4-8.2) L Albumin 1.1 G/DL (3.4-5.0) L Globulin 4.1 g/dL Albumin/Globulin Ratio 0.3 (1.0-2.7) L Sagar Rudd MD Jan 24, 2019 10:31
--- NOTE | 2019-01-24 11:11 | Surgery Progress Note ---
Surgery Progress Note Subjective Additional Comments Patient seen and examined bedside. Has been off pressors for 24 hours. Leukocytosis worsening. Lactic acidosis is resolved. Electrolytes need to be replaced. Objective Last 24 Hour Vital Signs Date Time Temp Pulse Resp B/P (MAP) Pulse Ox O2 Delivery O2 Flow Rate FiO2 01/24/19 11:00 116 25 93/67 (76) 100 01/24/19 10:47 116 30 30 01/24/19 10:00 115 21 108/69 (82) 100 01/24/19 09:29 117 26 30 01/24/19 09:00 113 21 96/71 (79) 100 01/24/19 08:00 112 20 93/68 (76) 100 01/24/19 08:00 Mechanical Ventilator 01/24/19 08:00 30 01/24/19 07:09 119 35 30 01/24/19 07:00 98.3 113 21 96/70 (79) 100 01/24/19 06:00 114 23 102/72 (82) 100 01/24/19 05:06 115 29 30 01/24/19 05:00 116 23 100/65 (77) 100 01/24/19 04:00 Mechanical Ventilator 01/24/19 04:00 119 01/24/19 04:00 98.8 122 28 107/62 (77) 100 01/24/19 04:00 30 01/24/19 03:01 121 24 30 01/24/19 03:00 120 24 103/75 (84) 99 01/24/19 02:00 121 21 96/68 (77) 99 01/24/19 01:31 121 24 100 Mechanical Ventilator 30 01/24/19 01:21 122 29 100 Mechanical Ventilator 30 122 29 30 01/24/19 01:00 122 24 93/72 (79) 99 01/24/19 00:00 Mechanical Ventilator 01/24/19 00:00 30 01/24/19 00:00 98.7 124 23 103/69 (80) 100 01/24/19 00:00 123 01/23/19 23:07 125 26 30 01/23/19 23:00 126 21 105/70 (82) 100 01/23/19 22:00 127 24 97/73 (81) 99 01/23/19 21:15 106/76 01/23/19 21:08 127 31 30 01/23/19 21:00 128 22 106/76 (86) 100 01/23/19 20:00 127 24 99/82 (88) 100 01/23/19 20:00 30 01/23/19 20:00 127 01/23/19 20:00 Mechanical Ventilator 01/23/19 19:35 126 26 100 Mechanical Ventilator 30 01/23/19 19:25 125 31 100 Mechanical Ventilator 30 125 31 30 01/23/19 19:00 98.8 127 23 103/65 (78) 99 01/23/19 18:30 126 23 96/73 (81) 99 01/23/19 18:00 125 23 105/67 (80) 100 01/23/19 17:30 125 22 90/63 (72) 100 01/23/19 17:00 125 22 93/70 (78) 100 01/23/19 16:46 126 26 30 01/23/19 16:30 126 22 94/69 (77) 100 01/23/19 16:00 128 23 110/71 (84) 100 01/23/19 16:00 30 01/23/19 16:00 127 01/23/19 16:00 Mechanical Ventilator 01/23/19 15:30 127 25 111/76 (88) 100 01/23/19 15:00 128 28 30 01/23/19 15:00 128 25 99/67 (78) 100 01/23/19 14:30 127 27 101/67 (78) 100 01/23/19 14:00 128 26 98/64 (75) 100 01/23/19 13:30 131 24 91/57 (68) 100 01/23/19 13:07 130 26 100 Mechanical Ventilator 30 128 29 30 01/23/19 13:00 129 26 103/68 (80) 100 01/23/19 12:30 130 28 95/60 (72) 100 01/23/19 12:00 30 01/23/19 12:00 Mechanical Ventilator 01/23/19 12:00 130 01/23/19 12:00 99.2 130 24 89/68 (75) 100 01/23/19 11:30 132 24 100/65 (77) 100 I&O Intake and Output 01/23/19 01/24/19 19:00 07:00 Intake Total 1992.200 ml 1355 ml Output Total 990 ml 745 ml Balance 1002.200 ml 610 ml IV Total 1992.200 ml 1355 ml Output Urine Total 840 ml 470 ml Stool Total 150 ml 200 ml Gastric Drainage Total 75 ml Dressing: saturated Wound: other Drains: other Cardiovascular: RSR Respiratory: decreased breath sounds Abdomen: soft, present bowel sounds, non-distended Extremities: no cyanosis, other Laboratory Tests Test 01/23/19 19:25 01/24/19 04:00 Vancomycin Level Trough 10.5 ug/mL (5.0-12.0) White Blood Count 31.8 K/UL (4.8-10.8) *H Red Blood Count 3.75 M/UL (4.70-6.10) L Hemoglobin 10.9 G/DL (14.2-18.0) L Hematocrit 33.1 % (42.0-52.0) L Mean Corpuscular Volume 88 FL (80-99) Mean Corpuscular Hemoglobin 29.0 PG (27.0-31.0) Mean Corpuscular Hemoglobin Concent 32.9 G/DL (32.0-36.0) Red Cell Distribution Width 14.3 % (11.6-14.8) Platelet Count 222 K/UL (150-450) Mean Platelet Volume 8.0 FL (6.5-10.1) Neutrophils (%) (Auto) % (45.0-75.0) Lymphocytes (%) (Auto) % (20.0-45.0) Monocytes (%) (Auto) % (1.0-10.0) Eosinophils (%) (Auto) % (0.0-3.0) Basophils (%) (Auto) % (0.0-2.0) Differential Total Cells Counted 100 Neutrophils % (Manual) 88 % (45-75) H Lymphocytes % (Manual) 5 % (20-45) L Monocytes % (Manual) 6 % (1-10) Eosinophils % (Manual) 1 % (0-3) Basophils % (Manual) 0 % (0-2) Band Neutrophils 0 % (0-8) Platelet Estimate Adequate Platelet Morphology Normal Sodium Level 138 MMOL/L (136-145) Potassium Level 2.8 MMOL/L (3.5-5.1) L Chloride Level 109 MMOL/L (98-107) H Carbon Dioxide Level 20 MMOL/L (21-32) L Anion Gap 9 mmol/L (5-15) Blood Urea Nitrogen 18 mg/dL (7-18) Creatinine 0.7 MG/DL (0.55-1.30) Estimat Glomerular Filtration Rate > 60 mL/min (>60) Glucose Level 225 MG/DL (74-106) H Calcium Level 7.7 MG/DL (8.5-10.1) L Phosphorus Level 1.6 MG/DL (2.5-4.9) L Magnesium Level 2.1 MG/DL (1.8-2.4) Total Bilirubin 0.5 MG/DL (0.2-1.0) Aspartate Amino Transf (AST/SGOT) 40 U/L (15-37) H Alanine Aminotransferase (ALT/SGPT) 33 U/L (12-78) Alkaline Phosphatase 241 U/L (46-116) H Total Protein 5.2 G/DL (6.4-8.2) L Albumin 1.1 G/DL (3.4-5.0) L Globulin 4.1 g/dL Albumin/Globulin Ratio 0.3 (1.0-2.7) L Plan Problems: (1) Decubitus skin ulcer Assessment & Plan: Patient presented with multiple decubitus skin ulcers requiring care and management last was admitted in 04/2018 and DTI but no open sacral wounds 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 no signs of active infection, granulation tissue, no necrotic tissue, no drainage. periwound intact with some maceration right great toe deep ulcer with necrotic center and exposed, no drainage, no signs of active infection DTI to medical aspect for 1st metatarsal head multiple scattered <1-2cm areas of partial thickness skin abrasions noted on legs no signs of active infection from wounds which are seemingly chronic. Treatment Plan Wash sacral and buttock wounds daily with NS, apply therahoney to wound bed and gauze, apply foam dressing. change daily and prn saturation Monitor for incontinence and change as per unit protocol Betadine great toe ulceration and apply foam dressing change q3 days apply skin protectant and foam dressings to skin abrasions off load heels with pillows turn every two hours air soft mattress to be ordered nutritional optimization. nutrition consult placed (2) Septic shock Assessment & Plan: Leukocytosis Lactic acidosis resolved off pressors on IV fluids Start tube feeds needs nutritional supplementation Rx as written ICU care and management will follow with recs thank you (3) Feeding by G-tube Assessment & Plan: DAILY ESTIMATED NEEDS: Needs based on Critical care, wound 68kg 22-30 kcals/kg 5222-5593 total kcals 1.25-2 g protein/kg 85-136 g total protein 25-30 mL/kg 2556-7335 total fluid mLs NUTRITION DIAGNOSIS: 1) Swallowing difficulty R/T respiratory status as evidenced by pt vent dep via trach, PEG dep, on TF. 2) Increased kcal/prot needs R/T wound healing as evidenced by pt admitted w/ multiple wounds, including open sacral wound, eval pending. ENTERAL NUTRITION RECOMMENDATIONS: Vital AF 1.2 @55ml x24 hrs to provide 1320ml, 1584kcal, 99g prot, 1071ml free H20 * As medically appropriate w/ hemodynamic stability, rec elemental formula of Vital for GI tolerance. * Initiate VITAL 1.2 @ 15ml/hr x 6 hrs, advance 10ml q 4-6 hrs as tolerated to goal rate. * HOB >30 degrees/ water flushes per MD ADDITIONAL RECOMMENDATIONS: 1) Maintain calibrated bed scale wts 2) Wound healing: add Darryl 1pkt BID w/ TF order Add Vit C 250mg daily (f/up w/ WC eval) 3) F/up w/ H&P 4) Lytes daily, replete as needed (4) Vegetative state Jimmy Tang Jan 24, 2019 11:11
--- NOTE | 2019-01-24 12:17 | NUR ---
NURSE NOTES: Feeding started per MD Clyde order, GISELLA [place] made aware, Novolog given as prescribed; PT VS stable; no S/S of respiratory distress. Will continue to monitor.
--- NOTE | 2019-01-24 12:59 | NUR ---
NURSE NOTES: MD Blaire made rounds, made aware and reported that PT is too contracted to get venous duplex done, but was reported that in August 2017, results were negative and PT was not as contracted. MD Serafin made rounds, informed of updated blood culture results. CRYSTAL Evans made rounds, informed of PT feeding status, abnormal labs, informed him that electrolytes are being replaced per MD Nicole.
[2019-01-24] MEDS ORDERED: DAPTOmycin 500 MG in NS 55 ML IV ONE (13:00)
--- NOTE | 2019-01-24 13:05 | GI Progress Note ---
Assessment/Plan Problems: (1) Clostridium difficile diarrhea ICD Codes: A04.72 - Enterocolitis due to Clostridium difficile, not specified as recurrent SNOMED: 8108472021174 (2) Severe sepsis ICD Codes: A41.9 - Sepsis, unspecified organism; R65.20 - Severe sepsis without septic shock SNOMED: 40744924 (3) Feeding by G-tube ICD Codes: Z93.1 - Feeding by G-tube SNOMED: 643123770 (4) Diarrhea ICD Codes: R19.7 - Diarrhea, unspecified SNOMED: 15970643 (5) Upper GI bleed ICD Codes: K92.2 - Gastrointestinal hemorrhage, unspecified SNOMED: 62339210 Status: unchanged Status Narrative Discussed with Dr. Rosas. Assessment/Plan No plans for GI procedures at this time given sepsis. Monitor H&H, PRN transfusions Occult blood to rule out any GI bleed Hold PPI given C. difficile H2B Antibiotics per infectious diseases for C. difficile IV hydration plus electrolyte correction Start feeding at low rate, and advance to goal Follow labs The patient was seen and examined at bedside and all new and available data was reviewed in the patients chart. I agree with the above findings, impression and plan. (Patient seen earlier today. Signature stamp does not reflect patient encounter time.). - Gaurav Rosas MD Subjective Subjective limited Objective Last 24 Hour Vital Signs Date Time Temp Pulse Resp B/P (MAP) Pulse Ox O2 Delivery O2 Flow Rate FiO2 01/24/19 12:00 113 01/24/19 12:00 30 01/24/19 12:00 97.1 112 21 98/66 (77) 100 01/24/19 12:00 Mechanical Ventilator 01/24/19 11:00 116 25 93/67 (76) 100 01/24/19 10:47 116 30 30 01/24/19 10:00 115 21 108/69 (82) 100 01/24/19 09:29 117 26 30 01/24/19 09:00 113 21 96/71 (79) 100 01/24/19 08:00 112 20 93/68 (76) 100 01/24/19 08:00 Mechanical Ventilator 01/24/19 08:00 116 01/24/19 08:00 30 01/24/19 07:09 119 35 30 01/24/19 07:00 98.3 113 21 96/70 (79) 100 01/24/19 06:00 114 23 102/72 (82) 100 01/24/19 05:06 115 29 30 01/24/19 05:00 116 23 100/65 (77) 100 01/24/19 04:00 Mechanical Ventilator 01/24/19 04:00 119 01/24/19 04:00 98.8 122 28 107/62 (77) 100 01/24/19 04:00 30 01/24/19 03:01 121 24 30 01/24/19 03:00 120 24 103/75 (84) 99 01/24/19 02:00 121 21 96/68 (77) 99 01/24/19 01:31 121 24 100 Mechanical Ventilator 30 01/24/19 01:21 122 29 100 Mechanical Ventilator 30 122 29 30 01/24/19 01:00 122 24 93/72 (79) 99 01/24/19 00:00 Mechanical Ventilator 01/24/19 00:00 30 01/24/19 00:00 98.7 124 23 103/69 (80) 100 01/24/19 00:00 123 01/23/19 23:07 125 26 30 01/23/19 23:00 126 21 105/70 (82) 100 01/23/19 22:00 127 24 97/73 (81) 99 01/23/19 21:15 106/76 01/23/19 21:08 127 31 30 01/23/19 21:00 128 22 106/76 (86) 100 01/23/19 20:00 127 24 99/82 (88) 100 01/23/19 20:00 30 01/23/19 20:00 127 01/23/19 20:00 Mechanical Ventilator 01/23/19 19:35 126 26 100 Mechanical Ventilator 30 01/23/19 19:25 125 31 100 Mechanical Ventilator 30 125 31 30 01/23/19 19:00 98.8 127 23 103/65 (78) 99 01/23/19 18:30 126 23 96/73 (81) 99 01/23/19 18:00 125 23 105/67 (80) 100 01/23/19 17:30 125 22 90/63 (72) 100 01/23/19 17:00 125 22 93/70 (78) 100 11/3/19 16:46 126 26 30 01/23/19 16:30 126 22 94/69 (77) 100 01/23/19 16:00 128 23 110/71 (84) 100 01/23/19 16:00 30 01/23/19 16:00 127 01/23/19 16:00 Mechanical Ventilator 01/23/19 15:30 127 25 111/76 (88) 100 01/23/19 15:00 128 28 30 01/23/19 15:00 128 25 99/67 (78) 100 01/23/19 14:30 127 27 101/67 (78) 100 01/23/19 14:00 128 26 98/64 (75) 100 01/23/19 13:30 131 24 91/57 (68) 100 01/23/19 13:07 130 26 100 Mechanical Ventilator 30 128 29 30 Intake and Output 01/23/19 01/24/19 19:00 07:00 Intake Total 1992.200 ml 1355 ml Output Total 990 ml 745 ml Balance 1002.200 ml 610 ml IV Total 1991.200 ml 1355 ml Output Urine Total 840 ml 470 ml Stool Total 150 ml 200 ml Gastric Drainage Total 75 ml Laboratory Tests Test 01/23/19 19:25 01/24/19 04:00 Vancomycin Level Trough 10.5 ug/mL (5.0-12.0) White Blood Count 31.8 K/UL (4.8-10.8) *H Red Blood Count 3.75 M/UL (4.70-6.10) L Hemoglobin 10.9 G/DL (14.2-18.0) L Hematocrit 33.1 % (42.0-52.0) L Mean Corpuscular Volume 88 FL (80-99) Mean Corpuscular Hemoglobin 29.0 PG (27.0-31.0) Mean Corpuscular Hemoglobin Concent 32.9 G/DL (32.0-36.0) Red Cell Distribution Width 14.3 % (11.6-14.8) Platelet Count 222 K/UL (150-450) Mean Platelet Volume 8.0 FL (6.5-10.1) Neutrophils (%) (Auto) % (45.0-75.0) Lymphocytes (%) (Auto) % (20.0-45.0) Monocytes (%) (Auto) % (1.0-10.0) Eosinophils (%) (Auto) % (0.0-3.0) Basophils (%) (Auto) % (0.0-2.0) Differential Total Cells Counted 100 Neutrophils % (Manual) 88 % (45-75) H Lymphocytes % (Manual) 5 % (20-45) L Monocytes % (Manual) 6 % (1-10) Eosinophils % (Manual) 1 % (0-3) Basophils % (Manual) 0 % (0-2) Band Neutrophils 0 % (0-8) Platelet Estimate Adequate Platelet Morphology Normal Sodium Level 138 MMOL/L (136-145) Potassium Level 2.8 MMOL/L (3.5-5.1) L Chloride Level 109 MMOL/L (98-107) H Carbon Dioxide Level 20 MMOL/L (21-32) L Anion Gap 9 mmol/L (5-15) Blood Urea Nitrogen 18 mg/dL (7-18) Creatinine 0.7 MG/DL (0.55-1.30) Estimat Glomerular Filtration Rate > 60 mL/min (>60) Glucose Level 225 MG/DL (74-106) H Calcium Level 7.7 MG/DL (8.5-10.1) L Phosphorus Level 1.6 MG/DL (2.5-4.9) L Magnesium Level 2.1 MG/DL (1.8-2.4) Total Bilirubin 0.5 MG/DL (0.2-1.0) Aspartate Amino Transf (AST/SGOT) 40 U/L (15-37) H Alanine Aminotransferase (ALT/SGPT) 33 U/L (12-78) Alkaline Phosphatase 241 U/L (46-116) H Total Protein 5.2 G/DL (6.4-8.2) L Albumin 1.1 G/DL (3.4-5.0) L Globulin 4.1 g/dL Albumin/Globulin Ratio 0.3 (1.0-2.7) L Height (Feet): 5 Height (Inches): 6.00 Weight (Pounds): 150 General Appearance: no apparent distress Cardiovascular: normal rate Respiratory/Chest: normal breath sounds, no respiratory distress Abdominal Exam: normal bowel sounds, non tender, soft, GT site Extremities: non-tender Good Garcia [employer]EARCH PROFESSIONAL Jan 24, 2019 13:05
--- NOTE | 2019-01-24 14:27 | NUR ---
TRANSFER TO FLOOR: Patient transferred to [id number], per MD Blaire. Report given to GEOVANNA Khan & GISELLA Edmond. PT VS stable, Anjelica, RT present during transfer, no S/S of respiratory distress during transfer.
--- NOTE | 2019-01-24 14:31 | NUR ---
NURSE NOTES:WOUND CARE NOTES;Pt presented on admission with contractures, multiple pressure injuries .Pt noted to have 3 pressure injuries L elbow. Laterally L elbow -Full thickness pressure injury with 40% slough at base of wound,60% beefy red. Small amt sanguineous exudate noted(L)1.4cm x (W)2.1cm. Pressure injury L elbow (proximal) (L)0.5cm x (W)1cm . Scattered biofilm at base of wound , borders are macerated.(Inferior) (L)0.4cm x (W)0.5cm . Base of wound moist with Biofilm. Small amt serous exudate noted. (L)0.4cm x (W)0.5cm. Full thickness sacral pressure injury. Base of wound is pink- moist with scattered biofilm,(+) maceration along borders. Non-blanching erythema without induration periwound (L)11.2cm x (W)4.5cm x (D)0.4cm. Two additional pressure injuries noted to L and R sacrum. Partial thickness L sacral pressure injury. Base of wound is moist and viable. Edges are macerated with surrounding non-blanching erythema without induration or elevation in skin temp.(L)0.9cm x (W)1.3cm.R sacral partial thickness pressure injury. Base of wound is moist and viable. Edges flat and adherent to base of wound. Non-blanching erythema without induration or elevation in skin temp.(L)2cm x (W)1.5cm. Partial thickness pressure injury to outer R buttocks. base of wound moist and viable. Edges flat and adherent to base of wound. Non-blanching erythema periwound.(L)2.3cm x (W)2.5cm. Partial thickness pressure injury inferior but in close proximity R buttocks (L)2cm x (W)2cm . Base of wound is moist and viable. Surrounding non-blanching erythema without induration. Erythematous and indurated area noted to L groin. No elevation in skin temp noted. Scrotal sac is also erythematous. Non-blanching erythema with fluctuance R hallux. (L)1.6cm x (W)1.7cm. Pressure injury dorsal R foot . Base of wound moist with small amt of Biofilm.(+) maceration along borders.(L)1.5cm x (W)1.7cm. R 1st metatarsal necrotic with soft center with slough . Small amt seropurulent exudate noted. Marginal erythema along borders. (L)1.5cm x (W)1.5cm. Non-blanching erythema without induration or fluctuance lateral malleolus(L)2.5cm x (W)2.5cm. L heel is boggy with non-blanching erythema. R heel is boggy but pink and easily blanchable. Tx.plan: Cleanse Sacral wound with Saline. Apply Therahoney. Apply Triad Paste periwound. Cover with Optifoam drsg. Change every 3 days and prn. Apply Triad paste to pressure injuries R and L sacrum and R outer Buttocks. Cover wounds with Optifoam drsg. Change every 3 days and prn. Apply Triad paste to groin and scrotum with each incontinence care. Cleanse wounds L elbow with saline. Apply Therahoney to wounds. Cover with Optifoam drsg. Change every 3 days and prn. Apply Betadine to wounds dorsal R foot and R 1st metatarsal . Cover with Optifoam drsg. Change daily and prn. Apply Cavilon to R hallux, R and L malleoli and both heels. Cover each site with Optifoam drsgs. Change every 7 days and prn. APM/RENETTA Mattress overlay. Reposition at least every 2hours or as tolerated. Off-load heels with Pillow. Place pillow between knees.
--- NOTE | 2019-01-24 14:52 | Infectious Diseases Prog Note ---
Assessment/Plan Assessment/Plan 63 yo male who was sent to the ED on 01/21/19 for hypotension, fever and respiratory distress. Fever, SP Leukocytosis, fluctuating Gram negative Sepsis 01/22 BCx: GNR, GPC 01/22 CXR: bilateral opacities 01/22 UA positive. UCx streptococcus species 01/23 CXR: Redemonstration of bibasilar patchy airspace opacities. Unchanged pulmonary vascular congestion. No pneumothorax. Stable small left pleural effusion. 01/22 C diff positive VRE colonization DM COPD CVA Dementia Parkinsons Cardiac issues Vent dependent with trach G tube PLAN: - continue meropenem #3 - continue vancomycin PO #2 - DC vancomycin IV #2, start Daptomycin #1 pending culture result given history of VRE infection/colonization - f/u cultures - repeat blood cultures - Monitor CBC and Temps - CXR in am Thank you for this consult. [facility] will continue to follow the patient with you during this hospitalization. Subjective Allergies: Coded Allergies: OXYTETRACYCLINE (Unverified Allergy, Unknown, 09/05/13) PENICILLINS (Unverified Allergy, Unknown, 06/11/17) Tolerated one dose of Cefepime 06/07/17 Tolerated Cefdinir 06/10/17 Uncoded Allergies: PLASTIC TAPE (Allergy, Mild, ITCHINESS, 08/08/15) MEDICAL TAPE (Allergy, Unknown, 12/10/16) Subjective Afebrile FiO2 30% Leukocytosis worse Objective Vital Signs Last 24 Hour Vital Signs Date Time Temp Pulse Resp B/P (MAP) Pulse Ox O2 Delivery O2 Flow Rate FiO2 01/24/19 13:12 114 27 30 01/24/19 13:00 116 18 96/62 (73) 100 01/24/19 12:00 113 01/24/19 12:00 30 01/24/19 12:00 97.1 112 21 98/66 (77) 100 01/24/19 12:00 Mechanical Ventilator 01/24/19 11:00 116 25 93/67 (76) 100 01/24/19 10:47 116 30 30 01/24/19 10:00 115 21 108/69 (82) 100 01/24/19 09:29 117 26 30 01/24/19 09:00 113 21 96/71 (79) 100 01/24/19 08:00 112 20 93/68 (76) 100 01/24/19 08:00 Mechanical Ventilator 01/24/19 08:00 116 01/24/19 08:00 30 01/24/19 07:09 119 35 30 01/24/19 07:00 98.3 113 21 96/70 (79) 100 01/24/19 06:00 114 23 102/72 (82) 100 01/24/19 05:06 115 29 30 01/24/19 05:00 116 23 100/65 (77) 100 01/24/19 04:00 Mechanical Ventilator 01/24/19 04:00 119 01/24/19 04:00 98.8 122 28 107/62 (77) 100 01/24/19 04:00 30 01/24/19 03:01 121 24 30 01/24/19 03:00 120 24 103/75 (84) 99 01/24/19 02:00 121 21 96/68 (77) 99 01/24/19 01:31 121 24 100 Mechanical Ventilator 30 01/24/19 01:21 122 29 100 Mechanical Ventilator 30 122 29 30 01/24/19 01:00 122 24 93/72 (79) 99 01/24/19 00:00 Mechanical Ventilator 01/24/19 00:00 30 01/24/19 00:00 98.7 124 23 103/69 (80) 100 01/24/19 00:00 123 01/23/19 23:07 125 26 30 01/23/19 23:00 126 21 105/70 (82) 100 01/23/19 22:00 127 24 97/73 (81) 99 01/23/19 21:15 106/76 01/23/19 21:08 127 31 30 01/23/19 21:00 128 22 106/76 (86) 100 01/23/19 20:00 127 24 99/82 (88) 100 01/23/19 20:00 30 01/23/19 20:00 127 01/23/19 20:00 Mechanical Ventilator 01/23/19 19:35 126 26 100 Mechanical Ventilator 30 01/23/19 19:25 125 31 100 Mechanical Ventilator 30 125 31 30 01/23/19 19:00 98.8 127 23 103/65 (78) 99 01/23/19 18:30 126 23 96/73 (81) 99 01/23/19 18:00 125 23 105/67 (80) 100 01/23/19 17:30 125 22 90/63 (72) 100 01/23/19 17:00 125 22 93/70 (78) 100 01/23/19 16:46 126 26 30 01/23/19 16:30 126 22 94/69 (77) 100 01/23/19 16:00 128 23 110/71 (84) 100 01/23/19 16:00 30 01/23/19 16:00 127 01/23/19 16:00 Mechanical Ventilator 01/23/19 15:30 127 25 111/76 (88) 100 01/23/19 15:00 128 28 30 01/23/19 15:00 128 25 99/67 (78) 100 Height (Feet): 5 Height (Inches): 6.00 Weight (Pounds): 150 Objective Gen: NAD CV: RRR Resp: coarse. ventilatory sounds Abd: soft. Distended. Hypoactive BS+. G tube Ext: contracted Neuro: not alert Microbiology Date/Time Source Procedure Growth Status 01/22/19 02:10 Blood Blood Culture - Preliminary Gram Negative Bacillus 1 Resulted 01/22/19 02:00 Blood Blood Culture - Preliminary Gram Negative Bacillus 1 Resulted 01/22/19 02:10 Nasal Nares MRSA Culture - Final NO METHICILLIN RESISTANT STAPH AUREUS... Complete 01/22/19 17:23 Stool Clostridium difficile Toxin Assay - Final Complete 01/22/19 04:45 Urine,Clean Catch Urine Culture - Preliminary Streptococcus Species Resulted 01/22/19 02:10 Rectum VRE Culture - Final Enterococcus Faecalis - Vre Complete Laboratory Tests Test 01/23/19 19:25 01/24/19 04:00 Vancomycin Level Trough 10.5 ug/mL (5.0-12.0) White Blood Count 31.8 K/UL (4.8-10.8) *H Red Blood Count 3.75 M/UL (4.70-6.10) L Hemoglobin 10.9 G/DL (14.2-18.0) L Hematocrit 33.1 % (42.0-52.0) L Mean Corpuscular Volume 88 FL (80-99) Mean Corpuscular Hemoglobin 29.0 PG (27.0-31.0) Mean Corpuscular Hemoglobin Concent 32.9 G/DL (32.0-36.0) Red Cell Distribution Width 14.3 % (11.6-14.8) Platelet Count 222 K/UL (150-450) Mean Platelet Volume 8.0 FL (6.5-10.1) Neutrophils (%) (Auto) % (45.0-75.0) Lymphocytes (%) (Auto) % (20.0-45.0) Monocytes (%) (Auto) % (1.0-10.0) Eosinophils (%) (Auto) % (0.0-3.0) Basophils (%) (Auto) % (0.0-2.0) Differential Total Cells Counted 100 Neutrophils % (Manual) 88 % (45-75) H Lymphocytes % (Manual) 5 % (20-45) L Monocytes % (Manual) 6 % (1-10) Eosinophils % (Manual) 1 % (0-3) Basophils % (Manual) 0 % (0-2) Band Neutrophils 0 % (0-8) Platelet Estimate Adequate Platelet Morphology Normal Sodium Level 138 MMOL/L (136-145) Potassium Level 2.8 MMOL/L (3.5-5.1) L Chloride Level 109 MMOL/L (98-107) H Carbon Dioxide Level 20 MMOL/L (21-32) L Anion Gap 9 mmol/L (5-15) Blood Urea Nitrogen 18 mg/dL (7-18) Creatinine 0.7 MG/DL (0.55-1.30) Estimat Glomerular Filtration Rate > 60 mL/min (>60) Glucose Level 225 MG/DL (74-106) H Calcium Level 7.7 MG/DL (8.5-10.1) L Phosphorus Level 1.6 MG/DL (2.5-4.9) L Magnesium Level 2.1 MG/DL (1.8-2.4) Total Bilirubin 0.5 MG/DL (0.2-1.0) Aspartate Amino Transf (AST/SGOT) 40 U/L (15-37) H Alanine Aminotransferase (ALT/SGPT) 33 U/L (12-78) Alkaline Phosphatase 241 U/L (46-116) H Total Protein 5.2 G/DL (6.4-8.2) L Albumin 1.1 G/DL (3.4-5.0) L Globulin 4.1 g/dL Albumin/Globulin Ratio 0.3 (1.0-2.7) L Current Medications Medications (Trade) Dose Ordered Sig/Sima Route PRN Reason Start Time Stop Time Status Last Admin Dose Admin Acetaminophen (Tylenol) 650 mg Q4H PRN GT Mild Pain/Temp > 100.5 01/22/19 06:15 02/21/19 06:14 Acetaminophen/ Hydrocodone Bitart (Carleton 10) 1 tab Q4H PRN ORAL For Pain 01/22/19 06:15 01/29/19 06:14 Albuterol Sulfate (Proventil) 2.5 mg Q6HRT HHN 01/22/19 07:00 01/27/19 06:59 01/24/19 01:22 Ascorbic Acid (Vitamin C) 250 mg DAILY ORAL 01/25/19 09:00 02/24/19 08:59 Chlorhexidine Gluconate (Paulina-Hex 2%) 1 applic DAILY@2000 TOPIC 01/22/19 20:00 02/21/19 19:59 01/23/19 19:15 Daptomycin 400 mg/ Sodium Chloride 55 ml @ 100 mls/hr Q24H IV 01/24/19 16:00 01/31/19 15:59 Dextrose (Dextrose 50%) 25 ml Q30M PRN IV Hypoglycemia 01/22/19 06:30 02/21/19 06:29 Dextrose (Dextrose 50%) 50 ml Q30M PRN IV Hypoglycemia 01/22/19 06:30 02/21/19 06:29 Dextrose/Sodium Chloride 1,000 ml @ 50 mls/hr Q20H IV 01/24/19 10:00 02/21/19 09:59 01/24/19 10:10 Docusate Sodium (Colace) 100 mg DAILY PRN NG constipation 01/22/19 06:15 02/21/19 06:14 Famotidine (Pepcid I.v.) 20 mg Q12HR IVP 01/24/19 21:00 02/23/19 20:59 Insulin Aspart (NovoLOG) BEFORE MEALS AND HS SUBQ 01/22/19 07:30 02/21/19 07:29 01/24/19 12:07 Meropenem 1 gm/ Sodium Chloride 55 ml @ 110 mls/hr Q12HR@0300,1500 IVPB 01/22/19 15:00 01/27/19 14:59 01/24/19 02:30 Midodrine (Pro-Amatine) 2.5 mg THREE TIMES A DAY ORAL 01/22/19 13:00 02/21/19 12:59 01/24/19 13:23 Norepinephrine Bitartrate 8 mg/ Dextrose 500 ml @ 0 mls/hr Q24H IV 01/22/19 21:30 02/21/19 21:29 01/22/19 20:58 Polyethylene Glycol (Miralax) 17 gm BEDTIME ORAL 01/22/19 21:00 02/21/19 20:59 Potassium Phosphate 30 mm/ Sodium Chloride 285 ml @ 47.5 mls/hr ONCE ONCE IV 01/24/19 09:30 01/24/19 15:29 01/24/19 09:31 Tamsulosin HCl (Flomax) 0.4 mg BID ORAL 01/22/19 10:00 02/21/19 09:59 01/24/19 08:26 Vancomycin HCl (Firvanq) 125 mg FOUR TIMES A DAY GT 01/23/19 13:00 02/02/19 09:01 01/24/19 13:27 Mukesh Betancourt MD Jan 24, 2019 14:52
--- NOTE | 2019-01-24 15:00 | NUR ---
NURSE NOTES: RECEIVED PT VIA BED ESCORTED BY SHLOMO AUSTIN FROM ICU. 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 WILL CONT TO MONITOR..
--- NOTE | 2019-01-24 15:22 | Nephrology Progress Note ---
Assessment/Plan Problem List: (1) Hypokalemia (2) HARDEEP (acute kidney injury) (3) Sepsis (4) Hyponatremia Assessment HARDEEP (acute kidney injury) HypoNatremia Septic shock Others: HCAP (healthcare-associated pneumonia) Chronic respiratory failure Ventilator dependence Vegetative state History of CVA (cerebrovascular accident) Feeding by G-tube HTN (hypertension) Cerebral vascular disease Plan K Phos mag as needed Hydrate monitor renal parameters Midodrine Antibiotics Avoid nephrotoxics Brooks could not be put in due to resistance start flomax per order Subjective ROS Limited/Unobtainable: Yes Objective Objective Last 24 Hour Vital Signs Date Time Temp Pulse Resp B/P (MAP) Pulse Ox O2 Delivery O2 Flow Rate FiO2 01/24/19 15:02 115 28 30 01/24/19 14:00 111 19 98/65 (76) 100 01/24/19 13:12 114 27 30 01/24/19 13:00 116 18 96/62 (73) 100 01/24/19 12:00 113 01/24/19 12:00 30 01/24/19 12:00 97.1 112 21 98/66 (77) 100 01/24/19 12:00 Mechanical Ventilator 01/24/19 11:00 116 25 93/67 (76) 100 01/24/19 10:47 116 30 30 01/24/19 10:00 115 21 108/69 (82) 100 01/24/19 09:29 117 26 30 01/24/19 09:00 113 21 96/71 (79) 100 01/24/19 08:00 112 20 93/68 (76) 100 01/24/19 08:00 Mechanical Ventilator 01/24/19 08:00 116 01/24/19 08:00 30 01/24/19 07:09 119 35 30 01/24/19 07:00 98.3 113 21 96/70 (79) 100 01/24/19 06:00 114 23 102/72 (82) 100 01/24/19 05:06 115 29 30 01/24/19 05:00 116 23 100/65 (77) 100 01/24/19 04:00 Mechanical Ventilator 01/24/19 04:00 119 01/24/19 04:00 98.8 122 28 107/62 (77) 100 01/24/19 04:00 30 11/4/19 03:01 121 24 30 01/24/19 03:00 120 24 103/75 (84) 99 01/24/19 02:00 121 21 96/68 (77) 99 01/24/19 01:31 121 24 100 Mechanical Ventilator 30 01/24/19 01:21 122 29 100 Mechanical Ventilator 30 122 29 30 01/24/19 01:00 122 24 93/72 (79) 99 01/24/19 00:00 Mechanical Ventilator 01/24/19 00:00 30 01/24/19 00:00 98.7 124 23 103/69 (80) 100 01/24/19 00:00 123 01/23/19 23:07 125 26 30 01/23/19 23:00 126 21 105/70 (82) 100 01/23/19 22:00 127 24 97/73 (81) 99 01/23/19 21:15 106/76 01/23/19 21:08 127 31 30 01/23/19 21:00 128 22 106/76 (86) 100 01/23/19 20:00 127 24 99/82 (88) 100 01/23/19 20:00 30 01/23/19 20:00 127 01/23/19 20:00 Mechanical Ventilator 01/23/19 19:35 126 26 100 Mechanical Ventilator 30 01/23/19 19:25 125 31 100 Mechanical Ventilator 30 125 31 30 01/23/19 19:00 98.8 127 23 103/65 (78) 99 01/23/19 18:30 126 23 96/73 (81) 99 01/23/19 18:00 125 23 105/67 (80) 100 01/23/19 17:30 125 22 90/63 (72) 100 01/23/19 17:00 125 22 93/70 (78) 100 01/23/19 16:46 126 26 30 01/23/19 16:30 126 22 94/69 (77) 100 01/23/19 16:00 128 23 110/71 (84) 100 01/23/19 16:00 30 01/23/19 16:00 127 01/23/19 16:00 Mechanical Ventilator 01/23/19 15:30 127 25 111/76 (88) 100 Intake and Output 01/23/19 01/24/19 19:00 07:00 Intake Total 1992.200 ml 1355 ml Output Total 990 ml 745 ml Balance 1002.200 ml 610 ml IV Total 1992.200 ml 1355 ml Output Urine Total 840 ml 470 ml Stool Total 150 ml 200 ml Gastric Drainage Total 75 ml Laboratory Tests 01/23/19 19:25: Vancomycin Level Trough 10.5 01/24/19 04:00: White Blood Count 31.8*H, Red Blood Count 3.75L, Hemoglobin 10.9L, Hematocrit 33.1L, Mean Corpuscular Volume 88, Mean Corpuscular Hemoglobin 29.0, Mean Corpuscular Hemoglobin Concent 32.9, Red Cell Distribution Width 14.3, Platelet Count 222, Mean Platelet Volume 8.0, Neutrophils (%) (Auto) , Lymphocytes (%) ( Auto) , Monocytes (%) (Auto) , Eosinophils (%) (Auto) , Basophils (%) (Auto) , Differential Total Cells Counted 100, Neutrophils % (Manual) 88H, Lymphocytes % (Manual) 5L, Monocytes % (Manual) 6, Eosinophils % (Manual) 1, Basophils % ( Manual) 0, Band Neutrophils 0, Platelet Estimate Adequate, Platelet Morphology Normal, Sodium Level 138, Potassium Level 2.8L, Chloride Level 109H, Carbon Dioxide Level 20L, Anion Gap 9, Blood Urea Nitrogen 18, Creatinine 0.7, Estimat Glomerular Filtration Rate > 60, Glucose Level 225H, Calcium Level 7.7L, Phosphorus Level 1.6L, Magnesium Level 2.1, Total Bilirubin 0.5, Aspartate Amino Transf (AST/SGOT) 40H, Alanine Aminotransferase (ALT/SGPT) 33, Alkaline Phosphatase 241H, Total Protein 5.2L, Albumin 1.1L, Globulin 4.1, Albumin/ Globulin Ratio 0.3L Height (Feet): 5 Height (Inches): 6.00 Weight (Pounds): 150 General Appearance: no apparent distress EENT: other - vented Neck: other - trach Respiratory/Chest: decreased breath sounds Abdomen: distended Sergey Rivera MD Jan 24, 2019 15:22
[2019-01-24] MEDS ORDERED: Meropenem 1 GM in NS 55 ML IVPB SCH (15:31)
[2019-01-24] MEDS ORDERED: DAPTOmycin 400 MG in NS 55 ML IV SCH (16:00)
--- NOTE | 2019-01-24 16:19 | NUR ---
*-* INSURANCE *-* ALL AVAILABLE CLINICALS HAVE BEEN FAXED TO: Tanya Hyman CM or Ref# Yet #[phone]
[2019-01-24] MEDS: DAPTOmycin 400 MG in NS 55 ML IV SCH (17:16)
--- NOTE | 2019-01-24 19:25 | NUR ---
HAND-OFF: Report given to .CONCHA AUSTIN.
--- NOTE | 2019-01-24 19:31 | NUR ---
CASE MANAGEMENT: REVIEW SI: SEPSIS . PNA . RESP FAILURE . TRACH/VENT DEPENDENT T 98.0 HR 117 RR 28 BP 102/63 SAT 100% MECH VENT FIO2 30 WBC 31.8 H/H 10.9/33.1 IS: VANCO HCl GT 4X/DAY MIDODRINE GT TID MEROPENEM IV Q12HR D5 NS IVF @50ML/HR DAPTOMYCIN IV Q24HR STEP DOWN UNIT STATUS DCP: PATIENT IS FROM [facility]
[2019-01-24] MEDS: Acetaminophen 650mg/20.3ml GT PRN (20:31)
[2019-01-24] MEDS: Dyna-Hex 2% Top Sol 2oz TOPIC SCH (20:32)
[2019-01-24] MEDS: HYDROcodone/Acetamin 10/325 tab GT PRN (20:32)
[2019-01-24] MEDS: Miralax 17gm pkt GT SCH (20:36)
[2019-01-24] MEDS ORDERED: Norepinephrine Bitartrate 8 MG in D5W 500ml 492 ML IV SCH (21:30)
[2019-01-24] MEDS ORDERED: Metoprolol 25mg tab ORAL ONE (22:45)
[2019-01-25] VITALS: BP 107/57
[2019-01-25] MEDS: Acetaminophen 650mg/20.3ml GT PRN (00:43)
[2019-01-25] MEDS: Albuterol ud Inhalation HHN SCH ×5 (01:00→19:13)
[2019-01-25 04:00] VITALS: BP 103/56
[2019-01-25 05:24] LABS: HEMATOCRIT 36.8 % (42.0-52.0); HEMOGLOBIN 12.1 G/DL (14.2-18.0); MEAN CORPUSCULAR VOLUME 89 FL (80-99); PLATELET COUNT 282 K/UL (150-450); RED BLOOD COUNT 4.14 M/UL (4.70-6.10); RED CELL DISTRIBUTION WIDTH 14.4 % (11.6-14.8)
[2019-01-25 05:44] LABS: WHITE BLOOD COUNT 32.7 K/UL (4.8-10.8)
[2019-01-25 05:59] LABS: ALANINE AMINOTRANSFERASE 51 U/L (12-78); ALBUMIN 1.3 G/DL (3.4-5.0); ALBUMIN/GLOBULIN RATIO 0.3 (1.0-2.7); ALKALINE PHOSPHATASE 486 U/L (46-116); ANION GAP 11 mmol/L (5-15); ASPARTATE AMINO TRANSFERASE 83 U/L (15-37); BILIRUBIN,TOTAL 0.5 MG/DL (0.2-1.0); BLOOD UREA NITROGEN 20 mg/dL (7-18); CALCIUM 7.8 MG/DL (8.5-10.1); CARBON DIOXIDE 17 MMOL/L (21-32); CHLORIDE 111 MMOL/L (98-107); CREATININE 0.7 MG/DL (0.55-1.30); PHOSPHORUS 2.7 MG/DL (2.5-4.9); POTASSIUM 4.4 MMOL/L (3.5-5.1); SODIUM 139 MMOL/L (136-145)
[2019-01-25] MEDS: Meropenem 1 GM in NS 55 ML IVPB SCH ×2 (06:00→17:33)
[2019-01-25] MEDS: NovoLOG Insulin Flexpen SUBQ SCH ×4 (06:02→20:39)
--- NOTE | 2019-01-25 06:59 | NUR ---
RESPIRATORY NOTE: Patient received mechanically ventilated on PB 840 with current ordered vent settings. Patient has trach size 7.0 Portex cuffed that is secured with a trach tie and guard. Vent alarms are functional, audible, and the vent is connected to a red outlet. There is an ambu bag and spare trach available at the bedside. Will continue to monitor.
--- NOTE | 2019-01-25 07:14 | NUR ---
HAND-OFF: Report given to Radha AUSTIN. Patient in bed, stable at hand-off. Endorsed increased WBC's to RN. MD also aware.
--- NOTE | 2019-01-25 07:15 | NUR ---
NURSE NOTES: Received bedside report from Noemy Kelley RN. Pt. in bed, obtunded. No sign of distress. On mech. vent. with setting of AC16/VT500/Fi O2 of 30%/P5. HOB elevated at all times. On GTF Vital AF at 50cc/hr. cont. goal at 55cc/hr. F/C in placed patent/intact draining yellow colored urine. Rectal tube in placed patent/intact draining brownish liquid output. IV site right IJ in placed patent/intact running D5 NS at 50cc/hr. Bed in low position, locked. Call light within reach. Will cont. to monitor.
[2019-01-25 08:00] VITALS: BP 90/51
[2019-01-25] MEDS ORDERED: Docusate 100mg/10ml Liq NG PRN (09:00)
[2019-01-25] MEDS ORDERED: Metoprolol Succinate XL 25mg tab ORAL ONE (09:00)
[2019-01-25] MEDS ORDERED: Ascorbic Acid 500mg tab ORAL SCH (09:00)
[2019-01-25] MEDS ORDERED: Potassium Phosphate 30 MM in NS 275 ML IV ONE (09:30)
[2019-01-25] MEDS: Vancomycin oral 125mg/2.5ml GT SCH ×4 (09:34→20:35)
[2019-01-25] MEDS: Ascorbic Acid 500mg tab GT SCH (09:34)
[2019-01-25] MEDS: Tamsulosin 0.4mg cap ORAL SCH ×2 (09:34→18:22)
--- NOTE | 2019-01-25 10:30 | Progress Note ---
DATE: 01/24/2019 NOTE: "POOR AUDIO QUALITY" SUBJECTIVE: The patient is awake alert, afebrile, and hemodynamically stable. PHYSICAL EXAMINATION: VITAL SIGNS: Blood pressure is 118/76, pulse is 175, respirations 26, and temperature was 98. HEENT: Eyes were normal. ENT, mucous membranes were moist and intact. NECK: Supple with no JVD without lymph nodes. Tracheostomy site is clean. LUNGS: Clear without rhonchi, rales, or wheezing. Secretions are small, thin, and clayton. HEART: Normal sounds with regular heartbeat. There is tachycardia at rest. Sinus tachycardia on monitor with 170 to 160. ABDOMEN: Soft and nontender with normal bowel sounds. Gastrostomy site is clean. EXTREMITIES: Without cyanosis, clubbing, or edema. LABORATORY AND DIAGNOSTIC DATA: Hemoglobin is 10.9, hematocrit 33.1 with MCV of 88, WBC of 31,800, and platelet of 222,000. His BUN and creatinine is 18 and 0.7 respectively. His sodium is 138, potassium 2.8, chloride 109, and CO2 is 20. His calcium is 7.7. His phosphorus is 1.8 and magnesium 2.1. AST was 48, ALT was 37, albumin is 1.1, and total protein is 5.2. IMPRESSION: The patient has deterioration in his condition. His leukocytosis has increased from 25 to 31. His heart rate has increased from 100 to 110 to 130 to 160. Blood cultures are positive. Repeat laboratory tests will be done in the morning. Boris Arevalo M.D. DR: Lilibeth JOB#: [id number] CC:
--- NOTE | 2019-01-25 10:48 | Pulmonolgy Critical Care Note ---
Critical Care - Asmt/Plan Problems: (1) Septic shock (2) HCAP (healthcare-associated pneumonia) (3) Chronic respiratory failure (4) Ventilator dependence (5) Vegetative state (6) HARDEEP (acute kidney injury) (7) History of CVA (cerebrovascular accident) (8) Feeding by G-tube (9) HTN (hypertension) (10) Cerebral vascular disease Respiratory: monitor respiratory rate, adjust FIO2 Cardiac: continue pressors, continue to monitor HR/BP Renal: F/U I&O, keep IV fluid, check electrolytes Infectious Disease: check cultures Gastrointestinal: continue feedings/current rate Endocrine: monitor blood sugar, check HgA1C Neurologic: PRN Ativan, keep patient comfortable Prophylaxis: Protonix Time Spent (Minutes): 40 Notes Reviewed: forensic computer examiner, renal Discussed with: nurses, consultants, shelter case managerquality compliance manager - Objective Last 24 Hour Vital Signs Date Time Temp Pulse Resp B/P (MAP) Pulse Ox O2 Delivery O2 Flow Rate FiO2 01/25/19 09:02 125 28 30 01/25/19 08:00 99.1 100 24 90/51 (64) 100 01/25/19 06:55 130 24 30 01/25/19 04:44 134 30 30 01/25/19 04:00 98.2 125 26 103/56 (72) 100 01/25/19 04:00 Mechanical Ventilator 01/25/19 04:00 142 01/25/19 04:00 30 01/25/19 03:16 130 28 30 01/25/19 01:13 99.0 01/25/19 01:06 135 30 30 01/25/19 00:00 30 01/25/19 00:00 101.7 132 29 107/57 (74) 100 01/25/19 00:00 Mechanical Ventilator 01/25/19 00:00 148 01/24/19 23:11 145 118/76 01/24/19 22:48 120 31 30 01/24/19 21:04 117 28 30 01/24/19 20:00 129 01/24/19 20:00 Mechanical Ventilator 01/24/19 20:00 30 01/24/19 20:00 98.0 135 26 118/76 (90) 98 01/24/19 19:10 122 30 30 01/24/19 18:00 30 01/24/19 17:11 123 28 30 01/24/19 16:00 98.0 120 24 116/72 (87) 100 01/24/19 16:00 Mechanical Ventilator 01/24/19 16:00 117 01/24/19 15:02 115 28 30 01/24/19 15:00 97.8 117 20 102/63 (76) 100 01/24/19 14:00 111 19 98/65 (76) 100 01/24/19 13:12 114 27 30 01/24/19 13:00 116 18 96/62 (73) 100 01/24/19 12:00 113 01/24/19 12:00 30 01/24/19 12:00 97.1 112 21 98/66 (77) 100 01/24/19 12:00 Mechanical Ventilator 01/24/19 11:00 116 25 93/67 (76) 100 Status: awake Condition: critical HEENT: atraumatic Lungs: chest wall tender Heart: HR/BP unstable Abdomen: non-tender, active bowel sounds Extremities: no C/C/E Decubiti: location Micro: Microbiology Date/Time Source Procedure Growth Status 01/22/19 17:23 Stool Clostridium difficile Toxin Assay - Final Complete Accucheck: 202 Critical Care - Subjective ROS Limited/Unobtainable: Yes Condition: critical EKG Rhythm: Sinus Rhythm FI02: 30 Vent Support Breath Rate: 16 Vent Support Mode: AC Vent Tidal Volume: 500 Sputum Amount: Small PEEP: 5.0 PIP: 21 Tube Feeding Amount: 50 I&O: Intake and Output 01/24/19 01/25/19 19:00 07:00 Intake Total 1832.499 ml 1015 ml Output Total 585 ml 650 ml Balance 1247.499 ml 365 ml Free Water 150 ml IV Total 1487.499 ml 605 ml Tube Feeding 165 ml 410 ml Other 30 ml Output Urine Total 535 ml 250 ml Stool Total 50 ml 400 ml Labs: Laboratory Tests Test 01/25/19 04:00 White Blood Count 32.7 K/UL (4.8-10.8) *H Red Blood Count 4.14 M/UL (4.70-6.10) L Hemoglobin 12.1 G/DL (14.2-18.0) L Hematocrit 36.8 % (42.0-52.0) L Mean Corpuscular Volume 89 FL (80-99) Mean Corpuscular Hemoglobin 29.3 PG (27.0-31.0) Mean Corpuscular Hemoglobin Concent 32.9 G/DL (32.0-36.0) Red Cell Distribution Width 14.4 % (11.6-14.8) Platelet Count 282 K/UL (150-450) Mean Platelet Volume 7.4 FL (6.5-10.1) Neutrophils (%) (Auto) % (45.0-75.0) Lymphocytes (%) (Auto) % (20.0-45.0) Monocytes (%) (Auto) % (1.0-10.0) Eosinophils (%) (Auto) % (0.0-3.0) Basophils (%) (Auto) % (0.0-2.0) Differential Total Cells Counted 100 Neutrophils % (Manual) 84 % (45-75) H Lymphocytes % (Manual) 3 % (20-45) L Monocytes % (Manual) 7 % (1-10) Eosinophils % (Manual) 0 % (0-3) Basophils % (Manual) 0 % (0-2) Band Neutrophils 6 % (0-8) Platelet Estimate Adequate Platelet Morphology Normal Sodium Level 139 MMOL/L (136-145) Potassium Level 4.4 MMOL/L (3.5-5.1) # Chloride Level 111 MMOL/L (98-107) H Carbon Dioxide Level 17 MMOL/L (21-32) L Anion Gap 11 mmol/L (5-15) Blood Urea Nitrogen 20 mg/dL (7-18) H Creatinine 0.7 MG/DL (0.55-1.30) Estimat Glomerular Filtration Rate > 60 mL/min (>60) Glucose Level 247 MG/DL (74-106) H Calcium Level 7.8 MG/DL (8.5-10.1) L Phosphorus Level 2.7 MG/DL (2.5-4.9) Magnesium Level 1.8 MG/DL (1.8-2.4) Total Bilirubin 0.5 MG/DL (0.2-1.0) Aspartate Amino Transf (AST/SGOT) 83 U/L (15-37) H Alanine Aminotransferase (ALT/SGPT) 51 U/L (12-78) Alkaline Phosphatase 486 U/L (46-116) H Total Protein 6.0 G/DL (6.4-8.2) L Albumin 1.3 G/DL (3.4-5.0) L Globulin 4.7 g/dL Albumin/Globulin Ratio 0.3 (1.0-2.7) L Sagar Rudd MD Jan 25, 2019 10:48
--- NOTE | 2019-01-25 11:04 | NUR ---
*-* INSURANCE *-* UPDATED CLINICALS AND REVIEWS HAVE BEEN FAXED TO: Tanya Hyman CM or Ref# Layne #[phone] Addendum: 01/25/19 at 1112 by AICHA AZUL CM SPOKE TO COLTON BARBOUR COORDINATOR WHOM TRANSFERRED ME TO TAJ [employer]IN[employer] TO CALL AND LET ME KNOW IF CLINICALS HAVE BEEN RECEIVED.
[2019-01-25 12:00] VITALS: BP 99/64
[2019-01-25] MEDS: D5NS 1,000 ML IV SCH (12:33)
--- NOTE | 2019-01-25 12:56 | GI Progress Note ---
Assessment/Plan Problems: (1) Clostridium difficile diarrhea ICD Codes: A04.72 - Enterocolitis due to Clostridium difficile, not specified as recurrent SNOMED: 2917047816464 (2) Severe sepsis ICD Codes: A41.9 - Sepsis, unspecified organism; R65.20 - Severe sepsis without septic shock SNOMED: 77573308 (3) Feeding by G-tube ICD Codes: Z93.1 - Feeding by G-tube SNOMED: 868815236 (4) Diarrhea ICD Codes: R19.7 - Diarrhea, unspecified SNOMED: 78111480 (5) Upper GI bleed ICD Codes: K92.2 - Gastrointestinal hemorrhage, unspecified SNOMED: 45027279 Status: unchanged Status Narrative Discussed with Dr. Rosas Assessment/Plan No plans for GI procedures at this time given sepsis. Monitor H&H, PRN transfusions Occult blood to rule out any GI bleed Hold PPI given C. difficile H2B Antibiotics per infectious diseases for C. difficile IV hydration plus electrolyte correction Start feeding at low rate, and advance to goal Follow labs The patient was seen and examined at bedside and all new and available data was reviewed in the patients chart. I agree with the above findings, impression and plan. (Patient seen earlier today. Signature stamp does not reflect patient encounter time.). - Gaurav Rosas MD Subjective Subjective limited Objective Last 24 Hour Vital Signs Date Time Temp Pulse Resp B/P (MAP) Pulse Ox O2 Delivery O2 Flow Rate FiO2 01/25/19 11:26 119 30 30 01/25/19 09:02 125 28 30 01/25/19 08:00 30 01/25/19 08:00 99.1 100 24 90/51 (64) 100 01/25/19 08:00 Mechanical Ventilator 01/25/19 07:33 114 01/25/19 06:55 130 24 30 01/25/19 04:44 134 30 30 01/25/19 04:00 98.2 125 26 103/56 (72) 100 01/25/19 04:00 Mechanical Ventilator 01/25/19 04:00 142 01/25/19 04:00 30 01/25/19 03:16 130 28 30 01/25/19 01:13 99.0 01/25/19 01:06 135 30 30 01/25/19 00:00 30 01/25/19 00:00 101.7 132 29 107/57 (74) 100 01/25/19 00:00 Mechanical Ventilator 01/25/19 00:00 148 01/24/19 23:11 145 118/76 01/24/19 22:48 120 31 30 01/24/19 21:04 117 28 30 01/24/19 20:00 129 01/24/19 20:00 Mechanical Ventilator 01/24/19 20:00 30 01/24/19 20:00 98.0 135 26 118/76 (90) 98 01/24/19 19:10 122 30 30 01/24/19 18:00 30 01/24/19 17:11 123 28 30 01/24/19 16:00 98.0 120 24 116/72 (87) 100 01/24/19 16:00 Mechanical Ventilator 01/24/19 16:00 117 01/24/19 15:02 115 28 30 01/24/19 15:00 97.8 117 20 102/63 (76) 100 01/24/19 14:00 111 19 98/65 (76) 100 01/24/19 13:12 114 27 30 01/24/19 13:00 116 18 96/62 (73) 100 Intake and Output 01/24/19 01/25/19 19:00 07:00 Intake Total 1832.499 ml 1015 ml Output Total 585 ml 650 ml Balance 1247.499 ml 365 ml Free Water 150 ml IV Total 1487.499 ml 605 ml Tube Feeding 165 ml 410 ml Other 30 ml Output Urine Total 535 ml 250 ml Stool Total 50 ml 400 ml Laboratory Tests Test 01/25/19 04:00 White Blood Count 32.7 K/UL (4.8-10.8) *H Red Blood Count 4.14 M/UL (4.70-6.10) L Hemoglobin 12.1 G/DL (14.2-18.0) L Hematocrit 36.8 % (42.0-52.0) L Mean Corpuscular Volume 89 FL (80-99) Mean Corpuscular Hemoglobin 29.3 PG (27.0-31.0) Mean Corpuscular Hemoglobin Concent 32.9 G/DL (32.0-36.0) Red Cell Distribution Width 14.4 % (11.6-14.8) Platelet Count 282 K/UL (150-450) Mean Platelet Volume 7.4 FL (6.5-10.1) Neutrophils (%) (Auto) % (45.0-75.0) Lymphocytes (%) (Auto) % (20.0-45.0) Monocytes (%) (Auto) % (1.0-10.0) Eosinophils (%) (Auto) % (0.0-3.0) Basophils (%) (Auto) % (0.0-2.0) Differential Total Cells Counted 100 Neutrophils % (Manual) 84 % (45-75) H Lymphocytes % (Manual) 3 % (20-45) L Monocytes % (Manual) 7 % (1-10) Eosinophils % (Manual) 0 % (0-3) Basophils % (Manual) 0 % (0-2) Band Neutrophils 6 % (0-8) Platelet Estimate Adequate Platelet Morphology Normal Sodium Level 139 MMOL/L (136-145) Potassium Level 4.4 MMOL/L (3.5-5.1) # Chloride Level 111 MMOL/L (98-107) H Carbon Dioxide Level 17 MMOL/L (21-32) L Anion Gap 11 mmol/L (5-15) Blood Urea Nitrogen 20 mg/dL (7-18) H Creatinine 0.7 MG/DL (0.55-1.30) Estimat Glomerular Filtration Rate > 60 mL/min (>60) Glucose Level 247 MG/DL (74-106) H Calcium Level 7.8 MG/DL (8.5-10.1) L Phosphorus Level 2.7 MG/DL (2.5-4.9) Magnesium Level 1.8 MG/DL (1.8-2.4) Total Bilirubin 0.5 MG/DL (0.2-1.0) Aspartate Amino Transf (AST/SGOT) 83 U/L (15-37) H Alanine Aminotransferase (ALT/SGPT) 51 U/L (12-78) Alkaline Phosphatase 486 U/L (46-116) H Total Protein 6.0 G/DL (6.4-8.2) L Albumin 1.3 G/DL (3.4-5.0) L Globulin 4.7 g/dL Albumin/Globulin Ratio 0.3 (1.0-2.7) L Height (Feet): 5 Height (Inches): 6.00 Weight (Pounds): 153 General Appearance: no apparent distress Cardiovascular: normal rate Abdominal Exam: site Good Garcia NP Jan 25, 2019 12:56
--- NOTE | 2019-01-25 12:58 | Surgery Progress Note ---
Surgery Progress Note Subjective Additional Comments tube feeds on hold respiratory decline AC 16/500/100%/5 labs as below exam notd Objective Last 24 Hour Vital Signs Date Time Temp Pulse Resp B/P (MAP) Pulse Ox O2 Delivery O2 Flow Rate FiO2 01/25/19 11:26 119 30 30 01/25/19 09:02 125 28 30 01/25/19 08:00 30 01/25/19 08:00 99.1 100 24 90/51 (64) 100 01/25/19 08:00 Mechanical Ventilator 01/25/19 07:33 114 01/25/19 06:55 130 24 30 01/25/19 04:44 134 30 30 01/25/19 04:00 98.2 125 26 103/56 (72) 100 01/25/19 04:00 Mechanical Ventilator 01/25/19 04:00 142 01/25/19 04:00 30 01/25/19 03:16 130 28 30 01/25/19 01:13 99.0 01/25/19 01:06 135 30 30 01/25/19 00:00 30 01/25/19 00:00 101.7 132 29 107/57 (74) 100 01/25/19 00:00 Mechanical Ventilator 01/25/19 00:00 148 01/24/19 23:11 145 118/76 01/24/19 22:48 120 31 30 01/24/19 21:04 117 28 30 01/24/19 20:00 129 01/24/19 20:00 Mechanical Ventilator 01/24/19 20:00 30 01/24/19 20:00 98.0 135 26 118/76 (90) 98 01/24/19 19:10 122 30 30 01/24/19 18:00 30 01/24/19 17:11 123 28 30 01/24/19 16:00 98.0 120 24 116/72 (87) 100 01/24/19 16:00 Mechanical Ventilator 01/24/19 16:00 117 01/24/19 15:02 115 28 30 01/24/19 15:00 97.8 117 20 102/63 (76) 100 01/24/19 14:00 111 19 98/65 (76) 100 01/24/19 13:12 114 27 30 01/24/19 13:00 116 18 96/62 (73) 100 I&O Intake and Output 01/24/19 01/25/19 19:00 07:00 Intake Total 1832.499 ml 1015 ml Output Total 585 ml 650 ml Balance 1247.499 ml 365 ml Free Water 150 ml IV Total 1487.499 ml 605 ml Tube Feeding 165 ml 410 ml Other 30 ml Output Urine Total 535 ml 250 ml Stool Total 50 ml 400 ml Dressing: saturated Wound: other Drains: other Cardiovascular: RSR Respiratory: decreased breath sounds Abdomen: soft, non-tender, non-distended Extremities: no cyanosis, other Laboratory Tests Test 01/25/19 04:00 White Blood Count 32.7 K/UL (4.8-10.8) *H Red Blood Count 4.14 M/UL (4.70-6.10) L Hemoglobin 12.1 G/DL (14.2-18.0) L Hematocrit 36.8 % (42.0-52.0) L Mean Corpuscular Volume 89 FL (80-99) Mean Corpuscular Hemoglobin 29.3 PG (27.0-31.0) Mean Corpuscular Hemoglobin Concent 32.9 G/DL (32.0-36.0) Red Cell Distribution Width 14.4 % (11.6-14.8) Platelet Count 282 K/UL (150-450) Mean Platelet Volume 7.4 FL (6.5-10.1) Neutrophils (%) (Auto) % (45.0-75.0) Lymphocytes (%) (Auto) % (20.0-45.0) Monocytes (%) (Auto) % (1.0-10.0) Eosinophils (%) (Auto) % (0.0-3.0) Basophils (%) (Auto) % (0.0-2.0) Differential Total Cells Counted 100 Neutrophils % (Manual) 84 % (45-75) H Lymphocytes % (Manual) 3 % (20-45) L Monocytes % (Manual) 7 % (1-10) Eosinophils % (Manual) 0 % (0-3) Basophils % (Manual) 0 % (0-2) Band Neutrophils 6 % (0-8) Platelet Estimate Adequate Platelet Morphology Normal Sodium Level 139 MMOL/L (136-145) Potassium Level 4.4 MMOL/L (3.5-5.1) # Chloride Level 111 MMOL/L (98-107) H Carbon Dioxide Level 17 MMOL/L (21-32) L Anion Gap 11 mmol/L (5-15) Blood Urea Nitrogen 20 mg/dL (7-18) H Creatinine 0.7 MG/DL (0.55-1.30) Estimat Glomerular Filtration Rate > 60 mL/min (>60) Glucose Level 247 MG/DL (74-106) H Calcium Level 7.8 MG/DL (8.5-10.1) L Phosphorus Level 2.7 MG/DL (2.5-4.9) Magnesium Level 1.8 MG/DL (1.8-2.4) Total Bilirubin 0.5 MG/DL (0.2-1.0) Aspartate Amino Transf (AST/SGOT) 83 U/L (15-37) H Alanine Aminotransferase (ALT/SGPT) 51 U/L (12-78) Alkaline Phosphatase 486 U/L (46-116) H Total Protein 6.0 G/DL (6.4-8.2) L Albumin 1.3 G/DL (3.4-5.0) L Globulin 4.7 g/dL Albumin/Globulin Ratio 0.3 (1.0-2.7) L Plan Problems: (1) Decubitus skin ulcer Assessment & Plan: Pt presented on admission with contractures, multiple pressure injuries .Pt noted to have 3 pressure injuries L elbow. Laterally L elbow -Full thickness pressure injury with 40% slough at base of wound,60% beefy red. Small amt sanguineous exudate noted(L)1.4cm x (W)2.1cm. Pressure injury L elbow (proximal) (L)0.5cm x (W)1cm . Scattered biofilm at base of wound , borders are macerated.(Inferior) (L)0.4cm x (W)0.5cm . Base of wound moist with Biofilm. Small amt serous exudate noted. (L)0.4cm x (W)0.5cm. Full thickness sacral pressure injury. Base of wound is pink- moist with scattered biofilm,(+) maceration along borders. Non-blanching erythema without induration periwound (L)11.2cm x (W)4.5cm x (D)0.4cm. Two additional pressure injuries noted to L and R sacrum. Partial thickness L sacral pressure injury. Base of wound is moist and viable. Edges are macerated with surrounding non-blanching erythema without induration or elevation in skin temp.(L)0.9cm x (W)1.3cm.R sacral partial thickness pressure injury. Base of wound is moist and viable. Edges flat and adherent to base of wound. Non- blanching erythema without induration or elevation in skin temp.(L)2cm x (W) 1.5cm. Partial thickness pressure injury to outer R buttocks. base of wound moist and viable. Edges flat and adherent to base of wound. Non-blanching erythema periwound.(L)2.3cm x (W)2.5cm. Partial thickness pressure injury inferior but in close proximity R buttocks (L) 2cm x (W)2cm . Base of wound is moist and viable. Surrounding non-blanching erythema without induration. Erythematous and indurated area noted to L groin. No elevation in skin temp noted. Scrotal sac is also erythematous. Non-blanching erythema with fluctuance R hallux. (L)1.6cm x (W)1.7cm. Pressure injury dorsal R foot . Base of wound moist with small amt of Biofilm.(+ ) maceration along borders.(L)1.5cm x (W)1.7cm. R 1st metatarsal necrotic with soft center with slough . Small amt seropurulent exudate noted. Marginal erythema along borders. (L)1.5cm x (W)1.5cm. Non-blanching erythema without induration or fluctuance lateral malleolus(L) 2.5cm x (W)2.5cm. L heel is boggy with non-blanching erythema. R heel is boggy but pink and easily blanchable. Tx.plan: Cleanse Sacral wound with Saline. Apply Therahoney. Apply Triad Paste periwound. Cover with Optifoam drsg. Change every 3 days and prn. Apply Triad paste to pressure injuries R and L sacrum and R outer Buttocks. Cover wounds with Optifoam drsg. Change every 3 days and prn. Apply Triad paste to groin and scrotum with each incontinence care. Cleanse wounds L elbow with saline. Apply Therahoney to wounds. Cover with Optifoam drsg. Change every 3 days and prn. Apply Betadine to wounds dorsal R foot and R 1st metatarsal . Cover with Optifoam drsg. Change daily and prn. Apply Cavilon to R hallux, R and L malleoli and both heels. Cover each site with Optifoam drsgs. Change every 7 days and prn. APM/RENETTA Mattress overlay. Reposition at least every 2hours or as tolerated. Off-load heels with Pillow. Place pillow between knees. (2) Septic shock Assessment & Plan: Leukocytosis Lactic acidosis resolved off pressors on IV fluids Start tube feeds needs nutritional supplementation Rx as written ICU care and management will follow with recs thank you (3) Feeding by G-tube Assessment & Plan: DAILY ESTIMATED NEEDS: Needs based on Critical care, wound 68kg 22-30 kcals/kg 5146-0397 total kcals 1.25-2 g protein/kg 85-136 g total protein 25-30 mL/kg 7247-2623 total fluid mLs NUTRITION DIAGNOSIS: 1) Swallowing difficulty R/T respiratory status as evidenced by pt vent dep via trach, PEG dep, on TF. 2) Increased kcal/prot needs R/T wound healing as evidenced by pt admitted w/ multiple wounds, including open sacral wound, eval pending. ENTERAL NUTRITION RECOMMENDATIONS: Vital AF 1.2 @55ml x24 hrs to provide 1320ml, 1584kcal, 99g prot, 1071ml free H20 * As medically appropriate w/ hemodynamic stability, rec elemental formula of Vital for GI tolerance. * Initiate VITAL 1.2 @ 15ml/hr x 6 hrs, advance 10ml q 4-6 hrs as tolerated to goal rate. * HOB >30 degrees/ water flushes per MD ADDITIONAL RECOMMENDATIONS: 1) Maintain calibrated bed scale wts 2) Wound healing: add Darryl 1pkt BID w/ TF order Add Vit C 250mg daily (f/up w/ WC eval) 3) F/up w/ H&P 4) Lytes daily, replete as needed (4) Vegetative state Jimmy Tang Jan 25, 2019 12:58
--- NOTE | 2019-01-25 13:32 | Urology Progress Note ---
Assessment/Plan Status: unchanged Assessment/Plan: 1. Sepsis. 2. Incontinence. 3. Neurogenic bladder. 4. Proteinuria. 5. Hematuria. 6. Pyuria. 7. History of nephrolithiasis. 8. Urethral stricture. maintain hernández, do not remove hand irrigated and do PRN f/u on final blood cx abx as ordered, ID on case Subjective Allergies: Coded Allergies: OXYTETRACYCLINE (Unverified Allergy, Unknown, 09/05/13) PENICILLINS (Unverified Allergy, Unknown, 06/11/17) Tolerated one dose of Cefepime 06/07/17 Tolerated Cefdinir 06/10/17 Uncoded Allergies: PLASTIC TAPE (Allergy, Mild, ITCHINESS, 08/08/15) MEDICAL TAPE (Allergy, Unknown, 12/10/16) Subjective all noted Objective Last 24 Hour Vital Signs Date Time Temp Pulse Resp B/P (MAP) Pulse Ox O2 Delivery O2 Flow Rate FiO2 01/25/19 13:17 120 22 30 01/25/19 11:26 119 30 30 01/25/19 09:02 125 28 30 01/25/19 08:00 30 01/25/19 08:00 99.1 100 24 90/51 (64) 100 01/25/19 08:00 Mechanical Ventilator 01/25/19 07:33 114 01/25/19 06:55 130 24 30 01/25/19 04:44 134 30 30 01/25/19 04:00 98.2 125 26 103/56 (72) 100 01/25/19 04:00 Mechanical Ventilator 01/25/19 04:00 142 01/25/19 04:00 30 01/25/19 03:16 130 28 30 01/25/19 01:13 99.0 01/25/19 01:06 135 30 30 01/25/19 00:00 30 01/25/19 00:00 101.7 132 29 107/57 (74) 100 01/25/19 00:00 Mechanical Ventilator 01/25/19 00:00 148 01/24/19 23:11 145 118/76 01/24/19 22:48 120 31 30 01/24/19 21:04 117 28 30 01/24/19 20:00 129 01/24/19 20:00 Mechanical Ventilator 01/24/19 20:00 30 01/24/19 20:00 98.0 135 26 118/76 (90) 98 01/24/19 19:10 122 30 30 01/24/19 18:00 30 01/24/19 17:11 123 28 30 01/24/19 16:00 98.0 120 24 116/72 (87) 100 01/24/19 16:00 Mechanical Ventilator 01/24/19 16:00 117 01/24/19 15:02 115 28 30 01/24/19 15:00 97.8 117 20 102/63 (76) 100 01/24/19 14:00 111 19 98/65 (76) 100 Intake and Output 01/24/19 01/25/19 19:00 07:00 Intake Total 1832.499 ml 1015 ml Output Total 585 ml 650 ml Balance 1247.499 ml 365 ml Free Water 150 ml IV Total 1487.499 ml 605 ml Tube Feeding 165 ml 410 ml Other 30 ml Output Urine Total 535 ml 250 ml Stool Total 50 ml 400 ml Microbiology Date/Time Source Procedure Growth Status 01/22/19 02:10 Blood Blood Culture - Preliminary Klebsiella Pneumoniae Esbl Resulted 01/22/19 02:10 Nasal Nares MRSA Culture - Final NO METHICILLIN RESISTANT STAPH AUREUS... Complete 01/22/19 17:23 Stool Clostridium difficile Toxin Assay - Final Complete 01/22/19 04:45 Urine,Clean Catch Urine Culture - Final Enterococcus Faecalis - Vre Complete 01/22/19 02:10 Rectum - Final Escherichia Coli - Cre Complete Current Medications Medications (Trade) Dose Ordered Sig/Sima Route PRN Reason Start Time Stop Time Status Last Admin Dose Admin Acetaminophen (Tylenol) 650 mg Q4H PRN GT Mild Pain/Temp > 100.5 01/24/19 15:28 02/23/19 15:27 01/25/19 00:43 Acetaminophen/ Hydrocodone Bitart ([place] 10/325) 1 tab Q4H PRN GT For Pain 01/24/19 15:29 01/31/19 15:28 01/24/19 20:32 Albuterol Sulfate (Proventil) 2.5 mg Q6HRT HHN 01/24/19 19:00 01/27/19 06:59 Ascorbic Acid (Vitamin C) 250 mg DAILY GT 01/25/19 09:00 02/24/19 08:59 01/25/19 09:34 Chlorhexidine Gluconate (Paulina-Hex 2%) 1 applic DAILY@2000 TOPIC 01/24/19 20:00 02/21/19 19:59 01/24/19 20:32 Daptomycin 400 mg/ Sodium Chloride 55 ml @ 100 mls/hr Q24H IV 01/24/19 17:00 01/31/19 16:59 01/24/19 17:16 Dextrose (Dextrose 50%) 25 ml Q30M PRN IV Hypoglycemia 01/24/19 15:30 02/21/19 06:29 Dextrose (Dextrose 50%) 50 ml Q30M PRN IV Hypoglycemia 01/24/19 15:30 02/21/19 06:29 Dextrose/Sodium Chloride 1,000 ml @ 50 mls/hr Q20H IV 01/24/19 15:27 02/23/19 15:26 01/25/19 12:33 Docusate Sodium (Colace) 100 mg DAILYPRN PRN NG constipation 01/25/19 09:00 02/24/19 08:59 Famotidine (Pepcid I.v.) 20 mg Q12HR IVP 01/24/19 21:00 02/23/19 20:59 01/25/19 09:33 Insulin Aspart (NovoLOG) BEFORE MEALS AND HS SUBQ 01/24/19 16:30 02/21/19 07:29 01/25/19 12:31 Meropenem 1 gm/ Sodium Chloride 55 ml @ 110 mls/hr Q12H IVPB 01/24/19 17:00 01/29/19 16:59 01/25/19 06:00 Midodrine (Pro-Amatine) 2.5 mg THREE TIMES A DAY GT 01/24/19 18:00 02/21/19 12:59 01/25/19 09:34 Polyethylene Glycol (Miralax) 17 gm BEDTIME GT 01/24/19 21:00 02/21/19 20:59 Tamsulosin HCl (Flomax) 0.4 mg BID ORAL 01/24/19 18:00 02/21/19 09:59 01/25/19 09:34 Vancomycin HCl (Firvanq) 125 mg FOUR TIMES A DAY GT 01/24/19 18:00 02/02/19 09:01 01/25/19 09:34 Laboratory Tests 01/25/19 04:00: White Blood Count 32.7*H, Red Blood Count 4.14L, Hemoglobin 12.1L, Hematocrit 36.8L, Mean Corpuscular Volume 89, Mean Corpuscular Hemoglobin 29.3, Mean Corpuscular Hemoglobin Concent 32.9, Red Cell Distribution Width 14.4, Platelet Count 282, Mean Platelet Volume 7.4, Neutrophils (%) (Auto) , Lymphocytes (%) ( Auto) , Monocytes (%) (Auto) , Eosinophils (%) (Auto) , Basophils (%) (Auto) , Differential Total Cells Counted 100, Neutrophils % (Manual) 84H, Lymphocytes % (Manual) 3L, Monocytes % (Manual) 7, Eosinophils % (Manual) 0, Basophils % ( Manual) 0, Band Neutrophils 6, Platelet Estimate Adequate, Platelet Morphology Normal, Sodium Level 139, Potassium Level 4.4#, Chloride Level 111H, Carbon Dioxide Level 17L, Anion Gap 11, Blood Urea Nitrogen 20H, Creatinine 0.7, Estimat Glomerular Filtration Rate > 60, Glucose Level 247H, Calcium Level 7.8L , Phosphorus Level 2.7, Magnesium Level 1.8, Total Bilirubin 0.5, Aspartate Amino Transf (AST/SGOT) 83H, Alanine Aminotransferase (ALT/SGPT) 51, Alkaline Phosphatase 486H, Total Protein 6.0L, Albumin 1.3L, Globulin 4.7, Albumin/ Globulin Ratio 0.3L Height (Feet): 5 Height (Inches): 6.00 Weight (Pounds): 153 Objective exam stable hernández indwelling, urine yellow/abhay no active bleeding at meatus renal u/s (01/23) noted Jake Pierre MD Jan 25, 2019 13:32
--- NOTE | 2019-01-25 14:55 | Nephrology Progress Note ---
Assessment/Plan Problem List: (1) Hypokalemia (2) HARDEEP (acute kidney injury) (3) Sepsis (4) Hyponatremia Assessment HARDEEP (acute kidney injury) HypoNatremia Septic shock Others: HCAP (healthcare-associated pneumonia) Chronic respiratory failure Ventilator dependence Vegetative state History of CVA (cerebrovascular accident) Feeding by G-tube HTN (hypertension) Cerebral vascular disease Plan K Phos mag as needed Hydrate monitor renal parameters Midodrine Antibiotics Avoid nephrotoxics Brooks could not be put in due to resistance start flomax per order Subjective ROS Limited/Unobtainable: Yes Objective Objective Last 24 Hour Vital Signs Date Time Temp Pulse Resp B/P (MAP) Pulse Ox O2 Delivery O2 Flow Rate FiO2 01/25/19 13:17 120 22 30 01/25/19 12:00 98.1 58 24 99/64 (76) 98 01/25/19 11:26 119 30 30 01/25/19 09:02 125 28 30 01/25/19 08:00 30 01/25/19 08:00 99.1 100 24 90/51 (64) 100 01/25/19 08:00 Mechanical Ventilator 01/25/19 07:33 114 01/25/19 06:55 130 24 30 01/25/19 04:44 134 30 30 01/25/19 04:00 98.2 125 26 103/56 (72) 100 01/25/19 04:00 Mechanical Ventilator 01/25/19 04:00 142 01/25/19 04:00 30 01/25/19 03:16 130 28 30 01/25/19 01:13 99.0 01/25/19 01:06 135 30 30 01/25/19 00:00 30 01/25/19 00:00 101.7 132 29 107/57 (74) 100 01/25/19 00:00 Mechanical Ventilator 01/25/19 00:00 148 01/24/19 23:11 145 118/76 01/24/19 22:48 120 31 30 01/24/19 21:04 117 28 30 01/24/19 20:00 129 01/24/19 20:00 Mechanical Ventilator 01/24/19 20:00 30 01/24/19 20:00 98.0 135 26 118/76 (90) 98 01/24/19 19:10 122 30 30 01/24/19 18:00 30 01/24/19 17:11 123 28 30 01/24/19 16:00 98.0 120 24 116/72 (87) 100 01/24/19 16:00 Mechanical Ventilator 01/24/19 16:00 117 01/24/19 15:02 115 28 30 01/24/19 15:00 97.8 117 20 102/63 (76) 100 Intake and Output 01/24/19 01/25/19 19:00 07:00 Intake Total 1832.499 ml 1015 ml Output Total 585 ml 650 ml Balance 1247.499 ml 365 ml Free Water 150 ml IV Total 1487.499 ml 605 ml Tube Feeding 165 ml 410 ml Other 30 ml Output Urine Total 535 ml 250 ml Stool Total 50 ml 400 ml Laboratory Tests 01/25/19 04:00: White Blood Count 32.7*H, Red Blood Count 4.14L, Hemoglobin 12.1L, Hematocrit 36.8L, Mean Corpuscular Volume 89, Mean Corpuscular Hemoglobin 29.3, Mean Corpuscular Hemoglobin Concent 32.9, Red Cell Distribution Width 14.4, Platelet Count 282, Mean Platelet Volume 7.4, Neutrophils (%) (Auto) , Lymphocytes (%) ( Auto) , Monocytes (%) (Auto) , Eosinophils (%) (Auto) , Basophils (%) (Auto) , Differential Total Cells Counted 100, Neutrophils % (Manual) 84H, Lymphocytes % (Manual) 3L, Monocytes % (Manual) 7, Eosinophils % (Manual) 0, Basophils % ( Manual) 0, Band Neutrophils 6, Platelet Estimate Adequate, Platelet Morphology Normal, Sodium Level 139, Potassium Level 4.4#, Chloride Level 111H, Carbon Dioxide Level 17L, Anion Gap 11, Blood Urea Nitrogen 20H, Creatinine 0.7, Estimat Glomerular Filtration Rate > 60, Glucose Level 247H, Calcium Level 7.8L , Phosphorus Level 2.7, Magnesium Level 1.8, Total Bilirubin 0.5, Aspartate Amino Transf (AST/SGOT) 83H, Alanine Aminotransferase (ALT/SGPT) 51, Alkaline Phosphatase 486H, Total Protein 6.0L, Albumin 1.3L, Globulin 4.7, Albumin/ Globulin Ratio 0.3L Height (Feet): 5 Height (Inches): 6.00 Weight (Pounds): 153 General Appearance: no apparent distress EENT: other - trach-vent Cardiovascular: tachycardia Respiratory/Chest: decreased breath sounds Abdomen: distended Sergey Rivera MD Jan 25, 2019 14:55
--- NOTE | 2019-01-25 15:15 | Infectious Diseases Prog Note ---
Assessment/Plan Assessment/Plan 63 yo male who was sent to the ED on 01/21/19 for hypotension, fever and respiratory distress. Fever, SP Leukocytosis, fluctuating Gram negative Sepsis 01/22 BCx: ESBL K pneumoniae, GPC 01/22 CXR: bilateral opacities 01/22 UA positive. UCx VRE 01/23 CXR: Redemonstration of bibasilar patchy airspace opacities. Unchanged pulmonary vascular congestion. No pneumothorax. Stable small left pleural effusion. 01/24 Bcx: P 01/22 C diff positive VRE colonization DM COPD CVA Dementia Parkinsons Cardiac issues Vent dependent with trach G tube PLAN: - continue meropenem #4 - continue vancomycin PO #3 - Daptomycin #2 - 01/24 DC vancomycin IV #2 - f/u cultures - f/u repeat blood cultures - Monitor CBC and Temps Thank you for this consult. [facility] will continue to follow the patient with you during this hospitalization. Subjective Allergies: Coded Allergies: OXYTETRACYCLINE (Unverified Allergy, Unknown, 09/05/13) PENICILLINS (Unverified Allergy, Unknown, 06/11/17) Tolerated one dose of Cefepime 06/07/17 Tolerated Cefdinir 06/10/17 Uncoded Allergies: PLASTIC TAPE (Allergy, Mild, ITCHINESS, 08/08/15) MEDICAL TAPE (Allergy, Unknown, 12/10/16) Subjective Tmax 101.7 FiO2 65% Leukocytosis persistent Objective Vital Signs Last 24 Hour Vital Signs Date Time Temp Pulse Resp B/P (MAP) Pulse Ox O2 Delivery O2 Flow Rate FiO2 01/25/19 13:17 120 22 30 01/25/19 12:00 98.1 58 24 99/64 (76) 98 01/25/19 11:26 119 30 30 01/25/19 09:02 125 28 30 01/25/19 08:00 30 01/25/19 08:00 99.1 100 24 90/51 (64) 100 01/25/19 08:00 Mechanical Ventilator 01/25/19 07:33 114 01/25/19 06:55 130 24 30 01/25/19 04:44 134 30 30 01/25/19 04:00 98.2 125 26 103/56 (72) 100 01/25/19 04:00 Mechanical Ventilator 01/25/19 04:00 142 01/25/19 04:00 30 01/25/19 03:16 130 28 30 01/25/19 01:13 99.0 01/25/19 01:06 135 30 30 01/25/19 00:00 30 01/25/19 00:00 101.7 132 29 107/57 (74) 100 01/25/19 00:00 Mechanical Ventilator 01/25/19 00:00 148 01/24/19 23:11 145 118/76 01/24/19 22:48 120 31 30 01/24/19 21:04 117 28 30 01/24/19 20:00 129 01/24/19 20:00 Mechanical Ventilator 01/24/19 20:00 30 01/24/19 20:00 98.0 135 26 118/76 (90) 98 01/24/19 19:10 122 30 30 01/24/19 18:00 30 01/24/19 17:11 123 28 30 01/24/19 16:00 98.0 120 24 116/72 (87) 100 01/24/19 16:00 Mechanical Ventilator 01/24/19 16:00 117 Height (Feet): 5 Height (Inches): 6.00 Weight (Pounds): 153 Objective Gen: NAD CV: RRR Resp: coarse. ventilatory sounds Abd: soft. Distended. Hypoactive BS+. G tube Ext: contracted Neuro: not alert Microbiology Date/Time Source Procedure Growth Status 01/22/19 17:23 Stool Clostridium difficile Toxin Assay - Final Complete Laboratory Tests Test 01/25/19 04:00 White Blood Count 32.7 K/UL (4.8-10.8) *H Red Blood Count 4.14 M/UL (4.70-6.10) L Hemoglobin 12.1 G/DL (14.2-18.0) L Hematocrit 36.8 % (42.0-52.0) L Mean Corpuscular Volume 89 FL (80-99) Mean Corpuscular Hemoglobin 29.3 PG (27.0-31.0) Mean Corpuscular Hemoglobin Concent 32.9 G/DL (32.0-36.0) Red Cell Distribution Width 14.4 % (11.6-14.8) Platelet Count 282 K/UL (150-450) Mean Platelet Volume 7.4 FL (6.5-10.1) Neutrophils (%) (Auto) % (45.0-75.0) Lymphocytes (%) (Auto) % (20.0-45.0) Monocytes (%) (Auto) % (1.0-10.0) Eosinophils (%) (Auto) % (0.0-3.0) Basophils (%) (Auto) % (0.0-2.0) Differential Total Cells Counted 100 Neutrophils % (Manual) 84 % (45-75) H Lymphocytes % (Manual) 3 % (20-45) L Monocytes % (Manual) 7 % (1-10) Eosinophils % (Manual) 0 % (0-3) Basophils % (Manual) 0 % (0-2) Band Neutrophils 6 % (0-8) Platelet Estimate Adequate Platelet Morphology Normal Sodium Level 139 MMOL/L (136-145) Potassium Level 4.4 MMOL/L (3.5-5.1) # Chloride Level 111 MMOL/L (98-107) H Carbon Dioxide Level 17 MMOL/L (21-32) L Anion Gap 11 mmol/L (5-15) Blood Urea Nitrogen 20 mg/dL (7-18) H Creatinine 0.7 MG/DL (0.55-1.30) Estimat Glomerular Filtration Rate > 60 mL/min (>60) Glucose Level 247 MG/DL (74-106) H Calcium Level 7.8 MG/DL (8.5-10.1) L Phosphorus Level 2.7 MG/DL (2.5-4.9) Magnesium Level 1.8 MG/DL (1.8-2.4) Total Bilirubin 0.5 MG/DL (0.2-1.0) Aspartate Amino Transf (AST/SGOT) 83 U/L (15-37) H Alanine Aminotransferase (ALT/SGPT) 51 U/L (12-78) Alkaline Phosphatase 486 U/L (46-116) H Total Protein 6.0 G/DL (6.4-8.2) L Albumin 1.3 G/DL (3.4-5.0) L Globulin 4.7 g/dL Albumin/Globulin Ratio 0.3 (1.0-2.7) L Current Medications Medications (Trade) Dose Ordered Sig/Sima Route PRN Reason Start Time Stop Time Status Last Admin Dose Admin Acetaminophen (Tylenol) 650 mg Q4H PRN GT Mild Pain/Temp > 100.5 01/24/19 15:28 02/23/19 15:27 01/25/19 00:43 Acetaminophen/ Hydrocodone Bitart ([place] ) 1 tab Q4H PRN GT For Pain 01/24/19 15:29 01/31/19 15:28 01/24/19 20:32 Albuterol Sulfate (Proventil) 2.5 mg Q6HRT HHN 01/24/19 19:00 01/27/19 06:59 Ascorbic Acid (Vitamin C) 250 mg DAILY GT 01/25/19 09:00 02/24/19 08:59 01/25/19 09:34 Chlorhexidine Gluconate (Paulina-Hex 2%) 1 applic DAILY@2000 TOPIC 01/24/19 20:00 02/21/19 19:59 01/24/19 20:32 Daptomycin 400 mg/ Sodium Chloride 55 ml @ 100 mls/hr Q24H IV 01/24/19 17:00 01/31/19 16:59 01/24/19 17:16 Dextrose (Dextrose 50%) 25 ml Q30M PRN IV Hypoglycemia 01/24/19 15:30 02/21/19 06:29 Dextrose (Dextrose 50%) 50 ml Q30M PRN IV Hypoglycemia 01/24/19 15:30 02/21/19 06:29 Dextrose/Sodium Chloride 1,000 ml @ 50 mls/hr Q20H IV 01/24/19 15:27 02/23/19 15:26 01/25/19 12:33 Docusate Sodium (Colace) 100 mg DAILYPRN PRN NG constipation 01/25/19 09:00 02/24/19 08:59 Famotidine (Pepcid I.v.) 20 mg Q12HR IVP 01/24/19 21:00 02/23/19 20:59 01/25/19 09:33 Insulin Aspart (NovoLOG) BEFORE MEALS AND HS SUBQ 01/24/19 16:30 02/21/19 07:29 01/25/19 12:31 Meropenem 1 gm/ Sodium Chloride 55 ml @ 110 mls/hr Q12H IVPB 01/24/19 17:00 01/29/19 16:59 01/25/19 06:00 Midodrine (Pro-Amatine) 2.5 mg THREE TIMES A DAY GT 01/24/19 18:00 02/21/19 12:59 01/25/19 14:11 Polyethylene Glycol (Miralax) 17 gm BEDTIME GT 01/24/19 21:00 02/21/19 20:59 Tamsulosin HCl (Flomax) 0.4 mg BID ORAL 01/24/19 18:00 02/21/19 09:59 01/25/19 09:34 Vancomycin HCl (Firvanq) 125 mg FOUR TIMES A DAY GT 01/24/19 18:00 02/02/19 09:01 01/25/19 14:11 Mukesh Betancourt MD Jan 25, 2019 15:14
[2019-01-25 16:00] VITALS: BP 101/69
[2019-01-25] MEDS: DAPTOmycin 400 MG in NS 55 ML IV SCH (18:22)
--- NOTE | 2019-01-25 19:27 | NUR ---
HAND-OFF: Report given to Indy Hill. Pt. remain stable.
--- NOTE | 2019-01-25 19:38 | NUR ---
NURSE NOTES: Received patient from GEOVANNA Garcia. patient is observed in bed, obtunded, unable to make needs known. no s/sx of pain noted at this time. vent to trach settings are as follows: Portex: 7, AC: 16, TV: 500, FiO2: 30%, PEEP: 5. no s/sx of respiratory distress noted at this time. G-tube site is patent and intact, running Vital AF at 55 cc/hr. HOB elevated, no residual noted. Rectal tube and F/C patent and intact, draining well to gravity. skin alterations noted. IV site RIJ patent and intact, running D5NS at 50cc/hr. bed in lowest position and locked, padded siderails up X3, call light within reach. will continue to monitor.
[2019-01-25 20:00] VITALS: BP 105/76
[2019-01-25] MEDS: Dyna-Hex 2% Top Sol 2oz TOPIC SCH (20:34)
[2019-01-25] MEDS: Miralax 17gm pkt GT SCH (20:35)
[2019-01-25] MEDS ORDERED: Tubing IV Secondary IV ONE (22:31)
[2019-01-25] MEDS ORDERED: D5NS 1000ml IV ONE (22:31)
[2019-01-25] MEDS ORDERED: Sterile Water Irrig 1000ml IRRIG ONE (22:31)
[2019-01-25] MEDS ORDERED: Tubing IV Blood Pump IV ONE (22:31)
[2019-01-25] MEDS ORDERED: NS 275ml ONE (22:31)
[2019-01-26] VITALS: BP 110/74
[2019-01-26] MEDS: Albuterol ud Inhalation HHN SCH ×4 (01:00→19:06)
--- NOTE | 2019-01-26 03:15 | Progress Note ---
DATE: 01/25/2019 SUBJECTIVE: The patient is alert, afebrile, and hemodynamically stable. His eyes are open and no eye contact. His upper and lower extremities are contracted. PHYSICAL EXAMINATION: VITAL SIGNS: Blood pressure 105/76, pulse 117, respirations 29, and temperature 98.6. HEENT: Eyes were normal. ENT, mucous membranes were moist and intact. NECK: Supple with no JVD without lymph nodes. Tracheostomy site is clean. LUNGS: Clear without rhonchi, rales, or wheezing. Secretions are small, thin, and white. HEART: Normal sounds with regular beats. There is no S3, S4, or pericardial rub. ABDOMEN: Soft, nontender with normal bowel sounds. Gastrostomy site is clean. EXTREMITIES: Warm without cyanosis, clubbing, or edema. LABORATORY AND DIAGNOSTIC DATA: Hemoglobin is 12.9, hematocrit 38.9, MCV 89, WBC 32.7, and platelets . BUN and creatinine 20 and 0.7 respectively. His sodium is 139, potassium 4.4, chloride 111, CO2 is 17. His calcium is 7.8. His phosphorus is 2.7 and magnesium is 1.5. IMPRESSION: The patient has leukocytosis secondary to in this patient. The patient currently is on vancomycin p.o. and meropenem. Repeat laboratory tests will be done in the a.m. Boris Arevalo M.D. DR: AMY JOB#: [id number] CC:
[2019-01-26 04:00] VITALS: BP 113/58
[2019-01-26] MEDS: Meropenem 1 GM in NS 55 ML IVPB SCH ×2 (05:16→16:59)
[2019-01-26 05:34] LABS: ALANINE AMINOTRANSFERASE 62 U/L (12-78); ALBUMIN 1.1 G/DL (3.4-5.0); ALBUMIN/GLOBULIN RATIO 0.3 (1.0-2.7); ALKALINE PHOSPHATASE 490 U/L (46-116); ANION GAP 8 mmol/L (5-15); ASPARTATE AMINO TRANSFERASE 91 U/L (15-37); BILIRUBIN,TOTAL 0.4 MG/DL (0.2-1.0); BLOOD UREA NITROGEN 22 mg/dL (7-18); CALCIUM 7.4 MG/DL (8.5-10.1); CARBON DIOXIDE 22 MMOL/L (21-32); CHLORIDE 114 MMOL/L (98-107); CREATININE 0.6 MG/DL (0.55-1.30); PHOSPHORUS 1.8 MG/DL (2.5-4.9); POTASSIUM 3.3 MMOL/L (3.5-5.1); SODIUM 143 MMOL/L (136-145)
[2019-01-26 05:38] LABS: HEMATOCRIT 33.3 % (42.0-52.0); HEMOGLOBIN 10.9 G/DL (14.2-18.0); MEAN CORPUSCULAR VOLUME 89 FL (80-99); PLATELET COUNT 263 K/UL (150-450); RED BLOOD COUNT 3.75 M/UL (4.70-6.10); RED CELL DISTRIBUTION WIDTH 14.5 % (11.6-14.8)
[2019-01-26] MEDS: NovoLOG Insulin Flexpen SUBQ SCH ×4 (06:18→23:15)
[2019-01-26 06:36] LABS: WHITE BLOOD COUNT 27.5 K/UL (4.8-10.8)
--- NOTE | 2019-01-26 06:51 | NUR ---
NURSE NOTES: left message for Dr. Arevalo regarding abnormal labs. awaiting call back.
--- NOTE | 2019-01-26 07:24 | NUR ---
HAND-OFF: Report given to GEOVANNA Montemayor. patient is in stable condition.
--- NOTE | 2019-01-26 07:25 | NUR ---
NURSE NOTES: Received pt from GEOVANNA Antonio in stable condition with no cardiopulmonary distress noted. Pt is awake in bed, obtunded, trache to vent, Portex 7, AC 16 TV 500 FiO2 30% Peep 5. GT noted running Vital AF 1.2 at 55cc/hr. F/C noted draining yellow urine. Pt has a rectal tube draining dark brown/black liquid stool. Skin alterations noted. Pt has a RIJ running D5NS at 50 cc/hr. Side rails padded per seizure precaution and up x 2. Bed in lowest position, alarm on, call light within reach. Will continue to monitor pt. Dr. Bazan at bedside and is added as consult, he is aware of WBC count today. Left message for Dr. Rudd also about potassium, magnesium, and phos leve today. Per Dr. Rudd, Dr. Rivera will be in today to review labs and place orders. Addendum: 01/26/19 at 2 by Albina Salinas RN Late Entry: Dr Bazan informed that pt does not have pharmacological DVT prophylaxis pending OBS results (stool is black/brown).
[2019-01-26] MEDS: D5NS 1,000 ML IV SCH (07:26)
[2019-01-26 08:00] VITALS: BP 107/66
[2019-01-26] MEDS: Ascorbic Acid 500mg tab GT SCH (09:26)
[2019-01-26] MEDS: Tamsulosin 0.4mg cap ORAL SCH ×2 (09:27→17:01)
[2019-01-26] MEDS: Vancomycin oral 125mg/2.5ml GT SCH ×4 (09:27→21:01)
[2019-01-26] MEDS ORDERED: Potassium Phosphate 30 MM in NS 275 ML IV ONE (10:30)
--- NOTE | 2019-01-26 10:56 | Urology Progress Note ---
Assessment/Plan Status: unchanged Assessment/Plan: 1. Sepsis. 2. Incontinence. 3. Neurogenic bladder. 4. Proteinuria. 5. Hematuria. 6. Pyuria. 7. History of nephrolithiasis. 8. Urethral stricture. maintain hernández, do not remove switch to larger size hernández at some point hand irrigated and do PRN f/u on final blood cx abx as ordered, ID on case Subjective Allergies: Coded Allergies: OXYTETRACYCLINE (Unverified Allergy, Unknown, 09/05/13) PENICILLINS (Unverified Allergy, Unknown, 06/11/17) Tolerated one dose of Cefepime 06/07/17 Tolerated Cefdinir 06/10/17 Uncoded Allergies: PLASTIC TAPE (Allergy, Mild, ITCHINESS, 08/08/15) MEDICAL TAPE (Allergy, Unknown, 12/10/16) Subjective all noted Objective Last 24 Hour Vital Signs Date Time Temp Pulse Resp B/P (MAP) Pulse Ox O2 Delivery O2 Flow Rate FiO2 01/26/19 10:44 133 30 65 01/26/19 09:18 131 30 65 01/26/19 08:00 Mechanical Ventilator 01/26/19 08:00 98.8 124 31 107/66 (80) 100 01/26/19 08:00 30 01/26/19 08:00 123 01/26/19 06:52 103 32 65 01/26/19 05:00 114 32 30 01/26/19 04:00 98.2 125 33 113/58 (76) 100 01/26/19 04:00 Mechanical Ventilator 01/26/19 04:00 120 01/26/19 04:00 30 01/26/19 02:50 121 33 30 01/26/19 01:05 126 28 30 01/26/19 00:00 30 01/26/19 00:00 99.0 121 31 110/74 (86) 100 01/26/19 00:00 118 01/26/19 00:00 Mechanical Ventilator 01/25/19 23:00 118 26 30 01/25/19 21:01 122 21 30 01/25/19 20:00 Mechanical Ventilator 01/25/19 20:00 98.6 117 29 105/76 (86) 100 01/25/19 20:00 117 01/25/19 20:00 30 01/25/19 19:13 121 27 30 01/25/19 17:28 114 28 30 01/25/19 16:00 30 01/25/19 16:00 98.9 117 24 101/69 (80) 99 01/25/19 16:00 Mechanical Ventilator 01/25/19 16:00 114 01/25/19 15:30 114 01/25/19 15:29 112 26 30 01/25/19 13:17 120 22 30 01/25/19 12:00 30 01/25/19 12:00 98.1 58 24 99/64 (76) 98 01/25/19 12:00 Mechanical Ventilator 01/25/19 11:29 116 01/25/19 11:26 119 30 30 Intake and Output 01/25/19 01/26/19 19:00 07:00 Intake Total 1200 ml 1355 ml Output Total 550 ml 725 ml Balance 650 ml 630 ml Free Water 200 ml 100 ml IV Total 450 ml 655 ml Tube Feeding 550 ml 600 ml Output Urine Total 450 ml 525 ml Stool Total 100 ml 200 ml Microbiology Date/Time Source Procedure Growth Status 01/24/19 17:30 Blood Blood Culture - Preliminary NO GROWTH AFTER 24 HOURS Resulted 01/22/19 02:10 Nasal Nares MRSA Culture - Final NO METHICILLIN RESISTANT STAPH AUREUS... Complete 01/22/19 17:23 Stool Clostridium difficile Toxin Assay - Final Complete 01/22/19 04:45 Urine,Clean Catch Urine Culture - Final Enterococcus Faecalis - Vre Complete 01/22/19 02:10 Rectum - Final Escherichia Coli - Cre Complete Current Medications Medications (Trade) Dose Ordered Sig/Sima Route PRN Reason Start Time Stop Time Status Last Admin Dose Admin Acetaminophen (Tylenol) 650 mg Q4H PRN GT Mild Pain/Temp > 100.5 01/24/19 15:28 02/23/19 15:27 01/25/19 00:43 Acetaminophen/ Hydrocodone Bitart ([place] 10/325) 1 tab Q4H PRN GT For Pain 01/24/19 15:29 01/31/19 15:28 01/24/19 20:32 Albuterol Sulfate (Proventil) 2.5 mg Q6HRT HHN 01/24/19 19:00 01/27/19 06:59 01/26/19 06:52 Ascorbic Acid (Vitamin C) 250 mg DAILY GT 01/25/19 09:00 02/24/19 08:59 01/26/19 09:26 Chlorhexidine Gluconate (Paulina-Hex 2%) 1 applic DAILY@2000 TOPIC 01/24/19 20:00 02/21/19 19:59 01/25/19 20:34 Daptomycin 400 mg/ Sodium Chloride 55 ml @ 100 mls/hr Q24H IV 01/24/19 17:00 01/31/19 16:59 01/25/19 18:22 Dextrose (Dextrose 50%) 25 ml Q30M PRN IV Hypoglycemia 01/24/19 15:30 02/21/19 06:29 Dextrose (Dextrose 50%) 50 ml Q30M PRN IV Hypoglycemia 01/24/19 15:30 02/21/19 06:29 Dextrose/Sodium Chloride 1,000 ml @ 50 mls/hr Q20H IV 01/24/19 15:27 02/23/19 15:26 01/26/19 07:26 Docusate Sodium (Colace) 100 mg DAILYPRN PRN NG constipation 01/25/19 09:00 02/24/19 08:59 Famotidine (Pepcid I.v.) 20 mg Q12HR IVP 01/24/19 21:00 02/23/19 20:59 01/26/19 09:26 Insulin Aspart (NovoLOG) Q6HR SUBQ 01/26/19 12:00 02/21/19 07:29 Meropenem 1 gm/ Sodium Chloride 55 ml @ 110 mls/hr Q12H IVPB 01/24/19 17:00 01/29/19 16:59 01/26/19 05:16 Metronidazole 100 ml @ 100 mls/hr Q8HR IVPB 01/26/19 14:00 02/02/19 13:59 Midodrine (Pro-Amatine) 2.5 mg THREE TIMES A DAY GT 01/24/19 18:00 02/21/19 12:59 01/26/19 09:27 Polyethylene Glycol (Miralax) 17 gm BEDTIME GT 01/24/19 21:00 02/21/19 20:59 01/25/19 20:35 Potassium Phosphate 30 mm/ Sodium Chloride 285 ml @ 47.5 mls/hr ONCE ONCE IV 01/26/19 10:30 01/26/19 16:29 01/26/19 10:32 Tamsulosin HCl (Flomax) 0.4 mg BID ORAL 01/24/19 18:00 02/21/19 09:59 01/26/19 09:27 Vancomycin HCl (Firvanq) 125 mg FOUR TIMES A DAY GT 01/24/19 18:00 02/02/19 09:01 01/26/19 09:27 Laboratory Tests 01/26/19 04:20: White Blood Count 27.5*H, Red Blood Count 3.75L, Hemoglobin 10.9L, Hematocrit 33.3L, Mean Corpuscular Volume 89, Mean Corpuscular Hemoglobin 29.1, Mean Corpuscular Hemoglobin Concent 32.8, Red Cell Distribution Width 14.5, Platelet Count 263, Mean Platelet Volume 7.2, Neutrophils (%) (Auto) , Lymphocytes (%) ( Auto) , Monocytes (%) (Auto) , Eosinophils (%) (Auto) , Basophils (%) (Auto) , Differential Total Cells Counted 100, Neutrophils % (Manual) 76H, Lymphocytes % (Manual) 12L, Monocytes % (Manual) 4, Eosinophils % (Manual) 5H, Basophils % ( Manual) 0, Band Neutrophils 3, Platelet Estimate Adequate, Platelet Morphology Normal, Sodium Level 143, Potassium Level 3.3L, Chloride Level 114H, Carbon Dioxide Level 22, Anion Gap 8, Blood Urea Nitrogen 22H, Creatinine 0.6, Estimat Glomerular Filtration Rate > 60, Glucose Level 239H, Calcium Level 7.4L, Phosphorus Level 1.8L, Magnesium Level 1.5L, Total Bilirubin 0.4, Aspartate Amino Transf (AST/SGOT) 91H, Alanine Aminotransferase (ALT/SGPT) 62, Alkaline Phosphatase 490H, Total Protein 5.2L, Albumin 1.1L, Globulin 4.1, Albumin/ Globulin Ratio 0.3L Height (Feet): 5 Height (Inches): 6.00 Weight (Pounds): 154 Objective exam stable hernández indwelling, urine yellow/abhay no active bleeding at meatus renal u/s (01/23) noted Jake Pierre MD Jan 26, 2019 10:56
--- NOTE | 2019-01-26 11:44 | General Progress Note ---
Assessment/Plan Status: unchanged Assessment/Plan: (1) Clostridium difficile diarrhea ICD Codes: A04.72 - Enterocolitis due to Clostridium difficile, not specified as recurrent SNOMED: 2165371250318 (2) Severe sepsis ICD Codes: A41.9 - Sepsis, unspecified organism; R65.20 - Severe sepsis without septic shock SNOMED: 48581929 (3) Feeding by G-tube ICD Codes: Z93.1 - Feeding by G-tube SNOMED: 155440309 (4) Diarrhea ICD Codes: R19.7 - Diarrhea, unspecified SNOMED: 32171780 (5) Upper GI bleed ICD Codes: K92.2 - Gastrointestinal hemorrhage, unspecified SNOMED: 30769897 Assessment/Plan No plans for GI procedures at this time given sepsis. Monitor H&H, PRN transfusions Occult blood to rule out any GI bleed Hold PPI given C. difficile H2B Antibiotics per infectious diseases for C. difficile IV hydration plus electrolyte correction GTF Follow labs Subjective ROS Limited/Unobtainable: No Allergies: Coded Allergies: OXYTETRACYCLINE (Unverified Allergy, Unknown, 09/05/13) PENICILLINS (Unverified Allergy, Unknown, 06/11/17) Tolerated one dose of Cefepime 06/07/17 Tolerated Cefdinir 06/10/17 Uncoded Allergies: PLASTIC TAPE (Allergy, Mild, ITCHINESS, 08/08/15) MEDICAL TAPE (Allergy, Unknown, 12/10/16) Objective Last 24 Hour Vital Signs Date Time Temp Pulse Resp B/P (MAP) Pulse Ox O2 Delivery O2 Flow Rate FiO2 01/26/19 10:44 133 30 65 01/26/19 09:18 131 30 65 01/26/19 08:00 Mechanical Ventilator 01/26/19 08:00 98.8 124 31 107/66 (80) 100 01/26/19 08:00 30 01/26/19 08:00 123 01/26/19 06:52 103 32 65 01/26/19 05:00 114 32 30 01/26/19 04:00 98.2 125 33 113/58 (76) 100 01/26/19 04:00 Mechanical Ventilator 01/26/19 04:00 120 01/26/19 04:00 30 01/26/19 02:50 121 33 30 01/26/19 01:05 126 28 30 01/26/19 00:00 30 01/26/19 00:00 99.0 121 31 110/74 (86) 100 01/26/19 00:00 118 01/26/19 00:00 Mechanical Ventilator 01/25/19 23:00 118 26 30 01/25/19 21:01 122 21 30 01/25/19 20:00 Mechanical Ventilator 01/25/19 20:00 98.6 117 29 105/76 (86) 100 01/25/19 20:00 117 01/25/19 20:00 30 01/25/19 19:13 121 27 30 01/25/19 17:28 114 28 30 01/25/19 16:00 30 01/25/19 16:00 98.9 117 24 101/69 (80) 99 01/25/19 16:00 Mechanical Ventilator 01/25/19 16:00 114 01/25/19 15:30 114 01/25/19 15:29 112 26 30 01/25/19 13:17 120 22 30 01/25/19 12:00 30 01/25/19 12:00 98.1 58 24 99/64 (76) 98 01/25/19 12:00 Mechanical Ventilator Intake and Output 01/25/19 01/26/19 19:00 07:00 Intake Total 1200 ml 1355 ml Output Total 550 ml 725 ml Balance 650 ml 630 ml Free Water 200 ml 100 ml IV Total 450 ml 655 ml Tube Feeding 550 ml 600 ml Output Urine Total 450 ml 525 ml Stool Total 100 ml 200 ml Laboratory Tests 01/26/19 04:20: White Blood Count 27.5*H, Red Blood Count 3.75L, Hemoglobin 10.9L, Hematocrit 33.3L, Mean Corpuscular Volume 89, Mean Corpuscular Hemoglobin 29.1, Mean Corpuscular Hemoglobin Concent 32.8, Red Cell Distribution Width 14.5, Platelet Count 263, Mean Platelet Volume 7.2, Neutrophils (%) (Auto) , Lymphocytes (%) ( Auto) , Monocytes (%) (Auto) , Eosinophils (%) (Auto) , Basophils (%) (Auto) , Differential Total Cells Counted 100, Neutrophils % (Manual) 76H, Lymphocytes % (Manual) 12L, Monocytes % (Manual) 4, Eosinophils % (Manual) 5H, Basophils % ( Manual) 0, Band Neutrophils 3, Platelet Estimate Adequate, Platelet Morphology Normal, Sodium Level 143, Potassium Level 3.3L, Chloride Level 114H, Carbon Dioxide Level 22, Anion Gap 8, Blood Urea Nitrogen 22H, Creatinine 0.6, Estimat Glomerular Filtration Rate > 60, Glucose Level 239H, Calcium Level 7.4L, Phosphorus Level 1.8L, Magnesium Level 1.5L, Total Bilirubin 0.4, Aspartate Amino Transf (AST/SGOT) 91H, Alanine Aminotransferase (ALT/SGPT) 62, Alkaline Phosphatase 490H, Total Protein 5.2L, Albumin 1.1L, Globulin 4.1, Albumin/ Globulin Ratio 0.3L Height (Feet): 5 Height (Inches): 6.00 Weight (Pounds): 154 General Appearance: no apparent distress EENT: normal ENT inspection Neck: supple Cardiovascular: normal rate Respiratory/Chest: decreased breath sounds Abdomen: normal bowel sounds, non tender, soft Extremities: non-tender Gaurav Rosas MD Jan 26, 2019 11:43
[2019-01-26 12:00] VITALS: BP 109/76
--- NOTE | 2019-01-26 12:19 | Nephrology Progress Note ---
Assessment/Plan Problem List: (1) Hypokalemia (2) HARDEEP (acute kidney injury) (3) Sepsis (4) Hyponatremia Assessment HARDEEP (acute kidney injury) HypoNatremia Septic shock Others: HCAP (healthcare-associated pneumonia) Chronic respiratory failure Ventilator dependence Vegetative state History of CVA (cerebrovascular accident) Feeding by G-tube HTN (hypertension) Cerebral vascular disease Plan K Phos mag as needed Hydrate monitor renal parameters Midodrine Antibiotics Avoid nephrotoxics Brooks could not be put in due to resistance start flomax per order Subjective ROS Limited/Unobtainable: Yes Objective Objective Last 24 Hour Vital Signs Date Time Temp Pulse Resp B/P (MAP) Pulse Ox O2 Delivery O2 Flow Rate FiO2 01/26/19 12:00 30 01/26/19 12:00 Mechanical Ventilator 01/26/19 12:00 133 01/26/19 10:44 133 30 65 01/26/19 09:18 131 30 65 01/26/19 08:00 Mechanical Ventilator 01/26/19 08:00 98.8 124 31 107/66 (80) 100 01/26/19 08:00 30 01/26/19 08:00 123 01/26/19 06:52 103 32 65 01/26/19 05:00 114 32 30 01/26/19 04:00 98.2 125 33 113/58 (76) 100 01/26/19 04:00 Mechanical Ventilator 01/26/19 04:00 120 01/26/19 04:00 30 01/26/19 02:50 121 33 30 01/26/19 01:05 126 28 30 01/26/19 00:00 30 01/26/19 00:00 99.0 121 31 110/74 (86) 100 01/26/19 00:00 118 01/26/19 00:00 Mechanical Ventilator 01/25/19 23:00 118 26 30 01/25/19 21:01 122 21 30 01/25/19 20:00 Mechanical Ventilator 01/25/19 20:00 98.6 117 29 105/76 (86) 100 01/25/19 20:00 117 01/25/19 20:00 30 01/25/19 19:13 121 27 30 01/25/19 17:28 114 28 30 01/25/19 16:00 30 01/25/19 16:00 98.9 117 24 101/69 (80) 99 11/5/19 16:00 Mechanical Ventilator 01/25/19 16:00 114 01/25/19 15:30 114 01/25/19 15:29 112 26 30 01/25/19 13:17 120 22 30 Intake and Output 01/25/19 01/26/19 19:00 07:00 Intake Total 1200 ml 1355 ml Output Total 550 ml 725 ml Balance 650 ml 630 ml Free Water 200 ml 100 ml IV Total 450 ml 655 ml Tube Feeding 550 ml 600 ml Output Urine Total 450 ml 525 ml Stool Total 100 ml 200 ml Laboratory Tests 01/26/19 04:20: White Blood Count 27.5*H, Red Blood Count 3.75L, Hemoglobin 10.9L, Hematocrit 33.3L, Mean Corpuscular Volume 89, Mean Corpuscular Hemoglobin 29.1, Mean Corpuscular Hemoglobin Concent 32.8, Red Cell Distribution Width 14.5, Platelet Count 263, Mean Platelet Volume 7.2, Neutrophils (%) (Auto) , Lymphocytes (%) ( Auto) , Monocytes (%) (Auto) , Eosinophils (%) (Auto) , Basophils (%) (Auto) , Differential Total Cells Counted 100, Neutrophils % (Manual) 76H, Lymphocytes % (Manual) 12L, Monocytes % (Manual) 4, Eosinophils % (Manual) 5H, Basophils % ( Manual) 0, Band Neutrophils 3, Platelet Estimate Adequate, Platelet Morphology Normal, Sodium Level 143, Potassium Level 3.3L, Chloride Level 114H, Carbon Dioxide Level 22, Anion Gap 8, Blood Urea Nitrogen 22H, Creatinine 0.6, Estimat Glomerular Filtration Rate > 60, Glucose Level 239H, Calcium Level 7.4L, Phosphorus Level 1.8L, Magnesium Level 1.5L, Total Bilirubin 0.4, Aspartate Amino Transf (AST/SGOT) 91H, Alanine Aminotransferase (ALT/SGPT) 62, Alkaline Phosphatase 490H, Total Protein 5.2L, Albumin 1.1L, Globulin 4.1, Albumin/ Globulin Ratio 0.3L Height (Feet): 5 Height (Inches): 6.00 Weight (Pounds): 154 General Appearance: no apparent distress EENT: other - vented Cardiovascular: tachycardia Respiratory/Chest: decreased breath sounds Sergey Rivera MD Jan 26, 2019 12:19
[2019-01-26] MEDS: Acetaminophen 650mg/20.3ml GT PRN (12:24)
--- NOTE | 2019-01-26 13:00 | NUR ---
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 98.8 HR 133 RR 31 B/P 101/66 AC 16 TV 500 FIO2 30% PEEP 5 WBC 27.5 K 3.3 ALK PHOS 490 IS: FLAGYL IV K-PHOS IV DAPTOMYCIN IV MEROPENEM IV IVF D5NS @ 50ML/HR VANCO GT STEP DOWN STATUS
--- NOTE | 2019-01-26 13:12 | NUR ---
RD ASSESSMENT & RECOMMENDATIONS SEE CARE ACTIVITY FOR COMPLETE ASSESSMENT DAILY ESTIMATED NEEDS: Needs based on Critical care, wound 68kg 22-30 kcals/kg 7502-7819 total kcals 1.25-2 g protein/kg 85-136 g total protein 25-30 mL/kg 8056-5647 total fluid mLs NUTRITION DIAGNOSIS: 1) Swallowing difficulty R/T respiratory status as evidenced by pt vent dep via trach, PEG dep, on TF. 2) Increased kcal/prot needs R/T wound healing as evidenced by pt admitted w/ multiple wounds, including full thickness wounds @ lt elbow and sacrum, refer to WC eval. CURRENT TF:Vital AF 1.2 @55ml x24 hrs ENTERAL NUTRITION RECOMMENDATIONS: Vital AF 1.2 @55ml x24 hrs to provide 1320ml, 1584kcal, 99g prot, 1071ml free H20 * Maintain current TF * HOB >30 degrees/ water flushes per MD ADDITIONAL RECOMMENDATIONS: 1) Maintain calibrated bed scale wts 2) Wound healing: add Darryl 1pkt BID continue Vit C 3) Consider DC D5 IVF, increase water flushes instead -> BGs elev, mostly in the 200's 4) Lytes daily, replete as needed (low K, phos, mag) .
--- NOTE | 2019-01-26 13:42 | NUR ---
NURSE NOTES: Dr. Rogers at bedside currently assessing pt. I informed her of patient's current vital signs including HR, RR, and Temp (possible severe sepsis). Dr. Rogers is aware and reviewed pt's medications and states pt is "covered" as far as antibiotics- no new orders will be placed at this time.
--- NOTE | 2019-01-26 14:49 | Pulmonolgy Critical Care Note ---
Critical Care - Asmt/Plan Problems: (1) Septic shock (2) HCAP (healthcare-associated pneumonia) (3) Chronic respiratory failure (4) Ventilator dependence (5) Vegetative state (6) HARDEEP (acute kidney injury) (7) History of CVA (cerebrovascular accident) (8) Feeding by G-tube (9) HTN (hypertension) (10) Cerebral vascular disease Respiratory: monitor respiratory rate, adjust FIO2 Cardiac: continue to monitor HR/BP Renal: F/U I&O, check electrolytes Infectious Disease: check cultures Gastrointestinal: continue feedings/current rate Endocrine: monitor blood sugar, check HgA1C Hematologic: transfuse if hgb<8.5 Neurologic: PRN Ativan, keep patient comfortable Affect: PRN ativan Disposition: keep in ICU Notes Reviewed: audio technician, renal Discussed with: nurses, 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 - Objective Last 24 Hour Vital Signs Date Time Temp Pulse Resp B/P (MAP) Pulse Ox O2 Delivery O2 Flow Rate FiO2 01/26/19 13:04 134 30 100 Mechanical Ventilator 70.0 40 130 32 65 01/26/19 13:02 100.0 01/26/19 13:00 40 01/26/19 12:00 30 01/26/19 12:00 101.5 134 36 109/76 (87) 100 01/26/19 12:00 Mechanical Ventilator 01/26/19 12:00 133 01/26/19 10:44 133 30 65 01/26/19 09:18 131 30 65 01/26/19 08:00 Mechanical Ventilator 01/26/19 08:00 98.8 124 31 107/66 (80) 100 01/26/19 08:00 30 01/26/19 08:00 123 01/26/19 06:52 103 32 100 Mechanical Ventilator 70.0 65 130 30 65 01/26/19 05:00 114 32 30 01/26/19 04:00 98.2 125 33 113/58 (76) 100 01/26/19 04:00 Mechanical Ventilator 01/26/19 04:00 120 01/26/19 04:00 30 01/26/19 02:50 121 33 30 01/26/19 01:05 126 28 30 01/26/19 00:00 30 01/26/19 00:00 99.0 121 31 110/74 (86) 100 01/26/19 00:00 118 01/26/19 00:00 Mechanical Ventilator 01/25/19 23:00 118 26 30 01/25/19 21:01 122 21 30 01/25/19 20:00 Mechanical Ventilator 01/25/19 20:00 98.6 117 29 105/76 (86) 100 01/25/19 20:00 117 01/25/19 20:00 30 01/25/19 19:13 121 27 30 01/25/19 17:28 114 28 30 01/25/19 16:00 30 01/25/19 16:00 98.9 117 24 101/69 (80) 99 01/25/19 16:00 Mechanical Ventilator 01/25/19 16:00 114 01/25/19 15:30 114 01/25/19 15:29 112 26 30 Status: awake Condition: critical HEENT: atraumatic Neck: full ROM Lungs: chest wall tender Heart: HR/BP stable Abdomen: soft, active bowel sounds Extremities: edema Decubiti: location Micro: Microbiology Date/Time Source Procedure Growth Status 01/24/19 17:30 Blood Blood Culture - Preliminary NO GROWTH AFTER 24 HOURS Resulted 01/24/19 17:15 Blood Blood Culture - Preliminary NO GROWTH AFTER 24 HOURS Resulted Accucheck: 241 Critical Care - Subjective ROS Limited/Unobtainable: Yes Condition: critical EKG Rhythm: Sinus Rhythm FI02: 40 Vent Support Breath Rate: 16 Vent Support Mode: AC Vent Tidal Volume: 500 Sputum Amount: Small PEEP: 5.0 PIP: 24 Tube Feeding Amount: 55 I&O: Intake and Output 01/25/19 01/26/19 19:00 07:00 Intake Total 1200 ml 1355 ml Output Total 550 ml 725 ml Balance 650 ml 630 ml Free Water 200 ml 100 ml IV Total 450 ml 655 ml Tube Feeding 550 ml 600 ml Output Urine Total 450 ml 525 ml Stool Total 100 ml 200 ml Labs: Laboratory Tests Test 01/26/19 04:20 White Blood Count 27.5 K/UL (4.8-10.8) *H Red Blood Count 3.75 M/UL (4.70-6.10) L Hemoglobin 10.9 G/DL (14.2-18.0) L Hematocrit 33.3 % (42.0-52.0) L Mean Corpuscular Volume 89 FL (80-99) Mean Corpuscular Hemoglobin 29.1 PG (27.0-31.0) Mean Corpuscular Hemoglobin Concent 32.8 G/DL (32.0-36.0) Red Cell Distribution Width 14.5 % (11.6-14.8) Platelet Count 263 K/UL (150-450) Mean Platelet Volume 7.2 FL (6.5-10.1) Neutrophils (%) (Auto) % (45.0-75.0) Lymphocytes (%) (Auto) % (20.0-45.0) Monocytes (%) (Auto) % (1.0-10.0) Eosinophils (%) (Auto) % (0.0-3.0) Basophils (%) (Auto) % (0.0-2.0) Differential Total Cells Counted 100 Neutrophils % (Manual) 76 % (45-75) H Lymphocytes % (Manual) 12 % (20-45) L Monocytes % (Manual) 4 % (1-10) Eosinophils % (Manual) 5 % (0-3) H Basophils % (Manual) 0 % (0-2) Band Neutrophils 3 % (0-8) Platelet Estimate Adequate Platelet Morphology Normal Sodium Level 143 MMOL/L (136-145) Potassium Level 3.3 MMOL/L (3.5-5.1) L Chloride Level 114 MMOL/L (98-107) H Carbon Dioxide Level 22 MMOL/L (21-32) Anion Gap 8 mmol/L (5-15) Blood Urea Nitrogen 22 mg/dL (7-18) H Creatinine 0.6 MG/DL (0.55-1.30) Estimat Glomerular Filtration Rate > 60 mL/min (>60) Glucose Level 239 MG/DL (74-106) H Calcium Level 7.4 MG/DL (8.5-10.1) L Phosphorus Level 1.8 MG/DL (2.5-4.9) L Magnesium Level 1.5 MG/DL (1.8-2.4) L Total Bilirubin 0.4 MG/DL (0.2-1.0) Aspartate Amino Transf (AST/SGOT) 91 U/L (15-37) H Alanine Aminotransferase (ALT/SGPT) 62 U/L (12-78) Alkaline Phosphatase 490 U/L (46-116) H Total Protein 5.2 G/DL (6.4-8.2) L Albumin 1.1 G/DL (3.4-5.0) L Globulin 4.1 g/dL Albumin/Globulin Ratio 0.3 (1.0-2.7) L Sagar Rudd MD Jan 26, 2019 14:49
[2019-01-26] MEDS: HYDROcodone/Acetamin 10/325 tab GT PRN (15:06)
--- NOTE | 2019-01-26 15:20 | NUR ---
*-* INSURANCE *-* UPDATED CLINICALS AND REVIEWS HAVE BEEN FAXED TO: Tanya Hyman CM or Ref# Yet #[phone]
--- NOTE | 2019-01-26 15:22 | Infectious Diseases Prog Note ---
Assessment/Plan Assessment/Plan 63 yo male who was sent to the ED on 01/21/19 for hypotension, fever and respiratory distress. Fever, SP Leukocytosis, fluctuating Gram negative Sepsis 01/22 BCx: ESBL K pneumoniae, GBS, Staph species 01/22 CXR: bilateral opacities 01/22 UA positive. UCx VRE 01/23 CXR: Redemonstration of bibasilar patchy airspace opacities. Unchanged pulmonary vascular congestion. No pneumothorax. Stable small left pleural effusion. 01/24 Bcx: P 01/22 C diff positive VRE colonization DM COPD CVA Dementia Parkinsons Cardiac issues Vent dependent with trach G tube PLAN: - continue meropenem #5 - continue vancomycin PO #4 - Flagyl IV #1 - Daptomycin #3 - 01/24 DC vancomycin IV #2 - f/u cultures - f/u repeat blood cultures - Monitor CBC and Temps - TTE - KUB Thank you for this consult. [facility] will continue to follow the patient with you during this hospitalization. Subjective Allergies: Coded Allergies: OXYTETRACYCLINE (Unverified Allergy, Unknown, 09/05/13) PENICILLINS (Unverified Allergy, Unknown, 06/11/17) Tolerated one dose of Cefepime 06/07/17 Tolerated Cefdinir 06/10/17 Uncoded Allergies: PLASTIC TAPE (Allergy, Mild, ITCHINESS, 08/08/15) MEDICAL TAPE (Allergy, Unknown, 12/10/16) Subjective Tmax 101 Tachycardic to 130s FiO2 30% WBC better Objective Vital Signs Last 24 Hour Vital Signs Date Time Temp Pulse Resp B/P (MAP) Pulse Ox O2 Delivery O2 Flow Rate FiO2 01/26/19 14:59 136 30 40 01/26/19 13:04 134 30 100 Mechanical Ventilator 70.0 40 130 32 65 01/26/19 13:02 100.0 01/26/19 13:00 40 01/26/19 12:00 30 01/26/19 12:00 101.5 134 36 109/76 (87) 100 01/26/19 12:00 Mechanical Ventilator 01/26/19 12:00 133 01/26/19 10:44 133 30 65 01/26/19 09:18 131 30 65 01/26/19 08:00 Mechanical Ventilator 01/26/19 08:00 98.8 124 31 107/66 (80) 100 01/26/19 08:00 30 01/26/19 08:00 123 01/26/19 06:52 103 32 100 Mechanical Ventilator 70.0 65 130 30 65 01/26/19 05:00 114 32 30 01/26/19 04:00 98.2 125 33 113/58 (76) 100 01/26/19 04:00 Mechanical Ventilator 01/26/19 04:00 120 01/26/19 04:00 30 01/26/19 02:50 121 33 30 01/26/19 01:05 126 28 30 01/26/19 00:00 30 01/26/19 00:00 99.0 121 31 110/74 (86) 100 01/26/19 00:00 118 01/26/19 00:00 Mechanical Ventilator 01/25/19 23:00 118 26 30 01/25/19 21:01 122 21 30 01/25/19 20:00 Mechanical Ventilator 01/25/19 20:00 98.6 117 29 105/76 (86) 100 01/25/19 20:00 117 01/25/19 20:00 30 01/25/19 19:13 121 27 30 01/25/19 17:28 114 28 30 01/25/19 16:00 30 01/25/19 16:00 98.9 117 24 101/69 (80) 99 01/25/19 16:00 Mechanical Ventilator 01/25/19 16:00 114 01/25/19 15:30 114 01/25/19 15:29 112 26 30 Height (Feet): 5 Height (Inches): 6.00 Weight (Pounds): 154 Objective Gen: NAD CV: RRR Resp: coarse. ventilatory sounds Abd: soft. Distended. Hypoactive BS+. G tube Ext: contracted Neuro: not alert Microbiology Date/Time Source Procedure Growth Status 01/24/19 17:30 Blood Blood Culture - Preliminary NO GROWTH AFTER 24 HOURS Resulted 01/24/19 17:15 Blood Blood Culture - Preliminary NO GROWTH AFTER 24 HOURS Resulted Laboratory Tests Test 01/26/19 04:20 White Blood Count 27.5 K/UL (4.8-10.8) *H Red Blood Count 3.75 M/UL (4.70-6.10) L Hemoglobin 10.9 G/DL (14.2-18.0) L Hematocrit 33.3 % (42.0-52.0) L Mean Corpuscular Volume 89 FL (80-99) Mean Corpuscular Hemoglobin 29.1 PG (27.0-31.0) Mean Corpuscular Hemoglobin Concent 32.8 G/DL (32.0-36.0) Red Cell Distribution Width 14.5 % (11.6-14.8) Platelet Count 263 K/UL (150-450) Mean Platelet Volume 7.2 FL (6.5-10.1) Neutrophils (%) (Auto) % (45.0-75.0) Lymphocytes (%) (Auto) % (20.0-45.0) Monocytes (%) (Auto) % (1.0-10.0) Eosinophils (%) (Auto) % (0.0-3.0) Basophils (%) (Auto) % (0.0-2.0) Differential Total Cells Counted 100 Neutrophils % (Manual) 76 % (45-75) H Lymphocytes % (Manual) 12 % (20-45) L Monocytes % (Manual) 4 % (1-10) Eosinophils % (Manual) 5 % (0-3) H Basophils % (Manual) 0 % (0-2) Band Neutrophils 3 % (0-8) Platelet Estimate Adequate Platelet Morphology Normal Sodium Level 143 MMOL/L (136-145) Potassium Level 3.3 MMOL/L (3.5-5.1) L Chloride Level 114 MMOL/L (98-107) H Carbon Dioxide Level 22 MMOL/L (21-32) Anion Gap 8 mmol/L (5-15) Blood Urea Nitrogen 22 mg/dL (7-18) H Creatinine 0.6 MG/DL (0.55-1.30) Estimat Glomerular Filtration Rate > 60 mL/min (>60) Glucose Level 239 MG/DL (74-106) H Calcium Level 7.4 MG/DL (8.5-10.1) L Phosphorus Level 1.8 MG/DL (2.5-4.9) L Magnesium Level 1.5 MG/DL (1.8-2.4) L Total Bilirubin 0.4 MG/DL (0.2-1.0) Aspartate Amino Transf (AST/SGOT) 91 U/L (15-37) H Alanine Aminotransferase (ALT/SGPT) 62 U/L (12-78) Alkaline Phosphatase 490 U/L (46-116) H Total Protein 5.2 G/DL (6.4-8.2) L Albumin 1.1 G/DL (3.4-5.0) L Globulin 4.1 g/dL Albumin/Globulin Ratio 0.3 (1.0-2.7) L Current Medications Medications (Trade) Dose Ordered Sig/Sima Route PRN Reason Start Time Stop Time Status Last Admin Dose Admin Acetaminophen (Tylenol) 650 mg Q4H PRN GT Mild Pain/Temp > 100.5 01/24/19 15:28 02/23/19 15:27 01/26/19 12:24 Acetaminophen/ Hydrocodone Bitart ([place] 10) 1 tab Q4H PRN GT For Pain 01/24/19 15:29 01/31/19 15:28 01/26/19 15:06 Albuterol Sulfate (Proventil) 2.5 mg Q6HRT HHN 01/24/19 19:00 01/27/19 06:59 01/26/19 13:03 Ascorbic Acid (Vitamin C) 250 mg DAILY GT 01/25/19 09:00 02/24/19 08:59 01/26/19 09:26 Chlorhexidine Gluconate (Paulina-Hex 2%) 1 applic DAILY@2000 TOPIC 01/24/19 20:00 02/21/19 19:59 01/25/19 20:34 Daptomycin 400 mg/ Sodium Chloride 55 ml @ 100 mls/hr Q24H IV 01/24/19 17:00 01/31/19 16:59 01/25/19 18:22 Dextrose (Dextrose 50%) 25 ml Q30M PRN IV Hypoglycemia 01/24/19 15:30 02/21/19 06:29 Dextrose (Dextrose 50%) 50 ml Q30M PRN IV Hypoglycemia 01/24/19 15:30 02/21/19 06:29 Dextrose/Sodium Chloride 1,000 ml @ 50 mls/hr Q20H IV 01/24/19 15:27 02/23/19 15:26 01/26/19 07:26 Docusate Sodium (Colace) 100 mg DAILYPRN PRN NG constipation 01/25/19 09:00 02/24/19 08:59 Famotidine (Pepcid I.v.) 20 mg Q12HR IVP 01/24/19 21:00 02/23/19 20:59 01/26/19 09:26 Insulin Aspart (NovoLOG) Q6HR SUBQ 01/26/19 12:00 02/21/19 07:29 01/26/19 12:30 Meropenem 1 gm/ Sodium Chloride 55 ml @ 110 mls/hr Q12H IVPB 01/24/19 17:00 01/29/19 16:59 01/26/19 05:16 Metronidazole 100 ml @ 100 mls/hr Q8HR IVPB 01/26/19 14:00 02/02/19 13:59 01/26/19 13:02 Midodrine (Pro-Amatine) 2.5 mg THREE TIMES A DAY GT 01/24/19 18:00 02/21/19 12:59 01/26/19 12:24 Polyethylene Glycol (Miralax) 17 gm BEDTIME GT 01/24/19 21:00 02/21/19 20:59 01/25/19 20:35 Potassium Phosphate 30 mm/ Sodium Chloride 285 ml @ 47.5 mls/hr ONCE ONCE IV 01/26/19 10:30 01/26/19 16:29 01/26/19 10:32 Tamsulosin HCl (Flomax) 0.4 mg BID ORAL 01/24/19 18:00 02/21/19 09:59 01/26/19 09:27 Vancomycin HCl (Firvanq) 125 mg FOUR TIMES A DAY GT 01/24/19 18:00 02/02/19 09:01 01/26/19 12:23 Mukesh Betancourt MD Jan 26, 2019 15:21
--- NOTE | 2019-01-26 15:35 | NUR ---
NURSE NOTES: Left message for Dr. Rudd and Dr. Arevalo to calri IV fluid order (D5NS at 50cc/hr). I also informed them of pt's current vital signs and possible need to modify IVF and rate. Awaiting call back.
[2019-01-26 16:00] VITALS: BP 97/75
[2019-01-26] MEDS ORDERED: Morphine Sulfate 4mg/ml Inj (IV USE ONLY) IVP PRN (16:45)
[2019-01-26] MEDS: DAPTOmycin 400 MG in NS 55 ML IV SCH (16:59)
--- NOTE | 2019-01-26 17:05 | Surgery Progress Note ---
Surgery Progress Note Subjective Additional Comments no acute events ill appearing labs noted exam unchanged Objective Last 24 Hour Vital Signs Date Time Temp Pulse Resp B/P (MAP) Pulse Ox O2 Delivery O2 Flow Rate FiO2 01/26/19 16:00 Mechanical Ventilator 01/26/19 16:00 97.0 125 25 97/75 (82) 100 01/26/19 14:59 136 30 40 01/26/19 13:04 134 30 100 Mechanical Ventilator 70.0 40 130 32 65 01/26/19 13:02 100.0 01/26/19 13:00 40 01/26/19 12:00 30 01/26/19 12:00 101.5 134 36 109/76 (87) 100 01/26/19 12:00 Mechanical Ventilator 01/26/19 12:00 133 01/26/19 10:44 133 30 65 01/26/19 09:18 131 30 65 01/26/19 08:00 Mechanical Ventilator 01/26/19 08:00 98.8 124 31 107/66 (80) 100 01/26/19 08:00 30 01/26/19 08:00 123 01/26/19 06:52 103 32 100 Mechanical Ventilator 70.0 65 130 30 65 01/26/19 05:00 114 32 30 01/26/19 04:00 98.2 125 33 113/58 (76) 100 01/26/19 04:00 Mechanical Ventilator 01/26/19 04:00 120 01/26/19 04:00 30 01/26/19 02:50 121 33 30 01/26/19 01:05 126 28 30 01/26/19 00:00 30 01/26/19 00:00 99.0 121 31 110/74 (86) 100 01/26/19 00:00 118 01/26/19 00:00 Mechanical Ventilator 01/25/19 23:00 118 26 30 01/25/19 21:01 122 21 30 01/25/19 20:00 Mechanical Ventilator 01/25/19 20:00 98.6 117 29 105/76 (86) 100 01/25/19 20:00 117 01/25/19 20:00 30 01/25/19 19:13 121 27 30 01/25/19 17:28 114 28 30 I&O Intake and Output 01/25/19 01/26/19 19:00 07:00 Intake Total 1200 ml 1355 ml Output Total 550 ml 725 ml Balance 650 ml 630 ml Free Water 200 ml 100 ml IV Total 450 ml 655 ml Tube Feeding 550 ml 600 ml Output Urine Total 450 ml 525 ml Stool Total 100 ml 200 ml Dressing: saturated Wound: other Drains: other Cardiovascular: RSR Respiratory: decreased breath sounds Abdomen: soft, present bowel sounds, non-distended Extremities: no cyanosis Laboratory Tests Test 01/26/19 04:20 White Blood Count 27.5 K/UL (4.8-10.8) *H Red Blood Count 3.75 M/UL (4.70-6.10) L Hemoglobin 10.9 G/DL (14.2-18.0) L Hematocrit 33.3 % (42.0-52.0) L Mean Corpuscular Volume 89 FL (80-99) Mean Corpuscular Hemoglobin 29.1 PG (27.0-31.0) Mean Corpuscular Hemoglobin Concent 32.8 G/DL (32.0-36.0) Red Cell Distribution Width 14.5 % (11.6-14.8) Platelet Count 263 K/UL (150-450) Mean Platelet Volume 7.2 FL (6.5-10.1) Neutrophils (%) (Auto) % (45.0-75.0) Lymphocytes (%) (Auto) % (20.0-45.0) Monocytes (%) (Auto) % (1.0-10.0) Eosinophils (%) (Auto) % (0.0-3.0) Basophils (%) (Auto) % (0.0-2.0) Differential Total Cells Counted 100 Neutrophils % (Manual) 76 % (45-75) H Lymphocytes % (Manual) 12 % (20-45) L Monocytes % (Manual) 4 % (1-10) Eosinophils % (Manual) 5 % (0-3) H Basophils % (Manual) 0 % (0-2) Band Neutrophils 3 % (0-8) Platelet Estimate Adequate Platelet Morphology Normal Sodium Level 143 MMOL/L (136-145) Potassium Level 3.3 MMOL/L (3.5-5.1) L Chloride Level 114 MMOL/L (98-107) H Carbon Dioxide Level 22 MMOL/L (21-32) Anion Gap 8 mmol/L (5-15) Blood Urea Nitrogen 22 mg/dL (7-18) H Creatinine 0.6 MG/DL (0.55-1.30) Estimat Glomerular Filtration Rate > 60 mL/min (>60) Glucose Level 239 MG/DL (74-106) H Calcium Level 7.4 MG/DL (8.5-10.1) L Phosphorus Level 1.8 MG/DL (2.5-4.9) L Magnesium Level 1.5 MG/DL (1.8-2.4) L Total Bilirubin 0.4 MG/DL (0.2-1.0) Aspartate Amino Transf (AST/SGOT) 91 U/L (15-37) H Alanine Aminotransferase (ALT/SGPT) 62 U/L (12-78) Alkaline Phosphatase 490 U/L (46-116) H Total Protein 5.2 G/DL (6.4-8.2) L Albumin 1.1 G/DL (3.4-5.0) L Globulin 4.1 g/dL Albumin/Globulin Ratio 0.3 (1.0-2.7) L Plan Problems: (1) Decubitus skin ulcer Assessment & Plan: Pt presented on admission with contractures, multiple pressure injuries .Pt noted to have 3 pressure injuries L elbow. Laterally L elbow -Full thickness pressure injury with 40% slough at base of wound,60% beefy red. Small amt sanguineous exudate noted(L)1.4cm x (W)2.1cm. Pressure injury L elbow (proximal) (L)0.5cm x (W)1cm . Scattered biofilm at base of wound , borders are macerated.(Inferior) (L)0.4cm x (W)0.5cm . Base of wound moist with Biofilm. Small amt serous exudate noted. (L)0.4cm x (W)0.5cm. Full thickness sacral pressure injury. Base of wound is pink- moist with scattered biofilm,(+) maceration along borders. Non-blanching erythema without induration periwound (L)11.2cm x (W)4.5cm x (D)0.4cm. Two additional pressure injuries noted to L and R sacrum. Partial thickness L sacral pressure injury. Base of wound is moist and viable. Edges are macerated with surrounding non-blanching erythema without induration or elevation in skin temp.(L)0.9cm x (W)1.3cm.R sacral partial thickness pressure injury. Base of wound is moist and viable. Edges flat and adherent to base of wound. Non- blanching erythema without induration or elevation in skin temp.(L)2cm x (W) 1.5cm. Partial thickness pressure injury to outer R buttocks. base of wound moist and viable. Edges flat and adherent to base of wound. Non-blanching erythema periwound.(L)2.3cm x (W)2.5cm. Partial thickness pressure injury inferior but in close proximity R buttocks (L) 2cm x (W)2cm . Base of wound is moist and viable. Surrounding non-blanching erythema without induration. Erythematous and indurated area noted to L groin. No elevation in skin temp noted. Scrotal sac is also erythematous. Non-blanching erythema with fluctuance R hallux. (L)1.6cm x (W)1.7cm. Pressure injury dorsal R foot . Base of wound moist with small amt of Biofilm.(+ ) maceration along borders.(L)1.5cm x (W)1.7cm. R 1st metatarsal necrotic with soft center with slough . Small amt seropurulent exudate noted. Marginal erythema along borders. (L)1.5cm x (W)1.5cm. Non-blanching erythema without induration or fluctuance lateral malleolus(L) 2.5cm x (W)2.5cm. L heel is boggy with non-blanching erythema. R heel is boggy but pink and easily blanchable. Tx.plan: Cleanse Sacral wound with Saline. Apply Therahoney. Apply Triad Paste periwound. Cover with Optifoam drsg. Change every 3 days and prn. Apply Triad paste to pressure injuries R and L sacrum and R outer Buttocks. Cover wounds with Optifoam drsg. Change every 3 days and prn. Apply Triad paste to groin and scrotum with each incontinence care. Cleanse wounds L elbow with saline. Apply Therahoney to wounds. Cover with Optifoam drsg. Change every 3 days and prn. Apply Betadine to wounds dorsal R foot and R 1st metatarsal . Cover with Optifoam drsg. Change daily and prn. Apply Cavilon to R hallux, R and L malleoli and both heels. Cover each site with Optifoam drsgs. Change every 7 days and prn. APM/RENETTA Mattress overlay. Reposition at least every 2hours or as tolerated. Off-load heels with Pillow. Place pillow between knees. (2) Septic shock Assessment & Plan: Leukocytosis - improved Lactic acidosis resolved off pressors on IV fluids tube feeds needs nutritional supplementation Rx as written cont current care and management will follow with recs thank you (3) Feeding by G-tube Assessment & Plan: DAILY ESTIMATED NEEDS: Needs based on Critical care, wound 68kg 22-30 kcals/kg 0433-0689 total kcals 1.25-2 g protein/kg 85-136 g total protein 25-30 mL/kg 2854-3880 total fluid mLs NUTRITION DIAGNOSIS: 1) Swallowing difficulty R/T respiratory status as evidenced by pt vent dep via trach, PEG dep, on TF. 2) Increased kcal/prot needs R/T wound healing as evidenced by pt admitted w/ multiple wounds, including open sacral wound, eval pending. ENTERAL NUTRITION RECOMMENDATIONS: Vital AF 1.2 @55ml x24 hrs to provide 1320ml, 1584kcal, 99g prot, 1071ml free H20 * As medically appropriate w/ hemodynamic stability, rec elemental formula of Vital for GI tolerance. * Initiate VITAL 1.2 @ 15ml/hr x 6 hrs, advance 10ml q 4-6 hrs as tolerated to goal rate. * HOB >30 degrees/ water flushes per MD ADDITIONAL RECOMMENDATIONS: 1) Maintain calibrated bed scale wts 2) Wound healing: add Darryl 1pkt BID w/ TF order Add Vit C 250mg daily (f/up w/ WC eval) 3) F/up w/ H&P 4) Lytes daily, replete as needed (4) Vegetative state Jimmy Tang Jan 26, 2019 17:05
--- NOTE | 2019-01-26 19:16 | NUR ---
HAND-OFF: Report given to GEOVANNA Sandoval. Pt in stable condition.
--- NOTE | 2019-01-26 19:17 | NUR ---
NURSE NOTES: Received patient from GEOVANNA Montemayor. Will continue plan of care.
[2019-01-26 20:00] VITALS: BP 99/70
--- NOTE | 2019-01-26 20:23 | NUR ---
NURSE NOTES: Dr. Pierre came to see the patient. He states to make sure the hernández is not to be removed and it anchored to the patient incase of accidental pulling.
[2019-01-26] MEDS: Miralax 17gm pkt GT SCH (20:45)
[2019-01-26] MEDS: Dyna-Hex 2% Top Sol 2oz TOPIC SCH (21:01)
[2019-01-27] VITALS: BP 104/65
[2019-01-27] MEDS: Albuterol ud Inhalation HHN SCH (01:10)
[2019-01-27 04:00] VITALS: BP 105/69
[2019-01-27] MEDS: Meropenem 1 GM in NS 55 ML IVPB SCH ×2 (05:24→17:16)
[2019-01-27] MEDS: NovoLOG Insulin Flexpen SUBQ SCH ×4 (05:25→23:45)
[2019-01-27 05:29] LABS: HEMATOCRIT 33.5 % (42.0-52.0); HEMOGLOBIN 10.9 G/DL (14.2-18.0); MEAN CORPUSCULAR VOLUME 89 FL (80-99); PLATELET COUNT 272 K/UL (150-450); RED BLOOD COUNT 3.77 M/UL (4.70-6.10); RED CELL DISTRIBUTION WIDTH 14.1 % (11.6-14.8)
[2019-01-27 05:42] LABS: WHITE BLOOD COUNT 31.2 K/UL (4.8-10.8)
[2019-01-27 05:51] LABS: ANION GAP 9 mmol/L (5-15); BLOOD UREA NITROGEN 23 mg/dL (7-18); CALCIUM 7.3 MG/DL (8.5-10.1); CARBON DIOXIDE 20 MMOL/L (21-32); CHLORIDE 115 MMOL/L (98-107); CREATININE 0.5 MG/DL (0.55-1.30); POTASSIUM 3.6 MMOL/L (3.5-5.1); SODIUM 144 MMOL/L (136-145)
--- NOTE | 2019-01-27 06:15 | NUR ---
NURSE NOTES: Attempted to contact [facility] with Dr. Betancourt, Dr. Castillo or Dr. Rodriguez regarding WBC 31.2 as of this morning. No answer and unable to leave voice message for that there is no answering service or voice mail box provided. Will endorse to incoming nurse.
--- NOTE | 2019-01-27 07:01 | NUR ---
RESPIRATORY NOTE: Received pt on ordered vent settings. pt airway is patent and secured. suctioned pt prn. no resp distress noted. vent alarms are on and audible. vent is plugged into red outlet. will monitor pt progress.
--- NOTE | 2019-01-27 07:10 | NUR ---
NURSE NOTES: Received report from GEOVANNA Sandoval. Observed patient in bed, obtunded. On trach-vent with settings AC 16, TV 500%, FiO2 40%, PEEP 5. No acute resp. distress noted. GT intact and patent with feeding infusing at prescribed rate. HOB elevated. Right IJ central catheter intact and patent with IV fluids infusing at prescribed rate. Brooks catheter and rectal tube noted, intact and draining well to gravity. Safety precautions in place, bed locked, alarmed, and in lowest position, side rails up x3, and call light left within reach. Will continue plan of care and monitor patient.
--- NOTE | 2019-01-27 07:15 | NUR ---
HAND-OFF: Report given to GEOVANNA Hu.
[2019-01-27 08:00] VITALS: BP 111/69
[2019-01-27] MEDS: Tamsulosin 0.4mg cap ORAL SCH ×2 (08:28→17:23)
[2019-01-27] MEDS: Vancomycin oral 125mg/2.5ml GT SCH ×2 (08:28→13:00)
[2019-01-27] MEDS: Ascorbic Acid 500mg tab GT SCH (08:28)
[2019-01-27 08:43] LABS: ALANINE AMINOTRANSFERASE 63 U/L (12-78); ALBUMIN 1.2 G/DL (3.4-5.0); ALKALINE PHOSPHATASE 484 U/L (46-116); ASPARTATE AMINO TRANSFERASE 73 U/L (15-37); BILIRUBIN,DIRECT 0.2 MG/DL (0.0-0.3); BILIRUBIN,TOTAL 0.4 MG/DL (0.2-1.0); PHOSPHORUS 2.4 MG/DL (2.5-4.9)
--- NOTE | 2019-01-27 09:00 | Progress Note ---
DATE: 01/26/2019 SUBJECTIVE: The patient is afebrile but remained tachycardic. PHYSICAL EXAMINATION: VITAL SIGNS: Blood pressure is 99/70, pulse is 120, respirations 29, and temperature 98.2. HEENT: Eyes were normal. ENT, mucous membranes were moist and intact. NECK: Supple with no JVD without lymph nodes. Tracheostomy site is clean. LUNGS: Clear without rhonchi, rales, or wheezing. Secretions are small, thin, and clayton. HEART: Normal sounds with regular beats. There is no S3, S4, or pericardial rub. ABDOMEN: Soft and nontender with normal bowel sounds. Gastrostomy site is clean. EXTREMITIES: Warm without cyanosis, clubbing, or edema. LABORATORY AND DIAGNOSTIC DATA: His hemoglobin is 10.9, hematocrit 33.3, with MCV of 89, WBC of 27.5, and platelets 263,000. WBC was 32,700 31,000 on 01/24/2019. His BUN and creatinine are 22 and 0.6 respectively. His sodium is 143, potassium 3.3, chloride 114, and CO2 is 22. His phosphorus is 1.8 and magnesium . SGOT was 91 his albumin is 1.9, and total protein 5.2. IMPRESSION AND PLAN: The patient has multiple electrolyte abnormalities. He is hypokalemic, he will receive 40 mEq of KCl via G-tube. He is hypophosphatemic, he will receive 20 mmol IV over 2 hours. He is hypomagnesemic, he will receive 2 g of magnesium sulfate IV over 2 hours. Repeat laboratory tests will be done in the a.m. Boris Arevalo M.D. DR: Lilibeth JOB#: [id number] CC:
--- NOTE | 2019-01-27 10:44 | General Progress Note ---
Assessment/Plan Status: unchanged Assessment/Plan: (1) Clostridium difficile diarrhea ICD Codes: A04.72 - Enterocolitis due to Clostridium difficile, not specified as recurrent SNOMED: 3505686140598 (2) Severe sepsis ICD Codes: A41.9 - Sepsis, unspecified organism; R65.20 - Severe sepsis without septic shock SNOMED: 12965969 (3) Feeding by G-tube ICD Codes: Z93.1 - Feeding by G-tube SNOMED: 912647720 (4) Diarrhea ICD Codes: R19.7 - Diarrhea, unspecified SNOMED: 73276567 (5) Upper GI bleed ICD Codes: K92.2 - Gastrointestinal hemorrhage, unspecified SNOMED: 52379628 Assessment/Plan No plans for GI procedures at this time given sepsis. Monitor H&H, PRN transfusions Occult blood to rule out any GI bleed Hold PPI given C. difficile H2B Antibiotics per infectious diseases for C. difficile IV hydration plus electrolyte correction GTF Follow labs Subjective ROS Limited/Unobtainable: No Allergies: Coded Allergies: OXYTETRACYCLINE (Unverified Allergy, Unknown, 09/05/13) PENICILLINS (Unverified Allergy, Unknown, 06/11/17) Tolerated one dose of Cefepime 06/07/17 Tolerated Cefdinir 06/10/17 Uncoded Allergies: PLASTIC TAPE (Allergy, Mild, ITCHINESS, 08/08/15) MEDICAL TAPE (Allergy, Unknown, 12/10/16) Objective Last 24 Hour Vital Signs Date Time Temp Pulse Resp B/P (MAP) Pulse Ox O2 Delivery O2 Flow Rate FiO2 01/27/19 08:33 104 31 40 01/27/19 08:00 40 01/27/19 08:00 98.2 118 30 111/69 (83) 100 01/27/19 08:00 Mechanical Ventilator 01/27/19 07:44 116 01/27/19 07:01 118 28 100 Mechanical Ventilator 70.0 40 130 32 65 01/27/19 04:48 105 31 40 01/27/19 04:00 40 01/27/19 04:00 Mechanical Ventilator 01/27/19 04:00 98.8 123 24 105/69 (81) 100 01/27/19 03:42 120 01/27/19 03:00 104 31 40 01/27/19 02:15 110 29 100 Mechanical Ventilator 45.0 40 01/27/19 01:02 122 30 99 Mechanical Ventilator 40 122 27 40 01/27/19 00:00 Mechanical Ventilator 01/27/19 00:00 99.8 123 26 104/65 (78) 100 01/26/19 23:28 122 01/26/19 23:03 120 29 40 01/26/19 21:06 120 29 40 01/26/19 20:00 Mechanical Ventilator 01/26/19 20:00 98.2 121 24 99/70 (80) 100 01/26/19 20:00 40 01/26/19 19:07 119 25 100 Mechanical Ventilator 40 125 28 40 01/26/19 19:01 122 01/26/19 17:05 128 26 40 01/26/19 17:00 Mechanical Ventilator 01/26/19 16:00 Mechanical Ventilator 01/26/19 16:00 97.0 125 25 97/75 (82) 100 01/26/19 16:00 136 01/26/19 14:59 136 30 40 01/26/19 13:04 134 30 100 Mechanical Ventilator 70.0 40 130 32 65 01/26/19 13:02 100.0 01/26/19 13:00 40 01/26/19 12:00 30 01/26/19 12:00 101.5 134 36 109/76 (87) 100 01/26/19 12:00 Mechanical Ventilator 01/26/19 12:00 133 Intake and Output 01/26/19 01/27/19 18:59 06:59 Intake Total 1957.3 ml 2303.41 ml Output Total 800 ml 1000 ml Balance 1157.3 ml 1303.41 ml Free Water 200 ml 250 ml IV Total 1047.3 ml 1393.41 ml Tube Feeding 710 ml 660 ml Output Urine Total 600 ml 600 ml Stool Total 200 ml 400 ml Laboratory Tests 01/27/19 03:00: White Blood Count 31.2*H, Red Blood Count 3.77L, Hemoglobin 10.9L, Hematocrit 33.5L, Mean Corpuscular Volume 89, Mean Corpuscular Hemoglobin 28.9, Mean Corpuscular Hemoglobin Concent 32.5, Red Cell Distribution Width 14.1, Platelet Count 272, Mean Platelet Volume 7.1, Neutrophils (%) (Auto) , Lymphocytes (%) ( Auto) , Monocytes (%) (Auto) , Eosinophils (%) (Auto) , Basophils (%) (Auto) , Neutrophils % (Manual) [Pending], Lymphocytes % (Manual) [Pending], Platelet Estimate [Pending], Platelet Morphology [Pending], Sodium Level 144, Potassium Level 3.6, Chloride Level 115H, Carbon Dioxide Level 20L, Anion Gap 9, Blood Urea Nitrogen 23H, Creatinine 0.5L, Estimat Glomerular Filtration Rate > 60, Glucose Level 223H, Calcium Level 7.3L, Phosphorus Level 2.4L, Magnesium Level 1.5L, Total Bilirubin 0.4, Direct Bilirubin 0.2, Aspartate Amino Transf (AST/ SGOT) 73H, Alanine Aminotransferase (ALT/SGPT) 63, Alkaline Phosphatase 484H, Total Protein 5.3L, Albumin 1.2L Height (Feet): 5 Height (Inches): 6.00 Weight (Pounds): 154 General Appearance: no apparent distress EENT: normal ENT inspection Neck: supple Cardiovascular: normal rate Respiratory/Chest: decreased breath sounds Abdomen: normal bowel sounds, non tender, soft Extremities: non-tender Gaurav Rosas MD Jan 27, 2019 10:44
--- NOTE | 2019-01-27 10:49 | Pulmonolgy Critical Care Note ---
Critical Care - Asmt/Plan Problems: (1) Septic shock (2) HCAP (healthcare-associated pneumonia) (3) Chronic respiratory failure (4) Ventilator dependence (5) Vegetative state (6) HARDEEP (acute kidney injury) (7) History of CVA (cerebrovascular accident) (8) Feeding by G-tube (9) HTN (hypertension) (10) Cerebral vascular disease Respiratory: monitor respiratory rate Cardiac: start pressors, continue to monitor HR/BP Renal: F/U I&O, check electrolytes Infectious Disease: check cultures Gastrointestinal: continue feedings/current rate Endocrine: monitor blood sugar, check HgA1C Hematologic: monitor H/H, transfuse if hgb<8.5 Neurologic: keep patient comfortable Notes Reviewed: cardio, renal Discussed with: nurses, consultants, director of caseworkwealth management manager - Objective Last 24 Hour Vital Signs Date Time Temp Pulse Resp B/P (MAP) Pulse Ox O2 Delivery O2 Flow Rate FiO2 01/27/19 08:33 104 31 40 01/27/19 08:00 40 01/27/19 08:00 98.2 118 30 111/69 (83) 100 01/27/19 08:00 Mechanical Ventilator 01/27/19 07:44 116 01/27/19 07:01 118 28 100 Mechanical Ventilator 70.0 40 130 32 65 01/27/19 04:48 105 31 40 01/27/19 04:00 40 01/27/19 04:00 Mechanical Ventilator 01/27/19 04:00 98.8 123 24 105/69 (81) 100 01/27/19 03:42 120 01/27/19 03:00 104 31 40 01/27/19 02:15 110 29 100 Mechanical Ventilator 45.0 40 01/27/19 01:02 122 30 99 Mechanical Ventilator 40 122 27 40 01/27/19 00:00 Mechanical Ventilator 01/27/19 00:00 99.8 123 26 104/65 (78) 100 01/26/19 23:28 122 01/26/19 23:03 120 29 40 01/26/19 21:06 120 29 40 01/26/19 20:00 Mechanical Ventilator 01/26/19 20:00 98.2 121 24 99/70 (80) 100 01/26/19 20:00 40 01/26/19 19:07 119 25 100 Mechanical Ventilator 40 125 28 40 01/26/19 19:01 122 01/26/19 17:05 128 26 40 01/26/19 17:00 Mechanical Ventilator 01/26/19 16:00 Mechanical Ventilator 01/26/19 16:00 97.0 125 25 97/75 (82) 100 01/26/19 16:00 136 01/26/19 14:59 136 30 40 01/26/19 13:04 134 30 100 Mechanical Ventilator 70.0 40 130 32 65 01/26/19 13:02 100.0 01/26/19 13:00 40 01/26/19 12:00 30 01/26/19 12:00 101.5 134 36 109/76 (87) 100 01/26/19 12:00 Mechanical Ventilator 01/26/19 12:00 133 Status: obtunded Condition: critical Neck: full ROM Heart: HR/BP stable Abdomen: soft, active bowel sounds Extremities: edema Decubiti: stage Micro: Microbiology Date/Time Source Procedure Growth Status 01/24/19 17:30 Blood Blood Culture - Preliminary NO GROWTH AFTER 48 HOURS Resulted 01/24/19 17:15 Blood Blood Culture - Preliminary NO GROWTH AFTER 48 HOURS Resulted Accucheck: 261 Critical Care - Subjective ROS Limited/Unobtainable: Yes Condition: critical EKG Rhythm: Sinus Rhythm FI02: 40 Vent Support Breath Rate: 16 Vent Support Mode: AC Vent Tidal Volume: 500 Sputum Amount: Small PEEP: 5.0 PIP: 20 Tube Feeding Amount: 55 I&O: Intake and Output 01/26/19 01/27/19 18:59 06:59 Intake Total 1957.3 ml 2303.41 ml Output Total 800 ml 1000 ml Balance 1157.3 ml 1303.41 ml Free Water 200 ml 250 ml IV Total 1047.3 ml 1393.41 ml Tube Feeding 710 ml 660 ml Output Urine Total 600 ml 600 ml Stool Total 200 ml 400 ml Labs: Laboratory Tests Test 01/27/19 03:00 White Blood Count 31.2 K/UL (4.8-10.8) *H Red Blood Count 3.77 M/UL (4.70-6.10) L Hemoglobin 10.9 G/DL (14.2-18.0) L Hematocrit 33.5 % (42.0-52.0) L Mean Corpuscular Volume 89 FL (80-99) Mean Corpuscular Hemoglobin 28.9 PG (27.0-31.0) Mean Corpuscular Hemoglobin Concent 32.5 G/DL (32.0-36.0) Red Cell Distribution Width 14.1 % (11.6-14.8) Platelet Count 272 K/UL (150-450) Mean Platelet Volume 7.1 FL (6.5-10.1) Neutrophils (%) (Auto) % (45.0-75.0) Lymphocytes (%) (Auto) % (20.0-45.0) Monocytes (%) (Auto) % (1.0-10.0) Eosinophils (%) (Auto) % (0.0-3.0) Basophils (%) (Auto) % (0.0-2.0) Neutrophils % (Manual) Pending Lymphocytes % (Manual) Pending Platelet Estimate Pending Platelet Morphology Pending Sodium Level 144 MMOL/L (136-145) Potassium Level 3.6 MMOL/L (3.5-5.1) Chloride Level 115 MMOL/L (98-107) H Carbon Dioxide Level 20 MMOL/L (21-32) L Anion Gap 9 mmol/L (5-15) Blood Urea Nitrogen 23 mg/dL (7-18) H Creatinine 0.5 MG/DL (0.55-1.30) L Estimat Glomerular Filtration Rate > 60 mL/min (>60) Glucose Level 223 MG/DL (74-106) H Calcium Level 7.3 MG/DL (8.5-10.1) L Phosphorus Level 2.4 MG/DL (2.5-4.9) L Magnesium Level 1.5 MG/DL (1.8-2.4) L Total Bilirubin 0.4 MG/DL (0.2-1.0) Direct Bilirubin 0.2 MG/DL (0.0-0.3) Aspartate Amino Transf (AST/SGOT) 73 U/L (15-37) H Alanine Aminotransferase (ALT/SGPT) 63 U/L (12-78) Alkaline Phosphatase 484 U/L (46-116) H Total Protein 5.3 G/DL (6.4-8.2) L Albumin 1.2 G/DL (3.4-5.0) L Sagar Rudd MD Jan 27, 2019 10:49
--- NOTE | 2019-01-27 11:22 | Nephrology Progress Note ---
Assessment/Plan Problem List: (1) Hypokalemia (2) HARDEEP (acute kidney injury) (3) Sepsis (4) Hyponatremia Assessment HARDEEP (acute kidney injury) HypoNatremia Septic shock Others: HCAP (healthcare-associated pneumonia) Chronic respiratory failure Ventilator dependence Vegetative state History of CVA (cerebrovascular accident) Feeding by G-tube HTN (hypertension) Cerebral vascular disease Plan K Phos mag as needed Hydrate monitor renal parameters Midodrine Antibiotics Avoid nephrotoxics [place] could not be put in due to resistance start flomax per order Subjective ROS Limited/Unobtainable: Yes Objective Objective Last 24 Hour Vital Signs Date Time Temp Pulse Resp B/P (MAP) Pulse Ox O2 Delivery O2 Flow Rate FiO2 01/27/19 10:41 109 26 40 01/27/19 08:33 104 31 40 01/27/19 08:00 40 01/27/19 08:00 98.2 118 30 111/69 (83) 100 01/27/19 08:00 Mechanical Ventilator 01/27/19 07:44 116 01/27/19 07:01 118 28 100 Mechanical Ventilator 70.0 40 130 32 65 01/27/19 04:48 105 31 40 01/27/19 04:00 40 01/27/19 04:00 Mechanical Ventilator 01/27/19 04:00 98.8 123 24 105/69 (81) 100 01/27/19 03:42 120 01/27/19 03:00 104 31 40 01/27/19 02:15 110 29 100 Mechanical Ventilator 45.0 40 01/27/19 01:02 122 30 99 Mechanical Ventilator 40 122 27 40 01/27/19 00:00 Mechanical Ventilator 01/27/19 00:00 99.8 123 26 104/65 (78) 100 01/26/19 23:28 122 01/26/19 23:03 120 29 40 01/26/19 21:06 120 29 40 01/26/19 20:00 Mechanical Ventilator 01/26/19 20:00 98.2 121 24 99/70 (80) 100 01/26/19 20:00 40 01/26/19 19:07 119 25 100 Mechanical Ventilator 40 125 28 40 01/26/19 19:01 122 01/26/19 17:05 128 26 40 01/26/19 17:00 Mechanical Ventilator 01/26/19 16:00 Mechanical Ventilator 01/26/19 16:00 97.0 125 25 97/75 (82) 100 01/26/19 16:00 136 01/26/19 14:59 136 30 40 01/26/19 13:04 134 30 100 Mechanical Ventilator 70.0 40 130 32 65 01/26/19 13:02 100.0 01/26/19 13:00 40 01/26/19 12:00 30 01/26/19 12:00 101.5 134 36 109/76 (87) 100 01/26/19 12:00 Mechanical Ventilator 01/26/19 12:00 133 Intake and Output 01/26/19 01/27/19 19:00 07:00 Intake Total 2062.3 ml 2253.41 ml Output Total 800 ml 1000 ml Balance 1262.3 ml 1253.41 ml Free Water 250 ml 200 ml IV Total 1097.3 ml 1393.41 ml Tube Feeding 715 ml 660 ml Output Urine Total 600 ml 600 ml Stool Total 200 ml 400 ml Laboratory Tests 01/27/19 03:00: White Blood Count 31.2*H, Red Blood Count 3.77L, Hemoglobin 10.9L, Hematocrit 33.5L, Mean Corpuscular Volume 89, Mean Corpuscular Hemoglobin 28.9, Mean Corpuscular Hemoglobin Concent 32.5, Red Cell Distribution Width 14.1, Platelet Count 272, Mean Platelet Volume 7.1, Neutrophils (%) (Auto) , Lymphocytes (%) ( Auto) , Monocytes (%) (Auto) , Eosinophils (%) (Auto) , Basophils (%) (Auto) , Differential Total Cells Counted 100, Neutrophils % (Manual) 75, Lymphocytes % ( Manual) 13L, Monocytes % (Manual) 7, Eosinophils % (Manual) 2, Basophils % ( Manual) 0, Band Neutrophils 3, Platelet Estimate Adequate, Platelet Morphology Normal, Hypochromasia 1+, Anisocytosis 1+, Sodium Level 144, Potassium Level 3.6 , Chloride Level 115H, Carbon Dioxide Level 20L, Anion Gap 9, Blood Urea Nitrogen 23H, Creatinine 0.5L, Estimat Glomerular Filtration Rate > 60, Glucose Level 223H, Calcium Level 7.3L, Phosphorus Level 2.4L, Magnesium Level 1.5L, Total Bilirubin 0.4, Direct Bilirubin 0.2, Aspartate Amino Transf (AST/SGOT) 73H , Alanine Aminotransferase (ALT/SGPT) 63, Alkaline Phosphatase 484H, Total Protein 5.3L, Albumin 1.2L Height (Feet): 5 Height (Inches): 6.00 Weight (Pounds): 154 General Appearance: no apparent distress Cardiovascular: tachycardia Respiratory/Chest: decreased breath sounds Abdomen: distended Objective no change Sergey Rivera MD Jan 27, 2019 11:22
[2019-01-27 12:00] VITALS: BP 126/68
--- NOTE | 2019-01-27 12:00 | Diagnostic Imaging Report ---
Indication: Diarrhea, abdominal pain Technique: Supine view of the abdomen Comparison: 03/01/2017 Findings: There is a gastrostomy. Prominent gas is seen in the ascending and transverse colon, which are otherwise nondistended. Slight chronic gas is seen in one or 2 left upper quadrant small bowel loops. No pearl gaseous distention of large or small bowel. No masses or unusual calcifications. Overall bowel gas is diminished from the prior study Impression: Nonspecific bowel gas pattern. Gastrostomy No definite acute process
--- NOTE | 2019-01-27 12:15 | Urology Progress Note ---
Assessment/Plan Status: unchanged Assessment/Plan: 1. Sepsis. 2. Incontinence. 3. Neurogenic bladder. 4. Proteinuria. 5. Hematuria. 6. Pyuria. 7. History of nephrolithiasis. 8. Urethral stricture. maintain hernández, do not remove switch to larger size hernández at some point hand irrigated and do PRN f/u on final blood cx abx as ordered, ID on case Subjective Allergies: Coded Allergies: OXYTETRACYCLINE (Unverified Allergy, Unknown, 09/05/13) PENICILLINS (Unverified Allergy, Unknown, 06/11/17) Tolerated one dose of Cefepime 06/07/17 Tolerated Cefdinir 06/10/17 Uncoded Allergies: PLASTIC TAPE (Allergy, Mild, ITCHINESS, 08/08/15) MEDICAL TAPE (Allergy, Unknown, 12/10/16) Subjective all noted Objective Last 24 Hour Vital Signs Date Time Temp Pulse Resp B/P (MAP) Pulse Ox O2 Delivery O2 Flow Rate FiO2 01/27/19 10:41 109 26 40 01/27/19 08:33 104 31 40 01/27/19 08:00 40 01/27/19 08:00 98.2 118 30 111/69 (83) 100 01/27/19 08:00 Mechanical Ventilator 01/27/19 07:44 116 01/27/19 07:01 118 28 100 Mechanical Ventilator 70.0 40 130 32 65 01/27/19 04:48 105 31 40 01/27/19 04:00 40 01/27/19 04:00 Mechanical Ventilator 01/27/19 04:00 98.8 123 24 105/69 (81) 100 01/27/19 03:42 120 01/27/19 03:00 104 31 40 01/27/19 02:15 110 29 100 Mechanical Ventilator 45.0 40 01/27/19 01:02 122 30 99 Mechanical Ventilator 40 122 27 40 01/27/19 00:00 Mechanical Ventilator 01/27/19 00:00 99.8 123 26 104/65 (78) 100 01/26/19 23:28 122 01/26/19 23:03 120 29 40 01/26/19 21:06 120 29 40 01/26/19 20:00 Mechanical Ventilator 01/26/19 20:00 98.2 121 24 99/70 (80) 100 01/26/19 20:00 40 01/26/19 19:07 119 25 100 Mechanical Ventilator 40 125 28 40 01/26/19 19:01 122 01/26/19 17:05 128 26 40 01/26/19 17:00 Mechanical Ventilator 01/26/19 16:00 Mechanical Ventilator 01/26/19 16:00 97.0 125 25 97/75 (82) 100 01/26/19 16:00 136 01/26/19 14:59 136 30 40 01/26/19 13:04 134 30 100 Mechanical Ventilator 70.0 40 130 32 65 01/26/19 13:02 100.0 01/26/19 13:00 40 Intake and Output 01/26/19 01/27/19 19:00 07:00 Intake Total 2062.3 ml 2253.41 ml Output Total 800 ml 1000 ml Balance 1262.3 ml 1253.41 ml Free Water 250 ml 200 ml IV Total 1097.3 ml 1393.41 ml Tube Feeding 715 ml 660 ml Output Urine Total 600 ml 600 ml Stool Total 200 ml 400 ml Microbiology Date/Time Source Procedure Growth Status 01/24/19 17:30 Blood Blood Culture - Preliminary NO GROWTH AFTER 48 HOURS Resulted 01/22/19 02:10 Nasal Nares MRSA Culture - Final NO METHICILLIN RESISTANT STAPH AUREUS... Complete 01/22/19 17:23 Stool Clostridium difficile Toxin Assay - Final Complete 01/22/19 04:45 Urine,Clean Catch Urine Culture - Final Enterococcus Faecalis - Vre Complete 01/22/19 02:10 Rectum - Final Escherichia Coli - Cre Complete Current Medications Medications (Trade) Dose Ordered Sig/Sima Route PRN Reason Start Time Stop Time Status Last Admin Dose Admin Acetaminophen (Tylenol) 650 mg Q4H PRN GT Mild Pain/Temp > 100.5 01/24/19 15:28 02/23/19 15:27 01/26/19 12:24 Acetaminophen/ Hydrocodone Bitart ([place] 10/325) 1 tab Q4H PRN GT For Pain 01/24/19 15:29 01/31/19 15:28 01/26/19 15:06 Ascorbic Acid (Vitamin C) 250 mg DAILY GT 01/25/19 09:00 02/24/19 08:59 01/27/19 08:28 Chlorhexidine Gluconate (Paulina-Hex 2%) 1 applic DAILY@1999 TOPIC 01/24/19 20:00 02/21/19 19:59 01/26/19 21:01 Daptomycin 400 mg/ Sodium Chloride 55 ml @ 100 mls/hr Q24H IV 01/24/19 17:00 01/31/19 16:59 01/26/19 16:59 Dextrose (Dextrose 50%) 25 ml Q30M PRN IV Hypoglycemia 01/24/19 15:30 02/21/19 06:29 Dextrose (Dextrose 50%) 50 ml Q30M PRN IV Hypoglycemia 01/24/19 15:30 02/21/19 06:29 Docusate Sodium (Colace) 100 mg DAILYPRN PRN NG constipation 01/25/19 09:00 02/24/19 08:59 Famotidine (Pepcid I.v.) 20 mg Q12HR IVP 01/24/19 21:00 02/23/19 20:59 01/27/19 08:28 Insulin Aspart (NovoLOG) Q6HR SUBQ 01/26/19 12:00 02/21/19 07:29 01/27/19 11:59 Magnesium Sulfate 100 ml @ 100 mls/hr Q1H IVPB 01/27/19 11:30 01/27/19 15:29 01/27/19 11:45 Meropenem 1 gm/ Sodium Chloride 55 ml @ 110 mls/hr Q12H IVPB 01/24/19 17:00 01/29/19 16:59 01/27/19 05:24 Metronidazole 100 ml @ 100 mls/hr Q8HR IVPB 01/26/19 14:00 02/02/19 13:59 01/27/19 05:24 Midodrine (Pro-Amatine) 2.5 mg THREE TIMES A DAY GT 01/24/19 18:00 02/21/19 12:59 01/27/19 08:28 Morphine Sulfate (Morphine Sulfate) 4 mg Q6H PRN IVP Severe Pain (Pain Scale 7-10) 01/26/19 16:45 02/02/19 16:44 Polyethylene Glycol (Miralax) 17 gm BEDTIME GT 01/24/19 21:00 02/21/19 20:59 01/25/19 20:35 Sodium Chloride 1,000 ml @ 100 mls/hr Q10H IV 01/26/19 17:00 02/25/19 16:59 01/27/19 02:37 Tamsulosin HCl (Flomax) 0.4 mg BID ORAL 01/24/19 18:00 02/21/19 09:59 01/27/19 08:28 Vancomycin HCl (Firvanq) 125 mg FOUR TIMES A DAY GT 01/24/19 18:00 02/02/19 09:01 01/27/19 08:28 Laboratory Tests 01/27/19 03:00: White Blood Count 31.2*H, Red Blood Count 3.77L, Hemoglobin 10.9L, Hematocrit 33.5L, Mean Corpuscular Volume 89, Mean Corpuscular Hemoglobin 28.9, Mean Corpuscular Hemoglobin Concent 32.5, Red Cell Distribution Width 14.1, Platelet Count 272, Mean Platelet Volume 7.1, Neutrophils (%) (Auto) , Lymphocytes (%) ( Auto) , Monocytes (%) (Auto) , Eosinophils (%) (Auto) , Basophils (%) (Auto) , Differential Total Cells Counted 100, Neutrophils % (Manual) 75, Lymphocytes % ( Manual) 13L, Monocytes % (Manual) 7, Eosinophils % (Manual) 2, Basophils % ( Manual) 0, Band Neutrophils 3, Platelet Estimate Adequate, Platelet Morphology Normal, Hypochromasia 1+, Anisocytosis 1+, Sodium Level 144, Potassium Level 3.6 , Chloride Level 115H, Carbon Dioxide Level 20L, Anion Gap 9, Blood Urea Nitrogen 23H, Creatinine 0.5L, Estimat Glomerular Filtration Rate > 60, Glucose Level 223H, Calcium Level 7.3L, Phosphorus Level 2.4L, Magnesium Level 1.5L, Total Bilirubin 0.4, Direct Bilirubin 0.2, Aspartate Amino Transf (AST/SGOT) 73H , Alanine Aminotransferase (ALT/SGPT) 63, Alkaline Phosphatase 484H, Total Protein 5.3L, Albumin 1.2L Height (Feet): 5 Height (Inches): 6.00 Weight (Pounds): 154 Objective exam stable hernández indwelling, urine yellow/abhay no active bleeding at meatus renal u/s (01/23) noted Jake Pierre MD Jan 27, 2019 12:15
--- NOTE | 2019-01-27 13:30 | NUR ---
NURSE NOTES: Dr Betancourt at bedside, informed and made aware of patient's WBC today. No new orders noted.
--- NOTE | 2019-01-27 15:07 | Infectious Diseases Prog Note ---
Assessment/Plan Assessment/Plan 63 yo male who was sent to the ED on 01/21/19 for hypotension, fever and respiratory distress. Fever, SP Leukocytosis, fluctuating Gram negative Sepsis 01/22 BCx: ESBL K pneumoniae, GBS, MRSA 01/22 CXR: bilateral opacities 01/22 UA positive. UCx VRE 01/23 CXR: Redemonstration of bibasilar patchy airspace opacities. Unchanged pulmonary vascular congestion. No pneumothorax. Stable small left pleural effusion. 01/24 Bcx: ngtd 01/22 C diff positive 01/26 KUB: Nonspecific bowel gas pattern. Gastrostomy. No definite acute process VRE colonization DM COPD CVA Dementia Parkinsons Cardiac issues Vent dependent with trach G tube PLAN: - continue meropenem #09/03 - increase vanc po to 500mg #03/28- - SP vanc po 125mg #4 - Flagyl IV #05/02- - Daptomycin #/...then deescalate to Vanc IV for the bacteremia - 01/24 DC vancomycin IV #2 - f/u cultures - f/u repeat blood cultures - Monitor CBC and Temps - TTE Thank you for this consult. [facility] will continue to follow the patient with you during this hospitalization. Subjective Allergies: Coded Allergies: OXYTETRACYCLINE (Unverified Allergy, Unknown, 09/05/13) PENICILLINS (Unverified Allergy, Unknown, 06/11/17) Tolerated one dose of Cefepime 06/07/17 Tolerated Cefdinir 06/10/17 Uncoded Allergies: PLASTIC TAPE (Allergy, Mild, ITCHINESS, 08/08/15) MEDICAL TAPE (Allergy, Unknown, 12/10/16) Subjective Tmax 101 Tachycardia better but still with high stool output minimal secretions WBC worse Objective Vital Signs Last 24 Hour Vital Signs Date Time Temp Pulse Resp B/P (MAP) Pulse Ox O2 Delivery O2 Flow Rate FiO2 01/27/19 14:47 108 27 40 01/27/19 13:19 107 31 40 01/27/19 12:00 98.2 117 28 126/68 (87) 100 01/27/19 12:00 40 01/27/19 12:00 Mechanical Ventilator 01/27/19 11:45 118 01/27/19 10:41 109 26 40 01/27/19 08:33 104 31 40 01/27/19 08:00 40 01/27/19 08:00 98.2 118 30 111/69 (83) 100 01/27/19 08:00 Mechanical Ventilator 01/27/19 07:44 116 01/27/19 07:01 118 28 100 Mechanical Ventilator 70.0 40 130 32 65 01/27/19 04:48 105 31 40 01/27/19 04:00 40 01/27/19 04:00 Mechanical Ventilator 01/27/19 04:00 98.8 123 24 105/69 (81) 100 01/27/19 03:42 120 01/27/19 03:00 104 31 40 01/27/19 02:15 110 29 100 Mechanical Ventilator 45.0 40 01/27/19 01:02 122 30 99 Mechanical Ventilator 40 122 27 40 01/27/19 00:00 Mechanical Ventilator 01/27/19 00:00 99.8 123 26 104/65 (78) 100 01/26/19 23:28 122 01/26/19 23:03 120 29 40 01/26/19 21:06 120 29 40 01/26/19 20:00 Mechanical Ventilator 01/26/19 20:00 98.2 121 24 99/70 (80) 100 01/26/19 20:00 40 01/26/19 19:07 119 25 100 Mechanical Ventilator 40 125 28 40 01/26/19 19:01 122 01/26/19 17:05 128 26 40 01/26/19 17:00 Mechanical Ventilator 01/26/19 16:00 Mechanical Ventilator 01/26/19 16:00 97.0 125 25 97/75 (82) 100 01/26/19 16:00 136 Height (Feet): 5 Height (Inches): 6.00 Weight (Pounds): 154 Objective Gen: NAD CV: RRR Resp: coarse. ventilatory sounds Abd: soft. Distended. Hypoactive BS+. G tube Ext: contracted Neuro: not alert Microbiology Date/Time Source Procedure Growth Status 01/24/19 17:30 Blood Blood Culture - Preliminary NO GROWTH AFTER 48 HOURS Resulted 01/24/19 17:15 Blood Blood Culture - Preliminary NO GROWTH AFTER 48 HOURS Resulted Laboratory Tests Test 01/27/19 03:00 White Blood Count 31.2 K/UL (4.8-10.8) *H Red Blood Count 3.77 M/UL (4.70-6.10) L Hemoglobin 10.9 G/DL (14.2-18.0) L Hematocrit 33.5 % (42.0-52.0) L Mean Corpuscular Volume 89 FL (80-99) Mean Corpuscular Hemoglobin 28.9 PG (27.0-31.0) Mean Corpuscular Hemoglobin Concent 32.5 G/DL (32.0-36.0) Red Cell Distribution Width 14.1 % (11.6-14.8) Platelet Count 272 K/UL (150-450) Mean Platelet Volume 7.1 FL (6.5-10.1) Neutrophils (%) (Auto) % (45.0-75.0) Lymphocytes (%) (Auto) % (20.0-45.0) Monocytes (%) (Auto) % (1.0-10.0) Eosinophils (%) (Auto) % (0.0-3.0) Basophils (%) (Auto) % (0.0-2.0) Differential Total Cells Counted 100 Neutrophils % (Manual) 75 % (45-75) Lymphocytes % (Manual) 13 % (20-45) L Monocytes % (Manual) 7 % (1-10) Eosinophils % (Manual) 2 % (0-3) Basophils % (Manual) 0 % (0-2) Band Neutrophils 3 % (0-8) Platelet Estimate Adequate Platelet Morphology Normal Hypochromasia 1+ Anisocytosis 1+ Sodium Level 144 MMOL/L (136-145) Potassium Level 3.6 MMOL/L (3.5-5.1) Chloride Level 115 MMOL/L (98-107) H Carbon Dioxide Level 20 MMOL/L (21-32) L Anion Gap 9 mmol/L (5-15) Blood Urea Nitrogen 23 mg/dL (7-18) H Creatinine 0.5 MG/DL (0.55-1.30) L Estimat Glomerular Filtration Rate > 60 mL/min (>60) Glucose Level 223 MG/DL (74-106) H Calcium Level 7.3 MG/DL (8.5-10.1) L Phosphorus Level 2.4 MG/DL (2.5-4.9) L Magnesium Level 1.5 MG/DL (1.8-2.4) L Total Bilirubin 0.4 MG/DL (0.2-1.0) Direct Bilirubin 0.2 MG/DL (0.0-0.3) Aspartate Amino Transf (AST/SGOT) 73 U/L (15-37) H Alanine Aminotransferase (ALT/SGPT) 63 U/L (12-78) Alkaline Phosphatase 484 U/L (46-116) H Total Protein 5.3 G/DL (6.4-8.2) L Albumin 1.2 G/DL (3.4-5.0) L Current Medications Medications (Trade) Dose Ordered Sig/Sima Route PRN Reason Start Time Stop Time Status Last Admin Dose Admin Acetaminophen (Tylenol) 650 mg Q4H PRN GT Mild Pain/Temp > 100.5 01/24/19 15:28 02/23/19 15:27 01/26/19 12:24 Acetaminophen/ Hydrocodone Bitart ([place] 10) 1 tab Q4H PRN GT For Pain 01/24/19 15:29 01/31/19 15:28 01/26/19 15:06 Ascorbic Acid (Vitamin C) 250 mg DAILY GT 01/25/19 09:00 02/24/19 08:59 01/27/19 08:28 Chlorhexidine Gluconate (Paulina-Hex 2%) 1 applic DAILY@2000 TOPIC 01/24/19 20:00 02/21/19 19:59 01/26/19 21:01 Daptomycin 400 mg/ Sodium Chloride 55 ml @ 100 mls/hr Q24H IV 01/24/19 17:00 01/31/19 16:59 01/26/19 16:59 Dextrose (Dextrose 50%) 25 ml Q30M PRN IV Hypoglycemia 01/24/19 15:30 02/21/19 06:29 Dextrose (Dextrose 50%) 50 ml Q30M PRN IV Hypoglycemia 01/24/19 15:30 02/21/19 06:29 Docusate Sodium (Colace) 100 mg DAILYPRN PRN NG constipation 01/25/19 09:00 02/24/19 08:59 Famotidine (Pepcid I.v.) 20 mg Q12HR IVP 01/24/19 21:00 02/23/19 20:59 01/27/19 08:28 Insulin Aspart (NovoLOG) Q6HR SUBQ 01/26/19 12:00 02/21/19 07:29 01/27/19 11:59 Magnesium Sulfate 100 ml @ 100 mls/hr Q1H IVPB 01/27/19 11:30 01/27/19 15:29 01/27/19 14:53 Meropenem 1 gm/ Sodium Chloride 55 ml @ 110 mls/hr Q12H IVPB 01/24/19 17:00 01/29/19 16:59 01/27/19 05:24 Metronidazole 100 ml @ 100 mls/hr Q8HR IVPB 01/26/19 14:00 02/02/19 13:59 01/27/19 13:50 Midodrine (Pro-Amatine) 2.5 mg THREE TIMES A DAY GT 01/24/19 18:00 02/21/19 12:59 01/27/19 13:01 Morphine Sulfate (Morphine Sulfate) 4 mg Q6H PRN IVP Severe Pain (Pain Scale 7-10) 01/26/19 16:45 02/02/19 16:44 Polyethylene Glycol (Miralax) 17 gm BEDTIME GT 01/24/19 21:00 02/21/19 20:59 01/25/19 20:35 Sodium Chloride 1,000 ml @ 100 mls/hr Q10H IV 01/26/19 17:00 02/25/19 16:59 01/27/19 13:00 Tamsulosin HCl (Flomax) 0.4 mg BID ORAL 01/24/19 18:00 02/21/19 09:59 01/27/19 08:28 Vancomycin HCl (Firvanq) 125 mg FOUR TIMES A DAY GT 01/24/19 18:00 02/02/19 09:01 01/27/19 13:00 Mukesh Betancourt MD Jan 27, 2019 15:07
[2019-01-27 16:00] VITALS: BP 121/75
--- NOTE | 2019-01-27 16:06 | Surgery Progress Note ---
Surgery Progress Note Subjective Additional Comments leukocytosis c diff positive lost of diarrhea Objective Last 24 Hour Vital Signs Date Time Temp Pulse Resp B/P (MAP) Pulse Ox O2 Delivery O2 Flow Rate FiO2 01/27/19 16:00 40 01/27/19 16:00 Mechanical Ventilator 01/27/19 14:47 108 27 40 01/27/19 13:19 107 31 40 01/27/19 12:00 98.2 117 28 126/68 (87) 100 01/27/19 12:00 40 01/27/19 12:00 Mechanical Ventilator 01/27/19 11:45 118 01/27/19 10:41 109 26 40 01/27/19 08:33 104 31 40 01/27/19 08:00 40 01/27/19 08:00 98.2 118 30 111/69 (83) 100 01/27/19 08:00 Mechanical Ventilator 01/27/19 07:44 116 01/27/19 07:01 118 28 100 Mechanical Ventilator 70.0 40 130 32 65 01/27/19 04:48 105 31 40 01/27/19 04:00 40 01/27/19 04:00 Mechanical Ventilator 01/27/19 04:00 98.8 123 24 105/69 (81) 100 01/27/19 03:42 120 01/27/19 03:00 104 31 40 01/27/19 02:15 110 29 100 Mechanical Ventilator 45.0 40 01/27/19 01:02 122 30 99 Mechanical Ventilator 40 122 27 40 01/27/19 00:00 Mechanical Ventilator 01/27/19 00:00 99.8 123 26 104/65 (78) 100 01/26/19 23:28 122 01/26/19 23:03 120 29 40 01/26/19 21:06 120 29 40 01/26/19 20:00 Mechanical Ventilator 01/26/19 20:00 98.2 121 24 99/70 (80) 100 01/26/19 20:00 40 01/26/19 19:07 119 25 100 Mechanical Ventilator 40 125 28 40 01/26/19 19:01 122 01/26/19 17:05 128 26 40 01/26/19 17:00 Mechanical Ventilator I&O Intake and Output 01/26/19 01/27/19 19:00 07:00 Intake Total 2062.3 ml 2253.41 ml Output Total 800 ml 1000 ml Balance 1262.3 ml 1253.41 ml Free Water 250 ml 200 ml IV Total 1097.3 ml 1393.41 ml Tube Feeding 715 ml 660 ml Output Urine Total 600 ml 600 ml Stool Total 200 ml 400 ml Dressing: other Wound: other Drains: other Cardiovascular: RSR Respiratory: decreased breath sounds Abdomen: soft, non-tender, present bowel sounds Extremities: no cyanosis Laboratory Tests Test 01/27/19 03:00 White Blood Count 31.2 K/UL (4.8-10.8) *H Red Blood Count 3.77 M/UL (4.70-6.10) L Hemoglobin 10.9 G/DL (14.2-18.0) L Hematocrit 33.5 % (42.0-52.0) L Mean Corpuscular Volume 89 FL (80-99) Mean Corpuscular Hemoglobin 28.9 PG (27.0-31.0) Mean Corpuscular Hemoglobin Concent 32.5 G/DL (32.0-36.0) Red Cell Distribution Width 14.1 % (11.6-14.8) Platelet Count 272 K/UL (150-450) Mean Platelet Volume 7.1 FL (6.5-10.1) Neutrophils (%) (Auto) % (45.0-75.0) Lymphocytes (%) (Auto) % (20.0-45.0) Monocytes (%) (Auto) % (1.0-10.0) Eosinophils (%) (Auto) % (0.0-3.0) Basophils (%) (Auto) % (0.0-2.0) Differential Total Cells Counted 100 Neutrophils % (Manual) 75 % (45-75) Lymphocytes % (Manual) 13 % (20-45) L Monocytes % (Manual) 7 % (1-10) Eosinophils % (Manual) 2 % (0-3) Basophils % (Manual) 0 % (0-2) Band Neutrophils 3 % (0-8) Platelet Estimate Adequate Platelet Morphology Normal Hypochromasia 1+ Anisocytosis 1+ Sodium Level 144 MMOL/L (136-145) Potassium Level 3.6 MMOL/L (3.5-5.1) Chloride Level 115 MMOL/L (98-107) H Carbon Dioxide Level 20 MMOL/L (21-32) L Anion Gap 9 mmol/L (5-15) Blood Urea Nitrogen 23 mg/dL (7-18) H Creatinine 0.5 MG/DL (0.55-1.30) L Estimat Glomerular Filtration Rate > 60 mL/min (>60) Glucose Level 223 MG/DL (74-106) H Calcium Level 7.3 MG/DL (8.5-10.1) L Phosphorus Level 2.4 MG/DL (2.5-4.9) L Magnesium Level 1.5 MG/DL (1.8-2.4) L Total Bilirubin 0.4 MG/DL (0.2-1.0) Direct Bilirubin 0.2 MG/DL (0.0-0.3) Aspartate Amino Transf (AST/SGOT) 73 U/L (15-37) H Alanine Aminotransferase (ALT/SGPT) 63 U/L (12-78) Alkaline Phosphatase 484 U/L (46-116) H Total Protein 5.3 G/DL (6.4-8.2) L Albumin 1.2 G/DL (3.4-5.0) L Plan Problems: (1) Decubitus skin ulcer Assessment & Plan: Pt presented on admission with contractures, multiple pressure injuries .Pt noted to have 3 pressure injuries L elbow. Laterally L elbow -Full thickness pressure injury with 40% slough at base of wound,60% beefy red. Small amt sanguineous exudate noted(L)1.4cm x (W)2.1cm. Pressure injury L elbow (proximal) (L)0.5cm x (W)1cm . Scattered biofilm at base of wound , borders are macerated.(Inferior) (L)0.4cm x (W)0.5cm . Base of wound moist with Biofilm. Small amt serous exudate noted. (L)0.4cm x (W)0.5cm. Full thickness sacral pressure injury. Base of wound is pink- moist with scattered biofilm,(+) maceration along borders. Non-blanching erythema without induration periwound (L)11.2cm x (W)4.5cm x (D)0.4cm. Two additional pressure injuries noted to L and R sacrum. Partial thickness L sacral pressure injury. Base of wound is moist and viable. Edges are macerated with surrounding non-blanching erythema without induration or elevation in skin temp.(L)0.9cm x (W)1.3cm.R sacral partial thickness pressure injury. Base of wound is moist and viable. Edges flat and adherent to base of wound. Non- blanching erythema without induration or elevation in skin temp.(L)2cm x (W) 1.5cm. Partial thickness pressure injury to outer R buttocks. base of wound moist and viable. Edges flat and adherent to base of wound. Non-blanching erythema periwound.(L)2.3cm x (W)2.5cm. Partial thickness pressure injury inferior but in close proximity R buttocks (L) 2cm x (W)2cm . Base of wound is moist and viable. Surrounding non-blanching erythema without induration. Erythematous and indurated area noted to L groin. No elevation in skin temp noted. Scrotal sac is also erythematous. Non-blanching erythema with fluctuance R hallux. (L)1.6cm x (W)1.7cm. Pressure injury dorsal R foot . Base of wound moist with small amt of Biofilm.(+ ) maceration along borders.(L)1.5cm x (W)1.7cm. R 1st metatarsal necrotic with soft center with slough . Small amt seropurulent exudate noted. Marginal erythema along borders. (L)1.5cm x (W)1.5cm. Non-blanching erythema without induration or fluctuance lateral malleolus(L) 2.5cm x (W)2.5cm. L heel is boggy with non-blanching erythema. R heel is boggy but pink and easily blanchable. Tx.plan: Cleanse Sacral wound with Saline. Apply Therahoney. Apply Triad Paste periwound. Cover with Optifoam drsg. Change every 3 days and prn. Apply Triad paste to pressure injuries R and L sacrum and R outer Buttocks. Cover wounds with Optifoam drsg. Change every 3 days and prn. Apply Triad paste to groin and scrotum with each incontinence care. Cleanse wounds L elbow with saline. Apply Therahoney to wounds. Cover with Optifoam drsg. Change every 3 days and prn. Apply Betadine to wounds dorsal R foot and R 1st metatarsal . Cover with Optifoam drsg. Change daily and prn. Apply Cavilon to R hallux, R and L malleoli and both heels. Cover each site with Optifoam drsgs. Change every 7 days and prn. APM/RENETTA Mattress overlay. Reposition at least every 2hours or as tolerated. Off-load heels with Pillow. Place pillow between knees. (2) Septic shock Assessment & Plan: Leukocytosis - improved Lactic acidosis resolved off pressors on IV fluids tube feeds needs nutritional supplementation Rx as written cont current care and management will follow with recs c diff abx as per ID thank you (3) Feeding by G-tube Assessment & Plan: DAILY ESTIMATED NEEDS: Needs based on Critical care, wound 68kg 22-30 kcals/kg 3967-1188 total kcals 1.25-2 g protein/kg 85-136 g total protein 25-30 mL/kg 6777-2922 total fluid mLs NUTRITION DIAGNOSIS: 1) Swallowing difficulty R/T respiratory status as evidenced by pt vent dep via trach, PEG dep, on TF. 2) Increased kcal/prot needs R/T wound healing as evidenced by pt admitted w/ multiple wounds, including open sacral wound, eval pending. ENTERAL NUTRITION RECOMMENDATIONS: Vital AF 1.2 @55ml x24 hrs to provide 1320ml, 1584kcal, 99g prot, 1071ml free H20 * As medically appropriate w/ hemodynamic stability, rec elemental formula of Vital for GI tolerance. * Initiate VITAL 1.2 @ 15ml/hr x 6 hrs, advance 10ml q 4-6 hrs as tolerated to goal rate. * HOB >30 degrees/ water flushes per MD ADDITIONAL RECOMMENDATIONS: 1) Maintain calibrated bed scale wts 2) Wound healing: add Darryl 1pkt BID w/ TF order Add Vit C 250mg daily (f/up w/ WC eval) 3) F/up w/ H&P 4) Lytes daily, replete as needed (4) Vegetative state Jimmy Tang Jan 27, 2019 16:06
[2019-01-27] MEDS: DAPTOmycin 400 MG in NS 55 ML IV SCH (17:15)
[2019-01-27] MEDS: Vancomycin oral 125mg/2.5ml ORAL SCH ×2 (17:23→20:29)
--- NOTE | 2019-01-27 18:47 | NUR ---
RESPIRATORY NOTE: Received patient on Vent Settings rate of 16, Vt of 500, 40% O2. Flat effect. B/S bilateral rhonchi. Suctioned white-yellow small thin secretions. on a cuffed portex 7
--- NOTE | 2019-01-27 19:19 | NUR ---
HAND-OFF: Report given to GEOVANNA Renee.
--- NOTE | 2019-01-27 19:20 | NUR ---
NURSE NOTES: Received patient from Mayte AUSTIN. Patient is obtunded, receiving oxygen via trach to vent: Portex 7, AC 16, TV 500, Fio2 40%, PEEP 5. G-tube is patent and intact receiving Vital AF 1.2 @55cc/hr. Brooks catheter is patent and draining. Rectal tube is intact and draining. Patient has as a Right IJ TLC central line receiving NS at 100cc/hr. Bed is locked, placed in lowest position, side rails up x3, bed alarm on, call light within reach, head of bed elevated. Will continue to monitor.
[2019-01-27] MEDS: Dyna-Hex 2% Top Sol 2oz TOPIC SCH (19:58)
[2019-01-27 20:00] VITALS: BP 100/80
[2019-01-27] MEDS: Miralax 17gm pkt GT SCH (20:30)
--- NOTE | 2019-01-27 21:48 | NUR ---
NURSE NOTES: Oral care and suctioning was given to patient, patient tolerated well, no signs of distress. Will continue to monitor.
[2019-01-28] VITALS: BP 114/66
--- NOTE | 2019-01-28 00:25 | NUR ---
NURSE NOTES: Dr. Arevalo saw patient. Ordered X-ray of pelvis.
[2019-01-28 04:00] VITALS: BP 112/79
[2019-01-28] MEDS: Meropenem 1 GM in NS 55 ML IVPB SCH ×2 (05:13→18:47)
[2019-01-28 05:41] LABS: HEMATOCRIT 33.5 % (42.0-52.0); HEMOGLOBIN 10.9 G/DL (14.2-18.0); MEAN CORPUSCULAR VOLUME 89 FL (80-99); PLATELET COUNT 308 K/UL (150-450); RED BLOOD COUNT 3.75 M/UL (4.70-6.10); RED CELL DISTRIBUTION WIDTH 14.4 % (11.6-14.8)
[2019-01-28 05:43] LABS: ANION GAP 11 mmol/L (5-15); BLOOD UREA NITROGEN 21 mg/dL (7-18); CALCIUM 6.9 MG/DL (8.5-10.1); CARBON DIOXIDE 19 MMOL/L (21-32); CHLORIDE 115 MMOL/L (98-107); CREATININE 0.5 MG/DL (0.55-1.30); POTASSIUM 2.9 MMOL/L (3.5-5.1); SODIUM 145 MMOL/L (136-145)
[2019-01-28 05:56] LABS: WHITE BLOOD COUNT 30.9 K/UL (4.8-10.8)
[2019-01-28] MEDS: NovoLOG Insulin Flexpen SUBQ SCH ×3 (06:01→18:55)
--- NOTE | 2019-01-28 07:00 | Progress Note ---
DATE: 01/27/2019 SUBJECTIVE: The patient's condition deteriorated. PHYSICAL EXAMINATION: VITAL SIGNS: Blood pressure 114/96, pulse is 113, respirations 22, and temperature 98.3. HEENT: Eyes were normal. ENT, mucous membranes were moist and intact. NECK: Supple with no JVD without lymph nodes. Tracheostomy site is clean. LUNGS: Clear without rhonchi, rales, or wheezing. HEART: Normal sounds with regular beats. ABDOMEN: Soft and nontender with normal bowel sounds. Gastrostomy site is clean. EXTREMITIES: Warm without cyanosis, clubbing, or edema. LABORATORY AND DIAGNOSTIC DATA: Hemoglobin is 10.9, hematocrit 33.5, MCV of 89, WBC 31.2, and platelets 272,000. WBC down from 37.5 to 31.2 over the last 24 hours. His BUN and creatinine are 27 and 0.5 respectively. Sodium is 144, potassium 3.6, chloride 158, CO2 is 29, his calcium is 7.3, his phosphorus is 2.4, and magnesium is 1.5. IMPRESSION: are both negative. Repeat laboratory tests will be done in the a.m. . Boris Arevalo M.D. DR: Lilibeth JOB#: [id number] CC:
--- NOTE | 2019-01-28 07:29 | Urology Progress Note ---
Assessment/Plan Status: unchanged Assessment/Plan: 1. Sepsis. 2. Incontinence. 3. Neurogenic bladder. 4. Proteinuria. 5. Hematuria. 6. Pyuria. 7. History of nephrolithiasis. 8. Urethral stricture. maintain hernández, do not remove switch to larger size hernández at some point hand irrigated and do PRN f/u on final blood cx abx as ordered, ID on case Subjective Allergies: Coded Allergies: OXYTETRACYCLINE (Unverified Allergy, Unknown, 09/05/13) PENICILLINS (Unverified Allergy, Unknown, 06/11/17) Tolerated one dose of Cefepime 06/07/17 Tolerated Cefdinir 06/10/17 Uncoded Allergies: PLASTIC TAPE (Allergy, Mild, ITCHINESS, 08/08/15) MEDICAL TAPE (Allergy, Unknown, 12/10/16) Subjective all noted Objective Last 24 Hour Vital Signs Date Time Temp Pulse Resp B/P (MAP) Pulse Ox O2 Delivery O2 Flow Rate FiO2 01/28/19 07:13 120 37 40 01/28/19 04:28 117 32 40 01/28/19 04:00 40 01/28/19 04:00 Mechanical Ventilator 01/28/19 04:00 99.1 119 36 112/79 (90) 100 01/28/19 03:31 123 01/28/19 02:42 117 33 40 01/28/19 01:04 117 34 40 01/28/19 00:00 98.3 113 32 114/66 (82) 99 01/28/19 00:00 Mechanical Ventilator 01/28/19 00:00 124 01/27/19 23:47 124 32 40 01/27/19 20:50 124 32 40 01/27/19 20:00 99.0 124 31 100/80 (87) 100 01/27/19 20:00 40 01/27/19 20:00 Mechanical Ventilator 01/27/19 19:35 123 01/27/19 18:43 121 25 40 01/27/19 16:49 118 30 40 01/27/19 16:00 40 01/27/19 16:00 Mechanical Ventilator 01/27/19 16:00 98.0 120 31 121/75 (90) 100 01/27/19 15:30 122 01/27/19 14:47 108 27 40 01/27/19 13:19 107 31 40 01/27/19 12:00 98.2 117 28 126/68 (87) 100 01/27/19 12:00 40 01/27/19 12:00 Mechanical Ventilator 01/27/19 11:45 118 01/27/19 10:41 109 26 40 01/27/19 08:33 104 31 40 01/27/19 08:00 40 01/27/19 08:00 98.2 118 30 111/69 (83) 100 01/27/19 08:00 Mechanical Ventilator 01/27/19 07:44 116 Intake and Output 01/27/19 01/28/19 18:59 06:59 Intake Total 2470 ml 1815 ml Output Total 980 ml 500 ml Balance 1490 ml 1315 ml Free Water 200 ml 200 ml IV Total 1610 ml 955 ml Tube Feeding 660 ml 660 ml Output Urine Total 700 ml 400 ml Stool Total 280 ml 100 ml Microbiology Date/Time Source Procedure Growth Status 01/24/19 17:30 Blood Blood Culture - Preliminary NO GROWTH AFTER 72 HOURS Resulted 01/22/19 02:10 Nasal Nares MRSA Culture - Final NO METHICILLIN RESISTANT STAPH AUREUS... Complete 01/22/19 17:23 Stool Clostridium difficile Toxin Assay - Final Complete 01/22/19 04:45 Urine,Clean Catch Urine Culture - Final Enterococcus Faecalis - Vre Complete 01/22/19 02:10 Rectum - Final Escherichia Coli - Cre Complete Current Medications Medications (Trade) Dose Ordered Sig/Sima Route PRN Reason Start Time Stop Time Status Last Admin Dose Admin Acetaminophen (Tylenol) 650 mg Q4H PRN GT Mild Pain/Temp > 100.5 01/24/19 15:28 02/23/19 15:27 01/26/19 12:24 Acetaminophen/ Hydrocodone Bitart ([place] 10/325) 1 tab Q4H PRN GT For Pain 01/24/19 15:29 01/31/19 15:28 01/26/19 15:06 Ascorbic Acid (Vitamin C) 250 mg DAILY GT 01/25/19 09:00 02/24/19 08:59 01/27/19 08:28 Chlorhexidine Gluconate (Paulina-Hex 2%) 1 applic DAILY@2000 TOPIC 01/24/19 20:00 02/21/19 19:59 01/27/19 19:58 Daptomycin 400 mg/ Sodium Chloride 55 ml @ 100 mls/hr Q24H IV 01/24/19 17:00 01/31/19 16:59 01/27/19 17:15 Dextrose (Dextrose 50%) 25 ml Q30M PRN IV Hypoglycemia 01/24/19 15:30 02/21/19 06:29 Dextrose (Dextrose 50%) 50 ml Q30M PRN IV Hypoglycemia 01/24/19 15:30 02/21/19 06:29 Docusate Sodium (Colace) 100 mg DAILYPRN PRN NG constipation 01/25/19 09:00 02/24/19 08:59 Famotidine (Pepcid I.v.) 20 mg Q12HR IVP 01/24/19 21:00 02/23/19 20:59 01/27/19 20:30 Insulin Aspart (NovoLOG) Q6HR SUBQ 01/26/19 12:00 02/21/19 07:29 01/28/19 06:01 Iohexol (OMNIPAQUE-300 100ml) 100 ml ONCE ONCE INJ 01/28/19 08:00 01/28/19 08:01 Meropenem 1 gm/ Sodium Chloride 55 ml @ 110 mls/hr Q12H IVPB 01/24/19 17:00 01/29/19 16:59 01/28/19 05:13 Metronidazole 100 ml @ 100 mls/hr Q8HR IVPB 01/26/19 14:00 02/02/19 13:59 01/28/19 06:01 Midodrine (Pro-Amatine) 2.5 mg THREE TIMES A DAY GT 01/24/19 18:00 02/21/19 12:59 01/27/19 17:23 Morphine Sulfate (Morphine Sulfate) 4 mg Q6H PRN IVP Severe Pain (Pain Scale 7-10) 01/26/19 16:45 02/02/19 16:44 Polyethylene Glycol (Miralax) 17 gm BEDTIME GT 01/24/19 21:00 02/21/19 20:59 01/27/19 20:30 Sodium Chloride 1,000 ml @ 100 mls/hr Q10H IV 01/26/19 17:00 02/25/19 16:59 01/27/19 23:00 Tamsulosin HCl (Flomax) 0.4 mg BID ORAL 01/24/19 18:00 02/21/19 09:59 01/27/19 17:23 Vancomycin HCl (Firvanq) 500 mg FOUR TIMES A DAY ORAL 01/27/19 18:00 02/03/19 17:59 01/27/19 20:29 Laboratory Tests 01/28/19 04:00: White Blood Count 30.9*H, Red Blood Count 3.75L, Hemoglobin 10.9L, Hematocrit 33.5L, Mean Corpuscular Volume 89, Mean Corpuscular Hemoglobin 29.1, Mean Corpuscular Hemoglobin Concent 32.7, Red Cell Distribution Width 14.4, Platelet Count 308, Mean Platelet Volume 6.6, Neutrophils (%) (Auto) , Lymphocytes (%) ( Auto) , Monocytes (%) (Auto) , Eosinophils (%) (Auto) , Basophils (%) (Auto) , Neutrophils % (Manual) [Pending], Lymphocytes % (Manual) [Pending], Platelet Estimate [Pending], Platelet Morphology [Pending], Sodium Level 145, Potassium Level 2.9L, Chloride Level 115H, Carbon Dioxide Level 19L, Anion Gap 11, Blood Urea Nitrogen 21H, Creatinine 0.5L, Estimat Glomerular Filtration Rate > 60, Glucose Level 232H, Calcium Level 6.9L Height (Feet): 5 Height (Inches): 6.00 Weight (Pounds): 155 Objective exam stable hernández indwelling, urine yellow/abhay no active bleeding at meatus renal u/s (01/23) noted Jake Pierre MD Jan 28, 2019 07:29
--- NOTE | 2019-01-28 07:30 | NUR ---
NURSE NOTES: RECEIVED RE[PORT FROM RONALD AUSTIN. PT IN BED, OBTUNDED, OPENS EYES SPONTANEOUSLY. PUPILS 3MM SLUGGISH. GAG REFLEX PRESENT. VSS. TRACH TO VENT PORTEX 7, VENT SETTINGS AC 16, VT 500, PEEP 5, LO5624%. NO RESPIRATORY DISTRESS NOTED. TRACHEAL SECRETIONS THICK, DRESSING INTACT. DIMINISHED BREATH SOUNDS THROUGH OUT. ABDOMEN ROUND, FIRM, BOWEL SOUNDS HYPOACTIVE. G-T CLAMPED, T.F ON HOLD UNTIL AFTER PROCEDURE. RECTAL TUBE IN PLACE, DRAINING BROWN LOOSE STOOL. SKIN- SEE ASSESSMENT, RASH NOTED ON TORSO, SKIN DRY. BILATERAL RADIAL AND PEDAL PULSES WEAK. EDEMA OF UPPER EXTREMITIES AND SCROTAL AREA. RT IJ TLC, DRESSING MOIST, WILL CHANGE. RUNNING NS @100ML/HR. PT ON P 200 MATTRESS. CONTACT AND SZ PRECAUTIONS IN PLACE. BED LOCKED IN LOW POSITION.EDUCATION OF PLAN OF CARE, CT OF PELVIS W/ CONTRAST. WILL CONTINUE TO MONITOR PT. Addendum: 01/28/19 at 2007 by Nilda Tapia RN LATE ENTRY
--- NOTE | 2019-01-28 07:42 | NUR ---
HAND-OFF: Report given to Nilda AUSTIN.
[2019-01-28 08:00] VITALS: BP 92/75
[2019-01-28] MEDS ORDERED: Omnipaque-300 100ml vial INJ ONE (08:00)
--- NOTE | 2019-01-28 08:04 | NUR ---
NURSE NOTES: called Rashid Swenson, Chantel Mike to speak with me, called regarding consent for CT of pelvis with contrast. consent obtained. two r.n witness.
[2019-01-28] MEDS: Tamsulosin 0.4mg cap ORAL SCH ×2 (09:35→18:47)
[2019-01-28] MEDS: Ascorbic Acid 500mg tab GT SCH (09:35)
[2019-01-28] MEDS: Vancomycin oral 125mg/2.5ml ORAL SCH ×4 (09:37→20:29)
--- NOTE | 2019-01-28 11:00 | GI Progress Note ---
Assessment/Plan Problems: (1) Clostridium difficile diarrhea ICD Codes: A04.72 - Enterocolitis due to Clostridium difficile, not specified as recurrent SNOMED: 8596392696970 (2) Severe sepsis ICD Codes: A41.9 - Sepsis, unspecified organism; R65.20 - Severe sepsis without septic shock SNOMED: 70880195 (3) Feeding by G-tube ICD Codes: Z93.1 - Feeding by G-tube SNOMED: 728884511 (4) Diarrhea ICD Codes: R19.7 - Diarrhea, unspecified SNOMED: 05697090 (5) Upper GI bleed ICD Codes: K92.2 - Gastrointestinal hemorrhage, unspecified SNOMED: 08937429 Status: unchanged Status Narrative Discussed with Dr. Rosas. Assessment/Plan No plans for GI procedures at this time given sepsis. Occult blood to rule out any GI bleed, positive Monitor H&H, PRN transfusions Hold PPI given C. difficile H2B Antibiotics per infectious diseases for C. difficile IV hydration plus electrolyte correction GTF Follow labs The patient was seen and examined at bedside and all new and available data was reviewed in the patients chart. I agree with the above findings, impression and plan. (Patient seen earlier today. Signature stamp does not reflect patient encounter time.). - Gaurav Rosas MD Subjective Subjective limited Objective Last 24 Hour Vital Signs Date Time Temp Pulse Resp B/P (MAP) Pulse Ox O2 Delivery O2 Flow Rate FiO2 01/28/19 09:30 114 27 40 01/28/19 07:31 122 01/28/19 07:13 120 37 40 01/28/19 04:28 117 32 40 01/28/19 04:00 40 01/28/19 04:00 Mechanical Ventilator 01/28/19 04:00 99.1 119 36 112/79 (90) 100 01/28/19 03:31 123 01/28/19 02:42 117 33 40 01/28/19 01:04 117 34 40 01/28/19 00:00 98.3 113 32 114/66 (82) 99 01/28/19 00:00 Mechanical Ventilator 01/28/19 00:00 124 01/27/19 23:47 124 32 40 01/27/19 20:50 124 32 40 01/27/19 20:00 99.0 124 31 100/80 (87) 100 01/27/19 20:00 40 01/27/19 20:00 Mechanical Ventilator 01/27/19 19:35 123 01/27/19 18:43 121 25 40 01/27/19 16:49 118 30 40 01/27/19 16:00 40 01/27/19 16:00 Mechanical Ventilator 01/27/19 16:00 98.0 120 31 121/75 (90) 100 01/27/19 15:30 122 01/27/19 14:47 108 27 40 01/27/19 13:19 107 31 40 01/27/19 12:00 98.2 117 28 126/68 (87) 100 01/27/19 12:00 40 01/27/19 12:00 Mechanical Ventilator 01/27/19 11:45 118 Intake and Output 01/27/19 01/28/19 18:59 06:59 Intake Total 2470 ml 1815 ml Output Total 980 ml 500 ml Balance 1490 ml 1315 ml Free Water 200 ml 200 ml IV Total 1610 ml 955 ml Tube Feeding 660 ml 660 ml Output Urine Total 700 ml 400 ml Stool Total 280 ml 100 ml Laboratory Tests Test 01/28/19 04:00 White Blood Count 30.9 K/UL (4.8-10.8) *H Red Blood Count 3.75 M/UL (4.70-6.10) L Hemoglobin 10.9 G/DL (14.2-18.0) L Hematocrit 33.5 % (42.0-52.0) L Mean Corpuscular Volume 89 FL (80-99) Mean Corpuscular Hemoglobin 29.1 PG (27.0-31.0) Mean Corpuscular Hemoglobin Concent 32.7 G/DL (32.0-36.0) Red Cell Distribution Width 14.4 % (11.6-14.8) Platelet Count 308 K/UL (150-450) Mean Platelet Volume 6.6 FL (6.5-10.1) Neutrophils (%) (Auto) % (45.0-75.0) Lymphocytes (%) (Auto) % (20.0-45.0) Monocytes (%) (Auto) % (1.0-10.0) Eosinophils (%) (Auto) % (0.0-3.0) Basophils (%) (Auto) % (0.0-2.0) Differential Total Cells Counted 100 Neutrophils % (Manual) 75 % (45-75) Lymphocytes % (Manual) 10 % (20-45) L Monocytes % (Manual) 8 % (1-10) Eosinophils % (Manual) 7 % (0-3) H Basophils % (Manual) 0 % (0-2) Band Neutrophils 0 % (0-8) Platelet Estimate Adequate Platelet Morphology Normal Hypochromasia 1+ Sodium Level 145 MMOL/L (136-145) Potassium Level 2.9 MMOL/L (3.5-5.1) L Chloride Level 115 MMOL/L (98-107) H Carbon Dioxide Level 19 MMOL/L (21-32) L Anion Gap 11 mmol/L (5-15) Blood Urea Nitrogen 21 mg/dL (7-18) H Creatinine 0.5 MG/DL (0.55-1.30) L Estimat Glomerular Filtration Rate > 60 mL/min (>60) Glucose Level 232 MG/DL (74-106) H Calcium Level 6.9 MG/DL (8.5-10.1) L Height (Feet): 5 Height (Inches): 6.00 Weight (Pounds): 155 General Appearance: no apparent distress Cardiovascular: normal rate Respiratory/Chest: normal breath sounds, no respiratory distress Abdominal Exam: normal bowel sounds, non tender, soft, GT site Extremities: non-tender Good Garcia MALLET CUTTER Jan 28, 2019 11:00
[2019-01-28 12:00] VITALS: BP 94/68
--- NOTE | 2019-01-28 12:00 | NUR ---
NURSE NOTES: PT IN BED, OPENS EYES SPONTANEOUSLY. VSS. TRACH TO VENT PORTEX 7, VENT SETTINGS AC 16, VT 500, PEEP 5, [id number]%. NO RESPIRATORY DISTRESS NOTED. TRACHEAL SECRETIONS THICK. RECTAL TUBE IN PLACE, DRAINING BROWN LOOSE STOOL. SKIN DRY. BILATERAL RADIAL AND PEDAL PULSES WEAK. EDEMA OF UPPER EXTREMITIES AND SCROTAL AREA. RT IJ TLC, DRESSING MOIST, WILL CHANGE. RUNNING NS @100ML/HR. CONTACT AND SZ PRECAUTIONS IN PLACE. BED LOCKED IN LOW POSITION.WILL CONTINUE TO MONITOR PT.
--- NOTE | 2019-01-28 12:06 | NUR ---
RD ASSESSMENT & RECOMMENDATIONS SEE CARE ACTIVITY FOR COMPLETE ASSESSMENT DAILY ESTIMATED NEEDS: Needs based on Critical care, wound 68kg 22-30 kcals/kg 9327-3257 total kcals 1.25-2 g protein/kg 85-136 g total protein 25-30 mL/kg 8651-4781 total fluid mLs NUTRITION DIAGNOSIS: 1) Swallowing difficulty R/T respiratory status as evidenced by pt vent dep via trach, PEG dep, on TF. 2) Increased kcal/prot needs R/T wound healing as evidenced by pt admitted w/ multiple wounds, including full thickness wounds @ lt elbow and sacrum, refer to WC eval. CURRENT TF:Vital AF 1.2 @55ml x24 hrs ENTERAL NUTRITION RECOMMENDATIONS: Vital AF 1.2 @55ml x24 hrs to provide 1320ml, 1584kcal, 99g prot, 1071ml free H20 * Maintain current TF * HOB >30 degrees/ water flushes per MD ADDITIONAL RECOMMENDATIONS: 1) Maintain calibrated bed scale wts 2) Wound healing: add Darryl 1pkt BID continue VIt C 3) Add probiotics: stool c-diff +, diarrhea, on rectal tube 4) Consider long acting insulin for improved BG control: BGs 200's 5) Lytes daily, replete as needed (low K, phos, mag) .
--- NOTE | 2019-01-28 12:48 | Pulmonolgy Critical Care Note ---
Critical Care - Asmt/Plan Problems: (1) Septic shock (2) HCAP (healthcare-associated pneumonia) (3) Chronic respiratory failure (4) Ventilator dependence (5) Vegetative state (6) HARDEEP (acute kidney injury) (7) History of CVA (cerebrovascular accident) (8) Feeding by G-tube (9) HTN (hypertension) (10) Cerebral vascular disease Respiratory: monitor respiratory rate, adjust FIO2, CXR Cardiac: continue to monitor HR/BP Renal: F/U I&O, keep IV fluid, check electrolytes Infectious Disease: check cultures, continue antibiotics Gastrointestinal: continue feedings/current rate Endocrine: check HgA1C Hematologic: monitor H/H, transfuse if hgb<8.5 Neurologic: keep patient comfortable Affect: PRN ativan Prophylaxis: Protonix Time Spent (Minutes): 40 Notes Reviewed: pediatric genetic counselor, cardio, renal Discussed with: nurses, consultants, case repairerclient customer manager - Objective Last 24 Hour Vital Signs Date Time Temp Pulse Resp B/P (MAP) Pulse Ox O2 Delivery O2 Flow Rate FiO2 01/28/19 09:30 114 27 40 01/28/19 07:31 122 01/28/19 07:13 120 37 40 01/28/19 04:28 117 32 40 01/28/19 04:00 40 01/28/19 04:00 Mechanical Ventilator 01/28/19 04:00 99.1 119 36 112/79 (90) 100 01/28/19 03:31 123 01/28/19 02:42 117 33 40 01/28/19 01:04 117 34 40 01/28/19 00:00 98.3 113 32 114/66 (82) 99 01/28/19 00:00 Mechanical Ventilator 01/28/19 00:00 124 01/27/19 23:47 124 32 40 01/27/19 20:50 124 32 40 01/27/19 20:00 99.0 124 31 100/80 (87) 100 01/27/19 20:00 40 01/27/19 20:00 Mechanical Ventilator 01/27/19 19:35 123 01/27/19 18:43 121 25 40 01/27/19 16:49 118 30 40 01/27/19 16:00 40 01/27/19 16:00 Mechanical Ventilator 01/27/19 16:00 98.0 120 31 121/75 (90) 100 01/27/19 15:30 122 01/27/19 14:47 108 27 40 01/27/19 13:19 107 31 40 Status: awake Condition: critical HEENT: atraumatic Neck: full ROM Lungs: rales, rhonchi Heart: HR/BP stable Abdomen: soft Extremities: no C/C/E Decubiti: stage Accucheck: 225 Critical Care - Subjective ROS Limited/Unobtainable: Yes Interval Events: still smelling awful Condition: critical FI02: 40 Vent Support Breath Rate: 16 Vent Support Mode: AC Vent Tidal Volume: 500 Sputum Amount: Moderate PEEP: 5.0 PIP: 27 Tube Feeding Amount: 55 I&O: Intake and Output 01/27/19 01/28/19 18:59 06:59 Intake Total 2470 ml 1815 ml Output Total 980 ml 500 ml Balance 1490 ml 1315 ml Free Water 200 ml 200 ml IV Total 1610 ml 955 ml Tube Feeding 660 ml 660 ml Output Urine Total 700 ml 400 ml Stool Total 280 ml 100 ml Labs: Laboratory Tests Test 01/28/19 04:00 White Blood Count 30.9 K/UL (4.8-10.8) *H Red Blood Count 3.75 M/UL (4.70-6.10) L Hemoglobin 10.9 G/DL (14.2-18.0) L Hematocrit 33.5 % (42.0-52.0) L Mean Corpuscular Volume 89 FL (80-99) Mean Corpuscular Hemoglobin 29.1 PG (27.0-31.0) Mean Corpuscular Hemoglobin Concent 32.7 G/DL (32.0-36.0) Red Cell Distribution Width 14.4 % (11.6-14.8) Platelet Count 308 K/UL (150-450) Mean Platelet Volume 6.6 FL (6.5-10.1) Neutrophils (%) (Auto) % (45.0-75.0) Lymphocytes (%) (Auto) % (20.0-45.0) Monocytes (%) (Auto) % (1.0-10.0) Eosinophils (%) (Auto) % (0.0-3.0) Basophils (%) (Auto) % (0.0-2.0) Differential Total Cells Counted 100 Neutrophils % (Manual) 75 % (45-75) Lymphocytes % (Manual) 10 % (20-45) L Monocytes % (Manual) 8 % (1-10) Eosinophils % (Manual) 7 % (0-3) H Basophils % (Manual) 0 % (0-2) Band Neutrophils 0 % (0-8) Platelet Estimate Adequate Platelet Morphology Normal Hypochromasia 1+ Sodium Level 145 MMOL/L (136-145) Potassium Level 2.9 MMOL/L (3.5-5.1) L Chloride Level 115 MMOL/L (98-107) H Carbon Dioxide Level 19 MMOL/L (21-32) L Anion Gap 11 mmol/L (5-15) Blood Urea Nitrogen 21 mg/dL (7-18) H Creatinine 0.5 MG/DL (0.55-1.30) L Estimat Glomerular Filtration Rate > 60 mL/min (>60) Glucose Level 232 MG/DL (74-106) H Calcium Level 6.9 MG/DL (8.5-10.1) L Sagar Rudd MD Jan 28, 2019 12:48
--- NOTE | 2019-01-28 12:52 | NUR ---
NURSE NOTES: CT SCAN COMPLETE, PT BED IN ROOM ON MONITOR . VSS
--- NOTE | 2019-01-28 13:27 | Nephrology Progress Note ---
Assessment/Plan Problem List: (1) Hypokalemia (2) HARDEEP (acute kidney injury) (3) Sepsis (4) Hyponatremia Assessment HARDEEP (acute kidney injury) HypoNatremia Septic shock Others: HCAP (healthcare-associated pneumonia) Chronic respiratory failure Ventilator dependence Vegetative state History of CVA (cerebrovascular accident) Feeding by G-tube HTN (hypertension) Cerebral vascular disease Plan K Phos mag as needed Hydrate monitor renal parameters Midodrine Antibiotics Avoid nephrotoxics Brooks could not be put in due to resistance start flomax per order Subjective ROS Limited/Unobtainable: Yes Objective Objective Last 24 Hour Vital Signs Date Time Temp Pulse Resp B/P (MAP) Pulse Ox O2 Delivery O2 Flow Rate FiO2 01/28/19 12:00 40 01/28/19 09:30 114 27 40 01/28/19 08:00 40 01/28/19 07:31 122 01/28/19 07:13 120 37 40 01/28/19 04:28 117 32 40 01/28/19 04:00 40 01/28/19 04:00 Mechanical Ventilator 01/28/19 04:00 99.1 119 36 112/79 (90) 100 01/28/19 03:31 123 01/28/19 02:42 117 33 40 01/28/19 01:04 117 34 40 01/28/19 00:00 98.3 113 32 114/66 (82) 99 01/28/19 00:00 Mechanical Ventilator 01/28/19 00:00 124 01/27/19 23:47 124 32 40 01/27/19 20:50 124 32 40 01/27/19 20:00 99.0 124 31 100/80 (87) 100 01/27/19 20:00 40 01/27/19 20:00 Mechanical Ventilator 01/27/19 19:35 123 01/27/19 18:43 121 25 40 01/27/19 16:49 118 30 40 01/27/19 16:00 40 01/27/19 16:00 Mechanical Ventilator 01/27/19 16:00 98.0 120 31 121/75 (90) 100 01/27/19 15:30 122 01/27/19 14:47 108 27 40 Intake and Output 01/27/19 01/28/19 18:59 06:59 Intake Total 2470 ml 1815 ml Output Total 980 ml 500 ml Balance 1490 ml 1315 ml Free Water 200 ml 200 ml IV Total 1610 ml 955 ml Tube Feeding 660 ml 660 ml Output Urine Total 700 ml 400 ml Stool Total 280 ml 100 ml Laboratory Tests 01/28/19 04:00: White Blood Count 30.9*H, Red Blood Count 3.75L, Hemoglobin 10.9L, Hematocrit 33.5L, Mean Corpuscular Volume 89, Mean Corpuscular Hemoglobin 29.1, Mean Corpuscular Hemoglobin Concent 32.7, Red Cell Distribution Width 14.4, Platelet Count 308, Mean Platelet Volume 6.6, Neutrophils (%) (Auto) , Lymphocytes (%) ( Auto) , Monocytes (%) (Auto) , Eosinophils (%) (Auto) , Basophils (%) (Auto) , Differential Total Cells Counted 100, Neutrophils % (Manual) 75, Lymphocytes % ( Manual) 10L, Monocytes % (Manual) 8, Eosinophils % (Manual) 7H, Basophils % ( Manual) 0, Band Neutrophils 0, Platelet Estimate Adequate, Platelet Morphology Normal, Hypochromasia 1+, Sodium Level 145, Potassium Level 2.9L, Chloride Level 115H, Carbon Dioxide Level 19L, Anion Gap 11, Blood Urea Nitrogen 21H, Creatinine 0.5L, Estimat Glomerular Filtration Rate > 60, Glucose Level 232H, Calcium Level 6.9L Height (Feet): 5 Height (Inches): 6.00 Weight (Pounds): 155 General Appearance: no apparent distress EENT: other - trach vent Cardiovascular: tachycardia Respiratory/Chest: decreased breath sounds Abdomen: distended Objective no change Sergey Rivera MD Jan 28, 2019 13:27
[2019-01-28] MEDS: Lactobacillus-GG tablet GT SCH ×2 (13:44→18:47)
--- NOTE | 2019-01-28 14:28 | Diagnostic Imaging Report ---
Indication: Abdominal pain Technique: Continuous helical transaxial imaging of the pelvis was obtained from the iliac crest to the pubic symphysis. Coronal 2-D reformats were also obtained. Study obtained in a Siemens sensation [address] Total Dose length Product (DLP): [address] Dose Index Volume (CTDIvol): 30 mGy Comparison: None Findings: Evaluation was performed for sacral decubitus ulcer. The area of the sacral decubitus ulcer is noted and seen as a ill-defined focus of subcutaneous soft tissue infiltration. There is no abscess identified. No obvious erosion of the visualized sacrum or coccyx identified. There is an anterolisthesis of L5 on S1 mild in degree with associated defect of pars interarticularis at L5. There is evidence of severe proctocolitis with severe thickening of the wall of the sigmoid colon and rectum. There is a moderate amount of fecal material present within the rectum and distal sigmoid colon and a moderate degree of perisigmoid and perirectal inflammation. There is a rectal tube present. The urinary bladder is completely nondistended. Brooks catheter is present. There is mild ascites demonstrated within the visualized pelvis. Aortoiliac calcifications are present. Generalized anasarca noted. IMPRESSION: No evidence of abscess or CT evidence for acute osteomyelitis/erosion of the coccyx/sacrum in the area of the clinically demonstrated decubitus ulceration/wound. The wound itself is not well seen on CT. Severe proctocolitis with wall thickening and inflammation as well as luminal distention due to fecal impaction. Rectal tube noted in place. Brooks catheter in good position. Anasarca L5 spondylolysis. Grade 1 spondylolisthesis L5 on S1. Atherosclerotic vascular disease Ascites The CT scanner at [facility] is accredited by the [employer] and the scans are performed using dose optimization techniques as appropriate to a performed exam including Automatic Exposure control.
[2019-01-28 16:00] VITALS: BP 136/62
--- NOTE | 2019-01-28 16:00 | NUR ---
NURSE NOTES: PT IN BED, OPENS EYES SPONTANEOUSLY. VSS. TRACH TO VENT PORTEX 7, VENT SETTINGS AC 16, VT 500, PEEP 5, [id number]%. NO RESPIRATORY DISTRESS NOTED. RECTAL TUBE IN PLACE, DRAINING BROWN LOOSE STOOL. SKIN DRY. BILATERAL RADIAL AND PEDAL PULSES WEAK. RT IJ TLC, DRESSING MOIST, WILL CHANGE. RUNNING NS @100ML/HR. CONTACT PRECAUTIONS IN PLACE. WILL CONTINUE TO MONITOR PT.
--- NOTE | 2019-01-28 16:03 | Infectious Diseases Prog Note ---
Assessment/Plan Assessment/Plan 63 yo male who was sent to the ED on 01/21/19 for hypotension, fever and respiratory distress. Fever, SP Leukocytosis, fluctuating Gram negative Sepsis 01/22 BCx: ESBL K pneumoniae, GBS, MRSA 01/22 CXR: bilateral opacities 01/22 UA positive. UCx VRE 01/23 CXR: Redemonstration of bibasilar patchy airspace opacities. Unchanged pulmonary vascular congestion. No pneumothorax. Stable small left pleural effusion. 01/24 Bcx: ngtd 01/22 C diff positive 01/26 KUB: Nonspecific bowel gas pattern. Gastrostomy. No definite acute process 01/27 CT Pelvis: Severe proctocolitis with wall thicken in and inflammation as well as luminal distention due to fecal impaction. Rectal tube noted in place. Decubitus ulcer 01/27 CT Pelvis: No evidence of abscess or CT evidence for acute osteomyelitis /erosion of the coccyx/sacrum in the area of the clinically demonstrated decubitus ulceration/wound. The wound itself is not well seen on CT. VRE colonization DM COPD CVA Dementia Parkinsons Cardiac issues Vent dependent with trach G tube PLAN: - continue meropenem #10/03 - increase vanc po to 500mg #/- - SP vanc po 125mg #4 - Flagyl IV #05/30- - Daptomycin #/...then deescalate to Vanc IV for the bacteremia - 01/24 DC vancomycin IV #2 - f/u cultures - f/u repeat blood cultures - Monitor CBC and Temps - TTE Thank you for this consult. [facility] will continue to follow the patient with you during this hospitalization. Subjective Allergies: Coded Allergies: OXYTETRACYCLINE (Unverified Allergy, Unknown, 09/05/13) PENICILLINS (Unverified Allergy, Unknown, 06/11/17) Tolerated one dose of Cefepime 06/07/17 Tolerated Cefdinir 06/10/17 Uncoded Allergies: PLASTIC TAPE (Allergy, Mild, ITCHINESS, 08/08/15) MEDICAL TAPE (Allergy, Unknown, 12/10/16) Subjective Afebrile. Tachycardia but better. FiO2 40%. Minimal secretions. sp CT abdomen Objective Vital Signs Last 24 Hour Vital Signs Date Time Temp Pulse Resp B/P (MAP) Pulse Ox O2 Delivery O2 Flow Rate FiO2 01/28/19 13:20 109 27 40 01/28/19 12:00 40 01/28/19 11:27 113 27 40 01/28/19 09:30 114 27 40 01/28/19 08:00 40 01/28/19 07:31 122 01/28/19 07:13 120 37 40 01/28/19 04:28 117 32 40 01/28/19 04:00 40 01/28/19 04:00 Mechanical Ventilator 01/28/19 04:00 99.1 119 36 112/79 (90) 100 01/28/19 03:31 123 01/28/19 02:42 117 33 40 01/28/19 01:04 117 34 40 01/28/19 00:00 98.3 113 32 114/66 (82) 99 01/28/19 00:00 Mechanical Ventilator 01/28/19 00:00 124 01/27/19 23:47 124 32 40 01/27/19 20:50 124 32 40 01/27/19 20:00 99.0 124 31 100/80 (87) 100 01/27/19 20:00 40 01/27/19 20:00 Mechanical Ventilator 01/27/19 19:35 123 01/27/19 18:43 121 25 40 01/27/19 16:49 118 30 40 Height (Feet): 5 Height (Inches): 6.00 Weight (Pounds): 155 Objective Gen: NAD CV: RRR Resp: coarse. ventilatory sounds Abd: soft. Distended. Hypoactive BS+. G tube Ext: contracted Neuro: not alert Laboratory Tests Test 01/28/19 04:00 White Blood Count 30.9 K/UL (4.8-10.8) *H Red Blood Count 3.75 M/UL (4.70-6.10) L Hemoglobin 10.9 G/DL (14.2-18.0) L Hematocrit 33.5 % (42.0-52.0) L Mean Corpuscular Volume 89 FL (80-99) Mean Corpuscular Hemoglobin 29.1 PG (27.0-31.0) Mean Corpuscular Hemoglobin Concent 32.7 G/DL (32.0-36.0) Red Cell Distribution Width 14.4 % (11.6-14.8) Platelet Count 308 K/UL (150-450) Mean Platelet Volume 6.6 FL (6.5-10.1) Neutrophils (%) (Auto) % (45.0-75.0) Lymphocytes (%) (Auto) % (20.0-45.0) Monocytes (%) (Auto) % (1.0-10.0) Eosinophils (%) (Auto) % (0.0-3.0) Basophils (%) (Auto) % (0.0-2.0) Differential Total Cells Counted 100 Neutrophils % (Manual) 75 % (45-75) Lymphocytes % (Manual) 10 % (20-45) L Monocytes % (Manual) 8 % (1-10) Eosinophils % (Manual) 7 % (0-3) H Basophils % (Manual) 0 % (0-2) Band Neutrophils 0 % (0-8) Platelet Estimate Adequate Platelet Morphology Normal Hypochromasia 1+ Sodium Level 145 MMOL/L (136-145) Potassium Level 2.9 MMOL/L (3.5-5.1) L Chloride Level 115 MMOL/L (98-107) H Carbon Dioxide Level 19 MMOL/L (21-32) L Anion Gap 11 mmol/L (5-15) Blood Urea Nitrogen 21 mg/dL (7-18) H Creatinine 0.5 MG/DL (0.55-1.30) L Estimat Glomerular Filtration Rate > 60 mL/min (>60) Glucose Level 232 MG/DL (74-106) H Calcium Level 6.9 MG/DL (8.5-10.1) L Current Medications Medications (Trade) Dose Ordered Sig/Sima Route PRN Reason Start Time Stop Time Status Last Admin Dose Admin Acetaminophen (Tylenol) 650 mg Q4H PRN GT Mild Pain/Temp > 100.5 01/24/19 15:28 02/23/19 15:27 01/26/19 12:24 Acetaminophen/ Hydrocodone Bitart ([place] 10) 1 tab Q4H PRN GT For Pain 01/24/19 15:29 01/31/19 15:28 01/26/19 15:06 Ascorbic Acid (Vitamin C) 250 mg DAILY GT 01/25/19 09:00 02/24/19 08:59 01/28/19 09:35 Chlorhexidine Gluconate (Paulina-Hex 2%) 1 applic DAILY@1999 TOPIC 11/4/19 20:00 02/21/19 19:59 01/27/19 19:58 Daptomycin 400 mg/ Sodium Chloride 55 ml @ 100 mls/hr Q24H IV 01/24/19 17:00 01/31/19 16:59 01/27/19 17:15 Dextrose (Dextrose 50%) 25 ml Q30M PRN IV Hypoglycemia 01/24/19 15:30 02/21/19 06:29 Dextrose (Dextrose 50%) 50 ml Q30M PRN IV Hypoglycemia 01/24/19 15:30 02/21/19 06:29 Docusate Sodium (Colace) 100 mg DAILYPRN PRN NG constipation 01/25/19 09:00 02/24/19 08:59 Famotidine (Pepcid I.v.) 20 mg Q12HR IVP 01/24/19 21:00 02/23/19 20:59 01/28/19 09:34 Insulin Aspart (NovoLOG) Q6HR SUBQ 01/26/19 12:00 02/21/19 07:29 01/28/19 13:55 Lactobacillus Acidophilus (Culturelle) 1 tab TWICE A DAY GT 01/28/19 12:00 02/27/19 11:59 01/28/19 13:44 Meropenem 1 gm/ Sodium Chloride 55 ml @ 110 mls/hr Q12H IVPB 01/24/19 17:00 02/02/19 16:59 01/28/19 05:13 Metronidazole 100 ml @ 100 mls/hr Q8HR IVPB 01/26/19 14:00 02/02/19 13:59 01/28/19 13:44 Midodrine (Pro-Amatine) 2.5 mg THREE TIMES A DAY GT 01/24/19 18:00 02/21/19 12:59 01/28/19 13:45 Morphine Sulfate (Morphine Sulfate) 4 mg Q6H PRN IVP Severe Pain (Pain Scale 7-10) 01/26/19 16:45 02/02/19 16:44 Polyethylene Glycol (Miralax) 17 gm BEDTIME GT 01/24/19 21:00 02/21/19 20:59 01/27/19 20:30 Sodium Chloride 1,000 ml @ 100 mls/hr Q10H IV 01/26/19 17:00 02/25/19 16:59 01/28/19 09:37 Tamsulosin HCl (Flomax) 0.4 mg BID ORAL 01/24/19 18:00 02/21/19 09:59 01/28/19 09:35 Vancomycin HCl (Firvanq) 500 mg FOUR TIMES A DAY ORAL 01/27/19 18:00 02/03/19 17:59 01/28/19 13:44 Mukesh Betancourt MD Jan 28, 2019 16:03
--- NOTE | 2019-01-28 16:44 | NUR ---
CHEMICAL PUMPER: REVIEW SI: RESP FAILURE TRACH/VENT DEPENDENT . LEUKOCYTOSIS T 99.1 HR 120 RR 37 BP 112/79 SAT 100% MECH VENT FIO2 40 WBC 30.9 H/H 10.9/33.5 K 2.9 IS: DAPTOMYCIN IV NS IVF @ 100ML/HR VANCO HCl PO 4X/DAY MEROPENEM IV Q12HR STEP DOWN STATUS DCP: PATIENT IS FROM [facility]
[2019-01-28] MEDS: DAPTOmycin 400 MG in NS 55 ML IV SCH (18:47)
--- NOTE | 2019-01-28 19:30 | NUR ---
HAND-OFF: Report given to RONALD. ENDORSED RECTAL TUBE REMOVAL, TAP WATER ENEMA. PT IN NO DISTRESS.
--- NOTE | 2019-01-28 19:35 | NUR ---
NURSE NOTES: Received patient from Nilda [place]. Patient is obtunded, receiving oxygen via trach to vent: Portex 7, AC 16, TV 500, Fio2 40%, PEEP 5. G-tube is patent and intact. Brooks catheter is patent and draining. Rectal tube is intact and draining. Patient has as a Right IJ TLC central line receiving NS at 100cc/hr. Bed is locked, placed in lowest position, side rails up x3, bed alarm on, call light within reach, head of bed elevated. Will continue to monitor.
[2019-01-28 20:00] VITALS: BP 110/69
[2019-01-28] MEDS: Miralax 17gm pkt GT SCH (20:29)
[2019-01-28] MEDS: Dyna-Hex 2% Top Sol 2oz TOPIC SCH (20:29)
--- NOTE | 2019-01-28 22:08 | NUR ---
NURSE NOTES: Dr. Tang saw patient, ordered to keep rectal tube in for another day.
--- NOTE | 2019-01-28 22:18 | Surgery Progress Note ---
Surgery Progress Note Subjective Additional Comments wbc 30k labs noted exam unchanged rectal tube with output Objective Last 24 Hour Vital Signs Date Time Temp Pulse Resp B/P (MAP) Pulse Ox O2 Delivery O2 Flow Rate FiO2 01/28/19 21:11 107 23 40 01/28/19 20:00 Mechanical Ventilator 01/28/19 20:00 103 01/28/19 20:00 97.7 106 31 110/69 (83) 100 01/28/19 18:37 102 28 40 01/28/19 17:30 105 26 40 01/28/19 16:00 98.8 105 27 136/62 (86) 100 01/28/19 16:00 106 01/28/19 16:00 40 01/28/19 16:00 Mechanical Ventilator 01/28/19 15:00 101 24 40 01/28/19 13:20 109 27 40 01/28/19 12:00 98.1 109 28 94/68 (77) 100 01/28/19 12:00 Mechanical Ventilator 01/28/19 12:00 40 01/28/19 11:29 108 01/28/19 11:27 113 27 40 01/28/19 09:30 114 27 40 01/28/19 08:00 Mechanical Ventilator 01/28/19 08:00 40 01/28/19 08:00 97.7 115 30 92/75 (81) 100 01/28/19 07:31 122 01/28/19 07:13 120 37 40 01/28/19 04:28 117 32 40 01/28/19 04:00 40 01/28/19 04:00 Mechanical Ventilator 01/28/19 04:00 99.1 119 36 112/79 (90) 100 01/28/19 03:31 123 01/28/19 02:42 117 33 40 01/28/19 01:04 117 34 40 01/28/19 00:00 98.3 113 32 114/66 (82) 99 01/28/19 00:00 Mechanical Ventilator 01/28/19 00:00 124 01/27/19 23:47 124 32 40 I&O Intake and Output 01/27/19 01/28/19 19:00 07:00 Intake Total 2470 ml 1858.33 ml Output Total 980 ml 500 ml Balance 1490 ml 1358.33 ml Free Water 200 ml 200 ml IV Total 1610 ml 1053.33 ml Tube Feeding 660 ml 605 ml Output Urine Total 700 ml 400 ml Stool Total 280 ml 100 ml Dressing: other Wound: other Drains: other Cardiovascular: RSR Respiratory: decreased breath sounds Abdomen: soft, present bowel sounds Extremities: no cyanosis, other Laboratory Tests Test 01/28/19 04:00 White Blood Count 30.9 K/UL (4.8-10.8) *H Red Blood Count 3.75 M/UL (4.70-6.10) L Hemoglobin 10.9 G/DL (14.2-18.0) L Hematocrit 33.5 % (42.0-52.0) L Mean Corpuscular Volume 89 FL (80-99) Mean Corpuscular Hemoglobin 29.1 PG (27.0-31.0) Mean Corpuscular Hemoglobin Concent 32.7 G/DL (32.0-36.0) Red Cell Distribution Width 14.4 % (11.6-14.8) Platelet Count 308 K/UL (150-450) Mean Platelet Volume 6.6 FL (6.5-10.1) Neutrophils (%) (Auto) % (45.0-75.0) Lymphocytes (%) (Auto) % (20.0-45.0) Monocytes (%) (Auto) % (1.0-10.0) Eosinophils (%) (Auto) % (0.0-3.0) Basophils (%) (Auto) % (0.0-2.0) Differential Total Cells Counted 100 Neutrophils % (Manual) 75 % (45-75) Lymphocytes % (Manual) 10 % (20-45) L Monocytes % (Manual) 8 % (1-10) Eosinophils % (Manual) 7 % (0-3) H Basophils % (Manual) 0 % (0-2) Band Neutrophils 0 % (0-8) Platelet Estimate Adequate Platelet Morphology Normal Hypochromasia 1+ Sodium Level 145 MMOL/L (136-145) Potassium Level 2.9 MMOL/L (3.5-5.1) L Chloride Level 115 MMOL/L (98-107) H Carbon Dioxide Level 19 MMOL/L (21-32) L Anion Gap 11 mmol/L (5-15) Blood Urea Nitrogen 21 mg/dL (7-18) H Creatinine 0.5 MG/DL (0.55-1.30) L Estimat Glomerular Filtration Rate > 60 mL/min (>60) Glucose Level 232 MG/DL (74-106) H Calcium Level 6.9 MG/DL (8.5-10.1) L Plan Problems: (1) Decubitus skin ulcer Assessment & Plan: Pt presented on admission with contractures, multiple pressure injuries .Pt noted to have 3 pressure injuries L elbow. Laterally L elbow -Full thickness pressure injury with 40% slough at base of wound,60% beefy red. Small amt sanguineous exudate noted(L)1.4cm x (W)2.1cm. Pressure injury L elbow (proximal) (L)0.5cm x (W)1cm . Scattered biofilm at base of wound , borders are macerated.(Inferior) (L)0.4cm x (W)0.5cm . Base of wound moist with Biofilm. Small amt serous exudate noted. (L)0.4cm x (W)0.5cm. Full thickness sacral pressure injury. Base of wound is pink- moist with scattered biofilm,(+) maceration along borders. Non-blanching erythema without induration periwound (L)11.2cm x (W)4.5cm x (D)0.4cm. Two additional pressure injuries noted to L and R sacrum. Partial thickness L sacral pressure injury. Base of wound is moist and viable. Edges are macerated with surrounding non-blanching erythema without induration or elevation in skin temp.(L)0.9cm x (W)1.3cm.R sacral partial thickness pressure injury. Base of wound is moist and viable. Edges flat and adherent to base of wound. Non- blanching erythema without induration or elevation in skin temp.(L)2cm x (W) 1.5cm. Partial thickness pressure injury to outer R buttocks. base of wound moist and viable. Edges flat and adherent to base of wound. Non-blanching erythema periwound.(L)2.3cm x (W)2.5cm. Partial thickness pressure injury inferior but in close proximity R buttocks (L) 2cm x (W)2cm . Base of wound is moist and viable. Surrounding non-blanching erythema without induration. Erythematous and indurated area noted to L groin. No elevation in skin temp noted. Scrotal sac is also erythematous. Non-blanching erythema with fluctuance R hallux. (L)1.6cm x (W)1.7cm. Pressure injury dorsal R foot . Base of wound moist with small amt of Biofilm.(+ ) maceration along borders.(L)1.5cm x (W)1.7cm. R 1st metatarsal necrotic with soft center with slough . Small amt seropurulent exudate noted. Marginal erythema along borders. (L)1.5cm x (W)1.5cm. Non-blanching erythema without induration or fluctuance lateral malleolus(L) 2.5cm x (W)2.5cm. L heel is boggy with non-blanching erythema. R heel is boggy but pink and easily blanchable. Tx.plan: Cleanse Sacral wound with Saline. Apply Therahoney. Apply Triad Paste periwound. Cover with Optifoam drsg. Change every 3 days and prn. Apply Triad paste to pressure injuries R and L sacrum and R outer Buttocks. Cover wounds with Optifoam drsg. Change every 3 days and prn. Apply Triad paste to groin and scrotum with each incontinence care. Cleanse wounds L elbow with saline. Apply Therahoney to wounds. Cover with Optifoam drsg. Change every 3 days and prn. Apply Betadine to wounds dorsal R foot and R 1st metatarsal . Cover with Optifoam drsg. Change daily and prn. Apply Cavilon to R hallux, R and L malleoli and both heels. Cover each site with Optifoam drsgs. Change every 7 days and prn. APM/RENETTA Mattress overlay. Reposition at least every 2hours or as tolerated. Off-load heels with Pillow. Place pillow between knees. (2) Septic shock Assessment & Plan: Leukocytosis - improved Lactic acidosis resolved off pressors on IV fluids tube feeds needs nutritional supplementation Rx as written cont current care and management will follow with recs c diff cont rectal tube abx as per ID thank you (3) Feeding by G-tube Assessment & Plan: DAILY ESTIMATED NEEDS: Needs based on Critical care, wound 68kg 22-30 kcals/kg 2139-8281 total kcals 1.25-2 g protein/kg 85-136 g total protein 25-30 mL/kg 6029-6874 total fluid mLs NUTRITION DIAGNOSIS: 1) Swallowing difficulty R/T respiratory status as evidenced by pt vent dep via trach, PEG dep, on TF. 2) Increased kcal/prot needs R/T wound healing as evidenced by pt admitted w/ multiple wounds, including open sacral wound, eval pending. ENTERAL NUTRITION RECOMMENDATIONS: Vital AF 1.2 @55ml x24 hrs to provide 1320ml, 1584kcal, 99g prot, 1071ml free H20 * As medically appropriate w/ hemodynamic stability, rec elemental formula of Vital for GI tolerance. * Initiate VITAL 1.2 @ 15ml/hr x 6 hrs, advance 10ml q 4-6 hrs as tolerated to goal rate. * HOB >30 degrees/ water flushes per MD ADDITIONAL RECOMMENDATIONS: 1) Maintain calibrated bed scale wts 2) Wound healing: add Darryl 1pkt BID w/ TF order Add Vit C 250mg daily (f/up w/ WC eval) 3) F/up w/ H&P 4) Lytes daily, replete as needed (4) Vegetative state Jimmy Tang Jan 28, 2019 22:18
[2019-01-28] MEDS ORDERED: NS 275ml ONE ×2 (22:38→22:42)
[2019-01-28] MEDS ORDERED: Tubing IV Secondary IV ONE (22:42)
[2019-01-28] MEDS ORDERED: D5NS 1000ml IV ONE (22:42)
--- NOTE | 2019-01-28 23:12 | NUR ---
NURSE NOTES: Cleaned, repositioned, and did oral care for patient. Patient tolerated well, no signs of distress. Will continue to monitor.
[2019-01-29] VITALS: BP 133/66
[2019-01-29] MEDS: NovoLOG Insulin Flexpen SUBQ SCH ×4 (00:05→17:10)
[2019-01-29 04:00] VITALS: BP 109/50
[2019-01-29] MEDS: Meropenem 1 GM in NS 55 ML IVPB SCH ×2 (04:32→17:10)
[2019-01-29 05:05] LABS: HEMATOCRIT 32.1 % (42.0-52.0); HEMOGLOBIN 10.8 G/DL (14.2-18.0); MEAN CORPUSCULAR VOLUME 88 FL (80-99); PLATELET COUNT 238 K/UL (150-450); RED BLOOD COUNT 3.65 M/UL (4.70-6.10)
[2019-01-29 05:10] LABS: ANION GAP 10 mmol/L (5-15); BLOOD UREA NITROGEN 24 mg/dL (7-18); CALCIUM 6.8 MG/DL (8.5-10.1); CARBON DIOXIDE 19 MMOL/L (21-32); CHLORIDE 117 MMOL/L (98-107); CREATININE 0.4 MG/DL (0.55-1.30); POTASSIUM 3.1 MMOL/L (3.5-5.1); SODIUM 146 MMOL/L (136-145)
[2019-01-29 05:15] LABS: WHITE BLOOD COUNT 28.6 K/UL (4.8-10.8)
--- NOTE | 2019-01-29 06:52 | NUR ---
NURSE NOTES: Left message to Dr. Rivera's office regarding Sodium and Potassium level. Awaiting orders.
--- NOTE | 2019-01-29 07:00 | NUR ---
RESPIRATORY NOTES: Received Patient on Vent settings ACVC RR 16, VT 500, Fio2 40% PEEP +5. Patient has Cuffed Portex 7 tracheostomy tube, secured with tracheostomy ties. Suctioned a minimal amount of white, thin secretions. Patient lying on bed obtundent. Bilateral rhonchi heart throughout both lung donaldson. Vent plugged into red outlet. Alarms are on and audible. Will continue to monitor patient throughout the day.
--- NOTE | 2019-01-29 07:08 | NUR ---
HAND-OFF: Report given to Hieu AUSTIN. Endorsed plan of care. Patient in stable condition.
--- NOTE | 2019-01-29 07:09 | NUR ---
NURSE NOTES: Received report form GEOVANNA Sandoval. Patient is resting in bed, in stable condition. No s/sx of SOB, breathing is even and unlabored. Bed is in lowest position, brakes engaged. Observed no presence of pain or discomfort at this time. Call light is kept within easy reach. Will continue to monitor patient.
--- NOTE | 2019-01-29 07:30 | Progress Note ---
DATE: 01/28/2019 SUBJECTIVE: The patient is afebrile, but remained tachycardic. PHYSICAL EXAMINATION: VITAL SIGNS: Blood pressure 130/62, his pulse is 105, respirations 24, and temperature is 98.8. HEENT: Eyes were normal. ENT, mucous membranes were moist and intact. NECK: Supple with no JVD without lymph nodes. Tracheostomy site is clean. LUNGS: Clear without rhonchi, rales, or wheezing. Secretions are small, thin, and clayton. HEART: Normal sounds with regular beats. There is no S3, S4, or pericardial rub. ABDOMEN: Soft and nontender with normal bowel sounds. Gastrostomy site is clean. EXTREMITIES: Warm without cyanosis, clubbing, or edema. LABORATORY AND DIAGNOSTIC DATA: His hemoglobin is 10.9, hematocrit 33.9, MCV of 89, WBC of 30.9, and platelets 308. WBC was 31.2 yesterday. His BUN and creatinine are 21 and 0.5 respectively. His sodium is 145, potassium 2.9, chloride 115, CO2 was 19, calcium was 6.9. explained the persistent high leukocytosis. There is no evidence evidence of acute osteomyelitis, proctocolitis, wall thickening, and inflammation. He has abdominal distention with fecal impaction. In addition, ascites, atherosclerosis, and spondylolysis of L5 over S1 were identified as well. IMPRESSION: The patient has severe proctitis which is the cause of leukocytosis. The patient had diarrhea, but at the same time, the patient has rectal impaction. Disimpaction maneuver will be done. Repeat laboratory tests will be done in the a.m. Boris Arevalo M.D. DR: AMY JOB#: [id number] CC:
[2019-01-29 08:00] VITALS: BP 102/52
[2019-01-29 08:09] LABS: ALANINE AMINOTRANSFERASE 38 U/L (12-78); ALBUMIN 1.1 G/DL (3.4-5.0); ALKALINE PHOSPHATASE 398 U/L (46-116); ASPARTATE AMINO TRANSFERASE 49 U/L (15-37); BILIRUBIN,DIRECT 0.3 MG/DL (0.0-0.3); BILIRUBIN,TOTAL 0.7 MG/DL (0.2-1.0); PHOSPHORUS 2.2 MG/DL (2.5-4.9)
[2019-01-29] MEDS: Tamsulosin 0.4mg cap ORAL SCH ×2 (08:35→17:10)
[2019-01-29] MEDS: Vancomycin oral 125mg/2.5ml ORAL SCH ×4 (08:35→21:10)
[2019-01-29] MEDS: Ascorbic Acid 500mg tab GT SCH (08:35)
[2019-01-29] MEDS ORDERED: Fleet's Mineral Oil Enema RECTAL SCH (08:45)
--- NOTE | 2019-01-29 08:45 | General Progress Note ---
Assessment/Plan Status: unchanged Assessment/Plan: (1) Clostridium difficile diarrhea ICD Codes: A04.72 - Enterocolitis due to Clostridium difficile, not specified as recurrent SNOMED: 4522482058121 (2) Severe sepsis ICD Codes: A41.9 - Sepsis, unspecified organism; R65.20 - Severe sepsis without septic shock SNOMED: 44254489 (3) Feeding by G-tube ICD Codes: Z93.1 - Feeding by G-tube SNOMED: 142701490 (4) Diarrhea ICD Codes: R19.7 - Diarrhea, unspecified SNOMED: 85461078 (5) Upper GI bleed ICD Codes: K92.2 - Gastrointestinal hemorrhage, unspecified SNOMED: 70293792 Assessment/Plan No plans for GI procedures at this time given sepsis. Monitor H&H, PRN transfusions Occult blood to rule out any GI bleed Hold PPI given C. difficile H2B Antibiotics per infectious diseases for C. difficile IV hydration plus electrolyte correction GTF Follow labs recent CT reviewed mineral oil enema ordered manual disimpaction Subjective ROS Limited/Unobtainable: No Allergies: Coded Allergies: OXYTETRACYCLINE (Unverified Allergy, Unknown, 09/05/13) PENICILLINS (Unverified Allergy, Unknown, 06/11/17) Tolerated one dose of Cefepime 06/07/17 Tolerated Cefdinir 06/10/17 Uncoded Allergies: PLASTIC TAPE (Allergy, Mild, ITCHINESS, 08/08/15) MEDICAL TAPE (Allergy, Unknown, 12/10/16) Objective Last 24 Hour Vital Signs Date Time Temp Pulse Resp B/P (MAP) Pulse Ox O2 Delivery O2 Flow Rate FiO2 01/29/19 08:42 101 33 40 01/29/19 07:29 101 27 40 01/29/19 05:29 100 28 40 01/29/19 04:00 Mechanical Ventilator 01/29/19 04:00 97.8 101 29 109/50 (69) 100 01/29/19 04:00 40 01/29/19 03:50 101 01/29/19 03:25 102 23 40 01/29/19 00:49 98 32 40 01/29/19 00:00 97 01/29/19 00:00 Mechanical Ventilator 01/29/19 00:00 98.9 98 29 133/66 (88) 100 01/28/19 22:49 99 28 40 01/28/19 21:11 107 23 40 01/28/19 20:00 Mechanical Ventilator 01/28/19 20:00 103 01/28/19 20:00 97.7 106 31 110/69 (83) 100 01/28/19 20:00 40 01/28/19 18:37 102 28 40 01/28/19 17:30 105 26 40 01/28/19 16:00 98.8 105 27 136/62 (86) 100 01/28/19 16:00 106 01/28/19 16:00 40 01/28/19 16:00 Mechanical Ventilator 01/28/19 15:00 101 24 40 01/28/19 13:20 109 27 40 01/28/19 12:00 98.1 109 28 94/68 (77) 100 01/28/19 12:00 Mechanical Ventilator 01/28/19 12:00 40 01/28/19 11:29 108 01/28/19 11:27 113 27 40 01/28/19 09:30 114 27 40 Intake and Output 01/28/19 01/29/19 19:00 07:00 Intake Total 1375 ml 1629.993 ml Output Total 595 ml Balance 780 ml 1629.993 ml IV Total 1100 ml 1349.993 ml Tube Feeding 275 ml 280 ml Output Urine Total 395 ml Stool Total 200 ml Laboratory Tests 01/29/19 03:45: White Blood Count 28.6*H, Red Blood Count 3.65L, Hemoglobin 10.8L, Hematocrit 32.1L, Mean Corpuscular Volume 88, Mean Corpuscular Hemoglobin 29.5, Mean Corpuscular Hemoglobin Concent 33.5, Red Cell Distribution Width 14.0, Platelet Count 238, Mean Platelet Volume 6.8, Neutrophils (%) (Auto) , Lymphocytes (%) ( Auto) , Monocytes (%) (Auto) , Eosinophils (%) (Auto) , Basophils (%) (Auto) , Neutrophils % (Manual) [Pending], Lymphocytes % (Manual) [Pending], Platelet Estimate [Pending], Platelet Morphology [Pending], Sodium Level 146H, Potassium Level 3.1L, Chloride Level 117H, Carbon Dioxide Level 19L, Anion Gap 10, Blood Urea Nitrogen 24H, Creatinine 0.4L, Estimat Glomerular Filtration Rate > 60, Glucose Level 184H, Calcium Level 6.8L, Phosphorus Level 2.2L, Magnesium Level 1.6L, Total Bilirubin 0.7, Direct Bilirubin 0.3, Aspartate Amino Transf (AST/ SGOT) 49H, Alanine Aminotransferase (ALT/SGPT) 38, Alkaline Phosphatase 398H, Total Protein 4.8L, Albumin 1.1L Height (Feet): 5 Height (Inches): 6.00 Weight (Pounds): 154 General Appearance: lethargic EENT: normal ENT inspection Neck: normal alignment Cardiovascular: normal rate Respiratory/Chest: decreased breath sounds Abdomen: normal bowel sounds, non tender, soft Extremities: non-tender Gaurav Rosas MD Jan 29, 2019 08:45
--- NOTE | 2019-01-29 09:15 | Urology Progress Note ---
Assessment/Plan Status: unchanged Assessment/Plan: 1. Sepsis. 2. Incontinence. 3. Neurogenic bladder. 4. Proteinuria. 5. Hematuria. 6. Pyuria. 7. History of nephrolithiasis. 8. Urethral stricture. maintain hernández, do not remove switch to larger size hernández at some point hand irrigated and do PRN f/u on final blood cx abx as ordered, ID on case Subjective Allergies: Coded Allergies: OXYTETRACYCLINE (Unverified Allergy, Unknown, 09/05/13) PENICILLINS (Unverified Allergy, Unknown, 06/11/17) Tolerated one dose of Cefepime 06/07/17 Tolerated Cefdinir 06/10/17 Uncoded Allergies: PLASTIC TAPE (Allergy, Mild, ITCHINESS, 08/08/15) MEDICAL TAPE (Allergy, Unknown, 12/10/16) Subjective all noted Objective Last 24 Hour Vital Signs Date Time Temp Pulse Resp B/P (MAP) Pulse Ox O2 Delivery O2 Flow Rate FiO2 01/29/19 08:42 101 33 40 01/29/19 07:29 101 27 40 01/29/19 05:29 100 28 40 01/29/19 04:00 Mechanical Ventilator 01/29/19 04:00 97.8 101 29 109/50 (69) 100 01/29/19 04:00 40 01/29/19 03:50 101 01/29/19 03:25 102 23 40 01/29/19 00:49 98 32 40 01/29/19 00:00 97 01/29/19 00:00 Mechanical Ventilator 01/29/19 00:00 98.9 98 29 133/66 (88) 100 01/28/19 22:49 99 28 40 01/28/19 21:11 107 23 40 01/28/19 20:00 Mechanical Ventilator 01/28/19 20:00 103 01/28/19 20:00 97.7 106 31 110/69 (83) 100 01/28/19 20:00 40 01/28/19 18:37 102 28 40 01/28/19 17:30 105 26 40 01/28/19 16:00 98.8 105 27 136/62 (86) 100 01/28/19 16:00 106 01/28/19 16:00 40 01/28/19 16:00 Mechanical Ventilator 01/28/19 15:00 101 24 40 01/28/19 13:20 109 27 40 01/28/19 12:00 98.1 109 28 94/68 (77) 100 01/28/19 12:00 Mechanical Ventilator 01/28/19 12:00 40 01/28/19 11:29 108 01/28/19 11:27 113 27 40 01/28/19 09:30 114 27 40 Intake and Output 01/28/19 01/29/19 19:00 07:00 Intake Total 1375 ml 1629.993 ml Output Total 595 ml Balance 780 ml 1629.993 ml IV Total 1100 ml 1349.993 ml Tube Feeding 275 ml 280 ml Output Urine Total 395 ml Stool Total 200 ml Microbiology Date/Time Source Procedure Growth Status 01/24/19 17:30 Blood Blood Culture - Preliminary NO GROWTH AFTER 4 DAYS Resulted 01/22/19 02:10 Nasal Nares MRSA Culture - Final NO METHICILLIN RESISTANT STAPH AUREUS... Complete 01/22/19 17:23 Stool Clostridium difficile Toxin Assay - Final Complete 01/22/19 04:45 Urine,Clean Catch Urine Culture - Final Enterococcus Faecalis - Vre Complete 01/22/19 02:10 Rectum - Final Escherichia Coli - Cre Complete Current Medications Medications (Trade) Dose Ordered Sig/Sima Route PRN Reason Start Time Stop Time Status Last Admin Dose Admin Acetaminophen (Tylenol) 650 mg Q4H PRN GT Mild Pain/Temp > 100.5 01/24/19 15:28 02/23/19 15:27 01/26/19 12:24 Acetaminophen/ Hydrocodone Bitart (O'Neals 10/325) 1 tab Q4H PRN GT For Pain 01/24/19 15:29 01/31/19 15:28 01/26/19 15:06 Ascorbic Acid (Vitamin C) 250 mg DAILY GT 01/25/19 09:00 02/24/19 08:59 01/29/19 08:35 Chlorhexidine Gluconate (Paulina-Hex 2%) 1 applic DAILY@2000 TOPIC 01/24/19 20:00 02/21/19 19:59 01/28/19 20:29 Daptomycin 400 mg/ Sodium Chloride 55 ml @ 100 mls/hr Q24H IV 01/24/19 17:00 01/31/19 16:59 01/28/19 18:47 Dextrose (Dextrose 50%) 25 ml Q30M PRN IV Hypoglycemia 01/24/19 15:30 02/21/19 06:29 Dextrose (Dextrose 50%) 50 ml Q30M PRN IV Hypoglycemia 01/24/19 15:30 02/21/19 06:29 Famotidine (Pepcid I.v.) 20 mg Q12HR IVP 01/24/19 21:00 02/23/19 20:59 01/29/19 08:35 Insulin Aspart (NovoLOG) Q6HR SUBQ 01/26/19 12:00 02/21/19 07:29 01/29/19 05:38 Magnesium Sulfate 2000 mg/Sodium Chloride 114 ml @ 57 mls/hr ONCE ONCE IV 01/29/19 09:30 01/29/19 11:29 Meropenem 1 gm/ Sodium Chloride 55 ml @ 110 mls/hr Q12H IVPB 01/24/19 17:00 02/02/19 16:59 01/29/19 04:32 Metronidazole 100 ml @ 100 mls/hr Q8HR IVPB 01/26/19 14:00 02/02/19 13:59 01/29/19 05:00 Midodrine (Pro-Amatine) 2.5 mg THREE TIMES A DAY GT 01/24/19 18:00 02/21/19 12:59 01/29/19 08:35 Mineral Oil (Fleet's Mineral Oil Enema) 133 ml ONCE RECTAL 01/29/19 08:45 01/29/19 10:00 Morphine Sulfate (Morphine Sulfate) 4 mg Q6H PRN IVP Severe Pain (Pain Scale 7-10) 01/26/19 16:45 02/02/19 16:44 Potassium Chloride 100 ml @ 100 mls/hr Q1H IV 01/29/19 08:30 01/29/19 12:29 01/29/19 08:35 Sodium Chloride 1,000 ml @ 100 mls/hr Q10H IV 01/26/19 17:00 02/25/19 16:59 01/29/19 05:01 Tamsulosin HCl (Flomax) 0.4 mg BID ORAL 01/24/19 18:00 02/21/19 09:59 01/29/19 08:35 Vancomycin HCl (Firvanq) 500 mg FOUR TIMES A DAY ORAL 01/27/19 18:00 02/03/19 17:59 01/29/19 08:35 Laboratory Tests 01/29/19 03:45: White Blood Count 28.6*H, Red Blood Count 3.65L, Hemoglobin 10.8L, Hematocrit 32.1L, Mean Corpuscular Volume 88, Mean Corpuscular Hemoglobin 29.5, Mean Corpuscular Hemoglobin Concent 33.5, Red Cell Distribution Width 14.0, Platelet Count 238, Mean Platelet Volume 6.8, Neutrophils (%) (Auto) , Lymphocytes (%) ( Auto) , Monocytes (%) (Auto) , Eosinophils (%) (Auto) , Basophils (%) (Auto) , Neutrophils % (Manual) [Pending], Lymphocytes % (Manual) [Pending], Platelet Estimate [Pending], Platelet Morphology [Pending], Sodium Level 146H, Potassium Level 3.1L, Chloride Level 117H, Carbon Dioxide Level 19L, Anion Gap 10, Blood Urea Nitrogen 24H, Creatinine 0.4L, Estimat Glomerular Filtration Rate > 60, Glucose Level 184H, Calcium Level 6.8L, Phosphorus Level 2.2L, Magnesium Level 1.6L, Total Bilirubin 0.7, Direct Bilirubin 0.3, Aspartate Amino Transf (AST/ SGOT) 49H, Alanine Aminotransferase (ALT/SGPT) 38, Alkaline Phosphatase 398H, Total Protein 4.8L, Albumin 1.1L Height (Feet): 5 Height (Inches): 6.00 Weight (Pounds): 154 Objective exam stable hernández indwelling, urine yellow/abhay no active bleeding at meatus renal u/s (01/23) noted Jake Pierre MD Jan 29, 2019 09:15
[2019-01-29] MEDS ORDERED: NS IV ONE (09:30)
[2019-01-29] MEDS ORDERED: MAGNESIUM SULFATE IV ONE (09:30)
--- NOTE | 2019-01-29 09:58 | Nephrology Progress Note ---
Assessment/Plan Problem List: (1) Hypokalemia (2) HARDEEP (acute kidney injury) (3) Sepsis (4) Hyponatremia Assessment HARDEEP (acute kidney injury) HypoNatremia Septic shock Others: HCAP (healthcare-associated pneumonia) Chronic respiratory failure Ventilator dependence Vegetative state History of CVA (cerebrovascular accident) Feeding by G-tube HTN (hypertension) Cerebral vascular disease Plan K Phos mag as needed Hydrate monitor renal parameters Midodrine Antibiotics Avoid nephrotoxics Brooks could not be put in due to resistance start flomax per order Subjective ROS Limited/Unobtainable: Yes Objective Objective Last 24 Hour Vital Signs Date Time Temp Pulse Resp B/P (MAP) Pulse Ox O2 Delivery O2 Flow Rate FiO2 01/29/19 08:42 101 33 40 01/29/19 08:00 Mechanical Ventilator 01/29/19 08:00 40 01/29/19 08:00 97.5 103 29 102/52 (69) 100 01/29/19 07:29 101 27 40 01/29/19 05:29 100 28 40 01/29/19 04:00 Mechanical Ventilator 01/29/19 04:00 97.8 101 29 109/50 (69) 100 01/29/19 04:00 40 01/29/19 03:50 101 01/29/19 03:25 102 23 40 01/29/19 00:49 98 32 40 01/29/19 00:00 97 01/29/19 00:00 Mechanical Ventilator 01/29/19 00:00 98.9 98 29 133/66 (88) 100 01/28/19 22:49 99 28 40 01/28/19 21:11 107 23 40 01/28/19 20:00 Mechanical Ventilator 01/28/19 20:00 103 01/28/19 20:00 97.7 106 31 110/69 (83) 100 01/28/19 20:00 40 01/28/19 18:37 102 28 40 01/28/19 17:30 105 26 40 01/28/19 16:00 98.8 105 27 136/62 (86) 100 01/28/19 16:00 106 01/28/19 16:00 40 01/28/19 16:00 Mechanical Ventilator 01/28/19 15:00 101 24 40 01/28/19 13:20 109 27 40 01/28/19 12:00 98.1 109 28 94/68 (77) 100 01/28/19 12:00 Mechanical Ventilator 01/28/19 12:00 40 01/28/19 11:29 108 01/28/19 11:27 113 27 40 Intake and Output 01/28/19 01/29/19 19:00 07:00 Intake Total 1375 ml 1629.993 ml Output Total 595 ml Balance 780 ml 1629.993 ml IV Total 1100 ml 1349.993 ml Tube Feeding 275 ml 280 ml Output Urine Total 395 ml Stool Total 200 ml Laboratory Tests 01/29/19 03:45: White Blood Count 28.6*H, Red Blood Count 3.65L, Hemoglobin 10.8L, Hematocrit 32.1L, Mean Corpuscular Volume 88, Mean Corpuscular Hemoglobin 29.5, Mean Corpuscular Hemoglobin Concent 33.5, Red Cell Distribution Width 14.0, Platelet Count 238, Mean Platelet Volume 6.8, Neutrophils (%) (Auto) , Lymphocytes (%) ( Auto) , Monocytes (%) (Auto) , Eosinophils (%) (Auto) , Basophils (%) (Auto) , Neutrophils % (Manual) [Pending], Lymphocytes % (Manual) [Pending], Platelet Estimate [Pending], Platelet Morphology [Pending], Sodium Level 146H, Potassium Level 3.1L, Chloride Level 117H, Carbon Dioxide Level 19L, Anion Gap 10, Blood Urea Nitrogen 24H, Creatinine 0.4L, Estimat Glomerular Filtration Rate > 60, Glucose Level 184H, Calcium Level 6.8L, Phosphorus Level 2.2L, Magnesium Level 1.6L, Total Bilirubin 0.7, Direct Bilirubin 0.3, Aspartate Amino Transf (AST/ SGOT) 49H, Alanine Aminotransferase (ALT/SGPT) 38, Alkaline Phosphatase 398H, Total Protein 4.8L, Albumin 1.1L Height (Feet): 5 Height (Inches): 6.00 Weight (Pounds): 154 General Appearance: no apparent distress EENT: other - vented Cardiovascular: tachycardia Respiratory/Chest: decreased breath sounds Abdomen: distended Objective no change Sergey Rivera MD Jan 29, 2019 09:58
[2019-01-29] MEDS ORDERED: Potassium Phosphate 20 MM in NS 275 ML IV ONE (11:00)
[2019-01-29 12:00] VITALS: BP 107/55
--- NOTE | 2019-01-29 12:50 | NUR ---
NURSE NOTES: Per respiratory therapist patient's tracheostomy cuff is noted leaking. Dr. Rudd at nurse station made aware and ordered to replace tracheostomy cuff with same size, Portex 7, by respiratory therapist. Order entered, noted, and carried out. Charge nurse made aware. Will continue to monitor patient.
--- NOTE | 2019-01-29 12:59 | NUR ---
NURSE NOTES: Tracheostomy replaced at bedside by respiratory therapist, Marilynn 7 used. Patient tolerated procedure. Patient tolerating vent settings as ordered. Will continue to monitor patient.
--- NOTE | 2019-01-29 13:14 | NUR ---
RESPIRATORY NOTES: Tracheostomy tube replaced due to large leak. Successfully placed a Cuffed Portex 7 tracheostomy tube with help from Hieu AUSTIN. Will continue to closely monitor.
--- NOTE | 2019-01-29 14:29 | Surgery Progress Note ---
Surgery Progress Note Subjective Additional Comments leukocytosis slightly lower exam unchanged diarrhea still as per report Objective Last 24 Hour Vital Signs Date Time Temp Pulse Resp B/P (MAP) Pulse Ox O2 Delivery O2 Flow Rate FiO2 01/29/19 12:48 104 35 40 01/29/19 12:00 97.5 102 27 107/55 (72) 100 01/29/19 12:00 101 01/29/19 12:00 Mechanical Ventilator 01/29/19 12:00 40 01/29/19 10:38 100 27 40 01/29/19 08:42 101 33 40 01/29/19 08:00 Mechanical Ventilator 01/29/19 08:00 40 01/29/19 08:00 97.5 103 29 102/52 (69) 100 01/29/19 08:00 101 01/29/19 07:29 101 27 40 01/29/19 05:29 100 28 40 01/29/19 04:00 Mechanical Ventilator 01/29/19 04:00 97.8 101 29 109/50 (69) 100 01/29/19 04:00 40 01/29/19 03:50 101 01/29/19 03:25 102 23 40 01/29/19 00:49 98 32 40 01/29/19 00:00 97 01/29/19 00:00 Mechanical Ventilator 01/29/19 00:00 98.9 98 29 133/66 (88) 100 01/28/19 22:49 99 28 40 01/28/19 21:11 107 23 40 01/28/19 20:00 Mechanical Ventilator 01/28/19 20:00 103 01/28/19 20:00 97.7 106 31 110/69 (83) 100 01/28/19 20:00 40 01/28/19 18:37 102 28 40 01/28/19 17:30 105 26 40 01/28/19 16:00 98.8 105 27 136/62 (86) 100 01/28/19 16:00 106 01/28/19 16:00 40 01/28/19 16:00 Mechanical Ventilator 01/28/19 15:00 101 24 40 I&O Intake and Output 01/28/19 01/29/19 18:59 06:59 Intake Total 1573.33 ml 1489.993 ml Output Total 595 ml Balance 978.33 ml 1489.993 ml IV Total 1298.33 ml 1249.993 ml Tube Feeding 275 ml 240 ml Output Urine Total 395 ml Stool Total 200 ml Dressing: other Wound: other Drains: other Cardiovascular: RSR Respiratory: decreased breath sounds Abdomen: soft, present bowel sounds, non-distended Extremities: no cyanosis Laboratory Tests Test 01/29/19 03:45 White Blood Count 28.6 K/UL (4.8-10.8) *H Red Blood Count 3.65 M/UL (4.70-6.10) L Hemoglobin 10.8 G/DL (14.2-18.0) L Hematocrit 32.1 % (42.0-52.0) L Mean Corpuscular Volume 88 FL (80-99) Mean Corpuscular Hemoglobin 29.5 PG (27.0-31.0) Mean Corpuscular Hemoglobin Concent 33.5 G/DL (32.0-36.0) Red Cell Distribution Width 14.0 % (11.6-14.8) Platelet Count 238 K/UL (150-450) Mean Platelet Volume 6.8 FL (6.5-10.1) Neutrophils (%) (Auto) % (45.0-75.0) Lymphocytes (%) (Auto) % (20.0-45.0) Monocytes (%) (Auto) % (1.0-10.0) Eosinophils (%) (Auto) % (0.0-3.0) Basophils (%) (Auto) % (0.0-2.0) Differential Total Cells Counted 100 Neutrophils % (Manual) 74 % (45-75) Lymphocytes % (Manual) 15 % (20-45) L Monocytes % (Manual) 3 % (1-10) Eosinophils % (Manual) 8 % (0-3) H Basophils % (Manual) 0 % (0-2) Band Neutrophils 0 % (0-8) Platelet Estimate Adequate Platelet Morphology Normal Hypochromasia 1+ Anisocytosis 1+ Sodium Level 146 MMOL/L (136-145) H Potassium Level 3.1 MMOL/L (3.5-5.1) L Chloride Level 117 MMOL/L (98-107) H Carbon Dioxide Level 19 MMOL/L (21-32) L Anion Gap 10 mmol/L (5-15) Blood Urea Nitrogen 24 mg/dL (7-18) H Creatinine 0.4 MG/DL (0.55-1.30) L Estimat Glomerular Filtration Rate > 60 mL/min (>60) Glucose Level 184 MG/DL (74-106) H Calcium Level 6.8 MG/DL (8.5-10.1) L Phosphorus Level 2.2 MG/DL (2.5-4.9) L Magnesium Level 1.6 MG/DL (1.8-2.4) L Total Bilirubin 0.7 MG/DL (0.2-1.0) Direct Bilirubin 0.3 MG/DL (0.0-0.3) Aspartate Amino Transf (AST/SGOT) 49 U/L (15-37) H Alanine Aminotransferase (ALT/SGPT) 38 U/L (12-78) Alkaline Phosphatase 398 U/L (46-116) H Total Protein 4.8 G/DL (6.4-8.2) L Albumin 1.1 G/DL (3.4-5.0) L Plan Problems: (1) Decubitus skin ulcer Assessment & Plan: Pt presented on admission with contractures, multiple pressure injuries .Pt noted to have 3 pressure injuries L elbow. Laterally L elbow -Full thickness pressure injury with 40% slough at base of wound,60% beefy red. Small amt sanguineous exudate noted(L)1.4cm x (W)2.1cm. Pressure injury L elbow (proximal) (L)0.5cm x (W)1cm . Scattered biofilm at base of wound , borders are macerated.(Inferior) (L)0.4cm x (W)0.5cm . Base of wound moist with Biofilm. Small amt serous exudate noted. (L)0.4cm x (W)0.5cm. Full thickness sacral pressure injury. Base of wound is pink- moist with scattered biofilm,(+) maceration along borders. Non-blanching erythema without induration periwound (L)11.2cm x (W)4.5cm x (D)0.4cm. Two additional pressure injuries noted to L and R sacrum. Partial thickness L sacral pressure injury. Base of wound is moist and viable. Edges are macerated with surrounding non-blanching erythema without induration or elevation in skin temp.(L)0.9cm x (W)1.3cm.R sacral partial thickness pressure injury. Base of wound is moist and viable. Edges flat and adherent to base of wound. Non- blanching erythema without induration or elevation in skin temp.(L)2cm x (W) 1.5cm. Partial thickness pressure injury to outer R buttocks. base of wound moist and viable. Edges flat and adherent to base of wound. Non-blanching erythema periwound.(L)2.3cm x (W)2.5cm. Partial thickness pressure injury inferior but in close proximity R buttocks (L) 2cm x (W)2cm . Base of wound is moist and viable. Surrounding non-blanching erythema without induration. Erythematous and indurated area noted to L groin. No elevation in skin temp noted. Scrotal sac is also erythematous. Non-blanching erythema with fluctuance R hallux. (L)1.6cm x (W)1.7cm. Pressure injury dorsal R foot . Base of wound moist with small amt of Biofilm.(+ ) maceration along borders.(L)1.5cm x (W)1.7cm. R 1st metatarsal necrotic with soft center with slough . Small amt seropurulent exudate noted. Marginal erythema along borders. (L)1.5cm x (W)1.5cm. Non-blanching erythema without induration or fluctuance lateral malleolus(L) 2.5cm x (W)2.5cm. L heel is boggy with non-blanching erythema. R heel is boggy but pink and easily blanchable. Tx.plan: Cleanse Sacral wound with Saline. Apply Therahoney. Apply Triad Paste periwound. Cover with Optifoam drsg. Change every 3 days and prn. Apply Triad paste to pressure injuries R and L sacrum and R outer Buttocks. Cover wounds with Optifoam drsg. Change every 3 days and prn. Apply Triad paste to groin and scrotum with each incontinence care. Cleanse wounds L elbow with saline. Apply Therahoney to wounds. Cover with Optifoam drsg. Change every 3 days and prn. Apply Betadine to wounds dorsal R foot and R 1st metatarsal . Cover with Optifoam drsg. Change daily and prn. Apply Cavilon to R hallux, R and L malleoli and both heels. Cover each site with Optifoam drsgs. Change every 7 days and prn. APM/RENETTA Mattress overlay. Reposition at least every 2hours or as tolerated. Off-load heels with Pillow. Place pillow between knees. (2) Septic shock Assessment & Plan: Leukocytosis - improved Lactic acidosis resolved off pressors on IV fluids tube feeds needs nutritional supplementation Rx as written cont current care and management will follow with recs c diff cont rectal tube abx as per ID thank you (3) Feeding by G-tube Assessment & Plan: DAILY ESTIMATED NEEDS: Needs based on Critical care, wound 68kg 22-30 kcals/kg 5445-8776 total kcals 1.25-2 g protein/kg 85-136 g total protein 25-30 mL/kg 6165-4737 total fluid mLs NUTRITION DIAGNOSIS: 1) Swallowing difficulty R/T respiratory status as evidenced by pt vent dep via trach, PEG dep, on TF. 2) Increased kcal/prot needs R/T wound healing as evidenced by pt admitted w/ multiple wounds, including open sacral wound, eval pending. ENTERAL NUTRITION RECOMMENDATIONS: Vital AF 1.2 @55ml x24 hrs to provide 1320ml, 1584kcal, 99g prot, 1071ml free H20 * As medically appropriate w/ hemodynamic stability, rec elemental formula of Vital for GI tolerance. * Initiate VITAL 1.2 @ 15ml/hr x 6 hrs, advance 10ml q 4-6 hrs as tolerated to goal rate. * HOB >30 degrees/ water flushes per MD ADDITIONAL RECOMMENDATIONS: 1) Maintain calibrated bed scale wts 2) Wound healing: add Darryl 1pkt BID w/ TF order Add Vit C 250mg daily (f/up w/ WC eval) 3) F/up w/ H&P 4) Lytes daily, replete as needed (4) Vegetative state Jimmy Tang Jan 29, 2019 14:28
[2019-01-29] MEDS ORDERED: LORazepam Inj 2mg/ml 1ml IV PRN (14:30)
--- NOTE | 2019-01-29 14:45 | Pulmonolgy Critical Care Note ---
Critical Care - Asmt/Plan Problems: (1) Septic shock (2) HCAP (healthcare-associated pneumonia) (3) Chronic respiratory failure (4) Ventilator dependence (5) Vegetative state (6) HARDEEP (acute kidney injury) (7) History of CVA (cerebrovascular accident) (8) Feeding by G-tube (9) HTN (hypertension) (10) Cerebral vascular disease Respiratory: monitor respiratory rate, adjust FIO2 Cardiac: continue to monitor HR/BP Renal: F/U I&O Infectious Disease: check cultures Gastrointestinal: continue feedings/current rate Endocrine: monitor blood sugar, check HgA1C Hematologic: transfuse if hgb<8.5 Neurologic: PRN Ativan, keep patient comfortable Affect: PRN ativan Notes Reviewed: renal, ID Discussed with: nurses, consultants, spring encasertextile conversion manager - Objective Last 24 Hour Vital Signs Date Time Temp Pulse Resp B/P (MAP) Pulse Ox O2 Delivery O2 Flow Rate FiO2 01/29/19 12:48 104 35 40 01/29/19 12:00 97.5 102 27 107/55 (72) 100 01/29/19 12:00 101 01/29/19 12:00 Mechanical Ventilator 01/29/19 12:00 40 01/29/19 10:38 100 27 40 01/29/19 08:42 101 33 40 01/29/19 08:00 Mechanical Ventilator 01/29/19 08:00 40 01/29/19 08:00 97.5 103 29 102/52 (69) 100 01/29/19 08:00 101 01/29/19 07:29 101 27 40 01/29/19 05:29 100 28 40 01/29/19 04:00 Mechanical Ventilator 01/29/19 04:00 97.8 101 29 109/50 (69) 100 01/29/19 04:00 40 01/29/19 03:50 101 01/29/19 03:25 102 23 40 01/29/19 00:49 98 32 40 01/29/19 00:00 97 01/29/19 00:00 Mechanical Ventilator 01/29/19 00:00 98.9 98 29 133/66 (88) 100 01/28/19 22:49 99 28 40 01/28/19 21:11 107 23 40 01/28/19 20:00 Mechanical Ventilator 01/28/19 20:00 103 01/28/19 20:00 97.7 106 31 110/69 (83) 100 01/28/19 20:00 40 01/28/19 18:37 102 28 40 01/28/19 17:30 105 26 40 01/28/19 16:00 98.8 105 27 136/62 (86) 100 01/28/19 16:00 106 01/28/19 16:00 40 01/28/19 16:00 Mechanical Ventilator 01/28/19 15:00 101 24 40 Status: awake Condition: critical Neck: full ROM Lungs: clear Heart: HR/BP stable, regular Extremities: no C/C/E Accucheck: 198 Critical Care - Subjective ROS Limited/Unobtainable: Yes Condition: critical FI02: 40 Vent Support Breath Rate: 16 Vent Support Mode: AC Vent Tidal Volume: 500 Sputum Amount: Small PEEP: 5.0 PIP: 27 Tube Feeding Amount: 40 I&O: Intake and Output 01/28/19 01/29/19 18:59 06:59 Intake Total 1573.33 ml 1489.993 ml Output Total 595 ml Balance 978.33 ml 1489.993 ml IV Total 1298.33 ml 1249.993 ml Tube Feeding 275 ml 240 ml Output Urine Total 395 ml Stool Total 200 ml Labs: Laboratory Tests Test 01/29/19 03:45 White Blood Count 28.6 K/UL (4.8-10.8) *H Red Blood Count 3.65 M/UL (4.70-6.10) L Hemoglobin 10.8 G/DL (14.2-18.0) L Hematocrit 32.1 % (42.0-52.0) L Mean Corpuscular Volume 88 FL (80-99) Mean Corpuscular Hemoglobin 29.5 PG (27.0-31.0) Mean Corpuscular Hemoglobin Concent 33.5 G/DL (32.0-36.0) Red Cell Distribution Width 14.0 % (11.6-14.8) Platelet Count 238 K/UL (150-450) Mean Platelet Volume 6.8 FL (6.5-10.1) Neutrophils (%) (Auto) % (45.0-75.0) Lymphocytes (%) (Auto) % (20.0-45.0) Monocytes (%) (Auto) % (1.0-10.0) Eosinophils (%) (Auto) % (0.0-3.0) Basophils (%) (Auto) % (0.0-2.0) Differential Total Cells Counted 100 Neutrophils % (Manual) 74 % (45-75) Lymphocytes % (Manual) 15 % (20-45) L Monocytes % (Manual) 3 % (1-10) Eosinophils % (Manual) 8 % (0-3) H Basophils % (Manual) 0 % (0-2) Band Neutrophils 0 % (0-8) Platelet Estimate Adequate Platelet Morphology Normal Hypochromasia 1+ Anisocytosis 1+ Sodium Level 146 MMOL/L (136-145) H Potassium Level 3.1 MMOL/L (3.5-5.1) L Chloride Level 117 MMOL/L (98-107) H Carbon Dioxide Level 19 MMOL/L (21-32) L Anion Gap 10 mmol/L (5-15) Blood Urea Nitrogen 24 mg/dL (7-18) H Creatinine 0.4 MG/DL (0.55-1.30) L Estimat Glomerular Filtration Rate > 60 mL/min (>60) Glucose Level 184 MG/DL (74-106) H Calcium Level 6.8 MG/DL (8.5-10.1) L Phosphorus Level 2.2 MG/DL (2.5-4.9) L Magnesium Level 1.6 MG/DL (1.8-2.4) L Total Bilirubin 0.7 MG/DL (0.2-1.0) Direct Bilirubin 0.3 MG/DL (0.0-0.3) Aspartate Amino Transf (AST/SGOT) 49 U/L (15-37) H Alanine Aminotransferase (ALT/SGPT) 38 U/L (12-78) Alkaline Phosphatase 398 U/L (46-116) H Total Protein 4.8 G/DL (6.4-8.2) L Albumin 1.1 G/DL (3.4-5.0) L Sagar Rudd MD Jan 29, 2019 14:45
--- NOTE | 2019-01-29 15:28 | Infectious Diseases Prog Note ---
Assessment/Plan Assessment/Plan 63 yo male who was sent to the ED on 01/21/19 for hypotension, fever and respiratory distress. Fever, SP Leukocytosis, fluctuating Gram negative Sepsis 01/22 BCx: ESBL K pneumoniae, GBS, MRSA 01/22 CXR: bilateral opacities 01/22 UA positive. UCx VRE 01/23 CXR: Redemonstration of bibasilar patchy airspace opacities. Unchanged pulmonary vascular congestion. No pneumothorax. Stable small left pleural effusion. 01/24 Bcx: ngtd 01/22 C diff positive 01/26 KUB: Nonspecific bowel gas pattern. Gastrostomy. No definite acute process 01/27 CT Pelvis: Severe proctocolitis with wall thicken in and inflammation as well as luminal distention due to fecal impaction. Rectal tube noted in place. Decubitus ulcer 01/27 CT Pelvis: No evidence of abscess or CT evidence for acute osteomyelitis /erosion of the coccyx/sacrum in the area of the clinically demonstrated decubitus ulceration/wound. The wound itself is not well seen on CT. VRE colonization DM COPD CVA Dementia Parkinsons Cardiac issues Vent dependent with trach G tube PLAN: - continue meropenem #11/03 - increase vanc po to 500mg #05/26- - SP vanc po 125mg #4 - Flagyl IV #06/30- - Vancomycin IV #03/30 - 01/28 SP Daptomycin #5 - 01/24 DC vancomycin IV #2 - f/u cultures - f/u repeat blood cultures - Monitor CBC and Temps - TTE, still pending final second baker read per RN Thank you for this consult. [facility] will continue to follow the patient with you during this hospitalization. Subjective Allergies: Coded Allergies: OXYTETRACYCLINE (Unverified Allergy, Unknown, 09/05/13) PENICILLINS (Unverified Allergy, Unknown, 06/11/17) Tolerated one dose of Cefepime 06/07/17 Tolerated Cefdinir 06/10/17 Uncoded Allergies: PLASTIC TAPE (Allergy, Mild, ITCHINESS, 08/08/15) MEDICAL TAPE (Allergy, Unknown, 12/10/16) Subjective Afebrile. Tachycardia but better. FiO2 40%. SP fecal disimpaction by nurse Objective Vital Signs Last 24 Hour Vital Signs Date Time Temp Pulse Resp B/P (MAP) Pulse Ox O2 Delivery O2 Flow Rate FiO2 01/29/19 12:48 104 35 40 01/29/19 12:00 97.5 102 27 107/55 (72) 100 01/29/19 12:00 101 01/29/19 12:00 Mechanical Ventilator 01/29/19 12:00 40 01/29/19 10:38 100 27 40 01/29/19 08:42 101 33 40 01/29/19 08:00 Mechanical Ventilator 01/29/19 08:00 40 01/29/19 08:00 97.5 103 29 102/52 (69) 100 01/29/19 08:00 101 01/29/19 07:29 101 27 40 01/29/19 05:29 100 28 40 01/29/19 04:00 Mechanical Ventilator 01/29/19 04:00 97.8 101 29 109/50 (69) 100 01/29/19 04:00 40 01/29/19 03:50 101 01/29/19 03:25 102 23 40 01/29/19 00:49 98 32 40 01/29/19 00:00 97 01/29/19 00:00 Mechanical Ventilator 01/29/19 00:00 98.9 98 29 133/66 (88) 100 01/28/19 22:49 99 28 40 01/28/19 21:11 107 23 40 01/28/19 20:00 Mechanical Ventilator 01/28/19 20:00 103 01/28/19 20:00 97.7 106 31 110/69 (83) 100 01/28/19 20:00 40 01/28/19 18:37 102 28 40 01/28/19 17:30 105 26 40 01/28/19 16:00 98.8 105 27 136/62 (86) 100 01/28/19 16:00 106 01/28/19 16:00 40 01/28/19 16:00 Mechanical Ventilator Height (Feet): 5 Height (Inches): 6.00 Weight (Pounds): 154 Objective Gen: NAD CV: RRR Resp: coarse. ventilatory sounds Abd: soft. Distended. Hypoactive BS+. G tube Ext: contracted Neuro: not alert Laboratory Tests Test 01/29/19 03:45 White Blood Count 28.6 K/UL (4.8-10.8) *H Red Blood Count 3.65 M/UL (4.70-6.10) L Hemoglobin 10.8 G/DL (14.2-18.0) L Hematocrit 32.1 % (42.0-52.0) L Mean Corpuscular Volume 88 FL (80-99) Mean Corpuscular Hemoglobin 29.5 PG (27.0-31.0) Mean Corpuscular Hemoglobin Concent 33.5 G/DL (32.0-36.0) Red Cell Distribution Width 14.0 % (11.6-14.8) Platelet Count 238 K/UL (150-450) Mean Platelet Volume 6.8 FL (6.5-10.1) Neutrophils (%) (Auto) % (45.0-75.0) Lymphocytes (%) (Auto) % (20.0-45.0) Monocytes (%) (Auto) % (1.0-10.0) Eosinophils (%) (Auto) % (0.0-3.0) Basophils (%) (Auto) % (0.0-2.0) Differential Total Cells Counted 100 Neutrophils % (Manual) 74 % (45-75) Lymphocytes % (Manual) 15 % (20-45) L Monocytes % (Manual) 3 % (1-10) Eosinophils % (Manual) 8 % (0-3) H Basophils % (Manual) 0 % (0-2) Band Neutrophils 0 % (0-8) Platelet Estimate Adequate Platelet Morphology Normal Hypochromasia 1+ Anisocytosis 1+ Sodium Level 146 MMOL/L (136-145) H Potassium Level 3.1 MMOL/L (3.5-5.1) L Chloride Level 117 MMOL/L (98-107) H Carbon Dioxide Level 19 MMOL/L (21-32) L Anion Gap 10 mmol/L (5-15) Blood Urea Nitrogen 24 mg/dL (7-18) H Creatinine 0.4 MG/DL (0.55-1.30) L Estimat Glomerular Filtration Rate > 60 mL/min (>60) Glucose Level 184 MG/DL (74-106) H Calcium Level 6.8 MG/DL (8.5-10.1) L Phosphorus Level 2.2 MG/DL (2.5-4.9) L Magnesium Level 1.6 MG/DL (1.8-2.4) L Total Bilirubin 0.7 MG/DL (0.2-1.0) Direct Bilirubin 0.3 MG/DL (0.0-0.3) Aspartate Amino Transf (AST/SGOT) 49 U/L (15-37) H Alanine Aminotransferase (ALT/SGPT) 38 U/L (12-78) Alkaline Phosphatase 398 U/L (46-116) H Total Protein 4.8 G/DL (6.4-8.2) L Albumin 1.1 G/DL (3.4-5.0) L Current Medications Medications (Trade) Dose Ordered Sig/Sima Route PRN Reason Start Time Stop Time Status Last Admin Dose Admin Acetaminophen (Tylenol) 650 mg Q4H PRN GT Mild Pain/Temp > 100.5 01/24/19 15:28 02/23/19 15:27 01/26/19 12:24 Acetaminophen/ Hydrocodone Bitart ([place] 10/325) 1 tab Q4H PRN GT For Pain 01/24/19 15:29 01/31/19 15:28 01/26/19 15:06 Ascorbic Acid (Vitamin C) 250 mg DAILY GT 01/25/19 09:00 02/24/19 08:59 01/29/19 08:35 Chlorhexidine Gluconate (Paulina-Hex 2%) 1 applic DAILY@2000 TOPIC 01/24/19 20:00 02/21/19 19:59 01/28/19 20:29 Daptomycin 400 mg/ Sodium Chloride 55 ml @ 100 mls/hr Q24H IV 01/24/19 17:00 01/31/19 16:59 01/28/19 18:47 Dextrose (Dextrose 50%) 25 ml Q30M PRN IV Hypoglycemia 01/24/19 15:30 02/21/19 06:29 Dextrose (Dextrose 50%) 50 ml Q30M PRN IV Hypoglycemia 01/24/19 15:30 02/21/19 06:29 Famotidine (Pepcid I.v.) 20 mg Q12HR IVP 01/24/19 21:00 02/23/19 20:59 01/29/19 08:35 Insulin Aspart (NovoLOG) Q6HR SUBQ 01/26/19 12:00 02/21/19 07:29 01/29/19 12:09 Lorazepam (Ativan 2mg/ml 1ml) 2 mg Q4H PRN IV For Anxiety 01/29/19 14:30 02/05/19 14:29 01/29/19 14:38 Meropenem 1 gm/ Sodium Chloride 55 ml @ 110 mls/hr Q12H IVPB 01/24/19 17:00 02/02/19 16:59 01/29/19 04:32 Metronidazole 100 ml @ 100 mls/hr Q8HR IVPB 01/26/19 14:00 02/02/19 13:59 01/29/19 14:09 Midodrine (Pro-Amatine) 2.5 mg THREE TIMES A DAY GT 01/24/19 18:00 02/21/19 12:59 01/29/19 12:08 Morphine Sulfate (Morphine Sulfate) 4 mg Q6H PRN IVP Severe Pain (Pain Scale 7-10) 01/26/19 16:45 02/02/19 16:44 Potassium Phosphate 20 mm/ Sodium Chloride 281.6667 ml @ 46.944 m... ONCE ONCE IV 01/29/19 11:00 01/29/19 16:59 01/29/19 12:07 Sodium Chloride 1,000 ml @ 100 mls/hr Q10H IV 01/26/19 17:00 02/25/19 16:59 01/29/19 14:09 Tamsulosin HCl (Flomax) 0.4 mg BID ORAL 01/24/19 18:00 02/21/19 09:59 01/29/19 08:35 Vancomycin HCl (Firvanq) 500 mg FOUR TIMES A DAY ORAL 01/27/19 18:00 02/03/19 17:59 01/29/19 12:08 Mukesh Betancourt MD Jan 29, 2019 15:28
--- NOTE | 2019-01-29 15:29 | Cardiology Report ---
APPROVED REPORT EXAM: Two-dimensional and M-mode echocardiogram with Doppler and color Doppler. INDICATION Endocarditis M-Mode DIMENSIONS IVSd1.2 (0.7-1.1cm)Left Atrium (MM)3.8 (1.6-4.0cm) LVDd4.5 (3.5-5.6cm)Aortic Root3.3 (2.0-3.7cm) PWd1.2 (0.7-1.1cm)Aortic Cusp Exc.2.0 (1.5-2.0cm) IVSs2.3 cm LVDs3.0 (2.5-4.0cm) PWs2.0 cm Technically difficult study due to very poor acoustical windows and contracted arm blocking scan area. Normal left ventricular chamber size, systolic function to extent visualized. Cannot assess regional wall motion. Left ventricular ejection fraction estimated to be grossly normal. No evidence of pericardial effusion. Possible left pleural effusion. All other cardiac chamber sizes are within normal limits. Focal aortic valve sclerosis with adequate cusp excursion. Thickened mitral valve leaflets with normal excursion. Mitral annulus and aortic root calcification. Pulmonic valve not well visualized. Tricuspid valve not well visualized. Subcostal views not obtained due to G-TUBE. A color flow and spectral Doppler study was performed and revealed: No aortic regurgitation. Trace mitral regurgitation. Mitral diastolic velocities suggest reduced left ventricular relaxation c/w mild LV diastolic dysfunction (Grade I). Trace tricuspid regurgitation. Tricuspid systolic velocities suggests peak right ventricular systolic pressure of 22 mmHg. No pulmonic regurgitation present.
[2019-01-29 16:00] VITALS: BP 103/63
--- NOTE | 2019-01-29 16:47 | NUR ---
CASE MANAGEMENT: REVIEW 01/29/2019 SI:SEPSIS. T 97.5 HR 102 RR 27 B/P 107/55 SATS 100% ON MECH VENT FIO2 40 LABS: WBC 28.6 NA 146 K 3.1 CL 117 CO2 19 BUN 24 CR 0.4 GLU 184 CA 6.8 PHOS 2.2 MG 1.6 AST 49 ALP 398 IS: IVF @ 100 mL/HR FLOMAX PO BID KPHOS IV X1 MEROPENEM IV Q12H VANCO IV Q12H FLAGYL IV Q8H INSULIN ASPART SUBQ Q6H SDU
[2019-01-29] MEDS: Vancomycin 1.25gm/NS Premix IVPB SCH (18:22)
--- NOTE | 2019-01-29 19:00 | NUR ---
NURSE NOTES: Dr. Arevalo seen and examined patient at bedside. At nurse station, informed MD that patient is trying to breathe through mouth, vent settings are as ordered and no alarms are being set off on vent, RT is aware. Inquired Dr. Arevalo if they would like to order and ABG lab. Dr. Arevalo acknowledged and gave no new orders and informed this nurse that patient is breathing that way due to their dementia. Noted. Informed oncoming nurse and charge nurse. Noted.
--- NOTE | 2019-01-29 19:30 | NUR ---
HAND-OFF: Report given to GEOVANNA Sandoval.
--- NOTE | 2019-01-29 19:31 | NUR ---
NURSE NOTES: Received patient from [facility]. Patient is obtunded, receiving oxygen via trach to vent: Portex 7, AC 16, TV 500, Fio2 40%, PEEP 5. G-tube is patent and intact receiving Vital AF 1.2 at 55cc/hr, patient tolerating well, less than 10cc residual. Brooks catheter is patent and draining. Patient has as a Right IJ TLC receiving NS at 100cc/hr. Bed is locked, placed in lowest position, side rails up x3, bed alarm on, call light within reach, head of bed elevated. Will continue to monitor.
[2019-01-29 20:00] VITALS: BP 101/57
[2019-01-29] MEDS: Dyna-Hex 2% Top Sol 2oz TOPIC SCH (21:10)
[2019-01-30] VITALS: BP 112/54
[2019-01-30] MEDS: NovoLOG Insulin Flexpen SUBQ SCH ×4 (01:04→18:19)
--- NOTE | 2019-01-30 01:15 | Progress Note ---
DATE: 01/29/2019 SUBJECTIVE: The patient's fever resolved. His tachycardia is now within the 100 to 110. PHYSICAL EXAMINATION: VITAL SIGNS: Blood pressure is 103/63, pulse is 102, respirations of 20, and temperature of 97.8 degrees. HEENT: Eyes were normal. ENT, mucous membranes were moist and intact. NECK: Supple with no JVD without lymph nodes. Tracheostomy site is clean. LUNGS: Clear without rhonchi, rales, or wheezing. Secretions are small, thin, and clayton. HEART: Normal sounds with regular beats. There is no S3, S4, or pericardial rub. ABDOMEN: Soft and nontender with normal bowel sounds. Gastrostomy site is clean. EXTREMITIES: Warm without cyanosis, clubbing, or edema. LABORATORY AND IMAGING DATA: Hemoglobin is 10.8, hematocrit 32.1 with MCV of 88, WBC of 28.6, and platelets are 238,000. His BUN and creatinine are 24 and 0.4 respectively. His sodium is 146, potassium 3.1, chloride 117, and CO2 was 19. His calcium was 6.8, his phosphorus is 2.2, and magnesium is 1.6. SGPT is 49 and SGOT is 38. His albumin is 1.1. His total protein is 4.8. Pelvic CT done yesterday revealed the patient has fecal impaction associated with rectal inflammation. The fecal impaction was decompressed by tap water enema. PLAN: The patient currently is on vancomycin 1 g IV piggyback q.24 h. and 250 mg via G-tube q.i.d. and daptomycin, it was discontinued yesterday. The patient is still on meropenem 1 g IV piggyback q.12 h. Repeat laboratory tests will be done in a.m. Boris Arevalo M.D. DR: ADRIÁN JOB#: [id number] CC:
[2019-01-30 04:00] VITALS: BP 106/60
--- NOTE | 2019-01-30 05:00 | NUR ---
NURSE NOTES: Changed central line dressing.
[2019-01-30] MEDS: Vancomycin 1.25gm/NS Premix IVPB SCH ×2 (05:02→17:14)
[2019-01-30] MEDS: Meropenem 1 GM in NS 55 ML IVPB SCH ×2 (05:24→17:14)
[2019-01-30 05:50] LABS: HEMATOCRIT 29.6 % (42.0-52.0); HEMOGLOBIN 9.7 G/DL (14.2-18.0); MEAN CORPUSCULAR VOLUME 89 FL (80-99); PLATELET COUNT 312 K/UL (150-450); RED BLOOD COUNT 3.33 M/UL (4.70-6.10); RED CELL DISTRIBUTION WIDTH 14.7 % (11.6-14.8)
[2019-01-30 06:00] LABS: ANION GAP 7 mmol/L (5-15); BLOOD UREA NITROGEN 22 mg/dL (7-18); CARBON DIOXIDE 20 MMOL/L (21-32); CHLORIDE 120 MMOL/L (98-107); CREATININE 0.5 MG/DL (0.55-1.30); POTASSIUM 3.4 MMOL/L (3.5-5.1); SODIUM 147 MMOL/L (136-145)
[2019-01-30 06:06] LABS: WHITE BLOOD COUNT 23.6 K/UL (4.8-10.8)
--- NOTE | 2019-01-30 07:00 | NUR ---
NURSE NOTES: Dr. Rosas saw patient.
--- NOTE | 2019-01-30 07:08 | General Progress Note ---
Assessment/Plan Status: unchanged Assessment/Plan: (1) Clostridium difficile diarrhea ICD Codes: A04.72 - Enterocolitis due to Clostridium difficile, not specified as recurrent SNOMED: 1188128801227 (2) Severe sepsis ICD Codes: A41.9 - Sepsis, unspecified organism; R65.20 - Severe sepsis without septic shock SNOMED: 45290729 (3) Feeding by G-tube ICD Codes: Z93.1 - Feeding by G-tube SNOMED: 183617414 (4) Diarrhea ICD Codes: R19.7 - Diarrhea, unspecified SNOMED: 33834106 (5) Upper GI bleed ICD Codes: K92.2 - Gastrointestinal hemorrhage, unspecified SNOMED: 62976349 Assessment/Plan No plans for GI procedures at this time given sepsis. Monitor H&H, PRN transfusions Occult blood to rule out any GI bleed Hold PPI given C. difficile H2B Antibiotics per infectious diseases for C. difficile IV hydration plus electrolyte correction GTF Follow labs recent CT reviewed s/p mineral oil enema s/p ordered manual disimpaction consider vanco enema if WBC still elevated by tomorrow Subjective ROS Limited/Unobtainable: No Allergies: Coded Allergies: OXYTETRACYCLINE (Unverified Allergy, Unknown, 09/05/13) PENICILLINS (Unverified Allergy, Unknown, 06/11/17) Tolerated one dose of Cefepime 06/07/17 Tolerated Cefdinir 06/10/17 Uncoded Allergies: PLASTIC TAPE (Allergy, Mild, ITCHINESS, 08/08/15) MEDICAL TAPE (Allergy, Unknown, 12/10/16) Objective Last 24 Hour Vital Signs Date Time Temp Pulse Resp B/P (MAP) Pulse Ox O2 Delivery O2 Flow Rate FiO2 01/30/19 06:39 104 18 40 01/30/19 05:28 108 20 40 01/30/19 04:00 40 01/30/19 04:00 Mechanical Ventilator 01/30/19 04:00 97.3 106 27 106/60 (75) 99 01/30/19 03:52 103 01/30/19 03:00 104 26 40 01/30/19 01:15 106 24 40 01/30/19 00:00 97.0 114 28 112/54 (73) 99 01/30/19 00:00 Mechanical Ventilator 01/30/19 00:00 108 01/29/19 23:07 108 23 40 01/29/19 21:03 107 23 40 01/29/19 20:00 97.3 102 27 101/57 (72) 100 01/29/19 20:00 Mechanical Ventilator 01/29/19 20:00 40 01/29/19 19:59 107 24 40 01/29/19 19:16 105 01/29/19 17:26 95 01/29/19 17:10 102 24 40 01/29/19 16:00 Mechanical Ventilator 01/29/19 16:00 40 01/29/19 16:00 97.8 101 20 103/63 (76) 100 01/29/19 15:00 95 22 40 01/29/19 12:48 104 35 40 01/29/19 12:00 97.5 102 27 107/55 (72) 100 01/29/19 12:00 101 01/29/19 12:00 Mechanical Ventilator 01/29/19 12:00 40 01/29/19 10:38 100 27 40 01/29/19 08:42 101 33 40 01/29/19 08:00 Mechanical Ventilator 01/29/19 08:00 40 01/29/19 08:00 97.5 103 29 102/52 (69) 100 01/29/19 08:00 101 01/29/19 07:29 101 27 40 Intake and Output 01/29/19 01/30/19 19:00 07:00 Intake Total 1395 ml 1105 ml Output Total 650 ml 300 ml Balance 745 ml 805 ml Free Water 150 ml IV Total 600 ml 500 ml Tube Feeding 645 ml 605 ml Output Urine Total 350 ml 300 ml Stool Total 300 ml # Bowel Movements 2 4 Laboratory Tests 01/30/19 03:30: White Blood Count 23.6*H, Red Blood Count 3.33L, Hemoglobin 9.7L, Hematocrit 29.6L, Mean Corpuscular Volume 89, Mean Corpuscular Hemoglobin 29.2, Mean Corpuscular Hemoglobin Concent 32.9, Red Cell Distribution Width 14.7, Platelet Count 312, Mean Platelet Volume 7.0, Neutrophils (%) (Auto) , Lymphocytes (%) ( Auto) , Monocytes (%) (Auto) , Eosinophils (%) (Auto) , Basophils (%) (Auto) , Neutrophils % (Manual) [Pending], Lymphocytes % (Manual) [Pending], Platelet Estimate [Pending], Platelet Morphology [Pending], Sodium Level 147H, Potassium Level 3.4L, Chloride Level 120H, Carbon Dioxide Level 20L, Anion Gap 7, Blood Urea Nitrogen 22H, Creatinine 0.5L, Estimat Glomerular Filtration Rate > 60, Glucose Level 179H, Calcium Level 7.0L Height (Feet): 5 Height (Inches): 6.00 Weight (Pounds): 155 General Appearance: lethargic EENT: normal ENT inspection Neck: supple Cardiovascular: tachycardia Respiratory/Chest: decreased breath sounds Abdomen: normal bowel sounds, non tender, soft Extremities: non-tender Gaurav Rosas MD Jan 30, 2019 07:08
--- NOTE | 2019-01-30 07:25 | NUR ---
HAND-OFF: Report given to Radha AUSTIN.
--- NOTE | 2019-01-30 07:25 | NUR ---
NURSE NOTES: Received bedside report from Víctor RN. Pt. in bed, obtunded. No sign of distress. On mech. vent. AC16/VT500/Fi O2 at 40%/P5. No grimacing noted. HOB elevated at all times. On GTF Vital AF 1.2 at 55cc/hr. Tolerating well. F/C in placed patent/intact draining yellow colored urine. Bed in low position, locked. Call light within reach. Will cont. to monitor.
[2019-01-30 08:00] VITALS: BP 109/73
--- NOTE | 2019-01-30 09:26 | Urology Progress Note ---
Assessment/Plan Status: unchanged Assessment/Plan: 1. Sepsis. 2. Incontinence. 3. Neurogenic bladder. 4. Proteinuria. 5. Hematuria. 6. Pyuria. 7. History of nephrolithiasis. 8. Urethral stricture. maintain hernández, do not remove switch to larger size hernández at some point hand irrigated and do PRN abx as ordered, ID on case Subjective Allergies: Coded Allergies: OXYTETRACYCLINE (Unverified Allergy, Unknown, 09/05/13) PENICILLINS (Unverified Allergy, Unknown, 06/11/17) Tolerated one dose of Cefepime 06/07/17 Tolerated Cefdinir 06/10/17 Uncoded Allergies: PLASTIC TAPE (Allergy, Mild, ITCHINESS, 08/08/15) MEDICAL TAPE (Allergy, Unknown, 12/10/16) Subjective all noted Objective Last 24 Hour Vital Signs Date Time Temp Pulse Resp B/P (MAP) Pulse Ox O2 Delivery O2 Flow Rate FiO2 01/30/19 09:21 110 01/30/19 08:38 109 22 40 01/30/19 08:00 40 01/30/19 06:39 104 18 40 01/30/19 05:28 108 20 40 01/30/19 04:00 40 01/30/19 04:00 Mechanical Ventilator 01/30/19 04:00 97.3 106 27 106/60 (75) 99 01/30/19 03:52 103 01/30/19 03:00 104 26 40 01/30/19 01:15 106 24 40 01/30/19 00:00 97.0 114 28 112/54 (73) 99 01/30/19 00:00 Mechanical Ventilator 01/30/19 00:00 108 01/29/19 23:07 108 23 40 01/29/19 21:03 107 23 40 01/29/19 20:00 97.3 102 27 101/57 (72) 100 01/29/19 20:00 Mechanical Ventilator 01/29/19 20:00 40 01/29/19 19:59 107 24 40 01/29/19 19:16 105 01/29/19 17:26 95 01/29/19 17:10 102 24 40 01/29/19 16:00 Mechanical Ventilator 01/29/19 16:00 40 01/29/19 16:00 97.8 101 20 103/63 (76) 100 01/29/19 15:00 95 22 40 01/29/19 12:48 104 35 40 01/29/19 12:00 97.5 102 27 107/55 (72) 100 01/29/19 12:00 101 01/29/19 12:00 Mechanical Ventilator 01/29/19 12:00 40 01/29/19 10:38 100 27 40 Intake and Output 01/29/19 01/30/19 19:00 07:00 Intake Total 1395 ml 1105 ml Output Total 650 ml 300 ml Balance 745 ml 805 ml Free Water 150 ml IV Total 600 ml 500 ml Tube Feeding 645 ml 605 ml Output Urine Total 350 ml 300 ml Stool Total 300 ml # Bowel Movements 2 4 Microbiology Date/Time Source Procedure Growth Status 01/24/19 17:30 Blood Blood Culture - Final NO GROWTH AFTER 5 DAYS Complete 01/22/19 02:10 Nasal Nares MRSA Culture - Final NO METHICILLIN RESISTANT STAPH AUREUS... Complete 01/22/19 17:23 Stool Clostridium difficile Toxin Assay - Final Complete 01/22/19 04:45 Urine,Clean Catch Urine Culture - Final Enterococcus Faecalis - Vre Complete 01/22/19 02:10 Rectum - Final Escherichia Coli - Cre Complete Current Medications Medications (Trade) Dose Ordered Sig/Sima Route PRN Reason Start Time Stop Time Status Last Admin Dose Admin Acetaminophen (Tylenol) 650 mg Q4H PRN GT Mild Pain/Temp > 100.5 01/24/19 15:28 02/23/19 15:27 01/26/19 12:24 Acetaminophen/ Hydrocodone Bitart (Clarita 10/325) 1 tab Q4H PRN GT For Pain 01/24/19 15:29 01/31/19 15:28 01/26/19 15:06 Ascorbic Acid (Vitamin C) 250 mg DAILY GT 01/25/19 09:00 02/24/19 08:59 01/29/19 08:35 Chlorhexidine Gluconate (Paulina-Hex 2%) 1 applic DAILY@1999 TOPIC 01/24/19 20:00 02/21/19 19:59 01/29/19 21:10 Dextrose (Dextrose 50%) 25 ml Q30M PRN IV Hypoglycemia 01/24/19 15:30 02/21/19 06:29 Dextrose (Dextrose 50%) 50 ml Q30M PRN IV Hypoglycemia 01/24/19 15:30 02/21/19 06:29 Famotidine (Pepcid I.v.) 20 mg Q12HR IVP 01/24/19 21:00 02/23/19 20:59 01/29/19 21:10 Insulin Aspart (NovoLOG) Q6HR SUBQ 01/26/19 12:00 02/21/19 07:29 01/30/19 06:14 Lorazepam (Ativan 2mg/ml 1ml) 2 mg Q4H PRN IV For Anxiety 01/29/19 14:30 02/05/19 14:29 01/29/19 14:38 Meropenem 1 gm/ Sodium Chloride 55 ml @ 110 mls/hr Q12H IVPB 01/24/19 17:00 02/02/19 16:59 01/30/19 05:24 Metronidazole 100 ml @ 100 mls/hr Q8HR IVPB 01/26/19 14:00 02/02/19 13:59 01/30/19 06:15 Midodrine (Pro-Amatine) 2.5 mg THREE TIMES A DAY GT 01/24/19 18:00 02/21/19 12:59 01/29/19 17:10 Morphine Sulfate (Morphine Sulfate) 4 mg Q6H PRN IVP Severe Pain (Pain Scale 7-10) 01/26/19 16:45 02/02/19 16:44 Sodium Chloride 1,000 ml @ 100 mls/hr Q10H IV 01/26/19 17:00 02/25/19 16:59 01/30/19 01:05 Tamsulosin HCl (Flomax) 0.4 mg BID ORAL 01/24/19 18:00 02/21/19 09:59 01/29/19 17:10 Vancomycin HCl (Firvanq) 500 mg FOUR TIMES A DAY ORAL 01/27/19 18:00 02/03/19 17:59 01/29/19 21:10 Vancomycin HCl (Vanco rx to dose) 1 ea DAILY PRN MISC Per rx protocol 01/29/19 15:30 02/28/19 15:29 Vancomycin/Sodium Chloride 275 ml @ 183.333 mls/hr Q12H IVPB 01/29/19 16:30 02/03/19 16:29 01/30/19 05:02 Laboratory Tests 01/30/19 03:30: White Blood Count 23.6*H, Red Blood Count 3.33L, Hemoglobin 9.7L, Hematocrit 29.6L, Mean Corpuscular Volume 89, Mean Corpuscular Hemoglobin 29.2, Mean Corpuscular Hemoglobin Concent 32.9, Red Cell Distribution Width 14.7, Platelet Count 312, Mean Platelet Volume 7.0, Neutrophils (%) (Auto) , Lymphocytes (%) ( Auto) , Monocytes (%) (Auto) , Eosinophils (%) (Auto) , Basophils (%) (Auto) , Neutrophils % (Manual) [Pending], Lymphocytes % (Manual) [Pending], Platelet Estimate [Pending], Platelet Morphology [Pending], Sodium Level 147H, Potassium Level 3.4L, Chloride Level 120H, Carbon Dioxide Level 20L, Anion Gap 7, Blood Urea Nitrogen 22H, Creatinine 0.5L, Estimat Glomerular Filtration Rate > 60, Glucose Level 179H, Calcium Level 7.0L Height (Feet): 5 Height (Inches): 6.00 Weight (Pounds): 155 Objective exam stable hernández indwelling, urine yellow/abhay no active bleeding at meatus renal u/s (01/23) noted Jake Pierre MD Jan 30, 2019 09:26
[2019-01-30] MEDS: Vancomycin oral 125mg/2.5ml ORAL SCH ×4 (09:28→20:49)
[2019-01-30] MEDS: Tamsulosin 0.4mg cap ORAL SCH ×2 (09:28→17:14)
[2019-01-30] MEDS: Ascorbic Acid 500mg tab GT SCH (09:28)
--- NOTE | 2019-01-30 10:55 | NUR ---
NURSE NOTES: Called and left a message to Dr. Arevalo regarding pt. 8 beats of VTach episode. Awaiting for response.
--- NOTE | 2019-01-30 11:08 | NUR ---
NURSE NOTES: Dr. Arevalo ordered consult with Dr. Quiros (cardio).
[2019-01-30] MEDS: HYDROcodone/Acetamin 10/325 tab GT PRN (11:27)
[2019-01-30 12:00] VITALS: BP 100/73
--- NOTE | 2019-01-30 12:45 | Surgery Progress Note ---
Surgery Progress Note Subjective Additional Comments no acute events comfortable appearing labs noted - wbc slowly trending down exam stable Objective Last 24 Hour Vital Signs Date Time Temp Pulse Resp B/P (MAP) Pulse Ox O2 Delivery O2 Flow Rate FiO2 01/30/19 12:00 40 01/30/19 10:52 108 24 40 01/30/19 10:46 121 01/30/19 09:21 110 01/30/19 08:38 109 22 40 01/30/19 08:00 Mechanical Ventilator 01/30/19 08:00 97.5 111 24 109/73 (85) 98 01/30/19 08:00 40 01/30/19 06:39 104 18 40 01/30/19 05:28 108 20 40 01/30/19 04:00 40 01/30/19 04:00 Mechanical Ventilator 01/30/19 04:00 97.3 106 27 106/60 (75) 99 01/30/19 03:52 103 01/30/19 03:00 104 26 40 01/30/19 01:15 106 24 40 01/30/19 00:00 97.0 114 28 112/54 (73) 99 01/30/19 00:00 Mechanical Ventilator 01/30/19 00:00 108 01/29/19 23:07 108 23 40 01/29/19 21:03 107 23 40 01/29/19 20:00 97.3 102 27 101/57 (72) 100 01/29/19 20:00 Mechanical Ventilator 01/29/19 20:00 40 01/29/19 19:59 107 24 40 01/29/19 19:16 105 01/29/19 17:26 95 01/29/19 17:10 102 24 40 01/29/19 16:00 Mechanical Ventilator 01/29/19 16:00 40 01/29/19 16:00 97.8 101 20 103/63 (76) 100 01/29/19 15:00 95 22 40 01/29/19 12:48 104 35 40 I&O Intake and Output 01/29/19 01/30/19 19:00 07:00 Intake Total 1395 ml 1205 ml Output Total 650 ml 300 ml Balance 745 ml 905 ml Free Water 150 ml IV Total 600 ml 600 ml Tube Feeding 645 ml 605 ml Output Urine Total 350 ml 300 ml Stool Total 300 ml # Bowel Movements 2 4 Dressing: other Wound: other Drains: other Cardiovascular: RSR Respiratory: decreased breath sounds Abdomen: soft, present bowel sounds Extremities: no cyanosis Laboratory Tests Test 01/30/19 03:30 01/30/19 12:18 White Blood Count 23.6 K/UL (4.8-10.8) *H Red Blood Count 3.33 M/UL (4.70-6.10) L Hemoglobin 9.7 G/DL (14.2-18.0) L Hematocrit 29.6 % (42.0-52.0) L Mean Corpuscular Volume 89 FL (80-99) Mean Corpuscular Hemoglobin 29.2 PG (27.0-31.0) Mean Corpuscular Hemoglobin Concent 32.9 G/DL (32.0-36.0) Red Cell Distribution Width 14.7 % (11.6-14.8) Platelet Count 312 K/UL (150-450) Mean Platelet Volume 7.0 FL (6.5-10.1) Neutrophils (%) (Auto) % (45.0-75.0) Lymphocytes (%) (Auto) % (20.0-45.0) Monocytes (%) (Auto) % (1.0-10.0) Eosinophils (%) (Auto) % (0.0-3.0) Basophils (%) (Auto) % (0.0-2.0) Differential Total Cells Counted 100 Neutrophils % (Manual) 71 % (45-75) Lymphocytes % (Manual) 7 % (20-45) L Monocytes % (Manual) 6 % (1-10) Eosinophils % (Manual) 16 % (0-3) H Basophils % (Manual) 0 % (0-2) Band Neutrophils 0 % (0-8) Platelet Estimate Adequate Platelet Morphology Normal Hypochromasia 2+ Anisocytosis 1+ Spherocytes 1+ Sodium Level 147 MMOL/L (136-145) H Potassium Level 3.4 MMOL/L (3.5-5.1) L Chloride Level 120 MMOL/L (98-107) H Carbon Dioxide Level 20 MMOL/L (21-32) L Anion Gap 7 mmol/L (5-15) Blood Urea Nitrogen 22 mg/dL (7-18) H Creatinine 0.5 MG/DL (0.55-1.30) L Estimat Glomerular Filtration Rate > 60 mL/min (>60) Glucose Level 179 MG/DL (74-106) H Calcium Level 7.0 MG/DL (8.5-10.1) L Arterial Blood pH 7.382 (7.350-7.450) Arterial Blood Partial Pressure CO2 31.7 mmHg (35.0-45.0) L Arterial Blood Partial Pressure O2 53.8 mmHg (75.0-100.0) L Arterial Blood HCO3 18.4 mmol/L (22.0-26.0) L Arterial Blood Oxygen Saturation 87.1 % (95-100) *L Arterial Blood Base Excess -5.8 (-2-2) L Melvin Test Positive Plan Problems: (1) Decubitus skin ulcer Assessment & Plan: Pt presented on admission with contractures, multiple pressure injuries .Pt noted to have 3 pressure injuries L elbow. Laterally L elbow -Full thickness pressure injury with 40% slough at base of wound,60% beefy red. Small amt sanguineous exudate noted(L)1.4cm x (W)2.1cm. Pressure injury L elbow (proximal) (L)0.5cm x (W)1cm . Scattered biofilm at base of wound , borders are macerated.(Inferior) (L)0.4cm x (W)0.5cm . Base of wound moist with Biofilm. Small amt serous exudate noted. (L)0.4cm x (W)0.5cm. Full thickness sacral pressure injury. Base of wound is pink- moist with scattered biofilm,(+) maceration along borders. Non-blanching erythema without induration periwound (L)11.2cm x (W)4.5cm x (D)0.4cm. Two additional pressure injuries noted to L and R sacrum. Partial thickness L sacral pressure injury. Base of wound is moist and viable. Edges are macerated with surrounding non-blanching erythema without induration or elevation in skin temp.(L)0.9cm x (W)1.3cm.R sacral partial thickness pressure injury. Base of wound is moist and viable. Edges flat and adherent to base of wound. Non- blanching erythema without induration or elevation in skin temp.(L)2cm x (W) 1.5cm. Partial thickness pressure injury to outer R buttocks. base of wound moist and viable. Edges flat and adherent to base of wound. Non-blanching erythema periwound.(L)2.3cm x (W)2.5cm. Partial thickness pressure injury inferior but in close proximity R buttocks (L) 2cm x (W)2cm . Base of wound is moist and viable. Surrounding non-blanching erythema without induration. Erythematous and indurated area noted to L groin. No elevation in skin temp noted. Scrotal sac is also erythematous. Non-blanching erythema with fluctuance R hallux. (L)1.6cm x (W)1.7cm. Pressure injury dorsal R foot . Base of wound moist with small amt of Biofilm.(+ ) maceration along borders.(L)1.5cm x (W)1.7cm. R 1st metatarsal necrotic with soft center with slough . Small amt seropurulent exudate noted. Marginal erythema along borders. (L)1.5cm x (W)1.5cm. Non-blanching erythema without induration or fluctuance lateral malleolus(L) 2.5cm x (W)2.5cm. L heel is boggy with non-blanching erythema. R heel is boggy but pink and easily blanchable. Tx.plan: Cleanse Sacral wound with Saline. Apply Therahoney. Apply Triad Paste periwound. Cover with Optifoam drsg. Change every 3 days and prn. Apply Triad paste to pressure injuries R and L sacrum and R outer Buttocks. Cover wounds with Optifoam drsg. Change every 3 days and prn. Apply Triad paste to groin and scrotum with each incontinence care. Cleanse wounds L elbow with saline. Apply Therahoney to wounds. Cover with Optifoam drsg. Change every 3 days and prn. Apply Betadine to wounds dorsal R foot and R 1st metatarsal . Cover with Optifoam drsg. Change daily and prn. Apply Cavilon to R hallux, R and L malleoli and both heels. Cover each site with Optifoam drsgs. Change every 7 days and prn. APM/RENETTA Mattress overlay. Reposition at least every 2hours or as tolerated. Off-load heels with Pillow. Place pillow between knees. (2) Septic shock Assessment & Plan: Leukocytosis - improved Lactic acidosis resolved off pressors on IV fluids tube feeds needs nutritional supplementation Rx as written cont current care and management will follow with recs c diff cont rectal tube abx as per ID thank you (3) Feeding by G-tube Assessment & Plan: DAILY ESTIMATED NEEDS: Needs based on Critical care, wound 68kg 22-30 kcals/kg 9054-0908 total kcals 1.25-2 g protein/kg 85-136 g total protein 25-30 mL/kg 9220-6881 total fluid mLs NUTRITION DIAGNOSIS: 1) Swallowing difficulty R/T respiratory status as evidenced by pt vent dep via trach, PEG dep, on TF. 2) Increased kcal/prot needs R/T wound healing as evidenced by pt admitted w/ multiple wounds, including open sacral wound, eval pending. ENTERAL NUTRITION RECOMMENDATIONS: Vital AF 1.2 @55ml x24 hrs to provide 1320ml, 1584kcal, 99g prot, 1071ml free H20 * As medically appropriate w/ hemodynamic stability, rec elemental formula of Vital for GI tolerance. * Initiate VITAL 1.2 @ 15ml/hr x 6 hrs, advance 10ml q 4-6 hrs as tolerated to goal rate. * HOB >30 degrees/ water flushes per MD ADDITIONAL RECOMMENDATIONS: 1) Maintain calibrated bed scale wts 2) Wound healing: add Darryl 1pkt BID w/ TF order Add Vit C 250mg daily (f/up w/ WC eval) 3) F/up w/ H&P 4) Lytes daily, replete as needed (4) Vegetative state Jimmy Tang Jan 30, 2019 12:45
[2019-01-30 13:09] LABS: ANION GAP 10 mmol/L (5-15); BLOOD UREA NITROGEN 22 mg/dL (7-18); CALCIUM 6.9 MG/DL (8.5-10.1); CARBON DIOXIDE 16 MMOL/L (21-32); CHLORIDE 118 MMOL/L (98-107); CREATININE 0.5 MG/DL (0.55-1.30); POTASSIUM 3.9 MMOL/L (3.5-5.1); SODIUM 144 MMOL/L (136-145)
--- NOTE | 2019-01-30 14:40 | Nephrology Progress Note ---
Assessment/Plan Problem List: (1) Hypokalemia (2) HARDEEP (acute kidney injury) (3) Sepsis (4) Hyponatremia Assessment HARDEEP (acute kidney injury) HypoNatremia Septic shock Others: HCAP (healthcare-associated pneumonia) Chronic respiratory failure Ventilator dependence Vegetative state History of CVA (cerebrovascular accident) Feeding by G-tube HTN (hypertension) Cerebral vascular disease Plan K Phos mag as needed Hydrate monitor renal parameters Midodrine Antibiotics Avoid nephrotoxics Brooks could not be put in due to resistance start flomax per order Subjective ROS Limited/Unobtainable: Yes Objective Objective Last 24 Hour Vital Signs Date Time Temp Pulse Resp B/P (MAP) Pulse Ox O2 Delivery O2 Flow Rate FiO2 01/30/19 13:29 103 22 40 01/30/19 13:02 108 01/30/19 12:00 97.5 108 20 100/73 (82) 99 01/30/19 12:00 40 01/30/19 12:00 Mechanical Ventilator 01/30/19 10:52 108 24 40 01/30/19 10:46 121 01/30/19 09:21 110 01/30/19 08:38 109 22 40 01/30/19 08:00 Mechanical Ventilator 01/30/19 08:00 97.5 111 24 109/73 (85) 98 01/30/19 08:00 40 01/30/19 06:39 104 18 40 01/30/19 05:28 108 20 40 01/30/19 04:00 40 01/30/19 04:00 Mechanical Ventilator 01/30/19 04:00 97.3 106 27 106/60 (75) 99 01/30/19 03:52 103 01/30/19 03:00 104 26 40 01/30/19 01:15 106 24 40 01/30/19 00:00 97.0 114 28 112/54 (73) 99 01/30/19 00:00 Mechanical Ventilator 01/30/19 00:00 108 01/29/19 23:07 108 23 40 01/29/19 21:03 107 23 40 01/29/19 20:00 97.3 102 27 101/57 (72) 100 01/29/19 20:00 Mechanical Ventilator 01/29/19 20:00 40 01/29/19 19:59 107 24 40 01/29/19 19:16 105 01/29/19 17:26 95 11/9/19 17:10 102 24 40 01/29/19 16:00 Mechanical Ventilator 01/29/19 16:00 40 01/29/19 16:00 97.8 101 20 103/63 (76) 100 01/29/19 15:00 95 22 40 Intake and Output 01/29/19 01/30/19 19:00 07:00 Intake Total 1395 ml 1205 ml Output Total 650 ml 300 ml Balance 745 ml 905 ml Free Water 150 ml IV Total 600 ml 600 ml Tube Feeding 645 ml 605 ml Output Urine Total 350 ml 300 ml Stool Total 300 ml # Bowel Movements 2 4 Laboratory Tests 01/30/19 03:30: White Blood Count 23.6*H, Red Blood Count 3.33L, Hemoglobin 9.7L, Hematocrit 29.6L, Mean Corpuscular Volume 89, Mean Corpuscular Hemoglobin 29.2, Mean Corpuscular Hemoglobin Concent 32.9, Red Cell Distribution Width 14.7, Platelet Count 312, Mean Platelet Volume 7.0, Neutrophils (%) (Auto) , Lymphocytes (%) ( Auto) , Monocytes (%) (Auto) , Eosinophils (%) (Auto) , Basophils (%) (Auto) , Differential Total Cells Counted 100, Neutrophils % (Manual) 71, Lymphocytes % ( Manual) 7L, Monocytes % (Manual) 6, Eosinophils % (Manual) 16H, Basophils % ( Manual) 0, Band Neutrophils 0, Platelet Estimate Adequate, Platelet Morphology Normal, Hypochromasia 2+, Anisocytosis 1+, Spherocytes 1+, Sodium Level 147H, Potassium Level 3.4L, Chloride Level 120H, Carbon Dioxide Level 20L, Anion Gap 7 , Blood Urea Nitrogen 22H, Creatinine 0.5L, Estimat Glomerular Filtration Rate > 60, Glucose Level 179H, Calcium Level 7.0L 01/30/19 12:18: Arterial Blood pH 7.382, Arterial Blood Partial Pressure CO2 31.7L, Arterial Blood Partial Pressure O2 53.8L, Arterial Blood HCO3 18.4L, Arterial Blood Oxygen Saturation 87.1*L, Arterial Blood Base Excess -5.8L, Melvin Test Positive 01/30/19 12:46: Sodium Level 144, Potassium Level 3.9, Chloride Level 118H, Carbon Dioxide Level 16L, Anion Gap 10, Blood Urea Nitrogen 22H, Creatinine 0.5L, Estimat Glomerular Filtration Rate > 60, Glucose Level 207H, Calcium Level 6.9L Height (Feet): 5 Height (Inches): 6.00 Weight (Pounds): 155 General Appearance: no apparent distress EENT: other - trach vent Cardiovascular: tachycardia Respiratory/Chest: decreased breath sounds Abdomen: distended Objective no change Sergey Rivera MD Jan 30, 2019 14:40
[2019-01-30 16:00] VITALS: BP 123/47
--- NOTE | 2019-01-30 16:22 | Pulmonolgy Critical Care Note ---
Critical Care - Asmt/Plan Problems: (1) Septic shock (2) HCAP (healthcare-associated pneumonia) (3) Chronic respiratory failure (4) Ventilator dependence (5) Vegetative state (6) HARDEEP (acute kidney injury) (7) History of CVA (cerebrovascular accident) (8) Feeding by G-tube (9) HTN (hypertension) (10) Cerebral vascular disease Respiratory: monitor respiratory rate, adjust FIO2, CXR Cardiac: continue to monitor HR/BP Renal: F/U I&O Infectious Disease: check cultures Gastrointestinal: hold feedings Endocrine: monitor blood sugar, check HgA1C Hematologic: transfuse if hgb<8.5 Neurologic: PRN Ativan, keep patient comfortable Affect: PRN ativan Notes 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, 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 Discussed with: nurses, consultants, sample case portermanager of transportation - Objective Last 24 Hour Vital Signs Date Time Temp Pulse Resp B/P (MAP) Pulse Ox O2 Delivery O2 Flow Rate FiO2 01/30/19 15:29 100 25 40 01/30/19 13:29 103 22 40 01/30/19 13:02 108 01/30/19 12:00 97.5 108 20 100/73 (82) 99 01/30/19 12:00 40 01/30/19 12:00 Mechanical Ventilator 01/30/19 10:52 108 24 40 01/30/19 10:46 121 01/30/19 09:21 110 01/30/19 08:38 109 22 40 01/30/19 08:00 Mechanical Ventilator 01/30/19 08:00 97.5 111 24 109/73 (85) 98 01/30/19 08:00 40 01/30/19 06:39 104 18 40 01/30/19 05:28 108 20 40 01/30/19 04:00 40 01/30/19 04:00 Mechanical Ventilator 01/30/19 04:00 97.3 106 27 106/60 (75) 99 01/30/19 03:52 103 01/30/19 03:00 104 26 40 01/30/19 01:15 106 24 40 01/30/19 00:00 97.0 114 28 112/54 (73) 99 01/30/19 00:00 Mechanical Ventilator 01/30/19 00:00 108 01/29/19 23:07 108 23 40 01/29/19 21:03 107 23 40 01/29/19 20:00 97.3 102 27 101/57 (72) 100 01/29/19 20:00 Mechanical Ventilator 01/29/19 20:00 40 01/29/19 19:59 107 24 40 01/29/19 19:16 105 01/29/19 17:26 95 01/29/19 17:10 102 24 40 Status: obtunded Condition: critical Neck: full ROM Heart: HR/BP stable Abdomen: soft, feeding tube Extremities: edema Decubiti: location Accucheck: 179 Critical Care - Subjective ROS Limited/Unobtainable: Yes Condition: critical FI02: 40 Vent Support Breath Rate: 16 Vent Support Mode: AC Vent Tidal Volume: 500 Sputum Amount: Moderate PEEP: 5.0 PIP: 24 Tube Feeding Amount: 55 I&O: Intake and Output 01/29/19 01/30/19 18:59 06:59 Intake Total 1380 ml 1260 ml Output Total 650 ml 300 ml Balance 730 ml 960 ml Free Water 150 ml IV Total 600 ml 600 ml Tube Feeding 630 ml 660 ml Output Urine Total 350 ml 300 ml Stool Total 300 ml # Bowel Movements 2 4 Labs: Laboratory Tests Test 01/30/19 03:30 01/30/19 12:18 01/30/19 12:46 01/30/19 16:05 White Blood Count 23.6 K/UL (4.8-10.8) *H Red Blood Count 3.33 M/UL (4.70-6.10) L Hemoglobin 9.7 G/DL (14.2-18.0) L Hematocrit 29.6 % (42.0-52.0) L Mean Corpuscular Volume 89 FL (80-99) Mean Corpuscular Hemoglobin 29.2 PG (27.0-31.0) Mean Corpuscular Hemoglobin Concent 32.9 G/DL (32.0-36.0) Red Cell Distribution Width 14.7 % (11.6-14.8) Platelet Count 312 K/UL (150-450) Mean Platelet Volume 7.0 FL (6.5-10.1) Neutrophils (%) (Auto) % (45.0-75.0) Lymphocytes (%) (Auto) % (20.0-45.0) Monocytes (%) (Auto) % (1.0-10.0) Eosinophils (%) (Auto) % (0.0-3.0) Basophils (%) (Auto) % (0.0-2.0) Differential Total Cells Counted 100 Neutrophils % (Manual) 71 % (45-75) Lymphocytes % (Manual) 7 % (20-45) L Monocytes % (Manual) 6 % (1-10) Eosinophils % (Manual) 16 % (0-3) H Basophils % (Manual) 0 % (0-2) Band Neutrophils 0 % (0-8) Platelet Estimate Adequate Platelet Morphology Normal Hypochromasia 2+ Anisocytosis 1+ Spherocytes 1+ Sodium Level 147 MMOL/L (136-145) H 144 MMOL/L (136-145) Potassium Level 3.4 MMOL/L (3.5-5.1) L 3.9 MMOL/L (3.5-5.1) Chloride Level 120 MMOL/L (98-107) H 118 MMOL/L (98-107) H Carbon Dioxide Level 20 MMOL/L (21-32) L 16 MMOL/L (21-32) L Anion Gap 7 mmol/L (5-15) 10 mmol/L (5-15) Blood Urea Nitrogen 22 mg/dL (7-18) H 22 mg/dL (7-18) H Creatinine 0.5 MG/DL (0.55-1.30) L 0.5 MG/DL (0.55-1.30) L Estimat Glomerular Filtration Rate > 60 mL/min (>60) > 60 mL/min (>60) Glucose Level 179 MG/DL (74-106) H 207 MG/DL (74-106) H Calcium Level 7.0 MG/DL (8.5-10.1) L 6.9 MG/DL (8.5-10.1) L Arterial Blood pH 7.382 (7.350-7.450) Arterial Blood Partial Pressure CO2 31.7 mmHg (35.0-45.0) L Arterial Blood Partial Pressure O2 53.8 mmHg (75.0-100.0) L Arterial Blood HCO3 18.4 mmol/L (22.0-26.0) L Arterial Blood Oxygen Saturation 87.1 % (95-100) *L Arterial Blood Base Excess -5.8 (-2-2) L Melvin Test Positive Vancomycin Level Trough Pending Sagar Rudd MD Jan 30, 2019 16:22
[2019-01-30] MEDS ORDERED: NS 500ML ONE (16:23)
[2019-01-30] MEDS ORDERED: Tubing IV Secondary IV ONE (16:25)
[2019-01-30] MEDS ORDERED: NS Irrig 1000ml ONE (16:25)
[2019-01-30] MEDS ORDERED: NS 275ml ONE (16:25)
--- NOTE | 2019-01-30 19:20 | NUR ---
NURSE NOTES: Report recevied from Mp RN. pt remains stable. pt is obtunded neuro aguillon. 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 pt is on a trach to vent satting at 99%, no distress noted. pt bed is armed locked, bed rails up times 3 with padding, bed is locked, low. will continue plan off care.
--- NOTE | 2019-01-30 19:37 | NUR ---
HAND-OFF: Report given to Hieu Bryant Rn. Pt. remain stable.
[2019-01-30 20:00] VITALS: BP 121/64
[2019-01-30] MEDS: Dyna-Hex 2% Top Sol 2oz TOPIC SCH (20:48)
--- NOTE | 2019-01-30 21:45 | Progress Note ---
DATE: 01/30/2019 SUBJECTIVE: The patient is afebrile now, hemodynamically stable with sinus tachycardia. PHYSICAL EXAMINATION: VITAL SIGNS: Blood pressure 109/73, pulse is 108, respirations are 24, temperature 97.5. HEENT: Eyes were normal. ENT, mucous membranes were moist and intact. NECK: Supple with no JVD without lymph nodes. Tracheostomy site is clean. LUNGS: Clear without rhonchi, rales, or wheezing. HEART: Normal sounds with regular beats. There is tachycardia at rest. Sinus tachycardia on monitor. ABDOMEN: Soft and nontender with normal bowel sounds. Gastrostomy site is clean. EXTREMITIES: Warm without cyanosis, clubbing, or edema. The patient yesterday had random of 8 beats. LABORATORY AND DIAGNOSTIC DATA: Hemoglobin 9.7, hematocrit 29.8 with MCV of 99, WBC of 23.6, and platelets 312. WBC was 28.6 yesterday and 30.9 day before. BUN and creatinine is 22 and 0.5 respectively. His sodium is 147, potassium 3.4, chloride 120, CO2 20. Calcium 7. IMPRESSION: The patient's general condition is improving. Diarrhea is less watery now. He is afebrile with improved leukocytosis . Repeat laboratory tests will be done in the morning. ABG will be done this morning. Boris Arevalo M.D. DR: Day JOB#: [id number] CC:
[2019-01-31] VITALS: BP 120/70
[2019-01-31] MEDS: NovoLOG Insulin Flexpen SUBQ SCH ×4 (00:38→18:07)
[2019-01-31 04:00] VITALS: BP 134/74
[2019-01-31] MEDS: Vancomycin 1.25gm/NS Premix IVPB SCH ×2 (04:24→17:58)
[2019-01-31 05:23] LABS: HEMATOCRIT 30.3 % (42.0-52.0); HEMOGLOBIN 10.1 G/DL (14.2-18.0); MEAN CORPUSCULAR VOLUME 89 FL (80-99); PLATELET COUNT 371 K/UL (150-450); RED BLOOD COUNT 3.41 M/UL (4.70-6.10); RED CELL DISTRIBUTION WIDTH 15.3 % (11.6-14.8); WHITE BLOOD COUNT 21.7 K/UL (4.8-10.8)
[2019-01-31] MEDS: Meropenem 1 GM in NS 55 ML IVPB SCH ×2 (05:30→18:14)
--- NOTE | 2019-01-31 06:42 | NUR ---
RESPIRATORY NOTE: Received patient on vent settings AC RR:16, VT: 500, FiO2: 40%, Peep of 5. Patient has a cuffed portex 7, secured with trach ties. Suctioned small amounts of white secretions. Pt laying on bed obtundent. Bilateral rhonchi. Vent plugged into red outlet. Alarms are on and audible. Will continue to monitor throughout the day.
--- NOTE | 2019-01-31 07:23 | NUR ---
HAND-OFF: Report given to Mp [place]. Pt remains stable.
--- NOTE | 2019-01-31 07:30 | NUR ---
NURSE NOTES: Received bedside report from Hieu Bryant RN. Pt. in bed, obtunded. No sign of distress. On mech. vent. AC16/VT500/Fi O2 at 40%/P5. No grimacing noted. HOB elevated at all times. On GTF Vital AF 1.2 at 55cc/hr. Tolerating well. F/C in placed patent/intact draining yellow colored urine. Bed in low position, locked. Call light within reach. Will cont. to monitor.
[2019-01-31 08:00] VITALS: BP 100/65
[2019-01-31 09:00] LABS: ALANINE AMINOTRANSFERASE 37 U/L (12-78); ALBUMIN 1.1 G/DL (3.4-5.0); ALKALINE PHOSPHATASE 296 U/L (46-116); ASPARTATE AMINO TRANSFERASE 40 U/L (15-37); BILIRUBIN,DIRECT 0.1 MG/DL (0.0-0.3); BILIRUBIN,TOTAL 0.3 MG/DL (0.2-1.0); PHOSPHORUS 2.3 MG/DL (2.5-4.9)
[2019-01-31] MEDS: Tamsulosin 0.4mg cap ORAL SCH ×2 (09:06→18:14)
[2019-01-31] MEDS: Ascorbic Acid 500mg tab GT SCH (09:07)
[2019-01-31] MEDS: Vancomycin oral 125mg/2.5ml ORAL SCH ×4 (09:07→20:32)
--- NOTE | 2019-01-31 09:32 | Urology Progress Note ---
Assessment/Plan Status: unchanged Assessment/Plan: 1. Sepsis. 2. Incontinence. 3. Neurogenic bladder. 4. Proteinuria. 5. Hematuria. 6. Pyuria. 7. History of nephrolithiasis. 8. Urethral stricture. maintain hernández, do not remove switch to larger size hernández at some point hand irrigated and do PRN abx as ordered, ID on case Subjective Allergies: Coded Allergies: OXYTETRACYCLINE (Unverified Allergy, Unknown, 09/05/13) PENICILLINS (Unverified Allergy, Unknown, 06/11/17) Tolerated one dose of Cefepime 06/07/17 Tolerated Cefdinir 06/10/17 Uncoded Allergies: PLASTIC TAPE (Allergy, Mild, ITCHINESS, 08/08/15) MEDICAL TAPE (Allergy, Unknown, 12/10/16) Subjective all noted Objective Last 24 Hour Vital Signs Date Time Temp Pulse Resp B/P (MAP) Pulse Ox O2 Delivery O2 Flow Rate FiO2 01/31/19 08:46 102 27 40 01/31/19 08:00 105 01/31/19 06:40 105 25 40 01/31/19 05:29 102 22 40 01/31/19 04:00 97.3 101 25 134/74 (94) 99 01/31/19 04:00 Mechanical Ventilator 01/31/19 04:00 100 01/31/19 04:00 40 01/31/19 02:59 98 24 40 01/31/19 00:41 101 22 40 01/31/19 00:00 Mechanical Ventilator 01/31/19 00:00 97.2 98 22 120/70 (87) 99 01/31/19 00:00 98 01/31/19 00:00 40 01/30/19 22:44 99 25 40 01/30/19 20:00 99 01/30/19 20:00 Mechanical Ventilator 01/30/19 20:00 40 01/30/19 20:00 97.6 102 24 121/64 (83) 99 01/30/19 19:12 100 28 40 01/30/19 16:57 107 24 40 01/30/19 16:00 Mechanical Ventilator 01/30/19 16:00 40 01/30/19 16:00 97.7 106 23 123/47 (72) 99 01/30/19 15:53 107 01/30/19 15:29 100 25 40 01/30/19 13:29 103 22 40 01/30/19 13:02 108 01/30/19 12:00 97.5 108 20 100/73 (82) 99 01/30/19 12:00 40 01/30/19 12:00 Mechanical Ventilator 01/30/19 10:52 108 24 40 01/30/19 10:46 121 Intake and Output 01/30/19 01/31/19 19:00 07:00 Intake Total 1810 ml 2176.666 ml Output Total 400 ml Balance 1410 ml 2176.666 ml Free Water 150 ml 150 ml IV Total 1000 ml 1421.666 ml Tube Feeding 660 ml 605 ml Output Urine Total 400 ml # Bowel Movements 1 8 Microbiology Date/Time Source Procedure Growth Status 01/24/19 17:30 Blood Blood Culture - Final NO GROWTH AFTER 5 DAYS Complete 01/22/19 02:10 Nasal Nares MRSA Culture - Final NO METHICILLIN RESISTANT STAPH AUREUS... Complete 01/22/19 17:23 Stool Clostridium difficile Toxin Assay - Final Complete 01/22/19 04:45 Urine,Clean Catch Urine Culture - Final Enterococcus Faecalis - Vre Complete 01/22/19 02:10 Rectum - Final Escherichia Coli - Cre Complete Current Medications Medications (Trade) Dose Ordered Sig/Sima Route PRN Reason Start Time Stop Time Status Last Admin Dose Admin Acetaminophen (Tylenol) 650 mg Q4H PRN GT Mild Pain/Temp > 100.5 01/24/19 15:28 02/23/19 15:27 01/26/19 12:24 Acetaminophen/ Hydrocodone Bitart ([place] 10/325) 1 tab Q4H PRN GT For Pain 01/24/19 15:29 01/31/19 15:28 01/30/19 11:27 Ascorbic Acid (Vitamin C) 250 mg DAILY GT 01/25/19 09:00 02/24/19 08:59 01/31/19 09:07 Chlorhexidine Gluconate (Paulina-Hex 2%) 1 applic DAILY@1999 TOPIC 01/24/19 20:00 02/21/19 19:59 01/30/19 20:48 Dextrose (Dextrose 50%) 25 ml Q30M PRN IV Hypoglycemia 01/24/19 15:30 02/21/19 06:29 Dextrose (Dextrose 50%) 50 ml Q30M PRN IV Hypoglycemia 01/24/19 15:30 02/21/19 06:29 Famotidine (Pepcid I.v.) 20 mg Q12HR IVP 01/24/19 21:00 02/23/19 20:59 01/31/19 09:06 Insulin Aspart (NovoLOG) Q6HR SUBQ 01/26/19 12:00 02/21/19 07:29 01/31/19 05:32 Lorazepam (Ativan 2mg/ml 1ml) 2 mg Q4H PRN IV For Anxiety 01/29/19 14:30 02/05/19 14:29 01/29/19 14:38 Meropenem 1 gm/ Sodium Chloride 55 ml @ 110 mls/hr Q12H IVPB 01/24/19 17:00 02/02/19 16:59 01/31/19 05:30 Metronidazole 100 ml @ 100 mls/hr Q8HR IVPB 01/26/19 14:00 02/02/19 13:59 01/31/19 05:30 Midodrine (Pro-Amatine) 2.5 mg THREE TIMES A DAY GT 01/24/19 18:00 02/21/19 12:59 01/31/19 09:06 Morphine Sulfate (Morphine Sulfate) 4 mg Q6H PRN IVP Severe Pain (Pain Scale 7-10) 01/26/19 16:45 02/02/19 16:44 Sodium Chloride 1,000 ml @ 100 mls/hr Q10H IV 01/26/19 17:00 02/25/19 16:59 01/31/19 07:07 Tamsulosin HCl (Flomax) 0.4 mg BID ORAL 01/24/19 18:00 02/21/19 09:59 01/31/19 09:06 Vancomycin HCl (Firvanq) 500 mg FOUR TIMES A DAY ORAL 01/27/19 18:00 02/03/19 17:59 01/31/19 09:07 Vancomycin HCl (Vanco rx to dose) 1 ea DAILY PRN MISC Per rx protocol 01/29/19 15:30 02/28/19 15:29 Vancomycin/Sodium Chloride 275 ml @ 183.333 mls/hr Q12H IVPB 01/29/19 16:30 02/03/19 16:29 11/11/19 04:24 Laboratory Tests 01/30/19 12:18: Arterial Blood pH 7.382, Arterial Blood Partial Pressure CO2 31.7L, Arterial Blood Partial Pressure O2 53.8L, Arterial Blood HCO3 18.4L, Arterial Blood Oxygen Saturation 87.1*L, Arterial Blood Base Excess -5.8L, Melvin Test Positive 01/30/19 12:46: Sodium Level 144, Potassium Level 3.9, Chloride Level 118H, Carbon Dioxide Level 16L, Anion Gap 10, Blood Urea Nitrogen 22H, Creatinine 0.5L, Estimat Glomerular Filtration Rate > 60, Glucose Level 207H, Calcium Level 6.9L 01/30/19 16:05: Vancomycin Level Trough 11.9 01/31/19 03:00: White Blood Count 21.7H, Red Blood Count 3.41L, Hemoglobin 10.1L, Hematocrit 30.3L, Mean Corpuscular Volume 89, Mean Corpuscular Hemoglobin 29.7, Mean Corpuscular Hemoglobin Concent 33.4, Red Cell Distribution Width 15.3H, Platelet Count 371, Mean Platelet Volume 6.8, Neutrophils (%) (Auto) , Lymphocytes (%) (Auto) , Monocytes (%) (Auto) , Eosinophils (%) (Auto) , Basophils (%) (Auto) , Neutrophils % (Manual) [Pending], Lymphocytes % (Manual) [Pending], Platelet Estimate [Pending], Platelet Morphology [Pending], Phosphorus Level 2.3L, Magnesium Level 1.6L, Total Bilirubin 0.3, Direct Bilirubin 0.1, Aspartate Amino Transf (AST/SGOT) 40H, Alanine Aminotransferase ( ALT/SGPT) 37, Alkaline Phosphatase 296H, Total Protein 4.7L, Albumin 1.1L Height (Feet): 5 Height (Inches): 6.00 Weight (Pounds): 155 Objective exam stable hernández indwelling, urine yellow/abhay no active bleeding at meatus renal u/s (01/23) noted pelvic CT (01/28) noted Jake Pierre MD Jan 31, 2019 09:32
--- NOTE | 2019-01-31 10:43 | NUR ---
NURSE NOTES: Dr. Rudd made aware regarding ABG result and no new order.
--- NOTE | 2019-01-31 10:50 | Pulmonolgy Critical Care Note ---
Critical Care - Asmt/Plan Problems: (1) Septic shock (2) HCAP (healthcare-associated pneumonia) (3) Chronic respiratory failure (4) Ventilator dependence (5) Vegetative state (6) HARDEEP (acute kidney injury) (7) History of CVA (cerebrovascular accident) (8) Feeding by G-tube (9) HTN (hypertension) (10) Cerebral vascular disease Respiratory: monitor respiratory rate, adjust FIO2, CXR Cardiac: continue pressors, continue to monitor HR/BP Renal: F/U I&O Infectious Disease: check cultures Gastrointestinal: continue feedings/current rate Endocrine: monitor blood sugar, check HgA1C Hematologic: transfuse if hgb<8.5 Neurologic: PRN Ativan, PRN Morphine, keep patient comfortable Affect: PRN ativan Prophylaxis: Protonix Time Spent (Minutes): 40 Notes Reviewed: cardio, renal Discussed with: nurses, consultants, case foldermanager drug - Objective Last 24 Hour Vital Signs Date Time Temp Pulse Resp B/P (MAP) Pulse Ox O2 Delivery O2 Flow Rate FiO2 01/31/19 08:46 102 27 40 01/31/19 08:00 40 01/31/19 08:00 97.3 105 27 100/65 (77) 100 01/31/19 08:00 105 01/31/19 08:00 Mechanical Ventilator 01/31/19 06:40 105 25 40 01/31/19 05:29 102 22 40 01/31/19 04:00 97.3 101 25 134/74 (94) 99 01/31/19 04:00 Mechanical Ventilator 01/31/19 04:00 100 01/31/19 04:00 40 01/31/19 02:59 98 24 40 01/31/19 00:41 101 22 40 01/31/19 00:00 Mechanical Ventilator 01/31/19 00:00 97.2 98 22 120/70 (87) 99 01/31/19 00:00 98 01/31/19 00:00 40 01/30/19 22:44 99 25 40 01/30/19 20:00 99 01/30/19 20:00 Mechanical Ventilator 01/30/19 20:00 40 01/30/19 20:00 97.6 102 24 121/64 (83) 99 01/30/19 19:12 100 28 40 01/30/19 16:57 107 24 40 01/30/19 16:00 Mechanical Ventilator 01/30/19 16:00 40 01/30/19 16:00 97.7 106 23 123/47 (72) 99 01/30/19 15:53 107 01/30/19 15:29 100 25 40 01/30/19 13:29 103 22 40 01/30/19 13:02 108 01/30/19 12:00 97.5 108 20 100/73 (82) 99 01/30/19 12:00 40 01/30/19 12:00 Mechanical Ventilator 01/30/19 10:52 108 24 40 Status: awake Condition: critical HEENT: atraumatic Neck: full ROM Lungs: clear Heart: HR/BP stable Abdomen: soft, non-tender Extremities: no C/C/E Accucheck: 171 Critical Care - Subjective ROS Limited/Unobtainable: Yes EKG Rhythm: Sinus Rhythm FI02: 40 Vent Support Breath Rate: 16 Vent Support Mode: AC Vent Tidal Volume: 500 Sputum Amount: Small PEEP: 5.0 PIP: 19 Tube Feeding Amount: 55 I&O: Intake and Output 01/30/19 01/31/19 19:00 07:00 Intake Total 1810 ml 2176.666 ml Output Total 400 ml Balance 1410 ml 2176.666 ml Free Water 150 ml 150 ml IV Total 1000 ml 1421.666 ml Tube Feeding 660 ml 605 ml Output Urine Total 400 ml # Bowel Movements 1 8 Labs: Laboratory Tests Test 01/30/19 12:18 01/30/19 12:46 01/30/19 16:05 01/31/19 03:00 Arterial Blood pH 7.382 (7.350-7.450) Arterial Blood Partial Pressure CO2 31.7 mmHg (35.0-45.0) L Arterial Blood Partial Pressure O2 53.8 mmHg (75.0-100.0) L Arterial Blood HCO3 18.4 mmol/L (22.0-26.0) L Arterial Blood Oxygen Saturation 87.1 % (95-100) *L Arterial Blood Base Excess -5.8 (-2-2) L Melvin Test Positive Sodium Level 144 MMOL/L (136-145) Potassium Level 3.9 MMOL/L (3.5-5.1) Chloride Level 118 MMOL/L (98-107) H Carbon Dioxide Level 16 MMOL/L (21-32) L Anion Gap 10 mmol/L (5-15) Blood Urea Nitrogen 22 mg/dL (7-18) H Creatinine 0.5 MG/DL (0.55-1.30) L Estimat Glomerular Filtration Rate > 60 mL/min (>60) Glucose Level 207 MG/DL (74-106) H Calcium Level 6.9 MG/DL (8.5-10.1) L Vancomycin Level Trough 11.9 ug/mL (5.0-12.0) White Blood Count 21.7 K/UL (4.8-10.8) H Red Blood Count 3.41 M/UL (4.70-6.10) L Hemoglobin 10.1 G/DL (14.2-18.0) L Hematocrit 30.3 % (42.0-52.0) L Mean Corpuscular Volume 89 FL (80-99) Mean Corpuscular Hemoglobin 29.7 PG (27.0-31.0) Mean Corpuscular Hemoglobin Concent 33.4 G/DL (32.0-36.0) Red Cell Distribution Width 15.3 % (11.6-14.8) H Platelet Count 371 K/UL (150-450) Mean Platelet Volume 6.8 FL (6.5-10.1) Neutrophils (%) (Auto) % (45.0-75.0) Lymphocytes (%) (Auto) % (20.0-45.0) Monocytes (%) (Auto) % (1.0-10.0) Eosinophils (%) (Auto) % (0.0-3.0) Basophils (%) (Auto) % (0.0-2.0) Differential Total Cells Counted 100 Neutrophils % (Manual) 81 % (45-75) H Lymphocytes % (Manual) 10 % (20-45) L Monocytes % (Manual) 6 % (1-10) Eosinophils % (Manual) 3 % (0-3) Basophils % (Manual) 0 % (0-2) Band Neutrophils 0 % (0-8) Platelet Estimate Adequate Platelet Morphology Normal Hypochromasia 1+ Anisocytosis 1+ Phosphorus Level 2.3 MG/DL (2.5-4.9) L Magnesium Level 1.6 MG/DL (1.8-2.4) L Total Bilirubin 0.3 MG/DL (0.2-1.0) Direct Bilirubin 0.1 MG/DL (0.0-0.3) Aspartate Amino Transf (AST/SGOT) 40 U/L (15-37) H Alanine Aminotransferase (ALT/SGPT) 37 U/L (12-78) Alkaline Phosphatase 296 U/L (46-116) H Total Protein 4.7 G/DL (6.4-8.2) L Albumin 1.1 G/DL (3.4-5.0) L Test 01/31/19 10:19 Arterial Blood pH 7.411 (7.350-7.450) Arterial Blood Partial Pressure CO2 21.6 mmHg (35.0-45.0) *L Arterial Blood Partial Pressure O2 107.0 mmHg (75.0-100.0) H Arterial Blood HCO3 13.4 mmol/L (22.0-26.0) *L Arterial Blood Oxygen Saturation 97.5 % (95-100) Arterial Blood Base Excess -9.4 (-2-2) *L Melvin Test Positive Sagar Rudd MD Jan 31, 2019 10:50
[2019-01-31 12:00] VITALS: BP 111/71
--- NOTE | 2019-01-31 12:31 | General Progress Note ---
Assessment/Plan Status: unchanged Assessment/Plan: (1) Clostridium difficile diarrhea ICD Codes: A04.72 - Enterocolitis due to Clostridium difficile, not specified as recurrent SNOMED: 2415854070392 (2) Severe sepsis ICD Codes: A41.9 - Sepsis, unspecified organism; R65.20 - Severe sepsis without septic shock SNOMED: 61867997 (3) Feeding by G-tube ICD Codes: Z93.1 - Feeding by G-tube SNOMED: 570061908 (4) Diarrhea ICD Codes: R19.7 - Diarrhea, unspecified SNOMED: 61065669 (5) Upper GI bleed ICD Codes: K92.2 - Gastrointestinal hemorrhage, unspecified SNOMED: 12693950 Assessment/Plan No plans for GI procedures at this time given sepsis. Monitor H&H, PRN transfusions Occult blood to rule out any GI bleed Hold PPI given C. difficile H2B Antibiotics per infectious diseases for C. difficile IV hydration plus electrolyte correction GTF Follow labs recent CT reviewed consider vanco enema if WBC still elevated Subjective ROS Limited/Unobtainable: No Allergies: Coded Allergies: OXYTETRACYCLINE (Unverified Allergy, Unknown, 09/05/13) PENICILLINS (Unverified Allergy, Unknown, 06/11/17) Tolerated one dose of Cefepime 06/07/17 Tolerated Cefdinir 06/10/17 Uncoded Allergies: PLASTIC TAPE (Allergy, Mild, ITCHINESS, 08/08/15) MEDICAL TAPE (Allergy, Unknown, 12/10/16) Objective Last 24 Hour Vital Signs Date Time Temp Pulse Resp B/P (MAP) Pulse Ox O2 Delivery O2 Flow Rate FiO2 01/31/19 12:00 40 01/31/19 12:00 97.7 110 25 111/71 (84) 99 01/31/19 12:00 Mechanical Ventilator 01/31/19 11:02 104 24 40 01/31/19 08:46 102 27 40 01/31/19 08:00 40 01/31/19 08:00 97.3 105 27 100/65 (77) 100 01/31/19 08:00 105 01/31/19 08:00 Mechanical Ventilator 01/31/19 06:40 105 25 40 01/31/19 05:29 102 22 40 01/31/19 04:00 97.3 101 25 134/74 (94) 99 01/31/19 04:00 Mechanical Ventilator 01/31/19 04:00 100 01/31/19 04:00 40 01/31/19 02:59 98 24 40 01/31/19 00:41 101 22 40 01/31/19 00:00 Mechanical Ventilator 01/31/19 00:00 97.2 98 22 120/70 (87) 99 01/31/19 00:00 98 01/31/19 00:00 40 01/30/19 22:44 99 25 40 01/30/19 20:00 99 01/30/19 20:00 Mechanical Ventilator 01/30/19 20:00 40 01/30/19 20:00 97.6 102 24 121/64 (83) 99 01/30/19 19:12 100 28 40 01/30/19 16:57 107 24 40 01/30/19 16:00 Mechanical Ventilator 01/30/19 16:00 40 01/30/19 16:00 97.7 106 23 123/47 (72) 99 01/30/19 15:53 107 01/30/19 15:29 100 25 40 01/30/19 13:29 103 22 40 01/30/19 13:02 108 Intake and Output 01/30/19 01/31/19 19:00 07:00 Intake Total 1810 ml 2231.666 ml Output Total 400 ml Balance 1410 ml 2231.666 ml Free Water 150 ml 150 ml IV Total 1000 ml 1421.666 ml Tube Feeding 660 ml 660 ml Output Urine Total 400 ml # Bowel Movements 1 8 Laboratory Tests 01/30/19 12:46: Sodium Level 144, Potassium Level 3.9, Chloride Level 118H, Carbon Dioxide Level 16L, Anion Gap 10, Blood Urea Nitrogen 22H, Creatinine 0.5L, Estimat Glomerular Filtration Rate > 60, Glucose Level 207H, Calcium Level 6.9L 01/30/19 16:05: Vancomycin Level Trough 11.9 01/31/19 03:00: White Blood Count 21.7H, Red Blood Count 3.41L, Hemoglobin 10.1L, Hematocrit 30.3L, Mean Corpuscular Volume 89, Mean Corpuscular Hemoglobin 29.7, Mean Corpuscular Hemoglobin Concent 33.4, Red Cell Distribution Width 15.3H, Platelet Count 371, Mean Platelet Volume 6.8, Neutrophils (%) (Auto) , Lymphocytes (%) (Auto) , Monocytes (%) (Auto) , Eosinophils (%) (Auto) , Basophils (%) (Auto) , Differential Total Cells Counted 100, Neutrophils % ( Manual) 81H, Lymphocytes % (Manual) 10L, Monocytes % (Manual) 6, Eosinophils % ( Manual) 3, Basophils % (Manual) 0, Band Neutrophils 0, Platelet Estimate Adequate, Platelet Morphology Normal, Hypochromasia 1+, Anisocytosis 1+, Phosphorus Level 2.3L, Magnesium Level 1.6L, Total Bilirubin 0.3, Direct Bilirubin 0.1, Aspartate Amino Transf (AST/SGOT) 40H, Alanine Aminotransferase ( ALT/SGPT) 37, Alkaline Phosphatase 296H, Total Protein 4.7L, Albumin 1.1L 01/31/19 10:19: Arterial Blood pH 7.411, Arterial Blood Partial Pressure CO2 21.6*L, Arterial Blood Partial Pressure O2 107.0H, Arterial Blood HCO3 13.4*L, Arterial Blood Oxygen Saturation 97.5, Arterial Blood Base Excess -9.4*L, Melvin Test Positive Height (Feet): 5 Height (Inches): 6.00 Weight (Pounds): 155 General Appearance: no apparent distress EENT: normal ENT inspection Neck: supple Cardiovascular: normal rate Respiratory/Chest: decreased breath sounds Abdomen: normal bowel sounds, non tender, soft Extremities: non-tender Gaurav Rosas MD Jan 31, 2019 12:31
--- NOTE | 2019-01-31 13:51 | Nephrology Progress Note ---
Assessment/Plan Problem List: (1) Hypokalemia (2) HARDEEP (acute kidney injury) (3) Sepsis (4) Hyponatremia Assessment HARDEEP (acute kidney injury) HypoNatremia Septic shock Others: HCAP (healthcare-associated pneumonia) Chronic respiratory failure Ventilator dependence Vegetative state History of CVA (cerebrovascular accident) Feeding by G-tube HTN (hypertension) Cerebral vascular disease Plan K Phos mag as needed Hydrate monitor renal parameters Midodrine Antibiotics Avoid nephrotoxics Brooks could not be put in due to resistance start flomax per order Subjective ROS Limited/Unobtainable: Yes Objective Objective Last 24 Hour Vital Signs Date Time Temp Pulse Resp B/P (MAP) Pulse Ox O2 Delivery O2 Flow Rate FiO2 01/31/19 13:03 109 26 40 01/31/19 12:00 40 01/31/19 12:00 97.7 110 25 111/71 (84) 99 01/31/19 12:00 103 01/31/19 12:00 Mechanical Ventilator 01/31/19 11:02 104 24 40 01/31/19 08:46 102 27 40 01/31/19 08:00 40 01/31/19 08:00 97.3 105 27 100/65 (77) 100 01/31/19 08:00 105 01/31/19 08:00 Mechanical Ventilator 01/31/19 06:40 105 25 40 01/31/19 05:29 102 22 40 01/31/19 04:00 97.3 101 25 134/74 (94) 99 01/31/19 04:00 Mechanical Ventilator 01/31/19 04:00 100 01/31/19 04:00 40 01/31/19 02:59 98 24 40 01/31/19 00:41 101 22 40 01/31/19 00:00 Mechanical Ventilator 01/31/19 00:00 97.2 98 22 120/70 (87) 99 01/31/19 00:00 98 01/31/19 00:00 40 01/30/19 22:44 99 25 40 01/30/19 20:00 99 01/30/19 20:00 Mechanical Ventilator 01/30/19 20:00 40 01/30/19 20:00 97.6 102 24 121/64 (83) 99 01/30/19 19:12 100 28 40 01/30/19 16:57 107 24 40 01/30/19 16:00 Mechanical Ventilator 01/30/19 16:00 40 01/30/19 16:00 97.7 106 23 123/47 (72) 99 01/30/19 15:53 107 01/30/19 15:29 100 25 40 Intake and Output 01/30/19 01/31/19 19:00 07:00 Intake Total 1810 ml 2231.666 ml Output Total 400 ml Balance 1410 ml 2231.666 ml Free Water 150 ml 150 ml IV Total 1000 ml 1421.666 ml Tube Feeding 660 ml 660 ml Output Urine Total 400 ml # Bowel Movements 1 8 Laboratory Tests 01/30/19 16:05: Vancomycin Level Trough 11.9 01/31/19 03:00: White Blood Count 21.7H, Red Blood Count 3.41L, Hemoglobin 10.1L, Hematocrit 30.3L, Mean Corpuscular Volume 89, Mean Corpuscular Hemoglobin 29.7, Mean Corpuscular Hemoglobin Concent 33.4, Red Cell Distribution Width 15.3H, Platelet Count 371, Mean Platelet Volume 6.8, Neutrophils (%) (Auto) , Lymphocytes (%) (Auto) , Monocytes (%) (Auto) , Eosinophils (%) (Auto) , Basophils (%) (Auto) , Differential Total Cells Counted 100, Neutrophils % ( Manual) 81H, Lymphocytes % (Manual) 10L, Monocytes % (Manual) 6, Eosinophils % ( Manual) 3, Basophils % (Manual) 0, Band Neutrophils 0, Platelet Estimate Adequate, Platelet Morphology Normal, Hypochromasia 1+, Anisocytosis 1+, Phosphorus Level 2.3L, Magnesium Level 1.6L, Total Bilirubin 0.3, Direct Bilirubin 0.1, Aspartate Amino Transf (AST/SGOT) 40H, Alanine Aminotransferase ( ALT/SGPT) 37, Alkaline Phosphatase 296H, Total Protein 4.7L, Albumin 1.1L 01/31/19 10:19: Arterial Blood pH 7.411, Arterial Blood Partial Pressure CO2 21.6*L, Arterial Blood Partial Pressure O2 107.0H, Arterial Blood HCO3 13.4*L, Arterial Blood Oxygen Saturation 97.5, Arterial Blood Base Excess -9.4*L, Melvin Test Positive Height (Feet): 5 Height (Inches): 6.00 Weight (Pounds): 155 General Appearance: no apparent distress EENT: other - trach- vent Respiratory/Chest: decreased breath sounds Abdomen: distended Objective no change Sergey Rivera MD Jan 31, 2019 13:51
--- NOTE | 2019-01-31 15:28 | NUR ---
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 97.3 HR 105 RR 27 B/P 100/65 AC 16 TV 500 FIO2 405 PEEP 5 WBC 21.7 MG 1.6 AST 40 ALK PHOS 296 PH 7.41 PCO2 21.6 PO2 107.0 HCO3 13.4 O2 SAT 97 IS: IVF NS @ 100ML/HR VANCO IV MEROPENEM IV FLAGYL IV MAGNESIUM IV X 1 VANCO GT STEP DOWN STATUS
--- NOTE | 2019-01-31 15:30 | Surgery Progress Note ---
Surgery Progress Note Subjective Additional Comments leukocytosis trending down diarrhea improved exam stable Objective Last 24 Hour Vital Signs Date Time Temp Pulse Resp B/P (MAP) Pulse Ox O2 Delivery O2 Flow Rate FiO2 01/31/19 15:20 107 26 40 01/31/19 13:03 109 26 40 01/31/19 12:00 40 01/31/19 12:00 97.7 110 25 111/71 (84) 99 01/31/19 12:00 103 01/31/19 12:00 Mechanical Ventilator 01/31/19 11:02 104 24 40 01/31/19 08:46 102 27 40 01/31/19 08:00 40 01/31/19 08:00 97.3 105 27 100/65 (77) 100 01/31/19 08:00 105 01/31/19 08:00 Mechanical Ventilator 01/31/19 06:40 105 25 40 01/31/19 05:29 102 22 40 01/31/19 04:00 97.3 101 25 134/74 (94) 99 01/31/19 04:00 Mechanical Ventilator 01/31/19 04:00 100 01/31/19 04:00 40 01/31/19 02:59 98 24 40 01/31/19 00:41 101 22 40 01/31/19 00:00 Mechanical Ventilator 01/31/19 00:00 97.2 98 22 120/70 (87) 99 01/31/19 00:00 98 01/31/19 00:00 40 01/30/19 22:44 99 25 40 01/30/19 20:00 99 01/30/19 20:00 Mechanical Ventilator 01/30/19 20:00 40 01/30/19 20:00 97.6 102 24 121/64 (83) 99 01/30/19 19:12 100 28 40 01/30/19 16:57 107 24 40 01/30/19 16:00 Mechanical Ventilator 01/30/19 16:00 40 01/30/19 16:00 97.7 106 23 123/47 (72) 99 01/30/19 15:53 107 I&O Intake and Output 01/30/19 01/31/19 19:00 07:00 Intake Total 1810 ml 2231.666 ml Output Total 400 ml Balance 1410 ml 2231.666 ml Free Water 150 ml 150 ml IV Total 1000 ml 1421.666 ml Tube Feeding 660 ml 660 ml Output Urine Total 400 ml # Bowel Movements 1 8 Dressing: saturated Wound: other Drains: other Cardiovascular: RSR Respiratory: decreased breath sounds Abdomen: soft, present bowel sounds Extremities: no cyanosis Laboratory Tests Test 01/30/19 16:05 01/31/19 03:00 01/31/19 10:19 Vancomycin Level Trough 11.9 ug/mL (5.0-12.0) White Blood Count 21.7 K/UL (4.8-10.8) H Red Blood Count 3.41 M/UL (4.70-6.10) L Hemoglobin 10.1 G/DL (14.2-18.0) L Hematocrit 30.3 % (42.0-52.0) L Mean Corpuscular Volume 89 FL (80-99) Mean Corpuscular Hemoglobin 29.7 PG (27.0-31.0) Mean Corpuscular Hemoglobin Concent 33.4 G/DL (32.0-36.0) Red Cell Distribution Width 15.3 % (11.6-14.8) H Platelet Count 371 K/UL (150-450) Mean Platelet Volume 6.8 FL (6.5-10.1) Neutrophils (%) (Auto) % (45.0-75.0) Lymphocytes (%) (Auto) % (20.0-45.0) Monocytes (%) (Auto) % (1.0-10.0) Eosinophils (%) (Auto) % (0.0-3.0) Basophils (%) (Auto) % (0.0-2.0) Differential Total Cells Counted 100 Neutrophils % (Manual) 81 % (45-75) H Lymphocytes % (Manual) 10 % (20-45) L Monocytes % (Manual) 6 % (1-10) Eosinophils % (Manual) 3 % (0-3) Basophils % (Manual) 0 % (0-2) Band Neutrophils 0 % (0-8) Platelet Estimate Adequate Platelet Morphology Normal Hypochromasia 1+ Anisocytosis 1+ Phosphorus Level 2.3 MG/DL (2.5-4.9) L Magnesium Level 1.6 MG/DL (1.8-2.4) L Total Bilirubin 0.3 MG/DL (0.2-1.0) Direct Bilirubin 0.1 MG/DL (0.0-0.3) Aspartate Amino Transf (AST/SGOT) 40 U/L (15-37) H Alanine Aminotransferase (ALT/SGPT) 37 U/L (12-78) Alkaline Phosphatase 296 U/L (46-116) H Total Protein 4.7 G/DL (6.4-8.2) L Albumin 1.1 G/DL (3.4-5.0) L Arterial Blood pH 7.411 (7.350-7.450) Arterial Blood Partial Pressure CO2 21.6 mmHg (35.0-45.0) *L Arterial Blood Partial Pressure O2 107.0 mmHg (75.0-100.0) H Arterial Blood HCO3 13.4 mmol/L (22.0-26.0) *L Arterial Blood Oxygen Saturation 97.5 % (95-100) Arterial Blood Base Excess -9.4 (-2-2) *L Melvin Test Positive Plan Problems: (1) Decubitus skin ulcer Assessment & Plan: Pt presented on admission with contractures, multiple pressure injuries .Pt noted to have 3 pressure injuries L elbow. Laterally L elbow -Full thickness pressure injury with 40% slough at base of wound,60% beefy red. Small amt sanguineous exudate noted(L)1.4cm x (W)2.1cm. Pressure injury L elbow (proximal) (L)0.5cm x (W)1cm . Scattered biofilm at base of wound , borders are macerated.(Inferior) (L)0.4cm x (W)0.5cm . Base of wound moist with Biofilm. Small amt serous exudate noted. (L)0.4cm x (W)0.5cm. Full thickness sacral pressure injury. Base of wound is pink- moist with scattered biofilm,(+) maceration along borders. Non-blanching erythema without induration periwound (L)11.2cm x (W)4.5cm x (D)0.4cm. Two additional pressure injuries noted to L and R sacrum. Partial thickness L sacral pressure injury. Base of wound is moist and viable. Edges are macerated with surrounding non-blanching erythema without induration or elevation in skin temp.(L)0.9cm x (W)1.3cm.R sacral partial thickness pressure injury. Base of wound is moist and viable. Edges flat and adherent to base of wound. Non- blanching erythema without induration or elevation in skin temp.(L)2cm x (W) 1.5cm. Partial thickness pressure injury to outer R buttocks. base of wound moist and viable. Edges flat and adherent to base of wound. Non-blanching erythema periwound.(L)2.3cm x (W)2.5cm. Partial thickness pressure injury inferior but in close proximity R buttocks (L) 2cm x (W)2cm . Base of wound is moist and viable. Surrounding non-blanching erythema without induration. Erythematous and indurated area noted to L groin. No elevation in skin temp noted. Scrotal sac is also erythematous. Non-blanching erythema with fluctuance R hallux. (L)1.6cm x (W)1.7cm. Pressure injury dorsal R foot . Base of wound moist with small amt of Biofilm.(+ ) maceration along borders.(L)1.5cm x (W)1.7cm. R 1st metatarsal necrotic with soft center with slough . Small amt seropurulent exudate noted. Marginal erythema along borders. (L)1.5cm x (W)1.5cm. Non-blanching erythema without induration or fluctuance lateral malleolus(L) 2.5cm x (W)2.5cm. L heel is boggy with non-blanching erythema. R heel is boggy but pink and easily blanchable. Tx.plan: Cleanse Sacral wound with Saline. Apply Therahoney. Apply Triad Paste periwound. Cover with Optifoam drsg. Change every 3 days and prn. Apply Triad paste to pressure injuries R and L sacrum and R outer Buttocks. Cover wounds with Optifoam drsg. Change every 3 days and prn. Apply Triad paste to groin and scrotum with each incontinence care. Cleanse wounds L elbow with saline. Apply Therahoney to wounds. Cover with Optifoam drsg. Change every 3 days and prn. Apply Betadine to wounds dorsal R foot and R 1st metatarsal . Cover with Optifoam drsg. Change daily and prn. Apply Cavilon to R hallux, R and L malleoli and both heels. Cover each site with Optifoam drsgs. Change every 7 days and prn. APM/RENETTA Mattress overlay. Reposition at least every 2hours or as tolerated. Off-load heels with Pillow. Place pillow between knees. (2) Septic shock Assessment & Plan: Leukocytosis - improved Lactic acidosis resolved off pressors on IV fluids tube feeds needs nutritional supplementation Rx as written cont current care and management will follow with recs c diff CT reviewed - No evidence of abscess or CT evidence for acute osteomyelitis/ erosion of the coccyx/sacrum in the area of the clinically demonstrated decubitus ulceration/ wound. The wound itself is not well seen on CT. Severe proctocolitis with wall thickening and inflammation as well as luminal distention due to fecal impaction. Rectal tube noted in place. abx as per ID thank you (3) Feeding by G-tube Assessment & Plan: DAILY ESTIMATED NEEDS: Needs based on Critical care, wound 68kg 22-30 kcals/kg 0279-1113 total kcals 1.25-2 g protein/kg 85-136 g total protein 25-30 mL/kg 4482-7147 total fluid mLs NUTRITION DIAGNOSIS: 1) Swallowing difficulty R/T respiratory status as evidenced by pt vent dep via trach, PEG dep, on TF. 2) Increased kcal/prot needs R/T wound healing as evidenced by pt admitted w/ multiple wounds, including open sacral wound, eval pending. ENTERAL NUTRITION RECOMMENDATIONS: Vital AF 1.2 @55ml x24 hrs to provide 1320ml, 1584kcal, 99g prot, 1071ml free H20 * As medically appropriate w/ hemodynamic stability, rec elemental formula of Vital for GI tolerance. * Initiate VITAL 1.2 @ 15ml/hr x 6 hrs, advance 10ml q 4-6 hrs as tolerated to goal rate. * HOB >30 degrees/ water flushes per MD ADDITIONAL RECOMMENDATIONS: 1) Maintain calibrated bed scale wts 2) Wound healing: add Darryl 1pkt BID w/ TF order Add Vit C 250mg daily (f/up w/ WC eval) 3) F/up w/ H&P 4) Lytes daily, replete as needed (4) Vegetative state Jimmy Tang Jan 31, 2019 15:30
[2019-01-31 16:00] VITALS: BP 110/64
[2019-01-31] MEDS ORDERED: NS 500ML ONE (16:22)
[2019-01-31] MEDS ORDERED: Tubing IV Secondary IV ONE (16:22)
--- NOTE | 2019-01-31 17:23 | Infectious Diseases Prog Note ---
Assessment/Plan Assessment/Plan 63 yo male who was sent to the ED on 01/21/19 for hypotension, fever and respiratory distress. Fever, SP Leukocytosis, fluctuating Gram negative Sepsis 01/22 BCx: ESBL K pneumoniae, GBS, MRSA 01/22 CXR: bilateral opacities 01/22 UA positive. UCx VRE 01/23 CXR: Redemonstration of bibasilar patchy airspace opacities. Unchanged pulmonary vascular congestion. No pneumothorax. Stable small left pleural effusion. 01/24 Bcx: ngtd TTE negative 01/22 C diff positive 01/26 KUB: Nonspecific bowel gas pattern. Gastrostomy. No definite acute process 01/27 CT Pelvis: Severe proctocolitis with wall thicken in and inflammation as well as luminal distention due to fecal impaction. Rectal tube noted in place. Decubitus ulcer 01/27 CT Pelvis: No evidence of abscess or CT evidence for acute osteomyelitis /erosion of the coccyx/sacrum in the area of the clinically demonstrated decubitus ulceration/wound. The wound itself is not well seen on CT. VRE colonization DM COPD CVA Dementia Parkinsons Cardiac issues Vent dependent with trach G tube PLAN: - continue meropenem #01/03 - increase vanc po to 500mg #07/26- - SP vanc po 125mg #4 - Flagyl IV #08/30- - Vancomycin IV #/ - 01/28 SP Daptomycin #5 - 01/24 DC vancomycin IV #2 - f/u cultures - f/u repeat blood cultures - Monitor CBC and Temps Thank you for this consult. [facility] will continue to follow the patient with you during this hospitalization. Subjective Allergies: Coded Allergies: OXYTETRACYCLINE (Unverified Allergy, Unknown, 09/05/13) PENICILLINS (Unverified Allergy, Unknown, 06/11/17) Tolerated one dose of Cefepime 06/07/17 Tolerated Cefdinir 06/10/17 Uncoded Allergies: PLASTIC TAPE (Allergy, Mild, ITCHINESS, 08/08/15) MEDICAL TAPE (Allergy, Unknown, 12/10/16) Subjective Afebrile. Tachycardia but better. FiO2 40%. Only one bowel movement per shift Objective Vital Signs Last 24 Hour Vital Signs Date Time Temp Pulse Resp B/P (MAP) Pulse Ox O2 Delivery O2 Flow Rate FiO2 01/31/19 17:20 108 26 40 01/31/19 16:00 104 01/31/19 15:20 107 26 40 01/31/19 13:03 109 26 40 01/31/19 12:00 40 01/31/19 12:00 97.7 110 25 111/71 (84) 99 01/31/19 12:00 103 01/31/19 12:00 Mechanical Ventilator 01/31/19 11:02 104 24 40 01/31/19 08:46 102 27 40 01/31/19 08:00 40 01/31/19 08:00 97.3 105 27 100/65 (77) 100 01/31/19 08:00 105 01/31/19 08:00 Mechanical Ventilator 01/31/19 06:40 105 25 40 01/31/19 05:29 102 22 40 01/31/19 04:00 97.3 101 25 134/74 (94) 99 01/31/19 04:00 Mechanical Ventilator 01/31/19 04:00 100 01/31/19 04:00 40 01/31/19 02:59 98 24 40 01/31/19 00:41 101 22 40 01/31/19 00:00 Mechanical Ventilator 01/31/19 00:00 97.2 98 22 120/70 (87) 99 01/31/19 00:00 98 01/31/19 00:00 40 01/30/19 22:44 99 25 40 01/30/19 20:00 99 01/30/19 20:00 Mechanical Ventilator 01/30/19 20:00 40 01/30/19 20:00 97.6 102 24 121/64 (83) 99 01/30/19 19:12 100 28 40 Height (Feet): 5 Height (Inches): 6.00 Weight (Pounds): 155 Objective Gen: NAD CV: RRR Resp: coarse. ventilatory sounds Abd: soft. Distended. Hypoactive BS+. G tube Ext: contracted Neuro: not alert Laboratory Tests Test 01/31/19 03:00 01/31/19 10:19 White Blood Count 21.7 K/UL (4.8-10.8) H Red Blood Count 3.41 M/UL (4.70-6.10) L Hemoglobin 10.1 G/DL (14.2-18.0) L Hematocrit 30.3 % (42.0-52.0) L Mean Corpuscular Volume 89 FL (80-99) Mean Corpuscular Hemoglobin 29.7 PG (27.0-31.0) Mean Corpuscular Hemoglobin Concent 33.4 G/DL (32.0-36.0) Red Cell Distribution Width 15.3 % (11.6-14.8) H Platelet Count 371 K/UL (150-450) Mean Platelet Volume 6.8 FL (6.5-10.1) Neutrophils (%) (Auto) % (45.0-75.0) Lymphocytes (%) (Auto) % (20.0-45.0) Monocytes (%) (Auto) % (1.0-10.0) Eosinophils (%) (Auto) % (0.0-3.0) Basophils (%) (Auto) % (0.0-2.0) Differential Total Cells Counted 100 Neutrophils % (Manual) 81 % (45-75) H Lymphocytes % (Manual) 10 % (20-45) L Monocytes % (Manual) 6 % (1-10) Eosinophils % (Manual) 3 % (0-3) Basophils % (Manual) 0 % (0-2) Band Neutrophils 0 % (0-8) Platelet Estimate Adequate Platelet Morphology Normal Hypochromasia 1+ Anisocytosis 1+ Phosphorus Level 2.3 MG/DL (2.5-4.9) L Magnesium Level 1.6 MG/DL (1.8-2.4) L Total Bilirubin 0.3 MG/DL (0.2-1.0) Direct Bilirubin 0.1 MG/DL (0.0-0.3) Aspartate Amino Transf (AST/SGOT) 40 U/L (15-37) H Alanine Aminotransferase (ALT/SGPT) 37 U/L (12-78) Alkaline Phosphatase 296 U/L (46-116) H Total Protein 4.7 G/DL (6.4-8.2) L Albumin 1.1 G/DL (3.4-5.0) L Arterial Blood pH 7.411 (7.350-7.450) Arterial Blood Partial Pressure CO2 21.6 mmHg (35.0-45.0) *L Arterial Blood Partial Pressure O2 107.0 mmHg (75.0-100.0) H Arterial Blood HCO3 13.4 mmol/L (22.0-26.0) *L Arterial Blood Oxygen Saturation 97.5 % (95-100) Arterial Blood Base Excess -9.4 (-2-2) *L Melvin Test Positive Current Medications Medications (Trade) Dose Ordered Sig/Sima Route PRN Reason Start Time Stop Time Status Last Admin Dose Admin Acetaminophen (Tylenol) 650 mg Q4H PRN GT Mild Pain/Temp > 100.5 01/24/19 15:28 02/23/19 15:27 01/26/19 12:24 Ascorbic Acid (Vitamin C) 250 mg DAILY GT 01/25/19 09:00 02/24/19 08:59 01/31/19 09:07 Chlorhexidine Gluconate (Paulina-Hex 2%) 1 applic DAILY@1999 TOPIC 01/24/19 20:00 02/21/19 19:59 01/30/19 20:48 Dextrose (Dextrose 50%) 25 ml Q30M PRN IV Hypoglycemia 01/24/19 15:30 02/21/19 06:29 Dextrose (Dextrose 50%) 50 ml Q30M PRN IV Hypoglycemia 01/24/19 15:30 02/21/19 06:29 Famotidine (Pepcid I.v.) 20 mg Q12HR IVP 01/24/19 21:00 02/23/19 20:59 01/31/19 09:06 Insulin Aspart (NovoLOG) Q6HR SUBQ 01/26/19 12:00 02/21/19 07:29 01/31/19 12:24 Lorazepam (Ativan 2mg/ml 1ml) 2 mg Q4H PRN IV For Anxiety 01/29/19 14:30 02/05/19 14:29 01/29/19 14:38 Meropenem 1 gm/ Sodium Chloride 55 ml @ 110 mls/hr Q12H IVPB 01/24/19 17:00 02/03/19 23:59 01/31/19 05:30 Metronidazole 100 ml @ 100 mls/hr Q8HR IVPB 01/26/19 14:00 02/08/19 23:59 01/31/19 14:50 Midodrine (Pro-Amatine) 2.5 mg THREE TIMES A DAY GT 01/24/19 18:00 02/21/19 12:59 01/31/19 12:24 Morphine Sulfate (Morphine Sulfate) 4 mg Q6H PRN IVP Severe Pain (Pain Scale 7-10) 01/26/19 16:45 02/02/19 16:44 Sodium Chloride 1,000 ml @ 100 mls/hr Q10H IV 01/26/19 17:00 02/25/19 16:59 01/31/19 07:07 Tamsulosin HCl (Flomax) 0.4 mg BID ORAL 01/24/19 18:00 02/21/19 09:59 01/31/19 09:06 Vancomycin HCl (Firvanq) 500 mg FOUR TIMES A DAY ORAL 01/27/19 18:00 02/05/19 23:59 01/31/19 12:24 Vancomycin HCl (Vanco rx to dose) 1 ea DAILY PRN MISC Per rx protocol 01/29/19 15:30 02/28/19 15:29 Vancomycin/Sodium Chloride 275 ml @ 183.333 mls/hr Q12H IVPB 01/29/19 16:30 02/05/19 23:59 01/31/19 04:24 Mukesh Betancourt MD Jan 31, 2019 17:23
--- NOTE | 2019-01-31 19:12 | NUR ---
HAND-OFF: Report given to Gerson RN. Pt. remain stable.
--- NOTE | 2019-01-31 19:15 | NUR ---
NURSE NOTES: Report received from GEOVANNA Garcia. Observed pt lying in the bed. Obtunded. No signs of pain noted. Trac to vent, Portex 7, AC 16, TV 500, FIO2 40%, PEEP 5, saturating at 100%. GT intact and running Vital A.F 1.2 at 55cc/hr. F/C intact and draining yellow urine. R IJ triple lumen central line noted, only 1 port, flushing, running NS at 100c/hr. Bed in the lowest position. Side rails up x3. Will continue to monitor.
[2019-01-31 20:00] VITALS: BP 129/74
[2019-01-31] MEDS: Dyna-Hex 2% Top Sol 2oz TOPIC SCH (20:31)
[2019-01-31] MEDS: Acetaminophen 650mg/20.3ml GT PRN (20:31)
[2019-01-31] MEDS ORDERED: HYDROcodone/Acetamin 10/325 tab GT PRN (22:30)
--- NOTE | 2019-01-31 23:00 | NUR ---
NURSE NOTES: Observed pt sleeping in the bed. ST on hospital monitor with HR of 35. No acute distress noted at this time. Tolerating well with current vent setting. F/C intact, draining yellow urine. GT intact and no residual noted. Oral care given. Reposition done. Will continue to monitor.
[2019-02-01] VITALS: BP 127/74
[2019-02-01] MEDS: NovoLOG Insulin Flexpen SUBQ SCH ×5 (00:21→23:48)
--- NOTE | 2019-02-01 01:00 | NUR ---
NURSE NOTES: Report received from GEOVANNA Carrillo. Pt observed lying in the bed. Pt is obtunded. No signs of pain noted when using FLACC scale to evaluate. Trac to vent, Portex 7, AC 16, TV 500, FIO2 40%, PEEP 5, saturating at 100%. GT intact and running Vital A.F 1.2 at 55cc/hr. No residual noted. Brooks catheter intact and draining to gravity; Dark yellow urine noted in collection bag. R IJ triple lumen central line noted, only 1 port, flushing, running NS at 100c/hr. Bed in the lowest position. Side rails up x3 and padded per protocol, bed alarm activated and safety wheels engaged, call light is within reach. Will continue to monitor.
--- NOTE | 2019-02-01 01:04 | NUR ---
HAND-OFF: Report given to GEOVANNA Cervantes. No acute distress noted at this time.
[2019-02-01] MEDS: Vancomycin 1.25gm/NS Premix IVPB SCH ×2 (03:47→17:27)
[2019-02-01 04:00] VITALS: BP 140/56
--- NOTE | 2019-02-01 04:00 | NUR ---
NURSE NOTES: Patient provided with oral care, bed bath and linen change. Patient tolerated care well and continues to show O2 saturation between 98-100% GT flushed and remains intact and patent. Patient remains resting in bed; bed is in lowest position, side rails up x3 and padded per protocol, safety wheels engaged and bed alarm activated. HOB elevated per protocol. Will continue to monitor.
--- NOTE | 2019-02-01 05:00 | Progress Note ---
DATE: 01/31/2019 SUBJECTIVE: The patient is afebrile. Hemodynamically stable, at rest tachycardia. PHYSICAL EXAMINATION: VITAL SIGNS: Blood pressure 129/74, pulse is 111, respirations are 24, and temperature 97.9. HEENT: Eyes were normal. ENT, mucous membranes were moist and intact. NECK: Supple with no JVD without lymph nodes. Tracheostomy site is clean. LUNGS: Clear without rhonchi, rales, or wheezing. Secretions are small, thin, and clayton. HEART: Normal sounds with regular beats. There are no S3, S4, or pericardial rub. ABDOMEN: Soft and nontender with normal bowel sounds. Gastrostomy site is clean. EXTREMITIES: Warm without cyanosis, clubbing, or edema. LABORATORY AND DIAGNOSTIC DATA: Hemoglobin is 10.9, hematocrit 30.3 with MCV of 99, WBC of 21.7, and platelets of 371,000. His BUN and creatinine were not done, the one from yesterday, BUN and creatinine are 22 and 0.5. Sodium is 144, potassium 3.9, chloride 118, CO2 is 15. Phosphorus is 2.3. Magnesium is 1.6. Imaging study with a CT scan rectal impaction over the distal sigmoid. BUN and creatinine . The patient will continue on meropenem and completion of days. Vanco p.o. will be given 500 mg q.i.d. Flagyl and vancomycin. The patient will be continued on vancomycin . Repeat laboratory tests will be done in the a.m. Boris Arevalo M.D. DR: Lilibeth JOB#: [id number] CC:
[2019-02-01] MEDS: Meropenem 1 GM in NS 55 ML IVPB SCH ×2 (05:28→17:28)
[2019-02-01 05:44] LABS: HEMATOCRIT 30.9 % (42.0-52.0); HEMOGLOBIN 10.2 G/DL (14.2-18.0); MEAN CORPUSCULAR VOLUME 90 FL (80-99); PLATELET COUNT 396 K/UL (150-450); RED BLOOD COUNT 3.43 M/UL (4.70-6.10); RED CELL DISTRIBUTION WIDTH 15.4 % (11.6-14.8)
[2019-02-01] MEDS ORDERED: Heparin1,000 units/500ml Premix(Conc:2 units/ml) IV SCH (05:45)
[2019-02-01] MEDS ORDERED: Lidocaine 1% Plain 30 ml INJ SCH (05:45)
[2019-02-01 05:53] LABS: WHITE BLOOD COUNT 28.6 K/UL (4.8-10.8)
[2019-02-01 06:15] LABS: ALANINE AMINOTRANSFERASE 34 U/L (12-78); ALBUMIN 1.1 G/DL (3.4-5.0); ALBUMIN/GLOBULIN RATIO 0.3 (1.0-2.7); ALKALINE PHOSPHATASE 287 U/L (46-116); ANION GAP 6 mmol/L (5-15); ASPARTATE AMINO TRANSFERASE 34 U/L (15-37); BILIRUBIN,TOTAL 0.3 MG/DL (0.2-1.0); BLOOD UREA NITROGEN 19 mg/dL (7-18); CALCIUM 6.6 MG/DL (8.5-10.1); CARBON DIOXIDE 21 MMOL/L (21-32); CHLORIDE 121 MMOL/L (98-107); CREATININE 0.5 MG/DL (0.55-1.30); PHOSPHORUS 2.1 MG/DL (2.5-4.9); POTASSIUM 3.2 MMOL/L (3.5-5.1); SODIUM 148 MMOL/L (136-145)
[2019-02-01] MEDS ORDERED: Lidocaine 1% Plain 30 ml INJ PRN (06:15)
[2019-02-01] MEDS ORDERED: Heparin1,000 units/500ml Premix(Conc:2 units/ml) IV PRN (06:15)
--- NOTE | 2019-02-01 07:15 | NUR ---
NURSE NOTES: RECEIVED BED SIDE REPORT FROM EILEEN MICA BUILDER OF NOC SHIFT. RECEIVED PT WITH HOB ELEVATED 45 DEGREE OBTUNDED TRACH TO VENT. PT TOLERATING WELL CURRENTS VENT SETTINGS AC-16, TV 500,FIO2 40% ,P-5 , O2 SAT 100%. RENDERED TRACH CARE AND ORAL HYGIENE ,SX,D LARGE AMT OF WHITE AND YELLOWISH SECRETIONS. PT WITH GTF RECEIVING VITAL AF 1.2 @ 55CC/HRS ,TOLERATING WELL ,NO RESIDUAL NOTED AT THIS TIME. PT WITH TLC CONNECTED ON RT IJ ,RECEIVING NS @ 100CC/HRS INFUSING WELL. PT REPOSITIONED AND MADE COMFORTABLE POSSIBLE.FULL BODY ASSESSMENT DONE.NO ACUTE DISTRESS NOTED AT THIS TIME. WILL CONT TO MONITOR.
--- NOTE | 2019-02-01 07:34 | NUR ---
HAND-OFF: Report given to GEOVANNA Khan. Pt observed lying in the bed. Pt is obtunded. No signs of pain noted when using FLACC scale to evaluate. Trac to vent, Portex 7, AC 16, TV 500, FIO2 40%, PEEP 5, saturating at 100%. GT intact and running Vital A.F 1.2 at 55cc/hr. No residual noted. Brooks catheter intact and draining to gravity; Dark yellow urine noted in collection bag. R IJ triple lumen central line noted, only 1 port, flushing, running NS at 100c/hr. Bed in the lowest position. Side rails up x3 and padded per protocol, bed alarm activated and safety wheels engaged, call light is within reach. Endorsed WBC 28.6 and K 3.2 to oncoming nurse.
[2019-02-01 08:00] VITALS: BP 133/69
[2019-02-01] MEDS: Tamsulosin 0.4mg cap ORAL SCH ×2 (10:19→17:28)
[2019-02-01] MEDS: Ascorbic Acid 500mg tab GT SCH (10:19)
--- NOTE | 2019-02-01 10:26 | NUR ---
RD ASSESSMENT & RECOMMENDATIONS SEE CARE ACTIVITY FOR COMPLETE ASSESSMENT DAILY ESTIMATED NEEDS: Needs based on Critical care, wound 68kg 22-30 kcals/kg 6337-9405 total kcals 1.25-2 g protein/kg 85-136 g total protein 25-30 mL/kg 8580-2108 total fluid mLs NUTRITION DIAGNOSIS: 1) Swallowing difficulty R/T respiratory status as evidenced by pt vent dep via trach, PEG dep, on TF. 2) Increased kcal/prot needs R/T wound healing as evidenced by pt admitted w/ multiple wounds, including full thickness wounds @ lt elbow and sacrum, refer to WC eval. CURRENT TF:Vital AF 1.2 @55ml x24 hrs ENTERAL NUTRITION RECOMMENDATIONS: Vital AF 1.2 @55ml x24 hrs to provide 1320ml, 1584kcal, 99g prot, 1071ml free H20 * Maintain current TF * HOB >30 degrees/ water flushes per MD ADDITIONAL RECOMMENDATIONS: 1) Maintain calibrated bed scale wts 2) Wound healing: add Darryl 1pkt BID *Rec to hold Vit C w/ continued diarrhea. 3) Add probiotics: stool c-diff +, diarrhea, on rectal tube 4) Consider long acting insulin for improved BG control: BGs 200's 5) Lytes daily, replete as needed (low K, phos) .
--- NOTE | 2019-02-01 10:33 | Pulmonolgy Critical Care Note ---
Critical Care - Asmt/Plan Problems: (1) Septic shock (2) HCAP (healthcare-associated pneumonia) (3) Chronic respiratory failure (4) Ventilator dependence (5) Vegetative state (6) HARDEEP (acute kidney injury) (7) History of CVA (cerebrovascular accident) (8) Feeding by G-tube (9) HTN (hypertension) (10) Cerebral vascular disease Respiratory: monitor respiratory rate, adjust FIO2, CXR Cardiac: continue pressors, continue to monitor HR/BP Renal: F/U I&O, check electrolytes Infectious Disease: check cultures, continue antibiotics Gastrointestinal: continue feedings/current rate, hold feedings Endocrine: monitor blood sugar Hematologic: monitor H/H, transfuse if hgb<8.5 Neurologic: keep patient comfortable Prophylaxis: Protonix Time Spent (Minutes): 40 Discussed with: nurses, consultants, bilingual case managertutoring manager - Objective Last 24 Hour Vital Signs Date Time Temp Pulse Resp B/P (MAP) Pulse Ox O2 Delivery O2 Flow Rate FiO2 02/01/19 08:54 91 24 40 02/01/19 08:00 Mechanical Ventilator 02/01/19 08:00 98.9 99 28 133/69 (90) 100 02/01/19 07:44 92 02/01/19 07:26 95 20 40 02/01/19 05:05 103 27 40 02/01/19 04:00 40 02/01/19 04:00 97.2 103 23 140/56 (84) 100 02/01/19 04:00 Mechanical Ventilator 02/01/19 03:38 107 02/01/19 02:55 104 26 40 02/01/19 02:02 109 29 100 Mechanical Ventilator 45.0 40 02/01/19 01:00 104 24 40 02/01/19 00:00 Mechanical Ventilator 02/01/19 00:00 97.7 105 24 127/74 (91) 100 01/31/19 23:31 105 01/31/19 22:36 107 26 40 01/31/19 21:05 109 26 40 01/31/19 20:00 105 01/31/19 20:00 Mechanical Ventilator 01/31/19 20:00 40 01/31/19 20:00 97.9 111 24 129/74 (92) 100 01/31/19 18:57 107 24 40 01/31/19 17:20 108 26 40 01/31/19 16:00 104 01/31/19 16:00 Mechanical Ventilator 01/31/19 16:00 97.4 105 24 110/64 (79) 99 01/31/19 16:00 40 01/31/19 15:20 107 26 40 01/31/19 13:03 109 26 40 01/31/19 12:00 40 01/31/19 12:00 97.7 110 25 111/71 (84) 99 01/31/19 12:00 103 01/31/19 12:00 Mechanical Ventilator 01/31/19 11:02 104 24 40 Status: awake Condition: grave HEENT: atraumatic Lungs: chest wall tender Heart: HR/BP stable Abdomen: soft, active bowel sounds Extremities: no C/C/E, edema Accucheck: 202 Critical Care - Subjective ROS Limited/Unobtainable: Yes Condition: critical EKG Rhythm: Sinus Rhythm FI02: 40 Vent Support Breath Rate: 16 Vent Support Mode: AC Vent Tidal Volume: 500 Sputum Amount: Scant PEEP: 5.0 PIP: 18 Tube Feeding Amount: 55 I&O: Intake and Output 01/31/19 02/01/19 19:00 07:00 Intake Total 1545 ml 2366.626 ml Output Total 800 ml 450 ml Balance 745 ml 1916.626 ml Free Water 150 ml 100 ml IV Total 900 ml 1606.626 ml Tube Feeding 495 ml 660 ml Output Urine Total 800 ml 450 ml # Bowel Movements 1 3 Labs: Laboratory Tests Test 02/01/19 05:30 White Blood Count 28.6 K/UL (4.8-10.8) *H Red Blood Count 3.43 M/UL (4.70-6.10) L Hemoglobin 10.2 G/DL (14.2-18.0) L Hematocrit 30.9 % (42.0-52.0) L Mean Corpuscular Volume 90 FL (80-99) Mean Corpuscular Hemoglobin 29.8 PG (27.0-31.0) Mean Corpuscular Hemoglobin Concent 33.0 G/DL (32.0-36.0) Red Cell Distribution Width 15.4 % (11.6-14.8) H Platelet Count 396 K/UL (150-450) Mean Platelet Volume 7.1 FL (6.5-10.1) Neutrophils (%) (Auto) % (45.0-75.0) Lymphocytes (%) (Auto) % (20.0-45.0) Monocytes (%) (Auto) % (1.0-10.0) Eosinophils (%) (Auto) % (0.0-3.0) Basophils (%) (Auto) % (0.0-2.0) Differential Total Cells Counted 100 Neutrophils % (Manual) 81 % (45-75) H Lymphocytes % (Manual) 9 % (20-45) L Monocytes % (Manual) 5 % (1-10) Eosinophils % (Manual) 5 % (0-3) H Basophils % (Manual) 0 % (0-2) Band Neutrophils 0 % (0-8) Platelet Estimate Adequate Platelet Morphology Normal Anisocytosis 1+ Sodium Level 148 MMOL/L (136-145) H Potassium Level 3.2 MMOL/L (3.5-5.1) L Chloride Level 121 MMOL/L (98-107) H Carbon Dioxide Level 21 MMOL/L (21-32) Anion Gap 6 mmol/L (5-15) Blood Urea Nitrogen 19 mg/dL (7-18) H Creatinine 0.5 MG/DL (0.55-1.30) L Estimat Glomerular Filtration Rate > 60 mL/min (>60) Glucose Level 236 MG/DL (74-106) H Calcium Level 6.6 MG/DL (8.5-10.1) L Phosphorus Level 2.1 MG/DL (2.5-4.9) L Magnesium Level 1.9 MG/DL (1.8-2.4) Total Bilirubin 0.3 MG/DL (0.2-1.0) Aspartate Amino Transf (AST/SGOT) 34 U/L (15-37) Alanine Aminotransferase (ALT/SGPT) 34 U/L (12-78) Alkaline Phosphatase 287 U/L (46-116) H Total Protein 4.8 G/DL (6.4-8.2) L Albumin 1.1 G/DL (3.4-5.0) L Globulin 3.7 g/dL Albumin/Globulin Ratio 0.3 (1.0-2.7) L Sagar Rudd MD Feb 01, 2019 10:33
--- NOTE | 2019-02-01 10:38 | General Progress Note ---
Assessment/Plan Status: unchanged Assessment/Plan: (1) Clostridium difficile diarrhea ICD Codes: A04.72 - Enterocolitis due to Clostridium difficile, not specified as recurrent SNOMED: 7896633308464 (2) Severe sepsis ICD Codes: A41.9 - Sepsis, unspecified organism; R65.20 - Severe sepsis without septic shock SNOMED: 02521519 (3) Feeding by G-tube ICD Codes: Z93.1 - Feeding by G-tube SNOMED: 062821298 (4) Diarrhea ICD Codes: R19.7 - Diarrhea, unspecified SNOMED: 24882998 (5) Upper GI bleed ICD Codes: K92.2 - Gastrointestinal hemorrhage, unspecified SNOMED: 86132847 Assessment/Plan No plans for GI procedures at this time given sepsis. Monitor H&H, PRN transfusions Occult blood to rule out any GI bleed Hold PPI given C. difficile H2B Antibiotics per infectious diseases for C. difficile IV hydration plus electrolyte correction GTF Follow labs recent CT reviewed warner change vanco to deficit Subjective ROS Limited/Unobtainable: No Allergies: Coded Allergies: OXYTETRACYCLINE (Unverified Allergy, Unknown, 09/05/13) PENICILLINS (Unverified Allergy, Unknown, 06/11/17) Tolerated one dose of Cefepime 06/07/17 Tolerated Cefdinir 06/10/17 Uncoded Allergies: PLASTIC TAPE (Allergy, Mild, ITCHINESS, 08/08/15) MEDICAL TAPE (Allergy, Unknown, 12/10/16) Objective Last 24 Hour Vital Signs Date Time Temp Pulse Resp B/P (MAP) Pulse Ox O2 Delivery O2 Flow Rate FiO2 02/01/19 08:54 91 24 40 02/01/19 08:00 Mechanical Ventilator 02/01/19 08:00 98.9 99 28 133/69 (90) 100 02/01/19 07:44 92 02/01/19 07:26 95 20 40 02/01/19 05:05 103 27 40 02/01/19 04:00 40 02/01/19 04:00 97.2 103 23 140/56 (84) 100 02/01/19 04:00 Mechanical Ventilator 02/01/19 03:38 107 02/01/19 02:55 104 26 40 02/01/19 02:02 109 29 100 Mechanical Ventilator 45.0 40 02/01/19 01:00 104 24 40 11/12/19 00:00 Mechanical Ventilator 02/01/19 00:00 97.7 105 24 127/74 (91) 100 01/31/19 23:31 105 01/31/19 22:36 107 26 40 01/31/19 21:05 109 26 40 01/31/19 20:00 105 01/31/19 20:00 Mechanical Ventilator 01/31/19 20:00 40 01/31/19 20:00 97.9 111 24 129/74 (92) 100 01/31/19 18:57 107 24 40 01/31/19 17:20 108 26 40 01/31/19 16:00 104 01/31/19 16:00 Mechanical Ventilator 01/31/19 16:00 97.4 105 24 110/64 (79) 99 01/31/19 16:00 40 01/31/19 15:20 107 26 40 01/31/19 13:03 109 26 40 01/31/19 12:00 40 01/31/19 12:00 97.7 110 25 111/71 (84) 99 01/31/19 12:00 103 01/31/19 12:00 Mechanical Ventilator 01/31/19 11:02 104 24 40 Intake and Output 01/31/19 02/01/19 19:00 07:00 Intake Total 1545 ml 2366.626 ml Output Total 800 ml 450 ml Balance 745 ml 1916.626 ml Free Water 150 ml 100 ml IV Total 900 ml 1606.626 ml Tube Feeding 495 ml 660 ml Output Urine Total 800 ml 450 ml # Bowel Movements 1 3 Laboratory Tests 02/01/19 05:30: White Blood Count 28.6*H, Red Blood Count 3.43L, Hemoglobin 10.2L, Hematocrit 30.9L, Mean Corpuscular Volume 90, Mean Corpuscular Hemoglobin 29.8, Mean Corpuscular Hemoglobin Concent 33.0, Red Cell Distribution Width 15.4H, Platelet Count 396, Mean Platelet Volume 7.1, Neutrophils (%) (Auto) , Lymphocytes (%) (Auto) , Monocytes (%) (Auto) , Eosinophils (%) (Auto) , Basophils (%) (Auto) , Differential Total Cells Counted 100, Neutrophils % ( Manual) 81H, Lymphocytes % (Manual) 9L, Monocytes % (Manual) 5, Eosinophils % ( Manual) 5H, Basophils % (Manual) 0, Band Neutrophils 0, Platelet Estimate Adequate, Platelet Morphology Normal, Anisocytosis 1+, Sodium Level 148H, Potassium Level 3.2L, Chloride Level 121H, Carbon Dioxide Level 21, Anion Gap 6 , Blood Urea Nitrogen 19H, Creatinine 0.5L, Estimat Glomerular Filtration Rate > 60, Glucose Level 236H, Calcium Level 6.6L, Phosphorus Level 2.1L, Magnesium Level 1.9, Total Bilirubin 0.3, Aspartate Amino Transf (AST/SGOT) 34, Alanine Aminotransferase (ALT/SGPT) 34, Alkaline Phosphatase 287H, Total Protein 4.8L, Albumin 1.1L, Globulin 3.7, Albumin/Globulin Ratio 0.3L Height (Feet): 5 Height (Inches): 6.00 Weight (Pounds): 209 General Appearance: no apparent distress EENT: normal ENT inspection Neck: supple Cardiovascular: normal rate Respiratory/Chest: decreased breath sounds Abdomen: normal bowel sounds, non tender, soft Extremities: non-tender Gaurav Rosas MD Feb 01, 2019 10:38
[2019-02-01] MEDS ORDERED: Potassium Phosphate 30 MM in NS 275 ML IV ONE (11:00)
--- NOTE | 2019-02-01 11:43 | NUR ---
*-* INSURANCE *-* UPDATED CLINICALS AND REVIEWS HAVE BEEN FAXED TO: Tanya Hyman CM or Ref# Yet #[phone]
[2019-02-01 12:00] VITALS: BP 119/65
--- NOTE | 2019-02-01 12:03 | NUR ---
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 98.9 HR 103 RR 28 B/P 133/69 AC 16 TV 500 FIO2 405 PEEP 5 WBC 28.6 NA 148 K 3.2 ALK PHOS 287 IS: K-PHOS IV VANCO IV IVF NS @ 100ML/HR MEROPENEM IV DIFICID GT STEP DON STATUS
--- NOTE | 2019-02-01 13:23 | Urology Progress Note ---
Assessment/Plan Status: unchanged Assessment/Plan: 1. Sepsis. 2. Incontinence. 3. Neurogenic bladder. 4. Proteinuria. 5. Hematuria. 6. Pyuria. 7. History of nephrolithiasis. 8. Urethral stricture. maintain hernández, do not remove switch to larger size hernández at some point hand irrigated and do PRN abx as ordered, ID on case Subjective Allergies: Coded Allergies: OXYTETRACYCLINE (Unverified Allergy, Unknown, 09/05/13) PENICILLINS (Unverified Allergy, Unknown, 06/11/17) Tolerated one dose of Cefepime 06/07/17 Tolerated Cefdinir 06/10/17 Uncoded Allergies: PLASTIC TAPE (Allergy, Mild, ITCHINESS, 08/08/15) MEDICAL TAPE (Allergy, Unknown, 12/10/16) Subjective all noted Objective Last 24 Hour Vital Signs Date Time Temp Pulse Resp B/P (MAP) Pulse Ox O2 Delivery O2 Flow Rate FiO2 02/01/19 11:48 93 02/01/19 11:04 85 21 40 02/01/19 08:54 91 24 40 02/01/19 08:00 Mechanical Ventilator 02/01/19 08:00 40 02/01/19 08:00 98.9 99 28 133/69 (90) 100 02/01/19 07:44 92 02/01/19 07:26 95 20 40 02/01/19 05:05 103 27 40 02/01/19 04:00 40 02/01/19 04:00 97.2 103 23 140/56 (84) 100 02/01/19 04:00 Mechanical Ventilator 02/01/19 03:38 107 02/01/19 02:55 104 26 40 02/01/19 02:02 109 29 100 Mechanical Ventilator 45.0 40 02/01/19 01:00 104 24 40 02/01/19 00:00 Mechanical Ventilator 02/01/19 00:00 97.7 105 24 127/74 (91) 100 01/31/19 23:31 105 01/31/19 22:36 107 26 40 01/31/19 21:05 109 26 40 01/31/19 20:00 105 01/31/19 20:00 Mechanical Ventilator 01/31/19 20:00 40 01/31/19 20:00 97.9 111 24 129/74 (92) 100 01/31/19 18:57 107 24 40 01/31/19 17:20 108 26 40 01/31/19 16:00 104 01/31/19 16:00 Mechanical Ventilator 01/31/19 16:00 97.4 105 24 110/64 (79) 99 01/31/19 16:00 40 01/31/19 15:20 107 26 40 Intake and Output 01/31/19 02/01/19 19:00 07:00 Intake Total 1545 ml 2366.626 ml Output Total 800 ml 450 ml Balance 745 ml 1916.626 ml Free Water 150 ml 100 ml IV Total 900 ml 1606.626 ml Tube Feeding 495 ml 660 ml Output Urine Total 800 ml 450 ml # Bowel Movements 1 3 Microbiology Date/Time Source Procedure Growth Status 01/24/19 17:30 Blood Blood Culture - Final NO GROWTH AFTER 5 DAYS Complete 01/22/19 02:10 Nasal Nares MRSA Culture - Final NO METHICILLIN RESISTANT STAPH AUREUS... Complete 01/22/19 17:23 Stool Clostridium difficile Toxin Assay - Final Complete 01/22/19 04:45 Urine,Clean Catch Urine Culture - Final Enterococcus Faecalis - Vre Complete 01/22/19 02:10 Rectum - Final Escherichia Coli - Cre Complete Current Medications Medications (Trade) Dose Ordered Sig/Sima Route PRN Reason Start Time Stop Time Status Last Admin Dose Admin Acetaminophen (Tylenol) 650 mg Q4H PRN GT Mild Pain/Temp > 100.5 01/24/19 15:28 02/23/19 15:27 01/31/19 20:31 Acetaminophen/ Hydrocodone Bitart ([place] 10/325) 1 tab Q4H PRN GT For Pain 01/31/19 22:30 02/07/19 22:29 Ascorbic Acid (Vitamin C) 250 mg DAILY GT 01/25/19 09:00 02/24/19 08:59 02/01/19 10:19 Chlorhexidine Gluconate (Paulina-Hex 2%) 1 applic DAILY@1999 TOPIC 02/01/19 20:00 03/03/19 19:59 Dextrose (Dextrose 50%) 25 ml Q30M PRN IV Hypoglycemia 01/24/19 15:30 02/21/19 06:29 Dextrose (Dextrose 50%) 50 ml Q30M PRN IV Hypoglycemia 01/24/19 15:30 02/21/19 06:29 Famotidine (Pepcid I.v.) 20 mg Q12HR IVP 01/24/19 21:00 02/23/19 20:59 02/01/19 10:19 Fidaxomicin (Dificid) 200 mg EVERY 12 HOURS ORAL 02/01/19 12:00 02/10/19 21:01 Heparin Sodium/ Sodium Chloride (Heparin 1000 units/500ml Premix) 1,000 unit ONCE PRN IV PICC PLACEMENT 02/01/19 06:15 02/02/19 23:59 Insulin Aspart (NovoLOG) Q6HR SUBQ 01/26/19 12:00 02/21/19 07:29 02/01/19 12:38 Lidocaine HCl (Xylocaine 1% 30ml) 30 ml ONCE PRN INJ PICC PLACEMENT 02/01/19 06:15 02/02/19 23:59 Lorazepam (Ativan 2mg/ml 1ml) 2 mg Q4H PRN IV For Anxiety 01/29/19 14:30 02/05/19 14:29 01/29/19 14:38 Meropenem 1 gm/ Sodium Chloride 55 ml @ 110 mls/hr Q12H IVPB 01/24/19 17:00 02/03/19 23:59 02/01/19 05:28 Midodrine (Pro-Amatine) 2.5 mg THREE TIMES A DAY GT 01/24/19 18:00 02/21/19 12:59 02/01/19 10:20 Morphine Sulfate (Morphine Sulfate) 4 mg Q6H PRN IVP Severe Pain (Pain Scale 7-10) 01/26/19 16:45 02/02/19 16:44 Potassium Phosphate 30 mm/ Sodium Chloride 285 ml @ 47.5 mls/hr ONCE ONCE IV 02/01/19 11:00 02/01/19 16:59 02/01/19 11:15 Sodium Chloride 1,000 ml @ 100 mls/hr Q10H IV 01/26/19 17:00 02/25/19 16:59 02/01/19 03:46 Tamsulosin HCl (Flomax) 0.4 mg BID ORAL 01/24/19 18:00 02/21/19 09:59 02/01/19 10:19 Vancomycin HCl (Vanco rx to dose) 1 ea DAILY PRN MISC Per rx protocol 01/29/19 15:30 02/28/19 15:29 Vancomycin/Sodium Chloride 275 ml @ 183.333 mls/hr Q12H IVPB 01/29/19 16:30 02/05/19 23:59 02/01/19 03:47 Laboratory Tests 02/01/19 05:30: White Blood Count 28.6*H, Red Blood Count 3.43L, Hemoglobin 10.2L, Hematocrit 30.9L, Mean Corpuscular Volume 90, Mean Corpuscular Hemoglobin 29.8, Mean Corpuscular Hemoglobin Concent 33.0, Red Cell Distribution Width 15.4H, Platelet Count 396, Mean Platelet Volume 7.1, Neutrophils (%) (Auto) , Lymphocytes (%) (Auto) , Monocytes (%) (Auto) , Eosinophils (%) (Auto) , Basophils (%) (Auto) , Differential Total Cells Counted 100, Neutrophils % ( Manual) 81H, Lymphocytes % (Manual) 9L, Monocytes % (Manual) 5, Eosinophils % ( Manual) 5H, Basophils % (Manual) 0, Band Neutrophils 0, Platelet Estimate Adequate, Platelet Morphology Normal, Anisocytosis 1+, Sodium Level 148H, Potassium Level 3.2L, Chloride Level 121H, Carbon Dioxide Level 21, Anion Gap 6 , Blood Urea Nitrogen 19H, Creatinine 0.5L, Estimat Glomerular Filtration Rate > 60, Glucose Level 236H, Calcium Level 6.6L, Phosphorus Level 2.1L, Magnesium Level 1.9, Total Bilirubin 0.3, Aspartate Amino Transf (AST/SGOT) 34, Alanine Aminotransferase (ALT/SGPT) 34, Alkaline Phosphatase 287H, Total Protein 4.8L, Albumin 1.1L, Globulin 3.7, Albumin/Globulin Ratio 0.3L Height (Feet): 5 Height (Inches): 6.00 Weight (Pounds): 209 Objective exam stable hernández indwelling, urine yellow/abhay no active bleeding at meatus renal u/s (01/23) noted pelvic CT (01/28) noted Jake Pierre MD Feb 01, 2019 13:23
--- NOTE | 2019-02-01 14:29 | Surgery Progress Note ---
Surgery Progress Note Subjective Additional Comments wbc 28k today exam stable loose stool still with abd/ext rash stable Objective Last 24 Hour Vital Signs Date Time Temp Pulse Resp B/P (MAP) Pulse Ox O2 Delivery O2 Flow Rate FiO2 02/01/19 13:22 94 18 40 02/01/19 11:48 93 02/01/19 11:04 85 21 40 02/01/19 08:54 91 24 40 02/01/19 08:00 Mechanical Ventilator 02/01/19 08:00 40 02/01/19 08:00 98.9 99 28 133/69 (90) 100 02/01/19 07:44 92 02/01/19 07:26 95 20 40 02/01/19 05:05 103 27 40 02/01/19 04:00 40 02/01/19 04:00 97.2 103 23 140/56 (84) 100 02/01/19 04:00 Mechanical Ventilator 02/01/19 03:38 107 02/01/19 02:55 104 26 40 02/01/19 02:02 109 29 100 Mechanical Ventilator 45.0 40 02/01/19 01:00 104 24 40 02/01/19 00:00 Mechanical Ventilator 02/01/19 00:00 97.7 105 24 127/74 (91) 100 01/31/19 23:31 105 01/31/19 22:36 107 26 40 01/31/19 21:05 109 26 40 01/31/19 20:00 105 01/31/19 20:00 Mechanical Ventilator 01/31/19 20:00 40 01/31/19 20:00 97.9 111 24 129/74 (92) 100 01/31/19 18:57 107 24 40 01/31/19 17:20 108 26 40 01/31/19 16:00 104 01/31/19 16:00 Mechanical Ventilator 01/31/19 16:00 97.4 105 24 110/64 (79) 99 01/31/19 16:00 40 01/31/19 15:20 107 26 40 I&O Intake and Output 01/31/19 02/01/19 19:00 07:00 Intake Total 1545 ml 2366.626 ml Output Total 800 ml 450 ml Balance 745 ml 1916.626 ml Free Water 150 ml 100 ml IV Total 900 ml 1606.626 ml Tube Feeding 495 ml 660 ml Output Urine Total 800 ml 450 ml # Bowel Movements 1 3 Dressing: saturated Wound: other Drains: other Cardiovascular: RSR Respiratory: decreased breath sounds Abdomen: soft, present bowel sounds, non-distended Extremities: no cyanosis Laboratory Tests Test 02/01/19 05:30 White Blood Count 28.6 K/UL (4.8-10.8) *H Red Blood Count 3.43 M/UL (4.70-6.10) L Hemoglobin 10.2 G/DL (14.2-18.0) L Hematocrit 30.9 % (42.0-52.0) L Mean Corpuscular Volume 90 FL (80-99) Mean Corpuscular Hemoglobin 29.8 PG (27.0-31.0) Mean Corpuscular Hemoglobin Concent 33.0 G/DL (32.0-36.0) Red Cell Distribution Width 15.4 % (11.6-14.8) H Platelet Count 396 K/UL (150-450) Mean Platelet Volume 7.1 FL (6.5-10.1) Neutrophils (%) (Auto) % (45.0-75.0) Lymphocytes (%) (Auto) % (20.0-45.0) Monocytes (%) (Auto) % (1.0-10.0) Eosinophils (%) (Auto) % (0.0-3.0) Basophils (%) (Auto) % (0.0-2.0) Differential Total Cells Counted 100 Neutrophils % (Manual) 81 % (45-75) H Lymphocytes % (Manual) 9 % (20-45) L Monocytes % (Manual) 5 % (1-10) Eosinophils % (Manual) 5 % (0-3) H Basophils % (Manual) 0 % (0-2) Band Neutrophils 0 % (0-8) Platelet Estimate Adequate Platelet Morphology Normal Anisocytosis 1+ Sodium Level 148 MMOL/L (136-145) H Potassium Level 3.2 MMOL/L (3.5-5.1) L Chloride Level 121 MMOL/L (98-107) H Carbon Dioxide Level 21 MMOL/L (21-32) Anion Gap 6 mmol/L (5-15) Blood Urea Nitrogen 19 mg/dL (7-18) H Creatinine 0.5 MG/DL (0.55-1.30) L Estimat Glomerular Filtration Rate > 60 mL/min (>60) Glucose Level 236 MG/DL (74-106) H Calcium Level 6.6 MG/DL (8.5-10.1) L Phosphorus Level 2.1 MG/DL (2.5-4.9) L Magnesium Level 1.9 MG/DL (1.8-2.4) Total Bilirubin 0.3 MG/DL (0.2-1.0) Aspartate Amino Transf (AST/SGOT) 34 U/L (15-37) Alanine Aminotransferase (ALT/SGPT) 34 U/L (12-78) Alkaline Phosphatase 287 U/L (46-116) H Total Protein 4.8 G/DL (6.4-8.2) L Albumin 1.1 G/DL (3.4-5.0) L Globulin 3.7 g/dL Albumin/Globulin Ratio 0.3 (1.0-2.7) L Plan Problems: (1) Decubitus skin ulcer Assessment & Plan: Pt presented on admission with contractures, multiple pressure injuries .Pt noted to have 3 pressure injuries L elbow. Laterally L elbow -Full thickness pressure injury with 40% slough at base of wound,60% beefy red. Small amt sanguineous exudate noted(L)1.4cm x (W)2.1cm. Pressure injury L elbow (proximal) (L)0.5cm x (W)1cm . Scattered biofilm at base of wound , borders are macerated.(Inferior) (L)0.4cm x (W)0.5cm . Base of wound moist with Biofilm. Small amt serous exudate noted. (L)0.4cm x (W)0.5cm. Full thickness sacral pressure injury. Base of wound is pink- moist with scattered biofilm,(+) maceration along borders. Non-blanching erythema without induration periwound (L)11.2cm x (W)4.5cm x (D)0.4cm. Two additional pressure injuries noted to L and R sacrum. Partial thickness L sacral pressure injury. Base of wound is moist and viable. Edges are macerated with surrounding non-blanching erythema without induration or elevation in skin temp.(L)0.9cm x (W)1.3cm.R sacral partial thickness pressure injury. Base of wound is moist and viable. Edges flat and adherent to base of wound. Non- blanching erythema without induration or elevation in skin temp.(L)2cm x (W) 1.5cm. Partial thickness pressure injury to outer R buttocks. base of wound moist and viable. Edges flat and adherent to base of wound. Non-blanching erythema periwound.(L)2.3cm x (W)2.5cm. Partial thickness pressure injury inferior but in close proximity R buttocks (L) 2cm x (W)2cm . Base of wound is moist and viable. Surrounding non-blanching erythema without induration. Erythematous and indurated area noted to L groin. No elevation in skin temp noted. Scrotal sac is also erythematous. Non-blanching erythema with fluctuance R hallux. (L)1.6cm x (W)1.7cm. Pressure injury dorsal R foot . Base of wound moist with small amt of Biofilm.(+ ) maceration along borders.(L)1.5cm x (W)1.7cm. R 1st metatarsal necrotic with soft center with slough . Small amt seropurulent exudate noted. Marginal erythema along borders. (L)1.5cm x (W)1.5cm. Non-blanching erythema without induration or fluctuance lateral malleolus(L) 2.5cm x (W)2.5cm. L heel is boggy with non-blanching erythema. R heel is boggy but pink and easily blanchable. apply Benadryl cream to abd / ext rash Tx.plan: Cleanse Sacral wound with Saline. Apply Therahoney. Apply Triad Paste periwound. Cover with Optifoam drsg. Change every 3 days and prn. Apply Triad paste to pressure injuries R and L sacrum and R outer Buttocks. Cover wounds with Optifoam drsg. Change every 3 days and prn. Apply Triad paste to groin and scrotum with each incontinence care. Cleanse wounds L elbow with saline. Apply Therahoney to wounds. Cover with Optifoam drsg. Change every 3 days and prn. Apply Betadine to wounds dorsal R foot and R 1st metatarsal . Cover with Optifoam drsg. Change daily and prn. Apply Cavilon to R hallux, R and L malleoli and both heels. Cover each site with Optifoam drsgs. Change every 7 days and prn. APM/RENETTA Mattress overlay. Reposition at least every 2hours or as tolerated. Off-load heels with Pillow. Place pillow between knees. (2) Septic shock Assessment & Plan: Leukocytosis - improved Lactic acidosis resolved off pressors on IV fluids tube feeds needs nutritional supplementation Rx as written cont current care and management will follow with recs c diff CT reviewed - No evidence of abscess or CT evidence for acute osteomyelitis/ erosion of the coccyx/sacrum in the area of the clinically demonstrated decubitus ulceration/ wound. The wound itself is not well seen on CT. Severe proctocolitis with wall thickening and inflammation as well as luminal distention due to fecal impaction. Rectal tube noted in place. abx as per ID thank you (3) Feeding by G-tube Assessment & Plan: DAILY ESTIMATED NEEDS: Needs based on Critical care, wound 68kg 22-30 kcals/kg 2860-3364 total kcals 1.25-2 g protein/kg 85-136 g total protein 25-30 mL/kg 5642-7073 total fluid mLs NUTRITION DIAGNOSIS: 1) Swallowing difficulty R/T respiratory status as evidenced by pt vent dep via trach, PEG dep, on TF. 2) Increased kcal/prot needs R/T wound healing as evidenced by pt admitted w/ multiple wounds, including open sacral wound, eval pending. ENTERAL NUTRITION RECOMMENDATIONS: Vital AF 1.2 @55ml x24 hrs to provide 1320ml, 1584kcal, 99g prot, 1071ml free H20 * As medically appropriate w/ hemodynamic stability, rec elemental formula of Vital for GI tolerance. * Initiate VITAL 1.2 @ 15ml/hr x 6 hrs, advance 10ml q 4-6 hrs as tolerated to goal rate. * HOB >30 degrees/ water flushes per MD ADDITIONAL RECOMMENDATIONS: 1) Maintain calibrated bed scale wts 2) Wound healing: add Darryl 1pkt BID w/ TF order Add Vit C 250mg daily (f/up w/ WC eval) 3) F/up w/ H&P 4) Lytes daily, replete as needed (4) Vegetative state Benyamini,Jimmy Feb 01, 2019 14:29
--- NOTE | 2019-02-01 14:45 | Nephrology Progress Note ---
Assessment/Plan Problem List: (1) Hypokalemia (2) HARDEEP (acute kidney injury) (3) Sepsis (4) Hyponatremia Assessment HARDEEP (acute kidney injury) HypoNatremia Septic shock Others: HCAP (healthcare-associated pneumonia) Chronic respiratory failure Ventilator dependence Vegetative state History of CVA (cerebrovascular accident) Feeding by G-tube HTN (hypertension) Cerebral vascular disease Plan K Phos mag as needed Hydrate monitor renal parameters Midodrine Antibiotics Avoid nephrotoxics Brooks could not be put in due to resistance start flomax per order Subjective ROS Limited/Unobtainable: Yes Objective Objective Last 24 Hour Vital Signs Date Time Temp Pulse Resp B/P (MAP) Pulse Ox O2 Delivery O2 Flow Rate FiO2 02/01/19 13:22 94 18 40 02/01/19 11:48 93 02/01/19 11:04 85 21 40 02/01/19 08:54 91 24 40 02/01/19 08:00 Mechanical Ventilator 02/01/19 08:00 40 02/01/19 08:00 98.9 99 28 133/69 (90) 100 02/01/19 07:44 92 02/01/19 07:26 95 20 40 02/01/19 05:05 103 27 40 02/01/19 04:00 40 02/01/19 04:00 97.2 103 23 140/56 (84) 100 02/01/19 04:00 Mechanical Ventilator 02/01/19 03:38 107 02/01/19 02:55 104 26 40 02/01/19 02:02 109 29 100 Mechanical Ventilator 45.0 40 02/01/19 01:00 104 24 40 02/01/19 00:00 Mechanical Ventilator 02/01/19 00:00 97.7 105 24 127/74 (91) 100 01/31/19 23:31 105 01/31/19 22:36 107 26 40 01/31/19 21:05 109 26 40 01/31/19 20:00 105 01/31/19 20:00 Mechanical Ventilator 01/31/19 20:00 40 01/31/19 20:00 97.9 111 24 129/74 (92) 100 01/31/19 18:57 107 24 40 01/31/19 17:20 108 26 40 01/31/19 16:00 104 01/31/19 16:00 Mechanical Ventilator 01/31/19 16:00 97.4 105 24 110/64 (79) 99 01/31/19 16:00 40 01/31/19 15:20 107 26 40 Intake and Output 01/31/19 02/01/19 19:00 07:00 Intake Total 1545 ml 2366.626 ml Output Total 800 ml 450 ml Balance 745 ml 1916.626 ml Free Water 150 ml 100 ml IV Total 900 ml 1606.626 ml Tube Feeding 495 ml 660 ml Output Urine Total 800 ml 450 ml # Bowel Movements 1 3 Laboratory Tests 02/01/19 05:30: White Blood Count 28.6*H, Red Blood Count 3.43L, Hemoglobin 10.2L, Hematocrit 30.9L, Mean Corpuscular Volume 90, Mean Corpuscular Hemoglobin 29.8, Mean Corpuscular Hemoglobin Concent 33.0, Red Cell Distribution Width 15.4H, Platelet Count 396, Mean Platelet Volume 7.1, Neutrophils (%) (Auto) , Lymphocytes (%) (Auto) , Monocytes (%) (Auto) , Eosinophils (%) (Auto) , Basophils (%) (Auto) , Differential Total Cells Counted 100, Neutrophils % ( Manual) 81H, Lymphocytes % (Manual) 9L, Monocytes % (Manual) 5, Eosinophils % ( Manual) 5H, Basophils % (Manual) 0, Band Neutrophils 0, Platelet Estimate Adequate, Platelet Morphology Normal, Anisocytosis 1+, Sodium Level 148H, Potassium Level 3.2L, Chloride Level 121H, Carbon Dioxide Level 21, Anion Gap 6 , Blood Urea Nitrogen 19H, Creatinine 0.5L, Estimat Glomerular Filtration Rate > 60, Glucose Level 236H, Calcium Level 6.6L, Phosphorus Level 2.1L, Magnesium Level 1.9, Total Bilirubin 0.3, Aspartate Amino Transf (AST/SGOT) 34, Alanine Aminotransferase (ALT/SGPT) 34, Alkaline Phosphatase 287H, Total Protein 4.8L, Albumin 1.1L, Globulin 3.7, Albumin/Globulin Ratio 0.3L Height (Feet): 5 Height (Inches): 6.00 Weight (Pounds): 209 General Appearance: no apparent distress, lethargic Objective no change Sergey Rivera MD Feb 01, 2019 14:45
[2019-02-01] MEDS ORDERED: DiphenhydrAMINE & Zinc 28g Cream TOPIC PRN (15:00)
--- NOTE | 2019-02-01 15:00 | NUR ---
NURSE NOTES: DR GATES CAME TO SEE THE PT AND MADE AWARE AND NOTIFIED REGARDING PT HAS RASHES ON ABD ,PERINEAL AREA ,BILAT THIGH AND MID AND LOWER BACK .Iglesia ASSESSED THE PT BODY. Iglesia STATED " I WILL ORDER BENADRYL CREAM TO APPLIED ON AFFECTED AREAS ". WILL CONT TO MONITOR.
--- NOTE | 2019-02-01 15:16 | Infectious Diseases Prog Note ---
Assessment/Plan Assessment/Plan 63 yo male who was sent to the ED on 01/21/19 for hypotension, fever and respiratory distress. Fever, SP Leukocytosis, fluctuating Gram negative Sepsis 01/22 BCx: ESBL K pneumoniae, GBS, MRSA 01/22 CXR: bilateral opacities 01/22 UA positive. UCx VRE 01/23 CXR: Redemonstration of bibasilar patchy airspace opacities. Unchanged pulmonary vascular congestion. No pneumothorax. Stable small left pleural effusion. 01/24 Bcx: ngtd TTE negative 01/22 C diff positive 01/26 KUB: Nonspecific bowel gas pattern. Gastrostomy. No definite acute process 01/27 CT Pelvis: Severe proctocolitis with wall thicken in and inflammation as well as luminal distention due to fecal impaction. Rectal tube noted in place. Decubitus ulcer 01/27 CT Pelvis: No evidence of abscess or CT evidence for acute osteomyelitis /erosion of the coccyx/sacrum in the area of the clinically demonstrated decubitus ulceration/wound. The wound itself is not well seen on CT. Rash eosinophils on peripheral CBC VRE colonization DM COPD CVA Dementia Parkinsons Cardiac issues Vent dependent with trach G tube PLAN: - continue meropenem #02/03 - fidaxomicin #/ - Vancomycin IV #06/28 - 02/01 DC vanc po to 500mg #5 - SP vanc po 125mg #4 - 02/01 DC Flagyl IV #7 - 01/28 SP Daptomycin #5 - 01/24 DC vancomycin IV #2 - f/u cultures - repeat bcx - Monitor CBC and Temps if leukocytosis not improve, will consider HUONG given poor TTE quality and pt with MRSA bacteremia Thank you for this consult. [facility] will continue to follow the patient with you during this hospitalization. Subjective Allergies: Coded Allergies: OXYTETRACYCLINE (Unverified Allergy, Unknown, 09/05/13) PENICILLINS (Unverified Allergy, Unknown, 06/11/17) Tolerated one dose of Cefepime 06/07/17 Tolerated Cefdinir 06/10/17 Uncoded Allergies: PLASTIC TAPE (Allergy, Mild, ITCHINESS, 08/08/15) MEDICAL TAPE (Allergy, Unknown, 12/10/16) Subjective Afebrile. Tachycardia better. FiO2 40%. Leukocytosis worse still with loose stool Objective Vital Signs Last 24 Hour Vital Signs Date Time Temp Pulse Resp B/P (MAP) Pulse Ox O2 Delivery O2 Flow Rate FiO2 02/01/19 14:40 92 28 40 02/01/19 13:22 94 18 40 02/01/19 12:00 98.6 94 24 119/65 (83) 100 02/01/19 12:00 Mechanical Ventilator 02/01/19 12:00 40 02/01/19 11:48 93 02/01/19 11:04 85 21 40 02/01/19 08:54 91 24 40 02/01/19 08:00 Mechanical Ventilator 02/01/19 08:00 40 02/01/19 08:00 98.9 99 28 133/69 (90) 100 02/01/19 07:44 92 02/01/19 07:26 95 20 40 02/01/19 05:05 103 27 40 02/01/19 04:00 40 02/01/19 04:00 97.2 103 23 140/56 (84) 100 02/01/19 04:00 Mechanical Ventilator 02/01/19 03:38 107 02/01/19 02:55 104 26 40 02/01/19 02:02 109 29 100 Mechanical Ventilator 45.0 40 02/01/19 01:00 104 24 40 02/01/19 00:00 Mechanical Ventilator 02/01/19 00:00 97.7 105 24 127/74 (91) 100 01/31/19 23:31 105 01/31/19 22:36 107 26 40 01/31/19 21:05 109 26 40 01/31/19 20:00 105 01/31/19 20:00 Mechanical Ventilator 01/31/19 20:00 40 01/31/19 20:00 97.9 111 24 129/74 (92) 100 01/31/19 18:57 107 24 40 01/31/19 17:20 108 26 40 01/31/19 16:00 104 01/31/19 16:00 Mechanical Ventilator 01/31/19 16:00 97.4 105 24 110/64 (79) 99 01/31/19 16:00 40 01/31/19 15:20 107 26 40 Height (Feet): 5 Height (Inches): 6.00 Weight (Pounds): 209 Objective Gen: NAD CV: RRR Resp: coarse. ventilatory sounds Abd: soft. Distended. Hypoactive BS+. G tube Ext: contracted Neuro: not alert Laboratory Tests Test 02/01/19 05:30 White Blood Count 28.6 K/UL (4.8-10.8) *H Red Blood Count 3.43 M/UL (4.70-6.10) L Hemoglobin 10.2 G/DL (14.2-18.0) L Hematocrit 30.9 % (42.0-52.0) L Mean Corpuscular Volume 90 FL (80-99) Mean Corpuscular Hemoglobin 29.8 PG (27.0-31.0) Mean Corpuscular Hemoglobin Concent 33.0 G/DL (32.0-36.0) Red Cell Distribution Width 15.4 % (11.6-14.8) H Platelet Count 396 K/UL (150-450) Mean Platelet Volume 7.1 FL (6.5-10.1) Neutrophils (%) (Auto) % (45.0-75.0) Lymphocytes (%) (Auto) % (20.0-45.0) Monocytes (%) (Auto) % (1.0-10.0) Eosinophils (%) (Auto) % (0.0-3.0) Basophils (%) (Auto) % (0.0-2.0) Differential Total Cells Counted 100 Neutrophils % (Manual) 81 % (45-75) H Lymphocytes % (Manual) 9 % (20-45) L Monocytes % (Manual) 5 % (1-10) Eosinophils % (Manual) 5 % (0-3) H Basophils % (Manual) 0 % (0-2) Band Neutrophils 0 % (0-8) Platelet Estimate Adequate Platelet Morphology Normal Anisocytosis 1+ Sodium Level 148 MMOL/L (136-145) H Potassium Level 3.2 MMOL/L (3.5-5.1) L Chloride Level 121 MMOL/L (98-107) H Carbon Dioxide Level 21 MMOL/L (21-32) Anion Gap 6 mmol/L (5-15) Blood Urea Nitrogen 19 mg/dL (7-18) H Creatinine 0.5 MG/DL (0.55-1.30) L Estimat Glomerular Filtration Rate > 60 mL/min (>60) Glucose Level 236 MG/DL (74-106) H Calcium Level 6.6 MG/DL (8.5-10.1) L Phosphorus Level 2.1 MG/DL (2.5-4.9) L Magnesium Level 1.9 MG/DL (1.8-2.4) Total Bilirubin 0.3 MG/DL (0.2-1.0) Aspartate Amino Transf (AST/SGOT) 34 U/L (15-37) Alanine Aminotransferase (ALT/SGPT) 34 U/L (12-78) Alkaline Phosphatase 287 U/L (46-116) H Total Protein 4.8 G/DL (6.4-8.2) L Albumin 1.1 G/DL (3.4-5.0) L Globulin 3.7 g/dL Albumin/Globulin Ratio 0.3 (1.0-2.7) L Current Medications Medications (Trade) Dose Ordered Sig/Sima Route PRN Reason Start Time Stop Time Status Last Admin Dose Admin Acetaminophen (Tylenol) 650 mg Q4H PRN GT Mild Pain/Temp > 100.5 01/24/19 15:28 02/23/19 15:27 01/31/19 20:31 Acetaminophen/ Hydrocodone Bitart (Cisco 10/325) 1 tab Q4H PRN GT For Pain 01/31/19 22:30 02/07/19 22:29 Ascorbic Acid (Vitamin C) 250 mg DAILY GT 01/25/19 09:00 02/24/19 08:59 02/01/19 10:19 Chlorhexidine Gluconate (Paulina-Hex 2%) 1 applic DAILY@2000 TOPIC 02/01/19 20:00 03/03/19 19:59 Dextrose (Dextrose 50%) 25 ml Q30M PRN IV Hypoglycemia 01/24/19 15:30 02/21/19 06:29 Dextrose (Dextrose 50%) 50 ml Q30M PRN IV Hypoglycemia 01/24/19 15:30 02/21/19 06:29 Diphenhydramine HCl (Benadryl Cream) 1 applic TIDPRN PRN TOPIC Itching 02/01/19 15:00 03/03/19 14:59 Famotidine (Pepcid I.v.) 20 mg Q12HR IVP 01/24/19 21:00 02/23/19 20:59 02/01/19 10:19 Fidaxomicin (Dificid) 200 mg EVERY 12 HOURS ORAL 02/01/19 12:00 02/10/19 21:01 02/01/19 13:24 Heparin Sodium/ Sodium Chloride (Heparin 1000 units/500ml Premix) 1,000 unit ONCE PRN IV PICC PLACEMENT 02/01/19 06:15 02/02/19 23:59 Insulin Aspart (NovoLOG) Q6HR SUBQ 01/26/19 12:00 02/21/19 07:29 02/01/19 12:38 Lidocaine HCl (Xylocaine 1% 30ml) 30 ml ONCE PRN INJ PICC PLACEMENT 02/01/19 06:15 02/02/19 23:59 Lorazepam (Ativan 2mg/ml 1ml) 2 mg Q4H PRN IV For Anxiety 01/29/19 14:30 02/05/19 14:29 01/29/19 14:38 Meropenem 1 gm/ Sodium Chloride 55 ml @ 110 mls/hr Q12H IVPB 01/24/19 17:00 02/04/19 16:59 02/01/19 05:28 Midodrine (Pro-Amatine) 2.5 mg THREE TIMES A DAY GT 01/24/19 18:00 02/21/19 12:59 02/01/19 13:24 Morphine Sulfate (Morphine Sulfate) 4 mg Q6H PRN IVP Severe Pain (Pain Scale 7-10) 01/26/19 16:45 02/02/19 16:44 Potassium Phosphate 30 mm/ Sodium Chloride 285 ml @ 47.5 mls/hr ONCE ONCE IV 02/01/19 11:00 02/01/19 16:59 02/01/19 11:15 Sodium Chloride 1,000 ml @ 100 mls/hr Q10H IV 01/26/19 17:00 02/25/19 16:59 02/01/19 13:26 Tamsulosin HCl (Flomax) 0.4 mg BID ORAL 01/24/19 18:00 02/21/19 09:59 02/01/19 10:19 Vancomycin HCl (Vanco rx to dose) 1 ea DAILY PRN MISC Per rx protocol 01/29/19 15:30 02/28/19 15:29 Vancomycin/Sodium Chloride 275 ml @ 183.333 mls/hr Q12H IVPB 01/29/19 16:30 02/05/19 23:59 02/01/19 03:47 Mukesh Betancourt MD Feb 01, 2019 15:16
[2019-02-01 16:00] VITALS: BP 130/75
--- NOTE | 2019-02-01 18:15 | Progress Note ---
DATE: 02/01/2019 SUBJECTIVE: The patient's condition deteriorated today. Over the last several days, his WBC declined progressively from 30 to 21. Today his WBC bridget again to 28,000. He has a low-grade fever and tachycardia. PHYSICAL EXAMINATION: VITAL SIGNS: Blood pressure 133/69, his pulse is 103, respirations 28, temperature 98.9. HEENT: Eyes were normal. ENT, mucous membranes were moist and intact. NECK: Supple with no JVD without lymph nodes. Tracheostomy site is clean. LUNGS: Clear without rhonchi, rales, or wheezing. Secretions are small, thin, and clyaton. HEART: Normal sounds with regular beats. There is tachycardia at rest. ABDOMEN: Soft and nontender with normal bowel sounds. Gastrostomy site is clean. EXTREMITIES: Warm without cyanosis, clubbing, or edema. LABORATORY AND DIAGNOSTIC DATA: Hemoglobin is 10.2, hematocrit 30.9 with MCV of 90, WBC 28.6, and platelets is 396. His BUN and creatinine is 19 and 0.5 respectively. His sodium is 145, potassium 3.2, chloride 121, CO2 21. SGOT, SGPT, alkaline phosphatase are normal. His albumin is 1.1 and total protein is 4.8. IMPRESSION: The patient continues again deteriorated. I discussed with Infectious Disease and Pulmonary the possibility of transferring the patient to a long-term acute care. Repeat laboratory tests will be done in the a.m. The patient is currently on vancomycin 1 g IV piggyback q.12 h., vancomycin via G-tube 500 t.i.d., IV piggyback q.12 hours. Boris Arevalo M.D. DR: AMY JOB#: [id number] CC:
--- NOTE | 2019-02-01 19:15 | NUR ---
HAND-OFF: Report given to .RONALD AUSTIN.
--- NOTE | 2019-02-01 19:31 | NUR ---
NURSE NOTES: Received patient from Bill RN. Patient is obtunded, receiving oxygen via trach to vent: Portex 7, AC 16, TV 500, Fio2 40%, PEEP 5. G-tube is patent and receiving Vital AF 1.2 @55cc/hr. Brooks catheter is patent and draining. Patient has a Right IJ TLC receiving Normal Saline at 100cc/hr. Bed is locked, placed in lowest position, side rails up x3, head of bed elevated, bed alarm on, call light within reach. Will continue to monitor.
[2019-02-01 20:00] VITALS: BP 101/65
[2019-02-01] MEDS: Dyna-Hex 2% Top Sol 2oz TOPIC SCH (20:46)
[2019-02-02] VITALS: BP 93/60
[2019-02-02 04:00] VITALS: BP 95/57
[2019-02-02] MEDS: Vancomycin 1.25gm/NS Premix IVPB SCH ×2 (04:13→17:55)
[2019-02-02 04:45] LABS: HEMATOCRIT 30.8 % (42.0-52.0); HEMOGLOBIN 9.8 G/DL (14.2-18.0); MEAN CORPUSCULAR VOLUME 92 FL (80-99); PLATELET COUNT 405 K/UL (150-450); RED BLOOD COUNT 3.36 M/UL (4.70-6.10); RED CELL DISTRIBUTION WIDTH 16.6 % (11.6-14.8)
[2019-02-02 04:47] LABS: ALANINE AMINOTRANSFERASE 31 U/L (12-78); ALBUMIN/GLOBULIN RATIO 0.3 (1.0-2.7); ALKALINE PHOSPHATASE 264 U/L (46-116); ANION GAP 9 mmol/L (5-15); ASPARTATE AMINO TRANSFERASE 34 U/L (15-37); BILIRUBIN,TOTAL 0.3 MG/DL (0.2-1.0); BLOOD UREA NITROGEN 18 mg/dL (7-18); CALCIUM 6.7 MG/DL (8.5-10.1); CARBON DIOXIDE 20 MMOL/L (21-32); CHLORIDE 121 MMOL/L (98-107); CREATININE 0.4 MG/DL (0.55-1.30); PHOSPHORUS 2.4 MG/DL (2.5-4.9); POTASSIUM 3.2 MMOL/L (3.5-5.1); SODIUM 150 MMOL/L (136-145)
[2019-02-02 05:20] LABS: WHITE BLOOD COUNT 26.1 K/UL (4.8-10.8)
[2019-02-02] MEDS: Meropenem 1 GM in NS 55 ML IVPB SCH ×2 (05:29→18:31)
[2019-02-02] MEDS: NovoLOG Insulin Flexpen SUBQ SCH ×3 (05:36→18:39)
--- NOTE | 2019-02-02 07:05 | NUR ---
RESPIRATORY NOTE: Received patient on AC RR:16, Vt: 500, FiO2: 40%, and Peep of 5. Patient has a cuffed portex 7, secured with trach ties. Suctioned small amounts of white secretions. Bilateral rhonchi heard throughout the lungs. Vent plugged into red outlet. Alarms are audible. Will continue to monitor throughout the day.
--- NOTE | 2019-02-02 07:29 | NUR ---
HAND-OFF: Report given to Bill AUSTIN.
[2019-02-02 08:00] VITALS: BP 123/59
--- NOTE | 2019-02-02 10:00 | NUR ---
NURSE NOTES: DR SCHWARTZ CAME TO SEE THE PT AND MADE AWARE & NOTIFIED REGARDING Na+ 150, k+ 3.2 and MG 1.6. M.D STATED THAT HE ORDERING ELECTROLYTES REPLACEMENTS. WILL CONT TO MONITOR.
[2019-02-02] MEDS ORDERED: Potassium Phosphate 30 MM in NS 275 ML IV SCH (11:00)
[2019-02-02] MEDS: Ascorbic Acid 500mg tab GT SCH (11:26)
[2019-02-02] MEDS: Tamsulosin 0.4mg cap ORAL SCH ×2 (11:26→17:55)
--- NOTE | 2019-02-02 11:30 | Pulmonolgy Critical Care Note ---
Critical Care - Asmt/Plan Problems: (1) Septic shock (2) HCAP (healthcare-associated pneumonia) (3) Chronic respiratory failure (4) Ventilator dependence (5) Vegetative state (6) HARDEEP (acute kidney injury) (7) History of CVA (cerebrovascular accident) (8) Feeding by G-tube (9) HTN (hypertension) (10) Cerebral vascular disease Respiratory: monitor respiratory rate, adjust FIO2, CXR Cardiac: continue to monitor HR/BP Renal: F/U I&O, keep IV fluid Infectious Disease: check cultures, continue antibiotics Gastrointestinal: continue feedings/current rate Endocrine: monitor blood sugar Hematologic: monitor H/H Neurologic: PRN Ativan Affect: PRN ativan Prophylaxis: Protonix Time Spent (Minutes): 40 Notes 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, 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 Discussed with: nurses, consultants, case briefermanager product marketing - Objective Last 24 Hour Vital Signs Date Time Temp Pulse Resp B/P (MAP) Pulse Ox O2 Delivery O2 Flow Rate FiO2 02/02/19 10:33 105 26 40 02/02/19 08:56 104 26 40 02/02/19 07:28 99 02/02/19 07:02 99 26 40 02/02/19 04:34 104 18 40 02/02/19 04:11 107 02/02/19 04:00 40 02/02/19 04:00 Mechanical Ventilator 02/02/19 04:00 96.6 106 21 95/57 (70) 100 02/02/19 02:30 101 26 40 02/02/19 00:38 101 23 40 02/02/19 00:03 102 02/02/19 00:00 97.5 98 24 93/60 (71) 100 02/02/19 00:00 Mechanical Ventilator 02/01/19 22:53 99 23 40 02/01/19 21:10 95 25 40 02/01/19 20:00 Mechanical Ventilator 02/01/19 20:00 96.1 94 23 101/65 (77) 100 02/01/19 20:00 40 02/01/19 19:50 102 02/01/19 19:28 105 26 40 02/01/19 17:28 94 23 40 02/01/19 16:00 Mechanical Ventilator 02/01/19 16:00 99 02/01/19 16:00 97.5 96 17 130/75 (93) 100 02/01/19 16:00 40 02/01/19 14:40 92 28 40 02/01/19 13:22 94 18 40 02/01/19 12:00 98.6 94 24 119/65 (83) 100 02/01/19 12:00 Mechanical Ventilator 02/01/19 12:00 40 02/01/19 11:48 93 Status: sedated HEENT: atraumatic Lungs: clear, chest wall tender Abdomen: soft, non-tender, feeding tube Extremities: no C/C/E Accucheck: 167 Critical Care - Subjective ROS Limited/Unobtainable: Yes Condition: critical EKG Rhythm: Sinus Rhythm FI02: 40 Vent Support Breath Rate: 16 Vent Support Mode: AC Vent Tidal Volume: 500 Sputum Amount: Small PEEP: 5.0 PIP: 14 Tube Feeding Amount: 55 I&O: Intake and Output 02/01/19 02/02/19 19:00 07:00 Intake Total 2040.833 ml 2079.993 ml Output Total 601 ml 350 ml Balance 1439.833 ml 1729.993 ml Free Water 300 ml 100 ml IV Total 1080.833 ml 1319.993 ml Tube Feeding 660 ml 660 ml Output Urine Total 601 ml 350 ml # Bowel Movements 5 2 Labs: Laboratory Tests Test 02/02/19 03:00 White Blood Count 26.1 K/UL (4.8-10.8) *H Red Blood Count 3.36 M/UL (4.70-6.10) L Hemoglobin 9.8 G/DL (14.2-18.0) L Hematocrit 30.8 % (42.0-52.0) L Mean Corpuscular Volume 92 FL (80-99) Mean Corpuscular Hemoglobin 29.3 PG (27.0-31.0) Mean Corpuscular Hemoglobin Concent 32.0 G/DL (32.0-36.0) Red Cell Distribution Width 16.6 % (11.6-14.8) H Platelet Count 405 K/UL (150-450) Mean Platelet Volume 7.3 FL (6.5-10.1) Neutrophils (%) (Auto) % (45.0-75.0) Lymphocytes (%) (Auto) % (20.0-45.0) Monocytes (%) (Auto) % (1.0-10.0) Eosinophils (%) (Auto) % (0.0-3.0) Basophils (%) (Auto) % (0.0-2.0) Differential Total Cells Counted 100 Neutrophils % (Manual) 75 % (45-75) Lymphocytes % (Manual) 7 % (20-45) L Monocytes % (Manual) 3 % (1-10) Eosinophils % (Manual) 10 % (0-3) H Basophils % (Manual) 0 % (0-2) Band Neutrophils 5 % (0-8) Platelet Estimate Adequate Platelet Morphology Normal Hypochromasia 2+ Anisocytosis 1+ Erythrocyte Sedimentation Rate 24 MM/HR (0-20) H Sodium Level 150 MMOL/L (136-145) H Potassium Level 3.2 MMOL/L (3.5-5.1) L Chloride Level 121 MMOL/L (98-107) H Carbon Dioxide Level 20 MMOL/L (21-32) L Anion Gap 9 mmol/L (5-15) Blood Urea Nitrogen 18 mg/dL (7-18) Creatinine 0.4 MG/DL (0.55-1.30) L Estimat Glomerular Filtration Rate > 60 mL/min (>60) Glucose Level 216 MG/DL (74-106) H Calcium Level 6.7 MG/DL (8.5-10.1) L Phosphorus Level 2.4 MG/DL (2.5-4.9) L Magnesium Level 1.6 MG/DL (1.8-2.4) L Total Bilirubin 0.3 MG/DL (0.2-1.0) Aspartate Amino Transf (AST/SGOT) 34 U/L (15-37) Alanine Aminotransferase (ALT/SGPT) 31 U/L (12-78) Alkaline Phosphatase 264 U/L (46-116) H C-Reactive Protein, Quantitative 5.8 mg/dL (0.00-0.90) H Total Protein 4.5 G/DL (6.4-8.2) L Albumin 1.0 G/DL (3.4-5.0) L Globulin 3.5 g/dL Albumin/Globulin Ratio 0.3 (1.0-2.7) L Sagar Rudd MD Feb 02, 2019 11:30
--- NOTE | 2019-02-02 11:32 | Pulmonolgy Critical Care Note ---
Critical Care - Asmt/Plan Problems: (1) Septic shock (2) HCAP (healthcare-associated pneumonia) (3) Chronic respiratory failure (4) Ventilator dependence (5) Vegetative state (6) HARDEEP (acute kidney injury) (7) History of CVA (cerebrovascular accident) (8) Feeding by G-tube (9) HTN (hypertension) (10) Cerebral vascular disease Respiratory: monitor respiratory rate, adjust FIO2, CXR Cardiac: continue to monitor HR/BP Renal: F/U I&O, check electrolytes Infectious Disease: check cultures Gastrointestinal: continue feedings/current rate Endocrine: monitor blood sugar Neurologic: PRN Ativan, keep patient comfortable Prophylaxis: Protonix Notes 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: 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 project 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, cardio, renal Discussed with: nurses, consultants, onsite case managerinformation systems project manager - Objective Last 24 Hour Vital Signs Date Time Temp Pulse Resp B/P (MAP) Pulse Ox O2 Delivery O2 Flow Rate FiO2 02/02/19 10:33 105 26 40 02/02/19 08:56 104 26 40 02/02/19 07:28 99 02/02/19 07:02 99 26 40 02/02/19 04:34 104 18 40 02/02/19 04:11 107 02/02/19 04:00 40 02/02/19 04:00 Mechanical Ventilator 02/02/19 04:00 96.6 106 21 95/57 (70) 100 02/02/19 02:30 101 26 40 02/02/19 00:38 101 23 40 02/02/19 00:03 102 02/02/19 00:00 97.5 98 24 93/60 (71) 100 02/02/19 00:00 Mechanical Ventilator 02/01/19 22:53 99 23 40 02/01/19 21:10 95 25 40 02/01/19 20:00 Mechanical Ventilator 02/01/19 20:00 96.1 94 23 101/65 (77) 100 02/01/19 20:00 40 02/01/19 19:50 102 02/01/19 19:28 105 26 40 02/01/19 17:28 94 23 40 02/01/19 16:00 Mechanical Ventilator 02/01/19 16:00 99 02/01/19 16:00 97.5 96 17 130/75 (93) 100 02/01/19 16:00 40 02/01/19 14:40 92 28 40 02/01/19 13:22 94 18 40 02/01/19 12:00 98.6 94 24 119/65 (83) 100 02/01/19 12:00 Mechanical Ventilator 02/01/19 12:00 40 02/01/19 11:48 93 Status: sedated Condition: critical Neck: full ROM Lungs: chest wall tender Heart: HR/BP unstable Abdomen: non-tender Extremities: no C/C/E Accucheck: 167 Critical Care - Subjective ROS Limited/Unobtainable: Yes Condition: critical EKG Rhythm: Sinus Rhythm FI02: 40 Vent Support Breath Rate: 16 Vent Support Mode: AC Vent Tidal Volume: 500 Sputum Amount: Small PEEP: 5.0 PIP: 14 Tube Feeding Amount: 55 I&O: Intake and Output 02/01/19 02/02/19 19:00 07:00 Intake Total 2040.833 ml 2079.993 ml Output Total 601 ml 350 ml Balance 1439.833 ml 1729.993 ml Free Water 300 ml 100 ml IV Total 1080.833 ml 1319.993 ml Tube Feeding 660 ml 660 ml Output Urine Total 601 ml 350 ml # Bowel Movements 5 2 Labs: Laboratory Tests Test 02/02/19 03:00 White Blood Count 26.1 K/UL (4.8-10.8) *H Red Blood Count 3.36 M/UL (4.70-6.10) L Hemoglobin 9.8 G/DL (14.2-18.0) L Hematocrit 30.8 % (42.0-52.0) L Mean Corpuscular Volume 92 FL (80-99) Mean Corpuscular Hemoglobin 29.3 PG (27.0-31.0) Mean Corpuscular Hemoglobin Concent 32.0 G/DL (32.0-36.0) Red Cell Distribution Width 16.6 % (11.6-14.8) H Platelet Count 405 K/UL (150-450) Mean Platelet Volume 7.3 FL (6.5-10.1) Neutrophils (%) (Auto) % (45.0-75.0) Lymphocytes (%) (Auto) % (20.0-45.0) Monocytes (%) (Auto) % (1.0-10.0) Eosinophils (%) (Auto) % (0.0-3.0) Basophils (%) (Auto) % (0.0-2.0) Differential Total Cells Counted 100 Neutrophils % (Manual) 75 % (45-75) Lymphocytes % (Manual) 7 % (20-45) L Monocytes % (Manual) 3 % (1-10) Eosinophils % (Manual) 10 % (0-3) H Basophils % (Manual) 0 % (0-2) Band Neutrophils 5 % (0-8) Platelet Estimate Adequate Platelet Morphology Normal Hypochromasia 2+ Anisocytosis 1+ Erythrocyte Sedimentation Rate 24 MM/HR (0-20) H Sodium Level 150 MMOL/L (136-145) H Potassium Level 3.2 MMOL/L (3.5-5.1) L Chloride Level 121 MMOL/L (98-107) H Carbon Dioxide Level 20 MMOL/L (21-32) L Anion Gap 9 mmol/L (5-15) Blood Urea Nitrogen 18 mg/dL (7-18) Creatinine 0.4 MG/DL (0.55-1.30) L Estimat Glomerular Filtration Rate > 60 mL/min (>60) Glucose Level 216 MG/DL (74-106) H Calcium Level 6.7 MG/DL (8.5-10.1) L Phosphorus Level 2.4 MG/DL (2.5-4.9) L Magnesium Level 1.6 MG/DL (1.8-2.4) L Total Bilirubin 0.3 MG/DL (0.2-1.0) Aspartate Amino Transf (AST/SGOT) 34 U/L (15-37) Alanine Aminotransferase (ALT/SGPT) 31 U/L (12-78) Alkaline Phosphatase 264 U/L (46-116) H C-Reactive Protein, Quantitative 5.8 mg/dL (0.00-0.90) H Total Protein 4.5 G/DL (6.4-8.2) L Albumin 1.0 G/DL (3.4-5.0) L Globulin 3.5 g/dL Albumin/Globulin Ratio 0.3 (1.0-2.7) L Sagar Rudd MD Feb 02, 2019 11:32
--- NOTE | 2019-02-02 11:44 | Urology Progress Note ---
Assessment/Plan Status: unchanged Assessment/Plan: 1. Sepsis. 2. Incontinence. 3. Neurogenic bladder. 4. Proteinuria. 5. Hematuria. 6. Pyuria. 7. History of nephrolithiasis. 8. Urethral stricture. maintain hernández, do not remove switch to larger size hernández at some point hand irrigated and do PRN abx as ordered, ID on case on flomax BID Subjective Allergies: Coded Allergies: OXYTETRACYCLINE (Unverified Allergy, Unknown, 09/05/13) PENICILLINS (Unverified Allergy, Unknown, 06/11/17) Tolerated one dose of Cefepime 06/07/17 Tolerated Cefdinir 06/10/17 Uncoded Allergies: PLASTIC TAPE (Allergy, Mild, ITCHINESS, 08/08/15) MEDICAL TAPE (Allergy, Unknown, 12/10/16) Subjective all noted Objective Last 24 Hour Vital Signs Date Time Temp Pulse Resp B/P (MAP) Pulse Ox O2 Delivery O2 Flow Rate FiO2 02/02/19 10:33 105 26 40 02/02/19 08:56 104 26 40 02/02/19 07:28 99 02/02/19 07:02 99 26 40 02/02/19 04:34 104 18 40 02/02/19 04:11 107 02/02/19 04:00 40 02/02/19 04:00 Mechanical Ventilator 02/02/19 04:00 96.6 106 21 95/57 (70) 100 02/02/19 02:30 101 26 40 02/02/19 00:38 101 23 40 02/02/19 00:03 102 02/02/19 00:00 97.5 98 24 93/60 (71) 100 02/02/19 00:00 Mechanical Ventilator 02/01/19 22:53 99 23 40 02/01/19 21:10 95 25 40 02/01/19 20:00 Mechanical Ventilator 02/01/19 20:00 96.1 94 23 101/65 (77) 100 02/01/19 20:00 40 02/01/19 19:50 102 02/01/19 19:28 105 26 40 02/01/19 17:28 94 23 40 02/01/19 16:00 Mechanical Ventilator 02/01/19 16:00 99 02/01/19 16:00 97.5 96 17 130/75 (93) 100 02/01/19 16:00 40 02/01/19 14:40 92 28 40 02/01/19 13:22 94 18 40 02/01/19 12:00 98.6 94 24 119/65 (83) 100 02/01/19 12:00 Mechanical Ventilator 02/01/19 12:00 40 02/01/19 11:48 93 Intake and Output 02/01/19 02/02/19 19:00 07:00 Intake Total 2040.833 ml 2079.993 ml Output Total 601 ml 350 ml Balance 1439.833 ml 1729.993 ml Free Water 300 ml 100 ml IV Total 1080.833 ml 1319.993 ml Tube Feeding 660 ml 660 ml Output Urine Total 601 ml 350 ml # Bowel Movements 5 2 Microbiology Date/Time Source Procedure Growth Status 01/24/19 17:30 Blood Blood Culture - Final NO GROWTH AFTER 5 DAYS Complete 01/22/19 02:10 Nasal Nares MRSA Culture - Final NO METHICILLIN RESISTANT STAPH AUREUS... Complete 01/22/19 17:23 Stool Clostridium difficile Toxin Assay - Final Complete 01/22/19 04:45 Urine,Clean Catch Urine Culture - Final Enterococcus Faecalis - Vre Complete 01/22/19 02:10 Rectum - Final Escherichia Coli - Cre Complete Current Medications Medications (Trade) Dose Ordered Sig/Sima Route PRN Reason Start Time Stop Time Status Last Admin Dose Admin Acetaminophen (Tylenol) 650 mg Q4H PRN GT Mild Pain/Temp > 100.5 01/24/19 15:28 02/23/19 15:27 01/31/19 20:31 Acetaminophen/ Hydrocodone Bitart ([place] 10/325) 1 tab Q4H PRN GT For Pain 01/31/19 22:30 02/07/19 22:29 Ascorbic Acid (Vitamin C) 250 mg DAILY GT 01/25/19 09:00 02/24/19 08:59 02/02/19 11:26 Chlorhexidine Gluconate (Paulina-Hex 2%) 1 applic DAILY@1999 TOPIC 02/01/19 20:00 03/03/19 19:59 02/01/19 20:46 Dextrose (Dextrose 50%) 25 ml Q30M PRN IV Hypoglycemia 01/24/19 15:30 02/21/19 06:29 Dextrose (Dextrose 50%) 50 ml Q30M PRN IV Hypoglycemia 01/24/19 15:30 02/21/19 06:29 Diphenhydramine HCl (Benadryl Cream) 1 applic TIDPRN PRN TOPIC Itching 02/01/19 15:00 03/03/19 14:59 02/02/19 11:25 Famotidine (Pepcid I.v.) 20 mg Q12HR IVP 01/24/19 21:00 02/23/19 20:59 02/02/19 11:26 Fidaxomicin (Dificid) 200 mg EVERY 12 HOURS ORAL 02/01/19 12:00 02/10/19 21:01 02/02/19 11:25 Heparin Sodium/ Sodium Chloride (Heparin 1000 units/500ml Premix) 1,000 unit ONCE PRN IV PICC PLACEMENT 02/01/19 06:15 02/02/19 23:59 Insulin Aspart (NovoLOG) Q6HR SUBQ 01/26/19 12:00 02/21/19 07:29 02/02/19 05:36 Lidocaine HCl (Xylocaine 1% 30ml) 30 ml ONCE PRN INJ PICC PLACEMENT 02/01/19 06:15 02/02/19 23:59 Lorazepam (Ativan 2mg/ml 1ml) 2 mg Q4H PRN IV For Anxiety 01/29/19 14:30 02/05/19 14:29 01/29/19 14:38 Magnesium Sulfate 100 ml @ 100 mls/hr Q1H IVPB 02/02/19 10:15 02/02/19 12:14 02/02/19 11:25 Meropenem 1 gm/ Sodium Chloride 55 ml @ 110 mls/hr Q12H IVPB 01/24/19 17:00 02/04/19 16:59 02/02/19 05:29 Midodrine (Pro-Amatine) 2.5 mg THREE TIMES A DAY GT 01/24/19 18:00 02/21/19 12:59 02/02/19 11:27 Morphine Sulfate (Morphine Sulfate) 4 mg Q6H PRN IVP Severe Pain (Pain Scale 7-10) 01/26/19 16:45 02/02/19 16:44 Potassium Phosphate 30 mm/ Sodium Chloride 285 ml @ 47.5 mls/hr ONCE IV 02/02/19 11:00 02/02/19 18:00 Sodium Chloride 1,000 ml @ 100 mls/hr Q10H IV 01/26/19 17:00 02/25/19 16:59 02/01/19 22:56 Tamsulosin HCl (Flomax) 0.4 mg BID ORAL 01/24/19 18:00 02/21/19 09:59 02/02/19 11:26 Vancomycin HCl (Vanco rx to dose) 1 ea DAILY PRN MISC Per rx protocol 01/29/19 15:30 02/28/19 15:29 Vancomycin/Sodium Chloride 275 ml @ 183.333 mls/hr Q12H IVPB 01/29/19 16:30 02/05/19 23:59 02/02/19 04:13 Laboratory Tests 02/02/19 03:00: White Blood Count 26.1*H, Red Blood Count 3.36L, Hemoglobin 9.8L, Hematocrit 30.8L, Mean Corpuscular Volume 92, Mean Corpuscular Hemoglobin 29.3, Mean Corpuscular Hemoglobin Concent 32.0, Red Cell Distribution Width 16.6H, Platelet Count 405, Mean Platelet Volume 7.3, Neutrophils (%) (Auto) , Lymphocytes (%) (Auto) , Monocytes (%) (Auto) , Eosinophils (%) (Auto) , Basophils (%) (Auto) , Differential Total Cells Counted 100, Neutrophils % ( Manual) 75, Lymphocytes % (Manual) 7L, Monocytes % (Manual) 3, Eosinophils % ( Manual) 10H, Basophils % (Manual) 0, Band Neutrophils 5, Platelet Estimate Adequate, Platelet Morphology Normal, Hypochromasia 2+, Anisocytosis 1+, Erythrocyte Sedimentation Rate 24H, Sodium Level 150H, Potassium Level 3.2L, Chloride Level 121H, Carbon Dioxide Level 20L, Anion Gap 9, Blood Urea Nitrogen 18, Creatinine 0.4L, Estimat Glomerular Filtration Rate > 60, Glucose Level 216H , Calcium Level 6.7L, Phosphorus Level 2.4L, Magnesium Level 1.6L, Total Bilirubin 0.3, Aspartate Amino Transf (AST/SGOT) 34, Alanine Aminotransferase ( ALT/SGPT) 31, Alkaline Phosphatase 264H, C-Reactive Protein, Quantitative 5.8H, Total Protein 4.5L, Albumin 1.0L, Globulin 3.5, Albumin/Globulin Ratio 0.3L Height (Feet): 5 Height (Inches): 6.00 Weight (Pounds): 210 Objective exam stable hernández indwelling, urine yellow/abhay no active bleeding at meatus renal u/s (01/23) noted pelvic CT (01/28) noted Jake Pierre MD Feb 02, 2019 11:44
[2019-02-02 12:00] VITALS: BP 95/67
--- NOTE | 2019-02-02 12:13 | NUR ---
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 96.6 HR 107 RR 21 B/P 95/57 AC 16 TV 500 FIO2 40% PEEP 5 WBC 26.1 ESR 24 NA 150 K 3.2 IS: IVF NS@ 100ML/HR VANCO IV MEROPENEM IV DIFICID GT K-PHOS IV STEP DOWN STATUS
--- NOTE | 2019-02-02 12:51 | Nephrology Progress Note ---
Assessment/Plan Problem List: (1) Hypokalemia (2) HARDEEP (acute kidney injury) (3) Sepsis (4) Hyponatremia Assessment HARDEEP (acute kidney injury) HypoNatremia Septic shock Others: HCAP (healthcare-associated pneumonia) Chronic respiratory failure Ventilator dependence Vegetative state History of CVA (cerebrovascular accident) Feeding by G-tube HTN (hypertension) Cerebral vascular disease Plan K Phos mag as needed Hydrate monitor renal parameters Midodrine Antibiotics Avoid nephrotoxics Brooks could not be put in due to resistance start flomax per order Subjective ROS Limited/Unobtainable: Yes Objective Objective Last 24 Hour Vital Signs Date Time Temp Pulse Resp B/P (MAP) Pulse Ox O2 Delivery O2 Flow Rate FiO2 02/02/19 11:45 110 25 40 02/02/19 10:33 105 26 40 02/02/19 08:56 104 26 40 02/02/19 07:28 99 02/02/19 07:02 99 26 40 02/02/19 04:34 104 18 40 02/02/19 04:11 107 02/02/19 04:00 40 02/02/19 04:00 Mechanical Ventilator 02/02/19 04:00 96.6 106 21 95/57 (70) 100 02/02/19 02:30 101 26 40 02/02/19 00:38 101 23 40 02/02/19 00:03 102 02/02/19 00:00 97.5 98 24 93/60 (71) 100 02/02/19 00:00 Mechanical Ventilator 02/01/19 22:53 99 23 40 02/01/19 21:10 95 25 40 02/01/19 20:00 Mechanical Ventilator 02/01/19 20:00 96.1 94 23 101/65 (77) 100 02/01/19 20:00 40 02/01/19 19:50 102 02/01/19 19:28 105 26 40 02/01/19 17:28 94 23 40 02/01/19 16:00 Mechanical Ventilator 02/01/19 16:00 99 02/01/19 16:00 97.5 96 17 130/75 (93) 100 02/01/19 16:00 40 02/01/19 14:40 92 28 40 02/01/19 13:22 94 18 40 Intake and Output 02/01/19 02/02/19 19:00 07:00 Intake Total 2040.833 ml 2079.993 ml Output Total 601 ml 350 ml Balance 1439.833 ml 1729.993 ml Free Water 300 ml 100 ml IV Total 1080.833 ml 1319.993 ml Tube Feeding 660 ml 660 ml Output Urine Total 601 ml 350 ml # Bowel Movements 5 2 Laboratory Tests 02/02/19 03:00: White Blood Count 26.1*H, Red Blood Count 3.36L, Hemoglobin 9.8L, Hematocrit 30.8L, Mean Corpuscular Volume 92, Mean Corpuscular Hemoglobin 29.3, Mean Corpuscular Hemoglobin Concent 32.0, Red Cell Distribution Width 16.6H, Platelet Count 405, Mean Platelet Volume 7.3, Neutrophils (%) (Auto) , Lymphocytes (%) (Auto) , Monocytes (%) (Auto) , Eosinophils (%) (Auto) , Basophils (%) (Auto) , Differential Total Cells Counted 100, Neutrophils % ( Manual) 75, Lymphocytes % (Manual) 7L, Monocytes % (Manual) 3, Eosinophils % ( Manual) 10H, Basophils % (Manual) 0, Band Neutrophils 5, Platelet Estimate Adequate, Platelet Morphology Normal, Hypochromasia 2+, Anisocytosis 1+, Erythrocyte Sedimentation Rate 24H, Sodium Level 150H, Potassium Level 3.2L, Chloride Level 121H, Carbon Dioxide Level 20L, Anion Gap 9, Blood Urea Nitrogen 18, Creatinine 0.4L, Estimat Glomerular Filtration Rate > 60, Glucose Level 216H , Calcium Level 6.7L, Phosphorus Level 2.4L, Magnesium Level 1.6L, Total Bilirubin 0.3, Aspartate Amino Transf (AST/SGOT) 34, Alanine Aminotransferase ( ALT/SGPT) 31, Alkaline Phosphatase 264H, C-Reactive Protein, Quantitative 5.8H, Total Protein 4.5L, Albumin 1.0L, Globulin 3.5, Albumin/Globulin Ratio 0.3L Height (Feet): 5 Height (Inches): 6.00 Weight (Pounds): 210 General Appearance: no apparent distress, lethargic Cardiovascular: tachycardia Respiratory/Chest: decreased breath sounds Abdomen: distended Objective no change Sergey Rivera MD Feb 02, 2019 12:51
--- NOTE | 2019-02-02 13:32 | GI Progress Note ---
Assessment/Plan Problems: (1) Clostridium difficile diarrhea ICD Codes: A04.72 - Enterocolitis due to Clostridium difficile, not specified as recurrent SNOMED: 7988401392622 (2) Severe sepsis ICD Codes: A41.9 - Sepsis, unspecified organism; R65.20 - Severe sepsis without septic shock SNOMED: 08067616 (3) Feeding by G-tube ICD Codes: Z93.1 - Feeding by G-tube SNOMED: 703458217 (4) Diarrhea ICD Codes: R19.7 - Diarrhea, unspecified SNOMED: 10900992 (5) Upper GI bleed ICD Codes: K92.2 - Gastrointestinal hemorrhage, unspecified SNOMED: 26047322 Status: unchanged Status Narrative Discussed with Dr. Rosas. Assessment/Plan No plans for GI procedures at this time given sepsis. Monitor H&H, PRN transfusions Occult blood to rule out any GI bleed Hold PPI given C. difficile H2B Antibiotics per infectious diseases for C. difficile IV hydration plus electrolyte correction GTF Follow labs recent CT reviewed The patient was seen and examined at bedside and all new and available data was reviewed in the patients chart. I agree with the above findings, impression and plan. (Patient seen earlier today. Signature stamp does not reflect patient encounter time.). - Gaurav Rosas MD Subjective Subjective limited Objective Last 24 Hour Vital Signs Date Time Temp Pulse Resp B/P (MAP) Pulse Ox O2 Delivery O2 Flow Rate FiO2 02/02/19 11:45 110 25 40 02/02/19 10:33 105 26 40 02/02/19 08:56 104 26 40 02/02/19 07:28 99 02/02/19 07:02 99 26 40 02/02/19 04:34 104 18 40 02/02/19 04:11 107 02/02/19 04:00 40 02/02/19 04:00 Mechanical Ventilator 02/02/19 04:00 96.6 106 21 95/57 (70) 100 02/02/19 02:30 101 26 40 02/02/19 00:38 101 23 40 02/02/19 00:03 102 02/02/19 00:00 97.5 98 24 93/60 (71) 100 02/02/19 00:00 Mechanical Ventilator 02/01/19 22:53 99 23 40 11/12/19 21:10 95 25 40 02/01/19 20:00 Mechanical Ventilator 02/01/19 20:00 96.1 94 23 101/65 (77) 100 02/01/19 20:00 40 02/01/19 19:50 102 02/01/19 19:28 105 26 40 02/01/19 17:28 94 23 40 02/01/19 16:00 Mechanical Ventilator 02/01/19 16:00 99 02/01/19 16:00 97.5 96 17 130/75 (93) 100 02/01/19 16:00 40 02/01/19 14:40 92 28 40 Intake and Output 02/01/19 02/02/19 19:00 07:00 Intake Total 2040.833 ml 2079.993 ml Output Total 601 ml 350 ml Balance 1439.833 ml 1729.993 ml Free Water 300 ml 100 ml IV Total 1080.833 ml 1319.993 ml Tube Feeding 660 ml 660 ml Output Urine Total 601 ml 350 ml # Bowel Movements 5 2 Laboratory Tests Test 02/02/19 03:00 White Blood Count 26.1 K/UL (4.8-10.8) *H Red Blood Count 3.36 M/UL (4.70-6.10) L Hemoglobin 9.8 G/DL (14.2-18.0) L Hematocrit 30.8 % (42.0-52.0) L Mean Corpuscular Volume 92 FL (80-99) Mean Corpuscular Hemoglobin 29.3 PG (27.0-31.0) Mean Corpuscular Hemoglobin Concent 32.0 G/DL (32.0-36.0) Red Cell Distribution Width 16.6 % (11.6-14.8) H Platelet Count 405 K/UL (150-450) Mean Platelet Volume 7.3 FL (6.5-10.1) Neutrophils (%) (Auto) % (45.0-75.0) Lymphocytes (%) (Auto) % (20.0-45.0) Monocytes (%) (Auto) % (1.0-10.0) Eosinophils (%) (Auto) % (0.0-3.0) Basophils (%) (Auto) % (0.0-2.0) Differential Total Cells Counted 100 Neutrophils % (Manual) 75 % (45-75) Lymphocytes % (Manual) 7 % (20-45) L Monocytes % (Manual) 3 % (1-10) Eosinophils % (Manual) 10 % (0-3) H Basophils % (Manual) 0 % (0-2) Band Neutrophils 5 % (0-8) Platelet Estimate Adequate Platelet Morphology Normal Hypochromasia 2+ Anisocytosis 1+ Erythrocyte Sedimentation Rate 24 MM/HR (0-20) H Sodium Level 150 MMOL/L (136-145) H Potassium Level 3.2 MMOL/L (3.5-5.1) L Chloride Level 121 MMOL/L (98-107) H Carbon Dioxide Level 20 MMOL/L (21-32) L Anion Gap 9 mmol/L (5-15) Blood Urea Nitrogen 18 mg/dL (7-18) Creatinine 0.4 MG/DL (0.55-1.30) L Estimat Glomerular Filtration Rate > 60 mL/min (>60) Glucose Level 216 MG/DL (74-106) H Calcium Level 6.7 MG/DL (8.5-10.1) L Phosphorus Level 2.4 MG/DL (2.5-4.9) L Magnesium Level 1.6 MG/DL (1.8-2.4) L Total Bilirubin 0.3 MG/DL (0.2-1.0) Aspartate Amino Transf (AST/SGOT) 34 U/L (15-37) Alanine Aminotransferase (ALT/SGPT) 31 U/L (12-78) Alkaline Phosphatase 264 U/L (46-116) H C-Reactive Protein, Quantitative 5.8 mg/dL (0.00-0.90) H Total Protein 4.5 G/DL (6.4-8.2) L Albumin 1.0 G/DL (3.4-5.0) L Globulin 3.5 g/dL Albumin/Globulin Ratio 0.3 (1.0-2.7) L Height (Feet): 5 Height (Inches): 6.00 Weight (Pounds): 210 General Appearance: alert Cardiovascular: normal rate Respiratory/Chest: normal breath sounds, no respiratory distress Abdominal Exam: soft Good Garcia NP Feb 02, 2019 13:32
--- NOTE | 2019-02-02 13:36 | Infectious Diseases Prog Note ---
Assessment/Plan Assessment/Plan 63 yo male who was sent to the ED on 01/21/19 for hypotension, fever and respiratory distress. Fever, SP Leukocytosis, fluctuating Gram negative Sepsis GBS and MRSA bacteremia 01/22 BCx: ESBL K pneumoniae, GBS, MRSA 01/22 CXR: bilateral opacities 01/22 UA positive. UCx VRE 01/23 CXR: Redemonstration of bibasilar patchy airspace opacities. Unchanged pulmonary vascular congestion. No pneumothorax. Stable small left pleural effusion. 01/24 Bcx: ngtd TTE negative 01/22 C diff positive 01/26 KUB: Nonspecific bowel gas pattern. Gastrostomy. No definite acute process 01/27 CT Pelvis: Severe proctocolitis with wall thicken in and inflammation as well as luminal distention due to fecal impaction. Rectal tube noted in place. Decubitus ulcer 01/27 CT Pelvis: No evidence of abscess or CT evidence for acute osteomyelitis /erosion of the coccyx/sacrum in the area of the clinically demonstrated decubitus ulceration/wound. The wound itself is not well seen on CT. Rash eosinophils on peripheral CBC VRE colonization DM COPD CVA Dementia Parkinsons Cardiac issues Vent dependent with trach G tube PLAN: - continue meropenem #/ - fidaxomicin #/ - Vancomycin IV #/ - 02/01 DC vanc po to 500mg # - 01/20 SP vanc po 125mg #4 - 02/01 DC Flagyl IV #7 - 01/28 SP Daptomycin #5 - 01/24 DC vancomycin IV #2 - f/u cultures - repeat bcx, sputum cx, UA, ucx, urine legionella - Monitor CBC and Temps if leukocytosis not improve, will consider HUONG given poor TTE quality and pt with MRSA bacteremia Thank you for this consult. [facility] will continue to follow the patient with you during this hospitalization. Subjective Allergies: Coded Allergies: OXYTETRACYCLINE (Unverified Allergy, Unknown, 09/05/13) PENICILLINS (Unverified Allergy, Unknown, 06/11/17) Tolerated one dose of Cefepime 06/07/17 Tolerated Cefdinir 06/10/17 Uncoded Allergies: PLASTIC TAPE (Allergy, Mild, ITCHINESS, 08/08/15) MEDICAL TAPE (Allergy, Unknown, 12/10/16) Subjective Afebrile. Still with loose stool per nurse WBC slightly better Objective Vital Signs Last 24 Hour Vital Signs Date Time Temp Pulse Resp B/P (MAP) Pulse Ox O2 Delivery O2 Flow Rate FiO2 02/02/19 11:45 110 25 40 02/02/19 10:33 105 26 40 02/02/19 08:56 104 26 40 02/02/19 07:28 99 02/02/19 07:02 99 26 40 02/02/19 04:34 104 18 40 02/02/19 04:11 107 02/02/19 04:00 40 02/02/19 04:00 Mechanical Ventilator 02/02/19 04:00 96.6 106 21 95/57 (70) 100 02/02/19 02:30 101 26 40 02/02/19 00:38 101 23 40 02/02/19 00:03 102 02/02/19 00:00 97.5 98 24 93/60 (71) 100 02/02/19 00:00 Mechanical Ventilator 02/01/19 22:53 99 23 40 02/01/19 21:10 95 25 40 02/01/19 20:00 Mechanical Ventilator 02/01/19 20:00 96.1 94 23 101/65 (77) 100 02/01/19 20:00 40 02/01/19 19:50 102 02/01/19 19:28 105 26 40 02/01/19 17:28 94 23 40 02/01/19 16:00 Mechanical Ventilator 02/01/19 16:00 99 02/01/19 16:00 97.5 96 17 130/75 (93) 100 02/01/19 16:00 40 02/01/19 14:40 92 28 40 Height (Feet): 5 Height (Inches): 6.00 Weight (Pounds): 210 Objective Gen: NAD CV: RRR Resp: coarse. ventilatory sounds Abd: soft. Distended. Hypoactive BS+. G tube Ext: contracted Neuro: not alert Laboratory Tests Test 02/02/19 03:00 White Blood Count 26.1 K/UL (4.8-10.8) *H Red Blood Count 3.36 M/UL (4.70-6.10) L Hemoglobin 9.8 G/DL (14.2-18.0) L Hematocrit 30.8 % (42.0-52.0) L Mean Corpuscular Volume 92 FL (80-99) Mean Corpuscular Hemoglobin 29.3 PG (27.0-31.0) Mean Corpuscular Hemoglobin Concent 32.0 G/DL (32.0-36.0) Red Cell Distribution Width 16.6 % (11.6-14.8) H Platelet Count 405 K/UL (150-450) Mean Platelet Volume 7.3 FL (6.5-10.1) Neutrophils (%) (Auto) % (45.0-75.0) Lymphocytes (%) (Auto) % (20.0-45.0) Monocytes (%) (Auto) % (1.0-10.0) Eosinophils (%) (Auto) % (0.0-3.0) Basophils (%) (Auto) % (0.0-2.0) Differential Total Cells Counted 100 Neutrophils % (Manual) 75 % (45-75) Lymphocytes % (Manual) 7 % (20-45) L Monocytes % (Manual) 3 % (1-10) Eosinophils % (Manual) 10 % (0-3) H Basophils % (Manual) 0 % (0-2) Band Neutrophils 5 % (0-8) Platelet Estimate Adequate Platelet Morphology Normal Hypochromasia 2+ Anisocytosis 1+ Erythrocyte Sedimentation Rate 24 MM/HR (0-20) H Sodium Level 150 MMOL/L (136-145) H Potassium Level 3.2 MMOL/L (3.5-5.1) L Chloride Level 121 MMOL/L (98-107) H Carbon Dioxide Level 20 MMOL/L (21-32) L Anion Gap 9 mmol/L (5-15) Blood Urea Nitrogen 18 mg/dL (7-18) Creatinine 0.4 MG/DL (0.55-1.30) L Estimat Glomerular Filtration Rate > 60 mL/min (>60) Glucose Level 216 MG/DL (74-106) H Calcium Level 6.7 MG/DL (8.5-10.1) L Phosphorus Level 2.4 MG/DL (2.5-4.9) L Magnesium Level 1.6 MG/DL (1.8-2.4) L Total Bilirubin 0.3 MG/DL (0.2-1.0) Aspartate Amino Transf (AST/SGOT) 34 U/L (15-37) Alanine Aminotransferase (ALT/SGPT) 31 U/L (12-78) Alkaline Phosphatase 264 U/L (46-116) H C-Reactive Protein, Quantitative 5.8 mg/dL (0.00-0.90) H Total Protein 4.5 G/DL (6.4-8.2) L Albumin 1.0 G/DL (3.4-5.0) L Globulin 3.5 g/dL Albumin/Globulin Ratio 0.3 (1.0-2.7) L Current Medications Medications (Trade) Dose Ordered Sig/Sima Route PRN Reason Start Time Stop Time Status Last Admin Dose Admin Acetaminophen (Tylenol) 650 mg Q4H PRN GT Mild Pain/Temp > 100.5 01/24/19 15:28 02/23/19 15:27 01/31/19 20:31 Acetaminophen/ Hydrocodone Bitart ([place] 10/325) 1 tab Q4H PRN GT For Pain 01/31/19 22:30 02/07/19 22:29 Ascorbic Acid (Vitamin C) 250 mg DAILY GT 01/25/19 09:00 02/24/19 08:59 02/02/19 11:26 Chlorhexidine Gluconate (Paulina-Hex 2%) 1 applic DAILY@2000 TOPIC 02/01/19 20:00 03/03/19 19:59 02/01/19 20:46 Dextrose 500 ml @ 500 mls/hr ONCE ONCE IV 02/02/19 13:00 02/02/19 13:59 Dextrose (Dextrose 50%) 25 ml Q30M PRN IV Hypoglycemia 01/24/19 15:30 02/21/19 06:29 Dextrose (Dextrose 50%) 50 ml Q30M PRN IV Hypoglycemia 01/24/19 15:30 02/21/19 06:29 Diphenhydramine HCl (Benadryl Cream) 1 applic TIDPRN PRN TOPIC Itching 02/01/19 15:00 03/03/19 14:59 02/02/19 11:25 Famotidine (Pepcid I.v.) 20 mg Q12HR IVP 01/24/19 21:00 02/23/19 20:59 02/02/19 11:26 Fidaxomicin (Dificid) 200 mg EVERY 12 HOURS ORAL 02/01/19 12:00 02/10/19 21:01 02/02/19 11:25 Heparin Sodium/ Sodium Chloride (Heparin 1000 units/500ml Premix) 1,000 unit ONCE PRN IV PICC PLACEMENT 02/01/19 06:15 02/02/19 23:59 Insulin Aspart (NovoLOG) Q6HR SUBQ 01/26/19 12:00 02/21/19 07:29 02/02/19 12:14 Lidocaine HCl (Xylocaine 1% 30ml) 30 ml ONCE PRN INJ PICC PLACEMENT 02/01/19 06:15 02/02/19 23:59 Lorazepam (Ativan 2mg/ml 1ml) 2 mg Q4H PRN IV For Anxiety 01/29/19 14:30 02/05/19 14:29 01/29/19 14:38 Meropenem 1 gm/ Sodium Chloride 55 ml @ 110 mls/hr Q12H IVPB 01/24/19 17:00 02/04/19 16:59 02/02/19 05:29 Midodrine (Pro-Amatine) 2.5 mg THREE TIMES A DAY GT 01/24/19 18:00 02/21/19 12:59 02/02/19 11:27 Morphine Sulfate (Morphine Sulfate) 4 mg Q6H PRN IVP Severe Pain (Pain Scale 7-10) 01/26/19 16:45 02/02/19 16:44 Potassium Phosphate 30 mm/ Sodium Chloride 285 ml @ 47.5 mls/hr ONCE IV 02/02/19 11:00 02/02/19 18:00 02/02/19 12:10 Sodium Chloride 1,000 ml @ 100 mls/hr Q10H IV 01/26/19 17:00 02/25/19 16:59 02/02/19 11:55 Tamsulosin HCl (Flomax) 0.4 mg BID ORAL 01/24/19 18:00 02/21/19 09:59 02/02/19 11:26 Vancomycin HCl (Vanco rx to dose) 1 ea DAILY PRN MISC Per rx protocol 01/29/19 15:30 02/28/19 15:29 Vancomycin/Sodium Chloride 275 ml @ 183.333 mls/hr Q12H IVPB 01/29/19 16:30 02/05/19 23:59 02/02/19 04:13 Mukesh Betancourt MD Feb 02, 2019 13:36
--- NOTE | 2019-02-02 14:27 | Diagnostic Imaging Report ---
Indication: Dyspnea Comparison: 01/23/2019 A single view chest radiograph was obtained. Findings: Lung volumes are extremely low. There is a probable left pleural effusion. Heart size is difficult to evaluate but probably stable. Right jugular line again noted. Tracheostomy also noted. IMPRESSION: Suspected left pleural effusion. No significant change otherwise
--- NOTE | 2019-02-02 14:31 | NUR ---
RADIOLOGY DEPT. , CHEST X-RAY DONE.-P.DYE
--- NOTE | 2019-02-02 15:43 | Surgery Progress Note ---
Surgery Progress Note Subjective Additional Comments wbc 26 exam stable diarrhea Objective Last 24 Hour Vital Signs Date Time Temp Pulse Resp B/P (MAP) Pulse Ox O2 Delivery O2 Flow Rate FiO2 02/02/19 15:00 117 20 40 02/02/19 11:45 110 25 40 02/02/19 10:33 105 26 40 02/02/19 08:56 104 26 40 02/02/19 07:28 99 02/02/19 07:02 99 26 40 02/02/19 04:34 104 18 40 02/02/19 04:11 107 02/02/19 04:00 40 02/02/19 04:00 Mechanical Ventilator 02/02/19 04:00 96.6 106 21 95/57 (70) 100 02/02/19 02:30 101 26 40 02/02/19 00:38 101 23 40 02/02/19 00:03 102 02/02/19 00:00 97.5 98 24 93/60 (71) 100 02/02/19 00:00 Mechanical Ventilator 02/01/19 22:53 99 23 40 02/01/19 21:10 95 25 40 02/01/19 20:00 Mechanical Ventilator 02/01/19 20:00 96.1 94 23 101/65 (77) 100 02/01/19 20:00 40 02/01/19 19:50 102 02/01/19 19:28 105 26 40 02/01/19 17:28 94 23 40 02/01/19 16:00 Mechanical Ventilator 02/01/19 16:00 99 02/01/19 16:00 97.5 96 17 130/75 (93) 100 02/01/19 16:00 40 I&O Intake and Output 02/01/19 02/02/19 19:00 07:00 Intake Total 2040.833 ml 2079.993 ml Output Total 601 ml 350 ml Balance 1439.833 ml 1729.993 ml Free Water 300 ml 100 ml IV Total 1080.833 ml 1319.993 ml Tube Feeding 660 ml 660 ml Output Urine Total 601 ml 350 ml # Bowel Movements 5 2 Dressing: saturated Wound: other Drains: other Cardiovascular: RSR Respiratory: decreased breath sounds Abdomen: soft, present bowel sounds Extremities: no cyanosis Laboratory Tests Test 02/02/19 03:00 White Blood Count 26.1 K/UL (4.8-10.8) *H Red Blood Count 3.36 M/UL (4.70-6.10) L Hemoglobin 9.8 G/DL (14.2-18.0) L Hematocrit 30.8 % (42.0-52.0) L Mean Corpuscular Volume 92 FL (80-99) Mean Corpuscular Hemoglobin 29.3 PG (27.0-31.0) Mean Corpuscular Hemoglobin Concent 32.0 G/DL (32.0-36.0) Red Cell Distribution Width 16.6 % (11.6-14.8) H Platelet Count 405 K/UL (150-450) Mean Platelet Volume 7.3 FL (6.5-10.1) Neutrophils (%) (Auto) % (45.0-75.0) Lymphocytes (%) (Auto) % (20.0-45.0) Monocytes (%) (Auto) % (1.0-10.0) Eosinophils (%) (Auto) % (0.0-3.0) Basophils (%) (Auto) % (0.0-2.0) Differential Total Cells Counted 100 Neutrophils % (Manual) 75 % (45-75) Lymphocytes % (Manual) 7 % (20-45) L Monocytes % (Manual) 3 % (1-10) Eosinophils % (Manual) 10 % (0-3) H Basophils % (Manual) 0 % (0-2) Band Neutrophils 5 % (0-8) Platelet Estimate Adequate Platelet Morphology Normal Hypochromasia 2+ Anisocytosis 1+ Erythrocyte Sedimentation Rate 24 MM/HR (0-20) H Sodium Level 150 MMOL/L (136-145) H Potassium Level 3.2 MMOL/L (3.5-5.1) L Chloride Level 121 MMOL/L (98-107) H Carbon Dioxide Level 20 MMOL/L (21-32) L Anion Gap 9 mmol/L (5-15) Blood Urea Nitrogen 18 mg/dL (7-18) Creatinine 0.4 MG/DL (0.55-1.30) L Estimat Glomerular Filtration Rate > 60 mL/min (>60) Glucose Level 216 MG/DL (74-106) H Calcium Level 6.7 MG/DL (8.5-10.1) L Phosphorus Level 2.4 MG/DL (2.5-4.9) L Magnesium Level 1.6 MG/DL (1.8-2.4) L Total Bilirubin 0.3 MG/DL (0.2-1.0) Aspartate Amino Transf (AST/SGOT) 34 U/L (15-37) Alanine Aminotransferase (ALT/SGPT) 31 U/L (12-78) Alkaline Phosphatase 264 U/L (46-116) H C-Reactive Protein, Quantitative 5.8 mg/dL (0.00-0.90) H Total Protein 4.5 G/DL (6.4-8.2) L Albumin 1.0 G/DL (3.4-5.0) L Globulin 3.5 g/dL Albumin/Globulin Ratio 0.3 (1.0-2.7) L Plan Problems: (1) Decubitus skin ulcer Assessment & Plan: Pt presented on admission with contractures, multiple pressure injuries .Pt noted to have 3 pressure injuries L elbow. Laterally L elbow -Full thickness pressure injury with 40% slough at base of wound,60% beefy red. Small amt sanguineous exudate noted(L)1.4cm x (W)2.1cm. Pressure injury L elbow (proximal) (L)0.5cm x (W)1cm . Scattered biofilm at base of wound , borders are macerated.(Inferior) (L)0.4cm x (W)0.5cm . Base of wound moist with Biofilm. Small amt serous exudate noted. (L)0.4cm x (W)0.5cm. Full thickness sacral pressure injury. Base of wound is pink- moist with scattered biofilm,(+) maceration along borders. Non-blanching erythema without induration periwound (L)11.2cm x (W)4.5cm x (D)0.4cm. Two additional pressure injuries noted to L and R sacrum. Partial thickness L sacral pressure injury. Base of wound is moist and viable. Edges are macerated with surrounding non-blanching erythema without induration or elevation in skin temp.(L)0.9cm x (W)1.3cm.R sacral partial thickness pressure injury. Base of wound is moist and viable. Edges flat and adherent to base of wound. Non- blanching erythema without induration or elevation in skin temp.(L)2cm x (W) 1.5cm. Partial thickness pressure injury to outer R buttocks. base of wound moist and viable. Edges flat and adherent to base of wound. Non-blanching erythema periwound.(L)2.3cm x (W)2.5cm. Partial thickness pressure injury inferior but in close proximity R buttocks (L) 2cm x (W)2cm . Base of wound is moist and viable. Surrounding non-blanching erythema without induration. Erythematous and indurated area noted to L groin. No elevation in skin temp noted. Scrotal sac is also erythematous. Non-blanching erythema with fluctuance R hallux. (L)1.6cm x (W)1.7cm. Pressure injury dorsal R foot . Base of wound moist with small amt of Biofilm.(+ ) maceration along borders.(L)1.5cm x (W)1.7cm. R 1st metatarsal necrotic with soft center with slough . Small amt seropurulent exudate noted. Marginal erythema along borders. (L)1.5cm x (W)1.5cm. Non-blanching erythema without induration or fluctuance lateral malleolus(L) 2.5cm x (W)2.5cm. L heel is boggy with non-blanching erythema. R heel is boggy but pink and easily blanchable. apply Benadryl cream to abd / ext rash Tx.plan: Cleanse Sacral wound with Saline. Apply Therahoney. Apply Triad Paste periwound. Cover with Optifoam drsg. Change every 3 days and prn. Apply Triad paste to pressure injuries R and L sacrum and R outer Buttocks. Cover wounds with Optifoam drsg. Change every 3 days and prn. Apply Triad paste to groin and scrotum with each incontinence care. Cleanse wounds L elbow with saline. Apply Therahoney to wounds. Cover with Optifoam drsg. Change every 3 days and prn. Apply Betadine to wounds dorsal R foot and R 1st metatarsal . Cover with Optifoam drsg. Change daily and prn. Apply Cavilon to R hallux, R and L malleoli and both heels. Cover each site with Optifoam drsgs. Change every 7 days and prn. APM/RENETTA Mattress overlay. Reposition at least every 2hours or as tolerated. Off-load heels with Pillow. Place pillow between knees. (2) Septic shock Assessment & Plan: Leukocytosis - improved Lactic acidosis resolved off pressors on IV fluids tube feeds needs nutritional supplementation Rx as written cont current care and management will follow with recs c diff CT reviewed - No evidence of abscess or CT evidence for acute osteomyelitis/ erosion of the coccyx/sacrum in the area of the clinically demonstrated decubitus ulceration/ wound. The wound itself is not well seen on CT. Severe proctocolitis with wall thickening and inflammation as well as luminal distention due to fecal impaction. Rectal tube noted in place. abx as per ID thank you (3) Feeding by G-tube Assessment & Plan: DAILY ESTIMATED NEEDS: Needs based on Critical care, wound 68kg 22-30 kcals/kg 5255-0418 total kcals 1.25-2 g protein/kg 85-136 g total protein 25-30 mL/kg 7233-6159 total fluid mLs NUTRITION DIAGNOSIS: 1) Swallowing difficulty R/T respiratory status as evidenced by pt vent dep via trach, PEG dep, on TF. 2) Increased kcal/prot needs R/T wound healing as evidenced by pt admitted w/ multiple wounds, including open sacral wound, eval pending. ENTERAL NUTRITION RECOMMENDATIONS: Vital AF 1.2 @55ml x24 hrs to provide 1320ml, 1584kcal, 99g prot, 1071ml free H20 * As medically appropriate w/ hemodynamic stability, rec elemental formula of Vital for GI tolerance. * Initiate VITAL 1.2 @ 15ml/hr x 6 hrs, advance 10ml q 4-6 hrs as tolerated to goal rate. * HOB >30 degrees/ water flushes per MD ADDITIONAL RECOMMENDATIONS: 1) Maintain calibrated bed scale wts 2) Wound healing: add Darryl 1pkt BID w/ TF order Add Vit C 250mg daily (f/up w/ WC eval) 3) F/up w/ H&P 4) Lytes daily, replete as needed (4) Vegetative state Jimmy Tang Feb 02, 2019 15:43
[2019-02-02 16:00] VITALS: BP 98/51
--- NOTE | 2019-02-02 16:19 | NUR ---
*-* INSURANCE *-* UPDATED CLINICALS AND REVIEWS HAVE BEEN FAXED TO: Fadumo Hyman CM or Ref# Yet #[phone] Fax#[phone] Addendum: 02/02/19 at 1625 by AICHA AZUL CM FADUMO SANCHEZM: TOM REF# [id number] P; [phone] F: [phone] Addendum: 02/02/19 at 1625 by AICHA AZUL CM SPOKE WITH JACOBO AND SHE HAS CONFIRMED CLINICALS ARE BEING RECEIVED.
--- NOTE | 2019-02-02 17:00 | NUR ---
NURSE NOTES: INSERTED A FLEXISEAL PER M.D ORDERS.PT HAVING LG AMT OF WHITE AND YELLOWISH WATERY DIARRHEA AND FOUL SMELL.DR RUBI CAME TO SEE THE PT.NO NEW ORDERS NOTED AT THIS TIME. WILL CONT TO MONITOR .
--- NOTE | 2019-02-02 19:15 | NUR ---
HAND-OFF: Report given to .RONALD AUSTIN.
--- NOTE | 2019-02-02 19:26 | NUR ---
NURSE NOTES: Received patient from Bill RN. Patient is obtunded, receiving oxygen via trach to vent: Portex 7, AC 16, TV 500, Fio2 40%, PEEP 5. G-tube is patent and receiving Vital AF 1.2 @55cc/hr. Brooks catheter is patent and draining. Patient has a Right IJ TLC receiving Normal Saline at 100cc/hr. Rectal tube is patent and draining. Bed is locked, placed in lowest position, side rails up x3, head of bed elevated, bed alarm on, call light within reach. Will continue to monitor.
--- NOTE | 2019-02-02 19:30 | NUR ---
NURSE NOTES: Received pt obtunded , contracted , extremities oozing with 3+ edema, multiple decubitus to various places, all covered with optifoam dry and intact.Pls see pictures. On p200 mattress, SR-ST low 100s on the monitor, bp stable, afebrile. IVF NS at 100ml/hr infusing to Rt SVC . site with drsg dry and intact. Will continue to monitor.
[2019-02-02 20:00] VITALS: BP 102/61
--- NOTE | 2019-02-02 20:00 | NUR ---
NURSE NOTES: Turned q 2hrs prn with good skin care done. Rectal tube with brownish stool moderate in amt (not leaking.)
[2019-02-02] MEDS: Dyna-Hex 2% Top Sol 2oz TOPIC SCH (20:32)
--- NOTE | 2019-02-02 20:50 | NUR ---
HAND-OFF: Report given to Alisson AUSTIN.
--- NOTE | 2019-02-02 23:00 | NUR ---
NURSE NOTES: Suctioned tk light yellow secretions moderate in amt and whitish secretions from the mouth lg in amt. Oral care done.02 sat >95% Will continue to monitor.
[2019-02-03] VITALS: BP 117/63
[2019-02-03] MEDS: NovoLOG Insulin Flexpen SUBQ SCH ×4 (00:24→17:21)
--- NOTE | 2019-02-03 01:15 | Progress Note ---
DATE: 02/02/2019 SUBJECTIVE: The patient developed voluminous diarrhea following which his fever resolved. He remained tachycardic. His blood pressure is normal. WBC has declined. PHYSICAL EXAMINATION: VITAL SIGNS: Blood pressure is 95/57, pulse 106, respirations 18, temperature of 96.6. HEENT: Eyes were normal. ENT, mucous membranes were moist and intact. NECK: Supple with no JVD without lymph nodes. Tracheostomy site is clean. LUNGS: Clear without rhonchi, rales, or wheezing. Secretions are small, thin, and clayton. HEART: Normal sounds with regular beats. There is no S3, S4, or pericardial rub. ABDOMEN: Soft and nontender with normal bowel sounds. Gastrostomy site is clean. EXTREMITIES: Warm without cyanosis, clubbing, or edema. LABORATORY AND DIAGNOSTIC DATA: Hemoglobin 9.8, hematocrit 30.8, MCV of 92, WBC of 26.1, and platelets is 405. His BUN and creatinine is 18 and 0.4 respectively. His sodium is 150, potassium 3.2, chloride 121, CO2 is 20. His calcium is 6.7 and phosphorus is 2.4 and magnesium is 1.6. SGOT and SGPT are normal. Alkaline phosphatase is 264. CRP declined at 5.8. Albumin is 1. Total protein is 4.5. Chest x-ray showed suspected left pleural effusion. IMPRESSION: The patient's yesterday increase in heart rate and WBCs may have been as a result of infection and today indicates a relief of his infection. Repeat laboratory tests will be done in the morning. The patient is currently on q.12 hours, vancomycin IV piggyback q.12 hours, 250 mg via G-tube, meropenem 1 g IV piggyback q.12 hours. Repeat laboratory tests will be done in the morning. Boris Arevalo M.D. DR: Day JOB#: [id number] CC:
[2019-02-03 04:00] VITALS: BP 100/57
--- NOTE | 2019-02-03 04:00 | NUR ---
NURSE NOTES: Condition unchanged, needs frequent suctioning.
[2019-02-03] MEDS: Vancomycin 1.25gm/NS Premix IVPB SCH ×2 (04:35→17:19)
[2019-02-03 04:44] LABS: ANION GAP 5 mmol/L (5-15); BLOOD UREA NITROGEN 18 mg/dL (7-18); CALCIUM 6.9 MG/DL (8.5-10.1); CARBON DIOXIDE 23 MMOL/L (21-32); CHLORIDE 116 MMOL/L (98-107); CREATININE 0.4 MG/DL (0.55-1.30); PHOSPHORUS 2.8 MG/DL (2.5-4.9); POTASSIUM 3.9 MMOL/L (3.5-5.1); SODIUM 144 MMOL/L (136-145)
--- NOTE | 2019-02-03 06:00 | NUR ---
NURSE NOTES: Accucheck 151- with coverage. No resp. distress noted.VSS.
[2019-02-03] MEDS: Meropenem 1 GM in NS 55 ML IVPB SCH ×2 (06:05→16:44)
--- NOTE | 2019-02-03 07:07 | NUR ---
HAND-OFF: Report given to Hieu AUSTIN.
--- NOTE | 2019-02-03 07:08 | NUR ---
NURSE NOTES: Received report from GEOVANNA Vinson. Patient is sleeping in bed, in stable condition. No s/sx of SOB, breathing is even and unlabored. Observed no presence of pain or discomfort at this time. Bed is in lowest position, brakes engaged. Brooks catheter and rectal tube in place, patent and draining. Call light is kept within easy reach. Will continue to monitor patient.
[2019-02-03 08:00] VITALS: BP 96/65
--- NOTE | 2019-02-03 08:41 | Urology Progress Note ---
Assessment/Plan Status: unchanged Assessment/Plan: 1. Sepsis. 2. Incontinence. 3. Neurogenic bladder. 4. Proteinuria. 5. Hematuria. 6. Pyuria. 7. History of nephrolithiasis. 8. Urethral stricture. maintain hernández, do not remove switch to larger size hernández at some point hand irrigated and do PRN abx as ordered, ID on case f/u on last blood cx on flomax BID Subjective Allergies: Coded Allergies: OXYTETRACYCLINE (Unverified Allergy, Unknown, 09/05/13) PENICILLINS (Unverified Allergy, Unknown, 06/11/17) Tolerated one dose of Cefepime 06/07/17 Tolerated Cefdinir 06/10/17 Uncoded Allergies: PLASTIC TAPE (Allergy, Mild, ITCHINESS, 08/08/15) MEDICAL TAPE (Allergy, Unknown, 12/10/16) Subjective all noted Objective Last 24 Hour Vital Signs Date Time Temp Pulse Resp B/P (MAP) Pulse Ox O2 Delivery O2 Flow Rate FiO2 02/03/19 07:28 104 23 40 02/03/19 06:07 97 16 40 02/03/19 04:05 90 02/03/19 04:00 Mechanical Ventilator 02/03/19 04:00 40 02/03/19 04:00 98.0 103 16 100/57 (71) 100 02/03/19 04:00 91 02/03/19 03:30 98 16 40 02/03/19 01:15 94 22 40 02/03/19 00:00 40 02/03/19 00:00 Mechanical Ventilator 02/03/19 00:00 98.1 103 24 117/63 (81) 99 02/03/19 00:00 108 02/02/19 23:37 109 21 40 02/02/19 20:58 107 21 40 02/02/19 20:00 99.0 118 23 102/61 (75) 96 02/02/19 20:00 Mechanical Ventilator 02/02/19 19:07 115 02/02/19 19:00 108 22 40 02/02/19 17:40 115 21 40 02/02/19 16:00 40 02/02/19 16:00 97.7 117 21 98/51 (67) 97 02/02/19 16:00 119 02/02/19 16:00 Mechanical Ventilator 02/02/19 15:00 117 20 40 02/02/19 12:00 97.7 112 18 95/67 (76) 98 02/02/19 12:00 40 02/02/19 12:00 Mechanical Ventilator 02/02/19 11:45 110 25 40 02/02/19 11:30 108 02/02/19 10:33 105 26 40 02/02/19 08:56 104 26 40 Intake and Output 02/02/19 02/03/19 19:00 07:00 Intake Total 2025.833 ml 2357.493 ml Output Total 650 ml 100 ml Balance 1375.833 ml 2257.493 ml Free Water 300 ml 200 ml IV Total 1120.833 ml 1552.493 ml Tube Feeding 605 ml 605 ml Output Urine Total 650 ml Stool Total 100 ml # Bowel Movements 5 3 Microbiology Date/Time Source Procedure Growth Status 02/01/19 12:40 Blood Blood Culture - Preliminary NO GROWTH AFTER 24 HOURS Resulted 01/22/19 02:10 Nasal Nares MRSA Culture - Final NO METHICILLIN RESISTANT STAPH AUREUS... Complete 01/22/19 17:23 Stool Clostridium difficile Toxin Assay - Final Complete 01/22/19 04:45 Urine,Clean Catch Urine Culture - Final Enterococcus Faecalis - Vre Complete 01/22/19 02:10 Rectum - Final Escherichia Coli - Cre Complete Current Medications Medications (Trade) Dose Ordered Sig/Sima Route PRN Reason Start Time Stop Time Status Last Admin Dose Admin Acetaminophen (Tylenol) 650 mg Q4H PRN GT Mild Pain/Temp > 100.5 01/24/19 15:28 02/23/19 15:27 01/31/19 20:31 Acetaminophen/ Hydrocodone Bitart (Gepp 10/325) 1 tab Q4H PRN GT For Pain 01/31/19 22:30 02/07/19 22:29 Ascorbic Acid (Vitamin C) 250 mg DAILY GT 01/25/19 09:00 02/24/19 08:59 02/02/19 11:26 Chlorhexidine Gluconate (Paulina-Hex 2%) 1 applic DAILY@1999 TOPIC 02/01/19 20:00 03/03/19 19:59 02/02/19 20:32 Dextrose (Dextrose 50%) 25 ml Q30M PRN IV Hypoglycemia 01/24/19 15:30 02/21/19 06:29 Dextrose (Dextrose 50%) 50 ml Q30M PRN IV Hypoglycemia 01/24/19 15:30 02/21/19 06:29 Diphenhydramine HCl (Benadryl Cream) 1 applic TIDPRN PRN TOPIC Itching 02/01/19 15:00 03/03/19 14:59 02/02/19 11:25 Famotidine (Pepcid I.v.) 20 mg Q12HR IVP 01/24/19 21:00 02/23/19 20:59 02/02/19 21:18 Fidaxomicin (Dificid) 200 mg EVERY 12 HOURS ORAL 02/01/19 12:00 02/10/19 21:01 02/02/19 21:19 Insulin Aspart (NovoLOG) Q6HR SUBQ 01/26/19 12:00 02/21/19 07:29 02/03/19 06:07 Lorazepam (Ativan 2mg/ml 1ml) 2 mg Q4H PRN IV For Anxiety 01/29/19 14:30 02/05/19 14:29 01/29/19 14:38 Meropenem 1 gm/ Sodium Chloride 55 ml @ 110 mls/hr Q12H IVPB 01/24/19 17:00 02/04/19 23:59 02/03/19 06:05 Midodrine (Pro-Amatine) 2.5 mg THREE TIMES A DAY GT 01/24/19 18:00 02/21/19 12:59 02/02/19 17:55 Sodium Chloride 1,000 ml @ 100 mls/hr Q10H IV 01/26/19 17:00 02/25/19 16:59 02/03/19 06:05 Tamsulosin HCl (Flomax) 0.4 mg BID ORAL 01/24/19 18:00 02/21/19 09:59 02/02/19 17:55 Vancomycin HCl (Vanco rx to dose) 1 ea DAILY PRN MISC Per rx protocol 01/29/19 15:30 02/28/19 15:29 Vancomycin/Sodium Chloride 275 ml @ 183.333 mls/hr Q12H IVPB 01/29/19 16:30 02/05/19 23:59 02/03/19 04:35 Laboratory Tests 02/03/19 03:00: White Blood Count [Pending], Red Blood Count [Pending], Hemoglobin [Pending], Hematocrit [Pending], Mean Corpuscular Volume [Pending], Mean Corpuscular Hemoglobin [Pending], Mean Corpuscular Hemoglobin Concent [Pending], Red Cell Distribution Width [Pending], Platelet Count [Pending], Mean Platelet Volume [ Pending], Neutrophils (%) (Auto) [Pending], Lymphocytes (%) (Auto) [Pending], Monocytes (%) (Auto) [Pending], Eosinophils (%) (Auto) [Pending], Basophils (%) (Auto) [Pending], Sodium Level 144, Potassium Level 3.9, Chloride Level 116H, Carbon Dioxide Level 23, Anion Gap 5, Blood Urea Nitrogen 18, Creatinine 0.4L, Estimat Glomerular Filtration Rate > 60, Glucose Level 166H, Calcium Level 6.9L , Phosphorus Level 2.8, Magnesium Level 1.9 Height (Feet): 5 Height (Inches): 6.00 Weight (Pounds): 213 Objective exam stable hernández indwelling, urine yellow/abhay no active bleeding at meatus renal u/s (01/23) noted pelvic CT (01/28) noted Jake Pierre MD Feb 03, 2019 08:41
[2019-02-03] MEDS: Tamsulosin 0.4mg cap ORAL SCH ×2 (08:45→17:19)
[2019-02-03] MEDS: Ascorbic Acid 500mg tab GT SCH (08:45)
[2019-02-03 08:57] LABS: BASOPHILS % (AUTO) 0.5 % (0.0-2.0); EOSINOPHILS % (AUTO) 10.2 % (0.0-3.0); HEMATOCRIT 29.5 % (42.0-52.0); HEMOGLOBIN 9.4 G/DL (14.2-18.0); LYMPHOCYTES % (AUTO) 14.9 % (20.0-45.0); MEAN CORPUSCULAR VOLUME 93 FL (80-99); MONOCYTES % (AUTO) 5.6 % (1.0-10.0); NEUTROPHILS % (AUTO) 68.8 % (45.0-75.0); PLATELET COUNT 323 K/UL (150-450); RED BLOOD COUNT 3.18 M/UL (4.70-6.10); RED CELL DISTRIBUTION WIDTH 17.1 % (11.6-14.8); WHITE BLOOD COUNT 16.7 K/UL (4.8-10.8)
--- NOTE | 2019-02-03 10:26 | Nephrology Progress Note ---
Assessment/Plan Problem List: (1) Hypokalemia (2) HARDEEP (acute kidney injury) (3) Sepsis (4) Hyponatremia Assessment HARDEEP (acute kidney injury) HypoNatremia Septic shock Others: HCAP (healthcare-associated pneumonia) Chronic respiratory failure Ventilator dependence Vegetative state History of CVA (cerebrovascular accident) Feeding by G-tube HTN (hypertension) Cerebral vascular disease Plan K Phos mag as needed Hydrate monitor renal parameters Midodrine Antibiotics Avoid nephrotoxics Brooks could not be put in due to resistance start flomax per order Subjective ROS Limited/Unobtainable: Yes Objective Objective Last 24 Hour Vital Signs Date Time Temp Pulse Resp B/P (MAP) Pulse Ox O2 Delivery O2 Flow Rate FiO2 02/03/19 09:16 83 19 40 02/03/19 08:00 96.8 89 16 96/65 (75) 98 02/03/19 08:00 Mechanical Ventilator 02/03/19 08:00 40 02/03/19 08:00 75 02/03/19 07:28 104 23 40 02/03/19 06:07 97 16 40 02/03/19 04:05 90 02/03/19 04:00 Mechanical Ventilator 02/03/19 04:00 40 02/03/19 04:00 98.0 103 16 100/57 (71) 100 02/03/19 04:00 91 02/03/19 03:30 98 16 40 02/03/19 01:15 94 22 40 02/03/19 00:00 40 02/03/19 00:00 Mechanical Ventilator 02/03/19 00:00 98.1 103 24 117/63 (81) 99 02/03/19 00:00 108 02/02/19 23:37 109 21 40 02/02/19 20:58 107 21 40 02/02/19 20:00 99.0 118 23 102/61 (75) 96 02/02/19 20:00 Mechanical Ventilator 02/02/19 19:07 115 02/02/19 19:00 108 22 40 02/02/19 17:40 115 21 40 02/02/19 16:00 40 02/02/19 16:00 97.7 117 21 98/51 (67) 97 02/02/19 16:00 119 02/02/19 16:00 Mechanical Ventilator 02/02/19 15:00 117 20 40 02/02/19 12:00 97.7 112 18 95/67 (76) 98 02/02/19 12:00 40 02/02/19 12:00 Mechanical Ventilator 02/02/19 11:45 110 25 40 02/02/19 11:30 108 02/02/19 10:33 105 26 40 Intake and Output 02/02/19 02/03/19 19:00 07:00 Intake Total 2025.833 ml 2357.493 ml Output Total 650 ml 100 ml Balance 1375.833 ml 2257.493 ml Free Water 300 ml 200 ml IV Total 1120.833 ml 1552.493 ml Tube Feeding 605 ml 605 ml Output Urine Total 650 ml Stool Total 100 ml # Bowel Movements 5 3 Laboratory Tests 02/03/19 03:00: Sodium Level 144, Potassium Level 3.9, Chloride Level 116H, Carbon Dioxide Level 23, Anion Gap 5, Blood Urea Nitrogen 18, Creatinine 0.4L, Estimat Glomerular Filtration Rate > 60, Glucose Level 166H, Calcium Level 6.9L, Phosphorus Level 2.8, Magnesium Level 1.9 02/03/19 08:30: White Blood Count 16.7H, Red Blood Count 3.18L, Hemoglobin 9.4L, Hematocrit 29.5L, Mean Corpuscular Volume 93, Mean Corpuscular Hemoglobin 29.6, Mean Corpuscular Hemoglobin Concent 32.0, Red Cell Distribution Width 17.1H, Platelet Count 323, Mean Platelet Volume 7.2, Neutrophils (%) (Auto) 68.8, Lymphocytes (%) (Auto) 14.9L, Monocytes (%) (Auto) 5.6, Eosinophils (%) (Auto) 10.2H, Basophils (%) (Auto) 0.5 Height (Feet): 5 Height (Inches): 6.00 Weight (Pounds): 213 General Appearance: no apparent distress Objective no change Sergey Rivera MD Feb 03, 2019 10:26
--- NOTE | 2019-02-03 11:03 | Surgery Progress Note ---
Surgery Progress Note Subjective Additional Comments leukocytosis trending down labsi mproved exam stable tolerating feeds diarrhea Objective Last 24 Hour Vital Signs Date Time Temp Pulse Resp B/P (MAP) Pulse Ox O2 Delivery O2 Flow Rate FiO2 02/03/19 09:16 83 19 40 02/03/19 08:00 96.8 89 16 96/65 (75) 98 02/03/19 08:00 Mechanical Ventilator 02/03/19 08:00 40 02/03/19 08:00 75 02/03/19 07:28 104 23 40 02/03/19 06:07 97 16 40 02/03/19 04:05 90 02/03/19 04:00 Mechanical Ventilator 02/03/19 04:00 40 02/03/19 04:00 98.0 103 16 100/57 (71) 100 02/03/19 04:00 91 02/03/19 03:30 98 16 40 02/03/19 01:15 94 22 40 02/03/19 00:00 40 02/03/19 00:00 Mechanical Ventilator 02/03/19 00:00 98.1 103 24 117/63 (81) 99 02/03/19 00:00 108 02/02/19 23:37 109 21 40 02/02/19 20:58 107 21 40 02/02/19 20:00 99.0 118 23 102/61 (75) 96 02/02/19 20:00 Mechanical Ventilator 02/02/19 19:07 115 02/02/19 19:00 108 22 40 02/02/19 17:40 115 21 40 02/02/19 16:00 40 02/02/19 16:00 97.7 117 21 98/51 (67) 97 02/02/19 16:00 119 02/02/19 16:00 Mechanical Ventilator 02/02/19 15:00 117 20 40 02/02/19 12:00 97.7 112 18 95/67 (76) 98 02/02/19 12:00 40 02/02/19 12:00 Mechanical Ventilator 02/02/19 11:45 110 25 40 02/02/19 11:30 108 I&O Intake and Output 02/02/19 02/03/19 19:00 07:00 Intake Total 2025.833 ml 2357.493 ml Output Total 650 ml 100 ml Balance 1375.833 ml 2257.493 ml Free Water 300 ml 200 ml IV Total 1120.833 ml 1552.493 ml Tube Feeding 605 ml 605 ml Output Urine Total 650 ml Stool Total 100 ml # Bowel Movements 5 3 Dressing: other Wound: other Drains: other Cardiovascular: RSR Respiratory: decreased breath sounds Abdomen: soft, non-tender, decreased bowel sounds Extremities: no cyanosis, other Laboratory Tests Test 02/03/19 03:00 02/03/19 08:30 Sodium Level 144 MMOL/L (136-145) Potassium Level 3.9 MMOL/L (3.5-5.1) Chloride Level 116 MMOL/L (98-107) H Carbon Dioxide Level 23 MMOL/L (21-32) Anion Gap 5 mmol/L (5-15) Blood Urea Nitrogen 18 mg/dL (7-18) Creatinine 0.4 MG/DL (0.55-1.30) L Estimat Glomerular Filtration Rate > 60 mL/min (>60) Glucose Level 166 MG/DL (74-106) H Calcium Level 6.9 MG/DL (8.5-10.1) L Phosphorus Level 2.8 MG/DL (2.5-4.9) Magnesium Level 1.9 MG/DL (1.8-2.4) White Blood Count 16.7 K/UL (4.8-10.8) H Red Blood Count 3.18 M/UL (4.70-6.10) L Hemoglobin 9.4 G/DL (14.2-18.0) L Hematocrit 29.5 % (42.0-52.0) L Mean Corpuscular Volume 93 FL (80-99) Mean Corpuscular Hemoglobin 29.6 PG (27.0-31.0) Mean Corpuscular Hemoglobin Concent 32.0 G/DL (32.0-36.0) Red Cell Distribution Width 17.1 % (11.6-14.8) H Platelet Count 323 K/UL (150-450) Mean Platelet Volume 7.2 FL (6.5-10.1) Neutrophils (%) (Auto) 68.8 % (45.0-75.0) Lymphocytes (%) (Auto) 14.9 % (20.0-45.0) L Monocytes (%) (Auto) 5.6 % (1.0-10.0) Eosinophils (%) (Auto) 10.2 % (0.0-3.0) H Basophils (%) (Auto) 0.5 % (0.0-2.0) Plan Problems: (1) Decubitus skin ulcer Assessment & Plan: Pt presented on admission with contractures, multiple pressure injuries .Pt noted to have 3 pressure injuries L elbow. Laterally L elbow -Full thickness pressure injury with 40% slough at base of wound,60% beefy red. Small amt sanguineous exudate noted(L)1.4cm x (W)2.1cm. Pressure injury L elbow (proximal) (L)0.5cm x (W)1cm . Scattered biofilm at base of wound , borders are macerated.(Inferior) (L)0.4cm x (W)0.5cm . Base of wound moist with Biofilm. Small amt serous exudate noted. (L)0.4cm x (W)0.5cm. Full thickness sacral pressure injury. Base of wound is pink- moist with scattered biofilm,(+) maceration along borders. Non-blanching erythema without induration periwound (L)11.2cm x (W)4.5cm x (D)0.4cm. Two additional pressure injuries noted to L and R sacrum. Partial thickness L sacral pressure injury. Base of wound is moist and viable. Edges are macerated with surrounding non-blanching erythema without induration or elevation in skin temp.(L)0.9cm x (W)1.3cm.R sacral partial thickness pressure injury. Base of wound is moist and viable. Edges flat and adherent to base of wound. Non- blanching erythema without induration or elevation in skin temp.(L)2cm x (W) 1.5cm. Partial thickness pressure injury to outer R buttocks. base of wound moist and viable. Edges flat and adherent to base of wound. Non-blanching erythema periwound.(L)2.3cm x (W)2.5cm. Partial thickness pressure injury inferior but in close proximity R buttocks (L) 2cm x (W)2cm . Base of wound is moist and viable. Surrounding non-blanching erythema without induration. Erythematous and indurated area noted to L groin. No elevation in skin temp noted. Scrotal sac is also erythematous. Non-blanching erythema with fluctuance R hallux. (L)1.6cm x (W)1.7cm. Pressure injury dorsal R foot . Base of wound moist with small amt of Biofilm.(+ ) maceration along borders.(L)1.5cm x (W)1.7cm. R 1st metatarsal necrotic with soft center with slough . Small amt seropurulent exudate noted. Marginal erythema along borders. (L)1.5cm x (W)1.5cm. Non-blanching erythema without induration or fluctuance lateral malleolus(L) 2.5cm x (W)2.5cm. L heel is boggy with non-blanching erythema. R heel is boggy but pink and easily blanchable. apply Benadryl cream to abd / ext rash Tx.plan: Cleanse Sacral wound with Saline. Apply Therahoney. Apply Triad Paste periwound. Cover with Optifoam drsg. Change every 3 days and prn. Apply Triad paste to pressure injuries R and L sacrum and R outer Buttocks. Cover wounds with Optifoam drsg. Change every 3 days and prn. Apply Triad paste to groin and scrotum with each incontinence care. Cleanse wounds L elbow with saline. Apply Therahoney to wounds. Cover with Optifoam drsg. Change every 3 days and prn. Apply Betadine to wounds dorsal R foot and R 1st metatarsal . Cover with Optifoam drsg. Change daily and prn. Apply Cavilon to R hallux, R and L malleoli and both heels. Cover each site with Optifoam drsgs. Change every 7 days and prn. APM/RENETTA Mattress overlay. Reposition at least every 2hours or as tolerated. Off-load heels with Pillow. Place pillow between knees. (2) Septic shock Assessment & Plan: Leukocytosis - improved Lactic acidosis resolved off pressors on IV fluids tube feeds needs nutritional supplementation Rx as written cont current care and management will follow with recs c diff CT reviewed - No evidence of abscess or CT evidence for acute osteomyelitis/ erosion of the coccyx/sacrum in the area of the clinically demonstrated decubitus ulceration/ wound. The wound itself is not well seen on CT. Severe proctocolitis with wall thickening and inflammation as well as luminal distention due to fecal impaction. Rectal tube noted in place. improving abx as per ID thank you (3) Feeding by G-tube Assessment & Plan: DAILY ESTIMATED NEEDS: Needs based on Critical care, wound 68kg 22-30 kcals/kg 9148-3719 total kcals 1.25-2 g protein/kg 85-136 g total protein 25-30 mL/kg 2504-2871 total fluid mLs NUTRITION DIAGNOSIS: 1) Swallowing difficulty R/T respiratory status as evidenced by pt vent dep via trach, PEG dep, on TF. 2) Increased kcal/prot needs R/T wound healing as evidenced by pt admitted w/ multiple wounds, including open sacral wound, eval pending. ENTERAL NUTRITION RECOMMENDATIONS: Vital AF 1.2 @55ml x24 hrs to provide 1320ml, 1584kcal, 99g prot, 1071ml free H20 * As medically appropriate w/ hemodynamic stability, rec elemental formula of Vital for GI tolerance. * Initiate VITAL 1.2 @ 15ml/hr x 6 hrs, advance 10ml q 4-6 hrs as tolerated to goal rate. * HOB >30 degrees/ water flushes per MD ADDITIONAL RECOMMENDATIONS: 1) Maintain calibrated bed scale wts 2) Wound healing: add Darryl 1pkt BID w/ TF order Add Vit C 250mg daily (f/up w/ WC eval) 3) F/up w/ H&P 4) Lytes daily, replete as needed (4) Vegetative state Jimmy Tang Feb 03, 2019 11:03
--- NOTE | 2019-02-03 11:06 | NUR ---
RD ASSESSMENT & RECOMMENDATIONS SEE CARE ACTIVITY FOR COMPLETE ASSESSMENT DAILY ESTIMATED NEEDS: Needs based on Critical Care, wounds, 68kg 22-30 kcals/kg 0343-8428 total kcals 1.25-2 g protein/kg 85-136 g total protein 25-30 mL/kg 2977-3492 total fluid mLs NUTRITION DIAGNOSIS: 1) Swallowing difficulty R/T respiratory status as evidenced by pt vent dep via trach, PEG dep, on TF. 2) Increased kcal/prot needs R/T wound healing as evidenced by pt admitted w/ multiple wounds, including full thickness wounds @ lt elbow and sacrum, refer to WC eval. NTERAL NUTRITION RECOMMENDATIONS: Vital AF 1.2 @55ml x24 hrs to provide 1320ml, 1584kcal, 99g prot, 1071ml free H20 * Maintain current TF * HOB >30 degrees/ water flushes per MD ADDITIONAL RECOMMENDATIONS: 1) Maintain calibrated bedscale wts-weights now in 200's, adm w/ 150 lbs. 2) Wound healing: add Darryl 1pkt BID Rec to hold Vit C w/ continued diarrhea. 3) Add probiotics: stool c-diff +, diarrhea, on rectal tube 4) Consider long acting insulin for improved BG control: BGs 200's 5) Lytes daily, replete as needed w/ active loose stool. .
[2019-02-03 12:00] VITALS: BP 94/48
--- NOTE | 2019-02-03 13:39 | NUR ---
CARE MANAGEMENT COORDINATORMOSAIC TECHNICIAN SI: RESP FAILURE TRACH/VENT DEPENDENT, SEPSIS T. 97.5 HR 86 RR 22 B/P 94/48 WBC 16.7 IS: VANCO IV MEROPENEM IV IVF NS @ 100ML/HR DIFICID GT STEP DOWN STATUS
--- NOTE | 2019-02-03 13:43 | Pulmonolgy Critical Care Note ---
Critical Care - Asmt/Plan Problems: (1) Septic shock (2) HCAP (healthcare-associated pneumonia) (3) Chronic respiratory failure (4) Ventilator dependence (5) Vegetative state (6) HARDEEP (acute kidney injury) (7) History of CVA (cerebrovascular accident) (8) Feeding by G-tube (9) HTN (hypertension) (10) Cerebral vascular disease Respiratory: monitor respiratory rate, adjust FIO2, CXR Cardiac: continue to monitor HR/BP Renal: F/U I&O, keep IV fluid Infectious Disease: continue antibiotics Gastrointestinal: hold feedings Endocrine: check TSH Hematologic: transfuse if hgb<8.5 Neurologic: PRN Ativan, keep patient comfortable Affect: PRN ativan Time Spent (Minutes): 40 Notes Reviewed: cardio, renal Discussed with: nurses, consultants, caseworkermanager truck - Objective Last 24 Hour Vital Signs Date Time Temp Pulse Resp B/P (MAP) Pulse Ox O2 Delivery O2 Flow Rate FiO2 02/03/19 13:01 86 22 40 02/03/19 12:00 97.5 86 22 94/48 (63) 100 02/03/19 12:00 Mechanical Ventilator 02/03/19 12:00 40 02/03/19 11:58 81 02/03/19 11:11 83 22 40 02/03/19 09:16 83 19 40 02/03/19 08:00 96.8 89 16 96/65 (75) 98 02/03/19 08:00 Mechanical Ventilator 02/03/19 08:00 40 02/03/19 08:00 75 02/03/19 07:28 104 23 40 02/03/19 06:07 97 16 40 02/03/19 04:05 90 02/03/19 04:00 Mechanical Ventilator 02/03/19 04:00 40 02/03/19 04:00 98.0 103 16 100/57 (71) 100 02/03/19 04:00 91 02/03/19 03:30 98 16 40 02/03/19 01:15 94 22 40 02/03/19 00:00 40 02/03/19 00:00 Mechanical Ventilator 02/03/19 00:00 98.1 103 24 117/63 (81) 99 02/03/19 00:00 108 02/02/19 23:37 109 21 40 02/02/19 20:58 107 21 40 02/02/19 20:00 99.0 118 23 102/61 (75) 96 02/02/19 20:00 Mechanical Ventilator 02/02/19 19:07 115 02/02/19 19:00 108 22 40 02/02/19 17:40 115 21 40 02/02/19 16:00 40 02/02/19 16:00 97.7 117 21 98/51 (67) 97 02/02/19 16:00 119 02/02/19 16:00 Mechanical Ventilator 02/02/19 15:00 117 20 40 Status: awake Condition: critical Neck: full ROM Heart: HR/BP unstable Abdomen: non-tender Extremities: no C/C/E Decubiti: stage Micro: Microbiology Date/Time Source Procedure Growth Status 02/01/19 12:40 Blood Blood Culture - Preliminary NO GROWTH AFTER 24 HOURS Resulted 02/01/19 12:30 Blood Blood Culture - Preliminary NO GROWTH AFTER 24 HOURS Resulted 02/02/19 18:20 Straight Cath Urine Culture - Preliminary NO GROWTH Resulted Accucheck: 151 Critical Care - Subjective ROS Limited/Unobtainable: Yes Condition: critical FI02: 40 Vent Support Breath Rate: 16 Vent Support Mode: AC Vent Tidal Volume: 500 Sputum Amount: Small PEEP: 5.0 PIP: 21 Tube Feeding Amount: 55 I&O: Intake and Output 02/02/19 02/03/19 19:00 07:00 Intake Total 2025.833 ml 2357.493 ml Output Total 650 ml 100 ml Balance 1375.833 ml 2257.493 ml Free Water 300 ml 200 ml IV Total 1120.833 ml 1552.493 ml Tube Feeding 605 ml 605 ml Output Urine Total 650 ml Stool Total 100 ml # Bowel Movements 5 3 Labs: Laboratory Tests Test 02/03/19 03:00 02/03/19 08:30 Sodium Level 144 MMOL/L (136-145) Potassium Level 3.9 MMOL/L (3.5-5.1) Chloride Level 116 MMOL/L (98-107) H Carbon Dioxide Level 23 MMOL/L (21-32) Anion Gap 5 mmol/L (5-15) Blood Urea Nitrogen 18 mg/dL (7-18) Creatinine 0.4 MG/DL (0.55-1.30) L Estimat Glomerular Filtration Rate > 60 mL/min (>60) Glucose Level 166 MG/DL (74-106) H Calcium Level 6.9 MG/DL (8.5-10.1) L Phosphorus Level 2.8 MG/DL (2.5-4.9) Magnesium Level 1.9 MG/DL (1.8-2.4) White Blood Count 16.7 K/UL (4.8-10.8) H Red Blood Count 3.18 M/UL (4.70-6.10) L Hemoglobin 9.4 G/DL (14.2-18.0) L Hematocrit 29.5 % (42.0-52.0) L Mean Corpuscular Volume 93 FL (80-99) Mean Corpuscular Hemoglobin 29.6 PG (27.0-31.0) Mean Corpuscular Hemoglobin Concent 32.0 G/DL (32.0-36.0) Red Cell Distribution Width 17.1 % (11.6-14.8) H Platelet Count 323 K/UL (150-450) Mean Platelet Volume 7.2 FL (6.5-10.1) Neutrophils (%) (Auto) 68.8 % (45.0-75.0) Lymphocytes (%) (Auto) 14.9 % (20.0-45.0) L Monocytes (%) (Auto) 5.6 % (1.0-10.0) Eosinophils (%) (Auto) 10.2 % (0.0-3.0) H Basophils (%) (Auto) 0.5 % (0.0-2.0) Sagar Rudd MD Feb 03, 2019 13:43
--- NOTE | 2019-02-03 13:57 | GI Progress Note ---
Assessment/Plan Problems: (1) Clostridium difficile diarrhea ICD Codes: A04.72 - Enterocolitis due to Clostridium difficile, not specified as recurrent SNOMED: 1151317300614 (2) Severe sepsis ICD Codes: A41.9 - Sepsis, unspecified organism; R65.20 - Severe sepsis without septic shock SNOMED: 37670847 (3) Feeding by G-tube ICD Codes: Z93.1 - Feeding by G-tube SNOMED: 428985045 (4) Diarrhea ICD Codes: R19.7 - Diarrhea, unspecified SNOMED: 07110931 (5) Upper GI bleed ICD Codes: K92.2 - Gastrointestinal hemorrhage, unspecified SNOMED: 62578451 Status: unchanged Status Narrative Discussed with Dr. Rosas. Assessment/Plan No plans for GI procedures at this time given sepsis. Monitor H&H, PRN transfusions Occult blood to rule out any GI bleed Hold PPI given C. difficile H2B Antibiotics per infectious diseases for C. difficile IV hydration plus electrolyte correction GTF Follow labs recent CT reviewed The patient was seen and examined at bedside and all new and available data was reviewed in the patients chart. I agree with the above findings, impression and plan. (Patient seen earlier today. Signature stamp does not reflect patient encounter time.). - Gaurav Rosas MD Subjective Subjective limited Objective Last 24 Hour Vital Signs Date Time Temp Pulse Resp B/P (MAP) Pulse Ox O2 Delivery O2 Flow Rate FiO2 02/03/19 13:01 86 22 40 02/03/19 12:00 97.5 86 22 94/48 (63) 100 02/03/19 12:00 Mechanical Ventilator 02/03/19 12:00 40 02/03/19 11:58 81 02/03/19 11:11 83 22 40 02/03/19 09:16 83 19 40 02/03/19 08:00 96.8 89 16 96/65 (75) 98 02/03/19 08:00 Mechanical Ventilator 02/03/19 08:00 40 02/03/19 08:00 75 02/03/19 07:28 104 23 40 02/03/19 06:07 97 16 40 02/03/19 04:05 90 02/03/19 04:00 Mechanical Ventilator 02/03/19 04:00 40 02/03/19 04:00 98.0 103 16 100/57 (71) 100 02/03/19 04:00 91 02/03/19 03:30 98 16 40 02/03/19 01:15 94 22 40 02/03/19 00:00 40 02/03/19 00:00 Mechanical Ventilator 02/03/19 00:00 98.1 103 24 117/63 (81) 99 02/03/19 00:00 108 02/02/19 23:37 109 21 40 02/02/19 20:58 107 21 40 02/02/19 20:00 99.0 118 23 102/61 (75) 96 02/02/19 20:00 Mechanical Ventilator 02/02/19 19:07 115 02/02/19 19:00 108 22 40 02/02/19 17:40 115 21 40 02/02/19 16:00 40 02/02/19 16:00 97.7 117 21 98/51 (67) 97 02/02/19 16:00 119 02/02/19 16:00 Mechanical Ventilator 02/02/19 15:00 117 20 40 Intake and Output 02/02/19 02/03/19 19:00 07:00 Intake Total 2025.833 ml 2357.493 ml Output Total 650 ml 100 ml Balance 1375.833 ml 2257.493 ml Free Water 300 ml 200 ml IV Total 1120.833 ml 1552.493 ml Tube Feeding 605 ml 605 ml Output Urine Total 650 ml Stool Total 100 ml # Bowel Movements 5 3 Laboratory Tests Test 02/03/19 03:00 02/03/19 08:30 Sodium Level 144 MMOL/L (136-145) Potassium Level 3.9 MMOL/L (3.5-5.1) Chloride Level 116 MMOL/L (98-107) H Carbon Dioxide Level 23 MMOL/L (21-32) Anion Gap 5 mmol/L (5-15) Blood Urea Nitrogen 18 mg/dL (7-18) Creatinine 0.4 MG/DL (0.55-1.30) L Estimat Glomerular Filtration Rate > 60 mL/min (>60) Glucose Level 166 MG/DL (74-106) H Calcium Level 6.9 MG/DL (8.5-10.1) L Phosphorus Level 2.8 MG/DL (2.5-4.9) Magnesium Level 1.9 MG/DL (1.8-2.4) White Blood Count 16.7 K/UL (4.8-10.8) H Red Blood Count 3.18 M/UL (4.70-6.10) L Hemoglobin 9.4 G/DL (14.2-18.0) L Hematocrit 29.5 % (42.0-52.0) L Mean Corpuscular Volume 93 FL (80-99) Mean Corpuscular Hemoglobin 29.6 PG (27.0-31.0) Mean Corpuscular Hemoglobin Concent 32.0 G/DL (32.0-36.0) Red Cell Distribution Width 17.1 % (11.6-14.8) H Platelet Count 323 K/UL (150-450) Mean Platelet Volume 7.2 FL (6.5-10.1) Neutrophils (%) (Auto) 68.8 % (45.0-75.0) Lymphocytes (%) (Auto) 14.9 % (20.0-45.0) L Monocytes (%) (Auto) 5.6 % (1.0-10.0) Eosinophils (%) (Auto) 10.2 % (0.0-3.0) H Basophils (%) (Auto) 0.5 % (0.0-2.0) Microbiology Date/Time Source Procedure Growth Status 02/02/19 18:20 Straight Cath Urine Culture - Preliminary NO GROWTH Resulted Height (Feet): 5 Height (Inches): 6.00 Weight (Pounds): 213 General Appearance: no apparent distress Cardiovascular: normal rate Respiratory/Chest: normal breath sounds, no respiratory distress Abdominal Exam: normal bowel sounds, non tender, soft, GT site Extremities: non-tender Good Garcia DE ICER ELEMENT WINDER Feb 03, 2019 13:57
--- NOTE | 2019-02-03 14:36 | Infectious Diseases Prog Note ---
Assessment/Plan Assessment/Plan 63 yo male who was sent to the ED on 01/21/19 for hypotension, fever and respiratory distress. Fever, SP Leukocytosis, fluctuating Gram negative Sepsis GBS and MRSA bacteremia 01/22 BCx: ESBL K pneumoniae, GBS, MRSA 01/22 CXR: bilateral opacities 01/22 UA positive. UCx VRE 01/23 CXR: Redemonstration of bibasilar patchy airspace opacities. Unchanged pulmonary vascular congestion. No pneumothorax. Stable small left pleural effusion. 01/24 Bcx: ngtd TTE negative but poor visualization 02/01 bcx: 02/02 Ucx: 02/02 sputum cx: 01/22 C diff positive 01/26 KUB: Nonspecific bowel gas pattern. Gastrostomy. No definite acute process 01/27 CT Pelvis: Severe proctocolitis with wall thicken in and inflammation as well as luminal distention due to fecal impaction. Rectal tube noted in place. Decubitus ulcer 01/27 CT Pelvis: No evidence of abscess or CT evidence for acute osteomyelitis /erosion of the coccyx/sacrum in the area of the clinically demonstrated decubitus ulceration/wound. The wound itself is not well seen on CT. Rash eosinophils on peripheral CBC VRE colonization DM COPD CVA Dementia Parkinsons Cardiac issues Vent dependent with trach G tube PLAN: - continue meropenem # - fidaxomicin #05/30 - Vancomycin IV # - 02/01 DC vanc po to 500mg #01/20 SP vanc po 125mg # - 02/01 DC Flagyl IV # - 01/28 SP Daptomycin # - 01/24 DC vancomycin IV #2 - f/u cultures - repeat bcx, sputum cx, UA, ucx, urine legionella - Monitor CBC and Temps if leukocytosis not improve, will consider HUONG given poor TTE quality and pt with MRSA bacteremia Thank you for this consult. [facility] will continue to follow the patient with you during this hospitalization. Subjective Allergies: Coded Allergies: OXYTETRACYCLINE (Unverified Allergy, Unknown, 09/05/13) PENICILLINS (Unverified Allergy, Unknown, 06/11/17) Tolerated one dose of Cefepime 06/07/17 Tolerated Cefdinir 06/10/17 Uncoded Allergies: PLASTIC TAPE (Allergy, Mild, ITCHINESS, 08/08/15) MEDICAL TAPE (Allergy, Unknown, 12/10/16) Subjective Afebrile. WBC better BP low Still liquidy stool but output decreasing Objective Vital Signs Last 24 Hour Vital Signs Date Time Temp Pulse Resp B/P (MAP) Pulse Ox O2 Delivery O2 Flow Rate FiO2 02/03/19 13:01 86 22 40 02/03/19 12:00 97.5 86 22 94/48 (63) 100 02/03/19 12:00 Mechanical Ventilator 02/03/19 12:00 40 02/03/19 11:58 81 02/03/19 11:11 83 22 40 02/03/19 09:16 83 19 40 02/03/19 08:00 96.8 89 16 96/65 (75) 98 02/03/19 08:00 Mechanical Ventilator 02/03/19 08:00 40 02/03/19 08:00 75 02/03/19 07:28 104 23 40 02/03/19 06:07 97 16 40 02/03/19 04:05 90 02/03/19 04:00 Mechanical Ventilator 02/03/19 04:00 40 02/03/19 04:00 98.0 103 16 100/57 (71) 100 02/03/19 04:00 91 02/03/19 03:30 98 16 40 02/03/19 01:15 94 22 40 02/03/19 00:00 40 02/03/19 00:00 Mechanical Ventilator 02/03/19 00:00 98.1 103 24 117/63 (81) 99 02/03/19 00:00 108 02/02/19 23:37 109 21 40 02/02/19 20:58 107 21 40 02/02/19 20:00 99.0 118 23 102/61 (75) 96 02/02/19 20:00 Mechanical Ventilator 02/02/19 19:07 115 02/02/19 19:00 108 22 40 02/02/19 17:40 115 21 40 02/02/19 16:00 40 02/02/19 16:00 97.7 117 21 98/51 (67) 97 02/02/19 16:00 119 02/02/19 16:00 Mechanical Ventilator 02/02/19 15:00 117 20 40 Height (Feet): 5 Height (Inches): 6.00 Weight (Pounds): 213 Objective Gen: NAD CV: RRR Resp: coarse. ventilatory sounds Abd: soft. Distended. Hypoactive BS+. G tube Ext: contracted Neuro: not alert Microbiology Date/Time Source Procedure Growth Status 02/01/19 12:40 Blood Blood Culture - Preliminary NO GROWTH AFTER 24 HOURS Resulted 02/01/19 12:30 Blood Blood Culture - Preliminary NO GROWTH AFTER 24 HOURS Resulted 02/02/19 18:00 Sputum Gram Stain - Final Resulted 02/02/19 18:00 Sputum Sputum Culture Pending Resulted 02/02/19 18:20 Straight Cath Urine Culture - Preliminary NO GROWTH Resulted Laboratory Tests Test 02/03/19 03:00 02/03/19 08:30 Sodium Level 144 MMOL/L (136-145) Potassium Level 3.9 MMOL/L (3.5-5.1) Chloride Level 116 MMOL/L (98-107) H Carbon Dioxide Level 23 MMOL/L (21-32) Anion Gap 5 mmol/L (5-15) Blood Urea Nitrogen 18 mg/dL (7-18) Creatinine 0.4 MG/DL (0.55-1.30) L Estimat Glomerular Filtration Rate > 60 mL/min (>60) Glucose Level 166 MG/DL (74-106) H Calcium Level 6.9 MG/DL (8.5-10.1) L Phosphorus Level 2.8 MG/DL (2.5-4.9) Magnesium Level 1.9 MG/DL (1.8-2.4) White Blood Count 16.7 K/UL (4.8-10.8) H Red Blood Count 3.18 M/UL (4.70-6.10) L Hemoglobin 9.4 G/DL (14.2-18.0) L Hematocrit 29.5 % (42.0-52.0) L Mean Corpuscular Volume 93 FL (80-99) Mean Corpuscular Hemoglobin 29.6 PG (27.0-31.0) Mean Corpuscular Hemoglobin Concent 32.0 G/DL (32.0-36.0) Red Cell Distribution Width 17.1 % (11.6-14.8) H Platelet Count 323 K/UL (150-450) Mean Platelet Volume 7.2 FL (6.5-10.1) Neutrophils (%) (Auto) 68.8 % (45.0-75.0) Lymphocytes (%) (Auto) 14.9 % (20.0-45.0) L Monocytes (%) (Auto) 5.6 % (1.0-10.0) Eosinophils (%) (Auto) 10.2 % (0.0-3.0) H Basophils (%) (Auto) 0.5 % (0.0-2.0) Current Medications Medications (Trade) Dose Ordered Sig/Sima Route PRN Reason Start Time Stop Time Status Last Admin Dose Admin Acetaminophen (Tylenol) 650 mg Q4H PRN GT Mild Pain/Temp > 100.5 01/24/19 15:28 02/23/19 15:27 01/31/19 20:31 Acetaminophen/ Hydrocodone Bitart ([place] ) 1 tab Q4H PRN GT For Pain 01/31/19 22:30 02/07/19 22:29 Ascorbic Acid (Vitamin C) 250 mg DAILY GT 01/25/19 09:00 02/24/19 08:59 02/03/19 08:45 Chlorhexidine Gluconate (Paulina-Hex 2%) 1 applic DAILY@1999 TOPIC 02/01/19 20:00 03/03/19 19:59 02/02/19 20:32 Dextrose (Dextrose 50%) 25 ml Q30M PRN IV Hypoglycemia 01/24/19 15:30 02/21/19 06:29 Dextrose (Dextrose 50%) 50 ml Q30M PRN IV Hypoglycemia 01/24/19 15:30 02/21/19 06:29 Diphenhydramine HCl (Benadryl Cream) 1 applic TIDPRN PRN TOPIC Itching 02/01/19 15:00 03/03/19 14:59 02/02/19 11:25 Famotidine (Pepcid I.v.) 20 mg Q12HR IVP 01/24/19 21:00 02/23/19 20:59 02/03/19 08:44 Fidaxomicin (Dificid) 200 mg EVERY 12 HOURS ORAL 02/01/19 12:00 02/10/19 21:01 02/03/19 08:45 Insulin Aspart (NovoLOG) Q6HR SUBQ 01/26/19 12:00 02/21/19 07:29 02/03/19 14:06 Lorazepam (Ativan 2mg/ml 1ml) 2 mg Q4H PRN IV For Anxiety 01/29/19 14:30 02/05/19 14:29 01/29/19 14:38 Meropenem 1 gm/ Sodium Chloride 55 ml @ 110 mls/hr Q12H IVPB 01/24/19 17:00 02/04/19 23:59 02/03/19 06:05 Midodrine (Pro-Amatine) 2.5 mg THREE TIMES A DAY GT 01/24/19 18:00 02/21/19 12:59 02/03/19 14:04 Sodium Chloride 1,000 ml @ 100 mls/hr Q10H IV 01/26/19 17:00 02/25/19 16:59 02/03/19 14:05 Tamsulosin HCl (Flomax) 0.4 mg BID ORAL 01/24/19 18:00 02/21/19 09:59 02/03/19 08:45 Vancomycin HCl (Vanco rx to dose) 1 ea DAILY PRN MISC Per rx protocol 01/29/19 15:30 02/28/19 15:29 Vancomycin/Sodium Chloride 275 ml @ 183.333 mls/hr Q12H IVPB 01/29/19 16:30 02/05/19 23:59 02/03/19 04:35 Mukesh Betancourt MD Feb 03, 2019 14:36
[2019-02-03 16:00] VITALS: BP 112/62
[2019-02-03] MEDS ORDERED: NS 275ml ONE (16:23)
[2019-02-03] MEDS ORDERED: Tubing IV Secondary IV ONE (16:23)
--- NOTE | 2019-02-03 19:26 | NUR ---
HAND-OFF: Report given to Abril Bautista RN.
--- NOTE | 2019-02-03 19:52 | NUR ---
NURSE NOTES: received pt from Hieu AUSTIN., pt is resting on the bed, and AO x4. refusing to put on the SCD. pt is in RA and O2sat 98% without SOB. pt's right IV site is intact, patent, and clean. pt states no pain at this moment. bed at the lowest position, alarmed, and locked. call light within reach. will continue to monitor pt with plan of care.
[2019-02-03 20:00] VITALS: BP 94/57
[2019-02-03] MEDS: Dyna-Hex 2% Top Sol 2oz TOPIC SCH (20:34)
[2019-02-04] VITALS: BP 90/51
--- NOTE | 2019-02-04 02:45 | Progress Note ---
DATE: 02/03/2019 SUBJECTIVE: The patient has low-grade fever. His tachycardia resolved. He continued to have diarrhea, but his condition markedly improved and he states he does not look toxic. PHYSICAL EXAMINATION: VITAL SIGNS: Blood pressure is 94/57, his pulse is 98, respirations 19, and temperature 99. HEENT: Eyes were normal. ENT, mucous membranes were moist and intact. NECK: Supple with no JVD without lymph nodes. Tracheostomy site is clean. LUNGS: Clear without rhonchi, rales, or wheezing. Secretions are small, thin, and clay[place]. HEART: Normal sounds with regular beat. There is mostly tachycardia at rest. ABDOMEN: Soft, nontender with normal bowel sounds. Gastrostomy site is clean. EXTREMITIES: Warm without cyanosis, clubbing, or edema. LABORATORY AND DIAGNOSTIC DATA: Hemoglobin is 9.5, hematocrit 29.5 with MCV of 93, WBC of 16.7, and platelets is 323,000. WBC was 26.1 yesterday, 28.6 on 02/01/2019. BUN and creatinine is 18 and 0.4 respectively. His sodium is 144, potassium 3.9, chloride 116, CO2 is 23, and calcium is 6.9. His phosphorus is 2.8, and magnesium is 1.9. Urine culture has no growth. Sputum culture is still pending. Blood culture taken on 02/01/2019 no growth. IMPRESSION: The patient's condition markedly improved since the patient infection in the rectosigmoid area. Repeat laboratory tests will be done in the a.m. Boris Arevalo M.D. DR: Lilibeth JOB#: [id number] CC:
[2019-02-04 04:00] VITALS: BP 103/54
[2019-02-04] MEDS: Vancomycin 1.25gm/NS Premix IVPB SCH ×2 (05:11→16:00)
[2019-02-04] MEDS: Meropenem 1 GM in NS 55 ML IVPB SCH ×2 (05:11→18:36)
[2019-02-04] MEDS: NovoLOG Insulin Flexpen SUBQ SCH ×5 (05:14→23:50)
--- NOTE | 2019-02-04 06:17 | NUR ---
NURSE NOTES: pt refuses to get draw blood. pt states " I am going to go home tomorrow anyway, so I do not need to get tested." told pt regarding benefits and risk of not getting lab work done. will continue to monitor pt. Addendum: 02/04/19 at 0623 by LALI MAGALLON RN wrong Pt
--- NOTE | 2019-02-04 06:30 | NUR ---
RESPIRATORY NOTE: Received pt on vent: AC 16-500ml-40%-peep 5. Pt is trach dependent with Portex, cuffed size 7.0, secured by trach tie/guard. Pt is obtunded, unable to follow commands. No SOB or resp distress noted at this time. Fabricio rhonchi diminished heard upon auscultation, suctioned small amounts of thick dias white secretions without incidents. Alarms are set and audible, vent is plugged into the red outlet, ambu bag is at bedside. Will continue to monitor and suction q2h and as needed.
[2019-02-04 06:34] LABS: BASOPHILS % (AUTO) 0.6 % (0.0-2.0); EOSINOPHILS % (AUTO) 9.6 % (0.0-3.0); HEMATOCRIT 34.5 % (42.0-52.0); HEMOGLOBIN 11.1 G/DL (14.2-18.0); MEAN CORPUSCULAR VOLUME 92 FL (80-99); MONOCYTES % (AUTO) 4.2 % (1.0-10.0); NEUTROPHILS % (AUTO) 70.6 % (45.0-75.0); PLATELET COUNT 305 K/UL (150-450); RED BLOOD COUNT 3.74 M/UL (4.70-6.10); RED CELL DISTRIBUTION WIDTH 16.7 % (11.6-14.8); WHITE BLOOD COUNT 16.1 K/UL (4.8-10.8)
[2019-02-04 06:48] LABS: ANION GAP 1 mmol/L (5-15); BLOOD UREA NITROGEN 19 mg/dL (7-18); CALCIUM 7.2 MG/DL (8.5-10.1); CARBON DIOXIDE 25 MMOL/L (21-32); CHLORIDE 117 MMOL/L (98-107); CREATININE 0.3 MG/DL (0.55-1.30); POTASSIUM 4.1 MMOL/L (3.5-5.1); SODIUM 143 MMOL/L (136-145)
--- NOTE | 2019-02-04 07:21 | Urology Progress Note ---
Assessment/Plan Status: unchanged Assessment/Plan: 1. Sepsis. 2. Incontinence. 3. Neurogenic bladder. 4. Proteinuria. 5. Hematuria. 6. Pyuria. 7. History of nephrolithiasis. 8. Urethral stricture. maintain hernández, do not remove switch to larger size hernández at some point hand irrigated and do PRN abx as ordered, ID on case f/u on last blood cx on flomax BID Subjective Allergies: Coded Allergies: OXYTETRACYCLINE (Unverified Allergy, Unknown, 09/05/13) PENICILLINS (Unverified Allergy, Unknown, 06/11/17) Tolerated one dose of Cefepime 06/07/17 Tolerated Cefdinir 06/10/17 Uncoded Allergies: PLASTIC TAPE (Allergy, Mild, ITCHINESS, 08/08/15) MEDICAL TAPE (Allergy, Unknown, 12/10/16) Subjective all noted Objective Last 24 Hour Vital Signs Date Time Temp Pulse Resp B/P (MAP) Pulse Ox O2 Delivery O2 Flow Rate FiO2 02/04/19 06:30 85 21 40 02/04/19 05:09 87 23 40 02/04/19 04:07 98 02/04/19 04:00 Mechanical Ventilator 02/04/19 04:00 40 02/04/19 04:00 97.4 97 25 103/54 (70) 100 02/04/19 02:50 91 21 40 02/04/19 00:59 88 17 40 02/04/19 00:00 Mechanical Ventilator 02/04/19 00:00 98.0 88 20 90/51 (64) 100 02/03/19 23:35 95 02/03/19 23:11 95 25 40 02/03/19 20:55 85 22 40 02/03/19 20:00 Mechanical Ventilator 02/03/19 20:00 99.0 98 19 94/57 (69) 100 02/03/19 20:00 40 02/03/19 19:55 89 02/03/19 18:48 87 23 40 02/03/19 17:29 94 22 40 02/03/19 16:00 Mechanical Ventilator 02/03/19 16:00 90 02/03/19 16:00 97.7 98 16 112/62 (79) 100 02/03/19 16:00 40 02/03/19 15:30 89 21 40 02/03/19 13:01 86 22 40 02/03/19 12:00 97.5 86 22 94/48 (63) 100 02/03/19 12:00 Mechanical Ventilator 02/03/19 12:00 40 02/03/19 11:58 81 02/03/19 11:11 83 22 40 02/03/19 09:16 83 19 40 02/03/19 08:00 96.8 89 16 96/65 (75) 98 02/03/19 08:00 Mechanical Ventilator 02/03/19 08:00 40 02/03/19 08:00 75 02/03/19 07:28 104 23 40 Intake and Output 02/03/19 02/04/19 18:59 06:59 Intake Total 960 ml 1965 ml Output Total 900 ml 320 ml Balance 60 ml 1645 ml Free Water 300 ml 200 ml IV Total 1105 ml Tube Feeding 660 ml 660 ml Output Urine Total 600 ml Stool Total 300 ml 320 ml # Bowel Movements 3 Microbiology Date/Time Source Procedure Growth Status 02/01/19 12:40 Blood Blood Culture - Preliminary NO GROWTH AFTER 48 HOURS Resulted 02/02/19 18:00 Sputum Gram Stain - Final Resulted 02/02/19 18:00 Sputum Sputum Culture Pending Resulted 01/22/19 17:23 Stool Clostridium difficile Toxin Assay - Final Complete 02/02/19 18:20 Straight Cath Urine Culture - Preliminary NO GROWTH Resulted 01/22/19 02:10 Rectum - Final Escherichia Coli - Cre Complete Current Medications Medications (Trade) Dose Ordered Sig/Sima Route PRN Reason Start Time Stop Time Status Last Admin Dose Admin Acetaminophen (Tylenol) 650 mg Q4H PRN GT Mild Pain/Temp > 100.5 01/24/19 15:28 02/23/19 15:27 01/31/19 20:31 Acetaminophen/ Hydrocodone Bitart ([place] 10/325) 1 tab Q4H PRN GT For Pain 01/31/19 22:30 02/07/19 22:29 Ascorbic Acid (Vitamin C) 250 mg DAILY GT 01/25/19 09:00 02/24/19 08:59 02/03/19 08:45 Chlorhexidine Gluconate (Paulina-Hex 2%) 1 applic DAILY@1999 TOPIC 02/01/19 20:00 03/03/19 19:59 02/03/19 20:34 Dextrose (Dextrose 50%) 25 ml Q30M PRN IV Hypoglycemia 01/24/19 15:30 02/21/19 06:29 Dextrose (Dextrose 50%) 50 ml Q30M PRN IV Hypoglycemia 01/24/19 15:30 02/21/19 06:29 Diphenhydramine HCl (Benadryl Cream) 1 applic TIDPRN PRN TOPIC Itching 02/01/19 15:00 03/03/19 14:59 02/02/19 11:25 Famotidine (Pepcid I.v.) 20 mg Q12HR IVP 01/24/19 21:00 02/23/19 20:59 02/03/19 20:34 Fidaxomicin (Dificid) 200 mg EVERY 12 HOURS ORAL 02/01/19 12:00 02/10/19 21:01 02/03/19 20:34 Insulin Aspart (NovoLOG) Q6HR SUBQ 01/26/19 12:00 02/21/19 07:29 02/04/19 05:14 Lorazepam (Ativan 2mg/ml 1ml) 2 mg Q4H PRN IV For Anxiety 01/29/19 14:30 02/05/19 14:29 01/29/19 14:38 Meropenem 1 gm/ Sodium Chloride 55 ml @ 110 mls/hr Q12H IVPB 01/24/19 17:00 02/04/19 23:59 02/04/19 05:11 Midodrine (Pro-Amatine) 2.5 mg THREE TIMES A DAY GT 01/24/19 18:00 02/21/19 12:59 02/03/19 17:19 Sodium Chloride 1,000 ml @ 100 mls/hr Q10H IV 01/26/19 17:00 02/25/19 16:59 02/04/19 01:32 Tamsulosin HCl (Flomax) 0.4 mg BID ORAL 01/24/19 18:00 02/21/19 09:59 02/03/19 17:19 Vancomycin HCl (Vanco rx to dose) 1 ea DAILY PRN MISC Per rx protocol 01/29/19 15:30 02/28/19 15:29 Vancomycin/Sodium Chloride 275 ml @ 183.333 mls/hr Q12H IVPB 01/29/19 16:30 02/05/19 23:59 02/04/19 05:11 Laboratory Tests 02/03/19 08:30: White Blood Count 16.7H, Red Blood Count 3.18L, Hemoglobin 9.4L, Hematocrit 29.5L, Mean Corpuscular Volume 93, Mean Corpuscular Hemoglobin 29.6, Mean Corpuscular Hemoglobin Concent 32.0, Red Cell Distribution Width 17.1H, Platelet Count 323, Mean Platelet Volume 7.2, Neutrophils (%) (Auto) 68.8, Lymphocytes (%) (Auto) 14.9L, Monocytes (%) (Auto) 5.6, Eosinophils (%) (Auto) 10.2H, Basophils (%) (Auto) 0.5 02/04/19 06:18: White Blood Count 16.1H, Red Blood Count 3.74L, Hemoglobin 11.1L, Hematocrit 34.5L, Mean Corpuscular Volume 92, Mean Corpuscular Hemoglobin 29.6, Mean Corpuscular Hemoglobin Concent 32.0, Red Cell Distribution Width 16.7H, Platelet Count 305, Mean Platelet Volume 7.1, Neutrophils (%) (Auto) 70.6, Lymphocytes (%) (Auto) 15.0L, Monocytes (%) (Auto) 4.2, Eosinophils (%) (Auto) 9.6H, Basophils (%) (Auto) 0.6, Sodium Level 143, Potassium Level 4.1, Chloride Level 117H, Carbon Dioxide Level 25, Anion Gap 1L, Blood Urea Nitrogen 19H, Creatinine 0.3L, Estimat Glomerular Filtration Rate > 60, Glucose Level 153H, Calcium Level 7.2L Height (Feet): 5 Height (Inches): 6.00 Weight (Pounds): 210 Objective exam stable hernández indwelling, urine yellow/abhay no active bleeding at meatus renal u/s (01/23) noted pelvic CT (01/28) noted Jake Pierre MD Feb 04, 2019 07:21
--- NOTE | 2019-02-04 07:25 | NUR ---
NURSE NOTES: Received report from Abril Bautista RN. Patient is resting in bed, in stable condition. No s/sx of SOB, breathing is even and unlabored, vent settings are as ordered. Do not observe any presence of pain or discomfort at this time. Bed is in lowest position, brakes engaged. Call light is kept within easy reach. Will continue to monitor patient.
--- NOTE | 2019-02-04 07:36 | NUR ---
HAND-OFF: Report given to Ruddy AUSTIN.
[2019-02-04 08:00] VITALS: BP 101/69
--- NOTE | 2019-02-04 08:00 | Infectious Diseases Prog Note ---
Assessment/Plan Assessment/Plan 63 yo male who was sent to the ED on 01/21/19 for hypotension, fever and respiratory distress. Fever, SP Leukocytosis, fluctuating Gram negative Sepsis GBS and MRSA bacteremia Possible PNA--CXR low volume, pt contracted, difficult to determine infiltrates 01/22 BCx: ESBL K pneumoniae, GBS, MRSA 01/22 CXR: bilateral opacities 01/22 UA positive. UCx VRE 01/23 CXR: Redemonstration of bibasilar patchy airspace opacities. Unchanged pulmonary vascular congestion. No pneumothorax. Stable small left pleural effusion. 01/24 Bcx: ngtd TTE negative but poor visualization 02/01 bcx: 02/02 Ucx: 02/02 sputum cx: GNR 01/22 C diff positive 01/26 KUB: Nonspecific bowel gas pattern. Gastrostomy. No definite acute process 01/27 CT Pelvis: Severe proctocolitis with wall thicken in and inflammation as well as luminal distention due to fecal impaction. Rectal tube noted in place. Decubitus ulcer 01/27 CT Pelvis: No evidence of abscess or CT evidence for acute osteomyelitis /erosion of the coccyx/sacrum in the area of the clinically demonstrated decubitus ulceration/wound. The wound itself is not well seen on CT. Rash eosinophils on peripheral CBC VRE colonization DM COPD CVA Dementia Parkinsons Cardiac issues Vent dependent with trach G tube PLAN: - continue meropenem #14...f/u on sputum GNR - fidaxomicin #/10 - Vancomycin IV # - 02/01 DC vanc po to 500mg # - 01/20 SP vanc po 125mg # - 02/01 DC Flagyl IV # - 01/28 SP Daptomycin #5 - 01/24 DC vancomycin IV #2 - f/u cultures - repeat bcx, sputum cx, UA, ucx, urine legionella - Monitor CBC and Temps recommend HUONG given MRSA bacteremia and persistent leukocytosis Thank you for this consult. [facility] will continue to follow the patient with you during this hospitalization. Subjective Allergies: Coded Allergies: OXYTETRACYCLINE (Unverified Allergy, Unknown, 09/05/13) PENICILLINS (Unverified Allergy, Unknown, 06/11/17) Tolerated one dose of Cefepime 06/07/17 Tolerated Cefdinir 06/10/17 Uncoded Allergies: PLASTIC TAPE (Allergy, Mild, ITCHINESS, 08/08/15) MEDICAL TAPE (Allergy, Unknown, 12/10/16) Subjective Afebrile. WBC better. BP still low. FiO2 stable. ~400cc stool output overnight Objective Vital Signs Last 24 Hour Vital Signs Date Time Temp Pulse Resp B/P (MAP) Pulse Ox O2 Delivery O2 Flow Rate FiO2 02/04/19 06:30 85 21 40 02/04/19 05:09 87 23 40 02/04/19 04:07 98 02/04/19 04:00 Mechanical Ventilator 02/04/19 04:00 40 02/04/19 04:00 97.4 97 25 103/54 (70) 100 02/04/19 02:50 91 21 40 02/04/19 00:59 88 17 40 02/04/19 00:00 Mechanical Ventilator 02/04/19 00:00 98.0 88 20 90/51 (64) 100 02/03/19 23:35 95 02/03/19 23:11 95 25 40 02/03/19 20:55 85 22 40 02/03/19 20:00 Mechanical Ventilator 02/03/19 20:00 99.0 98 19 94/57 (69) 100 02/03/19 20:00 40 02/03/19 19:55 89 02/03/19 18:48 87 23 40 02/03/19 17:29 94 22 40 02/03/19 16:00 Mechanical Ventilator 02/03/19 16:00 90 02/03/19 16:00 97.7 98 16 112/62 (79) 100 02/03/19 16:00 40 02/03/19 15:30 89 21 40 02/03/19 13:01 86 22 40 02/03/19 12:00 97.5 86 22 94/48 (63) 100 02/03/19 12:00 Mechanical Ventilator 02/03/19 12:00 40 02/03/19 11:58 81 02/03/19 11:11 83 22 40 02/03/19 09:16 83 19 40 02/03/19 08:00 96.8 89 16 96/65 (75) 98 02/03/19 08:00 Mechanical Ventilator 02/03/19 08:00 40 02/03/19 08:00 75 Height (Feet): 5 Height (Inches): 6.00 Weight (Pounds): 210 Objective Gen: NAD CV: RRR Resp: coarse. ventilatory sounds Abd: soft. Distended. Hypoactive BS+. G tube Ext: contracted Neuro: not alert Microbiology Date/Time Source Procedure Growth Status 02/01/19 12:40 Blood Blood Culture - Preliminary NO GROWTH AFTER 48 HOURS Resulted 02/01/19 12:30 Blood Blood Culture - Preliminary NO GROWTH AFTER 48 HOURS Resulted 02/02/19 18:00 Sputum Gram Stain - Final Resulted 02/02/19 18:00 Sputum Sputum Culture Pending Resulted 02/02/19 18:20 Straight Cath Urine Culture - Preliminary NO GROWTH AFTER 24 HOURS Resulted Laboratory Tests Test 02/03/19 08:30 02/04/19 06:18 White Blood Count 16.7 K/UL (4.8-10.8) H 16.1 K/UL (4.8-10.8) H Red Blood Count 3.18 M/UL (4.70-6.10) L 3.74 M/UL (4.70-6.10) L Hemoglobin 9.4 G/DL (14.2-18.0) L 11.1 G/DL (14.2-18.0) L Hematocrit 29.5 % (42.0-52.0) L 34.5 % (42.0-52.0) L Mean Corpuscular Volume 93 FL (80-99) 92 FL (80-99) Mean Corpuscular Hemoglobin 29.6 PG (27.0-31.0) 29.6 PG (27.0-31.0) Mean Corpuscular Hemoglobin Concent 32.0 G/DL (32.0-36.0) 32.0 G/DL (32.0-36.0) Red Cell Distribution Width 17.1 % (11.6-14.8) H 16.7 % (11.6-14.8) H Platelet Count 323 K/UL (150-450) 305 K/UL (150-450) Mean Platelet Volume 7.2 FL (6.5-10.1) 7.1 FL (6.5-10.1) Neutrophils (%) (Auto) 68.8 % (45.0-75.0) 70.6 % (45.0-75.0) Lymphocytes (%) (Auto) 14.9 % (20.0-45.0) L 15.0 % (20.0-45.0) L Monocytes (%) (Auto) 5.6 % (1.0-10.0) 4.2 % (1.0-10.0) Eosinophils (%) (Auto) 10.2 % (0.0-3.0) H 9.6 % (0.0-3.0) H Basophils (%) (Auto) 0.5 % (0.0-2.0) 0.6 % (0.0-2.0) Sodium Level 143 MMOL/L (136-145) Potassium Level 4.1 MMOL/L (3.5-5.1) Chloride Level 117 MMOL/L (98-107) H Carbon Dioxide Level 25 MMOL/L (21-32) Anion Gap 1 mmol/L (5-15) L Blood Urea Nitrogen 19 mg/dL (7-18) H Creatinine 0.3 MG/DL (0.55-1.30) L Estimat Glomerular Filtration Rate > 60 mL/min (>60) Glucose Level 153 MG/DL (74-106) H Calcium Level 7.2 MG/DL (8.5-10.1) L Current Medications Medications (Trade) Dose Ordered Sig/Sima Route PRN Reason Start Time Stop Time Status Last Admin Dose Admin Acetaminophen (Tylenol) 650 mg Q4H PRN GT Mild Pain/Temp > 100.5 01/24/19 15:28 02/23/19 15:27 01/31/19 20:31 Acetaminophen/ Hydrocodone Bitart ([place] 10325) 1 tab Q4H PRN GT For Pain 01/31/19 22:30 02/07/19 22:29 Ascorbic Acid (Vitamin C) 250 mg DAILY GT 01/25/19 09:00 02/24/19 08:59 02/03/19 08:45 Chlorhexidine Gluconate (Paulina-Hex 2%) 1 applic DAILY@1999 TOPIC 02/01/19 20:00 03/03/19 19:59 02/03/19 20:34 Dextrose (Dextrose 50%) 25 ml Q30M PRN IV Hypoglycemia 01/24/19 15:30 02/21/19 06:29 Dextrose (Dextrose 50%) 50 ml Q30M PRN IV Hypoglycemia 01/24/19 15:30 02/21/19 06:29 Diphenhydramine HCl (Benadryl Cream) 1 applic TIDPRN PRN TOPIC Itching 02/01/19 15:00 03/03/19 14:59 02/02/19 11:25 Famotidine (Pepcid I.v.) 20 mg Q12HR IVP 01/24/19 21:00 02/23/19 20:59 02/03/19 20:34 Fidaxomicin (Dificid) 200 mg EVERY 12 HOURS ORAL 02/01/19 12:00 02/10/19 21:01 02/03/19 20:34 Insulin Aspart (NovoLOG) Q6HR SUBQ 01/26/19 12:00 02/21/19 07:29 02/04/19 05:14 Lorazepam (Ativan 2mg/ml 1ml) 2 mg Q4H PRN IV For Anxiety 01/29/19 14:30 02/05/19 14:29 01/29/19 14:38 Meropenem 1 gm/ Sodium Chloride 55 ml @ 110 mls/hr Q12H IVPB 01/24/19 17:00 02/04/19 23:59 02/04/19 05:11 Midodrine (Pro-Amatine) 2.5 mg THREE TIMES A DAY GT 01/24/19 18:00 02/21/19 12:59 02/03/19 17:19 Sodium Chloride 1,000 ml @ 100 mls/hr Q10H IV 01/26/19 17:00 02/25/19 16:59 02/04/19 01:32 Tamsulosin HCl (Flomax) 0.4 mg BID ORAL 01/24/19 18:00 02/21/19 09:59 02/03/19 17:19 Vancomycin HCl (Vanco rx to dose) 1 ea DAILY PRN MISC Per rx protocol 01/29/19 15:30 02/28/19 15:29 Vancomycin/Sodium Chloride 275 ml @ 183.333 mls/hr Q12H IVPB 01/29/19 16:30 02/05/19 23:59 02/04/19 05:11 Mukesh Betancourt MD Feb 04, 2019 08:00
[2019-02-04] MEDS: Tamsulosin 0.4mg cap ORAL SCH ×2 (08:59→18:05)
[2019-02-04] MEDS: Ascorbic Acid 500mg tab GT SCH (08:59)
--- NOTE | 2019-02-04 10:02 | NUR ---
NURSE NOTES: Dr. Betancourt at nurse station, made MD aware that patient's current temperature is 93.5 F Axillary, warming measures, harlan hugger. Dr. Betancourt acknowledged, will keep Dr. Betancourt updated. Noted. Charge nurse aware. Will continue to monitor patient.
--- NOTE | 2019-02-04 10:29 | NUR ---
NURSE NOTES: Dr. Rudd seen and examined patient at bedside. Made MD aware that patient's current axillary temperature is 93.5 F and is in harlan hugger, informed MD that patient is edematous and skin is weeping. Dr. Rudd acknowledged, no new orders given at this time. Will continue to monitor patient.
--- NOTE | 2019-02-04 11:20 | Nephrology Progress Note ---
Assessment/Plan Problem List: (1) Hypokalemia (2) HARDEEP (acute kidney injury) (3) Sepsis (4) Hyponatremia Assessment HARDEEP (acute kidney injury) HypoNatremia Septic shock Others: HCAP (healthcare-associated pneumonia) Chronic respiratory failure Ventilator dependence Vegetative state History of CVA (cerebrovascular accident) Feeding by G-tube HTN (hypertension) Cerebral vascular disease Plan K Phos mag as needed Hydrate monitor renal parameters Midodrine Antibiotics Avoid nephrotoxics Brooks could not be put in due to resistance start flomax per order Subjective ROS Limited/Unobtainable: Yes Objective Objective Last 24 Hour Vital Signs Date Time Temp Pulse Resp B/P (MAP) Pulse Ox O2 Delivery O2 Flow Rate FiO2 02/04/19 10:36 89 22 40 02/04/19 09:03 88 23 40 02/04/19 08:00 40 02/04/19 08:00 99 02/04/19 08:00 93.5 89 22 101/69 (80) 100 02/04/19 08:00 Mechanical Ventilator 02/04/19 06:30 85 21 40 02/04/19 05:09 87 23 40 02/04/19 04:07 98 02/04/19 04:00 Mechanical Ventilator 02/04/19 04:00 40 02/04/19 04:00 97.4 97 25 103/54 (70) 100 02/04/19 02:50 91 21 40 02/04/19 00:59 88 17 40 02/04/19 00:00 Mechanical Ventilator 02/04/19 00:00 98.0 88 20 90/51 (64) 100 02/03/19 23:35 95 02/03/19 23:11 95 25 40 02/03/19 20:55 85 22 40 02/03/19 20:00 Mechanical Ventilator 02/03/19 20:00 99.0 98 19 94/57 (69) 100 02/03/19 20:00 40 02/03/19 19:55 89 02/03/19 18:48 87 23 40 02/03/19 17:29 94 22 40 02/03/19 16:00 Mechanical Ventilator 02/03/19 16:00 90 02/03/19 16:00 97.7 98 16 112/62 (79) 100 02/03/19 16:00 40 02/03/19 15:30 89 21 40 02/03/19 13:01 86 22 40 02/03/19 12:00 97.5 86 22 94/48 (63) 100 02/03/19 12:00 Mechanical Ventilator 02/03/19 12:00 40 02/03/19 11:58 81 Intake and Output 02/03/19 02/04/19 19:00 07:00 Intake Total 1060 ml 1910 ml Output Total 900 ml 320 ml Balance 160 ml 1590 ml Free Water 300 ml 200 ml IV Total 100 ml 1105 ml Tube Feeding 660 ml 605 ml Output Urine Total 600 ml Stool Total 300 ml 320 ml # Bowel Movements 3 Laboratory Tests 02/04/19 06:18: White Blood Count 16.1H, Red Blood Count 3.74L, Hemoglobin 11.1L, Hematocrit 34.5L, Mean Corpuscular Volume 92, Mean Corpuscular Hemoglobin 29.6, Mean Corpuscular Hemoglobin Concent 32.0, Red Cell Distribution Width 16.7H, Platelet Count 305, Mean Platelet Volume 7.1, Neutrophils (%) (Auto) 70.6, Lymphocytes (%) (Auto) 15.0L, Monocytes (%) (Auto) 4.2, Eosinophils (%) (Auto) 9.6H, Basophils (%) (Auto) 0.6, Sodium Level 143, Potassium Level 4.1, Chloride Level 117H, Carbon Dioxide Level 25, Anion Gap 1L, Blood Urea Nitrogen 19H, Creatinine 0.3L, Estimat Glomerular Filtration Rate > 60, Glucose Level 153H, Calcium Level 7.2L Height (Feet): 5 Height (Inches): 6.00 Weight (Pounds): 210 General Appearance: no apparent distress EENT: other - trach Cardiovascular: normal rate Respiratory/Chest: decreased breath sounds Abdomen: distended Objective no change Sergey Rivera MD Feb 04, 2019 11:20
--- NOTE | 2019-02-04 11:49 | General Progress Note ---
Assessment/Plan Status: unchanged Assessment/Plan: (1) Clostridium difficile diarrhea ICD Codes: A04.72 - Enterocolitis due to Clostridium difficile, not specified as recurrent SNOMED: 6243658067986 (2) Severe sepsis ICD Codes: A41.9 - Sepsis, unspecified organism; R65.20 - Severe sepsis without septic shock SNOMED: 53402651 (3) Feeding by G-tube ICD Codes: Z93.1 - Feeding by G-tube SNOMED: 046504507 (4) Diarrhea ICD Codes: R19.7 - Diarrhea, unspecified SNOMED: 70578658 (5) Upper GI bleed ICD Codes: K92.2 - Gastrointestinal hemorrhage, unspecified SNOMED: 49745925 Assessment/Plan No plans for GI procedures at this time given sepsis. Monitor H&H, PRN transfusions Occult blood to rule out any GI bleed Hold PPI given C. difficile H2B Antibiotics per infectious diseases for C. difficile IV hydration plus electrolyte correction GTF Follow labs recent CT reviewed Subjective ROS Limited/Unobtainable: No Allergies: Coded Allergies: OXYTETRACYCLINE (Unverified Allergy, Unknown, 09/05/13) PENICILLINS (Unverified Allergy, Unknown, 06/11/17) Tolerated one dose of Cefepime 06/07/17 Tolerated Cefdinir 06/10/17 Uncoded Allergies: PLASTIC TAPE (Allergy, Mild, ITCHINESS, 08/08/15) MEDICAL TAPE (Allergy, Unknown, 12/10/16) Objective Last 24 Hour Vital Signs Date Time Temp Pulse Resp B/P (MAP) Pulse Ox O2 Delivery O2 Flow Rate FiO2 02/04/19 10:36 89 22 40 02/04/19 09:03 88 23 40 02/04/19 08:00 40 02/04/19 08:00 99 02/04/19 08:00 93.5 89 22 101/69 (80) 100 02/04/19 08:00 Mechanical Ventilator 02/04/19 06:30 85 21 40 02/04/19 05:09 87 23 40 02/04/19 04:07 98 02/04/19 04:00 Mechanical Ventilator 02/04/19 04:00 40 02/04/19 04:00 97.4 97 25 103/54 (70) 100 02/04/19 02:50 91 21 40 02/04/19 00:59 88 17 40 02/04/19 00:00 Mechanical Ventilator 02/04/19 00:00 98.0 88 20 90/51 (64) 100 02/03/19 23:35 95 02/03/19 23:11 95 25 40 02/03/19 20:55 85 22 40 02/03/19 20:00 Mechanical Ventilator 02/03/19 20:00 99.0 98 19 94/57 (69) 100 02/03/19 20:00 40 02/03/19 19:55 89 02/03/19 18:48 87 23 40 02/03/19 17:29 94 22 40 02/03/19 16:00 Mechanical Ventilator 02/03/19 16:00 90 02/03/19 16:00 97.7 98 16 112/62 (79) 100 02/03/19 16:00 40 02/03/19 15:30 89 21 40 02/03/19 13:01 86 22 40 02/03/19 12:00 97.5 86 22 94/48 (63) 100 02/03/19 12:00 Mechanical Ventilator 02/03/19 12:00 40 02/03/19 11:58 81 Intake and Output 02/03/19 02/04/19 19:00 07:00 Intake Total 1060 ml 1910 ml Output Total 900 ml 320 ml Balance 160 ml 1590 ml Free Water 300 ml 200 ml IV Total 100 ml 1105 ml Tube Feeding 660 ml 605 ml Output Urine Total 600 ml Stool Total 300 ml 320 ml # Bowel Movements 3 Laboratory Tests 02/04/19 06:18: White Blood Count 16.1H, Red Blood Count 3.74L, Hemoglobin 11.1L, Hematocrit 34.5L, Mean Corpuscular Volume 92, Mean Corpuscular Hemoglobin 29.6, Mean Corpuscular Hemoglobin Concent 32.0, Red Cell Distribution Width 16.7H, Platelet Count 305, Mean Platelet Volume 7.1, Neutrophils (%) (Auto) 70.6, Lymphocytes (%) (Auto) 15.0L, Monocytes (%) (Auto) 4.2, Eosinophils (%) (Auto) 9.6H, Basophils (%) (Auto) 0.6, Sodium Level 143, Potassium Level 4.1, Chloride Level 117H, Carbon Dioxide Level 25, Anion Gap 1L, Blood Urea Nitrogen 19H, Creatinine 0.3L, Estimat Glomerular Filtration Rate > 60, Glucose Level 153H, Calcium Level 7.2L Height (Feet): 5 Height (Inches): 6.00 Weight (Pounds): 210 General Appearance: no apparent distress EENT: normal ENT inspection Neck: supple Cardiovascular: normal rate Respiratory/Chest: decreased breath sounds Abdomen: normal bowel sounds, non tender, soft Extremities: non-tender Gaurav Rosas MD Feb 04, 2019 11:49
[2019-02-04 12:00] VITALS: BP 109/68
--- NOTE | 2019-02-04 12:47 | NUR ---
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 93.5 HR 89 RR 22 B/P 101/69 AC 16 TV 500 FIO2 40% PEEP 5 WBC 16.1 BUN 19 IS: MEROPENEM IV VANCO IV IVF NS@ 100ML/HR FLOMAS STEP DOWN STATUS
--- NOTE | 2019-02-04 13:55 | Pulmonolgy Critical Care Note ---
Critical Care - Asmt/Plan Problems: (1) Septic shock (2) HCAP (healthcare-associated pneumonia) (3) Chronic respiratory failure (4) Ventilator dependence (5) Vegetative state (6) HARDEEP (acute kidney injury) (7) History of CVA (cerebrovascular accident) (8) Feeding by G-tube (9) HTN (hypertension) (10) Cerebral vascular disease Respiratory: monitor respiratory rate, adjust FIO2, CXR Cardiac: continue to monitor HR/BP Renal: F/U I&O, keep IV fluid Infectious Disease: check cultures Gastrointestinal: continue feedings/current rate Endocrine: monitor blood sugar Hematologic: monitor H/H, transfuse if hgb<8.5 Neurologic: PRN Morphine, keep patient comfortable Affect: PRN ativan Notes Reviewed: support director Discussed with: nurses, consultants, pillowcase turnermanager creative services - Objective Last 24 Hour Vital Signs Date Time Temp Pulse Resp B/P (MAP) Pulse Ox O2 Delivery O2 Flow Rate FiO2 02/04/19 12:30 92 20 40 02/04/19 12:00 91 02/04/19 12:00 40 02/04/19 12:00 96.6 86 22 109/68 (82) 100 02/04/19 12:00 Mechanical Ventilator 02/04/19 10:36 89 22 40 02/04/19 09:03 88 23 40 02/04/19 08:00 40 02/04/19 08:00 99 02/04/19 08:00 93.5 89 22 101/69 (80) 100 02/04/19 08:00 Mechanical Ventilator 02/04/19 06:30 85 21 40 02/04/19 05:09 87 23 40 02/04/19 04:07 98 02/04/19 04:00 Mechanical Ventilator 02/04/19 04:00 40 02/04/19 04:00 97.4 97 25 103/54 (70) 100 02/04/19 02:50 91 21 40 02/04/19 00:59 88 17 40 02/04/19 00:00 Mechanical Ventilator 02/04/19 00:00 98.0 88 20 90/51 (64) 100 02/03/19 23:35 95 02/03/19 23:11 95 25 40 02/03/19 20:55 85 22 40 02/03/19 20:00 Mechanical Ventilator 02/03/19 20:00 99.0 98 19 94/57 (69) 100 02/03/19 20:00 40 02/03/19 19:55 89 02/03/19 18:48 87 23 40 02/03/19 17:29 94 22 40 02/03/19 16:00 Mechanical Ventilator 02/03/19 16:00 90 02/03/19 16:00 97.7 98 16 112/62 (79) 100 02/03/19 16:00 40 02/03/19 15:30 89 21 40 Status: obtunded Condition: critical Neck: full ROM Lungs: clear Heart: HR/BP stable, HR/BP unstable Abdomen: soft, active bowel sounds Extremities: no C/C/E Decubiti: stage Micro: Microbiology Date/Time Source Procedure Growth Status 02/02/19 18:00 Sputum Gram Stain - Final Resulted 02/02/19 18:00 Sputum Culture - Preliminary Gram Negative Mahad Resulted 02/02/19 18:20 Straight Cath Urine Culture - Preliminary NO GROWTH AFTER 24 HOURS Resulted Accucheck: 174 Critical Care - Subjective ROS Limited/Unobtainable: Yes Condition: critical FI02: 40 Vent Support Breath Rate: 16 Vent Support Mode: AC Vent Tidal Volume: 500 Sputum Amount: Moderate PEEP: 5.0 PIP: 26 Tube Feeding Amount: 55 I&O: Intake and Output 02/03/19 02/04/19 19:00 07:00 Intake Total 1060 ml 1910 ml Output Total 900 ml 320 ml Balance 160 ml 1590 ml Free Water 300 ml 200 ml IV Total 100 ml 1105 ml Tube Feeding 660 ml 605 ml Output Urine Total 600 ml Stool Total 300 ml 320 ml # Bowel Movements 3 Labs: Laboratory Tests Test 02/04/19 06:18 White Blood Count 16.1 K/UL (4.8-10.8) H Red Blood Count 3.74 M/UL (4.70-6.10) L Hemoglobin 11.1 G/DL (14.2-18.0) L Hematocrit 34.5 % (42.0-52.0) L Mean Corpuscular Volume 92 FL (80-99) Mean Corpuscular Hemoglobin 29.6 PG (27.0-31.0) Mean Corpuscular Hemoglobin Concent 32.0 G/DL (32.0-36.0) Red Cell Distribution Width 16.7 % (11.6-14.8) H Platelet Count 305 K/UL (150-450) Mean Platelet Volume 7.1 FL (6.5-10.1) Neutrophils (%) (Auto) 70.6 % (45.0-75.0) Lymphocytes (%) (Auto) 15.0 % (20.0-45.0) L Monocytes (%) (Auto) 4.2 % (1.0-10.0) Eosinophils (%) (Auto) 9.6 % (0.0-3.0) H Basophils (%) (Auto) 0.6 % (0.0-2.0) Sodium Level 143 MMOL/L (136-145) Potassium Level 4.1 MMOL/L (3.5-5.1) Chloride Level 117 MMOL/L (98-107) H Carbon Dioxide Level 25 MMOL/L (21-32) Anion Gap 1 mmol/L (5-15) L Blood Urea Nitrogen 19 mg/dL (7-18) H Creatinine 0.3 MG/DL (0.55-1.30) L Estimat Glomerular Filtration Rate > 60 mL/min (>60) Glucose Level 153 MG/DL (74-106) H Calcium Level 7.2 MG/DL (8.5-10.1) L Sagar Rudd MD Feb 04, 2019 13:55
--- NOTE | 2019-02-04 15:24 | Surgery Progress Note ---
Surgery Progress Note Subjective Additional Comments labs noted stable Objective Last 24 Hour Vital Signs Date Time Temp Pulse Resp B/P (MAP) Pulse Ox O2 Delivery O2 Flow Rate FiO2 02/04/19 15:00 96 21 40 02/04/19 14:41 97.3 02/04/19 12:30 92 20 40 02/04/19 12:00 91 02/04/19 12:00 40 02/04/19 12:00 96.6 86 22 109/68 (82) 100 02/04/19 12:00 Mechanical Ventilator 02/04/19 10:36 89 22 40 02/04/19 09:03 88 23 40 02/04/19 08:00 40 02/04/19 08:00 99 02/04/19 08:00 93.5 89 22 101/69 (80) 100 02/04/19 08:00 Mechanical Ventilator 02/04/19 06:30 85 21 40 02/04/19 05:09 87 23 40 02/04/19 04:07 98 02/04/19 04:00 Mechanical Ventilator 02/04/19 04:00 40 02/04/19 04:00 97.4 97 25 103/54 (70) 100 02/04/19 02:50 91 21 40 02/04/19 00:59 88 17 40 02/04/19 00:00 Mechanical Ventilator 02/04/19 00:00 98.0 88 20 90/51 (64) 100 02/03/19 23:35 95 02/03/19 23:11 95 25 40 02/03/19 20:55 85 22 40 02/03/19 20:00 Mechanical Ventilator 02/03/19 20:00 99.0 98 19 94/57 (69) 100 02/03/19 20:00 40 02/03/19 19:55 89 02/03/19 18:48 87 23 40 02/03/19 17:29 94 22 40 02/03/19 16:00 Mechanical Ventilator 02/03/19 16:00 90 02/03/19 16:00 97.7 98 16 112/62 (79) 100 02/03/19 16:00 40 02/03/19 15:30 89 21 40 I&O Intake and Output 02/03/19 02/04/19 19:00 07:00 Intake Total 1060 ml 1910 ml Output Total 900 ml 320 ml Balance 160 ml 1590 ml Free Water 300 ml 200 ml IV Total 100 ml 1105 ml Tube Feeding 660 ml 605 ml Output Urine Total 600 ml Stool Total 300 ml 320 ml # Bowel Movements 3 Dressing: other Wound: other Drains: other Cardiovascular: RSR Respiratory: decreased breath sounds Abdomen: soft, decreased bowel sounds Extremities: no cyanosis, other Laboratory Tests Test 02/04/19 06:18 White Blood Count 16.1 K/UL (4.8-10.8) H Red Blood Count 3.74 M/UL (4.70-6.10) L Hemoglobin 11.1 G/DL (14.2-18.0) L Hematocrit 34.5 % (42.0-52.0) L Mean Corpuscular Volume 92 FL (80-99) Mean Corpuscular Hemoglobin 29.6 PG (27.0-31.0) Mean Corpuscular Hemoglobin Concent 32.0 G/DL (32.0-36.0) Red Cell Distribution Width 16.7 % (11.6-14.8) H Platelet Count 305 K/UL (150-450) Mean Platelet Volume 7.1 FL (6.5-10.1) Neutrophils (%) (Auto) 70.6 % (45.0-75.0) Lymphocytes (%) (Auto) 15.0 % (20.0-45.0) L Monocytes (%) (Auto) 4.2 % (1.0-10.0) Eosinophils (%) (Auto) 9.6 % (0.0-3.0) H Basophils (%) (Auto) 0.6 % (0.0-2.0) Sodium Level 143 MMOL/L (136-145) Potassium Level 4.1 MMOL/L (3.5-5.1) Chloride Level 117 MMOL/L (98-107) H Carbon Dioxide Level 25 MMOL/L (21-32) Anion Gap 1 mmol/L (5-15) L Blood Urea Nitrogen 19 mg/dL (7-18) H Creatinine 0.3 MG/DL (0.55-1.30) L Estimat Glomerular Filtration Rate > 60 mL/min (>60) Glucose Level 153 MG/DL (74-106) H Calcium Level 7.2 MG/DL (8.5-10.1) L Plan Problems: (1) Decubitus skin ulcer Assessment & Plan: Pt presented on admission with contractures, multiple pressure injuries .Pt noted to have 3 pressure injuries L elbow. Laterally L elbow -Full thickness pressure injury with 40% slough at base of wound,60% beefy red. Small amt sanguineous exudate noted(L)1.4cm x (W)2.1cm. Pressure injury L elbow (proximal) (L)0.5cm x (W)1cm . Scattered biofilm at base of wound , borders are macerated.(Inferior) (L)0.4cm x (W)0.5cm . Base of wound moist with Biofilm. Small amt serous exudate noted. (L)0.4cm x (W)0.5cm. Full thickness sacral pressure injury. Base of wound is pink- moist with scattered biofilm,(+) maceration along borders. Non-blanching erythema without induration periwound (L)11.2cm x (W)4.5cm x (D)0.4cm. Two additional pressure injuries noted to L and R sacrum. Partial thickness L sacral pressure injury. Base of wound is moist and viable. Edges are macerated with surrounding non-blanching erythema without induration or elevation in skin temp.(L)0.9cm x (W)1.3cm.R sacral partial thickness pressure injury. Base of wound is moist and viable. Edges flat and adherent to base of wound. Non- blanching erythema without induration or elevation in skin temp.(L)2cm x (W) 1.5cm. Partial thickness pressure injury to outer R buttocks. base of wound moist and viable. Edges flat and adherent to base of wound. Non-blanching erythema periwound.(L)2.3cm x (W)2.5cm. Partial thickness pressure injury inferior but in close proximity R buttocks (L) 2cm x (W)2cm . Base of wound is moist and viable. Surrounding non-blanching erythema without induration. Erythematous and indurated area noted to L groin. No elevation in skin temp noted. Scrotal sac is also erythematous. Non-blanching erythema with fluctuance R hallux. (L)1.6cm x (W)1.7cm. Pressure injury dorsal R foot . Base of wound moist with small amt of Biofilm.(+ ) maceration along borders.(L)1.5cm x (W)1.7cm. R 1st metatarsal necrotic with soft center with slough . Small amt seropurulent exudate noted. Marginal erythema along borders. (L)1.5cm x (W)1.5cm. Non-blanching erythema without induration or fluctuance lateral malleolus(L) 2.5cm x (W)2.5cm. L heel is boggy with non-blanching erythema. R heel is boggy but pink and easily blanchable. apply Benadryl cream to abd / ext rash Tx.plan: Cleanse Sacral wound with Saline. Apply Therahoney. Apply Triad Paste periwound. Cover with Optifoam drsg. Change every 3 days and prn. Apply Triad paste to pressure injuries R and L sacrum and R outer Buttocks. Cover wounds with Optifoam drsg. Change every 3 days and prn. Apply Triad paste to groin and scrotum with each incontinence care. Cleanse wounds L elbow with saline. Apply Therahoney to wounds. Cover with Optifoam drsg. Change every 3 days and prn. Apply Betadine to wounds dorsal R foot and R 1st metatarsal . Cover with Optifoam drsg. Change daily and prn. Apply Cavilon to R hallux, R and L malleoli and both heels. Cover each site with Optifoam drsgs. Change every 7 days and prn. APM/RENETTA Mattress overlay. Reposition at least every 2hours or as tolerated. Off-load heels with Pillow. Place pillow between knees. (2) Septic shock Assessment & Plan: Leukocytosis - improved Lactic acidosis resolved off pressors on IV fluids tube feeds needs nutritional supplementation Rx as written cont current care and management will follow with recs c diff CT reviewed - No evidence of abscess or CT evidence for acute osteomyelitis/ erosion of the coccyx/sacrum in the area of the clinically demonstrated decubitus ulceration/ wound. The wound itself is not well seen on CT. Severe proctocolitis with wall thickening and inflammation as well as luminal distention due to fecal impaction. Rectal tube noted in place. improving abx as per ID thank you (3) Feeding by G-tube Assessment & Plan: DAILY ESTIMATED NEEDS: Needs based on Critical care, wound 68kg 22-30 kcals/kg 7772-3150 total kcals 1.25-2 g protein/kg 85-136 g total protein 25-30 mL/kg 3439-1531 total fluid mLs NUTRITION DIAGNOSIS: 1) Swallowing difficulty R/T respiratory status as evidenced by pt vent dep via trach, PEG dep, on TF. 2) Increased kcal/prot needs R/T wound healing as evidenced by pt admitted w/ multiple wounds, including open sacral wound, eval pending. ENTERAL NUTRITION RECOMMENDATIONS: Vital AF 1.2 @55ml x24 hrs to provide 1320ml, 1584kcal, 99g prot, 1071ml free H20 * As medically appropriate w/ hemodynamic stability, rec elemental formula of Vital for GI tolerance. * Initiate VITAL 1.2 @ 15ml/hr x 6 hrs, advance 10ml q 4-6 hrs as tolerated to goal rate. * HOB >30 degrees/ water flushes per MD ADDITIONAL RECOMMENDATIONS: 1) Maintain calibrated bed scale wts 2) Wound healing: add Darryl 1pkt BID w/ TF order Add Vit C 250mg daily (f/up w/ WC eval) 3) F/up w/ H&P 4) Lytes daily, replete as needed (4) Vegetative state Jimmy Tang Feb 04, 2019 15:24
--- NOTE | 2019-02-04 15:37 | NUR ---
NURSE NOTES: Delivered urine sample for legionella to lab. Sample received by lab personnel.
[2019-02-04 15:46] VITALS: BP 108/73
--- NOTE | 2019-02-04 18:22 | NUR ---
NURSE NOTES: Dr. Arevalo seen and examined patient. Dr. Mahmood made aware of patient's episode of hypothermia of 93.5 F Axillary temperature, now is 97.5 F axillary, patient is edematous throughout whole body and enlarged scrotum, and patient's skin is weeping. Dr. Mahmood acknowledged and no new orders given at this time. Noted. Will continue to monitor patient.
--- NOTE | 2019-02-04 19:05 | NUR ---
NURSE NOTES: Contacted Dr. Betancourt and made aware that patient's new temperature is 97.5 F Axillary x [address] Betancourt acknowledged. No new orders given at this time. Noted.
--- NOTE | 2019-02-04 19:30 | NUR ---
HAND-OFF: Report given to Abril Bautista RN.
--- NOTE | 2019-02-04 19:31 | NUR ---
NURSE NOTES: received pt from Hieu AUSTIN., pt is obtunded and opens his eyes with audible stimulations. pt rectal tube in place and draining well with gravity. Brooks Cath is intact, patent, and draining well as well. Right IJ is intact and clean. G tube site is clean and intact. call light within reach. will monitor pt with plan of care.
[2019-02-04 20:00] VITALS: BP 112/64
--- NOTE | 2019-02-04 20:45 | NUR ---
NURSE NOTES: due to elevated temperature 100.8 at 1999, but with cooling measures pt dropped to 98.9. call light within reach. will continue to monitor pt. Addendum: 02/05/19 at 0040 by LALI MAGALLON RN wrong Pt
[2019-02-04] MEDS: Dyna-Hex 2% Top Sol 2oz TOPIC SCH (20:50)
[2019-02-05] VITALS: BP 100/51
[2019-02-05 04:00] VITALS: BP 117/66
--- NOTE | 2019-02-05 04:15 | Progress Note ---
DATE: 02/04/2019 SUBJECTIVE: The patient is awake, alert, afebrile, and hemodynamically stable, however, he developed severe hypothermia. PHYSICAL EXAMINATION: VITAL SIGNS: Blood pressure 108/73, his pulse is 96, respirations 21, temperature now is 96.6, was 93.2. HEENT: Eyes were normal. ENT, mucous membranes were moist and intact. NECK: Supple with no JVD without lymph nodes. Tracheostomy site is clean. LUNGS: Clear without rhonchi, rales, or wheezing. Secretions are small, thin, and white. HEART: Normal sounds with regular beats. There is near tachycardia at rest. ABDOMEN: Soft, nontender with normal bowel sounds. Gastrostomy site is clean. EXTREMITIES: Warm without cyanosis, clubbing, or edema. The patient is . LABORATORY DATA: Hemoglobin 11.1, hematocrit 34.4 with MCV of 92, WBC of 16.1, and platelets is 305. His WBC did not change dramatically, hemoglobin and hematocrit. BUN and creatinine is 19 and 0.3 respectively. Sodium is 143, potassium 4.1, chloride 117, CO2 is 25. His calcium is 7.2. His magnesium is 1.9, and phosphorus is 2.8. His albumin is 1. Total protein is 4.5. IMPRESSION: The patient with . Again, she needs repeat laboratory tests will be done in the a.m. Boris Arevalo M.D. DR: KUASHIK JOB#: [id number] CC:
[2019-02-05] MEDS: Meropenem 1 GM in NS 55 ML IVPB SCH ×2 (04:58→17:58)
[2019-02-05] MEDS: Vancomycin 1.25gm/NS Premix IVPB SCH ×2 (04:58→16:17)
--- NOTE | 2019-02-05 06:00 | NUR ---
NURSE NOTES: another bath given and oral care given. pt is stable condition. call light within reach.
[2019-02-05 06:11] LABS: BASOPHILS % (AUTO) 0.7 % (0.0-2.0); EOSINOPHILS % (AUTO) 11.8 % (0.0-3.0); HEMATOCRIT 33.4 % (42.0-52.0); HEMOGLOBIN 10.6 G/DL (14.2-18.0); LYMPHOCYTES % (AUTO) 14.2 % (20.0-45.0); MEAN CORPUSCULAR VOLUME 93 FL (80-99); MONOCYTES % (AUTO) 4.5 % (1.0-10.0); NEUTROPHILS % (AUTO) 68.8 % (45.0-75.0); PLATELET COUNT 335 K/UL (150-450); RED BLOOD COUNT 3.57 M/UL (4.70-6.10); RED CELL DISTRIBUTION WIDTH 16.9 % (11.6-14.8)
[2019-02-05] MEDS: NovoLOG Insulin Flexpen SUBQ SCH ×3 (06:13→18:00)
[2019-02-05 07:21] LABS: ANION GAP 10 mmol/L (5-15); BLOOD UREA NITROGEN 19 mg/dL (7-18); CALCIUM 7.4 MG/DL (8.5-10.1); CARBON DIOXIDE 21 MMOL/L (21-32); CHLORIDE 121 MMOL/L (98-107); CREATININE 0.5 MG/DL (0.55-1.30); POTASSIUM 3.7 MMOL/L (3.5-5.1); SODIUM 152 MMOL/L (136-145)
--- NOTE | 2019-02-05 07:27 | NUR ---
HAND-OFF: Report given to Caity AUSTIN. pt is stable condition. endorsed to clarify regarding DVT prophylaxis. Addendum: 02/05/19 at 0743 by LALI MAGALLON RN and endorsed to clarify central line discontinue date.
[2019-02-05 08:00] VITALS: BP 120/66
--- NOTE | 2019-02-05 08:00 | Urology Progress Note ---
Assessment/Plan Status: unchanged Assessment/Plan: 1. Sepsis. 2. Incontinence. 3. Neurogenic bladder. 4. Proteinuria. 5. Hematuria. 6. Pyuria. 7. History of nephrolithiasis. 8. Urethral stricture. maintain hernández, do not remove switch to larger size hernández at some point hand irrigated and do PRN abx as ordered, ID on case f/u on last blood cx on flomax BID Subjective Allergies: Coded Allergies: OXYTETRACYCLINE (Unverified Allergy, Unknown, 09/05/13) PENICILLINS (Unverified Allergy, Unknown, 06/11/17) Tolerated one dose of Cefepime 06/07/17 Tolerated Cefdinir 06/10/17 Uncoded Allergies: PLASTIC TAPE (Allergy, Mild, ITCHINESS, 08/08/15) MEDICAL TAPE (Allergy, Unknown, 12/10/16) Subjective all noted Objective Last 24 Hour Vital Signs Date Time Temp Pulse Resp B/P (MAP) Pulse Ox O2 Delivery O2 Flow Rate FiO2 02/05/19 07:45 97 22 40 02/05/19 04:50 96 23 40 02/05/19 04:00 98.9 101 23 117/66 (83) 97 02/05/19 04:00 Mechanical Ventilator 02/05/19 04:00 40 02/05/19 03:50 95 02/05/19 02:52 108 25 40 02/05/19 01:11 99 24 40 02/05/19 00:00 Mechanical Ventilator 02/05/19 00:00 97.6 102 23 100/51 (67) 100 02/04/19 23:48 86 02/04/19 22:56 98 22 40 02/04/19 20:40 98 22 40 02/04/19 20:00 Mechanical Ventilator 02/04/19 20:00 40 02/04/19 20:00 99.1 100 22 112/64 (80) 100 02/04/19 19:23 95 02/04/19 19:20 93 20 40 02/04/19 17:04 91 23 40 02/04/19 16:00 Mechanical Ventilator 02/04/19 16:00 97 02/04/19 16:00 40 02/04/19 15:46 97.1 99 22 108/73 (85) 100 02/04/19 15:00 96 21 40 02/04/19 14:41 97.3 02/04/19 12:30 92 20 40 02/04/19 12:00 91 02/04/19 12:00 40 02/04/19 12:00 96.6 86 22 109/68 (82) 100 02/04/19 12:00 Mechanical Ventilator 02/04/19 10:36 89 22 40 02/04/19 09:03 88 23 40 02/04/19 08:00 40 02/04/19 08:00 99 02/04/19 08:00 93.5 89 22 101/69 (80) 100 02/04/19 08:00 Mechanical Ventilator Intake and Output 02/04/19 02/05/19 18:59 06:59 Intake Total 1060 ml 1803.333 ml Output Total 600 ml 630 ml Balance 460 ml 1173.333 ml Free Water 300 ml 150 ml IV Total 100 ml 993.333 ml Tube Feeding 660 ml 660 ml Output Urine Total 300 ml 310 ml Stool Total 300 ml 320 ml Microbiology Date/Time Source Procedure Growth Status 02/01/19 12:40 Blood Blood Culture - Preliminary NO GROWTH AFTER 72 HOURS Resulted 02/02/19 18:00 Sputum Gram Stain - Final Resulted 02/02/19 18:00 Sputum Culture - Preliminary Pseudomonas Aeruginosa Resulted 01/22/19 17:23 Stool Clostridium difficile Toxin Assay - Final Complete 02/04/19 15:00 Straight Cath Urine Culture - Preliminary NO GROWTH Resulted 01/22/19 02:10 Rectum - Final Escherichia Coli - Cre Complete Current Medications Medications (Trade) Dose Ordered Sig/Sima Route PRN Reason Start Time Stop Time Status Last Admin Dose Admin Acetaminophen (Tylenol) 650 mg Q4H PRN GT Mild Pain/Temp > 100.5 01/24/19 15:28 02/23/19 15:27 01/31/19 20:31 Acetaminophen/ Hydrocodone Bitart (Patterson 10/325) 1 tab Q4H PRN GT For Pain 01/31/19 22:30 02/07/19 22:29 Ascorbic Acid (Vitamin C) 250 mg DAILY GT 01/25/19 09:00 02/24/19 08:59 02/04/19 08:59 Chlorhexidine Gluconate (Paulina-Hex 2%) 1 applic DAILY@1999 TOPIC 02/01/19 20:00 03/03/19 19:59 02/04/19 20:50 Dextrose (Dextrose 50%) 25 ml Q30M PRN IV Hypoglycemia 01/24/19 15:30 02/21/19 06:29 Dextrose (Dextrose 50%) 50 ml Q30M PRN IV Hypoglycemia 01/24/19 15:30 02/21/19 06:29 Diphenhydramine HCl (Benadryl Cream) 1 applic TIDPRN PRN TOPIC Itching 02/01/19 15:00 03/03/19 14:59 02/02/19 11:25 Famotidine (Pepcid I.v.) 20 mg Q12HR IVP 01/24/19 21:00 02/23/19 20:59 02/04/19 20:50 Fidaxomicin (Dificid) 200 mg EVERY 12 HOURS ORAL 02/01/19 12:00 02/10/19 21:01 02/04/19 21:29 Insulin Aspart (NovoLOG) Q6HR SUBQ 01/26/19 12:00 02/21/19 07:29 02/05/19 06:13 Lorazepam (Ativan 2mg/ml 1ml) 2 mg Q4H PRN IV For Anxiety 01/29/19 14:30 02/05/19 14:29 01/29/19 14:38 Meropenem 1 gm/ Sodium Chloride 55 ml @ 110 mls/hr Q12H IVPB 02/04/19 17:00 02/15/19 23:59 02/05/19 04:58 Midodrine (Pro-Amatine) 2.5 mg THREE TIMES A DAY GT 01/24/19 18:00 02/21/19 12:59 02/04/19 18:05 Sodium Chloride 1,000 ml @ 100 mls/hr Q10H IV 01/26/19 17:00 02/25/19 16:59 02/05/19 06:15 Tamsulosin HCl (Flomax) 0.4 mg BID ORAL 01/24/19 18:00 02/21/19 09:59 02/04/19 18:05 Vancomycin HCl (Vanco rx to dose) 1 ea DAILY PRN MISC Per rx protocol 01/29/19 15:30 02/28/19 15:29 Vancomycin/Sodium Chloride 275 ml @ 183.333 mls/hr Q12H IVPB 11/9/19 16:30 02/05/19 23:59 02/05/19 04:58 Laboratory Tests 02/04/19 15:00: Urine Legionella Antigen [Pending] 02/05/19 04:00: White Blood Count 15.0H, Red Blood Count 3.57L, Hemoglobin 10.6L, Hematocrit 33.4L, Mean Corpuscular Volume 93, Mean Corpuscular Hemoglobin 29.6, Mean Corpuscular Hemoglobin Concent 31.7L, Red Cell Distribution Width 16.9H, Platelet Count 335, Mean Platelet Volume 7.4, Neutrophils (%) (Auto) 68.8, Lymphocytes (%) (Auto) 14.2L, Monocytes (%) (Auto) 4.5, Eosinophils (%) (Auto) 11.8H, Basophils (%) (Auto) 0.7, Sodium Level 152H, Potassium Level 3.7, Chloride Level 121H, Carbon Dioxide Level 21, Anion Gap 10, Blood Urea Nitrogen 19H, Creatinine 0.5#L, Estimat Glomerular Filtration Rate > 60, Glucose Level 128H, Calcium Level 7.4L Height (Feet): 5 Height (Inches): 6.00 Weight (Pounds): 215 Objective exam stable hernández indwelling, urine yellow/abhay no active bleeding at meatus renal u/s (01/23) noted pelvic CT (01/28) noted Jake Pierre MD Feb 05, 2019 08:00
--- NOTE | 2019-02-05 08:00 | NUR ---
NURSE NOTES: received pt in the bed, obtunded, vent dependent, vital signs stable, no co pain, no SOB, skin warm and dry to touch, multiple decub, dressing dry and intact, Brooks catheter with yellow urine, tolerate GT feeding well, TLC on RT IJ, dressing dry and intact, bed in low position, HOB elevated.
--- NOTE | 2019-02-05 08:49 | NUR ---
RESPIRATORY NOTE: received pt on current vent settings with no signs of resp distress. pt is trached with portex 7 secured via trach tie/guard. no redness or skin wounds visible. alarms are set and audible with ambu bag at bedside. will cont to monitor.
[2019-02-05] MEDS: Ascorbic Acid 500mg tab GT SCH (09:19)
[2019-02-05] MEDS: Tamsulosin 0.4mg cap ORAL SCH ×2 (09:20→17:59)
[2019-02-05 12:00] VITALS: BP 107/58
--- NOTE | 2019-02-05 12:00 | NUR ---
NURSE NOTES: VITAL SIGNS STABLE, NO CO PAIN, BED BATH GIVEN, PICTURE TAKEN, DRESSING CHANGED, CONTINUE MONITORING
--- NOTE | 2019-02-05 12:48 | Nephrology Progress Note ---
Assessment/Plan Problem List: (1) Hypokalemia (2) HARDEEP (acute kidney injury) (3) Sepsis (4) Hyponatremia Assessment HARDEEP (acute kidney injury) HypoNatremia Septic shock Others: HCAP (healthcare-associated pneumonia) Chronic respiratory failure Ventilator dependence Vegetative state History of CVA (cerebrovascular accident) Feeding by G-tube HTN (hypertension) Cerebral vascular disease Plan K Phos mag as needed Hydrate monitor renal parameters Midodrine Antibiotics Avoid nephrotoxics Brooks could not be put in due to resistance start flomax per order Subjective ROS Limited/Unobtainable: Yes Objective Objective Last 24 Hour Vital Signs Date Time Temp Pulse Resp B/P (MAP) Pulse Ox O2 Delivery O2 Flow Rate FiO2 02/05/19 10:54 96 22 40 02/05/19 08:46 94 21 40 02/05/19 08:00 Mechanical Ventilator 02/05/19 08:00 93 02/05/19 08:00 98.2 95 24 120/66 (84) 100 02/05/19 08:00 40 02/05/19 07:45 97 22 40 02/05/19 04:50 96 23 40 02/05/19 04:00 98.9 101 23 117/66 (83) 97 02/05/19 04:00 Mechanical Ventilator 02/05/19 04:00 40 02/05/19 03:50 95 02/05/19 02:52 108 25 40 02/05/19 01:11 99 24 40 02/05/19 00:00 Mechanical Ventilator 02/05/19 00:00 97.6 102 23 100/51 (67) 100 02/04/19 23:48 86 02/04/19 22:56 98 22 40 02/04/19 20:40 98 22 40 02/04/19 20:00 Mechanical Ventilator 02/04/19 20:00 40 02/04/19 20:00 99.1 100 22 112/64 (80) 100 02/04/19 19:23 95 02/04/19 19:20 93 20 40 02/04/19 17:04 91 23 40 02/04/19 16:00 Mechanical Ventilator 02/04/19 16:00 97 02/04/19 16:00 40 02/04/19 15:46 97.1 99 22 108/73 (85) 100 02/04/19 15:00 96 21 40 02/04/19 14:41 97.3 Intake and Output 02/04/19 02/05/19 18:59 06:59 Intake Total 1060 ml 1803.333 ml Output Total 600 ml 630 ml Balance 460 ml 1173.333 ml Free Water 300 ml 150 ml IV Total 100 ml 993.333 ml Tube Feeding 660 ml 660 ml Output Urine Total 300 ml 310 ml Stool Total 300 ml 320 ml Laboratory Tests 02/04/19 15:00: Urine Legionella Antigen [Pending] 02/05/19 04:00: White Blood Count 15.0H, Red Blood Count 3.57L, Hemoglobin 10.6L, Hematocrit 33.4L, Mean Corpuscular Volume 93, Mean Corpuscular Hemoglobin 29.6, Mean Corpuscular Hemoglobin Concent 31.7L, Red Cell Distribution Width 16.9H, Platelet Count 335, Mean Platelet Volume 7.4, Neutrophils (%) (Auto) 68.8, Lymphocytes (%) (Auto) 14.2L, Monocytes (%) (Auto) 4.5, Eosinophils (%) (Auto) 11.8H, Basophils (%) (Auto) 0.7, Sodium Level 152H, Potassium Level 3.7, Chloride Level 121H, Carbon Dioxide Level 21, Anion Gap 10, Blood Urea Nitrogen 19H, Creatinine 0.5#L, Estimat Glomerular Filtration Rate > 60, Glucose Level 128H, Calcium Level 7.4L Height (Feet): 5 Height (Inches): 6.00 Weight (Pounds): 215 General Appearance: no apparent distress EENT: other - trach Cardiovascular: tachycardia Respiratory/Chest: decreased breath sounds Abdomen: distended Objective no change Sergey Rivera MD Feb 05, 2019 12:48
[2019-02-05] MEDS ORDERED: Heparin1,000 units/500ml Premix(Conc:2 units/ml) IV PRN (14:15)
[2019-02-05] MEDS ORDERED: Lidocaine 1% Plain 30 ml INJ PRN (14:15)
--- NOTE | 2019-02-05 14:20 | Surgery Progress Note ---
Surgery Progress Note Subjective Additional Comments wbc trending down rectal tube out loose stool discussed care plan with PCP At bedside this AM Objective Last 24 Hour Vital Signs Date Time Temp Pulse Resp B/P (MAP) Pulse Ox O2 Delivery O2 Flow Rate FiO2 02/05/19 13:04 89 23 40 02/05/19 12:00 92 02/05/19 12:00 Mechanical Ventilator 02/05/19 12:00 40 02/05/19 12:00 97.2 90 20 107/58 (74) 100 02/05/19 10:54 96 22 40 02/05/19 08:46 94 21 40 02/05/19 08:00 Mechanical Ventilator 02/05/19 08:00 93 02/05/19 08:00 98.2 95 24 120/66 (84) 100 02/05/19 08:00 40 02/05/19 07:45 97 22 40 02/05/19 04:50 96 23 40 02/05/19 04:00 98.9 101 23 117/66 (83) 97 02/05/19 04:00 Mechanical Ventilator 02/05/19 04:00 40 02/05/19 03:50 95 02/05/19 02:52 108 25 40 02/05/19 01:11 99 24 40 02/05/19 00:00 Mechanical Ventilator 02/05/19 00:00 97.6 102 23 100/51 (67) 100 02/04/19 23:48 86 02/04/19 22:56 98 22 40 02/04/19 20:40 98 22 40 02/04/19 20:00 Mechanical Ventilator 02/04/19 20:00 40 02/04/19 20:00 99.1 100 22 112/64 (80) 100 02/04/19 19:23 95 02/04/19 19:20 93 20 40 02/04/19 17:04 91 23 40 02/04/19 16:00 Mechanical Ventilator 02/04/19 16:00 97 02/04/19 16:00 40 02/04/19 15:46 97.1 99 22 108/73 (85) 100 02/04/19 15:00 96 21 40 02/04/19 14:41 97.3 I&O Intake and Output 02/04/19 02/05/19 19:00 07:00 Intake Total 960 ml 1878.333 ml Output Total 600 ml 630 ml Balance 360 ml 1248.333 ml Free Water 300 ml 150 ml IV Total 1068.333 ml Tube Feeding 660 ml 660 ml Output Urine Total 300 ml 310 ml Stool Total 300 ml 320 ml Dressing: saturated Wound: other Drains: other Cardiovascular: RSR Respiratory: decreased breath sounds Abdomen: soft, present bowel sounds, other Extremities: no cyanosis Laboratory Tests Test 02/04/19 15:00 02/05/19 04:00 Urine Legionella Antigen Pending White Blood Count 15.0 K/UL (4.8-10.8) H Red Blood Count 3.57 M/UL (4.70-6.10) L Hemoglobin 10.6 G/DL (14.2-18.0) L Hematocrit 33.4 % (42.0-52.0) L Mean Corpuscular Volume 93 FL (80-99) Mean Corpuscular Hemoglobin 29.6 PG (27.0-31.0) Mean Corpuscular Hemoglobin Concent 31.7 G/DL (32.0-36.0) L Red Cell Distribution Width 16.9 % (11.6-14.8) H Platelet Count 335 K/UL (150-450) Mean Platelet Volume 7.4 FL (6.5-10.1) Neutrophils (%) (Auto) 68.8 % (45.0-75.0) Lymphocytes (%) (Auto) 14.2 % (20.0-45.0) L Monocytes (%) (Auto) 4.5 % (1.0-10.0) Eosinophils (%) (Auto) 11.8 % (0.0-3.0) H Basophils (%) (Auto) 0.7 % (0.0-2.0) Sodium Level 152 MMOL/L (136-145) H Potassium Level 3.7 MMOL/L (3.5-5.1) Chloride Level 121 MMOL/L (98-107) H Carbon Dioxide Level 21 MMOL/L (21-32) Anion Gap 10 mmol/L (5-15) Blood Urea Nitrogen 19 mg/dL (7-18) H Creatinine 0.5 MG/DL (0.55-1.30) #L Estimat Glomerular Filtration Rate > 60 mL/min (>60) Glucose Level 128 MG/DL (74-106) H Calcium Level 7.4 MG/DL (8.5-10.1) L Plan Problems: (1) Decubitus skin ulcer Assessment & Plan: Pt presented on admission with contractures, multiple pressure injuries .Pt noted to have 3 pressure injuries L elbow. Laterally L elbow -Full thickness pressure injury with 40% slough at base of wound,60% beefy red. Small amt sanguineous exudate noted(L)1.4cm x (W)2.1cm. Pressure injury L elbow (proximal) (L)0.5cm x (W)1cm . Scattered biofilm at base of wound , borders are macerated.(Inferior) (L)0.4cm x (W)0.5cm . Base of wound moist with Biofilm. Small amt serous exudate noted. (L)0.4cm x (W)0.5cm. Full thickness sacral pressure injury. Base of wound is pink- moist with scattered biofilm,(+) maceration along borders. Non-blanching erythema without induration periwound (L)11.2cm x (W)4.5cm x (D)0.4cm. Two additional pressure injuries noted to L and R sacrum. Partial thickness L sacral pressure injury. Base of wound is moist and viable. Edges are macerated with surrounding non-blanching erythema without induration or elevation in skin temp.(L)0.9cm x (W)1.3cm.R sacral partial thickness pressure injury. Base of wound is moist and viable. Edges flat and adherent to base of wound. Non- blanching erythema without induration or elevation in skin temp.(L)2cm x (W) 1.5cm. Partial thickness pressure injury to outer R buttocks. base of wound moist and viable. Edges flat and adherent to base of wound. Non-blanching erythema periwound.(L)2.3cm x (W)2.5cm. Partial thickness pressure injury inferior but in close proximity R buttocks (L) 2cm x (W)2cm . Base of wound is moist and viable. Surrounding non-blanching erythema without induration. Erythematous and indurated area noted to L groin. No elevation in skin temp noted. Scrotal sac is also erythematous. Non-blanching erythema with fluctuance R hallux. (L)1.6cm x (W)1.7cm. Pressure injury dorsal R foot . Base of wound moist with small amt of Biofilm.(+ ) maceration along borders.(L)1.5cm x (W)1.7cm. R 1st metatarsal necrotic with soft center with slough . Small amt seropurulent exudate noted. Marginal erythema along borders. (L)1.5cm x (W)1.5cm. Non-blanching erythema without induration or fluctuance lateral malleolus(L) 2.5cm x (W)2.5cm. L heel is boggy with non-blanching erythema. R heel is boggy but pink and easily blanchable. apply Benadryl cream to abd / ext rash Tx.plan: Cleanse Sacral wound with Saline. Apply Therahoney. Apply Triad Paste periwound. Cover with Optifoam drsg. Change every 3 days and prn. Apply Triad paste to pressure injuries R and L sacrum and R outer Buttocks. Cover wounds with Optifoam drsg. Change every 3 days and prn. Apply Triad paste to groin and scrotum with each incontinence care. Cleanse wounds L elbow with saline. Apply Therahoney to wounds. Cover with Optifoam drsg. Change every 3 days and prn. Apply Betadine to wounds dorsal R foot and R 1st metatarsal . Cover with Optifoam drsg. Change daily and prn. Apply Cavilon to R hallux, R and L malleoli and both heels. Cover each site with Optifoam drsgs. Change every 7 days and prn. APM/RENETTA Mattress overlay. Reposition at least every 2hours or as tolerated. Off-load heels with Pillow. Place pillow between knees. (2) Septic shock Assessment & Plan: Leukocytosis - improved Lactic acidosis resolved off pressors on IV fluids tube feeds needs nutritional supplementation Rx as written cont current care and management will follow with recs c diff CT reviewed - No evidence of abscess or CT evidence for acute osteomyelitis/ erosion of the coccyx/sacrum in the area of the clinically demonstrated decubitus ulceration/ wound. The wound itself is not well seen on CT. Severe proctocolitis with wall thickening and inflammation as well as luminal distention due to fecal impaction. improving abx as per ID thank you (3) Feeding by G-tube Assessment & Plan: DAILY ESTIMATED NEEDS: Needs based on Critical care, wound 68kg 22-30 kcals/kg 6586-7137 total kcals 1.25-2 g protein/kg 85-136 g total protein 25-30 mL/kg 5130-5498 total fluid mLs NUTRITION DIAGNOSIS: 1) Swallowing difficulty R/T respiratory status as evidenced by pt vent dep via trach, PEG dep, on TF. 2) Increased kcal/prot needs R/T wound healing as evidenced by pt admitted w/ multiple wounds, including open sacral wound, eval pending. ENTERAL NUTRITION RECOMMENDATIONS: Vital AF 1.2 @55ml x24 hrs to provide 1320ml, 1584kcal, 99g prot, 1071ml free H20 * As medically appropriate w/ hemodynamic stability, rec elemental formula of Vital for GI tolerance. * Initiate VITAL 1.2 @ 15ml/hr x 6 hrs, advance 10ml q 4-6 hrs as tolerated to goal rate. * HOB >30 degrees/ water flushes per MD ADDITIONAL RECOMMENDATIONS: 1) Maintain calibrated bed scale wts 2) Wound healing: add Darryl 1pkt BID w/ TF order Add Vit C 250mg daily (f/up w/ WC eval) 3) F/up w/ H&P 4) Lytes daily, replete as needed (4) Vegetative state Jimmy Tang Feb 05, 2019 14:20
[2019-02-05 16:00] VITALS: BP 110/55
--- NOTE | 2019-02-05 19:30 | NUR ---
NURSE NOTES: Received pt obtunded contracted and severely edematous , pts body wheeping with fluids, SR on the monitor bp stable afebrile. Pt has multiple pressure sores and skin tear (pls see pictures) . Trache to vent on AC mode , suctioned tk light yellow secretions lg in amt HOB kept elevated Watch for any resp. distress. pT is on p200 mattress- turned q 2hrs prn with good skin care done. IVF D5w at 100ml/hr infusing per RT IJ central line. Drsg is current dry and intact,Will continue to monitor.
--- NOTE | 2019-02-05 19:30 | NUR ---
HAND-OFF: Report given to Brian AUSTIN, NO DISTRESS AT THIS TIME.
[2019-02-05 20:00] VITALS: BP 144/65
[2019-02-05] MEDS: Dyna-Hex 2% Top Sol 2oz TOPIC SCH (20:23)
--- NOTE | 2019-02-05 21:00 | NUR ---
NURSE NOTES: Sacral drsg was soiled new drsg was applied. Pt tolerating fdg HOB kept elevated. On aspiration precaution.
[2019-02-05] MEDS: Colistin for inhalation INH SCH (22:00)
--- NOTE | 2019-02-05 22:00 | Progress Note ---
DATE: 02/05/2019 SUBJECTIVE: The patient is afebrile, hemodynamically stable. His tachycardia resolved. PHYSICAL EXAMINATION: VITAL SIGNS: Blood pressure is 107/58. His pulse is 90. Respirations 20. Temperature is 97.2. HEENT: Eyes were normal. ENT, mucous membranes were moist and intact. Oral cavity is . NECK: Supple with no JVD without lymph nodes. Tracheostomy site is clean. LUNGS: Clear without rhonchi, rales, or wheezing. Secretions are small, thin, and white. HEART: Normal sounds with regular beat. There is no tachycardia at rest. ABDOMEN: Soft and nontender with normal bowel sounds. Gastrostomy site is clean. EXTREMITIES: Warm without cyanosis or clubbing. There is 1+ to 2+ edema. LABORATORY AND DIAGNOSTIC DATA: His hemoglobin is 10.6, hematocrit 33.4 with MCV of 93, WBC of 15.0, and platelets 335,000. His BUN and creatinine are 19 and 0.5 respectively. His sodium is 152, potassium 3.7, chloride 121. CO2 is 21. His calcium is 7.4. His phosphorus is 2.8 and magnesium is 1.9. It is to note that his calcium has been daily basis since 02/01/2019. His rectal tube is out. IMPRESSION: The patient continues to improve hemodynamically and . Repeat laboratory tests will be done in the a.m. Boris Arevalo M.D. DR: MELISSA JOB#: [id number] CC:
[2019-02-06] VITALS: BP 115/59
[2019-02-06] MEDS: NovoLOG Insulin Flexpen SUBQ SCH ×5 (00:28→23:19)
[2019-02-06 04:00] VITALS: BP 100/56
--- NOTE | 2019-02-06 05:00 | NUR ---
NURSE NOTES: Complete bath with bed changed was done.
[2019-02-06] MEDS: Meropenem 1 GM in NS 55 ML IVPB SCH (05:05)
--- NOTE | 2019-02-06 06:00 | NUR ---
NURSE NOTES: Accucheck 135- with coverage. pls see emar.
--- NOTE | 2019-02-06 07:12 | NUR ---
NURSE NOTES: no resp. distress note.VSS, Needs frequent oral care.
--- NOTE | 2019-02-06 07:14 | NUR ---
HAND-OFF: Report given to Adriel Cartwrihgt RN.
--- NOTE | 2019-02-06 07:44 | Infectious Diseases Prog Note ---
Assessment/Plan Assessment/Plan 63 yo male who was sent to the ED on 01/21/19 for hypotension, fever and respiratory distress. Fever, SP Leukocytosis, fluctuating Gram negative Sepsis GBS and MRSA bacteremia Possible PNA--CXR low volume, pt contracted, difficult to determine infiltrates. thick secretions. 01/22 BCx: ESBL K pneumoniae, GBS, MRSA 01/22 CXR: bilateral opacities 01/22 UA positive. UCx VRE 01/23 CXR: Redemonstration of bibasilar patchy airspace opacities. Unchanged pulmonary vascular congestion. No pneumothorax. Stable small left pleural effusion. 01/24 Bcx: ngtd TTE negative but poor visualization 02/01 bcx: ngtd 02/02 Ucx: ngtd 02/02 sputum cx: MDR Pseudomonas 01/22 C diff positive 01/26 KUB: Nonspecific bowel gas pattern. Gastrostomy. No definite acute process 01/27 CT Pelvis: Severe proctocolitis with wall thicken in and inflammation as well as luminal distention due to fecal impaction. Rectal tube noted in place. Decubitus ulcer 01/27 CT Pelvis: No evidence of abscess or CT evidence for acute osteomyelitis /erosion of the coccyx/sacrum in the area of the clinically demonstrated decubitus ulceration/wound. The wound itself is not well seen on CT. Rash eosinophils on peripheral CBC VRE colonization DM COPD CVA Dementia Parkinsons Cardiac issues Vent dependent with trach G tube PLAN: - Colistin inhaled #2 - fidaxomicin #6/10 - Vancomycin IV #8 02/06 C meropenem #15 - 02/01 DC vanc po to 500mg # - 01/20 SP vanc po 125mg #4 - 02/01 DC Flagyl IV #7 - 01/28 SP Daptomycin #5 - 01/24 DC vancomycin IV #2 - f/u cultures - repeat bcx, sputum cx, UA, ucx, urine legionella - Monitor CBC and Temps recommend HUONG given MRSA bacteremia and persistent leukocytosis Thank you for this consult. [facility] will continue to follow the patient with you during this hospitalization. Subjective Allergies: Coded Allergies: OXYTETRACYCLINE (Unverified Allergy, Unknown, 09/05/13) PENICILLINS (Unverified Allergy, Unknown, 06/11/17) Tolerated one dose of Cefepime 06/07/17 Tolerated Cefdinir 06/10/17 Uncoded Allergies: PLASTIC TAPE (Allergy, Mild, ITCHINESS, 08/08/15) MEDICAL TAPE (Allergy, Unknown, 12/10/16) Subjective Afebrile. WBC better. BP better. FiO2 stable. stool still loose but less thick secretions Objective Vital Signs Last 24 Hour Vital Signs Date Time Temp Pulse Resp B/P (MAP) Pulse Ox O2 Delivery O2 Flow Rate FiO2 02/06/19 07:36 84 24 35 02/06/19 05:18 85 23 35 02/06/19 04:00 98.6 91 25 100/56 (71) 100 02/06/19 04:00 40 02/06/19 04:00 Mechanical Ventilator 02/06/19 03:37 78 22 100 Mechanical Ventilator 40 02/06/19 03:30 80 23 40 02/06/19 01:30 77 23 40 02/06/19 00:00 40 02/06/19 00:00 Mechanical Ventilator 02/06/19 00:00 98.0 90 28 115/59 (77) 100 02/05/19 23:30 84 24 40 02/05/19 21:21 87 26 40 02/05/19 20:00 95 02/05/19 20:00 Mechanical Ventilator 02/05/19 20:00 98.1 89 22 144/65 (91) 100 02/05/19 19:20 92 26 40 02/05/19 16:56 84 20 40 02/05/19 16:00 40 02/05/19 16:00 Mechanical Ventilator 02/05/19 16:00 97.1 92 23 110/55 (73) 100 02/05/19 16:00 92 02/05/19 15:00 89 20 40 02/05/19 13:04 89 23 40 02/05/19 12:00 92 02/05/19 12:00 Mechanical Ventilator 02/05/19 12:00 40 02/05/19 12:00 97.2 90 20 107/58 (74) 100 02/05/19 10:54 96 22 40 02/05/19 08:46 94 21 40 02/05/19 08:00 Mechanical Ventilator 02/05/19 08:00 93 02/05/19 08:00 98.2 95 24 120/66 (84) 100 02/05/19 08:00 40 02/05/19 07:45 97 22 40 Height (Feet): 5 Height (Inches): 6.00 Weight (Pounds): 211 Objective Gen: NAD CV: RRR Resp: coarse. ventilatory sounds Abd: soft. Distended. Hypoactive BS+. G tube Ext: contracted Neuro: not alert Microbiology Date/Time Source Procedure Growth Status 02/04/19 15:00 Straight Cath Urine Culture - Preliminary NO GROWTH Resulted Current Medications Medications (Trade) Dose Ordered Sig/Sima Route PRN Reason Start Time Stop Time Status Last Admin Dose Admin Acetaminophen (Tylenol) 650 mg Q4H PRN GT Mild Pain/Temp > 100.5 01/24/19 15:28 02/23/19 15:27 01/31/19 20:31 Acetaminophen/ Hydrocodone Bitart (Bigelow ) 1 tab Q4H PRN GT For Pain 01/31/19 22:30 02/07/19 22:29 Ascorbic Acid (Vitamin C) 250 mg DAILY GT 01/25/19 09:00 02/24/19 08:59 02/05/19 09:19 Chlorhexidine Gluconate (Paulina-Hex 2%) 1 applic DAILY@1999 TOPIC 02/05/19 20:00 03/07/19 19:59 02/05/19 20:23 Colistimethate Sodium (Colistin *inhalation use only*) 75 mg Q12HR@10,22 INH 02/05/19 22:00 02/12/19 21:59 Dextrose 1,000 ml @ 100 mls/hr Q10H IV 02/05/19 11:00 03/07/19 10:59 02/06/19 07:19 Dextrose (Dextrose 50%) 25 ml Q30M PRN IV Hypoglycemia 01/24/19 15:30 02/21/19 06:29 Dextrose (Dextrose 50%) 50 ml Q30M PRN IV Hypoglycemia 01/24/19 15:30 02/21/19 06:29 Diphenhydramine HCl (Benadryl Cream) 1 applic TIDPRN PRN TOPIC Itching 02/01/19 15:00 03/03/19 14:59 02/02/19 11:25 Famotidine (Pepcid I.v.) 20 mg Q12HR IVP 01/24/19 21:00 02/23/19 20:59 02/05/19 21:26 Fidaxomicin (Dificid) 200 mg EVERY 12 HOURS ORAL 02/01/19 12:00 02/10/19 21:01 02/05/19 21:26 Heparin Sodium/ Sodium Chloride (Heparin 1000 units/500ml Premix) 1,000 unit ONCE PRN IV picc line placement 02/05/19 14:15 02/07/19 14:14 Insulin Aspart (NovoLOG) Q6HR SUBQ 01/26/19 12:00 02/21/19 07:29 02/06/19 05:57 Lidocaine HCl (Xylocaine 1% 30ml) 30 ml ONCE PRN INJ picc line placement 02/05/19 14:15 02/07/19 14:14 Meropenem 1 gm/ Sodium Chloride 55 ml @ 110 mls/hr Q12H IVPB 02/04/19 17:00 02/15/19 23:59 02/06/19 05:05 Midodrine (Pro-Amatine) 2.5 mg THREE TIMES A DAY GT 01/24/19 18:00 02/21/19 12:59 02/05/19 17:59 Tamsulosin HCl (Flomax) 0.4 mg BID ORAL 01/24/19 18:00 02/21/19 09:59 02/05/19 17:59 Vancomycin HCl (Vanco rx to dose) 1 ea DAILY PRN MISC Per rx protocol 01/29/19 15:30 02/28/19 15:29 Mukesh Betancourt MD Feb 06, 2019 07:44
[2019-02-06 08:00] VITALS: BP 117/75
--- NOTE | 2019-02-06 08:00 | NUR ---
NURSE NOTES: received pt in the bed, vent dependent,obtunded, vital signs stable, no SOB, multiple decub, dressing dry and intact, Brooks catheter with yellow urine, tolerate GT feeding well, TLC on RT IJ, dressing dry and intact, contracted, bed in low position, HOB elevated.
[2019-02-06] MEDS: Tamsulosin 0.4mg cap ORAL SCH ×2 (08:46→18:29)
[2019-02-06] MEDS: Ascorbic Acid 500mg tab GT SCH (08:46)
[2019-02-06] MEDS: Colistin for inhalation INH SCH ×2 (09:50→22:59)
[2019-02-06] MEDS ORDERED: NS 275ml ONE ×2 (10:15→10:25)
[2019-02-06] MEDS ORDERED: Tubing IV Secondary IV ONE (10:25)
[2019-02-06] MEDS ORDERED: D5W 275ml ONE (10:25)
--- NOTE | 2019-02-06 10:46 | Surgery Progress Note ---
Surgery Progress Note Subjective Additional Comments no acute events Objective Last 24 Hour Vital Signs Date Time Temp Pulse Resp B/P (MAP) Pulse Ox O2 Delivery O2 Flow Rate FiO2 02/06/19 09:29 80 21 98 Mechanical Ventilator 35 81 22 35 02/06/19 08:00 Mechanical Ventilator 02/06/19 08:00 40 02/06/19 08:00 96.4 90 25 117/75 (89) 99 02/06/19 08:00 78 02/06/19 07:36 84 24 35 02/06/19 05:18 85 23 35 02/06/19 04:00 98.6 91 25 100/56 (71) 100 02/06/19 04:00 40 02/06/19 04:00 Mechanical Ventilator 02/06/19 03:37 78 22 100 Mechanical Ventilator 40 02/06/19 03:30 80 23 40 02/06/19 01:30 77 23 40 02/06/19 00:00 40 02/06/19 00:00 Mechanical Ventilator 02/06/19 00:00 98.0 90 28 115/59 (77) 100 02/05/19 23:30 84 24 40 02/05/19 21:21 87 26 40 02/05/19 20:00 95 02/05/19 20:00 Mechanical Ventilator 02/05/19 20:00 98.1 89 22 144/65 (91) 100 02/05/19 19:20 92 26 40 02/05/19 16:56 84 20 40 02/05/19 16:00 40 02/05/19 16:00 Mechanical Ventilator 02/05/19 16:00 97.1 92 23 110/55 (73) 100 02/05/19 16:00 92 02/05/19 15:00 89 20 40 02/05/19 13:04 89 23 40 02/05/19 12:00 92 02/05/19 12:00 Mechanical Ventilator 02/05/19 12:00 40 02/05/19 12:00 97.2 90 20 107/58 (74) 100 02/05/19 10:54 96 22 40 I&O Intake and Output 02/05/19 02/06/19 18:59 06:59 Intake Total 1615.000 ml 1605 ml Output Total 380 ml 510 ml Balance 1235.000 ml 1095 ml Free Water 150 ml 100 ml IV Total 805.000 ml 900 ml Tube Feeding 660 ml 605 ml Output Urine Total 350 ml 460 ml Stool Total 30 ml 50 ml Dressing: saturated Wound: clean Drains: other Cardiovascular: RSR Respiratory: decreased breath sounds Abdomen: soft, present bowel sounds, non-distended Extremities: no cyanosis, other Plan Problems: (1) Decubitus skin ulcer Assessment & Plan: Pt presented on admission with contractures, multiple pressure injuries .Pt noted to have 3 pressure injuries L elbow. Laterally L elbow -Full thickness pressure injury with 40% slough at base of wound,60% beefy red. Small amt sanguineous exudate noted(L)1.4cm x (W)2.1cm. Pressure injury L elbow (proximal) (L)0.5cm x (W)1cm . Scattered biofilm at base of wound , borders are macerated.(Inferior) (L)0.4cm x (W)0.5cm . Base of wound moist with Biofilm. Small amt serous exudate noted. (L)0.4cm x (W)0.5cm. Full thickness sacral pressure injury. Base of wound is pink- moist with scattered biofilm,(+) maceration along borders. Non-blanching erythema without induration periwound (L)11.2cm x (W)4.5cm x (D)0.4cm. Two additional pressure injuries noted to L and R sacrum. Partial thickness L sacral pressure injury. Base of wound is moist and viable. Edges are macerated with surrounding non-blanching erythema without induration or elevation in skin temp.(L)0.9cm x (W)1.3cm.R sacral partial thickness pressure injury. Base of wound is moist and viable. Edges flat and adherent to base of wound. Non- blanching erythema without induration or elevation in skin temp.(L)2cm x (W) 1.5cm. Partial thickness pressure injury to outer R buttocks. base of wound moist and viable. Edges flat and adherent to base of wound. Non-blanching erythema periwound.(L)2.3cm x (W)2.5cm. Partial thickness pressure injury inferior but in close proximity R buttocks (L) 2cm x (W)2cm . Base of wound is moist and viable. Surrounding non-blanching erythema without induration. Erythematous and indurated area noted to L groin. No elevation in skin temp noted. Scrotal sac is also erythematous. Non-blanching erythema with fluctuance R hallux. (L)1.6cm x (W)1.7cm. Pressure injury dorsal R foot . Base of wound moist with small amt of Biofilm.(+ ) maceration along borders.(L)1.5cm x (W)1.7cm. R 1st metatarsal necrotic with soft center with slough . Small amt seropurulent exudate noted. Marginal erythema along borders. (L)1.5cm x (W)1.5cm. Non-blanching erythema without induration or fluctuance lateral malleolus(L) 2.5cm x (W)2.5cm. L heel is boggy with non-blanching erythema. R heel is boggy but pink and easily blanchable. apply Benadryl cream to abd / ext rash Tx.plan: Cleanse Sacral wound with Saline. Apply Therahoney. Apply Triad Paste periwound. Cover with Optifoam drsg. Change every 3 days and prn. Apply Triad paste to pressure injuries R and L sacrum and R outer Buttocks. Cover wounds with Optifoam drsg. Change every 3 days and prn. Apply Triad paste to groin and scrotum with each incontinence care. Cleanse wounds L elbow with saline. Apply Therahoney to wounds. Cover with Optifoam drsg. Change every 3 days and prn. Apply Betadine to wounds dorsal R foot and R 1st metatarsal . Cover with Optifoam drsg. Change daily and prn. Apply Cavilon to R hallux, R and L malleoli and both heels. Cover each site with Optifoam drsgs. Change every 7 days and prn. APM/RENETTA Mattress overlay. Reposition at least every 2hours or as tolerated. Off-load heels with Pillow. Place pillow between knees. (2) Septic shock Assessment & Plan: Leukocytosis - improved Lactic acidosis resolved off pressors on IV fluids tube feeds needs nutritional supplementation Rx as written cont current care and management will follow with recs c diff CT reviewed - No evidence of abscess or CT evidence for acute osteomyelitis/ erosion of the coccyx/sacrum in the area of the clinically demonstrated decubitus ulceration/ wound. The wound itself is not well seen on CT. Severe proctocolitis with wall thickening and inflammation as well as luminal distention due to fecal impaction. improving abx as per ID thank you (3) Feeding by G-tube Assessment & Plan: DAILY ESTIMATED NEEDS: Needs based on Critical care, wound 68kg 22-30 kcals/kg 9690-8621 total kcals 1.25-2 g protein/kg 85-136 g total protein 25-30 mL/kg 7170-7269 total fluid mLs NUTRITION DIAGNOSIS: 1) Swallowing difficulty R/T respiratory status as evidenced by pt vent dep via trach, PEG dep, on TF. 2) Increased kcal/prot needs R/T wound healing as evidenced by pt admitted w/ multiple wounds, including open sacral wound, eval pending. ENTERAL NUTRITION RECOMMENDATIONS: Vital AF 1.2 @55ml x24 hrs to provide 1320ml, 1584kcal, 99g prot, 1071ml free H20 * As medically appropriate w/ hemodynamic stability, rec elemental formula of Vital for GI tolerance. * Initiate VITAL 1.2 @ 15ml/hr x 6 hrs, advance 10ml q 4-6 hrs as tolerated to goal rate. * HOB >30 degrees/ water flushes per MD ADDITIONAL RECOMMENDATIONS: 1) Maintain calibrated bed scale wts 2) Wound healing: add Darryl 1pkt BID w/ TF order Add Vit C 250mg daily (f/up w/ WC eval) 3) F/up w/ H&P 4) Lytes daily, replete as needed (4) Vegetative state Jimmy Tang Feb 06, 2019 10:46
--- NOTE | 2019-02-06 10:56 | Nephrology Progress Note ---
Assessment/Plan Problem List: (1) Hypokalemia (2) HARDEEP (acute kidney injury) (3) Sepsis (4) Hyponatremia Assessment HARDEEP (acute kidney injury) HypoNatremia Septic shock Others: HCAP (healthcare-associated pneumonia) Chronic respiratory failure Ventilator dependence Vegetative state History of CVA (cerebrovascular accident) Feeding by G-tube HTN (hypertension) Cerebral vascular disease Plan K Phos mag as needed Hydrate monitor renal parameters Midodrine Antibiotics Avoid nephrotoxics Brooks could not be put in due to resistance start flomax per order Subjective ROS Limited/Unobtainable: Yes Objective Objective Last 24 Hour Vital Signs Date Time Temp Pulse Resp B/P (MAP) Pulse Ox O2 Delivery O2 Flow Rate FiO2 02/06/19 10:51 80 22 35 02/06/19 09:29 80 21 98 Mechanical Ventilator 35 81 22 35 02/06/19 08:00 Mechanical Ventilator 02/06/19 08:00 40 02/06/19 08:00 96.4 90 25 117/75 (89) 99 02/06/19 08:00 78 02/06/19 07:36 84 24 35 02/06/19 05:18 85 23 35 02/06/19 04:00 98.6 91 25 100/56 (71) 100 02/06/19 04:00 40 02/06/19 04:00 Mechanical Ventilator 02/06/19 03:37 78 22 100 Mechanical Ventilator 40 02/06/19 03:30 80 23 40 02/06/19 01:30 77 23 40 02/06/19 00:00 40 02/06/19 00:00 Mechanical Ventilator 02/06/19 00:00 98.0 90 28 115/59 (77) 100 02/05/19 23:30 84 24 40 02/05/19 21:21 87 26 40 02/05/19 20:00 95 02/05/19 20:00 Mechanical Ventilator 02/05/19 20:00 98.1 89 22 144/65 (91) 100 02/05/19 19:20 92 26 40 02/05/19 16:56 84 20 40 02/05/19 16:00 40 02/05/19 16:00 Mechanical Ventilator 02/05/19 16:00 97.1 92 23 110/55 (73) 100 02/05/19 16:00 92 02/05/19 15:00 89 20 40 02/05/19 13:04 89 23 40 02/05/19 12:00 92 02/05/19 12:00 Mechanical Ventilator 02/05/19 12:00 40 02/05/19 12:00 97.2 90 20 107/58 (74) 100 Intake and Output 02/05/19 02/06/19 18:59 06:59 Intake Total 1615.000 ml 1605 ml Output Total 380 ml 510 ml Balance 1235.000 ml 1095 ml Free Water 150 ml 100 ml IV Total 805.000 ml 900 ml Tube Feeding 660 ml 605 ml Output Urine Total 350 ml 460 ml Stool Total 30 ml 50 ml Height (Feet): 5 Height (Inches): 6.00 Weight (Pounds): 211 General Appearance: no apparent distress EENT: other - trached Cardiovascular: tachycardia Respiratory/Chest: decreased breath sounds Abdomen: distended Objective no change Sergey Rivera MD Feb 06, 2019 10:56
[2019-02-06] MEDS: Vancomycin 1.25gm/NS Premix IVPB SCH ×2 (11:23→22:45)
[2019-02-06 12:00] VITALS: BP 102/66
--- NOTE | 2019-02-06 13:49 | NUR ---
NURSE NOTES: vital signs stable, repositioned, bed bath given, continue monitoring.
--- NOTE | 2019-02-06 14:07 | Urology Progress Note ---
Assessment/Plan Status: unchanged Assessment/Plan: 1. Sepsis. 2. Incontinence. 3. Neurogenic bladder. 4. Proteinuria. 5. Hematuria. 6. Pyuria. 7. History of nephrolithiasis. 8. Urethral stricture. maintain hernández, do not remove switch to larger size hernández at some point hand irrigated and do PRN abx as ordered, ID on case f/u on last blood cx on flomax BID Subjective Allergies: Coded Allergies: OXYTETRACYCLINE (Unverified Allergy, Unknown, 09/05/13) PENICILLINS (Unverified Allergy, Unknown, 06/11/17) Tolerated one dose of Cefepime 06/07/17 Tolerated Cefdinir 06/10/17 Uncoded Allergies: PLASTIC TAPE (Allergy, Mild, ITCHINESS, 08/08/15) MEDICAL TAPE (Allergy, Unknown, 12/10/16) Subjective all noted Objective Last 24 Hour Vital Signs Date Time Temp Pulse Resp B/P (MAP) Pulse Ox O2 Delivery O2 Flow Rate FiO2 02/06/19 12:46 83 22 35 02/06/19 12:00 40 02/06/19 12:00 95 02/06/19 12:00 96.3 86 22 102/66 (78) 98 02/06/19 12:00 Mechanical Ventilator 02/06/19 10:51 80 22 35 02/06/19 09:29 80 21 98 Mechanical Ventilator 35 81 22 35 02/06/19 08:00 Mechanical Ventilator 02/06/19 08:00 40 02/06/19 08:00 96.4 90 25 117/75 (89) 99 02/06/19 08:00 78 02/06/19 07:36 84 24 35 02/06/19 05:18 85 23 35 02/06/19 04:00 98.6 91 25 100/56 (71) 100 02/06/19 04:00 40 02/06/19 04:00 Mechanical Ventilator 02/06/19 03:37 78 22 100 Mechanical Ventilator 40 02/06/19 03:30 80 23 40 02/06/19 01:30 77 23 40 02/06/19 00:00 40 02/06/19 00:00 Mechanical Ventilator 02/06/19 00:00 98.0 90 28 115/59 (77) 100 02/05/19 23:30 84 24 40 11/16/19 21:21 87 26 40 02/05/19 20:00 95 02/05/19 20:00 Mechanical Ventilator 02/05/19 20:00 98.1 89 22 144/65 (91) 100 02/05/19 19:20 92 26 40 02/05/19 16:56 84 20 40 02/05/19 16:00 40 02/05/19 16:00 Mechanical Ventilator 02/05/19 16:00 97.1 92 23 110/55 (73) 100 02/05/19 16:00 92 02/05/19 15:00 89 20 40 Intake and Output 02/05/19 02/06/19 18:59 06:59 Intake Total 1615.000 ml 1605 ml Output Total 380 ml 510 ml Balance 1235.000 ml 1095 ml Free Water 150 ml 100 ml IV Total 805.000 ml 900 ml Tube Feeding 660 ml 605 ml Output Urine Total 350 ml 460 ml Stool Total 30 ml 50 ml Microbiology Date/Time Source Procedure Growth Status 02/01/19 12:40 Blood Blood Culture - Preliminary NO GROWTH AFTER 4 DAYS Resulted 02/02/19 18:00 Sputum Gram Stain - Final Complete 02/02/19 18:00 Sputum Culture - Final Pseudomonas Aeruginosa Complete 01/22/19 17:23 Stool Clostridium difficile Toxin Assay - Final Complete 02/04/19 15:00 Straight Cath Urine Culture - Preliminary NO GROWTH AFTER 24 HOURS Resulted 01/22/19 02:10 Rectum - Final Escherichia Coli - Cre Complete Current Medications Medications (Trade) Dose Ordered Sig/Sima Route PRN Reason Start Time Stop Time Status Last Admin Dose Admin Acetaminophen (Tylenol) 650 mg Q4H PRN GT Mild Pain/Temp > 100.5 01/24/19 15:28 02/23/19 15:27 01/31/19 20:31 Acetaminophen/ Hydrocodone Bitart ([place] 10/325) 1 tab Q4H PRN GT For Pain 01/31/19 22:30 02/07/19 22:29 Ascorbic Acid (Vitamin C) 250 mg DAILY GT 01/25/19 09:00 02/24/19 08:59 02/06/19 08:46 Chlorhexidine Gluconate (Paulina-Hex 2%) 1 applic DAILY@1999 TOPIC 02/05/19 20:00 03/07/19 19:59 02/05/19 20:23 Colistimethate Sodium (Colistin *inhalation use only*) 75 mg Q12HR@10,22 INH 02/05/19 22:00 02/12/19 21:59 02/06/19 09:50 Dextrose 1,000 ml @ 100 mls/hr Q10H IV 02/05/19 11:00 03/07/19 10:59 02/06/19 07:19 Dextrose (Dextrose 50%) 25 ml Q30M PRN IV Hypoglycemia 01/24/19 15:30 02/21/19 06:29 Dextrose (Dextrose 50%) 50 ml Q30M PRN IV Hypoglycemia 01/24/19 15:30 02/21/19 06:29 Diphenhydramine HCl (Benadryl Cream) 1 applic TIDPRN PRN TOPIC Itching 02/01/19 15:00 03/03/19 14:59 02/02/19 11:25 Famotidine (Pepcid I.v.) 20 mg Q12HR IVP 01/24/19 21:00 02/23/19 20:59 02/06/19 08:47 Fidaxomicin (Dificid) 200 mg EVERY 12 HOURS ORAL 02/01/19 12:00 02/10/19 21:01 02/06/19 08:46 Heparin Sodium/ Sodium Chloride (Heparin 1000 units/500ml Premix) 1,000 unit ONCE PRN IV picc line placement 02/05/19 14:15 02/07/19 14:14 Insulin Aspart (NovoLOG) Q6HR SUBQ 01/26/19 12:00 02/21/19 07:29 02/06/19 12:25 Lidocaine HCl (Xylocaine 1% 30ml) 30 ml ONCE PRN INJ picc line placement 02/05/19 14:15 02/07/19 14:14 Midodrine (Pro-Amatine) 2.5 mg THREE TIMES A DAY GT 01/24/19 18:00 02/21/19 12:59 02/06/19 12:25 Tamsulosin HCl (Flomax) 0.4 mg BID ORAL 01/24/19 18:00 02/21/19 09:59 02/06/19 08:46 Vancomycin HCl (Vanco rx to dose) 1 ea DAILY PRN MISC Per rx protocol 01/29/19 15:30 02/28/19 15:29 Vancomycin/Sodium Chloride 275 ml @ 183.333 mls/hr Q12HR@1100,2300 IVPB 02/06/19 11:00 02/11/19 10:59 02/06/19 11:23 Height (Feet): 5 Height (Inches): 6.00 Weight (Pounds): 211 Objective exam stable hernández indwelling, urine yellow/abhay no active bleeding at meatus renal u/s (01/23) noted pelvic CT (01/28) noted Jake Pierre MD Feb 06, 2019 14:07
[2019-02-06 16:00] VITALS: BP 107/63
--- NOTE | 2019-02-06 19:00 | Progress Note ---
DATE: 02/06/2019 SUBJECTIVE: The patient is awake, alert, afebrile, and hemodynamically stable. Eyes are open and no eye contact. PHYSICAL EXAMINATION: VITAL SIGNS: Blood pressure is 107/63, pulse 85, respirations were 25, and temperature is 96.3. HEENT: Eyes were normal. ENT, mucous membranes were moist and intact. NECK: Supple with no JVD without lymph nodes. Tracheostomy site is clean. LUNGS: Clear without rhonchi, rales, or wheezing. Secretions are small, thin, and white. HEART: Normal sounds with regular beats. There is no tachycardia at rest. Yesterday, his heart was between 95 to 100. Today, the heart rate is between 80 to 85. ABDOMEN: Soft, nontender, with normal bowel sounds. Gastrostomy site is clean. His rectal tube has diarrhea, which is not watery anymore. EXTREMITIES: Warm without cyanosis, clubbing, or edema. LABORATORY DATA: No laboratory data available at the time of this dictation. IMPRESSION: The patient clinically is improving on a daily basis. Repeat laboratory tests will be done in the a.m. The patient is currently on vancomycin 1 g IV piggyback q.12 h. He is on colistin 75 mg IV piggyback q.12 h. His meropenem has been . He continued to be on 200 mg b.i.d. Repeat laboratory tests will be done in the a.m. Boris Arevalo M.D. DR: AMY JOB#: [id number] CC:
--- NOTE | 2019-02-06 19:00 | NUR ---
HAND-OFF: Report given to Tomas AUSTIN, no distress at this time.
--- NOTE | 2019-02-06 19:21 | NUR ---
NURSE NOTES: Received patient from Caity Cartwright RN. Patient is obtunded, receiving oxygen via trach to vent: Portex 7, AC 16, TV 500, Fio2 40%, PEEP 5 patient's O2 Saturation at 100%. Brooks catheter is patent and draining. Rectal tube is intact and draining. IV site is Right IJ TLC receiving D5W at 100cc/hr. Bed is locked, placed in lowest position, side rails up x3, head of bed elevated, bed alarm on, call light within reach. Will continue to monitor.
[2019-02-06 20:00] VITALS: BP 131/64
[2019-02-06] MEDS: Dyna-Hex 2% Top Sol 2oz TOPIC SCH (20:16)
--- NOTE | 2019-02-06 20:41 | NUR ---
NURSE NOTES: When assessing Vital Signs, patient's oral temperature read 93.8 degrees Fahrenheit, checked left and right axillary temperatures and both read below 93 degrees Fahrenheit. Placed Vicenta Hugger and extra blankets on patient. Will continue to monitor.
--- NOTE | 2019-02-06 21:34 | NUR ---
NURSE NOTES: Patient's axillary temperature read 93.3 Degrees Fahrenheit on reassessment. Vicenta laguna remains on patient on high setting and blankets are covering patient. Will continue to monitor.
[2019-02-07] VITALS: BP 125/67
[2019-02-07 04:00] VITALS: BP 107/63
[2019-02-07 05:11] LABS: BASOPHILS % (AUTO) 0.8 % (0.0-2.0); EOSINOPHILS % (AUTO) 16.3 % (0.0-3.0); HEMATOCRIT 28.2 % (42.0-52.0); HEMOGLOBIN 9.5 G/DL (14.2-18.0); LYMPHOCYTES % (AUTO) 15.8 % (20.0-45.0); MEAN CORPUSCULAR VOLUME 89 FL (80-99); MONOCYTES % (AUTO) 4.1 % (1.0-10.0); NEUTROPHILS % (AUTO) 63.1 % (45.0-75.0); PLATELET COUNT 271 K/UL (150-450); RED BLOOD COUNT 3.17 M/UL (4.70-6.10)
[2019-02-07 05:26] LABS: ALANINE AMINOTRANSFERASE 35 U/L (12-78); ALBUMIN/GLOBULIN RATIO 0.3 (1.0-2.7); ALKALINE PHOSPHATASE 253 U/L (46-116); ANION GAP 9 mmol/L (5-15); ASPARTATE AMINO TRANSFERASE 46 U/L (15-37); BILIRUBIN,TOTAL 0.2 MG/DL (0.2-1.0); BLOOD UREA NITROGEN 15 mg/dL (7-18); CALCIUM 7.4 MG/DL (8.5-10.1); CARBON DIOXIDE 22 MMOL/L (21-32); CHLORIDE 112 MMOL/L (98-107); CREATININE 0.5 MG/DL (0.55-1.30); POTASSIUM 3.8 MMOL/L (3.5-5.1); SODIUM 142 MMOL/L (136-145)
[2019-02-07] MEDS: NovoLOG Insulin Flexpen SUBQ SCH ×3 (06:13→18:00)
--- NOTE | 2019-02-07 07:42 | NUR ---
HAND-OFF: Report given to Caity Cartwright RN.
[2019-02-07 08:00] VITALS: BP 112/67
--- NOTE | 2019-02-07 08:10 | NUR ---
NURSE NOTES: received pt in the bed, vent dependent, obtunded,vital signs stable, no SOB, tolerate GT feeding well. Brooks catheter with yellow urine, rectal tube, multiple decub, dressing dry and intact, TLC on RT IJ, dressing dry and intact, contracted, bed in low position, HOB elevated.
[2019-02-07] MEDS: Tamsulosin 0.4mg cap ORAL SCH ×2 (08:44→18:16)
[2019-02-07] MEDS: Ascorbic Acid 500mg tab GT SCH (08:44)
--- NOTE | 2019-02-07 08:57 | Urology Progress Note ---
Assessment/Plan Status: unchanged Assessment/Plan: 1. Sepsis. 2. Incontinence. 3. Neurogenic bladder. 4. Proteinuria. 5. Hematuria. 6. Pyuria. 7. History of nephrolithiasis. 8. Urethral stricture. maintain hernández, do not remove switch to larger size hernández at some point hand irrigated and do PRN abx as ordered, ID on case on flomax BID Subjective Allergies: Coded Allergies: OXYTETRACYCLINE (Unverified Allergy, Unknown, 09/05/13) PENICILLINS (Unverified Allergy, Unknown, 06/11/17) Tolerated one dose of Cefepime 06/07/17 Tolerated Cefdinir 06/10/17 Uncoded Allergies: PLASTIC TAPE (Allergy, Mild, ITCHINESS, 08/08/15) MEDICAL TAPE (Allergy, Unknown, 12/10/16) Subjective all noted Objective Last 24 Hour Vital Signs Date Time Temp Pulse Resp B/P (MAP) Pulse Ox O2 Delivery O2 Flow Rate FiO2 02/07/19 08:00 97.8 99 26 112/67 (82) 99 02/07/19 08:00 40 02/07/19 08:00 Mechanical Ventilator 02/07/19 07:02 98 24 35 02/07/19 05:41 101 24 35 02/07/19 04:00 Mechanical Ventilator 02/07/19 04:00 98.0 95 23 107/63 (78) 100 02/07/19 04:00 40 02/07/19 03:28 85 19 35 02/07/19 03:28 93 02/07/19 01:16 91 21 35 02/07/19 00:00 96 02/07/19 00:00 Mechanical Ventilator 02/07/19 00:00 97.4 95 23 125/67 (86) 95 02/06/19 22:59 86 19 100 Mechanical Ventilator 35 86 16 35 02/06/19 21:33 83 21 35 02/06/19 20:55 85 02/06/19 20:00 93.8 84 22 131/64 (86) 99 02/06/19 20:00 Mechanical Ventilator 02/06/19 20:00 40 02/06/19 19:33 85 28 35 02/06/19 17:24 80 20 35 02/06/19 16:10 83 02/06/19 16:00 96.0 85 25 107/63 (78) 100 02/06/19 16:00 Mechanical Ventilator 02/06/19 16:00 40 02/06/19 15:21 89 23 35 02/06/19 12:46 83 22 35 02/06/19 12:00 40 02/06/19 12:00 95 02/06/19 12:00 96.3 86 22 102/66 (78) 98 02/06/19 12:00 Mechanical Ventilator 02/06/19 10:51 80 22 35 02/06/19 09:29 80 21 98 Mechanical Ventilator 35 81 22 35 Intake and Output 02/06/19 02/07/19 19:00 07:00 Intake Total 2036.660 ml 1305 ml Output Total 300 ml 350 ml Balance 1736.660 ml 955 ml Free Water 150 ml IV Total 1226.660 ml 700 ml Tube Feeding 660 ml 605 ml Output Urine Total 250 ml 350 ml Stool Total 50 ml Microbiology Date/Time Source Procedure Growth Status 02/01/19 12:40 Blood Blood Culture - Final NO GROWTH AFTER 5 DAYS Complete 02/02/19 18:00 Sputum Gram Stain - Final Complete 02/02/19 18:00 Sputum Culture - Final Pseudomonas Aeruginosa Complete 01/22/19 17:23 Stool Clostridium difficile Toxin Assay - Final Complete 02/04/19 15:00 Straight Cath Urine Culture - Final NO GROWTH AFTER 48 HOURS Complete 01/22/19 02:10 Rectum - Final Escherichia Coli - Cre Complete Current Medications Medications (Trade) Dose Ordered Sig/Sima Route PRN Reason Start Time Stop Time Status Last Admin Dose Admin Acetaminophen (Tylenol) 650 mg Q4H PRN GT Mild Pain/Temp > 100.5 01/24/19 15:28 02/23/19 15:27 01/31/19 20:31 Acetaminophen/ Hydrocodone Bitart ([place] 10/325) 1 tab Q4H PRN GT For Pain 01/31/19 22:30 02/07/19 22:29 Ascorbic Acid (Vitamin C) 250 mg DAILY GT 01/25/19 09:00 02/24/19 08:59 02/07/19 08:44 Chlorhexidine Gluconate (Paulina-Hex 2%) 1 applic DAILY@1999 TOPIC 02/05/19 20:00 03/07/19 19:59 02/06/19 20:16 Colistimethate Sodium (Colistin *inhalation use only*) 75 mg Q12HR@10,22 INH 02/05/19 22:00 02/12/19 21:59 02/06/19 22:59 Dextrose 1,000 ml @ 100 mls/hr Q10H IV 02/05/19 11:00 03/07/19 10:59 02/07/19 03:00 Dextrose (Dextrose 50%) 25 ml Q30M PRN IV Hypoglycemia 01/24/19 15:30 02/21/19 06:29 Dextrose (Dextrose 50%) 50 ml Q30M PRN IV Hypoglycemia 01/24/19 15:30 02/21/19 06:29 Diphenhydramine HCl (Benadryl Cream) 1 applic TIDPRN PRN TOPIC Itching 02/01/19 15:00 03/03/19 14:59 02/02/19 11:25 Famotidine (Pepcid I.v.) 20 mg Q12HR IVP 01/24/19 21:00 02/23/19 20:59 02/07/19 08:44 Fidaxomicin (Dificid) 200 mg EVERY 12 HOURS ORAL 02/01/19 12:00 02/10/19 21:01 02/07/19 08:44 Heparin Sodium/ Sodium Chloride (Heparin 1000 units/500ml Premix) 1,000 unit ONCE PRN IV picc line placement 02/05/19 14:15 02/07/19 14:14 Insulin Aspart (NovoLOG) Q6HR SUBQ 01/26/19 12:00 02/21/19 07:29 02/07/19 06:13 Lidocaine HCl (Xylocaine 1% 30ml) 30 ml ONCE PRN INJ picc line placement 02/05/19 14:15 02/07/19 14:14 Midodrine (Pro-Amatine) 2.5 mg THREE TIMES A DAY GT 01/24/19 18:00 02/21/19 12:59 02/07/19 08:43 Tamsulosin HCl (Flomax) 0.4 mg BID ORAL 01/24/19 18:00 02/21/19 09:59 02/07/19 08:44 Vancomycin HCl (Vanco rx to dose) 1 ea DAILY PRN MISC Per rx protocol 01/29/19 15:30 02/28/19 15:29 Vancomycin/Sodium Chloride 275 ml @ 183.333 mls/hr Q12HR@1100,2300 IVPB 02/06/19 11:00 02/11/19 10:59 02/06/19 22:45 Laboratory Tests 02/07/19 03:39: White Blood Count 10.0, Red Blood Count 3.17L, Hemoglobin 9.5L, Hematocrit 28.2L , Mean Corpuscular Volume 89, Mean Corpuscular Hemoglobin 30.0, Mean Corpuscular Hemoglobin Concent 33.7, Red Cell Distribution Width 15.0H, Platelet Count 271, Mean Platelet Volume 7.5, Neutrophils (%) (Auto) 63.1, Lymphocytes (%) (Auto) 15.8L, Monocytes (%) (Auto) 4.1, Eosinophils (%) (Auto) 16.3H, Basophils (%) (Auto) 0.8, Sodium Level 142, Potassium Level 3.8, Chloride Level 112H, Carbon Dioxide Level 22, Anion Gap 9, Blood Urea Nitrogen 15, Creatinine 0.5L, Estimat Glomerular Filtration Rate > 60, Glucose Level 150H , Calcium Level 7.4L, Total Bilirubin 0.2, Aspartate Amino Transf (AST/SGOT) 46H , Alanine Aminotransferase (ALT/SGPT) 35, Alkaline Phosphatase 253H, Total Protein 4.8L, Albumin 1.0L, Globulin 3.8, Albumin/Globulin Ratio 0.3L Height (Feet): 5 Height (Inches): 6.00 Weight (Pounds): 210 Objective exam stable hernández indwelling, urine yellow/abhay no active bleeding at meatus renal u/s (01/23) noted pelvic CT (01/28) noted Jake Pierre MD Feb 07, 2019 08:57
--- NOTE | 2019-02-07 10:10 | Surgery Progress Note ---
Surgery Progress Note Subjective Additional Comments desaturation this AM on support leukocytosis resolved rectal tube with diarrhea labs noted exam stable Objective Last 24 Hour Vital Signs Date Time Temp Pulse Resp B/P (MAP) Pulse Ox O2 Delivery O2 Flow Rate FiO2 02/07/19 09:26 92 23 35 02/07/19 08:00 92 02/07/19 08:00 97.8 99 26 112/67 (82) 99 02/07/19 08:00 40 02/07/19 08:00 Mechanical Ventilator 02/07/19 07:02 98 24 35 02/07/19 05:41 101 24 35 02/07/19 04:00 Mechanical Ventilator 02/07/19 04:00 98.0 95 23 107/63 (78) 100 02/07/19 04:00 40 02/07/19 03:28 85 19 35 02/07/19 03:28 93 02/07/19 01:16 91 21 35 02/07/19 00:00 96 02/07/19 00:00 Mechanical Ventilator 02/07/19 00:00 97.4 95 23 125/67 (86) 95 02/06/19 22:59 86 19 100 Mechanical Ventilator 35 86 16 35 02/06/19 21:33 83 21 35 02/06/19 20:55 85 02/06/19 20:00 93.8 84 22 131/64 (86) 99 02/06/19 20:00 Mechanical Ventilator 02/06/19 20:00 40 02/06/19 19:33 85 28 35 02/06/19 17:24 80 20 35 02/06/19 16:10 83 02/06/19 16:00 96.0 85 25 107/63 (78) 100 02/06/19 16:00 Mechanical Ventilator 02/06/19 16:00 40 02/06/19 15:21 89 23 35 02/06/19 12:46 83 22 35 02/06/19 12:00 40 02/06/19 12:00 95 02/06/19 12:00 96.3 86 22 102/66 (78) 98 02/06/19 12:00 Mechanical Ventilator 02/06/19 10:51 80 22 35 I&O Intake and Output 02/06/19 02/07/19 19:00 07:00 Intake Total 2036.660 ml 1305 ml Output Total 300 ml 350 ml Balance 1736.660 ml 955 ml Free Water 150 ml IV Total 1226.660 ml 700 ml Tube Feeding 660 ml 605 ml Output Urine Total 250 ml 350 ml Stool Total 50 ml Dressing: saturated Wound: other Drains: other Cardiovascular: RSR Respiratory: decreased breath sounds Abdomen: soft, present bowel sounds, non-distended Extremities: no cyanosis, other Laboratory Tests Test 02/07/19 03:39 White Blood Count 10.0 K/UL (4.8-10.8) Red Blood Count 3.17 M/UL (4.70-6.10) L Hemoglobin 9.5 G/DL (14.2-18.0) L Hematocrit 28.2 % (42.0-52.0) L Mean Corpuscular Volume 89 FL (80-99) Mean Corpuscular Hemoglobin 30.0 PG (27.0-31.0) Mean Corpuscular Hemoglobin Concent 33.7 G/DL (32.0-36.0) Red Cell Distribution Width 15.0 % (11.6-14.8) H Platelet Count 271 K/UL (150-450) Mean Platelet Volume 7.5 FL (6.5-10.1) Neutrophils (%) (Auto) 63.1 % (45.0-75.0) Lymphocytes (%) (Auto) 15.8 % (20.0-45.0) L Monocytes (%) (Auto) 4.1 % (1.0-10.0) Eosinophils (%) (Auto) 16.3 % (0.0-3.0) H Basophils (%) (Auto) 0.8 % (0.0-2.0) Sodium Level 142 MMOL/L (136-145) Potassium Level 3.8 MMOL/L (3.5-5.1) Chloride Level 112 MMOL/L (98-107) H Carbon Dioxide Level 22 MMOL/L (21-32) Anion Gap 9 mmol/L (5-15) Blood Urea Nitrogen 15 mg/dL (7-18) Creatinine 0.5 MG/DL (0.55-1.30) L Estimat Glomerular Filtration Rate > 60 mL/min (>60) Glucose Level 150 MG/DL (74-106) H Calcium Level 7.4 MG/DL (8.5-10.1) L Total Bilirubin 0.2 MG/DL (0.2-1.0) Aspartate Amino Transf (AST/SGOT) 46 U/L (15-37) H Alanine Aminotransferase (ALT/SGPT) 35 U/L (12-78) Alkaline Phosphatase 253 U/L (46-116) H Total Protein 4.8 G/DL (6.4-8.2) L Albumin 1.0 G/DL (3.4-5.0) L Globulin 3.8 g/dL Albumin/Globulin Ratio 0.3 (1.0-2.7) L Plan Problems: (1) Decubitus skin ulcer Assessment & Plan: Pt presented on admission with contractures, multiple pressure injuries .Pt noted to have 3 pressure injuries L elbow. Laterally L elbow -Full thickness pressure injury with 40% slough at base of wound,60% beefy red. Small amt sanguineous exudate noted(L)1.4cm x (W)2.1cm. Pressure injury L elbow (proximal) (L)0.5cm x (W)1cm . Scattered biofilm at base of wound , borders are macerated.(Inferior) (L)0.4cm x (W)0.5cm . Base of wound moist with Biofilm. Small amt serous exudate noted. (L)0.4cm x (W)0.5cm. Full thickness sacral pressure injury. Base of wound is pink- moist with scattered biofilm,(+) maceration along borders. Non-blanching erythema without induration periwound (L)11.2cm x (W)4.5cm x (D)0.4cm. Two additional pressure injuries noted to L and R sacrum. Partial thickness L sacral pressure injury. Base of wound is moist and viable. Edges are macerated with surrounding non-blanching erythema without induration or elevation in skin temp.(L)0.9cm x (W)1.3cm.R sacral partial thickness pressure injury. Base of wound is moist and viable. Edges flat and adherent to base of wound. Non- blanching erythema without induration or elevation in skin temp.(L)2cm x (W) 1.5cm. Partial thickness pressure injury to outer R buttocks. base of wound moist and viable. Edges flat and adherent to base of wound. Non-blanching erythema periwound.(L)2.3cm x (W)2.5cm. Partial thickness pressure injury inferior but in close proximity R buttocks (L) 2cm x (W)2cm . Base of wound is moist and viable. Surrounding non-blanching erythema without induration. Erythematous and indurated area noted to L groin. No elevation in skin temp noted. Scrotal sac is also erythematous. Non-blanching erythema with fluctuance R hallux. (L)1.6cm x (W)1.7cm. Pressure injury dorsal R foot . Base of wound moist with small amt of Biofilm.(+ ) maceration along borders.(L)1.5cm x (W)1.7cm. R 1st metatarsal necrotic with soft center with slough . Small amt seropurulent exudate noted. Marginal erythema along borders. (L)1.5cm x (W)1.5cm. Non-blanching erythema without induration or fluctuance lateral malleolus(L) 2.5cm x (W)2.5cm. L heel is boggy with non-blanching erythema. R heel is boggy but pink and easily blanchable. apply Benadryl cream to abd / ext rash Tx.plan: Cleanse Sacral wound with Saline. Apply Therahoney. Apply Triad Paste periwound. Cover with Optifoam drsg. Change every 3 days and prn. Apply Triad paste to pressure injuries R and L sacrum and R outer Buttocks. Cover wounds with Optifoam drsg. Change every 3 days and prn. Apply Triad paste to groin and scrotum with each incontinence care. Cleanse wounds L elbow with saline. Apply Therahoney to wounds. Cover with Optifoam drsg. Change every 3 days and prn. Apply Betadine to wounds dorsal R foot and R 1st metatarsal . Cover with Optifoam drsg. Change daily and prn. Apply Cavilon to R hallux, R and L malleoli and both heels. Cover each site with Optifoam drsgs. Change every 7 days and prn. APM/RENETTA Mattress overlay. Reposition at least every 2hours or as tolerated. Off-load heels with Pillow. Place pillow between knees. (2) Septic shock Assessment & Plan: Leukocytosis - improved Lactic acidosis resolved off pressors on IV fluids tube feeds needs nutritional supplementation Rx as written cont current care and management will follow with recs c diff CT reviewed - No evidence of abscess or CT evidence for acute osteomyelitis/ erosion of the coccyx/sacrum in the area of the clinically demonstrated decubitus ulceration/ wound. The wound itself is not well seen on CT. Severe proctocolitis with wall thickening and inflammation as well as luminal distention due to fecal impaction. rectal tube with diarrhea improving abx as per ID thank you (3) Feeding by G-tube Assessment & Plan: DAILY ESTIMATED NEEDS: Needs based on Critical care, wound 68kg 22-30 kcals/kg 1048-3228 total kcals 1.25-2 g protein/kg 85-136 g total protein 25-30 mL/kg 5180-9974 total fluid mLs NUTRITION DIAGNOSIS: 1) Swallowing difficulty R/T respiratory status as evidenced by pt vent dep via trach, PEG dep, on TF. 2) Increased kcal/prot needs R/T wound healing as evidenced by pt admitted w/ multiple wounds, including open sacral wound, eval pending. ENTERAL NUTRITION RECOMMENDATIONS: Vital AF 1.2 @55ml x24 hrs to provide 1320ml, 1584kcal, 99g prot, 1071ml free H20 * As medically appropriate w/ hemodynamic stability, rec elemental formula of Vital for GI tolerance. * Initiate VITAL 1.2 @ 15ml/hr x 6 hrs, advance 10ml q 4-6 hrs as tolerated to goal rate. * HOB >30 degrees/ water flushes per MD ADDITIONAL RECOMMENDATIONS: 1) Maintain calibrated bed scale wts 2) Wound healing: add Darryl 1pkt BID w/ TF order Add Vit C 250mg daily (f/up w/ WC eval) 3) F/up w/ H&P 4) Lytes daily, replete as needed (4) Vegetative state Jimmy Tang Feb 07, 2019 10:10
[2019-02-07] MEDS: Colistin for inhalation INH SCH (10:20)
--- NOTE | 2019-02-07 10:22 | General Progress Note ---
Assessment/Plan Status: unchanged Assessment/Plan: (1) Clostridium difficile diarrhea ICD Codes: A04.72 - Enterocolitis due to Clostridium difficile, not specified as recurrent SNOMED: 3432675506297 (2) Severe sepsis ICD Codes: A41.9 - Sepsis, unspecified organism; R65.20 - Severe sepsis without septic shock SNOMED: 43031718 (3) Feeding by G-tube ICD Codes: Z93.1 - Feeding by G-tube SNOMED: 007980141 (4) Diarrhea ICD Codes: R19.7 - Diarrhea, unspecified SNOMED: 74645320 (5) Upper GI bleed ICD Codes: K92.2 - Gastrointestinal hemorrhage, unspecified SNOMED: 91747140 Assessment/Plan No plans for GI procedures at this time given sepsis. Monitor H&H, PRN transfusions Hold PPI given C. difficile H2B Antibiotics per infectious diseases for C. difficile>>> good response to Dificit IV hydration plus electrolyte correction GTF Follow labs recent CT reviewed Subjective ROS Limited/Unobtainable: No Allergies: Coded Allergies: OXYTETRACYCLINE (Unverified Allergy, Unknown, 09/05/13) PENICILLINS (Unverified Allergy, Unknown, 06/11/17) Tolerated one dose of Cefepime 06/07/17 Tolerated Cefdinir 06/10/17 Uncoded Allergies: PLASTIC TAPE (Allergy, Mild, ITCHINESS, 08/08/15) MEDICAL TAPE (Allergy, Unknown, 12/10/16) Objective Last 24 Hour Vital Signs Date Time Temp Pulse Resp B/P (MAP) Pulse Ox O2 Delivery O2 Flow Rate FiO2 02/07/19 09:26 92 23 35 02/07/19 08:00 92 02/07/19 08:00 97.8 99 26 112/67 (82) 99 02/07/19 08:00 40 02/07/19 08:00 Mechanical Ventilator 02/07/19 07:02 98 24 35 02/07/19 05:41 101 24 35 02/07/19 04:00 Mechanical Ventilator 02/07/19 04:00 98.0 95 23 107/63 (78) 100 02/07/19 04:00 40 02/07/19 03:28 85 19 35 02/07/19 03:28 93 02/07/19 01:16 91 21 35 02/07/19 00:00 96 02/07/19 00:00 Mechanical Ventilator 02/07/19 00:00 97.4 95 23 125/67 (86) 95 02/06/19 22:59 86 19 100 Mechanical Ventilator 35 86 16 35 02/06/19 21:33 83 21 35 02/06/19 20:55 85 02/06/19 20:00 93.8 84 22 131/64 (86) 99 02/06/19 20:00 Mechanical Ventilator 02/06/19 20:00 40 02/06/19 19:33 85 28 35 02/06/19 17:24 80 20 35 02/06/19 16:10 83 02/06/19 16:00 96.0 85 25 107/63 (78) 100 02/06/19 16:00 Mechanical Ventilator 02/06/19 16:00 40 02/06/19 15:21 89 23 35 02/06/19 12:46 83 22 35 02/06/19 12:00 40 02/06/19 12:00 95 02/06/19 12:00 96.3 86 22 102/66 (78) 98 02/06/19 12:00 Mechanical Ventilator 02/06/19 10:51 80 22 35 Intake and Output 02/06/19 02/07/19 19:00 07:00 Intake Total 2036.660 ml 1305 ml Output Total 300 ml 350 ml Balance 1736.660 ml 955 ml Free Water 150 ml IV Total 1226.660 ml 700 ml Tube Feeding 660 ml 605 ml Output Urine Total 250 ml 350 ml Stool Total 50 ml Laboratory Tests 02/07/19 03:39: White Blood Count 10.0, Red Blood Count 3.17L, Hemoglobin 9.5L, Hematocrit 28.2L , Mean Corpuscular Volume 89, Mean Corpuscular Hemoglobin 30.0, Mean Corpuscular Hemoglobin Concent 33.7, Red Cell Distribution Width 15.0H, Platelet Count 271, Mean Platelet Volume 7.5, Neutrophils (%) (Auto) 63.1, Lymphocytes (%) (Auto) 15.8L, Monocytes (%) (Auto) 4.1, Eosinophils (%) (Auto) 16.3H, Basophils (%) (Auto) 0.8, Sodium Level 142, Potassium Level 3.8, Chloride Level 112H, Carbon Dioxide Level 22, Anion Gap 9, Blood Urea Nitrogen 15, Creatinine 0.5L, Estimat Glomerular Filtration Rate > 60, Glucose Level 150H , Calcium Level 7.4L, Total Bilirubin 0.2, Aspartate Amino Transf (AST/SGOT) 46H , Alanine Aminotransferase (ALT/SGPT) 35, Alkaline Phosphatase 253H, Total Protein 4.8L, Albumin 1.0L, Globulin 3.8, Albumin/Globulin Ratio 0.3L Height (Feet): 5 Height (Inches): 6.00 Weight (Pounds): 210 General Appearance: lethargic EENT: normal ENT inspection Neck: supple Cardiovascular: normal rate Respiratory/Chest: decreased breath sounds Abdomen: normal bowel sounds, non tender, soft Extremities: non-tender Gaurav Rosas MD Feb 07, 2019 10:22
--- NOTE | 2019-02-07 10:35 | Infectious Diseases Prog Note ---
Assessment/Plan Assessment/Plan 63 yo male who was sent to the ED on 01/21/19 for hypotension, fever and respiratory distress. Fever, SP Leukocytosis, fluctuating Gram negative Sepsis GBS and MRSA bacteremia Possible PNA--CXR low volume, pt contracted, difficult to determine infiltrates. thick secretions. 01/22 BCx: ESBL K pneumoniae, GBS, MRSA 01/22 CXR: bilateral opacities 01/22 UA positive. UCx VRE 01/23 CXR: Redemonstration of bibasilar patchy airspace opacities. Unchanged pulmonary vascular congestion. No pneumothorax. Stable small left pleural effusion. 01/24 Bcx: ngtd TTE negative but poor visualization 02/01 bcx: ngtd 02/02 Ucx: ngtd 02/02 sputum cx: MDR Pseudomonas 01/22 C diff positive 01/26 KUB: Nonspecific bowel gas pattern. Gastrostomy. No definite acute process 01/27 CT Pelvis: Severe proctocolitis with wall thicken in and inflammation as well as luminal distention due to fecal impaction. Rectal tube noted in place. Decubitus ulcer 01/27 CT Pelvis: No evidence of abscess or CT evidence for acute osteomyelitis /erosion of the coccyx/sacrum in the area of the clinically demonstrated decubitus ulceration/wound. The wound itself is not well seen on CT. Rash eosinophils on peripheral CBC VRE colonization DM COPD CVA Dementia Parkinsons Cardiac issues Vent dependent with trach G tube PLAN: - Colistin inhaled #3 - fidaxomicin #7/ - Vancomycin IV #9 02/06 C meropenem #15 - 02/01 DC vanc po to 500mg # - 01/20 SP vanc po 125mg #4 - 02/01 DC Flagyl IV #7 - 01/28 SP Daptomycin #5 - 01/24 DC vancomycin IV #2 - f/u cultures - repeat bcx, sputum cx, UA, ucx, urine legionella - Monitor CBC and Temps Thank you for this consult. [facility] will continue to follow the patient with you during this hospitalization. Subjective Allergies: Coded Allergies: OXYTETRACYCLINE (Unverified Allergy, Unknown, 09/05/13) PENICILLINS (Unverified Allergy, Unknown, 06/11/17) Tolerated one dose of Cefepime 06/07/17 Tolerated Cefdinir 06/10/17 Uncoded Allergies: PLASTIC TAPE (Allergy, Mild, ITCHINESS, 08/08/15) MEDICAL TAPE (Allergy, Unknown, 12/10/16) Subjective Afebrile. Hypothermic overnight. WBC better. FiO2 stable. Objective Vital Signs Last 24 Hour Vital Signs Date Time Temp Pulse Resp B/P (MAP) Pulse Ox O2 Delivery O2 Flow Rate FiO2 02/07/19 09:26 92 23 35 02/07/19 08:00 92 02/07/19 08:00 97.8 99 26 112/67 (82) 99 02/07/19 08:00 40 02/07/19 08:00 Mechanical Ventilator 02/07/19 07:02 98 24 35 02/07/19 05:41 101 24 35 02/07/19 04:00 Mechanical Ventilator 02/07/19 04:00 98.0 95 23 107/63 (78) 100 02/07/19 04:00 40 02/07/19 03:28 85 19 35 02/07/19 03:28 93 02/07/19 01:16 91 21 35 02/07/19 00:00 96 02/07/19 00:00 Mechanical Ventilator 02/07/19 00:00 97.4 95 23 125/67 (86) 95 02/06/19 22:59 86 19 100 Mechanical Ventilator 35 86 16 35 02/06/19 21:33 83 21 35 02/06/19 20:55 85 02/06/19 20:00 93.8 84 22 131/64 (86) 99 02/06/19 20:00 Mechanical Ventilator 02/06/19 20:00 40 02/06/19 19:33 85 28 35 02/06/19 17:24 80 20 35 02/06/19 16:10 83 02/06/19 16:00 96.0 85 25 107/63 (78) 100 02/06/19 16:00 Mechanical Ventilator 02/06/19 16:00 40 02/06/19 15:21 89 23 35 02/06/19 12:46 83 22 35 02/06/19 12:00 40 02/06/19 12:00 95 02/06/19 12:00 96.3 86 22 102/66 (78) 98 02/06/19 12:00 Mechanical Ventilator 02/06/19 10:51 80 22 35 Height (Feet): 5 Height (Inches): 6.00 Weight (Pounds): 210 Objective Gen: NAD CV: RRR Resp: coarse. ventilatory sounds Abd: soft. Distended. Hypoactive BS+. G tube Ext: contracted Neuro: not alert Microbiology Date/Time Source Procedure Growth Status 02/04/19 15:00 Straight Cath Urine Culture - Final NO GROWTH AFTER 48 HOURS Complete Laboratory Tests Test 02/07/19 03:39 White Blood Count 10.0 K/UL (4.8-10.8) Red Blood Count 3.17 M/UL (4.70-6.10) L Hemoglobin 9.5 G/DL (14.2-18.0) L Hematocrit 28.2 % (42.0-52.0) L Mean Corpuscular Volume 89 FL (80-99) Mean Corpuscular Hemoglobin 30.0 PG (27.0-31.0) Mean Corpuscular Hemoglobin Concent 33.7 G/DL (32.0-36.0) Red Cell Distribution Width 15.0 % (11.6-14.8) H Platelet Count 271 K/UL (150-450) Mean Platelet Volume 7.5 FL (6.5-10.1) Neutrophils (%) (Auto) 63.1 % (45.0-75.0) Lymphocytes (%) (Auto) 15.8 % (20.0-45.0) L Monocytes (%) (Auto) 4.1 % (1.0-10.0) Eosinophils (%) (Auto) 16.3 % (0.0-3.0) H Basophils (%) (Auto) 0.8 % (0.0-2.0) Sodium Level 142 MMOL/L (136-145) Potassium Level 3.8 MMOL/L (3.5-5.1) Chloride Level 112 MMOL/L (98-107) H Carbon Dioxide Level 22 MMOL/L (21-32) Anion Gap 9 mmol/L (5-15) Blood Urea Nitrogen 15 mg/dL (7-18) Creatinine 0.5 MG/DL (0.55-1.30) L Estimat Glomerular Filtration Rate > 60 mL/min (>60) Glucose Level 150 MG/DL (74-106) H Calcium Level 7.4 MG/DL (8.5-10.1) L Total Bilirubin 0.2 MG/DL (0.2-1.0) Aspartate Amino Transf (AST/SGOT) 46 U/L (15-37) H Alanine Aminotransferase (ALT/SGPT) 35 U/L (12-78) Alkaline Phosphatase 253 U/L (46-116) H Total Protein 4.8 G/DL (6.4-8.2) L Albumin 1.0 G/DL (3.4-5.0) L Globulin 3.8 g/dL Albumin/Globulin Ratio 0.3 (1.0-2.7) L Current Medications Medications (Trade) Dose Ordered Sig/Sima Route PRN Reason Start Time Stop Time Status Last Admin Dose Admin Acetaminophen (Tylenol) 650 mg Q4H PRN GT Mild Pain/Temp > 100.5 01/24/19 15:28 02/23/19 15:27 01/31/19 20:31 Acetaminophen/ Hydrocodone Bitart ([place] [address]) 1 tab Q4H PRN GT For Pain 01/31/19 22:30 02/07/19 22:29 Ascorbic Acid (Vitamin C) 250 mg DAILY GT 01/25/19 09:00 02/24/19 08:59 02/07/19 08:44 Chlorhexidine Gluconate (Paulina-Hex 2%) 1 applic DAILY@1999 TOPIC 02/05/19 20:00 03/07/19 19:59 02/06/19 20:16 Colistimethate Sodium (Colistin *inhalation use only*) 75 mg Q12HR@10,22 INH 02/05/19 22:00 02/12/19 21:59 02/07/19 10:20 Dextrose 1,000 ml @ 100 mls/hr Q10H IV 02/05/19 11:00 03/07/19 10:59 02/07/19 03:00 Dextrose (Dextrose 50%) 25 ml Q30M PRN IV Hypoglycemia 01/24/19 15:30 02/21/19 06:29 Dextrose (Dextrose 50%) 50 ml Q30M PRN IV Hypoglycemia 01/24/19 15:30 02/21/19 06:29 Diphenhydramine HCl (Benadryl Cream) 1 applic TIDPRN PRN TOPIC Itching 02/01/19 15:00 03/03/19 14:59 02/02/19 11:25 Famotidine (Pepcid I.v.) 20 mg Q12HR IVP 01/24/19 21:00 02/23/19 20:59 02/07/19 08:44 Fidaxomicin (Dificid) 200 mg EVERY 12 HOURS ORAL 02/01/19 12:00 02/10/19 21:01 02/07/19 08:44 Heparin Sodium/ Sodium Chloride (Heparin 1000 units/500ml Premix) 1,000 unit ONCE PRN IV picc line placement 02/05/19 14:15 02/07/19 14:14 Insulin Aspart (NovoLOG) Q6HR SUBQ 01/26/19 12:00 02/21/19 07:29 02/07/19 06:13 Lidocaine HCl (Xylocaine 1% 30ml) 30 ml ONCE PRN INJ picc line placement 02/05/19 14:15 02/07/19 14:14 Midodrine (Pro-Amatine) 2.5 mg THREE TIMES A DAY GT 01/24/19 18:00 02/21/19 12:59 02/07/19 08:43 Tamsulosin HCl (Flomax) 0.4 mg BID ORAL 01/24/19 18:00 02/21/19 09:59 02/07/19 08:44 Vancomycin HCl (Vanco rx to dose) 1 ea DAILY PRN MISC Per rx protocol 01/29/19 15:30 02/28/19 15:29 Vancomycin/Sodium Chloride 275 ml @ 183.333 mls/hr Q12HR@1100,2300 IVPB 02/06/19 11:00 02/11/19 10:59 02/06/19 22:45 Mkuesh Betancourt MD Feb 07, 2019 10:35
--- NOTE | 2019-02-07 10:41 | Nephrology Progress Note ---
Assessment/Plan Problem List: (1) Hypokalemia (2) HARDEEP (acute kidney injury) (3) Sepsis (4) Hyponatremia Assessment HARDEEP (acute kidney injury) HypoNatremia Septic shock Others: HCAP (healthcare-associated pneumonia) Chronic respiratory failure Ventilator dependence Vegetative state History of CVA (cerebrovascular accident) Feeding by G-tube HTN (hypertension) Cerebral vascular disease Plan K Phos mag as needed Hydrate monitor renal parameters Midodrine Antibiotics Avoid nephrotoxics Brooks could not be put in due to resistance start flomax per order Subjective ROS Limited/Unobtainable: Yes Objective Objective Last 24 Hour Vital Signs Date Time Temp Pulse Resp B/P (MAP) Pulse Ox O2 Delivery O2 Flow Rate FiO2 02/07/19 09:26 92 23 35 02/07/19 08:00 92 02/07/19 08:00 97.8 99 26 112/67 (82) 99 02/07/19 08:00 40 02/07/19 08:00 Mechanical Ventilator 02/07/19 07:02 98 24 35 02/07/19 05:41 101 24 35 02/07/19 04:00 Mechanical Ventilator 02/07/19 04:00 98.0 95 23 107/63 (78) 100 02/07/19 04:00 40 02/07/19 03:28 85 19 35 02/07/19 03:28 93 02/07/19 01:16 91 21 35 02/07/19 00:00 96 02/07/19 00:00 Mechanical Ventilator 02/07/19 00:00 97.4 95 23 125/67 (86) 95 02/06/19 22:59 86 19 100 Mechanical Ventilator 35 86 16 35 02/06/19 21:33 83 21 35 02/06/19 20:55 85 02/06/19 20:00 93.8 84 22 131/64 (86) 99 02/06/19 20:00 Mechanical Ventilator 02/06/19 20:00 40 02/06/19 19:33 85 28 35 02/06/19 17:24 80 20 35 02/06/19 16:10 83 02/06/19 16:00 96.0 85 25 107/63 (78) 100 02/06/19 16:00 Mechanical Ventilator 02/06/19 16:00 40 02/06/19 15:21 89 23 35 02/06/19 12:46 83 22 35 02/06/19 12:00 40 02/06/19 12:00 95 02/06/19 12:00 96.3 86 22 102/66 (78) 98 02/06/19 12:00 Mechanical Ventilator 02/06/19 10:51 80 22 35 Intake and Output 02/06/19 02/07/19 19:00 07:00 Intake Total 2036.660 ml 1305 ml Output Total 300 ml 350 ml Balance 1736.660 ml 955 ml Free Water 150 ml IV Total 1226.660 ml 700 ml Tube Feeding 660 ml 605 ml Output Urine Total 250 ml 350 ml Stool Total 50 ml Laboratory Tests 02/07/19 03:39: White Blood Count 10.0, Red Blood Count 3.17L, Hemoglobin 9.5L, Hematocrit 28.2L , Mean Corpuscular Volume 89, Mean Corpuscular Hemoglobin 30.0, Mean Corpuscular Hemoglobin Concent 33.7, Red Cell Distribution Width 15.0H, Platelet Count 271, Mean Platelet Volume 7.5, Neutrophils (%) (Auto) 63.1, Lymphocytes (%) (Auto) 15.8L, Monocytes (%) (Auto) 4.1, Eosinophils (%) (Auto) 16.3H, Basophils (%) (Auto) 0.8, Sodium Level 142, Potassium Level 3.8, Chloride Level 112H, Carbon Dioxide Level 22, Anion Gap 9, Blood Urea Nitrogen 15, Creatinine 0.5L, Estimat Glomerular Filtration Rate > 60, Glucose Level 150H , Calcium Level 7.4L, Total Bilirubin 0.2, Aspartate Amino Transf (AST/SGOT) 46H , Alanine Aminotransferase (ALT/SGPT) 35, Alkaline Phosphatase 253H, Total Protein 4.8L, Albumin 1.0L, Globulin 3.8, Albumin/Globulin Ratio 0.3L Height (Feet): 5 Height (Inches): 6.00 Weight (Pounds): 210 General Appearance: no apparent distress Objective no change Sergey Rivera MD Feb 07, 2019 10:41
[2019-02-07] MEDS: Vancomycin 1.25gm/NS Premix IVPB SCH (11:44)
[2019-02-07 12:00] VITALS: BP 102/53
--- NOTE | 2019-02-07 12:33 | NUR ---
NURSE NOTES: radiology unable to insert PICC line because arm contracted.
--- NOTE | 2019-02-07 14:06 | NUR ---
*-* INSURANCE *-* UPDATED CLINICALS AND REVIEWS HAVE BEEN FAXED TO: FADUMO SANCHEZM: TOM REF# [id number] P; [phone] F: [phone]
[2019-02-07 16:00] VITALS: BP 103/63
--- NOTE | 2019-02-07 19:07 | NUR ---
NURSE NOTES: PT DISCHARGE TO [facility] BY AMBULANCE ORDERED, CONDITION STABLE, FAMILY NOTIFIED, REPORT GIVEN TO MARINA AUSTIN.
--- NOTE | 2019-02-08 09:15 | Discharge Summary ---
Discharge Summary Discharge Summary _ DATE OF ADMISSION: 01/22/2019 DATE OF DISCHARGE: 02/07/2019 DISCHARGED BY: Dr Arevalo REASON FOR ADMISSION: 64 years old male with past medical history of chronic respiratory failure, ventilator dependency, tracheostomy status, dysphagia, feeding by G-tube, contracted, history of intracerebral hemorrhage, hypertension, peripheral vascular disease, COPD, history of GI bleeding, presented to emergency department with hypotension and respiratory distress . Upon evaluation in emergency department patient was tachycardic, tachypneic, hypotensive, and febrile . Central line was placed in anticipation for pressors via right internal jugular. Chest x-ray confirmed placement. No pneumothorax. Chest x-ray also revealed bibasilar infiltrates. Laboratory work-up revealed significant leukocytosis WBC 25.2, hemoglobin 12.6, hematocrit 26.2. Sodium 127, potassium 5.2 . BUN 79 ,creatinine 1.2. Lactic acid 3.3, repeated 2.7. Stable LFT. Troponin negative. Albumin 1.6. Urinalysis revealed pyuria and moderate bacteria. ABG on ventilator settings 500 -16-40% with PEEP 5 was stable. Patient subsequently admitted to ICU for further management. CONSULTANTS: pulmonary Dr. Rudd ID specialist Dr. Betancourt GI specialist Dr. Rosas check airman Dr. Rivera [facility]: Patient initially admitted to ICU. Patient was on pressor , titrated to keep mean arterial blood pressure above 65. Hemodynamic status was closely monitored. Echocardiogram demonstrated grossly normal left ventricular ejection fraction. No evidence of wall motion abnormality to the extent visualized. Ventilator support and pulmonary toilet provided. Patient started on empiric antibiotics. Blood culture revealed Klebsiella pneumonia ESBL , Strep group B and MRSA. Urine culture revealed VRE. Stool for C. difficile was positive for toxin A and B. Repeated blood culture on and 02/01 were negative. Repeated urine culture on 02/02 was negative . Sputum culture revealed Pseudomonas aeruginosa. Antibiotic regimen was optimized as per ID specialist recommendation. Patient was followed with chest x-ray. Leukocytosis and fevers resolved. ID specialist recommended continue antibiotic treatment at the facility to complete the course. CT of the pelvis revealed no evidence of abscess or CT evidence for acute osteomyelitis/erosion of the coccyx/sacrum in the area of the clinically demonstrated decubitus ulceration/ wound. The wound itself is not well seen on CT. Renal parameters and electrolytes were closely monitored. Electrolytes corrected as needed. Patient was able to be weaned from pressors and started on midodrine. Blood pressure was closely monitored.. Nephrotoxic's were avoided. Hyponatremia resolved, prior to discharge sodium 142. Hyperkalemia resolved, prior to discharge potassium 3.8. Acute kidney injury resolved, prior to discharge BUN from 79 down to 15 and creatinine from 1.4 down to 0.5. GI specialist followed. Strict aspiration precaution maintained. G tube feeding with tube formula and goal rate continued along with protein supplement as recommended by a registered nurse hh case manager. Stool for occult blood was positive. No plans for GI procedure , given sepsis. PPI was on hold hold given positive stool for C. difficile. Patient was on H2 raad. Treatment for C. difficile provided as per ID specialist. Lactobacillus added. Hemoglobin and hematocrit were closely monitored with goal to keep hemoglobin above 7. Hemoglobin and hematocrit remained at the baseline. Prior to discharge hemoglobin 9.5, hematocrit 28.2. Surgeon followed. Patient presented with multiply pressure injuries . Wound care provided as per surgeon recommendation. Continue wound care at the facility. Urologist seen and evaluated patient. Urologist recommended to keep Brooks and consider to switch Brooks to larger size ; irrigate as needed. Patient was continued on Flomax twice a day. Patient clinically stabilized and was ready for transfer back to [facility] for continuation of care. FINAL DIAGNOSES: Septic shock Sepsis with MRSA and Klebsiella pneumonia ESBL Healthcare associated pneumonia / Pseudomonas pneumonia VRE UTI C. difficile positive Chronic respiratory failure with ventilator dependency, tracheostomy status Acute metabolic encephalopathy Acute kidney injury -resolved Hyponatremia- resolved Decubitus ulcer, present on admission Vegetative state History of CVA Dysphagia, feeding by G-tube Cerebrovascular disease Neurogenic bladder History of nephrolithiasis Ureteral stricture DISCHARGE MEDICATIONS: List of medication was sent to accepting facility DISCHARGE INSTRUCTIONS: Patient was discharged to the [facility] facility. Follow up with medical doctor at the facility. I have been assigned to dictate discharge summary for this account. I was not involved in the patient's management. Taylor Bernard NP Feb 08, 2019 09:15
--- NOTE | 2019-02-08 14:52 | NUR ---
*-* INSURANCE *-* DISCHARGE SUMMARY HAS BEEN FAXED TO: FADUMO SANCHEZM: TOM REF# [id number] P; [phone] F: [phone]
== END 2019-02-07 19:00 | DRG 720 ==
LOC: EDBD 01:43 → EMR 01:56 → EDBEDREQ 02:27 → ICU 02:32 → 2W 01-24 14:55
PROC: 5A1955Z Respiratory Ventilation, Greater than 96 Consecutive Hours (ICD-10-PCS; 2019-01-22)
PROC: 05HM33Z Insertion of Infusion Device into Right Internal Jugular Vein, Percutaneous Approach (ICD-10-PCS; 2019-01-22)
PROC: 0T7D7ZZ Dilation of Urethra, Via Natural or Artificial Opening (ICD-10-PCS; principal; 2019-01-23)
DX: A41.02 Sepsis due to Methicillin resistant Staphylococcus aureus (principal); R65.21 Severe sepsis with septic shock; N17.9 Acute kidney failure, unspecified; L89.154 Pressure ulcer of sacral region, stage 4; A41.59 Other Gram-negative sepsis; J15.1 Pneumonia due to Pseudomonas; Y95 Nosocomial condition; J96.20 Acute and chronic respiratory failure, unspecified whether with hypoxia or hypercapnia; G93.41 Metabolic encephalopathy; E87.1 Hypo-osmolality and hyponatremia; E87.6 Hypokalemia; R13.10 Dysphagia, unspecified; Z93.0 Tracheostomy status; Z93.1 Gastrostomy status; R40.3 Persistent vegetative state; N31.9 Neuromuscular dysfunction of bladder, unspecified; N39.498 Other specified urinary incontinence; N35.919 Unspecified urethral stricture, male, unspecified site; Z86.73 Personal history of transient ischemic attack (TIA), and cerebral infarction without residual deficits; G20 Parkinson's disease; F02.80 Dementia in other diseases classified elsewhere, unspecified severity, without behavioral disturbance, psychotic disturbance, mood disturbance, and anxiety; Z99.11 Dependence on respirator [ventilator] status; L89.304 Pressure ulcer of unspecified buttock, stage 4; L89.023 Pressure ulcer of left elbow, stage 3; A04.72 Enterocolitis due to Clostridium difficile, not specified as recurrent; R31.9 Hematuria, unspecified; E11.9 Type 2 diabetes mellitus without complications; K92.2 Gastrointestinal hemorrhage, unspecified; K56.41 Fecal impaction; K62.89 Other specified diseases of anus and rectum; I10 Essential (primary) hypertension
CPT/HCPCS: 36415; 36600; 71045; 72192; 74018; 76770; 80048; 80053; 80061; 80076; 80202; 81001; 81003; 82140; 82164; 82270; 82533; 82550; 82803; 82962; 82977; 83036; 83605; 83735; 83880; 83930; 83935; 84100; 84300; 84443; 84484; 84550; 85007; 85025; 85610; 85651; 85730; 86140; 87040; 87070; 87081; 87086; 87181; 87205; 87324; 93306; 94002; 94003; 94640; 94664; 96361; 96365; 96367; 99291; J1580; J1815; J7030

== ENCOUNTER 2019-02-19 13:53 | Inpatient (IN) | payer OTHER ==
[2019-02-19] VITALS (33 sets, daily range): BP systolic 58–118; BP diastolic 34–78
[~2019-02-19] VITALS: Ht 167.6 cm; Wt 95.7 kg
[~2019-02-19 13:53] MED LIST changes: +NORCO 10/3251 EA GT; -NORCO 10/3251 EA ORAL
[2019-02-19] MEDS ORDERED: MIDODRINE HCL2.5 MG GT (14:04)
[2019-02-19] MEDS ORDERED: FERROUS SULFAT325 MG ORAL (14:04)
[2019-02-19] MEDS ORDERED: FLOMAX0.4 MG GT (14:04)
[2019-02-19] MEDS ORDERED: ZINC SULFATE220 M1 GT (14:04)
[2019-02-19] MEDS ORDERED: ASCORBIC ACID500 MG GT (14:04)
[2019-02-19] MEDS ORDERED: Sodium Chloride 1,900 ML IVLG ONE (14:15)
[2019-02-19] MEDS ORDERED: Vancomycin 1 GM in NS 275 ML IV ONE (15:00)
[2019-02-19 15:44] LABS: BASOPHILS % (AUTO) 0.9 % (0.0-2.0); EOSINOPHILS % (AUTO) 11.1 % (0.0-3.0); HEMATOCRIT 25.9 % (42.0-52.0); LYMPHOCYTES % (AUTO) 4.8 % (20.0-45.0); MEAN CORPUSCULAR VOLUME 86 FL (80-99); MONOCYTES % (AUTO) 1.8 % (1.0-10.0); NEUTROPHILS % (AUTO) 81.3 % (45.0-75.0); PLATELET COUNT 111 K/UL (150-450); RED BLOOD COUNT 3.02 M/UL (4.70-6.10); RED CELL DISTRIBUTION WIDTH 14.2 % (11.6-14.8); WHITE BLOOD COUNT 17.8 K/UL (4.8-10.8)
--- NOTE | 2019-02-19 15:44 | Diagnostic Imaging Report ---
EXAM: XR Chest, 1 View CLINICAL HISTORY: SOB TECHNIQUE: Frontal view of the chest. COMPARISON: Chest radiograph on 02/02/2019 FINDINGS: Hardware: Tracheostomy tube terminates in the region of the mid thoracic trachea. Right internal jugular central venous catheter terminates in the region of the SVC. Lungs/pleura: Increased opacification of the left hemithorax which likely represents combination of pleural effusion and atelectasis versus pneumonia. Increased right pleural effusion with atelectasis versus pneumonia. Pulmonary edema. Heart/mediastinum: Cardiomediastinal silhouette is obscured by the left hemithorax opacification. Soft tissues: Unremarkable. Bones: No acute fracture. Degenerative changes of the acromioclavicular joints. IMPRESSION: 1. Tracheostomy tube terminates in the region of the mid thoracic trachea. Right internal jugular central venous catheter terminates in the region of the SVC. 2. Increased opacification of the left hemithorax which likely represents combination of pleural effusion and atelectasis versus pneumonia. Increased right pleural effusion with atelectasis versus pneumonia. Pulmonary edema.
[2019-02-19 15:58] LABS: ALANINE AMINOTRANSFERASE 52 U/L (12-78); ALBUMIN 1.2 G/DL (3.4-5.0); ALBUMIN/GLOBULIN RATIO 0.3 (1.0-2.7); ALKALINE PHOSPHATASE 230 U/L (46-116); ANION GAP 1 mmol/L (5-15); ASPARTATE AMINO TRANSFERASE 77 U/L (15-37); BILIRUBIN,TOTAL 0.2 MG/DL (0.2-1.0); BLOOD UREA NITROGEN 68 mg/dL (7-18); CALCIUM 8.4 MG/DL (8.5-10.1); CARBON DIOXIDE 30 MMOL/L (21-32); CHLORIDE 97 MMOL/L (98-107); CKMB 13.7 NG/ML (0.0-3.6); CREATINE KINASE 123 U/L (26-308); CREATININE 0.9 MG/DL (0.55-1.30); SODIUM 128 MMOL/L (136-145)
[2019-02-19 16:00] LABS: POTASSIUM 6.3 MMOL/L (3.5-5.1)
[2019-02-19] MEDS ORDERED: Calcium Gluconate 1gm/10ml vial IVP ONE (16:15)
[2019-02-19] MEDS ORDERED: Insulin Human Regular 100units/ml 3ml IV ONE (16:15)
--- NOTE | 2019-02-19 16:55 | Emergency Room Report ---
History of Present Illness General Chief Complaint: Dyspnea/Respdistress Source: EMS Present Illness HPI 64-year-old male presents ED for evaluation. Brought in by EMS from senior care facility. For respiratory distress x 1 day. Is on ventilator with trach. Was being bagged by EMS. On arrival patient showing no signs of distress. Unable to provide any additional history at this time. Nonverbal at baseline. No reported fevers or chills. No reported cough. No other aggravating relieving factors. No other associated symptoms Allergies: Coded Allergies: OXYTETRACYCLINE (Unverified Allergy, Unknown, 09/05/13) PENICILLINS (Unverified Allergy, Unknown, 06/11/17) Tolerated one dose of Cefepime 06/07/17 Tolerated Cefdinir 06/10/17 Uncoded Allergies: PLASTIC TAPE (Allergy, Mild, ITCHINESS, 08/08/15) MEDICAL TAPE (Allergy, Unknown, 12/10/16) Patient History Past Medical History: DM, HTN, COPD, CVA/TIA, dementia Past Surgical History: none, other - trach\ Pertinent Family History: none Social History: Denies: smoking, alcohol use, drug use Immunizations: UTD Reviewed Nursing Documentation: PMH: Agreed; PSxH: Agreed Nursing Documentation-PMH Past Medical History: No History, Except For Hx Cardiac Problems: Yes Hx Hypertension: Yes Hx COPD: Yes Hx Diabetes: Yes Hx Cancer: No Hx Gastrointestinal Problems: Yes - ABD hernia Hx Cerebrovascular Accident: Yes Hx Transient Ischemic Attacks: Yes Hx Dementia: Yes Hx Parkinson's Disease: Yes Hx Seizures: No - Pressure ulcers right and left buttocks (2 on each side) Hx Memory Loss: Yes Hx Concentration Difficulty: Yes Hx Speech Problem: Yes Hx Dysphasia: Yes Review of Systems All Other Systems: limited Physical Exam Vital Signs Date Time Temp Pulse Resp B/P (MAP) Pulse Ox O2 Delivery O2 Flow Rate FiO2 02/19/19 13:42 65 24 110/85 (93) 92 Mechanical Ventilator 02/19/19 13:50 50 Sp02 EP Interpretation: reviewed, normal General Appearance: no apparent distress, other - nonverbal Head: normocephalic Eyes: bilateral eye normal inspection, bilateral eye PERRL ENT: normal ENT inspection Neck: tracheotomy Respiratory: crackles Cardiovascular #1: regular rate, rhythm, no edema Gastrointestinal: normal inspection Rectal: deferred Genitourinary: no CVA tenderness Musculoskeletal: other - contracted extremities Neurologic: aphasia, other - nonverbal Psychiatric: other - nonverbal Skin: other - see nursing skin notes Lymphatic: normal inspection Procedures Critical Care Time Critical Care Time i. I feel this is a highly complex case requiring extensive working including EKG/Rhythm strip, Xray/CT/US, Blood/urine lab work, repeat exams while in ED, and administration of strong opiates/narcotics for pain control, admission to hospital or close patient follow up. Total time: 60 min bedside evaluation and treatment excludes procedures (EKG). Reason for critical care: hypotensive, septic shock, hyperkalemia, repsiratory distress Possible complications: hypotension, hypertension, MT, shock, arrhythmias, metabolic acidosis, end organ damage, respiratory failure. Interventions: central line. labs, IVFs. EKG. CXR. calcium/insulin/D50. broad spectrum abx. levophed. discussion with block making machine operator Course: Patient presenting with respiratory distress. Trach/vent. Hypotensive. Has no peripheral access. Right IJ line placed via ultrasound. Confirmed on chest x-ray. Also shows increased bilateral infiltrates/effusion. Elevated BUN/creatinine, lactic elevated. WBC elevated. Potassium 6.3. Given 30 cc/kg fluid bolus. Given broad-spectrum antibiotics. Given calcium/ insulin/D50. Started on Levophed. BP slowly improving. Consultations: nursing staff, EMS, family Performed by: Dr Robles Tolerated well condition = critical j. because of unstable vital signs this patient had a condition that could potentially threaten life or limb. I feel this is a critical patient who required my full attention while patient was considered critical. Total Critical Care Time excluding procedures was greater than 60 minutes Central Line Central Line : Consent: Emergent Central Line Lumen: triple Maximal Sterile Barrier Tech: yes cap, yes mask, yes sterile gown, yes sterile gloves, yes large sterile sheet, yes hand hygiene, yes chlorhexidine prep Central Line Postion: internal jugular (R) Anesthesia: local Complications: none Central Line Post Position: sutured, good blood return, position confirmed w / CXR Attempts: One Patient Tolerated: Well Complications: None Medical Decision Making Diagnostic Impression: Primary Impression: Chronic respiratory failure Qualified Codes: J96.10 - Chronic respiratory failure, unspecified whether with hypoxia or hypercapnia Additional Impressions: Pneumonia Qualified Codes: J18.9 - Pneumonia, unspecified organism Pleural effusion Renal failure Qualified Codes: N19 - Unspecified kidney failure Septic shock Hyperkalemia Decubitus skin ulcer Qualified Codes: L89.90 - Pressure ulcer of unspecified site, unspecified stage ER Course Hospital Course 64 yo M presents with SOB. on ventilator. hypotensive. Differential diagnoses include: Pneumonia, UTI, sepsis, dehydration, MT/ unstable angina Clinical course Patient placed on stretcher. On director cardiac with hypotension. BP dropping. Has no peripheral access. Right IJ line placed under ultrasound guidance. Confirmed on chest x-ray. After initial history and physical, I ordered labs, IV fluids, EKG, chest x-ray , blood cultures, UA. Labs - BUN/Cr elevated, noted leukocytosis, K 6.3, lactic elevated EKG - NSR, no acute ischemic changes interpreted by me CXR - bilateral infiltrates/effusion. R IJ central line in SVC broad spectrum Abx given. given calcium/insulin/d50. given 30cc/kg fluid bolus. started on Levophed BP slowly improving. prognosis critical Case discussed with Dr Peña/Blaire (covering for Dr Arevalo) and they agreed to admit patient to their service for further care and support I feel this is a highly complex case requiring extensive working including EKG/ Rhythm strip, Xray/CT/US, Blood/urine lab work, repeat exams while in ED, and administration of strong opiates/narcotics for pain control, admission to hospital or close patient follow up. Diagnosis -chronic respiratory failure, pneumonia, pleural effusion, renal failure, septic shock, hyperkalemia, decubitus skin ulcer Patient admitted to ICU in critical condition Labs Test 02/19/19 14:50 02/19/19 16:13 White Blood Count 17.8 K/UL (4.8-10.8) Red Blood Count 3.02 M/UL (4.70-6.10) Hemoglobin 9.0 G/DL (14.2-18.0) Hematocrit 25.9 % (42.0-52.0) Mean Corpuscular Volume 86 FL (80-99) Mean Corpuscular Hemoglobin 29.8 PG (27.0-31.0) Mean Corpuscular Hemoglobin Concent 34.8 G/DL (32.0-36.0) Red Cell Distribution Width 14.2 % (11.6-14.8) Platelet Count 111 K/UL (150-450) Mean Platelet Volume 10.2 FL (6.5-10.1) Neutrophils (%) (Auto) 81.3 % (45.0-75.0) Lymphocytes (%) (Auto) 4.8 % (20.0-45.0) Monocytes (%) (Auto) 1.8 % (1.0-10.0) Eosinophils (%) (Auto) 11.1 % (0.0-3.0) Basophils (%) (Auto) 0.9 % (0.0-2.0) Sodium Level 128 MMOL/L (136-145) Potassium Level 6.3 MMOL/L (3.5-5.1) Chloride Level 97 MMOL/L (98-107) Carbon Dioxide Level 30 MMOL/L (21-32) Anion Gap 1 mmol/L (5-15) Blood Urea Nitrogen 68 mg/dL (7-18) Creatinine 0.9 MG/DL (0.55-1.30) Estimat Glomerular Filtration Rate > 60 mL/min (>60) Glucose Level 166 MG/DL (74-106) Lactic Acid Level 3.50 mmol/L (0.4-2.0) 2.50 mmol/L (0.66-2.22) Calcium Level 8.4 MG/DL (8.5-10.1) Total Bilirubin 0.2 MG/DL (0.2-1.0) Aspartate Amino Transf (AST/SGOT) 77 U/L (15-37) Alanine Aminotransferase (ALT/SGPT) 52 U/L (12-78) Alkaline Phosphatase 230 U/L (46-116) Total Creatine Kinase 123 U/L (26-308) Creatine Kinase MB 13.7 NG/ML (0.0-3.6) Creatine Kinase MB Relative Index 11.1 Troponin I 0.000 ng/mL (0.000-0.056) Pro-B-Type Natriuretic Peptide 1679 pg/mL (0-125) Total Protein 5.5 G/DL (6.4-8.2) Albumin 1.2 G/DL (3.4-5.0) Globulin 4.3 g/dL Albumin/Globulin Ratio 0.3 (1.0-2.7) EKG Diagnostic Results Rate: normal Rhythm: NSR ST Segments: no acute changes ASA given to the pt in ED: No Rhythm Strip Diag. Results EP Interpretation: yes Rhythm: NSR, no PVC's, no ectopy Chest X-Ray Diagnostic Results Chest X-Ray Diagnostic Results : Chest X-Ray Ordered: Yes # of Views/Limited/Complete: 1 View Indication: Shortness of Breath EP Interpretation: Yes Interpretation: no pneumothorax, other - bilatearl infiltrates/effusion. R IJ in SVC Impression: Other - PNA/pleural effusion Electronically Signed by: Electronically signed by Mati Robles MD Last Vital Signs Date Time Temp Pulse Resp B/P (MAP) Pulse Ox O2 Delivery O2 Flow Rate FiO2 02/19/19 16:00 59 15 95/78 95 Mechanical Ventilator 50 Status: improved Disposition: ADMITTED INPATIENT Condition: Critical Referrals: Boris Arevalo MD (PCP) Mati Robles MD Feb 19, 2019 16:55
[2019-02-19 17:35] LABS: APPEARANCE,URINE CLOUDY; BILIRUBIN, URINE NEGATIVE (NEGATIVE); GLUCOSE, URINE (UA) NEGATIVE (NEGATIVE); KETONES,URINE NEGATIVE (NEGATIVE); LEUKOCYTE ESTERASE ,URINE 3+ (NEGATIVE); NITRITE,URINE NEGATIVE (NEGATIVE); PH,URINE 5 (4.5-8.0); PROTEIN,URINE 3+ (NEGATIVE); UROBILINOGEN,URINE NORMAL MG/DL (0.0-1.0)
[2019-02-19 17:36] LABS: COLOR,URINE YELLOW
[2019-02-19] MEDS ORDERED: Morphine Sulfate 4mg/ml Inj (IV USE ONLY) IVP PRN (19:45)
[2019-02-19] MEDS ORDERED: LORazepam Inj 2mg/ml 1ml IV PRN (19:45)
[2019-02-19] MEDS ORDERED: Albuterol/Ipratropium 3ml neb HHN PRN (19:45)
[2019-02-19] MEDS ORDERED: Miralax 17gm pkt ORAL PRN (19:45)
[2019-02-19] MEDS ORDERED: Ertapenem 1 GM in NS 55 ML IV SCH (21:00)
[2019-02-19] MEDS ORDERED: Vancomycin 1.5gm/NS Premix IVPB ONE (21:30)
[2019-02-19] MEDS: NovoLOG Insulin Flexpen SUBQ SCH (21:39)
[2019-02-19] MEDS: Heparin 5000 units/ml inj SUBQ SCH (21:40)
[2019-02-19] MEDS ORDERED: Vancomycin 1 GM in D5W 275 ML IV SCH (23:45)
[2019-02-20] VITALS (82 sets, daily range): BP systolic 59–107; BP diastolic 27–94
[2019-02-20] MEDS ORDERED: Amikacin 1,000 MG in NS 110 ML IV SCH ×2
[2019-02-20] MEDS: Norepinephrine Bitartrate 8 MG in D5W 500ml 492 ML IV SCH ×5 (02:05→21:47)
[2019-02-20 06:24] LABS: HEMATOCRIT 28.5 % (42.0-52.0); HEMOGLOBIN 9.1 G/DL (14.2-18.0); MEAN CORPUSCULAR VOLUME 91 FL (80-99); PLATELET COUNT 115 K/UL (150-450); RED BLOOD COUNT 3.14 M/UL (4.70-6.10); RED CELL DISTRIBUTION WIDTH 15.7 % (11.6-14.8)
[2019-02-20] MEDS: NovoLOG Insulin Flexpen SUBQ SCH ×4 (06:30→20:56)
[2019-02-20 06:37] LABS: WHITE BLOOD COUNT 23.6 K/UL (4.8-10.8)
[2019-02-20 06:39] LABS: ALANINE AMINOTRANSFERASE 52 U/L (12-78); ALBUMIN 1.3 G/DL (3.4-5.0); ALBUMIN/GLOBULIN RATIO 0.3 (1.0-2.7); ALKALINE PHOSPHATASE 246 U/L (46-116); ANION GAP 7 mmol/L (5-15); ASPARTATE AMINO TRANSFERASE 78 U/L (15-37); BILIRUBIN,DIRECT < 0.1 MG/DL (0.0-0.3); BILIRUBIN,TOTAL 0.2 MG/DL (0.2-1.0); BLOOD UREA NITROGEN 62 mg/dL (7-18); CALCIUM 8.5 MG/DL (8.5-10.1); CARBON DIOXIDE 23 MMOL/L (21-32); CHLORIDE 99 MMOL/L (98-107); CREATININE 0.8 MG/DL (0.55-1.30); SODIUM 129 MMOL/L (136-145)
[2019-02-20 06:50] LABS: POTASSIUM 6.1 MMOL/L (3.5-5.1)
[2019-02-20] MEDS: Phenylephrine 50 MG in D5W 245 ML IV SCH ×4 (08:02→22:45)
[2019-02-20 08:42] LABS: PHOSPHORUS 3.7 MG/DL (2.5-4.9)
--- NOTE | 2019-02-20 08:55 | Consultation ---
Consult Note Consult Note asked to evaluate the patient at the request of PMD for Hyperkalemia Patient seen in ICU - on 2 pressors with low BP Trach-Vent known to me from his previous admission ER: 64-year-old male presents ED for evaluation. Br[facility] by EMS from [facility]. For respiratory distress x 1 day. Is on ventilator with trach. Was being bagged by EMS. On arrival patient showing no signs of distress. Unable to provide any additional history at this time. Nonverbal at baseline. No reported fevers or chills. No reported cough. No other aggravating relieving factors. No other associated symptoms Allergies: OXYTETRACYCLINE (Unverified Allergy, Unknown, 09/05/13) PENICILLINS (Unverified Allergy, Unknown, 06/11/17) Tolerated one dose of Cefepime 06/07/17 Tolerated Cefdinir 06/10/17 Uncoded Allergies: PLASTIC TAPE (Allergy, Mild, ITCHINESS, 08/08/15) MEDICAL TAPE (Allergy, Unknown, 12/10/16) Past Medical History: DM, HTN, COPD, CVA/TIA, dementia Past Surgical History: none, other - trach\ Past Medical History: No History, Except For Hx Cardiac Problems: Yes Hx Hypertension: Yes Hx COPD: Yes Hx Diabetes: Yes Hx Gastrointestinal Problems: Yes - ABD hernia Hx Cerebrovascular Accident: Yes Hx Transient Ischemic Attacks: Yes Hx Dementia: Yes Hx Parkinson's Disease: Yes Hx Seizures: No - Pressure ulcers right and left buttocks (2 on each side) Hx Memory Loss: Yes Hx Concentration Difficulty: Yes Hx Speech Problem: Yes Hx Dysphasia: Yes . Assessment/Plan (1) Hyperkalemia (2) HARDEEP (acute kidney injury) (3) Sepsis / shock (4) Hyponatremia Others: HCAP (healthcare-associated pneumonia) Chronic respiratory failure Ventilator dependence Vegetative state History of CVA (cerebrovascular accident) Feeding by G-tube HTN (hypertension) Cerebral vascular disease Plan; Antibiotics Hydrocortisone trial monitor lytes per orders poor prognosis Sergey Rivera MD Feb 20, 2019 08:55
[2019-02-20] MEDS ORDERED: Sodium Polystyrene Sulfonate 15gm Powder GT SCH (09:00)
[2019-02-20] MEDS ORDERED: Pantoprazole Inj IVP SCH (09:00)
[2019-02-20] MEDS: Heparin 5000 units/ml inj SUBQ SCH ×2 (09:00→20:55)
[2019-02-20] MEDS ORDERED: Amikacin Rx to dose MISC PRN (09:15)
[2019-02-20] MEDS: Pantoprazole Inj IVP SCH ×2 (09:49→20:54)
[2019-02-20] MEDS: Hydrocortisone 100mg Inj IV SCH ×3 (09:58→21:49)
--- NOTE | 2019-02-20 10:38 | Diagnostic Imaging Report ---
EXAM: XR Chest, 1 View CLINICAL HISTORY: DYSPNEA TECHNIQUE: Frontal view of the chest. COMPARISON: Chest x-ray, 02/19/19 1299 FINDINGS: Lungs: Slightly improved right lung opacities. Improved aeration of the left lung with slightly improvement of the opacities. Pleural space: Slightly smaller right pleural effusion. Continued moderate to large loculated left pleural effusion may be slightly improved. No pneumothorax. Heart: Unremarkable. No cardiomegaly. Mediastinum: Unremarkable. Bones/joints: Unremarkable. Tubes, lines and devices: Stable right IJ catheter. Stable tracheostomy tube. IMPRESSION: 1. Slightly improved right lung opacities. Improved aeration of the left lung with slightly improvement of the opacities. 2. Slightly smaller right pleural effusion. Continued moderate to large loculated left pleural effusion may be slightly improved.
[2019-02-20] MEDS: Vancomycin 1.25gm/NS Premix IVPB SCH ×2 (10:45→21:47)
--- NOTE | 2019-02-20 10:54 | Consultation ---
History of Present Illness General Date patient seen: Feb 20, 2019 Chief Complaint: Dyspnea/Respdistress Reason for Consultation: Sepsis Present Illness HPI Mr. Mike is a 64 yo amle with PMHx of Dementia DM, CVA and COPD who was sent to the ED from his SNF on 02/19/19 for SOB. The patient is not verbal at base line so history was obtianed from the notes. He had no reported cough or fever. Unclear how long he has been SOB. In the ED he was hypothermic with WBCs of 18. His CXR shows B/L atelectasis vs PNA. He was put on broadspectrum abx and pressors. His urine is growing a GNR. ID was consulted for sepsis PMHx/PSHx Dementia DM HTN COPD CVA Dementia SocHx No E/T/D FamHx Unable to obtain as patient not verbal Allergies: Coded Allergies: OXYTETRACYCLINE (Unverified Allergy, Unknown, 09/05/13) PENICILLINS (Unverified Allergy, Unknown, 06/11/17) Tolerated one dose of Cefepime 06/07/17 Tolerated Cefdinir 06/10/17 Uncoded Allergies: PLASTIC TAPE (Allergy, Mild, ITCHINESS, 08/08/15) MEDICAL TAPE (Allergy, Unknown, 12/10/16) Medication History Scheduled Albuterol Sulfate* (Albuterol Sulfate Hhn*), 3 ML INH Q6H, (Reported) Ascorbic Acid* (Ascorbic Acid*), 500 MG ORAL DAILY, (Reported) Atorvastatin Calcium* (Atorvastatin Calcium*), 10 MG GT BEDTIME, (Reported) Cholecalciferol (Vitamin D3)* (Vitamin D*), 5,000 UNIT GT DAILY, (Reported) Docusate Sodium* (Docusate Sodium*), 100 MG GT DAILY, (Reported) Ferrous Sulfate* (Ferrous Sulfate*), 325 MG ORAL DAILY, (Reported) Heparin Sod (Porcine) (Heparin Sodium*), 5,000 UNITS SUBQ EVERY 12 HOURS, ( Reported) Midodrine* (Proamatine*), 2.5 MG ORAL THREE TIMES A DAY, (Reported) Polyethylene Glycol 3350* (Miralax*), 17 GM GT DAILY, (Reported) Tamsulosin HCl (Flomax), 0.4 MG ORAL DAILY, (Reported) Zinc Sulfate (Zinc Sulfate*), 220 MG ORAL DAILY, (Reported) Scheduled PRN Acetaminophen (Acetaminophen), 650 MG ORAL Q4HR PRN for Prn Headache/Temp > 101, (Reported) Hydrocodone/Acetaminophen (Hydrocodon-Acetaminophn 10-325), 1 TAB ORAL EVERY 12 HOURS PRN for For Pain, (Reported) Ondansetron (Zofran), 4 MG GT Q6H PRN for Nausea & Vomiting, (Reported) Miscellaneous Medications Insulin Lispro (Humalog), 0 SUBQ, (Reported) Vit D3/Folic Acid/B2/B6/B12 (Folgard Tablet), 1 EACH GT, (Reported) Patient History Healthcare decision maker unk Resuscitation status Full Code Advanced Directive on File No Review of Systems ROS Narrative Unable to obtain as patient not verbal Physical Exam Physical Exam Narrative Gen: On Vent HEENT: NCAT, MMM, PERRL, no scleral icterus NECK: supple, Intubated, No LAD, No JVD, Right IJ LUNGS: Coarse B/L, No W/C, CARDS: RRR, S1, S2, No M/R/G, ABD: Soft, NT, ND, No R/G, + BS, No HSM, No Masses, PEG ( No E/P) : Deferred Ext: C/C/E, Pulses 2+ B/L (DP, Rad): NEURO: Intuibated on Vent SKIN: Warm/dry, No rashes, B/L buttock ulcers Last 24 Hour Vital Signs Date Time Temp Pulse Resp B/P (MAP) Pulse Ox O2 Delivery O2 Flow Rate FiO2 02/20/19 09:51 113 24 60 02/20/19 08:02 113 87/45 02/20/19 07:30 112 25 60 02/20/19 07:19 87/60 02/20/19 06:45 106 22 59/42 (48) 02/20/19 06:31 106 22 59/42 (48) 02/20/19 06:30 106 22 59/42 (48) 02/20/19 06:15 106 22 59/42 (48) 02/20/19 06:00 106 22 59/42 (48) 02/20/19 06:00 85/42 02/20/19 06:00 105 02/20/19 05:45 107 23 69/47 (54) 02/20/19 05:36 111 92/50 (64) 02/20/19 05:30 111 24 88/63 (71) 02/20/19 05:15 110 24 93/64 (74) 02/20/19 05:00 108 24 93/73 (80) 93 02/20/19 05:00 82/45 02/20/19 04:46 94 20 40 02/20/19 04:45 105 21 107/94 (98) 96 02/20/19 04:30 104 22 88/38 (55) 96 02/20/19 04:20 104 26 73/49 (57) 94 02/20/19 04:15 104 29 62/35 (44) 94 02/20/19 04:00 Mechanical Ventilator 50.0 Mechanical Ventilator 02/20/19 04:00 50 02/20/19 04:00 85/45 02/20/19 04:00 90.0 99 23 83/50 (61) 96 02/20/19 04:00 106 02/20/19 03:45 98 25 83/51 (62) 96 02/20/19 03:30 96 24 85/52 (63) 96 02/20/19 03:15 97 20 82/55 (64) 95 02/20/19 03:15 97 20 82/55 (64) 95 02/20/19 03:05 96 22 40 02/20/19 03:00 96 18 79/50 (60) 94 02/20/19 03:00 92/45 02/20/19 02:46 95 16 91/55 (67) 94 02/20/19 02:45 95 16 95 02/20/19 02:30 91 22 80/44 (56) 96 02/20/19 02:15 89 25 88/49 (62) 96 02/20/19 02:08 88 25 81/31 (48) 96 02/20/19 02:05 85/39 02/20/19 02:00 88 25 84/39 (54) 96 02/20/19 01:45 87 25 85/46 (59) 96 02/20/19 01:30 85 24 84/53 (63) 96 02/20/19 01:15 85 26 91/41 (58) 96 02/20/19 01:13 85 25 40 02/20/19 01:00 82 22 81/49 (60) 96 02/20/19 00:45 82 22 94/57 (69) 96 02/20/19 00:30 81 22 87/47 (60) 96 02/20/19 00:15 81 21 90/66 (74) 95 02/20/19 00:00 79 20 87/50 (62) 95 02/20/19 00:00 50 02/20/19 00:00 Mechanical Ventilator 50.0 Mechanical Ventilator 02/20/19 00:00 96 02/19/19 23:45 77 19 94 02/19/19 23:30 76 19 90/45 (60) 94 02/19/19 23:15 76 19 92/64 (73) 94 02/19/19 23:00 90/45 02/19/19 23:00 108 17 96/69 (78) 96 02/19/19 22:50 74 17 40 02/19/19 22:49 74 16 92/64 (73) 93 02/19/19 22:45 73 16 88/66 (73) 93 02/19/19 22:30 73 16 93/62 (72) 93 02/19/19 22:15 74 16 92/46 (61) 93 02/19/19 22:00 75/40 02/19/19 22:00 72 16 99/54 (69) 93 02/19/19 21:50 70 16 90/50 (63) 91 02/19/19 21:45 70 16 66/44 (51) 92 02/19/19 21:30 72 17 107/65 (79) 92 02/19/19 21:23 72 16 86/59 (68) 92 02/19/19 21:15 72 16 86/63 (71) 93 02/19/19 21:05 73 16 92/68 (76) 95 02/19/19 21:03 76 16 78/50 (59) 96 02/19/19 21:02 76 16 81/45 (57) 96 02/19/19 21:00 76 16 90/43 (59) 96 02/19/19 21:00 80/40 02/19/19 20:45 76 16 85/42 (56) 96 02/19/19 20:38 74 16 40 02/19/19 20:30 76 21 88/42 (57) 95 02/19/19 20:15 74 22 95/55 (68) 94 02/19/19 20:00 50 02/19/19 20:00 75/50 02/19/19 20:00 Mechanical Ventilator 50.0 Mechanical Ventilator 02/19/19 20:00 74 22 90/34 (52) 96 02/19/19 20:00 87.6 74 75/36 (49) 02/19/19 20:00 75 02/19/19 19:48 73 23 91/46 (61) 96 02/19/19 19:45 73 21 84/63 (70) 96 02/19/19 19:30 62 18 75/53 (60) 100 02/19/19 19:29 62 21 40 02/19/19 19:29 90/58 02/19/19 19:15 65 17 97/58 (71) 99 02/19/19 19:00 63 16 95/53 (67) 98 02/19/19 18:45 66 17 94/66 (75) 99 02/19/19 18:34 Mechanical Ventilator Mechanical Ventilator 02/19/19 18:30 70 18 118/59 (78) 83 02/19/19 18:15 65 19 97/65 93 Mechanical Ventilator 50 02/19/19 18:15 65 14 86/66 (73) 97 02/19/19 18:06 65 02/19/19 18:00 87.4 65 15 89/55 (66) 99 02/19/19 16:54 69 20 50 02/19/19 16:00 59 15 95/78 95 Mechanical Ventilator 50 02/19/19 15:55 86/68 02/19/19 15:50 80/55 02/19/19 15:45 76/63 02/19/19 15:40 72/46 02/19/19 15:32 65/46 02/19/19 15:00 58 18 63/40 100 Mechanical Ventilator 50 02/19/19 14:56 60 20 50 02/19/19 14:30 61 22 Mechanical Ventilator 50 02/19/19 14:15 61 21 58/36 92 Mechanical Ventilator 50 02/19/19 13:50 66 25 97 Mechanical Ventilator 50 02/19/19 13:50 66 25 50 02/19/19 13:42 65 24 110/85 (93) 92 Mechanical Ventilator Intake and Output 02/19/19 02/20/19 19:00 07:00 Intake Total 5.100 ml 1969.0 ml Output Total 400 ml 480 ml Balance -394.900 ml 1489.0 ml Intake Oral 0 ml IV Total 5.100 ml 1969.0 ml Output Urine Total 400 ml 480 ml Laboratory Tests Test 02/19/19 14:50 02/19/19 16:13 02/19/19 17:20 02/20/19 05:40 White Blood Count 17.8 K/UL (4.8-10.8) H 23.6 K/UL (4.8-10.8) *H Red Blood Count 3.02 M/UL (4.70-6.10) L 3.14 M/UL (4.70-6.10) L Hemoglobin 9.0 G/DL (14.2-18.0) L 9.1 G/DL (14.2-18.0) L Hematocrit 25.9 % (42.0-52.0) L 28.5 % (42.0-52.0) L Mean Corpuscular Volume 86 FL (80-99) 91 FL (80-99) Mean Corpuscular Hemoglobin 29.8 PG (27.0-31.0) 29.0 PG (27.0-31.0) Mean Corpuscular Hemoglobin Concent 34.8 G/DL (32.0-36.0) 31.9 G/DL (32.0-36.0) L Red Cell Distribution Width 14.2 % (11.6-14.8) 15.7 % (11.6-14.8) H Platelet Count 111 K/UL (150-450) L 115 K/UL (150-450) L Mean Platelet Volume 10.2 FL (6.5-10.1) H 8.5 FL (6.5-10.1) Neutrophils (%) (Auto) 81.3 % (45.0-75.0) H % (45.0-75.0) Lymphocytes (%) (Auto) 4.8 % (20.0-45.0) L % (20.0-45.0) Monocytes (%) (Auto) 1.8 % (1.0-10.0) % (1.0-10.0) Eosinophils (%) (Auto) 11.1 % (0.0-3.0) H % (0.0-3.0) Basophils (%) (Auto) 0.9 % (0.0-2.0) % (0.0-2.0) Sodium Level 128 MMOL/L (136-145) L 129 MMOL/L (136-145) L Potassium Level 6.3 MMOL/L (3.5-5.1) *H 6.1 MMOL/L (3.5-5.1) *H Chloride Level 97 MMOL/L (98-107) L 99 MMOL/L (98-107) Carbon Dioxide Level 30 MMOL/L (21-32) 23 MMOL/L (21-32) Anion Gap 1 mmol/L (5-15) L 7 mmol/L (5-15) Blood Urea Nitrogen 68 mg/dL (7-18) H 62 mg/dL (7-18) H Creatinine 0.9 MG/DL (0.55-1.30) 0.8 MG/DL (0.55-1.30) Estimat Glomerular Filtration Rate > 60 mL/min (>60) > 60 mL/min (>60) Glucose Level 166 MG/DL (74-106) H 171 MG/DL (74-106) H Lactic Acid Level 3.50 mmol/L (0.4-2.0) H 2.50 mmol/L (0.66-2.22) H Calcium Level 8.4 MG/DL (8.5-10.1) L 8.5 MG/DL (8.5-10.1) Total Bilirubin 0.2 MG/DL (0.2-1.0) 0.2 MG/DL (0.2-1.0) Aspartate Amino Transf (AST/SGOT) 77 U/L (15-37) H 78 U/L (15-37) H Alanine Aminotransferase (ALT/SGPT) 52 U/L (12-78) 52 U/L (12-78) Alkaline Phosphatase 230 U/L (46-116) H 246 U/L (46-116) H Total Creatine Kinase 123 U/L (26-308) Creatine Kinase MB 13.7 NG/ML (0.0-3.6) H Creatine Kinase MB Relative Index 11.1 Troponin I 0.000 ng/mL (0.000-0.056) Pro-B-Type Natriuretic Peptide 1679 pg/mL (0-125) H Total Protein 5.5 G/DL (6.4-8.2) L 5.8 G/DL (6.4-8.2) L Albumin 1.2 G/DL (3.4-5.0) L 1.3 G/DL (3.4-5.0) L Globulin 4.3 g/dL 4.5 g/dL Albumin/Globulin Ratio 0.3 (1.0-2.7) L 0.3 (1.0-2.7) L Urine Color Yellow Urine Appearance Cloudy Urine pH 5 (4.5-8.0) Urine Specific [place] 1.010 (1.005-1.035) Urine Protein 3+ (NEGATIVE) H Urine Glucose (UA) Negative (NEGATIVE) Urine Ketones Negative (NEGATIVE) Urine Blood 5+ (NEGATIVE) H Urine Nitrite Negative (NEGATIVE) Urine Bilirubin Negative (NEGATIVE) Urine Urobilinogen Normal MG/DL (0.0-1.0) Urine Leukocyte Esterase 3+ (NEGATIVE) H Urine RBC Tntc /HPF (0 - 0) H Urine WBC Tntc /HPF (0 - 0) H Urine Squamous Epithelial Cells Occasional /LPF Urine Bacteria Many /HPF (NONE) H Differential Total Cells Counted 100 Neutrophils % (Manual) 68 % (45-75) Lymphocytes % (Manual) 9 % (20-45) L Monocytes % (Manual) 2 % (1-10) Eosinophils % (Manual) 6 % (0-3) H Basophils % (Manual) 0 % (0-2) Band Neutrophils 15 % (0-8) H Platelet Estimate Decreased L Platelet Morphology Normal Anisocytosis 1+ Direct Bilirubin < 0.1 MG/DL (0.0-0.3) Test 02/20/19 05:50 02/20/19 08:08 02/20/19 08:27 Lactic Acid Level 3.30 mmol/L (0.4-2.0) H 3.10 mmol/L (0.66-2.22) H Phosphorus Level 3.7 MG/DL (2.5-4.9) Magnesium Level 1.9 MG/DL (1.8-2.4) Troponin I 0.000 ng/mL (0.000-0.056) Arterial Blood pH 7.477 (7.350-7.450) Arterial Blood Partial Pressure CO2 32.4 mmHg (35.0-45.0) L Arterial Blood Partial Pressure O2 110.7 mmHg (75.0-100.0) H Arterial Blood HCO3 23.4 mmol/L (22.0-26.0) Arterial Blood Oxygen Saturation 97.9 % (95-100) Arterial Blood Base Excess 0.2 (-2-2) Melvin Test Positive Microbiology Date/Time Source Procedure Growth Status 02/19/19 17:20 Urine,Clean Catch Urine Culture - Preliminary Gram Negative Bacillus 1 Resulted 02/19/19 17:21 Rectum Received Height (Feet): 5 Height (Inches): 6.00 Weight (Pounds): 202 Medications Current Medications Medications (Trade) Dose Ordered Sig/Sima Route PRN Reason Start Time Stop Time Status Last Admin Dose Admin Acetaminophen (Tylenol) 650 mg Q4H PRN ORAL T>100.5 02/19/19 19:45 03/21/19 19:44 Albumin Human 500 ml @ 0 mls/hr Q0M IV 02/20/19 09:00 02/20/19 11:00 02/20/19 09:58 Albuterol/ Ipratropium (Albuterol/ Ipratropium) 3 ml Q4H PRN HHN Shortness of Breath 02/19/19 19:45 02/24/19 19:44 Amikacin Protocol (Amikacin pharmacy to dose) 1 ea DAILY PRN MISC Per RX protocol 02/20/19 09:15 03/22/19 09:14 Amikacin Sulfate 1000 mg/Sodium Chloride 114 ml @ 114 mls/hr Q24H IV 02/20/19 00:00 02/27/19 00:00 02/20/19 00:02 Dextrose (Dextrose 50%) 25 ml Q30M PRN IV Hypoglycemia 02/19/19 20:15 03/21/19 20:14 Dextrose (Dextrose 50%) 50 ml Q30M PRN IV Hypoglycemia 02/19/19 20:15 03/21/19 20:14 Ertapenem 1 gm/ Sodium Chloride 55 ml @ 110 mls/hr Q24H IV 02/19/19 21:00 02/24/19 20:59 02/19/19 21:34 Heparin Sodium (Porcine) (Heparin 5000 units/ml) 5,000 units EVERY 12 HOURS SUBQ 02/19/19 21:00 03/21/19 20:59 02/19/19 21:40 Hydrocortisone (Solu-CORTEF) 100 mg EVERY 8 HOURS IV 02/20/19 09:00 03/22/19 08:59 02/20/19 09:58 Insulin Aspart (NovoLOG) BEFORE MEALS AND HS SUBQ 02/19/19 21:30 03/21/19 21:29 02/19/19 21:39 Lorazepam (Ativan 2mg/ml 1ml) 2 mg Q2H PRN IV For Anxiety 02/19/19 19:45 02/26/19 19:44 Norepinephrine Bitartrate 8 mg/ Dextrose 500 ml @ 0 mls/hr Q24H IV 02/19/19 23:00 03/21/19 22:59 02/20/19 07:19 Ondansetron HCl (Zofran) 4 mg Q6H PRN IVP Nausea & Vomiting 02/19/19 19:45 03/21/19 19:44 Pantoprazole (Protonix) 40 mg Q12HR IVP 02/20/19 09:00 03/22/19 08:59 02/20/19 09:49 Phenylephrine HCl 50 mg/Dextrose 250 ml @ 0 mls/hr Q24H IV 02/20/19 07:30 03/22/19 07:29 02/20/19 08:02 Polyethylene Glycol (Miralax) 17 gm DAILYPRN PRN ORAL Constipation 02/19/19 19:45 03/21/19 19:44 Sodium Chloride 1,000 ml @ 100 mls/hr Q10H IVLG 02/19/19 19:42 03/21/19 19:41 02/20/19 06:40 Vancomycin HCl (Vanco rx to dose) 1 ea DAILY PRN MISC . 02/19/19 20:15 03/21/19 20:14 Vancomycin/Sodium Chloride 275 ml @ 183.333 mls/hr Q12HR@1000,2200 IVPB 02/20/19 10:00 02/25/19 09:59 02/20/19 10:45 Assessment/Plan Assessment/Plan: 64 yo amle with PMHx of Dementia DM, CVA and COPD who was sent to the ED from his SNF on 02/19/19 for SOB. Sepsis UTI vs PNA CXR 02/19/19 shows B/L atelectasis vs PNA Urine Cx 02/19/19 - GNR Chronic respiratory failure on Vent S/P Trach Hypothermic Leukocytosis Dementia DM HTN COPD CVA PLAN - Start Meropenem #1 and Vancomycin #1 02/20/19 S/P Ertapemem #1 and Amikacin #1 - f/u Cultures U/B/S - get Legionella Ag - Monitor CBC and Temps Thank you for this consult. [facility] will continue to follow the patient with you during this hospitalization. Ramses Rodriguez MD Feb 20, 2019 10:54
[2019-02-20] MEDS: Meropenem 1 GM in NS 55 ML IVPB SCH ×2 (14:49→21:48)
--- NOTE | 2019-02-20 16:01 | History & Physical ---
History and Physical History & Physicial Dictated for Int Med-Dr Peña no. [id number]. Samuel Caballero MD Feb 20, 2019 16:01
[2019-02-21] VITALS (72 sets, daily range): BP systolic 89–127; BP diastolic 56–87
[2019-02-21] MEDS: Norepinephrine Bitartrate 8 MG in D5W 500ml 492 ML IV SCH ×4 (02:40→18:25)
[2019-02-21 05:24] LABS: HEMATOCRIT 25.1 % (42.0-52.0); HEMOGLOBIN 8.1 G/DL (14.2-18.0); MEAN CORPUSCULAR VOLUME 88 FL (80-99); PLATELET COUNT 87 K/UL (150-450); RED BLOOD COUNT 2.85 M/UL (4.70-6.10); RED CELL DISTRIBUTION WIDTH 15.7 % (11.6-14.8); WHITE BLOOD COUNT 17.6 K/UL (4.8-10.8)
[2019-02-21] MEDS: Meropenem 1 GM in NS 55 ML IVPB SCH ×3 (05:34→22:35)
[2019-02-21] MEDS: Hydrocortisone 100mg Inj IV SCH ×3 (05:34→22:34)
[2019-02-21 05:35] LABS: AMMONIA 41 umol/L (11-32)
[2019-02-21] MEDS: NovoLOG Insulin Flexpen SUBQ SCH ×4 (05:47→21:01)
[2019-02-21 06:00] LABS: ALANINE AMINOTRANSFERASE 49 U/L (12-78); ALBUMIN 1.6 G/DL (3.4-5.0); ALBUMIN/GLOBULIN RATIO 0.4 (1.0-2.7); ALKALINE PHOSPHATASE 338 U/L (46-116); ANION GAP 9 mmol/L (5-15); ASPARTATE AMINO TRANSFERASE 77 U/L (15-37); BILIRUBIN,TOTAL 0.3 MG/DL (0.2-1.0); BLOOD UREA NITROGEN 52 mg/dL (7-18); CARBON DIOXIDE 23 MMOL/L (21-32); CHLORIDE 104 MMOL/L (98-107); CHOLESTEROL 73 MG/DL (< 200); CREATINE KINASE 42 U/L (26-308); CREATININE 0.9 MG/DL (0.55-1.30); FERRITIN 235 NG/ML (8-388); GAMMA GLUTAMYL TRANSPEPTIDASE 307 U/L (5-85); HDL CHOLESTEROL 33 MG/DL (40-60); PHOSPHORUS 4.4 MG/DL (2.5-4.9); POTASSIUM 5.4 MMOL/L (3.5-5.1); SODIUM 136 MMOL/L (136-145); TRIGLYCERIDES 25 MG/DL (30-150)
[2019-02-21 07:03] LABS: % IRON SATURATION 45 % (15-50); IRON 92 ug/dL (50-175); TOTAL IRON BINDING CAPACITY 205 ug/dL (250-450)
[2019-02-21] MEDS: Heparin 5000 units/ml inj SUBQ SCH ×2 (09:00→20:59)
[2019-02-21] MEDS: Pantoprazole Inj IVP SCH ×2 (09:11→20:58)
[2019-02-21] MEDS: Phenylephrine 50 MG in D5W 245 ML IV SCH (10:22)
--- NOTE | 2019-02-21 11:00 | Infectious Diseases Prog Note ---
Assessment/Plan Assessment/Plan 64 yo amle with PMHx of Dementia DM, CVA and COPD who was sent to the ED from his [facility] on 02/[facility]/19 for SOB. Septic Shock UTI c/w bacteremia probable PNA CXR 02/19/19 shows B/L atelectasis vs PNA Urine Cx 02/19/19 - GNR 02/19 03/30 GNR Chronic respiratory failure on Vent S/P Trach Hypothermic; improving Leukocytosis; improving hx of ESBL and MRSA bacteremia early Jan 2019 Dementia DM HTN COPD CVA PLAN - Cont empiric Meropenem #2 and Vancomycin #2 02/20/19 S/P Ertapemem #1 and Amikacin #1 - f/u Cultures U/B/S - f/u Legionella Ag - Monitor CBC and Temps -influenza sc -repeat Bcx x2 Thank you for this consult. [facility] will continue to follow the patient with you during this hospitalization. Subjective Allergies: Coded Allergies: OXYTETRACYCLINE (Unverified Allergy, Unknown, 09/05/13) PENICILLINS (Unverified Allergy, Unknown, 06/11/17) Tolerated one dose of Cefepime 06/07/17 Tolerated Cefdinir 06/10/17 Uncoded Allergies: PLASTIC TAPE (Allergy, Mild, ITCHINESS, 08/08/15) MEDICAL TAPE (Allergy, Unknown, 12/10/16) Subjective hypothermia improving wbc improved Navid down to 20, levo down to 26 bacteremic Objective Vital Signs Last 24 Hour Vital Signs Date Time Temp Pulse Resp B/P (MAP) Pulse Ox O2 Delivery O2 Flow Rate FiO2 02/21/19 10:22 84 104/68 02/21/19 10:00 103/63 02/21/19 10:00 85 16 103/63 (76) 100 02/21/19 09:30 85 16 103/62 (76) 100 02/21/19 09:19 85 16 60 02/21/19 09:15 84 16 104/67 (79) 100 02/21/19 09:00 104/69 02/21/19 09:00 86 16 104/69 (81) 93 02/21/19 08:30 87 16 99/67 (78) 100 02/21/19 08:00 102/59 02/21/19 08:00 60 02/21/19 08:00 97.7 87 16 102/59 (73) 100 02/21/19 08:00 86 02/21/19 07:49 102/61 02/21/19 07:34 88 16 60 02/21/19 07:30 88 16 103/67 (79) 100 02/21/19 07:00 102/65 02/21/19 07:00 89 16 102/65 (77) 100 02/21/19 06:45 90 16 100/67 (78) 99 02/21/19 06:30 90 16 102/63 (76) 99 02/21/19 06:15 89 16 102/64 (77) 99 02/21/19 06:00 89 16 96/66 (76) 100 02/21/19 06:00 100/67 02/21/19 05:45 89 16 96/62 (73) 99 02/21/19 05:30 89 16 60 02/21/19 05:30 88 16 97/64 (75) 96 02/21/19 05:15 88 16 90/62 (71) 99 02/21/19 05:00 96/62 02/21/19 05:00 89 16 94/59 (71) 99 02/21/19 04:47 89 16 90/58 (69) 99 02/21/19 04:45 89 16 89/56 (67) 99 02/21/19 04:30 90 16 90/56 (67) 100 02/21/19 04:15 97.8 91 17 91/57 (68) 100 02/21/19 04:00 95 24 97/57 (70) 93 02/21/19 04:00 60 02/21/19 04:00 97/57 02/21/19 04:00 Mechanical Ventilator 60.0 Mechanical Ventilator 02/21/19 04:00 95 02/21/19 03:45 93 16 98/59 (72) 100 02/21/19 03:30 94 17 92/62 (72) 100 02/21/19 03:15 96 16 101/69 (80) 100 02/21/19 03:05 95 16 60 02/21/19 03:00 94 15 101/62 (75) 99 02/21/19 03:00 101/69 02/21/19 02:45 94 16 95/61 (72) 100 02/21/19 02:40 96/55 02/21/19 02:30 97 16 101/63 (76) 98 02/21/19 02:15 94 16 100/57 (71) 97 02/21/19 02:00 100/57 02/21/19 02:00 96 16 105/66 (79) 100 02/21/19 01:45 96 16 102/72 (82) 100 02/21/19 01:31 98 16 60 02/21/19 01:30 100 20 109/64 (79) 95 02/21/19 01:15 99 16 106/69 (81) 100 02/21/19 01:00 103/57 02/21/19 01:00 98 18 103/57 (72) 100 02/21/19 00:45 99 19 101/65 (77) 99 02/21/19 00:30 100 19 99/67 (78) 100 02/21/19 00:15 100 18 102/68 (79) 99 02/21/19 00:00 102 18 105/69 (81) 100 02/21/19 00:00 102/68 02/21/19 00:00 101 02/21/19 00:00 Mechanical Ventilator 60.0 Mechanical Ventilator 02/20/19 23:45 101 17 101/64 (76) 98 02/20/19 23:30 101 17 101/63 (76) 99 02/20/19 23:23 109 21 60 02/20/19 23:15 103 18 98/65 (76) 100 02/20/19 23:00 98/65 02/20/19 23:00 103 20 97/60 (72) 95 02/20/19 22:45 102 102/60 02/20/19 22:45 103 17 98/59 (72) 100 02/20/19 22:32 102 15 102/60 (74) 99 02/20/19 22:30 103 17 85/50 (62) 99 02/20/19 22:15 105 18 99/57 (71) 99 02/20/19 22:00 105 18 97/60 (72) 99 02/20/19 22:00 97/60 02/20/19 21:47 96/61 02/20/19 21:45 106 18 96/61 (73) 100 02/20/19 21:30 106 19 97/66 (76) 100 02/20/19 21:30 105 23 60 02/20/19 21:15 103 17 94/55 (68) 99 02/20/19 21:00 98.6 107 19 95/56 (69) 99 02/20/19 21:00 95/56 02/20/19 20:45 107 18 96/58 (71) 99 02/20/19 20:30 106 19 99/62 (74) 99 02/20/19 20:15 106 18 95/62 (73) 99 02/20/19 20:00 107 02/20/19 20:00 96/59 02/20/19 20:00 Mechanical Ventilator 60.0 Mechanical Ventilator 02/20/19 20:00 106 18 96/59 (71) 99 02/20/19 20:00 60 02/20/19 19:45 107 18 102/60 (74) 100 02/20/19 19:30 108 19 93/57 (69) 100 02/20/19 19:30 106 19 60 02/20/19 19:15 108 18 92/63 (73) 100 02/20/19 19:00 109 20 95/62 (73) 100 02/20/19 19:00 95/62 02/20/19 18:45 108 18 99/62 (74) 100 02/20/19 18:30 107 19 95/60 (72) 100 02/20/19 18:15 108 21 94/64 (74) 100 02/20/19 18:00 90/61 02/20/19 18:00 107 19 94/67 (76) 99 02/20/19 17:52 99/52 02/20/19 17:51 108 99/52 02/20/19 17:45 108 19 99/52 (68) 99 02/20/19 17:35 108 19 60 02/20/19 17:30 107 21 106/59 (75) 99 02/20/19 17:15 108 17 96/66 (76) 99 02/20/19 17:00 108 21 90/61 (71) 99 02/20/19 17:00 90/61 02/20/19 16:30 109 21 98/61 (73) 99 02/20/19 16:00 60 02/20/19 16:00 97/58 02/20/19 16:00 Mechanical Ventilator 60.0 Mechanical Ventilator 02/20/19 16:00 108 02/20/19 16:00 98.6 110 22 97/58 (71) 98 02/20/19 15:30 108 21 95/59 (71) 99 02/20/19 15:20 109 21 60 02/20/19 15:00 108 19 95/57 (70) 99 02/20/19 15:00 94/67 02/20/19 14:30 109 20 92/65 (74) 99 02/20/19 14:00 94/69 02/20/19 14:00 110 21 94/69 (77) 99 02/20/19 13:33 108 21 60 02/20/19 13:30 108 21 97/62 (74) 98 02/20/19 13:00 90/63 02/20/19 13:00 109 22 90/63 (72) 98 02/20/19 12:33 109 90/50 02/20/19 12:30 109 22 94/50 (65) 98 02/20/19 12:17 89/58 02/20/19 12:00 Mechanical Ventilator 60.0 Mechanical Ventilator 02/20/19 12:00 111 02/20/19 12:00 98.8 112 22 101/40 (60) 97 02/20/19 12:00 60 02/20/19 11:30 113 23 94/65 (75) 96 02/20/19 11:23 114 24 60 02/20/19 11:00 113 24 97/65 (76) 96 02/20/19 11:00 97/65 Height (Feet): 5 Height (Inches): 6.00 Weight (Pounds): 194 Objective Gen: On Vent HEENT: NCAT, MMM, PERRL, no scleral icterus NECK: supple, Intubated, No LAD, No JVD, Right IJ LUNGS: Coarse B/L, No W/C, CARDS: RRR, S1, S2, No M/R/G, ABD: Soft, NT, ND, No R/G, + BS, No HSM, No Masses, PEG ( No E/P) : Deferred Ext: C/C/E, Pulses 2+ B/L (DP, Rad): NEURO: Intuibated on Vent SKIN: Warm/dry, No rashes, B/L buttock ulcers Microbiology Date/Time Source Procedure Growth Status 02/19/19 20:15 Blood Blood Culture - Preliminary Gram Negative Bacillus 1 Resulted 02/19/19 20:00 Blood Blood Culture - Preliminary NO GROWTH AFTER 24 HOURS Resulted 02/19/19 15:05 Blood Blood Culture - Preliminary NO GROWTH AFTER 24 HOURS Resulted 02/19/19 14:50 Blood Blood Culture - Preliminary NO GROWTH AFTER 24 HOURS Resulted 02/19/19 17:21 Nasal Nares MRSA Culture - Final NO METHICILLIN RESISTANT STAPH AUREUS... 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 Complete Laboratory Tests Test 02/20/19 11:50 02/20/19 14:10 02/20/19 16:35 02/20/19 21:45 Random Amikacin Level 12.9 ug/mL Lactic Acid Level 2.60 mmol/L (0.4-2.0) H 3.20 mmol/L (0.66-2.22) H 2.60 mmol/L (0.4-2.0) H Test 02/20/19 23:45 02/21/19 03:15 02/21/19 08:10 Lactic Acid Level 2.50 mmol/L (0.66-2.22) H 2.30 mmol/L (0.4-2.0) H White Blood Count 17.6 K/UL (4.8-10.8) H Red Blood Count 2.85 M/UL (4.70-6.10) L Hemoglobin 8.1 G/DL (14.2-18.0) L Hematocrit 25.1 % (42.0-52.0) L Mean Corpuscular Volume 88 FL (80-99) Mean Corpuscular Hemoglobin 28.5 PG (27.0-31.0) Mean Corpuscular Hemoglobin Concent 32.3 G/DL (32.0-36.0) Red Cell Distribution Width 15.7 % (11.6-14.8) H Platelet Count 87 K/UL (150-450) L Mean Platelet Volume 7.3 FL (6.5-10.1) Neutrophils (%) (Auto) % (45.0-75.0) Lymphocytes (%) (Auto) % (20.0-45.0) Monocytes (%) (Auto) % (1.0-10.0) Eosinophils (%) (Auto) % (0.0-3.0) Basophils (%) (Auto) % (0.0-2.0) Differential Total Cells Counted 100 Neutrophils % (Manual) 90 % (45-75) H Lymphocytes % (Manual) 8 % (20-45) L Monocytes % (Manual) 2 % (1-10) Eosinophils % (Manual) 0 % (0-3) Basophils % (Manual) 0 % (0-2) Band Neutrophils 0 % (0-8) Platelet Estimate Decreased L Platelet Morphology Normal Hypochromasia 2+ Anisocytosis 1+ Sodium Level 136 MMOL/L (136-145) Potassium Level 5.4 MMOL/L (3.5-5.1) H Chloride Level 104 MMOL/L (98-107) Carbon Dioxide Level 23 MMOL/L (21-32) Anion Gap 9 mmol/L (5-15) Blood Urea Nitrogen 52 mg/dL (7-18) H Creatinine 0.9 MG/DL (0.55-1.30) Estimat Glomerular Filtration Rate > 60 mL/min (>60) Glucose Level 229 MG/DL (74-106) H Hemoglobin A1c 6.2 % (4.3-6.0) H Uric Acid 6.3 MG/DL (2.6-7.2) Calcium Level 8.0 MG/DL (8.5-10.1) L Phosphorus Level 4.4 MG/DL (2.5-4.9) Magnesium Level 1.9 MG/DL (1.8-2.4) Iron Level 92 ug/dL (50-175) Total Iron Binding Capacity 205 ug/dL (250-450) L Percent Iron Saturation 45 % (15-50) Unsaturated Iron Binding 113 ug/dL (112-346) Ferritin 235 NG/ML (8-388) Total Bilirubin 0.3 MG/DL (0.2-1.0) Gamma Glutamyl Transpeptidase 307 U/L (5-85) H Aspartate Amino Transf (AST/SGOT) 77 U/L (15-37) H Alanine Aminotransferase (ALT/SGPT) 49 U/L (12-78) Alkaline Phosphatase 338 U/L (46-116) H Ammonia 41 umol/L (11-32) H Total Creatine Kinase 42 U/L (26-308) Troponin I 0.000 ng/mL (0.000-0.056) C-Reactive Protein, Quantitative 23.1 mg/dL (0.00-0.90) H Pro-B-Type Natriuretic Peptide 6242 pg/mL (0-125) H Total Protein 5.7 G/DL (6.4-8.2) L Albumin 1.6 G/DL (3.4-5.0) L Globulin 4.1 g/dL Albumin/Globulin Ratio 0.4 (1.0-2.7) L Triglycerides Level 25 MG/DL (30-150) L Cholesterol Level 73 MG/DL (< 200) LDL Cholesterol 27 mg/dL (<100) HDL Cholesterol 33 MG/DL (40-60) L Cholesterol/HDL Ratio 2.2 (3.3-4.4) L Vitamin B12 Level > 2000 PG/ML (193-986) H Folate 11.6 NG/ML (8.6-58.9) Thyroid Stimulating Hormone (TSH) 3.798 uiU/mL (0.358-3.740) Vancomycin Level Trough 34.1 ug/mL (5.0-12.0) H Current Medications Medications (Trade) Dose Ordered Sig/Sima Route PRN Reason Start Time Stop Time Status Last Admin Dose Admin Acetaminophen (Tylenol) 650 mg Q4H PRN ORAL T>100.5 02/19/19 19:45 03/21/19 19:44 Albuterol/ Ipratropium (Albuterol/ Ipratropium) 3 ml Q4H PRN HHN Shortness of Breath 02/19/19 19:45 02/24/19 19:44 Chlorhexidine Gluconate (Paulina-Hex 2%) 1 applic DAILY@1999 TOPIC 02/21/19 20:00 03/23/19 19:59 Dextrose (Dextrose 50%) 25 ml Q30M PRN IV Hypoglycemia 02/19/19 20:15 03/21/19 20:14 Dextrose (Dextrose 50%) 50 ml Q30M PRN IV Hypoglycemia 02/19/19 20:15 03/21/19 20:14 Heparin Sodium (Porcine) (Heparin 5000 units/ml) 5,000 units EVERY 12 HOURS SUBQ 02/19/19 21:00 03/21/19 20:59 02/20/19 20:55 Hydrocortisone (Solu-CORTEF) 100 mg EVERY 8 HOURS IV 02/20/19 09:00 03/22/19 08:59 02/21/19 05:34 Insulin Aspart (NovoLOG) BEFORE MEALS AND HS SUBQ 02/19/19 21:30 03/21/19 21:29 02/21/19 05:47 Lorazepam (Ativan 2mg/ml 1ml) 2 mg Q2H PRN IV For Anxiety 02/19/19 19:45 02/26/19 19:44 Meropenem 1 gm/ Sodium Chloride 55 ml @ 110 mls/hr Q8HR IVPB 02/20/19 14:00 02/25/19 13:59 02/21/19 05:34 Norepinephrine Bitartrate 8 mg/ Dextrose 500 ml @ 0 mls/hr Q24H IV 02/19/19 23:00 03/21/19 22:59 02/21/19 07:49 Ondansetron HCl (Zofran) 4 mg Q6H PRN IVP Nausea & Vomiting 02/19/19 19:45 03/21/19 19:44 Pantoprazole (Protonix) 40 mg Q12HR IVP 02/20/19 09:00 03/22/19 08:59 02/21/19 09:11 Phenylephrine HCl 50 mg/Dextrose 250 ml @ 0 mls/hr Q24H IV 02/20/19 07:30 03/22/19 07:29 02/21/19 10:22 Polyethylene Glycol (Miralax) 17 gm DAILYPRN PRN ORAL Constipation 02/19/19 19:45 03/21/19 19:44 Sodium Chloride 1,000 ml @ 50 mls/hr Q20H IV 02/20/19 16:00 03/22/19 15:59 02/21/19 05:34 Vancomycin HCl (Vanco rx to dose) 1 ea DAILY PRN MISC . 02/19/19 20:15 03/21/19 20:14 Nanci Kline M.D. Feb 21, 2019 11:00
--- NOTE | 2019-02-21 11:24 | Pulmonolgy Critical Care Note ---
Critical Care - Asmt/Plan Problems: (1) Septic shock (2) Pleural effusion (3) Chronic respiratory failure (4) Vegetative state (5) Tracheostomy in place (6) [facility] resident Respiratory: monitor respiratory rate, adjust FIO2, CXR Cardiac: continue pressors, continue to monitor HR/BP Renal: F/U I&O, keep IV fluid, check electrolytes Infectious Disease: check cultures Endocrine: monitor blood sugar Hematologic: monitor H/H, transfuse if hgb<8.5 Neurologic: PRN Ativan, keep patient comfortable Affect: PRN ativan Prophylaxis: Protonix, Heparin Disposition: keep in ICU Notes Reviewed: cardio, renal Discussed with: nurses, consultants, case maker, other - I discussed the prognosis with the pts . She is aware of dismal prognosis agreed with no chest compression and shock. Critical Care - Objective Last 24 Hour Vital Signs Date Time Temp Pulse Resp B/P (MAP) Pulse Ox O2 Delivery O2 Flow Rate FiO2 02/21/19 10:22 84 104/68 02/21/19 10:00 103/63 02/21/19 10:00 85 16 103/63 (76) 100 02/21/19 09:30 85 16 103/62 (76) 100 02/21/19 09:19 85 16 60 02/21/19 09:15 84 16 104/67 (79) 100 02/21/19 09:00 104/69 02/21/19 09:00 86 16 104/69 (81) 93 02/21/19 08:30 87 16 99/67 (78) 100 02/21/19 08:00 102/59 02/21/19 08:00 60 02/21/19 08:00 97.7 87 16 102/59 (73) 100 02/21/19 08:00 86 02/21/19 07:49 102/61 02/21/19 07:34 88 16 60 02/21/19 07:30 88 16 103/67 (79) 100 02/21/19 07:00 102/65 02/21/19 07:00 89 16 102/65 (77) 100 02/21/19 06:45 90 16 100/67 (78) 99 02/21/19 06:30 90 16 102/63 (76) 99 02/21/19 06:15 89 16 102/64 (77) 99 02/21/19 06:00 89 16 96/66 (76) 100 02/21/19 06:00 100/67 02/21/19 05:45 89 16 96/62 (73) 99 02/21/19 05:30 89 16 60 02/21/19 05:30 88 16 97/64 (75) 96 02/21/19 05:15 88 16 90/62 (71) 99 02/21/19 05:00 96/62 02/21/19 05:00 89 16 94/59 (71) 99 02/21/19 04:47 89 16 90/58 (69) 99 02/21/19 04:45 89 16 89/56 (67) 99 02/21/19 04:30 90 16 90/56 (67) 100 02/21/19 04:15 97.8 91 17 91/57 (68) 100 02/21/19 04:00 95 24 97/57 (70) 93 02/21/19 04:00 60 02/21/19 04:00 97/57 02/21/19 04:00 Mechanical Ventilator 60.0 Mechanical Ventilator 02/21/19 04:00 95 02/21/19 03:45 93 16 98/59 (72) 100 02/21/19 03:30 94 17 92/62 (72) 100 02/21/19 03:15 96 16 101/69 (80) 100 02/21/19 03:05 95 16 60 02/21/19 03:00 94 15 101/62 (75) 99 02/21/19 03:00 101/69 02/21/19 02:45 94 16 95/61 (72) 100 02/21/19 02:40 96/55 02/21/19 02:30 97 16 101/63 (76) 98 02/21/19 02:15 94 16 100/57 (71) 97 02/21/19 02:00 100/57 02/21/19 02:00 96 16 105/66 (79) 100 02/21/19 01:45 96 16 102/72 (82) 100 02/21/19 01:31 98 16 60 02/21/19 01:30 100 20 109/64 (79) 95 02/21/19 01:15 99 16 106/69 (81) 100 02/21/19 01:00 103/57 02/21/19 01:00 98 18 103/57 (72) 100 02/21/19 00:45 99 19 101/65 (77) 99 02/21/19 00:30 100 19 99/67 (78) 100 02/21/19 00:15 100 18 102/68 (79) 99 02/21/19 00:00 102 18 105/69 (81) 100 02/21/19 00:00 102/68 02/21/19 00:00 101 02/21/19 00:00 Mechanical Ventilator 60.0 Mechanical Ventilator 02/20/19 23:45 101 17 101/64 (76) 98 02/20/19 23:30 101 17 101/63 (76) 99 02/20/19 23:23 109 21 60 02/20/19 23:15 103 18 98/65 (76) 100 02/20/19 23:00 98/65 02/20/19 23:00 103 20 97/60 (72) 95 02/20/19 22:45 102 102/60 02/20/19 22:45 103 17 98/59 (72) 100 02/20/19 22:32 102 15 102/60 (74) 99 02/20/19 22:30 103 17 85/50 (62) 99 02/20/19 22:15 105 18 99/57 (71) 99 02/20/19 22:00 105 18 97/60 (72) 99 02/20/19 22:00 97/60 02/20/19 21:47 96/61 02/20/19 21:45 106 18 96/61 (73) 100 02/20/19 21:30 106 19 97/66 (76) 100 02/20/19 21:30 105 23 60 02/20/19 21:15 103 17 94/55 (68) 99 02/20/19 21:00 98.6 107 19 95/56 (69) 99 02/20/19 21:00 95/56 02/20/19 20:45 107 18 96/58 (71) 99 02/20/19 20:30 106 19 99/62 (74) 99 02/20/19 20:15 106 18 95/62 (73) 99 02/20/19 20:00 107 02/20/19 20:00 96/59 02/20/19 20:00 Mechanical Ventilator 60.0 Mechanical Ventilator 02/20/19 20:00 106 18 96/59 (71) 99 02/20/19 20:00 60 02/20/19 19:45 107 18 102/60 (74) 100 02/20/19 19:30 108 19 93/57 (69) 100 02/20/19 19:30 106 19 60 02/20/19 19:15 108 18 92/63 (73) 100 02/20/19 19:00 109 20 95/62 (73) 100 02/20/19 19:00 95/62 02/20/19 18:45 108 18 99/62 (74) 100 02/20/19 18:30 107 19 95/60 (72) 100 02/20/19 18:15 108 21 94/64 (74) 100 02/20/19 18:00 90/61 02/20/19 18:00 107 19 94/67 (76) 99 02/20/19 17:52 99/52 02/20/19 17:51 108 99/52 02/20/19 17:45 108 19 99/52 (68) 99 02/20/19 17:35 108 19 60 02/20/19 17:30 107 21 106/59 (75) 99 02/20/19 17:15 108 17 96/66 (76) 99 02/20/19 17:00 108 21 90/61 (71) 99 02/20/19 17:00 90/61 02/20/19 16:30 109 21 98/61 (73) 99 02/20/19 16:00 60 02/20/19 16:00 97/58 02/20/19 16:00 Mechanical Ventilator 60.0 Mechanical Ventilator 02/20/19 16:00 108 02/20/19 16:00 98.6 110 22 97/58 (71) 98 02/20/19 15:30 108 21 95/59 (71) 99 02/20/19 15:20 109 21 60 02/20/19 15:00 108 19 95/57 (70) 99 02/20/19 15:00 94/67 02/20/19 14:30 109 20 92/65 (74) 99 02/20/19 14:00 94/69 02/20/19 14:00 110 21 94/69 (77) 99 02/20/19 13:33 108 21 60 02/20/19 13:30 108 21 97/62 (74) 98 02/20/19 13:00 90/63 02/20/19 13:00 109 22 90/63 (72) 98 02/20/19 12:33 109 90/50 02/20/19 12:30 109 22 94/50 (65) 98 02/20/19 12:17 89/58 02/20/19 12:00 Mechanical Ventilator 60.0 Mechanical Ventilator 02/20/19 12:00 111 02/20/19 12:00 98.8 112 22 101/40 (60) 97 02/20/19 12:00 60 02/20/19 11:30 113 23 94/65 (75) 96 02/20/19 11:23 114 24 60 Status: somnolent Condition: critical HEENT: atraumatic Lungs: clear Heart: HR/BP stable, regular Abdomen: feeding tube Decubiti: stage Micro: Microbiology Date/Time Source Procedure Growth Status 02/19/19 20:15 Blood Blood Culture - Preliminary Gram Negative Bacillus 1 Resulted 02/19/19 20:00 Blood Blood Culture - Preliminary NO GROWTH AFTER 24 HOURS Resulted 02/19/19 15:05 Blood Blood Culture - Preliminary NO GROWTH AFTER 24 HOURS Resulted 02/19/19 14:50 Blood Blood Culture - Preliminary NO GROWTH AFTER 24 HOURS Resulted 02/19/19 17:21 Nasal Nares MRSA Culture - Final NO METHICILLIN RESISTANT STAPH AUREUS... 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 Complete Accucheck: 216 Critical Care - Subjective ROS Limited/Unobtainable: Yes Condition: critical EKG Rhythm: Sinus Rhythm FI02: 60 Vent Support Breath Rate: 16 Vent Support Mode: AC Vent Tidal Volume: 600 Sputum Amount: Small PEEP: 0.0 PIP: 31 I&O: Intake and Output 02/20/19 02/21/19 18:59 06:59 Intake Total 3625.666 ml 2516.000 ml Output Total 475 ml 2340 ml Balance 3150.666 ml 176.000 ml Free Water 30 ml IV Total 3545.666 ml 2516.000 ml Other 50 ml Output Urine Total 475 ml 2340 ml CXR: bilateral infiltrate Labs: Laboratory Tests Test 02/20/19 11:50 02/20/19 14:10 02/20/19 16:35 02/20/19 21:45 Random Amikacin Level 12.9 ug/mL Lactic Acid Level 2.60 mmol/L (0.4-2.0) H 3.20 mmol/L (0.66-2.22) H 2.60 mmol/L (0.4-2.0) H Test 02/20/19 23:45 02/21/19 03:15 02/21/19 08:10 Lactic Acid Level 2.50 mmol/L (0.66-2.22) H 2.30 mmol/L (0.4-2.0) H White Blood Count 17.6 K/UL (4.8-10.8) H Red Blood Count 2.85 M/UL (4.70-6.10) L Hemoglobin 8.1 G/DL (14.2-18.0) L Hematocrit 25.1 % (42.0-52.0) L Mean Corpuscular Volume 88 FL (80-99) Mean Corpuscular Hemoglobin 28.5 PG (27.0-31.0) Mean Corpuscular Hemoglobin Concent 32.3 G/DL (32.0-36.0) Red Cell Distribution Width 15.7 % (11.6-14.8) H Platelet Count 87 K/UL (150-450) L Mean Platelet Volume 7.3 FL (6.5-10.1) Neutrophils (%) (Auto) % (45.0-75.0) Lymphocytes (%) (Auto) % (20.0-45.0) Monocytes (%) (Auto) % (1.0-10.0) Eosinophils (%) (Auto) % (0.0-3.0) Basophils (%) (Auto) % (0.0-2.0) Differential Total Cells Counted 100 Neutrophils % (Manual) 90 % (45-75) H Lymphocytes % (Manual) 8 % (20-45) L Monocytes % (Manual) 2 % (1-10) Eosinophils % (Manual) 0 % (0-3) Basophils % (Manual) 0 % (0-2) Band Neutrophils 0 % (0-8) Platelet Estimate Decreased L Platelet Morphology Normal Hypochromasia 2+ Anisocytosis 1+ Sodium Level 136 MMOL/L (136-145) Potassium Level 5.4 MMOL/L (3.5-5.1) H Chloride Level 104 MMOL/L (98-107) Carbon Dioxide Level 23 MMOL/L (21-32) Anion Gap 9 mmol/L (5-15) Blood Urea Nitrogen 52 mg/dL (7-18) H Creatinine 0.9 MG/DL (0.55-1.30) Estimat Glomerular Filtration Rate > 60 mL/min (>60) Glucose Level 229 MG/DL (74-106) H Hemoglobin A1c 6.2 % (4.3-6.0) H Uric Acid 6.3 MG/DL (2.6-7.2) Calcium Level 8.0 MG/DL (8.5-10.1) L Phosphorus Level 4.4 MG/DL (2.5-4.9) Magnesium Level 1.9 MG/DL (1.8-2.4) Iron Level 92 ug/dL (50-175) Total Iron Binding Capacity 205 ug/dL (250-450) L Percent Iron Saturation 45 % (15-50) Unsaturated Iron Binding 113 ug/dL (112-346) Ferritin 235 NG/ML (8-388) Total Bilirubin 0.3 MG/DL (0.2-1.0) Gamma Glutamyl Transpeptidase 307 U/L (5-85) H Aspartate Amino Transf (AST/SGOT) 77 U/L (15-37) H Alanine Aminotransferase (ALT/SGPT) 49 U/L (12-78) Alkaline Phosphatase 338 U/L (46-116) H Ammonia 41 umol/L (11-32) H Total Creatine Kinase 42 U/L (26-308) Troponin I 0.000 ng/mL (0.000-0.056) C-Reactive Protein, Quantitative 23.1 mg/dL (0.00-0.90) H Pro-B-Type Natriuretic Peptide 6242 pg/mL (0-125) H Total Protein 5.7 G/DL (6.4-8.2) L Albumin 1.6 G/DL (3.4-5.0) L Globulin 4.1 g/dL Albumin/Globulin Ratio 0.4 (1.0-2.7) L Triglycerides Level 25 MG/DL (30-150) L Cholesterol Level 73 MG/DL (< 200) LDL Cholesterol 27 mg/dL (<100) HDL Cholesterol 33 MG/DL (40-60) L Cholesterol/HDL Ratio 2.2 (3.3-4.4) L Vitamin B12 Level > 2000 PG/ML (193-986) H Folate 11.6 NG/ML (8.6-58.9) Thyroid Stimulating Hormone (TSH) 3.798 uiU/mL (0.358-3.740) Vancomycin Level Trough 34.1 ug/mL (5.0-12.0) H Sagar Rudd MD Feb 21, 2019 11:24
--- NOTE | 2019-02-21 12:45 | Cardiology Report ---
APPROVED REPORT EXAM: Two-dimensional and M-mode echocardiogram. INDICATION Left Ventricular function 2D DIMENSIONS IVSd1.1 (0.7-1.1cm) LVDd3.8 (3.8-5.6cm) PWd1.1 (0.7-1.1cm) M-Mode DIMENSIONS Left Atrium (MM)2.9 (1.6-4.0cm) Aortic Root2.4 (2.0-3.7cm) Aortic Cusp Exc.1.9 (1.5-2.0cm) Other Information Technically limited study due to Limited Technically difficult study due to poor acoustic windows, ventilator and contracted left hand. M-mode measurements of left ventricle not obtainable due to cardiac position (angle) Normal left ventricular chamber size, systolic function and wall motion. Left ventricular ejection fraction estimated to be 55-60 %. Small circumferential pericardial effusion(1.2cm) All other cardiac chamber sizes are within normal limits. Focal aortic valve sclerosis with adequate cusp excursion. Thickened mitral valve leaflets with normal excursion. Mitral annulus and aortic root calcification. Pulmonic valve not well visualized. Normal tricuspid valve structure. IVC normal size with physiological collapse. A color flow and spectral Doppler study was performed and revealed: Mild mitral regurgitation. / Mitral diastolic velocities suggest mild left ventricular diastolic dysfunction (Grade I). / Mild tricuspid regurgitation. Tricuspid systolic velocities suggests peak right ventricular systolic pressure of 21 mmHg.
--- NOTE | 2019-02-21 13:19 | Nephrology Progress Note ---
Assessment/Plan Problem List: (1) Septic shock (2) Hyperkalemia (3) Acute and chronic respiratory failure (4) Ventilator dependence (5) Feeding by G-tube Assessment (1) Hyperkalemia (2) HARDEEP (acute kidney injury) (3) Sepsis / shock (4) Hyponatremia Others: HCAP (healthcare-associated pneumonia) Chronic respiratory failure Ventilator dependence Vegetative state History of CVA (cerebrovascular accident) Feeding by G-tube HTN (hypertension) Cerebral vascular disease Plan Antibiotics Hydrocortisone trial Kayexelate as needed monitor lytes per orders poor prognosis Subjective ROS Limited/Unobtainable: Yes Objective Objective Last 24 Hour Vital Signs Date Time Temp Pulse Resp B/P (MAP) Pulse Ox O2 Delivery O2 Flow Rate FiO2 02/21/19 13:04 89/65 02/21/19 11:20 87 16 60 02/21/19 11:00 82 16 104/66 (79) 99 02/21/19 11:00 104/66 02/21/19 10:30 84 16 104/69 (81) 99 02/21/19 10:22 84 104/68 02/21/19 10:00 103/63 02/21/19 10:00 85 16 103/63 (76) 100 02/21/19 09:30 85 16 103/62 (76) 100 02/21/19 09:19 85 16 60 02/21/19 09:15 84 16 104/67 (79) 100 02/21/19 09:00 104/69 02/21/19 09:00 86 16 104/69 (81) 93 02/21/19 08:30 87 16 99/67 (78) 100 02/21/19 08:00 Mechanical Ventilator Mechanical Ventilator 02/21/19 08:00 102/59 02/21/19 08:00 60 02/21/19 08:00 97.7 87 16 102/59 (73) 100 02/21/19 08:00 86 02/21/19 07:49 102/61 02/21/19 07:34 88 16 60 02/21/19 07:30 88 16 103/67 (79) 100 02/21/19 07:00 102/65 02/21/19 07:00 89 16 102/65 (77) 100 02/21/19 06:45 90 16 100/67 (78) 99 02/21/19 06:30 90 16 102/63 (76) 99 02/21/19 06:15 89 16 102/64 (77) 99 02/21/19 06:00 89 16 96/66 (76) 100 02/21/19 06:00 100/67 02/21/19 05:45 89 16 96/62 (73) 99 02/21/19 05:30 89 16 60 02/21/19 05:30 88 16 97/64 (75) 96 02/21/19 05:15 88 16 90/62 (71) 99 02/21/19 05:00 96/62 02/21/19 05:00 89 16 94/59 (71) 99 02/21/19 04:47 89 16 90/58 (69) 99 02/21/19 04:45 89 16 89/56 (67) 99 02/21/19 04:30 90 16 90/56 (67) 100 02/21/19 04:15 97.8 91 17 91/57 (68) 100 02/21/19 04:00 95 24 97/57 (70) 93 02/21/19 04:00 60 02/21/19 04:00 97/57 02/21/19 04:00 Mechanical Ventilator 60.0 Mechanical Ventilator 02/21/19 04:00 95 02/21/19 03:45 93 16 98/59 (72) 100 02/21/19 03:30 94 17 92/62 (72) 100 02/21/19 03:15 96 16 101/69 (80) 100 02/21/19 03:05 95 16 60 02/21/19 03:00 94 15 101/62 (75) 99 02/21/19 03:00 101/69 02/21/19 02:45 94 16 95/61 (72) 100 02/21/19 02:40 96/55 02/21/19 02:30 97 16 101/63 (76) 98 02/21/19 02:15 94 16 100/57 (71) 97 02/21/19 02:00 100/57 02/21/19 02:00 96 16 105/66 (79) 100 02/21/19 01:45 96 16 102/72 (82) 100 02/21/19 01:31 98 16 60 02/21/19 01:30 100 20 109/64 (79) 95 02/21/19 01:15 99 16 106/69 (81) 100 02/21/19 01:00 103/57 02/21/19 01:00 98 18 103/57 (72) 100 02/21/19 00:45 99 19 101/65 (77) 99 02/21/19 00:30 100 19 99/67 (78) 100 02/21/19 00:15 100 18 102/68 (79) 99 02/21/19 00:00 102 18 105/69 (81) 100 02/21/19 00:00 102/68 02/21/19 00:00 101 02/21/19 00:00 Mechanical Ventilator 60.0 Mechanical Ventilator 02/20/19 23:45 101 17 101/64 (76) 98 02/20/19 23:30 101 17 101/63 (76) 99 02/20/19 23:23 109 21 60 02/20/19 23:15 103 18 98/65 (76) 100 02/20/19 23:00 98/65 02/20/19 23:00 103 20 97/60 (72) 95 02/20/19 22:45 102 102/60 02/20/19 22:45 103 17 98/59 (72) 100 02/20/19 22:32 102 15 102/60 (74) 99 02/20/19 22:30 103 17 85/50 (62) 99 02/20/19 22:15 105 18 99/57 (71) 99 02/20/19 22:00 105 18 97/60 (72) 99 02/20/19 22:00 97/60 02/20/19 21:47 96/61 02/20/19 21:45 106 18 96/61 (73) 100 02/20/19 21:30 106 19 97/66 (76) 100 02/20/19 21:30 105 23 60 02/20/19 21:15 103 17 94/55 (68) 99 02/20/19 21:00 98.6 107 19 95/56 (69) 99 02/20/19 21:00 95/56 02/20/19 20:45 107 18 96/58 (71) 99 02/20/19 20:30 106 19 99/62 (74) 99 02/20/19 20:15 106 18 95/62 (73) 99 02/20/19 20:00 107 02/20/19 20:00 96/59 02/20/19 20:00 Mechanical Ventilator 60.0 Mechanical Ventilator 02/20/19 20:00 106 18 96/59 (71) 99 02/20/19 20:00 60 02/20/19 19:45 107 18 102/60 (74) 100 02/20/19 19:30 108 19 93/57 (69) 100 02/20/19 19:30 106 19 60 02/20/19 19:15 108 18 92/63 (73) 100 02/20/19 19:00 109 20 95/62 (73) 100 02/20/19 19:00 95/62 02/20/19 18:45 108 18 99/62 (74) 100 02/20/19 18:30 107 19 95/60 (72) 100 02/20/19 18:15 108 21 94/64 (74) 100 02/20/19 18:00 90/61 02/20/19 18:00 107 19 94/67 (76) 99 02/20/19 17:52 99/52 02/20/19 17:51 108 99/52 02/20/19 17:45 108 19 99/52 (68) 99 02/20/19 17:35 108 19 60 02/20/19 17:30 107 21 106/59 (75) 99 02/20/19 17:15 108 17 96/66 (76) 99 02/20/19 17:00 108 21 90/61 (71) 99 02/20/19 17:00 90/61 02/20/19 16:30 109 21 98/61 (73) 99 02/20/19 16:00 60 02/20/19 16:00 97/58 02/20/19 16:00 Mechanical Ventilator 60.0 Mechanical Ventilator 02/20/19 16:00 108 02/20/19 16:00 98.6 110 22 97/58 (71) 98 02/20/19 15:30 108 21 95/59 (71) 99 02/20/19 15:20 109 21 60 02/20/19 15:00 108 19 95/57 (70) 99 02/20/19 15:00 94/67 02/20/19 14:30 109 20 92/65 (74) 99 02/20/19 14:00 94/69 02/20/19 14:00 110 21 94/69 (77) 99 02/20/19 13:33 108 21 60 02/20/19 13:30 108 21 97/62 (74) 98 Intake and Output 02/20/19 02/21/19 19:00 07:00 Intake Total 3848.166 ml 2447.000 ml Output Total 505 ml 2580 ml Balance 3343.166 ml -133.000 ml Free Water 30 ml IV Total 3768.166 ml 2447.000 ml Other 50 ml Output Urine Total 505 ml 2580 ml Laboratory Tests 02/20/19 14:10: Lactic Acid Level 2.60H 02/20/19 16:35: Lactic Acid Level 3.20H 02/20/19 21:45: Lactic Acid Level 2.60H 02/20/19 23:45: Lactic Acid Level 2.50H 02/21/19 03:15: White Blood Count 17.6H, Red Blood Count 2.85L, Hemoglobin 8.1L, Hematocrit 25.1L, Mean Corpuscular Volume 88, Mean Corpuscular Hemoglobin 28.5, Mean Corpuscular Hemoglobin Concent 32.3, Red Cell Distribution Width 15.7H, Platelet Count 87L, Mean Platelet Volume 7.3, Neutrophils (%) (Auto) , Lymphocytes (%) (Auto) , Monocytes (%) (Auto) , Eosinophils (%) (Auto) , Basophils (%) (Auto) , Differential Total Cells Counted 100, Neutrophils % ( Manual) 90H, Lymphocytes % (Manual) 8L, Monocytes % (Manual) 2, Eosinophils % ( Manual) 0, Basophils % (Manual) 0, Band Neutrophils 0, Platelet Estimate DecreasedL, Platelet Morphology Normal, Hypochromasia 2+, Anisocytosis 1+, Sodium Level 136, Potassium Level 5.4H, Chloride Level 104, Carbon Dioxide Level 23, Anion Gap 9, Blood Urea Nitrogen 52H, Creatinine 0.9, Estimat Glomerular Filtration Rate > 60, Glucose Level 229H, Hemoglobin A1c 6.2H, Uric Acid 6.3, Calcium Level 8.0L, Phosphorus Level 4.4, Magnesium Level 1.9, Iron Level 92, Total Iron Binding Capacity 205L, Percent Iron Saturation 45, Unsaturated Iron Binding 113, Ferritin 235, Total Bilirubin 0.3, Gamma Glutamyl Transpeptidase 307H, Aspartate Amino Transf (AST/SGOT) 77H, Alanine Aminotransferase (ALT/SGPT) 49, Alkaline Phosphatase 338H, Ammonia 41H, Total Creatine Kinase 42, Troponin I 0.000, C-Reactive Protein, Quantitative 23.1H, Pro-B-Type Natriuretic Peptide 6242H, Total Protein 5.7L, Albumin 1.6L, Globulin 4.1, Albumin/Globulin Ratio 0.4L, Triglycerides Level 25L, Cholesterol Level 73, LDL Cholesterol 27, HDL Cholesterol 33L, Cholesterol/HDL Ratio 2.2L, Vitamin B12 Level > 2000H, Folate 11.6, Thyroid Stimulating Hormone (TSH) 3.798H 02/21/19 08:10: Lactic Acid Level 2.30H, Vancomycin Level Trough 34.1H Height (Feet): 5 Height (Inches): 6.00 Weight (Pounds): 194 General Appearance: no apparent distress Cardiovascular: tachycardia Respiratory/Chest: decreased breath sounds Abdomen: distended Sergey Rivera MD Feb 21, 2019 13:19
[2019-02-21] MEDS ORDERED: Sodium Polystyrene Sulfonate 15gm Powder ORAL SCH (13:30)
--- NOTE | 2019-02-21 18:52 | Consultation ---
History of Present Illness General Date patient seen: Feb 21, 2019 Chief Complaint: Dyspnea/Respdistress Reason for Consultation: Sepsis Present Illness HPI This is a 64-year-old male with multiple medical communities who is well-known to me from prior admissions and care plan who presented to [facility] emergency department from residential with respiratory distress and shortness of breath. Patient with tracheostomy on vent support admitted to the intensive care unit for care and management. Currently in the ICU on 2 pressors with guarded condition. Patient has extensive wounds which have been cared for for some time but progressively worsening at times. Surgery called to evaluate and assist with care. Patient seen, patient evaluated, chart reviewed. Allergies: Coded Allergies: OXYTETRACYCLINE (Unverified Allergy, Unknown, 09/05/13) PENICILLINS (Unverified Allergy, Unknown, 06/11/17) Tolerated one dose of Cefepime 06/07/17 Tolerated Cefdinir 06/10/17 Uncoded Allergies: PLASTIC TAPE (Allergy, Mild, ITCHINESS, 08/08/15) MEDICAL TAPE (Allergy, Unknown, 12/10/16) Medication History Scheduled Albuterol Sulfate* (Albuterol Sulfate Hhn*), 3 ML INH Q6H, (Reported) Ascorbic Acid* (Ascorbic Acid*), 500 MG ORAL DAILY, (Reported) Atorvastatin Calcium* (Atorvastatin Calcium*), 10 MG GT BEDTIME, (Reported) Cholecalciferol (Vitamin D3)* (Vitamin D*), 5,000 UNIT GT DAILY, (Reported) Docusate Sodium* (Docusate Sodium*), 100 MG GT DAILY, (Reported) Ferrous Sulfate* (Ferrous Sulfate*), 325 MG ORAL DAILY, (Reported) Heparin Sod (Porcine) (Heparin Sodium*), 5,000 UNITS SUBQ EVERY 12 HOURS, ( Reported) Midodrine* (Proamatine*), 2.5 MG ORAL THREE TIMES A DAY, (Reported) Polyethylene Glycol 3350* (Miralax*), 17 GM GT DAILY, (Reported) Tamsulosin HCl (Flomax), 0.4 MG ORAL DAILY, (Reported) Zinc Sulfate (Zinc Sulfate*), 220 MG ORAL DAILY, (Reported) Scheduled PRN Acetaminophen (Acetaminophen), 650 MG ORAL Q4HR PRN for Prn Headache/Temp > 101, (Reported) Hydrocodone/Acetaminophen (Hydrocodon-Acetaminophn 10-325), 1 TAB ORAL EVERY 12 HOURS PRN for For Pain, (Reported) Ondansetron (Zofran), 4 MG GT Q6H PRN for Nausea & Vomiting, (Reported) Miscellaneous Medications Insulin Lispro (Humalog), 0 SUBQ, (Reported) Vit D3/Folic Acid/B2/B6/B12 (Folgard Tablet), 1 EACH GT, (Reported) Patient History Limited by: medical condition History Provided By: Medical Record, PMD Healthcare decision maker unk Resuscitation status Full Code Advanced Directive on File No Past Medical/Surgical History Past Medical/Surgical History: (1) Pleural effusion (2) History of CVA (cerebrovascular accident) (3) Sepsis (4) Chronic respiratory failure (5) Bowel obstruction (6) Fungemia (7) Obstructive uropathy (8) Gram-negative bacteremia (9) Collapse of right lung (10) Malfunction of gastrostomy tube (11) Acute and chronic respiratory failure (12) Chronic respiratory failure (13) Feeding by G-tube (14) UTI (urinary tract infection) (15) Septic shock (16) Severe sepsis (17) Gastrointestinal hemorrhage (18) Vegetative state (19) HTN (hypertension) (20) Ventilator dependence (21) Hyperkalemia Review of Systems ROS Narrative Unable to obtain given patient's current medical condition Physical Exam General Appearance: moderate distress Lines, tubes and drains: central line, trach Neck: trach Respiratory/Chest: decreased breath sounds, on vent Cardiovascular/Chest: tachycardia Abdomen: soft, feeding tube, other Extremities: inflammation, slow capillary refill Skin Exam: other Neurologic: unresponsiveness Last 24 Hour Vital Signs Date Time Temp Pulse Resp B/P (MAP) Pulse Ox O2 Delivery O2 Flow Rate FiO2 02/21/19 18:30 85 16 125/86 (99) 100 02/21/19 18:25 98/54 02/21/19 18:00 98/54 02/21/19 18:00 89 14 123/85 (98) 99 02/21/19 17:30 82 16 120/77 (91) 99 02/21/19 17:05 82 16 50 02/21/19 17:00 82 16 119/80 (93) 98 02/21/19 17:00 118/79 02/21/19 16:30 81 16 116/69 (85) 97 02/21/19 16:00 98.3 82 16 117/80 (92) 97 02/21/19 16:00 Mechanical Ventilator Mechanical Ventilator 02/21/19 16:00 88 02/21/19 16:00 117/77 02/21/19 15:33 50 02/21/19 15:30 80 14 118/79 (92) 98 02/21/19 15:30 80 21 50 02/21/19 15:00 81 16 114/80 (91) 99 02/21/19 15:00 114/80 02/21/19 14:30 83 15 116/79 (91) 100 02/21/19 14:15 84 15 121/79 (93) 100 02/21/19 14:00 121/79 02/21/19 14:00 84 16 120/78 (92) 100 02/21/19 13:45 85 15 117/77 (90) 100 02/21/19 13:30 87 16 115/67 (83) 100 02/21/19 13:15 87 16 114/75 (88) 100 02/21/19 13:04 89/65 02/21/19 13:00 88 17 89/65 (73) 100 02/21/19 12:45 91 18 101/75 (84) 92 02/21/19 12:30 90 18 103/61 (75) 98 02/21/19 12:15 90 22 112/71 (85) 93 02/21/19 12:00 81 02/21/19 12:00 98.1 86 16 109/74 (86) 100 02/21/19 12:00 Mechanical Ventilator Mechanical Ventilator 02/21/19 12:00 112/71 02/21/19 12:00 60 02/21/19 11:45 87 16 111/71 (84) 100 02/21/19 11:30 87 15 109/74 (86) 99 02/21/19 11:20 87 16 60 02/21/19 11:15 83 16 104/66 (79) 99 02/21/19 11:00 82 16 104/66 (79) 99 02/21/19 11:00 104/66 02/21/19 10:30 84 16 104/69 (81) 99 02/21/19 10:22 84 104/68 02/21/19 10:00 103/63 02/21/19 10:00 85 16 103/63 (76) 100 02/21/19 09:30 85 16 103/62 (76) 100 02/21/19 09:19 85 16 60 02/21/19 09:15 84 16 104/67 (79) 100 02/21/19 09:00 104/69 02/21/19 09:00 86 16 104/69 (81) 93 02/21/19 08:30 87 16 99/67 (78) 100 02/21/19 08:00 Mechanical Ventilator Mechanical Ventilator 02/21/19 08:00 102/59 02/21/19 08:00 60 02/21/19 08:00 97.7 87 16 102/59 (73) 100 02/21/19 08:00 86 02/21/19 07:49 102/61 02/21/19 07:34 88 16 60 02/21/19 07:30 88 16 103/67 (79) 100 02/21/19 07:00 102/65 02/21/19 07:00 89 16 102/65 (77) 100 02/21/19 06:45 90 16 100/67 (78) 99 02/21/19 06:30 90 16 102/63 (76) 99 02/21/19 06:15 89 16 102/64 (77) 99 02/21/19 06:00 89 16 96/66 (76) 100 02/21/19 06:00 100/67 02/21/19 05:45 89 16 96/62 (73) 99 02/21/19 05:30 89 16 60 02/21/19 05:30 88 16 97/64 (75) 96 02/21/19 05:15 88 16 90/62 (71) 99 02/21/19 05:00 96/62 02/21/19 05:00 89 16 94/59 (71) 99 02/21/19 04:47 89 16 90/58 (69) 99 02/21/19 04:45 89 16 89/56 (67) 99 02/21/19 04:30 90 16 90/56 (67) 100 02/21/19 04:15 97.8 91 17 91/57 (68) 100 02/21/19 04:00 95 24 97/57 (70) 93 02/21/19 04:00 60 02/21/19 04:00 97/57 02/21/19 04:00 Mechanical Ventilator 60.0 Mechanical Ventilator 02/21/19 04:00 95 02/21/19 03:45 93 16 98/59 (72) 100 02/21/19 03:30 94 17 92/62 (72) 100 02/21/19 03:15 96 16 101/69 (80) 100 02/21/19 03:05 95 16 60 02/21/19 03:00 94 15 101/62 (75) 99 02/21/19 03:00 101/69 02/21/19 02:45 94 16 95/61 (72) 100 02/21/19 02:40 96/55 02/21/19 02:30 97 16 101/63 (76) 98 02/21/19 02:15 94 16 100/57 (71) 97 02/21/19 02:00 100/57 02/21/19 02:00 96 16 105/66 (79) 100 02/21/19 01:45 96 16 102/72 (82) 100 02/21/19 01:31 98 16 60 02/21/19 01:30 100 20 109/64 (79) 95 02/21/19 01:15 99 16 106/69 (81) 100 02/21/19 01:00 103/57 02/21/19 01:00 98 18 103/57 (72) 100 02/21/19 00:45 99 19 101/65 (77) 99 02/21/19 00:30 100 19 99/67 (78) 100 02/21/19 00:15 100 18 102/68 (79) 99 02/21/19 00:00 102 18 105/69 (81) 100 02/21/19 00:00 102/68 02/21/19 00:00 101 02/21/19 00:00 Mechanical Ventilator 60.0 Mechanical Ventilator 02/20/19 23:45 101 17 101/64 (76) 98 02/20/19 23:30 101 17 101/63 (76) 99 02/20/19 23:23 109 21 60 02/20/19 23:15 103 18 98/65 (76) 100 02/20/19 23:00 98/65 02/20/19 23:00 103 20 97/60 (72) 95 02/20/19 22:45 102 102/60 02/20/19 22:45 103 17 98/59 (72) 100 02/20/19 22:32 102 15 102/60 (74) 99 02/20/19 22:30 103 17 85/50 (62) 99 02/20/19 22:15 105 18 99/57 (71) 99 02/20/19 22:00 105 18 97/60 (72) 99 02/20/19 22:00 97/60 02/20/19 21:47 96/61 02/20/19 21:45 106 18 96/61 (73) 100 02/20/19 21:30 106 19 97/66 (76) 100 02/20/19 21:30 105 23 60 02/20/19 21:15 103 17 94/55 (68) 99 02/20/19 21:00 98.6 107 19 95/56 (69) 99 02/20/19 21:00 95/56 02/20/19 20:45 107 18 96/58 (71) 99 02/20/19 20:30 106 19 99/62 (74) 99 02/20/19 20:15 106 18 95/62 (73) 99 02/20/19 20:00 107 02/20/19 20:00 96/59 02/20/19 20:00 Mechanical Ventilator 60.0 Mechanical Ventilator 02/20/19 20:00 106 18 96/59 (71) 99 02/20/19 20:00 60 02/20/19 19:45 107 18 102/60 (74) 100 02/20/19 19:30 108 19 93/57 (69) 100 02/20/19 19:30 106 19 60 02/20/19 19:15 108 18 92/63 (73) 100 02/20/19 19:00 109 20 95/62 (73) 100 02/20/19 19:00 95/62 Intake and Output 02/20/19 02/21/19 19:00 07:00 Intake Total 3848.166 ml 2447.000 ml Output Total 505 ml 2580 ml Balance 3343.166 ml -133.000 ml Free Water 30 ml IV Total 3768.166 ml 2447.000 ml Other 50 ml Output Urine Total 505 ml 2580 ml Laboratory Tests Test 02/20/19 21:45 02/20/19 23:45 02/21/19 03:15 02/21/19 08:10 Lactic Acid Level 2.60 mmol/L (0.4-2.0) H 2.50 mmol/L (0.66-2.22) H 2.30 mmol/L (0.4-2.0) H White Blood Count 17.6 K/UL (4.8-10.8) H Red Blood Count 2.85 M/UL (4.70-6.10) L Hemoglobin 8.1 G/DL (14.2-18.0) L Hematocrit 25.1 % (42.0-52.0) L Mean Corpuscular Volume 88 FL (80-99) Mean Corpuscular Hemoglobin 28.5 PG (27.0-31.0) Mean Corpuscular Hemoglobin Concent 32.3 G/DL (32.0-36.0) Red Cell Distribution Width 15.7 % (11.6-14.8) H Platelet Count 87 K/UL (150-450) L Mean Platelet Volume 7.3 FL (6.5-10.1) Neutrophils (%) (Auto) % (45.0-75.0) Lymphocytes (%) (Auto) % (20.0-45.0) Monocytes (%) (Auto) % (1.0-10.0) Eosinophils (%) (Auto) % (0.0-3.0) Basophils (%) (Auto) % (0.0-2.0) Differential Total Cells Counted 100 Neutrophils % (Manual) 90 % (45-75) H Lymphocytes % (Manual) 8 % (20-45) L Monocytes % (Manual) 2 % (1-10) Eosinophils % (Manual) 0 % (0-3) Basophils % (Manual) 0 % (0-2) Band Neutrophils 0 % (0-8) Platelet Estimate Decreased L Platelet Morphology Normal Hypochromasia 2+ Anisocytosis 1+ Sodium Level 136 MMOL/L (136-145) Potassium Level 5.4 MMOL/L (3.5-5.1) H Chloride Level 104 MMOL/L (98-107) Carbon Dioxide Level 23 MMOL/L (21-32) Anion Gap 9 mmol/L (5-15) Blood Urea Nitrogen 52 mg/dL (7-18) H Creatinine 0.9 MG/DL (0.55-1.30) Estimat Glomerular Filtration Rate > 60 mL/min (>60) Glucose Level 229 MG/DL (74-106) H Hemoglobin A1c 6.2 % (4.3-6.0) H Uric Acid 6.3 MG/DL (2.6-7.2) Calcium Level 8.0 MG/DL (8.5-10.1) L Phosphorus Level 4.4 MG/DL (2.5-4.9) Magnesium Level 1.9 MG/DL (1.8-2.4) Iron Level 92 ug/dL (50-175) Total Iron Binding Capacity 205 ug/dL (250-450) L Percent Iron Saturation 45 % (15-50) Unsaturated Iron Binding 113 ug/dL (112-346) Ferritin 235 NG/ML (8-388) Total Bilirubin 0.3 MG/DL (0.2-1.0) Gamma Glutamyl Transpeptidase 307 U/L (5-85) H Aspartate Amino Transf (AST/SGOT) 77 U/L (15-37) H Alanine Aminotransferase (ALT/SGPT) 49 U/L (12-78) Alkaline Phosphatase 338 U/L (46-116) H Ammonia 41 umol/L (11-32) H Total Creatine Kinase 42 U/L (26-308) Troponin I 0.000 ng/mL (0.000-0.056) C-Reactive Protein, Quantitative 23.1 mg/dL (0.00-0.90) H Pro-B-Type Natriuretic Peptide 6242 pg/mL (0-125) H Total Protein 5.7 G/DL (6.4-8.2) L Albumin 1.6 G/DL (3.4-5.0) L Globulin 4.1 g/dL Albumin/Globulin Ratio 0.4 (1.0-2.7) L Triglycerides Level 25 MG/DL (30-150) L Cholesterol Level 73 MG/DL (< 200) LDL Cholesterol 27 mg/dL (<100) HDL Cholesterol 33 MG/DL (40-60) L Cholesterol/HDL Ratio 2.2 (3.3-4.4) L Vitamin B12 Level > 2000 PG/ML (193-986) H Folate 11.6 NG/ML (8.6-58.9) Thyroid Stimulating Hormone (TSH) 3.798 uiU/mL (0.358-3.740) Vancomycin Level Trough 34.1 ug/mL (5.0-12.0) H Test 02/21/19 14:10 Lactic Acid Level 2.60 mmol/L (0.4-2.0) H Height (Feet): 5 Height (Inches): 6.00 Weight (Pounds): 194 Medications Current Medications Medications (Trade) Dose Ordered Sig/Sima Route PRN Reason Start Time Stop Time Status Last Admin Dose Admin Acetaminophen (Tylenol) 650 mg Q4H PRN ORAL T>100.5 02/19/19 19:45 03/21/19 19:44 Albuterol/ Ipratropium (Albuterol/ Ipratropium) 3 ml Q4H PRN HHN Shortness of Breath 02/19/19 19:45 02/24/19 19:44 Chlorhexidine Gluconate (Paulina-Hex 2%) 1 applic DAILY@2000 TOPIC 02/21/19 20:00 03/23/19 19:59 Dextrose (Dextrose 50%) 25 ml Q30M PRN IV Hypoglycemia 02/19/19 20:15 03/21/19 20:14 Dextrose (Dextrose 50%) 50 ml Q30M PRN IV Hypoglycemia 02/19/19 20:15 03/21/19 20:14 Heparin Sodium (Porcine) (Heparin 5000 units/ml) 5,000 units EVERY 12 HOURS SUBQ 02/19/19 21:00 03/21/19 20:59 02/20/19 20:55 Hydrocortisone (Solu-CORTEF) 100 mg EVERY 8 HOURS IV 02/20/19 09:00 03/22/19 08:59 02/21/19 13:32 Insulin Aspart (NovoLOG) BEFORE MEALS AND HS SUBQ 02/19/19 21:30 03/21/19 21:29 02/21/19 16:53 Lorazepam (Ativan 2mg/ml 1ml) 2 mg Q2H PRN IV For Anxiety 02/19/19 19:45 02/26/19 19:44 Meropenem 1 gm/ Sodium Chloride 55 ml @ 110 mls/hr Q8HR IVPB 02/20/19 14:00 02/25/19 13:59 02/21/19 13:26 Norepinephrine Bitartrate 8 mg/ Dextrose 500 ml @ 0 mls/hr Q24H IV 02/19/19 23:00 03/21/19 22:59 02/21/19 18:25 Ondansetron HCl (Zofran) 4 mg Q6H PRN IVP Nausea & Vomiting 02/19/19 19:45 03/21/19 19:44 Pantoprazole (Protonix) 40 mg Q12HR IVP 02/20/19 09:00 03/22/19 08:59 02/21/19 09:11 Phenylephrine HCl 50 mg/Dextrose 250 ml @ 0 mls/hr Q24H IV 02/20/19 07:30 03/22/19 07:29 02/21/19 10:22 Polyethylene Glycol (Miralax) 17 gm DAILYPRN PRN ORAL Constipation 02/19/19 19:45 03/21/19 19:44 Sodium Chloride 1,000 ml @ 50 mls/hr Q20H IV 02/20/19 16:00 03/22/19 15:59 02/21/19 05:34 Vancomycin HCl (Vanco rx to dose) 1 ea DAILY PRN MISC . 02/19/19 20:15 03/21/19 20:14 Assessment/Plan Problem List: (1) Decubitus skin ulcer Assessment & Plan: Patient presented on admission with generalized edemae, multiple pressure injuries and contractures. Pt weeping large amt serous exudate from both upper and both lower ext. Penis and scrotum are edematous and weeping serous exudate. Partially opened serous blister lateral R elbow oozing moderate amt serous exudate. Full thickness pressure injury L elbow. Base of wound has 90% fibrinous slough with surrounding erythematous and macerated borders.(L)1.5cm x (W)1.5cm. Pt weeping from skin folds of abdomen and bilat groin. SKin folds are erythematous and macerated. Sacrum, R and L buttocks extending into both ischial tuberosities erythematous and macerated and is malodorous. Full thickness stage 4 pressure injury Sacrum. Base of wound beefy red with scattered Biofilm. Borders are macerated and indurated.Moderate amt serous exudate noted. Wound is malodorous.(L)9.3cm x (W)3.3cm x (D)0.3cm.Periwound skin is macerated. Full thickness stage 4 pressure injury L buttocks. Base of wound has 25% slough, 75% moist and viable. Borders are macerated with surrounding macerated skin. moderate amt serous exudate.Wound is malodorous.(L)0.8cm x (W)4.6cm x (D)0.2cm. Second pressure injury lower L buttocks with small amt Biofilm at base of wound.Borders are macerated (L)1.5cm x (W)4cm. Full thickness stage 3 pressure injury R buttocks. Base of wound moist, viable with trace amt of slough.(L)1.5cm x (W)1.7cm x (D)0.2cm. Full thickness stage 4 pressure injury R Ischium.Base of wound has 100% fibrinous slough with erythematous and macerated borders. Small amt seropurulent exudate noted.(L)1.5cm x (W)2cm. Full thickness stage 3 pressure injury noted to scrotum. Alvan granulation with small amt of slough. Moderate amt serous exudate noted.(L)6.2cm x (W)1.8cm. Periwound scrotum is macerated.At very base of scrotum is small wound (L)0.6cm x (W)1.5cm. Base of wound is 50% beefy red,50% slough and moist oozing moderate amt sanguineous exudate. At the left of base of scrotum. Full thickness wound noted. Base of wound is beefy red and moist oozing moderate amt serous exudate. Borders are macerated.(L)2.5cm x (W)3.5cm. Unstageaqble pressure injury R heel that is malodorous. 100% soft necrosis at base of wound with semi- detached, erythematous and macerated borders.(L)3.9cm x (W)3.5cm Periwound is fluctuant and erythematous. Two additional pressure injuries lateral R heel in close proximity:#1 (L)0.8cm x (W)1cm. Base of wound is 100% soft necrosis.#2(L)0.7cm x (W)0.9cm. Base of wound is 100% soft necrosis. Wound Dorsal R 4th metatarsal that is 100%soft necrosis at base.(L)0.9cm x (W) 0.5cm. Wound dorso/lateral aspect of R 5th metatarsal that is 100% soft necrosis , erythematous margins.(L)3.8cm x (W)1cm. Ulcer noted in Web space of of R 4th and 5th metatarsals. Wound has 90% fibrinous slough and is malodorous.Smal amt seropurulent exudate noted. Full thickness ulcer Plantar R foot at base of 4th and 5th metatarsals. Base of wound 75% beefy granulation,25% slough. Borders are macerated. Small amt serous exudate noted (L)1.3cm x (W)3.6cm. Partial thickness wound lateral R foot.Base of wound is moist and viable .Small amt serous exudate noted.(L)0.6cm x (W)0.8cm. Full thickness wound noted to dorsal L foot. Base of wound 75% fibrinous slough , 25% batsheva.(L)1.5cm x (W)1cm. Periwound is macerated. Unstageable pressure injury lateral L heel. Base of wound is 90% necrotic, 10% batsheva (L)1.5cm x (W)1.3cm. Wound is malodorous. An area that is fluctuant with non-blanchable erythema noted to lateral /medial L foot.(L)3cm x (W)4cm. An area that is fluctuant with non-blanchable erythema noted to distal/lateral L foot.(L)2.5cm x (W)4cm. Tx.Plan: Cleanse Skin folds of abd and groin. Pat dry. Apply Moisture Barrier Paste to skin folds Twice daily. Place ABD Pads to R and L groin. Cleanse wounds R and L elbows with Saline. Apply TheraHoney. Apply Cavilon Skin Barrier Periwound. Cover with Optifoam drsg. Change Daily and prn. Cleanse Sacral wound with Saline. Apply Therahoney. Apply Moisture Barrier Paste periwound.Cover with Optifoam Drsg.Change Daily and prn. Cleanse wounds R buttocks and R ischium with Saline. Apply Therahoney. Apply Moisture Barrier Paste periwound. Cover with Optifoam drsg. Change Daily and prn. Apply Moisture Barrier paste to L buttocks and macerated areas with each incontinence care. Place OPEN Diaper under pt for moisture Absorption and change prn. Swab wounds L heel, Dorsal and Lateral L foot with Betadine. Cover with ABD pads and wrap With Kerlix Daily andprn. Apply Betadine to R 4th and5th metatarsals,including web spaces of 4th and 5th metatarsals. Separate toes with Gauze. Cover with ABd pads and wrap with Kerlix. Swab wound Plantar R foot ,R heel and Lateral R heel with Betadine.Cover with ABD pad and wrap with Kerlix Daily and prn. APM/RENETTA Mattress overlay. Reposition at least every 2hours or as tolerated. Place pillow behind knees to off-load heels. ICD Codes: L89.90 - Pressure ulcer of unspecified site, unspecified stage SNOMED: 189244696 (2) Sepsis Assessment & Plan: Leukocytosis, anemia, lactic acidosis, abnormal labs Septic in ICU on 2 pressors Ill-appearing DNR/DNI Prognosis guarded Continue with IV antibiotics Continue with fluids Trend labs Wound care as below Will follow with recommendations Thank you for let me participate in patient's care ICD Codes: A41.9 - Sepsis SNOMED: 84690691 (3) Feeding by G-tube Assessment & Plan: vDAILY ESTIMATED NEEDS: Needs based on Critical Care, wounds, 66kg 22-30 kcals/kg 6240-9803 total kcals 1.25-2 g protein/kg 83-132 g total protein 25-30 mL/kg 4558-1247 total fluid mLs NUTRITION DIAGNOSIS: 1) Increased kcal/prot needs R/T wound healing and sepsis as evidenced by pt admitted w/ multiple wounds, eval pending, elevated WBC (17.6 trending down from critical levels), elevated BG, hypothermic on adm, on pressor support. 2) Swallowing difficulty R/T respiratory status as evidenced by pt vent dep via trach, PEG dep, NPO at this time. CURRENT TF:NPO ENTERAL NUTRITION RECOMMENDATIONS: Vital AF 1.2 @55ml x24 hrs to provide 1320ml, 1584kcal, 99g prot, 1071ml free H20 * As medically able w/ hemodynamic stability, rec GT feeds of Vital 1.2. * Start @15ml/hr for 6 hrs, advance as tolerated 10ml/hr q4-6 hrs to goal. * HOB >30 degrees/ water flushes per MD ADDITIONAL RECOMMENDATIONS: 1) Maintain calibrated bedscale weights: SNF wt 176# vs EMR wt 194# 2) Wound care w/ TF order: add Darryl 1pkt BID + Vit C 250mg daily F/up w/ WC eval 3) Feed w/ hemodynamic stability/ otherwise trophic feeds of 5-10ml/hr 4) Trend K (5.4); need for renal formula . ICD Codes: Z93.1 - Feeding by G-tube SNOMED: [id number] Jimmy Tang Feb 21, 2019 18:52
--- NOTE | 2019-02-21 19:16 | Internal Med Progress Note ---
Subjective Date of Service: Feb 21, 2019 Physician Name Samuel Caballero Attending Physician Aron Peañ MD Current Medications Medications (Trade) Dose Ordered Sig/Sima Route PRN Reason Start Time Stop Time Status Last Admin Dose Admin Acetaminophen (Tylenol) 650 mg Q4H PRN ORAL T>100.5 02/19/19 19:45 03/21/19 19:44 Albuterol/ Ipratropium (Albuterol/ Ipratropium) 3 ml Q4H PRN HHN Shortness of Breath 02/19/19 19:45 02/24/19 19:44 Ascorbic Acid (Vitamin C) 250 mg DAILY GT 02/22/19 09:00 03/24/19 08:59 Chlorhexidine Gluconate (Paulina-Hex 2%) 1 applic DAILY@2000 TOPIC 02/21/19 20:00 03/23/19 19:59 Dextrose (Dextrose 50%) 25 ml Q30M PRN IV Hypoglycemia 02/19/19 20:15 03/21/19 20:14 Dextrose (Dextrose 50%) 50 ml Q30M PRN IV Hypoglycemia 02/19/19 20:15 03/21/19 20:14 Heparin Sodium (Porcine) (Heparin 5000 units/ml) 5,000 units EVERY 12 HOURS SUBQ 02/19/19 21:00 03/21/19 20:59 02/20/19 20:55 Hydrocortisone (Solu-CORTEF) 100 mg EVERY 8 HOURS IV 02/20/19 09:00 03/22/19 08:59 02/21/19 13:32 Insulin Aspart (NovoLOG) BEFORE MEALS AND HS SUBQ 02/19/19 21:30 03/21/19 21:29 02/21/19 16:53 Lorazepam (Ativan 2mg/ml 1ml) 2 mg Q2H PRN IV For Anxiety 02/19/19 19:45 02/26/19 19:44 Meropenem 1 gm/ Sodium Chloride 55 ml @ 110 mls/hr Q8HR IVPB 02/20/19 14:00 02/25/19 13:59 02/21/19 13:26 Norepinephrine Bitartrate 8 mg/ Dextrose 500 ml @ 0 mls/hr Q24H IV 02/19/19 23:00 03/21/19 22:59 02/21/19 18:25 Ondansetron HCl (Zofran) 4 mg Q6H PRN IVP Nausea & Vomiting 02/19/19 19:45 03/21/19 19:44 Pantoprazole (Protonix) 40 mg Q12HR IVP 02/20/19 09:00 03/22/19 08:59 02/21/19 09:11 Phenylephrine HCl 50 mg/Dextrose 250 ml @ 0 mls/hr Q24H IV 02/20/19 07:30 03/22/19 07:29 02/21/19 10:22 Polyethylene Glycol (Miralax) 17 gm DAILYPRN PRN ORAL Constipation 02/19/19 19:45 03/21/19 19:44 Sodium Chloride 1,000 ml @ 50 mls/hr Q20H IV 02/20/19 16:00 03/22/19 15:59 02/21/19 05:34 Vancomycin HCl (Vanco rx to dose) 1 ea DAILY PRN MISC . 02/19/19 20:15 03/21/19 20:14 Allergies: Coded Allergies: OXYTETRACYCLINE (Unverified Allergy, Unknown, 09/05/13) PENICILLINS (Unverified Allergy, Unknown, 06/11/17) Tolerated one dose of Cefepime 06/07/17 Tolerated Cefdinir 06/10/17 Uncoded Allergies: PLASTIC TAPE (Allergy, Mild, ITCHINESS, 08/08/15) MEDICAL TAPE (Allergy, Unknown, 12/10/16) ROS Limited/Unobtainable: Yes Subjective 64 YO M admitted with respiratory distress. Now respiratory failure and pneumonia. Intubated and sedated. Cover for Int Yuri-DR Peña. ICU Objective Last Vital Signs Date Time Temp Pulse Resp B/P (MAP) Pulse Ox O2 Delivery O2 Flow Rate FiO2 02/21/19 18:30 85 16 125/86 (99) 100 02/21/19 17:05 50 02/21/19 16:00 98.3 02/21/19 16:00 Mechanical Ventilator Mechanical Ventilator 02/21/19 04:00 60.0 General Appearance: WD/WN, moderate distress EENT: PERRL/EOMI, normal ENT inspection Neck: non-tender, normal alignment, supple, normal inspection Cardiovascular: normal peripheral pulses, normal rate, regular rhythm, no gallop/murmur, no JVD Respiratory/Chest: respiratory distress, crackles/rales, rhonchi - bilaterally , expiratory wheezing Abdomen: normal bowel sounds, non tender, soft, no organomegaly, no mass Extremities: normal inspection Edema: severe edema Skin: normal pigmentation, warm/dry Laboratory Tests Test 02/20/19 21:45 02/20/19 23:45 02/21/19 03:15 02/21/19 08:10 Lactic Acid Level 2.60 mmol/L (0.4-2.0) H 2.50 mmol/L (0.66-2.22) H 2.30 mmol/L (0.4-2.0) H White Blood Count 17.6 K/UL (4.8-10.8) H Red Blood Count 2.85 M/UL (4.70-6.10) L Hemoglobin 8.1 G/DL (14.2-18.0) L Hematocrit 25.1 % (42.0-52.0) L Mean Corpuscular Volume 88 FL (80-99) Mean Corpuscular Hemoglobin 28.5 PG (27.0-31.0) Mean Corpuscular Hemoglobin Concent 32.3 G/DL (32.0-36.0) Red Cell Distribution Width 15.7 % (11.6-14.8) H Platelet Count 87 K/UL (150-450) L Mean Platelet Volume 7.3 FL (6.5-10.1) Neutrophils (%) (Auto) % (45.0-75.0) Lymphocytes (%) (Auto) % (20.0-45.0) Monocytes (%) (Auto) % (1.0-10.0) Eosinophils (%) (Auto) % (0.0-3.0) Basophils (%) (Auto) % (0.0-2.0) Differential Total Cells Counted 100 Neutrophils % (Manual) 90 % (45-75) H Lymphocytes % (Manual) 8 % (20-45) L Monocytes % (Manual) 2 % (1-10) Eosinophils % (Manual) 0 % (0-3) Basophils % (Manual) 0 % (0-2) Band Neutrophils 0 % (0-8) Platelet Estimate Decreased L Platelet Morphology Normal Hypochromasia 2+ Anisocytosis 1+ Sodium Level 136 MMOL/L (136-145) Potassium Level 5.4 MMOL/L (3.5-5.1) H Chloride Level 104 MMOL/L (98-107) Carbon Dioxide Level 23 MMOL/L (21-32) Anion Gap 9 mmol/L (5-15) Blood Urea Nitrogen 52 mg/dL (7-18) H Creatinine 0.9 MG/DL (0.55-1.30) Estimat Glomerular Filtration Rate > 60 mL/min (>60) Glucose Level 229 MG/DL (74-106) H Hemoglobin A1c 6.2 % (4.3-6.0) H Uric Acid 6.3 MG/DL (2.6-7.2) Calcium Level 8.0 MG/DL (8.5-10.1) L Phosphorus Level 4.4 MG/DL (2.5-4.9) Magnesium Level 1.9 MG/DL (1.8-2.4) Iron Level 92 ug/dL (50-175) Total Iron Binding Capacity 205 ug/dL (250-450) L Percent Iron Saturation 45 % (15-50) Unsaturated Iron Binding 113 ug/dL (112-346) Ferritin 235 NG/ML (8-388) Total Bilirubin 0.3 MG/DL (0.2-1.0) Gamma Glutamyl Transpeptidase 307 U/L (5-85) H Aspartate Amino Transf (AST/SGOT) 77 U/L (15-37) H Alanine Aminotransferase (ALT/SGPT) 49 U/L (12-78) Alkaline Phosphatase 338 U/L (46-116) H Ammonia 41 umol/L (11-32) H Total Creatine Kinase 42 U/L (26-308) Troponin I 0.000 ng/mL (0.000-0.056) C-Reactive Protein, Quantitative 23.1 mg/dL (0.00-0.90) H Pro-B-Type Natriuretic Peptide 6242 pg/mL (0-125) H Total Protein 5.7 G/DL (6.4-8.2) L Albumin 1.6 G/DL (3.4-5.0) L Globulin 4.1 g/dL Albumin/Globulin Ratio 0.4 (1.0-2.7) L Triglycerides Level 25 MG/DL (30-150) L Cholesterol Level 73 MG/DL (< 200) LDL Cholesterol 27 mg/dL (<100) HDL Cholesterol 33 MG/DL (40-60) L Cholesterol/HDL Ratio 2.2 (3.3-4.4) L Vitamin B12 Level > 2000 PG/ML (193-986) H Folate 11.6 NG/ML (8.6-58.9) Thyroid Stimulating Hormone (TSH) 3.798 uiU/mL (0.358-3.740) Vancomycin Level Trough 34.1 ug/mL (5.0-12.0) H Test 02/21/19 14:10 Lactic Acid Level 2.60 mmol/L (0.4-2.0) H Microbiology Date/Time Source Procedure Growth Status 02/19/19 20:15 Blood Blood Culture - Preliminary Gram Negative Bacillus 1 Resulted 02/19/19 20:00 Blood Blood Culture - Preliminary NO GROWTH AFTER 24 HOURS Resulted 02/19/19 15:05 Blood Blood Culture - Preliminary NO GROWTH AFTER 24 HOURS Resulted 02/19/19 14:50 Blood Blood Culture - Preliminary NO GROWTH AFTER 24 HOURS Resulted 02/19/19 17:21 Nasal Nares MRSA Culture - Final NO METHICILLIN RESISTANT STAPH AUREUS... 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 Complete Intake and Output 02/20/19 02/21/19 19:00 07:00 Intake Total 3848.166 ml 2447.000 ml Output Total 505 ml 2580 ml Balance 3343.166 ml -133.000 ml Free Water 30 ml IV Total 3768.166 ml 2447.000 ml Other 50 ml Output Urine Total 505 ml 2580 ml Assessment/Plan Problem List: (1) Intracerebral hemorrhage (2) Anasarca (3) HCAP (healthcare-associated pneumonia) Assessment & Plan: Continue meropenem and vanco per ID=Dr Rodriguez. Await sputum cultures. (4) Ventilator dependence Assessment & Plan: Pulmonary = Dr Rudd. Cont mech vent per pulm (5) Acute and chronic respiratory failure (6) Vegetative state Status: not improved Samuel Caballero MD Feb 21, 2019 19:16
[2019-02-21] MEDS ORDERED: Dyna-Hex 2% Top Sol 2oz TOPIC SCH (20:00)
[2019-02-22] VITALS (25 sets, daily range): BP systolic 66–120; BP diastolic 38–80
[2019-02-22] MEDS: Norepinephrine Bitartrate 8 MG in D5W 500ml 492 ML IV SCH (01:52)
[2019-02-22] MEDS: Meropenem 1 GM in NS 55 ML IVPB SCH (06:15)
[2019-02-22] MEDS: Hydrocortisone 100mg Inj IV SCH (06:15)
[2019-02-22] MEDS: NovoLOG Insulin Flexpen SUBQ SCH (06:24)
[2019-02-22 07:06] LABS: HEMATOCRIT 23.3 % (42.0-52.0); HEMOGLOBIN 7.6 G/DL (14.2-18.0); MEAN CORPUSCULAR VOLUME 87 FL (80-99); PLATELET COUNT 52 K/UL (150-450); RED BLOOD COUNT 2.67 M/UL (4.70-6.10); RED CELL DISTRIBUTION WIDTH 15.7 % (11.6-14.8); WHITE BLOOD COUNT 12.7 K/UL (4.8-10.8)
[2019-02-22 07:17] LABS: ALANINE AMINOTRANSFERASE 55 U/L (12-78); ALBUMIN 1.8 G/DL (3.4-5.0); ALBUMIN/GLOBULIN RATIO 0.5 (1.0-2.7); ALKALINE PHOSPHATASE 565 U/L (46-116); ANION GAP 9 mmol/L (5-15); ASPARTATE AMINO TRANSFERASE 84 U/L (15-37); BILIRUBIN,TOTAL 0.3 MG/DL (0.2-1.0); BLOOD UREA NITROGEN 37 mg/dL (7-18); CALCIUM 8.1 MG/DL (8.5-10.1); CARBON DIOXIDE 24 MMOL/L (21-32); CHLORIDE 108 MMOL/L (98-107); CREATININE 0.7 MG/DL (0.55-1.30); POTASSIUM 3.8 MMOL/L (3.5-5.1); SODIUM 141 MMOL/L (136-145)
[2019-02-22 07:22] LABS: PHOSPHORUS 3.6 MG/DL (2.5-4.9)
[2019-02-22] MEDS: Heparin 5000 units/ml inj SUBQ SCH (08:36)
[2019-02-22] MEDS: Pantoprazole Inj IVP SCH (08:45)
[2019-02-22] MEDS ORDERED: Ascorbic Acid 500mg tab GT SCH (09:00)
--- NOTE | 2019-02-22 10:13 | Infectious Diseases Prog Note ---
Assessment/Plan Assessment/Plan 64 yo amle with PMHx of Dementia DM, CVA and COPD who was sent to the ED from his SN[facility] on 02/19/19 for SOB. Septic Shock UTI c/w bacteremia probable PNA CXR 02/19/19 shows B/L atelectasis vs PNA Urine Cx 02/19/19 - >100k GNR 02/19 1/8 S. marcences , probable Amp C (S cEftriaxone, MEropenem); / Bcx p Chronic respiratory failure on Vent S/P Trach Hypothermic; improving Leukocytosis; improving hx of ESBL and MRSA bacteremia early Jan 2019 Dementia DM HTN COPD CVA PLAN - Cont empiric Meropenem #3 and Vancomycin #3 02/20/19 S/P Ertapemem #1 and Amikacin #1 - f/u Cultures U/B/S - f/u Legionella Ag - Monitor CBC and Temps -f/u influenza sc, sp cx -f/u repeat Bcx x2 Thank you for this consult. [facility] will continue to follow the patient with you during this hospitalization. Subjective Allergies: Coded Allergies: OXYTETRACYCLINE (Unverified Allergy, Unknown, 09/05/13) PENICILLINS (Unverified Allergy, Unknown, 06/11/17) Tolerated one dose of Cefepime 06/07/17 Tolerated Cefdinir 06/10/17 Uncoded Allergies: PLASTIC TAPE (Allergy, Mild, ITCHINESS, 08/08/15) MEDICAL TAPE (Allergy, Unknown, 12/10/16) Subjective wbc improving Navid off, levo down to10 bacteremic; repeta Bcx p Objective Vital Signs Last 24 Hour Vital Signs Date Time Temp Pulse Resp B/P (MAP) Pulse Ox O2 Delivery O2 Flow Rate FiO2 02/22/19 10:00 104/69 02/22/19 10:00 72 16 104/69 (81) 100 02/22/19 09:30 73 16 101/69 (80) 98 02/22/19 09:04 74 16 50 02/22/19 09:00 106/68 02/22/19 09:00 76 16 106/68 (81) 100 02/22/19 08:30 72 16 98/60 (73) 92 02/22/19 08:00 50 02/22/19 08:00 76 02/22/19 08:00 120/59 02/22/19 08:00 Mechanical Ventilator Mechanical Ventilator 02/22/19 08:00 98.3 77 17 120/59 (79) 99 02/22/19 07:55 73 16 50 02/22/19 07:30 75 16 98/65 (76) 98 02/22/19 07:00 75 16 96/60 (72) 99 02/22/19 07:00 97/64 02/22/19 06:30 75 16 97/59 (72) 99 02/22/19 06:00 93/59 02/22/19 06:00 77 16 95/62 (73) 100 02/22/19 05:30 78 16 98/59 (72) 100 02/22/19 05:00 99.0 77 19 99/63 (75) 94 02/22/19 05:00 99/63 02/22/19 04:50 78 16 50 02/22/19 04:30 78 15 107/72 (84) 96 02/22/19 04:00 Mechanical Ventilator Mechanical Ventilator 02/22/19 04:00 80 15 106/71 (83) 98 02/22/19 04:00 107/72 02/22/19 04:00 74 02/22/19 04:00 50 02/22/19 03:30 80 16 110/71 (84) 99 02/22/19 03:00 78 16 114/80 (91) 98 02/22/19 03:00 113/71 02/22/19 02:50 79 16 50 02/22/19 02:30 78 16 109/76 (87) 95 02/22/19 02:00 102/65 02/22/19 02:00 76 16 103/66 (78) 96 02/22/19 01:52 103/68 02/22/19 01:30 76 16 103/69 (80) 96 02/22/19 01:20 79 16 50 02/22/19 01:00 75 16 107/70 (82) 97 02/22/19 01:00 99/67 02/22/19 00:30 78 16 109/66 (80) 98 02/22/19 00:00 Mechanical Ventilator Mechanical Ventilator 02/22/19 00:00 50 02/22/19 00:00 100/65 02/22/19 00:00 74 16 100/65 (77) 98 02/22/19 00:00 78 02/21/19 23:30 80 16 109/75 (86) 99 02/21/19 23:17 79 16 50 02/21/19 23:00 111/76 02/21/19 23:00 79 16 111/72 (85) 98 02/21/19 22:30 77 16 109/74 (86) 99 02/21/19 22:00 107/71 02/21/19 22:00 78 16 115/75 (88) 100 02/21/19 21:30 80 16 109/71 (84) 98 02/21/19 21:15 81 16 50 02/21/19 21:00 82 16 117/86 (96) 99 02/21/19 21:00 113/74 02/21/19 20:30 84 16 120/78 (92) 99 02/21/19 20:15 84 16 119/83 (95) 99 02/21/19 20:00 80 02/21/19 20:00 83 16 119/82 (94) 100 02/21/19 20:00 50 02/21/19 20:00 119/83 02/21/19 20:00 Mechanical Ventilator Mechanical Ventilator 02/21/19 19:30 89 16 127/87 (100) 100 02/21/19 19:15 89 16 50 02/21/19 19:00 89 17 124/87 (99) 100 02/21/19 19:00 124/84 02/21/19 18:30 85 16 125/86 (99) 100 02/21/19 18:25 98/54 02/21/19 18:00 98/54 02/21/19 18:00 89 14 123/85 (98) 99 02/21/19 17:30 82 16 120/77 (91) 99 02/21/19 17:05 82 16 50 02/21/19 17:00 82 16 119/80 (93) 98 02/21/19 17:00 118/79 02/21/19 16:30 81 16 116/69 (85) 97 02/21/19 16:00 98.3 82 16 117/80 (92) 97 02/21/19 16:00 Mechanical Ventilator Mechanical Ventilator 02/21/19 16:00 88 02/21/19 16:00 117/77 02/21/19 15:33 50 02/21/19 15:30 80 14 118/79 (92) 98 02/21/19 15:30 80 21 50 02/21/19 15:00 81 16 114/80 (91) 99 02/21/19 15:00 114/80 02/21/19 14:30 83 15 116/79 (91) 100 02/21/19 14:15 84 15 121/79 (93) 100 02/21/19 14:00 121/79 02/21/19 14:00 84 16 120/78 (92) 100 02/21/19 13:45 85 15 117/77 (90) 100 02/21/19 13:30 87 16 115/67 (83) 100 02/21/19 13:15 87 16 114/75 (88) 100 02/21/19 13:04 89/65 02/21/19 13:00 88 17 89/65 (73) 100 02/21/19 12:45 91 18 101/75 (84) 92 02/21/19 12:30 90 18 103/61 (75) 98 02/21/19 12:15 90 22 112/71 (85) 93 02/21/19 12:00 81 02/21/19 12:00 98.1 86 16 109/74 (86) 100 02/21/19 12:00 Mechanical Ventilator Mechanical Ventilator 02/21/19 12:00 112/71 02/21/19 12:00 60 02/21/19 11:45 87 16 111/71 (84) 100 02/21/19 11:30 87 15 109/74 (86) 99 02/21/19 11:20 87 16 60 02/21/19 11:15 83 16 104/66 (79) 99 02/21/19 11:00 82 16 104/66 (79) 99 02/21/19 11:00 104/66 02/21/19 10:30 84 16 104/69 (81) 99 02/21/19 10:22 84 104/68 Height (Feet): 5 Height (Inches): 6.00 Weight (Pounds): 194 Objective Gen: On Vent HEENT: NCAT, MMM, PERRL, no scleral icterus NECK: supple, Intubated, No LAD, No JVD, Right IJ LUNGS: Coarse B/L, No W/C, CARDS: RRR, S1, S2, No M/R/G, ABD: Soft, NT, ND, No R/G, + BS, No HSM, No Masses, PEG ( No E/P) : Deferred Ext: C/C/E, Pulses 2+ B/L (DP, Rad): NEURO: Intuibated on Vent SKIN: Warm/dry, No rashes, B/L buttock ulcers Microbiology Date/Time Source Procedure Growth Status 02/19/19 20:15 Blood Blood Culture - Final Serratia Marcescens Complete 02/19/19 20:00 Blood Blood Culture - Preliminary NO GROWTH AFTER 48 HOURS Resulted 02/19/19 15:05 Blood Blood Culture - Preliminary NO GROWTH AFTER 48 HOURS Resulted 02/19/19 14:50 Blood Blood Culture - Preliminary NO GROWTH AFTER 48 HOURS Resulted 02/19/19 17:21 Nasal Nares MRSA Culture - Final NO METHICILLIN RESISTANT STAPH AUREUS... 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 Complete Laboratory Tests Test 02/21/19 14:10 02/21/19 19:40 02/21/19 23:25 02/22/19 06:10 Lactic Acid Level 2.60 mmol/L (0.4-2.0) H 2.30 mmol/L (0.4-2.0) H 2.10 mmol/L (0.66-2.22) 1.50 mmol/L (0.4-2.0) White Blood Count 12.7 K/UL (4.8-10.8) H Red Blood Count 2.67 M/UL (4.70-6.10) L Hemoglobin 7.6 G/DL (14.2-18.0) L Hematocrit 23.3 % (42.0-52.0) L Mean Corpuscular Volume 87 FL (80-99) Mean Corpuscular Hemoglobin 28.6 PG (27.0-31.0) Mean Corpuscular Hemoglobin Concent 32.8 G/DL (32.0-36.0) Red Cell Distribution Width 15.7 % (11.6-14.8) H Platelet Count 52 K/UL (150-450) L Mean Platelet Volume 7.5 FL (6.5-10.1) Neutrophils (%) (Auto) % (45.0-75.0) Lymphocytes (%) (Auto) % (20.0-45.0) Monocytes (%) (Auto) % (1.0-10.0) Eosinophils (%) (Auto) % (0.0-3.0) Basophils (%) (Auto) % (0.0-2.0) Differential Total Cells Counted 100 Neutrophils % (Manual) 83 % (45-75) H Lymphocytes % (Manual) 11 % (20-45) L Monocytes % (Manual) 4 % (1-10) Eosinophils % (Manual) 2 % (0-3) Basophils % (Manual) 0 % (0-2) Band Neutrophils 0 % (0-8) Platelet Estimate Decreased L Platelet Morphology Normal Hypochromasia 1+ Anisocytosis 1+ Sodium Level 141 MMOL/L (136-145) Potassium Level 3.8 MMOL/L (3.5-5.1) Chloride Level 108 MMOL/L (98-107) H Carbon Dioxide Level 24 MMOL/L (21-32) Anion Gap 9 mmol/L (5-15) Blood Urea Nitrogen 37 mg/dL (7-18) H Creatinine 0.7 MG/DL (0.55-1.30) Estimat Glomerular Filtration Rate > 60 mL/min (>60) Glucose Level 182 MG/DL (74-106) H Uric Acid 6.9 MG/DL (2.6-7.2) Calcium Level 8.1 MG/DL (8.5-10.1) L Phosphorus Level 3.6 MG/DL (2.5-4.9) Magnesium Level 1.9 MG/DL (1.8-2.4) Total Bilirubin 0.3 MG/DL (0.2-1.0) Aspartate Amino Transf (AST/SGOT) 84 U/L (15-37) H Alanine Aminotransferase (ALT/SGPT) 55 U/L (12-78) Alkaline Phosphatase 565 U/L (46-116) H Troponin I 0.000 ng/mL (0.000-0.056) C-Reactive Protein, Quantitative 12.1 mg/dL (0.00-0.90) H Pro-B-Type Natriuretic Peptide 5210 pg/mL (0-125) H Total Protein 5.4 G/DL (6.4-8.2) L Albumin 1.8 G/DL (3.4-5.0) L Globulin 3.6 g/dL Albumin/Globulin Ratio 0.5 (1.0-2.7) L Random Vancomycin Level 20.9 ug/mL Test 02/22/19 08:55 Arterial Blood pH 7.404 (7.350-7.450) Arterial Blood Partial Pressure CO2 35.1 mmHg (35.0-45.0) Arterial Blood Partial Pressure O2 < 45.3 mmHg (75.0-100.0) Arterial Blood HCO3 21.5 mmol/L (22.0-26.0) L Arterial Blood Oxygen Saturation 75.1 % (95-100) *L Arterial Blood Base Excess -2.9 (-2-2) L Melvin Test Positive Current Medications Medications (Trade) Dose Ordered Sig/Sima Route PRN Reason Start Time Stop Time Status Last Admin Dose Admin Acetaminophen (Tylenol) 650 mg Q4H PRN ORAL T>100.5 02/19/19 19:45 03/21/19 19:44 Albuterol/ Ipratropium (Albuterol/ Ipratropium) 3 ml Q4H PRN HHN Shortness of Breath 02/19/19 19:45 02/24/19 19:44 Ascorbic Acid (Vitamin C) 250 mg DAILY GT 02/22/19 09:00 03/24/19 08:59 02/22/19 08:45 Chlorhexidine Gluconate (Paulina-Hex 2%) 1 applic DAILY@1999 TOPIC 02/21/19 20:00 03/23/19 19:59 02/21/19 20:58 Dextrose (Dextrose 50%) 25 ml Q30M PRN IV Hypoglycemia 02/19/19 20:15 03/21/19 20:14 Dextrose (Dextrose 50%) 50 ml Q30M PRN IV Hypoglycemia 02/19/19 20:15 03/21/19 20:14 Heparin Sodium (Porcine) (Heparin 5000 units/ml) 5,000 units EVERY 12 HOURS SUBQ 02/19/19 21:00 03/21/19 20:59 02/20/19 20:55 Hydrocortisone (Solu-CORTEF) 100 mg EVERY 8 HOURS IV 02/20/19 09:00 03/22/19 08:59 02/22/19 06:15 Insulin Aspart (NovoLOG) BEFORE MEALS AND HS SUBQ 02/19/19 21:30 03/21/19 21:29 02/22/19 06:24 Lorazepam (Ativan 2mg/ml 1ml) 2 mg Q2H PRN IV For Anxiety 02/19/19 19:45 02/26/19 19:44 Meropenem 1 gm/ Sodium Chloride 55 ml @ 110 mls/hr Q8HR IVPB 02/20/19 14:00 02/25/19 13:59 02/22/19 06:15 Norepinephrine Bitartrate 8 mg/ Dextrose 500 ml @ 0 mls/hr Q24H IV 02/19/19 23:00 03/21/19 22:59 02/22/19 01:52 Ondansetron HCl (Zofran) 4 mg Q6H PRN IVP Nausea & Vomiting 02/19/19 19:45 03/21/19 19:44 Pantoprazole (Protonix) 40 mg Q12HR IVP 02/20/19 09:00 03/22/19 08:59 02/22/19 08:45 Phenylephrine HCl 50 mg/Dextrose 250 ml @ 0 mls/hr Q24H IV 02/20/19 07:30 03/22/19 07:29 02/21/19 10:22 Polyethylene Glycol (Miralax) 17 gm DAILYPRN PRN ORAL Constipation 02/19/19 19:45 03/21/19 19:44 Sodium Chloride 1,000 ml @ 50 mls/hr Q20H IV 02/20/19 16:00 03/22/19 15:59 02/22/19 03:37 Vancomycin HCl (Vanco rx to dose) 1 ea DAILY PRN MISC . 02/19/19 20:15 03/21/19 20:14 Vancomycin/Sodium Chloride 275 ml @ 183.333 mls/hr 2200 IVPB 02/22/19 22:00 02/27/19 21:59 Nanci Kline M.D. Feb 22, 2019 10:13
--- NOTE | 2019-02-22 10:18 | Diagnostic Imaging Report ---
Indication: Shortness of breath Technique: One view of the chest Comparison: 02/20/2019 Findings: There is decreased pleural fluid on the left. There is increased fluid in the minor fissure on the right. Interstitial congestion in and airspace opacification appears overall similar to the prior exam. Tracheostomy, right jugular central venous catheter remain Impression: Improved and persistent and still large left pleural effusion Evidence of increased pleural fluid on the right Stable interstitial and airspace infiltrates versus edema
[2019-02-22] MEDS ORDERED: Haloperidol 5mg/ml Inj IM PRN ×2 (10:30→16:00)
[2019-02-22] MEDS ORDERED: Rate Change Narcotic Drip MISC PRN (10:30)
[2019-02-22] MEDS ORDERED: Glycopyrrolate 0.2mg/ml 1ml Vial IV PRN ×2 (10:30→16:00)
[2019-02-22] MEDS ORDERED: Prochlorperazine 10mg tab ORAL PRN ×2 (10:30→16:30)
[2019-02-22] MEDS ORDERED: Morphine Sulfate 10mg/ml Inj IVP SCH ×3 (10:30→13:45)
--- NOTE | 2019-02-22 10:31 | Pulmonolgy Critical Care Note ---
Critical Care - Asmt/Plan Problems: (1) Septic shock (2) Pleural effusion (3) Chronic respiratory failure (4) Vegetative state (5) Tracheostomy in place (6) shelter resident Assessment/Plan: I had a conversation with the . She agrees with comfort care and end of life care. Patient has been in this condition for the last 5 years and she thinks the patient is ready now to pass. Critical Care - Objective Last 24 Hour Vital Signs Date Time Temp Pulse Resp B/P (MAP) Pulse Ox O2 Delivery O2 Flow Rate FiO2 02/22/19 10:00 104/69 02/22/19 10:00 72 16 104/69 (81) 100 02/22/19 09:30 73 16 101/69 (80) 98 02/22/19 09:04 74 16 50 02/22/19 09:00 106/68 02/22/19 09:00 76 16 106/68 (81) 100 02/22/19 08:30 72 16 98/60 (73) 92 02/22/19 08:00 50 02/22/19 08:00 76 02/22/19 08:00 120/59 02/22/19 08:00 Mechanical Ventilator Mechanical Ventilator 02/22/19 08:00 98.3 77 17 120/59 (79) 99 02/22/19 07:55 73 16 50 02/22/19 07:30 75 16 98/65 (76) 98 02/22/19 07:00 75 16 96/60 (72) 99 02/22/19 07:00 97/64 02/22/19 06:30 75 16 97/59 (72) 99 02/22/19 06:00 93/59 02/22/19 06:00 77 16 95/62 (73) 100 02/22/19 05:30 78 16 98/59 (72) 100 02/22/19 05:00 99.0 77 19 99/63 (75) 94 02/22/19 05:00 99/63 02/22/19 04:50 78 16 50 02/22/19 04:30 78 15 107/72 (84) 96 02/22/19 04:00 Mechanical Ventilator Mechanical Ventilator 02/22/19 04:00 80 15 106/71 (83) 98 02/22/19 04:00 107/72 02/22/19 04:00 74 02/22/19 04:00 50 02/22/19 03:30 80 16 110/71 (84) 99 02/22/19 03:00 78 16 114/80 (91) 98 02/22/19 03:00 113/71 02/22/19 02:50 79 16 50 02/22/19 02:30 78 16 109/76 (87) 95 02/22/19 02:00 102/65 02/22/19 02:00 76 16 103/66 (78) 96 02/22/19 01:52 103/68 02/22/19 01:30 76 16 103/69 (80) 96 02/22/19 01:20 79 16 50 02/22/19 01:00 75 16 107/70 (82) 97 02/22/19 01:00 99/67 02/22/19 00:30 78 16 109/66 (80) 98 02/22/19 00:00 Mechanical Ventilator Mechanical Ventilator 02/22/19 00:00 50 02/22/19 00:00 100/65 02/22/19 00:00 74 16 100/65 (77) 98 02/22/19 00:00 78 02/21/19 23:30 80 16 109/75 (86) 99 02/21/19 23:17 79 16 50 02/21/19 23:00 111/76 02/21/19 23:00 79 16 111/72 (85) 98 02/21/19 22:30 77 16 109/74 (86) 99 02/21/19 22:00 107/71 02/21/19 22:00 78 16 115/75 (88) 100 02/21/19 21:30 80 16 109/71 (84) 98 02/21/19 21:15 81 16 50 02/21/19 21:00 82 16 117/86 (96) 99 02/21/19 21:00 113/74 02/21/19 20:30 84 16 120/78 (92) 99 02/21/19 20:15 84 16 119/83 (95) 99 02/21/19 20:00 80 02/21/19 20:00 83 16 119/82 (94) 100 02/21/19 20:00 50 02/21/19 20:00 119/83 02/21/19 20:00 Mechanical Ventilator Mechanical Ventilator 02/21/19 19:30 89 16 127/87 (100) 100 02/21/19 19:15 89 16 50 02/21/19 19:00 89 17 124/87 (99) 100 02/21/19 19:00 124/84 02/21/19 18:30 85 16 125/86 (99) 100 02/21/19 18:25 98/54 02/21/19 18:00 98/54 02/21/19 18:00 89 14 123/85 (98) 99 02/21/19 17:30 82 16 120/77 (91) 99 02/21/19 17:05 82 16 50 02/21/19 17:00 82 16 119/80 (93) 98 02/21/19 17:00 118/79 02/21/19 16:30 81 16 116/69 (85) 97 02/21/19 16:00 98.3 82 16 117/80 (92) 97 02/21/19 16:00 Mechanical Ventilator Mechanical Ventilator 02/21/19 16:00 88 02/21/19 16:00 117/77 02/21/19 15:33 50 02/21/19 15:30 80 14 118/79 (92) 98 02/21/19 15:30 80 21 50 02/21/19 15:00 81 16 114/80 (91) 99 02/21/19 15:00 114/80 02/21/19 14:30 83 15 116/79 (91) 100 02/21/19 14:15 84 15 121/79 (93) 100 02/21/19 14:00 121/79 02/21/19 14:00 84 16 120/78 (92) 100 02/21/19 13:45 85 15 117/77 (90) 100 02/21/19 13:30 87 16 115/67 (83) 100 02/21/19 13:15 87 16 114/75 (88) 100 02/21/19 13:04 89/65 02/21/19 13:00 88 17 89/65 (73) 100 02/21/19 12:45 91 18 101/75 (84) 92 02/21/19 12:30 90 18 103/61 (75) 98 02/21/19 12:15 90 22 112/71 (85) 93 02/21/19 12:00 81 02/21/19 12:00 98.1 86 16 109/74 (86) 100 02/21/19 12:00 Mechanical Ventilator Mechanical Ventilator 02/21/19 12:00 112/71 02/21/19 12:00 60 02/21/19 11:45 87 16 111/71 (84) 100 02/21/19 11:30 87 15 109/74 (86) 99 02/21/19 11:20 87 16 60 02/21/19 11:15 83 16 104/66 (79) 99 02/21/19 11:00 82 16 104/66 (79) 99 02/21/19 11:00 104/66 02/21/19 10:30 84 16 104/69 (81) 99 Status: obtunded Condition: critical HEENT: atraumatic, normocephalic Lungs: rales, rhonchi Heart: HR/BP unstable Abdomen: soft, active bowel sounds Extremities: no C/C/E Micro: Microbiology Date/Time Source Procedure Growth Status 02/19/19 20:15 Blood Blood Culture - Final Serratia Marcescens Complete 02/19/19 20:00 Blood Blood Culture - Preliminary NO GROWTH AFTER 48 HOURS Resulted 02/19/19 15:05 Blood Blood Culture - Preliminary NO GROWTH AFTER 48 HOURS Resulted 02/19/19 14:50 Blood Blood Culture - Preliminary NO GROWTH AFTER 48 HOURS Resulted 02/19/19 17:21 Nasal Nares MRSA Culture - Final NO METHICILLIN RESISTANT STAPH AUREUS... 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 Complete Accucheck: 194 Critical Care - Subjective ROS Limited/Unobtainable: Yes Condition: critical EKG Rhythm: Sinus Rhythm FI02: 50 Vent Support Breath Rate: 16 Vent Support Mode: AC Vent Tidal Volume: 600 Sputum Amount: Small PEEP: 0.0 PIP: 41 I&O: Intake and Output 02/21/19 02/22/19 18:59 06:59 Intake Total 1792.08 ml 1458.4 ml Output Total 2690 ml 1200 ml Balance -897.92 ml 258.4 ml IV Total 1792.08 ml 1458.4 ml Output Urine Total 2690 ml 1200 ml Labs: Laboratory Tests Test 02/21/19 14:10 02/21/19 19:40 02/21/19 23:25 02/22/19 06:10 Lactic Acid Level 2.60 mmol/L (0.4-2.0) H 2.30 mmol/L (0.4-2.0) H 2.10 mmol/L (0.66-2.22) 1.50 mmol/L (0.4-2.0) White Blood Count 12.7 K/UL (4.8-10.8) H Red Blood Count 2.67 M/UL (4.70-6.10) L Hemoglobin 7.6 G/DL (14.2-18.0) L Hematocrit 23.3 % (42.0-52.0) L Mean Corpuscular Volume 87 FL (80-99) Mean Corpuscular Hemoglobin 28.6 PG (27.0-31.0) Mean Corpuscular Hemoglobin Concent 32.8 G/DL (32.0-36.0) Red Cell Distribution Width 15.7 % (11.6-14.8) H Platelet Count 52 K/UL (150-450) L Mean Platelet Volume 7.5 FL (6.5-10.1) Neutrophils (%) (Auto) % (45.0-75.0) Lymphocytes (%) (Auto) % (20.0-45.0) Monocytes (%) (Auto) % (1.0-10.0) Eosinophils (%) (Auto) % (0.0-3.0) Basophils (%) (Auto) % (0.0-2.0) Differential Total Cells Counted 100 Neutrophils % (Manual) 83 % (45-75) H Lymphocytes % (Manual) 11 % (20-45) L Monocytes % (Manual) 4 % (1-10) Eosinophils % (Manual) 2 % (0-3) Basophils % (Manual) 0 % (0-2) Band Neutrophils 0 % (0-8) Platelet Estimate Decreased L Platelet Morphology Normal Hypochromasia 1+ Anisocytosis 1+ Sodium Level 141 MMOL/L (136-145) Potassium Level 3.8 MMOL/L (3.5-5.1) Chloride Level 108 MMOL/L (98-107) H Carbon Dioxide Level 24 MMOL/L (21-32) Anion Gap 9 mmol/L (5-15) Blood Urea Nitrogen 37 mg/dL (7-18) H Creatinine 0.7 MG/DL (0.55-1.30) Estimat Glomerular Filtration Rate > 60 mL/min (>60) Glucose Level 182 MG/DL (74-106) H Uric Acid 6.9 MG/DL (2.6-7.2) Calcium Level 8.1 MG/DL (8.5-10.1) L Phosphorus Level 3.6 MG/DL (2.5-4.9) Magnesium Level 1.9 MG/DL (1.8-2.4) Total Bilirubin 0.3 MG/DL (0.2-1.0) Aspartate Amino Transf (AST/SGOT) 84 U/L (15-37) H Alanine Aminotransferase (ALT/SGPT) 55 U/L (12-78) Alkaline Phosphatase 565 U/L (46-116) H Troponin I 0.000 ng/mL (0.000-0.056) C-Reactive Protein, Quantitative 12.1 mg/dL (0.00-0.90) H Pro-B-Type Natriuretic Peptide 5210 pg/mL (0-125) H Total Protein 5.4 G/DL (6.4-8.2) L Albumin 1.8 G/DL (3.4-5.0) L Globulin 3.6 g/dL Albumin/Globulin Ratio 0.5 (1.0-2.7) L Random Vancomycin Level 20.9 ug/mL Test 02/22/19 08:55 Arterial Blood pH 7.404 (7.350-7.450) Arterial Blood Partial Pressure CO2 35.1 mmHg (35.0-45.0) Arterial Blood Partial Pressure O2 < 45.3 mmHg (75.0-100.0) Arterial Blood HCO3 21.5 mmol/L (22.0-26.0) L Arterial Blood Oxygen Saturation 75.1 % (95-100) *L Arterial Blood Base Excess -2.9 (-2-2) L Melvin Test Positive Sagar Rudd MD Feb 22, 2019 10:31
[2019-02-22] MEDS ORDERED: PCA Morphine 1mg/ml 30 ML IV PRN (11:00)
--- NOTE | 2019-02-22 13:49 | Nephrology Progress Note ---
Assessment/Plan Problem List: (1) Septic shock (2) Hyperkalemia (3) Acute and chronic respiratory failure (4) Ventilator dependence (5) Feeding by G-tube Assessment (1) Hyperkalemia (2) HARDEEP (acute kidney injury) (3) Sepsis / shock (4) Hyponatremia Others: HCAP (healthcare-associated pneumonia) Chronic respiratory failure Ventilator dependence Vegetative state History of CVA (cerebrovascular accident) Feeding by G-tube HTN (hypertension) Cerebral vascular disease Plan Patient now on comfort care will sign off previously Antibiotics Hydrocortisone trial Kayexelate as needed monitor lytes per orders poor prognosis Subjective ROS Limited/Unobtainable: Yes Objective Objective Last 24 Hour Vital Signs Date Time Temp Pulse Resp B/P (MAP) Pulse Ox O2 Delivery O2 Flow Rate FiO2 02/22/19 13:18 70 16 50 02/22/19 12:00 50 02/22/19 12:00 69 02/22/19 12:00 Mechanical Ventilator Mechanical Ventilator 02/22/19 10:52 66 16 50 02/22/19 10:30 91/57 02/22/19 10:30 72 16 91/57 (68) 99 02/22/19 10:00 104/69 02/22/19 10:00 72 16 104/69 (81) 100 02/22/19 09:30 73 16 101/69 (80) 98 02/22/19 09:04 74 16 50 02/22/19 09:00 106/68 02/22/19 09:00 76 16 106/68 (81) 100 02/22/19 08:30 72 16 98/60 (73) 92 02/22/19 08:00 50 02/22/19 08:00 76 02/22/19 08:00 120/59 02/22/19 08:00 Mechanical Ventilator Mechanical Ventilator 02/22/19 08:00 98.3 77 17 120/59 (79) 99 02/22/19 07:55 73 16 50 02/22/19 07:30 75 16 98/65 (76) 98 02/22/19 07:00 75 16 96/60 (72) 99 02/22/19 07:00 97/64 02/22/19 06:30 75 16 97/59 (72) 99 02/22/19 06:00 93/59 02/22/19 06:00 77 16 95/62 (73) 100 02/22/19 05:30 78 16 98/59 (72) 100 02/22/19 05:00 99.0 77 19 99/63 (75) 94 02/22/19 05:00 99/63 02/22/19 04:50 78 16 50 02/22/19 04:30 78 15 107/72 (84) 96 02/22/19 04:00 Mechanical Ventilator Mechanical Ventilator 02/22/19 04:00 80 15 106/71 (83) 98 02/22/19 04:00 107/72 02/22/19 04:00 74 02/22/19 04:00 50 02/22/19 03:30 80 16 110/71 (84) 99 02/22/19 03:00 78 16 114/80 (91) 98 02/22/19 03:00 113/71 02/22/19 02:50 79 16 50 02/22/19 02:30 78 16 109/76 (87) 95 02/22/19 02:00 102/65 02/22/19 02:00 76 16 103/66 (78) 96 02/22/19 01:52 103/68 02/22/19 01:30 76 16 103/69 (80) 96 02/22/19 01:20 79 16 50 02/22/19 01:00 75 16 107/70 (82) 97 02/22/19 01:00 99/67 02/22/19 00:30 78 16 109/66 (80) 98 02/22/19 00:00 Mechanical Ventilator Mechanical Ventilator 02/22/19 00:00 50 02/22/19 00:00 100/65 02/22/19 00:00 74 16 100/65 (77) 98 02/22/19 00:00 78 02/21/19 23:30 80 16 109/75 (86) 99 02/21/19 23:17 79 16 50 02/21/19 23:00 111/76 02/21/19 23:00 79 16 111/72 (85) 98 02/21/19 22:30 77 16 109/74 (86) 99 02/21/19 22:00 107/71 02/21/19 22:00 78 16 115/75 (88) 100 02/21/19 21:30 80 16 109/71 (84) 98 02/21/19 21:15 81 16 50 02/21/19 21:00 82 16 117/86 (96) 99 02/21/19 21:00 113/74 02/21/19 20:30 84 16 120/78 (92) 99 02/21/19 20:15 84 16 119/83 (95) 99 02/21/19 20:00 80 02/21/19 20:00 83 16 119/82 (94) 100 02/21/19 20:00 50 02/21/19 20:00 119/83 02/21/19 20:00 Mechanical Ventilator Mechanical Ventilator 02/21/19 19:30 89 16 127/87 (100) 100 02/21/19 19:15 89 16 50 02/21/19 19:00 89 17 124/87 (99) 100 02/21/19 19:00 124/84 02/21/19 18:30 85 16 125/86 (99) 100 02/21/19 18:25 98/54 02/21/19 18:00 98/54 02/21/19 18:00 89 14 123/85 (98) 99 02/21/19 17:30 82 16 120/77 (91) 99 02/21/19 17:05 82 16 50 02/21/19 17:00 82 16 119/80 (93) 98 02/21/19 17:00 118/79 02/21/19 16:30 81 16 116/69 (85) 97 02/21/19 16:00 98.3 82 16 117/80 (92) 97 02/21/19 16:00 Mechanical Ventilator Mechanical Ventilator 02/21/19 16:00 88 02/21/19 16:00 117/77 02/21/19 15:33 50 02/21/19 15:30 80 14 118/79 (92) 98 02/21/19 15:30 80 21 50 02/21/19 15:00 81 16 114/80 (91) 99 02/21/19 15:00 114/80 02/21/19 14:30 83 15 116/79 (91) 100 02/21/19 14:15 84 15 121/79 (93) 100 02/21/19 14:00 121/79 02/21/19 14:00 84 16 120/78 (92) 100 Intake and Output 02/21/19 02/22/19 18:59 06:59 Intake Total 1792.08 ml 1458.4 ml Output Total 2690 ml 1200 ml Balance -897.92 ml 258.4 ml IV Total 1792.08 ml 1458.4 ml Output Urine Total 2690 ml 1200 ml Laboratory Tests 02/21/19 14:10: Lactic Acid Level 2.60H 02/21/19 19:40: Lactic Acid Level 2.30H 02/21/19 23:25: Lactic Acid Level 2.10 02/22/19 06:10: Lactic Acid Level 1.50, White Blood Count 12.7H, Red Blood Count 2.67L, Hemoglobin 7.6L, Hematocrit 23.3L, Mean Corpuscular Volume 87, Mean Corpuscular Hemoglobin 28.6, Mean Corpuscular Hemoglobin Concent 32.8, Red Cell Distribution Width 15.7H, Platelet Count 52L, Mean Platelet Volume 7.5, Neutrophils (%) (Auto) , Lymphocytes (%) (Auto) , Monocytes (%) (Auto) , Eosinophils (%) (Auto) , Basophils (%) (Auto) , Differential Total Cells Counted 100, Neutrophils % (Manual) 83H, Lymphocytes % (Manual) 11L, Monocytes % (Manual) 4, Eosinophils % (Manual) 2, Basophils % (Manual) 0, Band Neutrophils 0, Platelet Estimate DecreasedL, Platelet Morphology Normal, Hypochromasia 1+, Anisocytosis 1+, Sodium Level 141, Potassium Level 3.8, Chloride Level 108H, Carbon Dioxide Level 24, Anion Gap 9, Blood Urea Nitrogen 37H, Creatinine 0.7, Estimat Glomerular Filtration Rate > 60, Glucose Level 182H , Uric Acid 6.9, Calcium Level 8.1L, Phosphorus Level 3.6, Magnesium Level 1.9, Total Bilirubin 0.3, Aspartate Amino Transf (AST/SGOT) 84H, Alanine Aminotransferase (ALT/SGPT) 55, Alkaline Phosphatase 565H, Troponin I 0.000, C- Reactive Protein, Quantitative 12.1H, Pro-B-Type Natriuretic Peptide 5210H, Total Protein 5.4L, Albumin 1.8L, Globulin 3.6, Albumin/Globulin Ratio 0.5L, Random Vancomycin Level 20.9 02/22/19 08:55: Arterial Blood pH 7.404, Arterial Blood Partial Pressure CO2 35.1, Arterial Blood Partial Pressure O2 < 45.3*L, Arterial Blood HCO3 21.5L, Arterial Blood Oxygen Saturation 75.1*L, Arterial Blood Base Excess -2.9L, Melvin Test Positive Height (Feet): 5 Height (Inches): 6.00 Weight (Pounds): 194 General Appearance: no apparent distress EENT: other - vented Cardiovascular: tachycardia Respiratory/Chest: decreased breath sounds Sergey Rivera MD Feb 22, 2019 13:49
--- NOTE | 2019-02-22 14:49 | Surgery Progress Note ---
Surgery Progress Note Subjective Additional Comments no acute events ill appearing in ICU Objective Last 24 Hour Vital Signs Date Time Temp Pulse Resp B/P (MAP) Pulse Ox O2 Delivery O2 Flow Rate FiO2 02/22/19 13:18 70 16 50 02/22/19 12:00 50 02/22/19 12:00 69 02/22/19 12:00 Mechanical Ventilator Mechanical Ventilator 02/22/19 10:52 66 16 50 02/22/19 10:30 91/57 02/22/19 10:30 72 16 91/57 (68) 99 02/22/19 10:00 104/69 02/22/19 10:00 72 16 104/69 (81) 100 02/22/19 09:30 73 16 101/69 (80) 98 02/22/19 09:04 74 16 50 02/22/19 09:00 106/68 02/22/19 09:00 76 16 106/68 (81) 100 02/22/19 08:30 72 16 98/60 (73) 92 02/22/19 08:00 50 02/22/19 08:00 76 02/22/19 08:00 120/59 02/22/19 08:00 Mechanical Ventilator Mechanical Ventilator 02/22/19 08:00 98.3 77 17 120/59 (79) 99 02/22/19 07:55 73 16 50 02/22/19 07:30 75 16 98/65 (76) 98 02/22/19 07:00 75 16 96/60 (72) 99 02/22/19 07:00 97/64 02/22/19 06:30 75 16 97/59 (72) 99 02/22/19 06:00 93/59 02/22/19 06:00 77 16 95/62 (73) 100 02/22/19 05:30 78 16 98/59 (72) 100 02/22/19 05:00 99.0 77 19 99/63 (75) 94 02/22/19 05:00 99/63 02/22/19 04:50 78 16 50 02/22/19 04:30 78 15 107/72 (84) 96 02/22/19 04:00 Mechanical Ventilator Mechanical Ventilator 02/22/19 04:00 80 15 106/71 (83) 98 02/22/19 04:00 107/72 02/22/19 04:00 74 02/22/19 04:00 50 02/22/19 03:30 80 16 110/71 (84) 99 02/22/19 03:00 78 16 114/80 (91) 98 02/22/19 03:00 113/71 02/22/19 02:50 79 16 50 02/22/19 02:30 78 16 109/76 (87) 95 02/22/19 02:00 102/65 02/22/19 02:00 76 16 103/66 (78) 96 02/22/19 01:52 103/68 02/22/19 01:30 76 16 103/69 (80) 96 02/22/19 01:20 79 16 50 02/22/19 01:00 75 16 107/70 (82) 97 02/22/19 01:00 99/67 02/22/19 00:30 78 16 109/66 (80) 98 02/22/19 00:00 Mechanical Ventilator Mechanical Ventilator 02/22/19 00:00 50 02/22/19 00:00 100/65 02/22/19 00:00 74 16 100/65 (77) 98 02/22/19 00:00 78 02/21/19 23:30 80 16 109/75 (86) 99 02/21/19 23:17 79 16 50 02/21/19 23:00 111/76 02/21/19 23:00 79 16 111/72 (85) 98 02/21/19 22:30 77 16 109/74 (86) 99 02/21/19 22:00 107/71 02/21/19 22:00 78 16 115/75 (88) 100 02/21/19 21:30 80 16 109/71 (84) 98 02/21/19 21:15 81 16 50 02/21/19 21:00 82 16 117/86 (96) 99 02/21/19 21:00 113/74 02/21/19 20:30 84 16 120/78 (92) 99 02/21/19 20:15 84 16 119/83 (95) 99 02/21/19 20:00 80 02/21/19 20:00 83 16 119/82 (94) 100 02/21/19 20:00 50 02/21/19 20:00 119/83 02/21/19 20:00 Mechanical Ventilator Mechanical Ventilator 02/21/19 19:30 89 16 127/87 (100) 100 02/21/19 19:15 89 16 50 02/21/19 19:00 89 17 124/87 (99) 100 02/21/19 19:00 124/84 02/21/19 18:30 85 16 125/86 (99) 100 02/21/19 18:25 98/54 02/21/19 18:00 98/54 02/21/19 18:00 89 14 123/85 (98) 99 02/21/19 17:30 82 16 120/77 (91) 99 02/21/19 17:05 82 16 50 02/21/19 17:00 82 16 119/80 (93) 98 02/21/19 17:00 118/79 02/21/19 16:30 81 16 116/69 (85) 97 02/21/19 16:00 98.3 82 16 117/80 (92) 97 02/21/19 16:00 Mechanical Ventilator Mechanical Ventilator 02/21/19 16:00 88 02/21/19 16:00 117/77 02/21/19 15:33 50 02/21/19 15:30 80 14 118/79 (92) 98 02/21/19 15:30 80 21 50 02/21/19 15:00 81 16 114/80 (91) 99 02/21/19 15:00 114/80 I&O Intake and Output 02/21/19 02/22/19 18:59 06:59 Intake Total 1792.08 ml 1458.4 ml Output Total 2690 ml 1200 ml Balance -897.92 ml 258.4 ml IV Total 1792.08 ml 1458.4 ml Output Urine Total 2690 ml 1200 ml Dressing: saturated, other Drains: other Cardiovascular: other Respiratory: decreased breath sounds, other Abdomen: soft, decreased bowel sounds Extremities: edema, no cyanosis, other Laboratory Tests Test 02/21/19 19:40 02/21/19 23:25 02/22/19 06:10 02/22/19 08:55 Lactic Acid Level 2.30 mmol/L (0.4-2.0) H 2.10 mmol/L (0.66-2.22) 1.50 mmol/L (0.4-2.0) White Blood Count 12.7 K/UL (4.8-10.8) H Red Blood Count 2.67 M/UL (4.70-6.10) L Hemoglobin 7.6 G/DL (14.2-18.0) L Hematocrit 23.3 % (42.0-52.0) L Mean Corpuscular Volume 87 FL (80-99) Mean Corpuscular Hemoglobin 28.6 PG (27.0-31.0) Mean Corpuscular Hemoglobin Concent 32.8 G/DL (32.0-36.0) Red Cell Distribution Width 15.7 % (11.6-14.8) H Platelet Count 52 K/UL (150-450) L Mean Platelet Volume 7.5 FL (6.5-10.1) Neutrophils (%) (Auto) % (45.0-75.0) Lymphocytes (%) (Auto) % (20.0-45.0) Monocytes (%) (Auto) % (1.0-10.0) Eosinophils (%) (Auto) % (0.0-3.0) Basophils (%) (Auto) % (0.0-2.0) Differential Total Cells Counted 100 Neutrophils % (Manual) 83 % (45-75) H Lymphocytes % (Manual) 11 % (20-45) L Monocytes % (Manual) 4 % (1-10) Eosinophils % (Manual) 2 % (0-3) Basophils % (Manual) 0 % (0-2) Band Neutrophils 0 % (0-8) Platelet Estimate Decreased L Platelet Morphology Normal Hypochromasia 1+ Anisocytosis 1+ Sodium Level 141 MMOL/L (136-145) Potassium Level 3.8 MMOL/L (3.5-5.1) Chloride Level 108 MMOL/L (98-107) H Carbon Dioxide Level 24 MMOL/L (21-32) Anion Gap 9 mmol/L (5-15) Blood Urea Nitrogen 37 mg/dL (7-18) H Creatinine 0.7 MG/DL (0.55-1.30) Estimat Glomerular Filtration Rate > 60 mL/min (>60) Glucose Level 182 MG/DL (74-106) H Uric Acid 6.9 MG/DL (2.6-7.2) Calcium Level 8.1 MG/DL (8.5-10.1) L Phosphorus Level 3.6 MG/DL (2.5-4.9) Magnesium Level 1.9 MG/DL (1.8-2.4) Total Bilirubin 0.3 MG/DL (0.2-1.0) Aspartate Amino Transf (AST/SGOT) 84 U/L (15-37) H Alanine Aminotransferase (ALT/SGPT) 55 U/L (12-78) Alkaline Phosphatase 565 U/L (46-116) H Troponin I 0.000 ng/mL (0.000-0.056) C-Reactive Protein, Quantitative 12.1 mg/dL (0.00-0.90) H Pro-B-Type Natriuretic Peptide 5210 pg/mL (0-125) H Total Protein 5.4 G/DL (6.4-8.2) L Albumin 1.8 G/DL (3.4-5.0) L Globulin 3.6 g/dL Albumin/Globulin Ratio 0.5 (1.0-2.7) L Random Vancomycin Level 20.9 ug/mL Arterial Blood pH 7.404 (7.350-7.450) Arterial Blood Partial Pressure CO2 35.1 mmHg (35.0-45.0) Arterial Blood Partial Pressure O2 < 45.3 mmHg (75.0-100.0) Arterial Blood HCO3 21.5 mmol/L (22.0-26.0) L Arterial Blood Oxygen Saturation 75.1 % (95-100) *L Arterial Blood Base Excess -2.9 (-2-2) L Melvin Test Positive Plan Problems: (1) Decubitus skin ulcer Assessment & Plan: Patient presented on admission with generalized edemae, multiple pressure injuries and contractures. Pt weeping large amt serous exudate from both upper and both lower ext. Penis and scrotum are edematous and weeping serous exudate. Partially opened serous blister lateral R elbow oozing moderate amt serous exudate. Full thickness pressure injury L elbow. Base of wound has 90% fibrinous slough with surrounding erythematous and macerated borders.(L)1.5cm x (W)1.5cm. Pt weeping from skin folds of abdomen and bilat groin. SKin folds are erythematous and macerated. Sacrum, R and L buttocks extending into both ischial tuberosities erythematous and macerated and is malodorous. Full thickness stage 4 pressure injury Sacrum. Base of wound beefy red with scattered Biofilm. Borders are macerated and indurated.Moderate amt serous exudate noted. Wound is malodorous.(L)9.3cm x (W)3.3cm x (D)0.3cm.Periwound skin is macerated. Full thickness stage 4 pressure injury L buttocks. Base of wound has 25% slough, 75% moist and viable. Borders are macerated with surrounding macerated skin. moderate amt serous exudate.Wound is malodorous.(L)0.8cm x (W)4.6cm x (D)0.2cm. Second pressure injury lower L buttocks with small amt Biofilm at base of wound.Borders are macerated (L)1.5cm x (W)4cm. Full thickness stage 3 pressure injury R buttocks. Base of wound moist, viable with trace amt of slough.(L)1.5cm x (W)1.7cm x (D)0.2cm. Full thickness stage 4 pressure injury R Ischium.Base of wound has 100% fibrinous slough with erythematous and macerated borders. Small amt seropurulent exudate noted.(L)1.5cm x (W)2cm. Full thickness stage 3 pressure injury noted to scrotum. [place] granulation with small amt of slough. Moderate amt serous exudate noted.(L)6.2cm x (W)1.8cm. Periwound scrotum is macerated.At very base of scrotum is small wound (L)0.6cm x (W)1.5cm. Base of wound is 50% beefy red,50% slough and moist oozing moderate amt sanguineous exudate. At the left of base of scrotum. Full thickness wound noted. Base of wound is beefy red and moist oozing moderate amt serous exudate. Borders are macerated.(L)2.5cm x (W)3.5cm. Unstageaqble pressure injury R heel that is malodorous. 100% soft necrosis at base of wound with semi- detached, erythematous and macerated borders.(L)3.9cm x (W)3.5cm Periwound is fluctuant and erythematous. Two additional pressure injuries lateral R heel in close proximity:#1 (L)0.8cm x (W)1cm. Base of wound is 100% soft necrosis.#2(L)0.7cm x (W)0.9cm. Base of wound is 100% soft necrosis. Wound Dorsal R 4th metatarsal that is 100%soft necrosis at base.(L)0.9cm x (W) 0.5cm. Wound dorso/lateral aspect of R 5th metatarsal that is 100% soft necrosis , erythematous margins.(L)3.8cm x (W)1cm. Ulcer noted in Web space of of R 4th and 5th metatarsals. Wound has 90% fibrinous slough and is malodorous.Smal amt seropurulent exudate noted. Full thickness ulcer Plantar R foot at base of 4th and 5th metatarsals. Base of wound 75% beefy granulation,25% slough. Borders are macerated. Small amt serous exudate noted (L)1.3cm x (W)3.6cm. Partial thickness wound lateral R foot.Base of wound is moist and viable .Small amt serous exudate noted.(L)0.6cm x (W)0.8cm. Full thickness wound noted to dorsal L foot. Base of wound 75% fibrinous slough , 25% batsheva.(L)1.5cm x (W)1cm. Periwound is macerated. Unstageable pressure injury lateral L heel. Base of wound is 90% necrotic, 10% batsheva (L)1.5cm x (W)1.3cm. Wound is malodorous. An area that is fluctuant with non-blanchable erythema noted to lateral /medial L foot.(L)3cm x (W)4cm. An area that is fluctuant with non-blanchable erythema noted to distal/lateral L foot.(L)2.5cm x (W)4cm. Tx.Plan: Cleanse Skin folds of abd and groin. Pat dry. Apply Moisture Barrier Paste to skin folds Twice daily. Place ABD Pads to R and L groin. Cleanse wounds R and L elbows with Saline. Apply TheraHoney. Apply Cavilon Skin Barrier Periwound. Cover with Optifoam drsg. Change Daily and prn. Cleanse Sacral wound with Saline. Apply Therahoney. Apply Moisture Barrier Paste periwound.Cover with Optifoam Drsg.Change Daily and prn. Cleanse wounds R buttocks and R ischium with Saline. Apply Therahoney. Apply Moisture Barrier Paste periwound. Cover with Optifoam drsg. Change Daily and prn. Apply Moisture Barrier paste to L buttocks and macerated areas with each incontinence care. Place OPEN Diaper under pt for moisture Absorption and change prn. Swab wounds L heel, Dorsal and Lateral L foot with Betadine. Cover with ABD pads and wrap With Kerlix Daily andprn. Apply Betadine to R 4th and5th metatarsals,including web spaces of 4th and 5th metatarsals. Separate toes with Gauze. Cover with ABd pads and wrap with Kerlix. Swab wound Plantar R foot ,R heel and Lateral R heel with Betadine.Cover with ABD pad and wrap with Kerlix Daily and prn. APM/RENETTA Mattress overlay. Reposition at least every 2hours or as tolerated. Place pillow behind knees to off-load heels. (2) Sepsis Assessment & Plan: Leukocytosis, anemia, lactic acidosis, abnormal labs Septic in ICU on 2 pressors Ill-appearing DNR/DNI Prognosis guarded Continue with IV antibiotics Continue with fluids Trend labs Wound care as below Will follow with recommendations Thank you for let me participate in patient's care (3) Feeding by G-tube Assessment & Plan: vDAILY ESTIMATED NEEDS: Needs based on Critical Care, wounds, 66kg 22-30 kcals/kg [id number] total kcals 1.25-2 g protein/kg 83-132 g total protein 25-30 mL/kg 3782-7344 total fluid mLs NUTRITION DIAGNOSIS: 1) Increased kcal/prot needs R/T wound healing and sepsis as evidenced by pt admitted w/ multiple wounds, eval pending, elevated WBC (17.6 trending down from critical levels), elevated BG, hypothermic on adm, on pressor support. 2) Swallowing difficulty R/T respiratory status as evidenced by pt vent dep via trach, PEG dep, NPO at this time. CURRENT TF:NPO ENTERAL NUTRITION RECOMMENDATIONS: Vital AF 1.2 @55ml x24 hrs to provide 1320ml, 1584kcal, 99g prot, 1071ml free H20 * As medically able w/ hemodynamic stability, rec GT feeds of Vital 1.2. * Start @15ml/hr for 6 hrs, advance as tolerated 10ml/hr q4-6 hrs to goal. * HOB >30 degrees/ water flushes per MD ADDITIONAL RECOMMENDATIONS: 1) Maintain calibrated bedscale weights: SNF wt 176# vs EMR wt 194# 2) Wound care w/ TF order: add Darryl 1pkt BID + Vit C 250mg daily F/up w/ WC eval 3) Feed w/ hemodynamic stability/ otherwise trophic feeds of 5-10ml/hr 4) Trend K (5.4); need for renal formula . Jimmy Tang Feb 22, 2019 14:49
[2019-02-22] MEDS ORDERED: Morphine Sulfate 10mg/ml Inj IVP ONE (15:00)
[2019-02-22] MEDS ORDERED: Albuterol/Ipratropium 3ml neb HHN PRN (15:45)
[2019-02-22] MEDS ORDERED: LORazepam Inj 2mg/ml 1ml IV PRN (16:00)
--- NOTE | 2019-02-22 18:21 | Internal Med Progress Note ---
Subjective Date of Service: Feb 22, 2019 Physician Name Samuel Caballero Attending Physician Aron Peña MD Current Medications Medications (Trade) Dose Ordered Sig/Sima Route PRN Reason Start Time Stop Time Status Last Admin Dose Admin Acetaminophen (Tylenol) 650 mg Q4H PRN ORAL T>100.5 02/22/19 15:45 03/21/19 19:44 Albuterol/ Ipratropium (Albuterol/ Ipratropium) 3 ml Q4H PRN HHN Shortness of Breath 02/22/19 15:45 02/24/19 19:44 Artificial Tears (Akwa-Tears) 1 drop QIDPRN PRN BOTH EYES Dry Eyes 02/22/19 15:30 03/24/19 15:29 Glycopyrrolate (Robinul) 0.1 mg Q6H PRN IV excessive secretions 02/22/19 16:00 03/24/19 15:59 Haloperidol Lactate (Haldol) 1 mg Q30M PRN IM Agitation 02/22/19 16:00 03/24/19 15:59 Lorazepam (Ativan 2mg/ml 1ml) 2 mg Q2H PRN IV For Anxiety 02/22/19 16:00 02/26/19 15:59 Miscellaneous Medication (Narcotic Drip Rate Change) 1 ea DAILY PRN MISC To Patient Comfort 02/23/19 09:00 02/28/19 08:59 Miscellaneous Medication (Narcotic Shift Volume) 1 ea Q12HR@0700,1900 MISC 02/22/19 19:00 03/24/19 18:59 Morphine Sulfate 30 ml @ 5 mls/hr INCOME T[employer] MANAGER Protocol PRN IV For Pain 02/22/19 15:00 02/24/19 10:59 Prochlorperazine (Compazine) 10 mg Q6H PRN ORAL Nausea & Vomiting 02/22/19 16:30 03/24/19 10:29 Allergies: Coded Allergies: OXYTETRACYCLINE (Unverified Allergy, Unknown, 09/05/13) PENICILLINS (Unverified Allergy, Unknown, 06/11/17) Tolerated one dose of Cefepime 06/07/17 Tolerated Cefdinir 06/10/17 Uncoded Allergies: PLASTIC TAPE (Allergy, Mild, ITCHINESS, 08/08/15) MEDICAL TAPE (Allergy, Unknown, 12/10/16) ROS Limited/Unobtainable: Yes Subjective 64 YO M admitted with respiratory distress. Now respiratory failure and pneumonia. Intubated and sedated. Cover for Sergio Peña. Comfort care Objective Last Vital Signs Date Time Temp Pulse Resp B/P (MAP) Pulse Ox O2 Delivery O2 Flow Rate FiO2 02/22/19 16:00 Mechanical Ventilator Mechanical Ventilator 02/22/19 15:28 93 6.0 28 02/22/19 15:00 95.0 73 18 82/38 (53) Laboratory Tests Test 02/21/19 19:40 02/21/19 23:25 02/22/19 06:10 02/22/19 08:55 Lactic Acid Level 2.30 mmol/L (0.4-2.0) H 2.10 mmol/L (0.66-2.22) 1.50 mmol/L (0.4-2.0) White Blood Count 12.7 K/UL (4.8-10.8) H Red Blood Count 2.67 M/UL (4.70-6.10) L Hemoglobin 7.6 G/DL (14.2-18.0) L Hematocrit 23.3 % (42.0-52.0) L Mean Corpuscular Volume 87 FL (80-99) Mean Corpuscular Hemoglobin 28.6 PG (27.0-31.0) Mean Corpuscular Hemoglobin Concent 32.8 G/DL (32.0-36.0) Red Cell Distribution Width 15.7 % (11.6-14.8) H Platelet Count 52 K/UL (150-450) L Mean Platelet Volume 7.5 FL (6.5-10.1) Neutrophils (%) (Auto) % (45.0-75.0) Lymphocytes (%) (Auto) % (20.0-45.0) Monocytes (%) (Auto) % (1.0-10.0) Eosinophils (%) (Auto) % (0.0-3.0) Basophils (%) (Auto) % (0.0-2.0) Differential Total Cells Counted 100 Neutrophils % (Manual) 83 % (45-75) H Lymphocytes % (Manual) 11 % (20-45) L Monocytes % (Manual) 4 % (1-10) Eosinophils % (Manual) 2 % (0-3) Basophils % (Manual) 0 % (0-2) Band Neutrophils 0 % (0-8) Platelet Estimate Decreased L Platelet Morphology Normal Hypochromasia 1+ Anisocytosis 1+ Sodium Level 141 MMOL/L (136-145) Potassium Level 3.8 MMOL/L (3.5-5.1) Chloride Level 108 MMOL/L (98-107) H Carbon Dioxide Level 24 MMOL/L (21-32) Anion Gap 9 mmol/L (5-15) Blood Urea Nitrogen 37 mg/dL (7-18) H Creatinine 0.7 MG/DL (0.55-1.30) Estimat Glomerular Filtration Rate > 60 mL/min (>60) Glucose Level 182 MG/DL (74-106) H Uric Acid 6.9 MG/DL (2.6-7.2) Calcium Level 8.1 MG/DL (8.5-10.1) L Phosphorus Level 3.6 MG/DL (2.5-4.9) Magnesium Level 1.9 MG/DL (1.8-2.4) Total Bilirubin 0.3 MG/DL (0.2-1.0) Aspartate Amino Transf (AST/SGOT) 84 U/L (15-37) H Alanine Aminotransferase (ALT/SGPT) 55 U/L (12-78) Alkaline Phosphatase 565 U/L (46-116) H Troponin I 0.000 ng/mL (0.000-0.056) C-Reactive Protein, Quantitative 12.1 mg/dL (0.00-0.90) H Pro-B-Type Natriuretic Peptide 5210 pg/mL (0-125) H Total Protein 5.4 G/DL (6.4-8.2) L Albumin 1.8 G/DL (3.4-5.0) L Globulin 3.6 g/dL Albumin/Globulin Ratio 0.5 (1.0-2.7) L Random Vancomycin Level 20.9 ug/mL Arterial Blood pH 7.404 (7.350-7.450) Arterial Blood Partial Pressure CO2 35.1 mmHg (35.0-45.0) Arterial Blood Partial Pressure O2 < 45.3 mmHg (75.0-100.0) Arterial Blood HCO3 21.5 mmol/L (22.0-26.0) L Arterial Blood Oxygen Saturation 75.1 % (95-100) *L Arterial Blood Base Excess -2.9 (-2-2) L Melvin Test Positive Microbiology Date/Time Source Procedure Growth Status 02/19/19 20:15 Blood Blood Culture - Final Serratia Marcescens Complete 02/19/19 20:00 Blood Blood Culture - Preliminary NO GROWTH AFTER 48 HOURS Resulted Intake and Output 02/21/19 02/22/19 19:00 07:00 Intake Total 1790.28 ml 1456.7 ml Output Total 2490 ml 1200 ml Balance -699.72 ml 256.7 ml IV Total 1790.28 ml 1456.7 ml Output Urine Total 2490 ml 1200 ml Assessment/Plan Problem List: (1) Intracerebral hemorrhage (2) Anasarca (3) HCAP (healthcare-associated pneumonia) Assessment & Plan: Continue meropenem and vanco per ID=Dr Rodriguez. Await sputum cultures. (4) Ventilator dependence Assessment & Plan: Pulmonary = Dr Rudd. Cont mech vent per pulm (5) Acute and chronic respiratory failure (6) Vegetative state Assessment/Plan Family requests comfort care. See pulmonary note. Samuel Caballero MD Feb 22, 2019 18:21
[2019-02-22] MEDS ORDERED: CLONAZEPAM0.25 MG GT (18:44)
[2019-02-22] MEDS ORDERED: MULTI-DELYN237 ML GT (18:44)
[2019-02-22] MEDS ORDERED: DULCOLAX10 MG RC (18:44)
[2019-02-22] MEDS ORDERED: MILK OF MA400 MG/51 GT (18:44)
[2019-02-22] MEDS ORDERED: ACETAMINOPHEN325 M1 GT (18:46)
[2019-02-22] MEDS ORDERED: Narcotic Shift Volume MISC SCH (19:00)
[2019-02-22] MEDS: Narcotic Shift Volume MISC SCH (19:01)
[2019-02-22] MEDS: PCA Morphine 1mg/ml 30 ML IV PRN (20:18)
[2019-02-22] MEDS ORDERED: Vancomycin 1.25gm/NS Premix IVPB SCH (22:00)
[2019-02-23] MEDS: PCA Morphine 1mg/ml 30 ML IV PRN ×2 (02:29→08:30)
[2019-02-23] MEDS: Narcotic Shift Volume MISC SCH ×2 (07:14→19:11)
[2019-02-23 08:00] VITALS: BP 55/33
[2019-02-23] MEDS ORDERED: Rate Change Narcotic Drip MISC PRN (09:00)
--- NOTE | 2019-02-23 11:11 | Internal Med Progress Note ---
Subjective Date of Service: Feb 23, 2019 Physician Name Samuel Caballero Attending Physician Aron Peña MD Current Medications Medications (Trade) Dose Ordered Sig/Sima Route PRN Reason Start Time Stop Time Status Last Admin Dose Admin Acetaminophen (Tylenol) 650 mg Q4H PRN ORAL T>100.5 02/22/19 15:45 03/21/19 19:44 Albuterol/ Ipratropium (Albuterol/ Ipratropium) 3 ml Q4H PRN HHN Shortness of Breath 02/22/19 15:45 02/24/19 19:44 Artificial Tears (Akwa-Tears) 1 drop QIDPRN PRN BOTH EYES Dry Eyes 02/22/19 15:30 03/24/19 15:29 Glycopyrrolate (Robinul) 0.1 mg Q6H PRN IV excessive secretions 02/22/19 16:00 03/24/19 15:59 Haloperidol Lactate (Haldol) 1 mg Q30M PRN IM Agitation 02/22/19 16:00 03/24/19 15:59 Lorazepam (Ativan 2mg/ml 1ml) 2 mg Q2H PRN IV For Anxiety 02/22/19 16:00 02/26/19 15:59 Miscellaneous Medication (Narcotic Drip Rate Change) 1 ea DAILY PRN MISC To Patient Comfort 02/23/19 09:00 02/28/19 08:59 Miscellaneous Medication (Narcotic Shift Volume) 1 ea Q12HR@0700,1900 MISC 02/22/19 19:00 03/24/19 18:59 02/23/19 07:14 Morphine Sulfate 30 ml @ 5 mls/hr REPAIRER SASH AND DOOR Protocol PRN IV For Pain 02/22/19 15:00 02/24/19 10:59 02/23/19 08:30 Prochlorperazine (Compazine) 10 mg Q6H PRN ORAL Nausea & Vomiting 02/22/19 16:30 03/24/19 10:29 Allergies: Coded Allergies: OXYTETRACYCLINE (Unverified Allergy, Unknown, 09/05/13) PENICILLINS (Unverified Allergy, Unknown, 06/11/17) Tolerated one dose of Cefepime 06/07/17 Tolerated Cefdinir 06/10/17 Uncoded Allergies: PLASTIC TAPE (Allergy, Mild, ITCHINESS, 08/08/15) MEDICAL TAPE (Allergy, Unknown, 12/10/16) ROS Limited/Unobtainable: Yes Subjective 64 YO M admitted with respiratory distress. Now respiratory failure and pneumonia. Intubated and sedated. Cover for Int Med-DR Peña. Comfort care Objective Last Vital Signs Date Time Temp Pulse Resp B/P (MAP) Pulse Ox O2 Delivery O2 Flow Rate FiO2 02/23/19 09:00 91.7 02/23/19 09:00 Trach Collar T-piece 02/23/19 08:30 88 8.0 30 02/23/19 08:00 60 10 55/33 (40) Microbiology Date/Time Source Procedure Growth Status 02/21/19 11:30 Blood Blood Culture - Preliminary NO GROWTH AFTER 24 HOURS Resulted 02/21/19 11:20 Blood Blood Culture - Preliminary NO GROWTH AFTER 24 HOURS Resulted Intake and Output 02/22/19 02/23/19 19:00 07:00 Intake Total 333.75 ml 50 ml Output Total 1440 ml 300 ml Balance -1106.25 ml -250 ml Intake Oral 0 ml IV Total 333.75 ml 50 ml Output Urine Total 1440 ml 300 ml # Bowel Movements 1 Assessment/Plan Problem List: (1) Intracerebral hemorrhage (2) Anasarca (3) HCAP (healthcare-associated pneumonia) Assessment & Plan: Continue meropenem and vanco per ID=Dr Rodriguez. Await sputum cultures. (4) Ventilator dependence Assessment & Plan: Pulmonary = Dr Rudd. Cont mech vent per pulm (5) Acute and chronic respiratory failure (6) Vegetative state Assessment/Plan Family requests comfort care. On Morphine drip. See pulmonary note. Samuel Caballero MD Feb 23, 2019 11:11
[2019-02-23 12:00] VITALS: BP 58/40
--- NOTE | 2019-02-23 13:03 | Infectious Diseases Prog Note ---
Assessment/Plan Assessment/Plan 64 yo amle with PMHx of Dementia DM, CVA and COPD who was sent to the ED from his SNF on 02/19/19 for SOB. Septic Shock UTI c/w bacteremia probable PNA CXR 02/19/19 shows B/L atelectasis vs PNA Urine Cx 02/19/19 - >100k GNR 02/19 1/8 S. marcences , probable Amp C (S cEftriaxone, MEropenem); 02/21 Bcx p Chronic respiratory failure on Vent S/P Trach Hypothermic; improving Leukocytosis; improving hx of ESBL and MRSA bacteremia early Jan 2019 Dementia DM HTN COPD CVA PLAN - Patient has been made comfort care and antibiotics were discontinued 02/22/19 SP IV Vancomycin and Meropenem #3 02/20/19 S/P Ertapemem #1 and Amikacin #1 ID will sign off now, please call back if needed. Subjective Allergies: Coded Allergies: OXYTETRACYCLINE (Unverified Allergy, Unknown, 09/05/13) PENICILLINS (Unverified Allergy, Unknown, 06/11/17) Tolerated one dose of Cefepime 06/07/17 Tolerated Cefdinir 06/10/17 Uncoded Allergies: PLASTIC TAPE (Allergy, Mild, ITCHINESS, 08/08/15) MEDICAL TAPE (Allergy, Unknown, 12/10/16) Subjective patient was made comfort care and antibiotics were discontinued Objective Vital Signs Last 24 Hour Vital Signs Date Time Temp Pulse Resp B/P (MAP) Pulse Ox O2 Delivery O2 Flow Rate FiO2 02/23/19 12:00 10 02/23/19 12:00 97.5 56 10 58/40 (46) 88 02/23/19 09:00 91.7 02/23/19 09:00 Trach Collar T-piece 02/23/19 08:30 88 Cool Aerosol 8.0 30 02/23/19 08:00 91.7 60 10 55/33 (40) 90 02/23/19 08:00 10 02/23/19 04:13 12 02/23/19 00:48 96 Cool Aerosol 8.0 30 02/22/19 23:56 14 02/22/19 21:31 Trach Collar T-piece 02/22/19 20:23 73 12 87 02/22/19 20:15 95.4 73 12 66/42 (50) 87 02/22/19 16:00 Mechanical Ventilator Mechanical Ventilator 02/22/19 15:28 93 Cool Aerosol 6.0 28 02/22/19 15:00 95.0 73 18 82/38 (53) 97 02/22/19 13:18 70 16 50 Height (Feet): 5 Height (Inches): 6.00 Weight (Pounds): 213 Objective Gen: On Vent HEENT: NCAT, MMM, PERRL, no scleral icterus NECK: supple, Intubated, No LAD, No JVD, Right IJ LUNGS: Coarse B/L, No W/C, CARDS: RRR, S1, S2, No M/R/G, ABD: Soft, NT, ND, No R/G, + BS, No HSM, No Masses, PEG ( No E/P) : Deferred Ext: C/C/E, Pulses 2+ B/L (DP, Rad): NEURO: Intuibated on Vent SKIN: Warm/dry, No rashes, B/L buttock ulcers Microbiology Date/Time Source Procedure Growth Status 02/21/19 11:30 Blood Blood Culture - Preliminary NO GROWTH AFTER 24 HOURS Resulted 02/21/19 11:20 Blood Blood Culture - Preliminary NO GROWTH AFTER 24 HOURS Resulted Current Medications Medications (Trade) Dose Ordered Sig/Sima Route PRN Reason Start Time Stop Time Status Last Admin Dose Admin Acetaminophen (Tylenol) 650 mg Q4H PRN ORAL T>100.5 02/22/19 15:45 03/21/19 19:44 Albuterol/ Ipratropium (Albuterol/ Ipratropium) 3 ml Q4H PRN HHN Shortness of Breath 02/22/19 15:45 02/24/19 19:44 Artificial Tears (Akwa-Tears) 1 drop QIDPRN PRN BOTH EYES Dry Eyes 02/22/19 15:30 03/24/19 15:29 Glycopyrrolate (Robinul) 0.1 mg Q6H PRN IV excessive secretions 02/22/19 16:00 03/24/19 15:59 Haloperidol Lactate (Haldol) 1 mg Q30M PRN IM Agitation 02/22/19 16:00 03/24/19 15:59 Lorazepam (Ativan 2mg/ml 1ml) 2 mg Q2H PRN IV For Anxiety 02/22/19 16:00 02/26/19 15:59 Miscellaneous Medication (Narcotic Drip Rate Change) 1 ea DAILY PRN MISC To Patient Comfort 02/23/19 09:00 02/28/19 08:59 Miscellaneous Medication (Narcotic Shift Volume) 1 ea Q12HR@0700,1900 MISC 02/22/19 19:00 03/24/19 18:59 02/23/19 07:14 Morphine Sulfate 30 ml @ 5 mls/hr PRESCHOOL AIDE Protocol PRN IV For Pain 02/22/19 15:00 02/24/19 10:59 02/23/19 08:30 Prochlorperazine (Compazine) 10 mg Q6H PRN ORAL Nausea & Vomiting 02/22/19 16:30 03/24/19 10:29 Nanci Kline M.D. Feb 23, 2019 13:03
--- NOTE | 2019-02-23 14:14 | Pulmonology Progress Note ---
Assessment/Plan Problems: (1) Chronic respiratory failure (2) Tracheostomy in place (3) Vegetative state Assessment/Plan continue morphine drip Subjective ROS Limited/Unobtainable: No Allergies: Coded Allergies: OXYTETRACYCLINE (Unverified Allergy, Unknown, 09/05/13) PENICILLINS (Unverified Allergy, Unknown, 06/11/17) Tolerated one dose of Cefepime 06/07/17 Tolerated Cefdinir 06/10/17 Uncoded Allergies: PLASTIC TAPE (Allergy, Mild, ITCHINESS, 08/08/15) MEDICAL TAPE (Allergy, Unknown, 12/10/16) Objective Last 24 Hour Vital Signs Date Time Temp Pulse Resp B/P (MAP) Pulse Ox O2 Delivery O2 Flow Rate FiO2 02/23/19 12:00 10 02/23/19 12:00 97.5 56 10 58/40 (46) 88 02/23/19 09:00 91.7 02/23/19 09:00 Trach Collar T-piece 02/23/19 08:30 88 Cool Aerosol 8.0 30 02/23/19 08:30 10 02/23/19 08:00 91.7 60 10 55/33 (40) 90 02/23/19 08:00 10 02/23/19 04:13 12 02/23/19 00:48 96 Cool Aerosol 8.0 30 02/22/19 23:56 14 02/22/19 21:31 Trach Collar T-piece 02/22/19 20:23 73 12 87 02/22/19 20:15 95.4 73 12 66/42 (50) 87 02/22/19 16:00 Mechanical Ventilator Mechanical Ventilator 02/22/19 15:28 93 Cool Aerosol 6.0 28 02/22/19 15:00 95.0 73 18 82/38 (53) 97 Intake and Output 02/22/19 02/23/19 18:59 06:59 Intake Total 483.75 ml 50 ml Output Total 1540 ml 300 ml Balance -1056.25 ml -250 ml Intake Oral 0 ml IV Total 483.75 ml 50 ml Output Urine Total 1540 ml 300 ml # Bowel Movements 1 Objective all family members are at the, pt is very comfortable Microbiology Date/Time Source Procedure Growth Status 02/21/19 11:30 Blood Blood Culture - Preliminary NO GROWTH AFTER 24 HOURS Resulted 02/21/19 11:20 Blood Blood Culture - Preliminary NO GROWTH AFTER 24 HOURS Resulted Current Medications Medications (Trade) Dose Ordered Sig/Sima Route PRN Reason Start Time Stop Time Status Last Admin Dose Admin Acetaminophen (Tylenol) 650 mg Q4H PRN ORAL T>100.5 02/22/19 15:45 03/21/19 19:44 Albuterol/ Ipratropium (Albuterol/ Ipratropium) 3 ml Q4H PRN HHN Shortness of Breath 02/22/19 15:45 02/24/19 19:44 Artificial Tears (Akwa-Tears) 1 drop QIDPRN PRN BOTH EYES Dry Eyes 02/22/19 15:30 03/24/19 15:29 Glycopyrrolate (Robinul) 0.1 mg Q6H PRN IV excessive secretions 02/22/19 16:00 03/24/19 15:59 Haloperidol Lactate (Haldol) 1 mg Q30M PRN IM Agitation 02/22/19 16:00 03/24/19 15:59 Lorazepam (Ativan 2mg/ml 1ml) 2 mg Q2H PRN IV For Anxiety 02/22/19 16:00 02/26/19 15:59 Miscellaneous Medication (Narcotic Drip Rate Change) 1 ea DAILY PRN MISC To Patient Comfort 02/23/19 09:00 02/28/19 08:59 Miscellaneous Medication (Narcotic Shift Volume) 1 ea Q12HR@0700,1900 MISC 02/22/19 19:00 03/24/19 18:59 02/23/19 07:14 Morphine Sulfate 30 ml @ 5 mls/hr MARKETING PROPOSAL SPECIALIST Protocol PRN IV For Pain 02/22/19 15:00 02/24/19 10:59 02/23/19 08:30 Prochlorperazine (Compazine) 10 mg Q6H PRN ORAL Nausea & Vomiting 02/22/19 16:30 03/24/19 10:29 Sagar Rudd MD Feb 23, 2019 14:14
--- NOTE | 2019-02-23 15:38 | Surgery Progress Note ---
Surgery Progress Note Subjective Additional Comments dnr/dni on morphine gtt Objective Last 24 Hour Vital Signs Date Time Temp Pulse Resp B/P (MAP) Pulse Ox O2 Delivery O2 Flow Rate FiO2 02/23/19 12:00 10 02/23/19 12:00 97.5 56 10 58/40 (46) 88 02/23/19 09:00 91.7 02/23/19 09:00 Trach Collar T-piece 02/23/19 08:30 88 Cool Aerosol 8.0 30 02/23/19 08:30 10 02/23/19 08:00 91.7 60 10 55/33 (40) 90 02/23/19 08:00 10 02/23/19 04:13 12 02/23/19 00:48 96 Cool Aerosol 8.0 30 02/22/19 23:56 14 02/22/19 21:31 Trach Collar T-piece 02/22/19 20:23 73 12 87 02/22/19 20:15 95.4 73 12 66/42 (50) 87 02/22/19 16:00 Mechanical Ventilator Mechanical Ventilator I&O Intake and Output 02/22/19 02/23/19 18:59 06:59 Intake Total 483.75 ml 50 ml Output Total 1540 ml 300 ml Balance -1056.25 ml -250 ml Intake Oral 0 ml IV Total 483.75 ml 50 ml Output Urine Total 1540 ml 300 ml # Bowel Movements 1 Dressing: other Wound: other Drains: other Cardiovascular: RSR Respiratory: decreased breath sounds Abdomen: soft, present bowel sounds Extremities: no cyanosis, other Plan Problems: (1) Decubitus skin ulcer Assessment & Plan: Patient presented on admission with generalized edemae, multiple pressure injuries and contractures. Pt weeping large amt serous exudate from both upper and both lower ext. Penis and scrotum are edematous and weeping serous exudate. Partially opened serous blister lateral R elbow oozing moderate amt serous exudate. Full thickness pressure injury L elbow. Base of wound has 90% fibrinous slough with surrounding erythematous and macerated borders.(L)1.5cm x (W)1.5cm. Pt weeping from skin folds of abdomen and bilat groin. SKin folds are erythematous and macerated. Sacrum, R and L buttocks extending into both ischial tuberosities erythematous and macerated and is malodorous. Full thickness stage 4 pressure injury Sacrum. Base of wound beefy red with scattered Biofilm. Borders are macerated and indurated.Moderate amt serous exudate noted. Wound is malodorous.(L)9.3cm x (W)3.3cm x (D)0.3cm.Periwound skin is macerated. Full thickness stage 4 pressure injury L buttocks. Base of wound has 25% slough, 75% moist and viable. Borders are macerated with surrounding macerated skin. moderate amt serous exudate.Wound is malodorous.(L)0.8cm x (W)4.6cm x (D)0.2cm. Second pressure injury lower L buttocks with small amt Biofilm at base of wound.Borders are macerated (L)1.5cm x (W)4cm. Full thickness stage 3 pressure injury R buttocks. Base of wound moist, viable with trace amt of slough.(L)1.5cm x (W)1.7cm x (D)0.2cm. Full thickness stage 4 pressure injury R Ischium.Base of wound has 100% fibrinous slough with erythematous and macerated borders. Small amt seropurulent exudate noted.(L)1.5cm x (W)2cm. Full thickness stage 3 pressure injury noted to scrotum. [place] granulation with small amt of slough. Moderate amt serous exudate noted.(L)6.2cm x (W)1.8cm. Periwound scrotum is macerated.At very base of scrotum is small wound (L)0.6cm x (W)1.5cm. Base of wound is 50% beefy red,50% slough and moist oozing moderate amt sanguineous exudate. At the left of base of scrotum. Full thickness wound noted. Base of wound is beefy red and moist oozing moderate amt serous exudate. Borders are macerated.(L)2.5cm x (W)3.5cm. Unstageaqble pressure injury R heel that is malodorous. 100% soft necrosis at base of wound with semi- detached, erythematous and macerated borders.(L)3.9cm x (W)3.5cm Periwound is fluctuant and erythematous. Two additional pressure injuries lateral R heel in close proximity:#1 (L)0.8cm x (W)1cm. Base of wound is 100% soft necrosis.#2(L)0.7cm x (W)0.9cm. Base of wound is 100% soft necrosis. Wound Dorsal R 4th metatarsal that is 100%soft necrosis at base.(L)0.9cm x (W) 0.5cm. Wound dorso/lateral aspect of R 5th metatarsal that is 100% soft necrosis , erythematous margins.(L)3.8cm x (W)1cm. Ulcer noted in Web space of of R 4th and 5th metatarsals. Wound has 90% fibrinous slough and is malodorous.Smal amt seropurulent exudate noted. Full thickness ulcer Plantar R foot at base of 4th and 5th metatarsals. Base of wound 75% beefy granulation,25% slough. Borders are macerated. Small amt serous exudate noted (L)1.3cm x (W)3.6cm. Partial thickness wound lateral R foot.Base of wound is moist and viable .Small amt serous exudate noted.(L)0.6cm x (W)0.8cm. Full thickness wound noted to dorsal L foot. Base of wound 75% fibrinous slough , 25% batsheva.(L)1.5cm x (W)1cm. Periwound is macerated. Unstageable pressure injury lateral L heel. Base of wound is 90% necrotic, 10% batshvea (L)1.5cm x (W)1.3cm. Wound is malodorous. An area that is fluctuant with non-blanchable erythema noted to lateral /medial L foot.(L)3cm x (W)4cm. An area that is fluctuant with non-blanchable erythema noted to distal/lateral L foot.(L)2.5cm x (W)4cm. Tx.Plan: Cleanse Skin folds of abd and groin. Pat dry. Apply Moisture Barrier Paste to skin folds Twice daily. Place ABD Pads to R and L groin. Cleanse wounds R and L elbows with Saline. Apply TheraHoney. Apply Cavilon Skin Barrier Periwound. Cover with Optifoam drsg. Change Daily and prn. Cleanse Sacral wound with Saline. Apply Therahoney. Apply Moisture Barrier Paste periwound.Cover with Optifoam Drsg.Change Daily and prn. Cleanse wounds R buttocks and R ischium with Saline. Apply Therahoney. Apply Moisture Barrier Paste periwound. Cover with Optifoam drsg. Change Daily and prn. Apply Moisture Barrier paste to L buttocks and macerated areas with each incontinence care. Place OPEN Diaper under pt for moisture Absorption and change prn. Swab wounds L heel, Dorsal and Lateral L foot with Betadine. Cover with ABD pads and wrap With Kerlix Daily andprn. Apply Betadine to R 4th and5th metatarsals,including web spaces of 4th and 5th metatarsals. Separate toes with Gauze. Cover with ABd pads and wrap with Kerlix. Swab wound Plantar R foot ,R heel and Lateral R heel with Betadine.Cover with ABD pad and wrap with Kerlix Daily and prn. APM/RENETTA Mattress overlay. Reposition at least every 2hours or as tolerated. Place pillow behind knees to off-load heels. (2) Sepsis Assessment & Plan: Leukocytosis, anemia, lactic acidosis, abnormal labs Septic in ICU on 2 pressors Ill-appearing DNR/DNI Prognosis guarded Continue with IV antibiotics Continue with fluids Trend labs Wound care as below Will follow with recommendations Thank you for let me participate in patient's care (3) Feeding by G-tube Assessment & Plan: vDAILY ESTIMATED NEEDS: Needs based on Critical Care, wounds, 66kg 22-30 kcals/kg 2665-1428 total kcals 1.25-2 g protein/kg 83-132 g total protein 25-30 mL/kg 6590-7427 total fluid mLs NUTRITION DIAGNOSIS: 1) Increased kcal/prot needs R/T wound healing and sepsis as evidenced by pt admitted w/ multiple wounds, eval pending, elevated WBC (17.6 trending down from critical levels), elevated BG, hypothermic on adm, on pressor support. 2) Swallowing difficulty R/T respiratory status as evidenced by pt vent dep via trach, PEG dep, NPO at this time. CURRENT TF:NPO ENTERAL NUTRITION RECOMMENDATIONS: Vital AF 1.2 @55ml x24 hrs to provide 1320ml, 1584kcal, 99g prot, 1071ml free H20 * As medically able w/ hemodynamic stability, rec GT feeds of Vital 1.2. * Start @15ml/hr for 6 hrs, advance as tolerated 10ml/hr q4-6 hrs to goal. * HOB >30 degrees/ water flushes per MD ADDITIONAL RECOMMENDATIONS: 1) Maintain calibrated bedscale weights: SNF wt 176# vs EMR wt 194# 2) Wound care w/ TF order: add Darryl 1pkt BID + Vit C 250mg daily F/up w/ WC eval 3) Feed w/ hemodynamic stability/ otherwise trophic feeds of 5-10ml/hr 4) Trend K (5.4); need for renal formula . Jimmy Tang Feb 23, 2019 15:38
[2019-02-23 20:00] VITALS: BP 41/17
[2019-02-24] MEDS: PCA Morphine 1mg/ml 30 ML IV PRN ×2 (02:15→08:15)
[2019-02-24] MEDS: Narcotic Shift Volume MISC SCH (07:00)
[2019-02-24 08:00] VITALS: BP 41/12
--- NOTE | 2019-02-25 15:21 | Discharge Summary ---
Discharge Summary Discharge Summary _ SUMMARY DATE OF ADMISSION: 02/19/2019 DATE OF EXPIRATION: 02/24/2019 REASON FOR ADMISSION: 64 years old male with past medical history of COPD, CVA, diabetes mellitus, hypertension, dementia, was brought from the assisted facility due to respiratory distress. Patient with chronic ventilator dependent respiratory failure and tracheostomy status. Patient was bagged by EMS. No reported fever or chills. No reported cough. Vital signs revealed tachypnea and severe hypothermia. Laboratory work-up revealed leukocytosis 17.8, hemoglobin 9.0, hematocrit 25.9, platelet count 111. Sodium 128, potassium 6.3. BUN 68, creatinine 0.9. Glucose 166. Lactic acid 3.5. Troponin negative. Pro BNP 1679. EKG revealed sinus rhythm , no acute ischemic changes. AST 77 , ALT 52 , alkaline phosphatase 230. Albumin 1.2 . Urinalysis revealed +3 protein and evidence of urinary tract infection. Chest x-ray demonstrated increased opacification of the left hemithorax , likely representing combination of pleural effusion and atelectasis versus pneumonia. Increased right pleural effusion with atelectasis versus pneumonia. Pulmonary edema. Blood pressure was dropping . Patient had no peripheral access . Subsequently central line via right internal jugular vein was placed under ultrasound guidance. P Correct placement was confirmed on chest x-ray. Patient received fluid challenge , pancultured and started on empiric antibiotics. Hyperkalemia was treated with calcium/insulin/D50. Patient started on Levophed drip and admitted to ICU for further management. CONSULTANTS: pulmonary/critical care Dr. Blaire VIEYRA specialist ebd teacher Dr. [facility] COURSE: Patient admitted to ICU. Patient was on pressor/Levophed titrated to keep mean arterial blood pressure above 65. Ventilator support and tracheostomy care provided. Warming measures instituted. Patient was followed-up with ABG and chest x-ray. Patient started on empiric antibiotic and trial of hydrocortisone. Patient subsequently required initiation of another pressor/phenylephrine. Hemodynamic status was closely monitored and remained unstable. Echocardiogram demonstrated normal left ventricular chamber size, systolic function and wall motion. Estimated left ventricular ejection fraction 55 to 60%. Mild mitral regurgitation. ID specialist followed. Initial blood cultures were negative. Urine culture revealed Morganella. Repeated blood cultures revealed Serratia and blood culture on revealed no evidence of growth. Patient demonstrated initially worsening leukocytosis and then leukocytosis started to trend down. Hypothermia initially improved, but then patient started to be hypothermic again, Strict aspiration precaution maintained. G-tube feeding continued. Tube feeding formula with goal rate along with protein supplements provided as per certified registered locksmith recommendation. Renal parameters and electrolytes were closely monitored. Electrolytes corrected as needed , and nephrotoxic's were avoided. Patient presented on admission with multiply decubitus ulcers. Wound care provided as per surgeon recommendation. On 02/21/19 code status was changed to DNR/DNI after discussion with patient's . Further goals of care and poor prognosis were later discussed with patient . Patient's decided on comfort care and end-of-life care. Patient was in this condition for the last 5 years and there was no chance for meaningful recovery. All medication were stopped. Patient started on comfort care and morphine drip. Patient condition was deteriorating . He was pronounced on 02/24/19 at 10:20 AM. Cause of : cardiopulmonary arrest FINAL DIAGNOSES: Sepsis with Serratia bacteremia Septic shock UTI Probably healthcare associated pneumonia Acute on chronic respiratory failure with ventilator dependency Vegetative state Dysphagia, feeding by G-tube Cerebrovascular disease with history of CVA/intracerebral hemorrhage History of hypertension Diabetes mellitus COPD Comfort care Multiple decubitus ulcers, present on admission I have been assigned to dictate discharge summary for this account. I was not involved in the patient's management. Taylor Bernard NP Feb 25, 2019 15:21
== END 2019-02-24 10:20 | disposition expired | DRG 720 ==
LOC: EDBD 13:53 → EMR 14:22 → ICU 14:35 → EDBEDREQ 14:38 → EDBEDREQSVC 14:38 → EDBEDREQ 16:07 → 4E 02-22 15:21
PROC: 5A1945Z Respiratory Ventilation, 24-96 Consecutive Hours (ICD-10-PCS; principal; 2019-02-19)
PROC: 05HM33Z Insertion of Infusion Device into Right Internal Jugular Vein, Percutaneous Approach (ICD-10-PCS; 2019-02-19)
DX: A41.4 Sepsis due to anaerobes (principal); A41.53 Sepsis due to Serratia; R65.21 Severe sepsis with septic shock; Z51.5 Encounter for palliative care; J18.9 Pneumonia, unspecified organism; Y95 Nosocomial condition; Z88.0 Allergy status to penicillin; Z88.8 Allergy status to other drugs, medicaments and biological substances; J44.9 Chronic obstructive pulmonary disease, unspecified; Z86.73 Personal history of transient ischemic attack (TIA), and cerebral infarction without residual deficits; F03.90 Unspecified dementia, unspecified severity, without behavioral disturbance, psychotic disturbance, mood disturbance, and anxiety; R68.0 Hypothermia, not associated with low environmental temperature; Z66 Do not resuscitate; N39.0 Urinary tract infection, site not specified; Z99.11 Dependence on respirator [ventilator] status; J96.20 Acute and chronic respiratory failure, unspecified whether with hypoxia or hypercapnia; N17.9 Acute kidney failure, unspecified; R40.3 Persistent vegetative state; I69.10 Unspecified sequelae of nontraumatic intracerebral hemorrhage; R13.10 Dysphagia, unspecified; E11.9 Type 2 diabetes mellitus without complications; L89.90 Pressure ulcer of unspecified site, unspecified stage; I69.398 Other sequelae of cerebral infarction; Z43.0 Encounter for attention to tracheostomy; L89.154 Pressure ulcer of sacral region, stage 4; L89.324 Pressure ulcer of left buttock, stage 4; L89.313 Pressure ulcer of right buttock, stage 3; L89.894 Pressure ulcer of other site, stage 4; L89.620 Pressure ulcer of left heel, unstageable; L89.893 Pressure ulcer of other site, stage 3
CPT/HCPCS: 36415; 36600; 71045; 80053; 80061; 80150; 80202; 81003; 82140; 82248; 82550; 82553; 82607; 82728; 82746; 82803; 82962; 82977; 83036; 83540; 83550; 83605; 83735; 83880; 84100; 84443; 84484; 84550; 85007; 85025; 86140; 87040; 87081; 87086; 87181; 93306; 94002; 94003; 94664; 96361; 96365; 96366; 96367; 96375; 99291; J1815; J2370; J7030